=== PATIENT | female | born 1955 | race Caucasian/White ===

== ENCOUNTER → 2016-04-08 | Outpatient (CLI) | payer OTHER ==
[~2016-04-08] MED LIST: ADVIN25/60 INH; ATOR-54 PO; AZEL0.15 NAE; BISA-16 PO; BTP80 PO; BUPR-267 PO; CEFU1TAB36 PO; CLB100 PO; CMD5 PO; CYM/30 PO; GLIM4TAB2 PO; IMD/2 PO; L-ME1CAP3 PO; LEVA1.255 INH; LEVA45AE INH; LOSA1TAB PO; LPR100 PO; LPR25 PO; MAGNTAB4 PO; METF1000 PO; METO-217 PO; METO-551 PO; METO25TA3 PO; METO50TA16 PO; METO50TA7 PO; MONT1TAB3 PO; MULT-790 PO; ONDA4TAB46 PO; OXYC1TAB3 PO; POTA-335 PO; POTA-65 PO; POTA20TA16 PO; ROPI0.5T15 PO; SPRIN/30 INH; TIOTCAP INH; TRIA1SPR9 NAE; TYLER650 PO; VERA120T65 PO; WARF1TAB PO; XPNIN INH; ZNTT/150 PO; [UNRECOGNIZED DRUG - OTHER] PO
== END | disposition home or self-care (01) ==
LOC: C.LABSPEC 11:13
PROVIDERS: ATTEND Podiatrist Foot & Ankle Surgery
DX: L60.0 Ingrowing nail (principal)

== ENCOUNTER 2016-05-03 23:27 | Inpatient (IN) | payer OTHER ==
[~2016-05-03] VITALS: Ht 165.1 cm; Wt 133.6 kg
[~2016-05-03 23:27] MED LIST changes: -AZEL0.15 NAE; -BISA-16 PO; -BTP80 PO; -CEFU1TAB36 PO; -CLB100 PO; -CMD5 PO; -LEVA45AE INH; -LPR100 PO; -LPR25 PO; -METO-217 PO; -METO25TA3 PO; -METO50TA16 PO; -METO50TA7 PO; -POTA-65 PO; -POTA20TA16 PO; -SPRIN/30 INH; -TRIA1SPR9 NAE; -VERA120T65 PO; -[UNRECOGNIZED DRUG - OTHER] PO
[2016-05-03] MEDS ORDERED: KETOROLAC TROMETHAMINE 30 MG/ML VIAL IV STA (23:40)
[2016-05-03] MEDS ORDERED: SODIUM CHLORIDE 0.9% 500ML 500 ML IV STA (23:40)
[2016-05-03] MEDS ORDERED: HYDROmorphone INJ 2 MG/ML SYR/VIAL IV STA (23:40)
--- NOTE | 2016-05-03 23:41 | EMERGENCY ROOM VISIT NOTE ---
History Report prepared by Juan Antonio: Thaddeus Bender Under the Supervision of: Dr. Yumiko No D.O. First contact with patient: 23:32 Chief Complaint: FLANK PAIN Stated Complaint: FLANK PAIN/NAUSEA History of Present Illness The patient is a 60 year old female who presents to the Emergency Room with complaints of persistent severe right flank pain that started at approximately [id number] tonight. The patient notes that the pain started suddenly and radiates to the right lower quadrant of her abdomen. She denies hematuria. The patient was given 5 mg Morphine and 4 mg Zofran in the ambulance en route to the ED, which barely helped. The patient also had 5 mg Oxycodone tonight after dinner, which she is prescribed for neuropathy. The patient denies any history of kidney stones. She has never had pain like this before. She denies any recent strenuous activities. The patient notes that she has had protein in her urine for the past several days. She had a urine sample collected with [facility] earlier today with results pending. The patient denies any history of bowel obstruction. She does have a history of GERD and gastroparesis and is s/p cholecystectomy. Source of History: patient Onset: [id number] tonight Position: back (right flank) Symptom Intensity: severe Timing: other (persistent) Modifying Factors (Relieving): narcotics Associated Symptoms: + abdominal pain, No urinary symptoms Review of Systems See HPI for pertinent positives & negatives. A total of 10 systems reviewed and were otherwise negative. Past Medical & Surgical Medical Problems: (1) Asthma (2) Breast cancer (3) Degeneration of cervical intervertebral disc (4) Depressive disorder (5) Diabetes mellitus, type II (6) DVT (deep venous thrombosis) (7) Fibromyalgia (8) Gastroesophageal reflux disease (9) History of breast cancer (10) History of DVT (deep vein thrombosis) (11) Hypertension (12) Lymphedema (13) Migraine headache (14) Obstructive sleep apnea syndrome (15) Restless legs syndrome (16) Right ureteral calculus (17) Ureteral calculus of right kidney transplant Surgical Problems: (1) Status post cholecystectomy (2) Status post partial mastectomy Family History FHx: cancer FHx: diabetes FHx: heart disease FHx: hypertension Social History Smoking Status: Former Smoker Alcohol Use: none Marital Status: Housing Status: lives with significant other Occupation Status: retired Current/Historical Medications Scheduled Acetaminophen (Tylenol Arthitis Ext Rel), 1,300 MG PO QPM Atorvastatin (Lipitor), 20 MG PO HS Azelastine Hcl (Astepro), 2 SPRY MISHEL BID Celecoxib (Celebrex), 100 MG PO BID Duloxetine HCl (Cymbalta), 60 MG PO QAM Duloxetine Hcl (Cymbalta), 30 MG PO HS Fluticasone Prop/Salmeterol (Advair Diskus 250/50 60 Dose), 1 PUFF INH BID Glimepiride (Glimepiride), 4 MG PO DAILY L-Methylfolate W/ Algae-Vitami (Metanx), 1 CAP PO BID Loperamide Hcl (Imodium), 2 MG PO PRN Magnesium Chloride (Slow-Mag Tab), 3 TAB PO QAM Magnesium Chloride (Slow-Mag Tab), 2 TABS PO QPM Metformin Hcl (Glucophage), 1,000 MG PO BID Metoprolol Tartrate (Lopressor), 50 MG PO BID Montelukast Sodium (Singulair), 10 MG PO HS Multiple Vitamin (Multi-Vitamin Daily), 1 TAB PO DAILY Oxycodone Immediate Rel Tab (Roxicodone Ir), 5 MG PO BID Potassium Ext Rel (Klor-Con), 20 MEQ PO BID Ranitidine (Zantac), 1 TAB PO BID Tiotropium [place] (Spiriva Handihaler), 1 CAP INH DAILY Warfarin Sodium (Coumadin), 1 MG PO DAILY Scheduled PRN Levalbuterol Hcl (Levalbuterol), 1.25 MG INH Q4 PRN for Wheezing Levalbuterol Tartrate (Levalbuterol Tartrate Hfa), 2 PUFFS INH Q4 PRN for SOB/ Wheezing Ropinirole (Requip), 0.5 MG PO HS PRN for restless legs Allergies Coded Allergies: Codeine (Verified Allergy, Intermediate, ITCHY AND RASH, 05/04/16) Erythromycin (Verified Allergy, Intermediate, CONTINUOUS IMPROVEMENT ENGINEER STOMACH CRAMPS, ) Potassium Chloride (Verified Allergy, Intermediate, ITCHY AND RASH, ) Amitriptyline (Verified Allergy, Mild, SWELLING, 05/04/16) Sitagliptin (Verified Allergy, Mild, Swelling , 05/04/16) Doxepin (Verified Allergy, Unknown, ., 05/04/16) Gabapentin (Unverified Allergy, Unknown, swelling, 05/04/16) Hyoscyamine (Verified Allergy, Unknown, ., 05/04/16) Phenylephrine (Verified Allergy, Unknown, 05/04/16) RASH FROM HYCOMINE (CONTAINS BOTH) NOT ALLERGIC TO HYDROCODONE COMPONENT BECAUSE TAKES VICODIN AT HOME Uncoded Allergies: ADHESIVE TAPE (Allergy, Intermediate, RASH AND ITCHING, 02/03/12) TRICYCLICS (Allergy, Intermediate, SWELLING ARM AND LEGS, 02/03/12) vagisil (Allergy, Mild, reddness, 05/15/13) Physical Exam Vital Signs Date Time Temp Pulse Resp B/P Pulse Ox O2 Delivery O2 Flow Rate FiO2 05/04/16 01:51 100 20 145/82 94 Room Air 05/03/16 23:41 95 05/03/16 23:36 36.4 90 19 170/91 100 Room Air Physical Exam General: Obese female that appears extremely uncomfortable and diaphoretic. HEENT: Head - normocephalic and atraumatic Pupils are equal, round, and reactive to light. Extraocular eye muscles are intact, and sclera are anicteric. Nose - moist nasal mucosa without discharge. Mouth - moist buccal mucosa. Oropharynx is nonerythematous and there is no tonsillar exudate or edema noted. Neck: Supple; no JVD, nuchal rigidity, cervical lymphadenopathy. Heart: Tachycardic rate. Heart sounds distant secondary to body habitus. There is a normal S1 and S2 with no murmurs, clicks, or gallops appreciated. Lungs: Clear to auscultation bilaterally with no wheezes, rales, or rhonchi. Abdomen: Soft,nondistended, with good bowel sounds. There are no palpable pulsatile masses or hepatosplenomegaly. There is no guarding, rigidity, or rebound noted. Right CVA tenderness without skin lesions in that area. Extremities: No evidence of cyanosis, clubbing, or edema. There are easily palpable peripheral pulses. Skin: warm and dry with good turgor and no rashes. Medical Decision & Procedures ER Provider Diagnostic Interpretation: CT results as stated below per my review and radiologist interpretation: CT ABDOMEN & PELVIS: Comparison CT abdomen and pelvis 10/19/2011. 11 mm obstructing calculus in the proximal right ureter causing mild right hydronephrosis with perinephric edema. Few nonobstructing right renal calculi. Small nonobstructing bilateral renal cysts. Enlarged liver with hepatic steatosis. Stable borderline splenomegaly. Gallbladder is surgically absent. No free air. No free fluid. Bowel is normal caliber. Appendix is normal. Radiologist Pedro Albright MD Laboratory Results 05/03/16 23:57 Red Blood Count 4.05, Mean Corpuscular Volume 92.6, Mean Corpuscular Hemoglobin 30.1, Mean Corpuscular Hemoglobin Concent 32.5, Mean Platelet Volume 10.6, Neutrophils (%) (Auto) 79.1, Lymphocytes (%) (Auto) 13.6, Monocytes (%) (Auto) 4.8, Eosinophils (%) (Auto) 1.0, Basophils (%) (Auto) 0.4, Neutrophils # (Auto) 6.48, Lymphocytes # (Auto) 1.11, Monocytes # (Auto) 0.39, Eosinophils # (Auto) 0.08, Basophils # (Auto) 0.03 05/03/16 23:57 Test 05/03/16 23:57 05/04/16 02:05 White Blood Count 8.18 K/uL (4.8-10.8) Red Blood Count 4.05 M/uL (4.2-5.4) Hemoglobin 12.2 g/dL (12.0-16.0) Hematocrit 37.5 % (37-47) Mean Corpuscular Volume 92.6 fL (80-100) Mean Corpuscular Hemoglobin 30.1 pg (25-34) Mean Corpuscular Hemoglobin Concent 32.5 g/dl (32-36) Platelet Count 252 K/uL (130-400) Mean Platelet Volume 10.6 fL (7.4-10.4) Neutrophils (%) (Auto) 79.1 % Lymphocytes (%) (Auto) 13.6 % Monocytes (%) (Auto) 4.8 % Eosinophils (%) (Auto) 1.0 % Basophils (%) (Auto) 0.4 % Neutrophils # (Auto) 6.48 K/uL (1.4-6.5) Lymphocytes # (Auto) 1.11 K/uL (1.2-3.4) Monocytes # (Auto) 0.39 K/uL (0.11-0.59) Eosinophils # (Auto) 0.08 K/uL (0-0.5) Basophils # (Auto) 0.03 K/uL (0-0.2) RDW Standard Deviation 51.5 fL (36.4-46.3) RDW Coefficient of Variation 15.2 % (11.5-14.5) Immature Granulocyte % (Auto) 1.1 % Immature Granulocyte # (Auto) 0.09 K/uL (0.00-0.02) Prothrombin Time 10.3 SECONDS (9.0-12.0) Prothromb Time International Ratio 1.0 (0.9-1.1) Activated Partial Thromboplast Time 25.4 SECONDS (21.0-31.0) Partial Thromboplastin Ratio 1.0 Anion Gap 11.0 mmol/L (3-11) Est Creatinine Clear Calc Drug Dose 70.2 ml/min Estimated GFR () 57.3 Estimated GFR (Non- 49.4 BUN/Creatinine Ratio 14.1 (10-20) Calcium Level 9.6 mg/dl (8.5-10.1) Urine Color YELLOW Urine Appearance SL CLOUDY (CLEAR) Urine pH 5.5 (4.5-7.5) Urine Specific [place] >= 1.030 (1.000-1.030) Urine Protein TRACE (NEG) Urine Glucose (UA) NEG (NEG) Urine Ketones TRACE (NEG) Urine Occult Blood TRACE (NEG) Urine Nitrite NEG (NEG) Urine Bilirubin NEG (NEG) Urine Urobilinogen NEG (NEG) Urine Leukocyte Esterase SMALL (NEG) Urine RBC 0-4 /hpf (0-4) Urine WBC 10-30 /hpf (0-5) Urine Epithelial Cells 20-30 /lpf (0-5) Urine Bacteria NEG (NEG) Laboratory results per my review. Medications Administered Medications (Trade) Dose Ordered Sig/Tiburcio Route Start Time Stop Time Status Last Admin Dose Admin Hydromorphone HCl (Dilaudid Inj) 2 mg NOW STAT IV 05/03/16 23:40 05/03/16 23:41 DC 05/03/16 23:45 2 MG Ketorolac Tromethamine 30 mg 30 mg NOW STAT IV 05/03/16 23:40 05/03/16 23:41 DC 05/03/16 23:46 30 MG Sodium Chloride 500 ml @ 999 mls/hr Q31M STAT IV 05/03/16 23:40 05/04/16 00:10 DC 05/03/16 23:45 999 MLS/HR Sodium Chloride (Nss 1000ml) 1,000 ml @ 250 mls/hr Q4H STAT IV 05/04/16 02:20 05/04/16 06:13 DC 05/04/16 02:56 250 MLS/HR Hydromorphone HCl (Dilaudid Inj) 1 mg NOW STAT IV 05/04/16 03:01 05/04/16 03:02 DC 05/04/16 03:06 1 MG Acetaminophen (Tylenol Tab) 650 mg Q4H PRN PO 05/04/16 04:00 06/03/16 03:59 05/04/16 05:44 650 MG Procedure Medications administered include NSS IV, Toradol IV, Dilaudid IV. ED Course 2334: Past medical records reviewed. The patient was evaluated in room B5. A complete history and physical exam was performed. IV lock was established. Labs were drawn as above. 2340: NSS 500 ml @ 999 mls/hr, Toradol 30 mg IV, Dilaudid 2 mg IV. She will go for CT scan of the abdomen/pelvis. 0050: The patient is currently pain free. She just got back from CT scan. 0154: Checked on the patient. 0220: NSS 1000 ml @ 250 mls/hr. 0301: Dilaudid 1 mg IV. 0312: Spoke with the patient's . I reviewed the results of the labs and CT scan with the patient. 0315: Discussed the case with Dr. Leslie, [facility]. The patient will be evaluated. 0328: Updated the patient. She understands and agrees with the plan. Medical Decision The patient is a 60 year old female who presents to the ED with right flank pain. Differential diagnosis includes pyelonephritis, ureteral colic, infected kidney stone, colitis, obstructive uropathy. Laboratory interpretation: no leukocytosis, stable H&H, normal renal function with creatinine 1.2, glucose 216. Urine contained trace ketones and blood, small leukocyte esterase, 10-30 white blood cells, negative bacteria. This is a 60-year-old female patient presents to the emergency department with severe right flank pain. CT scan shows evidence of a 11 mm right-sided stone. The patient had been previously followed by nephrology for proteinuria. Catheterized urine specimen was not convincing for urinary tract infection. The patient required multiple doses of IV analgesia. I discussed the case with the [facility] Hospitalist and they will evaluate for further management. Consults Time Called: [phone] Consulting Physician[facility] Returned Call: [phone]: [facility] The patient will be evaluated. Impression Primary Impression: Calculus of proximal right ureter Scribe Attestation The scribe's documentation has been prepared under my direction and personally reviewed by me in its entirety. I confirm that the note above accurately reflects all work, treatment, procedures, and medical decision making performed by me. Departure Information Dispostion Being Evaluated By Hospitalist Referrals No Doctor, Assigned (PCP) Patient Instructions My [facility]
[2016-05-03] MEDS ORDERED: CLB100 PO (23:59)
[2016-05-04] VITALS (12 sets, daily range): BP systolic 110–168; BP diastolic 59–82; PULSE 92–137; TEMP 36.6–37.1; O2SAT 91–95; Ht 165.1 cm; Wt 133.6 kg
[2016-05-04] MEDS ORDERED: MAGNTAB4 PO (00:01)
[2016-05-04] MEDS ORDERED: LEVA45AE INH (00:03)
[2016-05-04] MEDS ORDERED: POTA20TA16 PO (00:04)
[2016-05-04] MEDS ORDERED: SPRIN/30 INH (00:06)
[2016-05-04] MEDS ORDERED: AZEL0.15 NAE (00:08)
[2016-05-04 00:16] LABS: BASO % 0.4 %; BASO ABS # 0.03 K/uL (0-0.2); COMPLETE YES; HEMATOCRIT 37.5 % (37-47); IG% 1.1 %; LYMPH % 13.6 %; LYMPH ABS # 1.11 K/uL (1.2-3.4); MEAN CELL VOLUME 92.6 fL (80-100); MEAN CORPUSCULAR HEMOGLOBIN 30.1 pg (25-34); MEAN CORPUSCULAR HGB CONC 32.5 g/dl (32-36); MEAN PLATELET VOLUME 10.6 fL (7.4-10.4); MONO % 4.8 %; NEUT % 79.1 %; PLATELET COUNT 252 K/uL (130-400); RED BLOOD COUNT 4.05 M/uL (4.2-5.4); WHITE BLOOD COUNT 8.18 K/uL (4.8-10.8)
[2016-05-04 00:29] LABS: BUN/CREATININE RATIO 14.1 (10-20); CALCIUM 9.6 mg/dl (8.5-10.1); CREATININE 1.2 mg/dl (0.60-1.20); POTASSIUM 4.3 mmol/L (3.5-5.1)
[2016-05-04 02:15] LABS: MANUAL MICROSCOPIC REQUIRED? YES; URINE APPEARANCE SL CLOUDY (CLEAR); URINE COLOR YELLOW; URINE NITRITE NEG (NEG); URINE PH 5.5 (4.5-7.5); URINE SPECIFIC GRAVITY >= 1.030 (1.000-1.030); UROBILINOGEN NEG (NEG)
[2016-05-04] MEDS ORDERED: SODIUM CHLORIDE 0.9% 1000ML 1,000 ML IV STA (02:20)
[2016-05-04 02:21] LABS: REVIEW REQ? NO
[2016-05-04 02:22] LABS: URINE BILIRUBIN NEG (NEG)
[2016-05-04 02:24] LABS: URINE BACTERIA NEG (NEG); URINE RBC 0-4 /hpf (0-4)
[2016-05-04] MEDS ORDERED: HYDROmorphone INJ 1 MG/ML SYR IV STA (03:01)
[2016-05-04 03:31] LABS: PROTHROMBIN TIME (PATIENT) 10.3 SECONDS (9.0-12.0)
[2016-05-04] MEDS ORDERED: DEXTROSE 50% 50 ML SYR IV PRN (04:00)
[2016-05-04] MEDS ORDERED: GLUCOSE 10 TABS/TUBE PO PRN (04:00)
[2016-05-04] MEDS ORDERED: GLUCOSE 40% GEL 15 GM TUBE PO PRN (04:00)
[2016-05-04] MEDS ORDERED: GLUCAGON FOR INJ 1 MG VIAL SQ PRN (04:00)
[2016-05-04] MEDS ORDERED: ROPINIROLE HCL 1 MG TAB PO PRN (04:15)
[2016-05-04] MEDS ORDERED: IV FLUIDS COMPLETED PRN ×2 (04:15→05:15)
--- NOTE | 2016-05-04 04:18 | History and Physical ---
History & Physical Date & Time of Service: May 04, 2016 at 04:05 Chief Complaint: Flank Pain/Nausea Primary Care Physician: Hortensia Crane M.D. History of Present Illness Source: patient 60 yoF with acute onset of nausea and R flank pain earlier this evening, found to have an 11mm obstructing calculus in R ureter. She describes nausea without vomiting and had severe R flank pain that wrapped around her side and down into her groin area. She denies any gross blood, and was recently being worked up by Dr. Joseph for proteinuria. She denies a history of nephrolithiasis in past. Past Medical/Surgical History Medical Problems: (1) Asthma Status: Chronic (2) Breast cancer Permanent Comment: Abnormal left breast mammogram 07/24/2010 Ultrasound-guided biopsy with finding of invasive adenocarcinoma Estrogen receptor negative, progesterone receptor negative, HER-2/mario negative Family history with genetic testing positive for BRCA1 mutation Status post bilateral mastectomies left breast stage pT3 pN2a M0 Immediate breast reconstruction with bilateral tissue expanders Removal of left tissue dental manager due to infection November 2010 Removal of right breast tissue dental manager due to infection December 2010 Status post chemotherapy with TAC Status post completion of radiation therapy 09/15/2011 received 6120 cGy Status: Resolved (3) Degeneration of cervical intervertebral disc Status: Chronic (4) Depressive disorder Status: Chronic (5) Diabetes mellitus, type II Status: Chronic (6) DVT (deep venous thrombosis) Status: Chronic (7) Fibromyalgia Status: Chronic (8) Gastroesophageal reflux disease Status: Chronic (9) History of breast cancer Status: Chronic (10) History of DVT (deep vein thrombosis) Status: Chronic (11) Hypertension Status: Chronic (12) Lymphedema Status: Chronic (13) Migraine headache Status: Chronic (14) Obstructive sleep apnea syndrome Status: Chronic (15) Restless legs syndrome Status: Chronic Surgical Problems: (1) Status post cholecystectomy Status: Chronic (2) Status post partial mastectomy Status: Chronic Family History FHx: cancer FHx: diabetes FHx: heart disease FHx: hypertension Social History Smoking Status: Former Smoker Smokeless Tobacco Use: No Alcohol Use: none Drug Use: none Marital Status: Housing status: lives with family Occupational Status: retired Immunizations History of Influenza Vaccine: Yes Influenza Vaccine Date: Nov 11, 2015 History of Tetanus Vaccine?: Yes Tetanus Immunization Date: Sep 12, 2007 History of Pneumococcal: Yes Pneumococcal Date: Nov 10, 2006 History of Hepatitis B Vaccine: Yes Hepatitis Immunization Date: Aug 24, 2013 Multi-Drug Resistant Organisms History of MDRO: No Allergies Coded Allergies: Codeine (Verified Allergy, Intermediate, ITCHY AND RASH, 05/04/16) Erythromycin (Verified Allergy, Intermediate, SERVICE CLERK STOMACH CRAMPS, ) Potassium Chloride (Verified Allergy, Intermediate, ITCHY AND RASH, ) Amitriptyline (Verified Allergy, Mild, SWELLING, 05/04/16) Sitagliptin (Verified Allergy, Mild, Swelling , 05/04/16) Doxepin (Verified Allergy, Unknown, ., 05/04/16) Gabapentin (Unverified Allergy, Unknown, swelling, 05/04/16) Hyoscyamine (Verified Allergy, Unknown, ., 05/04/16) Phenylephrine (Verified Allergy, Unknown, 05/04/16) RASH FROM HYCOMINE (CONTAINS BOTH) NOT ALLERGIC TO HYDROCODONE COMPONENT BECAUSE TAKES VICODIN AT HOME Uncoded Allergies: ADHESIVE TAPE (Allergy, Intermediate, RASH AND ITCHING, 02/03/12) TRICYCLICS (Allergy, Intermediate, SWELLING ARM AND LEGS, 02/03/12) vagisil (Allergy, Mild, reddness, 05/15/13) Home Medications Scheduled Acetaminophen (Tylenol Arthitis Ext Rel), 1,300 MG PO QPM Atorvastatin (Lipitor), 20 MG PO HS Azelastine Hcl (Astepro), 2 SPRY MISHEL BID Celecoxib (Celebrex), 100 MG PO BID Duloxetine HCl (Cymbalta), 60 MG PO QAM Duloxetine Hcl (Cymbalta), 30 MG PO HS Fluticasone Prop/Salmeterol (Advair Diskus 250/50 60 Dose), 1 PUFF INH BID Glimepiride (Glimepiride), 4 MG PO DAILY L-Methylfolate W/ Algae-Vitami (Metanx), 1 CAP PO BID Loperamide Hcl (Imodium), 2 MG PO PRN Magnesium Chloride (Slow-Mag Tab), 3 TAB PO QAM Magnesium Chloride (Slow-Mag Tab), 2 TABS PO QPM Metformin Hcl (Glucophage), 1,000 MG PO BID Metoprolol Tartrate (Lopressor), 50 MG PO BID Montelukast Sodium (Singulair), 10 MG PO HS Multiple Vitamin (Multi-Vitamin Daily), 1 TAB PO DAILY Oxycodone Immediate Rel Tab (Roxicodone Ir), 5 MG PO BID Potassium Ext Rel (Klor-Con), 20 MEQ PO BID Ranitidine (Zantac), 1 TAB PO BID Tiotropium [place] (Spiriva Handihaler), 1 CAP INH DAILY Warfarin Sodium (Coumadin), 1 MG PO DAILY Scheduled PRN Levalbuterol Hcl (Levalbuterol), 1.25 MG INH Q4 PRN for Wheezing Levalbuterol Tartrate (Levalbuterol Tartrate Hfa), 2 PUFFS INH Q4 PRN for SOB/ Wheezing Ropinirole (Requip), 0.5 MG PO HS PRN for restless legs Review of Systems All reviewed and negative except as indicated in HPI Physical Exam Vital Signs Date Time Temp Pulse Resp B/P Pulse Ox O2 Delivery O2 Flow Rate FiO2 05/04/16 01:51 100 20 145/82 94 Room Air 05/03/16 23:41 95 05/03/16 23:36 36.4 90 19 170/91 100 Room Air GEN: WNWD, in no acute distress, alert and appropriate HEENT: NC/AT, PERRL, normal sclerae, mucous membranes are dry CARDIO: tachy rate, S1/2 heard without m/g/r LUNGS: CTA bilaterally, no crackles, rales or wheezes, good diaphragmatic excursion ABD: soft, min tender on the R flank, non-distended, no rebound or guarding, min CVA tenderness on the right EXTREMITY: RP and DP palpable 2+ bilat, no LE swelling or edema, extremities are warm and well-perfused NEURO: CN 2-12 grossly intact, sensation intact throughout MUSC: moves all extremities equally, no gross focal deficits. SKIN: warm and dry Diagnostics Laboratory Results Results Past 24 Hours Test 05/03/16 23:57 05/04/16 02:05 Range/Units White Blood Count 8.18 4.8-10.8 K/uL Red Blood Count 4.05 4.2-5.4 M/uL Hemoglobin 12.2 12.0-16.0 g/dL Hematocrit 37.5 37-47 % Mean Corpuscular Volume 92.6 80-100 fL Mean Corpuscular Hemoglobin 30.1 25-34 pg Mean Corpuscular Hemoglobin Concent 32.5 32-36 g/dl Platelet Count 252 130-400 K/uL Mean Platelet Volume 10.6 7.4-10.4 fL Neutrophils (%) (Auto) 79.1 % Lymphocytes (%) (Auto) 13.6 % Monocytes (%) (Auto) 4.8 % Eosinophils (%) (Auto) 1.0 % Basophils (%) (Auto) 0.4 % Neutrophils # (Auto) 6.48 1.4-6.5 K/uL Lymphocytes # (Auto) 1.11 1.2-3.4 K/uL Monocytes # (Auto) 0.39 0.11-0.59 K/uL Eosinophils # (Auto) 0.08 0-0.5 K/uL Basophils # (Auto) 0.03 0-0.2 K/uL RDW Standard Deviation 51.5 36.4-46.3 fL RDW Coefficient of Variation 15.2 11.5-14.5 % Immature Granulocyte % (Auto) 1.1 % Immature Granulocyte # (Auto) 0.09 0.00-0.02 K/uL Prothrombin Time 10.3 9.0-12.0 SECONDS Prothromb Time International Ratio 1.0 0.9-1.1 Activated Partial Thromboplast Time 25.4 21.0-31.0 SECONDS Partial Thromboplastin Ratio 1.0 Sodium Level 137 136-145 mmol/L Potassium Level 4.3 3.5-5.1 mmol/L Chloride Level 104 98-107 mmol/L Carbon Dioxide Level 22 21-32 mmol/L Anion Gap 11.0 3-11 mmol/L Blood Urea Nitrogen 17 7-18 mg/dl Creatinine 1.20 0.60-1.20 mg/dl Est Creatinine Clear Calc Drug Dose 70.2 ml/min Estimated GFR () 57.3 Estimated GFR (Non- 49.4 BUN/Creatinine Ratio 14.1 10-20 Random Glucose 216 70-99 mg/dl Calcium Level 9.6 8.5-10.1 mg/dl Urine Color YELLOW Urine Appearance SL CLOUDY CLEAR Urine pH 5.5 4.5-7.5 Urine Specific [place] >= 1.030 1.000-1.030 Urine Protein TRACE NEG Urine Glucose (UA) NEG NEG Urine Ketones TRACE NEG Urine Occult Blood TRACE NEG Urine Nitrite NEG NEG Urine Bilirubin NEG NEG Urine Urobilinogen NEG NEG Urine Leukocyte Esterase SMALL NEG Urine RBC 0-4 0-4 /hpf Urine WBC 10-30 0-5 /hpf Urine Epithelial Cells 20-30 0-5 /lpf Urine Bacteria NEG NEG Microbiology Results 05/04/16 Urine Culture, Received Pending Diagnostic Radiology CT A/P: 11mm calculus in prox R ureter, mild R hydro with perinephric edema. EKG Admission EKG: ST 117 Impression Assessment and Plan 60 yo F with acute onset of R flank pain 2/2 obstructing R ureteral stone. 1. R ureteral stone-cont IVF and supportive care with pain control and antiemetics as needed. Flomax started. Because of the size of the stone, will keep NPO and ask Urology to see her. Strain all urine. Urine doesn't appear infected and patient is having no infectious symptoms at this point so will defer abx. 2. DMII-ISS/Lantus/inpatient glycemic pharmacist consult 3. PSVT in preparation for MAZE procedure as outpatient-sees Dr. Hogan. Takes BB 4. Obesity 5. LORE-CPAP ordered 6. Depression-cont home meds 7. h/o DVT with port -on coumadin 1mg daily with no goal INR 8. GERD 9. Fibromyalgia-cont home meds 10. chronic lyte abnormalities 11. HTN-controlled, cont home meds 12. Migraines 13. RLS DVT proph: coumadin Full Code Dispo to floor Minoo Leslie, DO Hospitalist Level of Care Med/Surg VTE Prophylaxis VTE Risk Assessment Done? Y/N: Yes Risk Level: Moderate Given or contraindicated: Warfarin (Coumadin)
[2016-05-04] MEDS ORDERED: PHARMACY GLYCEMIC MGMT CONSULT PRN (04:35)
[2016-05-04] MEDS: ACETAMINOPHEN 325 MG TAB PO PRN ×4 (05:44→23:24)
[2016-05-04] MEDS: SODIUM CHLORIDE 0.9% 1000ML 1,000 ML IV SCH ×3 (06:00→19:07)
[2016-05-04] MEDS ORDERED: INSULIN ASPART 100 UNITS/ML 3 ML PEN SC SCH (06:30)
[2016-05-04] MEDS ORDERED: NURSING VERBAL MED ORDER ONE ×2 (06:45→21:15)
--- NOTE | 2016-05-04 07:44 | DIAGNOSTIC IMAGING REPORT ---
CT SCAN OF THE ABDOMEN AND PELVIS WITHOUT IV CONTRAST CLINICAL HISTORY: Right flank pain. COMPARISON STUDY: Abdominal CT dated 10/19/2011. TECHNIQUE: CT scan of the abdomen and pelvis is performed from the lung bases to the proximal femora. Images are reviewed in the axial, sagittal, and coronal planes. IV contrast was not administered for this examination as per the referring clinician. The examination is degraded by large body habitus, and by streak artifact from the body wall abutting the CT gantry. Automated dose control exposure was utilized. CT DOSE: 1933.45 mGy.cm FINDINGS: Lung bases: The heart is top normal in size and without pericardial effusion. The lung bases are clear noting bibasilar atelectasis. There is a small hiatal hernia. Liver: The unenhanced liver is enlarged, measuring 23 cm in length. The liver demonstrates diffusely diminished attenuation consistent with severe hepatic steatosis. Foci of geographic sparing are observed. There is no intrahepatic biliary ductal dilatation. Gallbladder: Surgically absent noting clips in the gallbladder fossa. Spleen: The spleen is enlarged, measuring 14.4 cm in length. Pancreas: The unenhanced pancreas is mildly atrophic and grossly unremarkable. Adrenal glands: Unremarkable. Kidneys: The unenhanced kidneys demonstrate mild cortical atrophy. There is a 1.9 cm obstructing calculus in the right proximal ureter seen on axial image #244 at the level of L4-L5. This causes moderate right hydroureteronephrosis, and there is significant associated right-sided perinephric stranding as well as trace perinephric fluid. There are 2 additional nonobstructing right renal calculi which measure up to 11 mm. No left renal calculi are identified. There is no left-sided hydronephrosis. A 1.9 cm exophytic cyst arises from left upper pole. 3.3 cm and 2.0 cm cyst are noted in the right kidney. Additional cortical hypodensities also likely represent cysts but are too small for definitive characterization. A retroaortic left renal vein is incidentally noted. Abdominal vasculature: The abdominal aorta is normal in course and caliber noting mild atherosclerotic calcification. Bowel: The small bowel and colon are normal in course and caliber. There is mild colonic diverticulosis without CT evidence of acute diverticulitis. Pill fragments are noted throughout the small bowel. The appendix is well-visualized and normal. Peritoneum: There is no intraperitoneal free air or abdominal ascites. Lymphadenopathy: None. Pelvic viscera: The bladder is largely decompressed and grossly unremarkable. The uterus and adnexa are normal as imaged. Skeletal structures: The skeletal structures are osteopenic. No lytic or blastic lesions are seen. There is mild to moderate lumbosacral spondylosis. Degenerative change is also seen in the sacroiliac joints and hips. IMPRESSION: 1. There is a 1.9 cm obstructing calculus in the right proximal ureter. This causes moderate right-sided hydronephrosis. 2. There are at least 2 additional nonobstructing right renal calculi. 3. Hepatomegaly and severe hepatic steatosis. 4. Splenomegaly. 5. Mild colonic diverticulosis without CT evidence of acute diverticulitis. 6. Additional changes as detailed above. Electronically signed by: Rodolfo Lentz M.D. 05/04/2016 7:43 AM Dictated Date/Time: 05/04/2016 7:35 AM
[2016-05-04] MEDS: DULOXETINE (CYMBALTA) 30 MG CAP PO SCH ×2 (08:39→21:14)
[2016-05-04] MEDS: CeleBREX 100 MG CAP PO SCH ×2 (08:39→21:15)
[2016-05-04] MEDS: MULTIVITAMIN TAB PO SCH (08:40)
[2016-05-04] MEDS: METOPROLOL TARTRATE 50 MG TAB PO SCH ×2 (08:40→21:17)
[2016-05-04] MEDS: TAMSULOSIN HCL 0.4 MG CAP PO SCH (08:40)
[2016-05-04] MEDS: RANITIDINE HCL 150 MG TAB PO SCH ×2 (08:41→21:17)
[2016-05-04] MEDS: FLUTICASONE/SALMETEROL 250/50 (ADVAIR) 14 PUFF/1 INHALER INH SCH ×2 (08:41→21:13)
[2016-05-04] MEDS: MAGNESIUM CHLORIDE 64MG DELAYED REL TAB PO SCH ×2 (08:41→21:16)
[2016-05-04] MEDS: TIOTROPIUM BROMIDE 5 PUFF/90 MCG INH INH SCH (08:42)
--- NOTE | 2016-05-04 08:44 | Pharmacy Progress Note ---
Glycemic Control Intl Consult Date of Service May 04, 2016. Scope Glycemic Pharmacist consulted by Dr Leslie on 05/04/16 for glycemic control and to write orders per [facility] inpatient glycemic control protocol Objective Weight (Kilograms): 134.800 Accuchecks BSG (last 24hrs): Test 05/03/16 23:57 05/04/16 06:34 05/04/16 07:25 Random Glucose 216 mg/dl (70-99) Bedside Glucose 152 mg/dl (70-90) 149 mg/dl (70-90) Laboratory Data (last 24hrs) Test 05/03/16 23:57 Anion Gap 11.0 mmol/L BUN/Creatinine Ratio 14.1 Blood Urea Nitrogen 17 mg/dl Creatinine 1.20 mg/dl Potassium Level 4.3 mmol/L Sodium Level 137 mmol/L White Blood Count 8.18 K/uL Red Blood Count 4.05 M/uL Hemoglobin 12.2 g/dL Hematocrit 37.5 % Mean Corpuscular Volume 92.6 fL Mean Corpuscular Hemoglobin 30.1 pg Mean Corpuscular Hemoglobin Concent 32.5 g/dl Platelet Count 252 K/uL Mean Platelet Volume 10.6 fL Neutrophils (%) (Auto) 79.1 % Lymphocytes (%) (Auto) 13.6 % Monocytes (%) (Auto) 4.8 % Eosinophils (%) (Auto) 1.0 % Basophils (%) (Auto) 0.4 % Neutrophils # (Auto) 6.48 K/uL Lymphocytes # (Auto) 1.11 K/uL Monocytes # (Auto) 0.39 K/uL Eosinophils # (Auto) 0.08 K/uL Basophils # (Auto) 0.03 K/uL Recent Pertinent Medications Outpatient Anti-diabetic Regimen: * glimepiride 4mg PO daily * metformin 1000mg PO twice daily * A1c = unknown at time of initial consult The patient is currently receiving: * Basal insulin: Lantus 10 units every 12 hours * Correctional Insulin: Novolog Correction per scale ACHS Goal Range: Low 100 mg/dL - High 140 mg/dL Correction Factor: 30 mg/dL/unit * Prandial insulin: Per carb ratio of 1 unit per 10 grams CHO consumed * Oral Agents: hold while acutely ill Risk Factors for Insulin Resistance: * Steroids: none * Infection: none * Pressors: none * IVF: NSS * Recent Surgery: questionable, patient with right ureteral stone and Urology consulted * Diet: NPO Assessment & Plan ASSESSMENT: * ADA & AACE recommend a goal blood sugar range 140-180 mg/dl for the majority of critically ill & non-critically ill patients. However, more stringent targets may be selected in individual cases. 05/04/16 * 60 y/o type 2 diabetic who uses oral medications as an outpatient with an unknown degree of control as A1c is outdated. * A1c on order with AM labs 05/05 * holding oral medications while acutely ill * Initiating basal/bolus insulin regimen * weight based dosing implemented * Hold AM Lantus secondary to BSG near goal and NPO status * NovoLog parameters weight-based as mentioned * goal range slightly lower than ADA recommendations based on age and lack of basal insulin this AM PLAN FOR INPATIENT GLYCEMIC CONTROL: * Lantus 10 units SQ BID * hold AM dose per consult for NPO status * NovoLog SQ AC/HS or q6H when NPO * Correction factor: 30mg/dL/unit * Carb ratio: 1 unit per 10g of CHO consumed * Goal range: 100-140mg/dL * Hold oral diabetic medications at this time * A1c ordered with AM labs 05/05 * added to discharge instructions RECOMMENDATIONS FOR DISCHARGE: * Will depend on A1c but hopefully can continue home regimen at discharge. * Please note that the plan above was derived based on current level of insulin resistance and hospital stress. These recommendations are appropriate for inpatient admission only. Plan of care upon discharge will need to be reassessed to avoid potential outpatient hypo/hyperglycemia. Thank you.
[2016-05-04] MEDS: INSULIN ASPART 100 UNITS/ML 3 ML PEN SC SCH ×4 (08:46→21:30)
[2016-05-04] MEDS ORDERED: TIOTROPIUM BROMIDE 5 PUFF/90 MCG INH INH SCH (09:00)
[2016-05-04] MEDS ORDERED: INSULIN GLARGINE SOLOSTAR 100 UNITS/ML 3 ML PEN SC SCH (09:00)
[2016-05-04] MEDS: ONDANSETRON INJ 2 MG/ML 2 ML VIAL IV PRN ×2 (11:14→19:41)
[2016-05-04] MEDS: CEFTRIAXONE SOD INJ 1 GM in DEXTROSE 5% ADD-VANTAGE 50ML 50 ML IV SCH (12:27)
[2016-05-04] MEDS ORDERED: PROPOFOL IV EMULSION 10 MG/ML 20 ML VIAL IV ONE (15:01)
[2016-05-04] MEDS ORDERED: MIDAZOLAM HCL 1 MG/ML 2ML VIAL ONE (15:01)
[2016-05-04] MEDS ORDERED: ONDANSETRON INJ 2 MG/ML 2 ML VIAL ONE (15:01)
[2016-05-04] MEDS ORDERED: LIDOCAINE HCL 2% 2 ML VIAL (20MG/ML) ONE (15:01)
[2016-05-04] MEDS ORDERED: FENTANYL CITRATE INJ 50 MCG/1 ML 2 ML VIAL ONE (15:01)
--- NOTE | 2016-05-04 16:31 | Urology Consultation ---
History General Date of Service: May 04, 2016. Chief Complaint: right stone Primary Care Physician: Hortensia Crane M.D. Pt seen a urologist before?: No History of Present Illness I am asked by Dr Claudia Leslie to evaluate and treat patient for stone. She has right renal colic for one day. She had associated nausea no emesis. No fever. She has had stone before. Ct showed long thin large right upper ureteral stone with hydro and a medium right renal stone x 2. She has adequate pain control on parenteral narcotics. Imaging Imaging: CT Laboratory Results Past 24 Hours Test 05/03/16 23:57 05/04/16 02:05 05/04/16 06:34 05/04/16 07:25 Range/Units White Blood Count 8.18 4.8-10.8 K/uL Red Blood Count 4.05 4.2-5.4 M/uL Hemoglobin 12.2 12.0-16.0 g/dL Hematocrit 37.5 37-47 % Mean Corpuscular Volume 92.6 80-100 fL Mean Corpuscular Hemoglobin 30.1 25-34 pg Mean Corpuscular Hemoglobin Concent 32.5 32-36 g/dl Platelet Count 252 130-400 K/uL Mean Platelet Volume 10.6 7.4-10.4 fL Neutrophils (%) (Auto) 79.1 % Lymphocytes (%) (Auto) 13.6 % Monocytes (%) (Auto) 4.8 % Eosinophils (%) (Auto) 1.0 % Basophils (%) (Auto) 0.4 % Neutrophils # (Auto) 6.48 1.4-6.5 K/uL Lymphocytes # (Auto) 1.11 1.2-3.4 K/uL Monocytes # (Auto) 0.39 0.11-0.59 K/uL Eosinophils # (Auto) 0.08 0-0.5 K/uL Basophils # (Auto) 0.03 0-0.2 K/uL RDW Standard Deviation 51.5 36.4-46.3 fL RDW Coefficient of Variation 15.2 11.5-14.5 % Immature Granulocyte % (Auto) 1.1 % Immature Granulocyte # (Auto) 0.09 0.00-0.02 K/uL Prothrombin Time 10.3 9.0-12.0 SECONDS Prothromb Time International Ratio 1.0 0.9-1.1 Activated Partial Thromboplast Time 25.4 21.0-31.0 SECONDS Partial Thromboplastin Ratio 1.0 Sodium Level 137 136-145 mmol/L Potassium Level 4.3 3.5-5.1 mmol/L Chloride Level 104 98-107 mmol/L Carbon Dioxide Level 22 21-32 mmol/L Anion Gap 11.0 3-11 mmol/L Blood Urea Nitrogen 17 7-18 mg/dl Creatinine 1.20 0.60-1.20 mg/dl Est Creatinine Clear Calc Drug Dose 70.2 ml/min Estimated GFR () 57.3 Estimated GFR (Non- 49.4 BUN/Creatinine Ratio 14.1 10-20 Random Glucose 216 70-99 mg/dl Calcium Level 9.6 8.5-10.1 mg/dl Urine Color YELLOW Urine Appearance SL CLOUDY CLEAR Urine pH 5.5 4.5-7.5 Urine Specific [place] >= 1.030 1.000-1.030 Urine Protein TRACE NEG Urine Glucose (UA) NEG NEG Urine Ketones TRACE NEG Urine Occult Blood TRACE NEG Urine Nitrite NEG NEG Urine Bilirubin NEG NEG Urine Urobilinogen NEG NEG Urine Leukocyte Esterase SMALL NEG Urine RBC 0-4 0-4 /hpf Urine WBC 10-30 0-5 /hpf Urine Epithelial Cells 20-30 0-5 /lpf Urine Bacteria NEG NEG Bedside Glucose 152 149 70-90 mg/dl Test 05/04/16 09:32 05/04/16 11:21 Range/Units Bedside Glucose 155 70-90 mg/dl Microbiology Results 05/04/16 Urine Culture, Received Pending Labs were reviewed and are within normal limits unless listed below. Labs are available in the chart and at [facility] Problem List Medical Problems: (1) Calculus of proximal right ureter Status: Acute Past History cancer - breast, chronic back pain, deep vein thrombosis, depression, diabetes, fibromyalgia, GERD, kidney stones Past Surgical History: other (partial mastectomy, a port, lap cchole) Family History FHx: cancer FHx: diabetes FHx: heart disease FHx: hypertension Social History Hx Tobacco Use In Past Year?: No Smoking: quit greater than 1 year Alcohol: never Marital status: Housing status: lives with family Occupation status: retired Immunizations History of Influenza Vaccine: Yes Influenza Vaccine Date: Nov 11, 2015 History of Tetanus Vaccine?: Yes Tetanus Immunization Date: Sep 12, 2007 History of Pneumococcal: Yes Pneumococcal Date: Nov 10, 2006 History of Hepatitis B Vaccine: Yes Hepatitis Immunization Date: Aug 24, 2013 History of MDRO No Allergies Coded Allergies: Codeine (Verified Allergy, Intermediate, ITCHY AND RASH, 05/04/16) Erythromycin (Verified Allergy, Intermediate, [employer] STOMACH CRAMPS, ) Potassium Chloride (Verified Allergy, Intermediate, ITCHY AND RASH, ) Amitriptyline (Verified Allergy, Mild, SWELLING, 05/04/16) Sitagliptin (Verified Allergy, Mild, Swelling , 05/04/16) Doxepin (Verified Allergy, Unknown, ., 05/04/16) Gabapentin (Unverified Allergy, Unknown, swelling, 05/04/16) Hyoscyamine (Verified Allergy, Unknown, ., 05/04/16) Uncoded Allergies: ADHESIVE TAPE (Allergy, Intermediate, RASH AND ITCHING, 02/03/12) TRICYCLICS (Allergy, Intermediate, SWELLING ARM AND LEGS, 02/03/12) vagisil (Allergy, Mild, reddness, 05/15/13) Medications Home Medications: Home Meds and Scripts Medications Dose Route/Sig Max Daily Dose Days Date Category Astepro (Azelastine Hcl) 0.15 % Spr 2 [place] MISHEL BID 30 05/04/16 Reported Spiriva Handihaler (Tiotropium [place]) 30 Puff/540 Mcg Aerp 1 Cap INH DAILY 05/04/16 Reported Klor-Con (Potassium Chloride) 20 Meq Tabcr 20 Meq PO BID 05/04/16 Reported Levalbuterol Tartrate Hfa (Levalbuterol Tartrate) 45 Mcg/Act Aer 2 Puffs INH Q4 PRN 05/04/16 Reported Slow-Mag Tab (Magnesium Chloride) 64 Mg Tabcr 2 Tabs PO QPM 05/04/16 Reported Celebrex (Celecoxib) 100 Mg Cap 100 Mg PO BID 30 05/03/16 Reported Zantac (Ranitidine HCl) 150 Mg Tab 1 Tab PO BID 30 05/20/15 Reported Slow-Mag Tab (Magnesium Chloride) 64 Mg Tabcr 3 Tab PO QAM 05/20/15 Reported Metanx (L-Methylfolate W/ Algae-Vitami) 1 Cap Cap 1 Cap PO BID 05/20/15 Reported Requip (Ropinirole HCl) 0.5 Mg Tab 0.5 Mg PO HS PRN 05/20/15 Reported Cymbalta (Duloxetine HCl) 30 Mg Cap 60 Mg PO QAM 30 10/02/14 Reported Lopressor (Metoprolol Tartrate) 50 Mg Tab 50 Mg PO BID 10/02/14 Reported Glucophage (Metformin Hcl) 1,000 Mg Tab 1,000 Mg PO BID 10/02/14 Reported Multi-Vitamin Daily (Multiple Vitamin) 1 Tab Tab 1 Tab PO DAILY 05/15/14 Reported Levalbuterol (Levalbuterol Hcl) 1.25 Mg/0.5 Ml Neb 1.25 Mg INH Q4 PRN 05/15/14 Reported Cymbalta (Duloxetine Hcl) 30 Mg Cap 30 Mg PO HS 05/15/14 Reported Lipitor (Atorvastatin) 20 Mg Tab 20 Mg PO HS 05/15/14 Reported Roxicodone Ir (Oxycodone HCl) 5 Mg Tab 5 Mg PO BID 11/30/13 Reported Tylenol Arthitis Ext Rel (Acetaminophen) 650 Mg Ertab 1,300 Mg PO QPM 11/26/13 Reported Glimepiride 4 Mg Tab 4 Mg PO DAILY 11/26/13 Reported Imodium (Loperamide HCl) 2 Mg Cap 2 Mg PO PRN 03/15/12 Reported Advair Diskus 250/50 60 Dose (Fluticasone Prop/Salmeterol) 1 Ea Aerp 1 Puff INH BID 03/15/12 Reported Coumadin (Warfarin Sodium) 1 Mg Tab 1 Mg PO DAILY 03/15/12 Reported Singulair (Montelukast Sodium) 10 Mg Tab 10 Mg PO HS 03/15/12 Reported Inpatient Medications: Current Inpatient Medications Medications (Trade) Dose Ordered Sig/Tiburcio Route Start Time Stop Time Status Last Admin Dose Admin Acetaminophen (Tylenol Tab) 650 mg Q4H PRN PO 05/04/16 04:00 06/03/16 03:59 05/04/16 14:27 650 MG Polyethylene (Miralax Powder Packet) 17 gm DAILY PRN PO 05/04/16 04:00 06/03/16 03:59 Ondansetron HCl (Zofran Inj) 4 mg Q6H PRN IV 05/04/16 04:00 06/03/16 03:59 05/04/16 11:14 4 MG Glucose (Glucose 40% Gel) 15-30 GRAMS 15 GRAMS... UD PRN PO 05/04/16 04:00 06/03/16 03:59 Glucose (Glucose Chew Tab) 4-8 Tablets 4 Tabl... UD PRN PO 05/04/16 04:00 06/03/16 03:59 Dextrose (Dextrose 50% 50ML Syringe) 25-50ML OF 50% DW IV FOR... UD PRN IV 05/04/16 04:00 06/03/16 03:59 Glucagon (Glucagon Inj) 1 mg UD PRN SQ 05/04/16 04:00 06/03/16 03:59 Miscellaneous Information (Consult Glycemic Management Pharmacy) 1 ea UD PRN N/A 05/04/16 04:35 06/03/16 04:34 Tamsulosin HCl 0.4 mg 0.4 mg Q24H PO 05/04/16 09:00 06/03/16 08:59 05/04/16 08:40 0.4 MG Sodium Chloride (Nss 1000ml) 1,000 ml @ 150 mls/hr Q6H40M IV 05/04/16 06:00 06/03/16 05:59 05/04/16 12:27 150 MLS/HR Hydromorphone HCl (Dilaudid Inj) 0.5 mg Q4H PRN IV 05/04/16 04:00 05/18/16 03:59 Atorvastatin Calcium (Lipitor Tab) 20 mg HS PO 05/04/16 21:00 06/03/16 20:59 Celecoxib (CeleBREX CAP) 100 mg BID PO 05/04/16 09:00 06/03/16 08:59 05/04/16 08:39 100 MG Duloxetine HCl (Cymbalta Cap) 30 mg HS PO 05/04/16 21:00 06/03/16 20:59 Duloxetine HCl (Cymbalta Cap) 60 mg QAM PO 05/04/16 09:00 06/03/16 08:59 05/04/16 08:39 60 MG Salmeterol Xinafoate/ Fluticasone (Advair Diskus 250/50 Inh) 1 puff BID INH 05/04/16 09:00 06/03/16 08:59 05/04/16 08:41 1 PUFF Magnesium Chloride (Slow-Mag Tab) 128 mg QPM PO 05/04/16 21:00 06/03/16 20:59 Magnesium Chloride (Slow-Mag Tab) 192 mg QAM PO 05/04/16 09:00 06/03/16 08:59 05/04/16 08:41 192 MG Metoprolol Tartrate (Lopressor Tab) 50 mg BID PO 05/04/16 09:00 06/03/16 08:59 05/04/16 08:40 50 MG Montelukast Sodium (Singulair Tab) 10 mg HS PO 05/04/16 21:00 06/03/16 20:59 Multivitamins (Multivitamin Tab) 1 tab DAILY PO 05/04/16 09:00 06/03/16 08:59 05/04/16 08:40 1 TAB Oxycodone HCl (Roxicodone Immediate Rel Tab) 5 mg BID@1800,2100 PO 05/04/16 18:00 05/18/16 17:59 Ranitidine HCl (zANTac TAB) 150 mg BID PO 05/04/16 09:00 06/03/16 08:59 05/04/16 08:41 150 MG Ropinirole HCl (Requip Tab) 0.5 mg HS PRN PO 05/04/16 04:15 06/03/16 04:14 Warfarin Sodium (Coumadin Tab) 1 mg DAILY@1600 PO 05/04/16 16:00 06/03/16 15:59 Miscellaneous (Iv Fluids Completed) 1 ea PRN PRN N/A 05/04/16 04:15 05/04/17 04:14 Insulin Aspart (novoLOG ASPART) SLIDING SCALE If C... Q6H SC 05/04/16 07:00 06/03/16 06:29 05/04/16 12:29 1 UNITS Heparin Sodium (Porcine) (Heparin 100 Unit/ml 5ml Flush) 5 ml PRN PRN IV 05/04/16 07:00 06/03/16 06:59 Tiotropium [place] 2 puff 2 puff DAILY INH 05/04/16 09:00 06/03/16 08:59 05/04/16 08:42 2 PUFF Ceftriaxone Sodium/Dextrose (Rocephin Inj/ Dextrose Add-[place] 50ML) 50 ml @ 100 mls/hr DAILY@1000 IV 05/04/16 11:00 05/14/16 10:59 05/04/16 12:27 100 MLS/HR Insulin Glargine (Lantus Solostar Pen) SEE PROTOCOL BID SC 05/04/16 21:00 06/03/16 20:59 Review of Systems Review of Systems Constitutional: + chills, No fever, No weight loss Neurological: No dizzy, No seizures Endocrine: + tired/sluggish, + too cold, No excessive thirst, No too hot Gastrointestinal: + abdominal pain, + nausea, No vomiting Cardiovascular: + swelling ankles/feet, No chest pain, No irregular heartbeat, No palpitations Respiratory: No chronic cough, No shortness of breath Female : + frequent urination, + kidney stones, + weak stream Physical Exam Vital Signs: Vital Signs Past 12 Hours Date Time Temp Pulse Resp B/P Pulse Ox O2 Delivery O2 Flow Rate FiO2 05/04/16 15:05 36.6 93 18 128/72 93 Room Air 05/04/16 09:57 92 05/04/16 09:56 94 05/04/16 07:51 36.9 120 20 110/59 91 Room Air 05/04/16 07:45 Room Air 05/04/16 05:46 36.9 137 16 134/73 95 Room Air 05/04/16 05:35 36.9 122 16 134/73 95 Room Air 05/04/16 05:10 102 20 108/55 95 Physical Exam: General Appearance: WD/WN, no apparent distress, + obese Eyes: bilateral eyes normal inspection ENT: hearing grossly normal Neck: no adenopathy, no JVD, trachea midline Respiratory/Chest: no respiratory distress, no accessory muscle use Gastrointestinal: Abdomen: normal abdomen Extremities: non-tender, normal capillary refill, + pedal edema, + pertinent finding (has chronic painful neuropathy in both feet, ) Neurologic/Psychiatric: alert, normal mood/affect, oriented x 3 Skin: normal color, warm/dry, no rash Assessment & Plan Assessment & Plan long large right upper ureteral stone and renal stones plan right ureteroscopy laser lithotripsy basket stone extraction, stent I explained risk of failure and staged surgery and other complications I dont think I can clear all pieces so she may have some colic in future as fragments pass ceftriaxone given at noon. anticipate d/c tomorrow
[2016-05-04] MEDS: WARFARIN SOD 1 MG TAB PO SCH (16:51)
[2016-05-04] MEDS ORDERED: SUCCINYLCHOLINE CHLORIDE 20 MG/ML 10 ML VIAL IV ONE (16:57)
[2016-05-04] MEDS ORDERED: FENTANYL CITRATE INJ 50 MCG/1 ML 2 ML VIAL IV PRN (17:15)
[2016-05-04] MEDS ORDERED: PROMETHAZINE HCL INJ 12.5 MG in SODIUM CHLORIDE 0.9% 50ML 50 ML IV PRN (17:15)
[2016-05-04] MEDS ORDERED: ATROPINE SULFATE 0.1 MG/ML 5ML SYR IV PRN (17:15)
[2016-05-04] MEDS ORDERED: ONDANSETRON INJ 2 MG/ML 2 ML VIAL IV PRN (17:15)
--- NOTE | 2016-05-04 17:26 | [facility] Operative Report ---
Operative Report Operative Date May 04, 2016. Pre-Operative Diagnosis right obstructing ureteral stone, right renal stones Post-Operative Diagnosis same plus pyonephrosis Procedure(s) Performed cysto right stent placement Surgeon [facility] Support Consultant Surgeon(s) none Estimated Blood Loss 0mL Findings radio-opaque right UPJ stone, pyonephrosis drained once wires placed. Fluids 300mL Specimens urine for culture after stent placement Drains 6 fr 24 centimeter double J stent Anesthesia GET Complication(s) None Disposition Recovery Room / PACU Indications Large right UPJ stone and renal colic. Description of Procedure Patient was given general GET anesthesia and placed in lithotomy position. Her genitals were prepped and draped in sterile fashion. She has eda on right pannus and bilateral groin creases. Time out held with team. I placed a 21 fr rigid cystoscope to bladder. The urethra is very recessed and hard to visualize due to her obesity. The UOs are small slit shape close to bladder neck. I placed a road runner wire up right ureter and immediately got brisk return of thick cloudy white debris. I will not be able to proceed with ureteroscopy due to likely infection creating the pyuria. I switched to a stiff wire and placed a 24 centimeter 6 Fr double J stent easily. There is brisk efflux of thick pink cloudy urine after placement. I sent a specimen of urine for culture and left bladder empty and concluded case. I placed a 16 fr silicone landry as her anatomy is very difficult even in lithotomy position and if she gets sick overnight I think a bedside landry will be near impossible. . She transferred to recovery under my escort, in stable condition. Plan: Home tomorrow if no fever Pyridium for dysuria x 3 days flomax daily until stone removed oral pain meds as needed oral antibiotics for 7-14 days culture specific repeat stone surgery in 1-2 weeks ASA 3 dirty case 4 seconds fluoro ceftriaxone antibiotic at 12:30pm I attest to the content of the Intraoperative Record and any orders documented therein. Any exceptions are noted below.
[2016-05-04] MEDS ORDERED: PHENAZOPYRIDINE HCL 200 MG TAB PO PRN (17:30)
--- NOTE | 2016-05-04 17:33 | Anesthesiology Progress Note ---
Anesthesia Post Op Note Date & Time May 04, 2016 at 17:34 Vital Signs Pain Intensity: 4.0 Vital Signs Past 12 Hours Date Time Temp Pulse Resp B/P Pulse Ox O2 Delivery O2 Flow Rate FiO2 05/04/16 17:25 36.4 101 18 111/63 100 Mask 10 05/04/16 17:19 36.4 109 18 111/68 100 Mask 10 05/04/16 16:26 36.8 96 16 120/68 95 Room Air 05/04/16 15:05 36.6 93 18 128/72 93 Room Air 05/04/16 09:57 92 05/04/16 09:56 94 05/04/16 07:51 36.9 120 20 110/59 91 Room Air 05/04/16 07:45 Room Air 05/04/16 05:46 36.9 137 16 134/73 95 Room Air 05/04/16 05:35 36.9 122 16 134/73 95 Room Air Notes Mental Status: alert / awake / arousable, participated in evaluation Pt Amnestic to Procedure: Yes Nausea / Vomiting: adequately controlled Pain: adequately controlled Airway Patency, RR, SpO2: stable & adequate BP & HR: stable & adequate Hydration State: stable & adequate Anesthetic Complications: no major complications apparent
--- NOTE | 2016-05-04 17:50 | DIAGNOSTIC IMAGING REPORT ---
INTRAOPERATIVE SUPINE ABDOMEN CLINICAL HISTORY: Right stent placement. COMPARISON STUDY: CT scan dated 05/04/2016 FINDINGS: A single intraoperative fluoroscopic spot images provided for interpretation. This reveals the proximal aspect of a nephroureteral stent. The proximal pigtail is not fully formed. 4 seconds of fluoroscopic time was utilized. IMPRESSION: Intraoperative fluoroscopic spot image demonstrating the proximal portion of the patient's right nephroureteral stent Electronically signed by: Filippo Jaime M.D. 05/04/2016 5:49 PM Dictated Date/Time: 05/04/2016 5:48 PM
--- NOTE | 2016-05-04 18:03 | Progress Note ---
Internal Med Progress Note Date of Service: May 04, 2016. Provider Documentation: SUBJECTIVE: complains of headaches and sweating abdominal pain is better slightly nauseous no chest pain or sob afebrile OBJECTIVE: Vital Signs-as noted below Exam: General-alert and awake and oriented. Not in distress ENT-normal hearing Neck-no neck masses Lungs-cta b/l no wheezing or crackles Heart-s1 and s2 heard, regular rate and rhythm no murmurs Abdomen-soft bowel sounds present non tender no distension Extremities-no edema no erythema Neuro-alert and awake moves extremities Lab data as noted below. ASSESSMENT & PLAN: 60 yo F with acute onset of R flank pain 2/2 obstructing R ureteral stone. 1. R ureteral stone-c 1mm stone started on Flomax and fluids pain control s/p stent placement today and clody urine noticed at the of stent placement continue Rocephin await urine cultures if deteriorates will broaden the antibiotics. plan for stone extraction later as per urology 2. DMII-ISS/Lantus/inpatient glycemic pharmacist consult will monitor blood sugars. 3. PSVT in preparation for MAZE procedure as outpatient-sees Dr. Hogan. On Lopressor. will monitor. 4. Obesity and . LORE-CPAP ordered 5. Depression- home meds. 6. h/o DVT with port -on coumadin 1mg daily with no goal INR will f/u inr. 7. Fibromyalgia-cont home meds. 8. chronic lyte abnormalities 9. HTN-controlled, cont home meds. 10. Migraines. 11. RLS on requip DVT proph: coumadin DISPOSITION to be determined Vital Signs: Date Time Temp Pulse Resp B/P Pulse Ox O2 Delivery O2 Flow Rate FiO2 05/04/16 17:50 36.2 101 18 116/60 98 Nasal Cannula 2 05/04/16 17:45 36.4 101 18 103/69 98 Nasal Cannula 2 05/04/16 17:35 102 18 119/61 100 Mask 10 05/04/16 17:25 36.4 101 18 111/63 100 Mask 10 05/04/16 17:19 36.4 109 18 111/68 100 Mask 10 05/04/16 16:26 36.8 96 16 120/68 95 Room Air 05/04/16 15:05 36.6 93 18 128/72 93 Room Air 05/04/16 09:57 92 05/04/16 09:56 94 05/04/16 07:51 36.9 120 20 110/59 91 Room Air 05/04/16 07:45 Room Air 05/04/16 05:46 36.9 137 16 134/73 95 Room Air 05/04/16 05:35 36.9 122 16 134/73 95 Room Air 05/04/16 05:10 102 20 108/55 95 05/04/16 04:23 100 20 124/73 94 Room Air 05/04/16 01:51 100 20 145/82 94 Room Air 05/03/16 23:41 95 05/03/16 23:36 36.4 90 19 170/91 100 Room Air Lab Results: Results Past 24 Hours Test 05/03/16 23:57 05/04/16 02:05 05/04/16 06:34 05/04/16 07:25 Range/Units White Blood Count 8.18 4.8-10.8 K/uL Red Blood Count 4.05 4.2-5.4 M/uL Hemoglobin 12.2 12.0-16.0 g/dL Hematocrit 37.5 37-47 % Mean Corpuscular Volume 92.6 80-100 fL Mean Corpuscular Hemoglobin 30.1 25-34 pg Mean Corpuscular Hemoglobin Concent 32.5 32-36 g/dl Platelet Count 252 130-400 K/uL Mean Platelet Volume 10.6 7.4-10.4 fL Neutrophils (%) (Auto) 79.1 % Lymphocytes (%) (Auto) 13.6 % Monocytes (%) (Auto) 4.8 % Eosinophils (%) (Auto) 1.0 % Basophils (%) (Auto) 0.4 % Neutrophils # (Auto) 6.48 1.4-6.5 K/uL Lymphocytes # (Auto) 1.11 1.2-3.4 K/uL Monocytes # (Auto) 0.39 0.11-0.59 K/uL Eosinophils # (Auto) 0.08 0-0.5 K/uL Basophils # (Auto) 0.03 0-0.2 K/uL RDW Standard Deviation 51.5 36.4-46.3 fL RDW Coefficient of Variation 15.2 11.5-14.5 % Immature Granulocyte % (Auto) 1.1 % Immature Granulocyte # (Auto) 0.09 0.00-0.02 K/uL Prothrombin Time 10.3 9.0-12.0 SECONDS Prothromb Time International Ratio 1.0 0.9-1.1 Activated Partial Thromboplast Time 25.4 21.0-31.0 SECONDS Partial Thromboplastin Ratio 1.0 Sodium Level 137 136-145 mmol/L Potassium Level 4.3 3.5-5.1 mmol/L Chloride Level 104 98-107 mmol/L Carbon Dioxide Level 22 21-32 mmol/L Anion Gap 11.0 3-11 mmol/L Blood Urea Nitrogen 17 7-18 mg/dl Creatinine 1.20 0.60-1.20 mg/dl Est Creatinine Clear Calc Drug Dose 70.2 ml/min Estimated GFR () 57.3 Estimated GFR (Non- 49.4 BUN/Creatinine Ratio 14.1 10-20 Random Glucose 216 70-99 mg/dl Calcium Level 9.6 8.5-10.1 mg/dl Urine Color YELLOW Urine Appearance SL CLOUDY CLEAR Urine pH 5.5 4.5-7.5 Urine Specific [place] >= 1.030 1.000-1.030 Urine Protein TRACE NEG Urine Glucose (UA) NEG NEG Urine Ketones TRACE NEG Urine Occult Blood TRACE NEG Urine Nitrite NEG NEG Urine Bilirubin NEG NEG Urine Urobilinogen NEG NEG Urine Leukocyte Esterase SMALL NEG Urine RBC 0-4 0-4 /hpf Urine WBC 10-30 0-5 /hpf Urine Epithelial Cells 20-30 0-5 /lpf Urine Bacteria NEG NEG Bedside Glucose 152 149 70-90 mg/dl Test 05/04/16 11:21 05/04/16 17:19 Range/Units Bedside Glucose 155 151 70-90 mg/dl Microbiology Results 05/04/16 Urine Culture, Received Pending 05/04/16 Urine Culture, Received Pending
[2016-05-04] MEDS: OXYCODONE HCL IR 5 MG TAB (IMMEDIATE RELEASE) PO SCH ×2 (18:12→21:22)
[2016-05-04] MEDS: HYDROmorphone INJ 0.5 MG/0.5 ML SYR IV PRN (19:45)
[2016-05-04] MEDS: MONTELUKAST SOD 10 MG TAB PO SCH (21:17)
[2016-05-04] MEDS: ATORVASTATIN 20 MG TAB PO SCH (21:17)
[2016-05-04] MEDS: INSULIN GLARGINE SOLOSTAR 100 UNITS/ML 3 ML PEN SC SCH (21:31)
[2016-05-05] VITALS (13 sets, daily range): BP systolic 116–130; BP diastolic 64–80; PULSE 96–148; TEMP 36.7–37; O2SAT 93–96
[2016-05-05] MEDS: SODIUM CHLORIDE 0.9% 1000ML 1,000 ML IV SCH ×3 (02:04→23:38)
[2016-05-05] MEDS: FLUTICASONE/SALMETEROL 250/50 (ADVAIR) 14 PUFF/1 INHALER INH SCH ×2 (08:08→20:45)
[2016-05-05] MEDS: TIOTROPIUM BROMIDE 5 PUFF/90 MCG INH INH SCH (08:08)
[2016-05-05] MEDS: CeleBREX 100 MG CAP PO SCH ×2 (08:09→20:45)
[2016-05-05] MEDS: DULOXETINE (CYMBALTA) 30 MG CAP PO SCH ×2 (08:10→20:47)
[2016-05-05] MEDS: TAMSULOSIN HCL 0.4 MG CAP PO SCH (08:10)
[2016-05-05] MEDS: METOPROLOL TARTRATE 50 MG TAB PO SCH ×2 (08:11→20:48)
[2016-05-05] MEDS: MULTIVITAMIN TAB PO SCH (08:11)
[2016-05-05] MEDS: RANITIDINE HCL 150 MG TAB PO SCH ×2 (08:12→20:45)
[2016-05-05] MEDS: MAGNESIUM CHLORIDE 64MG DELAYED REL TAB PO SCH ×2 (08:12→20:48)
[2016-05-05] MEDS: HYDROmorphone INJ 0.5 MG/0.5 ML SYR IV PRN (08:25)
[2016-05-05 08:28] LABS: BASO % 0.3 %; BASO ABS # 0.02 K/uL (0-0.2); COMPLETE YES; EOS % 1.5 %; HEMATOCRIT 33.5 % (37-47); IG% 0.8 %; LYMPH % 10.5 %; LYMPH ABS # 0.78 K/uL (1.2-3.4); MEAN CELL VOLUME 93.3 fL (80-100); MEAN CORPUSCULAR HEMOGLOBIN 29.5 pg (25-34); MEAN CORPUSCULAR HGB CONC 31.6 g/dl (32-36); MEAN PLATELET VOLUME 10.1 fL (7.4-10.4); MONO % 11.4 %; NEUT % 75.5 %; PLATELET COUNT 193 K/uL (130-400); RED BLOOD COUNT 3.59 M/uL (4.2-5.4); WHITE BLOOD COUNT 7.44 K/uL (4.8-10.8)
[2016-05-05] MEDS: INSULIN ASPART 100 UNITS/ML 3 ML PEN SC SCH ×4 (08:38→21:15)
[2016-05-05] MEDS: INSULIN GLARGINE SOLOSTAR 100 UNITS/ML 3 ML PEN SC SCH ×2 (08:39→21:16)
[2016-05-05 08:57] LABS: ESTIMATED AVERAGE GLUCOSE 148 mg/dl; HA1C FLAG Normal (Normal)
[2016-05-05 09:03] LABS: BUN/CREATININE RATIO 14.7 (10-20); CALCIUM 8.4 mg/dl (8.5-10.1); CREATININE 0.88 mg/dl (0.60-1.20); MAGNESIUM 2.2 mg/dl (1.8-2.4); POTASSIUM 4.1 mmol/L (3.5-5.1)
[2016-05-05] MEDS ORDERED: NURSING VERBAL MED ORDER ONE ×2 (09:15→19:00)
[2016-05-05] MEDS ORDERED: LEValbuterol HFA 15GM INHALER INH PRN (09:15)
--- NOTE | 2016-05-05 09:24 | Progress Note ---
Subjective Date of Service: May 05, 2016. Subjective Pt evaluation today including: conversation w/ patient, physical exam, lab review Voiding: landry catheter in place Patient unsure if she fevered overnight. she feels hot. She ate breakfast uneventfully. Her pain is fair but she has fibromyalgia so hard to find a pain free day. No BM for 2 days. Problem List Medical Problems: (1) Calculus of proximal right ureter Status: Acute Review of Systems Constitutional: + fatigue, + weakness, No chills, No fever, No sweats Respiratory: + cough, No shortness of breath Female : + hematuria (resolved overnight ) Objective Vital Signs Date Time Temp Pulse Resp B/P Pulse Ox O2 Delivery O2 Flow Rate FiO2 05/05/16 08:57 93 Room Air 05/05/16 08:42 93 Room Air 05/05/16 07:48 37.0 105 20 130/64 93 Room Air 05/05/16 04:18 36.9 96 18 130/76 96 CPAP 05/05/16 00:00 95 Room Air 05/04/16 23:21 36.8 103 20 160/82 92 05/04/16 21:20 36.9 102 20 147/78 92 05/04/16 20:00 36.8 99 18 168/71 91 Room Air 05/04/16 19:00 36.6 98 18 153/82 95 Nasal Cannula 1.5 05/04/16 18:32 36.7 100 18 127/66 93 Nasal Cannula 1.5 05/04/16 18:01 37.1 104 18 135/78 93 05/04/16 17:50 36.2 101 18 116/60 98 Nasal Cannula 2 05/04/16 17:45 36.4 101 18 103/69 98 Nasal Cannula 2 05/04/16 17:35 102 18 119/61 100 Mask 10 05/04/16 17:25 36.4 101 18 111/63 100 Mask 10 05/04/16 17:19 36.4 109 18 111/68 100 Mask 10 05/04/16 16:30 Room Air 05/04/16 16:26 36.8 96 16 120/68 95 Room Air 05/04/16 15:05 36.6 93 18 128/72 93 Room Air 05/04/16 09:57 92 05/04/16 09:56 94 Physical Exam General Appearance: WD/WN, no apparent distress, + obese ENT: hearing grossly normal Neck: supple, trachea midline Respiratory/Chest: normal breath sounds, no respiratory distress, no accessory muscle use Neurologic/Psychiatric: alert, normal mood/affect, oriented x 3 Laboratory Results Last 24 Hours Test 05/04/16 11:21 05/04/16 17:19 05/04/16 20:24 05/05/16 07:25 Bedside Glucose 155 mg/dl 151 mg/dl 153 mg/dl 141 mg/dl Test 05/05/16 07:45 White Blood Count 7.44 K/uL Red Blood Count 3.59 M/uL Hemoglobin 10.6 g/dL Hematocrit 33.5 % Mean Corpuscular Volume 93.3 fL Mean Corpuscular Hemoglobin 29.5 pg Mean Corpuscular Hemoglobin Concent 31.6 g/dl Platelet Count 193 K/uL Mean Platelet Volume 10.1 fL Neutrophils (%) (Auto) 75.5 % Lymphocytes (%) (Auto) 10.5 % Monocytes (%) (Auto) 11.4 % Eosinophils (%) (Auto) 1.5 % Basophils (%) (Auto) 0.3 % Neutrophils # (Auto) 5.62 K/uL Lymphocytes # (Auto) 0.78 K/uL Monocytes # (Auto) 0.85 K/uL Eosinophils # (Auto) 0.11 K/uL Basophils # (Auto) 0.02 K/uL RDW Standard Deviation 53.7 fL RDW Coefficient of Variation 15.7 % Immature Granulocyte % (Auto) 0.8 % Immature Granulocyte # (Auto) 0.06 K/uL Prothrombin Time 11.0 SECONDS Prothromb Time International Ratio 1.0 Sodium Level 142 mmol/L Potassium Level 4.1 mmol/L Chloride Level 110 mmol/L Carbon Dioxide Level 23 mmol/L Anion Gap 9.0 mmol/L Blood Urea Nitrogen 13 mg/dl Creatinine 0.88 mg/dl Est Creatinine Clear Calc Drug Dose 95.8 ml/min Estimated GFR () 83.4 Estimated GFR (Non- 71.9 BUN/Creatinine Ratio 14.7 Random Glucose 143 mg/dl Estimated Average Glucose 148 mg/dl Hemoglobin A1c 6.8 % Calcium Level 8.4 mg/dl Magnesium Level 2.2 mg/dl Assessment and Plan large right ureteral and renal stones drained purulent material in OR yesterday so ureteroscopy was not done and just stent placed home today on oral abt change therapy as culture dictates landry removed by me now schedule stone surgery for next 1-2 weeks as an outpatient laxatives for constipation flomax daily
[2016-05-05] MEDS: CEFTRIAXONE SOD INJ 1 GM in DEXTROSE 5% ADD-VANTAGE 50ML 50 ML IV SCH (10:00)
--- NOTE | 2016-05-05 12:42 | Pharmacy Progress Note ---
Glycemic Control: Progress Nt Date of Service May 05, 2016. Scope Glycemic Pharmacist consulted by Dr Leslie on 05/04/16 for glycemic control and to write orders per [facility] inpatient glycemic control protocol. Objective Accuchecks BSG (last 24hrs): Test 05/04/16 17:19 05/04/16 20:24 05/05/16 07:25 05/05/16 07:45 Bedside Glucose 151 mg/dl (70-90) 153 mg/dl (70-90) 141 mg/dl (70-90) Random Glucose 143 mg/dl (70-99) Test 05/05/16 11:27 Bedside Glucose 193 mg/dl (70-90) Laboratory Data (last 24hrs) Test 05/05/16 07:45 Anion Gap 9.0 mmol/L BUN/Creatinine Ratio 14.7 Blood Urea Nitrogen 13 mg/dl Creatinine 0.88 mg/dl Hemoglobin A1c 6.8 % Potassium Level 4.1 mmol/L Sodium Level 142 mmol/L White Blood Count 7.44 K/uL Red Blood Count 3.59 M/uL Hemoglobin 10.6 g/dL Hematocrit 33.5 % Mean Corpuscular Volume 93.3 fL Mean Corpuscular Hemoglobin 29.5 pg Mean Corpuscular Hemoglobin Concent 31.6 g/dl Platelet Count 193 K/uL Mean Platelet Volume 10.1 fL Neutrophils (%) (Auto) 75.5 % Lymphocytes (%) (Auto) 10.5 % Monocytes (%) (Auto) 11.4 % Eosinophils (%) (Auto) 1.5 % Basophils (%) (Auto) 0.3 % Neutrophils # (Auto) 5.62 K/uL Lymphocytes # (Auto) 0.78 K/uL Monocytes # (Auto) 0.85 K/uL Eosinophils # (Auto) 0.11 K/uL Basophils # (Auto) 0.02 K/uL HbA1c: Test 05/05/16 07:45 Hemoglobin A1c 6.8 % (4.5-5.6) H Recent Pertinent Medications Outpatient Anti-diabetic Regimen: * glimepiride 4mg PO daily * metformin 1000mg PO twice daily * A1c = unknown at time of initial consult The patient is currently receiving: * Basal insulin: Lantus 10 units every 12 hours * Correctional Insulin: NovoLog Correction per scale ACHS Goal Range: Low 100 mg/dL - High 140 mg/dL Correction Factor: 30 mg/dL/unit * Prandial insulin: Per carb ratio of 1 unit per 10 grams CHO consumed * Oral Agents: holding currently Risk Factors for Insulin Resistance: * Infection: ceftriaxone IV * IVF: NSS * Recent Surgery: cystoscopy - POD#1 * Diet: NPO-->T1DM last evening Assessment & Plan ASSESSMENT: * ADA & AACE recommend a goal blood sugar range 140-180 mg/dl for the majority of critically ill & non-critically ill patients. However, more stringent targets may be selected in individual cases. 05/04/16 * 60 y/o type 2 diabetic who uses oral medications as an outpatient with an unknown degree of control as A1c is outdated. * A1c on order with AM labs 05/05 * holding oral medications while acutely ill * Initiating basal/bolus insulin regimen * weight based dosing implemented * Hold AM Lantus secondary to BSG near goal and NPO status * NovoLog parameters weight-based as mentioned * goal range slightly lower than ADA recommendations based on age and lack of basal insulin this AM 05/05/16 * BSGs well controlled over the past 24 hours with 15 units of insulin administered (149-155mg/dL) * continue same Lantus and NovoLog doses * eating well and anticipating discharge soon * resume metformin tonight with supper * continue to hold sulfonylureas while admitted, resume on discharge * A1c resulted and shows appropriate outpatient control PLAN FOR INPATIENT GLYCEMIC CONTROL: * Lantus 10 units SQ BID * hold if bsg is below 140mg/dL * NovoLog SQ AC/HS or q6H when NPO * Correction factor: 30mg/dL/unit * Carb ratio: 1 unit per 10g of CHO consumed * Goal range: 100-140mg/dL * metformin 1000mg PO BID with meals * A1c * added to discharge instructions RECOMMENDATIONS FOR DISCHARGE: * continue home regimen at discharge given appropriate A1c * Please note that the plan above was derived based on current level of insulin resistance and hospital stress. These recommendations are appropriate for inpatient admission only. Plan of care upon discharge will need to be reassessed to avoid potential outpatient hypo/hyperglycemia. Thank you.
[2016-05-05] MEDS: FLUTICASONE PROPIONATE NA SPR 16 GM BTL SCH (14:00)
[2016-05-05] MEDS ORDERED: METOPROLOL TARTRATE 25 MG TAB PO ONE ×2 (15:00→22:00)
[2016-05-05] MEDS: WARFARIN SOD 1 MG TAB PO SCH (15:19)
--- NOTE | 2016-05-05 15:26 | DIAGNOSTIC IMAGING REPORT ---
CHEST ONE VIEW PORTABLE CLINICAL HISTORY: congestion dyspnea COMPARISON STUDY: 03/08/2015 FINDINGS: Mild cardiomegaly. Fullness of the mid to superior mediastinum possibly projectional. Pulmonary vascular congestion. Diaphragms are smooth. IMPRESSION: Moderate cardiac enlargement. Pulmonary vascular congestion. Electronically signed by: Jeremie Izquierdo M.D. 05/05/2016 3:24 PM Dictated Date/Time: 05/05/2016 3:23 PM
--- NOTE | 2016-05-05 16:09 | Progress Note ---
Internal Med Progress Note Date of Service: May 05, 2016. Provider Documentation: SUBJECTIVE: still has headaches afebrile no flank or abdominal pain eating ok no hematuria no chest pain or sob OBJECTIVE: Vital Signs-as noted below Exam: General-alert and awake and oriented. Not in distress ENT-normal hearing Neck-no neck masses Lungs-cta b/l no wheezing or crackles Heart-s1 and s2 heard, regular rate and rhythm no murmurs Abdomen-soft bowel sounds present non tender no distension Extremities-no edema no erythema Neuro-alert and awake moves extremities Lab data as noted below. ASSESSMENT & PLAN: 60 yo F with acute onset of R flank pain 2/2 obstructing R ureteral stone. 1. R ureteral stone-c 1mm stone started on Flomax and fluids pain control s/p stent placement today and clody urine noticed at the of stent placement continue Rocephin await urine cultures if deteriorates will broaden the antibiotics. plan for stone extraction later as per urology urine growing gm negative bacilli plan to d/c on po abx f/u with urology 2. DMII-ISS/Lantus/inpatient glycemic pharmacist consult will monitor blood sugars. 3. PSVT in preparation for MAZE procedure as outpatient-sees Dr. Hogan. On Lopressor. will monitor.Heart rates elevated. Given a dose of po Lopressor. Will monitor 4. Obesity and . LORE-CPAP ordered 5. Depression- home meds. 6. h/o DVT with port -on coumadin 1mg daily with no goal INR will f/u inr. 7. Fibromyalgia-cont home meds. 8. chronic lyte abnormalities 9. HTN-controlled, cont home meds. 10. Migraines. 11. RLS on requip DVT proph: coumadin DISPOSITION possible d/c in am Vital Signs: Date Time Temp Pulse Resp B/P Pulse Ox O2 Delivery O2 Flow Rate FiO2 05/05/16 15:30 93 Room Air 05/05/16 15:02 36.7 139 22 128/72 93 Room Air 05/05/16 08:42 93 Room Air 05/05/16 08:15 37.0 105 20 130/64 93 Room Air 05/05/16 04:18 36.9 96 18 130/76 96 CPAP 05/05/16 00:00 95 Room Air 05/04/16 23:21 36.8 103 20 160/82 92 05/04/16 21:20 36.9 102 20 147/78 92 05/04/16 20:00 36.8 99 18 168/71 91 Room Air 05/04/16 19:00 36.6 98 18 153/82 95 Nasal Cannula 1.5 05/04/16 18:32 36.7 100 18 127/66 93 Nasal Cannula 1.5 05/04/16 18:01 37.1 104 18 135/78 93 05/04/16 17:50 36.2 101 18 116/60 98 Nasal Cannula 2 05/04/16 17:45 36.4 101 18 103/69 98 Nasal Cannula 2 05/04/16 17:35 102 18 119/61 100 Mask 10 05/04/16 17:25 36.4 101 18 111/63 100 Mask 10 05/04/16 17:19 36.4 109 18 111/68 100 Mask 10 05/04/16 16:30 Room Air 05/04/16 16:26 36.8 96 16 120/68 95 Room Air Lab Results: Results Past 24 Hours Test 05/04/16 17:19 05/04/16 20:24 05/05/16 07:25 05/05/16 07:45 Range/Units Bedside Glucose 151 153 141 70-90 mg/dl White Blood Count 7.44 4.8-10.8 K/uL Red Blood Count 3.59 4.2-5.4 M/uL Hemoglobin 10.6 12.0-16.0 g/dL Hematocrit 33.5 37-47 % Mean Corpuscular Volume 93.3 80-100 fL Mean Corpuscular Hemoglobin 29.5 25-34 pg Mean Corpuscular Hemoglobin Concent 31.6 32-36 g/dl Platelet Count 193 130-400 K/uL Mean Platelet Volume 10.1 7.4-10.4 fL Neutrophils (%) (Auto) 75.5 % Lymphocytes (%) (Auto) 10.5 % Monocytes (%) (Auto) 11.4 % Eosinophils (%) (Auto) 1.5 % Basophils (%) (Auto) 0.3 % Neutrophils # (Auto) 5.62 1.4-6.5 K/uL Lymphocytes # (Auto) 0.78 1.2-3.4 K/uL Monocytes # (Auto) 0.85 0.11-0.59 K/uL Eosinophils # (Auto) 0.11 0-0.5 K/uL Basophils # (Auto) 0.02 0-0.2 K/uL RDW Standard Deviation 53.7 36.4-46.3 fL RDW Coefficient of Variation 15.7 11.5-14.5 % Immature Granulocyte % (Auto) 0.8 % Immature Granulocyte # (Auto) 0.06 0.00-0.02 K/uL Prothrombin Time 11.0 9.0-12.0 SECONDS Prothromb Time International Ratio 1.0 0.9-1.1 Sodium Level 142 136-145 mmol/L Potassium Level 4.1 3.5-5.1 mmol/L Chloride Level 110 98-107 mmol/L Carbon Dioxide Level 23 21-32 mmol/L Anion Gap 9.0 3-11 mmol/L Blood Urea Nitrogen 13 7-18 mg/dl Creatinine 0.88 0.60-1.20 mg/dl Est Creatinine Clear Calc Drug Dose 95.8 ml/min Estimated GFR () 83.4 Estimated GFR (Non- 71.9 BUN/Creatinine Ratio 14.7 10-20 Random Glucose 143 70-99 mg/dl Estimated Average Glucose 148 mg/dl Hemoglobin A1c 6.8 4.5-5.6 % Calcium Level 8.4 8.5-10.1 mg/dl Magnesium Level 2.2 1.8-2.4 mg/dl Test 05/05/16 11:27 Range/Units Bedside Glucose 193 70-90 mg/dl Microbiology Results 05/04/16 Urine Culture - Preliminary, Resulted Gram Negative Bacilli
[2016-05-05] MEDS ORDERED: FUROSEMIDE INJ 20 MG in SYRINGE 0 ML IV ONE (16:15)
[2016-05-05] MEDS: METFORMIN HCL 500 MG TAB PO SCH (16:49)
[2016-05-05] MEDS: OXYCODONE HCL IR 5 MG TAB (IMMEDIATE RELEASE) PO SCH ×2 (17:45→22:32)
[2016-05-05] MEDS: METOPROLOL TARTRATE 1 MG/ML VIAL IV PRN (18:27)
[2016-05-05] MEDS ORDERED: METOPROLOL TARTRATE 1 MG/ML VIAL IV ONE (19:10)
[2016-05-05] MEDS: ACETAMINOPHEN 325 MG TAB PO PRN (20:44)
[2016-05-05] MEDS: ATORVASTATIN 20 MG TAB PO SCH (20:46)
[2016-05-05] MEDS: MONTELUKAST SOD 10 MG TAB PO SCH (20:46)
[2016-05-05] MEDS: HEPARIN SOD 5000 UNIT/0.5 ML CARP SQ SCH (21:17)
--- NOTE | 2016-05-05 22:20 | DIAGNOSTIC IMAGING REPORT ---
BILATERAL LOWER EXTREMITY VENOUS DOPPLER CLINICAL HISTORY: Right ureteral calculus. Evaluate for deep venous thrombus. COMPARISON STUDY: None. TECHNIQUE: Sonography of the deep venous system of the bilateral lower extremities was performed. Compression and augmentation were evaluated. FINDINGS: The bilateral common femoral, superficial femoral and popliteal veins were compressible. Augmentation was normal. Flow was shown within the deep calf vessels. This exam was compromised by suboptimal penetration. IMPRESSION: Technically difficult exam due to suboptimal penetration. No evidence of deep venous thrombus within the bilateral lower extremities. Electronically signed by: Warren Gomez M.D. 05/05/2016 10:18 PM Dictated Date/Time: 05/05/2016 10:17 PM
[2016-05-06 00:27] VITALS: BP 149/81; PULSE 97; TEMP 37.2; O2SAT 94
[2016-05-06 00:55] LABS: HEMATOCRIT 34.2 % (37-47)
[2016-05-06 00:57] LABS: PROTHROMBIN TIME (PATIENT) 10.6 SECONDS (9.0-12.0)
[2016-05-06 01:02] LABS: CALCIUM 8.7 mg/dl (8.5-10.1); CREATININE 0.94 mg/dl (0.60-1.20); MAGNESIUM 1.8 mg/dl (1.8-2.4); POTASSIUM 3.7 mmol/L (3.5-5.1)
[2016-05-06] MEDS ORDERED: MAGNESIUM SULFATE 1GM / D5W 1 GM in PREMIXED IN D5W 100 ML IV ONE (02:00)
[2016-05-06] MEDS: HEPARIN SOD 5000 UNIT/0.5 ML CARP SQ SCH ×3 (05:32→21:34)
[2016-05-06 05:36] VITALS: BP 129/78; PULSE 100; TEMP 36.7; O2SAT 95
[2016-05-06 07:35] VITALS: BP 117/75; PULSE 98; TEMP 36.6; O2SAT 95
[2016-05-06] MEDS: HYDROmorphone INJ 0.5 MG/0.5 ML SYR IV PRN ×2 (08:12→16:17)
[2016-05-06 08:14] LABS: PROTHROMBIN TIME (PATIENT) 10.5 SECONDS (9.0-12.0)
[2016-05-06] MEDS: TAMSULOSIN HCL 0.4 MG CAP PO SCH (08:16)
[2016-05-06] MEDS: METFORMIN HCL 500 MG TAB PO SCH ×2 (08:16→17:09)
[2016-05-06] MEDS: FLUTICASONE/SALMETEROL 250/50 (ADVAIR) 14 PUFF/1 INHALER INH SCH ×2 (08:17→21:20)
[2016-05-06] MEDS: MULTIVITAMIN TAB PO SCH (08:17)
[2016-05-06] MEDS: RANITIDINE HCL 150 MG TAB PO SCH ×2 (08:19→21:21)
[2016-05-06] MEDS: MAGNESIUM CHLORIDE 64MG DELAYED REL TAB PO SCH ×2 (08:20→21:22)
[2016-05-06] MEDS: CeleBREX 100 MG CAP PO SCH ×2 (08:21→21:25)
[2016-05-06] MEDS: DULOXETINE (CYMBALTA) 30 MG CAP PO SCH ×2 (08:21→21:24)
[2016-05-06] MEDS: METOPROLOL TARTRATE 25 MG TAB PO SCH ×2 (08:22→21:22)
[2016-05-06] MEDS: FLUTICASONE PROPIONATE NA SPR 16 GM BTL SCH (08:22)
[2016-05-06] MEDS: TIOTROPIUM BROMIDE 5 PUFF/90 MCG INH INH SCH (08:23)
[2016-05-06] MEDS: POLYETHYLENE (MIRALAX) 17 GM PACK PO PRN (08:29)
[2016-05-06] MEDS ORDERED: POTASSIUM CHLORIDE 20 MEQ TABCR PO ONE (09:13)
[2016-05-06] MEDS ORDERED: CONSULT PHARMACY STA (09:13)
[2016-05-06] MEDS: INSULIN ASPART 100 UNITS/ML 3 ML PEN SC SCH ×4 (09:35→21:33)
[2016-05-06] MEDS: INSULIN GLARGINE SOLOSTAR 100 UNITS/ML 3 ML PEN SC SCH ×2 (09:36→21:33)
[2016-05-06] MEDS: CEFTRIAXONE SOD INJ 1 GM in DEXTROSE 5% ADD-VANTAGE 50ML 50 ML IV SCH (09:38)
--- NOTE | 2016-05-06 09:52 | CARDIOLOGY CONSULTATION ---
DATE OF CONSULTATION: 05/06/2016 REFERRING PHYSICIAN: Dr. Branden Hedrick. REASON FOR CONSULTATION: Paroxysmal supraventricular tachycardia. HISTORY OF PRESENT ILLNESS: Ms. Davidson is a 60-year-old female who presented to the Emergency Department on 05/04/2016 with right flank pain. She was subsequently found to have an 11 mm obstructing calculus of her right ureter. She was admitted and treated with intravenous antibiotics. Her urine culture is positive for gram negative bacilli. The patient developed episode of tachycardia yesterday. Review of ECG demonstrates a long RP tachycardia, likely atrial tachycardia at a rate of 145 beats per minute. The patient had a right-sided stent placed on May 04. Currently, notes diffuse joint stiffness and mild discomfort. Denies chest pain or shortness of breath. During her episodes of PSVT she reports palpitations. No chest heaviness or discomfort. She has a mild troponin elevation. Denies orthopnea or PND. Chronic lymphedema has improved with bed rest. No ischemic ECG changes noted during episodes of PSVT. REVIEW OF SYSTEMS: The pertinent positives noted above, a comprehensive 10-system review is otherwise negative. PAST MEDICAL HISTORY: 1. Diabetes type 2. 2. Fibromyalgia. 3. Depression. 4. Paroxysmal supraventricular tachycardia, likely atrial tachycardia. 5. Anemia due to chemotherapy. 6. BRCA1 positive breast cancer, status post mastectomy. 7. Reactive airways disease. 8. Dyslipidemia. 9. Raynaud's. 10. DVT. 11. Lymphedema. 12. Migraine headache. 13. Restless leg syndrome. 14. Obstructive sleep apnea. PAST SURGICAL HISTORY: 1. Cholecystectomy. 2. Ureteral stent placements. 3. Mastectomy. FAMILY HISTORY: Negative for premature CAD or sudden cardiac . SOCIAL HISTORY: Former tobacco abuse. She is and lives with her family. ALLERGIES: CODEINE, ERYTHROMYCIN, POTASSIUM CHLORIDE, AMITRIPTYLINE, SITAGLIPTIN, DOXEPIN, GABAPENTIN, HYOSCYAMINE, PHENYLEPHRINE, ADHESIVE TAPE, TRICYCLIC ANTIDEPRESSANTS, VAGISIL. HOME MEDICATIONS: 1. Lipitor 20 mg daily. 2. Azelastine 2 sprays twice daily. 3. Celebrex 100 mg twice daily. 4. Cymbalta 60 mg in the morning, 30 mg at night. 5. Advair Diskus 250/50 one puff b.i.d. 6. Glimepiride 4 mg daily. 7. Imodium 2 mg as needed. 8. Slow-Mag 3 tabs in the morning, 2 tablets in the evening. 9. Metformin 1000 mg twice daily. 10. Lopressor 50 mg twice daily. 11. Singulair 10 mg daily. 12. Multivitamin daily. 13. Oxycodone immediate release 5 mg twice daily. 14. Klor-Con 20 mEq twice daily. 15. Zantac 1 tablet twice daily. 16. Warfarin 1 mg daily. 17. Xopenex inhaled every 4 hours as needed. 18. Requip as needed for restless leg. ECG on admission is sinus tachycardia with a left axis deviation. Resting 2D transthoracic echo is pending. Troponin 0.050 with a peak troponin this morning of 0.286. Sodium 140, potassium 3.7, chloride is 106, CO2 is 23, BUN is 11, creatinine is 0.94. White blood cell count 7.44, hemoglobin is 11.1, platelet count is 193. INR is 1.0. Telemetry demonstrates sinus rhythm, sinus tachycardia, as well as episodes of atrial tachycardia at a rate of 150 beats per minute with offset to sinus tachycardia. PHYSICAL EXAMINATION: VITAL SIGNS: Temperature is 36.6 degrees centigrade, her pulse is 98 beats per minute and regular, her respiratory rate is 20 breaths per minute, blood pressure is 117/75, her SaO2 is 95% on room air. GENERAL: NAD, awake, alert and oriented x3, obese. HEENT: Her mucous membranes are moist. No scleral icterus. The conjunctivae are pink. NECK: Supple. There is no JVD, no HJR, no carotid bruit. HEART: Regular, borderline tachycardic with a normal S1 and S2. There is no murmur, rub, or gallop. LUNGS: Clear without rales, rhonchi, or wheezing. ABDOMEN: Obese and nontender. No rebound or guarding. Normal bowel sounds. EXTREMITIES: Warm and dry. There is no clubbing, cyanosis. There is +1 bilateral nonpitting pretibial edema. NEUROLOGIC: Demonstrates no focal deficit. FINAL IMPRESSION: 1. Paroxysmal supraventricular tachycardia, long RP, likely atrial tachycardia at a rate of 145-150 beats per minute with offset to sinus tachycardia. The patient mildly symptomatic with reported palpitations during episodes of supraventricular tachycardia. Previously evaluated by electrophysiology with consideration for EP study in the near future. 2. Mildly elevated troponin I secondary to episode of sustained supraventricular tachycardia. Previous stress testing negative for inducible ischemia in 2015. 3. History of chronic hypokalemia and hypomagnesemia. The patient currently receiving a dose of intravenous magnesium sulfate. She is maintained on oral potassium and magnesium supplementation as an outpatient, although it appears she has not received her potassium supplement during hospitalization. 4. Diabetes type 2. 5. Right ureteral stone status post stent placement. 6. Gram negative bacilli per urine culture. 7. Hypertension, controlled. PLAN AND RECOMMENDATIONS: The patient's metoprolol will be increased to 75 mg twice daily. Magnesium replacement currently infusing. We will restart her outpatient oral potassium supplement at this time. Antibiotics will be continued per the direction of urology and internal medicine. Case will be discussed with electrophysiology with plans for outpatient evaluation, as well as possible repeat stress testing when she has recovered from her current urologic issues. Thank you for allowing me to take part in the care of your patient.
--- NOTE | 2016-05-06 11:12 | Pharmacy Progress Note ---
Glycemic Control: Progress Nt Date of Service May 06, 2016. Scope Glycemic Pharmacist consulted by Dr Leslie on 05/04/16 for glycemic control and to write orders per [facility] inpatient glycemic control protocol. Objective Accuchecks BSG (last 24hrs): Test 05/05/16 11:27 05/05/16 16:12 05/05/16 20:40 05/06/16 00:29 Bedside Glucose 193 mg/dl (70-90) 176 mg/dl (70-90) 163 mg/dl (70-90) Random Glucose 137 mg/dl (70-99) Test 05/06/16 07:24 Bedside Glucose 188 mg/dl (70-90) Laboratory Data (last 24hrs) Test 05/06/16 00:29 Anion Gap 11.0 mmol/L BUN/Creatinine Ratio 12.0 Blood Urea Nitrogen 11 mg/dl Creatinine 0.94 mg/dl Potassium Level 3.7 mmol/L Sodium Level 140 mmol/L HbA1c: Test 05/05/16 07:45 Hemoglobin A1c 6.8 % (4.5-5.6) H Recent Pertinent Medications Outpatient Anti-diabetic Regimen: * Glimepiride 4mg PO daily * Metformin 1gm PO BID * A1c = 6.8 % 05/05/16 The patient is currently receiving: * Basal insulin: Lantus 10 units every 12 hours - hold if BSG less than 140 * Correctional Insulin: Novolog Correction per scale ACHS Goal Range: Low 100 mg/dL - High 140 mg/dL Correction Factor: 30 mg/dL/unit * Prandial insulin: Per carb ratio of 1 unit per 10 grams CHO consumed * Oral Agents: Metformin 1gm PO BID w/ meals Risk Factors for Insulin Resistance: * Infection: receiving Ceftriaxone for complicated UTI * Recent Surgery: POD # 3 s/p cystoscopy w/ R ureteral stenting * Diet: ordered T2DM diet and tolerating well Assessment & Plan ASSESSMENT: 05/05/16 (from prior note) * BSGs well controlled over the past 24 hours with 15 units of insulin administered (149-155mg/dL) * continue same Lantus and NovoLog doses * eating well and anticipating discharge soon * resume metformin tonight with supper * continue to hold sulfonylureas while admitted, resume on discharge * A1c resulted and shows appropriate outpatient control 05/06/16 * Most BSGs at goal over the last 24 hrs * BSGs have ranged 137-188 over last 24 hrs * Fasting BSG elevated this AM with 20 units of Lantus on board, this was somewhat unexpected. Will not react to a single fasting BSG elevation, however if elevated again tomorrow will consider increasing basal dose. Metformin was restarted last evening and will likely help improve insulin sensitivity over the next several days. * 2 of 3 post-prandial BSGs were at goal yesterday using current CR - now that metformin on board we may see further improvement PLAN FOR INPATIENT GLYCEMIC CONTROL: * Continuing Lantus 10 units SQ BID; hold if BSG less than 120 * Continuing correction factor of 30 mg/dl/unit * Continuing carb ratio of 1 unit per 10 grams CHO consumed * Continuing goal range of Low 100 mg/dL - High 140 mg/dL * Continue Metformin 1gm PO BID w/ meals RECOMMENDATIONS FOR DISCHARGE: * Resume home regimen of glimepiride 4mg PO daily + metformin 1gm PO BID w/ meals * Please note that the plan above was derived based on current level of insulin resistance and hospital stress. These recommendations are appropriate for inpatient admission only. Plan of care upon discharge will need to be reassessed to avoid potential outpatient hypo/hyperglycemia. Thank you.
[2016-05-06] MEDS: POTASSIUM CHLR 10MEQ / WTR IV SCH ×2 (11:34→12:44)
[2016-05-06 11:43] VITALS: BP 150/85; PULSE 95; TEMP 36.7; O2SAT 95
[2016-05-06] MEDS ORDERED: PERFLUTREN LIPID MICROSPHERE (DEFINITY) IV ONE (14:38)
--- NOTE | 2016-05-06 15:16 | ECHOCARDIOGRAM REPORT ---
*NOTICE TO RECEIVING [employer] This information is strictly Confidential and protected under [place] law. [place] law prohibits you from making any further disclosure of this information unless further disclosure is expressly permitted by the written consent of the person to whom it pertains or is authorized by law. A general authorization for the release of medical or other information is not sufficient for this purpose. Hospital accepts no responsibility if the information is made available to any other person, INCLUDING THE PATIENT. Interpretation Summary * Name: CHANDNI CORDERO Study Date: 05/06/2016 02:38 PM BP: 129/78 mmHg * Patient Location: [facility]\S\N289\S\2 HR: 123 * : 1955 (M/d/yyyy) Gender: Female Height: 65 in * Age: 60 yrs Ethnicity: [place] Weight: 297 lb * Ordering Physician: Branden Hedrick * Referring Physician: Self, Referred * Performed By: Devi Quiles RCS * * Reason For Study: SVT * BSA: 2.3 m2 * The study was technically limited. * The study was technically difficult. * -- Conclusions -- * The rhythm is sinus tachycardia. * Left ventricular systolic function is normal. * Ejection Fraction = 60-65%. * No regional wall motion abnormalities noted. * There is mild mitral regurgitation. * Compared to prior study, mild mitral regurgitation is present. Procedure Details * A complete two-dimensional transthoracic echocardiogram was performed (2D, M-mode, Doppler and color flow Doppler). * A contrast injection of Definity was performed to improve assessment of LV function. * Contrast was injected into an intravenous site in the central line. * One vial of Definity ultrasound contrast was diluted in normal saline to a total volume of 10 ml. A total of '2' ml of solution was administered during imaging. * Lot # [id number] of Definity utilized for procedure. * Expiration date 1 APR 24. * The attending nurse who injected the contrast agent was CRIS RODRIGUEZ CPL, RN. Left Ventricle * The left ventricle is normal in size. * The rhythm is sinus tachycardia. * There is no thrombus. * There is normal left ventricular wall thickness. * Left ventricular systolic function is normal. * Ejection Fraction = 60-65%. * No regional wall motion abnormalities noted. Right Ventricle * The right ventricle is normal size. * The right ventricular systolic function is normal as assessed by tricuspid annular plane systolic excursion (TAPSE) (normal >1.5 cm). Atria * The left atrial size is normal. * Right atrial size is normal. * There is no evidence of atrial septal defect, but resolution does not allow assessment for a patent foramen ovale. Mitral Valve * The mitral valve is not well visualized. * There is no mitral valve stenosis. * There is mild mitral regurgitation. Tricuspid Valve * The tricuspid valve is not well visualized. * There is no tricuspid stenosis. * Significant tricuspid regurgitation is absent. Aortic Valve * The aortic valve is not well visualized. * Aortic stenosis is absent. * There is no significant aortic regurgitation. Pulmonic Valve * The pulmonary valve is not well seen, but the Doppler examination is normal without significant regurgitation or stenosis. Great Vessels * The aortic root is not well visualized. Pericardium/Pleural * There is no pericardial effusion. Great Vessels * Normal inferior vena cava diameter and respiratory variation suggests normal central venous pressure. Left Ventricular Diastolic Function * Unable to accurately assess diastolic function secondary to E/A fusion. MMode 2D Measurements and Calculations LVAd ap4 37.9 cm\S\2 LVLd ap4 8.6 cm EDV(MOD-sp4) 139.8 ml EDV(sp4-el) 141.7 ml LVAd ap2 39.1 cm\S\2 LVLd ap2 8.9 cm EDV(MOD-sp2) 141.0 ml EDV(sp2-el) 145.4 ml LVLd %diff 3.5 % EDV(MOD-bp) 143.7 ml Doppler Measurements and Calculations MV E max christina 143.4 cm/sec MV P1/2t max christina 155.4 cm/sec MV P1/2t 59.7 msec MVA(P1/2t) 3.7 cm\S\2 MV dec slope 762.7 cm/sec\S\2 MV dec time 0.16 sec Ao V2 max 134.5 cm/sec Ao max PG 7.2 mmHg Ao max PG (full) 2.8 mmHg LV V1 max PG 4.4 mmHg LV V1 max 105.4 cm/sec MR max christina 608.9 cm/sec MR max PG 148.4 mmHg PA V2 max 95.3 cm/sec PA max PG 3.6 mmHg
[2016-05-06] MEDS: WARFARIN SOD 1 MG TAB PO SCH (15:39)
--- NOTE | 2016-05-06 17:08 | Progress Note ---
Internal Med Progress Note Date of Service: May 06, 2016. Provider Documentation: SUBJECTIVE: headaches are better had some flank pain but improved now no hematuria afebrile ambulating ok' no sob or chest pain OBJECTIVE: Vital Signs-as noted below Exam: General-alert and awake and oriented. Not in distress ENT-normal hearing Neck-no neck masses Lungs-cta b/l no wheezing or crackles Heart-s1 and s2 heard, regular rate and rhythm no murmurs Abdomen-soft bowel sounds present non tender no distension Extremities-no edema no erythema Neuro-alert and awake moves extremities Lab data as noted below. ASSESSMENT & PLAN: 60 yo F with acute onset of R flank pain 2/2 obstructing R ureteral stone. 1. R ureteral stone-c 1mm stone started on Flomax and fluids pain control s/p stent placement today and cloudy urine noticed at the time of stent placement continue Rocephin plan for stone extraction later as per urology urine growing gm negative bacilli but counts few plan to d/c on po abx to complete 7 day course f/u with urology stable currently 2. DMII-ISS/Lantus/inpatient glycemic pharmacist consult will monitor blood sugars.168/188/200/132 3. PSVT in preparation for MAZE procedure as outpatient-sees Dr. Hogan. On Lopressor. will monitor.Heart rates elevated. required iv Lopressor last night seen by cardiology and Lopressor dose increased to 75mg bid PSVT mostly atrial tachycardia as per cardiology appreciate cardiology help will monitor 4.mild elevation of troponin mostly from PSVT No ischemic changes on ekg No Wall motion abnormalities on echo 5. Obesity and . LORE-CPAP ordered 6. Depression- home meds. 7. h/o DVT with port -on coumadin 1mg daily with no goal INR will f/u inr. 8. Fibromyalgia-cont home meds. 9. chronic lyte abnormalities on potassium and magnesium supplements will f/u labs 9. HTN-controlled, will monitor 10. Migraines. 11. RLS on requip DVT proph:hep sub q DISPOSITION possible d/c in am Vital Signs: Date Time Temp Pulse Resp B/P Pulse Ox O2 Delivery O2 Flow Rate FiO2 05/06/16 12:00 Room Air 05/06/16 11:43 36.7 95 20 150/85 95 05/06/16 08:00 Room Air 05/06/16 07:35 36.6 98 20 117/75 95 05/06/16 05:36 36.7 100 18 129/78 95 CPAP 05/06/16 04:00 Room Air CPAP 05/06/16 00:27 37.2 97 20 149/81 94 CPAP 05/06/16 00:00 Room Air CPAP 05/05/16 22:29 111 130/72 05/05/16 20:00 Room Air 05/05/16 19:03 148 137/73 05/05/16 18:49 148 05/05/16 18:27 145 125/81 05/05/16 18:15 36.7 145 22 93 Lab Results: Results Past 24 Hours Test 05/05/16 20:10 05/05/16 20:40 05/06/16 00:29 05/06/16 07:24 Range/Units Troponin I 0.050 0.272 0-0.045 ng/ml Bedside Glucose 163 188 70-90 mg/dl Hemoglobin 11.1 12.0-16.0 g/dL Hematocrit 34.2 37-47 % Prothrombin Time 10.6 9.0-12.0 SECONDS Prothromb Time International Ratio 1.0 0.9-1.1 Sodium Level 140 136-145 mmol/L Potassium Level 3.7 3.5-5.1 mmol/L Chloride Level 106 98-107 mmol/L Carbon Dioxide Level 23 21-32 mmol/L Anion Gap 11.0 3-11 mmol/L Blood Urea Nitrogen 11 7-18 mg/dl Creatinine 0.94 0.60-1.20 mg/dl Est Creatinine Clear Calc Drug Dose 89.6 ml/min Estimated GFR () 77.0 Estimated GFR (Non- 66.4 BUN/Creatinine Ratio 12.0 10-20 Random Glucose 137 70-99 mg/dl Calcium Level 8.7 8.5-10.1 mg/dl Magnesium Level 1.8 1.8-2.4 mg/dl Test 05/06/16 07:54 05/06/16 11:32 05/06/16 11:41 05/06/16 16:38 Range/Units Prothrombin Time 10.5 9.0-12.0 SECONDS Prothromb Time International Ratio 1.0 0.9-1.1 Troponin I 0.286 0.219 0-0.045 ng/ml Bedside Glucose 200 132 70-90 mg/dl
[2016-05-06] MEDS: OXYCODONE HCL IR 5 MG TAB (IMMEDIATE RELEASE) PO SCH ×2 (18:04→21:30)
[2016-05-06] MEDS ORDERED: LACTULOSE SYRUP 30 GM/45 ML UDP PO ONE (18:45)
[2016-05-06 20:11] VITALS: BP 140/75; PULSE 131; TEMP 36.5; O2SAT 95
[2016-05-06] MEDS: ONDANSETRON INJ 2 MG/ML 2 ML VIAL IV PRN (20:37)
[2016-05-06] MEDS: SODIUM CHLORIDE 0.9% 1000ML 1,000 ML IV SCH (20:37)
[2016-05-06] MEDS: METOPROLOL TARTRATE 1 MG/ML VIAL IV PRN (20:43)
[2016-05-06] MEDS: POTASSIUM CHLORIDE 10 MEQ PO SCH (21:23)
[2016-05-06] MEDS: ATORVASTATIN 20 MG TAB PO SCH (21:24)
[2016-05-06] MEDS: MONTELUKAST SOD 10 MG TAB PO SCH (21:24)
[2016-05-06 23:23] VITALS: BP 155/80; PULSE 102; TEMP 36.8; O2SAT 96
[2016-05-07] VITALS (8 sets, daily range): BP systolic 129–171; BP diastolic 70–95; PULSE 89–99; TEMP 36.4–36.8; O2SAT 94–99
[2016-05-07] MEDS: HEPARIN SOD 5000 UNIT/0.5 ML CARP SQ SCH ×3 (05:33→21:19)
[2016-05-07 07:59] LABS: BASO % 0.3 %; BASO ABS # 0.02 K/uL (0-0.2); COMPLETE YES; HEMATOCRIT 34.7 % (37-47); IG% 1.7 %; LYMPH % 14.8 %; LYMPH ABS # 1.14 K/uL (1.2-3.4); MEAN CELL VOLUME 91.6 fL (80-100); MEAN CORPUSCULAR HEMOGLOBIN 28.8 pg (25-34); MEAN CORPUSCULAR HGB CONC 31.4 g/dl (32-36); MEAN PLATELET VOLUME 9.7 fL (7.4-10.4); MONO % 9.9 %; NEUT % 71.3 %; PLATELET COUNT 249 K/uL (130-400); RED BLOOD COUNT 3.79 M/uL (4.2-5.4); WHITE BLOOD COUNT 7.68 K/uL (4.8-10.8)
[2016-05-07 08:05] LABS: INR 0.9 (0.9-1.1); PROTHROMBIN TIME (PATIENT) 10.1 SECONDS (9.0-12.0)
[2016-05-07] MEDS: ONDANSETRON INJ 2 MG/ML 2 ML VIAL IV PRN (08:22)
[2016-05-07] MEDS: METFORMIN HCL 500 MG TAB PO SCH ×2 (08:26→18:16)
[2016-05-07] MEDS: TIOTROPIUM BROMIDE 5 PUFF/90 MCG INH INH SCH (08:27)
[2016-05-07] MEDS: FLUTICASONE PROPIONATE NA SPR 16 GM BTL SCH (08:28)
[2016-05-07] MEDS: FLUTICASONE/SALMETEROL 250/50 (ADVAIR) 14 PUFF/1 INHALER INH SCH ×2 (08:28→21:10)
[2016-05-07] MEDS: CeleBREX 100 MG CAP PO SCH ×2 (08:28→21:11)
[2016-05-07] MEDS: METOPROLOL TARTRATE 25 MG TAB PO SCH (08:29)
[2016-05-07] MEDS: TAMSULOSIN HCL 0.4 MG CAP PO SCH (08:29)
[2016-05-07] MEDS: POTASSIUM CHLORIDE 10 MEQ PO SCH ×2 (08:30→21:12)
[2016-05-07] MEDS: DULOXETINE (CYMBALTA) 30 MG CAP PO SCH ×2 (08:30→21:11)
[2016-05-07] MEDS: MAGNESIUM CHLORIDE 64MG DELAYED REL TAB PO SCH ×2 (08:30→21:10)
[2016-05-07] MEDS: RANITIDINE HCL 150 MG TAB PO SCH ×2 (08:31→21:12)
[2016-05-07] MEDS: MULTIVITAMIN TAB PO SCH (08:31)
[2016-05-07 08:32] LABS: BUN/CREATININE RATIO 8.9 (10-20); CALCIUM 8.9 mg/dl (8.5-10.1); CREATININE 0.82 mg/dl (0.60-1.20); MAGNESIUM 2.1 mg/dl (1.8-2.4); POTASSIUM 4.1 mmol/L (3.5-5.1)
[2016-05-07] MEDS: INSULIN ASPART 100 UNITS/ML 3 ML PEN SC SCH ×4 (08:38→21:22)
[2016-05-07] MEDS: INSULIN GLARGINE SOLOSTAR 100 UNITS/ML 3 ML PEN SC SCH ×2 (08:39→21:17)
[2016-05-07] MEDS: CEFTRIAXONE SOD INJ 1 GM in DEXTROSE 5% ADD-VANTAGE 50ML 50 ML IV SCH (10:33)
[2016-05-07] MEDS ORDERED: METOPROLOL TARTRATE 25 MG TAB PO ONE (11:45)
[2016-05-07] MEDS: POLYETHYLENE (MIRALAX) 17 GM PACK PO PRN (12:01)
--- NOTE | 2016-05-07 12:17 | Pharmacy Progress Note ---
Glycemic Control: Progress Nt Date of Service May 07, 2016. Scope Glycemic Pharmacist consulted by Dr Leslie on 05/04/16 for glycemic control and to write orders per [facility] inpatient glycemic control protocol. Objective Accuchecks BSG (last 24hrs): Test 05/06/16 16:38 05/06/16 20:36 05/07/16 07:47 05/07/16 08:09 Bedside Glucose 132 mg/dl (70-90) 154 mg/dl (70-90) 166 mg/dl (70-90) Random Glucose 166 mg/dl (70-99) Test 05/07/16 11:56 Bedside Glucose 168 mg/dl (70-90) Laboratory Data (last 24hrs) Test 05/07/16 07:47 Anion Gap 11.0 mmol/L BUN/Creatinine Ratio 8.9 Blood Urea Nitrogen 7 mg/dl Creatinine 0.82 mg/dl Potassium Level 4.1 mmol/L Sodium Level 140 mmol/L White Blood Count 7.68 K/uL Red Blood Count 3.79 M/uL Hemoglobin 10.9 g/dL Hematocrit 34.7 % Mean Corpuscular Volume 91.6 fL Mean Corpuscular Hemoglobin 28.8 pg Mean Corpuscular Hemoglobin Concent 31.4 g/dl Platelet Count 249 K/uL Mean Platelet Volume 9.7 fL Neutrophils (%) (Auto) 71.3 % Lymphocytes (%) (Auto) 14.8 % Monocytes (%) (Auto) 9.9 % Eosinophils (%) (Auto) 2.0 % Basophils (%) (Auto) 0.3 % Neutrophils # (Auto) 5.48 K/uL Lymphocytes # (Auto) 1.14 K/uL Monocytes # (Auto) 0.76 K/uL Eosinophils # (Auto) 0.15 K/uL Basophils # (Auto) 0.02 K/uL HbA1c: Test 05/05/16 07:45 Hemoglobin A1c 6.8 % (4.5-5.6) H Recent Pertinent Medications Outpatient Anti-diabetic Regimen: * Glimepiride 4mg PO daily * Metformin 1gm PO BID * A1c = 6.8 % 05/05/16 The patient is currently receiving: * Basal insulin: Lantus 10 units every 12 hours - hold if BSG less than 120 * Correctional Insulin: Novolog Correction per scale ACHS Goal Range: Low 100 mg/dL - High 140 mg/dL Correction Factor: 30 mg/dL/unit * Prandial insulin: Per carb ratio of 1 unit per 10 grams CHO consumed * Oral Agents: Metformin 1gm PO BID w/ meals Risk Factors for Insulin Resistance: * Infection: receiving Ceftriaxone for complicated UTI * Recent Surgery: POD # 4 s/p cystoscopy w/ R ureteral stenting * Diet: ordered T2DM diet; diet appeared to be somewhat poor yesterday Assessment & Plan ASSESSMENT: 05/05/16 (from prior note) * BSGs well controlled over the past 24 hours with 15 units of insulin administered (149-155mg/dL) * continue same Lantus and NovoLog doses * eating well and anticipating discharge soon * resume metformin tonight with supper * continue to hold sulfonylureas while admitted, resume on discharge * A1c resulted and shows appropriate outpatient control 05/06/16 * Most BSGs at goal over the last 24 hrs * BSGs have ranged 137-188 over last 24 hrs * Fasting BSG elevated this AM with 20 units of Lantus on board, this was somewhat unexpected. Will not react to a single fasting BSG elevation, however if elevated again tomorrow will consider increasing basal dose. Metformin was restarted last evening and will likely help improve insulin sensitivity over the next several days. * 2 of 3 post-prandial BSGs were at goal yesterday using current CR - now that metformin on board we may see further improvement 05/07/16 * BSGs continue to improve; BSGs have ranged 132-200 over the last 24 hrs; only one BSG above 180 * Renal fxn unchanged, pt did tolerate breakfast this AM, will continue metformin * No changes required to insulin regimen at this time PLAN FOR INPATIENT GLYCEMIC CONTROL: * Continuing Lantus 10 units SQ BID; hold if BSG less than 120 * Continuing correction factor of 30 mg/dl/unit * Continuing carb ratio of 1 unit per 10 grams CHO consumed * Continuing goal range of Low 100 mg/dL - High 140 mg/dL * Continue Metformin 1gm PO BID w/ meals RECOMMENDATIONS FOR DISCHARGE: * Resume home regimen of glimepiride 4mg PO daily + metformin 1gm PO BID w/ meals * Please note that the plan above was derived based on current level of insulin resistance and hospital stress. These recommendations are appropriate for inpatient admission only. Plan of care upon discharge will need to be reassessed to avoid potential outpatient hypo/hyperglycemia. Thank you.
--- NOTE | 2016-05-07 13:58 | Cardiology Follow-Up ---
Subjective General Date of Service: May 07, 2016. Chief Complaint: right stone Pt evaluation today including: conversation w/ patient, physical exam, chart review, lab review, review of studies, conversation w/ application security consultant History of Present Illness The patient is a 60 year old female seen in follow up. Reports fatigue today. No recurrent fevers. Recurrent episode of PSVT last night. Denies CP or SOB. Offers no other complaints. Allergies Coded Allergies: Codeine (Verified Allergy, Intermediate, ITCHY AND RASH, 05/04/16) Erythromycin (Verified Allergy, Intermediate, LIQUEFACTION AND REGASIFICATION HELPER STOMACH CRAMPS, ) Gabapentin (Verified Allergy, Intermediate, swelling, 05/04/16) Potassium Chloride (Verified Allergy, Intermediate, ITCHY AND RASH, ) SPOKE W PATIENT - ALLERGIC TO *BRAND* [facility] ONLY. TAKES GENERIC OUTPATIENT. CALLED OUTPATIENT PHARMACY - CONFIRMED [facility] OF POTASSIUM CHLORIDE 10 [place] [address]-00 Amitriptyline (Verified Allergy, Mild, SWELLING, 05/04/16) Sitagliptin (Verified Allergy, Mild, Swelling , 05/04/16) Doxepin (Verified Allergy, Unknown, ., 05/04/16) Hyoscyamine (Verified Allergy, Unknown, ., 05/04/16) Adhesives (Verified Adverse Reaction, Intermediate, Tape - rash/itching, ) Uncoded Allergies: TRICYCLICS (Allergy, Intermediate, SWELLING ARM AND LEGS, 02/03/12) vagisil (Allergy, Mild, reddness, 05/15/13) Social History Smoking Status: Never Smoker Hx Tobacco Use In Past Year?: No Hx Alcohol Use - Type And Amou: No Hx Substance Use - Type And Am: No Problem List Medical Problems: (1) Calculus of proximal right ureter Status: Acute Review of Systems Respiratory: No cough, No shortness of breath, No sputum, No wheezing Cardiac: No chest pain, No claudication, No edema, No orthopnea, No palpitations Physical Exam Vital Signs Last Vital Signs Documentation Date Time Temp Pulse Resp B/P Pulse Ox O2 Delivery O2 Flow Rate FiO2 05/07/16 12:37 36.6 91 16 153/89 95 05/07/16 08:00 Room Air 05/04/16 19:00 1.5 Physical Exam Constitutional: General Apperance: well-nourished, obese Level of Distress: NAD Ambulation: ambulating normally Head: normocephalic, atraumatic ENMT: normal ENT inspection Neck: supple, trachea midline Lungs: Auscultation: breath sounds normal, no wheezing, no rales/crackles, no rhonchi Cardiovascular: Heart Auscultation: RRR, normal S1, normal S2, no murmurs Peripheral Pulses: Radial Pulse: normal on the right Abdomen: Bowel Sounds: normal Inspection & Palpation: soft, non-distended, no tenderness, guarding & rebound Extremities: no cyanosis, edema (mild non-pitting pedal edema) Neurologic: Gait & Station: pertinent finding Cranial Nerves: grossly intact Assessment and Plan Assessment and Plan FINAL IMPRESSION: 1. Paroxysmal supraventricular tachycardia, long RP, likely atrial tachycardia. -asymptomatic recurrent episode last evening 2. Mildly elevated troponin I secondary to episode of sustained supraventricular tachycardia. NBo associated chest discomfort or significant ST depressions. Previous stress testing negative for inducible ischemia in 2014. 3. History of chronic hypokalemia and hypomagnesemia. -outpatient potassium and magnesium supplement restarted. -WNL today 4. Diabetes type 2. 5. Right ureteral stone status post stent placement with proteus mirabilis UTI. 6. Hypertension, controlled. PLAN AND RECOMMENDATIONS: Increase metoprolol to 100mg BID. Blood cultures x 2. Follow electrolytes. Replace as needed. Patient ultimately will require EP follow up to consider ablation. Laboratory Results Last 24 Hours Test 05/06/16 16:38 05/06/16 20:36 05/07/16 07:47 05/07/16 08:09 Bedside Glucose 132 mg/dl 154 mg/dl 166 mg/dl White Blood Count 7.68 K/uL Red Blood Count 3.79 M/uL Hemoglobin 10.9 g/dL Hematocrit 34.7 % Mean Corpuscular Volume 91.6 fL Mean Corpuscular Hemoglobin 28.8 pg Mean Corpuscular Hemoglobin Concent 31.4 g/dl Platelet Count 249 K/uL Mean Platelet Volume 9.7 fL Neutrophils (%) (Auto) 71.3 % Lymphocytes (%) (Auto) 14.8 % Monocytes (%) (Auto) 9.9 % Eosinophils (%) (Auto) 2.0 % Basophils (%) (Auto) 0.3 % Neutrophils # (Auto) 5.48 K/uL Lymphocytes # (Auto) 1.14 K/uL Monocytes # (Auto) 0.76 K/uL Eosinophils # (Auto) 0.15 K/uL Basophils # (Auto) 0.02 K/uL RDW Standard Deviation 51.2 fL RDW Coefficient of Variation 15.2 % Immature Granulocyte % (Auto) 1.7 % Immature Granulocyte # (Auto) 0.13 K/uL Prothrombin Time 10.1 SECONDS Prothromb Time International Ratio 0.9 Sodium Level 140 mmol/L Potassium Level 4.1 mmol/L Chloride Level 106 mmol/L Carbon Dioxide Level 23 mmol/L Anion Gap 11.0 mmol/L Blood Urea Nitrogen 7 mg/dl Creatinine 0.82 mg/dl Est Creatinine Clear Calc Drug Dose 102.2 ml/min Estimated GFR () 90.8 Estimated GFR (Non- 78.3 BUN/Creatinine Ratio 8.9 Random Glucose 166 mg/dl Calcium Level 8.9 mg/dl Magnesium Level 2.1 mg/dl Test 05/07/16 11:56 Bedside Glucose 168 mg/dl
[2016-05-07] MEDS: SODIUM CHLORIDE 0.9% 1000ML 1,000 ML IV SCH (15:59)
[2016-05-07] MEDS: WARFARIN SOD 1 MG TAB PO SCH (16:01)
[2016-05-07] MEDS ORDERED: BISACODYL 10 MG SUPP PR ONE (16:45)
--- NOTE | 2016-05-07 18:14 | Progress Note ---
Internal Med Progress Note Date of Service: May 07, 2016. Provider Documentation: SUBJECTIVE: had an episode of tachycardia last night currently resting comfortably and feeling ok denies chest pain or sob afebrile eating ok feeling tired OBJECTIVE: Vital Signs-as noted below Exam: General-alert and awake and oriented. Not in distress ENT-normal hearing Neck-no neck masses Lungs-cta b/l no wheezing or crackles Heart-s1 and s2 heard, tachycardia no murmurs Abdomen-soft bowel sounds present non tender no distension Extremities-no edema no erythema Neuro-alert and awake moves extremities Lab data as noted below. ASSESSMENT & PLAN: 60 yo F with acute onset of R flank pain 2/2 obstructing R ureteral stone. 1. R ureteral stone-c 1mm stone started on Flomax and fluids pain control s/p stent placement today and cloudy urine noticed at the time of stent placement continue Rocephin plan for stone extraction later as per urology urine growing pansensitive proteus plan to d/c on po abx to complete 7 day course f/u with urology stable currently 2. DMII-ISS/Lantus/inpatient glycemic pharmacist consult will monitor blood sugars.166/166/168/129 3. PSVT in preparation for MAZE procedure as outpatient-sees Dr. Hogan. On Lopressor. will monitor.Heart rates elevated. required iv Lopressor last night seen by cardiology and Lopressor dose increased to 75mg bid PSVT mostly atrial tachycardia as per cardiology still having tachycardia Lopressor dose increased to 100mg bid will monitor 4.mild elevation of troponin mostly from PSVT No ischemic changes on ekg No Wall motion abnormalities on echo 5. Obesity and . LORE-CPAP ordered 6. Depression- home meds. 7. h/o DVT with port -on coumadin 1mg daily with no goal INR will f/u inr. 8. Fibromyalgia-cont home meds. 9. chronic lyte abnormalities on potassium and magnesium supplements will f/u labs 9. HTN-controlled, will monitor 10. Migraines. 11. RLS on requip DVT proph:hep sub q DISPOSITION possible d/c in am if stable ambulate in hallway Vital Signs: Date Time Temp Pulse Resp B/P Pulse Ox O2 Delivery O2 Flow Rate FiO2 05/07/16 16:00 95 Room Air 05/07/16 15:27 36.5 89 20 166/95 96 05/07/16 12:37 36.6 91 16 153/89 95 05/07/16 12:00 97 Room Air 05/07/16 08:00 99 Room Air 05/07/16 07:33 36.4 93 16 134/85 99 BiPAP 05/07/16 04:00 36.6 94 16 129/70 94 CPAP 05/07/16 04:00 Room Air CPAP 05/07/16 00:00 Room Air CPAP 05/06/16 23:23 36.8 102 18 155/80 96 CPAP 05/06/16 20:43 131 140/75 05/06/16 20:11 36.5 131 18 140/75 95 Room Air 05/06/16 20:00 Room Air CPAP Lab Results: Results Past 24 Hours Test 05/06/16 20:36 05/07/16 07:47 05/07/16 08:09 05/07/16 11:56 Range/Units Bedside Glucose 154 166 168 70-90 mg/dl White Blood Count 7.68 4.8-10.8 K/uL Red Blood Count 3.79 4.2-5.4 M/uL Hemoglobin 10.9 12.0-16.0 g/dL Hematocrit 34.7 37-47 % Mean Corpuscular Volume 91.6 80-100 fL Mean Corpuscular Hemoglobin 28.8 25-34 pg Mean Corpuscular Hemoglobin Concent 31.4 32-36 g/dl Platelet Count 249 130-400 K/uL Mean Platelet Volume 9.7 7.4-10.4 fL Neutrophils (%) (Auto) 71.3 % Lymphocytes (%) (Auto) 14.8 % Monocytes (%) (Auto) 9.9 % Eosinophils (%) (Auto) 2.0 % Basophils (%) (Auto) 0.3 % Neutrophils # (Auto) 5.48 1.4-6.5 K/uL Lymphocytes # (Auto) 1.14 1.2-3.4 K/uL Monocytes # (Auto) 0.76 0.11-0.59 K/uL Eosinophils # (Auto) 0.15 0-0.5 K/uL Basophils # (Auto) 0.02 0-0.2 K/uL RDW Standard Deviation 51.2 36.4-46.3 fL RDW Coefficient of Variation 15.2 11.5-14.5 % Immature Granulocyte % (Auto) 1.7 % Immature Granulocyte # (Auto) 0.13 0.00-0.02 K/uL Prothrombin Time 10.1 9.0-12.0 SECONDS Prothromb Time International Ratio 0.9 0.9-1.1 Sodium Level 140 136-145 mmol/L Potassium Level 4.1 3.5-5.1 mmol/L Chloride Level 106 98-107 mmol/L Carbon Dioxide Level 23 21-32 mmol/L Anion Gap 11.0 3-11 mmol/L Blood Urea Nitrogen 7 7-18 mg/dl Creatinine 0.82 0.60-1.20 mg/dl Est Creatinine Clear Calc Drug Dose 102.2 ml/min Estimated GFR () 90.8 Estimated GFR (Non- 78.3 BUN/Creatinine Ratio 8.9 10-20 Random Glucose 166 70-99 mg/dl Calcium Level 8.9 8.5-10.1 mg/dl Magnesium Level 2.1 1.8-2.4 mg/dl Test 05/07/16 16:26 Range/Units Bedside Glucose 129 70-90 mg/dl Microbiology Results 05/07/16 Blood Culture, Received Pending 05/07/16 Blood Culture, Received Pending
[2016-05-07] MEDS: OXYCODONE HCL IR 5 MG TAB (IMMEDIATE RELEASE) PO SCH ×2 (18:29→21:18)
[2016-05-07] MEDS: LACTULOSE SYRUP 30 GM/45 ML UDP PO ONE ×2 (18:29→23:10)
[2016-05-07] MEDS: ATORVASTATIN 20 MG TAB PO SCH (21:10)
[2016-05-07] MEDS: METOPROLOL TARTRATE 100 MG TAB PO SCH (21:11)
[2016-05-07] MEDS: MONTELUKAST SOD 10 MG TAB PO SCH (21:12)
[2016-05-07] MEDS: ACETAMINOPHEN 325 MG TAB PO PRN (21:18)
[2016-05-08] VITALS (7 sets, daily range): BP systolic 119–146; BP diastolic 56–81; PULSE 83–108; TEMP 36.6–37.1; O2SAT 91–97
[2016-05-08] MEDS: ACETAMINOPHEN 325 MG TAB PO PRN (01:17)
[2016-05-08] MEDS: HEPARIN SOD 5000 UNIT/0.5 ML CARP SQ SCH (05:51)
[2016-05-08 07:49] LABS: BASO ABS # 0.07 K/uL (0-0.2); COMPLETE YES; EOS % 2.3 %; HEMATOCRIT 32.1 % (37-47); LYMPH % 20.3 %; LYMPH ABS # 1.48 K/uL (1.2-3.4); MEAN CELL VOLUME 89.9 fL (80-100); MEAN CORPUSCULAR HEMOGLOBIN 29.4 pg (25-34); MEAN CORPUSCULAR HGB CONC 32.7 g/dl (32-36); MEAN PLATELET VOLUME 9.6 fL (7.4-10.4); MONO % 11.7 %; NEUT % 61.7 %; PLATELET COUNT 239 K/uL (130-400); RED BLOOD COUNT 3.57 M/uL (4.2-5.4); WHITE BLOOD COUNT 7.29 K/uL (4.8-10.8)
[2016-05-08 08:13] LABS: BUN/CREATININE RATIO 11.7 (10-20); CALCIUM 8.8 mg/dl (8.5-10.1); CREATININE 0.87 mg/dl (0.60-1.20); MAGNESIUM 1.9 mg/dl (1.8-2.4); POTASSIUM 4.6 mmol/L (3.5-5.1)
[2016-05-08] MEDS: METFORMIN HCL 500 MG TAB PO SCH (08:32)
[2016-05-08] MEDS: FLUTICASONE/SALMETEROL 250/50 (ADVAIR) 14 PUFF/1 INHALER INH SCH (08:33)
[2016-05-08] MEDS: METOPROLOL TARTRATE 100 MG TAB PO SCH (08:36)
[2016-05-08] MEDS: MULTIVITAMIN TAB PO SCH (08:36)
[2016-05-08] MEDS: MAGNESIUM CHLORIDE 64MG DELAYED REL TAB PO SCH (08:36)
[2016-05-08] MEDS: FLUTICASONE PROPIONATE NA SPR 16 GM BTL SCH (08:37)
[2016-05-08] MEDS: TAMSULOSIN HCL 0.4 MG CAP PO SCH (08:37)
[2016-05-08] MEDS: RANITIDINE HCL 150 MG TAB PO SCH (08:37)
[2016-05-08] MEDS: CeleBREX 100 MG CAP PO SCH (08:38)
[2016-05-08] MEDS: DULOXETINE (CYMBALTA) 30 MG CAP PO SCH (08:38)
[2016-05-08] MEDS: POTASSIUM CHLORIDE 10 MEQ PO SCH (08:39)
[2016-05-08] MEDS: TIOTROPIUM BROMIDE 5 PUFF/90 MCG INH INH SCH (08:40)
[2016-05-08] MEDS: INSULIN ASPART 100 UNITS/ML 3 ML PEN SC SCH ×2 (08:44→12:40)
[2016-05-08] MEDS: INSULIN GLARGINE SOLOSTAR 100 UNITS/ML 3 ML PEN SC SCH (08:45)
[2016-05-08] MEDS: HYDROmorphone INJ 0.5 MG/0.5 ML SYR IV PRN (08:47)
[2016-05-08] MEDS: CEFTRIAXONE SOD INJ 1 GM in DEXTROSE 5% ADD-VANTAGE 50ML 50 ML IV SCH (10:08)
[2016-05-08] MEDS: SODIUM CHLORIDE 0.9% 1000ML 1,000 ML IV SCH (12:41)
[2016-05-08] MEDS ORDERED: OXYC1TAB3 PO (13:29)
[2016-05-08] MEDS ORDERED: CEFU1TAB36 PO (13:29)
[2016-05-08] MEDS ORDERED: LPR100 PO (13:29)
--- NOTE | 2016-05-08 13:33 | Discharge Instructions ---
Discharge Instructions Admission Reason for Admission: Right Ureteral Calculus Discharge Discharge Diagnosis / Problem: Right ureteral calculus s/p stent placement, UTI , SVT Discharge Goals Goal(s): Decrease discomfort, Improve function Activity Recommendations Activity Limitations: resume your previous activity . Instructions / Follow-Up Instructions / Follow-Up FOLLOWUP WITH FAMILY DOCTOR ON May 12:50PM. FOLLOWUP WITH CARDIOLOGY IN 1-2 WEEKS FOLLOWUP WITH UROLOGY IN 1-2 WEEKS FOR KIDNEY STONE Current Hospital Diet Patient's current hospital diet: Diabetes Type 2 Diet Discharge Diet Recommended Diet: AHA Diet (Heart Healthy), Diabetes Type 2 Diet Procedures Procedures Performed: Cystoscopy; Stent Placement , right Pending Studies Studies pending at discharge: no Laboratory Results Hemoglobin A1c Test 05/05/16 07:45 Range/Units Estimated Average Glucose 148 mg/dl Hemoglobin A1c 6.8 H 4.5-5.6 % Medical Emergencies . Who to Call and When: Medical Emergencies: If at any time you feel your situation is an emergency, please call 911 immediately. . Non-Emergent Contact Non-Emergency issues call your: Primary Care Provider . . "Provider Documentation" section prepared by Branden Hedrick. VTE Core Measure Inpt VTE Proph given/why not?: Unfractionated heparin SQ, Warfarin (Coumadin)
--- NOTE | 2016-05-08 19:58 | Progress Note ---
Internal Med Progress Note Date of Service: May 08, 2016. Provider Documentation: SUBJECTIVE: resting comfortably denies chest pain or sob says had a brief episode of palpitations last night but doing ok now ok to go home OBJECTIVE: Vital Signs-as noted below Exam: General-alert and awake and oriented. Not in distress ENT-normal hearing Neck-no neck masses Lungs-cta b/l no wheezing or crackles Heart-s1 and s2 heard, regular no murmurs Abdomen-soft bowel sounds present non tender no distension Extremities-no edema no erythema Neuro-alert and awake moves extremities Lab data as noted below. ASSESSMENT & PLAN: 60 yo F with acute onset of R flank pain 2/2 obstructing R ureteral stone. 1. R ureteral stone-c 1mm stone started on Flomax and fluids pain control s/p stent placement today and cloudy urine noticed at the time of stent placement continue Rocephin plan for stone extraction later as per urology urine growing pansensitive proteus discharged on cefuroxime on po abx to complete 7-10 day course f/u with urology in 1-2 weeks stable currently 2. DMII-ISS/Lantus/inpatient glycemic pharmacist consult will monitor blood sugars. 3. PSVT in preparation for MAZE procedure as outpatient-sees Dr. Hogan. On Lopressor. will monitor.Heart rates elevated. required iv Lopressor last night seen by cardiology and Lopressor dose increased to 75mg bid PSVT mostly atrial tachycardia as per cardiology still having tachycardia Lopressor dose increased to 100mg bid will monitor f/u with cardiology 4.mild elevation of troponin mostly from PSVT No ischemic changes on ekg No Wall motion abnormalities on echo 5. Obesity and . LORE-CPAP ordered 6. Depression- home meds. 7. h/o DVT with port -on coumadin 1mg daily with no goal INR will f/u inr. 8. Fibromyalgia-cont home meds. 9. chronic lyte abnormalities on potassium and magnesium supplements will f/u labs 9. HTN-controlled, will monitor 10. Migraines. 11. RLS on requip discharged home Vital Signs: Date Time Temp Pulse Resp B/P Pulse Ox O2 Delivery O2 Flow Rate FiO2 05/08/16 13:42 36.8 83 20 97 Room Air 05/08/16 12:00 97 Room Air 05/08/16 11:21 36.8 83 20 121/78 95 05/08/16 08:00 95 Room Air 05/08/16 07:51 36.6 90 20 146/81 95 05/08/16 04:00 36.6 108 18 119/70 95 CPAP 05/08/16 00:00 37.1 98 20 141/56 91 Room Air 05/08/16 00:00 Room Air CPAP 05/07/16 20:00 Room Air Lab Results: Results Past 24 Hours Test 05/07/16 20:36 05/08/16 07:28 05/08/16 07:39 05/08/16 11:10 Range/Units Bedside Glucose 131 151 169 70-90 mg/dl White Blood Count 7.29 4.8-10.8 K/uL Red Blood Count 3.57 4.2-5.4 M/uL Hemoglobin 10.5 12.0-16.0 g/dL Hematocrit 32.1 37-47 % Mean Corpuscular Volume 89.9 80-100 fL Mean Corpuscular Hemoglobin 29.4 25-34 pg Mean Corpuscular Hemoglobin Concent 32.7 32-36 g/dl Platelet Count 239 130-400 K/uL Mean Platelet Volume 9.6 7.4-10.4 fL Neutrophils (%) (Auto) 61.7 % Lymphocytes (%) (Auto) 20.3 % Monocytes (%) (Auto) 11.7 % Eosinophils (%) (Auto) 2.3 % Basophils (%) (Auto) 1.0 % Neutrophils # (Auto) 4.50 1.4-6.5 K/uL Lymphocytes # (Auto) 1.48 1.2-3.4 K/uL Monocytes # (Auto) 0.85 0.11-0.59 K/uL Eosinophils # (Auto) 0.17 0-0.5 K/uL Basophils # (Auto) 0.07 0-0.2 K/uL RDW Standard Deviation 49.2 36.4-46.3 fL RDW Coefficient of Variation 15.0 11.5-14.5 % Immature Granulocyte % (Auto) 3.0 % Immature Granulocyte # (Auto) 0.22 0.00-0.02 K/uL Sodium Level 141 136-145 mmol/L Potassium Level 4.6 3.5-5.1 mmol/L Chloride Level 111 98-107 mmol/L Carbon Dioxide Level 19 21-32 mmol/L Anion Gap 11.0 3-11 mmol/L Blood Urea Nitrogen 10 7-18 mg/dl Creatinine 0.87 0.60-1.20 mg/dl Est Creatinine Clear Calc Drug Dose 96.3 ml/min Estimated GFR () 84.5 Estimated GFR (Non- 72.9 BUN/Creatinine Ratio 11.7 10-20 Random Glucose 154 70-99 mg/dl Calcium Level 8.8 8.5-10.1 mg/dl Magnesium Level 1.9 1.8-2.4 mg/dl Chemistry Specimen Hemolysis
--- NOTE | 2016-05-08 20:14 | Discharge Summary ---
Discharge Summary Date of Service May 08, 2016. Discharge Summary Admission Date: May 04, 2016 at 04:00 Discharge Date: May 08, 2016 Discharge Disposition: Home Principal Diagnosis: RENAL CALCULUS UTI PSVT Secondary Diagnoses/Problems: (1) Asthma Status: Chronic (2) Breast cancer (3) Degeneration of cervical intervertebral disc Status: Chronic (4) Depressive disorder Status: Chronic (5) Diabetes mellitus, type II Status: Chronic (6) DVT (deep venous thrombosis) Status: Chronic (7) Fibromyalgia Status: Chronic (8) Gastroesophageal reflux disease Status: Chronic (9) History of breast cancer Status: Chronic (10) History of DVT (deep vein thrombosis) Status: Chronic (11) Hypertension Status: Chronic (12) Lymphedema Status: Chronic (13) Migraine headache Status: Chronic (14) Obstructive sleep apnea syndrome Status: Chronic (15) Restless legs syndrome Status: Chronic Procedures: CT ABDOMEN/PELVIS: 1. There is a 1.9 cm obstructing calculus in the right proximal ureter. This causes moderate right-sided hydronephrosis. 2. There are at least 2 additional nonobstructing right renal calculi. 3. Hepatomegaly and severe hepatic steatosis. 4. Splenomegaly. 5. Mild colonic diverticulosis without CT evidence of acute diverticulitis. 6. Additional changes as detailed above. KUB: Intraoperative fluoroscopic spot image demonstrating the proximal portion of the patient's right nephroureteral stent VENOUS DOPPLER:Technically difficult exam due to suboptimal penetration. No evidence of deep venous thrombus within the bilateral lower extremities. ECHO: * The rhythm is sinus tachycardia. * Left ventricular systolic function is normal. * Ejection Fraction = 60-65%. * No regional wall motion abnormalities noted. * There is mild mitral regurgitation. Compared to prior study, mild mitral regurgitation is present Consultations: UROLOGY CARDIOLOGY Medication Reconciliation New Medications: Cefuroxime Axetil (Cefuroxime Axetil) 500 Mg Tab 1 TAB PO BID for 5 Days, #10 TAB Metoprolol Tartrate (Metoprolol Tartrate) 100 Mg Tab 100 MG PO BID, #60 TAB 2 Refills Changed Medications: Oxycodone Immediate Rel Tab (Roxicodone Ir) 5 Mg Tab 5 MG PO BID PRN for Pain, #16 TAB (Medication details modified) Continued Medications: Acetaminophen (Tylenol Arthitis Ext Rel) 650 Mg Ertab 1300 MG PO QPM, CAP Atorvastatin (Lipitor) 20 Mg Tab 20 MG PO HS, TAB Azelastine Hcl (Astepro) 0.15 % Spr 2 SPRY MISHEL BID for 30 Days, #30 ML 5 Refills Celecoxib (Celebrex) 100 Mg Cap 100 MG PO BID for 30 Days, #60 CAP Duloxetine Hcl (Cymbalta) 30 Mg Cap 30 MG PO HS, CAP Duloxetine HCl (Cymbalta) 30 Mg Cap 60 MG PO QAM for 30 Days, #30 CAP 2 Refills Fluticasone Prop/Salmeterol (Advair Diskus 250/50 60 Dose) 1 Ea Aerp 1 PUFF INH BID, INHALER Glimepiride (Glimepiride) 4 Mg Tab 4 MG PO DAILY L-Methylfolate W/ Algae-Vitami (Metanx) 1 Cap Cap 1 CAP PO BID Levalbuterol Hcl (Levalbuterol) 1.25 Mg/0.5 Ml Neb 1.25 MG INH Q4 PRN for Wheezing Levalbuterol Tartrate (Levalbuterol Tartrate Hfa) 45 Mcg/Act Aer 2 PUFFS INH Q4 PRN for SOB/Wheezing Loperamide Hcl (Imodium) 2 Mg Cap 2 MG PO PRN, CAP Magnesium Chloride (Slow-Mag Tab) 64 Mg Tabcr 3 TAB PO QAM, TAB Magnesium Chloride (Slow-Mag Tab) 64 Mg Tabcr 2 TABS PO QPM, TAB Metformin Hcl (Glucophage) 1,000 Mg Tab 1000 MG PO BID, TAB Montelukast Sodium (Singulair) 10 Mg Tab 10 MG PO HS, TAB Multiple Vitamin (Multi-Vitamin Daily) 1 Tab Tab 1 TAB PO DAILY Potassium Ext Rel (Klor-Con) 20 Meq Tabcr 20 MEQ PO BID, TAB Ranitidine (Zantac) 150 Mg Tab 1 TAB PO BID for 30 Days, #60 TAB 3 Refills Ropinirole (Requip) 0.5 Mg Tab 0.5 MG PO HS PRN for restless legs, TAB Tiotropium [place] (Spiriva Handihaler) 30 Puff/540 Mcg Aerp 1 CAP INH DAILY, INHALER Warfarin Sodium (Coumadin) 1 Mg Tab 1 MG PO DAILY, TAB Discontinued Medications: Metoprolol Tartrate (Lopressor) 50 Mg Tab 50 MG PO BID, TAB Admission Information HPI (per Admitting provider): 60 yoF with acute onset of nausea and R flank pain earlier this evening, found to have an 11mm obstructing calculus in R ureter. She describes nausea without vomiting and had severe R flank pain that wrapped around her side and down into her groin area. She denies any gross blood, and was recently being worked up by Dr. Joseph for proteinuria. She denies a history of nephrolithiasis in past. Physical Exam (per Admitting): GEN: WNWD, in no acute distress, alert and appropriate HEENT: NC/AT, PERRL, normal sclerae, mucous membranes are dry CARDIO: tachy rate, S1/2 heard without m/g/r LUNGS: CTA bilaterally, no crackles, rales or wheezes, good diaphragmatic excursion ABD: soft, min tender on the R flank, non-distended, no rebound or guarding, min CVA tenderness on the right EXTREMITY: RP and DP palpable 2+ bilat, no LE swelling or edema, extremities are warm and well-perfused NEURO: CN 2-12 grossly intact, sensation intact throughout MUSC: moves all extremities equally, no gross focal deficits. SKIN: warm and dry Hospital Course 60 yo F with acute onset of R flank pain 2/2 obstructing R ureteral stone. 1. R ureteral stone-c 1mm stone started on Flomax and fluids pain control s/p stent placement today and cloudy urine noticed at the time of stent placement continue Rocephin plan for stone extraction later as per urology urine growing pansensitive proteus discharged on cefuroxime on po abx to complete 7-10 day course f/u with urology in 1-2 weeks stable currently 2. DMII-ISS/Lantus/inpatient glycemic pharmacist consult will monitor blood sugars. 3. PSVT in preparation for MAZE procedure as outpatient-sees Dr. Hogan. On Lopressor. will monitor.Heart rates elevated. required iv Lopressor last night seen by cardiology and Lopressor dose increased to 75mg bid PSVT mostly atrial tachycardia as per cardiology still having tachycardia Lopressor dose increased to 100mg bid will monitor f/u with cardiology 4.mild elevation of troponin mostly from PSVT No ischemic changes on ekg No Wall motion abnormalities on echo 5. Obesity and . LORE-CPAP ordered 6. Depression- home meds. 7. h/o DVT with port -on coumadin 1mg daily with no goal INR will f/u inr. 8. Fibromyalgia-cont home meds. 9. chronic lyte abnormalities on potassium and magnesium supplements will f/u labs 9. HTN-controlled, will monitor 10. Migraines. 11. RLS on requip discharged home Total time spent on discharge = 40MINUTES This includes examination of the patient, discharge planning, medication reconciliation, and communication with other providers. Discharge Instructions Discharge Instructions Admission Reason for Admission: Right Ureteral Calculus Discharge Discharge Diagnosis / Problem: Right ureteral calculus s/p stent placement, UTI , SVT Discharge Goals Goal(s): Decrease discomfort, Improve function Activity Recommendations Activity Limitations: resume your previous activity . Instructions / Follow-Up Instructions / Follow-Up FOLLOWUP WITH FAMILY DOCTOR ON May 12:50PM. FOLLOWUP WITH CARDIOLOGY IN 1-2 WEEKS FOLLOWUP WITH UROLOGY IN 1-2 WEEKS FOR KIDNEY STONE Current Hospital Diet Patient's current hospital diet: Diabetes Type 2 Diet Discharge Diet Recommended Diet: AHA Diet (Heart Healthy), Diabetes Type 2 Diet Procedures Procedures Performed: Cystoscopy; Stent Placement , right Pending Studies Studies pending at discharge: no Laboratory Results Hemoglobin A1c Test 05/05/16 07:45 Range/Units Estimated Average Glucose 148 mg/dl Hemoglobin A1c 6.8 H 4.5-5.6 % Medical Emergencies . Who to Call and When: Medical Emergencies: If at any time you feel your situation is an emergency, please call 911 immediately. . Non-Emergent Contact Non-Emergency issues call your: Primary Care Provider . . "Provider Documentation" section prepared by Branden Hedrick. VTE Core Measure Inpt VTE Proph given/why not?: Unfractionated heparin SQ, Warfarin (Coumadin)
[2016-05-20] MEDS ORDERED: METO25TA3 PO (14:24)
[2016-05-20] MEDS ORDERED: METO50TA16 PO (14:24)
[2016-05-20] MEDS ORDERED: OXYC1TAB3 PO (14:24)
[2016-05-21] MEDS ORDERED: METO-217 PO (11:48)
[2016-05-21] MEDS ORDERED: METO50TA7 PO (11:48)
[2016-05-21] MEDS ORDERED: [UNRECOGNIZED DRUG - OTHER] PO (11:52)
[2016-05-21] MEDS ORDERED: BISA-16 PO (11:52)
[2016-05-21] MEDS ORDERED: TRIA1SPR9 NAE (11:52)
[2016-06-02] MEDS ORDERED: OXYC1TAB3 PO (11:18)
[2016-08-08] MEDS ORDERED: CYM/30 PO (10:55)
[2016-08-08] MEDS ORDERED: LPR25 PO (10:55)
[2016-08-08] MEDS ORDERED: BTP80 PO (10:55)
[2016-08-08] MEDS ORDERED: CMD5 PO (10:55)
== END 2016-05-08 15:15 | disposition home or self-care (01) | DRG 694 ==
LOC: ENRESERVDT → ENRESERVTM → EDBD 23:27 → C.EDB 23:28 → C.MS2W 05-04 04:00 → EDBEDREQSVC 05-04 04:42 → EDBEDREQ 05-04 05:06 → CANBEDREQ 05-05 17:36 → C.MED 05-05 18:23
PROVIDERS: ADMIT Hospitalist; ATTEND Internal Medicine
PROC: 0T768DZ Dilation of Right Ureter with Intraluminal Device, Via Natural or Artificial Opening Endoscopic (ICD-10-PCS; principal; 2016-05-04 07:30)
DX: N13.2 Hydronephrosis with renal and ureteral calculous obstruction (principal); I47.1 Supraventricular tachycardia; N39.0 Urinary tract infection, site not specified; E11.9 Type 2 diabetes mellitus without complications; K21.9 Gastro-esophageal reflux disease without esophagitis; M79.7 Fibromyalgia; F32.9 Major depressive disorder, single episode, unspecified; M50.30 Other cervical disc degeneration, unspecified cervical region; Z86.718 Personal history of other venous thrombosis and embolism; G47.33 Obstructive sleep apnea (adult) (pediatric); Z79.01 Long term (current) use of anticoagulants; E66.9 Obesity, unspecified; G43.909 Migraine, unspecified, not intractable, without status migrainosus; K76.0 Fatty (change of) liver, not elsewhere classified; Z87.891 Personal history of nicotine dependence; Z85.3 Personal history of malignant neoplasm of breast; I10 Essential (primary) hypertension; B96.4 Proteus (mirabilis) (morganii) as the cause of diseases classified elsewhere

== ENCOUNTER → 2016-05-20 | Outpatient (CLI) | payer OTHER ==
[~2016-05-20] MED LIST changes: +AZEL0.15 NAE; +BISA-16 PO; +BTP80 PO; -BUPR-267 PO; +CLB100 PO; +CMD5 PO; +LEVA45AE INH; -LOSA1TAB PO; +LPR100 PO; +LPR25 PO; +METO-217 PO; -METO-551 PO; +METO25TA3 PO; +METO50TA16 PO; +METO50TA7 PO; -ONDA4TAB46 PO; -POTA-335 PO; +POTA-65 PO; +POTA20TA16 PO; +SPRIN/30 INH; -TIOTCAP INH; +TRIA1SPR9 NAE; +VERA120T65 PO; -XPNIN INH; +[UNRECOGNIZED DRUG - OTHER] PO
[2016-05-20 13:58] VITALS: BP 115/73; PULSE 119; TEMP 36.9; O2SAT 96
--- NOTE | 2016-05-21 07:51 | Radiation Oncology Follow-Up ---
Radiation Oncology Follow-Up Date of Visit May 20, 2016. Reason For Visit Annual follow-up Radiation Completion Date finished 09-15-2011 Diagnosis (1) Breast cancer Status: Resolved Stage: lll Permanent Comment: Abnormal left breast mammogram 07/24/2010 Ultrasound-guided biopsy with finding of invasive adenocarcinoma Estrogen receptor negative, progesterone receptor negative, HER-2/mario negative Family history with genetic testing positive for BRCA1 mutation Status post bilateral mastectomies left breast stage pT3 pN2a M0 Immediate breast reconstruction with bilateral tissue expanders Removal of left tissue weld inspector due to infection November 2010 Removal of right breast tissue weld inspector due to infection December 2010 Status post chemotherapy with TAC Status post completion of radiation therapy 09/15/2011 received 6120 cGy Last Edited By: Barbara White on May 20, 2015 14:33 Interim History She denies any changes to the chest wall. She has mild discomfort which is unchanged from previous. She has lymphedema and is seen on a weekly basis at [facility]. Compression sleeves has been tried for her. Unfortunately she has reaction to many types of maternal and therefore cannot use a sleeves. She continues the weekly physical therapy which she feels helps the swelling of her arm. She also receives treatment to the fibrous tissue of the chest wall. She has had multiple health issues over the past year and has been hospitalized. Most recently she was hospitalized for ureterolithiasis. She is currently undergoing lithotripsy. She also has atrial fibrillation and that is planned in the future she will be having an ablation. Following her chemotherapy she had gastroparesis. She feels that this is steadily improving. She has now been able to steadily increased different types of food in her diet. Allergies Coded Allergies: Codeine (Verified Allergy, Intermediate, ITCHY AND RASH, 05/04/16) Erythromycin (Verified Allergy, Intermediate, GEOSPATIAL SCIENTIST STOMACH CRAMPS, ) Gabapentin (Verified Allergy, Intermediate, swelling, 05/04/16) Potassium Chloride (Verified Allergy, Intermediate, ITCHY AND RASH, ) SPOKE W PATIENT - ALLERGIC TO *BRAND* KL[facility]-CON ONLY. TAKES GENERIC OUTPATIENT. CALLED OUTPATIENT PHARMACY - CONFIRMED [facility]DC OF POTASSIUM CHLORIDE 10 [place] [address]74 Amitriptyline (Verified Allergy, Mild, SWELLING, 05/04/16) Sitagliptin (Verified Allergy, Mild, Swelling , 05/04/16) Doxepin (Verified Allergy, Unknown, ., 05/04/16) Hyoscyamine (Verified Allergy, Unknown, ., 05/04/16) Adhesives (Verified Adverse Reaction, Intermediate, Tape - rash/itching, ) Uncoded Allergies: TRICYCLICS (Allergy, Intermediate, SWELLING ARM AND LEGS, 02/03/12) vagisil (Allergy, Mild, reddness, 05/15/13) Home Medications Scheduled Atorvastatin (Lipitor), 20 MG PO HS Celecoxib (Celebrex), 100 MG PO BID Duloxetine HCl (Cymbalta), 60 MG PO QAM Duloxetine Hcl (Cymbalta), 30 MG PO HS Fluticasone Prop/Salmeterol (Advair Diskus 250/50 60 Dose), 1 PUFF INH BID Glimepiride (Glimepiride), 4 MG PO DAILY L-Methylfolate W/ Algae-Vitami (Metanx), 1 CAP PO BID Loperamide Hcl (Imodium), 2 MG PO PRN Magnesium Chloride (Slow-Mag Tab), 3 TAB PO QAM Magnesium Chloride (Slow-Mag Tab), 2 TABS PO QPM Metformin Hcl (Glucophage), 1,000 MG PO BID Metoprolol Succinate (Toprol Xl), 75 MG PO HS Metoprolol Tartrate (Lopressor) (Lopressor), 1 TAB PO DAILY Montelukast Sodium (Singulair), 10 MG PO HS Multiple Vitamin (Multi-Vitamin Daily), 1 TAB PO DAILY Potassium Ext Rel (Klor-Con), 20 MEQ PO BID Ranitidine (Zantac), 1 TAB PO BID Tiotropium [place] (Spiriva Handihaler), 1 CAP INH DAILY Warfarin Sodium (Coumadin), 1 MG PO DAILY Scheduled PRN Acetaminophen (Tylenol Arthitis Ext Rel), 1,300 MG PO QPM PRN for Headache or Pain Azelastine Hcl (Astepro), 2 SPRY MISHEL BID PRN for Nasal Congestion Levalbuterol Hcl (Levalbuterol), 1.25 MG INH Q4 PRN for Wheezing Levalbuterol Tartrate (Levalbuterol Tartrate Hfa), 2 PUFFS INH Q4 PRN for SOB/ Wheezing Oxycodone Ir (Roxicodone Ir), 5 MG PO BID PRN for Severe Pain Ropinirole (Requip), 0.5 MG PO HS PRN for restless legs Review of Systems Gastrointestinal: Symptoms: Nausea GI Comments: nausea comes and goes, has diarrhea all the francine IBS ? Oral: Symptoms: Scant Saliva/Dry Mouth Respiratory: Symptoms: Dry Cough, SOB With Exertion Respiratory Comments: Chronic Rhinitis & Nasal Drainage, dry an moist cough depends Other Respiratory: " has Asthma " Urinary: Symptoms: WNL Comments: bleeding in urine since stents were placed, burning, possible UTI Skin: Symptoms: No Problems Breast: Right Upper Arm Measurement: 47.0 Right Mid Arm Measurement: 32.5 Right Wrist Measurement: 18.0 Left Upper Arm Measurement: 47.5 Left Mid Arm Measurement: 37.0 Left Wrist Measurement: 19.0 Arm Dominence: Right Patient Cosmetic Evaluation: Good Staff Cosmetic Evalaluation: Good Cosmetic Comments: Patient finished with lymphedema clinic - but planning on going back Physical Exam Vital Signs Date Time Temp Pulse Resp B/P Pulse Ox O2 Delivery O2 Flow Rate FiO2 05/20/16 13:58 36.9 119 20 115/73 96 Pain: Pain Onset: several months Pain Duration: gets severe at times, but pain is decreased since the stent was placed Side: Right Pain Location: None Patient Pain Scale: 0 - 10 Initial Pain Intensity: 3.0 Pain Description: Aching Additional Comments: gets worse at times Fatigue: Mild General Appearance: + obese Eyes: normal inspection, EOMI ENT: normal ENT inspection, hearing grossly normal Neck: no adenopathy, thyroid normal Respiratory/Chest: lungs clear, no respiratory distress, no accessory muscle use Breast: Status post bilateral mastectomies. There are mild fibrous changes. She has mild telangiectasis along the incision line. There are no masses or tenderness and no axillary adenopathy bilaterally. Using the [place] score cosmesis she has a poor outcome. Cardiovascular: regular rate, rhythm, no gallop, no murmur Extremities: + pedal edema Neurologic/Psychiatric: no motor/sensory deficits, alert, + depressed affect Skin: warm/dry Lymphatic: no adenopathy Laboratory Studies Test 05/03/16 23:57 05/04/16 02:05 05/05/16 07:45 05/06/16 07:54 PTT 25.4 SECONDS (21.0-31.0) Partial Thromboplastin Ratio 1.0 Urine Color YELLOW Urine Appearance SL CLOUDY (CLEAR) Urine pH 5.5 (4.5-7.5) Urine Specific [place] >= 1.030 (1.000-1.030) Urine Protein TRACE (NEG) Urine Glucose (UA) NEG (NEG) Urine Ketones TRACE (NEG) Urine Occult Blood TRACE (NEG) Urine Nitrite NEG (NEG) Urine Bilirubin NEG (NEG) Urine Urobilinogen NEG (NEG) Urine Leukocyte Esterase SMALL (NEG) Urine RBC 0-4 /hpf (0-4) Urine WBC 10-30 /hpf (0-5) Urine Epithelial Cells 20-30 /lpf (0-5) Urine Bacteria NEG (NEG) Estimated Average Glucose 148 mg/dl Hemoglobin A1c 6.8 % (4.5-5.6) Prothrombin Time 10.5 SECONDS (9.0-12.0) Prothrombin Time INR 1.0 (0.9-1.1) Troponin I 0.286 ng/ml (0-0.045) Test 05/06/16 11:41 05/07/16 07:47 05/08/16 07:28 05/08/16 07:39 Troponin I 0.219 ng/ml (0-0.045) White Blood Count 7.68 K/uL (4.8-10.8) 7.29 K/uL (4.8-10.8) Red Blood Count 3.79 M/uL (4.2-5.4) 3.57 M/uL (4.2-5.4) Hemoglobin 10.9 g/dL (12.0-16.0) 10.5 g/dL (12.0-16.0) Hematocrit 34.7 % (37-47) 32.1 % (37-47) Mean Corpuscular Volume 91.6 fL (80-100) 89.9 fL (80-100) Mean Corpuscular Hemoglobin 28.8 pg (25-34) 29.4 pg (25-34) Mean Corpuscular Hemoglobin Concent 31.4 g/dl (32-36) 32.7 g/dl (32-36) Platelet Count 249 K/uL (130-400) 239 K/uL (130-400) Mean Platelet Volume 9.7 fL (7.4-10.4) 9.6 fL (7.4-10.4) Neutrophils (%) (Auto) 71.3 % 61.7 % Lymphocytes (%) (Auto) 14.8 % 20.3 % Monocytes (%) (Auto) 9.9 % 11.7 % Eosinophils (%) (Auto) 2.0 % 2.3 % Basophils (%) (Auto) 0.3 % 1.0 % Neutrophils # (Auto) 5.48 K/uL (1.4-6.5) 4.50 K/uL (1.4-6.5) Lymphocytes # (Auto) 1.14 K/uL (1.2-3.4) 1.48 K/uL (1.2-3.4) Monocytes # (Auto) 0.76 K/uL (0.11-0.59) 0.85 K/uL (0.11-0.59) Eosinophils # (Auto) 0.15 K/uL (0-0.5) 0.17 K/uL (0-0.5) Basophils # (Auto) 0.02 K/uL (0-0.2) 0.07 K/uL (0-0.2) RDW Standard Deviation 51.2 fL (36.4-46.3) 49.2 fL (36.4-46.3) RDW Coefficient of Variation 15.2 % (11.5-14.5) 15.0 % (11.5-14.5) Immature Granulocyte % (Auto) 1.7 % 3.0 % Immature Granulocyte # (Auto) 0.13 K/uL (0.00-0.02) 0.22 K/uL (0.00-0.02) Prothrombin Time 10.1 SECONDS (9.0-12.0) Prothrombin Time INR 0.9 (0.9-1.1) Sodium Level 140 mmol/L (136-145) 141 mmol/L (136-145) Potassium Level 4.1 mmol/L (3.5-5.1) 4.6 mmol/L (3.5-5.1) Chloride Level 106 mmol/L (98-107) 111 mmol/L (98-107) Carbon Dioxide Level 23 mmol/L (21-32) 19 mmol/L (21-32) Anion Gap 11.0 mmol/L (3-11) 11.0 mmol/L (3-11) Blood Urea Nitrogen 7 mg/dl (7-18) 10 mg/dl (7-18) Creatinine 0.82 mg/dl (0.60-1.20) 0.87 mg/dl (0.60-1.20) Est Creatinine Clear Calc Drug Dose 102.2 ml/min 96.3 ml/min Estimated GFR () 90.8 84.5 Estimated GFR (Non- 78.3 72.9 BUN/Creatinine Ratio 8.9 (10-20) 11.7 (10-20) Random Glucose 166 mg/dl (70-99) 154 mg/dl (70-99) Calcium Level 8.9 mg/dl (8.5-10.1) 8.8 mg/dl (8.5-10.1) Magnesium Level 2.1 mg/dl (1.8-2.4) 1.9 mg/dl (1.8-2.4) POC Glucose 151 mg/dl (70-90) Chemistry Specimen Hemolysis Test 05/08/16 11:10 POC Glucose 169 mg/dl (70-90) Assessment & Plan Plan: Continue regular follow-up with her primary care provider as well as Dr. Shoemaker. She is following with Dr. mSith in regards to the ureterolithiasis. A follow-up appointment with our office was not given she may call if she has any questions or concerns we be happy to see her. She'll continue treatment with [facility] for the lymphedema and fiber changes of the chest wall. Total Time In Follow-Up I spent 20 minutes speaking to the patient and performing examination. I sent 15 minutes reviewing information in completing this note. Copy To Hortensia Crane M.D.; Abdirizak Shoemaker M.D.
== END | disposition home or self-care (01) ==
LOC: C.ONC 13:27
PROVIDERS: ATTEND Physician Assistant Medical
DX: Z08 Encounter for follow-up examination after completed treatment for malignant neoplasm (principal); Z92.3 Personal history of irradiation; Z85.3 Personal history of malignant neoplasm of breast

== ENCOUNTER → 2016-06-02 | Day surgery (SDC) | payer OTHER ==
[2016-05-21 11:56] VITALS: BMI 48.0
--- NOTE | 2016-05-21 12:32 | PAT Medication Instructions ---
Service Date May 21, 2016. Current Home Medication List Acetaminophen (Tylenol Arthitis Ext Rel), 1,300 MG PO QPM PRN for Headache or Pain Atorvastatin (Lipitor), 20 MG PO HS Bisacodyl (Dulcolax), 1 TAB PO UD PRN for PRN Celecoxib (Celebrex), 100 MG PO BID Duloxetine HCl (Cymbalta), 60 MG PO QAM Duloxetine Hcl (Cymbalta), 30 MG PO HS Fluticasone Prop/Salmeterol (Advair Diskus 250/50 60 Dose), 1 PUFF INH BID Glimepiride (Glimepiride), 4 MG PO QAM L-Methylfolate W/ Vitamin B6-V (Foltanx), 1 TAB PO BID Levalbuterol Hcl (Levalbuterol), 1.25 MG INH Q4 PRN for Wheezing Levalbuterol Tartrate (Levalbuterol Tartrate Hfa), 2 PUFFS INH Q4 PRN for SOB/ Wheezing Loperamide Hcl (Imodium), 4 MG PO PRN Magnesium Chloride (Slow-Mag Tab), 3 TAB PO QAM Magnesium Chloride (Slow-Mag Tab), 2 TABS PO QPM Metformin Hcl (Glucophage), 1,000 MG PO BID Metoprolol Succ (Toprol Xl) (Toprol-Xl), 75 MG PO QPM Metoprolol Succinate (Toprol Xl), 50 MG PO QAM Montelukast Sodium (Singulair), 10 MG PO HS Multiple Vitamin (Multi-Vitamin Daily), 1 TAB PO QPM Oxycodone Ir (Roxicodone Ir), 5 MG PO PM/HS Potassium Ext Rel (Klor-Con), 20 MEQ PO BID Ranitidine (Zantac), 1 TAB PO BID Ropinirole (Requip), 0.5 MG PO HS PRN for restless legs Tiotropium Vivian (Spiriva Handihaler), 1 CAP INH QAM Triamcinolone Acetonide (Nasal (Nasacort Allergy 24Hr Chi), 1 SPRAY MISHEL HS Warfarin Sodium (Coumadin), 1 MG PO QAM Medication Instructions For Your Scheduled Surgery - Hold the following medications 48 hours prior to surgery: Metformin Hcl (Glucophage), 1,000 MG PO BID - Hold the following medications 24 hours prior to surgery: Ropinirole (Requip), 0.5 MG PO HS PRN for restless legs - Hold the following medications the morning of surgery: Bisacodyl (Dulcolax), 1 TAB PO UD PRN for PRN Celecoxib (Celebrex), 100 MG PO BID Glimepiride (Glimepiride), 4 MG PO QAM Duloxetine HCl (Cymbalta), 60 MG PO QAM L-Methylfolate W/ Vitamin B6-V (Foltanx), 1 TAB PO BID Loperamide Hcl (Imodium), 4 MG PO PRN Magnesium Chloride (Slow-Mag Tab), 3 TAB PO QAM Potassium Ext Rel (Klor-Con), 20 MEQ PO BID - Take the following medications the morning of surgery with a sip of water OTHERWISE NOTHING TO EAT OR DRINK AFTER MIDNIGHT: Warfarin Sodium (Coumadin), 1 MG PO QAM (okay to continue per surgeon) Fluticasone Prop/Salmeterol (Advair Diskus 250/50 60 Dose), 1 PUFF INH BID Levalbuterol Hcl (Levalbuterol), 1.25 MG INH Q4 PRN for Wheezing (use if needed ; BRING TO HOSPITAL) Levalbuterol Tartrate (Levalbuterol Tartrate Hfa), 2 PUFFS INH Q4 PRN for SOB/ Wheezing Ranitidine (Zantac), 1 TAB PO BID Tiotropium Viv[place] (Spiriva Handihaler), 1 CAP INH QAM Metoprolol Succinate (Toprol Xl), 50 MG PO QAM - Take the following medications as scheduled the night before surgery: Acetaminophen (Tylenol Arthitis Ext Rel), 1,300 MG PO QPM PRN for Headache or Pain Atorvastatin (Lipitor), 20 MG PO HS Bisacodyl (Dulcolax), 1 TAB PO UD PRN for PRN Celecoxib (Celebrex), 100 MG PO BID Duloxetine Hcl (Cymbalta), 30 MG PO HS Fluticasone Prop/Salmeterol (Advair Diskus 250/50 60 Dose), 1 PUFF INH BID Levalbuterol Hcl (Levalbuterol), 1.25 MG INH Q4 PRN for Wheezing L-Methylfolate W/ Vitamin B6-V (Foltanx), 1 TAB PO BID Loperamide Hcl (Imodium), 4 MG PO PRN Montelukast Sodium (Singulair), 10 MG PO HS Multiple Vitamin (Multi-Vitamin Daily), 1 TAB PO QPM Metoprolol Succ (Toprol Xl) (Toprol-Xl), 75 MG PO QPM Magnesium Chloride (Slow-Mag Tab), 2 TABS PO QPM Ranitidine (Zantac), 1 TAB PO BID Potassium Ext Rel (Klor-Con), 20 MEQ PO BID Oxycodone Ir (Roxicodone Ir), 5 MG PO PM/HS Triamcinolone Acetonide (Nasal (Nasacort Allergy 24Hr Chi), 1 SPRAY MISHEL HS Levalbuterol Tartrate (Levalbuterol Tartrate Hfa), 2 PUFFS INH Q4 PRN for SOB/ Wheezing If you have any questions please call us at [phone] or [phone] or [phone]
[~2016-06-02] VITALS: Ht 165.1 cm; Wt 130.8 kg
[~2016-06-02] MED LIST changes: +AMPICILLIN IV 2,000 MG in SODIUM CHLOR 0.9% AD-VAN 100ML 100 ML IV SCH; +ATROPINE SULFATE 0.1 MG/ML 5ML SYR IV PRN; -AZEL0.15 NAE; +BELLADONNA/OPIUM SUPP 60 MG SUPP PR ONE; +DEXAMETHASONE SOD INJ 4 MG/ML VIAL ONE; +DiphenhydrAMINE HCL 50 MG/ML VIAL ONE; +EpHEDrine SULFATE INJ 50 MG/ML AMP IV PRN; +FENTANYL CITRATE INJ 50 MCG/1 ML 2 ML VIAL IV PRN; +FENTANYL CITRATE INJ 50 MCG/1 ML 2 ML VIAL ONE; +GENTAMICIN INJ 240 MG in DEXTROSE 5% 100ML 100 ML IV SCH; +HYDROmorphone INJ 0.5 MG/0.5 ML SYR IV PRN; +KETAMINE HCL INJ 50 MG/ML 10 ML VIAL ONE; -L-ME1CAP3 PO; +LABETALOL HCL IV 5 MG/ML 20ML IV PRN; +LACTATED RINGER'S 1000ML 1,000 ML IV SCH; +LIDOCAINE HCL 2% 2 ML VIAL (20MG/ML) ONE; -LPR100 PO; +MEPERIDINE HCL 25 MG/ML CARP IV PRN; -METO25TA3 PO; -METO50TA16 PO; +METOCLOPRAMIDE HCL INJ 5 MG/ML 2 ML VIAL ONE; +MIDAZOLAM HCL 1 MG/ML 2ML VIAL ONE; +ONDANSETRON INJ 2 MG/ML 2 ML VIAL IV PRN; +ONDANSETRON INJ 2 MG/ML 2 ML VIAL ONE; +PROPOFOL IV EMULSION 10 MG/ML 20 ML VIAL IV ONE; +ROCURONIUM BROMIDE 10 MG/ML 5 ML VIAL ONE; +SCOPOLAMINE 1.5 MG TDSY TD SCH; +SODIUM CHLORIDE 0.9% INJ 10 ML VIAL ONE; +SUCCINYLCHOLINE 100MG/5ML SYR IV ONE; +[UNRECOGNIZED DRUG - REMARK] SCH
[2016-06-02 08:44] VITALS: BP 130/71; PULSE 86; TEMP 36.6; Ht 165.1 cm; Wt 130.8 kg
[2016-06-02 09:20] LABS: PROTHROMBIN TIME (PATIENT) 10.4 SECONDS (9.0-12.0)
--- NOTE | 2016-06-02 09:33 | History & Physical Bridge Note ---
H&P Re-Evaluation Bridge Note: I have examined the patient, reviewed the History & Physical and in the interval since the performance of the History & Physical I have noted the following changes of clinical significance: No changes noted
--- NOTE | 2016-06-02 11:15 | [facility] Operative Report ---
Operative Report Operative Date Jun 02, 2016. Pre-Operative Diagnosis Right ureteral and renal stones, UTI Post-Operative Diagnosis same Procedure(s) Performed cystoscopy, right ureteroscopy, laser lithotripsy, basket stone extraction, stent exchange Surgeon Dr. Smith Laundry Route Driver Surgeon(s) none Estimated Blood Loss 2 cc Findings radio-lucent stones, encrusted stent Fluids 1100mL Specimens A: Right ureteral and renal stones for analysis Drains 6 fr 24 centimeter double J stent Anesthesia GET glidescope Complication(s) None Disposition Recovery Room / PACU Indications uti and obstructing right UPJ stone and 2 renal stones. She was urgently stented and had her infection treated. We now plan to remove stones. Description of Procedure Patient was given general GET with glidescope anesthesia and placed in lithotomy position. Her genitals were prepped and draped in sterile fashion. Time out held with team. I placed a 22 fr rigid cystoscope to bladder. The urethra is unremarkable. The UOs are in normal location. There is no inflammation of bladder or debris in bladder. Right Stent looks dark and moderately encrusted consistent with chronic infection. I grasped the tip of her stent and withdrew it to the meatus. It is too encrusted in channel to allow wire passage. I removed the stent and found it to be complete. I replaced the scope and guided a stiff wire up right ureter to the right kidney. I then placed a flexible ureteroscope up the right ureter under vision along side the wire. I found her ureteral stone in the kidney and used a 200 micron holmium laser fiber to fragment it into many pieces. I used a 2.2 fr zero tip basket to retrieve pieces. Her UO is edematous and there are many pieces so at this time I placed a second wire and inserted a 20 centimeter / 14 ureteral access sheath. The stone was very soft. I also removed her 2 renal stones but there are many tiny pieces still remaining which are too small to garbage pick up worker with the basket. I placed a 6 fr 24 centimeter double J stent easily. I left bladder empty and concluded case. I placed a belladonna and opium suppository for post-op pain. She transferred to recovery under my escort, in stable condition. Plan: Home today Pyridium for dysuria x 3 days flomax daily until pain free oral pain meds as needed stent removal Brent. ASA 3 dirty case 15 seconds fluoro ampicillin and gentamycin antibiotic tile conduit layer I attest to the content of the Intraoperative Record and any orders documented therein. Any exceptions are noted below.
--- NOTE | 2016-06-02 11:22 | Discharge Instructions ---
Discharge Instructions Date of Service Jun 02, 2016. Admission Reason for Admission: Kidney Stone Discharge Discharge Diagnosis / Problem: kidney stone, uti Discharge Goals Goal(s): Decrease discomfort, Improve disease control Activity Recommendations Activity Limitations: resume your previous activity Lifting Limitations: none Exercise/Sports Limitations: none May Resume Sexual Activity: when tolerated Shower/Bathe: no limitations Driving or Machine Use: resume 1 day after discharge . Instructions / Follow-Up Instructions / Follow-Up expect blood in urine for several days office will call to arrange stent removal on Tuesday drink at least 1 liter of water each day with 2-3 tablespoons of lemon juice in it. lie on your left side to encourage the right tiny kidney stone fragments to rinse out of the right kidney. use over the counter azo if you are having burning. Discharge Diet Recommended Diet: Diabetes Type 2 Diet Fluid Restriction: None Procedures Procedures Performed: Cystoscopy, Right Ureteroscopy, Laset Lithotripsy, Basket Stone Extraction, Stent Exchange Pending Studies Studies pending at discharge: no Laboratory Results Hemoglobin A1c Test 05/05/16 07:45 Range/Units Estimated Average Glucose 148 mg/dl Hemoglobin A1c 6.8 H 4.5-5.6 % Medical Emergencies . Who to Call and When: Medical Emergencies: If at any time you feel your situation is an emergency, please call 911 immediately. . Non-Emergent Contact Non-Emergency issues call your: Urologist ([phone]) Call Non-Emergent contact if: temperature is above 100.5 . . "Provider Documentation" section prepared by Germania Smith. VTE Core Measure Inpt VTE Proph given/why not?: Warfarin (Coumadin), SCD's [place] Drug Monitoring Program Search Results: patient reviewed within database, no issues identified
--- NOTE | 2016-06-02 11:52 | DIAGNOSTIC IMAGING REPORT ---
INTRAOPERATIVE RADIOGRAPHS CLINICAL HISTORY: Right-sided lithotripsy and stent exchange. Fluoroscopy time: 15 seconds. FINDINGS: 5 spot fluoroscopic views of the right abdomen and pelvis are obtained. Correlation is made with abdominal CT dated 05/04/2016. Fluoroscopic images show a right ureteral stent in place, with subsequent stent exchange. A lithotripsy device is noted IMPRESSION: Intraoperative images from a right ureteral stent exchange as above. See operative report for detailed findings. Electronically signed by: Rodolfo Lentz M.D. 06/02/2016 11:51 AM Dictated Date/Time: 06/02/2016 11:49 AM
--- NOTE | 2016-06-02 11:59 | Anesthesiology Progress Note ---
Anesthesia Post Op Note Date & Time Jun 02, 2016 at 11:59 Vital Signs Pain Intensity: 0 Vital Signs Past 12 Hours Date Time Temp Pulse Resp B/P Pulse Ox O2 Delivery O2 Flow Rate FiO2 06/02/16 11:55 87 15 157/82 93 Room Air 06/02/16 11:45 91 13 167/88 93 Room Air 06/02/16 11:35 98 17 158/94 100 Mask 10 06/02/16 11:25 96 17 168/83 100 Mask 10 06/02/16 11:17 36.0 94 16 171/88 100 Mask 10 06/02/16 08:44 36.6 86 18 130/71 Room Air Notes Mental Status: alert / awake / arousable, participated in evaluation Pt Amnestic to Procedure: Yes Nausea / Vomiting: adequately controlled Pain: adequately controlled Airway Patency, RR, SpO2: stable & adequate BP & HR: stable & adequate Hydration State: stable & adequate Anesthetic Complications: no major complications apparent
[2016-06-02 12:05] VITALS: BP 119/68; PULSE 85; TEMP 36.9; O2SAT 92
[2016-06-02 12:21] VITALS: BP 119/68; PULSE 85; TEMP 36.9; O2SAT 92
[2016-06-02 12:35] VITALS: BP 96/54; PULSE 83; TEMP 36.9; O2SAT 94
[2016-06-02 13:05] VITALS: BP 103/68; PULSE 107; TEMP 36.4; O2SAT 93
== END | disposition home or self-care (01) ==
LOC: C.ACU 08:03
PROVIDERS: ATTEND Urology
DX: N13.2 Hydronephrosis with renal and ureteral calculous obstruction (principal); N39.0 Urinary tract infection, site not specified; B96.4 Proteus (mirabilis) (morganii) as the cause of diseases classified elsewhere; K21.9 Gastro-esophageal reflux disease without esophagitis; G47.30 Sleep apnea, unspecified; Z80.3 Family history of malignant neoplasm of breast; E11.9 Type 2 diabetes mellitus without complications; E66.01 Morbid (severe) obesity due to excess calories; Z85.3 Personal history of malignant neoplasm of breast; Z15.01 Genetic susceptibility to malignant neoplasm of breast; Z15.02 Genetic susceptibility to malignant neoplasm of ovary; E78.5 Hyperlipidemia, unspecified; Z51.11 Encounter for antineoplastic chemotherapy; G25.81 Restless legs syndrome; J45.40 Moderate persistent asthma, uncomplicated; I47.1 Supraventricular tachycardia; J45.909 Unspecified asthma, uncomplicated; I73.00 Raynaud's syndrome without gangrene; Z88.8 Allergy status to other drugs, medicaments and biological substances; Z88.5 Allergy status to narcotic agent; Z91.048 Other nonmedicinal substance allergy status; Z87.891 Personal history of nicotine dependence; R01.1 Cardiac murmur, unspecified; E78.00 Pure hypercholesterolemia, unspecified; R00.2 Palpitations; F41.9 Anxiety disorder, unspecified; F32.9 Major depressive disorder, single episode, unspecified; G57.93 Unspecified mononeuropathy of bilateral lower limbs; G56.93 Unspecified mononeuropathy of bilateral upper limbs; Z86.718 Personal history of other venous thrombosis and embolism; M06.9 Rheumatoid arthritis, unspecified; M19.90 Unspecified osteoarthritis, unspecified site; Z88.1 Allergy status to other antibiotic agents

== ENCOUNTER 2016-08-04 03:08 | Inpatient (IN) | payer OTHER ==
[~2016-08-04] VITALS: Ht 165.1 cm; Wt 130.2 kg
[~2016-08-04 03:08] MED LIST changes: -AMPICILLIN IV 2,000 MG in SODIUM CHLOR 0.9% AD-VAN 100ML 100 ML IV SCH; -ATROPINE SULFATE 0.1 MG/ML 5ML SYR IV PRN; -BELLADONNA/OPIUM SUPP 60 MG SUPP PR ONE; -BTP80 PO; -CLB100 PO; -CMD5 PO; -DEXAMETHASONE SOD INJ 4 MG/ML VIAL ONE; -DiphenhydrAMINE HCL 50 MG/ML VIAL ONE; -EpHEDrine SULFATE INJ 50 MG/ML AMP IV PRN; -FENTANYL CITRATE INJ 50 MCG/1 ML 2 ML VIAL IV PRN; -FENTANYL CITRATE INJ 50 MCG/1 ML 2 ML VIAL ONE; -GENTAMICIN INJ 240 MG in DEXTROSE 5% 100ML 100 ML IV SCH; -HYDROmorphone INJ 0.5 MG/0.5 ML SYR IV PRN; -KETAMINE HCL INJ 50 MG/ML 10 ML VIAL ONE; -LABETALOL HCL IV 5 MG/ML 20ML IV PRN; -LACTATED RINGER'S 1000ML 1,000 ML IV SCH; -LIDOCAINE HCL 2% 2 ML VIAL (20MG/ML) ONE; -LPR25 PO; -MEPERIDINE HCL 25 MG/ML CARP IV PRN; -METOCLOPRAMIDE HCL INJ 5 MG/ML 2 ML VIAL ONE; -MIDAZOLAM HCL 1 MG/ML 2ML VIAL ONE; -MONT1TAB3 PO; -ONDANSETRON INJ 2 MG/ML 2 ML VIAL IV PRN; -ONDANSETRON INJ 2 MG/ML 2 ML VIAL ONE; -POTA-65 PO; -PROPOFOL IV EMULSION 10 MG/ML 20 ML VIAL IV ONE; -ROCURONIUM BROMIDE 10 MG/ML 5 ML VIAL ONE; -SCOPOLAMINE 1.5 MG TDSY TD SCH; -SODIUM CHLORIDE 0.9% INJ 10 ML VIAL ONE; -SUCCINYLCHOLINE 100MG/5ML SYR IV ONE; -VERA120T65 PO; -[UNRECOGNIZED DRUG - REMARK] SCH
[2016-08-04] MEDS ORDERED: METOPROLOL TARTRATE 1 MG/ML VIAL IV STA ×2 (03:28→04:44)
[2016-08-04 03:35] LABS: BASO % 0.3 %; BASO ABS # 0.03 K/uL (0-0.2); COMPLETE YES; EOS % 1.6 %; HEMATOCRIT 38.7 % (37-47); IG% 1.5 %; LYMPH ABS # 2.61 K/uL (1.2-3.4); MEAN CELL VOLUME 92.4 fL (80-100); MEAN CORPUSCULAR HEMOGLOBIN 29.4 pg (25-34); MEAN CORPUSCULAR HGB CONC 31.8 g/dl (32-36); MEAN PLATELET VOLUME 9.6 fL (7.4-10.4); NEUT % 62.6 %; PLATELET COUNT 299 K/uL (130-400); RED BLOOD COUNT 4.19 M/uL (4.2-5.4); WHITE BLOOD COUNT 10.45 K/uL (4.8-10.8)
[2016-08-04 03:43] LABS: INR 0.9 (0.9-1.1); PROTHROMBIN TIME (PATIENT) 9.8 SECONDS (9.0-12.0)
[2016-08-04] MEDS ORDERED: MONT1TAB3 PO (03:51)
[2016-08-04 03:53] LABS: ALT/SGPT 30 U/L (12-78); AST/SGOT 19 U/L (15-37); BLOOD UREA NITROGEN 15 mg/dl (7-18); CARBON DIOXIDE 24 mmol/L (21-32); CHLORIDE 107 mmol/L (98-107); CREATININE 0.97 mg/dl (0.60-1.20); GLUCOSE 127 mg/dl (70-99); MAGNESIUM 1.8 mg/dl (1.8-2.4); POTASSIUM 4.3 mmol/L (3.5-5.1); SODIUM 140 mmol/L (136-145)
[2016-08-04] MEDS ORDERED: SODIUM CHLORIDE 0.9% 500ML 500 ML IV STA (03:54)
[2016-08-04 04:04] LABS: ALKALINE PHOSPHATASE 114 U/L (45-117)
[2016-08-04] MEDS ORDERED: OPTIRAY 320 IV PRN (04:15)
[2016-08-04] MEDS ORDERED: NITROGLYCERIN 0.4 MG SL PER TAB CHARGE SL STA (04:30)
[2016-08-04] MEDS ORDERED: NITROGLYCERIN 0.4 MG SL PER TAB CHARGE ONE (04:31)
[2016-08-04] MEDS ORDERED: ALUMINUM/MAGNESIUM SUSP 30 ML UDC ONE (04:44)
[2016-08-04] MEDS ORDERED: ALUMINUM/MAGNESIUM SUSP 30 ML UDC PO STA (04:44)
[2016-08-04] MEDS ORDERED: LIDOCAINE HCL 2% VISC SOLN 20 ML UDC PO STA (04:44)
[2016-08-04] MEDS ORDERED: LIDOCAINE HCL 2% VISC SOLN 20 ML UDC ONE (04:44)
--- NOTE | 2016-08-04 05:14 | EMERGENCY ROOM VISIT NOTE ---
History First contact with patient: 03:11 Chief Complaint: TACHYCARDIA Stated Complaint: TACHYCARDIA--PSVT Nursing Triage Summary: Patient has been having tachy episodes since earlier this morning, took extra dose of metoprolol at 0150. Notes SOB. History of Present Illness The patient is a 60 year old female who presents to the Emergency Room with complaints of chest pain, dyspnea and tachycardia for the past 2 hours. Patient has a history of tachycardia. She follows with Dr. Kaiser. She is due for an ablation. She has not had one in the past. She describes the pain as pressure, ranging in severity 3 out of 10 throughout the chest. Nothing makes it better or worse. She has a history of breast cancer in the past and is currently cancer free. No recent travel. She has had DVTs in the past. Patient denies fever, chills, cough, congestion, leg pain or swelling. She does not smoke. No history of PE. Patient called her family doctor and is advised take an extra metoprolol. She did this. No recent stress test. Echo a few months ago. Review of Systems See HPI for pertinent positives & negatives. A total of 10 systems reviewed and were otherwise negative. Past Medical/Surgical History Medical Problems: (1) Asthma (2) Breast cancer (3) Degeneration of cervical intervertebral disc (4) Depressive disorder (5) Diabetes mellitus, type II (6) DVT (deep venous thrombosis) (7) Fibromyalgia (8) Gastroesophageal reflux disease (9) History of breast cancer (10) History of DVT (deep vein thrombosis) (11) Hypertension (12) Lymphedema (13) Migraine headache (14) Obstructive sleep apnea syndrome (15) Restless legs syndrome (16) Right ureteral calculus (17) Ureteral calculus of right kidney transplant Surgical Problems: (1) Status post cholecystectomy (2) Status post partial mastectomy Family History FHx: cancer FHx: diabetes FHx: heart disease FHx: hypertension Social History Smoking Status: Former Smoker Alcohol Use: none Drug Use: none Marital Status: Housing Status: lives with significant other Occupation Status: retired Current/Historical Medications Scheduled Atorvastatin (Lipitor), 20 MG PO HS Duloxetine HCl (Cymbalta), 60 MG PO QAM Duloxetine Hcl (Cymbalta), 30 MG PO HS Fluticasone Prop/Salmeterol (Advair Diskus 250/50 60 Dose), 1 PUFF INH BID Glimepiride (Glimepiride), 4 MG PO QAM L-Methylfolate W/ Vitamin B6-V (Foltanx), 1 TAB PO BID Loperamide Hcl (Imodium), 4 MG PO PRN Magnesium Chloride (Slow-Mag Tab), 3 TAB PO QAM Magnesium Chloride (Slow-Mag Tab), 2 TABS PO QPM Metformin Hcl (Glucophage), 1,000 MG PO BID Metoprolol Succ (Toprol Xl) (Toprol-Xl), 75 MG PO QPM Metoprolol Succinate (Toprol Xl), 50 MG PO QAM Montelukast Sodium (Singulair), 10 MG PO DAILY Multiple Vitamin (Multi-Vitamin Daily), 1 TAB PO QPM Potassium Ext Rel (Klor-Con), 20 MEQ PO BID Ranitidine (Zantac), 1 TAB PO BID Tiotropium [place] (Spiriva [place]), 1 CAP INH QAM Triamcinolone Acetonide (Nasal (Nasacort Allergy 24Hr Chi), 1 SPRAY MISHEL HS Warfarin Sodium (Coumadin), 1 MG PO QAM Scheduled PRN Acetaminophen (Tylenol Arthitis Ext Rel), 1,300 MG PO QPM PRN for Headache or Pain Bisacodyl (Dulcolax), 1 TAB PO UD PRN for PRN Levalbuterol Hcl (Levalbuterol), 1.25 MG INH Q4 PRN for Wheezing Levalbuterol Tartrate (Levalbuterol Tartrate Hfa), 2 PUFFS INH Q4 PRN for SOB/ Wheezing Oxycodone Ir (Roxicodone Ir), 5 MG PO Q4H PRN for Pain Ropinirole (Requip), 0.5 MG PO HS PRN for restless legs Allergies Coded Allergies: Codeine (Verified Allergy, Intermediate, ITCHY AND RASH, 08/04/16) Erythromycin (Verified Allergy, Intermediate, [employer] STOMACH CRAMPS, ) Gabapentin (Verified Allergy, Intermediate, swelling, 08/04/16) Potassium Chloride (Verified Allergy, Intermediate, ITCHY AND RASH, ) SPOKE W PATIENT - ALLERGIC TO *BRAND* KL[facility]-CON ONLY. TAKES GENERIC OUTPATIENT. CALLED OUTPATIENT PHARMACY - CONFIRMED NDC OF POTASSIUM CHLORIDE 10 [place] [id number] Amitriptyline (Verified Allergy, Mild, SWELLING, 08/04/16) Sitagliptin (Verified Allergy, Mild, Swelling , 08/04/16) Doxepin (Verified Allergy, Unknown, SWELLING, 08/04/16) Hyoscyamine (Verified Allergy, Unknown, SWELLING, 08/04/16) Adhesives (Verified Adverse Reaction, Intermediate, Tape - rash/itching, ) Uncoded Allergies: TRICYCLICS (Allergy, Intermediate, SWELLING ARM AND LEGS, 02/03/12) vagisil (Allergy, Mild, reddness, 05/15/13) Physical Exam Vital Signs Date Time Temp Pulse Resp B/P Pulse Ox O2 Delivery O2 Flow Rate FiO2 08/04/16 04:54 123/91 08/04/16 04:37 119 18 94 08/04/16 04:32 179/88 08/04/16 04:29 171/99 08/04/16 04:08 116 16 94 08/04/16 04:01 146/103 08/04/16 03:51 117 08/04/16 03:47 150/81 08/04/16 03:43 126 131/72 08/04/16 03:37 97 Room Air 08/04/16 03:37 97 Room Air 08/04/16 03:13 36.7 126 20 131/72 99 Room Air Physical Exam VITALS: Vitals are noted on the nurse's note and reviewed by myself. Vital signs tachycardic GENERAL: Pleasant female, in no acute distress, nondiaphoretic, well-developed well-nourished. SKIN: The skin was without rashes, erythema, edema, or bruising. There is no tenting of the skin. Capillary reflex less than 2 seconds. HEAD: Normocephalic atraumatic. EARS: External auditory canals clear, tympanic membranes pearly holguin without erythema or effusion bilaterally. EYES: Pupils equal round and reactive to light and accommodation. Conjunctivae without injection, sclerae without icterus. Extraocular movements intact. NOSE: Patent, turbinates without inflammation or discharge. MOUTH: Mucous membranes moist. Pharynx without erythema or exudate. Uvula midline. Airway patent. Tongue does not deviate. NECK: Supple without nuchal rigidity. No lymphadenopathy. No thyromegaly. Cervical spine is nontender. No JVD. HEART: Regular rate and rhythm, tachycardic. LUNGS: Clear to auscultation bilaterally without wheezes, rales or rhonchi. No dullness to percussion. No retractions or accessory muscle use. ABDOMEN: Positive bowel sounds x 4. Normal tympanic percussion. Soft, nontender, without masses or organomegaly. Rubio sign negative. No guarding or rebound tenderness. MUSCULOSKELETAL: No muscle atrophy, erythema, noted. + 1 Pitting edema up to the mid tib-fib bilaterally NEURO: Patient was alert and oriented to person place and time. Normal sensation to light and sharp touch. No focal neurological deficits. Medical Decision & Procedures Laboratory Results 08/04/16 03:23 Red Blood Count 4.19, Mean Corpuscular Volume 92.4, Mean Corpuscular Hemoglobin 29.4, Mean Corpuscular Hemoglobin Concent 31.8, Mean Platelet Volume 9.6, Neutrophils (%) (Auto) 62.6, Lymphocytes (%) (Auto) 25.0, Monocytes (%) (Auto) 9.0, Eosinophils (%) (Auto) 1.6, Basophils (%) (Auto) 0.3, Neutrophils # (Auto) 6.54, Lymphocytes # (Auto) 2.61, Monocytes # (Auto) 0.94, Eosinophils # (Auto) 0.17, Basophils # (Auto) 0.03 08/04/16 03:23 Test 08/04/16 03:23 08/04/16 03:35 White Blood Count 10.45 K/uL (4.8-10.8) Red Blood Count 4.19 M/uL (4.2-5.4) Hemoglobin 12.3 g/dL (12.0-16.0) Hematocrit 38.7 % (37-47) Mean Corpuscular Volume 92.4 fL (80-100) Mean Corpuscular Hemoglobin 29.4 pg (25-34) Mean Corpuscular Hemoglobin Concent 31.8 g/dl (32-36) Platelet Count 299 K/uL (130-400) Mean Platelet Volume 9.6 fL (7.4-10.4) Neutrophils (%) (Auto) 62.6 % Lymphocytes (%) (Auto) 25.0 % Monocytes (%) (Auto) 9.0 % Eosinophils (%) (Auto) 1.6 % Basophils (%) (Auto) 0.3 % Neutrophils # (Auto) 6.54 K/uL (1.4-6.5) Lymphocytes # (Auto) 2.61 K/uL (1.2-3.4) Monocytes # (Auto) 0.94 K/uL (0.11-0.59) Eosinophils # (Auto) 0.17 K/uL (0-0.5) Basophils # (Auto) 0.03 K/uL (0-0.2) RDW Standard Deviation 52.4 fL (36.4-46.3) RDW Coefficient of Variation 15.6 % (11.5-14.5) Immature Granulocyte % (Auto) 1.5 % Immature Granulocyte # (Auto) 0.16 K/uL (0.00-0.02) Prothrombin Time 9.8 SECONDS (9.0-12.0) Prothromb Time International Ratio 0.9 (0.9-1.1) Activated Partial Thromboplast Time 25.0 SECONDS (21.0-31.0) Partial Thromboplastin Ratio 1.0 Anion Gap 9.0 mmol/L (3-11) Est Creatinine Clear Calc Drug Dose 84.2 ml/min Estimated GFR () 74.1 Estimated GFR (Non- 63.9 BUN/Creatinine Ratio 15.0 (10-20) Calcium Level 9.0 mg/dl (8.5-10.1) Magnesium Level 1.8 mg/dl (1.8-2.4) Total Bilirubin 0.4 mg/dl (0.2-1) Direct Bilirubin < 0.1 mg/dl (0-0.2) Aspartate Amino Transf (AST/SGOT) 19 U/L (15-37) Alanine Aminotransferase (ALT/SGPT) 30 U/L (12-78) Alkaline Phosphatase 114 U/L (45-117) Troponin I < 0.015 ng/ml (0-0.045) Total Protein 7.8 gm/dl (6.4-8.2) Albumin 3.8 gm/dl (3.4-5.0) Lipase 284 U/L (73-393) Thyroid Stimulating Hormone (TSH) 2.300 uIu/ml (0.300-4.500) Bedside D-Dimer > 450 ng/mlFEU (0-450) Bedside Troponin I 0.010 ng/ml (0-0.045) Medications Administered Medications (Trade) Dose Ordered Sig/Tiburcio Route Start Time Stop Time Status Last Admin Dose Admin Metoprolol Tartrate 5 mg 5 mg NOW STAT IV 08/04/16 03:28 08/04/16 03:29 DC 08/04/16 03:43 5 MG Sodium Chloride (Nss 500ml) 500 ml @ 999 mls/hr Q31M STAT IV 08/04/16 03:54 08/04/16 04:24 DC 08/04/16 03:54 999 MLS/HR Nitroglycerin (Nitrostat Tab) 0.4 mg NOW STAT SL 08/04/16 04:30 08/04/16 04:31 DC 08/04/16 04:30 0.4 MG Lidocaine HCl (Viscous Lidocaine 2% Soln) 10 ml NOW STAT PO 08/04/16 04:44 08/04/16 04:45 DC 08/04/16 04:56 10 ML Al Hydroxide/Mg Hydroxide (Maalox Susp) 30 ml NOW STAT PO 08/04/16 04:44 08/04/16 04:45 DC 08/04/16 04:56 30 ML ED Course Prior records/ancillary studies reviewed. Triage Nursing notes reviewed. Additional history obtained from family The patient's history was concerning for tachycardia, dyspnea chest pain. Differential diagnosis: Etiologies such as SVT, A. fib, cardiac ischemia, aortic dissection, pulmonary embolism, pneumonia, pneumothorax, musculoskeletal, infections, pericarditis, myocarditis, esophageal rupture, gastrointestinal, as well as others were entertained. Physical examination: As above. ER treatment provided: Metoprolol, IV fluids On reassessment the patient felt better. Diagnostic interpretation by me: The electrocardiogram was normal sinus, normal intervals, no acute ST-T wave changes, rate of 128. Impression sinus tachycardia interpreted by myself. The labs revealed d-dimer. Negative troponin Imaging studies: Chest x-ray with no acute consolidation, pneumothorax fear per my interpretation CTA CHEST: Calcified thrombus in the right middle lobe and lower lobe pulmonary arteries and linear filling defect in left lower lobe segmental and subsegmental pulmonary arteries (4/176). Findings likely represent chronic pulmonary embolus. No evidence of acute PE. No consolidation. No pleural effusion or pneumothorax. Heart size is normal. No pericardial effusion. Hepatic steatosis. Radiologist: Perdo Albright MD Consultation: A consultation was placed with the hospitalist Dr. Chao. The case was discussed and diagnostics were reviewed. The patient was evaluated in the ER for further treatment. Exam and history seem consistent with chest pain with dyspnea and tachycardia. Patient has a chronic PE. This is deferred to the hospitalist for treatment. Patient is unaware of Prior blood clots In the lung. No recent stress test. She will be evaluated by medicine for possible admission. First troponin is negative. Sinus tachycardia on EKG.By the evaluation outlined above emergent etiologies such as aortic dissection, pulmonary embolism, pneumonia, pneumothorax, infections, pericarditis, myocarditis, gastrointestinal, as well as others were deemed relatively unlikely. The pt informed about the findings as listed above. All questions were answered and pleased with the treatment. Case reviewed with my attending Medical Decision As above Impression Primary Impression: Tachycardia Additional Impressions: Precordial chest pain Chronic pulmonary embolism Departure Information Dispostion Being Evaluated By Hospitalist Condition FAIR Referrals Hortensia Crane M.D. (PCP) Patient Instructions My [facility] Problem Qualifiers
[2016-08-04] MEDS ORDERED: MAGNESIUM SULFATE 1GM / D5W 1 GM in PREMIXED IN D5W 100 ML IV STA (05:18)
[2016-08-04] MEDS ORDERED: MAGNESIUM SULFATE 1GM / D5W 1 GM BAG ONE (05:25)
[2016-08-04] MEDS ORDERED: IV FLUIDS COMPLETED PRN (06:45)
[2016-08-04] MEDS ORDERED: ASPIRIN 325 MG ECTAB PO STA (06:49)
[2016-08-04] MEDS ORDERED: METOPROLOL SUCC 50MG EXT REL TAB PO STA (06:49)
[2016-08-04] MEDS ORDERED: MoRPHine SULFATE 4 MG/ML 1 ML CARP\\VIAL IV PRN (07:00)
[2016-08-04] MEDS ORDERED: LORAZEPAM 2 MG/ML 1 ML VIAL IV PRN (07:00)
[2016-08-04] MEDS ORDERED: GLUCOSE 10 TABS/TUBE PO PRN (07:00)
[2016-08-04] MEDS ORDERED: NITROGLYCERIN 0.4 MG SL PER TAB CHARGE SL PRN (07:00)
[2016-08-04] MEDS ORDERED: DEXTROSE 50% 50 ML SYR IV PRN (07:00)
[2016-08-04] MEDS ORDERED: GLUCOSE 40% GEL 15 GM TUBE PO PRN (07:00)
[2016-08-04] MEDS: INSULIN ASPART 100 UNITS/ML 3 ML PEN SC SCH ×4 (07:00→20:18)
[2016-08-04] MEDS ORDERED: ROPINIROLE HCL 1 MG TAB PO PRN (07:00)
[2016-08-04] MEDS ORDERED: GLUCAGON FOR INJ 1 MG VIAL SQ PRN (07:00)
[2016-08-04] MEDS ORDERED: LEVALBUTEROL/IPRATROPIUM NEB INH PRN (07:15)
[2016-08-04] MEDS ORDERED: LEVALBUTEROL 1.25MG/0.5ML NEB INH PRN (07:30)
[2016-08-04] MEDS ORDERED: IPRATROPIUM BROMIDE NEB SOLN 0.02% 2.5 ML VIAL INH PRN (07:30)
[2016-08-04] MEDS ORDERED: SODIUM CHLORIDE 0.9% 1000ML 1,000 ML IV SCH (07:40)
--- NOTE | 2016-08-04 07:40 | DIAGNOSTIC IMAGING REPORT ---
CHEST CTA for PULMONARY ARTERIES CT DOSE: 692.40 mGy.cm HISTORY: Atypical chest pain. Short of breath. TECHNIQUE: Multiaxial CT images of the chest were performed following the intravenous administration of contrast to evaluate the pulmonary arteries. Maximal intensity projection images were also obtained. COMPARISON STUDY: Chest 08/04/2016. FINDINGS: No evidence for an aortic dissection. The heart is normal in size. No pleural effusions. A few subcentimeter thyroid nodules. The largest measures 5 mm. Calcified linear filling defects seen within the right middle and right lower lobar pulmonary arteries. A few additional small linear filling defects seen within the left lower lobe pulmonary arteries. These are consistent with chronic embolus. No evidence for acute pulmonary embolus. Hepatic steatosis. The spleen is unremarkable. No mediastinal or hilar lymphadenopathy. Postoperative changes seen within the chest. No pneumothorax. The central airways are patent. No focal lung consolidations to suggest pneumonia. Subpleural reticulation within the right middle lobe favors scarring. IMPRESSION: 1. Small bilateral chronic pulmonary emboli as described above. No acute pulmonary emboli identified. 2. No focal lung consolidations. 3. Hepatic steatosis. Electronically signed by: Yeison Aguiar M.D. 08/04/2016 7:39 AM Dictated Date/Time: 08/04/2016 7:34 AM
[2016-08-04 07:42] VITALS: BP 123/83; PULSE 116; TEMP 37; O2SAT 96; Ht 165.1 cm; Wt 130.2 kg
--- NOTE | 2016-08-04 08:10 | DIAGNOSTIC IMAGING REPORT ---
CHEST ONE VIEW PORTABLE HISTORY: Short of breath. Atypical CHEST PAIN COMPARISON: Chest 05/05/2016. FINDINGS: The lungs are clear. Cardiac silhouette is top normal in size. No pleural effusions. No pneumothorax. Right Port-A-Cath terminates in the SVC. IMPRESSION: No acute process. Electronically signed by: Yeison Aguiar M.D. 08/04/2016 8:09 AM Dictated Date/Time: 08/04/2016 8:08 AM
--- NOTE | 2016-08-04 08:24 | HISTORY & PHYSICAL EXAMINATION ---
DATE OF ADMISSION: 08/04/2016 PRIMARY CARE PHYSICIAN: Dr. Crane. CHIEF COMPLAINT: Chest pain. HISTORY OF PRESENT ILLNESS: History obtained from patient and records. Medical history significant for breast cancer L status post surgery/ chemoradiation, hx BRCA, history of DVT sp anticoag, hypertension, DM2 on oral meds, fibromyalgia as per records, PSVT as per records, mood dso, urolithiasis, asthma, past tobacco abuse Recent confinement last May 2016 for flank pain, nausea 2 to renal calculus. Ptient underwent an outpatient urologic procedure. Patient was also seen by cardiology for PSVT. Lopressor dose was increased. Patient discharged on 100 mg b.i.d. subsequently brought down because of fatigue. Px seen by PCP last month for grief, anxiety, and depression. px denies suicidality. Possible outpatient psych at [facility]. Patient admits to more stress the last week, overwhelmed at home, also recovering from viral bronchitis infection. A few hours ago the patient had band like chest discomfort with some palpitations, some relief with nitroglycerin, nonradiating. Patient does not check his blood pressure at home. Patient is compliant with home meds. Px denies inhaler/nebulizer overuse. MEDICAL HISTORY: As above. She has had 2D-echo from April 2016 showed EF 60-65%, sinus tachycardia, mild MR. Last seen by [facility] cardiology June 2016. Plan for ablation for PSVT in the near future as per records. OPERATIONS: hernia repair, gallbladder surgery, carpal tunnel, dental surgery, breast procedures, mastectomy, vascular procedures, oophorectomy, hysterectomy, breast reconstruction. HOME MEDICATIONS: Include bisacodyl, levalbuterol, loperamide, magnesium chloride, metformin, metoprolol, potassium, warfarin 1 mg daily for [place], acetaminophen, glimepiride, atorvastatin, duloxetine, montelukast, multivitamins, oxycodone, ranitidine, Spiriva. ALLERGIES: TO ADHESIVES, AMITRIPTYLINE, CODEINE, DOXEPIN, ERYTHROMYCIN, GABAPENTIN, TRICYCLIC. FAMILY HISTORY: Heart disease, breast cancer, ovarian cancer. PERSONAL AND SOCIAL HISTORY: Past tobacco abuse. No chronic intake of alcohol. work at [employer]. REVIEW OF SYSTEMS: As per HPI. All other ROS negative. PHYSICAL EXAMINATION: VITAL SIGNS: Blood pressure was noted to be 179/88 CT 115, RR 19, temperature 36.6, sats 99 on room air. GENERAL: Noted to be obese, anxious, no respiratory distress. SKIN: Normal color. HEENT: [place] palpebral conjunctivae. Dry mucosa. NECK: Short neck. LUNGS: Decreased breath sounds. HEART: Tachycardic. ABDOMEN: Soft. EXTREMITIES: Minimal LE edema. no tenderness NEUROLOGIC: No gross focality. LABS: Hemoglobin was noted to be 12, hematocrit 38, white cells 10.4, platelets 299. Sodium 140, potassium 4.3, chloride 107, CO2 24, BUN 50, creatinine 0.9, glucose of 127. Troponin was 0.01. IMAGING DATA: EKG as per my interpretation : sinus tachycardia. LAD, LAFB, PRWP, no ischemia Chest x-ray as per my interpretation : atelectasis. CT chest initial read : right middle lobe chronic pulmonary embolus, no consolidation. Heart size is normal. ASSESSMENT: 1. Chest pain possibly from HTN urgency, personal stress rule out acute coronary syndrome. 2. History of lower extremity deep venous thrombosis sp anticoag. History of chronic pulmonary emboli on initial CT read. 3. hx PSVT sinus tachycardia in the ER future ablation contemplated as per records 4. breast cancer status post surgery, radiation and chemotherapy, in remission 5. hx BRCA 6. DM2, on oral meds, well controlled as of recent HgA1C (6. 8 as of May 2016) 7. asthma, stable/recent viral bronchitis 8. past tobacco abuse PLAN: Observation PCU. analgesia, anxiolytic prn Increase Lopressor dose to 75 b.i.d. for now. (cautious increase given fatigue sx attributed to higher doses in the past) Follow troponin. Aspirin for CAD prevention until ACS ruled out. Cardio consult. RE cp (px known to Dr. Hogan) Psych consult RE anxiety and depression. ISS BG goal 140-180. DVT prophylaxis, Lovenox subQ. Full code. MTDD
[2016-08-04] MEDS: TIOTROPIUM BROMIDE 5 PUFF/90 MCG INH INH SCH (08:42)
[2016-08-04] MEDS: RANITIDINE HCL 150 MG TAB PO SCH ×2 (08:42→20:17)
[2016-08-04] MEDS: FLUTICASONE/SALMETEROL 250/50 (ADVAIR) 14 PUFF/1 INHALER INH SCH ×2 (08:43→20:16)
[2016-08-04 08:50] VITALS: PULSE 116
[2016-08-04] MEDS ORDERED: DULOXETINE HCL 60 MG CAP PO SCH (09:00)
[2016-08-04] MEDS ORDERED: MONTELUKAST SOD 10 MG TAB PO SCH (09:00)
[2016-08-04] MEDS ORDERED: NURSING VERBAL MED ORDER ONE ×2 (10:00→14:45)
[2016-08-04] MEDS ORDERED: SOTALOL HCL 80 MG TAB PO ONE (10:47)
--- NOTE | 2016-08-04 11:14 | Cardiology Consultation ---
Cardiology Consultation Date of Consultation: August 04, 2016 History of Present Illness Barbie Davidson is a 60-year-old female seen in cardiology consultation per the request of Dr. Martin for the evaluation of chest discomfort and tachycardia. The patient's primary preventive maintenance coordinator Dr. Hogan of our practice, and she also follows with Dr. Shaw from and electrophysiology perspective for her history of paroxysmal atrial tachycardia. The patient has a complex past history including breast carcinoma BRCA1 positive admitted and undergone previous bilateral mastectomy in 2010 and had chemotherapy including Adriamycin. She has a chronic a port. Takes Coumadin 1 mg by mouth daily for port prophylaxis and also has reported flushed on a routine basis. She recently been hospitalized in April-May 2016 having presented with right flank pain was found to have a renal calculus and required cystoscopy ureter stent placement. She had since had the stent exchanged she had been doing well from this perspective. During her flank pain admission she was noted to have a recurrence of her atrial tachycardia as Given EKG dated 05/05/16 at 1732 hrs. at which time a narrow complex tachycardia 145 bpm was noted. She had been followed by Dr. Denny during that admission and her Toprol succinate dose was increased from a baseline of 50 mg twice a day to 100 mg twice a day. Should subsequently been seen in outpatient follow-up due to complaints of fatigue her dose was reduced and most recently she has been taking metoprolol succinate 50 mg a.m. and 75 mg every afternoon. The plan had been for her to undergo future electrophysiology study and ablation (been on hold due to her recent urology issues. Last evening the patient was getting ready for bed 1 AM and noted a recurrence of her subjective palpitation episodes she felt that her heart was pounding. She took her heart rate with her home pulse oximeter and noted a heart rate at just around 130 bpm. She took an extra 25 mg of metoprolol and rested and this did not help. She subsequently rested and noted a bandlike chest discomfort that was worse when she took a deep breath it was associated with her symptoms sensation of a fast heart rate. EKG and telemetry thus far since her presentation early this morning reveals tachycardia at 110-115 bpm. The appearance looks more like her previous sinus tachycardia although looking at the EKG dated 05/05/16 she does have a history of the atrial tachycardia having been a long RP interval tachycardia , perhaps her current rhythm is recurrence of the atrial tachycardia, just slower due to her high dose maintenance metoprolol succinate that she has been on. History PAST MEDICAL HISTORY: 1. Type 2 diabetes mellitus 2. Fibromyalgia 3. Depression 4. Paroxysmal supraventricular tachycardia, likely atrial tachycardia 5. Breast carcinoma, BRCA positive 6. Reactive airway disease 7. Dyslipidemia 8. Raynaud's phenomenon 9. Lymphedema 10. Migraine headache syndrome 11. Obstructive sleep apnea PAST SURGICAL HISTORY: 1. Ureter stent placements 2. Cholecystectomy 3. Mastectomy 4. A-port placement FAMILY HISTORY: Negative for premature CAD or sudden cardiac SOCIAL HISTORY: Former tobacco use. She is and lives with her family Review Of Systems See above for pertinent positives & negatives. A total of 10 systems reviewed and were otherwise negative. Allergies Coded Allergies: Codeine (Verified Allergy, Intermediate, ITCHY AND RASH, 08/04/16) Erythromycin (Verified Allergy, Intermediate, SPEECH COACH STOMACH CRAMPS, ) Gabapentin (Verified Allergy, Intermediate, swelling, 08/04/16) Potassium Chloride (Verified Allergy, Intermediate, ITCHY AND RASH, ) SPOKE W PATIENT - ALLERGIC TO *BRAND* [facility] ONLY. TAKES GENERIC OUTPATIENT. CALLED OUTPATIENT PHARMACY - CONFIRMED [facility] OF POTASSIUM CHLORIDE 10 [place] [address]89 Amitriptyline (Verified Allergy, Mild, SWELLING, 08/04/16) Sitagliptin (Verified Allergy, Mild, Swelling , 08/04/16) Doxepin (Verified Allergy, Unknown, SWELLING, 08/04/16) Hyoscyamine (Verified Allergy, Unknown, SWELLING, 08/04/16) Adhesives (Verified Adverse Reaction, Intermediate, Tape - rash/itching, ) Medications Reported Home Medications Medications Dose Route/Sig Max Daily Dose Days Date Category Singulair (Montelukast Sodium) 10 Mg Tab 10 Mg PO DAILY 08/04/16 Reported Roxicodone Ir (Oxycodone HCl) 5 Mg Tab 5 Mg PO Q4H PRN 06/02/16 Rx Dulcolax (Bisacodyl) 5 Mg Tab 1 Tab PO UD PRN 1 05/21/16 Reported Nasacort Allergy 24Hr Chi (Triamcinolone Acetonide (Nasal) 55 Mcg/Act Spr 1 [place] MISHEL HS 05/21/16 Reported Foltanx (L-Methylfolate W/ Vitamin B6-V) 1 Tab Tab 1 Tab PO BID 05/21/16 Reported Toprol-Xl (Metoprolol Succinate) 50 Mg Tabcr 75 Mg PO QPM 05/21/16 Reported Toprol Xl (Metoprolol Succinate) 50 Mg Tabcr 50 Mg PO QAM 05/21/16 Reported Spiriva Handihaler (Tiotropium [place]) 30 Puff/540 Mcg Aerp 1 Cap INH QAM 05/04/16 Reported Klor-Con (Potassium Chloride) 20 Meq Tabcr 20 Meq PO BID 05/04/16 Reported Levalbuterol Tartrate Hfa (Levalbuterol Tartrate) 45 Mcg/Act Aer 2 Puffs INH Q4 PRN 05/04/16 Reported Slow-Mag Tab (Magnesium Chloride) 64 Mg Tabcr 2 Tabs PO QPM 05/04/16 Reported Zantac (Ranitidine HCl) 150 Mg Tab 1 Tab PO BID 30 05/20/15 Reported Slow-Mag Tab (Magnesium Chloride) 64 Mg Tabcr 3 Tab PO QAM 05/20/15 Reported Requip (Ropinirole HCl) 0.5 Mg Tab 0.5 Mg PO HS PRN 05/20/15 Reported Cymbalta (Duloxetine HCl) 30 Mg Cap 60 Mg PO QAM 30 10/02/14 Reported Glucophage (Metformin Hcl) 1,000 Mg Tab 1,000 Mg PO BID 10/02/14 Reported Multi-Vitamin Daily (Multiple Vitamin) 1 Tab Tab 1 Tab PO QPM 05/15/14 Reported Levalbuterol (Levalbuterol Hcl) 1.25 Mg/0.5 Ml Neb 1.25 Mg INH Q4 PRN 05/15/14 Reported Cymbalta (Duloxetine Hcl) 30 Mg Cap 30 Mg PO HS 05/15/14 Reported Lipitor (Atorvastatin) 20 Mg Tab 20 Mg PO HS 05/15/14 Reported Tylenol Arthitis Ext Rel (Acetaminophen) 650 Mg Ertab 1,300 Mg PO QPM PRN 11/26/13 Reported Glimepiride 4 Mg Tab 4 Mg PO QAM 11/26/13 Reported Imodium (Loperamide HCl) 2 Mg Cap 4 Mg PO PRN 03/15/12 Reported Advair Diskus 250/50 60 Dose (Fluticasone Prop/Salmeterol) 1 Ea Aerp 1 Puff INH BID 03/15/12 Reported Coumadin (Warfarin Sodium) 1 Mg Tab 1 Mg PO QAM 03/15/12 Reported Physical Exam Vital Signs (Last 8hrs): Last 8 Hrs Date Time Temp Pulse Resp B/P Pulse Ox O2 Delivery O2 Flow Rate FiO2 08/04/16 08:50 116 08/04/16 07:42 37.0 116 18 123/83 96 Room Air 08/04/16 06:46 116 08/04/16 06:39 113 19 159/91 97 Room Air 08/04/16 06:01 163/108 08/04/16 05:59 118 17 98 08/04/16 05:31 153/84 08/04/16 05:29 115 16 97 08/04/16 05:01 145/90 08/04/16 04:59 115 19 95 08/04/16 04:54 123/91 08/04/16 04:37 119 18 94 08/04/16 04:32 179/88 08/04/16 04:29 171/99 08/04/16 04:08 116 16 94 08/04/16 04:01 146/103 08/04/16 03:51 117 08/04/16 03:47 150/81 08/04/16 03:43 126 131/72 08/04/16 03:37 97 Room Air 08/04/16 03:37 97 Room Air 08/04/16 03:13 36.7 126 20 131/72 99 Room Air General Appearance: Alert and Oriented x3. NAD. Head: Normocephalic Atraumatic. Eyes: PERRLA, EOMI, conjunctiva and sclera clear Neck: Supple. No carotid bruits noted. No JVD. No HJD. Respiratory: Breath sounds clear to auscultation bilaterally. No w/r/r. Cardiovascular: Reg rate and rhythm. S1 and S2 noted. No murmurs, rubs, gallops. PMI non displace. Abdomen: Normal bowel sounds, soft nontender. no abdominal bruits. Extremities: No edema, no clubbing or cyanosis. distal pulses 2/4 bilaterally. Neuro: No focal deficits. Psychiatric: Normal affect. Data Last Resulted 08/04/16 03:23 Red Blood Count 4.19, Mean Corpuscular Volume 92.4, Mean Corpuscular Hemoglobin 29.4, Mean Corpuscular Hemoglobin Concent 31.8, Mean Platelet Volume 9.6, Neutrophils (%) (Auto) 62.6, Lymphocytes (%) (Auto) 25.0, Monocytes (%) (Auto) 9.0, Eosinophils (%) (Auto) 1.6, Basophils (%) (Auto) 0.3, Neutrophils # (Auto) 6.54, Lymphocytes # (Auto) 2.61, Monocytes # (Auto) 0.94, Eosinophils # (Auto) 0.17, Basophils # (Auto) 0.03 Last Resulted 08/04/16 03:23 Past 24 Hours Test 08/04/16 03:23 08/04/16 10:15 Range/Units Prothromb Time International Ratio 0.9 0.9-1.1 Prothrombin Time 9.8 9.0-12.0 SECONDS Troponin I < 0.015 0-0.045 ng/ml A CT of the chest performed this a.m. 08/04/16 revealed findings of small bilateral chronic pulmonary emboli the largest measuring 5 mm. Calcified near filling defects are seen within the right middle and right lower lobar pulmonary arteries. A few additional small linear filling defects are seen within the left lower lobe pulmonary arteries and are consistent with chronic poor embolism per the radiology report. The CT also revealed hepatic steatosis. No pericardial effusion was noted. Transthoracic echocardiogram performed 05/06/2016: Left ventricular wall motion was normal with LVEF of 60-65. Mild mitral regurgitation was noted. Assessment & Plan Impression: 60-year-old female 1. Recurrence of subjective palpitations, history suggestive of recurrence of her atrial tachycardia, perhaps the rate is much lower due to her high dose maintenance metoprolol succinate 2. Bandlike pleuritic chest discomfort 3. CT findings of chronic pulmonary embolism 4. History of breast carcinoma with previous cystectomy, chemotherapy including Adriamycin Plan: The case was discussed with Dr Shaw of EP. Based on findings we'll discontinue metoprolol succinate transition her over to sotalol 80 mg twice a day. Patient will need to remain on telemetry for the first 6 doses. Daily EKG has been ordered. Will plan to up titrate to a dose of 120 twice a day as tolerated if she does well with the 80 mg dose. Regarding the chest discomfort, I think we need to first addressed her tachycardia. Presentation is not suggestive of acute coronary syndrome at present therefore cardiac enzymes will be interpreted. She had an echocardiogram done in May 23 think a repeat study is necessary at the present time. Given her risk factors for venous thromboembolic disease with findings of chronic pulmonary emboli on CT, I would be inclined to start her on full dose anticoagulation. She typically takes Coumadin 1 mg by mouth daily for a port thrombosis prophylaxis. I plan to discuss this with the hospitalist on her case and we will determine next best course of treatment. This is a new diagnosis for the patient she had not previously been on full dose anticoagulation. She seems stable from a urology standpoint with no dysuria and no flank pain. Hui Sanchez, DO
[2016-08-04 11:43] VITALS: BP 138/80; PULSE 114; TEMP 36.5; O2SAT 97
--- NOTE | 2016-08-04 11:54 | Progress Note ---
Internal Med Progress Note Date of Service: August 04, 2016. Provider Documentation: SUBJECTIVE: Patient is doing better. On and off pleuritic band like chest pain, palpitations No SOB, cough, fever, chills, abdominal pain. OBJECTIVE: Vital Signs-as noted below Exam: General-AAOX3, no distress, morbidly obese + Neck-Supple, NO JVD Lungs-AEBE decreased, no wheezing, crackles Heart-S1, S2 normal, tachycardia + Abdomen-Soft, non tender, non distended, BS present Extremities-Right > left leg edema (chronic) Neuro-Grossly no focal deficits Lab data as noted below. ASSESSMENT & PLAN: ASSESSMENT AND PLAN : RECURRENT PALPITATIONS Has been following up with Dr Shaw outpatient for this- PSVT and plan was for ablation but because of recent urological procedures - it was post poned. This admission she is in sinus tachycardia with HR in 110s. -Per cardiology, plan is to transition from metoprolol succinate to Sotalol 80 mg PO BID and titrate it to 120 mg PO BID if tolerates -Will monitor her x 72 hours while starting her on sotalol -Echo ordered per cardiology -Discussed with Dr Sanchez. Appreciate inputs CHEST PAIN, PLEURITIC -Atypical for cardiac. Does have chronic small B/L PE on CT scan. -EKG- no sig changes, Trop x 1- neg, Echo ordered -Monitor on telemetry CHRONIC SMALL B/L PE Per CT scan and had similar results on prior CT scan as well -Prior hx of DVT (treated x 6 months some 10 years ago) , Hx of breast carcinoma , already on coumadin 1 mg for port prophylaxis, discussed with cardiology- finally decided to treat her given her risk of thromboembolic disease. -Will do venous duplex- RLL to rule out DVT as right > left edema -Start her on coumadin with goal INR 2-3 ANXIETY/DEPRESSION No suicidal ideations -Psych consulted per admitting team HX OF BREAST CARCINOMA S/P SURGERY/RADIATION/CHEMOTHERAPY -In remission DM-2 -On oral medications, well controlled as of recent HgA1C (6. 8 as of May 2016 ) DVT PROPHYLAXIS Coumadin FULL CODE DISPOSITION Continue with tele monitoring Vital Signs: Date Time Temp Pulse Resp B/P Pulse Ox O2 Delivery O2 Flow Rate FiO2 08/04/16 08:50 116 08/04/16 07:42 37.0 116 18 123/83 96 Room Air 08/04/16 06:46 116 08/04/16 06:39 113 19 159/91 97 Room Air 08/04/16 06:01 163/108 08/04/16 05:59 118 17 98 08/04/16 05:31 153/84 08/04/16 05:29 115 16 97 08/04/16 05:01 145/90 08/04/16 04:59 115 19 95 08/04/16 04:54 123/91 08/04/16 04:37 119 18 94 08/04/16 04:32 179/88 08/04/16 04:29 171/99 08/04/16 04:08 116 16 94 08/04/16 04:01 146/103 08/04/16 03:51 117 08/04/16 03:47 150/81 08/04/16 03:43 126 131/72 08/04/16 03:37 97 Room Air 08/04/16 03:37 97 Room Air 08/04/16 03:13 36.7 126 20 131/72 99 Room Air Lab Results: Results Past 24 Hours Test 08/04/16 03:23 08/04/16 03:35 08/04/16 10:15 Range/Units White Blood Count 10.45 4.8-10.8 K/uL Red Blood Count 4.19 4.2-5.4 M/uL Hemoglobin 12.3 12.0-16.0 g/dL Hematocrit 38.7 37-47 % Mean Corpuscular Volume 92.4 80-100 fL Mean Corpuscular Hemoglobin 29.4 25-34 pg Mean Corpuscular Hemoglobin Concent 31.8 32-36 g/dl Platelet Count 299 130-400 K/uL Mean Platelet Volume 9.6 7.4-10.4 fL Neutrophils (%) (Auto) 62.6 % Lymphocytes (%) (Auto) 25.0 % Monocytes (%) (Auto) 9.0 % Eosinophils (%) (Auto) 1.6 % Basophils (%) (Auto) 0.3 % Neutrophils # (Auto) 6.54 1.4-6.5 K/uL Lymphocytes # (Auto) 2.61 1.2-3.4 K/uL Monocytes # (Auto) 0.94 0.11-0.59 K/uL Eosinophils # (Auto) 0.17 0-0.5 K/uL Basophils # (Auto) 0.03 0-0.2 K/uL RDW Standard Deviation 52.4 36.4-46.3 fL RDW Coefficient of Variation 15.6 11.5-14.5 % Immature Granulocyte % (Auto) 1.5 % Immature Granulocyte # (Auto) 0.16 0.00-0.02 K/uL Prothrombin Time 9.8 9.0-12.0 SECONDS Prothromb Time International Ratio 0.9 0.9-1.1 Activated Partial Thromboplast Time 25.0 21.0-31.0 SECONDS Partial Thromboplastin Ratio 1.0 Sodium Level 140 136-145 mmol/L Potassium Level 4.3 3.5-5.1 mmol/L Chloride Level 107 98-107 mmol/L Carbon Dioxide Level 24 21-32 mmol/L Anion Gap 9.0 3-11 mmol/L Blood Urea Nitrogen 15 7-18 mg/dl Creatinine 0.97 0.60-1.20 mg/dl Est Creatinine Clear Calc Drug Dose 84.2 ml/min Estimated GFR () 74.1 Estimated GFR (Non- 63.9 BUN/Creatinine Ratio 15.0 10-20 Random Glucose 127 70-99 mg/dl Calcium Level 9.0 8.5-10.1 mg/dl Magnesium Level 1.8 1.8-2.4 mg/dl Total Bilirubin 0.4 0.2-1 mg/dl Direct Bilirubin < 0.1 0-0.2 mg/dl Aspartate Amino Transf (AST/SGOT) 19 15-37 U/L Alanine Aminotransferase (ALT/SGPT) 30 12-78 U/L Alkaline Phosphatase 114 45-117 U/L Troponin I < 0.015 < 0.015 0-0.045 ng/ml Total Protein 7.8 6.4-8.2 gm/dl Albumin 3.8 3.4-5.0 gm/dl Lipase 284 73-393 U/L Thyroid Stimulating Hormone (TSH) 2.300 0.300-4.500 uIu/ml Bedside D-Dimer > 450 0-450 ng/mlFEU Bedside Troponin I 0.010 0-0.045 ng/ml
[2016-08-04] MEDS: ENOXAPARIN 40 MG/0.4 ML SYR SC SCH (12:13)
--- NOTE | 2016-08-04 13:54 | DIAGNOSTIC IMAGING REPORT ---
RIGHT LOWER EXTREMITY VENOUS DOPPLER CLINICAL HISTORY: Rule out DVT Right COMPARISON STUDY: Bilateral lower extremity venous Doppler May 05, 2016. TECHNIQUE: Sonography of the deep venous system of the right lower extremity was performed. Compression and augmentation were evaluated. FINDINGS: The right common femoral, superficial femoral and popliteal veins were compressible. Augmentation was normal. Flow was shown within the deep calf vessels. IMPRESSION: No evidence of deep venous thrombus within the right lower extremity. Electronically signed by: Warren Gomez M.D. 08/04/2016 1:53 PM Dictated Date/Time: 08/04/2016 1:53 PM
[2016-08-04] MEDS: ACETAMINOPHEN 325 MG TAB PO PRN (14:15)
[2016-08-04 15:37] VITALS: BP 103/67; PULSE 87; TEMP 37; O2SAT 95
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
[2016-08-04] MEDS: WARFARIN SOD 5 MG TAB PO SCH (16:21)
[2016-08-04] MEDS: OXYCODONE HCL IR 5 MG TAB (IMMEDIATE RELEASE) PO PRN ×2 (16:36→23:02)
[2016-08-04 19:51] VITALS: BP 111/67; PULSE 85; TEMP 36.9; O2SAT 93
[2016-08-04] MEDS: DULOXETINE HCL 60 MG CAP PO SCH (20:16)
[2016-08-04] MEDS: SOTALOL HCL 80 MG TAB PO SCH (20:16)
[2016-08-04] MEDS: ATORVASTATIN 20 MG TAB PO SCH (20:16)
[2016-08-04] MEDS: MONTELUKAST SOD 10 MG TAB PO SCH (20:17)
[2016-08-04] MEDS: MULTIVITAMIN TAB PO SCH (20:17)
[2016-08-04] MEDS ORDERED: METOPROLOL SUCC 50MG EXT REL TAB PO SCH (21:00)
[2016-08-04] MEDS ORDERED: DULOXETINE (CYMBALTA) 30 MG CAP PO SCH (21:00)
[2016-08-04 23:52] VITALS: BP 109/71; PULSE 89; TEMP 37; O2SAT 95
[2016-08-05 04:00] VITALS: BP 113/72; PULSE 84; TEMP 36.7; O2SAT 95
[2016-08-05 06:03] LABS: BASO % 0.3 %; BASO ABS # 0.02 K/uL (0-0.2); COMPLETE YES; EOS % 1.7 %; IG% 1.6 %; LYMPH % 23.6 %; LYMPH ABS # 1.52 K/uL (1.2-3.4); MEAN CELL VOLUME 91.6 fL (80-100); MEAN CORPUSCULAR HEMOGLOBIN 29.6 pg (25-34); MEAN CORPUSCULAR HGB CONC 32.3 g/dl (32-36); MEAN PLATELET VOLUME 9.6 fL (7.4-10.4); MONO % 9.3 %; NEUT % 63.5 %; PLATELET COUNT 255 K/uL (130-400); RED BLOOD COUNT 3.82 M/uL (4.2-5.4); WHITE BLOOD COUNT 6.45 K/uL (4.8-10.8)
[2016-08-05 06:17] LABS: PROTHROMBIN TIME (PATIENT) 10.5 SECONDS (9.0-12.0)
[2016-08-05 06:43] LABS: BUN/CREATININE RATIO 16.3 (10-20); CALCIUM 8.8 mg/dl (8.5-10.1); CREATININE 0.91 mg/dl (0.60-1.20); POTASSIUM 4.2 mmol/L (3.5-5.1)
[2016-08-05] MEDS: INSULIN ASPART 100 UNITS/ML 3 ML PEN SC SCH ×4 (07:00→20:44)
[2016-08-05] MEDS: TIOTROPIUM BROMIDE 5 PUFF/90 MCG INH INH SCH (08:01)
[2016-08-05] MEDS: FLUTICASONE/SALMETEROL 250/50 (ADVAIR) 14 PUFF/1 INHALER INH SCH ×2 (08:01→20:44)
[2016-08-05] MEDS: DULOXETINE HCL 60 MG CAP PO SCH ×2 (08:02→20:45)
[2016-08-05] MEDS: SOTALOL HCL 80 MG TAB PO SCH ×2 (08:02→20:45)
[2016-08-05] MEDS: RANITIDINE HCL 150 MG TAB PO SCH ×2 (08:02→20:46)
[2016-08-05] MEDS: ENOXAPARIN 40 MG/0.4 ML SYR SC SCH (08:03)
[2016-08-05 08:04] VITALS: BP 113/73; PULSE 83; TEMP 37.2; O2SAT 94
[2016-08-05] MEDS ORDERED: ASPIRIN 325 MG ECTAB PO SCH (09:00)
[2016-08-05] MEDS ORDERED: ASPIRIN 81 MG ECTAB PO STA (10:30)
--- NOTE | 2016-08-05 10:48 | Cardiology Follow-Up ---
Subjective General Date of Service: Aug 05, 2016. Chief Complaint: follow up palpitations, chest pain Pt evaluation today including: conversation w/ patient, physical exam History of Present Illness The patient is a 60 year old female seen in follow up. Patient feeling better this am. CP and palpitations have both resolved. Review of telemetry reveals change in HR on 08/04/16 12:46-48 pm with change from 115-120 bpm to 86 bpm. She has remained in the 80 bpm since and perhaps this was a conversion from a slow atrial tachycardia (on high dose metoprolol) to SR. EKG this am 08/05/16 reveals SR at 81 bpm with new inferior Tw inversions, mildly prolonged QTc of 483 ms. Compared to prior tracing from 08/04 the rate had slowed by 42 bpm and the inferior T wave changes were new. Serial trop levels are negative. Allergies Coded Allergies: Codeine (Verified Allergy, Intermediate, ITCHY AND RASH, 08/04/16) Erythromycin (Verified Allergy, Intermediate, FWS FACULTY ASSISTANT STOMACH CRAMPS, ) Gabapentin (Verified Allergy, Intermediate, swelling, 08/04/16) Potassium Chloride (Verified Allergy, Intermediate, ITCHY AND RASH, ) SPOKE W PATIENT - ALLERGIC TO *BRAND* KLOR-CON ONLY. TAKES GENERIC OUTPATIENT. CALLED OUTPATIENT PHARMACY - CONFIRMED NDC OF POTASSIUM CHLORIDE 10 [place] [id number] Amitriptyline (Verified Allergy, Mild, SWELLING, 08/04/16) Sitagliptin (Verified Allergy, Mild, Swelling , 08/04/16) Doxepin (Verified Allergy, Unknown, SWELLING, 08/04/16) Hyoscyamine (Verified Allergy, Unknown, SWELLING, 08/04/16) Adhesives (Verified Adverse Reaction, Intermediate, Tape - rash/itching, ) Social History Smoking Status: Never Smoker Hx Tobacco Use In Past Year?: No Hx Alcohol Use - Type And Amou: No Hx Substance Use - Type And Am: No Problem List Medical Problems: (1) Calculus of proximal right ureter Status: Acute (2) Chronic pulmonary embolism Status: Acute (3) Precordial chest pain Status: Acute (4) Tachycardia Status: Acute Physical Exam Vital Signs Last Vital Signs Documentation Date Time Temp Pulse Resp B/P (MAP) Pulse Ox O2 Delivery O2 Flow Rate FiO2 08/05/16 08:04 37.2 83 18 113/73 (86) 94 Room Air Physical Exam Constitutional: Level of Distress: NAD Neck: supple Lungs: Auscultation: no wheezing, no rales/crackles Cardiovascular: Heart Auscultation: RRR, no murmurs, no rubs Extremities: no edema Neurologic: Gait & Station: pertinent finding (no focal deficits ) Assessment and Plan Assessment and Plan Impression: 1. Recurrent atrial tachycardia 2. CT findings of chronic PEs 3. LORE on CPAP. 4. New inferior T wave changes, negative cardiac enzymes. 5. Anxiety Plan: Continue sotalol initiation on telemetry. Increase activity as tolerated. Presentation not consistent with ACS , but will observe for additional angina as sotalol load performed. Agree with coumadin for PE findings. Reduce ASA to 81 mg daily. QTc is mildly prolonged. Will continue 80 mg dose of sotalol. There is no QTc interaction with Sotalol and Cymbalta and Requip. Psych input noted and appreciated. Laboratory Results Last 24 Hours Test 08/04/16 11:37 08/04/16 16:08 08/04/16 20:17 08/05/16 05:57 Bedside Glucose 124 mg/dl 126 mg/dl 144 mg/dl White Blood Count 6.45 K/uL Red Blood Count 3.82 M/uL Hemoglobin 11.3 g/dL Hematocrit 35.0 % Mean Corpuscular Volume 91.6 fL Mean Corpuscular Hemoglobin 29.6 pg Mean Corpuscular Hemoglobin Concent 32.3 g/dl Platelet Count 255 K/uL Mean Platelet Volume 9.6 fL Neutrophils (%) (Auto) 63.5 % Lymphocytes (%) (Auto) 23.6 % Monocytes (%) (Auto) 9.3 % Eosinophils (%) (Auto) 1.7 % Basophils (%) (Auto) 0.3 % Neutrophils # (Auto) 4.10 K/uL Lymphocytes # (Auto) 1.52 K/uL Monocytes # (Auto) 0.60 K/uL Eosinophils # (Auto) 0.11 K/uL Basophils # (Auto) 0.02 K/uL RDW Standard Deviation 52.4 fL RDW Coefficient of Variation 15.7 % Immature Granulocyte % (Auto) 1.6 % Immature Granulocyte # (Auto) 0.10 K/uL Prothrombin Time 10.5 SECONDS Prothromb Time International Ratio 1.0 Sodium Level 142 mmol/L Potassium Level 4.2 mmol/L Chloride Level 107 mmol/L Carbon Dioxide Level 26 mmol/L Anion Gap 9.0 mmol/L Blood Urea Nitrogen 15 mg/dl Creatinine 0.91 mg/dl Est Creatinine Clear Calc Drug Dose 89.7 ml/min Estimated GFR () 80.0 Estimated GFR (Non- 69.1 BUN/Creatinine Ratio 16.3 Random Glucose 143 mg/dl Calcium Level 8.8 mg/dl Test 08/05/16 06:36 Bedside Glucose 141 mg/dl
[2016-08-05 11:21] VITALS: BP 128/79; PULSE 105; TEMP 36.9; O2SAT 94
--- NOTE | 2016-08-05 12:14 | Progress Note ---
Internal Med Progress Note Date of Service: Aug 05, 2016. Provider Documentation: SUBJECTIVE: Patient is doing better. Chest pain, palpitations have resolved. No SOB, cough, fever, chills, abdominal pain. Tele- NSR with HR in 80s OBJECTIVE: Vital Signs-as noted below Exam: General-AAOX3, no distress, morbidly obese + Neck-Supple, NO JVD Lungs-AEBE decreased, no wheezing, crackles Heart-S1, S2 normal, tachycardia + Abdomen-Soft, non tender, non distended, BS present Extremities-Right > left leg edema (chronic) Neuro-Grossly no focal deficits Lab data as noted below. ASSESSMENT & PLAN: ASSESSMENT AND PLAN : RECURRENT ATRIAL TACHYCARDIA Has been following up with Dr Shaw outpatient for this- PSVT and plan was for ablation but because of recent urological procedures - it was post poned. This admission she has atrial tachycardia with HR in 110s, now NSR with HR in 80s -Per cardiology, plan transition from metoprolol succinate to Sotalol 80 mg PO BID and titrate it to 120 mg PO BID if tolerates -Will monitor her x 72 hours while starting her on sotalol (Day 2) -EKG today shows T wave inversions more prominent in inferior leads, but no cardiac symptoms -Echo ordered per cardiology -Discussed with Dr Sanchez. Appreciate inputs CHEST PAIN, PLEURITIC- Resolved -Atypical for cardiac. Does have chronic small B/L PE on CT scan. -EKG- no sig changes, EKG today- T wave changes more prominent in inferior leads ; Trop x 2- neg, Echo ordered -Monitor on telemetry CHRONIC SMALL B/L PE Per CT scan and had similar results on prior CT scan as well -Prior hx of DVT (treated x 6 months some 10 years ago) , Hx of breast carcinoma , already on coumadin 1 mg for port prophylaxis, discussed with cardiology- finally decided to treat her given her risk of thromboembolic disease. -Venous duplex ordered - RLL to rule out DVT as right > left edema- Negative -Started her on coumadin with goal INR 2-3 ANXIETY/DEPRESSION No suicidal ideations -Psych consulted per admitting team- Increased duloxetin to 60 mg PO BID -QTC stable - should be okay on these medications per cardiology HX OF BREAST CARCINOMA S/P SURGERY/RADIATION/CHEMOTHERAPY -In remission DM-2 -On oral medications, well controlled as of recent HgA1C (6. 8 as of May 2016 ) DVT PROPHYLAXIS Coumadin FULL CODE DISPOSITION Continue with tele monitoring Need to monitor on tele as newly started on sotalol per cardiology Vital Signs: Date Time Temp Pulse Resp B/P (MAP) Pulse Ox O2 Delivery O2 Flow Rate FiO2 08/05/16 11:21 36.9 105 18 128/79 (95) 94 Room Air 08/05/16 08:04 37.2 83 18 113/73 (86) 94 Room Air 08/05/16 08:00 Room Air 08/05/16 04:00 36.7 84 18 113/72 (86) 95 08/05/16 04:00 CPAP 08/04/16 23:59 Room Air 08/04/16 23:52 37.0 89 19 109/71 (84) 95 CPAP 08/04/16 20:00 Room Air 08/04/16 19:51 36.9 85 18 111/67 (82) 93 Room Air 08/04/16 16:00 Room Air 08/04/16 15:37 37.0 87 16 103/67 (79) 95 Room Air Lab Results: Results Past 24 Hours Test 08/04/16 16:08 08/04/16 20:17 08/05/16 05:57 08/05/16 06:36 Range/Units Bedside Glucose 126 144 141 70-90 mg/dl White Blood Count 6.45 4.8-10.8 K/uL Red Blood Count 3.82 4.2-5.4 M/uL Hemoglobin 11.3 12.0-16.0 g/dL Hematocrit 35.0 37-47 % Mean Corpuscular Volume 91.6 80-100 fL Mean Corpuscular Hemoglobin 29.6 25-34 pg Mean Corpuscular Hemoglobin Concent 32.3 32-36 g/dl Platelet Count 255 130-400 K/uL Mean Platelet Volume 9.6 7.4-10.4 fL Neutrophils (%) (Auto) 63.5 % Lymphocytes (%) (Auto) 23.6 % Monocytes (%) (Auto) 9.3 % Eosinophils (%) (Auto) 1.7 % Basophils (%) (Auto) 0.3 % Neutrophils # (Auto) 4.10 1.4-6.5 K/uL Lymphocytes # (Auto) 1.52 1.2-3.4 K/uL Monocytes # (Auto) 0.60 0.11-0.59 K/uL Eosinophils # (Auto) 0.11 0-0.5 K/uL Basophils # (Auto) 0.02 0-0.2 K/uL RDW Standard Deviation 52.4 36.4-46.3 fL RDW Coefficient of Variation 15.7 11.5-14.5 % Immature Granulocyte % (Auto) 1.6 % Immature Granulocyte # (Auto) 0.10 0.00-0.02 K/uL Prothrombin Time 10.5 9.0-12.0 SECONDS Prothromb Time International Ratio 1.0 0.9-1.1 Sodium Level 142 136-145 mmol/L Potassium Level 4.2 3.5-5.1 mmol/L Chloride Level 107 98-107 mmol/L Carbon Dioxide Level 26 21-32 mmol/L Anion Gap 9.0 3-11 mmol/L Blood Urea Nitrogen 15 7-18 mg/dl Creatinine 0.91 0.60-1.20 mg/dl Est Creatinine Clear Calc Drug Dose 89.7 ml/min Estimated GFR () 80.0 Estimated GFR (Non- 69.1 BUN/Creatinine Ratio 16.3 10-20 Random Glucose 143 70-99 mg/dl Calcium Level 8.8 8.5-10.1 mg/dl Test 08/05/16 11:09 Range/Units Bedside Glucose 165 70-90 mg/dl
[2016-08-05 15:31] VITALS: BP 102/63; PULSE 86; TEMP 36.7; O2SAT 93
[2016-08-05] MEDS: OXYCODONE HCL IR 5 MG TAB (IMMEDIATE RELEASE) PO PRN (17:05)
[2016-08-05] MEDS: WARFARIN SOD 5 MG TAB PO SCH (17:06)
[2016-08-05] MEDS: ACETAMINOPHEN 325 MG TAB PO PRN (18:55)
[2016-08-05 19:59] VITALS: BP 120/78; PULSE 91; TEMP 36.6; O2SAT 94
[2016-08-05] MEDS: MULTIVITAMIN TAB PO SCH (20:45)
[2016-08-05] MEDS: ATORVASTATIN 20 MG TAB PO SCH (20:46)
[2016-08-05] MEDS: MONTELUKAST SOD 10 MG TAB PO SCH (20:46)
[2016-08-05 23:28] VITALS: BP 138/85; PULSE 102; TEMP 37; O2SAT 95
[2016-08-06 03:55] VITALS: BP 108/73; PULSE 111; TEMP 36.8; O2SAT 94
[2016-08-06] MEDS: INSULIN ASPART 100 UNITS/ML 3 ML PEN SC SCH ×4 (07:00→21:00)
[2016-08-06 07:17] VITALS: BP 110/69; PULSE 106; TEMP 36.5; O2SAT 93
[2016-08-06] MEDS: ENOXAPARIN 40 MG/0.4 ML SYR SC SCH (07:44)
[2016-08-06] MEDS: SOTALOL HCL 80 MG TAB PO SCH ×2 (07:45→20:34)
[2016-08-06] MEDS: DULOXETINE HCL 60 MG CAP PO SCH ×2 (07:45→20:34)
[2016-08-06] MEDS: TIOTROPIUM BROMIDE 5 PUFF/90 MCG INH INH SCH (07:45)
[2016-08-06] MEDS: RANITIDINE HCL 150 MG TAB PO SCH ×2 (07:45→20:35)
[2016-08-06] MEDS: FLUTICASONE/SALMETEROL 250/50 (ADVAIR) 14 PUFF/1 INHALER INH SCH ×2 (07:46→20:33)
[2016-08-06] MEDS: ACETAMINOPHEN 325 MG TAB PO PRN (07:46)
[2016-08-06] MEDS ORDERED: METOPROLOL TARTRATE 25 MG TAB PO ONE (09:19)
--- NOTE | 2016-08-06 09:19 | Cardiology Follow-Up ---
Subjective General Date of Service: Aug 06, 2016. Chief Complaint: follow up palpitations, chest pain Pt evaluation today including: conversation w/ patient, physical exam History of Present Illness The patient is a 60 year old female seen in follow up. Patient slept well overnight, wore her CPAP. She notes a few "heavy heart beats overnight". She reverted to the tachycardia at about 22:00 last night at 115 bpm, captured on EKG 08/06 6:55 am with HR of 109 and longer MT interval than her prior EKG, then converted again to SR at 83 bpm this am after EKG. She denies any anginal discomfort. No ischemic changes on most recent EKG, T w changes noted in the inferior lead on 08/05 not present this am. Allergies Coded Allergies: Codeine (Verified Allergy, Intermediate, ITCHY AND RASH, 08/04/16) Erythromycin (Verified Allergy, Intermediate, HEALTH PROGRAM DIRECTOR STOMACH CRAMPS, ) Gabapentin (Verified Allergy, Intermediate, swelling, 08/04/16) Potassium Chloride (Verified Allergy, Intermediate, ITCHY AND RASH, ) SPOKE W PATIENT - ALLERGIC TO *BRAND* KLOR-CON ONLY. TAKES GENERIC OUTPATIENT. CALLED OUTPATIENT PHARMACY - CONFIRMED NDC OF POTASSIUM CHLORIDE 10 [place] [id number] Amitriptyline (Verified Allergy, Mild, SWELLING, 08/04/16) Sitagliptin (Verified Allergy, Mild, Swelling , 08/04/16) Doxepin (Verified Allergy, Unknown, SWELLING, 08/04/16) Hyoscyamine (Verified Allergy, Unknown, SWELLING, 08/04/16) Adhesives (Verified Adverse Reaction, Intermediate, Tape - rash/itching, ) Social History Smoking Status: Never Smoker Hx Tobacco Use In Past Year?: No Hx Alcohol Use - Type And Amou: No Hx Substance Use - Type And Am: No Problem List Medical Problems: (1) Calculus of proximal right ureter Status: Acute (2) Chronic pulmonary embolism Status: Acute (3) Precordial chest pain Status: Acute (4) Tachycardia Status: Acute Physical Exam Vital Signs Last Vital Signs Documentation Date Time Temp Pulse Resp B/P (MAP) Pulse Ox O2 Delivery O2 Flow Rate FiO2 08/06/16 08:00 Room Air 08/06/16 07:17 36.5 106 20 110/69 (83) 93 Physical Exam Constitutional: Level of Distress: NAD Neck: supple Lungs: Auscultation: no wheezing, no rales/crackles Cardiovascular: Heart Auscultation: RRR, no murmurs, no rubs Extremities: no edema Neurologic: Gait & Station: pertinent finding (no focal deficits ) Assessment and Plan Assessment and Plan Impression: 1. Recurrent atrial tachycardia 2. CT findings of chronic PEs 3. LORE on CPAP. 4. Transient ,inferior T wave changes, negative cardiac enzymes, no anginal symptoms at time of EKG 5. Anxiety Plan: Continue sotalol initiation on telemetry. Do of sotalol limited by mild QT prolongation of ~480 ms, will add back a little metoprolol for supplemental HR control without risk of potentiating QT prolongation. Increase activity as tolerated. Presentation not consistent with ACS , but will observe for additional angina as sotalol load performed. Agree with coumadin for PE findings. Reduce ASA to 81 mg daily. Lovenox for DVT prophylaxis until INR > 1.5-2. Added daily INR levels to start tomorrow. Laboratory Results Last 24 Hours Test 08/05/16 11:09 08/05/16 16:10 08/05/16 20:42 08/06/16 06:44 Bedside Glucose 165 mg/dl 121 mg/dl 111 mg/dl 164 mg/dl
--- NOTE | 2016-08-06 11:23 | Progress Note ---
Internal Med Progress Note Date of Service: Aug 06, 2016. Provider Documentation: SUBJECTIVE: Patient c/o feeling tired, but overall stable Chest pain, palpitations have resolved. No SOB, cough, fever, chills, abdominal pain. Tele- Atrial tachycardia with HR in 130s yesterday night OBJECTIVE: Vital Signs-as noted below Exam: General-AAOX3, no distress, morbidly obese + Neck-Supple, NO JVD Lungs-AEBE decreased, no wheezing, crackles Heart-S1, S2 normal, tachycardia + Abdomen-Soft, non tender, non distended, BS present Extremities-Right > left leg edema (chronic) Neuro-Grossly no focal deficits Lab data as noted below. ASSESSMENT & PLAN: ASSESSMENT AND PLAN : RECURRENT ATRIAL TACHYCARDIA : Has been following up with Dr Shaw outpatient for this- PSVT and plan was for ablation but because of recent urological procedures - it was post poned. This admission she has atrial tachycardia with HR in 110s, now NSR with HR in 80s Tele- Atrial tachy with HR in 130s yesterday -Per cardiology, transition from metoprolol succinate to Sotalol 80 mg PO BID. As QTC is 480, atrial tachy recurrent with HR 130s-- added back metoprolol today -Tele monitoring while newly started on sotalol -EKG today shows T wave inversions more prominent in inferior leads, but no cardiac symptoms -Discussed with Dr Sanchez. Appreciate inputs CHEST PAIN, PLEURITIC- Resolved -Atypical for cardiac. Does have chronic small B/L PE on CT scan. -EKG- no sig changes, EKG - T wave changes more prominent in inferior leads; Trop x 2- neg. Monitor per cardiology -Monitor on telemetry CHRONIC SMALL B/L PE Per CT scan and had similar results on prior CT scan as well -Prior hx of DVT (treated x 6 months some 10 years ago) , Hx of breast carcinoma , already on coumadin 1 mg for port prophylaxis, discussed with cardiology- finally decided to treat her given her risk of thromboembolic disease. -Venous duplex ordered - RLL to rule out DVT as right > left edema- Negative -Started her on coumadin with goal INR 2-3 ANXIETY/DEPRESSION No suicidal ideations -Psych consulted per admitting team- Increased duloxetin to 60 mg PO BID per psychiatry -QTC stable - should be okay on these medications per cardiology HX OF BREAST CARCINOMA S/P SURGERY/RADIATION/CHEMOTHERAPY -In remission DM-2 -On oral medications, well controlled as of recent HgA1C (6. 8 as of May 2016 ) DVT PROPHYLAXIS Coumadin FULL CODE DISPOSITION Continue with tele monitoring Continues to have atrial tachycardia, continue to monitor Discussed with cardiology today Vital Signs: Date Time Temp Pulse Resp B/P (MAP) Pulse Ox O2 Delivery O2 Flow Rate FiO2 08/06/16 08:00 Room Air 08/06/16 07:17 36.5 106 20 110/69 (83) 93 08/06/16 04:00 CPAP 08/06/16 03:55 36.8 111 20 108/73 (85) 94 CPAP 08/06/16 00:00 CPAP 08/05/16 23:28 37.0 102 20 138/85 (102) 95 Room Air 08/05/16 20:00 Room Air 08/05/16 19:59 36.6 91 18 120/78 (92) 94 Room Air 08/05/16 16:00 Room Air 08/05/16 15:31 36.7 86 16 102/63 (76) 93 Room Air 08/05/16 12:00 Room Air Lab Results: Results Past 24 Hours Test 08/05/16 16:10 08/05/16 20:42 08/06/16 06:44 08/06/16 10:55 Range/Units Bedside Glucose 121 111 164 143 70-90 mg/dl
[2016-08-06 11:36] VITALS: BP 117/74; PULSE 82; TEMP 37.2; O2SAT 95
[2016-08-06 12:35] LABS: PROTHROMBIN TIME (PATIENT) 10.7 SECONDS (9.0-12.0)
[2016-08-06 15:28] VITALS: BP 120/82; PULSE 111; TEMP 36.7; O2SAT 96
[2016-08-06] MEDS ORDERED: WARFARIN SOD 7.5 MG TAB PO SCH (16:00)
[2016-08-06] MEDS: OXYCODONE HCL IR 5 MG TAB (IMMEDIATE RELEASE) PO PRN ×2 (17:35→23:25)
[2016-08-06 19:51] VITALS: BP 128/75; PULSE 85; TEMP 37.2; O2SAT 94
[2016-08-06] MEDS: ATORVASTATIN 20 MG TAB PO SCH (20:34)
[2016-08-06] MEDS: METOPROLOL TARTRATE 25 MG TAB PO SCH (20:34)
[2016-08-06] MEDS: MULTIVITAMIN TAB PO SCH (20:35)
[2016-08-06] MEDS: MONTELUKAST SOD 10 MG TAB PO SCH (20:35)
[2016-08-06 23:23] VITALS: BP 136/84; PULSE 84; TEMP 36.7; O2SAT 96
[2016-08-07 03:05] VITALS: BP 112/72; PULSE 86; TEMP 36.7; O2SAT 95
[2016-08-07] MEDS: INSULIN ASPART 100 UNITS/ML 3 ML PEN SC SCH ×4 (07:00→20:57)
[2016-08-07 07:41] LABS: INR 1.1 (0.9-1.1); PROTHROMBIN TIME (PATIENT) 11.4 SECONDS (9.0-12.0)
[2016-08-07 07:59] VITALS: BP 118/76; PULSE 82; TEMP 36.5; O2SAT 94
[2016-08-07] MEDS: FLUTICASONE/SALMETEROL 250/50 (ADVAIR) 14 PUFF/1 INHALER INH SCH ×2 (08:02→21:06)
[2016-08-07] MEDS: ENOXAPARIN 40 MG/0.4 ML SYR SC SCH (08:04)
[2016-08-07] MEDS: RANITIDINE HCL 150 MG TAB PO SCH ×2 (08:04→21:06)
[2016-08-07] MEDS: TIOTROPIUM BROMIDE 5 PUFF/90 MCG INH INH SCH (08:05)
[2016-08-07] MEDS: SOTALOL HCL 80 MG TAB PO SCH ×2 (08:05→21:05)
[2016-08-07] MEDS: DULOXETINE HCL 60 MG CAP PO SCH ×2 (08:05→21:05)
[2016-08-07] MEDS: METOPROLOL TARTRATE 25 MG TAB PO SCH ×2 (08:06→21:04)
[2016-08-07 08:29] LABS: BUN/CREATININE RATIO 16.9 (10-20); CALCIUM 8.4 mg/dl (8.5-10.1); CREATININE 0.94 mg/dl (0.60-1.20); MAGNESIUM 2.1 mg/dl (1.8-2.4); POTASSIUM 3.8 mmol/L (3.5-5.1)
[2016-08-07 10:58] VITALS: BP 124/77; PULSE 96; TEMP 37.1; O2SAT 93
--- NOTE | 2016-08-07 11:51 | Progress Note ---
Internal Med Progress Note Date of Service: Aug 07, 2016. Provider Documentation: SUBJECTIVE: Patient c/o feeling tired, had some palpitations overnight, but overall stable No chest pain- resolved No SOB, cough, fever, chills, abdominal pain. Tele- Atrial tachycardia with HR in 130s yesterday night and rest of the times, NSR with HR in 80s OBJECTIVE: Vital Signs-as noted below Exam: General-AAOX3, no distress, morbidly obese + Neck-Supple, NO JVD Lungs-AEBE decreased, no wheezing, crackles Heart-S1, S2 normal, tachycardia + Abdomen-Soft, non tender, non distended, BS present Extremities-Right > left leg edema (chronic) Neuro-Grossly no focal deficits Lab data as noted below. ASSESSMENT & PLAN: ASSESSMENT AND PLAN : RECURRENT ATRIAL TACHYCARDIA : Has been following up with Dr Shaw outpatient for this- PSVT and plan was for ablation but because of recent urological procedures - it was post poned. This admission she has atrial tachycardia with HR up to 130s, and NSR with HR in 80s Tele- Atrial tachy with HR in 130s yesterday and NSR in 80s rest of the time -Per cardiology, transition from metoprolol succinate to Sotalol 80 mg PO BID. As QTC is 480, atrial tachy recurrent with HR 130s-- added back metoprolol on 08/06/16 -Tele monitoring while newly started on sotalol -EKG showed T wave inversions more prominent in inferior leads, but no cardiac symptoms -Discussed with Dr Sanchez. Appreciate inputs. Defer mx to Cardiology CHEST PAIN, PLEURITIC- Resolved -Atypical for cardiac. Does have chronic small B/L PE on CT scan. -EKG- no sig changes, EKG - T wave changes more prominent in inferior leads; Trop x 2- neg. Monitor per cardiology -Monitor on telemetry CHRONIC SMALL B/L PE Per CT scan and had similar results on prior CT scan as well -Prior hx of DVT (treated x 6 months some 10 years ago) , Hx of breast carcinoma , already on coumadin 1 mg for port prophylaxis, discussed with cardiology- finally decided to treat her given her risk of thromboembolic disease. -Venous duplex ordered - RLL to rule out DVT as right > left edema- Negative -Started her on coumadin with goal INR 2-3, Increase coumadin to 10 mg from 7.5 ANXIETY/DEPRESSION No suicidal ideations -Psych consulted per admitting team- Increased duloxetin to 60 mg PO BID per psychiatry -QTC stable - should be okay on these medications per cardiology HX OF BREAST CARCINOMA S/P SURGERY/RADIATION/CHEMOTHERAPY -In remission DM-2 -On oral medications, well controlled as of recent HgA1C (6. 8 as of May 2016 ) DVT PROPHYLAXIS Coumadin/Lovenox sq till INR therapeutic FULL CODE DISPOSITION Continue with tele monitoring Continues to have atrial tachycardia recurrent episodes Vital Signs: Date Time Temp Pulse Resp B/P (MAP) Pulse Ox O2 Delivery O2 Flow Rate FiO2 08/07/16 10:58 37.1 96 16 124/77 (93) 93 Room Air 08/07/16 08:00 Room Air 08/07/16 07:59 36.5 82 16 118/76 (90) 94 Room Air 08/07/16 04:00 Room Air 08/07/16 04:00 Room Air 08/07/16 03:05 36.7 86 19 112/72 (85) 95 CPAP 08/06/16 23:59 Room Air 08/06/16 23:23 36.7 84 20 136/84 (101) 96 Room Air 08/06/16 20:00 Room Air 08/06/16 19:51 37.2 85 20 128/75 (92) 94 Room Air 08/06/16 16:00 Room Air 08/06/16 15:28 36.7 111 20 120/82 (95) 96 Room Air 08/06/16 12:00 Room Air Lab Results: Results Past 24 Hours Test 08/06/16 12:05 08/06/16 16:22 08/06/16 21:01 08/07/16 06:33 Range/Units Prothrombin Time 10.7 9.0-12.0 SECONDS Prothromb Time International Ratio 1.0 0.9-1.1 Bedside Glucose 144 143 151 70-90 mg/dl Test 08/07/16 07:00 08/07/16 10:55 Range/Units Prothrombin Time 11.4 9.0-12.0 SECONDS Prothromb Time International Ratio 1.1 0.9-1.1 Sodium Level 141 136-145 mmol/L Potassium Level 3.8 3.5-5.1 mmol/L Chloride Level 105 98-107 mmol/L Carbon Dioxide Level 26 21-32 mmol/L Anion Gap 10.0 3-11 mmol/L Blood Urea Nitrogen 16 7-18 mg/dl Creatinine 0.94 0.60-1.20 mg/dl Est Creatinine Clear Calc Drug Dose 87.7 ml/min Estimated GFR () 77.0 Estimated GFR (Non- 66.4 BUN/Creatinine Ratio 16.9 10-20 Random Glucose 148 70-99 mg/dl Calcium Level 8.4 8.5-10.1 mg/dl Magnesium Level 2.1 1.8-2.4 mg/dl Bedside Glucose 138 70-90 mg/dl
--- NOTE | 2016-08-07 12:35 | Cardiology Follow-Up ---
Subjective General Date of Service: Aug 07, 2016. Chief Complaint: follow up palpitations, chest pain Pt evaluation today including: conversation w/ patient, physical exam History of Present Illness The patient is a 60 year old female seen in follow up. She is out of bed and sitting in chair. Telem reveals SR last night and today. EKG this am reveals SR with stable QTc. 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 TAKES GENERIC OUTPATIENT. CALLED OUTPATIENT PHARMACY - CONFIRMED [facility] OF POTASSIUM CHLORIDE 10 [place] [id number] Amitriptyline (Verified Allergy, Mild, SWELLING, 08/04/16) Sitagliptin (Verified Allergy, Mild, Swelling , 08/04/16) Doxepin (Verified Allergy, Unknown, SWELLING, 08/04/16) Hyoscyamine (Verified Allergy, Unknown, SWELLING, 08/04/16) Adhesives (Verified Adverse Reaction, Intermediate, Tape - rash/itching, ) Social History Smoking Status: Never Smoker Hx Tobacco Use In Past Year?: No Hx Alcohol Use - Type And Amou: No Hx Substance Use - Type And Am: No Problem List Medical Problems: (1) Calculus of proximal right ureter Status: Acute (2) Chronic pulmonary embolism Status: Acute (3) Precordial chest pain Status: Acute (4) Tachycardia Status: Acute Physical Exam Vital Signs Last Vital Signs Documentation Date Time Temp Pulse Resp B/P (MAP) Pulse Ox O2 Delivery O2 Flow Rate FiO2 08/07/16 10:58 37.1 96 16 124/77 (93) 93 Room Air Physical Exam Constitutional: Level of Distress: NAD Neck: supple Lungs: Auscultation: no wheezing, no rales/crackles Cardiovascular: Heart Auscultation: RRR, no murmurs, no rubs Extremities: no edema Neurologic: Gait & Station: pertinent finding (no focal deficits ) Assessment and Plan Assessment and Plan Impression: 1. Recurrent atrial tachycardia 2. CT findings of chronic PEs 3. LORE on CPAP. 4. Transient ,inferior T wave changes, negative cardiac enzymes, no anginal symptoms at time of EKG 5. Anxiety Plan: Has completed first 6 doses of sotalol on telemetry. Dose of sotalol limited by mild QT prolongation of ~480 ms, will add back a little metoprolol for supplemental HR control without risk of potentiating QT prolongation. Increase activity as tolerated. Presentation not consistent with ACS , but will observe for additional angina as sotalol load performed. Agree with coumadin for PE findings. Reduce ASA to 81 mg daily. If patient feels well walking anticipate DC within next 24 hours, with anticoagulation clinic follow up. Laboratory Results Last 24 Hours Test 08/06/16 16:22 08/06/16 21:01 08/07/16 06:33 08/07/16 07:00 Bedside Glucose 144 mg/dl 143 mg/dl 151 mg/dl Prothrombin Time 11.4 SECONDS Prothromb Time International Ratio 1.1 Sodium Level 141 mmol/L Potassium Level 3.8 mmol/L Chloride Level 105 mmol/L Carbon Dioxide Level 26 mmol/L Anion Gap 10.0 mmol/L Blood Urea Nitrogen 16 mg/dl Creatinine 0.94 mg/dl Est Creatinine Clear Calc Drug Dose 87.7 ml/min Estimated GFR () 77.0 Estimated GFR (Non- 66.4 BUN/Creatinine Ratio 16.9 Random Glucose 148 mg/dl Calcium Level 8.4 mg/dl Magnesium Level 2.1 mg/dl Test 08/07/16 10:55 Bedside Glucose 138 mg/dl
[2016-08-07] MEDS ORDERED: WARFARIN SOD 5 MG TAB PO SCH (16:00)
[2016-08-07 16:14] VITALS: BP 118/75; PULSE 101; TEMP 37; O2SAT 97
[2016-08-07] MEDS: OXYCODONE HCL IR 5 MG TAB (IMMEDIATE RELEASE) PO PRN (19:52)
[2016-08-07 19:55] VITALS: BP 128/80; PULSE 87; TEMP 36.6; O2SAT 95
[2016-08-07] MEDS: ATORVASTATIN 20 MG TAB PO SCH (21:05)
[2016-08-07] MEDS: MONTELUKAST SOD 10 MG TAB PO SCH (21:06)
[2016-08-07] MEDS: MULTIVITAMIN TAB PO SCH (21:06)
[2016-08-08] MEDS: OXYCODONE HCL IR 5 MG TAB (IMMEDIATE RELEASE) PO PRN (00:07)
[2016-08-08 00:12] VITALS: BP 104/68; PULSE 82; TEMP 37; O2SAT 95
[2016-08-08 03:45] VITALS: BP 105/66; PULSE 79; TEMP 36.8; O2SAT 96
[2016-08-08] MEDS: INSULIN ASPART 100 UNITS/ML 3 ML PEN SC SCH ×2 (07:00→11:00)
[2016-08-08 07:16] LABS: MEAN CELL VOLUME 92.8 fL (80-100); MEAN CORPUSCULAR HEMOGLOBIN 30.2 pg (25-34); MEAN CORPUSCULAR HGB CONC 32.5 g/dl (32-36); MEAN PLATELET VOLUME 10.1 fL (7.4-10.4); PLATELET COUNT 253 K/uL (130-400); RED BLOOD COUNT 3.88 M/uL (4.2-5.4); WHITE BLOOD COUNT 7.68 K/uL (4.8-10.8)
[2016-08-08 07:27] VITALS: BP 135/69; PULSE 79; TEMP 36.5; O2SAT 93
[2016-08-08 07:32] LABS: INR 1.2 (0.9-1.1); PROTHROMBIN TIME (PATIENT) 12.9 SECONDS (9.0-12.0)
[2016-08-08 07:45] LABS: BUN/CREATININE RATIO 17.2 (10-20); CALCIUM 8.6 mg/dl (8.5-10.1); CREATININE 0.93 mg/dl (0.60-1.20)
[2016-08-08] MEDS: FLUTICASONE/SALMETEROL 250/50 (ADVAIR) 14 PUFF/1 INHALER INH SCH (08:36)
[2016-08-08] MEDS: RANITIDINE HCL 150 MG TAB PO SCH (08:37)
[2016-08-08] MEDS: TIOTROPIUM BROMIDE 5 PUFF/90 MCG INH INH SCH (08:37)
[2016-08-08] MEDS: METOPROLOL TARTRATE 25 MG TAB PO SCH (08:38)
[2016-08-08] MEDS: SOTALOL HCL 80 MG TAB PO SCH (08:38)
[2016-08-08] MEDS: DULOXETINE HCL 60 MG CAP PO SCH (08:38)
[2016-08-08] MEDS: ENOXAPARIN 40 MG/0.4 ML SYR SC SCH (08:39)
--- NOTE | 2016-08-08 10:53 | Progress Note ---
Internal Med Progress Note Date of Service: Aug 08, 2016. Provider Documentation: SUBJECTIVE: Patient is feeling much better today. No chest pain- resolved No SOB, cough, fever, chills, abdominal pain. Tele- Fluctuates between atrial tachycardia with RVR and NSR OBJECTIVE: Vital Signs-as noted below Exam: General-AAOX3, no distress, morbidly obese + Neck-Supple, NO JVD Lungs-AEBE decreased, no wheezing, crackles Heart-S1, S2 normal, tachycardia + Abdomen-Soft, non tender, non distended, BS present Extremities-Right > left leg edema (chronic) Neuro-Grossly no focal deficits Lab data as noted below. ASSESSMENT & PLAN: ASSESSMENT AND PLAN : RECURRENT ATRIAL TACHYCARDIA : Has been following up with Dr Shaw outpatient for this- PSVT and plan was for ablation but because of recent urological procedures - it was post poned. Tele- Fluctuates between atrial tachycardia and NSR -Per cardiology, transitioned from metoprolol succinate to Sotalol 80 mg PO BID . Metoprolol 25 mg PO BID added back on 08/06/16 as HR was still up and QTC 480 , so couldnt go up on sotalol. Monitored on monitor > 72 hours while on sotalol. QTC today 498 -EKG showed T wave inversions more prominent in inferior leads, but no cardiac symptoms--> resolved. -Discussed with Dr Sanchez. Appreciate inputs. Cleared for discharge to home today CHEST PAIN, PLEURITIC- Resolved -Atypical for cardiac. Does have chronic small B/L PE on CT scan. -EKG- no sig changes, EKG later- T wave changes more prominent in inferior leads which resolved; Trop x 2- neg. -No further intervention per cardiology CHRONIC SMALL B/L PE Per CT scan and had similar results on prior CT scan as well -Prior hx of DVT (treated x 6 months some 10 years ago) , Hx of breast carcinoma , already on coumadin 1 mg for port prophylaxis, discussed with cardiology- finally decided to treat her given her risk of thromboembolic disease. -Venous duplex ordered - RLL to rule out DVT as right > left edema- Negative -Started her on coumadin with goal INR 2-3, Increased coumadin to 10 mg from 7.5. INR today 1.2 -Follow up with coumadin clinic ANXIETY/DEPRESSION No suicidal ideations -Psych consulted per admitting team- Increased duloxetin to 60 mg PO BID per psychiatry -QTC stable - should be okay on these medications per cardiology -Monitor outpatient HX OF BREAST CARCINOMA S/P SURGERY/RADIATION/CHEMOTHERAPY -In remission DM-2 -On oral medications, well controlled as of recent HgA1C (6. 8 as of May 2016 ) DVT PROPHYLAXIS Coumadin/Lovenox sq till INR therapeutic FULL CODE DISPOSITION Cleared for discharge to home. Okay to discharge per cardiology Vital Signs: Date Time Temp Pulse Resp B/P (MAP) Pulse Ox O2 Delivery O2 Flow Rate FiO2 08/08/16 07:27 36.5 79 19 135/69 (91) 93 Room Air 08/08/16 04:00 Room Air 08/08/16 03:45 36.8 79 18 105/66 (79) 96 Room Air 08/08/16 00:12 37.0 82 18 104/68 (80) 95 Room Air 08/08/16 00:00 Room Air 08/07/16 20:00 Room Air 08/07/16 19:55 36.6 87 18 128/80 (96) 95 Room Air 08/07/16 16:14 37.0 101 18 118/75 (89) 97 CPAP 08/07/16 16:00 Room Air 08/07/16 12:00 Room Air 08/07/16 10:58 37.1 96 16 124/77 (93) 93 Room Air Lab Results: Results Past 24 Hours Test 08/07/16 10:55 08/07/16 16:20 08/07/16 20:26 08/08/16 06:50 Range/Units Bedside Glucose 138 127 116 143 70-90 mg/dl White Blood Count 7.68 4.8-10.8 K/uL Red Blood Count 3.88 4.2-5.4 M/uL Hemoglobin 11.7 12.0-16.0 g/dL Hematocrit 36.0 37-47 % Mean Corpuscular Volume 92.8 80-100 fL Mean Corpuscular Hemoglobin 30.2 25-34 pg Mean Corpuscular Hemoglobin Concent 32.5 32-36 g/dl RDW Standard Deviation 53.3 36.4-46.3 fL RDW Coefficient of Variation 15.7 11.5-14.5 % Platelet Count 253 130-400 K/uL Mean Platelet Volume 10.1 7.4-10.4 fL Prothrombin Time 12.9 9.0-12.0 SECONDS Prothromb Time International Ratio 1.2 0.9-1.1 Sodium Level 140 136-145 mmol/L Potassium Level 4.0 3.5-5.1 mmol/L Chloride Level 105 98-107 mmol/L Carbon Dioxide Level 26 21-32 mmol/L Anion Gap 9.0 3-11 mmol/L Blood Urea Nitrogen 16 7-18 mg/dl Creatinine 0.93 0.60-1.20 mg/dl Est Creatinine Clear Calc Drug Dose 88.7 ml/min Estimated GFR () 78.0 Estimated GFR (Non- 67.3 BUN/Creatinine Ratio 17.2 10-20 Random Glucose 143 70-99 mg/dl Calcium Level 8.6 8.5-10.1 mg/dl
[2016-08-08] MEDS ORDERED: CMD5 PO (10:55)
[2016-08-08] MEDS ORDERED: BTP80 PO (10:55)
[2016-08-08] MEDS ORDERED: LPR25 PO (10:55)
[2016-08-08] MEDS ORDERED: CYM/30 PO (10:55)
--- NOTE | 2016-08-08 10:58 | Discharge Instructions ---
Discharge Instructions Date of Service Aug 08, 2016. Admission Reason for Admission: Chest Pain Discharge Discharge Diagnosis / Problem: 1. Atrial tachycardia Discharge Goals Goal(s): Diagnostic testing, Therapeutic intervention Activity Recommendations Activity Limitations: resume your previous activity . Instructions / Follow-Up Instructions / Follow-Up MEDICATION CHANGES: 1. New medication: Sotalol 80 mg PO BID 2. Increased Duloxetin to 60 mg PO BID from 60 mg daily 3. Decreased metoprolol to 25 mg PO BID as started on sotalol 4. Started on Coumadin 10 mg (take at 4 pm daily) instead of 1 mg to treat for chronic small bilateral Pulmonary embolism. Dose will need re adjustment according to INR by coumadin clinic. FOLLOW UP 1. Follow up with Dr Crnae on 08/12/16 at 1:00 PM 2. Follow up with Cardiology and EP as per schedule 3. Follow up with coumadin clinic . They will call you for appt date time Current Hospital Diet Patient's current hospital diet: Diabetes Type 2 Diet, AHA Diet (Heart Healthy) Discharge Diet Recommended Diet: AHA Diet (Heart Healthy), Low Sodium Diet (2gm Na), Diabetes Type 2 Diet, Low Fat Diet Pending Studies Studies pending at discharge: no Medical Emergencies . Who to Call and When: Medical Emergencies: If at any time you feel your situation is an emergency, please call 911 immediately. . Non-Emergent Contact Non-Emergency issues call your: Primary Care Provider, Supervisor Air Conditioning Installer . . "Provider Documentation" section prepared by Nedra Shoemaker. . VTE Core Measure Inpt VTE Proph given/why not?: Warfarin (Coumadin)
--- NOTE | 2016-08-08 11:01 | Discharge Summary ---
Discharge Summary Date of Service Aug 08, 2016. Discharge Summary Admission Date: Aug 05, 2016 at 13:07 Discharge Date: Aug 08, 2016 Discharge Disposition: Home Principal Diagnosis: 1. Recurrent atrial tachycardia, symptomatic 2. Chest pain, acute MO ruled out 3. Chronic small B/L Pulmonary embolism Secondary Diagnoses/Problems: 1. Hx of breast carcinoma 2. DM-2 3. Morbid obesity 4. Anxiety/Depression Procedures: Tele monitoring EKG-serial Troponin- serial CT scan chest US duplex CXR Consultations: Cardiology, Dr Sanchez Pending Studies/Follow-Up: Instructions / Follow-Up MEDICATION CHANGES: 1. New medication: Sotalol 80 mg PO BID 2. Increased Duloxetin to 60 mg PO BID from 60 mg daily 3. Decreased metoprolol to 25 mg PO BID as started on sotalol 4. Started on Coumadin 10 mg (take at 4 pm daily) instead of 1 mg to treat for chronic small bilateral Pulmonary embolism. Dose will need re adjustment according to INR by coumadin clinic. FOLLOW UP 1. Follow up with Dr Crane on 08/12/16 at 1:00 PM 2. Follow up with Cardiology and EP as per schedule 3. Follow up with coumadin clinic . They will call you for appt date time Medication Reconciliation New Medications: Metoprolol Tartrate (Lopressor) 25 Mg Tab 25 MG PO BID for 30 Days, #60 TAB Sotalol HCl (Sotalol HCl) 80 Mg Tab 80 MG PO BID for 30 Days, #60 TAB Warfarin Sod (Coumadin) 5 Mg Tab 10 MG PO DAILY@16 for 10 Days, #20 TAB Changed Medications: Duloxetine HCl (Cymbalta) 30 Mg Cap 60 MG PO BID for 30 Days, #60 CAP 2 Refills (Changed from: QAM; 30) Continued Medications: Acetaminophen (Tylenol Arthitis Ext Rel) 650 Mg Ertab 1300 MG PO QPM PRN for Headache or Pain, CAP Atorvastatin (Lipitor) 20 Mg Tab 20 MG PO HS, TAB Bisacodyl (Dulcolax) 5 Mg Tab 1 TAB PO UD PRN for PRN for 1 Day, #2 TAB Fluticasone Prop/Salmeterol (Advair Diskus 250/50 60 Dose) 1 Ea Aerp 1 PUFF INH BID, INHALER Glimepiride (Glimepiride) 4 Mg Tab 4 MG PO QAM L-Methylfolate W/ Vitamin B6-V (Foltanx) 1 Tab Tab 1 TAB PO BID Levalbuterol Hcl (Levalbuterol) 1.25 Mg/0.5 Ml Neb 1.25 MG INH Q4 PRN for Wheezing Loperamide Hcl (Imodium) 2 Mg Cap 4 MG PO PRN, CAP Magnesium Chloride (Slow-Mag Tab) 64 Mg Tabcr 3 TAB PO QAM, TAB Magnesium Chloride (Slow-Mag Tab) 64 Mg Tabcr 2 TABS PO QPM, TAB Metformin Hcl (Glucophage) 1,000 Mg Tab 1000 MG PO BID, TAB Montelukast Sodium (Singulair) 10 Mg Tab 10 MG PO DAILY, TAB Multiple Vitamin (Multi-Vitamin Daily) 1 Tab Tab 1 TAB PO QPM Oxycodone Ir (Roxicodone Ir) 5 Mg Tab 5 MG PO Q4H PRN for Pain, #20 TAB Potassium Ext Rel (Klor-Con) 20 Meq Tabcr 20 MEQ PO BID, TAB Ranitidine (Zantac) 150 Mg Tab 1 TAB PO BID for 30 Days, #60 TAB 3 Refills Ropinirole (Requip) 0.5 Mg Tab 0.5 MG PO HS PRN for restless legs, TAB Tiotropium [place] (Spiriva Handihaler) 30 Puff/540 Mcg Aerp 1 CAP INH QAM, INHALER Triamcinolone Acetonide (Nasal (Nasacort Allergy 24Hr Chi) 55 Mcg/Act Spr 1 SPRAY MISHEL HS Discontinued Medications: Duloxetine Hcl (Cymbalta) 30 Mg Cap 30 MG PO HS, CAP Levalbuterol Tartrate (Levalbuterol Tartrate Hfa) 45 Mcg/Act Aer 2 PUFFS INH Q4 PRN for SOB/Wheezing Metoprolol Succ (Toprol Xl) (Toprol-Xl) 50 Mg Tabcr 75 MG PO QPM, #30 TAB Metoprolol Succinate (Toprol Xl) 50 Mg Tabcr 50 MG PO QAM, #30 TAB Warfarin Sodium (Coumadin) 1 Mg Tab 1 MG PO QAM, TAB Admission Information HPI (per Admitting provider): HISTORY OF PRESENT ILLNESS: History obtained from patient and records. Medical history significant for breast cancer L status post surgery/ chemoradiation, hx BRCA, history of DVT sp anticoag, hypertension, DM2 on oral meds, fibromyalgia as per records, PSVT as per records, mood dso, urolithiasis, asthma, past tobacco abuse Recent confinement last May 2016 for flank pain, nausea 2 to renal calculus. Ptient underwent an outpatient urologic procedure. Patient was also seen by cardiology for PSVT. Lopressor dose was increased. Patient discharged on 100 mg b.i.d. subsequently brought down because of fatigue. Px seen by PCP last month for grief, anxiety, and depression. px denies suicidality. Possible outpatient psych at [facility]. Patient admits to more stress the last week, overwhelmed at home, also recovering from viral bronchitis infection. A few hours ago the patient had band like chest discomfort with some palpitations, some relief with nitroglycerin, nonradiating. Patient does not check his blood pressure at home. Patient is compliant with home meds. Px denies inhaler/nebulizer overuse. Hospital Course ASSESSMENT AND PLAN : RECURRENT ATRIAL TACHYCARDIA : Has been following up with Dr Shaw outpatient for this- PSVT and plan was for ablation but because of recent urological procedures - it was post poned. Tele- Fluctuates between atrial tachycardia and NSR -Per cardiology, transitioned from metoprolol succinate to Sotalol 80 mg PO BID . Metoprolol 25 mg PO BID added back on 08/06/16 as HR was still up and QTC 480 , so couldnt go up on sotalol. Monitored on monitor > 72 hours while on sotalol. QTC today 498 -EKG showed T wave inversions more prominent in inferior leads, but no cardiac symptoms--> resolved. -Discussed with Dr Sanchez. Appreciate inputs. Cleared for discharge to home today CHEST PAIN, PLEURITIC- Resolved -Atypical for cardiac. Does have chronic small B/L PE on CT scan. -EKG- no sig changes, EKG later- T wave changes more prominent in inferior leads which resolved; Trop x 2- neg. -No further intervention per cardiology CHRONIC SMALL B/L PE Per CT scan and had similar results on prior CT scan as well -Prior hx of DVT (treated x 6 months some 10 years ago) , Hx of breast carcinoma , already on coumadin 1 mg for port prophylaxis, discussed with cardiology- finally decided to treat her given her risk of thromboembolic disease. -Venous duplex ordered - RLL to rule out DVT as right > left edema- Negative -Started her on coumadin with goal INR 2-3, Increased coumadin to 10 mg from 7.5. INR today 1.2 -Follow up with coumadin clinic ANXIETY/DEPRESSION No suicidal ideations -Psych consulted per admitting team- Increased duloxetin to 60 mg PO BID per psychiatry -QTC stable - should be okay on these medications per cardiology -Monitor outpatient HX OF BREAST CARCINOMA S/P SURGERY/RADIATION/CHEMOTHERAPY -In remission DM-2 -On oral medications, well controlled as of recent HgA1C (6. 8 as of May 2016 ) DVT PROPHYLAXIS Coumadin/Lovenox sq prophylactic till INR therapeutic FULL CODE DISPOSITION Cleared for discharge to home. Okay to discharge per cardiology Total time spent on discharge = 35 minutes This includes examination of the patient, discharge planning, medication reconciliation, and communication with other providers. Discharge Instructions Discharge Goals Goal(s): Diagnostic testing, Therapeutic intervention Activity Recommendations Activity Limitations: resume your previous activity . Instructions / Follow-Up Instructions / Follow-Up MEDICATION CHANGES: 1. New medication: Sotalol 80 mg PO BID 2. Increased Duloxetin to 60 mg PO BID from 60 mg daily 3. Decreased metoprolol to 25 mg PO BID as started on sotalol 4. Started on Coumadin 10 mg (take at 4 pm daily) instead of 1 mg to treat for chronic small bilateral Pulmonary embolism. Dose will need re adjustment according to INR by coumadin clinic. FOLLOW UP 1. Follow up with Dr Crane on 08/12/16 at 1:00 PM 2. Follow up with Cardiology and EP as per schedule 3. Follow up with coumadin clinic . They will call you for appt date time Current Hospital Diet Patient's current hospital diet: Diabetes Type 2 Diet, AHA Diet (Heart Healthy) Discharge Diet Recommended Diet: AHA Diet (Heart Healthy), Low Sodium Diet (2gm Na), Diabetes Type 2 Diet, Low Fat Diet Pending Studies Studies pending at discharge: no Medical Emergencies . Who to Call and When: Medical Emergencies: If at any time you feel your situation is an emergency, please call 911 immediately. . Non-Emergent Contact Non-Emergency issues call your: Primary Care Provider, Developmental Psychologist . . "Provider Documentation" section prepared by Nedra Shoemaker. . VTE Core Measure Inpt VTE Proph given/why not?: Warfarin (Coumadin)
[2016-08-08 11:36] VITALS: BP 135/69; PULSE 79; TEMP 36.5; O2SAT 93
[2016-08-12] MEDS ORDERED: VERA120T65 PO (14:48)
== END 2016-08-08 13:28 | disposition home or self-care (01) | DRG 309 ==
LOC: ENRESERVTM → ENRESERVDT → C.EDB 03:09 → C.2T 06:22 → OBSVTOIN 08-05 13:07
PROVIDERS: ADMIT Internal Medicine; ATTEND Internal Medicine
DX: I47.1 Supraventricular tachycardia (principal); I27.82 Chronic pulmonary embolism; Z68.42 Body mass index [BMI] 45.0-49.9, adult; J45.909 Unspecified asthma, uncomplicated; Z85.3 Personal history of malignant neoplasm of breast; F32.9 Major depressive disorder, single episode, unspecified; E11.9 Type 2 diabetes mellitus without complications; Z86.718 Personal history of other venous thrombosis and embolism; M79.7 Fibromyalgia; I10 Essential (primary) hypertension; G47.33 Obstructive sleep apnea (adult) (pediatric); G25.81 Restless legs syndrome; Z82.49 Family history of ischemic heart disease and other diseases of the circulatory system; Z87.891 Personal history of nicotine dependence; Z15.01 Genetic susceptibility to malignant neoplasm of breast; Z92.3 Personal history of irradiation; E66.01 Morbid (severe) obesity due to excess calories; F41.9 Anxiety disorder, unspecified; E78.5 Hyperlipidemia, unspecified; I73.00 Raynaud's syndrome without gangrene; I89.0 Lymphedema, not elsewhere classified; G43.909 Migraine, unspecified, not intractable, without status migrainosus

== ENCOUNTER 2016-08-10 15:38 | Observation (INO) | payer OTHER ==
[~2016-08-10] VITALS: Ht 165.1 cm; Wt 130.2 kg
[~2016-08-10 15:38] MED LIST changes: +BTP80 PO; +CMD5 PO; -LEVA45AE INH; +LPR25 PO; -METO-217 PO; -METO50TA7 PO; +MONT1TAB3 PO; -WARF1TAB PO
[2016-08-10] MEDS ORDERED: SODIUM CHLORIDE 0.9% 1000ML 1,000 ML IV STA (15:59)
[2016-08-10] MEDS ORDERED: SODIUM CHLORIDE 0.9% 500ML 500 ML IV STA (15:59)
--- NOTE | 2016-08-10 16:34 | EMERGENCY ROOM VISIT NOTE ---
History Report prepared by Juan Antonio: Terrie Nava Under the Supervision of: Dr. Rodolfo Retana M.D. First contact with patient: 15:51 Chief Complaint: TACHYCARDIA Stated Complaint: CHEST TIGHTNES,DISCHARGE SUN WITH ATRIAL TACH, Nursing Triage Summary: Pt states she is here for tachycardia, Just d/c for Afib. Pt states she has "no pain, just tightness". Pt symptoms began around midnight last night while laying in bed. Lightheaded. History of Present Illness The patient is a 60 year old female who presents to the Emergency Room with complaints of constant tachycardia beginning at midnight last night. The patient states that she was laying in bed when she felt her heart rate increased. The patient has a history of tachycardia for the past 2 years and is followed by Dr. Hogan - Cardiology. The patient was hospitalized one week ago for similar symptoms. She was started on Sotalol at that time. The patient was then discharged home 2 days ago once her heart rate was in the 80s. She states yesterday she felt good but slightly fatigued. The patient was resting today and her heart rate did not lower below 100. The patient states that she feels this is a typical presentation of her tachycardia episodes. She denies shortness of breath at rest. She notes if her heart rate quickens she does experience shortness of breath. The patient states that she has been taking her medications correctly. The patient denies cough or cold like symptoms. She began Coumadin last week after a chronic bilateral PE was found. Her INR is scheduled to be checked tomorrow. Source of History: patient Onset: midnight Position: other (global) Quality: other (tachycardia) Timing: constant Associated Symptoms: No cough, No SOB Note: The patient denies cold like symptoms. Review of Systems See HPI for pertinent positives & negatives. A total of 10 systems reviewed and were otherwise negative. Past Medical & Surgical Medical Problems: (1) Asthma (2) Breast cancer (3) Chest pain (4) Degeneration of cervical intervertebral disc (5) Depressive disorder (6) Diabetes mellitus, type II (7) DVT (deep venous thrombosis) (8) Fibromyalgia (9) Gastroesophageal reflux disease (10) History of breast cancer (11) History of DVT (deep vein thrombosis) (12) Hypertension (13) Lymphedema (14) Migraine headache (15) Obstructive sleep apnea syndrome (16) Restless legs syndrome (17) Right ureteral calculus (18) Ureteral calculus of right kidney transplant Surgical Problems: (1) Status post cholecystectomy (2) Status post partial mastectomy Family History FHx: cancer FHx: diabetes FHx: heart disease FHx: hypertension Social History Smoking Status: Former Smoker Alcohol Use: none Drug Use: none Marital Status: Housing Status: lives with significant other Occupation Status: retired Current/Historical Medications Scheduled Atorvastatin (Lipitor), 20 MG PO HS Duloxetine HCl (Cymbalta), 60 MG PO BID Fluticasone Prop/Salmeterol (Advair Diskus 250/50 60 Dose), 1 PUFF INH BID Glimepiride (Glimepiride), 4 MG PO QAM L-Methylfolate W/ Vitamin B6-V (Foltanx), 1 TAB PO BID Loperamide Hcl (Imodium), 4 MG PO PRN Magnesium Chloride (Slow-Mag Tab), 3 TAB PO QAM Magnesium Chloride (Slow-Mag Tab), 2 TABS PO QPM Metformin Hcl (Glucophage), 1,000 MG PO BID Metoprolol Tartrate (Lopressor), 25 MG PO BID Montelukast Sodium (Singulair), 10 MG PO DAILY Multiple Vitamin (Multi-Vitamin Daily), 1 TAB PO QPM Potassium Chloride (Potassium Chloride ER), 20 MEQ PO BID Ranitidine (Zantac), 1 TAB PO BID Sotalol HCl (Sotalol HCl), 80 MG PO BID Tiotropium [place] (Spiriva Handihaler), 1 CAP INH QAM Triamcinolone Acetonide (Nasal (Nasacort Allergy 24Hr Chi), 1 SPRAY MISHEL HS Warfarin Sod (Coumadin), 10 MG PO DAILY@16 Scheduled PRN Acetaminophen (Tylenol Arthitis Ext Rel), 1,300 MG PO QPM PRN for Headache or Pain Bisacodyl (Dulcolax), 1 TAB PO UD PRN for PRN Levalbuterol Hcl (Levalbuterol), 1.25 MG INH Q4 PRN for Wheezing Oxycodone Ir (Roxicodone Ir), 5 MG PO Q4H PRN for Pain Ropinirole (Requip), 0.5 MG PO HS PRN for restless legs Allergies Coded Allergies: Codeine (Verified Allergy, Intermediate, ITCHY AND RASH, 08/10/16) Erythromycin (Verified Allergy, Intermediate, RN ACLS STOMACH CRAMPS, ) Gabapentin (Verified Allergy, Intermediate, swelling, 08/10/16) Potassium Chloride (Verified Allergy, Intermediate, ITCHY AND RASH, ) SPOKE W PATIENT - ALLERGIC TO *BRAND* KLOR-CON ONLY. TAKES GENERIC OUTPATIENT. CALLED OUTPATIENT PHARMACY - CONFIRMED NDC OF POTASSIUM CHLORIDE 10 [place] [id number] Amitriptyline (Verified Allergy, Mild, SWELLING, 08/10/16) Sitagliptin (Verified Allergy, Mild, Swelling , 08/10/16) Doxepin (Verified Allergy, Unknown, SWELLING, 08/10/16) Hyoscyamine (Verified Allergy, Unknown, SWELLING, 08/10/16) Tricyclic Antidepressants (Unverified Allergy, Unknown, SWELLING, 08/10/16) Adhesives (Verified Adverse Reaction, Intermediate, Tape - rash/itching, ) Physical Exam Vital Signs Date Time Temp Pulse Resp B/P (MAP) Pulse Ox O2 Delivery O2 Flow Rate FiO2 08/10/16 16:34 110 18 154/88 95 08/10/16 16:31 106 08/10/16 15:43 37.2 114 20 154/79 94 Room Air Physical Exam GENERAL: Patient is in no acute distress. HEENT: No acute trauma, normocephalic atraumatic, mucous membranes moist, no nasal congestion, no scleral icterus. NECK: No stridor, no adenopathy, no meningismus, trachea is midline. LUNGS: Clear to auscultation bilaterally, no wheeze, no rhonchi, breath sounds equal. HEART: Mildly tachycardic with regular rhythm, no murmurs. ABDOMEN: Soft, nontender, bowel sounds positive, no hernias, no peritonitis. EXTREMITIES: Mild bilateral pitting edema. No cyanosis, full range of motion of all the joints without pain or difficulty, no signs for acute trauma. NEUROLOGIC: Oriented x 3, no acute motor or sensory deficits, no focal weakness. SKIN: No rash, no jaundice, no diaphoresis. Medical Decision & Procedures Laboratory Results 08/10/16 16:36 08/10/16 16:36 Test 08/10/16 16:36 Red Blood Count 4.29 M/uL (4.2-5.4) Mean Corpuscular Volume 92.3 fL (80-100) Mean Corpuscular Hemoglobin 28.0 pg (25-34) Mean Corpuscular Hemoglobin Concent 30.3 g/dl (32-36) RDW Standard Deviation 53.0 fL (36.4-46.3) RDW Coefficient of Variation 15.7 % (11.5-14.5) Mean Platelet Volume 10.0 fL (7.4-10.4) Prothrombin Time 20.1 SECONDS (9.0-12.0) Prothromb Time International Ratio 1.8 (0.9-1.1) Activated Partial Thromboplast Time 33.6 SECONDS (21.0-31.0) Partial Thromboplastin Ratio 1.3 Anion Gap 9.0 mmol/L (3-11) Est Creatinine Clear Calc Drug Dose 88.0 ml/min Estimated GFR () 78.0 Estimated GFR (Non- 67.3 BUN/Creatinine Ratio 16.5 (10-20) Calcium Level 8.8 mg/dl (8.5-10.1) Magnesium Level 1.9 mg/dl (1.8-2.4) Total Bilirubin 0.3 mg/dl (0.2-1) Aspartate Amino Transf (AST/SGOT) 15 U/L (15-37) Alanine Aminotransferase (ALT/SGPT) 28 U/L (12-78) Alkaline Phosphatase 111 U/L (45-117) Troponin I < 0.015 ng/ml (0-0.045) Total Protein 7.3 gm/dl (6.4-8.2) Albumin 3.6 gm/dl (3.4-5.0) Globulin 3.7 gm/dl (2.5-4.0) Albumin/Globulin Ratio 1.0 (0.9-2) Laboratory results reviewed by me. Medications Administered Medications (Trade) Dose Ordered Sig/Tiburcio Route Start Time Stop Time Status Last Admin Dose Admin Sodium Chloride 500 ml @ 999 mls/hr Q31M STAT IV 08/10/16 15:59 08/10/16 16:29 DC 08/10/16 15:59 999 MLS/HR Sodium Chloride 1,000 ml @ 200 mls/hr Q5H STAT IV 08/10/16 15:59 08/10/16 20:58 08/10/16 16:31 200 MLS/HR ECG Indication: tachycardia Rate (beats per minute): 107 Rhythm: sinus tachycardia Findings: no acute ischemic change, no ectopy ED Course 1552: The patient was evaluated in room B10. A complete history and physical exam was performed. 1559: Sodium Chloride 1,000 ml @ 200 mls/hr IV, Sodium Chloride 1,000 ml @ 999 mls/hr IV. 1602: I spoke with Dr. Daniel Frederick about the patient. He would like the patient to be hospitalized for medication adjustment. 1725: Discussed the patient's case Dr. Navid Dominguez. The patient will be evaluated for further management. 1730: I discussed the plan with the patient. 1751: I discussed results and treatment plan with the patient. She verbalizes agreement and understanding. The patient will be evaluated for further management. Medical Decision The patient is a 60 year old female who presents to the ED with complaints of tachycardia. Differential diagnoses considered include dysrhythmia, atrial tachycardia, dehydration, electrolyte imbalance, anemia, PE. There is no leukocytosis or concerning anemia. No significant electrolyte abnormality, kidney failure or hepatitis. INR is 1.8, consistent with her Coumadin use. Chest film does not show pneumonia or CHF. EKG shows a sinus tachycardia, no acute ischemia. Cardiac enzyme testing 1 is not consistent with acute cardiac injury. The patient presents with tachycardia. She was just in the hospital for the same. I spoke with the tugboat operator communications representative, he recommended a repeat stay in the hospital for medication adjustments, possible ablation. She is already on 2 different rate controlling meds, she is having breakthrough tachycardia. I spoke to the on-call hospitalist, I did speak with case management. The patient is aware of her findings. Admission/observation is warranted. Medication Reconciliation: I attest that I have personally reviewed the patient' s current medication list. Blood Pressure Screening: Patient was found to have an elevated blood pressure and was referred to their primary doctor for recheck and further treatment. Consults Time Called: 1600 Consulting Physician: Dr. Daniel Frederick Returned Call: [address] Daniel Frederick about the patient. He would like the patient to be hospitalized for medication adjustment. Additional Consults: Time Called: 1723 Consulted Physician: Dr. Shoemaker - [facility] Returned Call: 1725 Additional Comments: Discussed the patient's case. The patient will be evaluated for further management. Impression Primary Impression: Tachycardia Scribe Attestation The scribe's documentation has been prepared under my direction and personally reviewed by me in its entirety. I confirm that the note above accurately reflects all work, treatment, procedures, and medical decision making performed by me. Departure Information Dispostion Being Evaluated By Hospitalist Referrals Hortensia Crane M.D. (PCP)
[2016-08-10 16:41] LABS: HEMATOCRIT 39.6 % (37-47); MEAN CELL VOLUME 92.3 fL (80-100); MEAN CORPUSCULAR HGB CONC 30.3 g/dl (32-36); PLATELET COUNT 294 K/uL (130-400); RED BLOOD COUNT 4.29 M/uL (4.2-5.4); WHITE BLOOD COUNT 7.74 K/uL (4.8-10.8)
[2016-08-10 16:58] LABS: ALT/SGPT 28 U/L (12-78); AST/SGOT 15 U/L (15-37); BLOOD UREA NITROGEN 15 mg/dl (7-18); BUN/CREATININE RATIO 16.5 (10-20); CALCIUM 8.8 mg/dl (8.5-10.1); CARBON DIOXIDE 26 mmol/L (21-32); CHLORIDE 106 mmol/L (98-107); CREATININE 0.93 mg/dl (0.60-1.20); GLUCOSE 185 mg/dl (70-99); MAGNESIUM 1.9 mg/dl (1.8-2.4); POTASSIUM 4.2 mmol/L (3.5-5.1); SODIUM 141 mmol/L (136-145)
[2016-08-10] MEDS ORDERED: POTA-65 PO (16:58)
[2016-08-10 17:02] LABS: INR 1.8 (0.9-1.1); PARTIAL THROMBOPLASTIN RATIO 1.3; PROTHROMBIN TIME (PATIENT) 20.1 SECONDS (9.0-12.0)
[2016-08-10 17:03] LABS: ALKALINE PHOSPHATASE 111 U/L (45-117)
[2016-08-10] MEDS ORDERED: ONDANSETRON INJ 2 MG/ML 2 ML VIAL IV PRN (17:45)
[2016-08-10] MEDS ORDERED: GLUCOSE 10 TABS/TUBE PO PRN (18:00)
[2016-08-10] MEDS ORDERED: DEXTROSE 50% 50 ML SYR IV PRN (18:00)
[2016-08-10] MEDS ORDERED: GLUCAGON FOR INJ 1 MG VIAL SQ PRN (18:00)
[2016-08-10] MEDS ORDERED: GLUCOSE 40% GEL 15 GM TUBE PO PRN (18:00)
[2016-08-10] MEDS ORDERED: OXYC1TAB3 PO (18:05)
[2016-08-10] MEDS ORDERED: WARFARIN SOD 5 MG TAB PO SCH (18:07)
[2016-08-10] MEDS ORDERED: LEVALBUTEROL 1.25MG/0.5ML NEB INH PRN (18:15)
[2016-08-10] MEDS ORDERED: ROPINIROLE HCL 0.25 MG TAB PO PRN (18:15)
[2016-08-10] MEDS ORDERED: BISACODYL 5 MG TABEC PO PRN (18:15)
[2016-08-10] MEDS ORDERED: TRIAMCINOLONE ACET NASAL SPRAY 10.8ML BTL NAE PRN (18:15)
--- NOTE | 2016-08-10 18:28 | History and Physical ---
History & Physical Date & Time of Service: Aug 10, 2016 at 18:10 Chief Complaint: Chest Tightnes,Discharge Sun With Atrial Tach Primary Care Physician: Hortensia Crane M.D. History of Present Illness Source: patient, hospital records This is a 60 y/o female with PMH of paroxysmal atrial tachycardia, chronic small bilateral PE, anxiety, depression, hx breast CA s/p surgery, radiation, chemo, DM type 2, and other problems listed below who presents to the ED for palpitations. Patient was recently admitted to [facility] from August 05-2016 for recurrent symptomatic atrial tachycardia, chest pain- acute KS ruled out, chronic small bilateral PE. On that admission she was evaluated by cardiology, started on sotalol 80 mg BID, and metoprolol was decreased to 25 mg BID. She was previously on Coumadin 1 mg daily for port prophylaxis but changed to therapeutic dosing (INR goal 2-3). Patient states she as feeling better after discharge, then around midnight last night while lying down developed palpitations with her HR measured at home up to 110s at rest. She states HR increased to 130s with ambulating a few steps. She reports associated fatigue and lightheadedness. This morning she had chest tightness in a band distribution while at rest. She states chest discomfort worked up on last admission was similar but today's discomfort was less severe. Pt reports chronic IBARRA unchanged from baseline. She was feeling sweaty/ flushed in the ER. Currently she feels better. Has chronic bilat LE pain attributed to neuropathy and chronic lymphedema- no change from basleine. She denies URI symptoms, cough , SOB at rest, orthopnea, syncope, abdominal pain, N/V/D, urinary change, abnormal bleeding. Pt has been seen by Dr. Shaw with plan for possible ablation. Past Medical/Surgical History Medical Problems: (1) Asthma Status: Chronic (2) Breast cancer Permanent Comment: Abnormal left breast mammogram 07/24/2010 Ultrasound-guided biopsy with finding of invasive adenocarcinoma Estrogen receptor negative, progesterone receptor negative, HER-2/mario negative Family history with genetic testing positive for BRCA1 mutation Status post bilateral mastectomies left breast stage pT3 pN2a M0 Immediate breast reconstruction with bilateral tissue expanders Removal of left tissue package designer due to infection November 2010 Removal of right breast tissue package designer due to infection December 2010 Status post chemotherapy with TAC Status post completion of radiation therapy 09/15/2011 received 6120 cGy Status: Resolved (3) Chronic bilateral pulmonary embolism Status: Chronic (4) Degeneration of cervical intervertebral disc Status: Chronic (5) Depressive disorder Status: Chronic (6) Diabetes mellitus, type II Status: Chronic (7) DVT (deep venous thrombosis) Status: Chronic (8) Dyslipidemia Status: Chronic (9) Fibromyalgia Status: Chronic (10) Gastroesophageal reflux disease Status: Chronic (11) History of breast cancer Status: Chronic (12) History of DVT (deep vein thrombosis) Status: Chronic (13) Hypertension Status: Chronic (14) Lymphedema Status: Chronic (15) Migraine headache Status: Chronic (16) Obstructive sleep apnea syndrome Status: Chronic (17) PSVT (paroxysmal supraventricular tachycardia) Status: Chronic (18) Restless legs syndrome Status: Chronic (19) Right ureteral calculus Status: Resolved (20) Sleep apnea Status: Chronic Surgical Problems: (1) H/O exploratory laparotomy Status: Chronic (2) H/O foot surgery Status: Chronic (3) H/O umbilical hernia repair Status: Chronic (4) History of carpal tunnel surgery Status: Chronic (5) History of hysterectomy Status: Chronic (6) S/P breast reconstruction Status: Chronic (7) Status post cholecystectomy Status: Chronic (8) Status post partial mastectomy Status: Chronic Family History FHx: cancer FHx: diabetes FHx: heart disease FHx: hypertension Social History Smoking Status: Former Smoker (quit 32 year ago) Alcohol Use: none Drug Use: none Marital Status: Housing status: lives with family Occupational Status: retired Immunizations History of Influenza Vaccine: Yes Influenza Vaccine Date: Nov 11, 2015 History of Tetanus Vaccine?: Yes Tetanus Immunization Date: Sep 12, 2007 History of Pneumococcal: Yes Pneumococcal Date: Nov 10, 2006 History of Hepatitis B Vaccine: Yes Hepatitis Immunization Date: Aug 24, 2013 Multi-Drug Resistant Organisms History of MDRO: No Allergies Coded Allergies: Codeine (Verified Allergy, Intermediate, ITCHY AND RASH, 08/10/16) Erythromycin (Verified Allergy, Intermediate, GRINDER GEAR STOMACH CRAMPS, ) Gabapentin (Verified Allergy, Intermediate, swelling, 08/10/16) Potassium Chloride (Verified Allergy, Intermediate, ITCHY AND RASH, ) SPOKE W PATIENT - ALLERGIC TO *BRAND* KLOR-CON ONLY. TAKES GENERIC OUTPATIENT. CALLED OUTPATIENT PHARMACY - CONFIRMED NDC OF POTASSIUM CHLORIDE 10 [place] [id number] Amitriptyline (Verified Allergy, Mild, SWELLING, 08/10/16) Sitagliptin (Verified Allergy, Mild, Swelling , 08/10/16) Doxepin (Verified Allergy, Unknown, SWELLING, 08/10/16) Hyoscyamine (Verified Allergy, Unknown, SWELLING, 08/10/16) Tricyclic Antidepressants (Unverified Allergy, Unknown, SWELLING, 08/10/16) Adhesives (Verified Adverse Reaction, Intermediate, Tape - rash/itching, ) Home Medications Scheduled Atorvastatin (Lipitor), 20 MG PO HS Duloxetine HCl (Cymbalta), 60 MG PO BID Fluticasone Prop/Salmeterol (Advair Diskus 250/50 60 Dose), 1 PUFF INH BID Glimepiride (Glimepiride), 4 MG PO QAM L-Methylfolate W/ Vitamin B6-V (Foltanx), 1 TAB PO BID Magnesium Chloride (Slow-Mag Tab), 3 TAB PO QAM Magnesium Chloride (Slow-Mag Tab), 2 TABS PO QPM Metformin Hcl (Glucophage), 1,000 MG PO BID Metoprolol Tartrate (Lopressor), 25 MG PO BID Montelukast Sodium (Singulair), 10 MG PO HS Multiple Vitamin (Multi-Vitamin Daily), 1 TAB PO QPM Oxycodone Ir (Roxicodone Ir), 5 MG PO UD Potassium Chloride (Potassium Chloride ER), 20 MEQ PO BID Ranitidine (Zantac), 1 TAB PO BID Sotalol HCl (Sotalol HCl), 80 MG PO BID Tiotropium [place] (Spiriva Handihaler), 1 CAP INH HS Warfarin Sod (Coumadin), 10 MG PO DAILY@16 Scheduled PRN Acetaminophen (Tylenol Arthitis Ext Rel), 1,300 MG PO QPM PRN for Headache or Pain Bisacodyl (Dulcolax), 1 TAB PO DAILY PRN for Constipation Levalbuterol Hcl (Levalbuterol), 1.25 MG INH Q4 PRN for Wheezing Loperamide Hcl (Imodium), 4 MG PO UD PRN for Diarrhea Ropinirole (Requip), 0.5 MG PO HS PRN for restless legs Triamcinolone Acetonide (Nasal (Nasacort Allergy 24Hr Chi), 1 SPRAY MISHEL HS PRN for Nasal Congestion Review of Systems Ten systems reviewed and negative except as noted in HPI. Physical Exam Vital Signs Date Time Temp Pulse Resp B/P (MAP) Pulse Ox O2 Delivery O2 Flow Rate FiO2 08/10/16 16:34 110 18 154/88 95 08/10/16 16:31 106 08/10/16 15:43 37.2 114 20 154/79 94 Room Air General Appearance: no apparent distress, + obese, + pertinent finding (alert 60 year old female, lying in bed, no distress) Head: normocephalic, atraumatic Eyes: normal inspection, PERRL, sclerae normal ENT: hearing grossly normal, pharynx normal Neck: supple, no JVD, trachea midline Respiratory/Chest: chest non-tender, lungs clear, normal breath sounds, no respiratory distress, no accessory muscle use Cardiovascular: no murmur, normal peripheral pulses, + tachycardia (regular rhythm, rate 110's) Abdomen/GI: normal bowel sounds, non tender, soft Extremities/Musculoskelatal: no pedal edema, + pertinent finding (mild calf tenderness bilat- chronic per patient) Neurologic/Psych: alert, normal mood/affect, oriented x 3, + pertinent finding (no focal deficit on gross examination) Skin: normal color, warm/dry Diagnostics Laboratory Results Results Past 24 Hours Test 08/10/16 16:36 Range/Units White Blood Count 7.74 4.8-10.8 K/uL Red Blood Count 4.29 4.2-5.4 M/uL Hemoglobin 12.0 12.0-16.0 g/dL Hematocrit 39.6 37-47 % Mean Corpuscular Volume 92.3 80-100 fL Mean Corpuscular Hemoglobin 28.0 25-34 pg Mean Corpuscular Hemoglobin Concent 30.3 32-36 g/dl RDW Standard Deviation 53.0 36.4-46.3 fL RDW Coefficient of Variation 15.7 11.5-14.5 % Platelet Count 294 130-400 K/uL Mean Platelet Volume 10.0 7.4-10.4 fL Prothrombin Time 20.1 9.0-12.0 SECONDS Prothromb Time International Ratio 1.8 0.9-1.1 Activated Partial Thromboplast Time 33.6 21.0-31.0 SECONDS Partial Thromboplastin Ratio 1.3 Sodium Level 141 136-145 mmol/L Potassium Level 4.2 3.5-5.1 mmol/L Chloride Level 106 98-107 mmol/L Carbon Dioxide Level 26 21-32 mmol/L Anion Gap 9.0 3-11 mmol/L Blood Urea Nitrogen 15 7-18 mg/dl Creatinine 0.93 0.60-1.20 mg/dl Est Creatinine Clear Calc Drug Dose 88.0 ml/min Estimated GFR () 78.0 Estimated GFR (Non- 67.3 BUN/Creatinine Ratio 16.5 10-20 Random Glucose 185 70-99 mg/dl Calcium Level 8.8 8.5-10.1 mg/dl Magnesium Level 1.9 1.8-2.4 mg/dl Total Bilirubin 0.3 0.2-1 mg/dl Aspartate Amino Transf (AST/SGOT) 15 15-37 U/L Alanine Aminotransferase (ALT/SGPT) 28 12-78 U/L Alkaline Phosphatase 111 45-117 U/L Troponin I < 0.015 0-0.045 ng/ml Total Protein 7.3 6.4-8.2 gm/dl Albumin 3.6 3.4-5.0 gm/dl Globulin 3.7 2.5-4.0 gm/dl Albumin/Globulin Ratio 1.0 0.9-2 EKG sinus tachycardia, rate 107, qtc 467, nonspecific T flattening in III, no ST abnormality Impression Assessment and Plan Patient seen in collaboration with Dr. Nedra Shoemaker. Please see her addendum for assessment and plan. VTE Prophylaxis VTE Risk Assessment Done? Y/N: Yes Risk Level: Moderate Given or contraindicated: Warfarin (Coumadin)
--- NOTE | 2016-08-10 18:30 | Progress Note ---
Progress Note Date of Service Aug 10, 2016. Progress Note Patient was seen and evaluated with PAGermania. Patient was discharged on 08/08/16 for recurrent atrial tachycardia, started on sotalol 80 mg PO BID, Metoprolol 25 mg PO BID and sent home per cardiology recommendations. Comes back with similar symptoms, feeling tired, palpitations, HR not going below 100. EXAM: Gen- AAOX3, Obese, not in distress Neck- Short neck Lungs- AEBE, no wheezing, crackles Heart- Tachycardia Ext- no edema ASSESSMENT AND PLAN : RECURRENT ATRIAL TACHYCARDIA : Has been following up with Dr Shaw outpatient for this- PSVT and plan was for ablation but because of recent urological procedures - it was post poned. Discharged on 08/08/16 for recurrent atrial tachycardia, kept on tele > 3 days for initiation of sotalol 80 mg PO BID, Metoprolol 25 mg PO BID and sent home per cardiology recommendations. -In ED, Tele shows Sinus tachycardia -Continue with Sotalol 80 mg bid (qtc borderline so not much room to go up on dose). Increase metoprolol to 50 mg PO BID per cardiology recommendations -Will add echocardiogram, EKG in AM CHRONIC SMALL B/L PE -Prior hx of DVT (treated x 6 months some 10 years ago) , Hx of breast carcinoma , already on coumadin 1 mg for port prophylaxis, discussed with cardiology- finally decided to treat her given her risk of thromboembolic disease. This was during her last admission -Venous duplex last admission - RLL to rule out DVT as right > left edema- Negative -Continue with coumadin 10 mg . INR 1.8 ANXIETY/DEPRESSION Last admission, duloxetin was increased to 60 mg PO BID per psychiatry. HX OF BREAST CARCINOMA S/P SURGERY/RADIATION/CHEMOTHERAPY -In remission DM-2 -On oral medications, well controlled as of recent HgA1C (6. 8 as of May 2016 ) DVT PROPHYLAXIS Coumadin/Lovenox sq prophylactic till INR therapeutic FULL CODE DISPOSITION Admit to telemetry
[2016-08-10 19:00] VITALS: BP_SYST 139; BP_SYST 163; BP_DIAS 80; BP_DIAS 82; PULSE 106; PULSE 116; TEMP 36.8; TEMP 36.9; O2SAT 97; Ht 165.1 cm; Wt 130.2 kg
[2016-08-10 20:00] VITALS: O2SAT 97
[2016-08-10] MEDS ORDERED: VITAMIN B6 V PO SCH (21:00)
[2016-08-10] MEDS ORDERED: METHYLFOLATE PO SCH (21:00)
[2016-08-10] MEDS: INSULIN ASPART 100 UNITS/ML 3 ML PEN SC SCH (21:00)
[2016-08-10] MEDS ORDERED: IV FLUIDS COMPLETED PRN (22:00)
[2016-08-10 23:22] VITALS: BP 163/82; PULSE 116; TEMP 36.8; O2SAT 95
[2016-08-10] MEDS: FLUTICASONE/SALMETEROL 250/50 (ADVAIR) 14 PUFF/1 INHALER INH SCH (23:37)
[2016-08-10] MEDS: TIOTROPIUM BROMIDE 5 PUFF/90 MCG INH INH SCH (23:38)
[2016-08-10] MEDS: DULOXETINE (CYMBALTA) 30 MG CAP PO SCH (23:39)
[2016-08-10] MEDS: SOTALOL HCL 80 MG TAB PO SCH (23:39)
[2016-08-10] MEDS: ATORVASTATIN 20 MG TAB PO SCH (23:40)
[2016-08-10] MEDS: MONTELUKAST SOD 10 MG TAB PO SCH (23:41)
[2016-08-10] MEDS: MULTIVITAMIN TAB PO SCH (23:41)
[2016-08-10] MEDS: METOPROLOL TARTRATE 25 MG TAB PO SCH (23:41)
[2016-08-10] MEDS: RANITIDINE HCL 150 MG TAB PO SCH (23:42)
[2016-08-10] MEDS: MAGNESIUM CHLORIDE 64MG DELAYED REL TAB PO SCH (23:42)
[2016-08-10] MEDS: OXYCODONE HCL IR 5 MG TAB (IMMEDIATE RELEASE) PO SCH (23:43)
[2016-08-11] VITALS (10 sets, daily range): BP systolic 102–152; BP diastolic 64–87; PULSE 78–105; TEMP 36.5–37; O2SAT 93–97
[2016-08-11] MEDS: ACETAMINOPHEN 325 MG TAB PO PRN (01:19)
[2016-08-11 08:27] LABS: INR 1.8 (0.9-1.1); PROTHROMBIN TIME (PATIENT) 19.8 SECONDS (9.0-12.0)
[2016-08-11] MEDS: MAGNESIUM CHLORIDE 64MG DELAYED REL TAB PO SCH ×2 (08:33→20:52)
[2016-08-11] MEDS: DULOXETINE (CYMBALTA) 30 MG CAP PO SCH ×2 (08:33→20:51)
[2016-08-11] MEDS: SOTALOL HCL 80 MG TAB PO SCH (08:34)
[2016-08-11] MEDS: METOPROLOL TARTRATE 25 MG TAB PO SCH (08:34)
[2016-08-11] MEDS: POTASSIUM CHLORIDE 20 MEQ TABCR PO SCH ×2 (08:34→17:08)
[2016-08-11] MEDS: FLUTICASONE/SALMETEROL 250/50 (ADVAIR) 14 PUFF/1 INHALER INH SCH ×2 (08:35→20:48)
[2016-08-11 08:58] LABS: BUN/CREATININE RATIO 16.5 (10-20); CREATININE 0.96 mg/dl (0.60-1.20); MAGNESIUM 2.1 mg/dl (1.8-2.4); POTASSIUM 4.1 mmol/L (3.5-5.1)
[2016-08-11] MEDS ORDERED: ENOXAPARIN 40 MG/0.4 ML SYR SQ SCH (09:00)
[2016-08-11 09:25] LABS: CALCIUM 9.1 mg/dl (8.5-10.1)
[2016-08-11] MEDS: RANITIDINE HCL 150 MG TAB PO SCH ×2 (09:35→20:53)
[2016-08-11] MEDS: INSULIN ASPART 100 UNITS/ML 3 ML PEN SC SCH ×4 (09:37→20:59)
[2016-08-11] MEDS ORDERED: PERFLUTREN LIPID MICROSPHERE (DEFINITY) IV ONE (10:09)
--- NOTE | 2016-08-11 11:07 | ECHOCARDIOGRAM REPORT ---
*NOTICE TO RECEIVING DEMOCRAT AGENCY This information is strictly Confidential and protected under [place] law. [place] law prohibits you from making any further disclosure of this information unless further disclosure is expressly permitted by the written consent of the person to whom it pertains or is authorized by law. A general authorization for the release of medical or other information is not sufficient for this purpose. Hospital accepts no responsibility if the information is made available to any other person, INCLUDING THE PATIENT. Interpretation Summary * Name: CHANDNI CORDERO Study Date: 08/11/2016 07:02 AM BP: 113/72 mmHg * Patient Location: [facility]\S\[id number]\S\1 HR: 80 * : 1955 (M/d/yyyy) Gender: Female Height: 65 in * Age: 60 yrs Ethnicity: CA Weight: 283 lb * Ordering Physician: Nedra Shoemaker. * Referring Physician: Chandrakant Hogan * Performed By: Melly Cárdenas * * Reason For Study: ATRIAL TACHYCARDIA * BSA: 2.3 m2 * The study was technically difficult. * The study was technically limited. * -- Conclusions -- * The left ventricular wall motion is normal. * Ejection Fraction = 60-65%. * There is mild mitral regurgitation. * Grade I diastolic dysfunction, (abnormal relaxation pattern). Procedure Details * A complete two-dimensional transthoracic echocardiogram was performed (2D, M-mode, Doppler and color flow Doppler). * The study was technically difficult. * There were technical limitations due to patient'sbody habitus * A contrast injection of Definity was performed to improve assessment of LV function. * Contrast was injected into an intravenous site in the right arm. * One vial of Definity ultrasound contrast was diluted in normal saline to a total volume of 10 ml. A total of '3' ml of solution was administered during imaging. * Lot # [id number] of Definity utilized for procedure. * Expiration date 08/22. * The attending nurse who injected the contrast agent was CRIS RODRIGUEZ RN. Left Ventricle * The left ventricle is normal in size. * There is normal left ventricular wall thickness. * Left ventricular systolic function is normal. * Ejection Fraction = 60-65%. * The left ventricular wall motion is normal. Right Ventricle * The right ventricle is normal size. * The right ventricular systolic function is normal as assessed by tricuspid annular plane systolic excursion (TAPSE) (normal >1.5 cm). Atria * The left atrial size is normal. * Right atrial size is normal. * There is no evidence of atrial septal defect, but resolution does not allow assessment for a patent foramen ovale. Mitral Valve * The mitral valve is normal. * There is no mitral valve stenosis. * There is mild mitral regurgitation. Tricuspid Valve * The tricuspid valve is normal. * There is no tricuspid stenosis. * Significant tricuspid regurgitation is absent. Aortic Valve * The aortic valve is trileaflet. * Aortic stenosis is absent. * There is no significant aortic regurgitation. Pulmonic Valve * The pulmonary valve is not well seen, but the Doppler examination is normal without significant regurgitation or stenosis. Great Vessels * The aortic root and proximal ascending aorta are normal sized. Pericardium/Pleural * There is no pericardial effusion. Great Vessels * Normal inferior vena cava diameter and respiratory variation suggests normal central venous pressure. Left Ventricular Diastolic Function * Grade I diastolic dysfunction, (abnormal relaxation pattern). MMode 2D Measurements and Calculations IVSd 1.5 cm IVSs 1.9 cm LVIDd 4.3 cm LVIDs 3.0 cm LVPWd 1.3 cm LVPWs 1.7 cm IVS/LVPW 1.1 FS 30.1 % EDV(Teich) 85.0 ml ESV(Teich) 36.0 ml EF(Teich) 57.6 % EDV(cubed) 81.9 ml ESV(cubed) 28.0 ml EF(cubed) 65.8 % % IVS thick 27.8 % % LVPW thick 25.3 % LV mass(C)d 233.8 grams LV mass(C)dI 102.0 grams/m\S\2 LV mass(C)s 212.6 grams LV mass(C)sI 92.7 grams/m\S\2 SV(Teich) 48.9 ml SI(Teich) 21.4 ml/m\S\2 SV(cubed) 53.9 ml SI(cubed) 23.5 ml/m\S\2 asc Aorta Diam 3.2 cm LVAd ap4 38.3 cm\S\2 LVLd ap4 9.3 cm EDV(MOD-sp4) 131.3 ml EDV(sp4-el) 133.7 ml LVAs ap4 23.5 cm\S\2 LVLs ap4 7.9 cm ESV(MOD-sp4) 58.4 ml ESV(sp4-el) 59.8 ml EF(MOD-sp4) 55.5 % EF(sp4-el) 55.3 % LVAd ap2 33.9 cm\S\2 LVLd ap2 9.3 cm EDV(MOD-sp2) 105.2 ml EDV(sp2-el) 105.3 ml LVAs ap2 19.9 cm\S\2 LVLs ap2 7.6 cm ESV(MOD-sp2) 43.1 ml ESV(sp2-el) 44.2 ml EF(MOD-sp2) 59.0 % EF(sp2-el) 58.0 % LVLd %diff -0.73 % EDV(MOD-bp) 117.6 ml LVLs %diff -3.46 % ESV(MOD-bp) 51.0 ml EF(MOD-bp) 56.7 % SV(MOD-sp4) 72.9 ml SI(MOD-sp4) 31.8 ml/m\S\2 SV(MOD-sp2) 62.1 ml SI(MOD-sp2) 27.1 ml/m\S\2 SV(MOD-bp) 66.7 ml SI(MOD-bp) 29.1 ml/m\S\2 SV(sp4-el) 74.0 ml SI(sp4-el) 32.3 ml/m\S\2 SV(sp2-el) 61.0 ml SI(sp2-el) 26.6 ml/m\S\2 Doppler Measurements and Calculations MV E max christina 81.6 cm/sec MV A max christina 64.4 cm/sec MV E/A 1.3 MV dec time 0.29 sec Ao V2 max 128.1 cm/sec Ao max PG 6.6 mmHg Ao max PG (full) 2.9 mmHg LV V1 max PG 3.7 mmHg LV V1 max 96.1 cm/sec MR max christina 546.6 cm/sec MR max PG 119.5 mmHg PA V2 max 94.4 cm/sec PA max PG 3.6 mmHg TR max christina 240.1 cm/sec
--- NOTE | 2016-08-11 12:13 | Progress Note ---
Progress Note Date of Service Aug 11, 2016. Progress Note Full EP consult dictated; pt known to me from the office. Recommend stopping sotalol and doing stronger AVN blockers. Add verapamil in addition to Toprol.
[2016-08-11] MEDS: WARFARIN SOD 5 MG TAB PO SCH (15:49)
--- NOTE | 2016-08-11 16:50 | Cardiology Consultation ---
Cardiology Consultation Date of Consultation: Aug 11, 2016 History of Present Illness Patient is a 60 year old female seen in cardiology consultation per the request of Dr. Shoemaker for the evaluation of palpitations. The patient is well-known to our cardiology service and had recently been discharged a few days ago on . I had seen her cardiology consultation on 08/04/16 for subjective palpitations. Telemetry findings were suggestive of atrial tachycardia as well as sinus tachycardia. She presented been placed on metoprolol and the dose had at one point been escalated to 100 mg twice a day in May 2016 but the patient did not tolerate this due to side effects of fatigue and therefore the dose was reduced. She had been transitioned to sotalol 80 mg twice a day. The dose is limited due to a mild QT interval prolongation of the 480 ms range and therefore low- dose metoprolol was added to supplement the sotalol. The patient states that on the day of discharge she felt well and she felt well the next day. The day after that she did some errands and afterward felt very fatigued. On the day prior to her repeat presentation to the hospital she had subjective recurrent palpitations while reading a book and going to sleep. On her home pulse oximetry monitor her heart rate was 150 beat per minute range and that was similar to what was noted on EKG on arrival yesterday with sinus tachycardia 115 beat per minute range. The patient rested well today. She was feeling subjectively improved. Currently heart rate is in the 90 be per minute range on telemetry and appears to be sinus rhythm. History PAST MEDICAL HISTORY: 1. Type 2 diabetes mellitus 2. Fibromyalgia 3. Depression 4. Paroxysmal supraventricular tachycardia, likely atrial tachycardia 5. Breast carcinoma, BRCA positive 6. Reactive airway disease 7. Dyslipidemia 8. Raynaud's phenomenon 9. Lymphedema 10. Migraine headache syndrome 11. Obstructive sleep apnea PAST SURGICAL HISTORY: 1. Ureter stent placements 2. Cholecystectomy 3. Mastectomy 4. A-port placement FAMILY HISTORY: Negative for premature CAD or sudden cardiac SOCIAL HISTORY: Former tobacco use. She is and lives with her family Review Of Systems See above for pertinent positives & negatives. A total of 10 systems reviewed and were otherwise negative. Allergies Coded Allergies: Codeine (Verified Allergy, Intermediate, ITCHY AND RASH, 08/10/16) Gabapentin (Verified Allergy, Intermediate, swelling, 08/10/16) Potassium Chloride (Verified Allergy, Intermediate, ITCHY AND RASH, ) SPOKE W PATIENT - ALLERGIC TO *BRAND* KLOR-CON ONLY. TAKES GENERIC OUTPATIENT. CALLED OUTPATIENT PHARMACY - CONFIRMED NDC OF POTASSIUM CHLORIDE 10 [place] [id number] Amitriptyline (Verified Allergy, Mild, SWELLING, 08/10/16) Sitagliptin (Verified Allergy, Mild, Swelling , 08/10/16) Doxepin (Verified Allergy, Unknown, SWELLING, 08/10/16) Hyoscyamine (Verified Allergy, Unknown, SWELLING, 08/10/16) Tricyclic Antidepressants (Verified Allergy, Unknown, SWELLING, 08/10/16) Adhesives (Verified Adverse Reaction, Intermediate, Tape - rash/itching, ) Erythromycin (Verified Adverse Reaction, Intermediate, REPAIR COIL WINDER STOMACH CRAMPS, 08/10/16) Medications Reported Home Medications Medications Dose Route/Sig Max Daily Dose Days Date Category Dose Instructions Roxicodone Ir (Oxycodone HCl) 5 Mg Tab 5 Mg PO UD 08/10/16 Rx Take 5 mg by mouth at 5 pm and 10 pm Potassium Chloride ER (Potassium Chloride) 20 Meq Tab 20 Meq PO BID 08/10/16 Reported Sotalol HCl 80 Mg Tab 80 Mg PO BID 30 08/08/16 Rx Lopressor (Metoprolol Tartrate) 25 Mg Tab 25 Mg PO BID 30 08/08/16 Rx Coumadin (Warfarin Sod) 5 Mg Tab 10 Mg PO DAILY@16 10 08/08/16 Rx Cymbalta (Duloxetine HCl) 30 Mg Cap 60 Mg PO BID 30 08/08/16 Rx Singulair (Montelukast Sodium) 10 Mg Tab 10 Mg PO HS 08/04/16 Reported Dulcolax (Bisacodyl) 5 Mg Tab 1 Tab PO DAILY PRN 1 05/21/16 Reported Nasacort Allergy 24Hr Chi (Triamcinolone Acetonide (Nasal) 55 Mcg/Act Spr 1 [place] MISHEL HS PRN 05/21/16 Reported Foltanx (L-Methylfolate W/ Vitamin B6-V) 1 Tab Tab 1 Tab PO BID 05/21/16 Reported Spiriva Handihaler (Tiotropium [place]) 30 Puff/540 Mcg Aerp 1 Cap INH HS 05/04/16 Reported Slow-Mag Tab (Magnesium Chloride) 64 Mg Tabcr 2 Tabs PO QPM 05/04/16 Reported Zantac (Ranitidine HCl) 150 Mg Tab 1 Tab PO BID 30 05/20/15 Reported Slow-Mag Tab (Magnesium Chloride) 64 Mg Tabcr 3 Tab PO QAM 05/20/15 Reported Requip (Ropinirole HCl) 0.5 Mg Tab 0.5 Mg PO HS PRN 05/20/15 Reported Glucophage (Metformin Hcl) 1,000 Mg Tab 1,000 Mg PO BID 10/02/14 Reported Multi-Vitamin Daily (Multiple Vitamin) 1 Tab Tab 1 Tab PO QPM 05/15/14 Reported Levalbuterol (Levalbuterol Hcl) 1.25 Mg/0.5 Ml Neb 1.25 Mg INH Q4 PRN 05/15/14 Reported Lipitor (Atorvastatin) 20 Mg Tab 20 Mg PO HS 05/15/14 Reported Tylenol Arthitis Ext Rel (Acetaminophen) 650 Mg Ertab 1,300 Mg PO QPM PRN 11/26/13 Reported Glimepiride 4 Mg Tab 4 Mg PO QAM 11/26/13 Reported Imodium (Loperamide HCl) 2 Mg Cap 4 Mg PO UD PRN 03/15/12 Reported Advair Diskus 250/50 60 Dose (Fluticasone Prop/Salmeterol) 1 Ea Aerp 1 Puff INH BID 03/15/12 Reported Physical Exam Vital Signs (Last 8hrs): Last 8 Hrs Date Time Temp Pulse Resp B/P (MAP) Pulse Ox O2 Delivery O2 Flow Rate FiO2 08/11/16 15:42 37.0 94 16 139/87 (104) 93 08/11/16 12:00 Room Air CPAP 08/11/16 11:30 36.5 78 16 145/76 (99) 97 BiPAP General Appearance: Alert and Oriented x3. NAD. Head: Normocephalic Atraumatic. Eyes: PERRLA, EOMI, conjunctiva and sclera clear Neck: Supple. No carotid bruits noted. No JVD. No HJD. Respiratory: Breath sounds clear to auscultation bilaterally. No w/r/r. Cardiovascular: Reg rate and rhythm. S1 and S2 noted. No murmurs, rubs, gallops. PMI non displace. Abdomen: Normal bowel sounds, soft nontender. no abdominal bruits. Extremities: No edema, no clubbing or cyanosis. distal pulses 2/4 bilaterally. Neuro: No focal deficits. Psychiatric: Normal affect. Data Last Resulted 08/10/16 16:36 Last Resulted 08/11/16 07:38 Past 24 Hours Test 08/11/16 07:38 Range/Units Prothromb Time International Ratio 1.8 H 0.9-1.1 Prothrombin Time 19.8 H 9.0-12.0 SECONDS EKG as outlined above. Echocardiogram performed today reviewed independently reveals normal left ventricle systolic function with an ejection fraction of 60-65%. Mild mitral regurgitation is present. Grade 1 diastolic dysfunction is present. Assessment & Plan Impression: 60-year-old female 1. palpitations with telemetry findings of sinus tachycardia, perhaps a component of increased cardiac awareness. I do not see any evidence of recurrent atrial tachycardia at present. 2. Recently noted CT findings of chronic pulmonary emboli Plan: Continue coumadin. DC sotalol as it has not been effective. Add Verapamil to metoprolol. [facility]
[2016-08-11] MEDS: OXYCODONE HCL IR 5 MG TAB (IMMEDIATE RELEASE) PO SCH ×2 (17:08→22:11)
--- NOTE | 2016-08-11 17:13 | Progress Note ---
Internal Med Progress Note Date of Service: Aug 11, 2016. Provider Documentation: SUBJECTIVE: resting comfortably no palpitations no chest pain or sob afebrile eating ok no complaints OBJECTIVE: Vital Signs-as noted below Exam: General-alert and awake. Not in distress ENT-Normal hearing Neck-no neck masses, supple Lungs-cta b/l no wheezing or crackles Heart-s1 and s2 heard regular , no murmurs Abdomen-soft bowel sounds present non tender no distension Extremities- no edema present no erythema Neuro-alert and awake moves extremities Lab data as noted below. ASSESSMENT & PLAN: RECURRENT ATRIAL TACHYCARDIA : seen by cardiology and sotalol was stopped as it was not effective verapamil added to toprol xl will monitor CHRONIC SMALL B/L PE As per H and P:Prior hx of DVT (treated x 6 months some 10 years ago) , Hx of breast carcinoma, already on coumadin 1 mg for port prophylaxis, discussed with cardiology- finally decided to treat her given her risk of thromboembolic disease. This was during her last admission on Coumadin 'inr 1.8 will monitor ANXIETY/DEPRESSION Last admission, duloxetin was increased to 60 mg PO BID per psychiatry. seems stable HX OF BREAST CARCINOMA S/P SURGERY/RADIATION/CHEMOTHERAPY In remission DM-2 oral medications on hold., well controlled as of recent HgA1C (6. 8 as of May 2016) on iss will monitor DVT PROPHYLAXIS Coumadin/Lovenox sq prophylactic till INR therapeutic Disposition Top be determined Vital Signs: Date Time Temp Pulse Resp B/P (MAP) Pulse Ox O2 Delivery O2 Flow Rate FiO2 08/11/16 15:42 37.0 94 16 139/87 (104) 93 08/11/16 12:00 Room Air CPAP 08/11/16 11:30 36.5 78 16 145/76 (99) 97 BiPAP 08/11/16 08:00 Room Air CPAP 08/11/16 04:05 Room Air 08/11/16 04:00 37.0 80 18 113/72 (86) 97 CPAP 08/11/16 00:05 97 Room Air 08/10/16 23:22 36.8 116 18 163/82 (109) 95 Room Air 08/10/16 20:00 97 Room Air CPAP 08/10/16 19:00 36.9 106 18 139/80 (99) 97 Room Air 08/10/16 19:00 36.8 116 18 163/82 97 Room Air 08/10/16 18:30 106 15 146/92 95 Room Air Lab Results: Results Past 24 Hours Test 08/10/16 19:53 08/11/16 06:59 08/11/16 07:38 08/11/16 11:25 Range/Units Bedside Glucose 91 134 145 70-90 mg/dl Prothrombin Time 19.8 9.0-12.0 SECONDS Prothromb Time International Ratio 1.8 0.9-1.1 Sodium Level 140 136-145 mmol/L Potassium Level 4.1 3.5-5.1 mmol/L Chloride Level 106 98-107 mmol/L Carbon Dioxide Level 27 21-32 mmol/L Anion Gap 7.0 3-11 mmol/L Blood Urea Nitrogen 16 7-18 mg/dl Creatinine 0.96 0.60-1.20 mg/dl Est Creatinine Clear Calc Drug Dose 86.6 ml/min Estimated GFR () 75.0 Estimated GFR (Non- 64.7 BUN/Creatinine Ratio 16.5 10-20 Random Glucose 121 70-99 mg/dl Calcium Level 9.1 8.5-10.1 mg/dl Magnesium Level 2.1 1.8-2.4 mg/dl Test 08/11/16 16:02 Range/Units Bedside Glucose 139 70-90 mg/dl
[2016-08-11] MEDS: TIOTROPIUM BROMIDE 5 PUFF/90 MCG INH INH SCH (20:49)
[2016-08-11] MEDS: ATORVASTATIN 20 MG TAB PO SCH (20:51)
[2016-08-11] MEDS: MULTIVITAMIN TAB PO SCH (20:52)
[2016-08-11] MEDS: MONTELUKAST SOD 10 MG TAB PO SCH (20:52)
[2016-08-11] MEDS: METOPROLOL SUCC 25MG EXT REL TAB PO SCH (20:53)
[2016-08-11] MEDS: VERAPAMIL HCL 120 MG TABCR PO SCH (22:11)
--- NOTE | 2016-08-11 22:56 | CARDIOLOGY CONSULTATION ---
DATE OF CONSULTATION: 08/11/2016 ELECTROPHYSIOLOGY CONSULT CONSULTING PHYSICIAN: Dr. Sanchez. REASON FOR CONSULT: PAT. HISTORY OF PRESENT ILLNESS: This is a 60-year-old female known to me from the office due to paroxysmal atrial tachycardia. We have been trying medicines. She has had some issues with metoprolol and it was lowered. She then recently was admitted to [facility] on 08/04/2016 secondary to some chest pain and found to be back in her atrial tachycardia. At that time, she had a PE CAT scan of the chest and was diagnosed with pulmonary emboli. During this admission last week, we actually started her on sotalol in hopes that this might help her atrial tachycardia and she was discharged home; however, she returned yesterday because of feeling palpitations again and she measured her heart rate to be 110, so she came to the Emergency Room. She denies any nausea, vomiting, chest pain, lightheadedness, dizziness, but does have generalized fatigue and some shortness of breath here and there in addition to the palpitations. PAST MEDICAL HISTORY: Diabetes, fibromyalgia, depression, paroxysmal atrial tachycardia, history of breast carcinoma BRCA positive, reactive airway disease, hyperlipidemia, Raynaud's phenomena, lymphedema, migraine headaches, obstructive sleep apnea. PAST SURGICAL HISTORY: Ureter stent placed, cholecystectomy, mastectomy, and A-port placed. FAMILY HISTORY: Negative for premature coronary artery disease or sudden cardiac . SOCIAL HISTORY: She is a former tobacco user. , lives with her family. REVIEW OF SYSTEMS: All other 10-point review of systems are essentially negative. See HPI for pertinent details. ALLERGIES: TO CODEINE, ERYTHROMYCIN, GABAPENTIN, POTASSIUM, ADHESIVE, HYOSCYAMINE, DOXEPIN, SITAGLIPTIN, AMITRIPTYLINE. HOME MEDICATIONS: Singulair, oxycodone, Dulcolax, Nasacort, vitamin B6, metoprolol, albuterol, magnesium, Zantac, Requip, Cymbalta, Glucophage, multivitamin, Lipitor, Imodium, Advair, Coumadin. PHYSICAL EXAMINATION: VITAL SIGNS: Temperature 36 degrees, heart rate 78, respirations 16, blood pressure 145/76, oxygen saturation is 97%. GENERAL: She is awake, alert and oriented x3, in no acute distress, sitting up in the chair. HEENT: Normocephalic, atraumatic. Extraocular motion intact. Sclerae nonicteric. Mucous membranes moist. NECK: Supple. No JVD. Carotid upstrokes normal. CARDIOVASCULAR: Normal S1, S2. Rate fairly normal, maybe mildly tachycardic. No murmur appreciated. PULMONARY: Clear to auscultation bilaterally. No wheezes, rales or rhonchi. ABDOMEN: Soft, obese. EXTREMITIES: No clubbing or cyanosis in bilateral fingers. No edema in bilateral lower extremities. NEUROLOGIC: Grossly intact. SKIN: Grossly intact. PERTINENT TESTING: Telemetry, currently she is sinus rhythm in the 70s and 80s. On admission, she was tachycardic in the one-teens, but it looked more sinus tach than her atrial tachycardia. EKG on admission looks to be sinus tachycardia, 107 beats per minute, QTc 467. This morning EKG was sinus rhythm at 73 beats per minute with QTc of 456. Echocardiogram done today, ejection fraction preserved at 60-65, mild mitral regurgitation, grade 1 diastolic dysfunction. LABORATORY STUDIES: Yesterday, hematology, WBC 7.74, hemoglobin 12, hematocrit 39, platelets 294. Chemistry: Sodium 140, potassium 4.1, chloride 106, carbon dioxide 27, BUN 16, creatinine 0.96, glucose 121, calcium 9.1, magnesium 2.1. INR today 1.8. IMPRESSION: 1. Paroxysmal atrial tachycardia. A trial of sotalol did not seem to do much, intolerant to very high doses of Toprol. 2. Diabetes. 3. History of breast cancer. 4. Recent evidence of multiple small pulmonary emboli, probably chronic, but started on Coumadin. 5. Hyperlipidemia. 6. Depression. 7. Fibromyalgia. 8. Lymphedema. 9. Migraines. 10. Obstructive sleep apnea. PLAN: At this point, I would recommend stopping the sotalol and trying in addition to her low-dose Toprol adding verapamil and maybe this will cause her less symptoms. It is difficult to say how symptomatic the medications and the atrial tachycardia really are as with her presenting symptoms of palpitations, she did not seem to be in her atrial tachycardia and the heart rate was significantly lower. I follow this patient in the office, I do not think that an ablation is going to be 100% successful in (1) getting rid of rhythm and definitely getting rid of all of her symptoms. I think her symptoms are more multifactorial. So in this case, less may be better and so avoiding any antiarrhythmic agents that could be more toxic is probably better. Monitor in the hospital for at least overnight. If she does okay, then hopefully we can discharge her home and I will see her in the office. SHAQUILLE
[2016-08-12 03:32] VITALS: BP 108/69; PULSE 85; TEMP 37; O2SAT 99
[2016-08-12 07:31] VITALS: BP 129/72; PULSE 80; TEMP 36.7; O2SAT 95
[2016-08-12 08:00] VITALS: O2SAT 95
[2016-08-12] MEDS: POTASSIUM CHLORIDE 20 MEQ TABCR PO SCH (08:13)
[2016-08-12] MEDS: RANITIDINE HCL 150 MG TAB PO SCH (08:13)
[2016-08-12] MEDS: MAGNESIUM CHLORIDE 64MG DELAYED REL TAB PO SCH (08:14)
[2016-08-12] MEDS: METOPROLOL SUCC 25MG EXT REL TAB PO SCH (08:14)
[2016-08-12] MEDS: FLUTICASONE/SALMETEROL 250/50 (ADVAIR) 14 PUFF/1 INHALER INH SCH (08:15)
[2016-08-12] MEDS: DULOXETINE (CYMBALTA) 30 MG CAP PO SCH (08:15)
[2016-08-12] MEDS: INSULIN ASPART 100 UNITS/ML 3 ML PEN SC SCH ×2 (08:28→13:00)
--- NOTE | 2016-08-12 08:43 | Progress Note ---
Progress Note Date of Service Aug 12, 2016. Progress Note pt tolerating metoprolol and verapamil telemetry heart rates look good. f/u with me as scheduled in 2 weeks
[2016-08-12] MEDS: VERAPAMIL HCL 120 MG TABCR PO SCH (08:52)
[2016-08-12 10:56] LABS: INR 2.6 (0.9-1.1)
[2016-08-12 11:08] VITALS: BP 140/78; PULSE 74; TEMP 36.5; O2SAT 95
--- NOTE | 2016-08-12 13:55 | Cardiology Follow-Up ---
Subjective General Date of Service: Aug 12, 2016. Chief Complaint: follow-up palpitations Pt evaluation today including: conversation w/ patient, physical exam History of Present Illness The patient is a 60 year old female seen in follow-up. She is feeling well. She is sitting up and reading in bed and feeling well. Telemetry reveals stable sinus rhythm in the 70-80 bpm range. EKG performed this morning 08/12/16 interviewed independently revealed sinus rhythm at 75 bpm with stable corrected QT interval 460 ms. Allergies Coded Allergies: Codeine (Verified Allergy, Intermediate, ITCHY AND RASH, 08/10/16) Gabapentin (Verified Allergy, Intermediate, swelling, 08/10/16) Potassium Chloride (Verified Allergy, Intermediate, ITCHY AND RASH, ) SPOKE W PATIENT - ALLERGIC TO *BRAND* [facility] ONLY. TAKES GENERIC OUTPATIENT. CALLED OUTPATIENT PHARMACY - CONFIRMED [facility] OF POTASSIUM CHLORIDE 10 [place] [id number] Amitriptyline (Verified Allergy, Mild, SWELLING, 08/10/16) Sitagliptin (Verified Allergy, Mild, Swelling , 08/10/16) Doxepin (Verified Allergy, Unknown, SWELLING, 08/10/16) Hyoscyamine (Verified Allergy, Unknown, SWELLING, 08/10/16) Tricyclic Antidepressants (Verified Allergy, Unknown, SWELLING, 08/10/16) Adhesives (Verified Adverse Reaction, Intermediate, Tape - rash/itching, ) Erythromycin (Verified Adverse Reaction, Intermediate, INFORMATION CODER STOMACH CRAMPS, 08/10/16) Social History Smoking Status: Never Smoker Hx Tobacco Use In Past Year?: No Hx Alcohol Use - Type And Amou: No Hx Substance Use - Type And Am: No Problem List Medical Problems: (1) Calculus of proximal right ureter Status: Acute (2) Chronic pulmonary embolism Status: Acute (3) Precordial chest pain Status: Acute (4) Tachycardia Status: Acute Physical Exam Vital Signs Last Vital Signs Documentation Date Time Temp Pulse Resp B/P (MAP) Pulse Ox O2 Delivery O2 Flow Rate FiO2 08/12/16 12:00 Room Air 08/12/16 11:08 36.5 74 20 140/78 (98) 95 Physical Exam Constitutional: Level of Distress: NAD Neck: supple Lungs: Auscultation: no wheezing, no rales/crackles, no rhonchi Cardiovascular: Heart Auscultation: RRR, no murmurs, no rubs, no gallops Extremities: no edema Assessment and Plan Assessment and Plan Impression: 60-year-old female 1. Palpitations, presentation of this hospital stay seemed to correlate with sinus tachycardia and increased cardiac awareness although she has had paroxysmal supraventricular tachycardia/atrial tachycardia in the past. 2. Recent CT evidence of chronic pulmonary embolism 3. Past history of breast carcinoma Plan: Sotalol has been discontinued. Patient stable for discharge from my standpoint on metoprolol succinate 25 mg twice a day and verapamil extended-release 120 mg twice a day. Keep outpatient follow-up appointment as planned with Dr. Shaw in 2 weeks. Laboratory Results Last 24 Hours Test 08/11/16 16:02 08/11/16 20:19 08/12/16 07:18 08/12/16 10:37 Bedside Glucose 139 mg/dl 109 mg/dl 138 mg/dl Prothrombin Time 29.0 SECONDS Prothromb Time International Ratio 2.6 Test 08/12/16 11:16 Bedside Glucose 148 mg/dl
[2016-08-12] MEDS ORDERED: VERA120T65 PO (14:48)
--- NOTE | 2016-08-12 14:50 | Discharge Instructions ---
Discharge Instructions Date of Service Aug 12, 2016. Admission Reason for Admission: Tachycardia Discharge Discharge Diagnosis / Problem: atrial tachycardia Discharge Goals Goal(s): Decrease discomfort, Improve function Activity Recommendations Activity Limitations: resume your previous activity . Instructions / Follow-Up Instructions / Follow-Up FOLLOWUP WITH FAMILY DOCTOR Hortensia Orozco ON August AT 11:05AM FOLLOWUP WITH CARDIOLOGY SCHEDULED. FOLLOWUP WITH COUMADIN CLINIC . Current Hospital Diet Patient's current hospital diet: Diabetes Type 2 Diet, AHA Diet (Heart Healthy) Discharge Diet Recommended Diet: AHA Diet (Heart Healthy), Diabetes Type 2 Diet Pending Studies Studies pending at discharge: no Medical Emergencies . Who to Call and When: Medical Emergencies: If at any time you feel your situation is an emergency, please call 911 immediately. . Non-Emergent Contact Non-Emergency issues call your: Primary Care Provider . . "Provider Documentation" section prepared by Branden Hedrick. . VTE Core Measure Inpt VTE Proph given/why not?: Warfarin (Coumadin)
[2016-08-12 14:57] VITALS: BP 137/71; PULSE 81; TEMP 37; O2SAT 95
[2016-08-12] MEDS: ACETAMINOPHEN 325 MG TAB PO PRN (15:23)
[2016-08-12] MEDS: WARFARIN SOD 5 MG TAB PO SCH (15:25)
[2016-08-12 15:31] VITALS: BP 137/71; PULSE 81; TEMP 37; O2SAT 95
--- NOTE | 2016-08-12 19:03 | Progress Note ---
Internal Med Progress Note Date of Service: Aug 12, 2016. Provider Documentation: SUBJECTIVE: resting comfortably no heart flutter no sob or chest pain ok to go home OBJECTIVE: Vital Signs-as noted below Exam: General-alert and awake. Not in distress ENT-Normal hearing Neck-no neck masses, supple Lungs-cta b/l no wheezing or crackles Heart-s1 and s2 heard regular , no murmurs Abdomen-soft bowel sounds present non tender no distension Extremities- no edema present no erythema Neuro-alert and awake moves extremities Lab data as noted below. ASSESSMENT & PLAN: RECURRENT ATRIAL TACHYCARDIA : seen by cardiology and sotalol was stopped as it was not effective verapamil added to toprol xl stable f/u with cardiology CHRONIC SMALL B/L PE As per H and P:Prior hx of DVT (treated x 6 months some 10 years ago) , Hx of breast carcinoma, already on coumadin 1 mg for port prophylaxis, discussed with cardiology- finally decided to treat her given her risk of thromboembolic disease. This was during her last admission on Coumadin 'inr 2.6 f.u with Coumadin clinic ANXIETY/DEPRESSION Last admission, duloxetin was increased to 60 mg PO BID per psychiatry. seems stable HX OF BREAST CARCINOMA S/P SURGERY/RADIATION/CHEMOTHERAPY In remission DM-2 oral medications on hold., well controlled as of recent HgA1C (6. 8 as of May 2016) on iss d/c on home meds discharged home Vital Signs: Date Time Temp Pulse Resp B/P (MAP) Pulse Ox O2 Delivery O2 Flow Rate FiO2 08/12/16 15:31 37.0 81 18 95 Room Air 08/12/16 14:57 37.0 81 18 137/71 (93) 95 Room Air 08/12/16 12:00 Room Air 08/12/16 11:08 36.5 74 20 140/78 (98) 95 Room Air 08/12/16 08:00 95 Room Air 08/12/16 07:31 36.7 80 20 129/72 (91) 95 Room Air 08/12/16 04:05 Room Air 08/12/16 03:32 37.0 85 18 108/69 (82) 99 Room Air 08/12/16 00:05 Room Air 08/11/16 23:03 37.0 85 18 102/64 (77) 97 Room Air 08/11/16 22:12 105 140/72 (94) 08/11/16 21:03 89 152/74 (100) 08/11/16 20:00 93 Room Air CPAP 08/11/16 19:20 36.9 81 18 149/70 (96) 94 Room Air Lab Results: Results Past 24 Hours Test 08/11/16 20:19 08/12/16 07:18 08/12/16 10:37 08/12/16 11:16 Range/Units Bedside Glucose 109 138 148 70-90 mg/dl Prothrombin Time 29.0 9.0-12.0 SECONDS Prothromb Time International Ratio 2.6 0.9-1.1
--- NOTE | 2016-08-12 19:12 | Discharge Summary ---
Discharge Summary Date of Service Aug 12, 2016. Discharge Summary Admission Date: Aug 10, 2016 at 17:40 Discharge Date: Aug 12, 2016 Discharge Disposition: Home Principal Diagnosis: ATRIAL TACHYCARDIA Secondary Diagnoses/Problems: (1) Asthma Status: Chronic (2) Breast cancer Permanent Comment: Abnormal left breast mammogram 07/24/2010 Ultrasound-guided biopsy with finding of invasive adenocarcinoma Estrogen receptor negative, progesterone receptor negative, HER-2/mario negative Family history with genetic testing positive for BRCA1 mutation Status post bilateral mastectomies left breast stage pT3 pN2a M0 Immediate breast reconstruction with bilateral tissue expanders Removal of left tissue manager fleet due to infection November 2010 Removal of right breast tissue manager fleet due to infection December 2010 Status post chemotherapy with TAC Status post completion of radiation therapy 09/15/2011 received 6120 cGy Status: Resolved (3) Chronic bilateral pulmonary embolism Status: Chronic (4) Degeneration of cervical intervertebral disc Status: Chronic (5) Depressive disorder Status: Chronic (6) Diabetes mellitus, type II Status: Chronic (7) DVT (deep venous thrombosis) Status: Chronic (8) Dyslipidemia Status: Chronic (9) Fibromyalgia Status: Chronic (10) Gastroesophageal reflux disease Status: Chronic (11) History of breast cancer Status: Chronic (12) History of DVT (deep vein thrombosis) Status: Chronic (13) Hypertension Status: Chronic (14) Lymphedema Status: Chronic (15) Migraine headache Status: Chronic (16) Obstructive sleep apnea syndrome Status: Chronic (17) PSVT (paroxysmal supraventricular tachycardia) Status: Chronic (18) Restless legs syndrome Status: Chronic (19) Right ureteral calculus Status: Resolved (20) Sleep apnea Status: Chronic Procedures: ECHO: The left ventricular wall motion is normal. * Ejection Fraction = 60-65%. * There is mild mitral regurgitation. * Grade I diastolic dysfunction, (abnormal relaxation pattern). Consultations: CARDIOLOGY Medication Reconciliation New Medications: Verapamil HCl (Verapamil HCl ER) 120 Mg Tabcr 120 MG PO BID, #60 2 Refills Continued Medications: Acetaminophen (Tylenol Arthitis Ext Rel) 650 Mg Ertab 1300 MG PO QPM PRN for Headache or Pain, CAP Atorvastatin (Lipitor) 20 Mg Tab 20 MG PO HS, TAB Bisacodyl (Dulcolax) 5 Mg Tab 1 TAB PO DAILY PRN for Constipation for 1 Day, #2 TAB Duloxetine HCl (Cymbalta) 30 Mg Cap 60 MG PO BID for 30 Days, #60 CAP 2 Refills Fluticasone Prop/Salmeterol (Advair Diskus 250/50 60 Dose) 1 Ea Aerp 1 PUFF INH BID, INHALER Glimepiride (Glimepiride) 4 Mg Tab 4 MG PO QAM L-Methylfolate W/ Vitamin B6-V (Foltanx) 1 Tab Tab 1 TAB PO BID Levalbuterol Hcl (Levalbuterol) 1.25 Mg/0.5 Ml Neb 1.25 MG INH Q4 PRN for Wheezing Loperamide Hcl (Imodium) 2 Mg Cap 4 MG PO UD PRN for Diarrhea, CAP Magnesium Chloride (Slow-Mag Tab) 64 Mg Tabcr 3 TAB PO QAM, TAB Magnesium Chloride (Slow-Mag Tab) 64 Mg Tabcr 2 TABS PO QPM, TAB Metformin Hcl (Glucophage) 1,000 Mg Tab 1000 MG PO BID, TAB Metoprolol Tartrate (Lopressor) 25 Mg Tab 25 MG PO BID for 30 Days, #60 TAB Montelukast Sodium (Singulair) 10 Mg Tab 10 MG PO HS, TAB Multiple Vitamin (Multi-Vitamin Daily) 1 Tab Tab 1 TAB PO QPM Oxycodone Ir (Roxicodone Ir) 5 Mg Tab 5 MG PO UD, #20 TAB Take 5 mg by mouth at 5 pm and 10 pm Potassium Chloride (Potassium Chloride ER) 20 Meq Tab 20 MEQ PO BID Ranitidine (Zantac) 150 Mg Tab 1 TAB PO BID for 30 Days, #60 TAB 3 Refills Ropinirole (Requip) 0.5 Mg Tab 0.5 MG PO HS PRN for restless legs, TAB Tiotropium [place] (Spiriva Handihaler) 30 Puff/540 Mcg Aerp 1 CAP INH HS, INHALER Triamcinolone Acetonide (Nasal (Nasacort Allergy 24Hr Chi) 55 Mcg/Act Spr 1 SPRAY MISHEL HS PRN for Nasal Congestion Warfarin Sod (Coumadin) 5 Mg Tab 10 MG PO DAILY@16 for 10 Days, #20 TAB Discontinued Medications: Sotalol HCl (Sotalol HCl) 80 Mg Tab 80 MG PO BID for 30 Days, #60 TAB Admission Information HPI (per Admitting provider): This is a 60 y/o female with PMH of paroxysmal atrial tachycardia, chronic small bilateral PE, anxiety, depression, hx breast CA s/p surgery, radiation, chemo, DM type 2, and other problems listed below who presents to the ED for palpitations. Patient was recently admitted to [facility] from August 05-2016 for recurrent symptomatic atrial tachycardia, chest pain- acute VT ruled out, chronic small bilateral PE. On that admission she was evaluated by cardiology, started on sotalol 80 mg BID, and metoprolol was decreased to 25 mg BID. She was previously on Coumadin 1 mg daily for port prophylaxis but changed to therapeutic dosing (INR goal 2-3). Patient states she as feeling better after discharge, then around midnight last night while lying down developed palpitations with her HR measured at home up to 110s at rest. She states HR increased to 130s with ambulating a few steps. She reports associated fatigue and lightheadedness. This morning she had chest tightness in a band distribution while at rest. She states chest discomfort worked up on last admission was similar but today's discomfort was less severe. Pt reports chronic IBARRA unchanged from baseline. She was feeling sweaty/ flushed in the ER. Currently she feels better. Has chronic bilat LE pain attributed to neuropathy and chronic lymphedema- no change from basleine. She denies URI symptoms, cough , SOB at rest, orthopnea, syncope, abdominal pain, N/V/D, urinary change, abnormal bleeding. Pt has been seen by Dr. Shaw with plan for possible ablation. Physical Exam (per Admitting): General Appearance: no apparent distress, + obese, + pertinent finding ( alert 60 year old female, lying in bed, no distress) Head: normocephalic, atraumatic Eyes: normal inspection, PERRL, sclerae normal ENT: hearing grossly normal, pharynx normal Neck: supple, no JVD, trachea midline Respiratory/Chest: chest non-tender, lungs clear, normal breath sounds, no respiratory distress, no accessory muscle use Cardiovascular: no murmur, normal peripheral pulses, + tachycardia (regular rhythm, rate 110's) Abdomen/GI: normal bowel sounds, non tender, soft Extremities/Musculoskelatal: no pedal edema, + pertinent finding (mild calf tenderness bilat- chronic per patient) Neurologic/Psych: alert, normal mood/affect, oriented x 3, + pertinent finding (no focal deficit on gross examination) Skin: normal color, warm/dry Hospital Course RECURRENT ATRIAL TACHYCARDIA : seen by cardiology and sotalol was stopped as it was not effective verapamil added to toprol xl stable f/u with cardiology CHRONIC SMALL B/L PE As per H and P:Prior hx of DVT (treated x 6 months some 10 years ago) , Hx of breast carcinoma, already on coumadin 1 mg for port prophylaxis, discussed with cardiology- finally decided to treat her given her risk of thromboembolic disease. This was during her last admission on Coumadin 'inr 2.6 f.u with Coumadin clinic ANXIETY/DEPRESSION Last admission, duloxetin was increased to 60 mg PO BID per psychiatry. seems stable HX OF BREAST CARCINOMA S/P SURGERY/RADIATION/CHEMOTHERAPY In remission DM-2 oral medications on hold., well controlled as of recent HgA1C (6. 8 as of May 2016) on iss d/c on home meds discharged home Total time spent on discharge = 35MINUTES This includes examination of the patient, discharge planning, medication reconciliation, and communication with other providers. Discharge Instructions Discharge Instructions Date of Service Aug 12, 2016. Admission Reason for Admission: Tachycardia Discharge Discharge Diagnosis / Problem: atrial tachycardia Discharge Goals Goal(s): Decrease discomfort, Improve function Activity Recommendations Activity Limitations: resume your previous activity . Instructions / Follow-Up Instructions / Follow-Up FOLLOWUP WITH FAMILY DOCTOR Hortensia Orozco ON August AT 11:05AM FOLLOWUP WITH CARDIOLOGY SCHEDULED. FOLLOWUP WITH COUMADIN CLINIC . Current Hospital Diet Patient's current hospital diet: Diabetes Type 2 Diet, AHA Diet (Heart Healthy) Discharge Diet Recommended Diet: AHA Diet (Heart Healthy), Diabetes Type 2 Diet Pending Studies Studies pending at discharge: no Medical Emergencies . Who to Call and When: Medical Emergencies: If at any time you feel your situation is an emergency, please call 911 immediately. . Non-Emergent Contact Non-Emergency issues call your: Primary Care Provider . . "Provider Documentation" section prepared by Branden Hedrick. . VTE Core Measure Inpt VTE Proph given/why not?: Warfarin (Coumadin)
== END 2016-08-12 16:08 | disposition home or self-care (01) ==
LOC: C.EDB 15:39 → C.MED 17:40 → ENRESERV 18:29
PROVIDERS: ADMIT Internal Medicine; ATTEND Internal Medicine
DX: I47.1 Supraventricular tachycardia (principal); I10 Essential (primary) hypertension; E11.9 Type 2 diabetes mellitus without complications; J45.909 Unspecified asthma, uncomplicated; G47.33 Obstructive sleep apnea (adult) (pediatric); I27.82 Chronic pulmonary embolism; E78.5 Hyperlipidemia, unspecified; F32.9 Major depressive disorder, single episode, unspecified; M50.30 Other cervical disc degeneration, unspecified cervical region; M79.7 Fibromyalgia; I82.509 Chronic embolism and thrombosis of unspecified deep veins of unspecified lower extremity; Z86.718 Personal history of other venous thrombosis and embolism; Z85.3 Personal history of malignant neoplasm of breast; I89.0 Lymphedema, not elsewhere classified; K21.9 Gastro-esophageal reflux disease without esophagitis; G25.81 Restless legs syndrome; Z79.4 Long term (current) use of insulin; Z79.01 Long term (current) use of anticoagulants; Z79.899 Other long term (current) drug therapy

== ENCOUNTER → 2017-05-05 | Outpatient (CLI) | payer OTHER ==
[~2017-05-05] MED LIST changes: -BTP80 PO; +POTA-65 PO; -POTA20TA16 PO; +RANI150T85 PO; +VERA120T65 PO; -ZNTT/150 PO
--- NOTE | 2017-05-05 13:13 | DIAGNOSTIC IMAGING REPORT ---
CT SCAN OF THE ABDOMEN AND PELVIS WITHOUT CONTRAST CLINICAL HISTORY: N20.0 Nephrolithiasisno latex [id number] COMPARISON STUDY: 05/04/2016 TECHNIQUE: CT scan of the abdomen and pelvis was performed from the lung bases to the proximal femurs. Images are reviewed in the axial, sagittal, and coronal planes. IV contrast was not administered for this examination. A dose lowering technique was utilized adhering to the principles of ALARA. CT DOSE: 1521.08 mGy.cm FINDINGS: Lower chest: Ill-defined pleural-based groundglass opacities within the right lower lobe, are likely atelectatic. Liver: There is hepatic steatosis. No focal masses are visualized. The liver is mildly enlarged. Gallbladder: Surgically absent Spleen: Normal in size and attenuation. Pancreas: Unremarkable. Adrenal glands: Unremarkable. Kidneys: There is a 16 mm left renal cyst. There is a 31 mm right renal cyst. There is a 2 mm nonobstructing right renal calculus. No ureteral or bladder calculi are visualized. Bowel: There are no transition zones indicate bowel obstruction. There is no evidence of acute diverticulitis. There is no evidence of acute appendicitis. Peritoneum: There is no intraperitoneal free air or abdominal ascites. Vasculature: The abdominal aorta is normal in course and caliber. Adenopathy: None. Pelvic viscera: The bladder, and pelvic viscera are unremarkable. Skeletal structures: No destructive osseous lesions are seen. IMPRESSION: 1. Hepatic steatosis 2. 2 mm nonobstructing right renal calculus. No ureteral or bladder calculi identified 3. No acute inflammatory changes identified Electronically signed by: Filippo Jaime M.D. 05/05/2017 1:12 PM Dictated Date/Time: 05/05/2017 1:04 PM
== END | disposition home or self-care (01) ==
LOC: C.CTS 12:44
PROVIDERS: ATTEND Urology
DX: N20.0 Calculus of kidney (principal); K76.0 Fatty (change of) liver, not elsewhere classified

== ENCOUNTER 2017-05-17 23:42 | Observation (INO) | payer OTHER ==
[~2017-05-17] VITALS: Ht 165.1 cm; Wt 130.0 kg
[2017-05-17] MEDS ORDERED: SODIUM CHLORIDE 0.9% 1000ML 1,000 ML IV STA (23:57)
[2017-05-17] MEDS ORDERED: ASPIRIN 81 MG CHEW PO STA (23:57)
[2017-05-18 00:11] LABS: BASO % 0.5 %; BASO ABS # 0.04 K/uL (0-0.2); EOS % 0.9 %; EOS ABS # 0.08 K/uL (0-0.5); HEMATOCRIT 36.8 % (37-47); HEMOGLOBIN 11.9 g/dL (12.0-16.0); IG# 0.08 K/uL (0.00-0.02); LYMPH % 21.6 %; LYMPH ABS # 1.87 K/uL (1.2-3.4); MEAN CORPUSCULAR HEMOGLOBIN 29.8 pg (25-34); MEAN CORPUSCULAR HGB CONC 32.3 g/dl (32-36); MEAN PLATELET VOLUME 10.2 fL (7.4-10.4); MONO % 7.7 %; MONO ABS # 0.67 K/uL (0.11-0.59); NEUT % 68.4 %; NEUT ABS # 5.91 K/uL (1.4-6.5); NUCLEATED RED BLOOD CELL ABS 0.02 K/uL (0-0); PLATELET COUNT 310 K/uL (130-400); RED CELL DISTRIBUTION WIDTH CV 17.3 % (11.5-14.5); RED CELL DISTRIBUTION WIDTH SD 56.8 fL (36.4-46.3); WHITE BLOOD COUNT 8.65 K/uL (4.8-10.8)
[2017-05-18 00:32] LABS: INR 2.3 (0.9-1.1)
[2017-05-18 00:35] LABS: ALBUMIN 3.4 gm/dl (3.4-5.0); ALT/SGPT 36 U/L (12-78); AST/SGOT 17 U/L (15-37); BLOOD UREA NITROGEN 19 mg/dl (7-18); CALCIUM 9.4 mg/dl (8.5-10.1); CARBON DIOXIDE 26 mmol/L (21-32); CREATININE 1.07 mg/dl (0.60-1.20); GLUCOSE 223 mg/dl (70-99); POTASSIUM 3.5 mmol/L (3.5-5.1); SODIUM 138 mmol/L (136-145)
--- NOTE | 2017-05-18 00:35 | EMERGENCY ROOM VISIT NOTE ---
History Report prepared by Juan Antonio: Stephania Harris Under the Supervision of: Dr. Nimisha Humphries M.D. First contact with patient: 23:56 Chief Complaint: CHEST PAIN Stated Complaint: HEART PALPITATIONS, CHEST PAIN, SOB, LIGHT HEADED History of Present Illness The patient is a 61 year old female who presents to the Emergency Room with complaints of persistent chest pain that has been worsening for a few weeks. She reports that she has been experiencing shortness of breath, heart palpitations, and light headedness. The patient states a history of severe neuropathy in her feet and hands, restricted lymphs, emphysema, pulmonary embolisms, deep vein thrombosis, some kidney failure, kidney stones, diverticulosis that causes nausea, vomiting, and diarrhea. She reports that she currently takes Coumadin and has an indwelling port in place. The patient notes that her slitter scorer is Alberto Morales. Source of History: patient Onset: few weeks Position: chest Quality: other Timing: other (persistent) Associated Symptoms: + SOB Note: Associated symptoms include: heart palpitations and light headedness. Review of Systems See HPI for pertinent positives & negatives. A total of 10 systems reviewed and were otherwise negative. Past Medical & Surgical Medical Problems: (1) Asthma (2) Breast cancer (3) Chest pain (4) Chronic bilateral pulmonary embolism (5) Degeneration of cervical intervertebral disc (6) Depressive disorder (7) Diabetes mellitus, type II (8) DVT (deep venous thrombosis) (9) Dyslipidemia (10) Fibromyalgia (11) Gastroesophageal reflux disease (12) History of breast cancer (13) History of DVT (deep vein thrombosis) (14) Hypertension (15) Lymphedema (16) Migraine headache (17) Obstructive sleep apnea syndrome (18) PSVT (paroxysmal supraventricular tachycardia) (19) Restless legs syndrome (20) Right ureteral calculus (21) Sleep apnea (22) Ureteral calculus of right kidney transplant Surgical Problems: (1) H/O exploratory laparotomy (2) H/O foot surgery (3) H/O umbilical hernia repair (4) History of carpal tunnel surgery (5) History of hysterectomy (6) S/P breast reconstruction (7) Status post cholecystectomy (8) Status post partial mastectomy Family History FHx: cancer FHx: diabetes FHx: heart disease FHx: hypertension Social History Smoking Status: Never Smoker Alcohol Use: none Drug Use: none Marital Status: Housing Status: lives with significant other Occupation Status: retired Current/Historical Medications Scheduled Aspirin (Aspirin Chewable), 81 MG PO DAILY Atorvastatin (Lipitor), 20 MG PO HS Chlorthalidone (Hygroton), 12.5 MG PO QAM Duloxetine Hcl (Cymbalta), 60 MG PO BID Fluticasone Prop/Salmeterol (Advair Diskus 250/50 60 Dose), 1 PUFF INH BID Glimepiride (Glimepiride), 4 MG PO QAM Magnesium Chloride (Slow-Mag Tab), 2 TABS PO QPM Magnesium Chloride (Slow-Mag Tab), 3 TABS PO QAM Metformin Hcl (Glucophage), 1,000 MG PO BID Metoprolol Tartrate (Lopressor), 25 MG PO BID Montelukast Sodium (Singulair), 10 MG PO HS Oxycodone Ir (Roxicodone Ir), 5 MG PO BID Potassium Chloride (Potassium Chloride ER), 20 MEQ PO BID Potassium Citrate (Alkalinizer (Urocit-K 15), 3 TABS PO BID Ranitidine (Zantac), 1 TAB PO BID Tiotropium Temple (Spiriva Handihaler), 1 CAP INH HS Verapamil (Calan), 120 MG PO TID Warfarin Sodium (Coumadin), 5 MG PO DAILY Scheduled PRN Albuterol Hfa (Ventolin Hfa), 4 PUFFS INH Q4 PRN for SOB/Wheezing Ropinirole (Requip), 0.5 MG PO HS PRN for restless legs Allergies Coded Allergies: Codeine (Verified Allergy, Intermediate, ITCHY AND RASH, 05/18/17) Gabapentin (Verified Allergy, Intermediate, swelling, 05/18/17) Potassium Chloride (Verified Allergy, Intermediate, ITCHY AND RASH, ) SPOKE W PATIENT - ALLERGIC TO *BRAND* [facility] ONLY. TAKES GENERIC OUTPATIENT. CALLED OUTPATIENT PHARMACY - CONFIRMED [facility] OF POTASSIUM CHLORIDE 10 [place] [address]-42 Amitriptyline (Verified Allergy, Mild, SWELLING, 05/18/17) Sitagliptin (Verified Allergy, Mild, Swelling , 05/18/17) Doxepin (Verified Allergy, Unknown, SWELLING, 05/18/17) Hyoscyamine (Verified Allergy, Unknown, SWELLING, 05/18/17) Tricyclic Antidepressants (Verified Allergy, Unknown, SWELLING, 05/18/17) Adhesives (Verified Adverse Reaction, Intermediate, Tape - rash/itching, ) Erythromycin (Verified Adverse Reaction, Intermediate, [employer] STOM[employer] CRAMPS, 05/18/17) Physical Exam Vital Signs Date Time Temp Pulse Resp B/P (MAP) Pulse Ox O2 Delivery O2 Flow Rate FiO2 05/18/17 03:26 37.0 95 23 124/67 96 Room Air 05/18/17 03:05 94 05/18/17 01:33 90 20 144/77 95 Room Air 05/18/17 00:14 96 Room Air 05/18/17 00:00 97 05/17/17 23:43 37.1 107 18 159/73 95 Room Air Physical Exam Vital signs reviewed. General: Chronically ill appearing, morbidly obese, in no significant distress. HEENT: Mediport in right subclavian region. No scleral icterus, PERRLA, neck supple. Atraumatic. Cardiovascular: Post surgical changes to both breasts. Tachycardic rate but regular rhythm, no extra sounds. Pulmonary: Crackles at the bases bilaterally. Clear to auscultation bilaterally , normal work of breathing. Abdomen: Soft, nontender, nondistended, positive bowel sounds. Musculoskeletal: Atraumatic, no peripheral edema. Neurologic: Patient awake alert and oriented x 3 Skin: Slightly diaphoretic. Minimal peripheral edema bilaterally. Warm, dry, no rash Medical Decision & Procedures ER Provider Diagnostic Interpretation: Chest x-ray results as stated below per interpretation by me and the radiologist : Mediport in place. Slight interstitial prominence to bases bilaterally. No focal lung consolidation, density projected over the right lower lung field that is likely artifact. Laboratory Results 05/18/17 00:02 Red Blood Count 4.00, Mean Corpuscular Volume 92.0, Mean Corpuscular Hemoglobin 29.8, Mean Corpuscular Hemoglobin Concent 32.3, Mean Platelet Volume 10.2, Neutrophils (%) (Auto) 68.4, Lymphocytes (%) (Auto) 21.6, Monocytes (%) (Auto) 7.7, Eosinophils (%) (Auto) 0.9, Basophils (%) (Auto) 0.5, Neutrophils # (Auto) 5.91, Lymphocytes # (Auto) 1.87, Monocytes # (Auto) 0.67, Eosinophils # (Auto) 0.08, Basophils # (Auto) 0.04 05/18/17 00:02 Test 05/18/17 00:02 05/18/17 00:11 05/18/17 03:15 White Blood Count 8.65 K/uL (4.8-10.8) Red Blood Count 4.00 M/uL (4.2-5.4) Hemoglobin 11.9 g/dL (12.0-16.0) Hematocrit 36.8 % (37-47) Mean Corpuscular Volume 92.0 fL (80-100) Mean Corpuscular Hemoglobin 29.8 pg (25-34) Mean Corpuscular Hemoglobin Concent 32.3 g/dl (32-36) Platelet Count 310 K/uL (130-400) Mean Platelet Volume 10.2 fL (7.4-10.4) Neutrophils (%) (Auto) 68.4 % Lymphocytes (%) (Auto) 21.6 % Monocytes (%) (Auto) 7.7 % Eosinophils (%) (Auto) 0.9 % Basophils (%) (Auto) 0.5 % Neutrophils # (Auto) 5.91 K/uL (1.4-6.5) Lymphocytes # (Auto) 1.87 K/uL (1.2-3.4) Monocytes # (Auto) 0.67 K/uL (0.11-0.59) Eosinophils # (Auto) 0.08 K/uL (0-0.5) Basophils # (Auto) 0.04 K/uL (0-0.2) RDW Standard Deviation 56.8 fL (36.4-46.3) RDW Coefficient of Variation 17.3 % (11.5-14.5) Immature Granulocyte % (Auto) 0.9 % Immature Granulocyte # (Auto) 0.08 K/uL (0.00-0.02) Nucleated RBC Absolute Count (auto) 0.02 K/uL (0-0) Nucleated Red Blood Cells % 0.2 % Prothrombin Time 23.4 SECONDS (9.0-12.0) Prothromb Time International Ratio 2.3 (0.9-1.1) Activated Partial Thromboplast Time 57.3 SECONDS (21.0-31.0) Partial Thromboplastin Ratio 2.2 Anion Gap 11.0 mmol/L (3-11) Est Creatinine Clear Calc Drug Dose 76.1 ml/min Estimated GFR () 65.3 Estimated GFR (Non- 56.4 BUN/Creatinine Ratio 17.6 (10-20) Calcium Level 9.4 mg/dl (8.5-10.1) Magnesium Level 1.8 mg/dl (1.8-2.4) Total Bilirubin 0.4 mg/dl (0.2-1) Direct Bilirubin < 0.1 mg/dl (0-0.2) Aspartate Amino Transf (AST/SGOT) 17 U/L (15-37) Alanine Aminotransferase (ALT/SGPT) 36 U/L (12-78) Alkaline Phosphatase 106 U/L (45-117) Total Creatine Kinase 95 U/L (26-192) Creatine Kinase MB 0.7 ng/ml (0.5-3.6) Creatine Kinase MB Ratio 0.7 (0-3.0) Troponin I < 0.015 ng/ml (0-0.045) Total Protein 7.6 gm/dl (6.4-8.2) Albumin 3.4 gm/dl (3.4-5.0) Lipase 239 U/L (73-393) Thyroid Stimulating Hormone (TSH) 1.500 uIu/ml (0.300-4.500) Bedside D-Dimer 76 ng/mlFEU (0-450) Influenza Type A (RT-PCR) Neg for Influ A (NEG) Influenza Type B (RT-PCR) Neg for Influ B (NEG) Laboratory results per my review. Medications Administered Medications (Trade) Dose Ordered Sig/Tiburcio Route Start Time Stop Time Status Last Admin Dose Admin Aspirin (Aspirin Chew) 324 mg NOW STAT PO 05/17/17 23:57 05/17/17 23:59 DC 05/18/17 00:10 324 MG Sodium Chloride 1,000 ml @ 125 mls/hr Q8H STAT IV 05/17/17 23:57 05/18/17 02:43 DC 05/17/17 23:57 125 MLS/HR Potassium Chloride (Klor-Con Pwd) 60 meq NOW STAT PO 05/18/17 03:15 05/18/17 03:16 DC 05/18/17 04:00 60 MEQ Sodium Chloride 1,000 ml @ 50 mls/hr Q20H IV 05/18/17 03:01 06/17/17 03:00 05/18/17 03:21 50 MLS/HR ECG Per My Interpretation Indication: chest pain Rate (beats per minute): 98 Rhythm: normal sinus Findings: left axis deviation, other (poor quality baseline) Comparison ECG Date: T-waves in inferior lead likely improved otherwise no other significant changes from 08/12/16 ED Course 2351: Past medical records reviewed. The patient was evaluated in room C7. A complete history and physical examination was performed. 235: Ordered Sodium Chloride 1000ml @ 125mls/hr IV and Aspirin 324mg PO. 0107: I reviewed the patient's case with Dr. Denis. He will evaluate the patient for further management. 0113: I reevaluated the patient, who was resting. I discussed the test findings with her. She verbalized complete understanding and agreement of the treatment plan. Medical Decision Differential diagnosis: Etiologies such as infections, reactive airway disease, pneumonia, pneumothorax , COPD, CHF, cardiac ischemia, pulmonary embolism, musculoskeletal, gastrointestinal, as well as others were entertained. This patient was evaluated and appeared to be in no significant distress. IV access was obtained and laboratory work was done. Patient was given aspirin 324 mg to chew. EKG was performed and reveals no evidence of acute ischemia. Patient is found to be in a sinus tachycardia. Patient was gently hydrated with normal saline solution. Laboratory work reveals an INR of 2.3. Cardiac enzymes are normal. D-dimer is normal. Chest x-ray reveals no evidence of focal lung consolidation to my interpretation. The patient was informed of the findings. Given the chest discomfort and palpitations along with her multiple comorbidities, the patient will be evaluated by the hospitalist service for further management. She and her are aware of the plan and agree. Medication Reconcilliation Current Medication List: was personally reviewed by me Blood Pressure Screening Patient's blood pressure: Normal blood pressure Blood pressure disposition: Did not require urgent referral Consults Time Called: 106 Consulting Physician: Alberto Martinez Returned Call: 106 I reviewed the patient's case with Alberto Martinez. He will evaluate the patient for further management. Impression Primary Impression: Shortness of breath Scribe Attestation The scribe's documentation has been prepared under my direction and personally reviewed by me in its entirety. I confirm that the note above accurately reflects all work, treatment, procedures, and medical decision making performed by me. Departure Information Dispostion Being Evaluated By Hospitalist Referrals Hortensia Crane M.D. (PCP) Forms Call Back Authorization, HOME CARE DOCUMENTATION FORM, IMPORTANT VISIT INFORMATION Patient Instructions My [facility]
[2017-05-18 00:40] LABS: ALKALINE PHOSPHATASE 106 U/L (45-117); CKMB 0.7 ng/ml (0.5-3.6); TOTAL PROTEIN 7.6 gm/dl (6.4-8.2)
[2017-05-18 00:42] LABS: PTT PATIENT 57.3 SECONDS (21.0-31.0)
[2017-05-18] MEDS ORDERED: SLWMEC PO ×2 (00:55)
[2017-05-18] MEDS ORDERED: DULO60CA44 PO (00:56)
[2017-05-18] MEDS ORDERED: ASPCH81X PO (00:57)
[2017-05-18] MEDS ORDERED: HYG/25 PO (00:57)
[2017-05-18] MEDS ORDERED: VNTHFA/IN INH (00:58)
[2017-05-18] MEDS ORDERED: POTATAB13 PO (00:59)
[2017-05-18] MEDS ORDERED: OXYC1TAB3 PO (01:00)
[2017-05-18] MEDS ORDERED: WARF5TAB90 PO (01:06)
[2017-05-18] MEDS ORDERED: VERA120T15 PO (01:06)
[2017-05-18 01:44] LABS: LIPASE 239 U/L (73-393)
[2017-05-18] MEDS ORDERED: POTASSIUM CHLORIDE 20 MEQ PO STA (02:04)
[2017-05-18] MEDS ORDERED: POTASSIUM CITRATE PO STA (02:04)
[2017-05-18] MEDS ORDERED: SODIUM CHLORIDE 0.9% 1000ML 1,000 ML IV SCH (03:01)
[2017-05-18] MEDS ORDERED: PROCHLORPERAZINE INJ 5 MG in SYRINGE 4 ML IV PRN (03:15)
[2017-05-18] MEDS ORDERED: NITROGLYCERIN 0.4 MG SL PER TAB CHARGE SL PRN (03:15)
[2017-05-18] MEDS ORDERED: ROPINIROLE HCL 5 MG TAB PO PRN (03:15)
[2017-05-18] MEDS ORDERED: GLUCOSE 40% GEL 15 GM TUBE PO PRN (03:15)
[2017-05-18] MEDS ORDERED: DEXTROSE 50% 50 ML SYR IV PRN (03:15)
[2017-05-18] MEDS ORDERED: GLUCOSE 10 TABS/TUBE PO PRN (03:15)
[2017-05-18] MEDS ORDERED: GLUCAGON FOR INJ 1 MG VIAL SQ PRN (03:15)
[2017-05-18] MEDS ORDERED: MoRPHine SULFATE 4 MG/ML 1 ML CARP\\VIAL IV PRN (03:15)
[2017-05-18] MEDS ORDERED: ACETAMINOPHEN 325 MG TAB PO PRN (03:15)
[2017-05-18] MEDS ORDERED: LORAZEPAM 2 MG/ML 1 ML VIAL IV PRN (03:15)
[2017-05-18] MEDS ORDERED: OXYCODONE/ACETAMINOPHEN 5-325 TAB PO PRN (03:15)
[2017-05-18] MEDS ORDERED: POTASSIUM CHLORIDE PWD 20 MEQ PACK PO STA (03:15)
[2017-05-18 04:08] LABS: INFLUENZA A PCR Neg for Influ A (NEG); INFLUENZA B PCR Neg for Influ B (NEG)
[2017-05-18] MEDS ORDERED: LORAZEPAM INJ 0.5 MG in SYRINGE 0.75 ML IV PRN (04:30)
[2017-05-18] MEDS ORDERED: ROPINIROLE HCL 0.25 MG TAB PO PRN (04:45)
--- NOTE | 2017-05-18 04:50 | HISTORY & PHYSICAL EXAMINATION ---
DATE OF ADMISSION: 05/18/2017 PRIMARY CARE DOCTOR: Dr. Crane. CHIEF COMPLAINT: Chest pain, palpitations. HISTORY OF PRESENT ILLNESS: History obtained from patient records. Medical history significant for PE on Coumadin, breast cancer status post surgery, left elbow surgery, chemoradiation, history of ____, history of hypertension, diabetes type 2 on oral meds, well managed as per records, PSVT as per records, mood disorder, asthma, past tobacco abuse, chronic anemia, baseline hemoglobin of 11. Recent confinement last August 2016 for atrial tachycardia, verapamil added to Topral XL. For the last 2 weeks, the patient ____ lower abdominal pain, loose stools nonbloody, flu-like symptoms, poor appetite. The last 2 days the patient had palpitations in the evening, some chest heaviness, shortness of breath which she gets when she gets palpitations, paroxysmal atrial tachycardia. Seen at PCP's office. Outpatient blood work showed a hemoglobin of 11. Outpatient echo, Holter requested. The patient came here because of worsening symptoms. MEDICAL HISTORY: As above. A 2D echo from August 2016 showed EF of 60-65%, mild mitral regurgitation, ____ expansion. No unusual stress at home. SURGERIES: She has had mastectomy, hernia repair, gallbladder surgery, carpal tunnel surgery, vascular procedures, oophorectomy, hysterectomy, breast reconstruction. HOME MEDICATIONS: Include Ventolin, aspirin, Lipitor, Hygroton, Cymbalta, Advair Diskus, glimepiride, Slow-Mag, Glucophage, Singulair, Roxicodone, ____, potassium chloride, Zantac, Requip, Spiriva, ____ and Coumadin. ALLERGIES: TO ADHESIVES, AMITRIPTYLINE, CODEINE, DOXEPIN, ERYTHROMYCIN, HYOSCYAMINE, POTASSIUM CHLORIDE, GABAPENTIN ____. FAMILY HISTORY: Breast cancer. PERSONAL AND SOCIAL HISTORY: Past tobacco, no chronic intake of alcoholic beverages. Retired from ____ work. REVIEW OF SYSTEMS: As per HPI, all 10 systems reviewed. All other ROS negative. PHYSICAL EXAMINATION: VITAL SIGNS: Blood pressure was noted to be 110/60, pulse rate 107, later 90, RR 18, temperature 36.7, sats 95 on room air. GENERAL: Noted to be slightly anxious, no respiratory distress. SKIN: Pallor, warm. HEENT: Pale palpebral conjunctivae. No ptosis. Dry mucosa. NECK: Short, supple. CHEST: Decreased effort. No tenderness. HEART: Regular rate and rhythm, no murmur. ABDOMEN: Some distention, nontender. EXTREMITIES: Minimal LE edema with chronic tenderness. No other gross deformity. NEUROLOGIC: Coherent. No gross focality. LABORATORY DATA: Hemoglobin was noted to be 11.8, hematocrit 36.9, white cells 8.6, platelets 210. Sodium 130, potassium 3.5, chloride 101, CO2 26, BUN 90, creatinine 1, glucose 223. Outpatient TSH from May 2017 was 1.7, hemoglobin A1c 6.8. INR was 2.3. Chest x-ray, pacemaker site, atelectasis. EKG as per my interpretation, rate 95, normal sinus rhythm, LAD, LAFB, T-wave flattening inversion in inferior leads. ASSESSMENT: 1. Atypical chest pain, shortness of breath, palpitations ? symptomatic PSVT/PAT. Recent flulike illness 2. History of pulmonary embolism/DVT on Coumadin INR therapeutic. 3. Breast cancer, L status post surgery chemotherapy. 4. Past tobacco abuse. 5. Fibromyalgia as per records 6. DM2 on oral meds, well controlled as of recent outpatient hemoglobin A1c. PLAN: Observation PCU maintain serum potassium of at least 4, serum magnesium of at least 2 Continue home BB, CCB meds Further eval/management of chest pain/palpitations as per Cardiology. Check flu swab ISS BG goal 140-180. DVT prophylaxis, Coumadin INR 2-3. Full code. MTDD
[2017-05-18] MEDS ORDERED: METOPROLOL TARTRATE 25 MG TAB PO ONE (05:00)
[2017-05-18] MEDS ORDERED: IV FLUIDS COMPLETED PRN (05:00)
[2017-05-18] MEDS ORDERED: INSULIN ASPART 100 UNITS/ML 3 ML PEN SC ONE (05:00)
[2017-05-18 05:04] VITALS: BP 124/67; PULSE 95; TEMP 37; O2SAT 96; Ht 165.1 cm; Wt 130.0 kg
--- NOTE | 2017-05-18 07:10 | DIAGNOSTIC IMAGING REPORT ---
CHEST ONE VIEW PORTABLE HISTORY: Chest pain. Palpitations. COMPARISON: Chest 08/04/2016. FINDINGS: The heart is mildly enlarged. The lungs are clear. No pleural effusions. No pneumothorax. Right Port-A-Cath terminates in the SVC. IMPRESSION: Mild cardiomegaly. Electronically signed by: Yeison Aguiar M.D. 05/18/2017 7:09 AM Dictated Date/Time: 05/18/2017 7:08 AM
[2017-05-18] MEDS: POTASSIUM CITRATE 10 MEQ TAB PO SCH ×2 (07:50→07:53)
[2017-05-18] MEDS: VERAPAMIL HCL 40 MG TAB PO SCH ×2 (07:51→14:22)
[2017-05-18 08:00] VITALS: BP 109/74; PULSE 78; TEMP 36.7; O2SAT 95
[2017-05-18] MEDS ORDERED: NSS + 20MEQ KCL 1000ML 1,000 ML IV SCH (08:00)
[2017-05-18] MEDS ORDERED: MAGNESIUM SULFATE 1GM / D5W 1 GM in PREMIXED IN D5W 100 ML IV ONE (08:00)
[2017-05-18] MEDS ORDERED: RANITIDINE HCL 150 MG TAB PO SCH (09:00)
[2017-05-18] MEDS ORDERED: POTASSIUM CITRATE 10 MEQ TAB PO SCH (09:00)
[2017-05-18] MEDS ORDERED: OXYCODONE HCL IR 5 MG TAB (IMMEDIATE RELEASE) PO SCH (09:00)
[2017-05-18] MEDS ORDERED: FLUTICASONE/SALMETEROL 250/50 (ADVAIR) 14 PUFF/1 INHALER INH SCH (09:00)
[2017-05-18] MEDS ORDERED: DULOXETINE HCL 60 MG CAP PO SCH (09:00)
[2017-05-18] MEDS ORDERED: ASPIRIN 81 MG ECTAB PO SCH (09:00)
[2017-05-18] MEDS ORDERED: MAGNESIUM CHLORIDE 64MG DELAYED REL TAB PO SCH ×2 (09:00→21:00)
[2017-05-18] MEDS ORDERED: INSULIN ASPART 100 UNITS/ML 3 ML PEN SC SCH (11:00)
[2017-05-18 11:06] VITALS: BP 112/83; PULSE 83; TEMP 36.6; O2SAT 94
[2017-05-18 12:45] LABS: CALCIUM 8.7 mg/dl (8.5-10.1); CREATININE 0.95 mg/dl (0.60-1.20); POTASSIUM 3.8 mmol/L (3.5-5.1)
--- NOTE | 2017-05-18 13:38 | Progress Note ---
Progress Note Date of Service May 18, 2017. Progress Note ATTENDING ADDENDUM patient seen and examined, records reviewed by myself as well on exam, patient seen resting in bed, comfortable using CPAP no active chest pain, dyspnea feels tired otherwise feels ok SR with PACs on tele no other symptoms VS noted and reviewed oriented x 2 , not in distress, speaks in sentences with no effort nor accessory muscle use normal rate, regular rhythm, 2/6 HS murmur clear breath sounds bilaterally non distended, soft, nontender no bipedal edema, erythema, warmth no neuro deficits K 3.8 Mg 2.3 ASSESSMENT/PLAN> CHEST PAIN, DYSPNEA ON EXERTION R/O UNSTABLE ANGINA VS. ACS - troponins x 2 negative - ekg: no acute ischemia - check echo - continue ASA, Lipitor, Metoprolol, Lisinopril Cardiology consulted other diagnoses and plan of care as per Dr. Denis's notes Raúl Burroughs MD
--- NOTE | 2017-05-18 14:33 | Cardiology Consultation ---
Cardiology Consultation Date of Service May 18, 2017. Cardiology Consultation full cardiology consult dictated; pt ECG stable and normal; telemetry unremarkable; ruled out for ACS with 2 troponins. No need for stress test. Continue metoprolol, verapamil and coumadin. Ok for discharge home today after she eats and ambulates. f/u in our office upon discharge.
[2017-05-18 15:08] VITALS: BP 133/73; PULSE 84; TEMP 36.7; O2SAT 94
--- NOTE | 2017-05-18 15:28 | CARDIOLOGY CONSULTATION ---
DATE OF CONSULTATION: 05/18/2017 REASON FOR CONSULTATION: Chest pain and palpitations. HISTORY OF PRESENT ILLNESS: This is a 61-year-old female who has a past medical history of paroxysmal atrial tachycardia on sotalol briefly, but now on only metoprolol and verapamil; nonsustained VT, diabetes, hyperlipidemia, PE, chronic started on Coumadin in July of 2016. She has noticed over the past week some increased generalized fatigue, lightheadedness, dizziness. Overnight, she had worsening palpitations and felt near syncope as well as some chest pressure that turned into more chest pain. She got nervous and so went to the hospital. Of note, she had recently saw her primary care physician and a Holter monitor was placed yesterday, so she came in with that on. Her EKG was unremarkable. She ruled out for acute coronary syndrome x2. She still has a little bit of lightheadedness and intermittent chest squeezing that she has always had. She does report a couple weeks ago having a possible flu-like symptoms with some fever and some diarrhea. She got some IV fluid and magnesium IV and is ultimately feeling a little bit better. PAST MEDICAL HISTORY: Lymphedema, GERD, fibromyalgia, obstructive sleep apnea on CPAP, diabetes, obesity, history of breast cancer status post chemotherapy and Adriamycin about 3 years ago and a left lymph node dissection. She has a right-sided port, diabetes, obesity, hypomagnesium, chronic PE is on Coumadin, nonsustained VT, and paroxysmal atrial tachycardia. PAST SURGICAL HISTORY: Breast mastectomy and then followed by reconstruction, carpal tunnel surgery, I&D of a skin abscess, a tunneled catheter in the right subclavian and there was a radical modified mastectomy with lymph node dissection on the left, oophorectomy, laparoscopic cholecystectomy, hysterectomy, and hernia repairs. ALLERGIES: GABAPENTIN, TRICYCLIC ANTIDEPRESSANTS, CODEINE, ERYTHROMYCIN, POTASSIUM, TAPE, VAGISIL AND JANUVIA. FAMILY HISTORY: Unremarkable. SOCIAL HISTORY: She is a former tobacco user, quit in 1984. No alcohol. REVIEW OF SYSTEMS: All other 10-point review of systems is reviewed and is essentially negative at this time. See HPI for pertinent positives. HOME MEDICATIONS: Include albuterol, chlorthalidone, metformin, Coumadin, glyburide, aspirin, Lipitor, Cymbalta, Advair, magnesium, metoprolol 25 twice a day, Singulair, oxycodone, potassium supplement, Zantac, Requip, Spiriva and verapamil 120 mg 3 times a day. PHYSICAL EXAMINATION: VITAL SIGNS: Temperature 36.6, heart rate 83, respirations 18, blood pressure 118/83, oxygen saturation 94% on room air. GENERAL: She is awake, alert and oriented x3, no acute distress, sitting up comfortably, kind in the bed. HEENT: Normocephalic, atraumatic. Extraocular movements intact. Sclerae is nonicteric. Mucous membranes moist. NECK: Supple, no carotid bruits appreciated. No JVD. Carotid upstrokes normal. CARDIOVASCULAR: Normal S1, S2, regular rate and rhythm, no murmur appreciated. No palpable heave or thrill. PULMONARY: Clear to auscultation bilaterally. No wheeze, rales or rhonchi. ABDOMEN: Positive bowel sounds, soft, obese. EXTREMITIES: No clubbing or cyanosis, bilateral fingers. No edema of bilateral lower extremities. Peripheral pulses intact. NEUROLOGIC: Grossly intact. SKIN: Grossly intact. PERTINENT TESTING: A 12-lead ECG on admission - sinus rhythm, 98 beats per minute, normal intervals. Repeat today - sinus rhythm, 83 beats per minute, normal intervals, no ST or T-wave abnormalities. LABORATORY WORK: Hematology - WBCs 8.65, hemoglobin 11.9, hematocrit 36.8, and platelets 310. Chemistry: Sodium 139, potassium 3.8, chloride 104, carbon dioxide 25, BUN 20, creatinine 0.95, glucose 183, calcium 8.7, magnesium 2.3. Troponins negative x2. TSH within normal limits at 1.5. AST 17, ALT 36, alkaline phosphatase 106, direct bilirubin less than 0.1, total bilirubin 0.4, magnesium 1.8, lipase 239, albumin 3.4, total protein 7.6. Coagulation - INR is 2.3. Negative for influenza A and B. IMAGING DATA: Chest x-ray, no acute pathology. Dobutamine stress echo in 2014 as an outpatient was negative for ischemia and echocardiogram on July 2016 - EF was 60-65%, grade 1 diastolic dysfunction, mild MR. IMPRESSION: 1. Palpitations associated with some lightheadedness and dizziness as well as some chest pain seen. 2. Paroxysmal atrial tachycardia, on beta tracie and verapamil. 3. History of PE is on Coumadin. 4. Hyperlipidemia and obesity 5. Diabetes. 6. History of breast cancer status post left mastectomy with lymph node dissection. 7. History of diverticulitis and diverticulosis. 8. Nonsustained ventricular tachycardia. 9. Chronic lymphedema. 10. Diabetes. 11. Obesity. 12. Hypomagnesium. PLAN: The patient ruled out for any acute coronary syndrome with negative troponins or EKG and telemetry have been unremarkable. Blood pressure and heart rates have been stable. Her electrolytes are stable. I do not have any cardiac etiology for her symptoms. It was recommended she can eat and she should ambulate the halls and if she feels fine, from a cardiac standpoint could go home. Would recommend continuing her metoprolol and verapamil as well as her Coumadin, and she should follow up in our [facility] office as scheduled with me in a few weeks. No need for any inpatient further cardiac workup.
[2017-05-18 15:49] VITALS: BP 133/73; PULSE 84; TEMP 36.7; O2SAT 94
--- NOTE | 2017-05-18 15:56 | Discharge Instructions ---
Discharge Instructions Date of Service May 18, 2017. Admission Reason for Admission: Chest Pain Discharge Discharge Diagnosis / Problem: CHEST PAIN Discharge Goals Goal(s): Diagnostic testing, Therapeutic intervention Activity Recommendations Activity Limitations: as noted below (NO HEAVY EXERTION UNTIL RE-EVALUATED BY PRIMARY CARE PHYSICIAN) Lifting Limitations: until after follow-up appointment Exercise/Sports Limitations: until after follow-up appointment Driving or Machine Use: NO DRIVING UNTIL RE-EVALUATED BY PRIMARY CARE PHYSICIAN . Instructions / Follow-Up Instructions / Follow-Up CALL PRIMARY CARE PHYSICIAN OR RETURN TO ER IMMEDIATELY IF WITH RECURRENCE OF SYMPTOMS. FOLLOW UP WITH DR. MAC ON Tuesday05/23/17 AT 10:05AM. Current Hospital Diet Patient's current hospital diet: Diabetes Type 2 Diet, AHA Diet (Heart Healthy) Discharge Diet Recommended Diet: AHA Diet (Heart Healthy), Diabetes Type 2 Diet Pending Studies Studies pending at discharge: no Medical Emergencies . Who to Call and When: Medical Emergencies: If at any time you feel your situation is an emergency, please call 911 immediately. . Non-Emergent Contact Non-Emergency issues call your: Primary Care Provider, Deskidding Machine Operator Call Non-Emergent contact if: you have a fever, your pain is not controlled, your pain is worsening, you have any medication questions . . "Provider Documentation" section prepared by Raúl Burroughs. .
--- NOTE | 2017-05-18 15:58 | Discharge Summary ---
Discharge Summary Date of Service May 18, 2017. Discharge Summary Admission Date: May 18, 2017 at 02:23 Discharge Date: May 18, 2017 Discharge Disposition: Home Principal Diagnosis: Atypical chest pain, shortness of breath, palpitations Secondary Diagnoses/Problems: Please refer to hospital course below. Procedures: CHEST ONE VIEW PORTABLE HISTORY: Chest pain. Palpitations. COMPARISON: Chest 08/04/2016. FINDINGS: The heart is mildly enlarged. The lungs are clear. No pleural effusions. No pneumothorax. Right Port-A-Cath terminates in the SVC. IMPRESSION: Mild cardiomegaly. Electronically signed by: Yeison Aguiar M.D. 05/18/2017 7:09 AM Consultations: HYDROLOGY TECHNICIAN DR. HOWELL Pending Studies/Follow-Up: PLEASE REFER TO HOSPITAL COURSE BELOW. Medication Reconciliation Continued Medications: Albuterol Hfa (Ventolin Hfa) 200 Puffs/77776 Mcg Aers 4 PUFFS INH Q4 PRN for SOB/Wheezing, #1 INHALER Aspirin (Aspirin Chewable) 81 Mg Chew 81 MG PO DAILY Atorvastatin (Lipitor) 20 Mg Tab 20 MG PO HS, TAB Chlorthalidone (Hygroton) 25 Mg Tab 12.5 MG PO QAM, TAB Duloxetine Hcl (Cymbalta) 60 Mg Cap 60 MG PO BID, CAP Fluticasone Prop/Salmeterol (Advair Diskus 250/50 60 Dose) 1 Ea Aerp 1 PUFF INH BID, INHALER Glimepiride (Glimepiride) 4 Mg Tab 4 MG PO QAM Magnesium Chloride (Slow-Mag Tab) 64 Mg Tabcr 2 TABS PO QPM Magnesium Chloride (Slow-Mag Tab) 64 Mg Tabcr 3 TABS PO QAM, TAB Metformin Hcl (Glucophage) 1,000 Mg Tab 1000 MG PO BID, TAB Metoprolol Tartrate (Lopressor) 25 Mg Tab 25 MG PO BID for 30 Days, #60 TAB Montelukast Sodium (Singulair) 10 Mg Tab 10 MG PO HS, TAB Oxycodone Ir (Roxicodone Ir) 5 Mg Tab 5 MG PO BID, TAB Potassium Chloride (Potassium Chloride ER) 20 Meq Tab 20 MEQ PO BID Potassium Citrate (Alkalinizer (Urocit-K 15) 15 Meq Tab 3 TABS PO BID, #30 TAB 6 Refills Ranitidine (Zantac) 150 Mg Tab 1 TAB PO BID for 30 Days, #60 TAB 3 Refills Ropinirole (Requip) 0.5 Mg Tab 0.5 MG PO HS PRN for restless legs, TAB Tiotropium [place] (Spiriva Handihaler) 30 Puff/540 Mcg Aerp 1 CAP INH HS, INHALER Verapamil (Calan) 120 Mg Tab 120 MG PO TID, TAB Warfarin Sodium (Coumadin) 5 Mg Tab 5 MG PO DAILY, TAB Admission Information HPI (per Admitting provider): DATE OF ADMISSION: 05/18/2017 PRIMARY CARE DOCTOR: Dr. Crane. CHIEF COMPLAINT: Chest pain, palpitations. HISTORY OF PRESENT ILLNESS: History obtained from patient records. Medical history significant for PE on Coumadin, breast cancer status post surgery, left elbow surgery, chemoradiation, history of hypertension, diabetes type 2 on oral meds, well managed as per records, PSVT as per records, mood disorder, asthma, past tobacco abuse, chronic anemia, baseline hemoglobin of 11. Recent confinement last August 2016 for atrial tachycardia, verapamil added to Topral XL. For the last 2 weeks, the patient has lower abdominal pain, loose stools nonbloody, flu-like symptoms, poor appetite. The last 2 days the patient had palpitations in the evening, some chest heaviness, shortness of breath which she gets when she gets palpitations, paroxysmal atrial tachycardia. Seen at PCP's office. Outpatient blood work showed a hemoglobin of 11. Outpatient echo, Holter requested. The patient came here because of worsening symptoms. Physical Exam (per Admitting): VITAL SIGNS: Blood pressure was noted to be 110/60, pulse rate 107, later 90, RR 18, temperature 36.7, sats 95 on room air. GENERAL: Noted to be slightly anxious, no respiratory distress. SKIN: Pallor, warm. HEENT: Pale palpebral conjunctivae. No ptosis. Dry mucosa. NECK: Short, supple. CHEST: Decreased effort. No tenderness. HEART: Regular rate and rhythm, no murmur. ABDOMEN: Some distention, nontender. EXTREMITIES: Minimal LE edema with chronic tenderness. No other gross deformity. NEUROLOGIC: Coherent. No gross focality. Hospital Course ASSESSMENT: 1. Atypical chest pain, shortness of breath, palpitations. Recent flulike illness - given IV fluids - serial Troponin negative EKG no signs of ischemia - evaluated by Education Faculty Member Dr. Howell no further testing recommended continue the same medications 2. History of pulmonary embolism/DVT on Coumadin INR therapeutic. - continue coumadin 3. Breast cancer, L status post surgery chemotherapy. 4. Past tobacco abuse. 5. Fibromyalgia as per records 6. DM2 on oral meds, well controlled as of recent outpatient hemoglobin A1c. - continue usual regimen d/c home ff up with Dr. Crane 05/23/17 Total time spent on discharge = 30 minutes This includes examination of the patient, discharge planning, medication reconciliation, and communication with other providers. Discharge Instructions Discharge Instructions Date of Service May 18, 2017. Admission Reason for Admission: Chest Pain Discharge Discharge Diagnosis / Problem: CHEST PAIN Discharge Goals Goal(s): Diagnostic testing, Therapeutic intervention Activity Recommendations Activity Limitations: as noted below (NO HEAVY EXERTION UNTIL RE-EVALUATED BY PRIMARY CARE PHYSICIAN) Lifting Limitations: until after follow-up appointment Exercise/Sports Limitations: until after follow-up appointment Driving or Machine Use: NO DRIVING UNTIL RE-EVALUATED BY PRIMARY CARE PHYSICIAN . Instructions / Follow-Up Instructions / Follow-Up CALL PRIMARY CARE PHYSICIAN OR RETURN TO ER IMMEDIATELY IF WITH RECURRENCE OF SYMPTOMS. FOLLOW UP WITH DR. CRANE ON Tuesday05/23/17 AT 10:05AM. Current Hospital Diet Patient's current hospital diet: Diabetes Type 2 Diet, AHA Diet (Heart Healthy) Discharge Diet Recommended Diet: AHA Diet (Heart Healthy), Diabetes Type 2 Diet Pending Studies Studies pending at discharge: no
[2017-05-18] MEDS ORDERED: TIOTROPIUM BROMIDE 5 PUFF/90 MCG INH INH SCH (21:00)
[2017-05-18] MEDS ORDERED: METOPROLOL TARTRATE 25 MG TAB PO SCH (21:00)
[2017-05-18] MEDS ORDERED: MONTELUKAST SOD 10 MG TAB PO SCH (21:00)
[2017-05-18] MEDS ORDERED: ATORVASTATIN 20 MG TAB PO SCH (21:00)
== END 2017-05-18 16:30 | disposition home or self-care (01) ==
LOC: C.EDB 23:43 → C.MS2W 05-18 02:23 → ENRESERV 05-18 07:04
PROVIDERS: ADMIT Internal Medicine; ATTEND Internal Medicine
DX: R07.89 Other chest pain (principal); R00.2 Palpitations; I27.82 Chronic pulmonary embolism; I89.0 Lymphedema, not elsewhere classified; M79.7 Fibromyalgia; E66.01 Morbid (severe) obesity due to excess calories; E11.40 Type 2 diabetes mellitus with diabetic neuropathy, unspecified; K21.9 Gastro-esophageal reflux disease without esophagitis; I10 Essential (primary) hypertension; G47.33 Obstructive sleep apnea (adult) (pediatric); G25.81 Restless legs syndrome; E78.5 Hyperlipidemia, unspecified; J45.909 Unspecified asthma, uncomplicated; F32.9 Major depressive disorder, single episode, unspecified; Z85.3 Personal history of malignant neoplasm of breast; Z86.718 Personal history of other venous thrombosis and embolism; Z79.82 Long term (current) use of aspirin; Z79.01 Long term (current) use of anticoagulants; Z79.899 Other long term (current) drug therapy; Z79.4 Long term (current) use of insulin; Z88.5 Allergy status to narcotic agent; Z88.8 Allergy status to other drugs, medicaments and biological substances; Z88.1 Allergy status to other antibiotic agents

== ENCOUNTER → 2017-10-25 | Day surgery (SDC) | payer OTHER ==
[2017-10-20 14:27] VITALS: Ht 165.1 cm; Wt 131.4 kg
[~2017-10-25] VITALS: Ht 165.1 cm; Wt 131.4 kg
[~2017-10-25] MED LIST changes: +ASPCH81X PO; -BISA-16 PO; -CMD5 PO; -CYM/30 PO; +DULO60CA44 PO; +HYG/25 PO; -IMD/2 PO; -LEVA1.255 INH; -MAGNTAB4 PO; -MULT-790 PO; +ONDANSETRON INJ 2 MG/ML 2 ML VIAL IV PRN; +OXYC-90 PO; -OXYC1TAB3 PO; +POTATAB13 PO; +PROPOFOL IV EMULSION 10 MG/ML 20 ML VIAL ONE; +SLWMEC PO; -TRIA1SPR9 NAE; -TYLER650 PO; +VERA120T15 PO; -VERA120T65 PO; +VNTHFA/IN INH; +WARF5TAB90 PO; -[UNRECOGNIZED DRUG - OTHER] PO
--- NOTE | 2017-10-25 11:21 | Endo History and Physical ---
History & Physical Date of Service: Oct 25, 2017. Chief Complaint: colorectal cancer screening Referring Physician: History of Present Illness Patient referred for a colonoscopy to evaluate for evidence of colon polyps given a history of recurrent diverticulitis over the last 9 months. She has had no recent hospital stays or antibiotic courses. Past Medical History Diabetes, Arthritis, Asthma, Gastrointestinal Disorder, Reflux, Cancer, Sleep Apnea, Hypertension, Depression Past Surgical History Hx Cardiac Surgery: No Hx Internal Defibrillator: No Hx Pacemaker: No Hx Abdominal Surgery: Yes (CARROL, UMBILICAL HERNIA) Hx of Implantable Prosthesis: No Hx Post-Op Nausea and Vomiting: Yes Hx Cancer Surgery: Yes (BILAT MASTECTOMY/RECONSTRUCTION/REMOVAL) Hx Thoracic Surgery: No Hx Orthopedic: Yes (LEFT FOOT TENDON REPAIR, RT/LEFT CTR) Hx Urinary Tract Surgery: No Family History Polyp, IBD Social History Smoking Status: Former Smoker Hx Substance Use: No Hx Alcohol Use: No Allergies Coded Allergies: Codeine (Verified Allergy, Intermediate, ITCHY AND RASH, 10/25/17) Gabapentin (Verified Allergy, Intermediate, swelling, 10/25/17) Potassium Chloride (Verified Allergy, Intermediate, ITCHY AND RASH, ) SPOKE W PATIENT - ALLERGIC TO *BRAND* [facility] ONLY. TAKES GENERIC OUTPATIENT. CALLED OUTPATIENT PHARMACY - CONFIRMED [facility]DC OF POTASSIUM CHLORIDE 10 [place] [address]-65 Amitriptyline (Verified Allergy, Mild, SWELLING, 10/25/17) Sitagliptin (Verified Allergy, Mild, Swelling , 10/25/17) Doxepin (Verified Allergy, Unknown, SWELLING, 10/25/17) Hyoscyamine (Verified Allergy, Unknown, SWELLING, 10/25/17) Nickel (Verified Allergy, Unknown, RASH, 10/25/17) Tricyclic Antidepressants (Verified Allergy, Unknown, SWELLING, 10/25/17) Adhesives (Verified Adverse Reaction, Intermediate, Tape - rash/itching, ) Erythromycin (Verified Adverse Reaction, Intermediate, CUT OFF TENDER GLASS STOMACH CRAMPS, 10/25/17) Current Medications Reported Home Medications Medications Dose Route/Sig Max Daily Dose Days Date Category Calan (Verapamil HCl) 120 Mg Tab 120 Mg PO TID 05/18/17 Reported Coumadin (Warfarin Sodium) 5 Mg Tab 5 Mg PO DAILY 05/18/17 Reported Roxicodone Ir (Oxycodone HCl) 5 Mg Tab 5 Mg PO BID 05/18/17 Reported Urocit-K 15 (Potassium Citrate (Alkalinizer) 15 Meq Tab 3 Tabs PO BID 05/18/17 Reported Ventolin Hfa (Albuterol) 200 Puffs/88262 Mcg Aers 4 Puffs INH Q4 PRN 05/18/17 Reported [place] (Chlorthalidone) 25 Mg Tab 12.5 Mg PO QAM 05/18/17 Reported Aspirin Chewable (Aspirin) 81 Mg Chew 81 Mg PO DAILY 05/18/17 Reported Cymbalta (Duloxetine Hcl) 60 Mg Cap 60 Mg PO BID 05/18/17 Reported Slow-Mag Tab (Magnesium Chloride) 64 Mg Tabcr 3 Tabs PO QAM 05/18/17 Reported Slow-Mag Tab (Magnesium Chloride) 64 Mg Tabcr 2 Tabs PO QPM 05/18/17 Reported Potassium Chloride ER (Potassium Chloride) 20 Meq Tab 20 Meq PO BID 08/10/16 Reported Lopressor (Metoprolol Tartrate) 25 Mg Tab 25 Mg PO BID 30 08/08/16 Rx Singulair (Montelukast Sodium) 10 Mg Tab 10 Mg PO HS 08/04/16 Reported Spiriva Handihaler (Tiotropium [place]) 30 Puff/540 Mcg Aerp 1 Cap INH HS 05/04/16 Reported Zantac (Ranitidine HCl) 150 Mg Tab 1 Tab PO BID 30 05/20/15 Reported Requip (Ropinirole HCl) 0.5 Mg Tab 0.5 Mg PO HS PRN 05/20/15 Reported Glucophage (Metformin Hcl) 1,000 Mg Tab 1,000 Mg PO BID 10/02/14 Reported Lipitor (Atorvastatin) 20 Mg Tab 20 Mg PO HS 05/15/14 Reported Glimepiride 4 Mg Tab 4 Mg PO QAM 11/26/13 Reported Advair Diskus 250/50 60 Dose (Fluticasone Prop/Salmeterol) 1 Ea Aerp 1 Puff INH BID 03/15/12 Reported Vital Signs Weight (Kilograms): 131.36 Height (Feet): 5 Height (Inches): 5 Physical Exam General Appearance: no apparent distress Respiratory/Chest: Auscultation: breath sounds normal Cardiovascular: Heart Auscultation: RRR Abdomen: Inspection & Palpation: soft Assessment and Plan Patient presenting for colorectal cancer screening given her recent history of recurrent diverticulitis. We have discussed the risks of colonoscopy to include bleeding, infection, perforation, pain and missed colonic polyps.
--- NOTE | 2017-10-25 12:33 | GI REPORT ---
Patient Name: Barbie Davidson Procedure Date: 10/25/2017 11:47 AM Date of : 1955 Admit Type: Outpatient Age: 61 Gender: Female Attending MD: King Taylor DO Procedure: Colonoscopy Providers: King Taylor DO Referring MD: Hortensia Crane Indications: Screening for colorectal malignant neoplasm Medicines: Monitored Anesthesia Care Complications: No immediate complications. Estimated blood loss: Minimal. Estimated Blood Loss: Estimated blood loss: none. Procedure: Pre-Anesthesia Assessment: - Prior to the procedure, a History and Physical was performed, and patient medications, allergies and sensitivities were reviewed. The patient's tolerance of previous anesthesia was reviewed. - Patient identification and proposed procedure were verified prior to the procedure by the physician, the nurse and the sound controller. The procedure was verified in the procedure room. - Pre-procedure physical examination revealed no contraindications to sedation. - ASA Grade Assessment: III - A patient with severe systemic disease. - After reviewing the risks and benefits, the patient was deemed in satisfactory condition to undergo the procedure. - The anesthesia plan was to use monitored anesthesia care (MAC). - Immediately prior to administration of medications, the patient was re-assessed for adequacy to receive sedatives. - The heart rate, respiratory rate, oxygen saturations, blood pressure, adequacy of pulmonary ventilation, and response to care were monitored throughout the procedure. - The physical status of the patient was re-assessed after the procedure. After I obtained informed consent, the scope was passed under direct vision. Throughout the procedure, the patient's blood pressure, pulse, and oxygen saturations were monitored continuously. The scope was introduced through the anus and advanced to the cecum, identified by appendiceal orifice and ileocecal valve. The colonoscopy was performed with moderate difficulty due to significant looping and the patient's body habitus. Successful completion of the procedure was aided by applying abdominal pressure. The quality of the bowel preparation was adequate to identify polyps 6 mm and larger in size. Findings: The digital rectal exam findings include non-thrombosed external hemorrhoids. Pertinent negatives include normal sphincter tone. Many medium-mouthed diverticula were found in the sigmoid colon and descending colon. Internal hemorrhoids were found during retroflexion. The hemorrhoids were moderate. The exam was otherwise without abnormality. Impression: - Non-thrombosed external hemorrhoids found on digital rectal exam. - Mild diverticulosis in the sigmoid colon and in the descending colon. - Internal hemorrhoids. - The examination was otherwise normal. - No specimens collected. Recommendation: - Discharge patient to home (ambulatory). - Advance diet as tolerated today. - Repeat colonoscopy in 5 years for screening purposes as small polyps could have been missed. - Return to GI office PRN. King Taylor D.O. King Taylor, 10/25/2017 12:32:40 PM This report has been signed electronically. Note Initiated On: 10/25/2017 11:47 AM Number of Addenda: 0 I attest to the content of the Intraoperative Record and orders documented therein, exceptions below {[id number]}
--- NOTE | 2017-10-25 12:38 | Discharge Instructions ---
Endoscopy Patient Instructions Date / Procedure(s) Performed Oct 25, 2017. Colonoscopy Allergy Information Coded Allergies: Codeine (Verified Allergy, Intermediate, ITCHY AND RASH, 10/25/17) Gabapentin (Verified Allergy, Intermediate, swelling, 10/25/17) Potassium Chloride (Verified Allergy, Intermediate, ITCHY AND RASH, ) SPOKE W PATIENT - ALLERGIC TO *BRAND* [facility] ONLY. TAKES GENERIC OUTPATIENT. CALLED OUTPATIENT PHARMACY - CONFIRMED [facility]DC OF POTASSIUM CHLORIDE 10 [place] [id number] Amitriptyline (Verified Allergy, Mild, SWELLING, 10/25/17) Sitagliptin (Verified Allergy, Mild, Swelling , 10/25/17) Doxepin (Verified Allergy, Unknown, SWELLING, 10/25/17) Hyoscyamine (Verified Allergy, Unknown, SWELLING, 10/25/17) Nickel (Verified Allergy, Unknown, RASH, 10/25/17) Tricyclic Antidepressants (Verified Allergy, Unknown, SWELLING, 10/25/17) Adhesives (Verified Adverse Reaction, Intermediate, Tape - rash/itching, ) Erythromycin (Verified Adverse Reaction, Intermediate, IMAGE ASSEMBLER STOMACH CRAMPS, 10/25/17) Discharge Date / Findings Oct 25, 2017. Left sided diverticulosis Hemorrhoids Medication Instructions Stopped Medication(s): OFF COUMADIN FOR 6 DAYS. Reported Home Medications Medications Dose Route/Sig Max Daily Dose Days Date Category Calan (Verapamil HCl) 120 Mg Tab 120 Mg PO TID 05/18/17 Reported Coumadin (Warfarin Sodium) 5 Mg Tab 5 Mg PO DAILY 05/18/17 Reported Roxicodone Ir (Oxycodone HCl) 5 Mg Tab 5 Mg PO BID 05/18/17 Reported Urocit-K 15 (Potassium Citrate (Alkalinizer) 15 Meq Tab 3 Tabs PO BID 05/18/17 Reported Ventolin Hfa (Albuterol) 200 Puffs/70729 Mcg Aers 4 Puffs INH Q4 PRN 05/18/17 Reported Hygroton (Chlorthalidone) 25 Mg Tab 12.5 Mg PO QAM 05/18/17 Reported Aspirin Chewable (Aspirin) 81 Mg Chew 81 Mg PO DAILY 05/18/17 Reported Cymbalta (Duloxetine Hcl) 60 Mg Cap 60 Mg PO BID 05/18/17 Reported Slow-Mag Tab (Magnesium Chloride) 64 Mg Tabcr 3 Tabs PO QAM 05/18/17 Reported Slow-Mag Tab (Magnesium Chloride) 64 Mg Tabcr 2 Tabs PO QPM 05/18/17 Reported Potassium Chloride ER (Potassium Chloride) 20 Meq Tab 20 Meq PO BID 08/10/16 Reported Lopressor (Metoprolol Tartrate) 25 Mg Tab 25 Mg PO BID 30 08/08/16 Rx Singulair (Montelukast Sodium) 10 Mg Tab 10 Mg PO HS 08/04/16 Reported Spiriva Handihaler (Tiotropium [place]) 30 Puff/540 Mcg Aerp 1 Cap INH HS 05/04/16 Reported Zantac (Ranitidine HCl) 150 Mg Tab 1 Tab PO BID 30 05/20/15 Reported Requip (Ropinirole HCl) 0.5 Mg Tab 0.5 Mg PO HS PRN 05/20/15 Reported Glucophage (Metformin Hcl) 1,000 Mg Tab 1,000 Mg PO BID 10/02/14 Reported Lipitor (Atorvastatin) 20 Mg Tab 20 Mg PO HS 05/15/14 Reported Glimepiride 4 Mg Tab 4 Mg PO QAM 11/26/13 Reported Advair Diskus 250/50 60 Dose (Fluticasone Prop/Salmeterol) 1 Ea Aerp 1 Puff INH BID 03/15/12 Reported Provider Instructions Activity Restrictions - No exercising or heavy lifting for 24 hours. - Do not drink alcohol the day of the procedure. - Do not drive a car or operate machinery until the day after the procedure. - Do not make any important decisions or sign important papers in 24 hours after the procedure. Following Day: - Return to full activity which may include returning to work/school. Diet Start your diet with liquids and light foods (jello, soup, juice, toast). Then eat your usual diet if not nauseated. Treatment For Common After Affects For mild abdominal pain, bloating, or excessive gas: - Rest - Eat lightly - Lie on right side Follow-Up Information Follow-up with DR. MAC as scheduled Repeat colonoscopy in 5 years (suboptimal bowel preparation) Anesthesia Information What You Should Know You have had a procedure that required some medicine to reduce anxiety and discomfort. This treatment is called moderate sedation. After receiving the treatment, you may be sleepy, but you will be able to breathe on your own. The effects of the treatment may last for several hours. Follow these instructions along with Activity/Diet recommendations noted above: * Do NOT do anything where dizziness or clumsiness would be dangerous. * Rest quietly at home today, then you can be up and about tomorrow. * Have a responsible person stay with you the rest of today. * You may have had an I.V. today. If so, you may take the dressing off later today. Recommendations Call your doctor if: * Trouble breathing * Continuous vomiting for more than 24 hours * Temperature above 101 degrees * Severe abdominal pain or bloating * Pain not relieved by pain medicine ordered * There is increased drainage or redness from any incision * A large amount of rectal bleeding greater than 2-3 tablespoons. (If you had a polyp/s removed or have hemorrhoids, a small amount of blood - from the rectum is to be expected.) * You have any unanswered questions or concerns. IN THE EVENT OF A SERIOUS EMERGENCY, GO TO THE NEAREST EMERGENCY ROOM Your discharge instructions were prepared by provider King Taylor. Patient Instructions Signature Page Barbie Davidson Patient (or Guardian) Signature/Date: I have read and understand the instructions given to me by my caregivers. Caregiver/RN/Doctor Signature/Date: The above-named patient and/or guardian has received patient instructions on this date. + Original Patient Signature Page (only) stays with chart. Please make copy for patient.
[2017-10-25 12:52] VITALS: BP 125/64; PULSE 75; O2SAT 97
--- NOTE | 2017-10-25 13:02 | Anesthesiology Progress Note ---
Anesthesia Post Op Note Date & Time Oct 25, 2017 at 13:02 Vital Signs Pain Intensity: 0 Vital Signs Past 12 Hours Date Time Temp Pulse Resp B/P (MAP) Pulse Ox O2 Delivery O2 Flow Rate FiO2 10/25/17 12:37 78 20 119/64 (82) 95 Room Air 10/25/17 12:22 36.9 82 20 130/63 (85) 95 Room Air 10/25/17 11:38 36.7 82 20 132/70 (90) 95 Room Air Notes Mental Status: alert / awake / arousable, participated in evaluation Pt Amnestic to Procedure: Yes Nausea / Vomiting: adequately controlled Pain: adequately controlled Airway Patency, RR, SpO2: stable & adequate BP & HR: stable & adequate Hydration State: stable & adequate Anesthetic Complications: no major complications apparent
== END | disposition home or self-care (01) ==
LOC: C.GI 10:47
PROVIDERS: ATTEND Internal Medicine Gastroenterology
DX: Z12.11 Encounter for screening for malignant neoplasm of colon (principal); K64.4 Residual hemorrhoidal skin tags; K57.30 Diverticulosis of large intestine without perforation or abscess without bleeding; K64.8 Other hemorrhoids; J45.909 Unspecified asthma, uncomplicated; G47.33 Obstructive sleep apnea (adult) (pediatric); K21.9 Gastro-esophageal reflux disease without esophagitis; N18.9 Chronic kidney disease, unspecified; I12.9 Hypertensive chronic kidney disease with stage 1 through stage 4 chronic kidney disease, or unspecified chronic kidney disease; E11.9 Type 2 diabetes mellitus without complications; I48.0 Paroxysmal atrial fibrillation; F32.9 Major depressive disorder, single episode, unspecified; E66.9 Obesity, unspecified; Z68.41 Body mass index [BMI] 40.0-44.9, adult; Z88.5 Allergy status to narcotic agent; Z88.1 Allergy status to other antibiotic agents; Z88.8 Allergy status to other drugs, medicaments and biological substances; Z87.891 Personal history of nicotine dependence; Z79.899 Other long term (current) drug therapy; Z79.01 Long term (current) use of anticoagulants; Z79.84 Long term (current) use of oral hypoglycemic drugs; Z86.711 Personal history of pulmonary embolism; Z85.3 Personal history of malignant neoplasm of breast

== ENCOUNTER 2020-08-27 11:12 | Observation (INO) ==
[2020-08-27 12:02] LABS: Appearance Urine Clear (Clear); Bilirubin Urine Negative (Negative); Blood Urine 2+ (Negative); Color Urine Yellow; Glucose Urine UA 2+ (Negative); Ketones Urine Negative (Negative); Leukocyte Esterase Urine Negative (Negative); Nitrite Urine Negative (Negative); Protein Urine Negative (Negative); Specific Gravity Urine 1.015 (1.000-1.030); Urobilinogen Urine Negative (Negative); pH Urine 5.5 (4.5-7.5)
[2020-08-27 12:02] LABS: Hematocrit (blood only) 38.2 % (37-47); Hemoglobin 12.2 g/dL (12.0-16.0); Mean Corpuscular Hemoglobin 31.8 pg (25-34); Mean Corpuscular Hgb Conc 31.9 g/dL (32-36); Mean Corpuscular Volume 99.5 fL (80-100); Mean Platelet Volume 10.5 fL (7.4-10.4); Platelet Count 327 K/uL (130-400); RDW Coefficient of Variation 15.8 % (11.5-14.5); RDW Standard Deviation 57.2 fL (36.4-46.3); Red Blood Count 3.84 M/uL (4.2-5.4); White Blood Count 8.21 K/uL (4.8-10.8)
[2020-08-27] MEDS ORDERED: ONDANSETRON INJ 2 MG/ML 2 ML VIAL IV STA (12:21)
[2020-08-27] MEDS ORDERED: MoRPHine SULFATE 4 MG/ML 1 ML CARP\\VIAL IV STA ×2 (12:21→14:40)
[2020-08-27] MEDS ORDERED: SODIUM CHLORIDE 0.9% 1000ML 1,000 ML IV ONE (12:21)
[2020-08-27] MEDS ORDERED: ACETAMINOPHEN 1,000 MG/100 ML VIAL IV STA (12:21)
[2020-08-27 12:22] LABS: BUN Creatinine Ratio 16.7 (10-20); Blood Urea Nitrogen 14 mg/dl (7-18); Carbon Dioxide 24 mmol/L (21-32); Chloride 110 mmol/L (98-107); Est GFR (African American) 83.3 ml/min; Est GFR (Non-African American) 71.9 ml/min; Glucose 162 mg/dl (70-99); Potassium 3.7 mmol/L (3.5-5.1); Sodium 141 mmol/L (136-145)
[2020-08-27 12:30] LABS: Bacteria Urine 1+ (Negative)
[2020-08-27 13:14] LABS: Alanine Aminotransferase 20 U/L (12-78); Albumin Level 3.3 gm/dl (3.4-5.0); Alkaline Phosphatase 93 U/L (45-117); Aspartate Aminotransferase 12 U/L (15-37); Bilirubin Direct < 0.1 mg/dl (0-0.2); Bilirubin,Total 0.4 mg/dl (0.2-1); Lipase 208 U/L (73-393); Magnesium 2.1 mg/dl (1.8-2.4); Phosphorus 2.7 mg/dl (2.5-4.9); Total Protein 7.1 gm/dl (6.4-8.2)
[2020-08-27 14:00] LABS: INR 2.6 (0.9-1.1); Prothrombin Time 24.7 Seconds (9.0-12.0)
[2020-08-27] MEDS ORDERED: cefTRIAXone SODIUM 2,000 MG/70 ML BAG IV STA (14:07)
--- NOTE | 2020-08-27 16:24 | Ultrasound Report ---
US renal/blad retro comp HISTORY: 64 years-old Female renal calculi follow-up study in a patient with history of renal calcul i COMPARISON: CT abdomen and pelvis 08/26/2020 TECHNIQUE: Multiple real-time sonographic images of the kidneys and urinary bladder were obtained ass essing grayscale appearance and color flow FINDINGS: The right kidney measures 10.7 cm in length. Cysts of the right kidney measure up to 4.4 x 5.0 x 4.7 cm within the interpolar distribution laterally. Right-sided renal calculi measure up to 8 mm within the interpolar distribution. No right-sided hydronephrosis. The left kidney measures 10.4 cm in length. Cyst of the superior pole left kidney measures 2.1 x 2.0 x 1.8 cm. No left-sided renal calculi or hydronephrosis. Unremarkable urinary bladder. Ureteral jets not identified. IMPRESSION: 1. Right nephrolithiasis without hydronephrosis. 2. Bilateral renal cysts. ACT 112: Negative or not required by law. The above report was generated using voice recognition software. It may contain grammatical, syntax o r spelling errors. Electronically signed by: Pavel Morrissey M.D. 08/27/2020 4:23 PM
--- NOTE | 2020-08-27 16:51 | History & Physical Report ---
Date of Service August 27, 2020 Assessment & Plan (1) Back pain: (2) Renal calculi: (3) Complicated UTI (urinary tract infection): -Admit to [facility] -Patient presenting by referral of PCPs office for evaluation of back pain and renal calculi -Had outpatient CT ABD/pelvis yesterday that showed Right renal pelvis 10 x 10 mm calculus. No associated inflammatory changes are appreciated. Nonobstructing right renal lower pole 4 mm calculus. Bilateral renal water density lesions, not fully characterized but most likely cysts. A right renal lower pole exophytic 31 mm mass is present, indeterminate density, with proteinaceous cyst not distinguished from solid neoplasm. MRI is recommended for characterization. -Even though patient has heavy stone burden on the right, her pain is located in the left flank and left thoracic back -UA suggest UTI however patient does not appear septic. Received IV ceftriaxone in the ED, continue with -Renal ultrasound -Urology consult, case discussed with Isabella MORALES -Thoracic spine x-ray -consider further imaging if unrevealing for source of pain -will need outpatient renal MRI to follow-up right renal lower pole mass noted on outpatient CT ABD/pelvis (4) Elevated lactic acid level: -Lactic acid 2.8 -Does not appear septic, likely due to mild dehydration -IVF, hold home furosemide, repeat lactic acid (5) Diarrhea: -Patient attributes this to underlying IBS -Check stool culture and C. difficile (6) PSVT (paroxysmal supraventricular tachycardia): -Continue verapamil (7) Asthma: -No signs of acute exacerbation, continue home inhalers (8) Diabetes mellitus, type 2: -Hgb A1c 6.7 04/2020 -Hold oral agents and utilize NovoLog per protocol while hospitalized (9) Pulmonary embolism: (10) Deep vein thrombosis: -History of, anticoagulated on Coumadin -INR 2.6 (11) Lymphedema: -Hold Lasix for today while receiving IVF for UTI and mild lactic acidosis (12) Sleep apnea: -CPAP as per home settings (13) DVT prophylaxis: -Anticoagulated on Coumadin with therapeutic INR History of Present Illness Chief Complaint: Back pain Primary Care Provider: Landon Quiles DO 64-year-old female PMH DM type II, LORE on CPAP, asthma, HTN, paroxysmal SVT, seronegative polyarthritis, fibromyalgia, history of breast cancer, history of DVT and pulmonary embolism anticoagulated on Coumadin, and other problems listed below who presents to the ED by referral of PCP for evaluation of back pain and renal calculi. Patient reports ongoing left-sided thoracic and flank pain for the past 6 to 8 weeks. Pain has acutely worsened in the past few days. Reports that she previously was having episodes of pain however pain is now constant. She had been seeing a chiropractor routinely without improvement in her pain. Patient had an outpatient CT ABD/pelvis yesterday that showed right renal pelvis 10 x 10 mm calculus and nonobstructing right renal pole 4 mm calculus. Patient reports having chills however no fever. She feels like her urine output has decreased and she has had some mild hematuria. Denies dysuria. Reports nausea however no vomiting. Has been having diarrhea that she attributes to her IBS. No bright red bleeding per rectum or dark tarry stools. Denies abdominal pain. No chest pain or shortness of breath. Reports intermittent episodes of lighthe adedness and dizziness however no syncopal event. Has chronic lower extremity edema from lymphedema which is unchanged from baseline. In the ED, patient is hemodynamically stable, afebrile, no leukocytosis. UA suggest possible UTI. Lactic acid 2.8. Patient received IV Tylenol, IV ceftriaxone, 2 doses of IV morphine, IV Zofran, IVF. Allergies Allergy/AdvReac Type Severity Reaction Status Date / Time codeine Allergy Intermediate PRURITUS, Verified 08/27/20 14:06 RASH gabapentin Allergy Intermediate ARMS, LEGS Verified 08/27/20 14:06 SWELLING aloe vera [From Vagisil] Allergy Mild Rash Verified 08/27/20 14:06 amitriptyline Allergy Mild ARMS, LEGS Verified 08/27/20 14:06 SWELLING benzocaine [From Vagisil] Allergy Mild Rash Verified 08/27/20 14:06 doxepin Allergy Mild ARMS, LEGS Verified 08/27/20 14:06 SWELLING hyoscyamine Allergy Mild ARMS, LEGS Verified 08/27/20 14:06 SWELLING mineral oil [From Vagisil] Allergy Mild Rash Verified 08/27/20 14:06 nickel Allergy Mild RASH Verified 08/27/20 14:06 potassium chloride Allergy Mild PRURITUS, Verified 08/27/20 14:06 [From Klor-Con] RASH resorcinol [From Vagisil] Allergy Mild Rash Verified 08/27/20 14:06 sitagliptin Allergy Mild ARMS, LEGS Verified 08/27/20 14:06 SWELLING starch [From Vagisil] Allergy Mild Rash Verified 08/27/20 14:06 vitamin E (d-alpha Allergy Mild Rash Verified 08/27/20 14:06 tocopherol) [From Vagisil] vitamins A and D Allergy Mild Rash Verified 08/27/20 14:06 [From Vagisil] adhesive AdvReac Intermediate Tape - Verified 08/27/20 14:06 rash/itching erythromycin base AdvReac Intermediate SHIRT CLOSER Verified 08/27/20 14:06 STOMACH CRAMPS Tricyclic Antidepressants Allergy Intermediate ARMS, LEGS Uncoded 08/27/20 14:06 SWELLING Home Medications Medication Instructions Recorded Confirmed Type Spiriva with HandiHaler 1 cap INHALATION HS 11/09/17 08/27/20 History aspirin 81 mg PO QAM 11/09/17 08/27/20 History atorvastatin 20 mg PO QDD 11/09/17 08/27/20 History fluticasone propion-salmeterol 1 inh INHALATION BID 11/09/17 08/27/20 History [Advair Diskus] levalbuterol HCl 1 dose INHALATION DAILY PRN 11/09/17 08/27/20 History metformin 1,000 mg PO BIDM 11/09/17 08/27/20 History metoprolol tartrate 12.5 mg PO BIDM 11/09/17 08/27/20 History montelukast [Singulair] 10 mg PO QDD 11/09/17 08/27/20 History oxycodone 5 mg PO BID 11/09/17 08/27/20 History potassium chloride 20 meq PO BID 11/09/17 08/27/20 History potassium citrate 10 meq PO BID 11/09/17 08/27/20 History warfarin 5 mg PO 4XWK 11/09/17 08/27/20 History Probiotic Digestive Care 2 tab PO QAM 06/29/18 08/27/20 History magnesium chloride 128 mg PO QDD 01/08/19 08/27/20 History magnesium chloride 192 mg PO AMHS 01/08/19 08/27/20 History Multivitamin Women 50 Plus 1 tab PO QAM 01/10/19 08/27/20 History acetaminophen [Tylenol] 650 mg PO HS 02/13/19 08/27/20 History biotin 30 mg PO QAM 02/13/19 08/27/20 History cyanocobalamin (vitamin B-12) 500 mcg PO BID 02/13/19 08/27/20 History [Vitamin B-12] lansoprazole 30 mg PO QAM 02/13/19 08/27/20 History medroxyprogesterone 10 mg PO QAM 02/13/19 08/27/20 History ropinirole 0.5 mg PO HS PRN 02/13/19 08/27/20 History empagliflozin [Jardiance] 10 mg PO DAILY 08/27/20 08/27/20 History escitalopram oxalate 20 mg PO QAM 08/27/20 08/27/20 History ferrous sulfate 325 mg PO BID 08/27/20 08/27/20 History furosemide 20 mg PO DAILY 08/27/20 08/27/20 History leucovorin calcium 5 mg PO WK 08/27/20 08/27/20 History methotrexate sodium 17.5 mg SUBCUT WK 08/27/20 08/27/20 History semaglutide [Ozempic] 1 mg SUBCUT WK 08/27/20 08/27/20 History verapamil 120 mg PO TID 08/27/20 08/27/20 History warfarin 7.5 mg PO 3XWK 08/27/20 08/27/20 History Past Med/Surg History Medical History Asthma stable Atrial fibrillation on warfarin Breast cancer "Abnormal left breast mammogram 07/24/2010 Ultrasound-guided biopsy with finding of invasive adenocarcinoma Estrogen receptor negative, progesterone receptor negative, HER-2/mario negative Family history with genetic testing positive for BRCA1 mutation Status post bilateral mastectomies left breast stage pT3 pN2a M0 Immediate breast reconstruction with bilateral tissue expanders Removal of left tissue erp business analyst due to infection November 2010 Removal of right breast tissue erp business analyst due to infection December 2010 Status post chemotherapy with TAC Status post completion of radiation therapy 09/15/2011 received 6120 cGy" Chronic kidney disease (CKD) Chronic obstructive pulmonary disease stable Deep vein thrombosis 20 years ago - RLE post injury Degenerative disc disease Depression Diabetes mellitus, type 2 NIDDM Diverticulitis Fibromyalgia Gastroparesis GERD (gastroesophageal reflux disease) controlled History of breast cancer s/p B/L mastectomy + chemo/radiation History of kidney stones Hyperlipidemia Hypertension Limb alert care status LUE restricted - NO BP/IV/Needle sticks Lymphedema B/L LE Migraine Morbid obesity with BMI of 40.0-44.9, adult Nausea and vomiting after administration of anesthetic agent Neuropathy feet--severe to both legs/feet--uses assistive devices including mobilized wheelchair Osteoarthritis PSVT (paroxysmal supraventricular tachycardia) Pulmonary embolism 05/2017 Raynauds phenomenon Restless leg syndrome Restless legs syndrome Sleep apnea CPAP Surgical History H/O bilateral salpingo-oophorectomy H/O breast reconstruction History of bilateral mastectomy LEFT ARM RESTRICTION History of breast biopsy History of carpal tunnel release History of cholecystectomy History of D&C History of difficult intubation Hx glidescope intubation: 11/25/17: Grade 1 view with glidescope#3, ETT 7.0 (small mouth opening) History of exploratory laparotomy History of gynecological procedure mirena placed with D&C 11/24/18 History of herniorrhaphy UMBILICAL WITH MESH History of vascular access device MEDIPORT (RIGHT CHEST) Hx of foot surgery LEFT Family History Brother Family history of diabetes mellitus Father Family history of diabetes mellitus Mother Family history of diabetes mellitus Social History Smoking Status: Former smoker Smoking End Date: 36 yrs ago; Second Hand Exposure: No; Hx Alcohol Use: No Hx Substance Use: No Preferred Language: Armenian Communication Ability: Effective Furniture Painter Required: No Beliefs That Will Affect Care: None Current Living Situation: Spouse Current Living Situation Comment: raised ranch home, stair lift , ramp in place Other Information That Helps Us Care for You: No Feels Safe at Home: Yes Safety Concerns: Feels Safe At This Time Assistive Devices: CPAP and Glasses Assistive Devices Comment: at bedside Review of Systems Review of Systems: ROS per HPI, all other systems reviewed and negative Physical Exam Physical Exam: Please refer to Dr. Shepard's addendum for physical exam. Results & Data Results & Data ([facility]) Vital Signs (Past 12 Hours) Vital Signs Temp Pulse Pulse Resp BP BP Pulse Ox 08/27/20 16:39 84 18 134/88 99 08/27/20 16:30 86 08/27/20 16:10 90 08/27/20 15:32 98 08/27/20 15:30 119/82 98 08/27/20 15:00 87 18 143/60 H 08/27/20 14:30 84 23 142/69 H 97 08/27/20 14:06 101 H 21 08/27/20 14:01 128/74 08/27/20 14:00 91 H 18 08/27/20 13:30 90 20 147/77 H 98 08/27/20 13:00 86 20 133/75 97 08/27/20 12:59 87 21 97 08/27/20 12:30 87 21 139/77 98 08/27/20 11:55 88 20 128/63 97 08/27/20 11:14 36.0 C L 92 H 20 140/70 99 Laboratory Results Short CBC 08/27/20 Range/Units 11:48 WBC 8.21 (4.8-10.8) K/uL Hgb 12.2 (12.0-16.0) g/dL Hct 38.2 (37-47) % Plt Count 327 (130-400) K/uL BMP 08/27/20 11:48 Sodium 141 Potassium 3.7 Chloride 110 H Carbon Dioxide 24 BUN 14 Creatinine 0.86 Glucose 162 H Calcium 9.0 Liver Function 08/27/20 Range/Units 11:48 Total Bilirubin 0.4 (0.2-1) mg/dl Direct Bilirubin < 0.1 (0-0.2) mg/dl AST 12 L (15-37) U/L ALT 20 (12-78) U/L Alkaline Phosphatase 93 (45-117) U/L Albumin 3.3 L (3.4-5.0) gm/dl Urine 08/27/20 Range/Units 11:30 Urine Color Yellow Urine Appearance Clear (Clear) Urine pH 5.5 (4.5-7.5) Ur Specific [place] 1.015 (1.000-1.030) Urine Protein Negative (Negative) Urine Glucose (UA) 2+ H (Negative) Diagnostic Findings Renal Ultrasound 08/27/20 15:18 US renal/blad retro comp HISTORY: 64 years-old Female renal calculi follow-up study in a patient with history of renal calculi COMPARISON: CT abdomen and pelvis 08/26/2020 TECHNIQUE: Multiple real-time sonographic images of the kidneys and urinary bladder were obtained assessing grayscale appearance and color flow FINDINGS: The right kidney measures 10.7 cm in length. Cysts of the right kidney measure up to 4.4 x 5.0 x 4.7 cm within the interpolar distribution laterally. Right- sided renal calculi measure up to 8 mm within the interpolar distribution. No right-sided hydronephrosis. The left kidney measures 10.4 cm in length. Cyst of the superior pole left kidney measures 2.1 x 2.0 x 1.8 cm. No left-sided renal calculi or hydronephrosis. Unremarkable urinary bladder. Ureteral jets not identified. IMPRESSION: 1. Right nephrolithiasis without hydronephrosis. 2. Bilateral renal cysts. ACT 112: Negative or not required by law. The above report was generated using voice recognition software. It may contain grammatical, syntax or spelling errors. Electronically signed by: Pavel Morrissey M.D. 08/27/2020 4:23 PM Code Status & VTE Plan VTE Prophylaxis Plan VTE Prophylaxis will be ordered: No Supervising Physician Co-Signing Physician Notes Patient is a 64-year-old female with history of diabetes mellitus, hypertension, fibromyalgia, history of breast cancer and other medical problems presents with history of midthoracic back pain, left flank pain which she attributes to nephrolithiasis. She denies any renu hematuria, fever. But she admits to having chills, dizziness, nausea. Symptoms have been going on for last several weeks. Outpatient CT suggestive of nonobstructive right renal calculus. She also states having ongoing diarrhea intermittently. Please review HPI for complete details of presentation. Renal ultrasound showed right nephrolithiasis without hydronephrosis, bilateral renal cysts. Thoracic x-ray is pending currently. Urine analysis suggestive of possible UTI. Physical Exam: Vitals signs as noted above General Appearance:Morbidly Obese, no apparent distress Head: normocephalic, Atraumatic Eyes: normal inspection, EOMI Neck: supple, Trachea midline Respiratory/Chest: Normal breath sounds, CTA, No accessory muscle use, +R chemo port Cardiovascular: S1, S2, No murmur Abdomen/GI:Soft, Non tender, Bowel sounds present, L flank tender Back: Left Thoracic paravertebral tender Extremities/Musculoskeletal:normal inspection, no edema Neurologic/Psych:AAOX3, grossly no focal neurological deficits Skin:normal color,warm Complicated UTI Nephrolithiasis Back pain likely musculoskeletal origin Lactic Acidosis: Likely secondary to Metformin use Diarrhea likely due to irritable bowel syndrome Renal ultrasound showed right nephrolithiasis without hydronephrosis, bilateral renal cyst--likely not the origin for left flank pain Blood, urine cultures obtained. Agree with starting Rocephin, IVF Will hold Metformin Check Stool studies Thoracic spine x ray pending Continue Coumadin for anticoagulation Monitor INR I personally reviewed the record. Patient is interviewed and examined at bedside. Patient's care is coordinated with Ashley Giron PHYSICAL CHEMISTRY PROFESSOR. Please refer to the documentation above for details of patient's presentation and for discussion of other issues.
[2020-08-27] MEDS ORDERED: ATORVASTATIN 20 MG TAB PO SCH (17:00)
[2020-08-27] MEDS ORDERED: MAGNESIUM CHLORIDE 64MG DELAYED REL TAB PO SCH (17:00)
[2020-08-27] MEDS ORDERED: MONTELUKAST SODIUM 10 MG TABLET PO SCH (17:00)
[2020-08-27] MEDS ORDERED: ONDANSETRON INJ 2 MG/ML 2 ML VIAL IV PRN (17:00)
[2020-08-27] MEDS ORDERED: MoRPHine SULFATE 4 MG/ML 1 ML CARP\\VIAL IV PRN (17:00)
[2020-08-27 17:02] VITALS: O2SAT 95
[2020-08-27] MEDS ORDERED: WARFARIN SOD 5 MG TAB PO SCH (17:30)
[2020-08-27] MEDS: SODIUM CHLORIDE 0.9% 1000ML 1,000 ML IV SCH (17:36)
[2020-08-27] MEDS ORDERED: FAMOTIDINE 10 MG TABLET PO PRN (17:38)
[2020-08-27] MEDS: METOPROLOL TARTRATE 25 MG TAB PO SCH (17:48)
[2020-08-27] MEDS ORDERED: GLUCOSE 10 TABS/TUBE PO PRN (18:00)
[2020-08-27] MEDS ORDERED: GLUCAGON FOR INJ 1 MG VIAL SQ PRN (18:00)
[2020-08-27] MEDS ORDERED: GLUCOSE 40% GEL 15 GM TUBE PO PRN (18:00)
[2020-08-27] MEDS ORDERED: DEXTROSE 50% 50 ML SYRINGE IV PRN (18:00)
[2020-08-27] MEDS ORDERED: CARBOHYDRATES FOR HYPOGLYCEMIA PO PRN (18:00)
[2020-08-27] MEDS ORDERED: WARFARIN SOD 7.5 MG TAB PO SCH (18:00)
[2020-08-27] MEDS ORDERED: MoRPHine SULFATE 2 MG/ML CARP IV PRN (18:03)
[2020-08-27] MEDS: CALCIUM CARBONATE 500 MG CHEWABLE TAB PO PRN (18:09)
--- NOTE | 2020-08-27 19:21 | Emergency Department Note ---
Impression & Plan Complicated UTI (urinary tract infection), Renal calculi, Left flank pain ED Provider Note NAME: CHANDNI CORDERO AGE: 64 SEX: F ARRIVES VIA: Walk-In INFORMANT: Patient, ED PROVIDER(S): Panchito Syed MD CHIEF COMPLAINT: Left flank pain, referred. PLAN: Disposition: Admit. MEDICAL DECISION MAKING: The patient is a pleasant 64-year-old woman with a past medical history of pulmonary embolism on Coumadin, type 2 diabetes, fibromyalgia who presents emergency department referred from her PCPs office for worsening low back pain which she reports has been ongoing for the past 7 weeks or more and her understanding is that she had an outpatient CT scan that demonstrated a kidney stone that was causing obstruction and "fluid around her kidney" however the formal report was pending. The patient reports her pain is on the left side/ flank and lower abdomen. She ports this has been worsening over the past several weeks and is felt nauseated secondary to the pain. She denies any fevers, cough congestion, diarrhea. She denies any burning with urination, blood in her urine. Review of the [facility] PCP note documents concern for history of "urosepsis". On arrival the patient is chronically ill-appearing uncomfortable but no acute distress, afebrile with stable vital signs. On exam patient has mild left flank/abdominal discomfort without discrete tenderness. She has no guarding or rebound. WBC, H/H and platelets within normal limits. Chemistry without metabolic acidosis. Electrolytes LFTs are unremarkable. Lipase is not elevated. UA is suspicious for infection with WBCs and 1+ bacteria albeit with epithelial cells present. We were able to obtain the CT report from the [facility] records which documents only right-sided findings with large right renal pelvis stone but without obstructive changes. There are no left-sided obstructive renal or ureteral stones. Thus, the patient's symptoms were not related to renal colic. However, given the patient's report of increasing pain in setting of UTI there may be a component of upper infection. Blood cultures were drawn and the patient was treated with initial dose of ceftriaxone. She is in agreement with plan for admission given her worsening symptoms. Case was discussed with Alberto Moss, with Dr. Drea Dominguez hospitalist who will evaluate the patient for admission. Triage Nursing notes reviewed and agree them. Additional history obtained from [facility] records. Prior medical records reviewed Vital Signs: reviewed and remarkable for no significant abnormalities Differential diagnosis: Renal colic, UTI, appendicitis, diverticulitis, mesenteric ischemia, aortic pathology, infections, inflammatory bowel disease, PUD, biliary pathology, as well as other pathologies. ER treatment provided: See below. Diagnostics interpreted by me: Cardiac Monitoring: An order for continuous cardiac monitoring was placed and demonstrated NSR, 87 bpm, no ectopy. Laboratory studies: See below Imaging studies: See below Consultation(s): Alberto Moss, with [facility] hospitalist who will evaluate the patient for admission. HPI: The patient is a pleasant 64-year-old woman with a past medical history of pulmonary embolism on Coumadin, type 2 diabetes, fibromyalgia who presents emergency department referred from her PCPs office for worsening low back pain which she reports has been ongoing for the past 7 weeks or more and her understanding is that she had an outpatient CT scan that demonstrated a kidney stone that was causing obstruction and "fluid around her kidney" however the formal report was pending. The patient reports her pain is on the left side/flank and lower abdomen. She ports this has been worsening over the past several weeks and is felt nauseated secondary to the pain. She denies any fevers, cough congestion, diarrhea. She denies any burning with urination, blood in her urine. Review of the [facility] PCP note documents concern for history of "urosepsis". ROS: See above HPI for pertinent positives & negatives. A total of 10 systems reviewed and were otherwise negative. PAST MEDICAL HISTORY:See Below PAST SURGICAL HISTORY:See Below FAMILY HISTORY:See Below SOCIAL HISTORY:See Below HOME MEDICATIONS:See Below ALLERGIES:See Below VITALS:See Below PHYSICAL EXAMINATION: GENERAL: Awake, alert, likely ill/fatigued-appearing, in no distress, BMI 42.2 HENT: Normocephalic, atraumatic. Oropharynx unremarkable. EYES: Normal conjunctiva. Sclera non-icteric. NECK: Supple. No nuchal rigidity. FROM. No JVD. RESPIRATORY: Clear to auscultation. CARDIAC: Regular rate, normal rhythm. Extremities warm and well perfused. Pulses equal. ABDOMEN: Soft, non-distended. Mild flank and left lower quadrant discomfort without discrete tenderness to palpation. No rebound or guarding. No masses. RECTAL: Deferred. MUSCULOSKELETAL: Chest examination reveals no tenderness. The back is symmetrical on inspection without obvious abnormality. There is no CVA tenderness to palpation. No joint edema. LOWER EXTREMITIES: Calves are equal size bilaterally and non-tender. No edema. No discoloration. NEURO: Normal sensorium. No sensory or motor deficits noted. SKIN: No rash or jaundice noted. Panchito Syed MD Past Med/Surg History Medical History Asthma stable Atrial fibrillation on warfarin Breast cancer "Abnormal left breast mammogram 07/24/2010 Ultrasound-guided biopsy with finding of invasive adenocarcinoma Estrogen receptor negative, progesterone receptor negative, HER-2/mraio negative Family history with genetic testing positive for BRCA1 mutation Status post bilateral mastectomies left breast stage pT3 pN2a M0 Immediate breast reconstruction with bilateral tissue expanders Removal of left tissue computer aided design operator due to infection November 2010 Removal of right breast tissue computer aided design operator due to infection December 2010 Status post chemotherapy with TAC Status post completion of radiation therapy 09/15/2011 received 6120 cGy" Chronic kidney disease (CKD) Chronic obstructive pulmonary disease stable Deep vein thrombosis 20 years ago - RLE post injury Degenerative disc disease Depression Diabetes mellitus, type 2 NIDDM Diverticulitis Fibromyalgia Gastroparesis GERD (gastroesophageal reflux disease) controlled History of breast cancer s/p B/L mastectomy + chemo/radiation History of kidney stones Hyperlipidemia Hypertension Limb alert care status LUE restricted - NO BP/IV/Needle sticks Lymphedema B/L LE Migraine Morbid obesity with BMI of 40.0-44.9, adult Nausea and vomiting after administration of anesthetic agent Neuropathy feet--severe to both legs/feet--uses assistive devices including mobilized wheelchair Osteoarthritis PSVT (paroxysmal supraventricular tachycardia) Pulmonary embolism 05/2017 Raynauds phenomenon Restless leg syndrome Restless legs syndrome Sleep apnea CPAP Surgical History H/O bilateral salpingo-oophorectomy H/O breast reconstruction History of bilateral mastectomy LEFT ARM RESTRICTION History of breast biopsy History of carpal tunnel release History of cholecystectomy History of D&C History of difficult intubation Hx glidescope intubation: 11/25/17: Grade 1 view with glidescope#3, ETT 7.0 (small mouth opening) History of exploratory laparotomy History of gynecological procedure mirena placed with D&C 11/24/18 History of herniorrhaphy UMBILICAL WITH MESH History of vascular access device MEDIPORT (RIGHT CHEST) Hx of foot surgery LEFT Family History Brother Family history of diabetes mellitus Father Family history of diabetes mellitus Mother Family history of diabetes mellitus Social History Smoking Status: Former smoker Smoking End Date: 36 yrs ago; Second Hand Exposure: No; Hx Alcohol Use: No Hx Substance Use: No Preferred Language: Cuban Communication Ability: Effective Waste Reduction Coordinator Required: No Beliefs That Will Affect Care: None Current Living Situation: Spouse Current Living Situation Comment: raised ranch home, stair lift , ramp in place Other Information That Helps Us Care for You: No Feels Safe at Home: Yes Safety Concerns: Feels Safe At This Time Assistive Devices: CPAP and Glasses Assistive Devices Comment: at bedside Allergies Allergies Allergy/AdvReac Type Severity Reaction Status Date / Time codeine Allergy Intermediate PRURITUS, Verified 08/27/20 14:06 RASH gabapentin Allergy Intermediate ARMS, LEGS Verified 08/27/20 14:06 SWELLING aloe vera [From Vagisil] Allergy Mild Rash Verified 08/27/20 14:06 amitriptyline Allergy Mild ARMS, LEGS Verified 08/27/20 14:06 SWELLING benzocaine [From Vagisil] Allergy Mild Rash Verified 08/27/20 14:06 doxepin Allergy Mild ARMS, LEGS Verified 08/27/20 14:06 SWELLING hyoscyamine Allergy Mild ARMS, LEGS Verified 08/27/20 14:06 SWELLING mineral oil [From Vagisil] Allergy Mild Rash Verified 08/27/20 14:06 nickel Allergy Mild RASH Verified 08/27/20 14:06 potassium chloride Allergy Mild PRURITUS, Verified 08/27/20 14:06 [From Klor-Con] RASH resorcinol [From Vagisil] Allergy Mild Rash Verified 08/27/20 14:06 sitagliptin Allergy Mild ARMS, LEGS Verified 08/27/20 14:06 SWELLING starch [From Vagisil] Allergy Mild Rash Verified 08/27/20 14:06 vitamin E (d-alpha Allergy Mild Rash Verified 08/27/20 14:06 tocopherol) [From Vagisil] vitamins A and D Allergy Mild Rash Verified 08/27/20 14:06 [From Vagisil] adhesive AdvReac Intermediate Tape - Verified 08/27/20 14:06 rash/itching erythromycin base AdvReac Intermediate WORKDAY CONSULTANT Verified 08/27/20 14:06 STOMACH CRAMPS Tricyclic Antidepressants Allergy Intermediate ARMS, LEGS Uncoded 08/27/20 14:06 SWELLING Home Meds Home Medications Medication Instructions Recorded Confirmed Spiriva with HandiHaler 1 cap INHALATION HS 11/09/17 08/27/20 aspirin 81 mg PO QAM 11/09/17 08/27/20 atorvastatin 20 mg PO QDD 11/09/17 08/27/20 fluticasone propion-salmeterol 1 inh INHALATION BID 11/09/17 08/27/20 [Advair Diskus] levalbuterol HCl 1 dose INHALATION DAILY PRN 11/09/17 08/27/20 metformin 1,000 mg PO BIDM 11/09/17 08/27/20 metoprolol tartrate 12.5 mg PO BIDM 11/09/17 08/27/20 montelukast [Singulair] 10 mg PO QDD 11/09/17 08/27/20 oxycodone 5 mg PO BID 11/09/17 08/27/20 potassium chloride 20 meq PO BID 11/09/17 08/27/20 potassium citrate 10 meq PO BID 11/09/17 08/27/20 warfarin 5 mg PO 4XWK 11/09/17 08/27/20 Probiotic Digestive Care 2 tab PO QAM 06/29/18 08/27/20 magnesium chloride 128 mg PO QDD 01/08/19 08/27/20 magnesium chloride 192 mg PO AMHS 01/08/19 08/27/20 Multivitamin Women 50 Plus 1 tab PO QAM 01/10/19 08/27/20 acetaminophen [Tylenol] 650 mg PO HS 02/13/19 08/27/20 biotin 30 mg PO QAM 02/13/19 08/27/20 cyanocobalamin (vitamin B-12) 500 mcg PO BID 02/13/19 08/27/20 [Vitamin B-12] lansoprazole 30 mg PO QAM 02/13/19 08/27/20 medroxyprogesterone 10 mg PO QAM 02/13/19 08/27/20 ropinirole 0.5 mg PO HS PRN 02/13/19 08/27/20 empagliflozin [Jardiance] 10 mg PO DAILY 08/27/20 08/27/20 escitalopram oxalate 20 mg PO QAM 08/27/20 08/27/20 ferrous sulfate 325 mg PO BID 08/27/20 08/27/20 furosemide 20 mg PO DAILY 08/27/20 08/27/20 leucovorin calcium 5 mg PO WK 08/27/20 08/27/20 methotrexate sodium 17.5 mg SUBCUT WK 08/27/20 08/27/20 semaglutide [Ozempic] 1 mg SUBCUT WK 08/27/20 08/27/20 verapamil 120 mg PO TID 08/27/20 08/27/20 warfarin 7.5 mg PO 3XWK 08/27/20 08/27/20 Results & Data (ED) Vital Signs Vital Signs - 24 hr 08/27/20 11:14 08/27/20 11:55 08/27/20 12:30 Temperature 36.0 C L Temperature Source Temporal Artery Scan Pulse Rate 92 H 87 Pulse Rate [Apical] 88 Pulse Rate from SpO2 Sensor 87 Respiratory Rate 20 20 21 Respiratory Effort / Characteristics Non-Labored Non-Labored Spontaneous Respiratory Depth Normal Normal Respiratory Pattern Regular Blood Pressure 140/70 139/77 Blood Pressure [Right Arm] 128/63 Blood Pressure Mean 93 97 Blood Pressure Mean [Right Arm] 84 Pulse Oximetry 99 97 98 Oxygen Delivery Method Room Air Room Air Sepsis Recent Fever Within 48 Hours No Sepsis New/Unexplained Change in Mental Status N/A Sepsis Action Taken by Nursing No Action Required 08/27/20 12:59 08/27/20 13:00 08/27/20 13:30 Temperature Temperature Source Pulse Rate 87 86 90 Pulse Rate [Apical] Pulse Rate from SpO2 Sensor 87 86 90 Respiratory Rate 21 20 20 Respiratory Effort / Characteristics Respiratory Depth Respiratory Pattern Blood Pressure 133/75 147/77 H Blood Pressure [Right Arm] Blood Pressure Mean 94 100 Blood Pressure Mean [Right Arm] Pulse Oximetry 97 97 98 Oxygen Delivery Method Sepsis Recent Fever Within 48 Hours Sepsis New/Unexplained Change in Mental Status Sepsis Action Taken by Nursing 08/27/20 14:00 08/27/20 14:01 08/27/20 14:06 Temperature Temperature Source Pulse Rate 91 H 101 H Pulse Rate [Apical] Pulse Rate from SpO2 Sensor Respiratory Rate 18 21 Respiratory Effort / Characteristics Respiratory Depth Respiratory Pattern Blood Pressure 128/74 Blood Pressure [Right Arm] Blood Pressure Mean 92 Blood Pressure Mean [Right Arm] Pulse Oximetry Oxygen Delivery Method Sepsis Recent Fever Within 48 Hours Sepsis New/Unexplained Change in Mental Status Sepsis Action Taken by Nursing 08/27/20 14:30 08/27/20 15:00 08/27/20 15:30 Temperature Temperature Source Pulse Rate 84 87 Pulse Rate [Apical] Pulse Rate from SpO2 Sensor 84 90 Respiratory Rate 23 18 Respiratory Effort / Characteristics Respiratory Depth Respiratory Pattern Blood Pressure 142/69 H 143/60 H 119/82 Blood Pressure [Right Arm] Blood Pressure Mean 93 87 94 Blood Pressure Mean [Right Arm] Pulse Oximetry 97 98 Oxygen Delivery Method Sepsis Recent Fever Within 48 Hours Sepsis New/Unexplained Change in Mental Status Sepsis Action Taken by Nursing 08/27/20 15:32 Temperature Temperature Source Pulse Rate Pulse Rate [Apical] Pulse Rate from SpO2 Sensor 91 H Respiratory Rate Respiratory Effort / Characteristics Respiratory Depth Respiratory Pattern Blood Pressure Blood Pressure [Right Arm] Blood Pressure Mean Blood Pressure Mean [Right Arm] Pulse Oximetry 98 Oxygen Delivery Method Sepsis Recent Fever Within 48 Hours Sepsis New/Unexplained Change in Mental Status Sepsis Action Taken by Nursing Laboratory Data Attestation: I reviewed the patient's lab results. Result diagrams: 08/27/20 11:48 08/27/20 11:48 Lab Results 08/27/20 08/27/20 08/27/20 Range/Units 11:30 11:48 11:48 WBC 8.21 (4.8-10.8) K/uL RBC 3.84 L (4.2-5.4) M/uL Hgb 12.2 (12.0-16.0) g/dL Hct 38.2 (37-47) % MCV 99.5 (80-100) fL MCH 31.8 (25-34) pg MCHC 31.9 L (32-36) g/dL RDW Std Deviation 57.2 H (36.4-46.3) fL RDW Coeff of Maris 15.8 H (11.5-14.5) % Plt Count 327 (130-400) K/uL MPV 10.5 H (7.4-10.4) fL PT (9.0-12.0) Seconds INR (0.9-1.1) Sodium 141 (136-145) mmol/L Potassium 3.7 (3.5-5.1) mmol/L Chloride 110 H (98-107) mmol/L Carbon Dioxide 24 (21-32) mmol/L Anion Gap 7.0 (3-11) BUN 14 (7-18) mg/dl Creatinine 0.86 (0.6-1.2) mg/dl Est Cr Clr Drug Dosing Not Reportable Est GFR ( Amer) 83.3 ml/min Est GFR (Non-Af Amer) 71.9 ml/min BUN/Creatinine Ratio 16.7 (10-20) Glucose 162 H (70-99) mg/dl Lactate (0.4-2.0) mmol/L Calcium 9.0 (8.5-10.1) mg/dl Phosphorus (2.5-4.9) mg/dl Magnesium (1.8-2.4) mg/dl Total Bilirubin (0.2-1) mg/dl Direct Bilirubin (0-0.2) mg/dl AST (15-37) U/L ALT (12-78) U/L Alkaline Phosphatase (45-117) U/L Total Protein (6.4-8.2) gm/dl Albumin (3.4-5.0) gm/dl Lipase (73-393) U/L Urine Color Yellow Urine Appearance Clear (Clear) Urine pH 5.5 (4.5-7.5) Ur Specific [place] 1.015 (1.000-1.030) Urine Protein Negative (Negative) Urine Glucose (UA) 2+ H (Negative) Urine Ketones Negative (Negative) Urine Blood 2+ H (Negative) Urine Nitrite Negative (Negative) Urine Bilirubin Negative (Negative) Urine Urobilinogen Negative (Negative) Ur Leukocyte Esterase Negative (Negative) Urine RBC 10-30 H (0-4) /hpf Urine WBC 10-30 H (0-5) /hpf Ur Epithelial Cells 10-20 H (0-5) /lpf Urine Bacteria 1+ H (Negative) COVID-19 Eval Order SARS-CoV-2 (PCR) (Negative) 08/27/20 08/27/20 08/27/20 Range/Units 11:48 13:19 13:19 WBC (4.8-10.8) K/uL RBC (4.2-5.4) M/uL Hgb (12.0-16.0) g/dL Hct (37-47) % MCV (80-100) fL MCH (25-34) pg MCHC (32-36) g/dL RDW Std Deviation (36.4-46.3) fL RDW Coeff of Maris (11.5-14.5) % Plt Count (130-400) K/uL MPV (7.4-10.4) fL PT (9.0-12.0) Seconds INR (0.9-1.1) Sodium (136-145) mmol/L Potassium (3.5-5.1) mmol/L Chloride (98-107) mmol/L Carbon Dioxide (21-32) mmol/L Anion Gap (3-11) BUN (7-18) mg/dl Creatinine (0.6-1.2) mg/dl Est Cr Clr Drug Dosing Est GFR ( Amer) ml/min Est GFR (Non-Af Amer) ml/min BUN/Creatinine Ratio (10-20) Glucose (70-99) mg/dl Lactate (0.4-2.0) mmol/L Calcium (8.5-10.1) mg/dl Phosphorus 2.7 (2.5-4.9) mg/dl Magnesium 2.1 (1.8-2.4) mg/dl Total Bilirubin 0.4 (0.2-1) mg/dl Direct Bilirubin < 0.1 (0-0.2) mg/dl AST 12 L (15-37) U/L ALT 20 (12-78) U/L Alkaline Phosphatase 93 (45-117) U/L Total Protein 7.1 (6.4-8.2) gm/dl Albumin 3.3 L (3.4-5.0) gm/dl Lipase 208 (73-393) U/L Urine Color Urine Appearance (Clear) Urine pH (4.5-7.5) Ur Specific [place] (1.000-1.030) Urine Protein (Negative) Urine Glucose (UA) (Negative) Urine Ketones (Negative) Urine Blood (Negative) Urine Nitrite (Negative) Urine Bilirubin (Negative) Urine Urobilinogen (Negative) Ur Leukocyte Esterase (Negative) Urine RBC (0-4) /hpf Urine WBC (0-5) /hpf Ur Epithelial Cells (0-5) /lpf Urine Bacteria (Negative) COVID-19 Eval Order Covid19 at [facility] SARS-CoV-2 (PCR) NEGATIVE (Negative) 08/27/20 08/27/20 Range/Units 13:36 14:58 WBC (4.8-10.8) K/uL RBC (4.2-5.4) M/uL Hgb (12.0-16.0) g/dL Hct (37-47) % MCV (80-100) fL MCH (25-34) pg MCHC (32-36) g/dL RDW Std Deviation (36.4-46.3) fL RDW Coeff of Maris (11.5-14.5) % Plt Count (130-400) K/uL MPV (7.4-10.4) fL PT 24.7 H (9.0-12.0) Seconds INR 2.6 H (0.9-1.1) Sodium (136-145) mmol/L Potassium (3.5-5.1) mmol/L Chloride (98-107) mmol/L Carbon Dioxide (21-32) mmol/L Anion Gap (3-11) BUN (7-18) mg/dl Creatinine (0.6-1.2) mg/dl Est Cr Clr Drug Dosing Est GFR ( Amer) ml/min Est GFR (Non-Af Amer) ml/min BUN/Creatinine Ratio (10-20) Glucose (70-99) mg/dl Lactate 2.8 H* (0.4-2.0) mmol/L Calcium (8.5-10.1) mg/dl Phosphorus (2.5-4.9) mg/dl Magnesium (1.8-2.4) mg/dl Total Bilirubin (0.2-1) mg/dl Direct Bilirubin (0-0.2) mg/dl AST (15-37) U/L ALT (12-78) U/L Alkaline Phosphatase (45-117) U/L Total Protein (6.4-8.2) gm/dl Albumin (3.4-5.0) gm/dl Lipase (73-393) U/L Urine Color Urine Appearance (Clear) Urine pH (4.5-7.5) Ur Specific [place] (1.000-1.030) Urine Protein (Negative) Urine Glucose (UA) (Negative) Urine Ketones (Negative) Urine Blood (Negative) Urine Nitrite (Negative) Urine Bilirubin (Negative) Urine Urobilinogen (Negative) Ur Leukocyte Esterase (Negative) Urine RBC (0-4) /hpf Urine WBC (0-5) /hpf Ur Epithelial Cells (0-5) /lpf Urine Bacteria (Negative) COVID-19 Eval Order SARS-CoV-2 (PCR) (Negative) Administered Medications Atorvastatin Calcium (Atorvastatin 20 Mg Tab) 20 mg PO QDD [facility] Stop: 09/26/20 16:59 Last Admin: 08/27/20 17:46 Dose: 20 mg Documented by: [id number] Calcium Carbonate (Calcium Carbonate 500 Mg Chewable Tab) 1,000 mg PO Q8H PRN PRN Reason: Indigestion Stop: 09/26/20 17:37 Last Admin: 08/27/20 18:09 Dose: 1,000 mg Documented by: [id number] Sodium Chloride (Nss 1000ml) 1,000 mls @ 80 mls/hr IV .[id number] [facility] Stop: 09/26/20 16:59 Last Admin: 08/27/20 17:36 Dose: 80 mls/hr Documented by: [id number] Magnesium Chloride (Magnesium Chloride 64mg Delayed Rel Tab) 128 mg PO QDD [facility] Stop: 09/26/20 16:59 Last Admin: 08/27/20 17:46 Dose: 128 mg Documented by: [id number] Metoprolol Tartrate (Metoprolol Tartrate 25 Mg Tab) 12.5 mg PO BIDM [facility] Stop: 09/26/20 16:59 Last Admin: 08/27/20 17:48 Dose: 12.5 mg Documented by: [id number] Montelukast Sodium (Montelukast Sodium 10 Mg Tablet) 10 mg PO QDD [facility] Stop: 09/26/20 16:59 Last Admin: 08/27/20 17:47 Dose: 10 mg Documented by: [id number] Discontinued Medications Sodium Chloride (Nss 1000ml) 1,000 mls @ 999 mls/hr IV .[id number] ONE Stop: 08/27/20 13:21 Last Infusion: 08/27/20 14:14 Dose: 0 mls/hr Documented by: [id number] Admin: 08/27/20 13:10 Dose: 999 mls/hr Documented by: [id number] Acetaminophen (Ofirmev) 1,000 mg in 100 mls @ 400 mls/hr IV NOW STA Stop: 08/27/20 12:35 Last Infusion: 08/27/20 13:27 Dose: 0 mls/hr Documented by: [id number] Admin: 08/27/20 13:11 Dose: 400 mls/hr Documented by: [id number] Ceftriaxone Sodium (Rocephin) 2,000 mg in 70 mls @ 140 mls/hr IV NOW STA Stop: 08/27/20 14:36 Last Infusion: 08/27/20 15:47 Dose: 140 mls/hr Documented by: [id number] Admin: 08/27/20 15:14 Dose: 140 mls/hr Documented by: [id number] Morphine Sulfate (Morphine Sulfate 4 Mg/Ml 1 Ml Carp\\Vial) 4 mg IV NOW STA Stop: 08/27/20 12:22 Last Admin: 08/27/20 13:10 Dose: 4 mg Documented by: [id number] Morphine Sulfate (Morphine Sulfate 4 Mg/Ml 1 Ml Carp\\Vial) 4 mg IV NOW STA Stop: 08/27/20 14:41 Last Admin: 08/27/20 15:13 Dose: 4 mg Documented by: [id number] Ondansetron HCl (Ondansetron Inj 2 Mg/Ml 2 Ml Vial) 4 mg IV NOW STA Stop: 08/27/20 12:22 Last Admin: 08/27/20 13:10 Dose: 4 mg Documented by: [id number] Warfarin Sodium (Warfarin Sod 5 Mg Tab) 5 mg PO [id number] JIM Stop: 09/26/20 15:59 Last Admin: 08/27/20 18:59 Dose: Not Given Documented by: [id number] Imaging Data Radiologist's Impression: Renal Ultrasound 08/27/20 15:18 US renal/blad retro comp HISTORY: 64 years-old Female renal calculi follow-up study in a patient with history of renal calculi COMPARISON: CT abdomen and pelvis 08/26/2020 TECHNIQUE: Multiple real-time sonographic images of the kidneys and urinary b ladder were obtained assessing grayscale appearance and color flow FINDINGS: The right kidney measures 10.7 cm in length. Cysts of the right kidney measure up to 4.4 x 5.0 x 4.7 cm within the interpolar distribution laterally. Right- sided renal calculi measure up to 8 mm within the interpolar distribution. No right-sided hydronephrosis. The left kidney measures 10.4 cm in length. Cyst of the superior pole left kidney measures 2.1 x 2.0 x 1.8 cm. No left-sided renal calculi or hydronephrosis. Unremarkable urinary bladder. Ureteral jets not identified. IMPRESSION: 1. Right nephrolithiasis without hydronephrosis. 2. Bilateral renal cysts. ACT 112: Negative or not required by law. The above report was generated using voice recognition software. It may contain grammatical, syntax or spelling errors. Electronically signed by: Pavel Morrissey M.D. 08/27/2020 4:23 PM Discharge Plan Visit Data Chief Complaint: Kidney Stone Stated Complaint: INFLAMMED KIDNEY, FLUID AROUND KIDNEY ED Provider: Panchito Syed Discharge Problem: Complicated UTI (urinary tract infection), Renal calculi, Left flank pain Patient Disposition: Admitted As Inpatient Discharge Instructions Interventions: ED Discharge Assessment Last Done: 08/27/20 16:36
[2020-08-27] MEDS: FERROUS SULFATE 325 MG TAB PO SCH (19:54)
[2020-08-27] MEDS: VERAPAMIL HCL 120 MG TABCR PO SCH (19:54)
[2020-08-27] MEDS: CYANOCOBALAMIN 500 MCG TABLET (VITAMIN B-12) PO SCH (19:54)
[2020-08-27] MEDS: oxyCODONE HCL IR 5 MG TAB (IMMEDIATE RELEASE) PO SCH ×2 (19:54→23:56)
[2020-08-27] MEDS: MAGNESIUM CHLORIDE 64MG DELAYED REL TAB PO SCH (19:55)
--- NOTE | 2020-08-27 20:08 | Urology Consultation ---
Date of Consultation August 27, 2020 Assessment & Plan (1) Renal calculi: Patient has been admitted to the hospital by the hospital service proceeding as follows: Provide analgesics Provide antiemetics Hydration with IV fluids As appears the patient does have a urinary tract infection she has been placed on antibiotics in form of Rocephin which should continue. Both blood and urine cultures have been obtained and will follow for results of these changing antibiotics as indicated by cultures At the present time the patient does not appear septic and he does not appear acutely or neurologic intervention is required at this time -We will check a KUB in the morning We will make the patient n.p.o. in the event that a cystoscopy is required tomorrow History of Present Illness Reason for Consultation: Nephrolithiasis Attending Physician: Miguel A Shepard MD History of Present Illness Is a 64-year-old female presented to [facility] emergency department secondary to back pain. Patient says that she has been having ongoing back pain mostly on the left flank region for approximately 6 to 8 w eeks. The patient says that she felt as though this was musculoskeletal and she has been seeing chiropractor with no avail to her symptoms. She notes that the pain has gotten worse over the past few days and for this reason she saw her primary care team had an outpatient CT scan of the abdomen pelvis yesterday at [facility] [address] that showed a right renal pelvis kidney stone measuring 10 x 10 mm. She was also noted to have a right renal pole full 4 mm calculus. Patient denies any fevers but does note occasional chills. She does not have any nausea or vomiting. She denies any abdominal pain. Interestingly she does not have pain on her right side. Patient notes that she does have kidney stones in the past requiring lithotripsy. She denies any cough. She denies any shortness of breath or chest pain. Because of her symptoms and CT scan findings she has been admitted by the hospitalist Since arrival to [facility] she had labs and imaging which I dependently reviewed. She did have a renal ultrasound that showed the right- sided nephrolithiasis without hydronephrosis noted on the previously noted CT scan. Patient did have a CBC where her white blood cell count, hemoglobin, hematocrit, and platelet count were all within normal range. Chemistry profile showed that her sodium, potassium, BUN, and creatinine were within normal range. Patient did have an elevated lactic acid level at 3.1. A urinalysis did show negative nitrites and negative leukocyte Estrace but she did have 10-30 white blood cells per high-power field and 1+ bacteria. A Covid test was performed and was negative At the time of my interview the patient was resting comfortably in bed. Her pain was well controlled and she was in no distress. Allergies Allergy/AdvReac Type Severity Reaction Status Date / Time codeine Allergy Intermediate PRURITUS, Verified 08/27/20 14:06 RASH gabapentin Allergy Intermediate ARMS, LEGS Verified 08/27/20 14:06 SWELLING aloe vera [From Vagisil] Allergy Mild Rash Verified 08/27/20 14:06 amitriptyline Allergy Mild ARMS, LEGS Verified 08/27/20 14:06 SWELLING benzocaine [From Vagisil] Allergy Mild Rash Verified 08/27/20 14:06 doxepin Allergy Mild ARMS, LEGS Verified 08/27/20 14:06 SWELLING hyoscyamine Allergy Mild ARMS, LEGS Verified 08/27/20 14:06 SWELLING mineral oil [From Vagisil] Allergy Mild Rash Verified 08/27/20 14:06 nickel Allergy Mild RASH Verified 08/27/20 14:06 potassium chloride Allergy Mild PRURITUS, Verified 08/27/20 14:06 [From Klor-Con] RASH resorcinol [From Vagisil] Allergy Mild Rash Verified 08/27/20 14:06 sitagliptin Allergy Mild ARMS, LEGS Verified 08/27/20 14:06 SWELLING starch [From Vagisil] Allergy Mild Rash Verified 08/27/20 14:06 vitamin E (d-alpha Allergy Mild Rash Verified 08/27/20 14:06 tocopherol) [From Vagisil] vitamins A and D Allergy Mild Rash Verified 08/27/20 14:06 [From Vagisil] adhesive AdvReac Intermediate Tape - Verified 08/27/20 14:06 rash/itching erythromycin base AdvReac Intermediate 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 Verified 08/27/20 14:06 STOMACH CRAMPS Tricyclic Antidepressants Allergy Intermediate ARMS, LEGS Uncoded 08/27/20 14:06 SWELLING Home Medications Medication Instructions Recorded Confirmed Type Spiriva with HandiHaler 1 cap INHALATION HS 11/09/17 08/27/20 History aspirin 81 mg PO QAM 11/09/17 08/27/20 History atorvastatin 20 mg PO QDD 11/09/17 08/27/20 History fluticasone propion-salmeterol 1 inh INHALATION BID 11/09/17 08/27/20 History [Advair Diskus] levalbuterol HCl 1 dose INHALATION DAILY PRN 11/09/17 08/27/20 History metformin 1,000 mg PO BIDM 11/09/17 08/27/20 History metoprolol tartrate 12.5 mg PO BIDM 11/09/17 08/27/20 History montelukast [Singulair] 10 mg PO QDD 11/09/17 08/27/20 History oxycodone 5 mg PO BID 11/09/17 08/27/20 History potassium chloride 20 meq PO BID 11/09/17 08/27/20 History potassium citrate 10 meq PO BID 11/09/17 08/27/20 History warfarin 5 mg PO 4XWK 11/09/17 08/27/20 History Probiotic Digestive Care 2 tab PO QAM 06/29/18 08/27/20 History magnesium chloride 128 mg PO QDD 01/08/19 08/27/20 History magnesium chloride 192 mg PO AMHS 01/08/19 08/27/20 History Multivitamin Women 50 Plus 1 tab PO QAM 01/10/19 08/27/20 History acetaminophen [Tylenol] 650 mg PO HS 02/13/19 08/27/20 History biotin 30 mg PO QAM 02/13/19 08/27/20 History cyanocobalamin (vitamin B-12) 500 mcg PO BID 02/13/19 08/27/20 History [Vitamin B-12] lansoprazole 30 mg PO QAM 02/13/19 08/27/20 History medroxyprogesterone 10 mg PO QAM 02/13/19 08/27/20 History ropinirole 0.5 mg PO HS PRN 02/13/19 08/27/20 History empagliflozin [Jardiance] 10 mg PO DAILY 08/27/20 08/27/20 History escitalopram oxalate 20 mg PO QAM 08/27/20 08/27/20 History ferrous sulfate 325 mg PO BID 08/27/20 08/27/20 History furosemide 20 mg PO DAILY 08/27/20 08/27/20 History leucovorin calcium 5 mg PO WK 08/27/20 08/27/20 History methotrexate sodium 17.5 mg SUBCUT WK 08/27/20 08/27/20 History semaglutide [Ozempic] 1 mg SUBCUT WK 08/27/20 08/27/20 History verapamil 120 mg PO TID 08/27/20 08/27/20 History warfarin 7.5 mg PO 3XWK 08/27/20 08/27/20 History Patient History Medical History Asthma stable Atrial fibrillation on warfarin Breast cancer "Abnormal left breast mammogram 07/24/2010 Ultrasound-guided biopsy with finding of invasive adenocarcinoma Estrogen receptor negative, progesterone receptor negative, HER-2/mario negative Family history with genetic testing positive for BRCA1 mutation Status post bilateral mastectomies left breast stage pT3 pN2a M0 Immediate breast reconstruction with bilateral tissue expanders Removal of left tissue bioinformatics analyst due to infection November 2010 Removal of right breast tissue bioinformatics analyst due to infection December 2010 Status post chemotherapy with TAC Status post completion of radiation therapy 09/15/2011 received 6120 cGy" Chronic kidney disease (CKD) Chronic obstructive pulmonary disease stable Deep vein thrombosis 20 years ago - RLE post injury Degenerative disc disease Depression Diabetes mellitus, type 2 NIDDM Diverticulitis Fibromyalgia Gastroparesis GERD (gastroesophageal reflux disease) controlled History of breast cancer s/p B/L mastectomy + chemo/radiation History of kidney stones Hyperlipidemia Hypertension Limb alert care status LUE restricted - NO BP/IV/Needle sticks Lymphedema B/L LE Migraine Morbid obesity with BMI of 40.0-44.9, adult Nausea and vomiting after administration of anesthetic agent Neuropathy feet--severe to both legs/feet--uses assistive devices including mobilized wheelchair Osteoarthritis PSVT (paroxysmal supraventricular tachycardia) Pulmonary embolism 05/2017 Raynauds phenomenon Restless leg syndrome Restless legs syndrome Sleep apnea CPAP Surgical History H/O bilateral salpingo-oophorectomy H/O breast reconstruction History of bilateral mastectomy LEFT ARM RESTRICTION History of breast biopsy History of carpal tunnel release History of cholecystectomy History of D&C History of difficult intubation Hx glidescope intubation: 11/25/17: Grade 1 view with glidescope#3, ETT 7.0 (small mouth opening) History of exploratory laparotomy History of gynecological procedure mirena placed with D&C 11/24/18 History of herniorrhaphy UMBILICAL WITH MESH History of vascular access device MEDIPORT (RIGHT CHEST) Hx of foot surgery LEFT Family History Brother Family history of diabetes mellitus Father Family history of diabetes mellitus Mother Family history of diabetes mellitus Social History Smoking Status: Former smoker Smoking End Date: 36 yrs ago; Second Hand Exposure: No; Hx Alcohol Use: No Hx Substance Use: No Preferred Language: Marshallese Communication Ability: Effective Hand Endband Cutter Required: No Beliefs That Will Affect Care: None Current Living Situation: Spouse Current Living Situation Comment: raised ranch home, stair lift , ramp in place Other Information That Helps Us Care for You: No Feels Safe at Home: Yes Safety Concerns: Feels Safe At This Time Assistive Devices: CPAP and Glasses Assistive Devices Comment: at bedside Review of Systems Constitutional: + chills; no fever Eyes: no diplopia Ear, Nose, Mouth, Throat: no ear pain Respiratory: no cough and no dyspnea Cardiovascular: no chest pain Gastrointestinal: no abdominal pain Genitourinary: + flank pain (Left-sided); no dysuria and no urinary frequency Musculoskeletal: + back pain Integumentary: no rash Neurologic: no localized weakness Physical Exam Constitutional: well developed and well nourished; no acute distress Eyes: no conjunctival abnormality ENMT: Ears: no hearing impairment Neck: trachea midline Respiratory: normal respiratory effort; no respiratory distress and no labored breathing Cardiovascular: Rate/Rhythm: regular rate and regular rhythm Gastrointestinal (Abdomen): Percussion/Palpation: abdomen soft; abdomen nontender Musculoskeletal: No calf tenderness Skin: no rashes, warm and dry Neurologic: moves all extremities Psychiatric: A+Ox3, euthymic affect Genitourinary: no CVA tenderness Results & Data ([facility]) Vital Signs (Past 12 Hours) Vital Signs Temp Pulse Pulse Resp BP BP Pulse Ox 08/27/20 17:03 36.7 C 85 18 153/80 H 95 08/27/20 17:01 36.7 C 85 18 153/80 H 95 08/27/20 16:39 84 18 134/88 99 08/27/20 16:30 86 08/27/20 16:10 90 08/27/20 15:32 98 08/27/20 15:30 119/82 98 08/27/20 15:00 87 18 143/60 H 08/27/20 14:30 84 23 142/69 H 97 08/27/20 14:06 101 H 21 08/27/20 14:01 128/74 08/27/20 14:00 91 H 18 08/27/20 13:30 90 20 147/77 H 98 08/27/20 13:00 86 20 133/75 97 08/27/20 12:59 87 21 97 08/27/20 12:30 87 21 139/77 98 08/27/20 11:55 88 20 128/63 97 08/27/20 11:14 36.0 C L 92 H 20 140/70 99 PG Care Time/CCT Total # of Minutes Spent Total Time Spent with Patient: Total time spent is greater than 50% in coordination of care (as documented) at patient's floor/unit and/or counseling patient: Coding Level of Care Code 73752 Inpt Consult Level 5 Diagnoses Renal calculi N20.0
[2020-08-27] MEDS: INSULIN ASPART 100 UNITS/ML 3 ML PEN SC SCH (20:59)
[2020-08-27] MEDS: INSULIN GLARGINE SOLOSTAR 100 UNITS/ML 3 ML PEN SC SCH (21:00)
[2020-08-27] MEDS ORDERED: UMECLIDINIUM BROMIDE 62.5MCG/BLISTER 7 PUFFS/INHALER INH SCH (21:00)
[2020-08-27] MEDS ORDERED: oxyCODONE HCL IR 5 MG TAB (IMMEDIATE RELEASE) PO SCH (21:00)
--- NOTE | 2020-08-27 21:10 | XRay Report ---
XR thoracic spine 3V routine HISTORY: 64 years-old Female back pain acute upper back pain without reported trauma COMPARISON: CTA chest 02/13/2019 TECHNIQUE: 3 views of the thoracic spine FINDINGS: Right subclavian Aeurtq-y-Lcdk catheter. Cardiomegaly. Spondylitic spurring of the thoracolumbar spin e. Multilevel mostly mild intervertebral disc space narrowing with mild to moderate and facet arthros is. No acute fracture, subluxation nor endplate erosion. No suspicious bone lesions. Degenerative carlos nges of the cervical spine. The imaged lung marshall appear clear. Surgical clips of the right upper qu adrant abdomen. Right nephrolithiasis. IMPRESSION: 1. Degenerative changes as above without acute fracture or subluxation. 2. Right nephrolithiasis. ACT 112: Negative or not required by law. The above report was generated using voice recognition software. It may contain grammatical, syntax o r spelling errors. Electronically signed by: Pavel Morrissey M.D. 08/27/2020 9:09 PM
[2020-08-27] MEDS ORDERED: ACETAMINOPHEN 325 MG TAB PO PRN (23:59)
[2020-08-28 00:16] VITALS: BP 123/76
--- NOTE | 2020-08-28 01:04 | Hospitalist Progress Note ---
Date of Service August 28, 2020 Assessment & Plan Admission and Anticipated Discharge Date Admission Date: August 27, 2020 Subjective Says had PE 2-3 yrs ago and DVT many years ago. Will hold Coumadin for any procedures. Restart as soon as possible. thanks Results & Data Results & Data ([facility]) Vital Signs (Past 12 Hours) Vital Signs Temp Pulse Pulse Resp BP BP Pulse Ox 08/28/20 00:16 37 C 97 H 18 123/76 95 08/27/20 17:03 36.7 C 85 18 153/80 H 95 08/27/20 17:01 36.7 C 85 18 153/80 H 95 08/27/20 16:39 84 18 134/88 99 08/27/20 16:30 86 08/27/20 16:10 90 08/27/20 15:32 98 08/27/20 15:30 119/82 98 08/27/20 15:00 87 18 143/60 H 08/27/20 14:30 84 23 142/69 H 97 08/27/20 14:06 101 H 21 08/27/20 14:01 128/74 08/27/20 14:00 91 H 18 08/27/20 13:30 90 20 147/77 H 98
[2020-08-28] MEDS: CALCIUM CARBONATE 500 MG CHEWABLE TAB PO PRN (04:39)
[2020-08-28] MEDS: SODIUM CHLORIDE 0.9% 1000ML 1,000 ML IV SCH (05:41)
[2020-08-28 05:51] LABS: Hematocrit (blood only) 34.8 % (37-47); Mean Corpuscular Hemoglobin 30.6 pg (25-34); Mean Corpuscular Hgb Conc 31.6 g/dL (32-36); Mean Corpuscular Volume 96.9 fL (80-100); Mean Platelet Volume 10.1 fL (7.4-10.4); Platelet Count 275 K/uL (130-400); RDW Coefficient of Variation 15.7 % (11.5-14.5); RDW Standard Deviation 55.2 fL (36.4-46.3); Red Blood Count 3.59 M/uL (4.2-5.4); White Blood Count 8.77 K/uL (4.8-10.8)
[2020-08-28 06:07] LABS: INR 2.7 (0.9-1.1); Prothrombin Time 25.5 Seconds (9.0-12.0)
[2020-08-28 06:26] LABS: BUN Creatinine Ratio 18.3 (10-20); Calcium 8.2 mg/dl (8.5-10.1); Creatinine Clr Calc Pharmacy 110.5 ml/min; Magnesium 2.2 mg/dl (1.8-2.4); Potassium 3.7 mmol/L (3.5-5.1)
[2020-08-28 06:32] LABS: Estimated Average Glucose 148 mg/dl; Hemoglobin A1C 6.8 % (4.5-5.6)
[2020-08-28 07:28] VITALS: TEMP 98.2
[2020-08-28] MEDS: VERAPAMIL HCL 120 MG TABCR PO SCH (08:22)
--- NOTE | 2020-08-28 08:22 | XRay Report ---
KUB HISTORY: Follow up study in a patient with renal calculi kidney stone COMPARISON: CT abdomen and pelvis 08/26/2020 FINDINGS: Nonobstructive bowel gas pattern. Cholecystectomy. The renal shadows are partially obscure d by bowel gas. Calculus of the right kidney redemonstrated measuring up to 9 mm. No left renal calcu li or ureteral calculi are identified. No pneumoperitoneum or pneumatosis. Degenerative changes of th e spine, pelvis and hips. No fracture. IMPRESSION: 1. Right renal calculi redemonstrated. 2. No ureteral calculi identified. ACT 112: Negative or not required by law. The above report was generated using voice recognition software. It may contain grammatical, syntax o r spelling errors. Electronically signed by: Pavel oMrrissey M.D. 08/28/2020 8:20 AM
[2020-08-28] MEDS: MAGNESIUM CHLORIDE 64MG DELAYED REL TAB PO SCH (08:23)
[2020-08-28] MEDS: FERROUS SULFATE 325 MG TAB PO SCH (08:24)
[2020-08-28] MEDS: METOPROLOL TARTRATE 25 MG TAB PO SCH (08:25)
[2020-08-28] MEDS: CYANOCOBALAMIN 500 MCG TABLET (VITAMIN B-12) PO SCH (08:25)
[2020-08-28] MEDS: INSULIN ASPART 100 UNITS/ML 3 ML PEN SC SCH (08:30)
[2020-08-28] MEDS ORDERED: medroxyPROGESTERone ACETATE 10 MG TAB PO SCH (09:00)
[2020-08-28] MEDS ORDERED: ADVANCED PROBIOTIC 1250 MG CAPSULE PO SCH (09:00)
[2020-08-28] MEDS ORDERED: PANTOprazole 40 MG TAB PO SCH (09:00)
[2020-08-28] MEDS ORDERED: ASPIRIN 81 MG ECTAB PO SCH (09:00)
[2020-08-28] MEDS ORDERED: FLUTICASONE/VILANTEROL 100/25MCG 14 PUFFS/INHALER INH SCH (09:00)
[2020-08-28] MEDS ORDERED: ESCITALOPRAM OXALATE 20 MG TAB PO SCH (09:00)
[2020-08-28] MEDS: INSULIN GLARGINE SOLOSTAR 100 UNITS/ML 3 ML PEN SC SCH (09:41)
--- NOTE | 2020-08-28 11:33 | Urology Progress Note ---
Date of Service August 28, 2020 Assessment & Plan (1) Renal calculi: 64 year old female admitted for back pain and suspected UTI. - Afebrile, nontoxic, lab work reviewed - creatinine and WBC within normal limits - UC&S and BCx pending - continue antibiotics per primary team, follow cultures - No right flank pain - No acute intervention indicated at this time for right renal stones - Okay to resume diet and anticoagulation per primary service - Continue supportive care and management per hospital medicine - Recommend outpatient follow-up with urology to discuss definitive stone treatment and follow renal cysts - She followed with [facility] urology most recently and wishes to follow with them due to insurance Thank you for allowing us to participate in the acute care of Ms. Davidson. Please reconsult us with additional questions, concerns or changes in patient status. Admission and Anticipated Discharge Date Admission Date: August 27, 2020 Subjective Patient seen and examined at bedside Sleeping with CPAP in place, arouses easily to name No right flank pain. Continues to have left flank discomfort, though notes it is improved. Voiding without difficulty. No dysuria or hematuria. No nausea or vomiting. Reports chills, no fever. She followed with [facility] urology most recently and wishes to follow with them due to insurance. No additional concerns today. Chart review: Afebrile. Creatinine 0.66, WBC 8.77, Hgb 11.0. UC&S and BCx pending. On IV Ceftriaxone. Review of Systems Constitutional: as per Subjective / HPI Gastrointestinal: as per Subjective / HPI Genitourinary: as per Subjective / HPI Physical Exam Constitutional: well developed, well nourished and + morbidly obese; no acute distress and not ill appearing Respiratory: normal respiratory effort and able to speak in complete sentences; no respiratory distress and no labored breathing Cardiovascular: Extremities: no pedal edema Gastrointestinal (Abdomen): Inspection/Auscultation: abdomen normal to inspection; abdomen not distended Percussion/Palpation: abdomen soft; abdomen nontender and no guarding Musculoskeletal: Head/Neck/Chest: normocephalic and head atraumatic Skin: no rashes, warm and dry Neurologic: moves all extremities and awake Psychiatric: Orientation: alert and oriented x 3 Genitourinary: no CVA tenderness Results & Data ([facility]) Vital Signs (Past 12 Hours) Vital Signs Temp Pulse Pulse Resp BP Pulse Ox 08/28/20 07:27 36.8 C 86 16 123/76 95 08/28/20 00:16 37 C 97 H 18 123/76 95
[2020-08-28] MEDS ORDERED: INSULIN ASPART 100 UNITS/ML 3 ML PEN SC SCH (12:00)
--- NOTE | 2020-08-28 13:30 | Hospitalist Progress Note ---
Date of Service August 28, 2020 Assessment & Plan (1) Back pain: (2) Renal calculi: (3) Complicated UTI (urinary tract infection): -Admit to [facility] -Patient presenting by referral of PCPs office for evaluation of back pain and renal calculi -Had outpatient CT ABD/pelvis yesterday that showed Right renal pelvis 10 x 10 mm calculus. No associated inflammatory changes are appreciated. Nonobstructing right renal lower pole 4 mm calculus. Bilateral renal water density lesions, not fully characterized but most likely cysts. A right renal lower pole exophytic 31 mm mass is present, indeterminate density, with proteinaceous cyst not distinguished from solid neoplasm. MRI is recommended for characterization. -Even though patient has heavy stone burden on the right, her pain is located in the left flank and left thoracic back -UA suggest UTI however patient does not appear septic. Received IV ceftriaxone in the ED, continue with -Renal ultrasound Showed a cyst of the superior pole of left kidney measuring 2.1 x 2.0 x 1.8 cm. No left-sided calculi or hydronephrosis::: Will need to follow-up scan in 1 year as per urologist -Urology consult-appreciate input and recommendation -Thoracic spine x-ray -consider further imaging if unrevealing for source of p ain -will need outpatient renal MRI to follow-up right renal lower pole mass noted on outpatient CT ABD/pelvis (4) Elevated lactic acid level: -Lactic acid 2.8 -Does not appear septic, likely due to mild dehydration -IVF, hold home furosemide, repeat lactic acid -Lactic acid is normalized and no signs and or symptoms of sepsis (5) Diarrhea: -Patient attributes this to underlying IBS -Check stool culture and C. difficile-not collected (6) PSVT (paroxysmal supraventricular tachycardia): -Continue verapamil (7) Asthma: -No signs of acute exacerbation, continue home inhalers (8) Diabetes mellitus, type 2: -Hgb A1c 6.7 04/2020 -Hold oral agents and utilize NovoLog per protocol while hospitalized (9) Pulmonary embolism: (10) Deep vein thrombosis: -History of, anticoagulated on Coumadin -INR 2.6 -Continue Coumadin (11) Lymphedema: -Hold Lasix for today while receiving IVF for UTI and mild lactic acidosis -We will restart outpatient medications (12) Sleep apnea: -CPAP as per home settings (13) DVT prophylaxis: -Anticoagulated on Coumadin with therapeutic INR Will be discharged home this afternoon Admission and Anticipated Discharge Date Admission Date: August 27, 2020 Subjective 08/28/2020 The patient was seen and examined in medical floor She has been complaining of pain in the left flank and left renal angle Pain seems to be little better since admission Denies any fever and/or chills, no nausea no vomiting Review of Systems Review of Systems: All systems reviewed and are unremarkable except as noted below Genitourinary: no dysuria Physical Exam Physical Exam: Lying in bed comfortably Constitutional: well developed, well nourished and + obese; not ill appearing Eyes: PERRL, conjunctivae normal, anicteric sclerae ENMT: external ear and nose normal, oropharynx normal Neck: trachea midline, no thyromegaly Respiratory: no respiratory distress Auscultation: lungs clear to auscultation bilaterally Cardiovascular: Rate/Rhythm: regular rate and regular rhythm Heart Sounds: no murmur Extremities: + edema (Trace edema bilaterally) Gastrointestinal (Abdomen): Inspection/Auscultation: normal bowel sounds; abdomen not distended Percussion/Palpation: + abdomen tender (Left renal angle) and abdomen soft Musculoskeletal: No acute arthritis in any joint Neurologic: Alert, awake and oriented x3. No focal sensory or motor deficit appreciated Lymphatic: no cervical or axillary lymphadenopathy Results & Data Results & Data ([facility]) Vital Signs (Past 12 Hours) Vital Signs Temp Pulse Resp BP Pulse Ox 08/28/20 07:27 36.8 C 86 16 123/76 95 Laboratory Results Short CBC 08/28/20 Range/Units 05:33 WBC 8.77 (4.8-10.8) K/uL Hgb 11.0 L (12.0-16.0) g/dL Hct 34.8 L (37-47) % Plt Count 275 (130-400) K/uL BMP 08/28/20 05:33 Sodium 141 Potassium 3.7 Chloride 110 H Carbon Dioxide 27 BUN 12 Creatinine 0.66 Glucose 108 H Calcium 8.2 L Medications Administered Current Inpatient Medications Acetaminophen (Acetaminophen 325 Mg Tab) 650 mg PO Q6H PRN PRN Reason: Pain or Fever Stop: 09/26/20 23:58 Last Admin: 08/28/20 00:17 Dose: 650 mg Documented by: Aspirin (Aspirin 81 Mg Ectab) 81 mg PO QAM [facility] Stop: 09/27/20 08:59 Last Admin: 08/28/20 08:21 Dose: 81 mg Documented by: Atorvastatin Calcium (Atorvastatin 20 Mg Tab) 20 mg PO QDD [facility] Stop: 09/26/20 16:59 Last Admin: 08/27/20 17:46 Dose: 20 mg Documented by: Calcium Carbonate (Calcium Carbonate 500 Mg Chewable Tab) 1,000 mg PO Q8H PRN PRN Reason: Indigestion Stop: 09/26/20 17:37 Last Admin: 08/28/20 04:39 Dose: 1,000 mg Documented by: Cyanocobalamin (Cyanocobalamin 500 Mcg Tablet (Vitamin B-12)) 500 mcg PO BID [facility] Stop: 09/26/20 20:59 Last Admin: 08/28/20 08:25 Dose: 500 mcg Documented by: Dextrose (Dextrose 50% 50 Ml Syringe) 25 - 50 ml IV UD PRN; Protocol PRN Reason: Hypoglycemia Protocol Stop: 09/26/20 17:59 Escitalopram Oxalate (Escitalopram Oxalate 20 Mg Tab) 20 mg PO QAM [facility] Stop: 09/27/20 08:59 Last Admin: 08/28/20 08:21 Dose: 20 mg Documented by: Famotidine (Famotidine 10 Mg Tablet) 10 mg PO BID PRN PRN Reason: Dyspepsia Stop: 09/26/20 20:59 Ferrous Sulfate (Ferrous Sulfate 325 Mg Tab) 325 mg PO BID [facility] Stop: 09/26/20 20:59 Last Admin: 08/28/20 08:24 Dose: 325 mg Documented by: Fluticasone/Vilanterol (Fluticasone/Vilanterol 100/25mcg 14 Puffs/Inhaler) 1 puffs INH DAILY [facility] Stop: 09/27/20 08:59 Last Admin: 08/28/20 08:25 Dose: 1 puffs Documented by: Glucagon (Glucagon For Inj 1 Mg Vial) 1 mg SQ UD PRN; Protocol PRN Reason: Hypoglycemia Protocol Stop: 09/26/20 17:59 Glucose (Glucose 10 Tabs/Tube) 4 - 8 tabs PO UD PRN; Protocol PRN Reason: Hypoglycemia Protocol Stop: 09/26/20 17:59 Glucose (Glucose 40% Gel 15 Gm Tube) 15 - 30 gm PO UD PRN; Protocol PRN Reason: Hypoglycemia Protocol Stop: 09/26/20 17:59 Ceftriaxone Sodium 2,000 mg/ (Dextrose) 70 mls @ 100 mls/hr IV Q24H [facility]; Protocol Stop: 09/06/20 13:59 Sodium Chloride (Nss 1000ml) 1,000 mls @ 80 mls/hr IV .[id number] [facility] Stop: 09/26/20 16:59 Last Admin: 08/28/20 05:41 Dose: 80 mls/hr Documented by: Insulin Aspart (Insulin Aspart 100 Units/Ml 3 Ml Pen) 0 units SC Q6 [facility] Stop: 09/27/20 11:59 Last Admin: 08/28/20 13:08 Dose: 3 units Documented by: Insulin Glargine (Insulin Glargine Solostar 100 Units/Ml 3 Ml Pen) 5 units SC BID [facility] Stop: 09/26/20 20:59 Last Admin: 08/28/20 09:41 Dose: Not Given Documented by: Lactobacillus Acidoph/Casei/Rhamnos (Advanced Probiotic 1250 Mg Capsule) 2 cap PO QAM [facility] Stop: 09/27/20 08:59 Last Admin: 08/28/20 08:24 Dose: 2 cap Documented by: Magnesium Chloride (Magnesium Chloride 64mg Delayed Rel Tab) 128 mg PO QDD [facility] Stop: 09/26/20 16:59 Last Admin: 08/27/20 17:46 Dose: 128 mg Documented by: Magnesium Chloride (Magnesium Chloride 64mg Delayed Rel Tab) 192 mg PO AMHS [facility] Stop: 09/26/20 20:59 Last Admin: 08/28/20 08:23 Dose: 192 mg Documented by: Medroxyprogesterone Acetate (Medroxyprogesterone Acetate 10 Mg Tab) 10 mg PO QAM [facility] Stop: 09/27/20 08:59 Last Admin: 08/28/20 08:22 Dose: 10 mg Documented by: Metoprolol Tartrate (Metoprolol Tartrate 25 Mg Tab) 12.5 mg PO BIDM [facility] Stop: 09/26/20 16:59 Last Admin: 08/28/20 08:25 Dose: 12.5 mg Documented by: Miscellaneous (Carbohydrates For Hypoglycemia ) 15 - 30 gm PO UD PRN PRN Reason: Hypoglycemia Protocol Stop: 09/26/20 17:59 Montelukast Sodium (Montelukast Sodium 10 Mg Tablet) 10 mg PO QDD [facility] Stop: 09/26/20 16:59 Last Admin: 08/27/20 17:47 Dose: 10 mg Documented by: Morphine Sulfate (Morphine Sulfate 2 Mg/Ml Carp) 2 mg IV Q4H PRN PRN Reason: Pain Stop: 09/10/20 16:59 Ondansetron HCl (Ondansetron Inj 2 Mg/Ml 2 Ml Vial) 4 mg IV Q6H PRN PRN Reason: nausea Stop: 09/26/20 16:59 Oxycodone HCl (Oxycodone Hcl Ir 5 Mg Tab (Immediate Release)) 5 mg PO BID@0000,1999 [facility] Stop: 09/10/20 19:59 Last Admin: 08/27/20 23:56 Dose: 5 mg Documented by: Pantoprazole Sodium (Pantoprazole 40 Mg Tab) 40 mg PO QAM [facility] Stop: 09/27/20 08:59 Last Admin: 08/28/20 08:21 Dose: 40 mg Documented by: Umeclidinium Pearl (Umeclidinium Pearl 62.5mcg/Blister 7 Puffs/Inhaler) 1 puffs INH HS [facility] Stop: 09/26/20 20:59 Last Admin: 08/27/20 19:54 Dose: 1 puffs Documented by: Verapamil HCl (Verapamil Hcl 120 Mg Tabcr) 120 mg PO TID [facility] Stop: 09/26/20 20:59 Last Admin: 08/28/20 08:22 Dose: 120 mg Documented by: Warfarin Sodium (Warfarin Sod 7.5 Mg Tab) 7.5 mg PO [email or web address] [facility] Stop: 09/26/20 17:59 Last Admin: 08/27/20 19:54 Dose: 7.5 mg Documented by: Warfarin Sodium (Warfarin Sod 5 Mg Tab) 5 mg PO [email or web address] [facility] Stop: 09/27/20 15:59
[2020-08-28] MEDS ORDERED: cefTRIAXone SODIUM 2,000 MG in DEXTROSE 5% 50 ML IV SCH (14:00)
[2020-08-28 14:33] VITALS: PULSE 97
[2020-08-28] MEDS ORDERED: WARFARIN SOD 5 MG TAB PO SCH (16:00)
--- NOTE | 2020-08-29 08:19 | Discharge Summary ---
Date of Service August 29, 2020 Admission HPI Per Admitting Provider 64-year-old female PMH DM type II, LORE on CPAP, asthma, HTN, paroxysmal SVT, seronegative polyarthritis, fibromyalgia, history of breast cancer, history of DVT and pulmonary embolism anticoagulated on Coumadin, and other problems listed below who presents to the ED by referral of PCP for evaluation of back pain and renal calculi. Patient reports ongoing left-sided thoracic and flank pain for the past 6 to 8 weeks. Pain has acutely worsened in the past few days. Reports that she previously was having episodes of pain however pain is now constant. She had been seeing a chiropractor routinely without improvement in her pain. Patient had an outpatient CT ABD/pelvis yesterday that showed right renal pelvis 10 x 10 mm calculus and nonobstructing right renal pole 4 mm calculus. Patient reports having chills however no fever. She feels like her urine output has decreased and she has had some mild hematuria. Denies dysuria. Reports nausea however no vomiting. Has been having diarrhea that she attributes to her IBS. No bright red bleeding per rectum or dark tarry stools. Denies abdominal pain. No chest pain or shortness of breath. Reports intermittent episodes of lightheadedness and dizziness however no syncopal event. Has chronic lower extremity edema from lymphedema which is unchanged from baseline. In the ED, patient is hemodynamically stable, afebrile, no leukocytosis. UA suggest possib le UTI. Lactic acid 2.8. Patient received IV Tylenol, IV ceftriaxone, 2 doses of IV morphine, IV Zofran, IVF. Admission Exam Per Admitting Provider Vitals signs as noted above General Appearance:Morbidly Obese, no apparent distress Head: normocephalic, Atraumatic Eyes: normal inspection, EOMI Neck: supple, Trachea midline Respiratory/Chest: Normal breath sounds, CTA, No accessory muscle use, +R chemo port Cardiovascular: S1, S2, No murmur Abdomen/GI:Soft, Non tender, Bowel sounds present, L flank tender Back: Left Thoracic paravertebral tender Extremities/Musculoskeletal:normal inspection, no edema Neurologic/Psych:AAOX3, grossly no focal neurological deficits Skin:normal color,warm Principal Diagnosis Right renal stone, left renal cyst, back pain, PSVT, type 2 diabetes, history of DVT and PE on Coumadin, sleep apnea on CPAP Discharge Exam Constitutional well developed, well nourished and + obese; not ill appearing Eyes PERRL, conjunctivae normal, anicteric sclerae ENMT external ear and nose normal, oropharynx normal Neck trachea midline, no thyromegaly Respiratory no respiratory distress Auscultation: lungs clear to auscultation bilaterally Cardiovascular Rate/Rhythm: regular rate and regular rhythm Heart Sounds: no murmur Extremities: + edema (Trace edema bilaterally) Gastrointestinal (Abdomen) Inspection/Auscultation: normal bowel sounds; abdomen not distended Percussion/Palpation: + abdomen tender (Left renal angle) and abdomen soft Lymphatic no cervical or axillary lymphadenopathy Discharge Data Allergies Allergy/AdvReac Type Severity Reaction Status Date / Time codeine Allergy Intermediate PRURITUS, Verified 08/27/20 14:06 RASH gabapentin Allergy Intermediate ARMS, LEGS Verified 08/27/20 14:06 SWELLING aloe vera [From Vagisil] Allergy Mild Rash Verified 08/27/20 14:06 amitriptyline Allergy Mild ARMS, LEGS Verified 08/27/20 14:06 SWELLING benzocaine [From Vagisil] Allergy Mild Rash Verified 08/27/20 14:06 doxepin Allergy Mild ARMS, LEGS Verified 08/27/20 14:06 SWELLING hyoscyamine Allergy Mild ARMS, LEGS Verified 08/27/20 14:06 SWELLING mineral oil [From Vagisil] Allergy Mild Rash Verified 08/27/20 14:06 nickel Allergy Mild RASH Verified 08/27/20 14:06 potassium chloride Allergy Mild PRURITUS, Verified 08/27/20 14:06 [From Klor-Con] RASH resorcinol [From Vagisil] Allergy Mild Rash Verified 08/27/20 14:06 sitagliptin Allergy Mild ARMS, LEGS Verified 08/27/20 14:06 SWELLING starch [From Vagisil] Allergy Mild Rash Verified 08/27/20 14:06 vitamin E (d-alpha Allergy Mild Rash Verified 08/27/20 14:06 tocopherol) [From Vagisil] vitamins A and D Allergy Mild Rash Verified 08/27/20 14:06 [From Vagisil] adhesive AdvReac Intermediate Tape - Verified 08/27/20 14:06 rash/itching erythromycin base AdvReac Intermediate [employer] Verified 08/27/20 14:06 STOMACH CRAMPS Tricyclic Antidepressants Allergy Intermediate ARMS, LEGS Uncoded 08/27/20 14:06 SWELLING Consultations 08/27/20 14:40 ED Decision to Admit Stat 08/27/20 17:00 Consult Urology Routine Ordered Studies 08/27/20 15:18 US renal/blad retro comp Routine Hospital Course (1) Back pain: (2) Renal calculi: (3) Complicated UTI (urinary tract infection): -Admit to [facility] -Patient presenting by referral of PCPs office for evaluation of back pain and renal calculi -Had outpatient CT ABD/pelvis yesterday that showed Right renal pelvis 10 x 10 mm calculus. No associated inflammatory changes are appreciated. Nonobstructing right renal lower pole 4 mm calculus. Bilateral renal water density lesions, not fully characterized but most likely cysts. A right renal lower pole exophytic 31 mm mass is present, indeterminate density, with proteinaceous cyst not distinguished from solid neoplasm. MRI is recommended for characterization. -Even though patient has heavy stone burden on the right, her pain is located in the left flank and left thoracic back -UA suggest UTI however patient does not appear septic. Received IV ceftriaxone in the ED, continue with -Renal ultrasound Showed a cyst of the superior pole of left kidney measuring 2.1 x 2.0 x 1.8 cm. No left-sided calculi or hydronephrosis::: Will need to follow-up scan in 1 year as per urologist -Urology consult-appreciate input and recommendation -Thoracic spine x-ray -consider further imaging if unrevealing for source of pain -will need outpatient renal MRI to follow-up right renal lower pole mass noted on outpatient CT ABD/pelvis (4) Elevated lactic acid level: -Lactic acid 2.8 -Does not appear septic, likely due to mild dehydration -IVF, hold home furosemide, repeat lactic acid -Lactic acid is normalized and no signs and or symptoms of sepsis (5) Diarrhea: -Patient attributes this to underlying IBS -Check stool culture and C. difficile-not collected (6) PSVT (paroxysmal supraventricular tachycardia): -Continue verapamil (7) Asthma: -No signs of acute exacerbation, continue home inhalers (8) Diabetes mellitus, type 2: -Hgb A1c 6.7 04/2020 -Hold oral agents and utilize NovoLog per protocol while hospitalized (9) Pulmonary embolism: (10) Deep vein thrombosis: -History of, anticoagulated on Coumadin -INR 2.6 -Continue Coumadin (11) Lymphedema: -Hold Lasix for today while receiving IVF for UTI and mild lactic acidosis -We will restart outpatient medications (12) Sleep apnea: -CPAP as per home settings (13) DVT prophylaxis: -Anticoagulated on Coumadin with therapeutic INR Will be discharged home this afternoon Total Time Total Time Spent Total Time Spent (In Minutes): 35 minutes Total Time Includes: Examination of the Patient, Discharge Planning, Medication Reconciliation and Communication With Other Providers Discharge Plan Discharge Items Patient Disposition: Home - Self-Care Reason For Visit: INFLAMMED KIDNEY, FLUID AROUND KIDNEY Discharge Diagnosis: Right renal stone, left renal cyst, back pain, PSVT, type 2 diabetes, history of DVT and PE on Coumadin, sleep apnea on CPAP Condition on Discharge: Good Activity: Resume your previous activity Non-emergency contact: Primary Care Provider Call non-emergency contact if: you have any medication questions Follow-up/Referrals: Syed Hodgson PA-C [Outside Practitioners] - (Date & Time 10/10/2020 8:30 AM Provider Syed Hodgson PA-C Department Urology, [facility] ) Landon Quiles DO [Primary Care Provider] - (Date & Time 09/04/2020 10:20 AM Provider Landon Quiles DO Department Family Practice [facility] ) Diet: Carb Consistent or DM2 and Heart Healthy Addtl Attending Provider Instructions: Please take precaution to avoid falls Try to drink more fluid/water Please keep follow-up appointments with your primary care doctor and urologist Have your regular follow-up with coagulation clinic Pending Studies at Discharge: Yes Studies:: Blood and urine culture Stand-Alone Forms: My [facility] [employer], Smoking Cessation Medications and DC Order Prescriptions: New cephalexin 750 mg capsule 750 mg PO BID 5 Days Qty: 10 RF: 0 Lactinex 1 million cell tablet,chewable 1 tab PO BID Qty: 20 RF: 0 Continued magnesium chloride 64 mg Tablet,Delayed Release (Dr/Ec) 128 mg PO QDD RF: 0 magnesium chloride 64 mg Tablet,Delayed Release (Dr/Ec) 192 mg PO AMHS RF: 0 Multivitamin Women 50 Plus 8 mg iron-400 mcg-300 mcg Tablet 1 tab PO QAM RF: 0 fluticasone propion-salmeterol [Advair Diskus] 250-50 mcg/dose Blister With Device 1 inh INHALATION BID RF: 0 atorvastatin 20 mg Tablet 20 mg PO QDD RF: 0 potassium chloride 10 mEq Tablet Extended Release 20 meq PO BID RF: 0 aspirin 81 mg Tablet,Delayed Release (Dr/Ec) 81 mg PO QAM RF: 0 potassium citrate 10 mEq (1,080 mg) Tablet Extended Release 10 meq PO BID RF: 0 metformin 1,000 mg Tablet 1,000 mg PO BIDM RF: 0 warfarin 5 mg Tablet 5 mg PO 4XWK RF: 0 montelukast [Singulair] 10 mg Tablet 10 mg PO QDD RF: 0 oxycodone 5 mg Tablet 5 mg PO BID RF: 0 levalbuterol HCl 0.31 mg/3 mL Solution For Nebulization 1 dose Inhalation DAILY PRN (Reason: Shortness Of Breath) RF: 0 metoprolol tartrate 25 mg Tablet 12.5 mg PO BIDM RF: 0 Spiriva with HandiHaler 18 mcg Capsule, W/Inhalation Device 1 cap INHALATION HS RF: 0 Probiotic Digestive Care 20 billion cell Capsule 2 tab PO QAM RF: 0 medroxyprogesterone 10 mg Tablet 10 mg PO QAM RF: 0 ropinirole 0.5 mg tablet 0.5 mg PO HS PRN (Reason: Restless Leg(S)) RF: 0 lansoprazole 30 mg capsule,delayed release(DR/EC) 30 mg PO QAM RF: 0 acetaminophen [Tylenol] 325 mg Tablet 650 mg PO HS RF: 0 cyanocobalamin (vitamin B-12) [Vitamin B-12] 500 mcg Tablet 500 mcg PO BID RF: 0 biotin 10 mg Tablet 30 mg PO QAM RF: 0 verapamil 120 mg tablet extended release 120 mg PO TID RF: 0 methotrexate sodium 25 mg/mL solution 17.5 mg subcut WK RF: 0 ferrous sulfate 325 mg (65 mg iron) Tablet 325 mg PO BID RF: 0 warfarin 5 mg tablet 7.5 mg PO 3XWK RF: 0 leucovorin calcium 5 mg tablet 5 mg PO WK RF: 0 furosemide 20 mg tablet 20 mg PO DAILY RF: 0 escitalopram oxalate 20 mg tablet 20 mg PO QAM RF: 0 Jardiance 10 mg tablet 10 mg PO DAILY RF: 0 Ozempic 1 mg/dose (2 mg/1.5 mL) pen injector 1 mg SUBCUT WK RF: 0 Discharge Orders: Discharge Order (Routine); Ordered 08/28/20 Ordered By: Willy Watts/Other Patient Handouts: Managing Type 2 Diabetes, A1C Admission Data Admit Date/Time: 08/27/20 15:54 Attending Provider: Willy Blandon Admit Provider: Miguel A Shepard Primary Care Provider: Landon Quiles Other Providers: Miguel A Shepard ; Cipriano Maguire Other Interventions: Discharge Summary Assessment (RN) Last Done: 08/28/20 14:32
[2020-08-29] MEDS ORDERED: WARFARIN SOD 7.5 MG TAB PO SCH (16:00)
== END 2020-08-28 16:15 | disposition home or self-care (01) ==
LOC: ED 11:12 → 3W 11:12 → SUATTDRO 15:54 → 3W 16:36
DX: G47.30 Sleep apnea, unspecified; I10 Essential (primary) hypertension; Z86.711 Personal history of pulmonary embolism; I47.1 Supraventricular tachycardia; N39.0 Urinary tract infection, site not specified; Z79.01 Long term (current) use of anticoagulants; Z85.3 Personal history of malignant neoplasm of breast; R19.7 Diarrhea, unspecified; E11.9 Type 2 diabetes mellitus without complications; N20.0 Calculus of kidney; J45.909 Unspecified asthma, uncomplicated; N28.1 Cyst of kidney, acquired; R74.02 Elevation of levels of lactic acid dehydrogenase [LDH]; Z86.718 Personal history of other venous thrombosis and embolism; R59.0 Localized enlarged lymph nodes

== ENCOUNTER 2021-01-23 19:44 | Inpatient (IN) ==
[2021-01-23 20:53] LABS: Hematocrit (blood only) 42.8 % (37-47); Hemoglobin 13.8 g/dL (12.0-16.0); Mean Corpuscular Hemoglobin 31.1 pg (25-34); Mean Corpuscular Hgb Conc 32.2 g/dL (32-36); Mean Corpuscular Volume 96.4 fL (80-100); Mean Platelet Volume 10.4 fL (7.4-10.4); Platelet Count 337 K/uL (130-400); RDW Coefficient of Variation 14.8 % (11.5-14.5); RDW Standard Deviation 52.4 fL (36.4-46.3); Red Blood Count 4.44 M/uL (4.2-5.4); White Blood Count 13.78 K/uL (4.8-10.8)
[2021-01-23 21:21] LABS: BUN Creatinine Ratio 13.3 (10-20); Blood Urea Nitrogen 16 mg/dl (7-18); Calcium 8.6 mg/dl (8.5-10.1); Carbon Dioxide 23 mmol/L (21-32); Chloride 107 mmol/L (98-107); Est GFR (African American) 55.3 ml/min; Est GFR (Non-African American) 47.7 ml/min; Glucose 155 mg/dl (70-99); Potassium 3.9 mmol/L (3.5-5.1); Sodium 140 mmol/L (136-145)
[2021-01-23] MEDS ORDERED: ONDANSETRON INJ 2 MG/ML 2 ML VIAL IV STA (23:43)
[2021-01-23] MEDS ORDERED: SODIUM CHLORIDE 0.9% 500 ML IV ONE (23:45)
[2021-01-23] MEDS ORDERED: MoRPHine SULFATE 4 MG/ML 1 ML CARP\\VIAL IV STA (23:51)
--- NOTE | 2021-01-23 23:51 | Emergency Department Note ---
Impression & Plan Hydronephrosis with renal and ureteral calculus obstruction Admit to the [facility] ED Provider Note NAME: CHANDNI CORDERO AGE: 65 SEX: F ARRIVES VIA: Walk-In INFORMANT: Patient ED PROVIDER(S): Yumiko No DO CHIEF COMPLAINT: Right lower quadrant abdominal pain PLAN: Disposition: Admit to the [facility] Condition: Fair MEDICAL DECISION MAKING: This is a 65-year-old female patient who presents to the emergency department with right lower quadrant abdominal pain for the past 3 days. The patient describes having a long history of kidney stones for which she is supposed to have a procedure performed in early 2021. Patient states that the pain she is experiencing today is too low for this to be a kidney stone. The pain is located in the right lower quadrant of the abdomen. I ordered a CT scan of the abdomen/pelvis to rule out acute appendicitis versus diverticulitis. She has no significant leukocytosis or fever. The initial CT scan read by stat rad was not completely conclusive. The patient's pain was treated with IV analgesia here in the emergency department. We awaited the radiology read by the [facility] radiologist which confirmed a ureteral stone causing hydronephrosis and was most likely the cause of the patient's intractable pain. I discussed the case with the [facility] and they will evaluate the patient for further management. Observation began at 2330 and was necessary in order for the patient to become more sober and to preclude an unnecessary admission. Upon reevaluation, observation revealed that the patient would be admitted. Patient discharged from observation at 0825. Triage Nursing notes reviewed and agree with them. Prior medical records reviewed Vital Signs: reviewed and remarkable for hypertension and tachycardia Differential diagnosis: Diverticulitis, colitis, appendicitis, ureteral colic ER treatment provided: IV normal saline IV Zofran x2 IV morphine x3 Diagnostics interpreted by me: Cardiac Monitoring: Normal sinus rhythm at 92 Laboratory studies: See below Imaging studies: As per stat read CT scan of the abdomen/pelvis: Moderate right hydronephrosis to level of 2 calculi at the right ureteropelvic junction/proximal ureter, largest 9.6 x 7 x 11 mm. No other renal urinary bladder is unremarkable. Or ureteral calculi. Bilateral renal cysts, largest in the upper pole right kidney 4.3 cm in diameter No bowel obstruction or ileus. Appendix not identified. No secondary evidence for appendicitis. No evidence for diverticulitis. No free fluid. Liver is unremarkable. Status post cholecystectomy. Slightly prominent intrahepatic bile ducts. Distal common bile duct normal in caliber. Pancreas is mildly atrophic. Spleen is unremarkable. No abdominal aortic aneurysm or dissection. Atherosclerotic vascular calcifications. Spine degenerative changes. The CT scan was also read this morning by radiology at [facility] who confi rmed an obstructing ureteral stone causing hydronephrosis. In comparison to previous renal ultrasound and KUB from 5 months ago, these were new findings. This read also confirms that they can visualize the appendix with no evidence of acute appendicitis and certainly no evidence of diverticulitis. HPI: 65/F arrives for evaluation of right lower quadrant abdominal pain. The patient states she has slowly developed some right lower quadrant abdominal pain over the past 3 days that she describes as achy in nature. Around 4 PM this afternoon, the patient took a nap but when she awoke from the nap the pain was intense and was associated with significant nausea and near vomiting. Since that time, the pain has been constant and she has developed chills with no fever. ROS: See above HPI for pertinent positives & negatives. A total of 10 systems reviewed and were otherwise negative. PAST MEDICAL HISTORY:See Below PAST SURGICAL HISTORY:See Below FAMILY HISTORY:See Below SOCIAL HISTORY:See Below HOME MEDICATIONS:See list ALLERGIES:See list VITALS:See Below PHYSICAL EXAMINATION: HEENT: Head - normocephalic and atraumatic Pupils are equal, round, and reactive to light. Extraocular eye muscles are intact, and sclera are anicteric. Nose - moist nasal mucosa without discharge. Mouth - moist buccal mucosa. Oropharynx is nonerythematous and there is no tonsillar exudate or edema noted. Neck: Supple; no cervical lymphadenopathy or nuchal rigidity Heart: Regular rate and rhythm. There is a normal S1 and S2 with no murmurs, clicks, or gallops appreciated. Lungs: Clear to auscultation bilaterally with no wheezes, rales, or rhonchi. Abdomen: Soft, exquisite tenderness to palpation over the entire right lower quadrant of the abdomen nondistended, with good bowel sounds. There are no palpable pulsatile masses or hepatosplenomegaly. There is no guarding, rigidity, or rebound noted. Extremities: No evidence of cyanosis, clubbing, or edema. There are easily palpable peripheral pulses. Skin: warm and dry with good turgor and no rashes. ED COURSE: Times/Reassessments: 2330: The patient was evaluated in room B 12. A complete history and physical was performed. An IV lock was initiated and labs were drawn as above. An order was placed for continuous cardiac monitoring. The patient was in a sinus tachycardia at 106. Number was placed for IV Zofran and IV morphine. The patient was bolused with IV normal saline solution. She will be kept n.p.o. She will go for a CT scan of the abdomen/pelvis a urine specimen will be collected. Patient was treated again with IV morphine for persistent pain and again with IV Zofran for persistent nausea. Patient was placed on a normal saline drip. I reviewed the results of the CT with the patient and her . The patient remained quite uncomfortable. I suggested that the patient remain here in the emergency department for observation and to have the CT scan reevaluated by the [facility] radiologist at 7 AM. Patient again had episodes of pain throughout the night and required 1 additional dose of IV morphine. CT scan was reevaluated by the [facility] radiologist this morning and I reviewed those results with the patient. Discussed the case with the [facility] hospitalist and they will evaluate for further management. Yumiko No DO Past Med/Surg History Medical History Asthma stable Atrial fibrillation on warfarin Breast cancer "Abnormal left breast mammogram 07/24/2010 Ultrasound-guided biopsy with finding of invasive adenocarcinoma Estrogen receptor negative, progesterone receptor negative, HER-2/mario negative Family history with genetic testing positive for BRCA1 mutation Status post bilateral mastectomies left breast stage pT3 pN2a M0 Immediate breast reconstruction with bilateral tissue expanders Removal of left tissue lead software test engineer due to infection November 2010 Removal of right breast tissue lead software test engineer due to infection December 2010 Status post chemotherapy with TAC Status post completion of radiation therapy 09/15/2011 received 6120 cGy" Chronic kidney disease (CKD) Chronic obstructive pulmonary disease stable Deep vein thrombosis 20 years ago - RLE post injury Degenerative disc disease Depression Diabetes mellitus, type 2 NIDDM Diverticulitis Fibromyalgia Gastroparesis GERD (gastroesophageal reflux disease) controlled History of breast cancer s/p B/L mastectomy + chemo/radiation History of kidney stones Hyperlipidemia Hypertension Limb alert care status LUE restricted - NO BP/IV/Needle sticks Lymphedema B/L LE Migraine Morbid obesity with BMI of 40.0-44.9, adult Nausea and vomiting after administration of anesthetic agent Neuropathy feet--severe to both legs/feet--uses assistive devices including mobilized wheelchair Osteoarthritis PSVT (paroxysmal supraventricular tachycardia) Pulmonary embolism 05/2017 Raynauds phenomenon Restless leg syndrome Restless legs syndrome Sleep apnea CPAP Surgical History H/O bilateral salpingo-oophorectomy H/O breast reconstruction History of bilateral mastectomy LEFT ARM RESTRICTION History of breast biopsy History of carpal tunnel release History of cholecystectomy History of D&C History of difficult intubation Hx glidescope intubation: 11/25/17: Grade 1 view with glidescope#3, ETT 7.0 (small mouth opening) History of exploratory laparotomy History of gynecological procedure mirena placed with D&C 11/24/18 History of herniorrhaphy UMBILICAL WITH MESH History of vascular access device MEDIPORT (RIGHT CHEST) Hx of foot surgery LEFT Family History Brother Family history of diabetes mellitus Father Family history of diabetes mellitus Mother Family history of diabetes mellitus Social History Smoking Status: Former smoker Tobacco Type: Cigarettes Second Hand Exposure: No; Hx Alcohol Use: No Hx Substance Use: No Preferred Language: Bahraini Communication Ability: Effective Cardiac Rehab Nurse Required: No Beliefs That Will Affect Care: None Current Living Situation: Spouse Current Living Situation Comment: raised ranch home, stair lift , ramp in place Feels Safe at Home: Yes Assistive Devices: Cane and Glasses Allergies Allergies Allergy/AdvReac Type Severity Reaction Status Date / Time codeine Allergy Intermediate PRURITUS, Verified 01/24/21 00:14 RASH gabapentin Allergy Intermediate ARMS, LEGS Verified 01/24/21 00:14 SWELLING aloe vera [From Vagisil] Allergy Mild Rash Verified 01/24/21 00:14 amitriptyline Allergy Mild ARMS, LEGS Verified 01/24/21 00:14 SWELLING benzocaine [From Vagisil] Allergy Mild Rash Verified 01/24/21 00:14 doxepin Allergy Mild ARMS, LEGS Verified 01/24/21 00:14 SWELLING hyoscyamine Allergy Mild ARMS, LEGS Verified 01/24/21 00:14 SWELLING mineral oil [From Vagisil] Allergy Mild Rash Verified 01/24/21 00:14 nickel Allergy Mild RASH Verified 01/24/21 00:14 potassium chloride Allergy Mild PRURITUS, Verified 01/24/21 00:14 [From Klor-Con] RASH resorcinol [From Vagisil] Allergy Mild Rash Verified 01/24/21 00:14 sitagliptin Allergy Mild ARMS, LEGS Verified 01/24/21 00:14 SWELLING starch [From Vagisil] Allergy Mild Rash Verified 01/24/21 00:14 vitamin E (d-alpha Allergy Mild Rash Verified 01/24/21 00:14 tocopherol) [From Vagisil] vitamins A and D Allergy Mild Rash Verified 01/24/21 00:14 [From Vagisil] adhesive AdvReac Intermediate Tape - Verified 01/24/21 00:14 rash/itching erythromycin base AdvReac Intermediate LAPPING MACHINE OPERATOR Verified 01/24/21 00:14 STOMACH CRAMPS Tricyclic Antidepressants Allergy Intermediate ARMS, LEGS Uncoded 01/24/21 00:14 SWELLING Home Meds Home Medications Medication Instructions Recorded Confirmed aspirin 81 mg tablet,delayed 81 mg PO QAM 11/09/17 01/24/21 release atorvastatin 20 mg tablet 20 mg PO QDD 11/09/17 01/24/21 levalbuterol HCl 0.31 mg/3 mL 1 dose INHALATION DAILY PRN 11/09/17 01/24/21 solution for nebulization metformin 1,000 mg tablet 1,000 mg PO BIDM 11/09/17 01/24/21 metoprolol tartrate 25 mg tablet 12.5 mg PO BIDM 11/09/17 01/24/21 oxycodone 5 mg tablet 5 mg PO BID 11/09/17 01/24/21 potassium citrate 10 mEq (1,080 See Rx Instructions .ROUTE .COMPLEX 11/09/17 01/24/21 mg) tablet,extended release warfarin 5 mg tablet 5 mg PO 4XWK 11/09/17 01/24/21 magnesium chloride 64 mg 128 mg PO HS 01/08/19 01/24/21 (magnesium chloride) tablet,delayed release magnesium chloride 64 mg 192 mg PO AMPM 01/08/19 01/24/21 (magnesium chloride) tablet,delayed release lansoprazole 30 mg capsule,delayed 30 mg PO QAM 02/13/19 01/24/21 release medroxyprogesterone 10 mg tablet 10 mg PO QAM 02/13/19 01/24/21 ropinirole 0.5 mg tablet 0.5 mg PO HS PRN 02/13/19 01/24/21 empagliflozin 10 mg tablet 10 mg PO DAILY 08/27/20 01/24/21 (Jardiance) escitalopram oxalate 20 mg tablet 20 mg PO QAM 08/27/20 01/24/21 ferrous sulfate 325 mg (65 mg 325 mg PO TID 08/27/20 01/24/21 iron) tablet furosemide 20 mg tablet 20 mg PO DAILY 08/27/20 01/24/21 leucovorin calcium 5 mg tablet 5 mg PO WK 08/27/20 01/24/21 methotrexate sodium 25 mg/mL 17.5 mg SUBCUT WK 08/27/20 01/24/21 injection solution semaglutide 1 mg/dose (2 mg/1.5 1 mg SUBCUT WK 08/27/20 01/24/21 mL) subcutaneous pen injector ([employer] verapamil 120 mg tablet,extended 120 mg PO TID 08/27/20 01/24/21 release warfarin 5 mg tablet 7.5 mg PO 3XWK 08/27/20 01/24/21 Results & Data (ED) Vital Signs Vital Signs - 24 hr 01/23/21 19:47 01/24/21 00:02 01/24/21 01:30 Temperature 36.7 C Temperature Source Temporal Artery Scan Pulse Rate 124 H 93 H 102 H Pulse Rate from SpO2 Sensor 102 H Respiratory Rate 16 22 17 Blood Pressure 160/85 H 166/89 H Blood Pressure Mean 110 114 Blood Pressure Position Sitting Pulse Oximetry 99 94 95 Oxygen Delivery Method Room Air Room Air Room Air Sepsis Recent Fever Within 48 Hours No Sepsis New/Unexplained Change in Mental Status No Sepsis Action Taken by Nursing No Action Required 01/24/21 02:00 01/24/21 02:30 01/24/21 03:30 Temperature Temperature Source Pulse Rate 99 H 97 H 96 H Pulse Rate from SpO2 Sensor 99 H 97 H Respiratory Rate 21 24 18 Blood Pressure 164/81 H Blood Pressure Mean 108 Blood Pressure Position Pulse Oximetry 93 93 96 Oxygen Delivery Method Room Air Room Air Sepsis Recent Fever Within 48 Hours Sepsis New/Unexplained Change in Mental Status Sepsis Action Taken by Nursing 01/24/21 04:00 01/24/21 05:00 01/24/21 06:00 Temperature Temperature Source Pulse Rate 99 H 113 H 114 H Pulse Rate from SpO2 Sensor 97 H 112 H 114 H Respiratory Rate 20 15 13 Blood Pressure 153/84 H 160/82 H 157/89 H Blood Pressure Mean 107 108 111 Blood Pressure Position Pulse Oximetry 97 94 96 Oxygen Delivery Method Room Air Room Air Room Air Sepsis Recent Fever Within 48 Hours Sepsis New/Unexplained Change in Mental Status Sepsis Action Taken by Nursing Laboratory Data Result diagrams: 01/23/21 20:40 01/23/21 20:40 Lab Results 01/23/21 01/23/21 01/23/21 Range/Units 20:40 20:40 23:57 WBC 13.78 H (4.8-10.8) K/uL RBC 4.44 (4.2-5.4) M/uL Hgb 13.8 (12.0-16.0) g/dL Hct 42.8 (37-47) % MCV 96.4 (80-100) fL MCH 31.1 (25-34) pg MCHC 32.2 (32-36) g/dL RDW Std Deviation 52.4 H (36.4-46.3) fL RDW Coeff of Maris 14.8 H (11.5-14.5) % Plt Count 337 (130-400) K/uL MPV 10.4 (7.4-10.4) fL Sodium 140 (136-145) mmol/L Potassium 3.9 (3.5-5.1) mmol/L Chloride 107 (98-107) mmol/L Carbon Dioxide 23 (21-32) mmol/L Anion Gap 10.0 (3-11) BUN 16 (7-18) mg/dl Creatinine 1.20 (0.6-1.2) mg/dl Est Cr Clr Drug Dosing Not Reportable Est GFR ( Amer) 55.3 ml/min Est GFR (Non-Af Amer) 47.7 ml/min BUN/Creatinine Ratio 13.3 (10-20) Glucose 155 H (70-99) mg/dl Calcium 8.6 (8.5-10.1) mg/dl Urine Color Yellow Urine Appearance Clear (Clear) Urine pH 5.0 (4.5-7.5) Ur Specific [place] 1.021 (1.000-1.030) Urine Protein Negative (Negative) Urine Glucose (UA) 3+ H (Negative) Urine Ketones Negative (Negative) Urine Blood 2+ H (Negative) Urine Nitrite Negative (Negative) Urine Bilirubin Negative (Negative) Urine Urobilinogen Negative (Negative) Ur Leukocyte Esterase 1+ H (Negative) Urine WBC (Auto) >30 H (0-5) /hpf Urine RBC (Auto) 5-10 H (0-4) /hpf U Hyaline Cast (Auto) 0 (0-5) /lpf U Epithel Cells (Auto) >30 H (0-5) /lpf Urine Bacteria (Auto) Negative (Negative) Urine Mucus Present A (None Prsent) Urine Yeast Budding A (None Prsent) Administered Medications Sodium Chloride (Nss) 500 mls @ 125 mls/hr IV .Q4H JIM Stop: 02/23/21 03:44 Last Admin: 01/24/21 07:57 Dose: 125 mls/hr Documented by: [id number] Infusion: 01/24/21 07:57 Dose: 125 mls/hr Documented by: [id number] Admin: 01/24/21 04:00 Dose: 125 mls/hr Documented by: [id number] Discontinued Medications Sodium Chloride (Nss) 500 mls @ 999 mls/hr IV .Q31M ONE Stop: 01/24/21 00:15 Last Infusion: 01/24/21 00:33 Dose: 0 mls/hr Documented by: [id number] Admin: 01/23/21 23:56 Dose: 999 mls/hr Documented by: [id number] Ioversol (Optiray 320 100ml) 92 ml IV ONCE ONE Stop: 01/24/21 01:45 Last Admin: 01/24/21 01:44 Dose: 92 ml Documented by: [id number] Morphine Sulfate (Morphine Sulfate 4 Mg/Ml 1 Ml Carp\\Vial) 4 mg IV NOW STA Stop: 01/23/21 23:52 Last Admin: 01/24/21 00:01 Dose: 4 mg Documented by: [id number] Morphine Sulfate (Morphine Sulfate 4 Mg/Ml 1 Ml Carp\\Vial) 4 mg IV NOW STA Stop: 01/24/21 00:40 Last Admin: 01/24/21 00:45 Dose: 4 mg Documented by: [id number] Morphine Sulfate (Morphine Sulfate 4 Mg/Ml 1 Ml Carp\\Vial) 4 mg IV NOW STA Stop: 01/24/21 03:34 Last Admin: 01/24/21 04:00 Dose: 4 mg Documented by: [id number] Ondansetron HCl (Ondansetron Inj 2 Mg/Ml 2 Ml Vial) 4 mg IV NOW STA Stop: 01/23/21 23:44 Last Admin: 01/23/21 23:57 Dose: 4 mg Documented by: [id number] Ondansetron HCl (Ondansetron Inj 2 Mg/Ml 2 Ml Vial) 4 mg IV NOW STA Stop: 01/24/21 00:40 Last Admin: 01/24/21 00:44 Dose: 4 mg Documented by: [id number] Imaging Data Radiologist's Impression: Abdomen/Pelvis CT 01/23/21 23:42 CT abd pelvis IV con only CLINICAL HISTORY: eval for appy vs divertic TECHNIQUE: Helical axial images of the abdomen and pelvis were obtained and displayed. Automated dose lowering techniques and/or adjustment according to patient size were utilized for this exam. This exam was performed with intravenous contrast. COMPARISON: Comparison is made to FINDINGS: Lower chest: No acute abnormality Liver: Unremarkable. No focal lesions are seen. Gallbladder and biliary tree: Patient is status post cholecystectomy. Physiologic prominence of the biliary ducts is noted. Pancreas: Unremarkable, no focal lesions. Spleen: Unremarkable. Adrenals: Unremarkable. Kidneys and ureters: Multiple bilateral renal cysts are seen. There is right hydronephrosis and hydroureter. In the proximal ureter, there are 2 obstructive stones measuring approximately 7 mm and 3 mm, respectively. Bladder: Unremarkable. Reproductive organs: Unremarkable. Bowel: Diverticulosis is seen without evidence of diverticulitis. Lymph nodes Retroperitoneal: Unremarkable. Mesenteric: Unremarkable. Pelvic: Unremarkable. Peritoneum: Normal Vessels: Atherosclerotic calcifications are seen. Abdominal wall: Unremarkable. Bones: Unremarkable. IMPRESSION: 1. Obstructive proximal right ureterolithiasis with resulting hydronephrosis and proximal hydroureter. Stones measure up to 7 mm in diameter. 2. The appendix is identified and is normal. Diverticulosis is seen without evidence of diverticulitis. 3. Additional findings as above. ACT 112: Negative or not required by law. Electronically signed by: Syed Cruz M.D. 01/24/2021 8:26 AM Discharge Plan Visit Data Chief Complaint: Flank Pain Stated Complaint: flank pain, nausea, diarrhea, chills ED Provider: Yumiko No Discharge Problem: Hydronephrosis with renal and ureteral calculus obstruction Forms Stand Alone Forms: My [facility] Prescriptions Prescriptions: No Action magnesium chloride 64 mg Tablet,Delayed Release (Dr/Ec) 128 mg PO HS RF: 0 magnesium chloride 64 mg Tablet,Delayed Release (Dr/Ec) 192 mg PO AMPM RF: 0 atorvastatin 20 mg Tablet 20 mg PO QDD RF: 0 aspirin 81 mg Tablet,Delayed Release (Dr/Ec) 81 mg PO QAM RF: 0 potassium citrate 10 mEq (1,080 mg) Tablet Extended Release See Rx Instructions .ROUTE .COMPLEX RF: 0 metformin 1,000 mg Tablet 1,000 mg PO BIDM RF: 0 warfarin 5 mg Tablet 5 mg PO 4XWK RF: 0 oxycodone 5 mg Tablet 5 mg PO BID RF: 0 levalbuterol HCl 0.31 mg/3 mL Solution For Nebulization 1 dose Inhalation DAILY PRN (Reason: Shortness Of Breath) RF: 0 metoprolol tartrate 25 mg Tablet 12.5 mg PO BIDM RF: 0 medroxyprogesterone 10 mg Tablet 10 mg PO QAM RF: 0 ropinirole 0.5 mg tablet 0.5 mg PO HS PRN (Reason: Restless Leg(S)) RF: 0 lansoprazole 30 mg capsule,delayed release(DR/EC) 30 mg PO QAM RF: 0 verapamil 120 mg tablet extended release 120 mg PO TID RF: 0 methotrexate sodium 25 mg/mL solution 17.5 mg subcut WK RF: 0 ferrous sulfate 325 mg (65 mg iron) Tablet 325 mg PO TID RF: 0 warfarin 5 mg tablet 7.5 mg PO 3XWK RF: 0 leucovorin calcium 5 mg tablet 5 mg PO WK RF: 0 furosemide 20 mg tablet 20 mg PO DAILY RF: 0 escitalopram oxalate 20 mg tablet 20 mg PO QAM RF: 0 Jardiance 10 mg tablet 10 mg PO DAILY RF: 0 Ozempic 1 mg/dose (2 mg/1.5 mL) pen injector 1 mg SUBCUT WK RF: 0 Referrals Referrals: Landon Quiles, [Primary Care Provider] -
[2021-01-24 00:05] LABS: Appearance Urine Clear (Clear); Bacteria Urine Automated Negative (Negative); Bilirubin Urine Negative (Negative); Blood Urine 2+ (Negative); Color Urine Yellow; Epithelial Cell Urine Auto >30 /lpf (0-5); Glucose Urine UA 3+ (Negative); Ketones Urine Negative (Negative); Leukocyte Esterase Urine 1+ (Negative); Nitrite Urine Negative (Negative); Protein Urine Negative (Negative); Specific Gravity Urine 1.021 (1.000-1.030); Urobilinogen Urine Negative (Negative); WBC Urine Automated >30 /hpf (0-5)
[2021-01-24] MEDS ORDERED: ONDANSETRON INJ 2 MG/ML 2 ML VIAL IV STA (00:39)
[2021-01-24] MEDS ORDERED: MoRPHine SULFATE 4 MG/ML 1 ML CARP\\VIAL IV STA ×2 (00:39→03:33)
[2021-01-24 01:24] LABS: Mucus Urine Present (None Prsent)
[2021-01-24 01:25] LABS: Cast Urine Automated 0 /lpf (0-5)
[2021-01-24] MEDS ORDERED: OPTIRAY 320 100ml IV ONE (01:44)
[2021-01-24] MEDS: SODIUM CHLORIDE 0.9% 500 ML IV SCH ×3 (04:00→11:29)
--- NOTE | 2021-01-24 08:27 | CT Scan Report ---
CT abd pelvis IV con only CLINICAL HISTORY: eval for appy vs divertic TECHNIQUE: Helical axial images of the abdomen and pelvis were obtained and displayed. Automated dose lowering techniques and/or adjustment according to patient size were utilized for this exam. This e xam was performed with intravenous contrast. COMPARISON: Comparison is made to FINDINGS: Lower chest: No acute abnormality Liver: Unremarkable. No focal lesions are seen. Gallbladder and biliary tree: Patient is status post cholecystectomy. Physiologic prominence of the b iliary ducts is noted. Pancreas: Unremarkable, no focal lesions. Spleen: Unremarkable. Adrenals: Unremarkable. Kidneys and ureters: Multiple bilateral renal cysts are seen. There is right hydronephrosis and hydro ureter. In the proximal ureter, there are 2 obstructive stones measuring approximately 7 mm and 3 mm, respectively. Bladder: Unremarkable. Reproductive organs: Unremarkable. Bowel: Diverticulosis is seen without evidence of diverticulitis. Lymph nodes Retroperitoneal: Unremarkable. Mesenteric: Unremarkable. Pelvic: Unremarkable. Peritoneum: Normal Vessels: Atherosclerotic calcifications are seen. Abdominal wall: Unremarkable. Bones: Unremarkable. IMPRESSION: 1. Obstructive proximal right ureterolithiasis with resulting hydronephrosis and proximal hydrourete r. Stones measure up to 7 mm in diameter. 2. The appendix is identified and is normal. Diverticulosis is seen without evidence of diverticulit is. 3. Additional findings as above. ACT 112: Negative or not required by law. Electronically signed by: Syed Cruz M.D. 01/24/2021 8:26 AM
--- NOTE | 2021-01-24 10:28 | History & Physical Report ---
Date of Service January 24, 2021 Assessment & Plan (1) Hydronephrosis with renal and ureteral calculus obstruction: Plan: Obstructing 7 mm stone - Consult urology - spoke with Dr. Law. Will plan for intervention tomorrow - NPO post-midnight - Starting IV Zosyn due to concern for associated complicated UTI. Hx of prior urine culture showing drug-resistant Enterococcus a few years ago. Admitted for complicated UTI earlier this year but culture grew multiple fouzia. - Pain management - Phergan for nausea - Continue IVF - Follow labs (2) Complicated UTI (urinary tract infection): Plan: See plan for #1 - Zosyn, await culture, fluids (3) Acute kidney injury superimposed on CKD: Plan: Creatinine today slightly worse than last night - Continue IVF - Plan is for urologic intervention tomorrow - Daily labs (4) Sleep apnea: Plan: CPAP will be ordered per protocol (5) Diabetes mellitus, type 2: Plan: - Holding outpatient diabetic meds - Baseline Lanuts 10 units BID - will titrate pending response - Sliding scale insulin - Accuchecks (6) PSVT (paroxysmal supraventricular tachycardia): Plan: Continue outpatient meds (7) GERD (gastroesophageal reflux disease): Plan: Continue PPI (8) Pulmonary embolism: Plan: History of chronic bilateral PE - on chronic anticoagulation. Will hold anticoagulation in anticipation of potential procedure. INR today is 2.0. - Daily INR ordered (9) Inflammatory polyarthropathy: Plan: Took her methotrexate as scheduled yesterday - Continue outpatient oxycodone Plan: Pt seen and reviewed with collaborating physician, Dr. Burroughs. Plan of care discussed and as outlined above. DVT prophylaxis: pt on chronic AC - may need heparin bridge pending clinical course Code Status: Full code Isela De La Cruz PA-C History of Present Illness Chief Complaint: right flank and groin pain Primary Care Provider: Landon Quiles DO This is a 65 y/o female with a PMH of DM2, seronegative inflammatory arthritis, CKD, LORE on CPAP, asthma, HTN, prior PE, hx breast CA s/p mastectomy/chemo/XRT, dyslipidemia, nephrolithiasis, RLS, and PAT who presented to the ED last night with severe right flank/RLQ/right groin pain. The patient reports a history of nephrolithiasis with stent placement in 2016 (Dr. Smith). In [place], she developed left flank pain, which she thought may be due to stones. However, imaging showed stones on the right, not left, so she saw PT for presumed muscular etiology. In Nov, she saw Pennie Hodgson PA-C due to the recurrent nephrolithiasis with a 5 mm stone in the right kidney. Based on the size, they decided to manage conservatively initially. However, over the past 2-3 weeks, pt has developed waxing and waning right flank pain. Over the past 4 days, she has developed associated RLQ and now right groin pain. Last evening, the pain suddenly became severe such that it woke her from a nap. It has continued since then with only mild relief from meds in the ED. She has associated nausea but no vomiting. She has also noted malaise, chills, and sweats over the past 4 days but no documented fevers. She denies dysuria, hematuria, urinary frequency or urgency. However, this AM, when she urinates, she reports only "dribbling urine." She also notes diarrhea for the past 4 days. Of note, she was recently treated with a Z-pack, followed by two courses of Augmentin, for a prolonged sinus infection. Finished antibiotics one week ago. Sinus symptoms have resolved. Allergies Allergy/AdvReac Type Severity Reaction Status Date / Time codeine Allergy Intermediate PRURITUS, Verified 01/24/21 00:14 RASH gabapentin Allergy Intermediate ARMS, LEGS Verified 01/24/21 00:14 SWELLING aloe vera [From Vagisil] Allergy Mild Rash Verified 01/24/21 00:14 amitriptyline Allergy Mild ARMS, LEGS Verified 01/24/21 00:14 SWELLING benzocaine [From Vagisil] Allergy Mild Rash Verified 01/24/21 00:14 doxepin Allergy Mild ARMS, LEGS Verified 01/24/21 00:14 SWELLING hyoscyamine Allergy Mild ARMS, LEGS Verified 01/24/21 00:14 SWELLING mineral oil [From Vagisil] Allergy Mild Rash Verified 01/24/21 00:14 nickel Allergy Mild RASH Verified 01/24/21 00:14 potassium chloride Allergy Mild PRURITUS, Verified 01/24/21 00:14 [From Klor-Con] RASH resorcinol [From Vagisil] Allergy Mild Rash Verified 01/24/21 00:14 sitagliptin Allergy Mild ARMS, LEGS Verified 01/24/21 00:14 SWELLING starch [From Vagisil] Allergy Mild Rash Verified 01/24/21 00:14 vitamin E (d-alpha Allergy Mild Rash Verified 01/24/21 00:14 tocopherol) [From Vagisil] vitamins A and D Allergy Mild Rash Verified 01/24/21 00:14 [From Vagisil] adhesive AdvReac Intermediate Tape - Verified 01/24/21 00:14 rash/itching erythromycin base AdvReac Intermediate PEDIATRICIAN Verified 01/24/21 00:14 STOMACH CRAMPS Tricyclic Antidepressants Allergy Intermediate ARMS, LEGS Uncoded 01/24/21 00:14 SWELLING Home Medications Medication Instructions Recorded Confirmed Type aspirin 81 mg tablet,delayed 81 mg PO QAM 11/09/17 01/24/21 History release atorvastatin 20 mg tablet 20 mg PO QDD 11/09/17 01/24/21 History levalbuterol HCl 0.31 mg/3 mL 1 dose INHALATION DAILY PRN 11/09/17 01/24/21 History solution for nebulization metoprolol tartrate 25 mg tablet 12.5 mg PO BIDM 11/09/17 01/24/21 History oxycodone 5 mg tablet 5 mg PO BID 11/09/17 01/24/21 History potassium citrate 10 mEq (1,080 See Rx Instructions .ROUTE .COMPLEX 11/09/17 01/24/21 History mg) tablet,extended release warfarin 5 mg tablet 5 mg PO 4XWK 11/09/17 01/24/21 History magnesium chloride 64 mg 128 mg PO HS 01/08/19 01/24/21 History (magnesium chloride) tablet,delayed release magnesium chloride 64 mg 192 mg PO AMPM 01/08/19 01/24/21 History (magnesium chloride) tablet,delayed release lansoprazole 30 mg capsule,delayed 30 mg PO QAM 02/13/19 01/24/21 History release medroxyprogesterone 10 mg tablet 10 mg PO QAM 02/13/19 01/24/21 History ropinirole 0.5 mg tablet 0.5 mg PO HS PRN 02/13/19 01/24/21 History empagliflozin 10 mg tablet 10 mg PO DAILY 08/27/20 01/24/21 History (Jardiance) escitalopram oxalate 20 mg tablet 20 mg PO QAM 08/27/20 01/24/21 History ferrous sulfate 325 mg (65 mg 325 mg PO TID 08/27/20 01/24/21 History iron) tablet furosemide 20 mg tablet 20 mg PO DAILY 08/27/20 01/24/21 History leucovorin calcium 5 mg tablet 5 mg PO WK 08/27/20 01/24/21 History methotrexate sodium 25 mg/mL 17.5 mg SUBCUT WK 08/27/20 01/24/21 History injection solution semaglutide 1 mg/dose (2 mg/1.5 1 mg SUBCUT WK 08/27/20 01/24/21 History mL) subcutaneous pen injector (Ozempic) verapamil 120 mg tablet,extended 120 mg PO TID 08/27/20 01/24/21 History release warfarin 5 mg tablet 7.5 mg PO 3XWK 08/27/20 01/24/21 History acetaminophen 650 mg 1,300 mg PO HS 01/24/21 01/24/21 History tablet,extended release metformin 500 mg tablet,extended 2,000 mg PO QDD 01/24/21 01/24/21 History release 24 hr montelukast 10 mg tablet 10 mg PO QDD 01/24/21 01/24/21 History gyndqpkjzpcn-vtahkasy-zuihom 1 tab PO DAILY 01/24/21 01/24/21 History tablet (Multivitamin 50 Plus) vitamin B complex 1 tab PO DAILY 01/24/21 01/24/21 History Past Med/Surg History Medical History (Updated 01/24/21 @ 11:20 by Ariadna De La Cruz PA-C) Asthma stable Atrial fibrillation on warfarin Breast cancer "Abnormal left breast mammogram 07/24/2010 Ultrasound-guided biopsy with finding of invasive adenocarcinoma Estrogen receptor negative, progesterone receptor negative, HER-2/mario negative Family history with genetic testing positive for BRCA1 mutation Status post bilateral mastectomies left breast stage pT3 pN2a M0 Immediate breast reconstruction with bilateral tissue expanders Removal of left tissue barley steeper due to infection November 2010 Removal of right breast tissue barley steeper due to infection December 2010 Status post chemotherapy with TAC Status post completion of radiation therapy 09/15/2011 received 6120 cGy" Chronic kidney disease (CKD) Chronic obstructive pulmonary disease stable Deep vein thrombosis 20 years ago - RLE post injury Degenerative disc disease Depression Diabetes mellitus, type 2 NIDDM Diverticulitis Fibromyalgia Gastroparesis GERD (gastroesophageal reflux disease) controlled History of breast cancer s/p B/L mastectomy + chemo/radiation History of kidney stones Hyperlipidemia Hypertension Inflammatory polyarthropathy Limb alert care status LUE restricted - NO BP/IV/Needle sticks Lymphedema B/L LE Migraine Morbid obesity with BMI of 40.0-44.9, adult Nausea and vomiting after administration of anesthetic agent Neuropathy feet--severe to both legs/feet--uses assistive devices including mobilized wheelchair Obstructive sleep apnea syndrome (05/03/11) Osteoarthritis PSVT (paroxysmal supraventricular tachycardia) Pulmonary embolism 05/2017 Raynauds phenomenon Restless leg syndrome Restless legs syndrome Sleep apnea CPAP Surgical History H/O bilateral salpingo-oophorectomy H/O breast reconstruction History of bilateral mastectomy LEFT ARM RESTRICTION History of breast biopsy History of carpal tunnel release History of cholecystectomy History of D&C History of difficult intubation Hx glidescope intubation: 11/25/17: Grade 1 view with glidescope#3, ETT 7.0 (small mouth opening) History of exploratory laparotomy History of gynecological procedure mirena placed with D&C 11/24/18 History of herniorrhaphy UMBILICAL WITH MESH History of vascular access device MEDIPORT (RIGHT CHEST) Hx of foot surgery LEFT Family History Brother Family history of diabetes mellitus Father Family history of diabetes mellitus Mother Family history of diabetes mellitus Social History Smoking Status: Former smoker Tobacco Type: Cigarettes Smoking End Date: 1984; Second Hand Exposure: No; Do You Dip or Chew Tobacco: No; Hx Alcohol Use: No Hx Substance Use: No Preferred Language: Lao Communication Ability: Effective Charge Entry Specialist Required: No Beliefs That Will Affect Care: None Current Living Situation: Spouse Current Living Situation Comment: raised ranch home, stair lift , ramp in place Feels Safe at Home: Yes Assistive Devices: Cane, CPAP, Hearing Aid - Bilateral and Walker Assistive Devices Comment: Reading glasses Review of Systems Review of Systems: All systems reviewed & are unremarkable except as noted in HPI & below Constitutional: + chills, + sweats, + fatigue and + malaise; no fever Eyes: no diplopia and no worsening vision Ear, Nose, Mouth, Throat: no nasal congestion, no nasal discharge, no sinus pain/pressure and no sore throat Respiratory: no cough, no dyspnea and no wheezing Cardiovascular: no chest pain, no dyspnea on exertion and no syncope Gastrointestinal: as per Subjective / HPI Genitourinary: as per Subjective / HPI Musculoskeletal: + back pain Integumentary: no rash and no yellowing of the skin Neurologic: no seizure-like activity and no headache(s) Psychiatric: no depression and no anxiety Physical Exam Constitutional: + not well developed, + not well nourished and no acute distress Eyes: + anicteric sclerae; no conjunctival abnormality Neck: trachea midline Respiratory: no respiratory distress and no labored breathing Auscultation: lungs clear to auscultation bilaterally; no rales, no rhonchi and no wheezes Cardiovascular: Rate/Rhythm: regular rhythm and + tachycardic Vessels: radial pulses present Extremities: normal capillary refill Gastrointestinal (Abdomen): Inspection/Auscultation: + abdomen distended (softly) and normal bowel sounds Percussion/Palpation: + abdomen tender (w orse in suprapubic, RLQ > LLQ) and abdomen soft; no guarding Musculoskeletal: Head/Neck/Chest: normocephalic, head atraumatic and neck supple Skin: normal turgor; no rashes and no jaundice Neurologic: moves all extremities; no focal motor deficits Psychiatric: A+Ox3, euthymic affect Results & Data Results & Data ([facility]) Vital Signs (Past 12 Hours) Vital Signs Temp Pulse Resp BP Pulse Ox 01/24/21 10:18 36.9 C 98 H 20 162/84 H 97 01/24/21 10:00 99 H 19 162/84 H 98 01/24/21 09:30 93 H 16 93 01/24/21 09:00 97 H 14 98 01/24/21 08:30 93 H 19 93 01/24/21 08:00 96 H 17 93 01/24/21 07:30 97 H 19 95 01/24/21 07:00 92 H 19 155/83 H 92 01/24/21 06:30 109 H 19 92 01/24/21 06:00 114 H 13 157/89 H 96 01/24/21 05:00 113 H 15 160/82 H 94 01/24/21 04:00 99 H 20 153/84 H 97 01/24/21 03:30 96 H 18 96 01/24/21 02:30 97 H 24 93 01/24/21 02:00 99 H 21 164/81 H 93 01/24/21 01:30 102 H 17 166/89 H 95 01/24/21 00:02 93 H 22 94 Laboratory Results Laboratory Results - last 24 hr 01/23/21 01/23/21 01/23/21 20:40 20:40 23:57 WBC 13.78 H RBC 4.44 Hgb 13.8 Hct 42.8 MCV 96.4 MCH 31.1 MCHC 32.2 RDW Std Deviation 52.4 H RDW Coeff of Maris 14.8 H Plt Count 337 MPV 10.4 Sodium 140 Potassium 3.9 Chloride 107 Carbon Dioxide 23 Anion Gap 10.0 BUN 16 Creatinine 1.20 Est Cr Clr Drug Dosing Not Reportable Est GFR ( Amer) 55.3 Est GFR (Non-Af Amer) 47.7 BUN/Creatinine Ratio 13.3 Glucose 155 H Calcium 8.6 Urine Color Yellow Urine Appearance Clear Urine pH 5.0 Ur Specific [place] 1.021 Urine Protein Negative Urine Glucose (UA) 3+ H Urine Ketones Negative Urine Blood 2+ H Urine Nitrite Negative Urine Bilirubin Negative Urine Urobilinogen Negative Ur Leukocyte Esterase 1+ H Urine WBC (Auto) >30 H Urine RBC (Auto) 5-10 H U Hyaline Cast (Auto) 0 U Epithel Cells (Auto) >30 H Urine Bacteria (Auto) Negative Urine Mucus Present A Urine Yeast Budding A SARS-CoV-2, RNA, NAAT 01/24/21 09:15 WBC RBC Hgb Hct MCV MCH MCHC RDW Std Deviation RDW Coeff of Maris Plt Count MPV Sodium Potassium Chloride Carbon Dioxide Anion Gap BUN Creatinine Est Cr Clr Drug Dosing Est GFR ( Amer) Est GFR (Non-Af Amer) BUN/Creatinine Ratio Glucose Calcium Urine Color Urine Appearance Urine pH Ur Specific [place] Urine Protein Urine Glucose (UA) Urine Ketones Urine Blood Urine Nitrite Urine Bilirubin Urine Urobilinogen Ur Leukocyte Esterase Urine WBC (Auto) Urine RBC (Auto) U Hyaline Cast (Auto) U Epithel Cells (Auto) Urine Bacteria (Auto) Urine Mucus Urine Yeast SARS-CoV-2, RNA, NAAT NEGATIVE Diagnostic Findings CT Abd/Pel 01/23/21 - 1. Obstructive proximal right ureterolithiasis with resulting hydronephrosis and proximal hydroureter. Stones measure up to 7 mm in diameter. 2. The appendix is identified and is normal. Diverticulosis is seen without evidence of diverticulitis. 3. Additional findings as above. Medications Administered Sodium Chloride (Nss) 500 mls @ 125 mls/hr IV .Q4H JIM Stop: 02/23/21 03:44 Last Admin: 01/24/21 07:57 Dose: 125 mls/hr Documented by: [id number] Infusion: 01/24/21 07:57 Dose: 125 mls/hr Documented by: [id number] Admin: 01/24/21 04:00 Dose: 125 mls/hr Documented by: [id number] Discontinued Medications Sodium Chloride (Nss) 500 mls @ 999 mls/hr IV .Q31M ONE Stop: 01/24/21 00:15 Last Infusion: 01/24/21 00:33 Dose: 0 mls/hr Documented by: [id number] Admin: 01/23/21 23:56 Dose: 999 mls/hr Documented by: [id number] Ioversol (Optiray 320 100ml) 92 ml IV ONCE ONE Stop: 01/24/21 01:45 Last Admin: 01/24/21 01:44 Dose: 92 ml Documented by: [id number] Morphine Sulfate (Morphine Sulfate 4 Mg/Ml 1 Ml Carp\\Vial) 4 mg IV NOW STA Stop: 01/23/21 23:52 Last Admin: 01/24/21 00:01 Dose: 4 mg Documented by: [id number] Morphine Sulfate (Morphine Sulfate 4 Mg/Ml 1 Ml Carp\\Vial) 4 mg IV NOW STA Stop: 01/24/21 00:40 Last Admin: 01/24/21 00:45 Dose: 4 mg Documented by: [id number] Morphine Sulfate (Morphine Sulfate 4 Mg/Ml 1 Ml Carp\\Vial) 4 mg IV NOW STA Stop: 01/24/21 03:34 Last Admin: 01/24/21 04:00 Dose: 4 mg Documented by: [id number] Ondansetron HCl (Ondansetron Inj 2 Mg/Ml 2 Ml Vial) 4 mg IV NOW STA Stop: 01/23/21 23:44 Last Admin: 01/23/21 23:57 Dose: 4 mg Documented by: [id number] Ondansetron HCl (Ondansetron Inj 2 Mg/Ml 2 Ml Vial) 4 mg IV NOW STA Stop: 01/24/21 00:40 Last Admin: 01/24/21 00:44 Dose: 4 mg Documented by: [id number] Code Status & VTE Plan VTE Prophylaxis Plan VTE Prophylaxis will be ordered: Yes Supervising Physician Co-Signing Physician Notes Attending Addendum: care coordinated with ASHLEY De La Cruz please refer to her notes for full details, I agree with her notes patient seen and examined, records reviewed by myself as well on exam, patient Seen resting in bed, appears tired, but not in distress States that she still has some right lower quadrant pain, no hematuria No fevers chills, nausea vomiting Had diarrhea at home No other symptoms VS noted and reviewed oriented x 3 , not in distress, speaks in sentences with no effort nor accessory muscle use normal rate, regular rhythm, no murmurs clear breath sounds bilaterally non distended, soft, Moderate tenderness right lower quadrant no bipedal edema, erythema, warmth no neuro deficits WBC 11.8 Hg 4.07 Crea 1[address] Abdomen pelvis: 7 mm proximal right UPJ stone, with hydronephrosis ASSESSMENT AND PLAN> Right UPJ stone, with obstructive uropathy Rule out UTI Chronic Coumadin use for history of PE Creatinine increased to 1.3 UA showing possible UTI IV fluids for now Tamsulosin daily As needed morphine in addition to usual oxycodone twice daily Zosyn IV day #1 (in light of methotrexate use) INR 2, Dr. Law not recommending reversal of anticoagulation at this time Hold Coumadin Clear liquids for now, n.p.o. after midnight for possible cystoscopy per Dr. Law other diagnoses and plan of care as per ASHLEY De La Cruz's notes Raúl Burroughs MD
[2021-01-24] MEDS ORDERED: ONDANSETRON INJ 2 MG/ML 2 ML VIAL IV PRN (10:30)
[2021-01-24] MEDS ORDERED: PIPERACILL/TAZOBAC CONSULT ACTIVE PRN (10:55)
[2021-01-24] MEDS ORDERED: PIPERACILLIN/TAZOBACTAM 4.5 GM in DEXTROSE 5% 100 ML IV ONE (10:55)
[2021-01-24] MEDS ORDERED: CARBOHYDRATES FOR HYPOGLYCEMIA PO PRN (10:56)
[2021-01-24] MEDS ORDERED: GLUCOSE 10 TABS/TUBE PO PRN (10:56)
[2021-01-24] MEDS ORDERED: GLUCOSE 40% GEL 15 GM TUBE PO PRN (10:56)
[2021-01-24] MEDS ORDERED: GLUCAGON FOR INJ 1 MG VIAL SQ PRN (10:56)
[2021-01-24] MEDS ORDERED: DEXTROSE 50% 50 ML SYRINGE IV PRN (10:56)
[2021-01-24] MEDS ORDERED: rOPINIRole HCL 0.25 MG TABLET PO PRN (11:04)
[2021-01-24] MEDS ORDERED: PROMETHAZINE HCL 12.5 MG in SODIUM CHLORIDE 0.9% 50 ML IV PRN (11:07)
[2021-01-24 11:25] LABS: Basophils # (auto) 0.01 K/uL (0-0.2); Basophils % (auto) 0.1 %; Eosinophils # (auto) 0.17 K/uL (0-0.5); Eosinophils % (auto) 1.4 %; Hematocrit (blood only) 38.7 % (37-47); Hemoglobin 12.3 g/dL (12.0-16.0); Immature Granulocytes # (auto) 0.09 K/uL (0.00-0.02); Immature Granulocytes % (auto) 0.8 %; Lymphocytes # (auto) 1.29 K/uL (1.2-3.4); Lymphocytes % (auto) 10.9 %; Mean Corpuscular Hemoglobin 30.2 pg (25-34); Mean Corpuscular Hgb Conc 31.8 g/dL (32-36); Mean Corpuscular Volume 95.1 fL (80-100); Mean Platelet Volume 10.4 fL (7.4-10.4); Monocytes # (auto) 1.12 K/uL (0.11-0.59); Monocytes % (auto) 9.4 %; Neutrophils % (auto) 77.4 %; Platelet Count 281 K/uL (130-400); RDW Coefficient of Variation 14.8 % (11.5-14.5); RDW Standard Deviation 51.3 fL (36.4-46.3); Red Blood Count 4.07 M/uL (4.2-5.4); White Blood Count 11.88 K/uL (4.8-10.8)
[2021-01-24] MEDS: MoRPHine SULFATE 4 MG/ML 1 ML CARP\\VIAL IV PRN ×2 (11:36→16:04)
[2021-01-24 11:39] LABS: Prothrombin Time 18.8 Seconds (9.0-12.0)
[2021-01-24 11:49] LABS: BUN Creatinine Ratio 11.4 (10-20); Calcium 8.8 mg/dl (8.5-10.1); Creatinine Clr Calc Pharmacy 53.9 ml/min; Est GFR (African American) 49.7 ml/min; Est GFR (Non-African American) 42.9 ml/min; Magnesium 2.4 mg/dl (1.8-2.4); Potassium 3.6 mmol/L (3.5-5.1)
[2021-01-24] MEDS ORDERED: LEUCOVORIN CALCIUM 5 MG TAB PO SCH (12:00)
[2021-01-24] MEDS: INSULIN ASPART 100 UNITS/ML 3 ML PEN SC SCH ×2 (13:41→18:15)
[2021-01-24] MEDS: VERAPAMIL HCL 120 MG TABCR PO SCH ×2 (14:18→19:37)
[2021-01-24] MEDS: MAGNESIUM CHLORIDE 64MG DELAYED REL TAB PO SCH ×3 (14:19→20:54)
[2021-01-24] MEDS: METOPROLOL TARTRATE 25 MG TAB PO SCH (16:07)
[2021-01-24] MEDS: MONTELUKAST SODIUM 10 MG TABLET PO SCH (16:07)
[2021-01-24] MEDS: ATORVASTATIN 20 MG TAB PO SCH (16:08)
[2021-01-24] MEDS: SODIUM CHLORIDE 0.9% 1000ML 1,000 ML IV SCH (16:18)
[2021-01-24] MEDS: PIPERACILLIN/TAZOBACTAM 4.5 GM in DEXTROSE 5% 100 ML IV SCH (16:19)
[2021-01-24] MEDS: oxyCODONE HCL IR 5 MG TAB (IMMEDIATE RELEASE) PO SCH (19:37)
[2021-01-24] MEDS: POTASSIUM CITRATE 10 MEQ TAB PO SCH (19:39)
--- NOTE | 2021-01-24 20:06 | Urology Consultation ---
Date of Consultation January 24, 2021 Assessment & Plan (1) Nephrolithiasis: Right proximal ureteral calculus Currently stable and comfortable Plan for intervention tomorrow morning via cystoscopy and stent placement on the right If febrile or otherwise decompensating overnight, we will plan to intervene sooner Risks, benefits, expectations discussed with the patient and the consent has been completed and has been placed on the chart History of Present Illness Attending Physician: Raúl Burroughs MD History of Present Illness 65y/o female with a long history of kidney stones and prior interventions Presented to the emergency room this morning with significant right flank pain and associated nausea Imaging shows an obstructing right ureteral calculus with hydronephrosis and perinephric and periureteral stranding She is afebrile and hemodynamically stable She is anticoagulated on warfarinhistory of PE and DVT She is mildly immunosuppressed with methotrexatesecondary to inflammatory polyarthropathy She has diabetic White blood cell count 11.88 Creatinine 1.3; BL 0.66 Allergies Allergy/AdvReac Type Severity Reaction Status Date / Time codeine Allergy Intermediate PRURITUS, Verified 01/24/21 00:14 RASH gabapentin Allergy Intermediate ARMS, LEGS Verified 01/24/21 00:14 SWELLING aloe vera [From Vagisil] Allergy Mild Rash Verified 01/24/21 00:14 amitriptyline Allergy Mild ARMS, LEGS Verified 01/24/21 00:14 SWELLING benzocaine [From Vagisil] Allergy Mild Rash Verified 01/24/21 00:14 doxepin Allergy Mild ARMS, LEGS Verified 01/24/21 00:14 SWELLING hyoscyamine Allergy Mild ARMS, LEGS Verified 01/24/21 00:14 SWELLING mineral oil [From Vagisil] Allergy Mild Rash Verified 01/24/21 00:14 nickel Allergy Mild RASH Verified 01/24/21 00:14 potassium chloride Allergy Mild PRURITUS, Verified 01/24/21 00:14 [From Klor-Con] RASH resorcinol [From Vagisil] Allergy Mild Rash Verified 01/24/21 00:14 sitagliptin Allergy Mild ARMS, LEGS Verified 01/24/21 00:14 SWELLING starch [From Vagisil] Allergy Mild Rash Verified 01/24/21 00:14 vitamin E (d-alpha Allergy Mild Rash Verified 01/24/21 00:14 tocopherol) [From Vagisil] vitamins A and D Allergy Mild Rash Verified 01/24/21 00:14 [From Vagisil] adhesive AdvReac Intermediate Tape - Verified 01/24/21 00:14 rash/itching erythromycin base AdvReac Intermediate HEATER MECHANIC Verified 01/24/21 00:14 STOMACH CRAMPS Tricyclic Antidepressants Allergy Intermediate ARMS, LEGS Uncoded 01/24/21 00:14 SWELLING Home Medications Medication Instructions Recorded Confirmed Type aspirin 81 mg tablet,delayed 81 mg PO QAM 11/09/17 01/24/21 History release atorvastatin 20 mg tablet 20 mg PO QDD 11/09/17 01/24/21 History levalbuterol HCl 0.31 mg/3 mL 1 dose INHALATION DAILY PRN 11/09/17 01/24/21 History solution for nebulization metoprolol tartrate 25 mg tablet 12.5 mg PO BIDM 11/09/17 01/24/21 History oxycodone 5 mg tablet 5 mg PO BID 11/09/17 01/24/21 History potassium citrate 10 mEq (1,080 See Rx Instructions .ROUTE .COMPLEX 11/09/17 01/24/21 History mg) tablet,extended release warfarin 5 mg tablet 5 mg PO 4XWK 11/09/17 01/24/21 History magnesium chloride 64 mg 128 mg PO HS 01/08/19 01/24/21 History (magnesium chloride) tablet,delayed release magnesium chloride 64 mg 192 mg PO AMPM 01/08/19 01/24/21 History (magnesium chloride) tablet,delayed release lansoprazole 30 mg capsule,delayed 30 mg PO QAM 02/13/19 01/24/21 History release medroxyprogesterone 10 mg tablet 10 mg PO QAM 02/13/19 01/24/21 History ropinirole 0.5 mg tablet 0.5 mg PO HS PRN 02/13/19 01/24/21 History empagliflozin 10 mg tablet 10 mg PO DAILY 08/27/20 01/24/21 History (Jardiance) escitalopram oxalate 20 mg tablet 20 mg PO QAM 08/27/20 01/24/21 History ferrous sulfate 325 mg (65 mg 325 mg PO TID 08/27/20 01/24/21 History iron) tablet furosemide 20 mg tablet 20 mg PO DAILY 08/27/20 01/24/21 History leucovorin calcium 5 mg tablet 5 mg PO WK 08/27/20 01/24/21 History methotrexate sodium 25 mg/mL 17.5 mg SUBCUT WK 08/27/20 01/24/21 History injection solution semaglutide 1 mg/dose (2 mg/1.5 1 mg SUBCUT WK 08/27/20 01/24/21 History mL) subcutaneous pen injector (Ozempic) verapamil 120 mg tablet,extended 120 mg PO TID 08/27/20 01/24/21 History release warfarin 5 mg tablet 7.5 mg PO 3XWK 08/27/20 01/24/21 History acetaminophen 650 mg 1,300 mg PO HS 01/24/21 01/24/21 History tablet,extended release metformin 500 mg tablet,extended 2,000 mg PO QDD 01/24/21 01/24/21 History release 24 hr montelukast 10 mg tablet 10 mg PO QDD 01/24/21 01/24/21 History atteywvheedt-reqovozs-sqmtqf 1 tab PO DAILY 01/24/21 01/24/21 History tablet (Multivitamin 50 Plus) vitamin B complex 1 tab PO DAILY 01/24/21 01/24/21 History Patient History Medical History Asthma stable Atrial fibrillation on warfarin Breast cancer "Abnormal left breast mammogram 07/24/2010 Ultrasound-guided biopsy with finding of invasive adenocarcinoma Estrogen receptor negative, progesterone receptor negative, HER-2/mario negative Family history with genetic testing positive for BRCA1 mutation Status post bilateral mastectomies left breast stage pT3 pN2a M0 Immediate breast reconstruction with bilateral tissue expanders Removal of left tissue procedure writer due to infection November 2010 Removal of right breast tissue procedure writer due to infection December 2010 Status post chemotherapy with TAC Status post completion of radiation therapy 09/15/2011 received 6120 cGy" Chronic kidney disease (CKD) Chronic obstructive pulmonary disease stable Deep vein thrombosis 20 years ago - RLE post injury Degenerative disc disease Depression Diabetes mellitus, type 2 NIDDM Diverticulitis Fibromyalgia Gastroparesis GERD (gastroesophageal reflux disease) controlled History of breast cancer s/p B/L mastectomy + chemo/radiation History of kidney stones Hyperlipidemia Hypertension Inflammatory polyarthropathy Limb alert care status LUE restricted - NO BP/IV/Needle sticks Lymphedema B/L LE Migraine Morbid obesity with BMI of 40.0-44.9, adult Nausea and vomiting after administration of anesthetic agent Neuropathy feet--severe to both legs/feet--uses assistive devices including mobilized wheelchair Obstructive sleep apnea syndrome (05/03/11) Osteoarthritis PSVT (paroxysmal supraventricular tachycardia) Pulmonary embolism 05/2017 Raynauds phenomenon Restless leg syndrome Restless legs syndrome Sleep apnea CPAP Surgical History H/O bilateral salpingo-oophorectomy H/O breast reconstruction History of bilateral mastectomy LEFT ARM RESTRICTION History of breast biopsy History of carpal tunnel release History of cholecystectomy History of D&C History of difficult intubation Hx glidescope intubation: 11/25/17: Grade 1 view with glidescope#3, ETT 7.0 (small mouth opening) History of exploratory laparotomy History of gynecological procedure mirena placed with D&C 11/24/18 History of herniorrhaphy UMBILICAL WITH MESH History of vascular access device MEDIPORT (RIGHT CHEST) Hx of foot surgery LEFT Family History Brother Family history of diabetes mellitus Father Family history of diabetes mellitus Mother Family history of diabetes mellitus Social History Smoking Status: Former smoker Tobacco Type: Cigarettes Smoking End Date: 1984; Second Hand Exposure: No; Do You Dip or Chew Tobacco: No; Hx Alcohol Use: No Hx Substance Use: No Preferred Language: Luxembourgish Communication Ability: Effective Main Entree Cook And Cashier Required: No Beliefs That Will Affect Care: None Current Living Situation: Spouse Current Living Situation Comment: raised ranch home, stair lift , ramp in place Feels Safe at Home: Yes Assistive Devices: Cane, CPAP, Hearing Aid - Bilateral and Walker Assistive Devices Comment: Reading glasses Physical Exam Physical Exam: relatively comfortable appearing Constitutional: well developed and well nourished Neck: neck nontender Respiratory: normal respiratory effort; no respiratory distress and does not use accessory muscles Cardiovascular: Rate/Rhythm: regular rate Vessels: radial pulses present Extremities: no edema Gastrointestinal (Abdomen): Inspection/Auscultation: abdomen normal to inspection Percussion/Palpation: abdomen soft; abdomen nontender and no guarding Musculoskeletal: Head/Neck/Chest: normocephalic and head atraumatic Extremities: extremities normal to inspection Skin: no rashes and no lesions Trauma: no evidence of skin trauma Neurologic: awake; not obtunded Speech / Cognition: normal speech Motor/Sensory: no tremor Psychiatric: Orientation: alert and oriented x 3 Genitourinary: mild right CVA tenderness Lymphatic: no lymphadenopathy Results & Data ([facility]) Vital Signs (Past 12 Hours) Vital Signs Temp Pulse Pulse Resp BP BP Pulse Ox 01/24/21 14:34 36.7 C 94 H 16 138/85 95 01/24/21 10:40 36.8 C 100 H 18 146/80 H 96 01/24/21 10:38 36.8 C 100 H 18 146/80 H 96 01/24/21 10:18 36.9 C 98 H 20 162/84 H 97 01/24/21 10:00 99 H 19 162/84 H 98 01/24/21 09:30 93 H 16 93 01/24/21 09:00 97 H 14 98 01/24/21 08:30 93 H 19 93 01/24/21 08:00 96 H 17 93 PG Care Time/CCT Total # of Minutes Spent Total Time Spent with Patient: Total time spent is greater than 50% in coordination of care (as documented) at patient's floor/unit and/or counseling patient: Coding Level of Care Code 69928 Inpt Consult Level 4 Diagnoses Nephrolithiasis N20.0
[2021-01-24] MEDS: INSULIN GLARGINE SOLOSTAR 100 UNITS/ML 3 ML PEN SC SCH (20:40)
[2021-01-25] MEDS: oxyCODONE HCL IR 5 MG TAB (IMMEDIATE RELEASE) PO SCH ×2 (00:25→20:17)
[2021-01-25] MEDS: PIPERACILLIN/TAZOBACTAM 4.5 GM in DEXTROSE 5% 100 ML IV SCH ×3 (00:25→17:41)
[2021-01-25] MEDS: INSULIN ASPART 100 UNITS/ML 3 ML PEN SC SCH ×5 (00:31→20:18)
[2021-01-25] MEDS: SODIUM CHLORIDE 0.9% 1000ML 1,000 ML IV SCH ×2 (01:45→13:11)
[2021-01-25 06:28] LABS: Basophils # (auto) 0.01 K/uL (0-0.2); Basophils % (auto) 0.1 %; Eosinophils # (auto) 0.23 K/uL (0-0.5); Eosinophils % (auto) 2.9 %; Hematocrit (blood only) 36.4 % (37-47); Hemoglobin 11.4 g/dL (12.0-16.0); Immature Granulocytes # (auto) 0.02 K/uL (0.00-0.02); Immature Granulocytes % (auto) 0.3 %; Lymphocytes # (auto) 1.26 K/uL (1.2-3.4); Lymphocytes % (auto) 15.8 %; Mean Corpuscular Hemoglobin 30.4 pg (25-34); Mean Corpuscular Hgb Conc 31.3 g/dL (32-36); Mean Corpuscular Volume 97.1 fL (80-100); Mean Platelet Volume 10.2 fL (7.4-10.4); Monocytes # (auto) 0.75 K/uL (0.11-0.59); Monocytes % (auto) 9.4 %; Neutrophils # (auto) 5.68 K/uL (1.4-6.5); Neutrophils % (auto) 71.5 %; Platelet Count 263 K/uL (130-400); RDW Standard Deviation 53.5 fL (36.4-46.3); Red Blood Count 3.75 M/uL (4.2-5.4); White Blood Count 7.95 K/uL (4.8-10.8)
[2021-01-25 06:38] LABS: INR 1.8 (0.9-1.1); Prothrombin Time 17.6 Seconds (9.0-12.0)
[2021-01-25 06:46] LABS: BUN Creatinine Ratio 9.9 (10-20); Calcium 8.4 mg/dl (8.5-10.1); Creatinine Clr Calc Pharmacy 56.9 ml/min; Est GFR (African American) 53.2 ml/min; Est GFR (Non-African American) 45.9 ml/min; Potassium 3.6 mmol/L (3.5-5.1)
--- NOTE | 2021-01-25 07:02 | Anesthesiology Consultation ---
Date of Service January 25, 2021 Assessment & Plan (1) Encounter for pre-operative examination: Chart Review Chart Review: Acceptable Risk for Surgery and Patient NOT seen in Pre Admission Testing Consults Requested none History Surgery Operation Date: 01/25/21 11:00 Proposed Procedures p Cystoscopy; Right Stent Insertion - Gopi Law MD Height/Weight Height: 5 ft 4 in Weight: 114.7 kg Allergies Allergy/AdvReac Type Severity Reaction Status Date / Time codeine Allergy Intermediate PRURITUS, Verified 01/24/21 00:14 RASH gabapentin Allergy Intermediate ARMS, LEGS Verified 01/24/21 00:14 SWELLING aloe vera [From Vagisil] Allergy Mild Rash Verified 01/24/21 00:14 amitriptyline Allergy Mild ARMS, LEGS Verified 01/24/21 00:14 SWELLING benzocaine [From Vagisil] Allergy Mild Rash Verified 01/24/21 00:14 doxepin Allergy Mild ARMS, LEGS Verified 01/24/21 00:14 SWELLING hyoscyamine Allergy Mild ARMS, LEGS Verified 01/24/21 00:14 SWELLING mineral oil [From Vagisil] Allergy Mild Rash Verified 01/24/21 00:14 nickel Allergy Mild RASH Verified 01/24/21 00:14 potassium chloride Allergy Mild PRURITUS, Verified 01/24/21 00:14 [From Klor-Con] RASH resorcinol [From Vagisil] Allergy Mild Rash Verified 01/24/21 00:14 sitagliptin Allergy Mild ARMS, LEGS Verified 01/24/21 00:14 SWELLING starch [From Vagisil] Allergy Mild Rash Verified 01/24/21 00:14 vitamin E (d-alpha Allergy Mild Rash Verified 01/24/21 00:14 tocopherol) [From Vagisil] vitamins A and D Allergy Mild Rash Verified 01/24/21 00:14 [From Vagisil] adhesive AdvReac Intermediate Tape - Verified 01/24/21 00:14 rash/itching erythromycin base AdvReac Intermediate BEHAVIOR THERAPIST Verified 01/24/21 00:14 STOMACH CRAMPS Tricyclic Antidepressants Allergy Intermediate ARMS, LEGS Uncoded 01/24/21 00:14 SWELLING Medications Home Medications Medication Instructions Recorded Confirmed Last Taken aspirin 81 mg tablet,delayed 81 mg PO QAM 11/09/17 01/24/21 01/23/21 release atorvastatin 20 mg tablet 20 mg PO QDD 11/09/17 01/24/21 01/22/21 levalbuterol HCl 0.31 mg/3 mL 1 dose INHALATION DAILY PRN 11/09/17 01/24/21 02/12/19 21:00 solution for nebulization metoprolol tartrate 25 mg tablet 12.5 mg PO BIDM 11/09/17 01/24/21 01/23/21 08:00 oxycodone 5 mg tablet 5 mg PO BID 11/09/17 01/24/21 01/22/21 potassium citrate 10 mEq (1,080 See Rx Instructions .ROUTE .COMPLEX 11/09/17 01/24/21 01/23/21 08:00 mg) tablet,extended release warfarin 5 mg tablet 5 mg PO 4XWK 11/09/17 01/24/21 01/22/21 magnesium chloride 64 mg 128 mg PO HS 01/08/19 01/24/21 01/22/21 (magnesium chloride) tablet,delayed release magnesium chloride 64 mg 192 mg PO AMPM 01/08/19 01/24/21 01/23/21 08:00 (magnesium chloride) tablet,delayed release lansoprazole 30 mg capsule,delayed 30 mg PO QAM 02/13/19 01/24/21 01/23/21 release medroxyprogesterone 10 mg tablet 10 mg PO QAM 02/13/19 01/24/21 01/23/21 ropinirole 0.5 mg tablet 0.5 mg PO HS PRN 02/13/19 01/24/21 02/11/19 empagliflozin 10 mg tablet 10 mg PO DAILY 08/27/20 01/24/21 01/23/21 (Jardiance) escitalopram oxalate 20 mg tablet 20 mg PO QAM 08/27/20 01/24/21 01/23/21 ferrous sulfate 325 mg (65 mg 325 mg PO TID 08/27/20 01/24/21 01/23/21 12:00 iron) tablet furosemide 20 mg tablet 20 mg PO DAILY 08/27/20 01/24/21 Unknown leucovorin calcium 5 mg tablet 5 mg PO WK 08/27/20 01/24/21 01/17/21 methotrexate sodium 25 mg/mL 17.5 mg SUBCUT WK 08/27/20 01/24/21 01/23/21 injection solution semaglutide 1 mg/dose (2 mg/1.5 1 mg SUBCUT WK 08/27/20 01/24/21 01/23/21 mL) subcutaneous pen injector (Ozempic) verapamil 120 mg tablet,extended 120 mg PO TID 08/27/20 01/24/21 01/23/21 08:00 release warfarin 5 mg tablet 7.5 mg PO 3XWK 08/27/20 01/24/21 01/21/21 acetaminophen 650 mg 1,300 mg PO HS 01/24/21 01/24/21 Unknown tablet,extended release metformin 500 mg tablet,extended 2,000 mg PO QDD 01/24/21 01/24/21 01/23/21 release 24 hr montelukast 10 mg tablet 10 mg PO QDD 01/24/21 01/24/21 01/23/21 prhtkcfsltwo-tmmdkcyh-sdqior 1 tab PO DAILY 01/24/21 01/24/21 Unknown tablet (Multivitamin 50 Plus) vitamin B complex 1 tab PO DAILY 01/24/21 01/24/21 01/23/21 Active Medications Generic Name Dose Route Start Last Admin Trade Name Freq PRN Reason Stop Dose Admin Atorvastatin Calcium 20 mg 01/24/21 16:30 01/24/21 16:08 Atorvastatin 20 Mg Tab PO 02/23/21 16:29 20 mg QDD JIM Administration Promethazine HCl 12.5 mg/ 50.5 mls @ 202 mls/hr 01/24/21 11:07 01/24/21 18:29 Sodium Chloride IV 02/23/21 11:06 Infused Q6H PRN Infusion Nausea And Vomiting Piperacillin Sod/Tazobactam 120 mls @ 30 mls/hr 01/24/21 17:00 01/25/21 04:25 Sod 4.5 gm/ Dextrose IV 02/03/21 16:59 Infused Q8H JIM Infusion Protocol Sodium Chloride 1,000 mls @ 100 mls/hr 01/24/21 16:00 01/25/21 01:45 Nss 1000ml IV 02/23/21 15:59 100 mls/hr .Q10H JIM Administration Insulin Aspart 0 units 01/24/21 12:00 01/25/21 05:37 Insulin Aspart 100 Units/Ml 3 Ml Pen SC 02/23/21 11:59 Not Given Q6 JIM Insulin Glargine 10 units 01/24/21 21:00 01/24/21 20:40 Insulin Glargine Solostar 100 Units/Ml 3 Ml Pen SC 02/23/21 20:59 10 units BID JIM Administration Leucovorin Calcium 5 mg 01/24/21 12:00 01/24/21 16:15 Leucovorin Calcium 5 Mg Tab PO 02/23/21 11:59 5 mg Sa@0900 JIM Administration Magnesium Chloride 128 mg 01/24/21 21:00 01/24/21 20:54 Magnesium Chloride 64mg Delayed Rel Tab PO 02/23/21 20:59 128 mg HS JIM Administration Magnesium Chloride 192 mg 01/24/21 12:00 01/24/21 18:22 Magnesium Chloride 64mg Delayed Rel Tab PO 02/23/21 11:59 192 mg BIDM JIM Administration Metoprolol Tartrate 12.5 mg 01/24/21 17:00 01/24/21 16:07 Metoprolol Tartrate 25 Mg Tab PO 02/23/21 16:59 12.5 mg BIDM JIM Administration Montelukast Sodium 10 mg 01/24/21 16:30 01/24/21 16:07 Montelukast Sodium 10 Mg Tablet PO 02/23/21 16:29 10 mg QDD JIM Administration Morphine Sulfate 4 mg 01/24/21 10:30 01/24/21 16:04 Morphine Sulfate 4 Mg/Ml 1 Ml Carp\\Vial IV 02/07/21 10:29 4 mg Q4H PRN Administration Pain Oxycodone HCl 5 mg 01/24/21 20:00 01/25/21 00:25 Oxycodone Hcl Ir 5 Mg Tab (Immediate Release) PO 02/07/21 19:59 5 mg BID@0000,2000 JIM Administration Potassium Citrate 20 meq 01/24/21 21:00 01/24/21 19:39 Potassium Citrate 10 Meq Tab PO 02/23/21 20:59 20 meq PM JIM Administration Verapamil HCl 120 mg 01/24/21 14:00 01/24/21 19:37 Verapamil Hcl 120 Mg Tabcr PO 02/23/21 13:59 120 mg TID JIM Administration Past Medical History Medical History Asthma stable Atrial fibrillation on warfarin Breast cancer "Abnormal left breast mammogram 07/24/2010 Ultrasound-guided biopsy with finding of invasive adenocarcinoma Estrogen receptor negative, progesterone receptor negative, HER-2/mario negative Family history with genetic testing positive for BRCA1 mutation Status post bilateral mastectomies left breast stage pT3 pN2a M0 Immediate breast reconstruction with bilateral tissue expanders Removal of left tissue social service agency director due to infection November 2010 Removal of right breast tissue social service agency director due to infection December 2010 Status post chemotherapy with TAC Status post completion of radiation therapy 09/15/2011 received 6120 cGy" Chronic kidney disease (CKD) Chronic obstructive pulmonary disease stable Deep vein thrombosis 20 years ago - RLE post injury Degenerative disc disease Depression Diabetes mellitus, type 2 NIDDM Diverticulitis Fibromyalgia Gastroparesis GERD (gastroesophageal reflux disease) controlled History of breast cancer s/p B/L mastectomy + chemo/radiation History of kidney stones Hyperlipidemia Hypertension Inflammatory polyarthropathy Limb alert care status LUE restricted - NO BP/IV/Needle sticks Lymphedema B/L LE Migraine Morbid obesity with BMI of 40.0-44.9, adult Nausea and vomiting after administration of anesthetic agent Neuropathy feet--severe to both legs/feet--uses assistive devices including mobilized wheelchair Obstructive sleep apnea syndrome (05/03/11) Osteoarthritis PSVT (paroxysmal supraventricular tachycardia) Pulmonary embolism 05/2017 Raynauds phenomenon Restless leg syndrome Restless legs syndrome Sleep apnea CPAP Past Family History Family History Brother Family history of diabetes mellitus Father Family history of diabetes mellitus Mother Family history of diabetes mellitus Past Surgical History Surgical History H/O bilateral salpingo-oophorectomy H/O breast reconstruction History of bilateral mastectomy LEFT ARM RESTRICTION History of breast biopsy History of carpal tunnel release History of cholecystectomy History of D&C History of difficult intubation Hx glidescope intubation: 11/25/17: Grade 1 view with glidescope#3, ETT 7.0 (small mouth opening) History of exploratory laparotomy History of gynecological procedure mirena placed with D&C 11/24/18 History of herniorrhaphy UMBILICAL WITH MESH History of vascular access device MEDIPORT (RIGHT CHEST) Hx of foot surgery LEFT Social History Smoking Status: Former smoker tobacco type: cigarettes Do You Dip or Chew Tobacco: No Smoking End Date: 1984 Hx Alcohol Use: No Hx Substance Use: No substance use type: does not use Physical Exam Vital Signs Last Vital Signs Temp 98.4 F 01/24/21 23:00 Pulse 114 H 01/24/21 23:00 Resp 20 01/24/21 23:00 BP 136/84 01/24/21 23:00 Pulse Ox 95 01/24/21 23:00 Testing Laboratory Results 01/25/21 06:09 01/25/21 06:09 PT 17.6 Seconds (9.0-12.0) H 01/25/21 06:09 INR 1.8 (0.9-1.1) H 01/25/21 06:09 Urine Color Yellow 01/23/21 23:57 Urine Appearance Clear (Clear) 01/23/21 23:57 Urine pH 5.0 (4.5-7.5) 01/23/21 23:57 Ur Specific [place] 1.021 (1.000-1.030) 01/23/21 23:57 Urine Protein Negative (Negative) 01/23/21 23:57 Urine Glucose (UA) 3+ (Negative) H 01/23/21 23:57 Urine Ketones Negative (Negative) 01/23/21 23:57 Urine Nitrite Negative (Negative) 01/23/21 23:57 Ur Leukocyte Esterase 1+ (Negative) H 01/23/21 23:57 Urine WBC (Auto) >30 /hpf (0-5) H 01/23/21 23:57 Urine RBC (Auto) 5-10 /hpf (0-4) H 01/23/21 23:57 U Hyaline Cast (Auto) 0 /lpf (0-5) 01/23/21 23:57 U Epithel Cells (Auto) >30 /lpf (0-5) H 01/23/21 23:57 Urine Bacteria (Auto) Negative (Negative) 01/23/21 23:57 01/25/21 01/25/21 01/24/21 05:36 00:30 20:34 POC Glucose 133 H 107 H 136 H Electrocardiogram Date: 02/13/19 Findings: + NSR @ (with PACs)
[2021-01-25] MEDS: INSULIN GLARGINE SOLOSTAR 100 UNITS/ML 3 ML PEN SC SCH ×2 (08:07→20:19)
[2021-01-25] MEDS: METOPROLOL TARTRATE 25 MG TAB PO SCH ×2 (08:09→17:36)
[2021-01-25] MEDS: MAGNESIUM CHLORIDE 64MG DELAYED REL TAB PO SCH ×3 (08:09→20:20)
[2021-01-25] MEDS: medroxyPROGESTERone ACETATE 10 MG TAB PO SCH (08:09)
[2021-01-25] MEDS: ESCITALOPRAM OXALATE 20 MG TAB PO SCH (08:09)
[2021-01-25] MEDS: PANTOprazole 40 MG TAB PO SCH (08:10)
[2021-01-25] MEDS: VERAPAMIL HCL 120 MG TABCR PO SCH ×3 (08:10→20:22)
[2021-01-25] MEDS: POTASSIUM CITRATE 10 MEQ TAB PO SCH ×2 (08:10→20:21)
--- NOTE | 2021-01-25 11:30 | Urology Progress Note ---
Date of Service January 25, 2021 Assessment & Plan (1) Nephrolithiasis: Plan: Obstructing right ureteral calculus Plan for cystoscopy right ureteral stent placement today Received Zosyn this morning which will cover her through the surgery Likely could be discharged home this afternoon after stent placement presuming she feels well Admission and Anticipated Discharge Date Admission Date: January 24, 2021 Subjective Slightly improved this morning Tolerated the kidney stone overnight without major issue Remained hemodynamically stable Ready for cystoscopy and stent placement today Physical Exam Constitutional: well developed and well nourished Respiratory: no respiratory distress Cardiovascular: Extremities: no pedal edema Gastrointestinal (Abdomen): Inspection/Auscultation: abdomen normal to inspection Results & Data ([facility]) Vital Signs (Past 12 Hours) Vital Signs Temp Pulse Resp BP Pulse Ox 01/25/21 07:14 36.7 C 98 H 20 137/82 95 PG Care Time/CCT Total # of Minutes Spent Total Time Spent with Patient: Total time spent is greater than 50% in coordination of care (as documented) at patient's floor/unit and/or counseling patient: Coding Level of Care Code 02355 Subseq Hosp Care Lvl 2 Diagnoses Nephrolithiasis N20.0
[2021-01-25] MEDS ORDERED: MIDAZOLAM HCL 1 MG/ML 2ML VIAL ONE (11:33)
[2021-01-25] MEDS ORDERED: fentaNYL citrate 100 MCG/2 ML VIAL ONE (11:33)
[2021-01-25] MEDS ORDERED: LIDOCAINE 2% 2 ML VIAL/AMP(20MG/ML) INFIL ONE (11:50)
[2021-01-25] MEDS ORDERED: ONDANSETRON INJ 2 MG/ML 2 ML VIAL ONE (11:50)
[2021-01-25] MEDS ORDERED: PROPOFOL IV EMULSION 10 MG/ML 20 ML VIAL IV ONE (11:50)
[2021-01-25] MEDS ORDERED: DIATRIZOATE MEGLUMINE 30% 100ML VIAL INSTIL ONE (12:10)
--- NOTE | 2021-01-25 12:18 | Operative Report ---
PG Post Operative Report Pre & Post Diagnosis Operation Date: 01/25/21 13:00 Pre-Op Diagnosis: Right Ureteral Stone Post-Op Diagnosis: Right Ureteral Stone I identified the patient and participated in the time-out.: Yes Procedure Operation Date: 01/25/21 13:00 Actual Procedures p Cystoscopy,Right Retrograde Pyelogram, Right Ureteral Stent Insertion(Right) - Gopi Law MD Surgeon Fabricio Law MD Bindery Manager none Estimated Blood Loss 0 Findings Consistent with Post-Op Diagnosis Specimens none Description of Procedure The patient was identified in the preoperative holding area, appropriate informed consents were reviewed and completed and the patient was transferred to the operative suite. Upon arrival, appropriate antibiotics and anesthesia were administered and the patient was placed in dorsal lithotomy position and prepped and draped in sterile fashion. To begin the case to pass a 22 [place] cystoscope per urethra. Inspection revealed a healthy-appearing urethra without any stones or mucosal abnormalities. Ureteral orifices were in orthotopic position. I cannulated the right UO and advanced a wire. Of note, the wire advanced to the proximal ureter without difficulty but then I could visualize an opacity consistent with a stone and this was quite impacted and difficult to bypass with the wire. I switched to a Glidewire but still could not bypass the stone. I performed retrograde pyelogram and minimal contrast initially went past the stone although ultimately I did have some filling of the renal pelvis. I then was able to manipulate a Glidewire into the kidney which I was able to successfully exchanged for a sensor wire. I placed a 6 [place] by 24 cm stent over the sensor wire. It was still quite challenging to get this past the stone but I did have a curl proximal to the stone presumably at the UPJ or just into the renal pelvis. There was a good curl in the bladder as well. The stent was draining urine without difficulty. I subsequently concluded the case and she was reversed of anesthesia and taken to the recovery room in stable condition. There were no complications. I attest to the content of the Intraoperative Record and any orders documented therein. Any exceptions are noted below.
--- NOTE | 2021-01-25 12:26 | Anesthesiology Progress Note ---
Date of Service January 25, 2021 Anesthesia Post Procedure Vital Signs Vital Signs: Temp Pulse Pulse Pulse Resp BP Pulse Ox 01/25/21 12:17 97.0 F L 96 H 13 145/81 H 96 01/25/21 07:14 98.1 F 98 H 20 137/82 95 01/24/21 23:00 98.4 F 114 H 20 136/84 95 01/24/21 14:34 98.1 F 94 H 16 138/85 95 Pain Intensity Right Lower Abdomen: Pain Intensity: 3 Transfer of Care Handoff Completed per policy Notes Mental Status: alert / awake / arousable and participated in evaluation Patient Amnestic to Procedure: Yes Nausea / Vomiting: adequately controlled Pain: adequately controlled Airway Patency, RR, SpO2: stable & adequate BP & HR: stable & adequate Hydration State: stable & adequate Anesthetic Complications: no major complications apparent and Pt Satisfied with anesthetic care
--- NOTE | 2021-01-25 13:01 | Fluoroscopy Report ---
FL retrograde includes kub HISTORY: 65 years-old Female RIGHT SIDED STENT right hydronephrosis with ureteral calculus COMPARISON: CT abdomen and pelvis 01/24/2021 TECHNIQUE: 2 spot fluoroscopic images of the abdomen were obtained utilizing 87.0 seconds fluoroscopy time FINDINGS: Limited exam secondary to patient body habitus and obscuring bowel gas. A right ureteral stent is pre sent with the proximal portion appearing in satisfactory positioning. The distal portion of the stent is not imaged. IMPRESSION: Fluoroscopic assistance as above. ACT 112: Negative or not required by law. The above report was generated using voice recognition software. It may contain grammatical, syntax o r spelling errors. Electronically signed by: Pavel Morrissey M.D. 01/25/2021 1:00 PM
[2021-01-25] MEDS ORDERED: Nursing to Pharmacy Communication SCH (16:45)
--- NOTE | 2021-01-25 17:04 | Hospitalist Progress Note ---
Date of Service January 25, 2021 Assessment & Plan (1) Hydronephrosis with renal and ureteral calculus obstruction: Plan: Obstructing stone in R ureter s/p stent placement, remains on Zosyn thomas- operatively. Defer antibiotics to Urology. No UTI present. Pyridium added for dysuria and also added scheduled flomax (2) Complicated UTI (urinary tract infection): Plan: ruled out, defer to Urology (3) Acute kidney injury superimposed on CKD: Plan: IVF stopped post-operatively. Patient is urinating well at this point. Trend BMp in am. (4) Sleep apnea: Plan: CPAP qHS (5) Diabetes mellitus, type 2: Plan: cont basal bolus insulin while hospitalized. (6) Pulmonary embolism: Plan: History of chronic bilateral PE - on chronic anticoagulation. Anticoagulation held for procedure. Restart warfarin now. INR 1.8. (7) Inflammatory polyarthropathy: Plan: Took her methotrexate as scheduled [facility] (injections on Fridays) - Continue outpatient oxycodone (8) DVT prophylaxis: Plan: warfarin Full Dispo-to home in am once she is feeling better. [facility] Admission and Anticipated Discharge Date Admission Date: January 24, 2021 Subjective 65 yo F with right proximal ureteral calculus s/p cystoscopy with right ureteral stent insertion by Dr. Law she is recovering in her room this afternoon, tolerating food without issue reports her right flank pain has resolved but she still feels a RLQ discomfort that is moderate intensity She describes burning with urination and states she has urinated "a lot" Stone was not removed today and she will require definitive stone management as outpatient, she is understanding this She prefers to stay overnight as she is not feeling 100% at bedside Review of Systems Review of Systems: All systems were reviewed and negative except as indicated above. Physical Exam Physical Exam: CONSTITUTIONAL: obese, vitals as above, generally well- appearing, NAD EYES: normal conjunctivae, no scleral icterus ENT: external ear and nose normal, MMM NECK: trachea midline RESPIRATORY: clear to auscultation bilaterally, no crackles, rales or wheezes, normal respiratory effort CARDIOVASCULAR: regular rate and rhythm, S1 and 2 heard without murmurs, gallops or rubs, no JVD, no peripheral edema GASTROINTESTINAL: soft, nontender, ND MUSCULOSKELETAL: strength 5/5 throughout, head is normocephalic and atraumatic SKIN: warm and dry NEUROLOGIC: CN 2-12 grossly intact, normal cognition, normal speech, no tremor PSYCHIATRIC: alert cooperative and oriented to person, place and time. Results & Data Results & Data ([facility]) Vital Signs (Past 12 Hours) Vital Signs Temp Pulse Pulse Pulse Resp BP Pulse Ox 01/25/21 16:08 37.1 C 88 16 133/63 94 01/25/21 14:42 37 C 86 14 120/76 91 01/25/21 13:53 37.1 C 101 H 16 125/76 91 01/25/21 13:16 37 C 87 14 102/57 L 94 01/25/21 12:55 36.9 C 94 H 14 132/80 94 01/25/21 12:45 89 16 156/72 H 94 01/25/21 12:35 36.6 C 91 H 18 135/71 95 01/25/21 12:25 89 16 151/81 H 95 01/25/21 12:17 36.1 C L 96 H 13 145/81 H 96 01/25/21 07:14 36.7 C 98 H 20 137/82 95 Laboratory Results Short CBC 01/25/21 Range/Units 06:09 WBC 7.95 (4.8-10.8) K/uL Hgb 11.4 L (12.0-16.0) g/dL Hct 36.4 L (37-47) % Plt Count 263 (130-400) K/uL BMP 01/25/21 06:09 Sodium 139 Potassium 3.6 Chloride 109 H Carbon Dioxide 24 BUN 12 Creatinine 1.24 H Glucose 133 H Calcium 8.4 L Diagnostic Findings Retrograde Pyelogram 01/25/21 00:00 FL retrograde includes kub HISTORY: 65 years-old Female RIGHT SIDED STENT right hydronephrosis with ureteral calculus COMPARISON: CT abdomen and pelvis 01/24/2021 TECHNIQUE: 2 spot fluoroscopic images of the abdomen were obtained utilizing 87.0 seconds fluoroscopy time FINDINGS: Limited exam secondary to patient body habitus and obscuring bowel gas. A right ureteral stent is present with the proximal portion appearing in satisfactory positioning. The distal portion of the stent is not imaged. IMPRESSION: Fluoroscopic assistance as above. ACT 112: Negative or not required by law. The above report was generated using voice recognition software. It may contain grammatical, syntax or spelling errors. Electronically signed by: Pavel Morrissey M.D. 01/25/2021 1:00 PM Medications Administered Current Inpatient Medications Atorvastatin Calcium (Atorvastatin 20 Mg Tab) 20 mg PO QDD JIM Stop: 02/23/21 16:29 Last Admin: 01/25/21 17:35 Dose: 20 mg Documented by: Dextrose (Dextrose 50% 50 Ml Syringe) 25 - 50 ml IV UD PRN; Protocol PRN Reason: Hypoglycemia Protocol Stop: 02/23/21 10:55 Escitalopram Oxalate (Escitalopram Oxalate 20 Mg Tab) 20 mg PO QAM JIM Stop: 02/24/21 08:59 Last Admin: 01/25/21 08:09 Dose: 20 mg Documented by: Glucagon (Glucagon For Inj 1 Mg Vial) 1 mg SQ UD PRN; Protocol PRN Reason: Hypoglycemia Protocol Stop: 02/23/21 10:55 Glucose (Glucose 10 Tabs/Tube) 4 - 8 tabs PO UD PRN; Protocol PRN Reason: Hypoglycemia Protocol Stop: 02/23/21 10:55 Glucose (Glucose 40% Gel 15 Gm Tube) 15 - 30 gm PO UD PRN; Protocol PRN Reason: Hypoglycemia Protocol Stop: 02/23/21 10:55 Heparin Sodium (Porcine) (Heparin 100 Unit/Ml 5ml Flush) 5 ml FLUSH PRN PRN PRN Reason: Flush Stop: 02/24/21 01:23 Promethazine HCl 12.5 mg/ (Sodium Chloride) 50.5 mls @ 202 mls/hr IV Q6H PRN PRN Reason: Nausea And Vomiting Stop: 02/23/21 11:06 Last Infusion: 01/24/21 18:29 Dose: Infused Documented by: Piperacillin Sod/Tazobactam (Sod 4.5 gm/ Dextrose) 120 mls @ 30 mls/hr IV Q8H JIM; Protocol Stop: 02/03/21 16:59 Last Admin: 01/25/21 17:41 Dose: 30 mls/hr Documented by: Sodium Chloride (Nss 1000ml) 1,000 mls @ 100 mls/hr IV .Q10H JIM Stop: 02/23/21 15:59 Last Admin: 01/25/21 13:11 Dose: 100 mls/hr Documented by: Insulin Aspart (Insulin Aspart 100 Units/Ml 3 Ml Pen) 0 units SC ACHS [facility] Stop: 02/24/21 16:29 Last Admin: 01/25/21 17:46 Dose: 11 units Documented by: Insulin Glargine (Insulin Glargine Solostar 100 Units/Ml 3 Ml Pen) 10 units SC BID [facility] Stop: 02/23/21 20:59 Last Admin: 01/25/21 08:07 Dose: 10 units Documented by: Leucovorin Calcium (Leucovorin Calcium 5 Mg Tab) 5 mg PO Sa@0900 [facility] Stop: 02/23/21 11:59 Last Admin: 01/24/21 16:15 Dose: 5 mg Documented by: Magnesium Chloride (Magnesium Chloride 64mg Delayed Rel Tab) 128 mg PO HS [facility] Stop: 02/23/21 20:59 Last Admin: 01/24/21 20:54 Dose: 128 mg Documented by: Magnesium Chloride (Magnesium Chloride 64mg Delayed Rel Tab) 192 mg PO BIDM [facility] Stop: 02/23/21 11:59 Last Admin: 01/25/21 17:35 Dose: 192 mg Documented by: Medroxyprogesterone Acetate (Medroxyprogesterone Acetate 10 Mg Tab) 10 mg PO QAM [facility] Stop: 02/24/21 08:59 Last Admin: 01/25/21 08:09 Dose: 10 mg Documented by: Metoprolol Tartrate (Metoprolol Tartrate 25 Mg Tab) 12.5 mg PO BIDM [facility] Stop: 02/23/21 16:59 Last Admin: 01/25/21 17:36 Dose: 12.5 mg Documented by: Miscellaneous (Carbohydrates For Hypoglycemia ) 15 - 30 gm PO UD PRN PRN Reason: Hypoglycemia Protocol Stop: 02/23/21 10:55 Miscellaneous Information (Piperacill/Tazobac Consult Active) 1 ea N/A UD PRN PRN Reason: Consult Stop: 02/23/21 10:54 Montelukast Sodium (Montelukast Sodium 10 Mg Tablet) 10 mg PO QDD [facility] Stop: 02/23/21 16:29 Last Admin: 01/25/21 17:35 Dose: 10 mg Documented by: Morphine Sulfate (Morphine Sulfate 4 Mg/Ml 1 Ml Carp\\Vial) 4 mg IV Q4H PRN PRN Reason: Pain Stop: 02/07/21 10:29 Last Admin: 01/24/21 16:04 Dose: 4 mg Documented by: Oxycodone HCl (Oxycodone Hcl Ir 5 Mg Tab (Immediate Release)) 5 mg PO BID@0000 [facility] Stop: 02/07/21 19:59 Last Admin: 01/25/21 00:25 Dose: 5 mg Documented by: Pantoprazole Sodium (Pantoprazole 40 Mg Tab) 40 mg PO QAM [facility] Stop: 01/28/21 09:01 Last Admin: 01/25/21 08:10 Dose: 40 mg Documented by: Phenazopyridine HCl (Phenazopyridine Hcl 200 Mg Tab) 200 mg PO TID [facility] Stop: 02/24/21 20:59 Potassium Citrate (Potassium Citrate 10 Meq Tab) 10 meq PO QAM [facility] Stop: 02/24/21 08:59 Last Admin: 01/25/21 08:10 Dose: 10 meq Documented by: Potassium Citrate (Potassium Citrate 10 Meq Tab) 20 meq PO PM [facility] Stop: 02/23/21 20:59 Last Admin: 01/24/21 19:39 Dose: 20 meq Documented by: Ropinirole HCl (Ropinirole Hcl 0.25 Mg Tablet) 0.5 mg PO HS PRN PRN Reason: Restless Leg(S) Stop: 02/23/21 11:03 Tamsulosin HCl (Tamsulosin Hcl 0.4 Mg Cap) 0.4 mg PO HS [facility] Stop: 02/24/21 20:59 Verapamil HCl (Verapamil Hcl 120 Mg Tabcr) 120 mg PO TID [facility] Stop: 02/23/21 13:59 Last Admin: 01/25/21 13:12 Dose: 120 mg Documented by:
[2021-01-25] MEDS: ATORVASTATIN 20 MG TAB PO SCH (17:35)
[2021-01-25] MEDS: MONTELUKAST SODIUM 10 MG TABLET PO SCH (17:35)
[2021-01-25] MEDS ORDERED: WARFARIN SOD 7.5 MG TAB PO ONE (19:15)
[2021-01-25] MEDS ORDERED: TAMSULOSIN HCL 0.4 MG CAP PO SCH (21:00)
[2021-01-25] MEDS: PHENAZOPYRIDINE HCL 200 MG TAB PO SCH (22:24)
[2021-01-25] MEDS: HEPARIN 100 UNIT/ML 5ML FLUSH FLUSH PRN (22:24)
[2021-01-26] MEDS: oxyCODONE HCL IR 5 MG TAB (IMMEDIATE RELEASE) PO SCH (00:44)
[2021-01-26] MEDS: PIPERACILLIN/TAZOBACTAM 4.5 GM in DEXTROSE 5% 100 ML IV SCH ×2 (00:44→09:08)
[2021-01-26] MEDS: HEPARIN 100 UNIT/ML 5ML FLUSH FLUSH PRN ×2 (05:53→13:07)
[2021-01-26 06:09] LABS: Basophils # (auto) 0.02 K/uL (0-0.2); Basophils % (auto) 0.3 %; Eosinophils # (auto) 0.22 K/uL (0-0.5); Eosinophils % (auto) 3.3 %; Hematocrit (blood only) 34.6 % (37-47); Hemoglobin 10.8 g/dL (12.0-16.0); Immature Granulocytes # (auto) 0.03 K/uL (0.00-0.02); Immature Granulocytes % (auto) 0.5 %; Lymphocytes # (auto) 1.71 K/uL (1.2-3.4); Mean Corpuscular Hemoglobin 30.5 pg (25-34); Mean Corpuscular Hgb Conc 31.2 g/dL (32-36); Mean Corpuscular Volume 97.7 fL (80-100); Mean Platelet Volume 9.9 fL (7.4-10.4); Neutrophils % (auto) 66.9 %; Platelet Count 259 K/uL (130-400); RDW Coefficient of Variation 14.7 % (11.5-14.5); RDW Standard Deviation 52.7 fL (36.4-46.3); Red Blood Count 3.54 M/uL (4.2-5.4); White Blood Count 6.58 K/uL (4.8-10.8)
[2021-01-26 06:12] LABS: INR 1.7 (0.9-1.1); Prothrombin Time 16.3 Seconds (9.0-12.0)
[2021-01-26 06:41] LABS: BUN Creatinine Ratio 11.4 (10-20); Calcium 8.7 mg/dl (8.5-10.1); Creatinine Clr Calc Pharmacy 68.6 ml/min; Est GFR (African American) 66.5 ml/min; Est GFR (Non-African American) 57.4 ml/min; Potassium 3.5 mmol/L (3.5-5.1)
--- NOTE | 2021-01-26 08:35 | Urology Progress Note ---
Date of Service January 26, 2021 Assessment & Plan (1) Hydronephrosis with renal and ureteral calculus obstruction: Plan: 65yo F admitted with intractable right flank pain secondary to obstructing right ureteral stones - POD #1 s/p Cystoscopy, Right Retrograde Pyelogram, Right Ureteral Stent Insertion with Dr. Law. - Patient feeling better today, tolerating the ureteral stent with minimal bother. - Afebrile, VSS. - Labs reviewed - White count stable, Hgb 10.8, Creatinine improved -1.03 today. - Urine culture preliminary no growth, continues on IV Zosyn. - Ok for discharge from perspective. - Recommend home with flomax, prn pain control, prn pyridium, and antibiotics if indicated per final culture. - Will ensure outpatient follow-up is arranged for definitive stone management with either our service or [facility] urology per patient preference. - Continue supportive care and antibiotic therapy, follow culture - Thank you for allowing us to participate in the acute care of Ms. Davidson. - Please reconsult us with additional questions, concerns or changes in patient status. Admission and Anticipated Discharge Date Admission Date: January 24, 2021 Subjective Pt examined at bedside this AM. Awake, resting in bed on arrival. No acute distress. Reports she is feeling much better today. Minimal pain. Tolerating the ureteral stent with minimal bother. Some hematuria and dysuria as expected. Feels she is emptying her bladder well. Tolerating PO diet Denies nausea or vomiting. No fevers or chills. Review of Systems Constitutional: as per Subjective / HPI Gastrointestinal: as per Subjective / HPI Genitourinary: as per Subjective / HPI Physical Exam Constitutional: well developed and well nourished; no acute distress and not ill appearing Respiratory: normal respiratory effort and able to speak in complete sentences; no labored breathing and no audible wheezes Gastrointestinal (Abdomen): Inspection/Auscultation: abdomen normal to inspection; abdomen not distended Musculoskeletal: Head/Neck/Chest: normocephalic Skin: No visible rashes or lesions to exposed skin areas Neurologic: moves all extremities and awake Psychiatric: Orientation: alert, oriented x 3 and cooperative Results & Data ([facility]) Vital Signs (Past 12 Hours) Vital Signs Temp Pulse Resp BP Pulse Ox 01/26/21 08:09 36.6 C 86 16 122/74 96 01/26/21 03:02 36.9 C 105 H 18 137/82 92 01/25/21 22:09 37.1 C 107 H 22 117/70 95 PG Care Time/CCT Total # of Minutes Spent Total Time Spent with Patient: Total time spent is greater than 50% in coordination of care (as documented) at patient's floor/unit and/or counseling patient: Coding Level of Care Code 05243 Subseq Hosp Care Lvl 2 Diagnoses Hydronephrosis with renal and ureteral calculus obstruction N13.2
[2021-01-26] MEDS: ESCITALOPRAM OXALATE 20 MG TAB PO SCH (09:07)
[2021-01-26] MEDS: medroxyPROGESTERone ACETATE 10 MG TAB PO SCH (09:07)
[2021-01-26] MEDS: PHENAZOPYRIDINE HCL 200 MG TAB PO SCH ×2 (09:07→13:29)
[2021-01-26] MEDS: METOPROLOL TARTRATE 25 MG TAB PO SCH (09:07)
[2021-01-26] MEDS: VERAPAMIL HCL 120 MG TABCR PO SCH ×2 (09:07→13:29)
[2021-01-26] MEDS: POTASSIUM CITRATE 10 MEQ TAB PO SCH (09:07)
[2021-01-26] MEDS: PANTOprazole 40 MG TAB PO SCH (09:07)
[2021-01-26] MEDS: MAGNESIUM CHLORIDE 64MG DELAYED REL TAB PO SCH (09:08)
[2021-01-26] MEDS: INSULIN ASPART 100 UNITS/ML 3 ML PEN SC SCH ×2 (09:14→12:51)
[2021-01-26] MEDS: INSULIN GLARGINE SOLOSTAR 100 UNITS/ML 3 ML PEN SC SCH (09:14)
--- NOTE | 2021-01-26 11:28 | Hospitalist Progress Note ---
Date of Service January 26, 2021 Assessment & Plan (1) Hydronephrosis with renal and ureteral calculus obstruction: Plan: Obstructing stone in R ureter s/p stent placement, remains on Zosyn thomas- operatively. Defer antibiotics to Urology. No UTI present. Pyridium added for dysuria and also added scheduled flomax She will not require any antibiotic on discharge She will have an appointment with urologist as an outpatient and will get appointment with the primary care physician and coagulation clinic (2) Complicated UTI (urinary tract infection): Plan: ruled out, defer to Urology Urine culture is negative (3) Acute kidney injury superimposed on CKD: Plan: IVF stopped post-operatively. Patient is urinating well at this point. Creatinine has been normalized (4) Sleep apnea: Plan: CPAP qHS (5) Diabetes mellitus, type 2: Plan: cont basal bolus insulin while hospitalized. (6) Pulmonary embolism: Plan: History of chronic bilateral PE - on chronic anticoagulation. Anticoagulation held for procedure. Restart warfarin now. INR 1.8. We will continue with warfarin (7) Inflammatory polyarthropathy: Plan: Took her methotrexate as scheduled [employer] (injections on Fridays) - Continue outpatient oxycodone (8) DVT prophylaxis: Plan: warfarin Full Dispo-to home in am once she is feeling better. Admission and Anticipated Discharge Date Admission Date: January 24, 2021 Subjective 01/26/2021 The patient was seen and examined in medical floor She has been feeling much better and denies any significant symptoms She does have some dysuria but no nausea and or vomiting Review of Systems Review of Systems: All systems reviewed and are unremarkable except as noted below Gastrointestinal: No abdominal pain and/or distention Genitourinary: Minimal dysuria Physical Exam Physical Exam: Lying in bed comfortably Constitutional: well developed, well nourished and + obese; not ill appearing Eyes: PERRL, conjunctivae normal, anicteric sclerae ENMT: external ear and nose normal, oropharynx normal Neck: trachea midline, no thyromegaly Respiratory: no respiratory distress Auscultation: lungs clear to auscultation bilaterally Cardiovascular: Rate/Rhythm: regular rate and regular rhythm; not tachycardic Heart Sounds: normal S1 and normal S2; no murmur Extremities: no edema Gastrointestinal (Abdomen): Inspection/Auscultation: normal bowel sounds; abdomen not distended Percussion/Palpation: abdomen soft; abdomen nontender Musculoskeletal: No acute arthritis in any joint Neurologic: Alert, awake and oriented x3. No focal sensory and motor deficit appreciated Psychiatric: A+Ox3, euthymic affect Lymphatic: no cervical or axillary lymphadenopathy Results & Data Results & Data ([facility]) Vital Signs (Past 12 Hours) Vital Signs Temp Pulse Resp BP Pulse Ox 01/26/21 08:09 36.6 C 86 16 122/74 96 01/26/21 03:02 36.9 C 105 H 18 137/82 92 Laboratory Results Short CBC 01/26/21 Range/Units 05:51 WBC 6.58 (4.8-10.8) K/uL Hgb 10.8 L (12.0-16.0) g/dL Hct 34.6 L (37-47) % Plt Count 259 (130-400) K/uL BMP 01/26/21 05:51 Sodium 139 Potassium 3.5 Chloride 108 H Carbon Dioxide 25 BUN 12 Creatinine 1.03 Glucose 136 H Calcium 8.7 Medications Administered Current Inpatient Medications Atorvastatin Calcium (Atorvastatin 20 Mg Tab) 20 mg PO QDD [facility]IM Stop: 02/23/21 16:29 Last Admin: 01/25/21 17:35 Dose: 20 mg Documented by: Dextrose (Dextrose 50% 50 Ml Syringe) 25 - 50 ml IV UD PRN; Protocol PRN Reason: Hypoglycemia Protocol Stop: 02/23/21 10:55 Escitalopram Oxalate (Escitalopram Oxalate 20 Mg Tab) 20 mg PO QAM [facility] Stop: 02/24/21 08:59 Last Admin: 01/26/21 09:07 Dose: 20 mg Documented by: Glucagon (Glucagon For Inj 1 Mg Vial) 1 mg SQ UD PRN; Protocol PRN Reason: Hypoglycemia Protocol Stop: 02/23/21 10:55 Glucose (Glucose 10 Tabs/Tube) 4 - 8 tabs PO UD PRN; Protocol PRN Reason: Hypoglycemia Protocol Stop: 02/23/21 10:55 Glucose (Glucose 40% Gel 15 Gm Tube) 15 - 30 gm PO UD PRN; Protocol PRN Reason: Hypoglycemia Protocol Stop: 02/23/21 10:55 Heparin Sodium (Porcine) (Heparin 100 Unit/Ml 5ml Flush) 5 ml FLUSH PRN PRN PRN Reason: Flush Stop: 02/24/21 01:23 Last Admin: 01/26/21 05:53 Dose: 5 ml Documented by: Promethazine HCl 12.5 mg/ (Sodium Chloride) 50.5 mls @ 202 mls/hr IV Q6H PRN PRN Reason: Nausea And Vomiting Stop: 02/23/21 11:06 Last Infusion: 01/24/21 18:29 Dose: Infused Documented by: Piperacillin Sod/Tazobactam (Sod 4.5 gm/ Dextrose) 120 mls @ 30 mls/hr IV Q8H [facility]; Protocol Stop: 02/03/21 16:59 Last Admin: 01/26/21 09:08 Dose: 30 mls/hr Documented by: Insulin Aspart (Insulin Aspart 100 Units/Ml 3 Ml Pen) 0 units SC ACHS [facility] Stop: 02/24/21 16:29 Last Admin: 01/26/21 09:14 Dose: 9 units Documented by: Insulin Glargine (Insulin Glargine Solostar 100 Units/Ml 3 Ml Pen) 10 units SC BID [facility] Stop: 02/23/21 20:59 Last Admin: 01/26/21 09:14 Dose: 10 units Documented by: Leucovorin Calcium (Leucovorin Calcium 5 Mg Tab) 5 mg PO Sa@0900 [facility] Stop: 02/23/21 11:59 Last Admin: 01/24/21 16:15 Dose: 5 mg Documented by: Magnesium Chloride (Magnesium Chloride 64mg Delayed Rel Tab) 128 mg PO HS [facility] Stop: 02/23/21 20:59 Last Admin: 01/25/21 20:20 Dose: 128 mg Documented by: Magnesium Chloride (Magnesium Chloride 64mg Delayed Rel Tab) 192 mg PO BIDM [facility] Stop: 02/23/21 11:59 Last Admin: 01/26/21 09:08 Dose: 192 mg Documented by: Medroxyprogesterone Acetate (Medroxyprogesterone Acetate 10 Mg Tab) 10 mg PO QAM [facility] Stop: 02/24/21 08:59 Last Admin: 01/26/21 09:07 Dose: 10 mg Documented by: Metoprolol Tartrate (Metoprolol Tartrate 25 Mg Tab) 12.5 mg PO BIDM [facility] Stop: 02/23/21 16:59 Last Admin: 01/26/21 09:07 Dose: 12.5 mg Documented by: Miscellaneous (Carbohydrates For Hypoglycemia ) 15 - 30 gm PO UD PRN PRN Reason: Hypoglycemia Protocol Stop: 02/23/21 10:55 Miscellaneous Information (Piperacill/Tazobac Consult Active) 1 ea N/A UD PRN PRN Reason: Consult Stop: 02/23/21 10:54 Montelukast Sodium (Montelukast Sodium 10 Mg Tablet) 10 mg PO QDD JIM Stop: 02/23/21 16:29 Last Admin: 01/25/21 17:35 Dose: 10 mg Documented by: Morphine Sulfate (Morphine Sulfate 4 Mg/Ml 1 Ml Carp\Vial) 4 mg IV Q4H PRN PRN Reason: Pain Stop: 02/07/21 10:29 Last Admin: 01/24/21 16:04 Dose: 4 mg Documented by: Oxycodone HCl (Oxycodone Hcl Ir 5 Mg Tab (Immediate Release)) 5 mg PO BID@0000,1999 [facility] Stop: 02/07/21 19:59 Last Admin: 01/26/21 00:44 Dose: 5 mg Documented by: Pantoprazole Sodium (Pantoprazole 40 Mg Tab) 40 mg PO QAM [facility] Stop: 01/28/21 09:01 Last Admin: 01/26/21 09:07 Dose: 40 mg Documented by: Phenazopyridine HCl (Phenazopyridine Hcl 200 Mg Tab) 200 mg PO TID [facility] Stop: 02/24/21 20:59 Last Admin: 01/26/21 09:07 Dose: 200 mg Documented by: Potassium Citrate (Potassium Citrate 10 Meq Tab) 10 meq PO QAM [facility] Stop: 02/24/21 08:59 Last Admin: 01/26/21 09:07 Dose: 10 meq Documented by: Potassium Citrate (Potassium Citrate 10 Meq Tab) 20 meq PO PM [facility] Stop: 02/23/21 20:59 Last Admin: 01/25/21 20:21 Dose: 20 meq Documented by: Ropinirole HCl (Ropinirole Hcl 0.25 Mg Tablet) 0.5 mg PO HS PRN PRN Reason: Restless Leg(S) Stop: 02/23/21 11:03 Last Admin: 01/25/21 22:24 Dose: 0.5 mg Documented by: Tamsulosin HCl (Tamsulosin Hcl 0.4 Mg Cap) 0.4 mg PO HS [facility] Stop: 02/24/21 20:59 Last Admin: 11/21/21 22:24 Dose: 0.4 mg Documented by: Verapamil HCl (Verapamil Hcl 120 Mg Tabcr) 120 mg PO TID [facility] Stop: 02/23/21 13:59 Last Admin: 01/26/21 09:07 Dose: 120 mg Documented by: Warfarin Sodium (Warfarin Sod 5 Mg Tab) 5 mg PO [email or web address] [facility] Stop: 02/26/21 15:59 Warfarin Sodium (Warfarin Sod 7.5 Mg Tab) 7.5 mg PO [email or web address] [facility] Stop: 02/25/21 15:59
[2021-01-26] MEDS ORDERED: WARFARIN SOD 7.5 MG TAB PO SCH (16:00)
--- NOTE | 2021-01-27 08:57 | Discharge Summary ---
Date of Service January 27, 2021 Admission HPI Per Admitting Provider This is a 65 y/o female with a PMH of DM2, seronegative inflammatory arthritis, CKD, LORE on CPAP, asthma, HTN, prior PE, hx breast CA s/p mastectomy/chemo/XRT, dyslipidemia, nephrolithiasis, RLS, and PAT who presented to the ED last night with severe right flank/RLQ/right groin pain. The patient reports a history of nephrolithiasis with stent placement in 2016 (Dr. Smith). In October, she developed left flank pain, which she thought may be due to stones. However, imaging showed stones on the right, not left, so she saw PT for presumed muscular etiology. In Nov, she saw Pennie Hodgson PA-C due to the recurrent nephrolithiasis with a 5 mm stone in the right kidney. Based on the size, they decided to manage conservatively initially. However, over the past 2-3 weeks, pt has developed waxing and waning right flank pain. Over the past 4 days, she has developed associated RLQ and now right groin pain. Last evening, the pain suddenly became severe such that it woke her from a nap. It has continued since then with only mild relief from meds in the ED. She has associated nausea but no vomiting. She has also noted malaise, chills, and sweats over the past 4 days but no documented fevers. She denies dysuria, hematuria, urinary frequency or urgency. However, this AM, when she urinates, she reports only "dribbling urine." She also notes diarrhea for the past 4 days. Of note, she was recently treated with a Z-pack, followed by two courses of Augmentin, for a prolonged sinus infection. Finished antibiotics one week ago. Sinus symptoms have resolved. Admission Exam Per Admitting Provider Constitutional: + not well developed, + not well nourish ed and no acute distress Eyes: + anicteric sclerae; no conjunctival abn ormality Neck: trachea midline Respiratory: no respiratory distress and no labored breathing Auscultation: lungs clear to auscultation bilaterally; no rales, no rhonchi and no wheezes Cardiovascular: Rate/Rhythm: regular rhythm and + tachycardic Vessels: radial pulses present Extremities: normal capillary refill Gastrointestinal (Abdomen): Inspection/Auscultation: + abdomen distended (softly) and normal bowel sounds Percussion/Palpation: + abdomen tender (worse in suprapubic, RLQ > LLQ) and abdomen soft; no guarding Musculoskeletal: Head/Neck/Chest: normocephalic, head atraumatic and neck supple Skin: normal turgor; no rashes and no jaundice Neurologic: moves all extremities; no focal motor deficits Psychiatric: A+Ox3, euthymic affect Principal Diagnosis Obstructed right ureteric calculus with hydronephrosis, status post stent placement Discharge Exam Lying in bed comfortably Constitutional well developed, well nourished and + obese; not ill appearing Eyes PERRL, conjunctivae normal, anicteric sclerae ENMT external ear and nose normal, oropharynx normal Neck trachea midline, no thyromegaly Respiratory no respiratory distress Auscultation: lungs clear to auscultation bilaterally Cardiovascular Rate/Rhythm: regular rate and regular rhythm; not tachycardic Heart Sounds: normal S1 and normal S2; no murmur Extremities: no edema Gastrointestinal (Abdomen) Inspection/Auscultation: normal bowel sounds; abdomen not distended Percussion/Palpation: abdomen soft; abdomen nontender Psychiatric A+Ox3, euthymic affect Lymphatic no cervical or axillary lymphadenopathy Discharge Data Allergies Allergy/AdvReac Type Severity Reaction Status Date / Time codeine Allergy Intermediate PRURITUS, Verified 01/24/21 00:14 RASH gabapentin Allergy Intermediate ARMS, LEGS Verified 01/24/21 00:14 SWELLING aloe vera [From Vagisil] Allergy Mild Rash Verified 01/24/21 00:14 amitriptyline Allergy Mild ARMS, LEGS Verified 01/24/21 00:14 SWELLING benzocaine [From Vagisil] Allergy Mild Rash Verified 01/24/21 00:14 doxepin Allergy Mild ARMS, LEGS Verified 01/24/21 00:14 SWELLING hyoscyamine Allergy Mild ARMS, LEGS Verified 01/24/21 00:14 SWELLING mineral oil [From Vagisil] Allergy Mild Rash Verified 01/24/21 00:14 nickel Allergy Mild RASH Verified 01/24/21 00:14 potassium chloride Allergy Mild PRURITUS, Verified 01/24/21 00:14 [From Klor-Con] RASH resorcinol [From Vagisil] Allergy Mild Rash Verified 01/24/21 00:14 sitagliptin Allergy Mild ARMS, LEGS Verified 01/24/21 00:14 SWELLING starch [From Vagisil] Allergy Mild Rash Verified 01/24/21 00:14 vitamin E (d-alpha Allergy Mild Rash Verified 01/24/21 00:14 tocopherol) [From Vagisil] vitamins A and D Allergy Mild Rash Verified 01/24/21 00:14 [From Vagisil] adhesive AdvReac Intermediate Tape - Verified 01/24/21 00:14 rash/itching erythromycin base AdvReac Intermediate [employer] Verified 01/24/21 00:14 STOMACH CRAMPS Tricyclic Antidepressants Allergy Intermediate ARMS, LEGS Uncoded 01/24/21 00:14 SWELLING Consultations 01/24/21 08:49 ED Decision to Admit Stat 01/24/21 10:30 Consult Urology Routine Procedures Performed Operation Date: 01/25/21 13:00 Actual Procedures p Cystoscopy,Right Retrograde Pyelogram, Right Ureteral Stent Insertion(Right) - Gopi Law MD Ordered Studies 01/23/21 23:42 CT abd pelvis IV con only Urgent 01/25/21 [place] retrograde includes kub Routine Hospital Course (1) Hydronephrosis with renal and ureteral calculus obstruction: Obstructing stone in R ureter s/p stent placement, remains on Zosyn thomas-operatively. Defer antibiotics to Urology. No UTI present. Pyridium added for dysuria and also added scheduled flomax She will not require any antibiotic on discharge She will have an appointment with urologist as an outpatient and will get appointment with the primary care physician and coagulation clinic (2) Complicated UTI (urinary tract infection): ruled out, defer to Urology Urine culture is negative (3) Acute kidney injury superimposed on CKD: IVF stopped post-operatively. Patient is urinating well at this point. Creatinine has been normalized (4) Sleep apnea: CPAP qHS (5) Diabetes mellitus, type 2: cont basal bolus insulin while hospitalized. (6) Pulmonary embolism: History of chronic bilateral PE - on chronic anticoagulation. Anticoagulation held for procedure. Restart warfarin now. INR 1.8. We will continue with warfarin (7) Inflammatory polyarthropathy: Took her methotrexate as scheduled CVIR TECH (injections on Fridays) - Continue outpatient oxycodone (8) DVT prophylaxis: warfarin Full Dispo-to home in am once she is feeling better. Total Time Total Time Spent Total Time Spent (In Minutes): 35 minutes Discharge Plan Discharge Items Patient Disposition: Home - Self-Care Reason For Visit: nephrolithiasis Discharge Diagnosis: Obstructed right ureteric calculus with hydronephrosis, status post stent placement Condition on Discharge: Good Activity: Resume your previous activity Non-emergency contact: Primary Care Provider Call non-emergency contact if: you have any medication questions and your symptoms worsen Follow-up/Referrals: Landon Quiles DO [Primary Care Provider] - (Date & Time 01/27/2021 2:00 PM Provider Landon Quiles DO Department [facility] ) Diet: Carb Consistent or DM2 Addtl Attending Provider Instructions: Please try to drink more fluid Take precautions to avoid fall Please keep appointments with your healthcare providers Pending Studies at Discharge: No Stand-Alone Forms: My [employer], Smoking Cessation Medications and DC Order Prescriptions: New phenazopyridine [Pyridium] 200 mg Tablet 200 mg PO TID 3 Days Qty: 9 RF: 0 tamsulosin 0.4 mg Capsule 0.4 mg PO HS 30 Days Qty: 30 RF: 0 Continued magnesium chloride 64 mg Tablet,Delayed Release (Dr/Ec) 128 mg PO HS RF: 0 magnesium chloride 64 mg Tablet,Delayed Release (Dr/Ec) 192 mg PO AMPM RF: 0 atorvastatin 20 mg Tablet 20 mg PO QDD RF: 0 aspirin 81 mg Tablet,Delayed Release (Dr/Ec) 81 mg PO QAM RF: 0 potassium citrate 10 mEq (1,080 mg) Tablet Extended Release See Rx Instructions .ROUTE .COMPLEX RF: 0 warfarin 5 mg Tablet 5 mg PO 4XWK RF: 0 oxycodone 5 mg Tablet 5 mg PO BID RF: 0 levalbuterol HCl 0.31 mg/3 mL Solution For Nebulization 1 dose Inhalation DAILY PRN (Reason: Shortness Of Breath) RF: 0 metoprolol tartrate 25 mg Tablet 12.5 mg PO BIDM RF: 0 medroxyprogesterone 10 mg Tablet 10 mg PO QAM RF: 0 ropinirole 0.5 mg tablet 0.5 mg PO HS PRN (Reason: Restless Leg(S)) RF: 0 lansoprazole 30 mg capsule,delayed release(DR/EC) 30 mg PO QAM RF: 0 acetaminophen 650 mg Tablet Extended Release 1,300 mg PO HS RF: 0 vitamin B complex Tablet 1 tab PO DAILY RF: 0 montelukast 10 mg tablet 10 mg PO QDD RF: 0 metformin 500 mg tablet extended release 24 hr 2,000 mg PO QDD RF: 0 Multivitamin 50 Plus Tablet 1 tab PO DAILY RF: 0 verapamil 120 mg tablet extended release 120 mg PO TID RF: 0 methotrexate sodium 25 mg/mL solution 17.5 mg subcut WK RF: 0 ferrous sulfate 325 mg (65 mg iron) Tablet 325 mg PO TID RF: 0 warfarin 5 mg tablet 7.5 mg PO 3XWK RF: 0 leucovorin calcium 5 mg tablet 5 mg PO WK RF: 0 furosemide 20 mg tablet 20 mg PO DAILY RF: 0 escitalopram oxalate 20 mg tablet 20 mg PO QAM RF: 0 Jardiance 10 mg tablet 10 mg PO DAILY RF: 0 Ozempic 1 mg/dose (2 mg/1.5 mL) pen injector 1 mg SUBCUT WK RF: 0 Discharge Orders: Discharge Order (Routine); Ordered 01/26/21 Ordered By: Willy Blandon Admission Data Admit Date/Time: 01/24/21 09:46 Attending Provider: Willy Blandon Admit Provider: Raúl Burroughs Primary Care Provider: Landon Quiles Other Providers: Rupesh Alva ; Gopi Law ; Minoo Leslie Other Interventions: Discharge Summary Assessment (RN) Last Done: 01/26/21 11:45
[2021-01-27] MEDS ORDERED: WARFARIN SOD 5 MG TAB PO SCH (16:00)
== END 2021-01-26 14:04 | disposition home or self-care (01) | DRG 660 ==
LOC: ED 19:44 → SUATTDRO 01-24 09:46 → 3W 01-24 09:46

== ENCOUNTER 2023-10-14 06:15 | Inpatient (IN) ==
--- NOTE | 2023-09-28 11:19 | PAT Medication Instructions ---
Medication Instructions Date of Service September 28, 2023 Home Medications Medication Instructions Recorded ondansetron 4 mg disintegrating 4 mg PO Q8H PRN nausea and 02/09/21 tablet vomiting #7 tabs Medication List: aspirin 81 mg tablet,delayed release 81 mg PO QAM atorvastatin 20 mg tablet 20 mg PO QAM metoprolol tartrate 25 mg tablet 12.5 mg PO BIDM potassium citrate 10 mEq (1,080 mg) tablet,extended release See Rx Instructions .Route .COMPLEX warfarin 5 mg tablet 5 mg PO 2XWK magnesium chloride 64 mg (magnesium chloride) tablet,delayed release 128 - 192 mg PO TID lansoprazole 30 mg capsule,delayed release 30 mg PO QAM medroxyprogesterone 10 mg tablet (Provera) 10 mg PO QAM ropinirole 0.5 mg tablet 0.5 mg PO HS PRN Restless Leg(S) empagliflozin 10 mg tablet (Jardiance) 10 mg PO QAM escitalopram oxalate 20 mg tablet 20 mg PO QAM ferrous sulfate 325 mg (65 mg iron) tablet 325 mg PO QPM furosemide 20 mg tablet 20 mg PO QAM PRN Edema leucovorin calcium 5 mg tablet 5 mg PO WK methotrexate sodium 25 mg/mL injection solution 25 mg subcut UD verapamil 120 mg tablet,extended release 120 mg PO TID warfarin 5 mg tablet 7.5 mg PO 5XWK acetaminophen 650 mg tablet,extended release 1,300 mg PO UD PRN Pain metformin 500 mg tablet,extended release 24 hr 2,000 mg PO HS montelukast 10 mg tablet 10 mg PO HS [id number] tablet (Multivitamin 50 Plus tablet) 1 tab PO QAM vitamin B complex 1 tab PO QAM ondansetron 4 mg disintegrating tablet 4 mg PO Q8H PRN nausea and vomiting albuterol sulfate 90 mcg/actuation aerosol inhaler (Ventolin HFA) 2 puff inhalation Q4H PRN Wheezing biotin 10 mg tablet 10 mg PO QAM cyclosporine 0.05 % eye drops in a dropperette (Restasis) 1 drp ophthalmic (eye) Q12H oxycodone 5 mg tablet 5 mg PO BID PRN Pain semaglutide 1 mg/dose (4 mg/3 mL) subcutaneous pen injector (Ozempic) 1 mg subcut WK vibegron 75 mg tablet (Gemtesa) 75 mg PO QAM bupropion HCl 150 mg 24 hr tablet, extended release 150 mg PO QPM insulin glargine 100 unit/mL (3 mL) subcutaneous pen (Basaglar KwikPen U-100 Insulin) 10 unit subcut HS MEDICATION INSTRUCTIONS: Continue as directed albuterol sulfate 90 mcg/actuation aerosol inhaler (Ventolin HFA) 2 puff inhalation Q4H PRN Wheezing (use if needed; BRING TO HOSPITAL) leucovorin calcium 5 mg tablet 5 mg PO WK ASK your surgeon for instructions medroxyprogesterone 10 mg tablet (Provera) 10 mg PO QAM ASK your prescriber and surgeon aspirin 81 mg tablet,delayed release 81 mg PO QAM warfarin 5 mg tablet 7.5 mg PO 5XWK warfarin 5 mg tablet 5 mg PO 2XWK STOP taking 2 weeks before surgery biotin 10 mg tablet 10 mg PO QAM DO NOT take the morning of surgery magnesium chloride 64 mg (magnesium chloride) tablet,delayed release 128 - 192 mg PO TID potassium citrate 10 mEq (1,080 mg) tablet,extended release See Rx Instructions .Route .COMPLEX vibegron 75 mg tablet (Gemtesa) 75 mg PO QAM cjhamnhiwlhl-npaofwhy-ygciyi tablet (Multivitamin 50 Plus tablet) 1 tab PO QAM vitamin B complex 1 tab PO QAM furosemide 20 mg tablet 20 mg PO QAM PRN Edema Take morning of surgery With a small sip of water, OTHERWISE NOTHING TO EAT OR DRINK AFTER MIDNIGHT: cyclosporine 0.05 % eye drops in a dropperette (Restasis) 1 drp ophthalmic (eye) Q12H oxycodone 5 mg tablet 5 mg PO BID PRN Pain acetaminophen 650 mg tablet,extended release 1,300 mg PO UD PRN Pain verapamil 120 mg tablet,extended release 120 mg PO TID metoprolol tartrate 25 mg tablet 12.5 mg PO BIDM escitalopram oxalate 20 mg tablet 20 mg PO QAM atorvastatin 20 mg tablet 20 mg PO QAM ondansetron 4 mg disintegrating tablet 4 mg PO Q8H PRN nausea and vomiting lansoprazole 30 mg capsule,delayed release 30 mg PO QAM Take evening before surgery cyclosporine 0.05 % eye drops in a dropperette (Restasis) 1 drp ophthalmic (eye) Q12H oxycodone 5 mg tablet 5 mg PO BID PRN Pain acetaminophen 650 mg tablet,extended release 1,300 mg PO UD PRN Pain verapamil 120 mg tablet,extended release 120 mg PO TID metoprolol tartrate 25 mg tablet 12.5 mg PO BIDM insulin glargine 100 unit/mL (3 mL) subcutaneous pen (Basaglar KwikPen U-100 Insulin) 10 unit subcut HS magnesium chloride 64 mg (magnesium chloride) tablet,delayed release 128 - 192 mg PO TID potassium citrate 10 mEq (1,080 mg) tablet,extended release See Rx Instructions .Route .COMPLEX metformin 500 mg tablet,extended release 24 hr 2,000 mg PO HS montelukast 10 mg tablet 10 mg PO HS bupropion HCl 150 mg 24 hr tablet, extended release 150 mg PO QPM ferrous sulfate 325 mg (65 mg iron) tablet 325 mg PO QPM ondansetron 4 mg disintegrating tablet 4 mg PO Q8H PRN nausea and vomiting ropinirole 0.5 mg tablet 0.5 mg PO HS PRN Restless Leg(S) Other Notes As discussed during RN phone call, last dose to be 10/07/23: semaglutide 1 mg/dose (4 mg/3 mL) subcutaneous pen injector (Ozempic) 1 mg subcut WK STOP TAKING 7 DAYS BEFORE SURGERY: methotrexate sodium 25 mg/mL injection solution 25 mg subcut UD STOP TAKING 3 DAYS BEFORE SURGERY: empagliflozin 10 mg tablet (Jardiance) 10 mg PO QAM If you have any questions please call us at [phone] or [phone] or [phone] or [phone]
--- NOTE | 2023-10-05 09:58 | Anesthesiology Consultation ---
Date of Service October 05, 2023 Assessment & Plan (1) Encounter for pre-operative examination: - Check BSG, coags DOS (warfarin instructions per surgeon/prescriber) - Infectious disease screening: Per assessment on 10/05/23: No known recent infectious disease contacts or current infectious disease symptoms. Previous cough, congestion, sore throat > 10 days ago s/p negative home Covid testing 09/24/23- now at baseline. - LUE limb restriction - Ozempic instructions: Patient informed at PAT visit to stop 7 days prior to surgery- voiced understanding. DOS 10/14/23. Advised last dose to be 10/07/23. - Previous anesthesia experience: * D&C, Mirena insertion (11/24/18): Grade 2 view, Glidescope#3, ETT 7.0, atraumatic elective glidescope intubation x2, 2nd attempt successful * Cysto, laser litho (02/19/2021): LMA#4 (iGel) at [facility] * Colonoscopy (05/20/23): MAC at [facility] - EP visit (05/03/23): "..Seen in annual EP f/u due to PAT.. Her echo just recently done shows preserved EF and no significant valvular pathology.. No change in cardiac medications.." - PCP note (10/03/23): "Low to moderate risk.. Patient is cleared for scheduled surgery" Chart Review Chart Review: Acceptable Risk for Surgery and Patient seen in Pre Admission Testing Teaching & Discussion Pre-Anesthesia Teaching/Discussion Notes: Instructed NPO after midnight before surgery,except medications with 15 cc of water. Medication instructions provided according to the PAT guidelines. History Surgery Operation Date: 10/14/23 10:05 Proposed Procedures p C5-C7 Anterior Cervical Discectomy and Fusion, Possible C4-C5 Corpectomy, Spinal Cord Monitoring - Tera Wilkinson, Height/Weight Height: 5 ft 4 in Weight: 124.8 kg Allergies Allergy/AdvReac Type Severity Reaction Status Date / Time amitriptyline Allergy Intermediate Arms, leg Verified 10/03/23 10:27 swelling codeine Allergy Intermediate Pruritus, Verified 10/03/23 10:27 rash doxepin Allergy Intermediate Arms, leg Verified 10/03/23 10:27 swelling gabapentin Allergy Intermediate Arms, leg Verified 10/03/23 10:27 swelling hyoscyamine Allergy Intermediate Arms, leg Verified 10/03/23 10:27 swelling sitagliptin Allergy Intermediate Arms, leg Verified 10/03/23 10:27 swelling mineral oil [From Vagisil] Allergy Mild Rash Verified 09/28/23 10:00 nickel Allergy Mild Rash Verified 10/03/23 10:27 potassium chloride Allergy Mild Pruritus, Verified 10/03/23 10:27 [From Klor-Con] rash resorcinol [From Vagisil] Allergy Mild Rash Verified 09/28/23 10:00 starch [From Vagisil] Allergy Mild Rash Verified 09/28/23 10:00 adhesive AdvReac Intermediate Rash, Verified 10/03/23 10:27 itching (tape) erythromycin base AdvReac Intermediate Severe Verified 10/03/23 10:27 stomach cramps Tricyclic Antidepressants Allergy Intermediate Arms, leg Uncoded 10/03/23 10:27 swelling Medications Home Medications Medication Instructions Recorded Confirmed Last Taken aspirin 81 mg tablet,delayed 81 mg PO QAM 11/09/17 09/28/23 05/19/23 release atorvastatin 20 mg tablet 20 mg PO QAM 11/09/17 09/28/23 05/20/23 07:15 metoprolol tartrate 25 mg tablet 12.5 mg PO BIDM 11/09/17 09/28/23 05/19/23 potassium citrate 10 mEq (1,080 See Rx Instructions .Route .COMPLEX 11/09/17 09/28/23 05/19/23 mg) tablet,extended release warfarin 5 mg tablet 5 mg PO 2XWK 11/09/17 09/28/23 05/14/23 magnesium chloride 64 mg 128 - 192 mg PO TID 01/08/19 09/28/23 05/19/23 (magnesium chloride) tablet,delayed release lansoprazole 30 mg capsule,delayed 30 mg PO QAM 02/13/19 09/28/23 05/20/23 07:15 release medroxyprogesterone 10 mg tablet 10 mg PO QAM 02/13/19 09/28/23 05/19/23 (Provera) ropinirole 0.5 mg tablet 0.5 mg PO HS PRN Restless Leg(S) 02/13/19 09/28/23 05/18/23 empagliflozin 10 mg tablet 10 mg PO QAM 08/27/20 09/28/23 05/19/23 (Jardiance) escitalopram oxalate 20 mg tablet 20 mg PO QAM 08/27/20 09/28/23 05/20/23 07:15 ferrous sulfate 325 mg (65 mg 325 mg PO QPM 08/27/20 09/28/23 05/13/23 iron) tablet furosemide 20 mg tablet 20 mg PO QAM PRN Edema 08/27/20 09/28/23 05/13/23 leucovorin calcium 5 mg tablet 5 mg PO WK 08/27/20 09/28/23 05/14/23 methotrexate sodium 25 mg/mL 25 mg subcut UD 08/27/20 09/28/23 05/20/23 07:15 injection solution verapamil 120 mg tablet,extended 120 mg PO TID 08/27/20 09/28/23 05/20/23 07:15 release warfarin 5 mg tablet 7.5 mg PO 5XWK 08/27/20 09/28/23 05/14/23 acetaminophen 650 mg 1,300 mg PO UD PRN Pain 01/24/21 09/28/23 05/19/23 tablet,extended release metformin 500 mg tablet,extended 2,000 mg PO HS 01/24/21 09/28/23 05/19/23 release 24 hr montelukast 10 mg tablet 10 mg PO HS 01/24/21 09/28/23 05/19/23 fpnjotrveohw-zadsmdmw-wypgad 1 tab PO QAM 01/24/21 09/28/23 05/13/23 tablet (Multivitamin 50 Plus tablet) vitamin B complex 1 tab PO QAM 01/24/21 09/28/23 05/19/23 ondansetron 4 mg disintegrating 4 mg PO Q8H PRN nausea and 02/09/21 09/28/23 02/18/21 tablet vomiting #7 tabs albuterol sulfate 90 mcg/actuation 2 puff inhalation Q4H PRN Wheezing 07/10/21 09/28/23 05/13/23 aerosol inhaler (Ventolin HFA) biotin 10 mg tablet 10 mg PO QAM 07/10/21 09/28/23 05/19/23 cyclosporine 0.05 % eye drops in a 1 drp ophthalmic (eye) Q12H 07/10/21 09/28/23 05/20/23 dropperette (Restasis) oxycodone 5 mg tablet 5 mg PO BID PRN Pain 07/10/21 09/28/23 05/19/23 semaglutide 1 mg/dose (4 mg/3 mL) 1 mg subcut WK 07/10/21 09/28/23 05/06/23 subcutaneous pen injector (Ozempic) vibegron 75 mg tablet (Gemtesa) 75 mg PO QAM 07/10/21 09/28/23 05/20/23 07:15 bupropion HCl 150 mg 24 hr tablet, 150 mg PO QPM 09/28/23 09/28/23 Unknown extended release insulin glargine 100 unit/mL (3 10 unit subcut HS 09/28/23 09/28/23 Unknown mL) subcutaneous pen (Basaglar KwikPen U-100 Insulin) Past Medical History Medical History Anemia Anxiety and depression Asthma Atrial tachycardia Follows with Dr. Shaw Breast cancer Invasive adenocarcinoma Dx 2010 - B/L mastectomy + chemo + radiation Chronic kidney disease (CKD) Stage 3 Follows with [facility] nephrology Degenerative disc disease Diabetes mellitus, type 2 Fibromyalgia Gastroparesis GERD (gastroesophageal reflux disease) History of kidney stones Hx of deep venous thrombosis Age mid-30s after fall/trauma Hyperlipidemia Hypertension Limb alert care status LUE restriction Morbid obesity with BMI of 40.0-44.9, adult Neuropathy Severe legs/feet Uses assistive devices including mobilized wheelchair Osteoarthritis Overactive bladder Peripheral neuropathy Post traumatic stress disorder Pulmonary embolism Several years ago Raynauds phenomenon Restless legs syndrome Rheumatoid arthritis with inflammatory polyarthropathy Sleep apnea CPAP (compliant) Uterine hyperplasia Currently on hormone therapy Exercise / Class Metabolic Activity III < 4 Walking/Shop/Light housework Past Family History Family History Brother Family history of diabetes mellitus Father Family history of diabetes mellitus Mother Family history of diabetes mellitus Other No family history of adverse response to anesthesia Past Surgical History Surgical History H/O bilateral salpingo-oophorectomy H/O breast reconstruction Implants failed due to infections > subsequent removal History of bilateral mastectomy LUE restriction History of breast biopsy History of carpal tunnel release R/L History of cataract surgery R/L History of cholecystectomy History of colonoscopy 05/20/23, MAC at [facility] History of cystoscopy Cysto, laser litho (02/19/2021): LMA#4 (iGel) at [facility] History of D&C History of esophagogastroduodenoscopy (EGD) History of exploratory laparotomy History of gynecological procedure D&C, Mirena insertion (11/24/18): Grade 2 view, Glidescope#3, ETT 7.0, atraumatic elective glidescope intubation x2, 2nd attempt successful History of herniorrhaphy Umbilical with mesh History of lithotripsy History of tooth extraction History of vascular access device Mediport power port (Right chest) Hx of foot surgery left Nausea and vomiting after administration of anesthetic agent Past Anesthesia History No Hx of Anesthesia Complications and No Family Hx of Anesthesia Complications History of PONV History of PONV and Hx of Motion Sickness Social History Smoking Status: Former smoker tobacco type: cigarettes Smoking cigarettes per day: Quit 1985 Do You Dip or Chew Tobacco: No Hx Alcohol Use: No Hx Substance Use: No substance use type: does not use Review of Systems Patient denies chest pain, shortness of breath, fever, chills, cough, wheezing, palpitations. Physical Exam Vital Signs BP 112/69 P 96 SP02 97%RA RESP 18 Physical Decreased cervical extension range of motion. Full TMJ range of motion. TMD 3 finger breaths (difficult to palpate) Mallampati Score I Dentition: implant posts (upper right side), + missing teeth Lungs: clear throughout to auscultation Cardiac: regular rate and rhythm, no murmurs noted Spine: normal Carotid arteries: negative bruit Extremities: no LE edema Thick neck Lab Results Anesthesia Preop Results Results Anesthesia Widget: WBC 9.02 K/ul (4.8-10.8) 10/05/23 Hgb 12.3 g/dl (12.0-16.0) 10/05/23 Hct 39.5 % (37.0-47.0) 10/05/23 Plt 285 K/uL (130-400) 10/05/23 Na 140 mmol/L (136-145) 10/05/23 K 4.1 mmol/L (3.5-5.1) 10/05/23 Cl 108 mmol/L (98-107) H 07/31/24 CO2 21 mmol/L (21-32) 10/05/23 BUN 14 mg/dl (6-23) 10/05/23 Creat 0.90 mg/dl (0.6-1.2) 10/05/23 Glucose Level 253 mg/dl (70-99(Fasting)) H 10/05/23 PT 19.8 Seconds (9.0-12.0) H 10/05/23 PTT 32 Seconds (21-31) H 10/05/23 INR 1.9 (0.9-1.1) H 10/05/23 HA1c 7.2 % (4.5-5.6) H 10/05/23 Urine Color Yellow 10/05/23 Urine Appearance Clear (Clear) 10/05/23 Urine pH 5.5 (4.5-7.5) 10/05/23 Urine Specific Brethren > 1.045 (1.000-1.030) H 10/05/23 Urine Protein Negative (Negative) 10/05/23 Urine Glucose (UA) 3+ (Negative) H 10/05/23 Urine Ketones Trace (Negative) H 10/05/23 Urine Blood Negative (Negative) 10/05/23 Urine Nitrite Negative (Negative) 10/05/23 Urine Bilirubin Negative (Negative) 10/05/23 Urine Urobilinogen Negative (Negative) 10/05/23 Urine Leukocyte Esterase Trace (Negative) H 10/05/23 Urine WBC (Auto) >50 /hpf (0-5) H 10/05/23 Urine RBC (Auto) 0-2 /hpf (0-2) 10/05/23 Urine Hyaline Casts (Auto) 0-2 /lpf (0-2) 10/05/23 Urine Epithelial Cells (Auto) 0-2 /hpf (0-2) 10/05/23 Urine Bacteria (Auto) None Seen (None Seen) 10/05/23 Urine Yeast Present (None Prsent) A 10/05/23 Blood Type A Positive 10/05/23 Antibody Screen NEGATIVE 10/05/23 Testing Laboratory Results Surgeon's office made aware of abnormal UA* Electrocardiogram Date: 01/21/23 NSR at 97bpm. RBBB. LAFB. Bifascicular block. Possible anterior infarct, age undetermined. Subsequent Echo 03/2023* Echocardiogram Date: 04/05/23 LVEF 55-59%. Septal motion consistent with intraventricular conduction delay. Regional LV wall motion is otherwise normal. Grade I DD. No significant valvular disease. Estimated PASP 35-40mmhg. Other Testing Chest CT Date: 07/04/23 No suspicious pulmonary nodule. Stable right IJ chest wall MediPort terminates in the SVC. No consolidation or pleural effusion. Chronic calcification in the right pulmonary arteries from a prior chronic pulmonary embolism. Partially imaged bilateral renal cysts. Head CT Date: 08/27/23 IMPRESSION: There is no hemorrhage, mass effect, or evidence of acute territorial ischemia by CT criteria. Cervical spine CT Date: 08/27/23 IMPRESSION: There is no evidence of acute fracture or subluxation involving the cervical spine. Osteopenia and spondylotic change as above.
--- OUTSIDE RECORDS SUMMARY | 2023-10-14 06:24 | External Medical Summary | Summary of Care ---
Author Name Unknown Organization [facility] Address [address] [place] [address] Phone [phone] Care Team Providers Care Flavor Extractor Name Role Phone Landon Quilesray Primary Care Provider Encounter Details Date Type Department Care Team (Late st Contact Info) Description 10/06/2023 Orders Only PATIENT PORTAL DO NOT DELETE THIS DEPT USED BY ALEXUS MCADAMS [id number] Allergies Active Allergy Reactions Criticality Noted Date Comments Allopurinol Edema Other,Fever,Hives 07/21/2021 Clindamycin High 03/22/2022 Esophageal swelling and a rash Codeine Itching 12/29/2010 rash Erythromycin 07/25/2000 stomach cramps Gabapentin Edema Other Medium 12/09/2011 Pt c/o edema in feet and hands Hyoscyamine Edema Other 06/29/2018 Sitagliptin Phosphate Edema Other Low 12/06/2013 Ankle and hand swelling Nickel Rash 06/29/2018 Potassium 10/28/2011 Rash with one formulation PO tabs Adhesive Tape 12/25/2010 Tricyclic Antidepressants Medium 04/19/2007 Swelling of hands and arms Vagisil 09/27/2012 documented as of this encounter (statuses as of 10/06/2023) Medications Medication Sig Dispensed Refills Start Date End Date Status TYLENOL ARTHRITIS PAIN 650 MG PO TBCR 2 at bedtime Active NEBULIZER COMPRESSOR MISCIndications:As thma, severity to be determined Use as directed 1 Each 1 3 Active aspirin 81 MG chewable tabletIndications: Morbid obesity due to excess calories (HCC) Take 1 Tab by mouth daily. with food. 100 Tab 5 7 Active Multiple Vitamins-Minerals (WOMENS 50+ ADVANCED) CAPS Take by mouth. Active Biotin 10 MG TABS Take by mouth. Act alden B Complex-Folic Acid (SUPER B COMPLEX MAXI) TABS Take by mouth. Ac tive CPAP every night at bedtime. Auto 10-20 cm Activ e Spacer/Aero-Holdin g Chambers Device Use with advair and albuterol 1 Each 2 Active Sodium Fluoride 1.1 % Dental Gel Apply a thin ribbon to toothbrush. Woodman twice daily in place of normal toothpaste 100 mL 4 3 Active buPROPion HCl ER (XL) 150 MG Oral Tablet Extended Release 24 Hour (Wellbutrin XL)Indications:Mod erate episode of recurrent major depressive disorder (HCC),PTSD (post-traumatic stress disorder) TAKE ONE TABLET BY MOUTH IN THE MORNING 90 Tablet 3 3 10/18/19 24 Active metFORMIN HCl ER 500 MG Oral Tablet Extended Release 24 Hour (Glucophage XR) TAKE 4 TABLETS BY MOUTH DAILY WITH DINNER. 360 Tablet 3 3 11/02/19 24 Active Furosemide 20 MG Oral Tablet (Lasix) TAKE ONE TABLET BY MOUTH DAILY NEEDED FOR LEG SWELLING, FLUID ACCUMULATION OR WEIGHT GAIN. 30 Tablet 11 3 11/24/19 24 Active rOPINIRole HCl 0.5 MG Oral Tablet (Requip)Indication s:Restless leg syndrome TAKE 1 TABLET BY MOUTH AT BEDTIME NEEDED RESTLESS LEGS 90 Tablet 3 3 Active Nystatin-Triamcino lone 752596-0.1 UNIT/GM-% External Cream (Mycolog)Indicatio ns:Tinea cruris APPLY TOPICALLY TO AFFECTED AREA TWO TIMES A DAY FOR 14 DAYS 120 g 1 3 Active Warfarin Sodium 5 MG Oral Tablet (Coumadin)Indicati ons:History of pulmonary embolism,PAT (paroxysmal atrial tachycardia) (HCC) Take by mouth 5 mg ( 1 tablet) every Sun, Shira; 7.5 mg (1 1/2 tablets) all other days or as directed 130 Tablet 3 3 Active cycloSPORINE 0.05 % Ophthalmic Emulsion (Restasis) Instill 1 drop into both eyes every 12 hours 60 Each 6 3 Active Atorvastatin Calcium 20 MG Oral Tablet (Lipitor)Indicatio ns:Dyslipidemia, goal LDL below 100 TAKE 1 TABLET BY MOUTH IN THE MORNING 90 Tablet 9 3 01/01/20 24 Active GNP UltiCare Pen [place] 32G X 4 MM (Insulin Pen Needle) use to inject basaglar once daily 100 Each 3 3 Active Ozempic (2 MG/DOSE) 8 MG/3ML Subcutaneous Solution Pen-injector (Semaglutide (2 MG/DOSE))Indicatio ns:Type 2 diabetes mellitus with hemoglobin A1c goal of less than 8.0% (HCC) Inject 2 mg under the skin once a week. 9 mL 3 3 Active Ondansetron HCl 4 MG Oral TabletIndications: Nausea Take 1 Tablet by mouth every 6 hours as needed for Nausea. 60 Tablet 3 3 Active Empagliflozin 25 MG Oral Tablet (Jardiance)Indicat ions:Type 2 diabetes mellitus with hemoglobin A1c goal of less than 7.0% (HCC) Take 1 Tablet by mouth in the morning. 90 Tablet 3 3 Active Insulin Glargine Solostar 100 UNIT/ML Subcutaneous Solution Pen-injector (Basaglar KwikPen)Indication s:Type 2 diabetes mellitus with hemoglobin A1c goal of less than 7.0% (HCC) Inject 15 Units under the skin every night at bedtime. Titrate up as direct by clinic. Max daily dose of 25 units. 30 mL 5 4 Active Additional Information Patient taking differently: 10 UnitsSubcutaneous QHS, Titrate up as direct by clinic. Max daily dose of 25 units., Reported on 06/28/2023 Potassium Citrate ER 10 MEQ (1080 MG) Oral Tablet Extended Release (Urocit-K) TAKE 3 TABLETS BY MOUTH IN THE MORNING THEN 2 TABLETS IN THE EVENING 150 Tablet 6 4 06/06/19 25 Active Additional Information Patient taking differently: 2 in the morning 3 in the evening, Reported on 06/13/2023 Methotrexate Sodium 50 MG/2ML Injection SolutionIndication s:Inflammatory polyarthritis (HCC) INJECT UNDER THE SKIN (0.8ML) 20MG ONCE A WEEK. 4 mL 5 4 06/08/19 25 Active Famotidine 40 MG Oral Tablet (Pepcid) Take 1 Tablet by mouth at bedtime. 90 Tablet 1 4 Active Levalbuterol Tartrate 45 MCG/ACT Inhalation Aerosol (Xopenex HFA)Indications:Mo derate persistent asthma without complication Inhale 1 Puff by mouth every 4 hours as needed for Wheezing. 15 g 3 4 Active Ferrous Sulfate 325 (65 Fe) MG Oral Tablet (FeroSul)Indicatio ns:Iron deficiency anemia due to chronic blood loss Take 1 Tablet by mouth daily. 90 Tablet 1 4 Active Metoprolol Tartrate 25 MG Oral Tablet (Lopressor)Indicat ions:HTN, goal below 130/80 TAKE 1/2 TABLET BY MOUTH IN THE MORNING AND TAKE 1/2 TABLET BEFORE BEDTIME 90 Tablet 1 4 Active Sodium Bicarbonate 650 MG Oral Tablet Take 1 Tablet by mouth in the morning and 1 Tablet before bedtime. 180 Tablet 3 4 Active medroxyPROGESTERon e Acetate 10 MG Oral Tablet (Provera)Indicatio ns:Endometrial hyperplasia without atypia, simple Take 1 Tablet by mouth in the morning. 30 Tablet 12 4 Active FreeStyle Dewey 3 SensorIndications: Type 2 diabetes mellitus with hemoglobin A1c goal of less than 8.0% ([facility]) Use as directed. 6 Each 3 4 Active Amoxicillin 500 MG Oral Capsule (Amoxil) take 1 capsule (500 mg) by oral route 2 times per day. Start this 2 days before tooth extraction. 14 Capsule 4 Active Additional Information Patient not taking.Reported on 08/22/2023 [employer] Strategist Tray 27G X 1/2" 1 ML Kit (Tuberculin-Allerg y Syringes)Indicatio ns:Inflammatory polyarthritis (HCC) USE DIRECTED TO INJECT METHOTREXATE 0.6 ML ONCE A WEEK 25 Kit 5 4 Active Leucovorin Calcium 5 MG Oral Tablet (Wellcovorin) Take 1 Tablet by mouth once a week. 12 Tablet 9 4 Active Gemtesa 75 MG Oral Tablet (Vibegron) Take 1 Tablet by mouth in the morning. 90 Tablet 3 4 Active Escitalopram Oxalate 20 MG Oral Tablet (Lexapro) TAKE ONE TABLET BY MOUTH DAILY 90 Tablet 3 4 08/16/19 25 Active Verapamil HCl ER 120 MG Oral Tablet Extended Release (Isoptin SR)Indications:PAT (paroxysmal atrial tachycardia) (HCC) TAKE 1 TABLET BY MOUTH 3 TIMES A DAY. 270 Tablet 3 4 08/31/19 25 Active Fluticasone-Salmet tayla 230-21 MCG/ACT Inhalation Aerosol (Advair HFA) Inhale 2 Puffs by mouth in the morning and 2 Puffs before bedtime. 12 g 1 4 Active Magnesium Chloride 64 MG Oral Tablet Delayed Release (Mag64) TAKE 3 TABLETS BY MOUTH IN THE MORNING, TAKE 3 TABLETS WITH DINNER AND TAKE 2 TABLETS AT BEDTIME 450 Tablet 3 4 09/19/19 25 Active oxyCODONE HCl 5 MG Oral Tablet (Oxy IR)Indications:Fib romyalgia Take 1 Tablet by mouth every 8 hours as needed for severe Pain 60 Tablet 4 Active Lansoprazole 15 MG Oral Capsule Delayed Release (Prevacid) Take 1 Capsule by mouth in the morning. 90 Capsule 3 4 Active Montelukast Sodium 10 MG Oral Tablet (Singulair)Indicat ions:Moderate persistent asthma without complication TAKE 1 TABLET BY MOUTH BEFORE BEDTIME 90 Tablet 2 4 09/25/19 25 Active Enoxaparin Sodium 120 MG/0.8ML Injection Solution Prefilled Syringe (Lovenox)Indicatio ns:History of pulmonary embolism Inject 120 mg under the skin in the morning and 120 mg before bedtime. Use as directed for bridge.. 8 mL 4 Active Doxycycline Hyclate 100 MG Oral CapsuleIndications :Bronchitis, complicated Take 1 Capsule by mouth in the morning and 1 Capsule before bedtime. Do all this for 10 days. Until gone.. 20 Capsule 4 10/13/19 24 Active documented as of this encounter (statuses as of 10/06/2023) Active Problems Problem Noted Date Diagnosed Date Hiatal hernia 09/19/2023 Pleural effusion 06/28/2023 Malignant neoplasm of overla pping sites of both breasts in female, estrogen receptor positive 06/28/2023 Encounter for long-term (current) use of medicat ions 01/20/2023 Body mass index (BMI) of 45.0 to 49.9 in adult 0 07/12/2022 Overview: Per Obesity protocol - Per Obesity Protocol, #19 ICD-10 update of inactive term H/O bilateral mastectomy 07/06/2022 Type 2 diabetes mellitus wit h hemoglobin A1c goal of less than 8.0% 06/08/2022 Chronic diastolic congestive heart failure 01/15 Uveitis of right eye 05/27/2021 Generalized osteoarthritis 05/27/2021 PTSD (post-traumatic stress disorder) 11/16/2019 Moderate persistent asthma without complication 04/26/2019 Gastroparesis 04/23/2019 Inflammatory polyarthritis 04/23/2019 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 03/29/2019 HTN, goal below 130/80 03/29/2019 History of breast cancer 03/02/2019 History of pulmonary embolism 08/10/2016 Dyslipidemia 02/22/2014 Raynaud disease 02/22/2014 RLS (restless legs syndrome) 11/10/2012 Overview: Has both aching and restlessness LORE on CPAP 05/23/2006 Gastroesophageal reflux disease with esophagitis 05/10/2003 Fibromyalgia 05/10/2003 BRCA1 positive PAT (paroxysmal atrial tachycardia) documented as of this encounter (statuses as of 10/06/2023) Resolved Problems Problem Noted Date Diagnosed Date Resolved Date Malignant neoplasm of overla pping sites of right female breast 06/08/2022 07/06/2022 Primary osteoarthritis of both knees 07/02/2021 07/06/2022 Chronic obstructive pulmonary disease 05/14/2021 07/16/2021 Overview: Per COPD GOLD Classification Dysplasia of cervix, low grade (JASWINDER 1) 05/05/2021 07/06/2022 Overview: repeat pap 1 yr Wheelchair dependence 04/23/20192020 Malignant neoplasm of overla pping sites of both breasts in female, estrogen receptor negative 03/29/2019 04/22/2019 Stage 3 chronic kidney disease 03/29/2019 06/13/2019 Overview: ICD-10 update of inactive term Chronic obstructive pulmonary disease 03/29/2019 04/26/2019 Type 2 diabetes mellitus wit h diabetic chronic kidney disease 03/29/2019 07/06/2022 Moderate episode of recurren t major depressive disorder 03/29/2019 07/06/2022 Type 2 diabetes mellitus wit h diabetic peripheral angiopathy without gangrene 03/29/2019 0 07/06/2022 ADVANCE DIRECTIVE INFORMATION 08/03/2018 04/22/2019 Overview: Information given to patient Pulmonary embolism and infarction 06/30/2018 04/22/2019 Family history of malignant neoplasm of breast 10/12/2017 04/22/2019 Overview: Mother, multiple aunties Nephrolithiasis 05/23/2017 04/22/2019 Overview: Left sided 5mm noted on CT done by Matthew 05/05/17 Left nephrolithiasis 01/23/2017 020 Moderate single current epis ode of major depressive disorder 08/16/2016 04/22/2019 Bilateral malignant neoplasm of overlapping sites of breast in female 08/16/2016 04/22/2019 Chronic UTI 07/07/2016 09/03/2016 Asthma, moderate persistent 12/06/2013 04/22/2019 MEDICATION USE AGREEMENT 08/11/2012 Hypomagnesemia 08/09/2012 04/22/2019 Dyslipidemia, goal LDL below 100 02/09/2012 09/25/2018 Umbilical hernia 01/03/2012 04/22/2019 Herpes zoster 06/28/2011 12/16/2016 Anemia due to antineoplastic chemotherapy 05/13/2011 09/03/2016 Encounter for therapeutic drug monitoring 01/26/2011 07/06/2022 Acute sinusitis 06/15/2010 05/12/2011 Morbid obesity 08/19/2009 07/14/2022 Overview: Per Obesity Protocol, #19 ICD-10 update of inactive term Type 2 diabetes mellitus wit h hemoglobin A1c goal of less than 7.0% 01/02/2009 07/06/2022 Overview: Per Diabetes Taxonomy. ICD-10 update of inactive term Type 2 diabetes mellitus wit h hemoglobin A1c goal of less than 7.0% 07/28/2006 01/02/2009 Overview: Per Diabetes Taxonomy. ICD-10 update of inactive term Deviated nasal septum 05/18/20042019 NONALLERGIC RHINITIS 05/10/2003 020 Other lymphedema 06/06/2001 04/22/2019 DEEP PHLEBITIS-LEG NEC 07/10 Body mass index (BMI) of 40.0-44.9 in adult 07/10/2013 Overview: ICD-10 update of inactive term Insomnia 04/22/2019 Overview: ICD-10 update of inactive term Degeneration of cervical intervertebral disc 07/06/2022 Asthma 05/12/2016 documented as of this encounter (statuses as of 10/06/2023) Immunizations Name Administration Dates Next Due COVID-19 mRNA, LNP-s, No Pre serve, 2-Dose Series ([employer]) 12/18/2020,06/20/2020,05/30/2020 COVID-19, LNP-s, No Preserve , Marshal-sucrose, Ages 12+ ([employer]) 06/25/2021 Covid-19, Mrna, Lnp-s, Pf, B ivalent, 30 Mcg, IM, 12 yrs and above ([employer]) 12/31/2021 H1N1 2009 Influenza, IM 02/24/2009 Hepatitis B, 20+ yrs 08/24/2013,04/10/2013,02/20 Pneumococcal Conjugate Vacc, 13 Valent (Prevnar) 11/16/2019 Pneumococcal Polysaccharide PPV23 (Pneumovax) 07/22/2020,11/10/2006 Seasonal Influenza, PF, 6 M & above, IM , (FluLaval or Fluzone) 11/21/2020,11/26/2019,11/14/2018,11/15,12/03/2016 Seasonal Influenza, Quadriva lent Hd (Fluzone Hd) 11/25/2022,12/03/2021 Seasonal Influenza, Quadriva lent, No Preserve, IM 11/11/2015,12/26/2014 Seasonal Influenza, Split, I IV3, With Preserve, Inj 11/19/2013,11/28/2012,11/25/2011,01/16,11/25/2008,12/27/2007,01/09/2007 ,03/11/2006 TD, Preservative Free 11/15/2017 TDAP, Age 7 and older, IM (Adacel) 09/12/2007 Zoster Vaccine Recombinant (Shingrix) 10/11/2019 ,03/10/2018 documented as of this encounter Social History Tobacco Use Types Packs/Day Years Used Date Smoking Tobacco: Former Cigarettes 2 14 0 03/07/1970 - 03/07/1984 Smokeless Tobacco: Never Alcohol Use Standard Drinks/Week Comments No 0 (1 standard drink = 0.6 oz pur e alcohol) PHQ-2 Answer Date Recorded PHQ Adult Total Score 0 06/08/2022 Hunger Vital Sign Answer Date Recorded Within the past 12 months, y ou worried that your food would run out before you got the money to buy more. Never true 12/29/19 23 Within the past 12 months, t he food you bought just didn't last and you didn't have money to get more. Never true 12/28/2022 Childcare Answer Date Recorded Do you feel overwhelmed with taking care of a child, family member or friend? No 12/28/2022 Does your family need help f inding childcare? (Household - for ages 0-17 years) Not on file 12/28/2022 Clothing Answer Date Recorded Have you been unable to get clothing when it was really needed? No 12/28/2022 Is your family able to get c lothes or diapers when needed? (Household - for ages 0-17 years) Not on file 12/28/2022 Personal Safety Answer Date Recorded Do you feel unsafe or have concerns for your saf ety? No 12/28/2022 Do you have concerns for you r family's safety? (Household - for ages 0-17 years) Not on file 12/28/2022 Utilities Answer Date Recorded Do you have trouble paying y our heating, water, or electric bill? No 12/28/2022 Is your family able to pay t he heat, water, or electric bill? (Household - for ages 0-17 years) Not on file 12/28/2022 Does your family have access to good internet? (Household - for ages 0-17 years) Not on file 12/28/2022 Employment Status Answer Date Recorded Are you unemployed or without regular income? No 12/28/2022 Does the household have a re gular source of income? (Household - for ages 0-17 years) Not on file 12/28/2022 Social Connections Answer Date Recorded How often do you feel lonely or isolated from those around you? Sometimes 12/28/2022 Financial Resource Strain Answer Date R ecorded Do you have any trouble payi ng for your medications, or do you think you might in the future? No 12/28/2022 Does your family have troubl e paying for medicine? (Household - for ages 0-17 years) Not on file 12/28/2022 Transportation Needs Answer Date Record ed READ ONLY Do you have troubl e getting a ride to medical visits or work? Never True 12/28/2022 Does your family have a hard time getting a ride to doctors visits? (Household - for ages 0-17 years) Not on file 12/28/2022 Has lack of transportation k ept you from medical appointments, meetings, work, or from getting things needed for daily living? Check all that apply. (Adult - for ages 18 years and over) Not on file 12/28/2022 Do you (or your family) have trouble finding or paying for a ride (transportation)? (Household - for ages 0-17 years) Not on file 12/28/2022 Housing Stability Answer Date Recorded Do you currently live in a s helter or have no steady place to sleep at night? No 12/28/2022 READ ONLY Do you think you a re at risk of becoming homeless? No 12/28/2022 Does your family worry about paying for your home or becoming homeless? (Household - for ages 0-17 years) Not on file 1 Are you homeless or worried that you might be in the future? (Adult - for ages 18 years and over) Not on file Are you (or your family) jersey eless or worried that you might be in the future? (Household - for ages 0-17 years) Not on file Food Insecurity Answer Date Recorded Do you need food for this week? No 12/28/2022 Are you able to get enough f ood for your family? (Household - for ages 0-17 years) Not on file 12/28/2022 Does your family need food t his week? (Household - for ages 0-17 years) Not on file 12/28/2022 Do you always have enough fo od for your family? (Household - for ages 0-17 years) Not on file 12/28/2022 Sex and Gender Information Value Date Recorded Sex Assigned at Female 03/29/2019 1:42 PM EST Gender Identity Female 03/29/2019 1:42 PM EST Sexual Orientation Straight 03/29/2019 1: 42 PM EST Job Start Date Occupation Industry Not on file Not on file Not on file documented as of this encounter Plan of Treatment Upcoming Encounters Date Type Department Care Team (Late st Contact Info) Description 10/25/2023 1:30 PM EDT Office Visit Orthopaedics [facility] [address] [address] Yonas Coy MD [address] [place] [address] 10/28/2023 1:00 PM EDT Anticoagulation Pharmacy, [facility] [address] [facility] [place] [address] Pharmacist2, [facility] [address] [place] [place] [address] 10/31/2023 11:00 AM EDT Imaging Radiology [facility] 1st [facility] [address] [address] 11/01/2023 1:20 PM EDT Office Visit Rheumatology [place] [id number] [facility] [place] [address] Dayday [place] MD [facility] [place] [address] 11/04/2023 1:30 PM EDT Office Visit Cardiology, [facility] [address] [address] [facility]fer [facility] [address] 11/04/2023 2:30 PM EDT Immunization/Injection Hematology/Oncology Treatment, [place] [address] [facility], [place] [phone] Park, Chair 9 Hem Onc [address] [place] [address] 11/16/2023 11:45 AM EDT Office Visit Urology, [facility] [address] [place] [address] Faustino Cárdenas MD [address] [place] [address] 11/16/2023 1:30 PM EDT Office Visit Otolaryngology [facility] [address] [place] [address] Meir Song, 132 [place] [address] 11/30/2023 1:00 PM EDT Office Visit Hematology/Oncology [address] [place] [phone] Daniella Mccord CRNP [address] [place] [address] 12/07/2023 1:00 PM EDT Office Visit Pharmacy, [facility] [address] [facility] [place] [address] Pharmacist2, [facility] Sp [address] [place] [address] 12/07/2023 1:40 PM EDT Anticoagulation Pharmacy, [facility] [address] [facility] [place] [address] Pharmacist2, [facility] [address] [facility] [place], [place] [address] 12/27/2023 3:30 PM EDT Office Visit Gastroenterology, [facility] [address] [place] [address] Franchesca Almaraz CRNP [address] [place] [address] 01/10/2024 1:00 PM EST Office Visit Family Practice [facility] [address] [address] Landon Quiles, DO [address] [address] 05/11/2024 1:40 PM EST Office Visit [facility] Practice [facility] [address] [address] [address] Jackeline Diaz CRNP [address] [place] [address] 09/17/2024 11:40 AM EDT Office Visit Sleep Disorders Ctr [facility] [address] [place] [phone] Bernadette Zuniga, DO [address] [place] [address] Health Maintenance Due Date Last Done Comments Cologuard 2001 Fecal Occult Blood Test 2001 Sigmoidoscopy 2001 Diabetic Eye Exam 02/16/2023 02/16/2022, , 04/25/2019, Additional history exists Depression Screening 06/09/2023 06/08/2022 Diabetic Foot Exam 06/09/2023 06/08/2022, 0 07/10/2021, 07/22/2020, Additional history exists COVID-19 Vaccine (7 - 2023- season) 2023 06/25/2023, 12/31/2021, 06/25/2021, Additional history exists Influenza Vaccine (FLU shot) (#1) 2023 11/25/2022, 12/03/2021, 11/21/2020, Additional history exists HbA1c 04/01/2024 09/30/2023, 04/07, 12/21/2022, Additional history exists B-12 05/31/2024 06/01/2023, 05/0 10/2022, 03/02/2021, Additional history exists Albumin/Creatinine Ratio 06/28/2024 024, 07/12/2022, 04/07/2021, Additional history exists GFR 06/30/2024 07/01/2023, 06/06, 06/13/2023, Additional history exists Pneumococcal Vaccine: 65+ Years (4 of 4 - PPSV23 or PCV20) 07/22/2025 07/22/2020, 11/16/2019, 11/10/2006 DTaP,Tdap,and Td Vaccines (3 - Td or Tdap) 11/16/2027 11/15/2017, 09/12/2007 Colonoscopy 05/19/2028 05/20/2023, 10/06, 08/11/2012, Additional history exists Colorectal Cancer Screening 05/19/2028 Lipid Panel 06/28/2028 06/29/2023, 05/0 10/2022, 03/02/2021, Additional history exists DXA Scan 02/22/2029 02/22/2022 Discuss Risk-Reducing Salpingo Oophorectomy (RRSO) Recommendation BRCA1/BRCA2,Ages 30 & Up 07/17/2029 Postponed from 1986 (Not Indicated) Hepatitis B Vaccine Completed 08/24/2013, 04/10/2013, 02/20/2013 Hepatitis C Screening Completed 04/03/2014 Zoster Vaccines Completed 10/11/2019, 03/10/2018 *BASELINE EKG FOR HTN Completed 01/21/2023 , 01/15/2022, 03/14/2020, Additional history exists RETIRED - COLONOSCOPY-EVERY 5 YRS AGES 18-100 Discontinued 05/20/2023, 10/25/2017, 08/11/2012, Additional history exists HPV (Gardasil) Vaccine Aged Out No lo nger eligible based on patient's age to complete this topic MENINGOCOCCAL (MENACTRA/MENVEO) Aged Out No longer eligible based on patient's age to complete this topic documented as of this encounter Medical Devices Implanted Type Area Insurance Risk Manager Device Identifier Shelf Expiration Date Model / Serial / Lot Graft Flex Hd 6 X 16cm [id number] - [id number] Implanted:Qty : 1 on 09/22/2010 at [place] [facility] [place] - Human Left: Breast [employer]OSKELETAL TRANSPLANT FND 04/28/2013 [id number] / [id number] / Graft Flex Hd 6 X 16cm [id number] - [id number] Implanted:Qty : 1 on 09/22/2010 at [place] [facility] [place] Tissue - Human Right: Chest [employer]KELET[employer] TRANSPLANT FND 04/28/2013 [id number] / [id number] / Mediport Pwr Isp 8fr [id number] - [id number] Implanted:Qty : 1 on 09/22/2010 at [place] [facility] [place] Right: Chest CR BARD : [employer]ESS [employer] 07/13/2012 [id number] / / [id number] Breast Implant 354-2515 Saline - [id number] Implanted:Qty : 1 on 09/22/2010 at [place] [facility] [place] Right: Breast MENTOR EVA 12/13/2013 [id number] / [id number] Breast Implant 354-2515 Saline - [id number] Implanted:Qty : 1 on 09/22/2010 at [place] [facility] [place] Left: Breast MENT[employer] EVA 07/13/2014 [id number] / [id number] Lens Intraoc 16.5 - [id number] - [id number] Implanted:Qty : 1 on 02/20/2016 by Lincoln Garces MD at OR [facility] Left: Eye BAUSCH [employer] LOMB 08/04/2020 [id number] / [id number] / [id number] Lens Intraoc 15.5 - [id number] - [id number] Implanted:Qty : 1 on 03/09/2016 by Lincoln Garces MD at OR [facility] Right: Eye BAUSCH & LOMB 12/04/2017 [id number] / [id number] / documented as of this encounter Advance Directives * Full Code (Latest Code Status on File) Date Activated Date Inactivated Comments 03/09/2016 7:05 AM 03/09/2016 2:19 PM This order ref lects the patients wishes and were consensually agreed upon. * Full Code Date Activated Date Inactivated Comments 02/20/2016 10:40 AM 02/20/2016 4:38 PM This orde r reflects the patients wishes and were consensually agreed upon. * Full Code Date Activated Date Inactivated Comments 12/29/2010 10:41 AM 12/29/2010 5:22 PM This orde r reflects the patients wishes and were consensually agreed upon. Question Answer Comments Discussion of Advance Directives occurred with: Not Discussed Does the patient have a Living Will? No Does the patient have Health Care Power of Attor leia? No * Full Code Date Activated Date Inactivated Comments 12/29/2010 8:14 AM 12/29/2010 10:41 AM This orde r reflects the patients wishes and were consensually agreed upon. Question Answer Comments Discussion of Advance Directives occurred with: Patient Does the patient have a Living Will? No Does the patient have Health Care Power of Attor leia? No * Full Code Date Activated Date Inactivated Comments 09/22/2010 2:22 PM 09/26/2010 6:01 PM This order r eflects the patients wishes and were consensually agreed upon. Care Teams Flavor Extractor Relationship Specialty Start Date End Date Landon Quiles DO [facility] [place] [address] PCP - General Family Medicine 03/19/19 documented as of this encounter
--- OUTSIDE RECORDS SUMMARY | 2023-10-14 06:24 | External Medical Summary | Summary of Care ---
Author Name Unknown Organization [facility] Address [address] [place] [address] Phone [phone] Care Team Providers Care Contact Lens Flashing Puncher Name Role Phone Sylvester Quiles DO Primary Care Provider Reason for Visit * Reason Comments Medication Refill Encounter Details Date Type Department Care Team (Late st Contact Info) Description 10/10/2023 Refill Family Practice [facility] [address] [place] [address] Sylvester Quiles DO [address] [place] [address] Moderate episode of recurrent major depressive disorder (HCC); PTSD (post-traumatic stress disorder) Allergies Active Allergy Reactions Criticality Noted Date [...] as of this encounter (statuses as of 10/11/2023) Medications Medication Sig Dispensed Refills Start Date End Date Status TYLENOL ARTHRITIS PAIN 650 MG PO TBCR 2 at bedtime Active NEBULIZER COMPRESSOR MISCIndications:A sthma, severity to be determined Use as directed 1 Each 1 3 Active aspirin 81 MG chewable tabletIndications :Morbid obesity due to excess calories (HCC) Take 1 Tab by mouth daily. with food. 100 Tab 5 7 Active Multiple Vitamins-Minerals (WOMENS 50+ ADVANCED) CAPS Take by mouth. Active Biotin 10 MG TABS Take by mouth. Act alden B Complex-Folic Acid (SUPER B COMPLEX MAXI) TABS Take by mouth. Active CPAP every night at bedtime. Auto 10-20 cm Active Spacer/Aero-Holdi ng Chambers Device Use with advair and albuterol 1 Each 2 Active Sodium Fluoride 1.1 % Dental Gel Apply a thin ribbon to toothbrush. [place] twice daily in place of normal toothpaste 100 mL 4 3 Active metFORMIN HCl ER 500 MG Oral Tablet Extended Release 24 Hour (Glucophage XR) TAKE 4 TABLETS BY MOUTH DAILY WITH DINNER. 360 Tablet 3 3 11/02/19 24 Active Furosemide 20 MG Oral Tablet (Lasix) TAKE ONE TABLET BY MOUTH DAILY NEEDED FOR LEG SWELLING, FLUID ACCUMULATION OR WEIGHT GAIN. 30 Tablet 11 3 11/24/19 24 Active rOPINIRole HCl 0.5 MG Oral Tablet (Requip)Indicatio ns:Restless leg syndrome TAKE 1 TABLET BY MOUTH AT BEDTIME NEEDED RESTLESS LEGS 90 Tablet 3 3 Active Nystatin-Triamcin olone 332365-8.1 UNIT/GM-% External Cream (Mycolog)Indicati ons:Tinea cruris APPLY TOPICALLY TO AFFECTED AREA TWO TIMES A DAY FOR 14 DAYS 120 g 1 3 Active Warfarin Sodium 5 MG Oral Tablet (Coumadin)Indicat ions:History of pulmonary embolism,PAT (paroxysmal atrial tachycardia) (HCC) Take by mouth 5 mg ( 1 tablet) every Sun, Shira; 7.5 mg (1 1/2 tablets) all other days or as directed 130 Tablet 3 3 Active cycloSPORINE 0.05 % Ophthalmic Emulsion (Restasis) Instill 1 drop into both eyes every 12 hours 60 Each 6 3 Active Atorvastatin Calcium 20 MG Oral Tablet (Lipitor)Indicati ons:Dyslipidemia, goal LDL below 100 TAKE 1 TABLET BY MOUTH IN THE MORNING 90 Tablet 9 3 01/01/20 24 Active GNP UltiCare Pen [place] 32G X 4 MM (Insulin Pen Needle) use to inject basaglar once daily 100 Each 3 3 Active Ozempic (2 MG/DOSE) 8 MG/3ML Subcutaneous Solution Pen-injector (Semaglutide (2 MG/DOSE))Indicati ons:Type 2 diabetes mellitus with hemoglobin A1c goal of less than 8.0% (HCC) Inject 2 mg under the skin once a week. 9 mL 3 3 Active Ondansetron HCl 4 MG Oral TabletIndications :Nausea Take 1 Tablet by mouth every 6 hours as needed for Nausea. 60 Tablet 3 3 Active Empagliflozin 25 MG Oral Tablet (Jardiance)Indica tions:Type 2 diabetes mellitus with hemoglobin A1c goal of less than 7.0% (HCC) Take 1 Tablet by mouth in the morning. 90 Tablet 3 3 Active Insulin Glargine Solostar 100 UNIT/ML Subcutaneous Solution Pen-injector (Basaglar KwikPen)Indicatio ns:Type 2 diabetes mellitus with hemoglobin A1c [...] on 06/13/2023 Methotrexate Sodium 50 MG/2ML Injection SolutionIndicatio ns:Inflammatory polyarthritis (HCC) INJECT UNDER THE SKIN (0.8ML) 20MG ONCE A WEEK. 4 mL 5 4 06/08/19 25 Active Famotidine 40 MG Oral Tablet (Pepcid) Take 1 Tablet by mouth at bedtime. 90 Tablet 1 4 Active Levalbuterol Tartrate 45 MCG/ACT Inhalation Aerosol (Xopenex HFA)Indications:M oderate persistent asthma without complication Inhale 1 Puff by mouth every 4 hours as needed for Wheezing. 15 g 3 4 Active Ferrous Sulfate 325 (65 Fe) MG Oral Tablet (FeroSul)Indicati ons:Iron deficiency anemia due to chronic blood loss Take 1 Tablet by mouth daily. 90 Tablet 1 4 Active Metoprolol Tartrate 25 MG Oral Tablet (Lopressor)Indica tions:HTN, goal below 130/80 TAKE 1/2 TABLET BY MOUTH IN THE MORNING AND TAKE 1/2 TABLET BEFORE BEDTIME 90 Tablet 1 4 Active Sodium Bicarbonate 650 MG Oral Tablet Take 1 Tablet by mouth in the morning and 1 Tablet before bedtime. 180 Tablet 3 4 Active medroxyPROGESTERo ne Acetate 10 MG Oral Tablet (Provera)Indicati ons:Endometrial hyperplasia without atypia, simple Take 1 Tablet by mouth in the morning. 30 Tablet 12 4 Active FreeStyle Dewey 3 SensorIndications :Type 2 diabetes mellitus with hemoglobin A1c goal of less than 8.0% ([facility]) Use as directed. 6 Each 3 4 Active Amoxicillin 500 MG Oral Capsule (Amoxil) take 1 capsule (500 mg) by oral route 2 times per day. Start this 2 days before tooth extraction. 14 Capsule 4 Active Additional Information Patient not taking.Reported on 08/22/2023 BD Packaging Sales Consultant Tray 27G X 1/2" 1 ML Kit (Tuberculin-Aller gy Syringes)Indicati ons:Inflammatory polyarthritis (HCC) USE DIRECTED TO INJECT METHOTREXATE [...] 120 MG Oral Tablet Extended Release (Isoptin SR)Indications:PA T (paroxysmal atrial tachycardia) ([facility]) TAKE 1 TABLET BY MOUTH 3 TIMES A DAY. 270 Tablet 3 4 08/31/19 25 Active Fluticasone-Salme terol 230-21 MCG/ACT Inhalation Aerosol (Advair HFA) Inhale [...] oxyCODONE HCl 5 MG Oral Tablet (Oxy IR)Indications:Fi bromyalgia Take 1 Tablet by mouth every 8 hours as needed for severe Pain 60 Tablet 4 Active Lansoprazole 15 MG Oral Capsule Delayed Release (Prevacid) Take 1 Capsule by mouth in the morning. 90 Capsule 3 4 Active Montelukast Sodium 10 MG Oral Tablet (Singulair)Indica tions:Moderate persistent asthma without complication TAKE 1 TABLET BY MOUTH BEFORE BEDTIME 90 Tablet 2 4 09/25/19 25 Active Enoxaparin Sodium 120 MG/0.8ML Injection Solution Prefilled Syringe (Lovenox)Indicati ons:History of pulmonary embolism Inject 120 mg under the skin in the morning and 120 mg before bedtime. Use as directed for bridge.. 8 mL 4 Active Doxycycline Hyclate 100 MG Oral CapsuleIndication s:Bronchitis, complicated Take 1 Capsule by mouth in the morning and 1 Capsule before bedtime. Do all this for 10 days. Until gone.. 20 Capsule 4 10/13/19 24 Active buPROPion HCl ER (XL) 150 MG Oral Tablet Extended Release 24 Hour (Wellbutrin XL)Indications:Mo derate episode of recurrent major depressive disorder (HCC),PTSD (post-traumatic stress disorder) TAKE ONE TABLET BY MOUTH IN THE MORNING 90 Tablet 3 4 10/11/19 25 Active buPROPion HCl ER (XL) 150 MG Oral Tablet Extended Release 24 Hour (Wellbutrin XL)Indications:Mo derate episode of recurrent major depressive disorder (HCC),PTSD (post-traumatic stress disorder) TAKE ONE TABLET BY MOUTH IN THE MORNING 90 Tablet 3 3 10/10/19 24 Discontin ued(Refil l) documented as of this encounter (statuses as of 10/11/2023) Active Problems Problem Noted Date Diagnosed Date [...] as of this encounter (statuses as of 10/11/2023) Resolved Problems Problem Noted Date Diagnosed Date [...] as of this encounter (statuses as of 10/11/2023) Immunizations Name Administration Dates Next Due COVID-19 mRNA, LNP-s, No Pre serve, 2-Dose Series (Archsy) 12/18/2020,06/20/2020,05/30/2020 COVID-19, LNP-s, No Preserve , Marshal-sucrose, Ages 12+ (Pfizer) 06/25/2021 Covid-19, Mrna, Lnp-s, Pf, B ivalent, 30 Mcg, IM, 12 yrs and above (Archsy) 12/31/2021 H1N1 2009 Influenza, IM 02/24/2009 Hepatitis B, 20+ yrs 08/24/2013,04/10/2013,12/17 /2013 Pneumococcal Conjugate Vacc, 13 Valent (Prevnar) 11/16/2019 [...] on file documented as of this encounter Miscellaneous Notes * Telephone Encounter - Gerson Hernandez RPh - 10/11/2023 3:16 PM EDT Signed Prescriptions: Disp Refills buPROPion HCl ER (XL) 150 MG Oral Tablet E*90 Tab*3 Sig: TAKE ONE TABLET BY MOUTH IN THE MORNINGAuthorizing Provider: SYLVESTER QUILES User: GERSON HERNANDEZ documented in this encounter Plan of Treatment Upcoming Encounters Date Type Department Care Team (Late st Contact Info) Description 10/25/2023 1:30 PM EDT Office Visit Orthopaedics [facility] [address] [facility] [place] [address] Yonas Coy MD [address] [facility] [place] [address] 10/28/2023 1:00 PM EDT Anticoagulation Pharmacy, [facility] [address] [facility] [place] [address] Pharmacist2, [facility] [address] [facility] [place] [address] 10/31/2023 11:00 AM EDT Imaging Radiology [facility] [address] [facility] [place] [address] 11/01/2023 1:20 PM EDT Office Visit Rheumatology [address] [place] [address] Dayday [place] MD [facility] [place] [address] 11/04/2023 1:30 PM EDT Office Visit Cardiology, [facility] [address] [facility] [place] [address] Catalina Schafer CRNP [address] [place], [place] [address] [address] 11/04/2023 2:30 PM EDT Immunization/Injection Hematology/Oncology Treatment, [place] [address] [facility] [place] [phone] Sarai, Chair 9 Hem Onc [facility] [address] [facility] [place] [address] 11/16/2023 11:45 AM EDT Office Visit Urology, [facility] [address] [facility] [place] [address] Faustino Cárdenas MD [address] [place] [address] 11/16/2023 1:30 PM EDT Office Visit Otolaryngology [facility] [address] [facility] [place] [address] Meir Song DO [address] [place] [address] 11/30/2023 1:00 PM EDT Office Visit Hematology/Oncology [facility] [address] [facility] [place] [address] Daniella Mccord CRNP [address] [facility] [place] [address] 12/07/2023 1:00 PM EDT Office Visit Pharmacy, [facility] [address] [facility] [place] [address] Pharmacist2, [facility] [address] [facility] [place], [place] [address] 12/07/2023 1:40 PM EDT Anticoagulation Pharmacy, [facility] [address] [facility] [place] [address] Pharmacist2, [facility] [address] [facility] [place] [address] 12/27/2023 3:30 PM EDT Office Visit Gastroenterology, [facility] [address] [facility] [place] [address] Franchesca Almaraz CRNP [address] [place] [address] 01/10/2024 1:00 PM EST Office Visit Family Practice [facility] [address] [facility] [place] [address] Sylvester Quiles, DO [address] [place] [address] 05/11/2024 1:40 PM EST Office Visit Family Practice [facility] [address] [place] [address] Jackeline Diaz CRNP [address] [place] [address] 09/17/2024 11:40 AM EDT Office Visit Sleep Disorders Ctr [facility] [address] [place] [phone] Bernadette Zuniga, DO [address] [place] [address] Health Maintenance Due Date Last Done Comments Cologuard 2001 Fecal Occult Blood Test 2001 Sigmoidoscopy 2001 Adult Wellness Visit 2022 Diabetic Eye Exam 02/16/2023 02/16/2022, , 04/25/2019, Additional history exists Depression Screening 06/09/2023 06/08/2022 Diabetic Foot Exam 06/09/2023 06/08/2022, 0 07/10/2021, 07/22/2020, Additional history exists COVID-19 Vaccine ( season) 2023 06/25/2023, 12/31/2021, 06/25/2021, Additional history [...] Hepatitis B Vaccine Completed 08/24/2013, 04/10/2013, 02/20/2013 Zoster Vaccines Completed 10/11/2019, 03/10/2018 RETIRED - COLONOSCOPY-EVERY 5 YRS AGES 18-100 Discontinued 05/20/2023, 10/25/2017, 08/11/2012, Additional history exists HPV (Gardasil) Vaccine Aged Out No lo nger eligible based on patient's age to complete this topic MENINGOCOCCAL (MENACTRA/MENVEO) Aged Out No longer eligible based on patient's age to complete this topic documented as of this encounter Medical Devices Implanted Type Area Dredge Master Device Identifier Shelf Expiration Date Model / Serial / Lot Graft Flex Hd 6 X 16cm [id number] - [id number] [place]planted:Qty : 1 on 09[place]22/[place] [facility] [place] - Human Left: Breast MUSCULOSKELETAL TRANSPLANT FND 04/28/2013 [id number] / [id number] / Graft Flex Hd 6 X 16cm [id number] - [id number] Implanted:Qty : 1 on 09/22/2010 [place] [facility] [place] - Human Right: Chest MUSCULOSKELETAL TRANSPLANT FND 04/28/2013 [id number] / [id number] / Mediport Pwr Isp 8fr [id number] - [id number] Implanted:Qty : 1 on 09/22/2010 [place] [facility] [place]: Chest CR BARD : ACCESS SYSTEMS 07/13/2012 [id number] / / [id number] Breast Implant 354-2515 Saline - [id number] Implanted:Qty : 1 on 09/22/2010 [place] [facility] [place]: Breast MENTOR EVA 12/13/2013 354-2515 / [id number] Breast Implant 354-2515 Saline - [id number] Implanted:Qty : 1 on 09/22/2010 [place] [facility] Left: Breast MENTOR EVA 07/13/2014 [id number] / [id number] Lens Intraoc 16.5 - [id number] - [id number] Implanted:Qty : 1 on 02/20/2016 by Lincoln Garces MD at OR [facility] Left: Eye BAUSCH & LOMB 08/04/2020 [id number] / [id number] Lens Intraoc 15.5 - [id number] - [id number] Implanted:Qty : 1 on 03/09/2016 by Lincoln Garces MD at OR [facility] Right: Eye BAUSCH & LOMB 12/04/2017 [id number] / [id number] / documented as of this encounter Visit Diagnoses Diagnosis Moderate episode of recurrent major depressive disorder (HCC) PTSD (post-traumatic stress disorder) Posttraumatic stress disorder documented in this encounter Advance Directives * Full Code [...] and were consensually agreed upon. Care Teams Contact Lens Flashing Puncher Relationship Specialty Start Date End Date Sylvester Quiles DO [address] [place] [address] PCP - General Family Medicine 03/19/19 documented as of this encounter
[2023-10-14] MEDS ORDERED: ATROPINE SULFATE 0.1 MG/ML 10ML SYR IV PRN (07:04)
[2023-10-14] MEDS ORDERED: PROMETHAZINE HCL 6.25 MG in SODIUM CHLORIDE 0.9% 50 ML IV PRN (07:04)
[2023-10-14] MEDS ORDERED: ePHEDrine sulfate 50 MG/ML AMP IV PRN (07:04)
[2023-10-14] MEDS ORDERED: DEXAMETHASONE SOD INJ 4 MG/ML VIAL ONE (07:10)
[2023-10-14] MEDS ORDERED: MIDAZOLAM HCL 1 MG/ML 2ML VIAL ONE (07:10)
[2023-10-14] MEDS ORDERED: LIDOCAINE 2% 2 ML VIAL/AMP(20MG/ML) INFIL ONE (07:10)
[2023-10-14] MEDS ORDERED: PROPOFOL IV EMULSION 10 MG/ML 20 ML VIAL IV ONE (07:10)
[2023-10-14] MEDS ORDERED: ONDANSETRON INJ 2 MG/ML 2 ML VIAL ONE (07:10)
[2023-10-14] MEDS ORDERED: fentaNYL citrate PF 100 MCG/2 ML VIAL ONE ×2 (07:11→10:04)
[2023-10-14] MEDS: LR 15ML/HR IV SCH (07:13)
[2023-10-14] MEDS: CeleBREX 200 MG CAP PO SCH (07:13)
[2023-10-14] MEDS: LR 60ML/HR IV SCH (07:13)
[2023-10-14 07:19] LABS: Partial Thromboplastin Time 26 Seconds (21-31); Prothrombin Time 11.2 Seconds (9.0-12.0)
[2023-10-14] MEDS: SCOPOLAMINE 1 MG/72 HR TDSY PATCH TD SCH (07:27)
[2023-10-14] MEDS: SCOPOLAMINE 1 MG/72 HR TDSY PATCH TD ONE (07:28)
--- NOTE | 2023-10-14 07:36 | History & Physical Bridge Note ---
Date of Service October 14, 2023 History & Physical Bridge Note I have examined the patient, reviewed the History & Physical and in the interval since the performance of the History & Physical I have noted the following changes of clinical significance: no changes noted
--- NOTE | 2023-10-14 07:37 | History & Physical Report ---
Date of Service October 14, 2023 Assessment & Plan (1) Myelopathy concurrent with and due to spinal stenosis of cervical region: Plan: C5-C7 anterior cervical discectomy and fusion possible C4-C5 with C6 corpectomy History of Present Illness Chief Complaint: Neck and arm pain Primary Care Provider: Landon Quiles DO This is a 67-year-old female who presents with worsening neck and arm symptoms after failing course of nonoperative care is here for surgical intervention. Allergies Allergy/AdvReac Type Severity Reaction Status Date / Time allopurinol Allergy Intermediate Unknown Verified 10/14/23 06:46 amitriptyline Allergy Intermediate Arms, leg Verified 10/14/23 06:46 swelling codeine Allergy Intermediate Pruritus, Verified 10/14/23 06:46 rash doxepin Allergy Intermediate Arms, leg Verified 10/14/23 06:46 swelling gabapentin Allergy Intermediate Arms, leg Verified 10/14/23 06:46 swelling sitagliptin Allergy Intermediate Arms, leg Verified 10/14/23 06:46 swelling mineral oil [From Vagisil] Allergy Mild Rash Verified 10/14/23 06:46 nickel Allergy Mild Rash Verified 10/14/23 06:46 potassium chloride Allergy Mild Pruritus, Verified 10/14/23 06:46 [From Klor-Con] rash resorcinol [From Vagisil] Allergy Mild Rash Verified 10/14/23 06:46 starch [From Vagisil] Allergy Mild Rash Verified 10/14/23 06:46 clindamycin Allergy Unknown Verified 10/14/23 07:14 fluticasone furoate Allergy Swelling Verified 10/14/23 06:46 [From Breo Ellipta] of Lip/Tongue/Throat vilanterol Allergy Swelling Verified 10/14/23 06:46 [From Breo Ellipta] of Lip/Tongue/Throat adhesive AdvReac Intermediate Rash, Verified 10/14/23 06:46 itching (tape) erythromycin base AdvReac Intermediate Severe Verified 10/14/23 06:46 stomach cramps Tricyclic Antidepressants Allergy Intermediate Arms, leg Uncoded 10/14/23 06:46 swelling Home Medications Medication Instructions Recorded Confirmed Type aspirin 81 mg tablet,delayed 81 mg PO QAM 11/09/17 10/14/23 History release atorvastatin 20 mg tablet 20 mg PO QAM 11/09/17 10/14/23 History metoprolol tartrate 25 mg tablet 12.5 mg PO BIDM 11/09/17 10/14/23 History potassium citrate 10 mEq (1,080 See Rx Instructions .Route .COMPLEX 11/09/17 10/14/23 History mg) tablet,extended release warfarin 5 mg tablet 5 mg PO 2XWK 11/09/17 10/14/23 History magnesium chloride 64 mg 128 - 192 mg PO TID 01/08/19 10/14/23 History (magnesium chloride) tablet,delayed release lansoprazole 30 mg capsule,delayed 30 mg PO QAM 02/13/19 10/14/23 History release medroxyprogesterone 10 mg tablet 10 mg PO QAM 02/13/19 10/14/23 History (Provera) ropinirole 0.5 mg tablet 0.5 mg PO HS PRN Restless Leg(S) 02/13/19 10/14/23 History empagliflozin 10 mg tablet 10 mg PO QAM 08/27/20 10/14/23 History (Jardiance) escitalopram oxalate 20 mg tablet 20 mg PO QAM 08/27/20 10/14/23 History ferrous sulfate 325 mg (65 mg 325 mg PO QPM 08/27/20 10/14/23 History iron) tablet furosemide 20 mg tablet 20 mg PO QAM PRN Edema 08/27/20 10/14/23 History leucovorin calcium 5 mg tablet 5 mg PO WK 08/27/20 10/14/23 History methotrexate sodium 25 mg/mL 25 mg subcut UD 08/27/20 10/14/23 History injection solution verapamil 120 mg tablet,extended 120 mg PO TID 08/27/20 10/14/23 History release warfarin 5 mg tablet 7.5 mg PO 5XWK 08/27/20 10/14/23 History acetaminophen 650 mg 1,300 mg PO UD PRN Pain 01/24/21 10/14/23 History tablet,extended release metformin 500 mg tablet,extended 2,000 mg PO HS 01/24/21 10/14/23 History release 24 hr montelukast 10 mg tablet 10 mg PO HS 01/24/21 10/14/23 History hesxjtxonwga-eeseerhs-wjdklm 1 tab PO QAM 01/24/21 10/14/23 History tablet (Multivitamin 50 Plus tablet) vitamin B complex 1 tab PO QAM 01/24/21 10/14/23 History ondansetron 4 mg disintegrating 4 mg PO Q8H PRN nausea and 02/09/21 10/14/23 Rx tablet vomiting #7 tabs albuterol sulfate 90 mcg/actuation 2 puff inhalation Q4H PRN Wheezing 07/10/21 10/14/23 History aerosol inhaler (Ventolin HFA) biotin 10 mg tablet 10 mg PO QAM 07/10/21 10/14/23 History cyclosporine 0.05 % eye drops in a 1 drp ophthalmic (eye) Q12H 07/10/21 10/14/23 History dropperette (Restasis) oxycodone 5 mg tablet 5 mg PO BID PRN Pain 07/10/21 10/14/23 History semaglutide 1 mg/dose (4 mg/3 mL) 1 mg subcut WK 07/10/21 10/14/23 History subcutaneous pen injector (Ozempic) vibegron 75 mg tablet (Gemtesa) 75 mg PO QAM 07/10/21 10/14/23 History bupropion HCl 150 mg 24 hr tablet, 150 mg PO QAM 09/28/23 10/14/23 History extended release insulin glargine 100 unit/mL (3 10 unit subcut HS 09/28/23 10/14/23 History mL) subcutaneous pen (Basaglar KwikPen U-100 Insulin) enoxaparin 120 mg/0.8 mL 120 mg subcut Q12H 10/14/23 10/14/23 History subcutaneous syringe (Lovenox) Past Med/Surg History Problem List (Updated 10/14/23 @ 07:37 by Tera Wilkinson DO) Myelopathy 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 follows with Dr. Shaw Medical History Anemia Anxiety and depression Asthma Atrial tachycardia Follows with Dr. Shaw Breast cancer Invasive adenocarcinoma Dx 2010 - B/L mastectomy + chemo + radiation Chronic kidney disease (CKD) Stage 3 Follows with [facility] nephrology Degenerative disc disease Diabetes mellitus, type 2 Fibromyalgia Gastroparesis GERD (gastroesophageal reflux disease) History of kidney stones Hx of deep venous thrombosis Age mid-30s after fall/trauma Hyperlipidemia Hypertension Limb alert care status LUE restriction Morbid obesity with BMI of 40.0-44.9, adult Neuropathy Severe legs/feet Uses assistive devices including mobilized wheelchair Osteoarthritis Overactive bladder Peripheral neuropathy Post traumatic stress disorder Pulmonary embolism Several years ago Raynauds phenomenon Restless legs syndrome Rheumatoid arthritis with inflammatory polyarthropathy Sleep apnea CPAP (compliant) Uterine hyperplasia Currently on hormone therapy Surgical History H/O bilateral salpingo-oophorectomy H/O breast reconstruction Implants failed due to infections > subsequent removal History of bilateral mastectomy LUE restriction History of breast biopsy History of carpal tunnel release R/L History of cataract surgery R/L History of cholecystectomy History of colonoscopy 05/20/23, MAC at [facility] History of cystoscopy Cysto, laser litho (02/19/2021): LMA#4 (iGel) at [facility] History of D&C History of esophagogastroduodenoscopy (EGD) History of exploratory laparotomy History of gynecological procedure D&C, Mirena insertion (11/24/18): Grade 2 view, Glidescope#3, ETT 7.0, atraumatic elective glidescope intubation x2, 2nd attempt successful History of herniorrhaphy Umbilical with mesh History of lithotripsy History of tooth extraction History of vascular access device Mediport power port (Right chest) Hx of foot surgery left Nausea and vomiting after administration of anesthetic agent Family History Brother Family history of diabetes mellitus Father Family history of diabetes mellitus Mother Family history of diabetes mellitus Other No family history of adverse response to anesthesia Social History Smoking Status: Former smoker Tobacco Type: Cigarettes Cigarettes Per Day: Quit 1984; Second Hand Exposure: Yes (hx); Do You Dip or Chew Tobacco: No; Hx Alcohol Use: No Hx Substance Use: No Preferred Language: Czech Communication Ability: Effective Pipe Setter Required: No Beliefs That Will Affect Care: None Current Living Situation: Spouse Current Living Situation Comment: raised ranch home, stair lift , ramp in place Feels Safe at Home: Yes Safety Concerns: Feels Safe At This Time Assistive Devices: Cane, CPAP, Hearing Aid - Bilateral, Scooter/Electric Scooter, Walker and Wheelchair Physical Exam Physical Exam: Patient is alert and oriented Heart regular in rhythm Lungs clear Results & Data Results & Data Vital Signs (Past 12 Hours) Vital Signs Temp Pulse Resp BP Pulse Ox O2 Del Method 10/14/23 07:00 Room Air 10/14/23 06:59 36.8 C 95 H 20 141/77 H 95 Room Air
[2023-10-14] MEDS: ceFAZolin 3000MG 3,000 MG/72.5 ML BAG IV SCH (07:49)
[2023-10-14] MEDS ORDERED: DROPERIDOL 5 MG/2 ML VIAL ONE (08:06)
[2023-10-14] MEDS: FLOSEAL HEMOSTATIC MATRIX 10ML TOP ONE ×2 (08:38→10:31)
[2023-10-14] MEDS: ceFAZolin 330 MG/ML 1 GM VIAL ONE (08:38)
[2023-10-14] MEDS ORDERED: LARYING-O-JET KIT (LTA) ONE (09:08)
[2023-10-14] MEDS ORDERED: SUCCINYLCHOLINE CHLORIDE 20 MG/ML 10 ML VIAL IV ONE (09:08)
[2023-10-14] MEDS ORDERED: PHENYLEPHRINE 100MCG/ML 10ML SYR IV ONE (09:08)
[2023-10-14] MEDS ORDERED: ROCURONIUM BROMIDE 10 MG/ML 5 ML VIAL IV ONE (09:08)
[2023-10-14] MEDS ORDERED: PHENYLEPHRINE HCL 10 MG/ML VIAL ONE (09:08)
[2023-10-14] MEDS ORDERED: SUGAMMADEX SODIUM 200 MG/2 ML VIAL IV ONE (09:17)
[2023-10-14] MEDS ORDERED: PROPOFOL IV EMULSION 10 MG/ML 100 ML VIAL IV ONE (09:28)
--- NOTE | 2023-10-14 10:34 | Operative Report ---
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 #2 anterior cervical corpectomy C6 with bilateral foraminotomies. #3 anterior cervical arthrodesis C4-C5 and C5-C7. #4 placement of Spira 8 mm cage at C for C5 and 26 mm cage at C5-C7. #5 placement of globus plate and screws from C4-C7. #6 placement locally harvested morselized autograft combined with os design bone graft in the interbody cages. Surgeon Tera Wilkinson, DO Hand Hose Cutter Chandrakant Guerrero Estimated Blood Loss 100 Findings See Below The patient is 5 foot 4 weighing over 124 kg with a BMI in excess of 47. Patient body habitus created significant technical difficulty with positioning exposure and the procedure itself. This at least 50% increased operative time. I am recommending a modifier 22 Specimens None Indications This is a 67-year-old female presents problems diagnosis of failed course of nonoperative care she is here for surgical invention. Description of Procedure Patient was met with identified informed consent obtained. Patient was then taken to the operative suite underwent ablation placed in a supine position on the Tone table with a head Barker baker head. All bony promises well- padded eyes inspected to ensure no external precipice spinal. This point the anterior cervical spine was prepped and draped no sterile fashion. The assistance of fluoroscopy identified the C6 vertebral body and a transverse incision was placed along the right anterior aspect of the cervical spine overlying this region. Blunt dissection with assistance of bipolar electrocautery was formed down to expose the anterior cervical spine from C4-C7. Self-retaining retractors placed. Informed complete discectomy of C5-C6 out to the uncovertebral notch bilaterally. This was followed by a discectomy at C6-C7 out to the uncovertebral joints bilaterally. Caputa distraction pins were utilized to assist in visualization. Then performed complete corpectomy of C6 including complete removal of all posterior annular fibers longitudinal ligament bilateral foraminotomies performed. Endplates burred to subcortical bleeding bone and a 26 mm Spira cage filled with locally harvested morselized autograft and os design bone graft tapped in position. Distracting pins were removed and I proceeded to C4-C5 again. Again complete discectomy C4-C5 was performed up to the uncovertebral was bilaterally. Caputa distracting pins utilized for visualization. Performed bilateral foraminotomies. Endplates burred to subcortical bleeding bone and an 8 mm spiral cage filled locally harvested morselized autograft and os design bone graft apposition. Distracting and pressors removed. All anterior osteophytes. To smooth cortical surface and a globus plate and screws applied with the assistance of fluoroscopy. Incision was then copiously irrigated explored to ensure no damage to surrounding structures remaining bleeding. 10 round YESI drain inserted. Incision was then closed with 2 Vicryl in the fascia and 4 Monocryl for final closure. Steri- Strips sterile dressing placed. Patient waken taken the PACU stable condition. Please note spinal cord monitoring was utilized at the procedure no changes noted. Lastly Chandrakant Geurrero was present out the entire surgery involved in patient positioning complex portions of the surgery and final skin closure. Im ordering 10 grams of Triple [place] Collagen Powder ([employer] [id number]) to treat an incision wound that was caused by a spine procedure. The incision is approximately 2 cm(W) x 4 cm(L) into the joint (D) in size and is a full thickness wound. Triple [place] collagen comes in 1 gram packets so 10 packets were ordered. Given the size of the wound, with light to moderate exudate I chose to order a 10 day supply. The patient will be provided instructions for proper application of the collagen wound kit. The patient will be asked to apply the collagen powder daily and then cover it with sterile dressings dispensed. Collagen was selected as I expect the collagen to attract monocytes and fibroblasts, act as a sacrificial substrate for MMPs, and ultimately proved a matrix for tissue and vessel growth. The collagen will act as a primary dressing in this scenario. It is medically necessary for proper healing of these wounds to improve bioavailability and contact with each wound surface, this is also to help prevent infection of wounds and promote healing ultimately leading to a better healing outcome and limit the risk of infection. I attest to the content of the Intraoperative Record and any orders documented therein. Any exceptions are noted below.
[2023-10-14] MEDS: INSULIN ASPART PER UNIT CHARGE SC STA (11:16)
[2023-10-14] MEDS: HYDROmorphone INJ 2 MG/ML SYR/VIAL IV PRN (11:22)
--- NOTE | 2023-10-14 11:51 | Fluoroscopy Report ---
FL cervical 2-3V CLINICAL HISTORY: C5-C7 ACDF C4-C5 WITH C6 CORPECTOMY COMPARISON STUDY: Cervical spine CT August 27, 2023. FLUOROSCOPY TIME: 20 seconds. EXPOSURE DOSE: 3.48 mGy FLUOROSCOPIC IMAGES: 2 FINDINGS: Fluoroscopy was provided during C6 corpectomy and C4-C7 anterior discectomy and fusion. Martin messi is intact. Linear radiodensity within the operative bed on the initial image is not present on the subsequent image. Endotracheal tube is partially imaged. Surgical drain is in place. IMPRESSION: Fluoroscopy provided during C6 corpectomy and anterior discectomy and fusion from C4 thr ough C7. ACT 112: Negative or not required by law. Electronically signed by: Warren Gomez M.D. 10/14/2023 11:50 AM
[2023-10-14] MEDS ORDERED: ALBUTEROL HFA 8 GM INHALER INH PRN (12:35)
[2023-10-14] MEDS ORDERED: FAMOTIDINE 20 MG TAB PO PRN (12:35)
[2023-10-14] MEDS ORDERED: METOCLOPRAMIDE HCL INJ 5 MG/ML 2 ML VIAL IV PRN (12:35)
[2023-10-14] MEDS ORDERED: bisacodyL 10 MG SUPP PR PRN (12:35)
[2023-10-14] MEDS ORDERED: HYDROmorphone INJ 0.5 MG/0.5 ML SYR IV PRN (12:35)
[2023-10-14] MEDS ORDERED: RACEPINEPHRINE 2.25% NEBU SOLN 0.5 ML VIAL INH PRN (12:35)
[2023-10-14] MEDS ORDERED: HYDROmorphone INJ 1 MG/ML SYRINGE IV PRN (12:35)
[2023-10-14] MEDS ORDERED: ONDANSETRON 4 MG OD TAB PO PRN ×2 (12:35)
[2023-10-14] MEDS ORDERED: FUROSEMIDE 20 MG TAB PO PRN (12:35)
[2023-10-14] MEDS ORDERED: LORazepam 0.5 MG TAB PO PRN (12:35)
[2023-10-14] MEDS ORDERED: ONDANSETRON INJ 2 MG/ML 2 ML VIAL IV PRN (12:35)
[2023-10-14] MEDS ORDERED: ACETAMINOPHEN 1,000 MG/100 ML VIAL IV PRN (12:35)
[2023-10-14] MEDS ORDERED: SOD PHOSPHATE/SOD BIPHOSPHATE ENEMA 132 ML BTL PR PRN (12:35)
[2023-10-14] MEDS ORDERED: LORazepam 0.5 MG in SYRINGE 0.25 ML IV PRN (12:35)
[2023-10-14] MEDS ORDERED: diphenhydrAMINE Capsule 25 MG CAP PO PRN (12:35)
[2023-10-14] MEDS ORDERED: PROMETHAZINE 12.5 MG/50.5 ML BAG IV PRN (12:35)
[2023-10-14] MEDS ORDERED: NALOXONE HCL 0.4 MG/1 ML VIAL/CARP IV PRN (12:35)
[2023-10-14] MEDS ORDERED: metHOTREXate sodium 50 MG/2 ML MDV VIAL SQ SCH (12:35)
[2023-10-14] MEDS ORDERED: dexAMETHasone 8 MG in SYRINGE 0 ML IV PRN (12:35)
[2023-10-14] MEDS ORDERED: DO NOT ADMINISTER FLU VACCINE PRN (12:35)
[2023-10-14] MEDS ORDERED: PHARMACY GLYCEMIC MGMT CONSULT PRN (12:35)
[2023-10-14] MEDS ORDERED: DO NOT ADMINISTER PNEUMOCOCCAL VACCINE PRN (12:35)
[2023-10-14] MEDS ORDERED: ALUMINUM/MAGNESIUM SUSP 30 ML UDC PO PRN (12:35)
[2023-10-14] MEDS ORDERED: hydrOXYzine HCl 25 MG TAB PO PRN (12:35)
[2023-10-14] MEDS: INSULIN ASPART PER UNIT CHARGE ONE (13:05)
[2023-10-14] MEDS: CHECK SCOPOLAMINE PATCH PLACEMENT SCH (13:05)
[2023-10-14] MEDS ORDERED: ARTIFICIAL TEARS OP PRN (13:31)
--- NOTE | 2023-10-14 13:51 | Hospitalist Consultation ---
Date of Consultation October 14, 2023 Assessment & Plan (1) Myelopathy concurrent with and due to spinal stenosis of cervical region: POD#0 C5-C7 A[address] Dr[address] Wilkinson Activity and wound care orders as per ortho Pain control with bowel regimen PT/OT Monitor H/H for acute blood loss anemia and transfuse blood products PRN EBL 100 Cc Mild left hand grasp weakness noted, Dr. Wilkinson notified (2) Deep vein thrombosis: (3) Pulmonary embolism: History of Resumption of anticoagulation discussed with Dr. Wilkinson, states he will reevaluate tomorrow Patient follows with [facility] anticoagulation clinic, bridging instructions: 10/13-Coumadin 10 mg 10/15-Lovenox 120 mg every 12 hours, Coumadin 10 mg 10/16-Lovenox 120 mg every 12 hours, restart regular dose of Coumadin: 5 mg every Tuesday, 7.5 mg all other days (4) Diabetes mellitus, type 2: Hold home metformin, Jardiance, Ozempic Glycemic pharmacy consulted by spine Ortho HgbA1c 6.5 09/2023 (5) PSVT (paroxysmal supraventricular tachycardia): Rate controlled on verapamil and metoprolol (6) Asthma: Appears stable, no signs of acute exacerbation Continue home inhaler (7) Seronegative polyarthritis: managed with weekly methotrexate (8) Sleep apnea: CPAP as per home settings (9) GERD (gastroesophageal reflux disease): Continue PPI and H2 tracie DVT PROPHYLAXIS TEDs/SCDs as per spine Ortho Patient seen in collaboration with Dr. Burroughs. Thank you for this consultation. We will follow the patient with you during their hospital stay. You can reach a member of the [facility] via the [facility] role in [employer]. Supervising Physician Co-Signing Physician Notes Attending Addendum: Case reviewed with the advanced practitioner. I have personally performed a history and physical examination on the patient. I have reviewed the advanced practitioner's documentation on the date of service referenced in note, and I agree with, and take responsibility for the plan of care. please refer to her notes for full details patient seen and examined, records reviewed by myself as well on exam, patient seen resting in bed, sitting up on 2 L o2, comfortable states she has some pain over the incision site, well controlled no chest pain, dyspnea, palpitations, dizziness no other symptoms VS noted and reviewed oriented x 3 , not in distress, speaks in sentences with no effort nor accessory muscle use neck: dressing and drain in place, no active bleeding normal rate, regular rhythm, no murmurs clear breath sounds bilaterally non distended, soft, nontender no bipedal edema, erythema, warmth no neuro deficits all labs, imaging noted and reviewed ASSESSMENT AND PLAN s/p Cervical Spine Surgery - stable overall monitor BP, BSGs, labs tomorrow History of DVT - [facility] Coumadin [facility] recommends Lovenox bridge start protocol prepared by [facility] Coumadin [facility] tomorrow if Dr. Wilkinson ok from hemostasis standpoint other diagnoses and plan of care as per advanced practitioner's notes Raúl Burroughs MD History of Present Illness Reason for Consultation: postop medical management Requesting Physician: Dr. Wilkinson Attending Physician: Tera Wilkinson, DO History of Present Illness 67-year-old female with PMH DM type II, dyslipidemia, LORE on CPAP, asthma, chronic HFpEF, paroxysmal atrial tachycardia, HTN, GERD, gastroparesis, fibrom yalgia, RLS, seronegative arthritis, history of breast cancer, history of pulmonary embolism and DVT anticoagulated on Coumadin, and other problems listed below who is s/p C5-C7 ACDF today by Dr. Wilkinson. Postoperative, the patient is doing well. She reports her pain is well-controlled. She reports some mild weakness in her left hand. Reports that she continues to have tingling in both hands that was present prior to surgery. No chest pain or shortness of breath. Denies abdominal pain and nausea. Patient states she has not voided since surgery. Allergies Allergy/AdvReac Type Severity Reaction Status Date / Time allopurinol Allergy Intermediate Unknown Verified 10/14/23 06:46 amitriptyline Allergy Intermediate Arms, leg Verified 10/14/23 06:46 swelling codeine Allergy Intermediate Pruritus, Verified 10/14/23 06:46 rash doxepin Allergy Intermediate Arms, leg Verified 10/14/23 06:46 swelling gabapentin Allergy Intermediate Arms, leg Verified 10/14/23 06:46 swelling sitagliptin Allergy Intermediate Arms, leg Verified 10/14/23 06:46 swelling mineral oil [From Vagisil] Allergy Mild Rash Verified 10/14/23 06:46 nickel Allergy Mild Rash Verified 10/14/23 06:46 potassium chloride Allergy Mild Pruritus, Verified 10/14/23 06:46 [From Klor-Con] rash resorcinol [From Vagisil] Allergy Mild Rash Verified 10/14/23 06:46 starch [From Vagisil] Allergy Mild Rash Verified 10/14/23 06:46 clindamycin Allergy Unknown Verified 10/14/23 07:14 fluticasone furoate Allergy Swelling Verified 10/14/23 06:46 [From Breo Ellipta] of Lip/Tongue/Throat vilanterol Allergy Swelling Verified 10/14/23 06:46 [From Breo Ellipta] of Lip/Tongue/Throat adhesive AdvReac Intermediate Rash, Verified 10/14/23 06:46 itching (tape) erythromycin base AdvReac Intermediate Severe Verified 10/14/23 06:46 stomach cramps Tricyclic Antidepressants Allergy Intermediate Arms, leg Uncoded 10/14/23 06:46 swelling Home Medications Medication Instructions Recorded Confirmed Type aspirin 81 mg tablet,delayed 81 mg PO QAM 11/09/17 10/14/23 History release atorvastatin 20 mg tablet 20 mg PO QAM 11/09/17 10/14/23 History metoprolol tartrate 25 mg tablet 12.5 mg PO BIDM 11/09/17 10/14/23 History potassium citrate 10 mEq (1,080 See Rx Instructions .Route .COMPLEX 11/09/17 10/14/23 History mg) tablet,extended release warfarin 5 mg tablet 5 mg PO 2XWK 11/09/17 10/14/23 History magnesium chloride 64 mg 128 - 192 mg PO TID 01/08/19 10/14/23 History (magnesium chloride) tablet,delayed release medroxyprogesterone 10 mg tablet 10 mg PO QAM 02/13/19 10/14/23 History (Provera) ropinirole 0.5 mg tablet 0.5 mg PO HS PRN Restless Leg(S) 02/13/19 10/14/23 History escitalopram oxalate 20 mg tablet 20 mg PO QAM 08/27/20 10/14/23 History ferrous sulfate 325 mg (65 mg 325 mg PO QPM 08/27/20 10/14/23 History iron) tablet furosemide 20 mg tablet 20 mg PO QAM PRN Edema 08/27/20 10/14/23 History leucovorin calcium 5 mg tablet 5 mg PO WK 08/27/20 10/14/23 History methotrexate sodium 25 mg/mL 25 mg subcut UD 08/27/20 10/14/23 History injection solution verapamil 120 mg tablet,extended 120 mg PO TID 08/27/20 10/14/23 History release warfarin 5 mg tablet 7.5 mg PO 5XWK 08/27/20 10/14/23 History acetaminophen 650 mg 1,300 mg PO UD PRN Pain 01/24/21 10/14/23 History tablet,extended release metformin 500 mg tablet,extended 2,000 mg PO HS 01/24/21 10/14/23 History release 24 hr montelukast 10 mg tablet 10 mg PO HS 01/24/21 10/14/23 History lktayjvyhwgf-mykiterw-awfzen 1 tab PO QAM 01/24/21 10/14/23 History tablet (Multivitamin 50 Plus tablet) vitamin B complex 1 tab PO QAM 01/24/21 10/14/23 History ondansetron 4 mg disintegrating 4 mg PO Q8H PRN nausea and 02/09/21 10/14/23 Rx tablet vomiting #7 tabs albuterol sulfate 90 mcg/actuation 2 puff inhalation Q4H PRN Wheezing 07/10/21 10/14/23 History aerosol inhaler (Ventolin HFA) biotin 10 mg tablet 10 mg PO QAM 07/10/21 10/14/23 History cyclosporine 0.05 % eye drops in a 1 drp ophthalmic (eye) Q12H 07/10/21 10/14/23 History dropperette (Restasis) oxycodone 5 mg tablet 5 mg PO BID PRN Pain 07/10/21 10/14/23 History semaglutide 1 mg/dose (4 mg/3 mL) 1 mg subcut WK 07/10/21 10/14/23 History subcutaneous pen injector (Ozempic) vibegron 75 mg tablet (Gemtesa) 75 mg PO QAM 07/10/21 10/14/23 History bupropion HCl 150 mg 24 hr tablet, 150 mg PO QAM 09/28/23 10/14/23 History extended release insulin glargine 100 unit/mL (3 10 unit subcut HS 09/28/23 10/14/23 History mL) subcutaneous pen (Basaglar SandyPen U-100 Insulin) empagliflozin 25 mg tablet 25 mg PO DAILY 10/14/23 10/14/23 History (Jardiance) enoxaparin 120 mg/0.8 mL 120 mg subcut Q12H 10/14/23 10/14/23 History subcutaneous syringe (Lovenox) famotidine 40 mg tablet 40 mg PO HS 10/14/23 10/14/23 History fluticasone propionate 230 2 inh inhalation BID 10/14/23 10/14/23 History mcg-salmeterol 21 mcg/actuation HFA inhaler (Advair HFA) lansoprazole 15 mg capsule,delayed 15 mg PO DAILY 10/14/23 10/14/23 History release oxycodone 5 mg tablet 5 mg PO Q6H PRN pain #30 tabs 10/14/23 Rx tramadol 50 mg tablet 50 mg PO Q6H PRN pain, moderate 10/14/23 Rx #30 tabs Patient History Medical History (Updated 10/14/23 @ 13:49 by ANDREW Moss) Seronegative polyarthritis Rheumatoid arthritis with inflammatory polyarthropathy Osteoarthritis Overactive bladder GERD (gastroesophageal reflux disease) Diabetes mellitus, type 2 Anemia Anxiety and depression Post traumatic stress disorder Peripheral neuropathy Pulmonary embolism Several years ago Hx of deep venous thrombosis Age mid-30s after fall/trauma Atrial tachycardia Follows with Dr. Shaw Sleep apnea CPAP (compliant) Asthma Uterine hyperplasia Currently on hormone therapy Morbid obesity with BMI of 40.0-44.9, adult Limb alert care status LUE restriction Gastroparesis Raynauds phenomenon History of kidney stones Degenerative disc disease Chronic kidney disease (CKD) Stage 3 Follows with [facility] nephrology Neuropathy Severe legs/feet Uses assistive devices including mobilized wheelchair Fibromyalgia Hyperlipidemia Hypertension Breast cancer Invasive adenocarcinoma Dx 2011 - B/L mastectomy + chemo + radiation Restless legs syndrome Surgical History History of tooth extraction History of cataract surgery R/L Nausea and vomiting after administration of anesthetic agent History of cystoscopy Cysto, laser litho (02/19/2021): LMA#4 (iGel) at [facility] History of lithotripsy History of colonoscopy 05/20/23, MAC at [facility] History of esophagogastroduodenoscopy (EGD) History of gynecological procedure D&C, Mirena insertion (11/24/18): Grade 2 view, Glidescope#3, ETT 7.0, atraumatic elective glidescope intubation x2, 2nd attempt successful History of breast biopsy History of D&C H/O bilateral salpingo-oophorectomy H/O breast reconstruction Implants failed due to infections > subsequent removal History of carpal tunnel release R/L History of exploratory laparotomy Hx of foot surgery left History of herniorrhaphy Umbilical with mesh History of cholecystectomy History of vascular access device Mediport power port (Right chest) History of bilateral mastectomy LUE restriction Family History Brother Family history of diabetes mellitus Father Family history of diabetes mellitus Mother Family history of diabetes mellitus Other No family history of adverse response to anesthesia Social History Smoking Status: Former smoker Tobacco Type: Cigarettes Cigarettes Per Day: Quit 1984; Second Hand Exposure: Yes (hx); Do You Dip or Chew Tobacco: No; Hx Alcohol Use: No Hx Substance Use: No Preferred Language: Andorran Communication Ability: Effective Cso Required: No Beliefs That Will Affect Care: None Current Living Situation: Spouse Current Living Situation Comment: raised ranch home, stair lift , ramp in place Feels Safe at Home: Yes Safety Concerns: Feels Safe At This Time Assistive Devices: Cane, CPAP, Hearing Aid - Bilateral, Scooter/Electric Scooter, Walker and Wheelchair Review of Systems Review of Systems: ROS per HPI, all other systems reviewed and negative Physical Exam Constitutional: WD/WN, vitals as above + obese; no acute distress Eyes: PERRL, conjunctivae normal, anicteric sclerae Neck: s/p neck surgery, anterior dressing CDI, drain in place draining bloody drainage Respiratory: normal respiratory effort, lungs clear to auscultation Cardiovascular: Rate/Rhythm: regular rate and regular rhythm Vessels: normal peripheral pulses Extremities: + edema (trace edema BLE) Gastrointestinal (Abdomen): normal bowel sounds, soft, nontender, no hepatosplenomegaly Musculoskeletal: s/p neck surgery, mild left hand grasp weakness noted Skin: no rashes, warm and dry Neurologic: PERRL, EOMI, accommodation nl, no face palsy, no dysarthria Psychiatric: A+Ox3, euthymic affect Results & Data Results & Data Vital Signs (Past 12 Hours) Vital Signs Temp Pulse Pulse Resp BP Pulse Ox Pulse Ox 10/14/23 13:27 100 H 16 127/75 96 10/14/23 13:02 95 10/14/23 12:51 100 H 16 148/81 H 95 10/14/23 12:35 18 98 10/14/23 12:20 10/14/23 12:20 36.9 C 98 H 18 148/81 H 94 10/14/23 12:00 37.2 C 93 H 15 139/82 94 10/14/23 11:50 92 H 16 140/83 94 10/14/23 11:40 90 18 150/78 H 96 10/14/23 11:30 88 16 147/83 H 95 10/14/23 11:20 91 H 14 151/90 H 99 10/14/23 11:10 94 H 17 137/90 98 10/14/23 11:00 90 15 140/84 97 10/14/23 10:50 36.1 C L 86 16 135/80 94 10/14/23 07:00 10/14/23 06:59 36.8 C 95 H 20 141/77 H 95 O2 Del Method O2 Del Method O2 Flow Rate O2 Flow Rate 10/14/23 13:27 Nasal Cannula 2 10/14/23 13:02 Nasal Cannula 2 10/14/23 12:51 Nasal Cannula 2 10/14/23 12:35 Nasal Cannula 2 10/14/23 12:20 Nasal Cannula 2 10/14/23 12:20 Nasal Cannula 2 10/14/23 12:00 Nasal Cannula 2 10/14/23 11:50 Nasal Cannula 2 10/14/23 11:40 Oxymask 7 10/14/23 11:30 Oxymask 7 10/14/23 11:20 Oxymask 7 10/14/23 11:10 Oxymask 7 10/14/23 11:00 Oxymask 10 10/14/23 10:50 Oxymask 10 10/14/23 07:00 Room Air 10/14/23 06:59 Room Air
[2023-10-14] MEDS: ACETAMINOPHEN 500 MG TAB PO PRN (14:18)
[2023-10-14] MEDS: VERAPAMIL HCL 120 MG TABCR PO SCH (14:18)
[2023-10-14] MEDS: LANTUS PER UNIT CHARGE SC ONE (14:19)
[2023-10-14] MEDS: SODIUM CHLORIDE 0.9% 1,000 ML IV SCH (14:19)
[2023-10-14] MEDS: dexAMETHasone 6 MG in SYRINGE 0 ML IV SCH (14:32)
--- NOTE | 2023-10-14 14:42 | Pharmacy Report ---
Pharmacy Glycemic Short Note 2 - Date of Service October 14, 2023 - Glycemic Short BSG Results (Last 24 hours): 10/14/23 10/14/23 10/14/23 06:49 11:01 11:57 POC Glucose 200 H 263 H 238 H 10/14/23 13:24 POC Glucose 232 H OUTPATIENT ANTIDIABETIC REGIMEN: * Basaglar 10 units SQ HS * Jardiance 10mg daily * metformin 2000mg QAM * Ozempic 1mg Qwk * HbA1c 7.2% (10/05/23) ASSESSMENT: * Barbie is a 67 YOF status post C5-C7 anterior cervical discectomy and fusion with a history of Type 2 diabetes mellitus. Pharmacy has been consulted to assist with glycemic management while inpatient. * Preoperative BSG above goal range, will give approximately 0.4 units/kg adjusted body weight now x1 to cover preoperative dexamethasone 8mg IV * Ongoing dexamethasone 6mg IV x3 ordered, will add basal insulin twice daily at a weight based stress of 2 or 3 based on BSG (hold if below goal range) * Novolog initiated at a weight based stress of 3, overnight checks added to prevent significant steroid induced hyperglycemia. PLAN FOR INPATIENT GLYCEMIC CONTROL: * Hold outpatient oral diabetes medications * Basal insulin * Lantus 30 units SQ x1 * Lantus 0-30 units SQ BID (see eMAR for additional details) * Bolus insulin * NovoLog per scale ACHS or Q6hrs while NPO * Goal Range: Low 110 mg/dL - High 140 mg/dL * Correction Factor: 15 mg/dL/unit * Nutritional / Prandial insulin per carb ratio of 1 unit per 5 grams CHO consumed
--- NOTE | 2023-10-14 14:54 | Anesthesiology Progress Note ---
Date of Service October 14, 2023 Anesthesia Post Procedure Vital Signs Vital Signs: Temp Pulse Pulse Resp BP Pulse Ox Pulse Ox 10/14/23 14:24 100 H 18 98/65 L 93 10/14/23 13:27 100 H 16 127/75 96 10/14/23 13:02 95 10/14/23 12:51 100 H 16 148/81 H 95 10/14/23 12:35 18 98 10/14/23 12:20 10/14/23 12:20 36.9 C 98 H 18 148/81 H 94 10/14/23 12:00 37.2 C 93 H 15 139/82 94 10/14/23 11:50 92 H 16 140/83 94 10/14/23 11:40 90 18 150/78 H 96 10/14/23 11:30 88 16 147/83 H 95 10/14/23 11:20 91 H 14 151/90 H 99 10/14/23 11:10 94 H 17 137/90 98 10/14/23 11:00 90 15 140/84 97 10/14/23 10:50 36.1 C L 86 16 135/80 94 10/14/23 07:00 10/14/23 06:59 36.8 C 95 H 20 141/77 H 95 O2 Del Method O2 Del Method O2 Flow Rate O2 Flow Rate 10/14/23 14:24 CPAP 10/14/23 13:27 Nasal Cannula 2 10/14/23 13:02 Nasal Cannula 2 10/14/23 12:51 Nasal Cannula 2 10/14/23 12:35 Nasal Cannula 2 10/14/23 12:20 Nasal Cannula 2 10/14/23 12:20 Nasal Cannula 2 10/14/23 12:00 Nasal Cannula 2 10/14/23 11:50 Nasal Cannula 2 10/14/23 11:40 Oxymask 7 10/14/23 11:30 Oxymask 7 10/14/23 11:20 Oxymask 7 10/14/23 11:10 Oxymask 7 10/14/23 11:00 Oxymask 10 10/14/23 10:50 Oxymask 10 10/14/23 07:00 Room Air 10/14/23 06:59 Room Air Pain Intensity Back: Pain Intensity: 6 Transfer of Care Handoff Completed per policy Notes Mental Status: alert / awake / arousable and participated in evaluation Nausea / Vomiting: adequately controlled Pain: adequately controlled Airway Patency, RR, SpO2: stable & adequate BP & HR: stable & adequate Hydration State: stable & adequate Anesthetic Complications: no major complications apparent and Pt Satisfied with anesthetic care
--- OUTSIDE RECORDS SUMMARY | 2023-10-14 15:21 | External Medical Summary | Summary of Care ---
Author Name Unknown Organization [facility] Address [address] [place] [address] Phone [phone] Care Team Providers Care Manager Housekeeping Name Role Phone Lalo Quileschristian Callejasray Primary Care Provider Reason for Visit * Reason Onset Date Comments Appointment 10/13/2023 Encounter Details Date Type Department Care Team (Late st Contact Info) Description 10/13/2023 Telephone Hematology/Oncology Treatment, [place] [address] [place] [address] Services, Scheduling [address] [place] [address] Appointment Allergies Active Allergy Reactions Criticality Noted Date [...] as of this encounter (statuses as of 10/14/2023) Medications Medication Sig Dispensed Refills Start Date [...] Gel Apply a thin ribbon to toothbrush. [place] twice daily in place of normal toothpaste [...] 90 Tablet 3 3 Active Nystatin-Triamcino lone 972319-4.1 UNIT/GM-% External Cream (Mycolog)Indicatio ns:Tinea cruris APPLY [...] 3 01/01/20 24 Active GNP UltiCare Pen [place] 32G X 4 MM (Insulin Pen Needle) [...] by mouth at bedtime. 90 Tablet 1 04/22/202 4 Active Levalbuterol Tartrate 45 MCG/ACT Inhalation [...] hemoglobin A1c goal of less than 8.0% ([facility]) Use as directed. 6 Each 3 4 Active Amoxicillin 500 MG Oral Capsule (Amoxil) take 1 capsule (500 mg) by oral route 2 times per day. Start this 2 days before tooth extraction. 14 Capsule 4 Active Additional Information Patient not taking.Reported on 08/22/2023 BD Clerk General Office Tray 27G X 1/2" 1 ML Kit [...] directed for bridge.. 8 mL 4 Active buPROPion HCl ER (XL) 150 MG Oral Tablet Extended Release 24 Hour (Wellbutrin XL)Indications:Mod erate episode of recurrent major depressive disorder (HCC),PTSD (post-traumatic stress disorder) TAKE ONE TABLET BY MOUTH IN THE MORNING 90 Tablet 3 4 10/11/19 25 Active documented as of this encounter (statuses as of 10/14/2023) Active Problems Problem Noted Date Diagnosed Date [...] as of this encounter (statuses as of 10/14/2023) Resolved Problems Problem Noted Date Diagnosed Date [...] as of this encounter (statuses as of 10/14/2023) Immunizations Name Administration Dates Next Due COVID-19 mRNA, LNP-s, No Pre serve, 2-Dose Series (ClearAccess) 12/18/2020,06/20/2020,05/30/2020 COVID-19, LNP-s, No Preserve , Marshal-sucrose, Ages 12+ (Pfizer) 06/25/2021 Covid-19, Mrna, Lnp-s, Pf, B ivalent, 30 Mcg, IM, 12 yrs and above (ClearAccess) 12/31/2021 H1N1 2009 Influenza, IM 02/24/2009 Hepatitis [...] encounter Miscellaneous Notes * Telephone Encounter - Catalina De La Cruz OSA - 10/14/2023 8:20 AM EDT Called pt and could not leave a VM do to mailbox being full Also sent a [employer] message Will call pt later today * Telephone Encounter - Yeison Fox RN - 10/13/2023 3:10 PM EDT Please assist with rescheduling port flush that was cancelled on 10/02. Patient is currently scheduled for port flush on 11/03, this can be cancelled when new appointment is made. * Telephone Encounter - Wesley Colbert OSA - 10/13/2023 2:59 PM EDT Patient would like to vijay appt for port flush from 10/03/23. Please call her back at [phone] Thanks documented in this encounter Plan of Treatment Upcoming Encounters Date Type Department Care Team (Late st Contact Info) Description 10/28/2023 1:00 PM EDT Anticoagulation Pharmacy, State Yessica Singh [address] [place] [address] Pharmacist2, [facility] [address] [facility] [place] [address] 10/31/2023 11:00 AM EDT Imaging Radiology [facility] [address] 11/01/2023 1:20 PM EDT Office Visit Rheumatology [address] [place] [address] Dayday Montana MD [address] [place] [address] [place] [address] 11/04/2023 1:30 PM EDT Office Visit Cardiology, [facility] [address] [facility] [place] [address] Catalina Schafer CRNP [address] [place] [id number] 11/16/2023 11:45 AM EDT Office Visit Urology, [facility] [address] [facility] [place] [address] Faustino Cárdenas MD [address] [place] [id number] 11/25/2023 1:00 PM EDT Immunization/Injection [facility]ematology[facility], [place] [facility] [address] Sarai, Chair [address] [place] [address] 11/30/2023 1:00 PM EDT Office Visit Hematology/Oncology [address] [place] [address] Daniella Mccord CRNP [address] [place] [id number] 12/07/2023 1:00 PM EDT Office Visit Pharmacy, [address] [place] [address] Pharmacist2, [facility] [address] [facility] [place] [address] 12/07/2023 1:40 PM EDT Anticoagulation Pharmacy, [facility] [address] [facility] [address] Pharmacist2, [facility] [address] [facility] [place] [address] 12/27/2023 3:30 PM EDT Office Visit Gastroenterology, [facility] [address] [place] [address] Franchesca Almaraz CRNP [address] [place] [address] 01/10/2024 1:00 PM EST Office Visit Family Practice [facility] [address] [place] [address] Landon Quiles, DO [address] [place] [address] 05/11/2024 1:40 PM EST Office Visit [facility] Practice [facility] [address] [place] [address] Jackeline Diaz CRNP [address] [place] [address] 09/17/2024 11:40 AM EDT Office Visit Sleep Disorders Ctr [facility] [address] [place] [id number] Bernadette Zuniga, DO [address] [place] [address] Health Maintenance Due Date Last Done Comments [...] this encounter Medical Devices Implanted Type Area Pharmacy Intern Device Identifier Shelf Expiration Date Model / Serial / Lot Graft Flex Hd 6 X 16cm [id number] - [id number] Implanted:Qty : 1 on 09/22/2010 at OR [facility] [place] Tissue - Human Left: Breast [employer] FND 04/28/2013 [id number] / [id number] / Graft Flex Hd 6 X 16cm [id number] - [id number] Implanted:Qty : 1 on 09/22/2010 at OR [facility] [place] Tissue - Human Right: Chest [employer]LET[employer] FND 04/28/2013 [id number] / [id number] / Mediport Pwr Isp 8fr [id number] - [id number] Implanted:Qty : 1 on 09/22/2010 at OR [facility] [place] Right: Chest CR BARD : [employer] 07/13/2012 [id number] / / [id number] Breast Implant 354-2515 Saline - [id number] Implanted:Qty : 1 on 09/22/2010 at OR [facility] [place] Right: Breast MENTOR EVA 12/13/2013 [id number] / [id number] Breast Implant 354-2515 Saline - [id number] Implanted:Qty : 1 on 09/22/2010 at OR [facility] [place] Left: Breast MENT[employer] EVA 07/13/2014 [id number] / [id number] Lens Intraoc 16.5 - [id number] - [id number] Implanted:Qty : 1 on 02/20/2016 by Lincoln Garces MD at OR [facility] Left: Eye [employer]B 08/04/2020 [id number] / [id number] / [id number] Lens Intraoc 15.5 - [id number] - [id number] Implanted:Qty : 1 on 03/09/2016 by Lincoln Garces MD at OR [facility] Right: Eye [employer]OMB 12/04/2017 [id number] / [id number] / documented as of this encounter Advance [...] and were consensually agreed upon. Care Teams Manager Housekeeping Relationship Specialty Start Date End Date Landon Quiles DO [address] [place] [id number] PCP - General Family Medicine 03/19/19 documented as of this encounter
[2023-10-14] MEDS: ceFAZolin 2000MG 2,000 MG/15 ML SYR IV SCH (17:17)
[2023-10-14] MEDS: METOPROLOL TARTRATE 25 MG TAB PO SCH (17:18)
[2023-10-14] MEDS: MAGNESIUM CHLORIDE W/CALCIUM 64MG DELAYED REL TAB PO SCH ×2 (17:18→21:25)
[2023-10-14] MEDS: INSULIN ASPART PER UNIT CHARGE SC SCH (17:25)
[2023-10-14] MEDS ORDERED: metFORMIN HCL ER 500 MG TABCR PO SCH (21:00)
[2023-10-14] MEDS: COUGH DROP (SUGAR FREE) LOZ 24 LOZ/1 BOX BUCCAL PRN (21:18)
[2023-10-14] MEDS: LANTUS PER UNIT CHARGE SC SCH (21:21)
[2023-10-14] MEDS: DOCUSATE SODIUM/SENNA 50/8.6MG TAB PO SCH (21:22)
[2023-10-14] MEDS: FAMOTIDINE 40 MG TABLET PO SCH (21:23)
[2023-10-14] MEDS: FERROUS SULFATE 325 MG TAB PO SCH (21:24)
[2023-10-14] MEDS: MONTELUKAST SODIUM 10 MG TABLET PO SCH (21:25)
[2023-10-14] MEDS: METOPROLOL TARTRATE 1 MG/ML VIAL IV ONE (21:54)
[2023-10-14] MEDS: oxyCODONE HCL IR 5 MG TAB (IMMEDIATE RELEASE) PO PRN (23:41)
[2023-10-15] MEDS: INSULIN ASPART PER UNIT CHARGE SC SCH (00:04)
[2023-10-15] MEDS: METOPROLOL TARTRATE 25 MG TAB PO STA (00:05)
[2023-10-15] MEDS: METOPROLOL TARTRATE 1 MG/ML VIAL IV STA ×3 (01:19→07:06)
[2023-10-15] MEDS: traMADol HCL 50 MG TABLET PO PRN (02:16)
[2023-10-15] MEDS: POLYETHYLENE (MIRALAX) 17 GM PACK PO SCH (05:41)
[2023-10-15 05:50] LABS: Hematocrit (blood only) 35.5 % (37.0-47.0); Hemoglobin 11.4 g/dl (12.0-16.0); Mean Corpuscular Hemoglobin 31.9 pg (25.0-34.0); Mean Corpuscular Hgb Conc 32.1 g/dL (32.0-36.0); Mean Corpuscular Volume 99.4 fL (80.0-100.0); Mean Platelet Volume 10.1 fL (9.4-12.4); Platelet Count 280 K/uL (130-400); RDW Standard Deviation 55.2 fL (36.4-46.3); Red Blood Count 3.57 M/uL (4.20-5.40)
[2023-10-15 06:02] LABS: Calcium 8.5 mg/dl (8.6-10.3)
[2023-10-15 06:08] LABS: Creatinine Clr Calc Pharmacy 96.2 ml/min; Est GFR (African American) 96.3 ml/min; Est GFR (Non-African American) 83.1 ml/min
[2023-10-15 06:25] LABS: Troponin I High Sensitivity 559.1 pg/ml (0-14)
--- NOTE | 2023-10-15 07:35 | Communication Note ---
Date of Service: October 14, 2023 Last Night around 2121 after iv Decadron given patient seemed to have trouble breathing, ringing in ears and shakiness and tingliness. Sandi monterroso was called. Saw the patient. Patient was shaky, Heart rates in 140's, Has some chest tightness but denies sob. In Few minutes shakiness improved. heart rates improved to 120's and patient was feeling better. Chest tightness was improving. Pounding in ears resolved. Patient was alert and oriented and talking fine. ekg was poor quality but showed wide complex rhythm. Patient has chronic RBBB And Left anterior fascicular block. SBP was in 100's. Gave a dose of iv Lopressor 2.5mg. ordered troponin came at 27. Checked on patient again and was feeling much better. Heart rates was still in 120's and sbp in 120's.Gave a dose of po Lopressor 25mg. repeated troponin in 2hrs and came 17. At this time transferred patient to tele floor, ordered echo, npo cardio consult placed. Got another dose of iv Lopressor 2.5mg as HR still around 110-120's. Morning troponin came at 559. Checked on patient denies any chest pain. complains of pain at surgery site. BP ok. Repeat ekg showed Sinus tachycardia at rate 108, RBBB and Left Anterior fascicular block.Qtc 517. Held her next dose of Decadron for now. Notified Am providers.
[2023-10-15] MEDS: MAGNESIUM SULFATE / D5W 1 GM/100 ML BAG IV SCH (08:13)
[2023-10-15] MEDS: PANTOprazole 40 MG TAB PO SCH (08:16)
[2023-10-15] MEDS: ASPIRIN 81 MG ECTAB PO SCH (08:16)
[2023-10-15] MEDS: VITAMIN B COMPLEX TAB PO SCH (08:17)
[2023-10-15] MEDS: ESCITALOPRAM OXALATE 20 MG TAB PO SCH (08:17)
[2023-10-15] MEDS: ATORVASTATIN 20 MG TAB PO SCH (08:17)
[2023-10-15] MEDS: MULTIVITAMIN TAB PO SCH (08:17)
[2023-10-15] MEDS: buPROPion XL 150 MG TABCR PO SCH (08:17)
[2023-10-15] MEDS ORDERED: NON-FORMULARY MEDICATION (Biotin 10 mg Tablet) PO SCH (09:00)
[2023-10-15] MEDS ORDERED: EMPAGLIFLOZIN 10 MG TAB PO SCH (09:00)
[2023-10-15] MEDS ORDERED: LEUCOVORIN CALCIUM 5 MG TAB PO SCH (09:00)
--- NOTE | 2023-10-15 09:02 | Electrocardiogram Report ---
Test Reason : Blood Pressure : */* mmHG Vent. Rate : 142 BPM Atrial Rate : 117 BPM P-R Int : * ms QRS Dur : 126 ms QT Int : 376 ms P-R-T Axes : * 103 -60 degrees QTcB Int : 578 ms Poor data quality, interpretation may be adversely affected Probable Sinus tachycardia with occasional Premature ventricular complexes Rightward axis Non-specific intra-ventricular conduction block Abnormal ECG When compared with ECG of 10-Jul-2021 14:28, HR has increased by 44 bpm Non-specific intra-ventricular conduction delay now present Premature ventricular complexes now present Confirmed by Roderick Silva ([id number]) on 10/15/2023 9:02:24 AM Referred By: Tera Wilkinson Confirmed By: Roderick Silva
--- NOTE | 2023-10-15 09:08 | Electrocardiogram Report ---
Test Reason : Blood Pressure : */* mmHG Vent. Rate : 108 BPM Atrial Rate : 108 BPM P-R Int : 176 ms QRS Dur : 128 ms QT Int : 386 ms P-R-T Axes : 46 -54 21 degrees QTcB Int : 517 ms Sinus tachycardia Right bundle branch block Left anterior fascicular block Abnormal ECG When compared with ECG of 14-Oct-2023 21:47, HR has decreased by 34 bpm Non-specific intra-ventricular conduction delay no longer present Premature ventricular complexes no longer present Confirmed by Roderick Silva ([id number]) on 10/15/2023 9:08:04 AM Referred By: Tera Wilkinson Confirmed By: Roderick Silva
--- NOTE | 2023-10-15 09:33 | Orthopedic Progress Note ---
Date of Service October 15, 2023 Assessment & Plan (1) Myelopathy concurrent with and due to spinal stenosis of cervical region: Plan: At this time we will maintain modest activity today. Pending her cardiac status would like to initiate a course of physical therapy occupational therapy once stable. We will maintain the drain. Admission and Anticipated Discharge Date Admission Date: October 14, 2023 Subjective Patient had not reaction last evening to her IV Decadron. She is now complaining of some pressure in her chest. She does have cervicalgia managed by oral medications. She feels her left arm and leg symptoms are improving. Physical Exam Physical Exam: On exam she is comfortable in bed. She is good strength testing of her lower extremities. Drain is functioning. Results & Data Vital Signs (Past 12 Hours) Vital Signs Temp Pulse Pulse Pulse Pulse Resp BP 10/15/23 07:59 109 H 131/75 10/15/23 07:44 37.2 C 109 H 17 10/15/23 07:16 109 H 20 10/15/23 07:06 112 H 137/87 10/15/23 02:45 116 H 148/88 H 10/15/23 02:41 119 H 16 10/15/23 02:39 122 H 10/15/23 02:33 10/15/23 02:30 120 H 10/15/23 02:13 36.8 C 128 H 23 10/14/23 23:22 119 H 127/77 10/14/23 23:00 110 H 16 10/14/23 22:41 37.1 C 130 H 20 10/14/23 21:54 128 H 105/69 BP Pulse Ox O2 Del Method 10/15/23 07:59 10/15/23 07:44 131/75 90 Room Air 10/15/23 07:16 93 Room Air 10/15/23 07:06 10/15/23 02:45 10/15/23 02:41 95 CPAP 10/15/23 02:39 10/15/23 02:33 Room Air 10/15/23 02:30 10/15/23 02:13 137/90 96 Room Air 10/14/23 23:22 10/14/23 23:00 93 CPAP 10/14/23 22:41 129/74 95 Room Air 10/14/23 21:54 Queries Orthopedic Spine Obesity: Yes
[2023-10-15] MEDS: medroxyPROGESTERone ACETATE 10 MG TAB PO SCH (09:40)
--- NOTE | 2023-10-15 13:45 | Pharmacy Report ---
Pharmacy Glycemic Short Note 2 - Date of Service October 15, 2023 - Glycemic Short BSG Results (Last 24 hours): 10/14/23 10/14/23 10/14/23 16:35 20:33 21:41 Glucose POC Glucose 243 H 192 H 179 H 10/14/23 10/15/23 10/15/23 23:28 03:58 05:34 Glucose 204 H POC Glucose 202 H 153 H 10/15/23 10/15/23 08:05 11:22 Glucose POC Glucose 178 H 164 H OUTPATIENT ANTIDIABETIC REGIMEN: * Basaglar 10 units SQ HS * Jardiance 10mg daily * metformin 2000mg QAM * Ozempic 1mg Qwk * HbA1c 7.2% (10/05/23) ASSESSMENT: 10/15/23: * Code purple last evening following administration of IV dexamethasone, ultimately transferred to [facility] * Patient is currently NPO and dexamethasone has been placed on hold * Blood sugars elevated, but trending down now that steroids are discontinued and NPO * Will utilize scaled basal dose this evening 10/14/23: * Barbie is a 67 YOF status post C5-C7 anterior cervical discectomy and fusion with a history of Type 2 diabetes mellitus. Pharmacy has been consulted to assist with glycemic management while inpatient. * Preoperative BSG above goal range, will give approximately 0.4 units/kg adjusted body weight now x1 to cover preoperative dexamethasone 8mg IV * Ongoing dexamethasone 6mg IV x3 ordered, will add basal insulin twice daily at a weight based stress of 2 or 3 based on BSG (hold if below goal range) * Novolog initiated at a weight based stress of 3, overnight checks added to prevent significant steroid induced hyperglycemia. PLAN FOR INPATIENT GLYCEMIC CONTROL: * Hold outpatient oral diabetes medications * Basal insulin * Lantus 0-5-10-15 units SC HS (see EHR for details) * Bolus insulin * NovoLog per scale ACHS or Q6hrs while NPO * Goal Range: Low 110 mg/dL - High 140 mg/dL * Correction Factor: 20 mg/dL/unit * Nutritional / Prandial insulin per carb ratio of 1 unit per 6 grams CHO consumed
--- NOTE | 2023-10-15 14:24 | Hospitalist Progress Note ---
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 Wilkinson Activity and wound care orders as per ortho Pain control with bowel regimen PT/OT Monitor H/H for acute blood loss anemia and transfuse blood products PRN LUE and BLE weakness on 10/13 per pt, improved by 8/10 am bedside exam per pt. Continue to monitor. Elevated troponin Reaction to decadron Pt had code purple on 10/13 evening after iv decadron, had trouble breathing/ringing in ears/shakiness/tingliness/Heart rate in 140s /chest tightness --> lopressor 2.5 mg iv was given w/ some improvement in HR. Pt reports symptoms getting better after about 20 minutes. Troponin was drawn, uptrended. Repeat EKG w/ Sinus tach and chronic RBBB and LAFB. ECHO w/ EF of 55-60%, mild concentric LVH. Non dilated cardiac chambers. Pt w/ significantly improving chest /breathing symptoms. Elevated trop likely 2/2 demand ischemia iso tachy due to reaction to Decadron. c/w telemetry, cardio evaled, appreciate recs. HO Deep vein thrombosis: HO Pulmonary embolism: Resumption of anticoagulation when bleeding risk deemed minimal per Sx. SCDs for now. Diabetes mellitus, type 2: Hold home metformin, Jardiance, Ozempic. Glycemic pharmacy consulted by spine Ortho. HgbA1c 6.5 09/2023 PSVT (paroxysmal supraventricular tachycardia): Rate controlled on verapamil and metoprolol Asthma: Appears stable, no signs of acute exacerbation. Continue home inhaler Seronegative polyarthritis: managed with weekly methotrexate, continue Sleep apnea: CPAP as per home settings GERD (gastroesophageal reflux disease): Continue PPI and H2 tracie DVT PROPHYLAXIS: TEDs/SCDs as per spine Ortho Admission and Anticipated Discharge Date Admission Date: October 14, 2023 Subjective Patient was seen and examined at bedside. Patient was lying in bed, on room air, NAD, resting comfortably. Last evening, she had reaction to IV Decadron which resulted in trouble breathing/ringing in the ears/achiness/tingliness. Patient states that it lasted for about 20 minutes, her heart rate was elevated/tachycardia was noted. She does have chronic RBBB and left anterior fascicular block. After about 20 minutes, patient started feeling better. She reports some mild chest pressure today morning, no chest pain or numbness or tingling. She reports improving left arm and bilateral leg symptoms. Physical Exam Physical Exam: oriented x 3 , not in distress, speaks in sentences with no effort nor accessory muscle use neck: dressing and drain in place, no active bleeding tachycardic in 110s, regular rhythm, no murmurs clear breath sounds bilaterally non distended, soft, nontender no bipedal edema, erythema, warmth no neuro deficits Results & Data Results & Data Vital Signs (Past 12 Hours) Vital Signs Temp Pulse Pulse Pulse Pulse Resp BP 10/15/23 11:18 37.0 C 101 H 18 10/15/23 10:26 100 H 18 10/15/23 07:59 109 H 131/75 10/15/23 07:44 37.2 C 109 H 17 10/15/23 07:16 109 H 20 10/15/23 07:06 112 H 137/87 10/15/23 02:45 116 H 148/88 H 10/15/23 02:41 119 H 16 10/15/23 02:39 122 H 10/15/23 02:33 10/15/23 02:30 120 H 10/15/23 02:13 36.8 C 128 H 23 BP Pulse Ox O2 Del Method 10/15/23 11:18 129/72 94 CPAP 10/15/23 10:26 96 Room Air 10/15/23 07:59 10/15/23 07:44 131/75 90 Room Air 10/15/23 07:16 93 Room Air 10/15/23 07:06 10/15/23 02:45 10/15/23 02:41 95 CPAP 10/15/23 02:39 10/15/23 02:33 Room Air 10/15/23 02:30 10/15/23 02:13 137/90 96 Room Air
--- NOTE | 2023-10-15 14:58 | Cardiology Consultation ---
Date of Consultation October 15, 2023 Assessment & Plan (1) Sinus tachycardia: her ECG looks to be ST at the time of the acute response to all the steroids plus the pain from recent surgery and lying in a C-collar this is all a normal response (2) PAT (paroxysmal atrial tachycardia): Pt has known PAT and is on metoprolol and verapamil for this (3) Myelopathy concurrent with and due to spinal stenosis of cervical region: recent surgery Plan 67y/o F PMH PAT, NSVT, PE, H/o Breast cancer, DM, PMR, LORE on CPAP, recent cervical spine surgery who post op had ST. Would continue her current home doses of metoprolol and verapamil. Continue other cardiac medications. No further in patient cardiac testing necessary. Please re-consult as necessary. keep f/u as scheduled on 11/04/2023 History of Present Illness Reason for Consultation: tachycardia Requesting Physician: Dr. Hedrick Attending Physician: Tera Wilkinson, History of Present Illness Pt known to me from the office; she is post op from cervical spine surgery; she got a lot of decadron and then went into tachycardia; she had lightheadedness, hypoxia and palpitations with the episode. this morning she is feeling better from a cardiac perspective she is still having some pain associated with surgery Allergies Allergy/AdvReac Type Severity Reaction Status Date / Time allopurinol Allergy Intermediate Unknown Verified 10/14/23 06:46 amitriptyline Allergy Intermediate Arms, leg Verified 10/14/23 06:46 swelling codeine Allergy Intermediate Pruritus, Verified 10/14/23 06:46 rash doxepin Allergy Intermediate Arms, leg Verified 10/14/23 06:46 swelling gabapentin Allergy Intermediate Arms, leg Verified 10/14/23 06:46 swelling sitagliptin Allergy Intermediate Arms, leg Verified 10/14/23 06:46 swelling mineral oil [From Vagisil] Allergy Mild Rash Verified 10/14/23 06:46 nickel Allergy Mild Rash Verified 10/14/23 06:46 potassium chloride Allergy Mild Pruritus, Verified 10/14/23 06:46 [From Klor-Con] rash resorcinol [From Vagisil] Allergy Mild Rash Verified 10/14/23 06:46 starch [From Vagisil] Allergy Mild Rash Verified 10/14/23 06:46 Tricyclic Antidepressants Allergy Unknown leg and Verified 10/14/23 14:20 and Tricy arm swelling clindamycin Allergy Unknown Verified 10/14/23 07:14 fluticasone furoate Allergy Swelling Verified 10/14/23 06:46 [From [facility] Ellipta] of Lip/Tongue/Throat vilanterol Allergy Swelling Verified 10/14/23 06:46 [From [facility] Ellipta] of Lip/Tongue/Throat adhesive AdvReac Intermediate Rash, Verified 10/14/23 06:46 itching (tape) erythromycin base AdvReac Intermediate Severe Verified 10/14/23 06:46 stomach cramps Home Medications Medication Instructions Recorded Confirmed Type aspirin 81 mg tablet,delayed 81 mg PO QAM 11/09/17 10/14/23 History release atorvastatin 20 mg tablet 20 mg PO QAM 11/09/17 10/14/23 History metoprolol tartrate 25 mg tablet 12.5 mg PO BIDM 11/09/17 10/14/23 History potassium citrate 10 mEq (1,080 See Rx Instructions .Route .COMPLEX 11/09/17 10/14/23 History mg) tablet,extended release warfarin 5 mg tablet 5 mg PO 2XWK 11/09/17 10/14/23 History magnesium chloride 64 mg 128 - 192 mg PO TID 01/08/19 10/14/23 History (magnesium chloride) tablet,delayed release medroxyprogesterone 10 mg tablet 10 mg PO QAM 02/13/19 10/14/23 History (Provera) ropinirole 0.5 mg tablet 0.5 mg PO HS PRN Restless Leg(S) 02/13/19 10/14/23 History escitalopram oxalate 20 mg tablet 20 mg PO QAM 08/27/20 10/14/23 History ferrous sulfate 325 mg (65 mg 325 mg PO QPM 08/27/20 10/14/23 History iron) tablet furosemide 20 mg tablet 20 mg PO QAM PRN Edema 08/27/20 10/14/23 History leucovorin calcium 5 mg tablet 5 mg PO WK 08/27/20 10/14/23 History methotrexate sodium 25 mg/mL 25 mg subcut UD 08/27/20 10/14/23 History injection solution verapamil 120 mg tablet,extended 120 mg PO TID 08/27/20 10/14/23 History release warfarin 5 mg tablet 7.5 mg PO 5XWK 08/27/20 10/14/23 History acetaminophen 650 mg 1,300 mg PO UD PRN Pain 01/24/21 10/14/23 History tablet,extended release metformin 500 mg tablet,extended 2,000 mg PO HS 01/24/21 10/14/23 History release 24 hr montelukast 10 mg tablet 10 mg PO HS 01/24/21 10/14/23 History wnahvjjhhlyh-gztyvrfg-yfghpp 1 tab PO QAM 01/24/21 10/14/23 History tablet (Multivitamin 50 Plus tablet) vitamin B complex 1 tab PO QAM 01/24/21 10/14/23 History ondansetron 4 mg disintegrating 4 mg PO Q8H PRN nausea and 02/09/21 10/14/23 Rx tablet vomiting #7 tabs albuterol sulfate 90 mcg/actuation 2 puff inhalation Q4H PRN Wheezing 07/10/21 10/14/23 History aerosol inhaler (Ventolin HFA) biotin 10 mg tablet 10 mg PO QAM 07/10/21 10/14/23 History cyclosporine 0.05 % eye drops in a 1 drp ophthalmic (eye) Q12H 07/10/21 10/14/23 History dropperette (Restasis) oxycodone 5 mg tablet 5 mg PO BID PRN Pain 07/10/21 10/14/23 History semaglutide 1 mg/dose (4 mg/3 mL) 1 mg subcut WK 07/10/21 10/14/23 History subcutaneous pen injector (Ozempic) vibegron 75 mg tablet (Gemtesa) 75 mg PO QAM 07/10/21 10/14/23 History bupropion HCl 150 mg 24 hr tablet, 150 mg PO QAM 09/28/23 10/14/23 History extended release insulin glargine 100 unit/mL (3 10 unit subcut HS 09/28/23 10/14/23 History mL) subcutaneous pen (Basaglar KwikPen U-100 Insulin) empagliflozin 25 mg tablet 25 mg PO DAILY 10/14/23 10/14/23 History (Jardiance) enoxaparin 120 mg/0.8 mL 120 mg subcut Q12H 10/14/23 10/14/23 History subcutaneous syringe (Lovenox) famotidine 40 mg tablet 40 mg PO HS 10/14/23 10/14/23 History fluticasone propionate 230 2 inh inhalation BID 10/14/23 10/14/23 History mcg-salmeterol 21 mcg/actuation HFA inhaler (Advair HFA) lansoprazole 15 mg capsule,delayed 15 mg PO DAILY 10/14/23 10/14/23 History release oxycodone 5 mg tablet 5 mg PO Q6H PRN pain #30 tabs 10/14/23 Rx tramadol 50 mg tablet 50 mg PO Q6H PRN pain, moderate 10/14/23 Rx #30 tabs Patient History Medical History Seronegative polyarthritis Rheumatoid arthritis with inflammatory polyarthropathy Osteoarthritis Overactive bladder GERD (gastroesophageal reflux disease) Diabetes mellitus, type 2 Anemia Anxiety and depression Post traumatic stress disorder Peripheral neuropathy Pulmonary embolism Several years ago Hx of deep venous thrombosis Age mid-30s after fall/trauma Atrial tachycardia Follows with Dr. Shaw Sleep apnea CPAP (compliant) Asthma Uterine hyperplasia Currently on hormone therapy Morbid obesity with BMI of 40.0-44.9, adult Limb alert care status LUE restriction Gastroparesis Raynauds phenomenon History of kidney stones Degenerative disc disease Chronic kidney disease (CKD) Stage 3 Follows with [facility] nephrology Neuropathy Severe legs/feet Uses assistive devices including mobilized wheelchair Fibromyalgia Hyperlipidemia Hypertension Breast cancer Invasive adenocarcinoma Dx 2010 - B/L mastectomy + chemo + radiation Restless legs syndrome Surgical History History of tooth extraction History of cataract surgery R/L Nausea and vomiting after administration of anesthetic agent History of cystoscopy Cysto, laser litho (02/19/2021): LMA#4 (iGel) at [facility] History of lithotripsy History of colonoscopy 05/20/23, MAC at [facility] History of esophagogastroduodenoscopy (EGD) History of gynecological procedure D&C, Mirena insertion (11/24/18): Grade 2 view, Glidescope#3, ETT 7.0, atraumatic elective glidescope intubation x2, 2nd attempt successful History of breast biopsy History of D&C H/O bilateral salpingo-oophorectomy H/O breast reconstruction Implants failed due to infections > subsequent removal History of carpal tunnel release R/L History of exploratory laparotomy Hx of foot surgery left History of herniorrhaphy Umbilical with mesh History of cholecystectomy History of vascular access device Mediport power port (Right chest) History of bilateral mastectomy LUE restriction Family History Brother Family history of diabetes mellitus Father Family history of diabetes mellitus Mother Family history of diabetes mellitus Other No family history of adverse response to anesthesia Social History Smoking Status: Former smoker Tobacco Type: Cigarettes Cigarettes Per Day: Quit 1984; Second Hand Exposure: Yes (hx); Do You Dip or Chew Tobacco: No; Hx Alcohol Use: No Hx Substance Use: No Preferred Language: Syriac Communication Ability: Effective Injection Molding Technician Required: No Beliefs That Will Affect Care: None Current Living Situation: Spouse Current Living Situation Comment: raised ranch home, stair lift , ramp in place Feels Safe at Home: Yes Safety Concerns: Feels Safe At This Time Assistive Devices: Cane, CPAP and Walker Review of Systems Review of Systems: All systems reviewed & are unremarkable except as noted in HPI & below Physical Exam Physical Exam: Gen: aaox3, NAD HEENT: NC/AT, EOMI neck: in a brace with J-Tube drain noted Cardiac: mildly tachycardic, Nrl S1/S2, No murmur pulm: CTA b/l no w/r/r abd: soft nt/nd LE: no LE edema b/l skin: intact neuro: no focal deficits Results & Data Vital Signs (Past 12 Hours) Vital Signs Temp Pulse Pulse Pulse Resp BP BP 10/15/23 14:28 95 H 16 10/15/23 11:18 37.0 C 101 H 18 129/72 10/15/23 10:26 100 H 18 10/15/23 07:59 109 H 131/75 10/15/23 07:44 37.2 C 109 H 17 131/75 10/15/23 07:16 109 H 20 10/15/23 07:06 112 H 137/87 Pulse Ox O2 Del Method 10/15/23 14:28 93 CPAP 10/15/23 11:18 94 CPAP 10/15/23 10:26 96 Room Air 10/15/23 07:59 10/15/23 07:44 90 Room Air 10/15/23 07:16 93 Room Air 10/15/23 07:06 Laboratory Results Laboratory Results - last 24 hr 10/14/23 10/14/23 10/14/23 16:35 20:33 21:41 WBC RBC Hgb Hct MCV MCH MCHC RDW Std Deviation RDW Coeff of Maris Plt Count MPV Sodium Potassium Chloride Carbon Dioxide Anion Gap BUN Creatinine Est Cr Clr Drug Dosing Est GFR ( Amer) Est GFR (Non-Af Amer) BUN/Creatinine Ratio Glucose POC Glucose 243 H 192 H 179 H Calcium Troponin I High Sens 10/14/23 10/14/23 10/15/23 22:12 23:28 00:39 WBC RBC Hgb Hct MCV MCH MCHC RDW Std Deviation RDW Coeff of Maris Plt Count MPV Sodium Potassium Chloride Carbon Dioxide Anion Gap BUN Creatinine Est Cr Clr Drug Dosing Est GFR ( Amer) Est GFR (Non-Af Amer) BUN/Creatinine Ratio Glucose POC Glucose 202 H Calcium Troponin I High Sens 27.0 H 217.7 H* D 10/15/23 10/15/23 10/15/23 03:58 05:34 08:05 WBC 14.10 H RBC 3.57 L Hgb 11.4 L Hct 35.5 L MCV 99.4 MCH 31.9 MCHC 32.1 RDW Std Deviation 55.2 H RDW Coeff of Maris 15.0 H Plt Count 280 MPV 10.1 Sodium 139 Potassium 4.0 Chloride 112 H Carbon Dioxide 19 L Anion Gap 8 BUN 12 Creatinine 0.75 Est Cr Clr Drug Dosing 96.2 Est GFR ( Amer) 96.3 Est GFR (Non-Af Amer) 83.1 BUN/Creatinine Ratio 16.0 Glucose 204 H POC Glucose 153 H 178 H Calcium 8.5 L Troponin I High Sens 559.1 H* D 10/15/23 11:22 WBC RBC Hgb Hct MCV MCH MCHC RDW Std Deviation RDW Coeff of Maris Plt Count MPV Sodium Potassium Chloride Carbon Dioxide Anion Gap BUN Creatinine Est Cr Clr Drug Dosing Est GFR ( Amer) Est GFR (Non-Af Amer) BUN/Creatinine Ratio Glucose POC Glucose 164 H Calcium Troponin I High Sens Diagnostic Findings EC/9: SR RBBB, LAFB 10/13: ST Echo: EF 55% Grade I diastolic LVH Non-dilated cardiacs chambers AV sclerosis Medications Administered Current Inpatient Medications Acetaminophen (Acetaminophen 500 Mg Tab) 1,000 mg PO Q8H PRN PRN Reason: MILD Pain Scale 1,2,3 & Pre PT Stop: 11/13/23 12:34 Last Admin: 10/15/23 03:59 Dose: 1,000 mg Al Hydrox/Mg Hydrox/Simethicone (Aluminum/Magnesium Susp 30 Ml Udc) 30 ml PO Q6H PRN PRN Reason: Dyspepsia Stop: 11/13/23 12:34 Albuterol (Albuterol Hfa 8 Gm Inhaler) 2 puffs INH Q4H PRN PRN Reason: Wheezing Stop: 11/13/23 12:34 Artificial Tears (Artificial Tears) 1 drops OP QID PRN PRN Reason: Dryness Stop: 11/13/23 13:30 Aspirin (Aspirin 81 Mg Ectab) 81 mg PO [facility] Stop: 11/14/23 08:59 Last Admin: 10/15/23 08:16 Dose: 81 mg Atorvastatin Calcium (Atorvastatin 20 Mg Tab) 20 mg PO [facility] Stop: 11/14/23 08:59 Last Admin: 10/15/23 08:17 Dose: 20 mg Bisacodyl (Bisacodyl 10 Mg Supp) 10 mg VT DAILY PRN PRN Reason: Constipation Stop: 11/13/23 12:34 Bupropion HCl (Bupropion Xl 150 Mg Tabcr) 150 mg PO [facility] Stop: 11/14/23 08:59 Last Admin: 10/15/23 08:17 Dose: 150 mg Diphenhydramine HCl (Diphenhydramine Capsule 25 Mg Cap) 25 mg PO Q6H PRN PRN Reason: Allergic Rhinitis/Insomnia Stop: 11/13/23 12:34 Epinephrine (Racepinephrine 2.25% Nebu Soln 0.5 Ml Vial) 0.5 ml INH NOW PRN PRN Reason: If stridor present Escitalopram Oxalate (Escitalopram Oxalate 20 Mg Tab) 20 mg PO [facility] Stop: 11/14/23 08:59 Last Admin: 10/15/23 08:17 Dose: 20 mg Famotidine (Famotidine 20 Mg Tab) 20 mg PO Q12H PRN PRN Reason: Dyspepsia Stop: 11/13/23 12:34 Famotidine (Famotidine 40 Mg Tablet) 40 mg PO HS JIM Stop: 11/13/23 20:59 Last Admin: 10/14/23 21:23 Dose: 40 mg Ferrous Sulfate (Ferrous Sulfate 325 Mg Tab) 325 mg PO QPM JIM Stop: 11/13/23 20:59 Last Admin: 10/14/23 21:24 Dose: 325 mg Furosemide (Furosemide 20 Mg Tab) 20 mg PO QAM PRN PRN Reason: Edema Stop: 11/13/23 12:34 Hydromorphone HCl (Hydromorphone Inj 0.5 Mg/0.5 Ml Syr) 0.5 mg IV Q3H PRN PRN Reason: MODERATE Pain (Scale 4,5,6) & Pre PT Stop: 10/28/23 12:34 Hydroxyzine HCl (Hydroxyzine Hcl 25 Mg Tab) 25 mg PO Q8H PRN PRN Reason: Anxiety Stop: 11/13/23 12:34 Dexamethasone 8 mg/ Syringe 2 mls @ 1 mls/min IV NOW PRN PRN Reason: If stridor present Sodium Chloride (Nss) 1,000 mls @ 150 mls/hr IV .Q6H40M JIM Stop: 11/13/23 12:34 Last Admin: 10/15/23 08:14 Dose: 150 mls/hr Lorazepam 0.5 mg/ Syringe 0.5 mls @ 2 mls/min IV Q8H PRN; Protocol PRN Reason: Sedation/Anxiety Stop: 11/13/23 12:34 Promethazine HCl (Phenergan) 12.5 mg in 50.5 mls @ 202 mls/hr IV Q6H PRN PRN Reason: Nausea And Vomiting Stop: 11/13/23 12:34 Dexamethasone 6 mg/ Syringe 1.5 mls @ 1 mls/min IV Q8H [facility] Last Admin: 10/14/23 21:22 Dose: 1 mls/min Influenza Virus Vaccine Quadrival (Do Not Administer Flu Vaccine) 1 each N/A PRN PRN PRN Reason: Notification Stop: 11/13/23 12:34 Insulin Aspart (Insulin Aspart Per Unit Charge) 0 units SC ACHS [facility] Stop: 11/13/23 16:29 Last Admin: 10/15/23 11:49 Dose: 2 units Insulin Glargine (Lantus Per Unit Charge) 0 units SC [facility]; Protocol Stop: 11/14/23 20:59 Leucovorin Calcium (Leucovorin Calcium 5 Mg Tab) 5 mg PO Sa@0900 [facility] Stop: 11/14/23 08:59 Lorazepam (Lorazepam 0.5 Mg Tab) 0.5 mg PO Q8H PRN PRN Reason: Sedation/Anxiety Stop: 11/13/23 12:34 Magnesium Chloride (Magnesium Chloride W/Calcium 64mg Delayed Rel Tab) 192 mg PO BID@0800,1700 [facility] Stop: 11/13/23 16:59 Last Admin: 10/15/23 08:15 Dose: 192 mg Magnesium Chloride (Magnesium Chloride W/Calcium 64mg Delayed Rel Tab) 128 mg PO [facility] Stop: 11/13/23 20:59 Last Admin: 10/14/23 21:25 Dose: 128 mg Magnesium Hydroxide (Magnesium Hydroxide Susp 30 Ml Udc) 30 ml PO Q24H PRN PRN Reason: Constipation Stop: 11/13/23 12:34 Medroxyprogesterone Acetate (Medroxyprogesterone Acetate 10 Mg Tab) 10 mg PO QAM [facility] Stop: 11/14/23 08:59 Last Admin: 10/15/23 09:40 Dose: 10 mg Menthol (Cough Drop (Sugar Free) Cristel 24 Cristel/1 Box) 1 cristel BUCCAL Q6H PRN PRN Reason: Sore Throat Stop: 11/13/23 20:44 Last Admin: 10/14/23 21:18 Dose: 1 cristel Metoprolol Tartrate (Metoprolol Tartrate 25 Mg Tab) 12.5 mg PO BIDM [facility] Stop: 11/13/23 16:59 Last Admin: 10/15/23 08:17 Dose: 12.5 mg Miscellaneous (Check Scopolamine Patch Placement) 1 each N/A QS [facility] Stop: 10/17/23 07:59 Last Admin: 10/15/23 08:14 Dose: 1 each Miscellaneous (Remove Transderm-Scop Patch) 1 each N/A Q72H [facility] Stop: 10/17/23 07:31 Miscellaneous (Advair Hfa] 230-21 Mcg/Actuation - Order Awaiting Action) 1 each N/A QS [facility] Stop: 11/13/23 15:59 Last Admin: 10/15/23 08:20 Dose: Not Given Miscellaneous Information (Pharmacy Glycemic Mgmt Consult) 1 each N/A UD PRN PRN Reason: Consult Stop: 11/13/23 12:34 Montelukast Sodium (Montelukast Sodium 10 Mg Tablet) 10 mg PO HS [facility] Stop: 11/13/23 20:59 Last Admin: 10/14/23 21:25 Dose: 10 mg Multivitamins (Multivitamin Tab) 1 tab PO QAM [facility] Stop: 11/14/23 08:59 Last Admin: 10/15/23 08:17 Dose: 1 tab Naloxone HCl (Naloxone Hcl 0.4 Mg/1 Ml Vial/Carp) 0.1 mg IV Q5M PRN PRN Reason: Oversedation/Resp depression Stop: 11/13/23 12:34 Ondansetron HCl (Ondansetron Inj 2 Mg/Ml 2 Ml Vial) 4 mg IV Q6H PRN PRN Reason: Nausea &/or Vomiting Stop: 11/13/23 12:34 Ondansetron HCl (Ondansetron 4 Mg Od Tab) 4 mg PO Q6H PRN PRN Reason: Nausea Stop: 11/13/23 12:34 Oxycodone HCl (Oxycodone Hcl Ir 5 Mg Tab (Immediate Release)) 5 - 10 mg PO Q4H PRN PRN Reason: Pain & Pre PT Stop: 10/28/23 12:34 Last Admin: 10/15/23 03:59 Dose: 5 mg Pantoprazole Sodium (Pantoprazole 40 Mg Tab) 40 mg PO QAM [facility] Stop: 11/14/23 08:59 Last Admin: 10/15/23 08:16 Dose: 40 mg Pneumococcal Polyvalent Vaccine (Do Not Administer Pneumococcal Vaccine) 1 each N/A PRN PRN PRN Reason: Notification Stop: 11/13/23 12:34 Polyethylene Glycol (Polyethylene (Miralax) 17 Gm Pack) 17 gm PO Q6 [facility] Stop: 11/14/23 05:59 Last Admin: 10/15/23 11:49 Dose: 17 gm Ropinirole HCl (Ropinirole Hcl 0.25 Mg Tablet) 0.5 mg PO HS PRN PRN Reason: Restless Leg(S) Stop: 11/13/23 12:34 Senna/Docusate Sodium (Docusate Sodium/Senna 50/8.6mg Tab) 2 tab PO HS [facility] Stop: 11/13/23 20:59 Last Admin: 10/14/23 21:22 Dose: 2 tab Sodium Biphosphate/Sodium Phosphate (Sod Phosphate/Sod Biphosphate Enema 132 Ml Btl) 132 ml VT ONE PRN PRN Reason: Constipation Stop: 11/13/23 12:34 Tramadol HCl (Tramadol Hcl 50 Mg Tablet) 50 - 100 mg PO Q4H PRN PRN Reason: Moderate-Severe pain & Pre PT Stop: 11/13/23 12:34 Last Admin: 10/15/23 11:48 Dose: 50 mg Verapamil HCl (Verapamil Hcl 120 Mg Tabcr) 120 mg PO TID [facility] Stop: 11/13/23 13:59 Last Admin: 10/15/23 13:00 Dose: 120 mg Vitamin B Complex (Vitamin B Complex Tab) 1 tab PO QAM [facility] Stop: 11/14/23 08:59 Last Admin: 10/15/23 08:17 Dose: 1 tab Warfarin Sodium (Warfarin Sod 5 Mg Tab) 5 mg PO SuTh@1600 [facility] Stop: 11/15/23 15:59
[2023-10-15] MEDS: LANTUS PER UNIT CHARGE SC SCH (20:12)
[2023-10-15] MEDS: FLUTICASONE PROPIONATE INH SCH (20:28)
[2023-10-15] MEDS: SALMETEROL INH SCH (20:28)
[2023-10-15] MEDS ORDERED: SALMETEROL INH SCH (21:00)
[2023-10-15] MEDS ORDERED: FLUTICASONE PROPIONATE INH SCH (21:00)
[2023-10-16 07:25] LABS: Hematocrit (blood only) 35.8 % (37.0-47.0); Hemoglobin 11.4 g/dl (12.0-16.0); Mean Corpuscular Hemoglobin 31.8 pg (25.0-34.0); Mean Corpuscular Hgb Conc 31.8 g/dL (32.0-36.0); Mean Corpuscular Volume 99.7 fL (80.0-100.0); Mean Platelet Volume 10.2 fL (9.4-12.4); Platelet Count 252 K/uL (130-400); RDW Coefficient of Variation 15.2 % (11.5-14.5); RDW Standard Deviation 55.6 fL (36.4-46.3); Red Blood Count 3.59 M/uL (4.20-5.40); White Blood Count 11.46 K/ul (4.8-10.8)
[2023-10-16 07:51] LABS: BUN Creatinine Ratio 14.1 (10-20); Calcium 8.2 mg/dl (8.6-10.3); Creatinine Clr Calc Pharmacy 101.6 ml/min; Est GFR (African American) 102.9 ml/min; Est GFR (Non-African American) 88.8 ml/min; Magnesium 2.1 mg/dl (1.7-2.4); Phosphorus 2.7 mg/dl (2.5-4.9); Potassium 3.8 mmol/L (3.5-5.1)
--- NOTE | 2023-10-16 10:39 | Hospitalist Progress Note ---
Date of Service October 16, 2023 Assessment & Plan (1) Myelopathy concurrent with and due to spinal stenosis of cervical region: Plan Myelopathy concurrent with and due to spinal stenosis of cervical region: POD#2 C5-C[address] Wilkinson Activity and wound care orders as per ortho Pain control with bowel regimen PT/OT Monitor H/H for acute blood loss anemia and transfuse blood products PRN LUE and BLE weakness on 10/13 per pt, improved by 8/10 am bedside exam per pt. Continue to monitor. Elevated troponin Reaction to decadron Pt had code purple on 10/13 evening after iv decadron, had trouble breathing/ringing in ears/shakiness/tingliness/Heart rate in 140s /chest tightness --> lopressor 2.5 mg iv was given w/ some improvement in HR. Pt reports symptoms getting better after about 20 minutes. Troponin was drawn, uptrended. Repeat EKG w/ Sinus tach and chronic RBBB and LAFB. ECHO w/ EF of 55-60%, mild concentric LVH. Non dilated cardiac chambers. Pt w/ significantly improving chest /breathing symptoms. Elevated trop likely 2/2 demand ischemia iso tachy due to reaction to Decadron. c/w telemetry, cardio evaled, appreciate recs. Patient with no chest pressure or pain. HO Deep vein thrombosis: HO Pulmonary embolism: Discussed with surgery, resuming anticoagulation today. Close monitoring of her symptoms and H&H. Daily PT/INR. Lovenox bridge Until PT/INR are therapeutic. Patient will need to follow-up with Coumadin clinic closely upon discharge. Diabetes mellitus, type 2: Hold home metformin, Jennadicaitlin Ozempic. Glycemic pharmacy consulted by spine Ortho. HgbA1c 6.5 09/2023 PSVT (paroxysmal supraventricular tachycardia): Rate controlled on verapamil and metoprolol Asthma: Appears stable, no signs of acute exacerbation. Continue home inhaler Seronegative polyarthritis: managed with weekly methotrexate, continue Sleep apnea: CPAP as per home settings GERD (gastroesophageal reflux disease): Continue PPI and H2 tracie DVT PROPHYLAXIS: TEDs/SCDs as per spine Ortho Dispo: DG to med/surg. Admission and Anticipated Discharge Date Admission Date: October 14, 2023 Subjective Patient was seen and examined at bedside. Patient was lying in bed, on room air, NAD, resting comfortably. Patient reports eating okay and moving bowels okay, denies weakness of left upper and lower extremity. Denies chest pressure. No new acute event overnight. Physical Exam Physical Exam: oriented x 3 , not in distress, speaks in sentences with no effort nor accessory muscle use neck: dressing and drain in place, no active bleeding tachycardic in 100s, regular rhythm, no murmurs clear breath sounds bilaterally non distended, soft, nontender no bipedal edema, erythema, warmth no neuro deficits Results & Data Results & Data Vital Signs (Past 12 Hours) Vital Signs Temp Pulse Pulse Pulse Resp BP Pulse Ox 10/16/23 08:13 10/16/23 07:24 102 H 16 98 10/16/23 06:51 36.9 C 92 H 19 128/72 96 10/16/23 05:42 92 H 10/16/23 03:28 36.6 C 76 18 130/85 96 10/16/23 03:10 96 H 16 97 10/15/23 22:42 91 H 19 95 O2 Del Method 10/16/23 08:13 Room Air, CPAP 10/16/23 07:24 Room Air 10/16/23 06:51 Room Air 10/16/23 05:42 10/16/23 03:28 CPAP 10/16/23 03:10 CPAP 10/15/23 22:42 CPAP
--- NOTE | 2023-10-16 11:34 | Orthopedic Progress Note ---
Date of Service October 16, 2023 Assessment & Plan (1) Myelopathy concurrent with and due to spinal stenosis of cervical region: Plan: At this point she is going to be transferred to orthopedic floor. I would initiate OT PT tomorrow. Maintain drain until tomorrow. Admission and Anticipated Discharge Date Admission Date: October 14, 2023 Subjective Neck pain controlled arm symptoms leg symptoms improving Physical Exam Physical Exam: Patient is currently in bed. She is neurologically intact. YESI drain is functioning. Results & Data Vital Signs (Past 12 Hours) Vital Signs Temp Pulse Pulse Pulse Resp BP Pulse Ox 10/16/23 10:43 36.7 C 94 H 19 132/72 97 10/16/23 08:13 10/16/23 07:24 102 H 16 98 10/16/23 06:51 36.9 C 92 H 19 128/72 96 10/16/23 05:42 92 H 10/16/23 03:28 36.6 C 76 18 130/85 96 10/16/23 03:10 96 H 16 97 O2 Del Method 10/16/23 10:43 CPAP 10/16/23 08:13 Room Air, CPAP 10/16/23 07:24 Room Air 10/16/23 06:51 Room Air 10/16/23 05:42 10/16/23 03:28 CPAP 10/16/23 03:10 CPAP Queries Orthopedic Spine Obesity: Yes
[2023-10-16] MEDS: ENOXAPARIN INJ 120 MG/0.8 ML SYR SQ SCH (11:39)
[2023-10-16] MEDS: WARFARIN SOD 5 MG TAB PO ONE (16:46)
[2023-10-16] MEDS: WARFARIN SOD 5 MG TAB PO SCH (16:47)
[2023-10-17 06:32] LABS: Hematocrit (blood only) 38.5 % (37.0-47.0); Hemoglobin 12.2 g/dl (12.0-16.0); Mean Corpuscular Hgb Conc 31.7 g/dL (32.0-36.0); Mean Platelet Volume 10.1 fL (9.4-12.4); Platelet Count 265 K/uL (130-400); RDW Coefficient of Variation 15.3 % (11.5-14.5); RDW Standard Deviation 57.1 fL (36.4-46.3); Red Blood Count 3.81 M/uL (4.20-5.40); White Blood Count 9.25 K/ul (4.8-10.8)
[2023-10-17 06:57] LABS: INR 1.1 (0.9-1.1); Prothrombin Time 11.6 Seconds (9.0-12.0)
[2023-10-17] MEDS: rOPINIRole HCL 0.25 MG TABLET PO PRN (07:45)
[2023-10-17] MEDS: MAGNESIUM HYDROXIDE SUSP 30 ML UDC PO PRN (08:33)
--- NOTE | 2023-10-17 10:26 | Orthopedic Progress Note ---
Date of Service October 17, 2023 Assessment & Plan (1) Myelopathy concurrent with and due to spinal stenosis of cervical region: Plan: At this time we will have her undergo PT OT. Will assess whether she is safe to return home versus rehab. Will determine this next day or so. Admission and Anticipated Discharge Date Admission Date: October 14, 2023 Subjective Patient's neck pain is tolerable. She still notes some numbness and tingling left arm. She tolerated physical therapy. Physical Exam Physical Exam: On exam she is sitting up at the bedside. The collar is in place. She has reasonable strength testing upper extremities somewhat weaker grasp on the left. Results & Data Vital Signs (Past 12 Hours) Vital Signs Temp Pulse Resp BP Pulse Ox O2 Del Method 10/17/23 08:51 Room Air, CPAP 10/17/23 07:14 36.7 C 102 H 16 125/76 96 Room Air Queries Orthopedic Spine Obesity: Yes
--- NOTE | 2023-10-17 11:10 | Pharmacy Report ---
Pharmacy Glycemic Short Note 2 - Date of Service October 17, 2023 - Glycemic Short BSG Results (Last 24 hours): 10/16/23 10/16/23 10/16/23 11:10 16:42 21:08 POC Glucose 181 H 158 H 158 H 10/17/23 07:31 POC Glucose 174 H OUTPATIENT ANTIDIABETIC REGIMEN: * Basaglar 10 units SQ HS * Jardiance 10mg daily * metformin 2000mg QAM * Ozempic 1mg Qwk * HbA1c 7.2% (10/05/23) ASSESSMENT: 10/17/23: * Barbie received 43 units of insulin yesterday (15 were basal) * Fasting BSG this AM acceptable, continue current basal regimen. * No changes to Novolog at this time, no glycemic stressors noted. 10/15/23: * Code purple last evening following administration of IV dexamethasone, ultimately transferred to [facility] * Patient is currently NPO and dexamethasone has been placed on hold * Blood sugars elevated, but trending down now that steroids are discontinued and NPO * Will utilize scaled basal dose this evening 10/14/23: * Barbie is a 67 YOF status post C5-C7 anterior cervical discectomy and fusion with a history of Type 2 diabetes mellitus. Pharmacy has been consulted to assist with glycemic management while inpatient. * Preoperative BSG above goal range, will give approximately 0.4 units/kg adjusted body weight now x1 to cover preoperative dexamethasone 8mg IV * Ongoing dexamethasone 6mg IV x3 ordered, will add basal insulin twice daily at a weight based stress of 2 or 3 based on BSG (hold if below goal range) * Novolog initiated at a weight based stress of 3, overnight checks added to prevent significant steroid induced hyperglycemia. PLAN FOR INPATIENT GLYCEMIC CONTROL: * Hold outpatient oral diabetes medications * Basal insulin * Lantus 10-15 units SC HS (see EHR for details) * Bolus insulin * NovoLog per scale ACHS or Q6hrs while NPO * Goal Range: Low 110 mg/dL - High 140 mg/dL * Correction Factor: 20 mg/dL/unit * Nutritional / Prandial insulin per carb ratio of 1 unit per 5 grams CHO consumed
[2023-10-17] MEDS: WARFARIN SOD 7.5 MG TAB PO SCH (15:17)
--- NOTE | 2023-10-17 16:02 | Hospitalist Progress Note ---
Date of Service October 17, 2023 Assessment & Plan (1) Myelopathy concurrent with and due to spinal stenosis of cervical region: Plan Myelopathy concurrent with and due to spinal stenosis of cervical region: POD#3 C5-C7 ACDF by Dr. Wilkinson Activity and wound care orders as per ortho Pain control with bowel regimen PT/OT Monitor H/H for acute blood loss anemia and transfuse blood products PRN LUE and BLE weakness on 10/13 per pt, improved by 8/10 am bedside exam per pt. Continue to monitor. Elevated troponin Reaction to decadron Pt had code purple on 10/13 evening after iv decadron, had trouble breathing/ringing in ears/shakiness/tingliness/Heart rate in 140s /chest tightness --> lopressor 2.5 mg iv was given w/ some improvement in HR. Pt reports symptoms getting better after about 20 minutes. Troponin was drawn, uptrended. Repeat EKG w/ Sinus tach and chronic RBBB and LAFB. ECHO w/ EF of 55-60%, mild concentric LVH. Non dilated cardiac chambers. Pt w/ no further chest /breathing symptoms. Elevated trop likely 2/2 demand ischemia iso tachy due to reaction to Decadron. Cardio evaled, appreciate recs. Patient with no chest pressure or pain. HO Deep vein thrombosis: HO Pulmonary embolism: Discussed with surgery 10/15, started anticoagulation 10/15. Close monitoring of her symptoms and H&H. Daily PT/INR. Lovenox bridge Until PT/INR are therapeutic. Patient will need to follow-up with Coumadin clinic closely upon discharge. Diabetes mellitus, type 2: Hold home metformin, Jardiance, Ozempic. Glycemic pharmacy consulted by spine Ortho. HgbA1c 6.5 09/2023 PSVT (paroxysmal supraventricular tachycardia): Rate controlled on verapamil and metoprolol Asthma: Appears stable, no signs of acute exacerbation. Continue home inhaler Seronegative polyarthritis: managed with weekly methotrexate, continue Sleep apnea: CPAP as per home settings GERD (gastroesophageal reflux disease): Continue PPI and H2 tracie DVT PROPHYLAXIS: TEDs/SCDs as per spine Ortho Dispo: Will need lovenox bridge at dc depending on pt/inr. Admission and Anticipated Discharge Date Admission Date: October 14, 2023 Subjective Patient was seen and examined at bedside. Patient was lying in bed, on room air, NAD, resting comfortably. Patient reports eating okay, denies weakness of left upper and lower extremity. Denies chest pressure. No new acute event overnight per pt. Physical Exam Physical Exam: oriented x 3 , not in distress, speaks in sentences with no effort nor accessory muscle use neck: dressing and drain in place, no active bleeding tachycardic in 90s, regular rhythm, no murmurs clear breath sounds bilaterally non distended, soft, nontender no bipedal edema, erythema, warmth no neuro deficits Results & Data Results & Data Vital Signs (Past 12 Hours) Vital Signs Temp Pulse Resp BP Pulse Ox O2 Del Method 10/17/23 15:37 36.9 C 93 H 16 119/75 92 Room Air 10/17/23 08:51 Room Air, CPAP 10/17/23 07:14 36.7 C 102 H 16 125/76 96 Room Air
--- NOTE | 2023-10-18 08:09 | Orthopedic Progress Note ---
Date of Service October 18, 2023 Assessment & Plan (1) Myelopathy concurrent with and due to spinal stenosis of cervical region: Plan: Today we will continue with OT PT. Plan for discharge home tomorrow with home health. Admission and Anticipated Discharge Date Admission Date: October 14, 2023 Subjective Patient's pain is controlled. She feels her strength is still limited but improving. She is tolerating physical therapy. Physical Exam Physical Exam: Patient is seen with bedside. 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 Results & Data Vital Signs (Past 12 Hours) Vital Signs Temp Pulse Resp BP Pulse Ox O2 Del Method 10/18/23 07:12 36.8 C 89 16 124/78 93 Room Air 10/17/23 21:45 Room Air, CPAP 10/17/23 20:28 36.4 C L 86 18 111/73 95 Room Air Queries Orthopedic Spine Obesity: Yes
[2023-10-18 08:14] LABS: Hemoglobin 12.1 g/dl (12.0-16.0); Mean Corpuscular Hgb Conc 31.8 g/dL (32.0-36.0); Mean Corpuscular Volume 100.5 fL (80.0-100.0); Mean Platelet Volume 10.4 fL (9.4-12.4); Platelet Count 292 K/uL (130-400); RDW Coefficient of Variation 15.4 % (11.5-14.5); RDW Standard Deviation 56.8 fL (36.4-46.3); Red Blood Count 3.78 M/uL (4.20-5.40); White Blood Count 7.95 K/ul (4.8-10.8)
[2023-10-18 08:36] LABS: INR 1.3 (0.9-1.1); Prothrombin Time 14.2 Seconds (9.0-12.0)
--- NOTE | 2023-10-18 16:31 | Hospitalist Progress Note ---
Date of Service October 18, 2023 Assessment & Plan (1) Myelopathy concurrent with and due to spinal stenosis of cervical region: Plan Myelopathy concurrent with and due to spinal stenosis of cervical region: POD#4 C5-C7 ACDF by Dr. Wilkinson Activity and wound care orders as per ortho Pain control with bowel regimen PT/OT Monitor H/H for acute blood loss anemia and transfuse blood products PRN LUE and BLE weakness on 10/13 per pt, improved by 8/10 am bedside exam per pt. Continue to monitor. Elevated troponin Reaction to decadron Pt had code purple on 10/13 evening after iv decadron, had trouble breathing/ringing in ears/shakiness/tingliness/Heart rate in 140s /chest tightness --> lopressor 2.5 mg iv was given w/ some improvement in HR. Pt reports symptoms getting better after about 20 minutes. Troponin was drawn, uptrended. Repeat EKG w/ Sinus tach and chronic RBBB and LAFB. ECHO w/ EF of 55-60%, mild concentric LVH. Non dilated cardiac chambers. Pt w/ no further chest /breathing symptoms. Elevated trop likely 2/2 demand ischemia iso tachy due to reaction to Decadron. Cardio evaled, appreciate recs. Patient with no chest pressure or pain. HO Deep vein thrombosis: HO Pulmonary embolism: Discussed with surgery 10/15, started anticoagulation 10/15. Close monitoring of her symptoms and H&H. Daily PT/INR. Lovenox bridge Until PT/INR are therapeutic. Patient will need to follow-up with Coumadin clinic closely upon discharge. Diabetes mellitus, type 2: Hold home metformin, Jardiance, Ozempic. Glycemic pharmacy consulted by spine Ortho. HgbA1c 6.5 09/2023 PSVT (paroxysmal supraventricular tachycardia): Rate controlled on verapamil and metoprolol Asthma: Appears stable, no signs of acute exacerbation. Continue home inhaler Seronegative polyarthritis: managed with weekly methotrexate, continue Sleep apnea: CPAP as per home settings GERD (gastroesophageal reflux disease): Continue PPI and H2 tracie DVT PROPHYLAXIS: see below Dispo: Will need lovenox bridge at dc depending on pt/inr. Admission and Anticipated Discharge Date Admission Date: October 14, 2023 Subjective Patient was seen and examined at bedside. Patient was lying in bed, on room air, NAD, resting comfortably. Patient reports eating okay, denies weakness of left upper and lower extremity. Denies chest pressure. No new acute event overnight per pt. Physical Exam Physical Exam: oriented x 3 , not in distress, speaks in sentences with no effort nor accessory muscle use neck: dressing and drain in place, no active bleeding tachycardic in 90s, regular rhythm, no murmurs clear breath sounds bilaterally non distended, soft, nontender no bipedal edema, erythema, warmth no neuro deficits Results & Data Results & Data Vital Signs (Past 12 Hours) Vital Signs Temp Pulse Pulse Resp BP Pulse Ox O2 Del Method 10/18/23 15:16 36.6 C 91 H 16 110/73 97 Room Air 10/18/23 07:12 36.8 C 89 16 124/78 93 Room Air
[2023-10-18] MEDS: LANTUS PER UNIT CHARGE SC SCH (20:31)
[2023-10-19 07:35] LABS: Hematocrit (blood only) 35.6 % (37.0-47.0); Hemoglobin 11.3 g/dl (12.0-16.0); Mean Corpuscular Hemoglobin 31.6 pg (25.0-34.0); Mean Corpuscular Hgb Conc 31.7 g/dL (32.0-36.0); Mean Corpuscular Volume 99.4 fL (80.0-100.0); Mean Platelet Volume 10.4 fL (9.4-12.4); Platelet Count 282 K/uL (130-400); RDW Coefficient of Variation 15.6 % (11.5-14.5); RDW Standard Deviation 56.8 fL (36.4-46.3); Red Blood Count 3.58 M/uL (4.20-5.40); White Blood Count 7.37 K/ul (4.8-10.8)
[2023-10-19 07:52] LABS: Creatinine Clr Calc Pharmacy 109.3 ml/min; Est GFR (African American) 106.7 ml/min; Est GFR (Non-African American) 92.1 ml/min
[2023-10-19 08:04] LABS: INR 1.4 (0.9-1.1); Prothrombin Time 15.1 Seconds (9.0-12.0)
--- NOTE | 2023-10-19 10:56 | Orthopedic Progress Note ---
Date of Service October 19, 2023 Assessment & Plan (1) Myelopathy concurrent with and due to spinal stenosis of cervical region: Plan: This point we will continue another day of physical therapy and plan for discharge home tomorrow with home health. Admission and Anticipated Discharge Date Admission Date: October 14, 2023 Subjective Patient is stable with modest improvement of her leg symptoms. Arm symptoms still present. She is tolerating therapy. Physical Exam Physical Exam: Patient is in the chair at the bedside. She is comfortable. She has reasonable strength testing upper extremities and lower extremities. She is tolerating therapy. Results & Data Vital Signs (Past 12 Hours) Vital Signs O2 Del Method 10/19/23 10:00 Room Air, CPAP Queries Orthopedic Spine Obesity: Yes
--- NOTE | 2023-10-19 13:06 | Pharmacy Report ---
Pharmacy Glycemic Short Note 2 - Date of Service October 19, 2023 - Glycemic Short BSG Results (Last 24 hours): 10/18/23 10/18/23 10/19/23 16:24 19:59 07:37 POC Glucose 196 H 188 H 136 H 10/19/23 11:33 POC Glucose 180 H OUTPATIENT ANTIDIABETIC REGIMEN: * Basaglar 10 units SQ HS * Jardiance 10mg daily * metformin 2000mg QAM * Ozempic 1mg Qwk * HbA1c 7.2% (10/05/23) ASSESSMENT: 10/19/23: * Patient received total of 52 units of insulin yesterday, of which 15 units were basal * Fasting BSG 136 mg/dL - will continue same basal * BSGs rising yesterday throughout the day as patient eats, will tighten CR 10/17/23: * Barbie received 43 units of insulin yesterday (15 were basal) * Fasting BSG this AM acceptable, continue current basal regimen. * No changes to Novolog at this time, no glycemic stressors noted. 10/15/23: * Code purple last evening following administration of IV dexamethasone, ultimately transferred to [facility] * Patient is currently NPO and dexamethasone has been placed on hold * Blood sugars elevated, but trending down now that steroids are discontinued and NPO * Will utilize scaled basal dose this evening 10/14/23: * Barbie is a 67 YOF status post C5-C7 anterior cervical discectomy and fusion with a history of Type 2 diabetes mellitus. Pharmacy has been consulted to assist with glycemic management while inpatient. * Preoperative BSG above goal range, will give approximately 0.4 units/kg adjusted body weight now x1 to cover preoperative dexamethasone 8mg IV * Ongoing dexamethasone 6mg IV x3 ordered, will add basal insulin twice daily at a weight based stress of 2 or 3 based on BSG (hold if below goal range) * Novolog initiated at a weight based stress of 3, overnight checks added to prevent significant steroid induced hyperglycemia. PLAN FOR INPATIENT GLYCEMIC CONTROL: * Hold outpatient oral diabetes medications * Basal insulin * Lantus 15 units HS * Bolus insulin * NovoLog per scale ACHS or Q6hrs while NPO * Goal Range: Low 110 mg/dL - High 140 mg/dL * Correction Factor: 20 mg/dL/unit * Nutritional / Prandial insulin per carb ratio of 1 unit per 4 grams CHO consumed
[2023-10-19 15:58] VITALS: RESP 18
--- NOTE | 2023-10-19 16:18 | Hospitalist Progress Note ---
Date of Service October 19, 2023 Assessment & Plan (1) Myelopathy concurrent with and due to spinal stenosis of cervical region: Plan Myelopathy concurrent with and due to spinal stenosis of cervical region: POD#4 C5-C7 ACDF [address] Dr. Wilkinson Activity and wound care orders as per ortho Pain control with bowel regimen PT/OT Monitor H/H for acute blood loss anemia and transfuse blood products PRN LUE and BLE weakness on 10/13 per pt, improved by 8/10 am bedside exam per pt. Continue to monitor. Remains medically stable with improvement of Neuropathic symptoms Elevated troponin Reaction to decadron Pt had code purple on 10/13 evening after iv decadron, had trouble breathing/ringing in ears/shakiness/tingliness/Heart rate in 140s /chest tightness --> lopressor 2.5 mg iv was given w/ some improvement in HR. Pt reports symptoms getting better after about 20 minutes. Troponin was drawn, uptrended. Repeat EKG w/ Sinus tach and chronic RBBB and LAFB. ECHO w/ EF of 55-60%, mild concentric LVH. Non dilated cardiac chambers. Pt w/ no further chest /breathing symptoms. Elevated trop likely 2/2 demand ischemia iso tachy due to reaction to Decadron. Cardio evaled, appreciate recs. Patient with no chest pressure or pain. HO Deep vein thrombosis: HO Pulmonary embolism: Discussed with surgery 10/15, started anticoagulation 10/15. Close monitoring of her symptoms and H&H. Daily PT/INR. Lovenox bridge Until PT/INR are therapeutic. Patient will need to follow-up with Coumadin clinic closely upon discharge. INR remains low at 1.4 and will continue current Coumadin doses Will monitor INR Diabetes mellitus, type 2: Hold home metformin, Jardiance, Ozempic. Glycemic pharmacy consulted by spine Ortho. HgbA1c 6.5 09/2023 PSVT (paroxysmal supraventricular tachycardia): Rate controlled on verapamil and metoprolol Asthma: Patient is appears stable, no signs of acute exacerbation. Continue home inhaler Seronegative polyarthritis: managed with weekly methotrexate, continue Sleep apnea: CPAP as per home settings GERD (gastroesophageal reflux disease): Continue PPI and H2 tracie DVT PROPHYLAXIS: see below Dispo: Will need lovenox bridge at al depending on pt/inr. Admission and Anticipated Discharge Date Admission Date: October 14, 2023 Subjective 10/19/2023 The patient was seen and examined in medical floor She has been feeling much better and getting physical therapy Complains to minimal numbness involving the left upper and lower extremities which has been improving Review of Systems Review of Systems: All systems reviewed and are unremarkable except as noted below Physical Exam Physical Exam: Sitting at the edge of the bed without any acute distress Constitutional: well developed, well nourished and + obese; not ill appearing Eyes: PERRL, conjunctivae normal, anicteric sclerae ENMT: external ear and nose normal, oropharynx normal Neck: trachea midline, no thyromegaly Respiratory: no respiratory distress Auscultation: lungs clear to auscultation bilaterally Cardiovascular: Rate/Rhythm: regular rate and regular rhythm; not tachycardic Heart Sounds: normal S1 and normal S2; no murmur Extremities: + edema (Trace edema bilaterally) Gastrointestinal (Abdomen): Inspection/Auscultation: normal bowel sounds; abdomen not distended Percussion/Palpation: abdomen soft; abdomen nontender Musculoskeletal: No acute arthritis involving any of the joints Neurologic: normal touch/pain/proprioception and moves all extremities; no focal motor deficits Psychiatric: A+Ox3, euthymic affect Lymphatic: no cervical or axillary lymphadenopathy Results & Data Results & Data Vital Signs (Past 12 Hours) Vital Signs Temp Pulse Pulse Resp BP Pulse Ox O2 Del Method 10/19/23 15:57 36.7 C 92 H 18 121/75 98 Room Air 10/19/23 12:35 37.5 C 98 H 17 123/73 96 Room Air 10/19/23 10:00 Room Air, CPAP 10/19/23 08:00 36.6 C 94 H 17 126/74 96 Room Air Laboratory Results Short CBC 10/19/23 Range/Units 07:02 WBC 7.37 (4.8-10.8) K/ul Hgb 11.3 L (12.0-16.0) g/dl Hct 35.6 L (37.0-47.0) % Plt Count 282 (130-400) K/uL BMP 10/19/23 07:02 Creatinine 0.66 Medications Administered Current Inpatient Medications Acetaminophen (Acetaminophen 500 Mg Tab) 1,000 mg PO Q8H PRN PRN Reason: MILD Pain Scale 1,2,3 & Pre PT Stop: 11/13/23 12:34 Last Admin: 10/19/23 01:33 Dose: 1,000 mg Al Hydrox/Mg Hydrox/Simethicone (Aluminum/Magnesium Susp 30 Ml Udc) 30 ml PO Q6H PRN PRN Reason: Dyspepsia Stop: 11/13/23 12:34 Albuterol (Albuterol Hfa 8 Gm Inhaler) 2 puffs INH Q4H PRN PRN Reason: Wheezing Stop: 11/13/23 12:34 Artificial Tears (Artificial Tears) 1 drops OP QID PRN PRN Reason: Dryness Stop: 11/13/23 13:30 Aspirin (Aspirin 81 Mg Ectab) 81 mg PO [facility] Stop: 11/14/23 08:59 Last Admin: 10/19/23 08:32 Dose: 81 mg Atorvastatin Calcium ([facility]atin 20 Mg Tab) [facility]: 11/14/23 08:59 Last Admin: 10/19/23 08:32 Dose: 20 mg Bisacodyl (Bisacodyl 10 Mg Supp) 10 mg SC DAILY PRN PRN Reason: Constipation Stop: 11/13/23 12:34 Bupropion HCl (Bupropion Xl 150 Mg Tabcr) 150 mg PO [facility] Stop: 11/14/23 08:59 Last Admin: 10/19/23 08:33 Dose: 150 mg Diphenhydramine HCl (Diphenhydramine Capsule 25 Mg Cap) 25 mg PO Q6H PRN PRN Reason: Allergic Rhinitis/Insomnia Stop: 11/13/23 12:34 Enoxaparin Sodium (Enoxaparin Inj 120 Mg/0.8 Ml Syr) 120 mg SQ Q12 [facility] Stop: 11/15/23 10:44 Last Admin: 10/19/23 08:34 Dose: 120 mg Epinephrine (Racepinephrine 2.25% Nebu Soln 0.5 Ml Vial) 0.5 ml INH NOW PRN PRN Reason: If stridor present Escitalopram Oxalate (Escitalopram Oxalate 20 Mg Tab) [facility] Stop: 11/14/23 08:59 Last Admin: 10/19/23 08:38 Dose: 20 mg Famotidine (Famotidine 20 Mg Tab) 20 mg PO Q12H PRN PRN Reason: Dyspepsia Stop: 11/13/23 12:34 Famotidine (Famotidine 40 Mg Tablet) 40 mg PO HS [facility] Stop: 11/13/23 20:59 Last Admin: 10/18/23 20:18 Dose: 40 mg Ferrous Sulfate (Ferrous Sulfate 325 Mg Tab) 325 mg PO QPM [facility] Stop: 11/13/23 20:59 Last Admin: 10/18/23 20:18 Dose: 325 mg Furosemide (Furosemide 20 Mg Tab) 20 mg PO QAM PRN PRN Reason: Edema Stop: 11/13/23 12:34 Hydromorphone HCl (Hydromorphone Inj 0.5 Mg/0.5 Ml Syr) 0.5 mg IV Q3H PRN PRN Reason: MODERATE Pain (Scale 4,5,6) & Pre PT Stop: 10/28/23 12:34 Hydroxyzine HCl (Hydroxyzine Hcl 25 Mg Tab) 25 mg PO Q8H PRN PRN Reason: Anxiety Stop: 11/13/23 12:34 Dexamethasone 8 mg/ Syringe 2 mls @ 1 mls/min IV NOW PRN PRN Reason: If stridor present Lorazepam 0.5 mg/ Syringe 0.5 mls @ 2 mls/min IV Q8H PRN; Protocol PRN Reason: Sedation/Anxiety Stop: 11/13/23 12:34 Promethazine HCl (Phenergan) 12.5 mg in 50.5 mls @ 202 mls/hr IV Q6H PRN PRN Reason: Nausea And Vomiting Stop: 11/13/23 12:34 Dexamethasone 6 mg/ Syringe 1.5 mls @ 1 mls/min IV Q8H [facility] Last Admin: 10/14/23 21:22 Dose: 1 mls/min Influenza Virus Vaccine Quadrival (Do Not Administer Flu Vaccine) 1 each N/A PRN PRN PRN Reason: Notification Stop: 11/13/23 12:34 Insulin Aspart (Insulin Aspart Per Unit Charge) 0 units SC [facility] Stop: 11/13/23 16:29 Last Admin: 10/19/23 12:47 Dose: 6 units Insulin Glargine (Lantus Per Unit Charge) 15 units SC HS [facility] Stop: 11/17/23 20:59 Last Admin: 10/18/23 20:31 Dose: 15 units Leucovorin Calcium (Leucovorin Calcium 5 Mg Tab) 5 mg PO Sa@0900 [facility] Stop: 11/14/23 08:59 Lorazepam (Lorazepam 0.5 Mg Tab) 0.5 mg PO Q8H PRN PRN Reason: Sedation/Anxiety Stop: 11/13/23 12:34 Magnesium Chloride (Magnesium Chloride W/Calcium 64mg Delayed Rel Tab) 192 mg PO BID@0800,1700 [facility] Stop: 11/13/23 16:59 Last Admin: 10/19/23 08:29 Dose: 192 mg Magnesium Chloride (Magnesium Chloride W/Calcium 64mg Delayed Rel Tab) 128 mg PO HS [facility] Stop: 11/13/23 20:59 Last Admin: 10/18/23 20:16 Dose: 128 mg Magnesium Hydroxide (Magnesium Hydroxide Susp 30 Ml Udc) 30 ml PO Q24H PRN PRN Reason: Constipation Stop: 11/13/23 12:34 Last Admin: 10/17/23 08:33 Dose: 30 ml Medroxyprogesterone Acetate (Medroxyprogesterone Acetate 10 Mg Tab) 10 mg PO QAM [facility] Stop: 11/14/23 08:59 Last Admin: 10/19/23 08:38 Dose: 10 mg Menthol (Cough Drop (Sugar Free) Nguyễn 24 Nguyễn/1 Box) 1 nguyễn BUCCAL Q6H PRN PRN Reason: Sore Throat Stop: 11/13/23 20:44 Last Admin: 10/14/23 21:18 Dose: 1 nguyễn Metoprolol Tartrate (Metoprolol Tartrate 25 Mg Tab) 12.5 mg PO BIDM [facility] Stop: 11/13/23 16:59 Last Admin: 10/19/23 08:29 Dose: 12.5 mg Miscellaneous Information (Pharmacy Glycemic Mgmt Consult) 1 each N/A UD PRN PRN Reason: Consult Stop: 11/13/23 12:34 Montelukast Sodium (Montelukast Sodium 10 Mg Tablet) 10 mg PO [facility] Stop: 11/13/23 20:59 Last Admin: 10/18/23 20:16 Dose: 10 mg Multivitamins (Multivitamin Tab) 1 tab PO QAM [facility] Stop: 11/14/23 08:59 Last Admin: 10/19/23 08:38 Dose: 1 tab Naloxone HCl (Naloxone Hcl 0.4 Mg/1 Ml Vial/Carp) 0.1 mg IV Q5M PRN PRN Reason: Oversedation/Resp depression Stop: 11/13/23 12:34 Advair Hfa 230-21 Mcg/Actuation - Non- Formulary Patient's Own Med 2 each INH BID [facility] Stop: 11/14/23 20:59 Last Admin: 10/19/23 08:38 Dose: 2 puffs Ondansetron HCl (Ondansetron Inj 2 Mg/Ml 2 Ml Vial) 4 mg IV Q6H PRN PRN Reason: Nausea &/or Vomiting Stop: 11/13/23 12:34 Ondansetron HCl (Ondansetron 4 Mg Od Tab) 4 mg PO Q6H PRN PRN Reason: Nausea Stop: 11/13/23 12:34 Oxycodone HCl (Oxycodone Hcl Ir 5 Mg Tab (Immediate Release)) 5 - 10 mg PO Q4H PRN PRN Reason: Pain & Pre PT Stop: 10/28/23 12:34 Last Admin: 10/19/23 09:28 Dose: 5 mg Pantoprazole Sodium (Pantoprazole 40 Mg Tab) 40 mg PO QAM [facility] Stop: 11/14/23 08:59 Last Admin: 10/19/23 08:39 Dose: 40 mg Pneumococcal Polyvalent Vaccine (Do Not Administer Pneumococcal Vaccine) 1 each N/A PRN PRN PRN Reason: Notification Stop: 11/13/23 12:34 Ropinirole HCl (Ropinirole Hcl 0.25 Mg Tablet) 0.5 mg PO HS PRN PRN Reason: Restless Leg(S) Stop: 11/13/23 12:34 Last Admin: 10/17/23 07:45 Dose: 0.5 mg Senna/Docusate Sodium (Docusate Sodium/Senna 50/8.6mg Tab) 2 tab PO HS [facility] Stop: 11/13/23 20:59 Last Admin: 10/18/23 20:15 Dose: 2 tab Sodium Biphosphate/Sodium Phosphate (Sod Phosphate/Sod Biphosphate Enema 132 Ml Btl) 132 ml SC ONE PRN PRN Reason: Constipation Stop: 11/13/23 12:34 Tramadol HCl (Tramadol Hcl 50 Mg Tablet) 50 - 100 mg PO Q4H PRN PRN Reason: Moderate-Severe pain & Pre PT Stop: 11/13/23 12:34 Last Admin: 10/17/23 04:40 Dose: 100 mg Verapamil HCl (Verapamil Hcl 120 Mg Tabcr) 120 mg PO TID [facility] Stop: 11/13/23 13:59 Last Admin: 10/19/23 13:50 Dose: 120 mg Vitamin B Complex (Vitamin B Complex Tab) 1 tab PO QAM [facility] Stop: 11/14/23 08:59 Last Admin: 10/19/23 08:40 Dose: 1 tab Warfarin Sodium (Warfarin Sod 5 Mg Tab) 5 mg PO [id number] [facility] Stop: 11/15/23 15:59 Last Admin: 10/16/23 16:47 Dose: 5 mg Warfarin Sodium (Warfarin Sod 7.5 Mg Tab) 7.5 mg PO [id number] [facility] Stop: 11/16/23 15:59 Last Admin: 10/18/23 15:15 Dose: 7.5 mg
[2023-10-20 06:01] LABS: Basophils # (auto) 0.07 K/uL (0.00-0.20); Basophils % (auto) 0.8 %; Eosinophils # (auto) 0.21 K/uL (0.00-0.50); Eosinophils % (auto) 2.5 %; Hematocrit (blood only) 36.6 % (37.0-47.0); Hemoglobin 11.3 g/dl (12.0-16.0); Immature Granulocytes # (auto) 0.32 K/uL (0.01-0.20); Immature Granulocytes % (auto) 3.8 %; Lymphocytes # (auto) 1.45 K/uL (1.20-3.40); Lymphocytes % (auto) 17.3 %; Mean Corpuscular Hemoglobin 31.5 pg (25.0-34.0); Mean Corpuscular Hgb Conc 30.9 g/dL (32.0-36.0); Mean Corpuscular Volume 101.9 fL (80.0-100.0); Mean Platelet Volume 10.1 fL (9.4-12.4); Monocytes # (auto) 1.08 K/uL (0.11-0.59); Monocytes % (auto) 12.9 %; Neutrophils # (auto) 5.26 K/uL (1.40-6.50); Neutrophils % (auto) 62.7 %; Platelet Count 304 K/uL (130-400); RDW Coefficient of Variation 15.3 % (11.5-14.5); RDW Standard Deviation 57.3 fL (36.4-46.3); Red Blood Count 3.59 M/uL (4.20-5.40); White Blood Count 8.39 K/ul (4.8-10.8)
[2023-10-20 06:17] LABS: BUN Creatinine Ratio 16.2 (10-20); Calcium 8.7 mg/dl (8.6-10.3); Creatinine Clr Calc Pharmacy 97.5 ml/min; Est GFR (African American) 97.8 ml/min; Est GFR (Non-African American) 84.4 ml/min; Potassium 3.8 mmol/L (3.5-5.1)
[2023-10-20 06:26] LABS: INR 1.4 (0.9-1.1); Prothrombin Time 14.3 Seconds (9.0-12.0)
[2023-10-20 07:22] VITALS: TEMP 98.1; O2SAT 97
--- NOTE | 2023-10-20 08:21 | Discharge Summary ---
Date of Service October 20, 2023 Admission HPI Per Admitting Provider This is a 67-year-old female who presents with worsening neck and arm symptoms after failing course of nonoperative care is here for surgical intervention. Principal Diagnosis Cervical spinal stenosis with myelopathy Discharge Data Allergies Allergy/AdvReac Type Severity Reaction Status Date / Time allopurinol Allergy Intermediate Unknown Verified 10/14/23 06:46 amitriptyline Allergy Intermediate Arms, leg Verified 10/14/23 06:46 swelling codeine Allergy Intermediate Pruritus, Verified 10/14/23 06:46 rash doxepin Allergy Intermediate Arms, leg Verified 10/14/23 06:46 swelling gabapentin Allergy Intermediate Arms, leg Verified 10/14/23 06:46 swelling sitagliptin Allergy Intermediate Arms, leg Verified 10/14/23 06:46 swelling mineral oil [From Vagisil] Allergy Mild Rash Verified 10/14/23 06:46 nickel Allergy Mild Rash Verified 10/14/23 06:46 potassium chloride Allergy Mild Pruritus, Verified 10/14/23 06:46 [From Klor-Con] rash resorcinol [From Vagisil] Allergy Mild Rash Verified 10/14/23 06:46 starch [From Vagisil] Allergy Mild Rash Verified 10/14/23 06:46 Tricyclic Antidepressants Allergy Unknown leg and Verified 10/14/23 14:20 and Tricy arm swelling clindamycin Allergy Unknown Verified 10/14/23 07:14 fluticasone furoate Allergy Swelling Verified 10/14/23 06:46 [From Breo Ellipta] of Lip/Tongue/Throat vilanterol Allergy Swelling Verified 10/14/23 06:46 [From Breo Ellipta] of Lip/Tongue/Throat adhesive AdvReac Intermediate Rash, Verified 10/14/23 06:46 itching (tape) dexamethasone [From Decadron] AdvReac Intermediate Tachycardia Verified 10/16/23 07:30 erythromycin base AdvReac Intermediate Severe Verified 10/14/23 06:46 stomach cramps Consultations 10/14/23 12:35 Consult Hospitalist Routine 10/15/23 08:00 Consult Cardiology Routine Procedures Performed Operation Date: 10/14/23 07:45 Actual Procedures p C5-C7 Anterior Cervical Discectomy and Fusion, C4-C5 with C6 Corpectomy, Spinal Cord Monitoring(Not Applicable) - Tera Wilkinson DO Ordered Studies 10/14/23 07:45 FL cervical 2-3V Routine Hospital Course (1) Myelopathy concurrent with and due to spinal stenosis of cervical region: Patient underwent cervical decompression fusion for myeloradiculopathy. Postoperatively she had a reaction to Decadron. She did improve. She is struggling with some weakness to the left arm and left leg. However responding to occupational physical therapy. Pain is controlled. She is subsequently discharged home with home health. Disorders instructions from chart for further view. Total Time Total Time Spent Total Time Spent (In Minutes): 20 minutes Discharge Plan Discharge Items Patient Disposition: Home - Home Health Services Reason For Visit: Cervical Disc Disease, Cervical Spondylosis, Cervi Discharge Diagnosis: Cervical spinal stenosis with myeloradiculopathy Activity: As commented below Non-emergency contact: Primary Care Provider Call non-emergency contact if: you have any medication questions Follow-up/Referrals: Landon Quiles DO [Primary Care Provider] - (Date & Time 10/24/2023 11:00 AM Provider Landon Quiles DO [facility] ) Diet: Regular Addtl Attending Provider Instructions: ACTIVITY RECOMMENDATIONS: SELF CARE INSTRUCTIONS AFTER CERVICAL FUSIONS 1. No smoking. Smoking drastically decreases the chance of a solid fusion. 2. No bending, lifting more than 5 pounds, or twisting (roll like a log when turning in bed). 3. You may shower 3 days after surgery. Thoroughly dry wound. Do not soak in the tub. 4. Cervical collar: Must be worn at all times including sleeping. You may remove the brace only to bath, eat and if you are sitting in a recliner. 5. Please walk as much as you can for exercise. Gradually increase the distance that you walk as your endurance increases. SPECIAL CARE INSTRUCTIONS: VERY IMPORTANT TO READ AND REVIEW A. Do not take any anti-inflammatory medications (i.e. Indocin, Advil, Aspirin, Naprosyn, Aleve, Motrin, etc.) as these may inhibit the chance of a solid fusion. Tylenol is okay to take. B. Your surgical incision has been closed with a cosmetic suture under the skin that will dissolve in about 6 weeks. In 14 days, you can use a pair of clean scissors and cut the suture that is left outside of the skin at the ends of your incision. C. Complications are uncommon, but please contact us if you have any signs or symptoms of: 1. wound infection (fever higher than 102.5 degrees F, redness, separation of wound, drainage, or increasing pain from the incision) 2. blood clots in legs (pain, swelling, redness and warmth in legs) 3. urinary tract infection (fever higher than 102.5 degrees, burning upon urination or increased frequency of urination) 4. nerve problems (inability to walk on your toes or heels, numbness, loss of bowel or bladder control) 5. any other symptoms that concern you. D. Please call the office at if you have any concerns or questions about your operation or recovery. MANAGING PAIN AFTER SPINAL SURGERY 1. Narcotic medication is intended for short-term use and will be provided for surgical pain. Surgical pain usually lasts for a period of 4-6 weeks. Narcotic medication includes Percocet, Vicodin, Darvocet, Tylenol #3 or Lortab. 2. Longer-term pain is more appropriately treated with non-narcotic medication such as Tylenol ES. 3. Muscle spasm is not appropriately treated with narcotics. Muscle relaxers such as Soma, Flexeril or Skelaxin can be used along with Tylenol ES. 4. Remember that we all live with some "aches and pains". This is not unusual or uncommon after an injury or as we get older. 5. We will provide appropriate medication within the normal guidelines of their prescribed use. We will also be very cautious and aware of potential abuse and extended duration of patients' medication needs. 6. Please allow 2-3 days to process refills. Prescriptions will not be mailed but must be picked up at the office. FOLLOW UP VISIT: Keep your scheduled follow-up appointment. Any questions, please call the office at . Pending Studies at Discharge: No Stand-Alone Forms: My [employer], Smoking Cessation Medications and DC Order Prescriptions: New tramadol 50 mg tablet 50 mg PO Q6H PRN (Reason: pain, moderate) Qty: 30 0RF oxycodone 5 mg tablet 5 mg PO Q6H PRN (Reason: pain) Qty: 30 0RF Continued ondansetron 4 mg tablet,disintegrating 4 mg PO Q8H PRN (Reason: nausea and vomiting) Qty: 7 0RF magnesium chloride 64 mg Tablet,Delayed Release (Dr/Ec) 128 - 192 mg PO TID Rx Instructions: TAKES 3 TABS-192 MG WITH BREAKFAST AND DINNER, THEN 2 TABS-128 MG AT HS. atorvastatin 20 mg Tablet 20 mg PO QAM aspirin 81 mg Tablet,Delayed Release (Dr/Ec) 81 mg PO QAM potassium citrate 10 mEq (1,080 mg) Tablet Extended Release See Rx Instructions .ROUTE .COMPLEX Rx Instructions: takes 2tablets qam/3tablets qpm warfarin 5 mg Tablet 5 mg PO 2XWK Rx Instructions: tuesday and metoprolol tartrate 25 mg Tablet 12.5 mg PO BIDM medroxyprogesterone [Provera] 10 mg Tablet 10 mg PO QAM ropinirole 0.5 mg tablet 0.5 mg PO HS PRN (Reason: Restless Leg(S)) acetaminophen 650 mg Tablet Extended Release 1,300 mg PO UD PRN (Reason: Pain) vitamin B complex Tablet 1 tab PO QAM montelukast 10 mg tablet 10 mg PO HS metformin 500 mg tablet extended release 24 hr 2,000 mg PO HS Multivitamin 50 Plus Tablet 1 tab PO QAM verapamil 120 mg tablet extended release 120 mg PO TID ferrous sulfate 325 mg (65 mg iron) Tablet 325 mg PO QPM warfarin 5 mg tablet 7.5 mg PO 5XWK Rx Instructions: tuesday, tuesday, tuesday, tuesday, tuesday leucovorin calcium 5 mg tablet 5 mg PO WK Rx Instructions: ON TUESDAY MORNINGS furosemide 20 mg tablet 20 mg PO QAM PRN (Reason: Edema) escitalopram oxalate 20 mg tablet 20 mg PO QAM biotin 10 mg Tablet 10 mg PO QAM albuterol sulfate [Ventolin HFA] 90 mcg/actuation Hfa Aerosol Inhaler 2 puff INHALATION Q4H PRN (Reason: Wheezing) oxycodone 5 mg tablet 5 mg PO BID PRN (Reason: Pain) cyclosporine [Restasis] 0.05 % Dropperette 1 drp OPHTHALMIC (EYE) Q12H Gemtesa 75 mg tablet 75 mg PO QAM Ozempic 1 mg/dose (4 mg/3 mL) pen injector 1 mg SUBCUT WK Rx Instructions: TAKES ON FRIDAYS bupropion HCl 150 mg Tablet Extended Release 24 Hr 150 mg PO QAM insulin glargine [Basaglar KwikPen U-100 Insulin] 100 unit/mL (3 mL) Insulin Pen 10 unit SUBCUT HS enoxaparin [Lovenox] 120 mg/0.8 mL Syringe 120 mg SUBCUT Q12H famotidine 40 mg tablet 40 mg PO HS lansoprazole 15 mg capsule,delayed release(DR/EC) 15 mg PO DAILY fluticasone propion-salmeterol [Advair HFA] 230-21 mcg/actuation HFA aerosol inhaler 2 inh INHALATION BID Jardiance 25 mg tablet 25 mg PO DAILY Discontinued methotrexate sodium 25 mg/mL solution 25 mg subcut UD Rx Instructions: PATIENT STATES SHE TAKES 8ML ONCE WEEKLY ON TUESDAY EVENINGS Discharge Orders: Discharge Order (Routine); Ordered 10/20/23 Ordered By: Tera Wilkinson Admission Data Admit Date/Time: 10/14/23 10:40 Attending Provider: Tera Wilkinson Admit Provider: Tera Wilkinson Primary Care Provider: Landon Quiles Other Providers: Minoo Leslie; [facility]
--- NOTE | 2023-10-20 12:58 | Hospitalist Progress Note ---
Date of Service October 20, 2023 Assessment & Plan (1) Myelopathy concurrent with and due to spinal stenosis of cervical region: Plan Myelopathy concurrent with and due to spinal stenosis of cervical region: POD#4 C5-C7 ACDF by Dr. Wilkinson Activity and wound care orders as per ortho Pain control with bowel regimen PT/OT Monitor H/H for acute blood loss anemia and transfuse blood products PRN LUE and BLE weakness on 10/13 per pt, improved by 8/10 am bedside exam per pt. Continue to monitor. Remains medically stable with improvement of Neuropathic symptoms Remains stable without any significant symptoms Will be discharged home this afternoon by the primary service Elevated troponin Reaction to decadron Pt had code purple on 10/13 evening after iv decadron, had trouble breathing/ringing in ears/shakiness/tingliness/Heart rate in 140s /chest tightness --> lopressor 2.5 mg iv was given w/ some improvement in HR. Pt reports symptoms getting better after about 20 minutes. Troponin was drawn, uptrended. Repeat EKG w/ Sinus tach and chronic RBBB and LAFB. ECHO w/ EF of 55-60%, mild concentric LVH. Non dilated cardiac chambers. Pt w/ no further chest /breathing symptoms. Elevated trop likely 2/2 demand ischemia iso tachy due to reaction to Decadron. Cardio evaled, appreciate recs. Patient with no chest pressure or pain. Remains hemodynamically stable HO Deep vein thrombosis: HO Pulmonary embolism: Discussed with surgery 10/15, started anticoagulation 10/15. Close monitoring of her symptoms and H&H. Daily PT/INR. Lovenox bridge Until PT/INR are therapeutic. Patient will need to follow-up with Coumadin clinic closely upon discharge. INR remains low at 1.4 and will continue current Coumadin doses Will monitor INR Coumadin will be restarted by the primary service on discharge Diabetes mellitus, type 2: Hold home metformin, Jardiance, Ozempic. Glycemic pharmacy consulted by spine Ortho. HgbA1c 6.5 09/2023 PSVT (paroxysmal supraventricular tachycardia): Rate controlled on verapamil and metoprolol Denies any cardiac symptoms and/or palpitation Asthma: Patient is appears stable, no signs of acute exacerbation. Continue home inhaler Seronegative polyarthritis: managed with weekly methotrexate, continue No acute arthritis involving any of the joint Sleep apnea: CPAP as per home settings GERD (gastroesophageal reflux disease): Continue PPI and H2 tracie DVT PROPHYLAXIS: see below Dispo: Have regular follow-up at the coagulation clinic to adjust your Coumadin dose Admission and Anticipated Discharge Date Admission Date: October 14, 2023 Subjective 10/19/2023 The patient was seen and examined in medical floor She has been feeling much better and getting physical therapy Complains to minimal numbness involving the left upper and lower extremities which has been improving 10/20/2023 The patient was seen and examined in medical floor She has been stable with improved numbness and tingling involving the left-sided extremities Denies any chest pain, palpitation or shortness of breath. No abdominal pain no nausea no vomiting She would like to be discharged this afternoon by the primary service Review of Systems Review of Systems: All systems reviewed and are unremarkable except as noted below Physical Exam Physical Exam: Sitting at the edge of the bed without any acute distress Constitutional: well developed, well nourished and + obese; not ill appearing Eyes: PERRL, conjunctivae normal, anicteric sclerae ENMT: external ear and nose normal, oropharynx normal Neck: trachea midline, no thyromegaly Respiratory: no respiratory distress Auscultation: lungs clear to auscultation bilaterally Cardiovascular: Rate/Rhythm: regular rate and regular rhythm; not tachycardic Heart Sounds: normal S1 and normal S2; no murmur Extremities: + edema (Trace edema bilaterally) Gastrointestinal (Abdomen): Inspection/Auscultation: normal bowel sounds; abdomen not distended Percussion/Palpation: abdomen soft; abdomen nontender Neurologic: normal touch/pain/proprioception and moves all extremities; no focal motor deficits Psychiatric: A+Ox3, euthymic affect Lymphatic: no cervical or axillary lymphadenopathy Results & Data Results & Data Vital Signs (Past 12 Hours) Vital Signs Temp Pulse Resp BP Pulse Ox O2 Del Method 10/20/23 07:19 36.7 C 91 H 18 131/77 97 Room Air, Nasal CPAP Laboratory Results Short CBC 10/20/23 Range/Units 05:21 WBC 8.39 (4.8-10.8) K/ul Hgb 11.3 L (12.0-16.0) g/dl Hct 36.6 L (37.0-47.0) % Plt Count 304 (130-400) K/uL BMP 10/20/23 05:21 Sodium 137 Potassium 3.8 Chloride 108 H Carbon Dioxide 22 BUN 12 Creatinine 0.74 Glucose 201 H Calcium 8.7 Medications Administered Current Inpatient Medications Acetaminophen (Acetaminophen 500 Mg Tab) 1,000 mg PO Q8H PRN PRN Reason: MILD Pain Scale 1,2,3 & Pre PT Stop: 11/13/23 12:34 Last Admin: 10/19/23 01:33 Dose: 1,000 mg Al Hydrox/Mg Hydrox/Simethicone (Aluminum/Magnesium Susp 30 Ml Udc) 30 ml PO Q6H PRN PRN Reason: Dyspepsia Stop: 11/13/23 12:34 Albuterol (Albuterol Hfa 8 Gm Inhaler) 2 puffs INH Q4H PRN PRN Reason: Wheezing Stop: 11/13/23 12:34 Artificial Tears (Artificial Tears) 1 drops OP QID PRN PRN Reason: Dryness Stop: 11/13/23 13:30 Aspirin (Aspirin 81 Mg Ectab) 81 mg PO QAM [facility] Stop: 11/14/23 08:59 Last Admin: 10/20/23 08:16 Dose: 81 mg Atorvastatin Calcium (Atorvastatin 20 Mg Tab) 20 mg PO QAM [facility] Stop: 11/14/23 08:59 Last Admin: 10/20/23 08:15 Dose: 20 mg Bisacodyl (Bisacodyl 10 Mg Supp) 10 mg WV DAILY PRN PRN Reason: Constipation Stop: 11/13/23 12:34 Bupropion HCl (Bupropion Xl 150 Mg Tabcr) 150 mg PO QAM [facility] Stop: 11/14/23 08:59 Last Admin: 10/20/23 08:16 Dose: 150 mg Diphenhydramine HCl (Diphenhydramine Capsule 25 Mg Cap) 25 mg PO Q6H PRN PRN Reason: Allergic Rhinitis/Insomnia Stop: 11/13/23 12:34 Enoxaparin Sodium (Enoxaparin Inj 120 Mg/0.8 Ml Syr) 120 mg SQ Q12 JIM Stop: 11/15/23 10:44 Last Admin: 10/20/23 08:17 Dose: 120 mg Epinephrine (Racepinephrine 2.25% Nebu Soln 0.5 Ml Vial) 0.5 ml INH NOW PRN PRN Reason: If stridor present Escitalopram Oxalate (Escitalopram Oxalate 20 Mg Tab) 20 mg PO QAM [facility] Stop: 11/14/23 08:59 Last Admin: 10/20/23 08:15 Dose: 20 mg Famotidine (Famotidine 20 Mg Tab) 20 mg PO Q12H PRN PRN Reason: Dyspepsia Stop: 11/13/23 12:34 Famotidine (Famotidine 40 Mg Tablet) 40 mg PO HS [facility] Stop: 11/13/23 20:59 Last Admin: 10/19/23 21:02 Dose: 40 mg Ferrous Sulfate (Ferrous Sulfate 325 Mg Tab) 325 mg PO QPM [facility] Stop: 11/13/23 20:59 Last Admin: 10/19/23 21:01 Dose: 325 mg Furosemide (Furosemide 20 Mg Tab) 20 mg PO QAM PRN PRN Reason: Edema Stop: 11/13/23 12:34 Hydromorphone HCl (Hydromorphone Inj 0.5 Mg/0.5 Ml Syr) 0.5 mg IV Q3H PRN PRN Reason: MODERATE Pain (Scale 4,5,6) & Pre PT Stop: 10/28/23 12:34 Hydroxyzine HCl (Hydroxyzine Hcl 25 Mg Tab) 25 mg PO Q8H PRN PRN Reason: Anxiety Stop: 11/13/23 12:34 Dexamethasone 8 mg/ Syringe 2 mls @ 1 mls/min IV NOW PRN PRN Reason: If stridor present Lorazepam 0.5 mg/ Syringe 0.5 mls @ 2 mls/min IV Q8H PRN; Protocol PRN Reason: Sedation/Anxiety Stop: 11/13/23 12:34 Promethazine HCl (Phenergan) 12.5 mg in 50.5 mls @ 202 mls/hr IV Q6H PRN PRN Reason: Nausea And Vomiting Stop: 11/13/23 12:34 Dexamethasone 6 mg/ Syringe 1.5 mls @ 1 mls/min IV Q8H [facility] Last Admin: 10/14/23 21:22 Dose: 1 mls/min Influenza Virus Vaccine Quadrival (Do Not Administer Flu Vaccine) 1 each N/A PRN PRN PRN Reason: Notification Stop: 11/13/23 12:34 Insulin Aspart (Insulin Aspart Per Unit Charge) 0 units SC [facility] Stop: 11/13/23 16:29 Last Admin: 10/20/23 12:15 Dose: 18 units Insulin Glargine (Lantus Per Unit Charge) 15 units SC [facility] Stop: 11/17/23 20:59 Last Admin: 10/19/23 20:59 Dose: 15 units Leucovorin Calcium (Leucovorin Calcium 5 Mg Tab) 5 mg PO Sa@0900 [facility] Stop: 11/14/23 08:59 Lorazepam (Lorazepam 0.5 Mg Tab) 0.5 mg PO Q8H PRN PRN Reason: Sedation/Anxiety Stop: 11/13/23 12:34 Magnesium Chloride (Magnesium Chloride W/Calcium 64mg Delayed Rel Tab) 192 mg PO BID@0800,1700 [facility] Stop: 11/13/23 16:59 Last Admin: 10/20/23 08:13 Dose: 192 mg Magnesium Chloride (Magnesium Chloride W/Calcium 64mg Delayed Rel Tab) 128 mg PO [facility] Stop: 11/13/23 20:59 Last Admin: 10/19/23 21:01 Dose: 128 mg Magnesium Hydroxide (Magnesium Hydroxide Susp 30 Ml Udc) 30 ml PO Q24H PRN PRN Reason: Constipation Stop: 11/13/23 12:34 Last Admin: 10/17/23 08:33 Dose: 30 ml Medroxyprogesterone Acetate (Medroxyprogesterone Acetate 10 Mg Tab) 10 mg PO QAM [facility] Stop: 11/14/23 08:59 Last Admin: 10/20/23 08:14 Dose: 10 mg Menthol (Cough Drop (Sugar Free) Nguyễn 24 Nguyễn/1 Box) 1 nguyễn BUCCAL Q6H PRN PRN Reason: Sore Throat Stop: 11/13/23 20:44 Last Admin: 10/14/23 21:18 Dose: 1 nguyễn Metoprolol Tartrate (Metoprolol Tartrate 25 Mg Tab) 12.5 mg PO BIDM [facility] Stop: 11/13/23 16:59 Last Admin: 10/20/23 08:13 Dose: 12.5 mg Miscellaneous Information (Pharmacy Glycemic Mgmt Consult) 1 each N/A UD PRN PRN Reason: Consult Stop: 11/13/23 12:34 Montelukast Sodium (Montelukast Sodium 10 Mg Tablet) 10 mg PO [facility] Stop: 11/13/23 20:59 Last Admin: 10/19/23 21:01 Dose: 10 mg Multivitamins (Multivitamin Tab) 1 tab PO QAM [facility] Stop: 11/14/23 08:59 Last Admin: 10/20/23 08:16 Dose: 1 tab Naloxone HCl (Naloxone Hcl 0.4 Mg/1 Ml Vial/Carp) 0.1 mg IV Q5M PRN PRN Reason: Oversedation/Resp depression Stop: 11/13/23 12:34 Advair Hfa 230-21 Mcg/Actuation - Non- Formulary Patient's Own Med 2 each INH BID [facility] Stop: 11/14/23 20:59 Last Admin: 10/20/23 11:16 Dose: 1 puffs Ondansetron HCl (Ondansetron Inj 2 Mg/Ml 2 Ml Vial) 4 mg IV Q6H PRN PRN Reason: Nausea &/or Vomiting Stop: 11/13/23 12:34 Ondansetron HCl (Ondansetron 4 Mg Od Tab) 4 mg PO Q6H PRN PRN Reason: Nausea Stop: 11/13/23 12:34 Oxycodone HCl (Oxycodone Hcl Ir 5 Mg Tab (Immediate Release)) 5 - 10 mg PO Q4H PRN PRN Reason: Pain & Pre PT Stop: 10/28/23 12:34 Last Admin: 10/20/23 08:12 Dose: 5 mg Pantoprazole Sodium (Pantoprazole 40 Mg Tab) 40 mg PO QAM [facility] Stop: 11/14/23 08:59 Last Admin: 10/20/23 08:14 Dose: 40 mg Pneumococcal Polyvalent Vaccine (Do Not Administer Pneumococcal Vaccine) 1 each N/A PRN PRN PRN Reason: Notification Stop: 11/13/23 12:34 Ropinirole HCl (Ropinirole Hcl 0.25 Mg Tablet) 0.5 mg PO HS PRN PRN Reason: Restless Leg(S) Stop: 11/13/23 12:34 Last Admin: 10/19/23 17:53 Dose: 0.5 mg Senna/Docusate Sodium (Docusate Sodium/Senna 50/8.6mg Tab) 2 tab PO HS [facility] Stop: 11/13/23 20:59 Last Admin: 10/19/23 21:06 Dose: 2 tab Sodium Biphosphate/Sodium Phosphate (Sod Phosphate/Sod Biphosphate Enema 132 Ml Btl) 132 ml WV ONE PRN PRN Reason: Constipation Stop: 11/13/23 12:34 Tramadol HCl (Tramadol Hcl 50 Mg Tablet) 50 - 100 mg PO Q4H PRN PRN Reason: Moderate-Severe pain & Pre PT Stop: 11/13/23 12:34 Last Admin: 10/17/23 04:40 Dose: 100 mg Verapamil HCl (Verapamil Hcl 120 Mg Tabcr) 120 mg PO TID [facility] Stop: 11/13/23 13:59 Last Admin: 10/20/23 08:15 Dose: 120 mg Vitamin B Complex (Vitamin B Complex Tab) 1 tab PO QAM [facility] Stop: 11/14/23 08:59 Last Admin: 10/20/23 08:16 Dose: 1 tab Warfarin Sodium (Warfarin Sod 5 Mg Tab) 5 mg PO [id number] [facility] Stop: 11/15/23 15:59 Last Admin: 10/16/23 16:47 Dose: 5 mg Warfarin Sodium (Warfarin Sod 7.5 Mg Tab) 7.5 mg PO [id number] [facility] Stop: 11/16/23 15:59 Last Admin: 10/19/23 17:31 Dose: 7.5 mg
[2023-10-20 14:04] VITALS: BP 137/83; PULSE 98
== END 2023-10-20 14:18 | disposition home health service (06) | DRG 454 ==
LOC: ASU 06:15 → 3E 10:40 → 2E 10-15 02:02 → 3E 10-16 16:05
DX: J45.909 Unspecified asthma, uncomplicated; R79.89 Other specified abnormal findings of blood chemistry; I50.32 Chronic diastolic (congestive) heart failure; K21.9 Gastro-esophageal reflux disease without esophagitis; Z86.711 Personal history of pulmonary embolism; E11.9 Type 2 diabetes mellitus without complications; M13.80 Other specified arthritis, unspecified site; R06.00 Dyspnea, unspecified; Z83.3 Family history of diabetes mellitus; Z88.8 Allergy status to other drugs, medicaments and biological substances; Z87.891 Personal history of nicotine dependence; M54.12 Radiculopathy, cervical region; I24.89 Other forms of acute ischemic heart disease; Z86.718 Personal history of other venous thrombosis and embolism; G99.2 Myelopathy in diseases classified elsewhere; T38.0X5A Adverse effect of glucocorticoids and synthetic analogues, initial encounter; Y92.230 Patient room in hospital as the place of occurrence of the external cause; G47.30 Sleep apnea, unspecified; Z88.2 Allergy status to sulfonamides; E66.01 Morbid (severe) obesity due to excess calories; M48.02 Spinal stenosis, cervical region; Z79.01 Long term (current) use of anticoagulants; I47.19 Other supraventricular tachycardia; Z68.42 Body mass index [BMI] 45.0-49.9, adult; Z79.82 Long term (current) use of aspirin

== ENCOUNTER 2023-12-25 19:55 | Inpatient (IN) ==
--- OUTSIDE RECORDS SUMMARY | 2023-12-25 20:04 | External Medical Summary | Summary of Care ---
Author Name Unknown Organization [facility] Address [address] [place] [address] Phone [phone] Care Team Providers Care Speech Pathology Assistant Name Role Phone Landon Quiles Primary Care Provider Reason for Visit * Reason Onset Date Comments Test Results 09/10/2023 Unexpected or In determinate Result Encounter Details Date Type Department Care Team (Late st Contact Info) Description 09/10/2023 Telephone Radiology [address] [place] [address] Sophia Martínez PA-C [address] [facility] [place] [id number] Test Results (Unexpected or Indeterminate ... Allergies Active Allergy Reactions Criticality Noted Date Comments Allopurinol Edema Other,Fever,Hives 07/21/2021 Benzocaine 09/23/2023 Clindamycin High 03/22/2022 Esophageal swelling and a rash Codeine Itching 12/29/2010 rash Dexamethasone Tachycardia 10/24/2023 Erythromycin 07/25/2000 stomach cramps Fluticasone 09/23/2023 Gabapentin Edema Other Medium 12/09/2011 Pt c/o edema in feet and hands Hyoscyamine Edema Other 06/29/2018 Sitagliptin Phosphate Edema Other Low 12/06/2013 Ankle and hand swelling Nickel Rash 06/29/2018 Potassium 10/28/2011 Rash with one formulation PO tabs Adhesive Tape 12/25/2010 Tricyclic Antidepressants Medium 04/19/2007 Swelling of hands and arms Vagisil 09/27/2012 documented as of this encounter (statuses as of 12/10/2023) Medications Medication Sig Dispensed Refills Start Date End Date Status TYLENOL ARTHRITIS PAIN 650 MG PO TBCR 2 at bedtime Active NEBULIZER COMPRESSOR MISCIndications: Asthma, severity to be determined Use as directed 1 Each 1 05/30/19 13 Active Additional Information Patient not taking.Informant: Patient, Reported on 11/16/2023 aspirin 81 MG chewable tabletIndication s:Morbid obesity due to excess calories (HCC) Take 1 Tab by mouth daily. with food. 100 Tab 5 12/04/19 17 Active Multiple Vitamins-Mineral s (WOMENS 50+ ADVANCED) CAPS Take by mouth. Active Biotin 10 MG TABS Take by mouth. Active B Complex-Folic Acid (SUPER B COMPLEX MAXI) TABS Take by mouth. Active CPAP every night at bedtime. Auto 10-20 cm Active Spacer/Aero-Hold ing Chambers Device Use with advair and albuterol 1 Each 12/29/19 22 Active Sodium Fluoride 1.1 % Dental Gel Apply a thin ribbon to toothbrush. [place] twice daily in place of normal toothpaste 100 mL 4 07/29/19 23 Active Furosemide 20 MG Oral Tablet (Lasix) TAKE ONE TABLET BY MOUTH DAILY NEEDED FOR LEG SWELLING, FLUID ACCUMULATION OR WEIGHT GAIN. 30 Tablet 11 11/25/19 23 024 Active rOPINIRole HCl 0.5 MG Oral Tablet (Requip)Indicati ons:Restless leg syndrome TAKE 1 TABLET BY MOUTH AT BEDTIME NEEDED RESTLESS LEGS 90 Tablet 3 12/07/19 23 Active Nystatin-Triamci nolone 068441-7.1 UNIT/GM-% External Cream (Mycolog)Indicat ions:Tinea cruris APPLY TOPICALLY TO AFFECTED AREA TWO TIMES A DAY FOR 14 DAYS 120 g 1 12/10/19 23 Active Warfarin Sodium 5 MG Oral Tablet (Coumadin)Indica tions:History of pulmonary embolism,PAT (paroxysmal atrial tachycardia) (HCC) Take by mouth 5 mg ( 1 tablet) every Sun, Shira; 7.5 mg (1 1/2 tablets) all other days or as directed 130 Tablet 3 12/14/19 Active cycloSPORINE 0.05 % Ophthalmic Emulsion (Restasis) Instill 1 drop into both eyes every 12 hours 60 Each 6 12/22/19 Active Additional Information Patient not taking.Reported on 11/16/2023 Atorvastatin Calcium 20 MG Oral Tablet (Lipitor)Indicat ions:Dyslipidemi a, goal LDL below 100 TAKE 1 TABLET BY MOUTH IN THE MORNING 90 Tablet 9 12/24/19 23 Active GNP UltiCare Pen [place] 32G X 4 MM (Insulin Pen Needle) use to inject basaglar once daily 100 Each 3 12/28/19 Active Ozempic (2 MG/DOSE) 8 MG/3ML Subcutaneous Solution Pen-injector (Semaglutide (2 MG/DOSE))Indicat ions:Type 2 diabetes mellitus with hemoglobin A1c goal of less than 8.0% (HCC) Inject 2 mg under the skin once a week. 9 mL 3 01/07/20 Active Ondansetron HCl 4 MG Oral TabletIndication s:Nausea Take 1 Tablet by mouth every 6 hours as needed for Nausea. 60 Tablet 3 02/03/20 Active Empagliflozin 25 MG Oral Tablet (Jardiance)Indic ations:Type 2 diabetes mellitus with hemoglobin A1c goal of less than 7.0% (HCC) Take 1 Tablet by mouth in the morning. 90 Tablet 3 02/15/20 Active Insulin Glargine Solostar 100 UNIT/ML Subcutaneous Solution Pen-injector (Basaglar KwikPen)Indicati ons:Type 2 diabetes mellitus with hemoglobin A1c goal of less than 7.0% (HCC) Inject 15 Units under the skin every night at bedtime. Titrate up as direct by clinic. Max daily dose of 25 units. 30 mL 5 03/30/19 24 Active Additional Information Patient taking differently: 10 UnitsSubcutaneous QHS, Titrate up as direct by clinic. Max daily dose of 25 units., Reported on 06/28/2023 Potassium Citrate ER 10 MEQ (1080 MG) Oral Tablet Extended Release (Urocit-K) TAKE 3 TABLETS BY MOUTH IN THE MORNING THEN 2 TABLETS IN THE EVENING 150 Tablet 6 06/06/19 24 025 Active Additional Information Patient taking differently: 2 in the morning 3 in the evening, Reported on 06/13/2023 Methotrexate Sodium 50 MG/2ML Injection SolutionIndicati ons:Inflammatory polyarthritis (HCC) INJECT UNDER THE SKIN (0.8ML) 20MG ONCE A WEEK. 4 mL 5 06/08/19 24 025 Active Famotidine 40 MG Oral Tablet (Pepcid) Take 1 Tablet by mouth at bedtime. 90 Tablet 1 06/27/19 24 Active Levalbuterol Tartrate 45 MCG/ACT Inhalation Aerosol (Xopenex HFA)Indications: Moderate persistent asthma without complication Inhale 1 Puff by mouth every 4 hours as needed for Wheezing. 15 g 3 06/28/19 24 Active Ferrous Sulfate 325 (65 Fe) MG Oral Tablet (FeroSul)Indicat ions:Iron deficiency anemia due to chronic blood loss Take 1 Tablet by mouth daily. 90 Tablet 1 07/18/19 24 Active Metoprolol Tartrate 25 MG Oral Tablet (Lopressor)Indic ations:HTN, goal below 130/80 TAKE 1/2 TABLET BY MOUTH IN THE MORNING AND TAKE 1/2 TABLET BEFORE BEDTIME 90 Tablet 07/18/19 24 Active Sodium Bicarbonate 650 MG Oral Tablet Take 1 Tablet by mouth in the morning and 1 Tablet before bedtime. 180 Tablet 07/18/19 24 Active medroxyPROGESTER one Acetate 10 MG Oral Tablet (Provera)Indicat ions:Endometrial hyperplasia without atypia, simple Take 1 Tablet by mouth in the morning. 30 Tablet 07/18/19 24 Active Amoxicillin 500 MG Oral Capsule (Amoxil) take 1 capsule (500 mg) by oral route 2 times per day. Start this 2 days before tooth extraction. 14 Capsule 08/03/19 24 Active Additional Information Patient not taking.Reported on 08/22/2023 BD Pump Oiler Tray 27G X 1/2" 1 ML Kit (Tuberculin-Patrice rgy Syringes)Indicat ions:Inflammator y polyarthritis (HCC) USE DIRECTED TO INJECT METHOTREXATE 0.6 ML ONCE A WEEK 25 Kit 5 08/08/19 24 Active Leucovorin Calcium 5 MG Oral Tablet (Wellcovorin) Take 1 Tablet by mouth once a week. 12 Tablet 9 08/09/19 24 Active Gemtesa 75 MG Oral Tablet (Vibegron) Take 1 Tablet by mouth in the morning. 90 Tablet 3 08/16/19 24 Active Escitalopram Oxalate 20 MG Oral Tablet (Lexapro) TAKE ONE TABLET BY MOUTH DAILY 90 Tablet 3 08/16/19 24 025 Active Verapamil HCl ER 120 MG Oral Tablet Extended Release (Isoptin SR)Indications:P AT (paroxysmal atrial tachycardia) ([facility]) TAKE 1 TABLET BY MOUTH 3 TIMES A DAY. 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 360 Tablet 3 10/29/19 23 024 Discontinued(R efill) Montelukast Sodium 10 MG Oral Tablet (Singulair)Indic ations:Moderate persistent asthma without complication TAKE 1 TABLET BY MOUTH BEFORE BEDTIME 90 Tablet 2 12/14/19 23 024 Discontinued(R efill) Magnesium Chloride 64 MG Oral Tablet Delayed Release (Mag64) TAKE 3 TABLETS BY MOUTH IN THE MORNING, TAKE 3 TABLETS WITH DINNER AND TAKE 2 TABLETS AT BEDTIME 450 Tablet 3 12/14/19 024 Discontinued(R efill) Lansoprazole 15 MG Oral Capsule Delayed Release (Prevacid) Take 1 Capsule by mouth in the morning. 90 Capsule 3 12/23/19 024 Discontinued(R efill) Enoxaparin Sodium 120 MG/0.8ML Injection Solution Prefilled Syringe (Lovenox)Indicat ions:History of pulmonary embolism Inject 120 mg under the skin in the morning and 120 mg before bedtime. Use as directed according to [facility] for bridging. #10 syringes ordered. 8 mL 04/21/19 24 024 Discontinued Fluticasone-Salm eterol 230-21 MCG/ACT Inhalation Aerosol (Advair) Inhale 2 Puffs by mouth in the morning and 2 Puffs before bedtime. 12 g 1 06/28/19 24 024 Discontinued(R efill) FreeStyle Dewey 3 SensorIndication s:Type 2 diabetes mellitus with hemoglobin A1c goal of less than 8.0% ([facility]) Use as directed. 6 Each 3 07/21/19 24 024 Discontinued(R efill) oxyCODONE HCl 5 MG Oral Tablet (Oxy IR)Indications:F ibromyalgia Take 1 Tablet by mouth every 8 hours as needed for severe Pain 60 Tablet 08/22/19 24 024 Discontinued(R efill) documented as of this encounter (statuses as of 12/10/2023) Active Problems Problem Noted Date Diagnosed Date [...] as of this encounter (statuses as of 12/10/2023) Resolved Problems Problem Noted Date Diagnosed Date [...] as of this encounter (statuses as of 12/10/2023) Immunizations Name Administration Dates Next Due COVID-19 mRNA, LNP-s, No Pre serve, 2-Dose Series ([employer]) 12/18/2020,06/20/2020,05/30/2020 COVID-19, LNP-s, No Preserve , Marshal-sucrose, Ages 12+ (Pfizer) 06/25/2021 Covid-19, Mrna, Lnp-s, Pf, B ivalent, 30 Mcg, IM, 12 yrs and above ([employer]) 12/31/2021 H1N1 2009 Influenza, IM 02/24/2009 Hepatitis B, 20+ yrs 08/24/2013,04/10/2013,02/20 Pneumococcal Conjugate Vacc, 13 Valent (Prevnar) 11/16/2019 Pneumococcal Polysaccharide PPV23 (Pneumovax) 07/22/2020,11/10/2006 Seasonal Influenza Vac., MDV , IM, 0.5 mL (Fluzone) 11/19/2013,11/28/2012,11/25/2011,01/16,11/25/2008,12/27/2007,01/09/2007 ,03/11/2006 Seasonal Influenza, PF, 6 M & above, IM , (FluLaval or Fluzone) 11/21/2020,11/26/2019,11/14/2018,11/15,12/03/2016 Seasonal Influenza, Quadriva lent Hd (Fluzone Hd) 11/25/2022,12/03/2021 Seasonal Influenza, Quadriva lent, No Preserve, IM 11/11/2015,12/26/2014 TD, Preservative Free 11/15/2017 TDAP, Age 7 [...] 12/28/2022 Does the household have a re lar source of income? (Household - for ages [...] encounter Miscellaneous Notes * Telephone Encounter - Sophia Martínez PA-C - 09/12/2023 1:43 PM EDT Noted. Staff message sent to scheduling, will try to move her follow up to sooner date. Surgical consultation needs to be discussed. Will also message Dr. Lowry, may need to cancel GAYE due to degree of spinal stenosis. * Telephone Encounter - Melly Mayorga OSA - 09/10/2023 4:34 PM EDT Hello- The radiologist discovered an unexpected or indeterminate finding on Barbie Davidson ([id number]) and asks that you review the following report. Study Type:MRI C SPINE WO CONTRAST Date of Study: 09/09/2023 IMPRESSION 1. Multilevel degenerative changes in the cervical spine as described above, more pronounced at C5-C6 level with resultant severe spinal canal stenosis and compression of the spinal cord at this level. Subtle T2 hyperintense signal involving the spinal cord at C5-C6 level, likely representing cord e fantasma/myelomalacia. 2. Moderate to severe spinal canal stenosis at C6-C7 level with compression of the spinal cord. Severe right and moderate to severe left neural foraminal stenosis at C4-C5 level. Severe left neural foraminal stenosis at C5-C6 and C6- C7 levels. Please respond to this encounter to acknowledge receipt of this message and take responsibility to ensure this report is reviewed. Thank you, LORE Workman Client Service Rep [facility] documented in this encounter Plan of Treatment Upcoming Encounters Date Type Department Care Team (Latest Contact Info) Description 12/27/2023 3:30 PM EDT Office Visit Gastroenterology, [facility] [address] [place] [address] Franchesca Almaraz CRNP [address] [place] [address] 01/04/2024 1:00 PM EDT Anticoagulation Pharmacy, [facility] [address] [facility] [place] [address] Pharmacist2, [facility] [address] [place] [address] 01/10/2024 1:00 PM EST Office Visit Family Practice [facility] [address] [place] [address] Landon Quiles DO [address] [place] [address] 01/11/2024 1:00 PM EST Immunization/Injection Hematology/Oncology Treatment, [place] [address] [place] [phone] Park, Chair 2 Hem Onc [facility] [address] [place], [place] [address] 02/22/2024 1:30 PM EST Office Visit Pharmacy, [facility] [address] [place] [address] Pharmacist2, [facility] [address] [place], [place] [address] 02/22/2024 2:00 PM EST Pharmacy Pharmacy, [facility] [address] [place] [address] Pharmacist2, [facility] [address] [place], [place] [address] 02/22/2024 2:30 PM EST Anticoagulation Pharmacy, [facility] [address] [place], [place] [address] Pharmacist2, [facility] [address] [place], [place] [address] 05/11/2024 1:40 PM EST Office Visit Family Practice [facility] [address] [facility] [place] [address] Jackeline Diaz CRNP [address] [facility] [address] 05/29/2024 11:15 AM EDT Office Visit Hematology/Oncology [facility] [address] [place], [place] [phone] Abdirizak Shoemaker MD [address] [place], [place] [address] 09/17/2024 11:40 AM EDT Office Visit Sleep Disorders Ctr [facility] [address] [facility] [place] [phone] Bernadette Zuniga [address] [place] [address] 11/20/2024 1:45 PM EDT Office Visit Urology, [facility] [address] [place] [address] Faustino Cárdenas MD [address] [place] [address] Scheduled Procedures Name Priority Associated Diagnoses Date/Ti me COLONOSCOPY FLEXIBLE PROXIMA L DIAGNOSTIC Recall History of colonic polyps Health Maintenance Due Date Last Done Comments Cologuard 2001 Fecal Occult Blood Test 2001 Sigmoidoscopy 2001 Adult Wellness Visit 2022 Diabetic Eye Exam 02/16/2023 02/16/2022, , 04/25/2019, Additional history exists Depression Screening 06/09/2023 06/08/2022 Diabetic Foot Exam 06/09/2023 06/08/2022, 0 07/10/2021, 07/22/2020, Additional history exists COVID-19 Vaccine ( season) 2023 06/25/2023, 12/31/2021, 06/25/2021, Additional history exists HbA1c 04/01/2024 09/30/2023, 04/07, 12/21/2022, Additional history exists B-12 05/31/2024 06/01/2023, 05/0 10/2022, 03/02/2021, Additional history exists Albumin/Creatinine Ratio 06/28/2024 024, 07/12/2022, 04/07/2021, Additional history exists GFR 10/27/2024 10/28/2023, 06/06, 06/29/2023, Additional history exists Pneumococcal Vaccine: 65+ Years (4 of 4 - PPSV23 or PCV20) 07/22/2025 07/22/2020, 11/16/2019, 11/10/2006 DTap/Tdap Vaccines (3 - Td or Tdap) 11/16/2027 [...] Discontinued 05/20/2023, 10/25/2017, 08/11/2012, Additional history exists Influenza Vaccine (FLU shot) Completed 11/30/2023, 11/25/2022, 12/03/2021, Additional history exists HPV (Gardasil) Vaccine Aged Out No lo nger eligible based on patient's age to complete this topic MENINGOCOCCAL (MENACTRA/MENVEO) Aged Out No longer eligible based on patient's age to complete this topic documented as of this encounter Medical Devices Implanted Type Area Heel Seat Pounder Device Identifier Shelf Expiration Date Model / Serial / Lot Graft Flex Hd 6 X 16cm [id number] - [id number] Implanted:Qty : 1 on 09/22/2010 [place] [facility] [place] - Human Left: Breast [employer]CULOSKELETAL TRANSPLANT FND 04/28/2013 [id number] / [id number] / Graft Flex Hd 6 X 16cm [id number] - [id number] Implanted:Qty : 1 on 09/22/2010 [place] [facility] [place] - Human Right: Chest MUSC[employer]OSKELETAL TRANSPLANT FND 04/28/2013 [id number] / [id number] / Mediport Pwr Isp 8fr [id number] - [id number] Implanted:Qty : 1 on 09/22/2010 [place] [facility] [place]: Chest CR BARD : [employer]ESS SYSTEM[employer] 07/13/2012 [id number] / / [id number] Breast Implant [id number] Saline - [id number] Implanted:Qty : 1 on 09/22/2010 [place] [facility] Right: Breast MENTOR EVA 12/13/2013 [id number] / [id number] Breast Implant 354-2515 Saline - [id number] Implanted:Qty : 1 on 09/22/2010 [place] [facility] Left: Breast MENT[employer] EVA 07/13/2014 [id number] / [id number] / [id number] Lens Intraoc 16.5 - [id number] - [id number] Implanted:Qty : 1 on 02/20/2016 by Lincoln Garces MD at OR [facility] Left: Eye BAUSCH [employer] LOMB 08/04/2020 [id number] / [id number] / [id number] Lens Intraoc 15.5 - [id number] - [id number] Implanted:Qty : 1 on 03/09/2016 by Lincoln Garces MD at OR [facility] Right: Eye BAUSCH [employer] LOMB 12/04/2017 [id number] / [id number] / documented as of this encounter Advance [...] and were consensually agreed upon. Care Teams Speech Pathology Assistant Relationship Specialty Start Date End Date Landon Quiles DO [address] [place] [address] PCP - General Family Medicine 03/19/19 documented as of this encounter
--- OUTSIDE RECORDS SUMMARY | 2023-12-25 20:04 | External Medical Summary ---
Author Name Unknown Address Unknown Organization K09:[facility] [place] [address] Laboratory Report Ordering Provider Test Date Status ARLENE BUTCHER 12/07/2023 13:05:11 Final Therapeutic ranges for non-o perative patients:
Prophylaxsis/treatment of DVT: (Range:2.0-3.0)
Treatment of pulmonary embolism:(Range:2.0-3.0)
Prevention of systemic embolism from:
-tissue heart valves
-acute myocardial infarction
-valvular heart disease
-atrial fibrillation
(Range: 2.0-3.0)
Mechanical prosthetic valves: (Range: 2.5-3.5) Observation Date Value Abnormality Reference (Units ) Status INR in Capillary blood by Coagulation assay 12/07/2023 13:05:11 3.1 (INR) Final Performing Location [facility] [place] [place] [address]
--- OUTSIDE RECORDS SUMMARY | 2023-12-25 20:04 | External Medical Summary | Summary of Care ---
Author Name Unknown Organization [facility] Address [address] [place] [address] Phone [phone] Care Team Providers Care Art History Professor Name Role Phone Landon Quiles DO Primary Care Provider Reason for Referral * Evaluate & Treat - Unlimited Visits (Within 24 hrs (call dept; emergent)) - Pending Review Specialty Diagnoses / Procedures Referred By Paul harrell Referred To Contact Orthopaedic Surgery / Orthopedics Diagnoses Right elbow pain Otis Hernández MD [address] [place] [address] Referral ID Status Reason Start Date Expiration Date Visits Requested Visits Authorized [id number] Pending Review Specialty Services Required 09/09/[phone] Question Answer Referral Priority Within 24 hrs (call dept; emergent) Where should this appointment be scheduled? [facility] What body part is the patient being seen for? Arm/Elbow What condition is the patient being seen for? Sprain/Strain/Tear/Other Reason for Visit * Reason Onset Date Comments Referral 09/09/2023 Encounter Details Date Type Department Care Team (Late st Contact Info) Description 09/09/2023 Telephone Family Practice [facility] [address] [address] Landon Quiles DO [address] [address] [address] Referral Allergies Active Allergy Reactions Criticality Noted Date [...] as of this encounter (statuses as of 12/09/2023) Medications Medication Sig Dispensed Refills Start Date End Date Status TYLENOL ARTHRITIS PAIN 650 MG PO TBCR 2 at bedtime Active NEBULIZER COMPRESSOR MISCIndications:As thma, severity to be determined Use as directed 1 Each 1 3 Active Additional Information Patient not taking.Informant: Patient, Reported on 11/16/2023 aspirin 81 MG chewable tabletIndications: Morbid obesity [...] Gel Apply a thin ribbon to toothbrush. [place] twice daily in place of normal toothpaste 100 mL 4 3 Active Furosemide 20 MG Oral Tablet (Lasix) TAKE ONE TABLET BY MOUTH DAILY NEEDED FOR LEG SWELLING, FLUID ACCUMULATION OR WEIGHT GAIN. 30 Tablet 11 3 12/21/19 24 Active rOPINIRole HCl 0.5 MG Oral Tablet (Requip)Indication s:Restless leg syndrome TAKE 1 TABLET BY MOUTH AT BEDTIME NEEDED RESTLESS LEGS 90 Tablet 3 3 Active Nystatin-Triamcino lone 376423-1.1 UNIT/GM-% External Cream (Mycolog)Indicatio ns:Tinea cruris APPLY TOPICALLY TO AFFECTED AREA TWO TIMES A DAY FOR 14 DAYS 120 g 1 3 Active Warfarin Sodium 5 MG Oral Tablet (Coumadin)Indicati ons:History of pulmonary embolism,PAT (paroxysmal atrial tachycardia) (HCC) Take by mouth 5 mg ( 1 tablet) every Tue, Shira; 7.5 mg (1 1/2 tablets) all other days or as directed 130 Tablet 3 3 Active cycloSPORINE 0.05 % Ophthalmic Emulsion (Restasis) Instill 1 drop into both eyes every 12 hours 60 Each 6 3 Active Additional Information Patient not taking.Reported on 11/16/2023 Atorvastatin Calcium 20 MG Oral Tablet (Lipitor)Indicatio ns:Dyslipidemia, goal LDL below 100 TAKE 1 TABLET BY MOUTH IN THE MORNING 90 Tablet 9 3 01/01/20 24 Active GNP UltiCare Pen [place] 32G X 4 MM (Insulin Pen Needle) [...] the morning. 30 Tablet 12 4 Active Amoxicillin 500 MG Oral Capsule (Amoxil) take 1 capsule (500 mg) by oral route 2 times per day. Start this 2 days before tooth extraction. 14 Capsule 4 Active Additional Information Patient not taking.Reported on 08/22/2023 BD Service Station Equipment Mechanic Tray 27G X 1/2" 1 ML Kit [...] 270 Tablet 3 4 08/31/19 25 Active documented as of this encounter (statuses as of 12/09/2023) Active Problems Problem Noted Date Diagnosed Date [...] as of this encounter (statuses as of 12/09/2023) Resolved Problems Problem Noted Date Diagnosed Date [...] as of this encounter (statuses as of 12/09/2023) Immunizations Name Administration Dates Next Due COVID-19 mRNA, LNP-s, No Pre serve, 2-Dose Series (Yeelion) 12/18/2020,06/20/2020,05/30/2020 COVID-19, LNP-s, No Preserve , Marshal-sucrose, Ages 12+ (Pfizer) 06/25/2021 Covid-19, Mrna, Lnp-s, Pf, B ivalent, 30 Mcg, IM, 12 yrs and above (Pfizer) 12/31/2021 H1N1 2009 Influenza, IM 02/24/2009 Hepatitis [...] encounter Miscellaneous Notes * Telephone Encounter - Otis Hernández MD - 09/09/2023 1:22 PM EDT signed * Telephone Encounter - Radha Vera OSA - 09/09/2023 12:11 PM EDT Patient injured her right elbow. Came into our Ortho urgent care walk in clinic with a right elbow injury. Can you please put in a referral for her. Thank you. documented in this encounter Plan of Treatment Upcoming Encounters Date Type Department Care Team (Latest Contact Info) Description 12/27/2023 3:30 PM EDT Office Visit Gastroenterology, [facility] [address] [address] Franchesca Almaraz CRNP [address] [place] [address] 01/04/2024 1:00 PM EDT Anticoagulation Pharmacy, [facility] [place] [address] [place] [address] Pharmacist2, [facility] [address] [place] [address] 01/10/2024 1:00 PM EST Office Visit Family Practice [facility] [address] [place] [address] Landon Quiles DO [address] [place] [address] 01/11/2024 1:00 PM EST Immunization/Injection Hematology/Oncology Treatment, [place] [address] [place] [phone] Sarai, Chair 2 Hem Onc [facility] [address] [place] [address] 02/22/2024 1:30 PM EST Office Visit Pharmacy, [facility] [address] [place], [place] [address] Pharmacist2, [facility] [address] [place], [place] [address] 02/22/2024 2:00 PM EST Pharmacy Pharmacy, [facility] [address] [place], [place] [address] Pharmacist2, [facility] [address] [place] [address] 02/22/2024 2:30 PM EST Anticoagulation Pharmacy, [facility] [address] [place], [place] [address] Pharmacist2, [facility] [address] [place] [address] 05/11/2024 1:40 PM EST Office Visit Family Practice [facility] [address] [place] [address] Jackeline Diaz CRNP [address] [place] [address] 05/29/2024 11:15 AM EDT Office Visit Hematology/Oncology [facility] [address] [place], [place] [phone] Abdirizak Shoemaker MD [address] [place] [address] 09/17/2024 11:40 AM EDT Office Visit Sleep Disorders Ctr [facility] [address] [place] [phone] Bernadette Zuniga DO [address] [place] [address] 11/20/2024 1:45 PM EDT Office Visit Urology, [facility] [address] [place] [address] Faustino Cárdenas MD [address] [address] [address] Scheduled Procedures Name Priority Associated Diagnoses Date/Ti me COLONOSCOPY FLEXIBLE PROXIMA L DIAGNOSTIC Recall History of colonic polyps Scheduled Referrals Name Type Priority Associated Diagnoses Order Schedule ORTHOPAEDICS REFERRAL OP Referral Within 24 hrs (call dept; emergent) Right elbow pain Ordered: 09/09/2023 Health Maintenance Due Date Last Done Comments [...] this encounter Medical Devices Implanted Type Area Geriatric Care Manager Device Identifier Shelf Expiration Date Model / Serial / Lot Graft Flex Hd 6 X 16cm [id number] - [id number] Implanted:Qty : 1 on 09/22/2010 [place] [facility] [place] - Human Left: Breast MUSCULOSKELETAL TRANSPLANT FND 04/28/2013 [id number] / [id number] / Graft Flex Hd 6 X 16cm [id number] - [id number] Implanted:Qty : 1 on 09/22/2010 at [place] [facility] [place] - Human Right: Chest MUSCULOSKELETAL TRANSPLANT FND 04/28/2013 [id number] / [id number] / Mediport Pwr Isp 8fr [id number] - [id number] Implanted:Qty : 1 on 09/22/2010 [place] [facility] [place] Right: Chest CR BARD : ACCESS SYSTEMS 07/13/2012 [id number] / / [id number] Breast Implant [id number] Saline - [id number] Implanted:Qty : 1 on 09/22/2010 at [place] [facility] [place] Right: Breast MENTOR EVA 12/13/2013 [id number] / [id number] Breast Implant 354-2515 Saline - [id number] Implanted:Qty : 1 on 09/22/2010 at [place] [facility] [place] Left: Breast MENTOR EVA 07/13/2014 [id number] / [id number] Lens Intraoc 16.5 - [id number] - [id number] Implanted:Qty : 1 on 02/20/2016 by Lincoln Garces MD at OR [facility] Left: Eye BAUSCH & LOMB 08/04/2020 [id number] / [id number] / [id number] Lens Intraoc 15.5 - [id number] - [id number] Implanted:Qty : 1 on 03/09/2016 by Lincoln Garces MD at OR [facility] Right: Eye BAUSCH & LOMB 12/04/2017 [id number] / [id number] / documented as of this encounter Visit Diagnoses Diagnosis Right elbow pain- Primary Pain in joint, upper arm documented in this encounter Advance Directives * [...] and were consensually agreed upon. Care Teams Art History Professor Relationship Specialty Start Date End Date Landon Quiles DO [address] [address] [address] PCP - General Family Medicine 03/19/19 documented as of this encounter
--- OUTSIDE RECORDS SUMMARY | 2023-12-25 20:04 | External Medical Summary | Summary of Care ---
Author Name Unknown Organization [facility] Address [address] [place] [address] Phone [phone] Care Team Providers Care Senior Client Advisor Name Role Phone Kb Landon Callejasray Primary Care Provider Reason for Visit * Reason Comments Dosage Adjustment In Person (Anticoag Cl inic) Diabetes Management Encounter Details Date Type Department Care Team (Late st Contact Info) Description 12/07/2023 1:00 PM EDT Office Visit Pharmacy, [facility] [address] [place] [address] Pharmacist2, [facility] [address] [place] [address] Type 2 diabetes mellitus with hemoglobin A1c goal of less than 8.0% (FORMERLY [facility])* Allergies Active Allergy Reactions Criticality Noted Date [...] as of this encounter (statuses as of 12/07/2023) Medications Medication Sig Dispensed Refills Start Date [...] Gel Apply a thin ribbon to toothbrush. [place] twice daily in place of normal toothpaste [...] 90 Tablet 3 3 Active Nystatin-Triamcino lone 802481-1.1 UNIT/GM-% External Cream (Mycolog)Indicatio ns:Tinea cruris APPLY [...] 3 01/01/20 24 Active GNP UltiCare Pen [place] 32G X 4 MM (Insulin Pen Needle) [...] Information Patient not taking.Reported on 08/22/2023 BD Central Lab Technician Tray 27G X 1/2" 1 ML Kit [...] 450 Tablet 3 4 09/19/19 25 Active Lansoprazole 15 MG Oral Capsule Delayed Release (Prevacid) Take 1 Capsule by mouth in the morning. 90 Capsule 3 4 Active Montelukast Sodium 10 MG Oral Tablet (Singulair)Indicat ions:Moderate persistent asthma without complication TAKE 1 TABLET BY MOUTH BEFORE BEDTIME 90 Tablet 2 4 09/25/19 25 Active buPROPion HCl ER (XL) 150 MG Oral Tablet Extended Release 24 Hour (Wellbutrin XL)Indications:Mod erate episode of recurrent major depressive disorder (HCC),PTSD (post-traumatic stress disorder) TAKE ONE TABLET BY MOUTH IN THE MORNING 90 Tablet 3 4 10/11/19 25 Active Mupirocin 2 % External Ointment (Bactroban) Apply topically to affected area as needed for Other. 4 Active metFORMIN HCl ER 500 MG Oral Tablet Extended Release 24 Hour (Glucophage XR) TAKE 4 TABLETS BY MOUTH DAILY WITH DINNER. 360 Tablet 3 4 10/29/19 25 Active oxyCODONE HCl 5 MG Oral Tablet (Oxy IR)Indications:Fib romyalgia Take 1 Tablet by mouth every 8 hours as needed for severe Pain 60 Tablet 4 Active documented as of this encounter (statuses as of 12/07/2023) Active Problems Problem Noted Date Diagnosed Date [...] as of this encounter (statuses as of 12/07/2023) Resolved Problems Problem Noted Date Diagnosed Date [...] as of this encounter (statuses as of 12/07/2023) Immunizations Name Administration Dates Next Due COVID-19 mRNA, LNP-s, No Pre serve, 2-Dose Series (Nitero) 12/18/2020,06/20/2020,05/30/2020 COVID-19, LNP-s, No Preserve , Marshal-sucrose, Ages 12+ (Pfizer) 06/25/2021 Covid-19, Mrna, Lnp-s, Pf, B ivalent, 30 Mcg, IM, 12 yrs and above (Nitero) 12/31/2021 H1N1 2009 Influenza, IM 02/24/2009 Hepatitis B, 20+ yrs 08/24/2013,04/10/2013,02/20 Pneumococcal Conjugate Vacc, 13 Valent (Prevnar) 11/16/2019 Pneumococcal Polysaccharide PPV23 (Pneumovax) 07/22/2020,11/10/2006 Seasonal Influenza Vac., MDV , IM, 0.5 mL (Fluzone) 11/19/2013,11/28/2012,11/25/2011,01/16,11/25/2008,12/27/2007,01/09/2007 ,03/11/2006 Seasonal Influenza, High Dos e, Trivalent, PF, IM (Fluzone HD) 11/30/2023 Seasonal Influenza, PF, 6 M & above, [...] on file documented as of this encounter Progress Notes * Fabricio Tovar, formerly [facility] - 12/07/2023 12:54 PM EDT Images from the original note were not included. Medication Therapy Disease Management [facility] - Diabetes Management Progress Note Barbie Davidson, identified by name and date of , is a 68 year old female being seen for diabetes management/education. Patient presents for return diabetic visit. DIABETES: Current diabetic medications: Metformin ER 500mg - 4 tabs daily Ozempic 2mg weekly on Fridays Jardiance 25 mg daily Basaglar 10 units QHS (GFR 73, 10/28/23) Medication Injection Site: Abdomen Lifestyle: Diet: unchanged Glucose Review/SMBG: Readings obtained from patient device Hypoglycemia: Does your blood sugar go below 70 mg/dL? No Hyperglycemia symptoms present: none Recent Labs Units 09/30/23 1215 04/25/23 1331 12/21/22 0849 HEMOGLOBIN A1C - [facility] % -- 7.5* 7.9* HEMOGLOBIN A1C POCT - [facility] % 6.5* -- -- Recent Labs Units 10/28/23 1316 07/01/23 1305 06/29/23 1243 ESTIMATED GLOMERULAR FILTRATION RATE - [facility] mL/min 73 63 63 CREATININE - [facility] mg/dL 0.9 1.0 1.0 HYPERTENSION: Patient on ACEi/ARB: no, BP controlled BP Readings from Last 3 Encounters: 11/30/23 140/63 11/04/23 126/62 10/24/23 120/64 Blood pressure at goal: yes HYPERLIPIDEMIA: Recent Labs Units 06/29/23 1243 07/12/22 1252 LDL CHOLESTEROL (DIRECT MEASURE) - [facility] mg/dL 82 70 Does patient have clinical ASCVD? Lipid panel ordered. HEALTH MAINTENANCE REVIEW: Health Maintenance Due Topic Date Due Adult Wellness Visit Never done Diabetic Eye Exam 02/16/2023 Diabetic Foot Exam 06/09/2023 Depression Screening 06/09/2023 COVID-19 Vaccine ( season) 2023 ASSESSMENT & PLAN: ICD-10-CM 1. Type 2 diabetes mellitus with hemoglobin A1c goal of less than 8.0% ([facility]) E11.9 BG Readings - Blood sugars controlled. BG averaging 176. Medications - Reviewed current regimen, patient is adherent to regimen. No changes at this time Diet, Exercise, Lifestyle - No significant lifestyle changes since last visit. Patient is agreeable to SMBG 4 time(s) daily. Patient aware to contact clinic if any hypoglycemia before next visit. MEDICATION CHANGES: no change Diabetic Medications: Metformin ER 500mg - 4 tabs daily Ozempic 2mg weekly on Fridays Jardiance 25 mg daily Basaglar 10 units QHS (GFR 73, 10/28/23) HEALTH MAINTENANCE INTERVENTIONS: Labs: Ordered & Scheduled: HgA1c, BMP/CMP, and Lipid Panel Immunizations: Up to Date Foot Exam: Due Eye Exam: Due Annual Wellness Visit: Visit Scheduled for next DM visit FOLLOW UP: Return to clinic in 4 weeks 01/04/2024 I spent a total of 30-39 minutes (exact time 30 mins) on the date of service in preparation, delivery, and documentation of the care provided to Barbie Davidson excluding any time spent in the performance of separately billed services. Fabricio Tovar formerly [facility] Clinical Pharmacist - Chef [facility] Medication Therapy Management [facility] 12/07/2023, 12:54 PM documented in this encounter Plan of Treatment Upcoming Encounters Date Type Department Care Team (Late st Contact Info) Description 12/27/2023 3:30 PM EDT Office Visit Gastroenterology, [facility] [place] [address] Franchesca Almaraz CRNP [facility] [place] [address] 01/04/2024 1:00 PM EDT Anticoagulation Pharmacy, [facility] [address] [place] [address] Pharmacist2, [facility] [address] [place] [address] 01/10/2024 1:00 PM EST Office Visit Family Practice [facility] [address] [facility] [place] [address] Landon Quiles DO [address] [facility] [place] [address] 01/11/2024 1:00 PM EST Immunization/Injection Hematology/Oncology Treatment, [place] [address] [facility] [place] [phone] Sarai, Chair 2 Hem Onc [facility] [address], [place] [address] 02/22/2024 1:30 PM EST Office Visit Pharmacy, [facility] [address] [address] Pharmacist2, [facility] [address] [place], [place] [address] 02/22/2024 2:00 PM EST Pharmacy Pharmacy, [facility] [address] [place], [place] [address] Pharmacist2, [facility] [address] [address] 02/22/2024 2:30 PM EST Anticoagulation Pharmacy, [facility] [address] [address] Pharmacist2, [facility] [address] [facility] [place] [address] 05/04/2024 2:30 PM EST Office Visit Cardiology, [facility] [address] [facility] [place] [address] Catalina Schafer CRNP [address] [facility] [place] [address] 05/11/2024 1:40 PM EST Office Visit Family Practice [facility] [address] [facility] [place] [address] Jackeline Diaz CRNP [address] [facility] [place] [address] 05/29/2024 11:15 AM EDT Office Visit Hematology/Oncology [facility] [address] [facility] [place] [phone] Abdirizak Shoemaker MD [address] [facility] [place] [address] 09/17/2024 11:40 AM EDT Office Visit Sleep Disorders Ctr [facility] [address] [facility] [place] [phone] Bernadette Zuniga, [address] [facility] [place] [address] 11/20/2024 1:45 PM EDT Office Visit Urology, [facility] [address] [facility] [place] [address] Faustino Cárdenas MD [address] [place] [address] Scheduled Orders Name Type Priority Associated Diagnoses Orde r Schedule LIPID PANEL WITH DIRECT LDL IF TG IS HIGH Lab Routine Type 2 diabetes mellitus with hemoglobin A1c goal of less than 8.0% (HCC) Expected: 12/07/2023, Expires: 12/06/2024 HEMOGLOBIN A1C Lab Routine Type 2 diabetes mellitus with hemoglobin A1c goal of less than 8.0% (HCC) Expected: 12/07/2023 (Approximate), Expires: 12/06/2024 BASIC METABOLIC PANEL Lab Routine Type 2 diabetes mellitus with hemoglobin A1c goal of less than 8.0% (HCC) Expected: 12/07/2023 (Approximate), Expires: 12/06/2024 Scheduled Procedures Name Priority Associated Diagnoses Date/Ti [...] Cancer Screening 05/19/2028 Lipid Panel 06/28/2028 06/29/2023, 0510/2022, 03/02/2021, Additional history exists DXA Scan 02/22/2029 [...] this encounter Medical Devices Implanted Type Area Label Stitcher Device Identifier Shelf Expiration Date Model / Serial / Lot Graft Flex Hd 6 X 16cm [id number] - [id number] [place] [facility] [place] Left: Breast MUSCULOSKELETAL TRANSPLANT FND 04/28/2013 [id number] / [id number] / Graft Flex Hd 6 X 16cm [id number] - [id number] Implanted:Qty : 1 [place] 09[place]22[place]2010 [place] [facility] [place] - Human Right: Chest MUSCULOSKELETAL TRANSPLANT FND 04/28/2013 [id number] / [id number] / Mediport Pwr Isp 8fr [id number] - [id number] Implanted:Qty : 1 [place] 09[place]22/2010 [place] [facility] [place]: Chest CR BARD : ACCESS SYSTEMS 07/13/2012 [id number] / / [id number] Breast Implant 354-4638 Saline - [id number] [place]ed:Q[place] : [place] [facility] [place]: Breast MENTOR EVA 12/13/2013 354-2515 / [id number] Breast Implant 354-2515 Saline - [id number] Implanted:Qty : 1 [place] 09[place]22[place] [facility] [place]: Breast MENTOR EVA 07/13/2014 354-2515 / [id number] Lens Intraoc 16.5 - [id number] - [id number] Implanted:Qty : 1 on 02/20/2016 by Lincoln Garces MD at OR [facility] Left: Eye BAUSCH & LOMB 08/04/2020 [id number] / [id number] Lens Intraoc 15.5 - [id number] - [id number] Implanted:Qty : 1 on 03/09/2016 by Lincoln Garces MD at OR [facility] Right: Eye BAUSCH & LOMB 12/04/2017 [id number] / [id number] / documented as of this encounter Visit Diagnoses Diagnosis Type 2 diabetes mellitus with hemoglobin A1c goal of less than 8.0% ([facility])- Primary documented in this encounter Advance Directives * [...] and were consensually agreed upon. Care Teams Senior Client Advisor Relationship Specialty Start Date End Date Landon Quiles DO [address] [place] [address] PCP - General Family Medicine 03/19/19 documented as of this encounter
--- OUTSIDE RECORDS SUMMARY | 2023-12-25 20:04 | External Medical Summary | Summary of Care ---
Author Name Unknown Organization [facility] Address [address] [place] [address] Phone [phone] Care Team Providers Care High Risk Ob Name Role Phone Lalo Quilesr Anayeli Primary Care Provider Reason for Visit * Reason Onset Date Comments Follow Up Return Medication Administration 11/30/2023 Flu an d/or Pneumo Inj Encounter Details Date Type Department Care Team (Late st Contact Info) Description 11/30/2023 1:00 PM EDT Office Visit Hematology/Oncology [facility] [address] [place] [address] Daniella Mccord CRNP [address] [place] [address] Malignant neoplasm of overlapping sites of both breasts in female, estrogen receptor positive (HCC)*; Need for prophylactic vaccination and inoculation against influenza Allergies Active Allergy Reactions Criticality Noted Date [...] as of this encounter (statuses as of 12/01/2023) Medications Medication Sig Dispensed Refills Start Date [...] Gel Apply a thin ribbon to toothbrush. Wagoner twice daily in place of normal toothpaste [...] 90 Tablet 3 3 Active Nystatin-Triamcino lone 339124-6.1 UNIT/GM-% External Cream (Mycolog)Indicatio ns:Tinea cruris APPLY [...] 3 01/01/20 24 Active GNP UltiCare Pen [place] 32G X 4 MM (Insulin Pen Needle) [...] hemoglobin A1c goal of less than 8.0% ([facility]) Use as directed. 6 Each 3 4 Active Amoxicillin 500 MG Oral Capsule (Amoxil) take 1 capsule (500 mg) by oral route 2 times per day. Start this 2 days before tooth extraction. 14 Capsule 4 Active Additional Information Patient not taking.Reported on 08/22/2023 BD Credit Administration Manager Tray 27G X 1/2" 1 ML Kit [...] as needed for severe Pain 60 Tablet Active documented as of this encounter (statuses as of 12/01/2023) Active Problems Problem Noted Date Diagnosed Date [...] as of this encounter (statuses as of 12/01/2023) Resolved Problems Problem Noted Date Diagnosed Date [...] as of this encounter (statuses as of 12/01/2023) Immunizations Name Administration Dates Next Due COVID-19 mRNA, LNP-s, No Pre serve, 2-Dose Series ([employer]) 12/18/2020,06/20/2020,05/30/2020 COVID-19, LNP-s, No Preserve , Marshal-sucrose, Ages 12+ (Pfizer) 06/25/2021 Covid-19, Mrna, Lnp-s, Pf, B ivalent, 30 Mcg, IM, 12 yrs and above (Pfizer) 12/31/2021 H1N1 2009 Influenza, IM 02/24/2009 Hepatitis B, 20+ yrs 08/24/2013,04/10/2013,02/20 Pneumococcal Conjugate Vacc, 13 Valent (Prevnar) 11/16/2019 Pneumococcal Polysaccharide PPV23 (Pneumovax) 07/22/2020,11/10/2006 Seasonal Influenza, High Dos e, Trivalent, PF, IM (Fluzone HD) 11/30/2023 Seasonal Influenza, PF, 6 M & above, IM , (FluLaval or Fluzone) 11/21/2020,11/26/2019,11/14/2018,11/15,12/03/2016 Seasonal Influenza, Quadriva lent Hd (Fluzone Hd) 11/25/2022,12/03/2021 Seasonal Influenza, Quadriva lent, No Preserve, IM 11/11/2015,12/26/2014 Seasonal Influenza, Trivalen t, (IIV3), with Preserv, (Fluzone) 11/19/2013,11/28/2012,11/25/2011,01/16,11/25/2008,12/27/2007,01/09/2007 ,03/11/2006 TD, Preservative Free 11/15/2017 TDAP, [...] on file documented as of this encounter Last Filed Vital Signs Vital Sign Reading Time Taken Comments Blood Pressure 140/63 11/30/2023 12:58 PM EDT Pulse 94 11/30/2023 12:58 PM EDT Temperature 36.4 C (97.6 F) 11/30/2023 12:58 PM E DT Respiratory Rate - - Oxygen Saturation 96% 11/30/2023 12:58 PM EDT Inhaled Oxygen Concentration - - Weight 124.5 kg (274 lb 8 oz) 11/30/2023 12:58 P M EDT Height - - Body Mass Index 47.12 09/15/2023 11:42 AM EDT documented in this encounter Patient Instructions * Patient Instructions* Kiesha Quiles LPN - 11/30/2023 1:35 PM EDT ~~PATIENT INSTRUCTIONS FOR FLU SHOT~~ Possible side effects of influenza vaccine, (flu shot), are usually mild and include: 1. Soreness or redness at injection site 2. Low grade fever 3. Body aches You may use Tylenol/Acetaminophen as needed for these symptoms. LET YOUR DOCTOR KNOW IMMEDIATELY IF YOU HAVE DIFFICULTY BREATHING OR SWALLOWING, EXPERIENCE ITCHINGOF FEET OR HANDS, HAVE SWELLING OF EYES, FACE OR INSIDE OF NOSE. documented in this encounter Progress Notes * Kiesha Quiles LPN - 11/30/2023 1:34 PM EDT PRE - ADMINISTRATION DOCUMENTATION Are you experiencing any cold symptoms or fever? No Have you had Guillain-[place] Syndrome (an illness that causes paralysis) within the last 6 weeks? No Have you had the flu shot in the past? YES Have you ever had a reaction to the flu shot? No Kiesha Quiles LPN, 11/30/2023 1:34 PM Immunization Administration Documentation Time Out Procedure Performed: Yes Patient Identified (Ask Name/Date of ): Yes Does the patient have a fever greater than 101 degrees today? No Patient allergic to latex? No VFC Stock: Yes, Does this patient qualify for immunization through the VFC program because he/she (check only one): Yes-is enrolled in Medicaid Immunization(s) verified: Yes, Immunization Name: Flu, VIS Sheet(s) given: Yes Verified Side and Site: Yes Verified Shot(s) with Parent(s)/Patient: Yes * Daniella Mccord CRNP - 11/30/2023 1:00 PM EDT Hematology/Oncology Outpatient Clinic [place] [address] Name: Barbie Davidson Date: 11/30/2023 CHIEF COMPLAINT: Barbie Davidson is a 68 year old female patient of Dr. Abdirizak Shoemaker here today for f/u visit. From Patient chart confirmed history with patient. From Dr. Abdirizak Shoemaker note 06/01/23 HEMATOLOGY/ONCOLOGY DIAGNOSIS: 65-year-old female, a case of left breast carcinoma, triple negative, BRCA1 positive, she opted forbilateral mastectomies, final pathology showed 10 cm left breast primary tumor, 4/5 lymph sushant positive for metastatic disease, also underwent prophylactic bilateral salpingo-oophorectomy, triple negative she completed 6 cycles of adjuvant chemotherapy with TAC, last cycle of chemotherapy receivedon 06/10/2011, also completed adjuvant radiation treatment, earlier she was seen and followed by Dr. Hsu, There was no evidence of recurrence of breast cancer noted in the follow-up PET-CT scan done in 12/2013 and 10/2014. Earlier in August, she was admitted at [facility], she had increasing shortness of breath and chest pain, found to have chronic bilateral pulmonary embolism, now she is on Coumadin with therapeutic INR. No new bleeding complications. Interval history: She has come the clinic for the follow-up unaccompanied. She has underlying gastroparesis, overall she has done well, no increasing nausea or vomiting. Had significant diarrhea last year Nov-Apr last year. All testing from GI negative. Diarrhea still there--"more controllable" Has 3 times a day for 3 days, then 3 days of nothing. No blood in stool. She also has seronegative inflammatory arthritis, she follows with law firm partner, she is on methotrexate every weekly ( injection). She has underlying neuropathy symptoms, ambulates with the help of the cane, chronic left upper extremity lymphedema noted, chronic bilateral leg edema, she is on diuretic treatment ( Lasix). She is on oral Coumadin for underlying thrombotic complications with pulmonary embolism and DVT No new bleeding from any sites. No new thrombotic complications. Had spinal surgery on neck 6 weeks ago. Surgery went well. She suffers from extreme fatigue. Has a few neurologic deficits from surgery. Weakness on left arm and left leg since surgery. She isdoing PT--she feels like it is getting better. Left hand is clumsy--numb hand. Wearing a neck braceduring the day. Pt states that the nerve pain is better. ONCOLOGY HISTORY Diagnostic workup: - She had an abnormal mammogram involving the left breast, 2 cm mass involving the left breast at 11 o'clock (07/10/2010), right breast showed benign findings. Ultrasound-guided biopsy of the left breast mass --> invasive adenocarcinoma with metaplastic changes, grade 3, 1.4 cm, no in-situ carcinoma noted, ER and WI receptor negative, Her2/Fly negative by IHC. Because of significant positive family history (breast cancer diagnosis in her mom, 3 of her mom your sister, daughters of her mom's brother, she was tested for BRCA mutation, positive for BRCA1 mutation. She underwent bilateral mastectomies, left axillary lymph sushant dissection, bilateral salping[facility]-ooph[facility]omy on 09/22/2010 at [facility]. Final pathology from left breast mastectomy showed 10 cm invasive ductal carcinoma, grade 3, extensive lymphovascular invasion noted, extensive dermal lymphatic invasion of the nipple noted, no involvement of the skin or muscle noted, 4/5 lymph sushant positive for metastatic disease, largest tumor deposit measuring 2.7 cm with extensive extranodal extension noted. -Right breast mastectomy showed atypical ductal and atypical lobular hyperplasia. No malignancy noted. - Bilateral ovaries showed negative for malignancy. TNM staging --> T3 N2 M0. She was seen by Dr. Hsu, she then completed 6 cycles of adjuvant chemotherapy with TAC (Taxotere Adriamycin, cyclophosphamide) between 02/11/2011- 06/10/2011. Her chemotherapy treatment was complicated by anemia which required a blood transfusion, as per the patient she received approximately 12 units of PRBC at that time. She completed adjuvant radiation treatment in September of 2012. - CA 27-29 level --> 44.4 (10/2011) --> 43.6 (02/14/2012) --> 32.7 (06/2013). Because of persistent elevated CA 27-29 in February of 2010, she had a PET-CT scan on 02/23/2012, it showed 7 mm aortocaval lymph node which is mild metabolically active, no other suspicious findingsnoted anywhere else, some heterogenous thyroid gland noted. She has remained under observation, has experienced left upper extremity lymphedema, she followed up with the [facility] physical therapy. She also has chronic bilateral lower extremity edema for the last several years. Noticed to have some lump in the left axilla, ultrasound of the left axilla done on 12/24/2013 showed no enlarged lymphadenopathy or other suspicious findings noted. 09/11/2020 MRI of L and T Spine IMPRESSION: Motion limited studies. 1. No evidence of an acute fracture of the thoracolumbar spine. 2. Multilevel degenerative changes most significant for a disc extrusion at L5- S1 compressing the descending right-sided S1 nerve root as well as contacting the left S1 nerve root. 3. Please see above for full description of multilevel degenerative findings throughout the thoracolumbar spine. US of Left Breast 10/17/2020 Findings: Please note patient has had mastectomy in 2010. Targeted ultrasound along the left lower chest roland the region of palpable lump as indicated by patient demonstrates no focal mass, cystic or solid. Impression No sonographic evidence of malignancy. BI-RADS Category: 2 - Benign. MRI of Brain 10/22/2020: IMPRESSION: No acute intracranial abnormality nor suspicious mass lesion. Incidental findings, as above. US of left breast 10/17/2021 Findings: Please note patient has had mastectomy in 2010. Targeted ultrasound along the left lower chest roland the region of palpable lump as indicated by patient demonstrates no focal mass, cystic or solid. Impression No sonographic evidence of malignancy. BI-RADS Category: 2 - Benign. Recommendation Clinical management and follow up of "palpable lump" is advised as deemed clinically necessary. Patient is advised to follow up with referring clinician. HISTORY OF PRESENT ILLNESS: Barbie Davidson is a 68 year old female with a history as outlined above. Currently here for f/u visit today. Had a bad fall at home in August 2023. Bone bruise on ulnar nerve. Has had bilateral knee pain. Did hit her head. Was evaluated in ER. No bleed noted. She continues to be on Warfarin. Since fall, the arthritis is 'much worse'. Currently 6 weeks out since neck surgery. Largest issue since surgery is fatigue. Is pleased with less nerve pain in the arms. Still have some weakness in left arm and leg. Lives with her at home. Denies headache, chest pain, palpitation, syncope, near syncope, shortness of breath, abdominal pain, cramping, constipation. Mild improved diarrhea continues. No urinary issues. Past Medical History: Diagnosis Date Abnormal mammogram Adult body mass index 40.0-44.9 Adult body mass index 40.0-44.9 ADVANCE DIRECTIVE INFORMATION Allergic rhinitis ASCUS with positive high risk HPV cervical 03/2021 Asthma Asthma, allergic Asthma, severity to be determined Bilateral malignant neoplasm of overlapping sites of breast in female (HCC) 08/16/2016 BRCA1 positive Chronic rhinitis Degeneration of cervical intervertebral disc Depressive disorder, not elsewhere classified Depressive disorder, not elsewhere classified Deviated nasal septum DM type 2, goal A1c below 7 Dyslipidemia 02/22/2014 Dysplasia of cervix, low grade (JASWINDER 1) 05/2021 repeat pap 1 yr Esophageal reflux FAMILY HX-BREAST MALIG 09/26/2008 BRCA 1 FIBROMYALGIA Fibromyalgia Gastroesophageal reflux disease with esophagitis 05/10/2003 Gastroparesis 04/23/2019 H/O bilateral mastectomy 07/06/2022 Headache(784.0) Herpes zoster 06/28/2011 Inflammatory polyarthritis (HCC) 04/23/2019 INFORMATION 11/29/2013 tachycardia- [facility] Insomnia, unspecified Insomnia, unspecified Malignant neoplasm of female breast (HCC) [id number] BRCA 1 pos Malignant neoplasm of overlapping sites of both breasts in female, estrogen receptor negative (HCC)03/29/2019 Nephrolithiasis 05/23/2017 Left sided 5mm noted on CT done by Matthew 05/05/17 LORE on CPAP 05/23/2006 Other chronic sinusitis Other lymphedema Paroxysmal SVT (supraventricular tachycardia) ([facility]) Phlebitis and thrombophlebitis of other deep vessels of lower extremities R leg post traumatic Pulmonary embolism ([facility]) RLS (restless legs syndrome) 11/10/2012 Has both aching and restlessness Sleep apnea Sleep apnea Wheelchair dependence 04/23/2019 Past Surgical History: Procedure Laterality Date BREAST RECONSTRUCTION W/JEWEL BEARING MAKER 09/22/2010 BREAST RECONSTRUCTION WITH TISSUE JEWEL BEARING MAKER performed by BRISA HALL at OR [facility] BX BREAST PERCUT W/IMAGE 12/10/2002 BCC CARPAL TUNNEL SURGERY 98/99 double median nerve on L COLONOSCOPY, DIAGNOSTIC (RECTUM) 10/25/2017 diverticulosis, fair prep, repeat 5 yrs/[facility] COLONOSCOPY, DIAGNOSTIC (RECTUM) N/A 05/20/2023 sigmoid diverticulosis/hemorrhoids/Colonoscopy/[place] COLORECTAL CANCER SCREEN; NOT AT RISK 03/28/2007 repeat in 5 years due to prep CYSTOSCOPY 09/12/2017 DENTAL SURGERY PROCEDURE NEC wisdom teeth extraction DRAIN SKIN ABSCESS, COMPLIC/MULT 12/29/2010 INCISION AND DRAINAGE SKIN ABSCESS MULTIPLE performed by BRISA HALL at OR [facility] EGD, FLEXIBLE, DIAGNOSTIC 01/16/2019 [facility] / [facility] EXPLORATION OF ABDOMEN 09/22/2010 EXPLORATORY LAPAROTOMY performed by JUAN CASTELLANOS at OR [facility] IDENTIFY SENTINEL NODE, RADIOACTIVE TRACER 09/22/2010 INJECTION PROCEDURE FOR IDENTIFICATION SENTINEL NODE performed by SHRAVAN JACINTO at OR [facility] INFORMATION 09/2008 left foot surgery INFORMATION 09/2008 Ruptured peroneus longus INSER TUNN ACC DEV;5 YRS/OLDER 09/22/2010 INSERT TUNNELED CENTRAL VENOUS ACCESS W* performed by SHRAVAN JACINTO at OR [facility] LAPAROSCOPY;RMV ADNEXAL STRUCT 09/22/2010 LAPAROSCOPIC OOPHORECTOMY AND OR SALPINGECTOMY performed by JUAN CASTELLANOS at OR [facility] MASTECTOMY, MODIFIED RADICAL 09/22/2010 MASTECTOMY MODIFIED RADICAL INCLUDING AXILLARY LYMPH NODES OR WTIHOUT PECTORALIS MINOR MUSCLE BUT EXCLUDING PECTORALIS MAJOR MUSCLE performed by SHRAVAN JACINTO at OR [facility] MISCELLANEOUS ORDER ([facility] ONLY) 09/22/2010 tubes and ovaries MUSCLE/FASCIA DEBRIDEMENT, FIRST 20 CM2 12/29/2010 DEBRIDEMENT SKIN SUBCUTANEOUS TISSUE AND MUSCLE performed by BRISA HALL at OR [facility] REMOVAL OF OVARY(S) 09/22/2010 OOPHORECTOMY performed by JUAN CASTELLANOS at OR [facility] REMOVE CATARACT, INSERT LENS PROSTH Left 02/20/2016 Left EXTRACAPSULAR CATARACT REMOVAL WITH INTRAOCULAR LENS performed by Lincoln Garces MD at OR [facility] REMOVE CATARACT, INSERT LENS PROSTH Right 03/09/2016 Right EXTRACAPSULAR CATARACT REMOVAL WITH INTRAOCULAR LENS performed by Lincoln Garces MD at OR [facility] REMOVE GALLBLADDER 03/14/1996 laparoscopic REMOVE TISSUE JEWEL BEARING MAKER(S) 12/29/2010 REMOVAL JEWEL BEARING MAKER WITHOUT INSERTION PROSTHESIS performed by BRISA HALL at OR [facility] SACROILIAC JOINT INJECT W/GUIDANCE 04/28/2020 INJECTION SACROILIAC JOINT performed by Pedro Kim DO at OR [facility] SACROILIAC JOINT INJECT W/GUIDANCE 10/20/2022 INJECTION SACROILIAC JOINT performed by Pedro Kim DO at OR [facility] TOTAL ABD HYSTERECTOMY W/WO REMOVAL OF TUBE(S) 09/22/2010 tubes and ovaries removed ONLY UMBIL HERNIA REPAIR (REDUCIBLE) AGE 5+YR 03/17/2012 03/17/2012 umbilical hernia repair - [facility] Dr. 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: [employer] Employer: [employer] Tobacco Use Smoking status: Former Current packs/day: 0.00 Average packs/day: 2.0 packs/day for 14.0 years (28.0 ttl pk-yrs) Types: Cigarettes Start date: 03/07/1970 Quit date: 03/07/1984 Years since quittin.7 Smokeless tobacco: Never Vaping Use Vaping status: Never Used Substance and Sexual Activity Alcohol use: No Drug use: No Sexual activity: Not Currently Partners: Male Other Topics Concern Service Not Asked Blood Transfusions Not Asked Caffeine Concern Not Asked Occupational Exposure Not Asked Hobby Hazards Not Asked Sleep Concern Not Asked Stress Concern Not Asked Weight Concern Not Asked Special Diet Yes Comment: increase fruits and veggies, calcium intake reviewed Back Care Not Asked Exercise No Comment: usually does walk Bike Helmet Not Asked Seat Belt Yes Self-Exams Yes Comment: breast Social History Narrative [facility] INFORMATION ENIVIRONMENTAL HISTORY: House: [place] Type of Heating System: Oil and Forced air Air Conditioning: Yes Room, LR, son's BR Basement: Finished, Carpeted rooms, Dampness and Dehumidifier Home have cockroaches: No Irritants in the home: Scented Candles Patient's bedroom: FLOOR: first TYPE OF CHOLO: Hardwood Beds: AMOUNT : 1 TYPE OF BEDS: Mattress and Box spring Pillows: AMOUNT: 4 TYPE OF PILLOWS: Synthetic (hypoallergenic, polyester) Bedroom contains: Stuffed animals and Bookshelves/Books Pets: 2 cat(s) [place]: No jockey agent; no occupation related worsening of symptoms. Entered By: Marquez Bush MD 05/10/2003 Social Determinants of Health Financial Resource Strain: Low Risk (12/28/2022) Financial Resource Strain Do you have any trouble paying for your medications, or do you think you might in the future? (Adult - for ages 18 years and over): No Does your family have trouble paying for medicine? (Household - for ages 0-17 years): Not on file Food Insecurity: No Food Insecurity (12/28/2022) Food Insecurity Do you need food for this week? (Adult - for ages 18 years and over): No Are you able to get enough food for your family? (Household - for ages 0-17 years): Not on file Does your family need food this week? (Household - for ages 0-17 years): Not on file Do you always have enough food for your family? (Household - for ages 0-17 years): Not on file Transportation Needs: No Transportation Needs (12/28/2022) Transportation Needs Do you have trouble getting a ride to medical visits or work? (Adult - for ages 18 years and over):Never True Does your family have a hard time getting a ride to doctors visits? (Household - for ages 0-17 years): Not on file Has lack of transportation kept you from medical appointments, meetings, work, or from getting things needed for daily living? Check all that apply. (Adult - for ages 18 years and over): Not on file Do you (or your family) have trouble finding or paying for a ride (transportation)? (Household - for ages 0-17 years): Not on file Social Connections: Socially Integrated (12/28/2022) Social Connections How often do you feel lonely or isolated from those around you? (Adult - for ages 18 years and over): Sometimes Housing Stability: Low Risk (12/28/2022) Housing Stability Do you currently live in a custodial or have no steady place to sleep at night? (Adult - for ages 18 years and over): No Do you think you are at risk of becoming homeless? (Adult - for ages 18 years and over): No Does your family worry about paying for your home or becoming homeless? (Household - for ages 0-17 years): Not on file Are you homeless or worried that you might be in the future? (Adult - for ages 18 years and over): Not on file Are you (or your family) homeless or worried that you might be in the future? (Household - for ages0-17 years): Not on file Review of patient's allergies indicates: Allergen Reactions Clindamycin Esophageal swelling and a rash Gabapentin Edema Other Pt c/o edema in feet and hands Tricyclic Antidepressants Swelling of hands and arms Allopurinol Edema Other, Fever and Hives Benzocaine Codeine Itching rash Decadron [Dexamethasone] Tachycardia Erythromycin stomach cramps Fluticasone Hyoscyamine Edema Other Nickel Rash Potassium Rash with one formulation PO tabs Tape [Adhesive Tape] Vagisil Januvia [Sitagliptin Phosphate] Edema Other Ankle and hand swelling Current Outpatient Medications Medication Sig Dispense Refill TYLENOL ARTHRITIS PAIN 650 MG PO TBCR 2 at bedtime NEBULIZER COMPRESSOR MISC Use as directed (Patient not taking: Reported on 11/16/2023) 1 Each 1 aspirin 81 MG chewable tablet Take 1 Tab by mouth daily. with food. 100 Tab 5 Multiple Vitamins-Minerals (WOMENS 50+ ADVANCED) CAPS Take by mouth. Biotin 10 MG TABS Take by mouth. B Complex-Folic Acid (SUPER B COMPLEX MAXI) TABS Take by mouth. CPAP every night at bedtime. Auto 10-20 cm Spacer/Aero-Holding Chambers Device Use with advair and albuterol 1 Each 0 Sodium Fluoride 1.1 % Dental Gel Apply a thin ribbon to toothbrush. Wagoner twice daily in place of normal toothpaste 100 mL 4 Furosemide 20 MG Oral Tablet (Lasix) TAKE ONE TABLET BY MOUTH DAILY NEEDED FOR LEG SWELLING, FLUID ACCUMULATION OR WEIGHT GAIN. 30 Tablet 11 rOPINIRole HCl 0.5 MG Oral Tablet (Requip) TAKE 1 TABLET BY MOUTH AT BEDTIME NEEDED RESTLESS LEGS 90 Tablet 3 Nystatin-Triamcinolone 242776-8.1 UNIT/GM-% External Cream (Mycolog) APPLY TOPICALLY TO AFFECTED AREA TWO TIMES A DAY FOR 14 DAYS 120 g 1 Warfarin Sodium 5 MG Oral Tablet (Coumadin) Take by mouth 5 mg ( 1 tablet) every Sun, Shira; 7.5 mg (1 1/2 tablets) all other days or as directed 130 Tablet 3 cycloSPORINE 0.05 % Ophthalmic Emulsion (Restasis) Instill 1 drop into both eyes every 12 hours (Patient not taking: Reported on 11/16/2023) 60 Each 6 Atorvastatin Calcium 20 MG Oral Tablet (Lipitor) TAKE 1 TABLET BY MOUTH IN THE MORNING 90 Tablet 9 GNP UltiCare Pen [place] 32G X 4 MM (Insulin Pen Needle) use to inject basaglar once daily 100 Each3 Ozempic (2 MG/DOSE) 8 MG/3ML Subcutaneous Solution Pen-injector (Semaglutide (2 MG/DOSE)) Inject 2 mg under the skin once a week. 9 mL 3 Ondansetron HCl 4 MG Oral Tablet Take 1 Tablet by mouth every 6 hours as needed for Nausea. 60 Tablet 3 Empagliflozin 25 MG Oral Tablet (Jardiance) Take 1 Tablet by mouth in the morning. 90 Tablet 3 Insulin Glargine Solostar 100 UNIT/ML Subcutaneous Solution Pen-injector (Basaglar KwikPen) Inject 15 Units under the skin every night at bedtime. Titrate up as direct by clinic. Max daily dose of 25units. (Patient taking differently: Inject 10 Units under the skin every night at bedtime. Titrate up as direct by clinic. Max daily dose of 25 units.) 30 mL 5 Potassium Citrate ER 10 MEQ (1080 MG) Oral Tablet Extended Release (Urocit-K) TAKE 3 TABLETS BY MOUTH IN THE MORNING THEN 2 TABLETS IN THE EVENING (Patient taking differently: 2 in the morning 3 in the evening) 150 Tablet 6 Methotrexate Sodium 50 MG/2ML Injection Solution INJECT UNDER THE SKIN (0.8ML) 20MG ONCE A WEEK. 4 mL 5 Famotidine 40 MG Oral Tablet (Pepcid) Take 1 Tablet by mouth at bedtime. 90 Tablet 1 Levalbuterol Tartrate 45 MCG/ACT Inhalation Aerosol (Xopenex HFA) Inhale 1 Puff by mouth every 4 hours as needed for Wheezing. 15 g 3 Ferrous Sulfate 325 (65 Fe) MG Oral Tablet (FeroSul) Take 1 Tablet by mouth daily. 90 Tablet 1 Metoprolol Tartrate 25 MG Oral Tablet (Lopressor) TAKE 1/2 TABLET BY MOUTH IN THE MORNING AND TAKE 1/2 TABLET BEFORE BEDTIME 90 Tablet 1 Sodium Bicarbonate 650 MG Oral Tablet Take 1 Tablet by mouth in the morning and 1 Tablet before bedtime. 180 Tablet 3 medroxyPROGESTERone Acetate 10 MG Oral Tablet (Provera) Take 1 Tablet by mouth in the morning. 30 Tablet 12 FreeStyle Dewey 3 Sensor Use as directed. 6 Each 3 Amoxicillin 500 MG Oral Capsule (Amoxil) take 1 capsule (500 mg) by oral route 2 times per day. Start this 2 days before tooth extraction. (Patient not taking: Reported on 08/22/2023) 14 Capsule 0 BD Credit Administration Manager Tray 27G X 1/2" 1 ML Kit (Tuberculin-Allergy Syringes) USE DIRECTED TO INJECT METHOTREXATE 0.6 ML ONCE A WEEK 25 Kit 5 Leucovorin Calcium 5 MG Oral Tablet (Wellcovorin) Take 1 Tablet by mouth once a week. 12 Tablet 9 Gemtesa 75 MG Oral Tablet (Vibegron) Take 1 Tablet by mouth in the morning. 90 Tablet 3 Escitalopram Oxalate 20 MG Oral Tablet (Lexapro) TAKE ONE TABLET BY MOUTH DAILY 90 Tablet 3 Verapamil HCl ER 120 MG Oral Tablet Extended Release (Isoptin SR) TAKE 1 TABLET BY MOUTH 3 TIMES A DAY. 270 Tablet 3 Fluticasone-Salmeterol 230-21 MCG/ACT Inhalation Aerosol (Advair HFA) Inhale 2 Puffs by mouth in the morning and 2 Puffs before bedtime. 12 g 1 Magnesium Chloride 64 MG Oral Tablet Delayed Release (Mag64) TAKE 3 TABLETS BY MOUTH IN THE MORNING, TAKE 3 TABLETS WITH DINNER AND TAKE 2 TABLETS AT BEDTIME 450 Tablet 3 Lansoprazole 15 MG Oral Capsule Delayed Release (Prevacid) Take 1 Capsule by mouth in the morning. 90 Capsule 3 Montelukast Sodium 10 MG Oral Tablet (Singulair) TAKE 1 TABLET BY MOUTH BEFORE BEDTIME 90 Tablet 2 buPROPion HCl ER (XL) 150 MG Oral Tablet Extended Release 24 Hour (Wellbutrin XL) TAKE ONE TABLET BY MOUTH IN THE MORNING 90 Tablet 3 Mupirocin 2 % External Ointment (Bactroban) Apply topically to affected area as needed for Other. metFORMIN HCl ER 500 MG Oral Tablet Extended Release 24 Hour (Glucophage XR) TAKE 4 TABLETS BY MOUTH DAILY WITH DINNER. 360 Tablet 3 oxyCODONE HCl 5 MG Oral Tablet (Oxy IR) Take 1 Tablet by mouth every 8 hours as needed for severe Pain 60 Tablet 0 No current facility-administered medications for this visit. REVIEW OF SYSTEMS: See HPI - otherwise negative OBJECTIVE: Filed Vitals: 11/30/23 1258 BP: 140/63 Pulse: 94 Temp: 36.4 C (97.6 F) TempSrc: Tympanic SpO2: 96% Weight: 124.5 kg (274 lb 8 oz) Wt Readings from Last 5 Encounters: 11/30/23 124.5 kg (274 lb 8 oz) 11/04/23 122.2 kg (269 lb 8 oz) 10/03/23 123.5 kg (272 lb 4 oz) 09/20/23 123.8 kg (273 lb) 09/15/23 123.8 kg (273 lb) PHYSICAL EXAM: ECOG: Performance Status 2 = 60-70% Bedtime, < 50% daytime General Appearance: Normal - appearing patient in no acute distress, in wheel chair with neck brace HEENT: Normal - No oral or pharyngeal masses, ulceration or thrush noted, no sinus tenderness Lymph Nodes: Normal - No palpable lymph nodes in the neck or supraclavicular areas Lungs/Thorax: Normal - Clear to auscultation Heart: Normal - Regular rate and rhythm, normal S1, S2, no appreciable murmurs, rubs, gallops Breast: no palpable breast mass in either breast. No skin lesions noted. No axilla LN noted bilaterally. Pulses/Extremities: Normal - 2+ throughout and symmetrical, no edema. Mild lymphedema in left arm. No swelling in left hand Abdomen: Normal - Soft, nontender, bowel sounds present, no appreciable hepatosplenomegaly, no palpable masses Musculoskeletal: Normal - No pain on palpation over bony prominence, no joint or bony deformity Neurologic: Alert and oriented LABS: Tumor markers pending Component Latest Ref Rng 10/28/2023 WBC 4.00 - 10.80 K/uL 11.34 (H) RBC 3.85 - 5.15 M/uL 3.75 HGB 12.0 - 15.3 g/dL 12.3 HCT 36.0 - 45.2 % 37.5 MCV 81.5 - 97.5 fL 100.0 MCH 27.0 - 34.0 pg 32.8 MCHC 32.0 - 36.0 g/dL 32.8 RDW 11.5 - 15.5 % 15.4 PLT 140 - 400 K/uL 342 MPV 6.6 - 11.1 fL 10.2 Component Latest Ref Rng 10/28/2023 BUN 6 - 20 mg/dL 18 CREATININE 0.5 - 1.0 mg/dL 0.9 EGFR >=60 mL/min 73 SODIUM 135 - 146 mmol/L 140 POTASSIUM 3.5 - 5.1 mmol/L 4.3 CHLORIDE 98 - 107 mmol/L 104 CO2 22 - 32 mmol/L 21 (L) ANION GAP 7 - 15 mmol/L 15 GLUCOSE 70 - 120 mg/dL 171 (H) Albumin 3.8 - 5.0 g/dL 3.9 AST 10 - 35 U/L 14 Alkaline Phosphatase 35 - 130 U/L 95 Bilirubin, Total <=1.2 mg/dL 0.3 CALCIUM 8.4 - 10.2 mg/dL 9.4 Protein 6.0 - 8.3 g/dL 6.8 ALT 10 - 35 U/L 15 -PET-CT scan (06/03/2021 --> no FDG avid disease noted anywhere else. IMPRESSION: History of triple negative breast cancer BRCA1 positive S/P bilateral mastectomies. S/P Laparoscopic BSO on 09/22/10 Reviewed her recent blood workup, overall unremarkable findings. Mild elevation in WBC-she reports that she recently had bronchitis Chronic left upper extremity lymphedema noted which is not a new finding. Overall her clinical condition has remained stable, no evidence of recurrent disease noted. PLAN: Lab pending Port flush every 6 weeks RTC 6 months ca 125, ca 19-9, ca 27-29 with Shoemaker Flu shot today Call as needed ANDREW Amador documented in this encounter Nursing Notes * Germania Loya CMA - 11/30/2023 12:59 PM EDT Patient identifed by name and birthdate Do you have any concerns about pain management for today's visit? Yes. Patient instructed to discuss pain concerns with provider during the visit today Living Will or Advance Directive for Health Care as noted on the problem list. [facility] is a way you can talk to your provider on line through e-mail. Would you like to sign up? I can activate it for you? ALREADY ACTIVE Filed Vitals: 11/30/23 1258 BP: 140/63 Pulse: 94 Temp: 36.4 C (97.6 F) TempSrc: Tympanic SpO2: 96% Weight: 124.5 kg (274 lb 8 oz) Patient was instructed to not get up on the exam table/exam chair until directed and assisted by their provider; patient is to remain seated in the chair/ wheelchair/ exam table/ exam chair for fall prevention and safety reasons. Patient is aware to have assistance to step down off exam table/exam chair with personnel. Patient voiced full comprehension of instructions. documented in this encounter Plan of Treatment Upcoming Encounters Date Type Department Care Team (Late st Contact Info) Description 12/07/2023 1:00 PM EDT Office Visit Pharmacy, [facility] [address] [facility] [place] [address] Pharmacist2, [facility] [address] [facility] [place] [address] 12/07/2023 1:40 PM EDT Anticoagulation Pharmacy, [facility] [address] [facility] [place] [address] Pharmacist2, [facility] [address] [facility] [place] [address] 12/27/2023 3:30 PM EDT Office Visit Gastroenterology, [facility] [address] [place] [address] Franchesca Almaraz CRNP [address] [place] [address] 01/10/2024 1:00 PM EST Office Visit Family Practice [facility] [address] [place] [address] Landon Quiles DO [address] [place] [address] 01/11/2024 1:00 PM EST Immunization/Injection Hematology/Oncology Treatment, [place] [address] [facility], [place] [phone] Park, Chair 2 Hem Onc [facility] [address] [facility] [place] [address] 05/04/2024 2:30 PM EST Office Visit Cardiology, [facility] [address] [facility] [place] [address] Catalina Schafer CRNP [address] [place] [address] 05/11/2024 1:40 PM EST Office Visit Family Practice [facility] [address] [facility] [place] [address] Jackeline Diaz CRNP [address] [facility] [place] [address] 05/29/2024 11:15 AM EDT Office Visit Hematology/Oncology [facility] [address] [facility] [place] [phone] Abdirizak Shoemaker MD [address] [facility] [place] [address] 09/17/2024 11:40 AM EDT Office Visit Sleep Disorders Ctr [facility] [address] [facility] [place] [phone] Bernadette Zuniga, [address] [facility] [place] [address] 11/20/2024 1:45 PM EDT Office Visit Urology, [facility] [address] [facility] [place] [address] Faustino Cárdenas MD [address] [place] [address] Pending Results Name Type Priority Associated Diagnoses Date /Time CA 27.29 Lab Routine Malignant neoplasm of overlapping sites of both breasts in female, estrogen receptor positive (HCC) 11/30/2023 1:26 PM EDT Scheduled Orders Name Type Priority Associated Diagnoses Orde r Schedule CA 27.29 Lab Routine Malignant neoplasm of overlapping sites of both breasts in female, estrogen receptor positive (HCC) Expected: 11/30/2023, Expires: 11/29/2024 Scheduled Procedures Name Priority Associated Diagnoses Date/Ti [...] this encounter Medical Devices Implanted Type Area Playground Attendant Device Identifier Shelf Expiration Date Model / Serial / Lot Graft Flex Hd 6 X 16cm [id number] - [id number] Implanted:Qty : 1 on 09/22/[address] [facility] [place] Tissue - Human Left: Breast MUSCULOSKELETAL TRANSPLANT FND 04/28/2013 [id number] / [id number] / Graft Flex Hd 6 X 16cm [id number] - [id number] Implanted:Qty : 1 on 09/22/[address] [facility] [place] Tissue - Human Right: Chest MUSCULOSKELETAL TRANSPLANT FND 04/28/2013 [id number] / [id number] / Mediport Pwr Isp 8fr [id number] - [id number] Implanted:Qty : 1 on 09/22/[address] [facility] [place] Right: Chest CR BARD : ACCESS SYSTEMS 07/13/2012 [id number] / / [id number] Breast Implant [id number] Saline - [id number] Implanted:Qty : 1 on 09/22/[address] [facility] [place] Right: Breast Personal MedicineOR EVA 12/13/2013 [id number] / [id number] Breast Implant [id number] Saline - [id number] Implanted:Qty : 1 on 09/22/[address] [facility] [place] Left: Breast MENTOR EVA 07/13/2014 [id number] / [id number] / [id number] Lens Intraoc 16.5 - [id number] - [id number] Implanted:Qty : 1 on 02/20/2016 by Lincoln Garces MD at OR [facility] Left: Eye BAUSCH & LOMB 08/04/2020 [id number] / [id number] / [id number] Lens Intraoc 15.5 - [id number] - [id number] Implanted:Qty : 1 on 03/09/2016 by Lincoln Garces MD at OR [facility] Right: Eye BAUSCH & LOMB 12/04/2017 [id number] / [id number] / documented as of this encounter Results * CA 19-9 (11/30/2023 1:26 PM EDT) CA 19-9 13.6 <35.0 U/mL 12/01/2023 1:[address] [facility] Blood Venous blood specimen / Unknown Venipuncture / Unknown 11/30/2023 1:26 PM EDT 11/30/2023 2:02 PM EDT Daniella MORALES LAB BLOOD ORDERAB LES LABORATORY [facility] [address] [place] [address] * CA 125 (11/30/2023 1:26 PM EDT) CA 125 10.4 <=38.1 U/mL 12/01/2023 1:[address] [facility] Blood Venous blood specimen / Unknown Venipuncture / Unknown 11/30/2023 1:26 PM EDT 11/30/2023 2:02 PM EDT Daniella MORALES LAB BLOOD ORDERAB LES [facility]ATORY [facility] [address] [facility] [place] [address] documented in this encounter Visit Diagnoses Diagnosis Malignant neoplasm of overlapping sites of both breasts in female, estrogen receptor positive (HCC)- Primary Need for prophylactic vaccination and inoculation against influenza documented in this encounter Advance Directives * [...] and were consensually agreed upon. Care Teams High Risk Ob Relationship Specialty Start Date End Date Landon Quiles DO [address] [place] [address] PCP - General Family Medicine 03/19/19 documented as of this encounter
--- OUTSIDE RECORDS SUMMARY | 2023-12-25 20:04 | External Medical Summary | Summary of Care ---
Author Name Unknown Organization [facility] Address [address] [place] [address] Phone [phone] Care Team Providers Care Packaging Line Operator Name Role Phone Landon Quilesray Primary Care Provider Reason for Visit * Reason Comments Procedure Port Flush/lab draw Encounter Details Date Type Department Care Team (Late st Contact Info) Description 11/30/2023 1:30 PM EDT Nurse Only Hematology/Oncology Treatment, [address] [phone] Park, Chair 3 Hem Onc [address] [address] Procedure (Port Flush/lab draw) Allergies Active Allergy Reactions Criticality Noted Date [...] as of this encounter (statuses as of 12/18/2023) Medications Medication Sig Dispensed Refills Start Date End Date Status TYLENOL ARTHRITIS PAIN 650 MG PO TBCR 2 at bedtime Active NEBULIZER COMPRESSOR MISCIndications:A sthma, severity to be determined Use as directed 1 Each 1 3 Active Additional Information Patient not taking.Informant: Patient, Reported on 11/16/2023 aspirin 81 MG chewable tabletIndications :Morbid obesity [...] Gel Apply a thin ribbon to toothbrush. [place] twice daily in place of normal toothpaste [...] 90 Tablet 3 3 Active Nystatin-Triamcin olone 002913-1.1 UNIT/GM-% External Cream (Mycolog)Indicati ons:Tinea cruris APPLY [...] 11/16/2023 Atorvastatin Calcium 20 MG Oral Tablet (Lipitor)Indicati ons:Dyslipidemia, goal LDL below 100 TAKE 1 TABLET BY MOUTH IN THE MORNING 90 Tablet 9 3 01/01/20 24 Active GNP UltiCare Pen [place] 32G X 4 MM (Insulin Pen Needle) [...] Information Patient not taking.Reported on 08/22/2023 BD Plant Equipment Engineer Tray 27G X 1/2" 1 ML Kit [...] Release (Isoptin SR)Indications:PA T (paroxysmal atrial tachycardia) ([facility]) TAKE 1 TABLET BY MOUTH 3 TIMES [...] derate episode of recurrent major depressive disorder ([facility]),PTSD (post-traumatic stress disorder) TAKE ONE TABLET BY [...] for severe Pain 60 Tablet 4 Active FreeStyle Dewey 3 SensorIndications :Type 2 diabetes mellitus with hemoglobin A1c goal of less than 8.0% ([facility]) Use as directed. 6 Each 3 4 12/07/19 24 Discontin ued(Refil l) documented as of this encounter (statuses as of 12/18/2023) Active Problems Problem Noted Date Diagnosed Date [...] as of this encounter (statuses as of 12/18/2023) Resolved Problems Problem Noted Date Diagnosed Date [...] as of this encounter (statuses as of 12/18/2023) Immunizations Name Administration Dates Next Due COVID-19 mRNA, LNP-s, No Pre serve, 2-Dose Series ([place]) 12/18/2020,06/20/2020,05/30/2020 COVID-19, LNP-s, No Preserve , Marshal-sucrose, Ages 12+ (Pfizer) 06/25/2021 Covid-19, Mrna, Lnp-s, Pf, B ivalent, 30 Mcg, IM, 12 yrs and above ([place]) 12/31/2021 H1N1 2009 Influenza, IM 02/24/2009 Hepatitis [...] 18 years and over) Not on file 3 Are you (or your family) [place] eless [...] on file documented as of this encounter Nursing Notes * Regine Gleason RN - 11/30/2023 1:51 PM EDT Patient to chair 3 via wheelchair Patient voices no complaints or concerns Safety and Risk for Injury Patient will remain free from injury. Ensure appropriate safety devices are available. Provide and maintain safe environment. Patient instructed on use of heat and massage functions where applicable. Patient shown how to operate the heat function of the chair and to alert nursing staff if the chair feels too warm. Patient instructed on the risk of potential stuart while using the heat function. Goals: patient will remain free of injury Possible barriers to meeting goals: Stability of the patient: Moderately stable - low risk of patient condition declining or worsening Summary regarding today's goals: Met: patient remained free of injury VAD (Venous Access Device) accessed with #19G 1" without difficulty. Flushed easy, positive blood return, lab obtained and sent to lab. VAD flushed with 10 ml NSS and Heparin 5 ml (100 units/ml). Ramos needle removed intact. Patient discharged in good condition, tolerated well documented in this encounter Plan of Treatment Upcoming Encounters Date Type Department Care Team (Latest Contact Info) Description 12/27/2023 3:30 PM EDT Office Visit Gastroenterology, [facility] [address] [place] [address] Franchesca Almaraz CRNP [address] [place] [address] 01/04/2024 1:00 PM EDT Anticoagulation Pharmacy, [facility] [address] [facility] [place], [place] [address] Pharmacist2, [facility] [address] [place] [address] 01/10/2024 1:00 PM EST Office Visit Family Practice [facility] [address] [place] [address] Landon Quiles DO [address] [place] [address] 01/11/2024 1:00 PM EST Immunization/Injection Hematology/Oncology Treatment, [place] [address] [facility] [place] [phone] Sarai, Chair 2 Hem Onc [facility] [address] [place], [place] [address] 02/22/2024 1:30 PM EST Office Visit Pharmacy, [facility] [address] [place], [place] [address] Pharmacist2, [facility] [address] [place] [address] 02/22/2024 2:00 PM EST Pharmacy Pharmacy, [facility] [address] [place] [address] Pharmacist2, [facility] [address] [place] [address] 02/22/2024 2:30 PM EST Anticoagulation Pharmacy, [facility] [address] [facility] [place] [address] Pharmacist2, [facility] [address] [facility] [place] [address] 05/11/2024 1:40 PM EST Office Visit Family Practice [facility] [address] [facility] [place] [address] Jackeline Diaz CRNP [address] [facility] [place] [address] 05/29/2024 11:15 AM EDT Office Visit Hematology/Oncology [facility] [address] [facility] [place] [phone] Abdirizak Shoemaker MD [address] [facility] [place] [address] 09/17/2024 11:40 AM EDT Office Visit Sleep Disorders Ctr [facility] [address] [facility] [place] [phone] Bernadette Zuniga DO [address] [facility] [place] [address] 11/20/2024 1:45 PM EDT Office Visit Urology, [facility] [address] [facility] [place] [address] Faustino Cárdenas MD [address] [place] [address] Scheduled Procedures Name Priority Associated Diagnoses Date/Ti [...] this encounter Medical Devices Implanted Type Area Scrap Preparation Supervisor Device Identifier Shelf Expiration Date Model / Serial / Lot Graft Flex Hd 6 X 16cm [id number] - [id number] Implanted:Qty : 1 on 09/22/2010 [place] [facility] - Human Left: Breast MUSCULOSKELETAL TRANSPLANT FND 04/28/2013 [id number] / [id number] / Graft Flex Hd 6 X 16cm [id number] - [id number] Implanted:Qty : 1 on 09/22/2010 [place] [facility] [place] - Human Right: Chest MUSCULOSKELETAL TRANSPLANT FND 04/28/2013 [id number] / [id number] / Mediport Pwr Isp 8fr [id number] - [id number] Implanted:Qty : 1 on 09/22/2010 at [place] [facility] Right: Chest CR BARD : ACCESS SYSTEMS 07/13/2012 [id number] / / [id number] Breast Implant [id number] Saline - [id number] Implanted:Qty : 1 on 09/22/2010 [place] [facility] Right: Breast MENTOR EVA 12/13/2013 [id number] / [id number] Breast Implant 354-2515 Saline - [id number] Implanted:Qty : 1 on 09/22/2010 at [place] [facility] Left: Breast MENTOR EVA 07/13/2014 354-2515 / [id number] Lens Intraoc 16.5 - [id number] - [id number] Implanted:Qty : 1 on 02/20/2016 by Lincoln Garces MD at OR [facility] Left: Eye BAUSCH & LOMB 08/04/2020 [id number] / [id number] / [id number] Lens Intraoc 15.5 - [id number] - [id number] Implanted:Qty : 1 on 03/09/2016 by Lincoln Garces MD at OR [facility] Right: Eye BAUSCH & LOMB 12/04/2017 [id number] / [id number] / documented as of this encounter Procedures Procedure Name Priority Date/Time Associated Diagnosis Comments CA 27.29 Routine 11/30/2023 1:26 PM EDT Malignant neoplasm of overlapping sites of both breasts in female, estrogen receptor positive (HCC) CA 125 Routine 11/30/2023 1:26 PM EDT Malignant neoplasm of overlapping sites of both breasts in female, estrogen receptor positive (HCC) CA 19-9 Routine 11/30/2023 1:26 PM EDT Malignant neoplasm of overlapping sites of both breasts in female, estrogen receptor positive (HCC) documented in this encounter Results * CA 19-9 (11/30/2023 1:26 PM EDT) CA 19-9 13.6 <35.0 U/mL 12/01/2023 1:30 AM EDT LABORATORY [facility] Blood Venous blood specimen / Unknown Venipuncture / Unknown 11/30/2023 1:26 PM EDT 11/30/2023 2:02 PM EDT Daniella MORALES LAB BLOOD ORDERAB LES LABORATORY [facility] [address] [place] [address] * CA 27.29 (11/30/2023 1:26 PM EDT) CA27.29 36 <38 U/mL 12/04/2023 3:16 PM EDT [facility] [place] Comment: This test was performed using the Siemens chemilumi- nescent method. Values obtained from different assay methods cannot be used interchangeably. CA27.29 levels, regardless of value, should not be interpreted as absolute evidence of the presence or absence of disease. Test Performed at: [facility] [address] [place] [address] Yeison Aggarwal M.D., Ph.D.,Director of Laboratories Blood Venous blood specimen / Unknown Venipuncture / Unknown 11/30/2023 1:26 PM EDT 11/30/2023 2:01 PM EDT Daniella Vilaherman MORALES LAB BLOOD ORDERAB LES [facility] [place] [address] [place] [address] * CA 125 (11/30/2023 1:26 PM EDT) CA 125 10.4 <=38.1 U/mL 12/01/2023 1:30 AM EDT LABORATORY [facility] Blood Venous blood specimen / Unknown Venipuncture / Unknown 11/30/2023 1:26 PM EDT 11/30/2023 2:02 PM EDT Daniella S Flex MORALES LAB BLOOD ORDERAB LES LABORATORY [facility] [address] [place] [address] documented in this encounter Visit Diagnoses Diagnosis History of breast cancer- Primary Personal history of malignant neoplasm of breast Malignant neoplasm of overlapping sites of both breasts in female, estrogen receptor positive (HCC) Encounter for central line care Fitting and adjustment of vascular catheter documented in this encounter Administered Medications Inactive Administered Medications - up to 3 most recent administrations Medication Order MAR Action Action Date Dose Rate Site hEParin 100 UNIT/ML Lock Flush inj 500 Units 500 Units (5 mL), IV Lock, PRN Other, IV Flush, Starting on Tue11/30/23 at 1354, Until Tue11/30/23 at 1808, For 24 hours, Do not flush if lock, PICC, or central line not in place; IV infusing or unable to flush. Given 11/30/2023 1:54 PM EDT 500 Units sodium chloride 0.9 % flush central line 10 mL 10 mL, IV Push, PRN Other, IV Flush, Starting on Tue11/30/23 at 1354, Until Tue11/30/23 at 1808, For 24 hours, Do not flush if lock, PICC, or central line not in place; IV infusing or unable to flush. Given 11/30/2023 1:54 PM EDT 10 mL documented in this encounter Advance Directives * [...] and were consensually agreed upon. Care Teams Packaging Line Operator Relationship Specialty Start Date End Date Landon Quiles DO [facility] [place] [address] PCP - General Family Medicine 03/19/19 documented as of this encounter
--- OUTSIDE RECORDS SUMMARY | 2023-12-25 20:04 | External Medical Summary | Summary of Care ---
Author Name Unknown Organization [facility] Address [address] [place] [address] Phone [phone] Care Team Providers Care Corporate Travel Agent Name Role Phone Lalo Quilesr Anayeli Primary Care Provider Reason for Visit * Reason Comments Dosage Adjustment In Person (Anticoag Cl inic) Encounter Details Date Type Department Care Team (Latest Contact Info) Description 12/07/2023 1:40 PM EDT Anticoagulation Pharmacy, [facility] [address] [place] [address] Pharmacist2, [facility] [address] [place] [address] Anticoagulation management encounter*; History of pulmonary embolism; Type 2 diabetes mellitus with hemoglobin A1c goal of less than 8.0% ([facility]) Allergies Active Allergy Reactions Criticality Noted Date [...] Gel Apply a thin ribbon to toothbrush. [place] twice daily in place of normal toothpaste [...] 90 Tablet 3 3 Active Nystatin-Triamcin olone 433118-9.1 UNIT/GM-% External Cream (Mycolog)Indicati ons:Tinea cruris APPLY [...] 3 01/01/20 24 Active GNP UltiCare Pen [place] 32G X 4 MM (Insulin Pen Needle) [...] Information Patient not taking.Reported on 08/22/2023 BD Database Administration Manager Tray 27G X 1/2" 1 [...] Release (Isoptin SR)Indications:PA T (paroxysmal atrial tachycardia) ([facility]) TAKE 1 TABLET BY MOUTH 3 TIMES [...] hemoglobin A1c goal of less than 8.0% ([facility]) Use as directed. 6 Each 3 4 Active FreeStyle [place] 3 SensorIndications :Type 2 diabetes mellitus with hemoglobin A1c goal of less than 8.0% ([facility]) Use as directed. 6 Each 3 4 [...] mRNA, LNP-s, No Pre serve, 2-Dose Series ([place] [employer] [facility]) 12/18/2020,06/20/2020,05/30/2020 COVID-19, LNP-s, No Preserve , Marshal-sucrose, Ages 12+ (Pfizer) 06/25/2021 Covid-19, Mrna, Lnp-s, Pf, B ivalent, 30 Mcg, IM, 12 yrs and above ([place] [facility]) 12/31/2021 H1N1 2009 Influenza, IM 02/24/2009 Hepatitis [...] this encounter Progress Notes * Fabricio Tovar, [facility] - 12/07/2023 1:01 PM EDT Images from the original note were not included. Medication Therapy Disease Management - Anticoagulation Patient: Barbie Davidson | : 1955 Subjective Contacts Contact Date/Time Type Contact Phone/Fax 11/30/2023 05:12 AM EDT Vendor (Outgoing) Barbie Davidson [phone] 12/04/2023 05:13 AM EDT Vendor (Outgoing) Barbie Davidson [phone] 12/06/2023 05:13 AM EDT Vendor (Outgoing) Barbie Davidson [phone] Patient-Reported Symptoms: Objective Current Warfarin Dose As of 12/07/2023 Warfarin maintenance plan: 5 mg (5 mg x 1) every Sun, Shira; 7.5 mg (5 mg x 1.5) all other days INR Result As of 12/07/2023 INR goal: 2.0-3.0 INR used for dosin.1 (12/07/2023) Assessment & Plan Warfarin Plan As of 12/07/2023 Full warfarin instructions: 12/06: Hold; Otherwise 5 mg every Sun, Tue, Shira; 7.5 mg all other days Next INR check: 01/04/2024 Repeat PT/INR in 6 week(s) Weekly dose: decreased Additional Dosing Information: Description Bactrim dose 2.5mg MWF, 5mg all other days I spent a total of 10-19 minutes (exact time 10 mins) on the date of service in preparation, delivery, and documentation of the care provided to Barbie Davidson excluding any time spent in the performance of separately billed services or time spent by another provider/QHP. Fabricio Tovar [facility] Clinical Pharmacist 12/07/2023, 1:01 PM documented in this encounter Plan of Treatment Upcoming Encounters Date Type Department Care Team (Late st Contact Info) Description 12/27/2023 3:30 PM EDT Office Visit Gastroenterology, [facility] [address] [place] [address] Franchesca Almaraz CRNP [address] [place] [address] 01/04/2024 1:00 PM EDT Anticoagulation Pharmacy, [facility] [address] [facility] [place] [address] Pharmacist2, [facility] [address] [place] [address] 01/10/2024 1:00 PM EST Office Visit Family Practice [facility] [address] [place] [address] Landon Quiles DO [address] [place] [address] 01/11/2024 1:00 PM EST Immunization/Injection Hematology/Oncology Treatment, [place] [address] [place] [phone] Park, Chair 2 Hem Onc [facility] [address] [facility] [place] [address] 02/22/2024 1:30 PM EST Office Visit Pharmacy, [facility] [address] [place] [address] Pharmacist2, [facility] [address] [facility] [place] [address] 02/22/2024 2:00 PM EST Pharmacy Pharmacy, [facility] [address] [place] [address] Pharmacist2, [facility] [address] [facility] [place], [place] [address] 02/22/2024 2:30 PM EST Anticoagulation Pharmacy, [facility] [address] [place], [place] [address] Pharmacist2, [facility] [address] [facility] [place] [address] 05/04/2024 2:30 PM EST Office Visit Cardiology, [facility] [address] [facility] [place] [address] Catalina Schafer CRNP [address] [facility] [place] [address] 05/11/2024 1:40 PM EST Office Visit Family Practice [facility] [address] [place] [address] Jackeline Diaz CRNP [address] [place] [address] 05/29/2024 11:15 AM EDT Office Visit Hematology/Oncology [facility] [address] [facility] [place] [phone] Abdirizak Shoemaker MD [address] [facility] [place] [address] 09/17/2024 11:40 AM EDT Office Visit Sleep Disorders Ctr [facility] [address] [place] [phone] Bernadette Zuniga DO [address] [place] [address] 11/20/2024 1:45 PM EDT Office Visit Urology, [facility] [address] [place] [address] Faustino Cárdenas MD [address] [place] [address] Scheduled Procedures Name Priority Associated Diagnoses Date/Ti [...] this encounter Medical Devices Implanted Type Area Gantry Crane Operator Device Identifier Shelf Expiration Date Model / Serial / Lot Graft Flex Hd 6 X 16cm [id number] - [id number] Implanted:Qty : 1 on 09/22/[place] [facility] [place] - Human Left: Breast MUSCULOSKELETAL TRANSPLANT FND 04/28/2013 [id number] / [id number] / Graft Flex Hd 6 X 16cm [id number] - [id number] Implanted:Qty : 1 on 09/22/2010 at [place] [facility] [place] Tissue - Human Right: Chest MUSCULOSKELETAL TRANSPLANT FND 04/28/2013 [id number] / [id number] / Mediport Pwr Isp 8fr [id number] - [id number] Implanted:Qty : 1 on 09/22/2010 [place] [facility] [place] Right: Chest CR BARD : ACCESS SYSTEMS 07/13/2012 [id number] / / [id number] Breast Implant 354-2515 Saline - [id number] Implanted:Qty : 1 on 09/22/2010 at [place] [facility] [place] Right: Breast MENTOR EVA 12/13/2013 354-2515 / [id number] Breast Implant 354-2515 Saline - [id number] Implanted:Qty : 1 on 09/22/2010 at [place] [facility] [place] Left: Breast MENTOR EVA 07/13/2014 354-2515 / [id number] Lens Intraoc 16.5 - [id number] - [id number] Implanted:Qty : 1 on 02/20/2016 by Lincoln Garces MD at OR [facility] Left: Eye BAUSCH & LOMB 08/04/2020 [id number] / [id number] / [id number] Lens Intraoc 15.5 - [id number] - [id number] Implanted:Qty : 1 on 03/09/2016 by Lincoln Garces MD at OR [facility] Right: Eye BAUSCH & LOMB 12/04/2017 [id number] / [id number] / documented as of this encounter Procedures Procedure Name Priority Date/Time Associated Diagnosis Comments INR FINGERSTICK, POINT OF CARE STAT 12/07/2023 1:05 PM EDT History of pulmonary embolism Anticoagulation management encounter documented in this encounter Results * INR FINGERSTICK, POINT OF CARE (12/07/2023 1:05 PM EDT) Fingerstick INR 3.1 INR 1:06 PM EDT [facility] 56-02 Blood 12/07/2023 1:05 PM EDT 12/07/2023 1:06 PM EDT Narrative [facility] [place] 56-02 - 12/07/2023 1:06 PM EDT Therapeutic ranges for non-operative patients: Prophylaxsis/treatment of DVT: (Range:2.0-3.0) Treatment of pulmonary embolism:(Range:2.0-3.0) Prevention of systemic embolism from: -tissue heart valves -acute myocardial infarction -valvular heart disease -atrial fibrillation (Range: 2.0-3.0) Mechanical prosthetic valves: (Range: 2.5-3.5) Fabricio Tovar [facility] LAB POINT O F CARE TEST DOCKED DEVICE UNSOLICITED RESULTS [facility] [place] [address]- [address] [place] [address] documented in this encounter Visit Diagnoses Diagnosis Anticoagulation management encounter- Primary Encounter for therapeutic drug monitoring History of pulmonary embolism Personal history of pulmonary embolism Type 2 diabetes mellitus with hemoglobin A1c goal of less than 8.0% ([facility]) documented in this encounter Advance Directives * [...] and were consensually agreed upon. Care Teams Corporate Travel Agent Relationship Specialty Start Date End Date Landon Quiles DO [address] [place] [address] PCP - General Family Medicine 03/19/19 documented as of this encounter
--- OUTSIDE RECORDS SUMMARY | 2023-12-25 20:04 | External Medical Summary | Summary of Care ---
Author Name Unknown Organization [facility] Address [address] [place] [address] Phone [phone] Care Team Providers Care Forest Fire Specialist Supervisor Name Role Phone Landon Quiles DO Primary Care Provider Encounter Details Date Type Department Care Team (Late st Contact Info) Description 12/12/2023 Orders Only PATIENT PORTAL DO NOT DELETE THIS DEPT USED BY [place] MCADAMS [id number] Allergies Active Allergy Reactions Criticality Noted Date [...] as of this encounter (statuses as of 12/12/2023) Medications Medication Sig Dispensed Refills Start Date [...] Gel Apply a thin ribbon to toothbrush. [place] twice daily in place of normal toothpaste [...] 90 Tablet 3 3 Active Nystatin-Triamcino lone 507337-1.1 UNIT/GM-% External Cream (Mycolog)Indicatio ns:Tinea cruris APPLY [...] 3 01/01/20 24 Active GNP UltiCare Pen [place] 32G X 4 MM (Insulin Pen Needle) [...] Information Patient not taking.Reported on 08/22/2023 BD Marketing Communications Associate Tray 27G X 1/2" 1 ML Kit [...] ONE TABLET BY MOUTH DAILY 90 Tablet 4 08/16/19 25 Active Verapamil HCl ER [...] 60 Tablet 4 Active FreeStyle [place] 3 SensorIndications: Type 2 diabetes mellitus with hemoglobin A1c goal of less than 8.0% ([facility]) Use as directed. 6 Each 3 4 Active documented as of this encounter (statuses as of 12/12/2023) Active Problems Problem Noted Date Diagnosed Date [...] as of this encounter (statuses as of 12/12/2023) Resolved Problems Problem Noted Date Diagnosed Date [...] as of this encounter (statuses as of 12/12/2023) Immunizations Name Administration Dates Next Due COVID-19 mRNA, LNP-s, No Pre serve, 2-Dose Series ([employer] [place]) 12/18/2020,06/20/2020,05/30/2020 COVID-19, LNP-s, No Preserve , Marshal-sucrose, Ages 12+ (Pfizer) 06/25/2021 Covid-19, Mrna, Lnp-s, Pf, B ivalent, 30 Mcg, IM, 12 yrs and above ([employer] [place]) 12/31/2021 H1N1 2009 Influenza, IM 02/24/2009 Hepatitis [...] 12/27/2023 3:30 PM EDT Office Visit Gastroenterology, [facility] [address] [place] [address] [address] Franchesca Almaraz CRNP [address] [place] [address] 01/04/2024 1:00 PM EDT Anticoagulation Pharmacy, [facility] [place] [address] [facility] [place] [address] Pharmacist2, [facility] [address] [place] [address] 01/10/2024 1:00 PM EST Office Visit Family Practice [facility] [address] [place] [address] [address] Landon Quiles, [address] [address] 01/11/2024 1:00 PM EST Immunization/Injection Hematology/Oncology Treatment, [place] [address] [place] [phone] Sarai, Chair 2 Hem Onc [facility] [address] [place] [address] 02/22/2024 1:30 PM EST Office Visit Pharmacy, [facility] [address] [place] [address] Pharmacist2, [facility] [address] [place], [place] [address] 02/22/2024 2:00 PM EST Pharmacy Pharmacy, [facility] [address] [place], [place] [address] Pharmacist2, [facility] [address] [place], [place] [address] 02/22/2024 2:30 PM EST Anticoagulation Pharmacy, [facility] [address] [place], [place] [address] Pharmacist2, [facility] [address] [place], [place] [address] 05/11/2024 1:40 PM EST Office Visit Family Practice [facility] [address] [place] [address] Jackeline Diaz CRNP [facility] [place] [address] 05/29/2024 11:15 AM EDT Office Visit Hematology/Oncology [facility] [address] [facility] [place], [place] [address] Abdirizak Shoemaker MD [address] [facility] [place], [place] [address] 09/17/2024 11:40 AM EDT Office Visit Sleep Disorders Ctr [facility] [address] [place] [address] Bernadette Zuniga DO [address] [place] [address] 11/20/2024 1:45 PM EDT Office Visit Urology, [facility] [address] [place] [address] Faustino Cárdenas MD [address] [place] [address] [...] this encounter Medical Devices Implanted Type Area Credit Checker Device Identifier Shelf Expiration Date Model / Serial / Lot Graft Flex Hd 6 X 16cm [id number] - [id number] [place] [facility] [place] - [place] Left: Breast MUSCULOSKELETAL TRANSPLANT FND 04/28/2013 [id number] / [id number] / Graft Flex Hd 6 X 16cm [id number] - [id number] Implanted:Qty : 1 on 09/22/2010 [place] [facility] [place] - Human Right: Chest MUSCULOSKELETAL TRANSPLANT FND 04/28/2013 [id number] / [id number] / Mediport Pwr Isp 8fr [id number] - [id number] Implanted:Qty : 1 [place]22[place] [facility] [place]: Chest CR BARD : ACCESS SYSTEMS 07/13/2012 [id number] / / [id number] Breast Implant 204-4534 Saline - [id number] Implanted:Qty : 1 [place]22[place] [facility] [place]: Breast MENTOR EVA 12/13/2013 354-2515 / [id number] Breast Implant 354-5621 Saline - [id number] Implanted:Qty : 1 [place] 09[place]22[place] [facility] [place]: Breast MENTOR EVA 07/13/2014 354-2515 / [id number] / [id number] Lens Intraoc 16.5 - [id number] - [id number] Implanted:Qty : 1 on 02/20/2016 by Lincoln Garces MD at OR [facility] Left: Eye BAUSCH & LOMB 08/04/2020 [id number] / [id number] / [id number] Lens Intraoc 15.5 - [id number] - [id number] Implanted:Qty : 1 on 03/09/2016 by Lincoln Garces MD at OR [facility] Right: Eye BAUSCH & LOMB 12/04/2017 [id number] / [id number] / documented as of this encounter Advance [...] and were consensually agreed upon. Care Teams Forest Fire Specialist Supervisor Relationship Specialty Start Date End Date Landon Quiles DO [address] [place] [address] [address] PCP - General Family Medicine 03/19/19 documented as of this encounter
--- OUTSIDE RECORDS SUMMARY | 2023-12-25 20:05 | External Medical Summary | Summary of Care ---
Author Name Unknown Organization [facility] Address [address] [place] [address] Phone [phone] Care Team Providers Care Instructional Technology Coordinator Name Role Phone Landon Quiles DO Primary Care Provider Reason for Visit * Reason Onset Date Comments Home Health 11/28/2023 Encounter Details Date Type Department Care Team (Late st Contact Info) Description 11/28/2023 Telephone Family Practice [facility] [address] [place] [address] Landon Quiles DO [address] [place] [address] Home Health Allergies Active Allergy Reactions Criticality Noted Date [...] as of this encounter (statuses as of 11/28/2023) Medications Medication Sig Dispensed Refills Start Date [...] Gel Apply a thin ribbon to toothbrush. [place] twice daily in place of normal toothpaste [...] 90 Tablet 3 3 Active Nystatin-Triamcino lone 370022-3.1 UNIT/GM-% External Cream (Mycolog)Indicatio ns:Tinea cruris APPLY [...] 3 01/01/20 24 Active GNP UltiCare Pen [place] 32G X 4 MM (Insulin Pen Needle) [...] than 8.0% ([facility]) Use as directed. 6 Each 3 4 Active Amoxicillin 500 MG Oral Capsule (Amoxil) take 1 capsule (500 mg) by oral route 2 times per day. Start this 2 days before tooth extraction. 14 Capsule 4 Active Additional Information Patient not taking.Reported on 08/22/2023 BD Morning News Producer Tray 27G X 1/2" 1 ML Kit (Tuberculin-Allerg y Syringes)Indicatio ns:Inflammatory polyarthritis ([facility]) USE DIRECTED TO INJECT METHOTREXATE 0.6 ML [...] as of this encounter (statuses as of 11/28/2023) Active Problems Problem Noted Date Diagnosed Date [...] as of this encounter (statuses as of 11/28/2023) Resolved Problems Problem Noted Date Diagnosed Date [...] as of this encounter (statuses as of 11/28/2023) Immunizations Name Administration Dates Next Due COVID-19 mRNA, LNP-s, No Pre serve, 2-Dose Series ([employer]) 12/18/2020,06/20/2020,05/30/2020 COVID-19, LNP-s, No Preserve , Marshal-sucrose, Ages 12+ (Pfizer) 06/25/2021 Covid-19, Mrna, Lnp-s, Pf, B ivalent, 30 Mcg, IM, 12 yrs and above (Healthy Humans) 12/31/2021 H1N1 2009 Influenza, IM 02/24/2009 Hepatitis [...] encounter Miscellaneous Notes * Telephone Encounter - Virginia Weathers LPN - 11/28/2023 3:34 PM EDT PT/OT/ST Eval Start of Care/Continuation DEN Burnett, Calling from: [facility] PT Plan of care: 1 times per week for 3 weeks Focusing on: strengthening, transfers and general endurance Concerns: no None Symptoms: none Vitals: T 97.8 P 90 RR 19 BP 124/68 SP O2 96% RA Blood sugar 146 fasting Narrative: Is calling to relay continued POC. Call back DEN Burnett with any advice or orders at [phone] Please fax new orders to [facility] Home Health [phone] Advised that additional visit orders will be signed by Landon Quiles DO and to fax to the office for signature documented in this encounter Plan of Treatment Upcoming Encounters Date Type Department Care Team (Late st Contact Info) Description 11/30/2023 1:00 PM EDT Office Visit Hematology/Oncology [place] [address] [facility] [place] [address] Daniella Mccord CRNP [address] [place] [address] [place] [address] 11/30/2023 1:30 PM EDT Nurse Only Hematology/Oncology Treatment, [place] [address] [facility] [place] [phone] Park, Chair 3 Hem Onc [address] [facility] [place] [address] 12/07/2023 1:00 PM EDT Office Visit Pharmacy, [facility] [address] [facility] [place], [place] [address] Pharmacist2, [facility] [address] [facility] [place], [place] [address] 12/07/2023 1:40 PM EDT Anticoagulation Pharmacy, [facility] [address] [facility] [place], [place] [address] Pharmacist2, [facility] [address] [facility] [place] [address] 12/27/2023 3:30 PM EDT Office Visit Gastroenterology, [facility] [address] [place] [address] Franchesca Almaraz CRNP [address] [place] [address] 01/10/2024 1:00 PM EST Office Visit Family Practice [facility] [address] [place] [address] Landon Quiles, [address] [place] [address] 05/04/2024 2:30 PM EST Office Visit Cardiology, [facility] [place] [address] Catalina Schafer CRNP [address] [place] [address] [place] [address] 05/11/2024 1:40 PM EST Office Visit Family Practice [facility] [address] [place] [address] Jackeline Diaz CRNP [address] [place] [address] 09/17/2024 11:40 AM EDT Office Visit Sleep Disorders Ctr [facility] [address] [place] [phone] Bernadette Zuniga DO [address] [place] [address] 11/20/2024 1:45 PM EDT Office Visit Urology, [facility] 132 [facility] [place] [address] Faustino Cárdenas MD [address] [place] [address] Scheduled Procedures Name Priority Associated Diagnoses Date/Ti [...] this encounter Medical Devices Implanted Type Area Lithograph Press Operator Tinware Device Identifier Shelf Expiration Date Model / Serial / Lot Graft Flex Hd 6 X 16cm [id number] - [id number] Implanted:Qty : 1 on 09/22/[place] [facility] [place] Tissue - Human Left: Breast MUSCULOSKELETAL TRANSPLANT FND 04/28/2013 [id number] / [id number] / Graft Flex Hd 6 X 16cm [id number] - [id number] Implanted:Qty : 1 on 09/22/2010 [place] [facility] [place] Tissue - Human Right: Chest MUSCULOSKELETAL TRANSPLANT FND 04/28/2013 [id number] / [id number] / Mediport Pwr Isp 8fr [id number] - [id number] Implanted:Qty : 1 on 09/22/2010 [place] [facility] [place] Right: Chest CR BARD : ACCESS SYSTEMS 07/13/2012 [id number] / / [id number] Breast Implant 354-2515 Saline - [id number] Implanted:Qty : 1 on 09/22/2010 [place] [facility] [place] Right: Breast MENTOR EVA 12/13/2013 354-2515 / [id number] Breast Implant 354-2515 Saline - [id number] Implanted:Qty : 1 on 09/22/2010 [place] [facility] [place] Left: Breast MENTOR EVA 07/13/2014 354-2515 / [id number] Lens Intraoc 16.5 - [id number] - [id number] Implanted:Qty : 1 on 02/20/2016 by Lincoln Garces MD at OR [facility] Left: Eye BAUSCH & LOMB 08/04/2020 [id number] / [id number] / [id number] Lens Intraoc 15.5 - [id number] - [id number] Implanted:Qty : 1 on 03/09/2016 by Lincoln Garces MD at OR [facility] Right: Eye BAUSCH & LOMB 12/04/2017 [id number] / [id number] / documented as of this encounter Advance [...] and were consensually agreed upon. Care Teams Instructional Technology Coordinator Relationship Specialty Start Date End Date Landon Quiles DO [address] [place] [address] PCP - General Family Medicine 03/19/19 documented as of this encounter
--- OUTSIDE RECORDS SUMMARY | 2023-12-25 20:05 | External Medical Summary | Summary of Care ---
Author Name Unknown Organization [facility] Address [address] [place] [address] Phone [phone] Care Team Providers Care Strategic Debriefing Specialist Name Role Phone Landon Quiles Primary Care Provider Encounter Details Date Type Department Care Team (Late st Contact Info) Description 08/10/2023 Orders Only Hematology/Oncology [facility] [address] [facility] [phone] Abdirizak Shoemaker MD [address] [facility] [address] Allergies Active Allergy Reactions Criticality Noted Date [...] Gel Apply a thin ribbon to toothbrush. [place] twice daily in place of normal toothpaste [...] 90 Tablet 3 3 Active Nystatin-Triamcino lone 687354-4.1 UNIT/GM-% External Cream (Mycolog)Indicatio ns:Tinea cruris APPLY [...] 3 01/01/20 24 Active GNP UltiCare Pen [place] 32G X 4 MM (Insulin Pen Needle) [...] A1c goal of less than 8.0% ([facility]) Use as directed. 6 Each 3 4 Active Amoxicillin 500 MG Oral Capsule (Amoxil) take 1 capsule (500 mg) by oral route 2 times per day. Start this 2 days before tooth extraction. 14 Capsule 4 Active Additional Information Patient not taking.Reported on 08/22/2023 BD Trackless Trolley Driver Tray 27G X 1/2" 1 ML Kit (Tuberculin-Allerg y Syringes)Indicatio ns:Inflammatory polyarthritis (HCC) USE DIRECTED TO INJECT METHOTREXATE 0.6 ML ONCE A WEEK 25 Kit 5 4 Active Leucovorin Calcium 5 MG Oral Tablet (Wellcovorin) Take 1 Tablet by mouth once a week. 12 Tablet 9 4 Active documented as of this encounter [...] mRNA, LNP-s, No Pre serve, 2-Dose Series ([employer]) 12/18/2020,06/20/2020,05/30/2020 COVID-19, LNP-s, No Preserve , Marshal-sucrose, Ages 12+ (Pfizer) 06/25/2021 Covid-19, Mrna, Lnp-s, Pf, B ivalent, 30 Mcg, IM, 12 yrs and above ([employer]) 12/31/2021 H1N1 2009 Influenza, IM 02/24/2009 Hepatitis [...] 11/30/2023 1:00 PM EDT Office Visit Hematology/Oncology [facility] [address] [place] [phone] Daniella Mccord, ANDREW [address] [place] [address] 11/30/2023 1:30 PM EDT Nurse Only Hematology/Oncology Treatment, [place] [address] [facility] [place] [phone] Sarai, Chair 3 Hem Onc [place] [address] [address] [place] [address] 12/07/2023 1:00 PM EDT Office Visit Pharmacy, [facility] [address] [place] [address] Pharmacist2, [facility] [address] [place] [address] 12/07/2023 1:40 PM EDT Anticoagulation Pharmacy, [facility] [address] [address] Pharmacist2, [facility] [address] [place], [place] [address] 12/27/2023 3:30 PM EDT Office Visit Gastroenterology, [facility] [address] [facility] [place] [address] Franchesca Almaraz CRNP [address] [facility] [place] [address] 01/10/2024 1:00 PM EST Office Visit [facility] [place] [address] [facility] [place] [address] Landon Quiels DO [address] [facility] [place] [address] 05/04/2024 2:30 PM EST Office Visit Cardiology, [facility] [address] [facility] [place] [address] Catalina Schafer CRNP [address] [place] [address] 05/11/2024 1:40 PM EST Office Visit [facility] [place] [address] [facility] [place] [address] Jackeline Diaz CRNP [address] [facility] [place] [address] 09/17/2024 11:40 AM EDT Office Visit [facility] [address] [facility] [place] [phone] Bernadette Zuniga, [address] [place] [address] 11/20/2024 1:45 PM EDT Office Visit Urology, [facility] [address] [address] Faustino Cárdenas MD [address] [place] [address] [...] this encounter Medical Devices Implanted Type Area Turning And Beading Machine Operator Device Identifier Shelf Expiration Date Model / Serial / Lot Graft Flex Hd 6 X 16cm [id number] - [id number] Implanted:Qty : 1 on 09/22/2010 at [place] [facility] [place] Tissue - Human Left: Breast [employer] FND 04/28/2013 [id number] / [id number] / Graft Flex Hd 6 X 16cm [id number] - [id number] Implanted:Qty : 1 on 09/22/2010 at OR [facility] [place] Tissue - Human Right: Chest [employer]LET[employer]ANSPL[employer] FND 04/28/2013 [id number] / [id number] / Mediport Pwr Isp 8fr [id number] - [id number] Implanted:Qty : 1 on 09/22/2010 at [place] [facility] [place] Right: Chest CR BARD : [employer] 07/13/2012 [id number] / / [id number] Breast Implant [id number] Saline - [id number] Implanted:Qty : 1 on 09/22/2010 at [place] [facility] [place] Right: Breast MENTOR EVA 12/13/2013 [id number] / [id number] Breast Implant [id number] Saline - [id number] Implanted:Qty : 1 on 09/22/2010 at [place] [facility] [place] Left: Breast MENT[employer] EVA 07/13/2014 [id number] / [id number] / [id number] Lens Intraoc 16.5 - [id number] - [id number] Implanted:Qty : 1 on 02/20/2016 by Lincoln Garces MD at OR [facility] Left: Eye [employer]OMB 08/04/2020 [id number] / [id number] / [id number] Lens Intraoc 15.5 - [id number] - [id number] Implanted:Qty : 1 on 03/09/2016 by Lincoln Garces MD at OR [facility] Right: Eye [employer]CH [employer] LOMB 12/04/2017 [id number] / [id number] / documented as of this encounter Advance [...] and were consensually agreed upon. Care Teams Strategic Debriefing Specialist Relationship Specialty Start Date End Date Landon Quiles DO [address] [place] [address] [address] PCP - General Family Medicine 03/19/19 documented as of this encounter
--- OUTSIDE RECORDS SUMMARY | 2023-12-25 20:05 | External Medical Summary ---
Author Name Unknown Address Unknown Organization K01:LABORATORY [facility] - [address] [facility] [place] [address] Laboratory Report Ordering Provider Test Date Status ESTHER DENIS 11/30/2023 13:26:14 Final Observation Date Value Abnormality Reference (Units ) Status Cancer Ag 125 11/30/2023 13:26:14 10.4 <=38.1 (U/mL) Final Performing Location [facility] - [address] [place] [address]
--- OUTSIDE RECORDS SUMMARY | 2023-12-25 20:05 | External Medical Summary | Summary of Care ---
Author Name Unknown Organization [facility] Address [address] [place] [address] Phone [phone] Care Team Providers Care Retail Marketing Specialist Name Role Phone Sylvester Quiles Primary Care Provider Reason for Visit * Reason Comments Follow Up Encounter Details Date Type Department Care Team (Late st Contact Info) Description 11/16/2023 11:45 AM EDT Office Visit Urology, [facility] [address] [facility] [place] [address] Faustino Cárdenas MD [address] [place] [address] Kidney stones*; OAB (overactive bladder); Renal cysts, acquired, bilateral; Uric acid kidney stone Allergies Active Allergy Reactions Criticality Noted Date [...] as of this encounter (statuses as of 11/16/2023) Medications Medication Sig Dispensed Refills Start Date [...] Gel Apply a thin ribbon to toothbrush. [place] twice daily in place of normal toothpaste [...] 90 Tablet 3 3 Active Nystatin-Triamcino lone 955662-0.1 UNIT/GM-% External Cream (Mycolog)Indicatio ns:Tinea cruris APPLY [...] 3 01/01/20 24 Active GNP UltiCare Pen Cartwright 32G X 4 MM (Insulin Pen Needle) [...] hemoglobin A1c goal of less than 8.0% ([facility]) Use as directed. 6 Each 3 4 Active Amoxicillin 500 MG Oral Capsule (Amoxil) take 1 capsule (500 mg) by oral route 2 times per day. Start this 2 days before tooth extraction. 14 Capsule 4 Active Additional Information Patient not taking.Reported on 08/22/2023 BD Dock Coordinator Tray 27G X 1/2" 1 ML Kit [...] Extended Release (Isoptin SR)Indications:PAT (paroxysmal atrial tachycardia) ([facility]) TAKE 1 TABLET BY MOUTH 3 TIMES [...] 360 Tablet 3 4 10/29/19 25 Active documented as of this encounter (statuses as of 11/16/2023) Active Problems Problem Noted Date Diagnosed Date [...] as of this encounter (statuses as of 11/16/2023) Resolved Problems Problem Noted Date Diagnosed Date Resolved Date Malignant neoplasm of overla pping sites of right female breast 06/08/2022 07/06/2022 Primary osteoarthritis of both knees 07/02/2021 07/06/2022 Chronic obstructive pulmonary disease 05/14/2021 07/16/2021 Overview: Per COPD GOLD Classification Dysplasia of cervix, low grade ([facility] 1) 05/05/2021 07/06/2022 Overview: repeat pap 1 yr Wheelchair dependence 04/23/2019 06/23/ 2021 Malignant neoplasm of overla pping sites of [...] as of this encounter (statuses as of 11/16/2023) Immunizations Name Administration Dates Next Due COVID-19 mRNA, LNP-s, No Pre serve, 2-Dose Series (e2e Materials) 12/18/2020,06/20/2020,05/30/2020 COVID-19, LNP-s, No Preserve , Marshal-sucrose, [...] 18 years and over) Not on file 10/24/202 3 Are you (or your family) [place] [...] as of this encounter Progress Notes * Faustino Cárdenas MD - 11/16/2023 11:45 AM EDT [id number] PCP: SYLVESTER QUILES [address] [facility] [place] [address] [phone] Barbie Davidson is a 67 year old female, who presents for 1 year follow-up of her history of overactive bladder and stone disease. CT images from June 2023 are reviewed personally with patient. This demonstrates renal cysts, no stones or obstruction. Patient's recent back surgery is appreciated.Patient feels her voiding remains stable on oral medication. Patient is here today with director zone. Urolithiasis: Patient is being seen for stone disease today. Problem has been present for years.. They have passed all their previous stones without the need for surgery. Severity is moderate Problem is about the same. Patient has had the following imaging done: CT scan and ultrasound. In the past they have had ureteral stent placement and ureteroscopy to manage their stones in Feb [address] [facility]. Stone composition is uric acid. Previous evaluation was done by urologist. OAB: Using Gemtesa with good effect. CT scan Jun 2023: IMPRESSION 1. No focal CT abnormality on the CT. CT colonography may be if clinically warranted. 2. Hepatosplenomegaly. 3. Additional findings described above. Creatinine Results: Lab Results Component Value Date/Time CREATININE (GRL) 1.0 06/06/1997 04:00 PM CREATININE - [facility] 0.9 10/28/2023 01:16 PM CREATININE - [facility] 1.0 07/01/2023 01:05 PM CREATININE - [facility] 1.0 06/29/2023 12:43 PM CREATININE - [facility] 0.9 02/19/2020 02:04 PM CREATININE - [facility] 0.8 01/07/2020 02:05 PM CREATININE - [facility] 0.9 11/06/2019 12:36 PM CREATININE NATALIE 132 12/09/2016 03:13 PM CREATININE, 24 HOUR URINE 910 11/23/2021 08:48 AM CREATININE, 24 HOUR URINE 1137 05/02/2021 10:44 AM CREATININE, 24 HOUR URINE 983 09/26/2020 11:06 AM CREATININE, RANDOM URINE - [facility] 108 06/29/2023 12:43 PM CREATININE, RANDOM URINE - [facility] 137 07/12/2022 12:52 PM CREATININE, RANDOM URINE - [facility] 36 06/04/2021 11:54 AM CREATININE, RANDOM URINE - [facility] 203 01/21/2017 04:42 PM CREATININE, RANDOM URINE - [facility] 208 01/21/2017 04:40 PM CREATININE, RANDOM URINE - [facility] 156 05/03/2016 04:17 PM CREATININE, RANDOM URINE - [facility] 158 05/03/2016 04:17 PM CREATININE-OUTSIDE LAB 1.03 02/13/2019 12:00 AM CREATININE-OUTSIDE LAB 0.99 06/29/2018 12:00 AM CREATININE-OUTSIDE LAB 1.07 08/20/2017 12:00 AM Current Outpatient Medications Medication Sig Dispense Refill TYLENOL ARTHRITIS PAIN 650 MG PO TBCR 2 at bedtime NEBULIZER COMPRESSOR MISC Use as directed 1 Each 1 aspirin 81 MG chewable [...] Gel Apply a thin ribbon to toothbrush. [place] twice daily in place of normal toothpaste 100 mL 4 Furosemide 20 MG Oral Tablet (Lasix) TAKE ONE TABLET BY MOUTH DAILY NEEDED FOR LEG SWELLING, FLUID ACCUMULATION OR WEIGHT GAIN. 30 Tablet 11 rOPINIRole HCl 0.5 MG Oral Tablet (Requip) TAKE 1 TABLET BY MOUTH AT BEDTIME NEEDED RESTLESS LEGS 90 Tablet 3 Nystatin-Triamcinolone 732172-9.1 UNIT/GM-% External Cream (Mycolog) APPLY TOPICALLY TO [...] eyes every 12 hours 60 Each 6 Atorvastatin Calcium 20 MG Oral Tablet (Lipitor) TAKE 1 TABLET BY MOUTH IN THE MORNING 90 Tablet 9 GNP UltiCare Pen Cartwright 32G X 4 MM (Insulin Pen Needle) [...] Reported on 08/22/2023) 14 Capsule 0 BD Dock Coordinator Tray 27G X 1/2" 1 ML Kit [...] 2 TABLETS AT BEDTIME 450 Tablet 3 oxyCODONE HCl 5 MG Oral Tablet (Oxy IR) Take 1 Tablet by mouth every 8 hours as needed for severe Pain 60 Tablet 0 Lansoprazole 15 MG Oral Capsule Delayed Release [...] MOUTH DAILY WITH DINNER. 360 Tablet 3 No current facility-administered medications for this visit. Review of patient's allergies indicates: Allergen Reactions Clindamycin Esophageal swelling and a rash Gabapentin Edema Other Pt c/o edema in feet and hands Tricyclic Antidepressants Swelling of hands and arms Allopurinol Edema Other, Fever and Hives Aloe Vera Benzocaine Codeine Itching rash Decadron [Dexamethasone] Tachycardia Erythromycin stomach cramps Fluticasone Hyoscyamine Edema Other Mineral Oil Nickel Rash Potassium Rash with one formulation PO tabs Tape [Adhesive Tape] Vagisil Januvia [Sitagliptin Phosphate] Edema Other Ankle and hand swelling Social History: Social History Tobacco Use Smoking status: Former Current packs/day: 0.00 Average packs/day: 2.0 packs/day for 14.0 years (28.0 ttl pk-yrs) Types: Cigarettes Start date: 03/07/1970 Quit date: 03/07/1984 Years since quittin.7 Smokeless tobacco: Never Substance Use Topics Alcohol use: No Vaping/E-Cigarette Use Vaping/E-Cigarette Use Never User Vaping/E-Cigarette Substances Vaping/E-Cigarette Devices Family History Problem Relation Name Age of Onset Cancer Mother skin- type unknown/breast Heart Disorder Father arrhythmia Diabetes Father type II Diabetes Brother type II No Known Problems Brother Allergies Son pollen allergies Asthma Son Cancer Aunt (Unspecified) maternal , premenopausal breast cancer Cancer Aunt (Unspecified) cervical Cancer Aunt (Unspecified) uterine or cervical Cancer Aunt (Unspecified) ovarian Cancer Aunt (Unspecified) ovarian Cancer Aunt (Unspecified) breast, postmenopausal Cancer Aunt (Unspecified) breast, postmenopausal Cancer Uncle (Unspecified) prostate Cancer Uncle (Unspecified) bone Cancer Grandmother (Maternal) breast CA, leukemia Gastro-intestinal disorder Grandfather (Maternal) PUD Cancer Grandfather (Maternal) testicular/skin - type unknown Heart Disorder Grandfather (Paternal) CAD No Past Hx None no colon cancer Past Surgical History: Procedure Laterality Date BREAST RECONSTRUCTION W/GENERAL CLAIMS AGENT 09/22/2010 BREAST RECONSTRUCTION WITH TISSUE GENERAL CLAIMS AGENT performed [place] BRISA HALL [place] [facility] BX BREAST PERCUT W/IMAGE 12/10/2002 BCC CARPAL TUNNEL SURGERY 98/ double median nerve on L COLONOSCOPY, DIAGNOSTIC (RECTUM) 10/25/2017 diverticulosis, fair prep, repeat 5 yrs/[facility] COLONOSCOPY, DIAGNOSTIC (RECTUM) N/A 05/20/2023 sigmoid diverticulosis/hemorrhoids/Colonoscopy/[place] COLORECTAL CANCER SCREEN; NOT AT RISK 03/28/2007 repeat in 5 years due to prep CYSTOSCOPY 09/12/2017 DENTAL SURGERY PROCEDURE NEC wisdom teeth extraction DRAIN SKIN ABSCESS, COMPLIC/MULT 12/29/2010 INCISION AND DRAINAGE SKIN ABSCESS MULTIPLE performed by BRISA HALL at [place] [facility] EGD, FLEXIBLE, DIAGNOSTIC 01/16/2019 gastritis / [facility] EXPLORATION OF ABDOMEN 09/22/2010 EXPLORATORY LAPAROTOMY performed by JUAN CASTELLANOS at [place] [facility] IDENTIFY SENTINEL NODE, RADIOACTIVE TRACER 09/22/2010 INJECTION PROCEDURE FOR IDENTIFICATION SENTINEL NODE performed by SHRAVAN JACINTO at [place] [facility] INFORMATION 09/2008 left foot surgery INFORMATION 09/2008 Ruptured peroneus longus INSER TUNN ACC DEV;5 YRS/OLDER 09/22/2010 INSERT TUNNELED CENTRAL VENOUS ACCESS W* performed by SHRAVAN JACINTO at [place] [facility] LAPAROSCOPY;RMV ADNEXAL STRUCT 09/22/2010 LAPAROSCOPIC OOPHORECTOMY AND OR SALPINGECTOMY performed by JUAN CASTELLANOS at [place] [facility] MASTECTOMY, MODIFIED RADICAL 09/22/2010 MASTECTOMY MODIFIED RADICAL INCLUDING AXILLARY LYMPH NODES OR WTIHOUT PECTORALIS MINOR MUSCLE BUT EXCLUDING PECTORALIS MAJOR MUSCLE performed by SHRAVAN JACINTO at [place] [facility] MISCELLANEOUS ORDER ([facility] ONLY) 09/22/2010 tubes and ovaries MUSCLE/FASCIA DEBRIDEMENT, FIRST 20 CM2 12/29/2010 DEBRIDEMENT SKIN SUBCUTANEOUS TISSUE AND MUSCLE performed by BRISA HALL at [facility] REMOVAL OF OVARY(S) 09/22/2010 OOPHORECTOMY performed by JUAN CASTELLANOS at [place] [facility] REMOVE CATARACT, INSERT LENS PROSTH Left 02/20/2016 Left EXTRACAPSULAR CATARACT REMOVAL WITH INTRAOCULAR LENS performed by Lincoln Garces MD at OR [facility] REMOVE CATARACT, INSERT LENS PROSTH Right 03/09/2016 Right EXTRACAPSULAR CATARACT REMOVAL WITH INTRAOCULAR LENS performed by Lincoln Garces MD at OR [facility] REMOVE GALLBLADDER 03/14/1996 laparoscopic REMOVE TISSUE GENERAL CLAIMS AGENT(S) 12/29/2010 REMOVAL GENERAL CLAIMS AGENT WITHOUT INSERTION PROSTHESIS performed by BRISA HALL at [facility] SACROILIAC JOINT INJECT W/GUIDANCE 04/28/2020 INJECTION SACROILIAC JOINT performed by Pedro Kim DO at OR [facility] SACROILIAC JOINT INJECT W/GUIDANCE 10/20/2022 INJECTION SACROILIAC JOINT performed by Pedro Kim DO at OR [facility] TOTAL ABD HYSTERECTOMY W/WO REMOVAL OF TUBE(S) 09/22/2010 tubes and ovaries removed ONLY UMBIL HERNIA REPAIR (REDUCIBLE) AGE 5+YR 03/17/2012 03/17/2012 umbilical hernia repair - [facility] Dr. Jeremie Washington Past Medical History: Diagnosis Date Abnormal mammogram [...] Inflammatory polyarthritis (HCC) 04/23/2019 INFORMATION 11/29/2013 tachycardia- [facility] Insomnia, unspecified Insomnia, unspecified Malignant neoplasm of female breast ([facility]) [id number] BRCA 1 pos Malignant neoplasm of overlapping sites of both breasts in female, estrogen receptor negative ([facility])03/29/2019 Nephrolithiasis 05/23/2017 Left sided 5mm noted on CT done by Matthew 05/05/17 LORE on CPAP 05/23/2006 Other chronic sinusitis Other lymphedema Paroxysmal SVT (supraventricular tachycardia) ([facility]) Phlebitis and thrombophlebitis of other deep vessels of lower extremities R leg post traumatic Pulmonary embolism ([facility]) RLS (restless legs syndrome) 11/10/2012 Has both aching and restlessness Sleep apnea Sleep apnea Wheelchair dependence 04/23/2019 Patient Active Problem List Diagnosis Gastroesophageal reflux disease with esophagitis Fibromyalgia LORE on CPAP BRCA1 positive RLS (restless legs syndrome) PAT (paroxysmal atrial tachycardia) (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) HTN, goal below 130/80 Gastroparesis Inflammatory polyarthritis ([facility]) Moderate persistent asthma without complication PTSD (post-traumatic stress disorder) Uveitis of right eye Generalized osteoarthritis Chronic diastolic congestive heart failure ([facility]) Type 2 diabetes mellitus with hemoglobin A1c goal of less than 8.0% ([facility]) H/O bilateral mastectomy Body mass index (BMI) of 45.0 to 49.9 in adult ([facility]) Encounter for long-term (current) use of medications Pleural effusion Malignant neoplasm of overlapping sites of both breasts in female, estrogen receptor positive ([facility]) Hiatal hernia Constitutional: (-) fever and (-) chills ENT: (-) stridor Pulmonary: (-) cough Female : (+) see HPI Musculoskeletal: (+) back pain/problems Neurology: (+) neuropathy Psychiatry: (+) anxiousness Physical Exam Nursing note reviewed. Constitutional: General: She is not in acute distress. Appearance: She is obese. She is not toxic-appearing. Comments: In wheelchair HENT: Head: Normocephalic. Right Ear: External ear normal. Left Ear: External ear normal. Nose: Nose normal. Mouth/Throat: Mouth: Mucous membranes are moist. Eyes: Extraocular Movements: Extraocular movements intact. Neck: Comments: Using neck brace Cardiovascular: Pulses: Normal pulses. Pulmonary: Effort: Pulmonary effort is normal. No respiratory distress. Abdominal: General: Abdomen is protuberant. Musculoskeletal: Cervical back: Rigidity present. Skin: Coloration: Skin is not pale. Neurological: Mental Status: She is oriented to person, place, and time. Motor: Weakness present. Gait: Gait abnormal. Psychiatric: Behavior: Behavior normal. Thought Content: Thought content normal. Impression/Plan: 67-year-old female with a history of overactive bladder and stone disease. We are pleased with the patient's stability. Will continue with yearly checks. KUB at that time. Has refills of her antispasmodics. Patient is healing well from her spinal surgery. Contact us sooner with any significant urinary deterioration. Above content is personally reviewed. Patient vocalizes good understanding of the treatment plan. Faustino Cárdenas MD 9:39 AM 11/16/2023 documented in this encounter Nursing Notes * Jackeline Carlson LPN - 11/16/2023 11:49 AM EDT 1 yr ret. Patient presents alone.Taking gemtesa, potassium citrate. No urinary complaints. documented in this encounter Plan of Treatment Upcoming Encounters Date Type Department Care Team (Late st Contact Info) Description 11/30/2023 1:00 PM EDT Office Visit Hematology/Oncology [address] [place] [phone] Daniella Mccord CRNP [address] [place], [place] [address] [id number] 11/30/2023 1:30 PM EDT Nurse Only Hematology/Oncology Treatment, [place] [address] [facility] [place] [phone] Sarai, Chair 3 Hem Onc [address] [place] [address] 12/07/2023 1:00 PM EDT Office Visit Pharmacy, [address] [place] [address] Pharmacist2, [facility] [address] [facility] [place] [address] 12/07/2023 1:40 PM EDT Anticoagulation Pharmacy, [facility] [address] [place] [address] Pharmacist2, [facility] [address] [facility] [place] [address] 12/27/2023 3:30 PM EDT Office Visit Gastroenterology, [facility] [address] [place] [address] Franchesca Almaraz CRNP [address] [facility] [place] [address] 01/10/2024 1:00 PM EST Office Visit Family Practice [facility] [address] [place] [address] Sylvester Quiles DO [address] [place] [address] 05/04/2024 2:30 PM EST Office Visit Cardiology, [facility] [address] [place] [address] Catalina Schafer CRNP [address] [place], [place] [address] [id number] 05/11/2024 1:40 PM EST Office Visit Family Practice [facility] [address] [place] [address] Jackeline Diaz CRNP [address] [place] [address] 09/17/2024 11:40 AM EDT Office Visit Sleep Disorders Ctr [facility] [address] [phone] Bernadette Zuniga, [address] [place] [address] 11/20/2024 1:45 PM EDT Office Visit Urology, [facility] [address] [place] [address] Faustino Cárdenas MD [address] [place] [address] Scheduled Orders Name Type Priority Associated Diagnoses Orde r Schedule XR ABDOMEN 1 VIEW Medical Imaging Routine Kidney stones Expected: 11/05/2024 (Approximate), Expires: 12/15/2024 Scheduled Procedures Name Priority Associated Diagnoses Date/Ti [...] 12/21/2022, Additional history exists B-12 05/31/2024 06/01/2023, 050 10/2022, 03/02/2021, Additional history exists Albumin/Creatinine Ratio 06/28/202406/28/2 024, 07/12/2022, 04/07/2021, Additional history exists GFR 10/27/2024 10/28/2023, 06/06, 06/29/2023, Additional history exists Pneumococcal Vaccine: 65+ Years (4 of 4 - PPSV23 or PCV20) 07/22/2025 07/22/2020, 11/16/2019, 11/10/2006 DTap/Tdap Vaccines (3 - Td or Tdap) 11/16/2027 11/15/2017, 09/12/2007 Colonoscopy 05/19/2028 05/20/2023, 10/06, 08/11/2012, Additional history exists Colorectal Cancer Screening 05/19/2028 Lipid Panel 06/28/2028 06/29/2023, 05/10/2022, 03/02/2021, Additional history exists DXA Scan 02/22/2029 [...] this encounter Medical Devices Implanted Type Area Resident Intern Device Identifier Shelf Expiration Date Model / Serial / Lot Graft Flex Hd 6 X 16cm [id number] - [id number] Implanted:Qty : 1 on 09/22/2010 [place] [facility] Tissue - Human Left: Breast MUSCULOSKELETAL TRANSPLANT FND 04/28/2013 [id number] / [id number] / Graft Flex Hd 6 X 16cm [id number] - [id number] Implanted:Qty : 1 on 09/22/2010 at [place] [facility] Tissue - Human Right: Chest MUSCULOSKELETAL TRANSPLANT FND 04/28/2013 [id number] / [id number] / Mediport Pwr Isp 8fr [id number] - [id number] Implanted:Qty : 1 on 09/22/2010 at [place] [facility] Right: Chest CR BARD : ACCESS SYSTEMS 07/13/2012 [id number] / / [id number] Breast Implant 354-2515 Saline - [id number] Implanted:Qty : 1 on 09/22/2010 at [place] [facility] Right: Breast MENTOR EVA 12/13/2013 [id number] / [id number] Breast Implant 354-2515 Saline - [id number] Implanted:Qty : 1 on 09/22/2010 at [place] [facility] Left: Breast MENTOR EVA 07/13/2014 [id number] / [id number] Lens Intraoc 16.5 - [id number] - [id number] Implanted:Qty : 1 on 02/20/2016 by Lincoln Garces MD at OR [facility] Left: Eye BAUSCH & LOMB 08/04/2020 [id number] / [id number] / [id number] Lens Intraoc 15.5 - [id number] - [id number] Implanted:Qty : 1 on 03/09/2016 by Lincoln Garces MD at OR [facility] Right: Eye BAUSCH & LOMB 12/04/2017 [id number] / [id number] / documented as of this encounter Visit Diagnoses Diagnosis Kidney stones- Primary Calculus of kidney OAB (overactive bladder) Hypertonicity of bladder Renal cysts, acquired, bilateral Acquired cyst of kidney Uric acid kidney stone Uric acid nephrolithiasis documented in this encounter Advance Directives * [...] and were consensually agreed upon. Care Teams Retail Marketing Specialist Relationship Specialty Start Date End Date Sylvester Quiles DO [address] [place] [address] PCP - General Family Medicine 03/19/19 documented as of this encounter
--- OUTSIDE RECORDS SUMMARY | 2023-12-25 20:05 | External Medical Summary ---
Author Name Unknown Address Unknown Organization : Laboratory Report Ordering Provider Test Date Status ESTHER DENIS 11/30/2023 13:26:14 Final Observation Date Value Abnormality Reference (Units ) Status Cancer Ag -11/30/2023 13:26:14 36 <38 (U/mL) Final This test was performed usin g the Siemens chemilumi-
nescent method. Values obtained from different assay
methods cannot be used interchangeably. CA27.29
levels, regardless of value, should not be interpreted
as absolute evidence of the presence or absence of
disease.

Test Performed at:
[facility]
[address] [facility]
[place] [address]
Yeison Aggarwal M.D., Ph.D.,Director of Laboratories Performing Location
--- OUTSIDE RECORDS SUMMARY | 2023-12-25 20:05 | External Medical Summary | Summary of Care ---
Author Name Unknown Organization [facility] Address [address] [place] [address] Phone [phone] Care Team Providers Care Manager Reading Name Role Phone Landon Quilesray Primary Care Provider Reason for Visit * Reason Comments Procedure Port Flush/lab draw Encounter Details Date Type Department Care Team (Late st Contact Info) Description 11/30/2023 1:30 PM EDT Nurse Only Hematology/Oncology Treatment, [address] [phone] [place], Chair 3 Hem Onc [address] [address] Procedure (Port Flush/lab draw) Allergies [...] as of this encounter (statuses as of 11/30/2023) Medications Medication Sig Dispensed Refills Start Date [...] Gel Apply a thin ribbon to toothbrush. [place] twice daily in place of normal toothpaste [...] 90 Tablet 3 3 Active Nystatin-Triamcino lone 049196-0.1 UNIT/GM-% External Cream (Mycolog)Indicatio ns:Tinea cruris APPLY [...] 3 01/01/20 24 Active GNP UltiCare Pen [place] 32G X 4 MM (Insulin Pen Needle) [...] A1c goal of less than 8.0% (HCC) Use as directed. 6 Each 3 4 Active Amoxicillin 500 MG Oral Capsule (Amoxil) take 1 capsule (500 mg) by oral route 2 times per day. Start this 2 days before tooth extraction. 14 Capsule 4 Active Additional Information Patient not taking.Reported on 08/22/2023 BD Moisture Machine Tender Tray 27G X 1/2" 1 ML Kit [...] as of this encounter (statuses as of 11/30/2023) Active Problems Problem Noted Date Diagnosed Date [...] as of this encounter (statuses as of 11/30/2023) Resolved Problems Problem Noted Date Diagnosed Date [...] as of this encounter (statuses as of 11/30/2023) Immunizations Name Administration Dates Next Due COVID-19 mRNA, LNP-s, No Pre serve, 2-Dose Series ([employer]) 12/18/2020,06/20/2020,05/30/2020 COVID-19, LNP-s, No Preserve , Marshal-sucrose, Ages 12+ (Pfizer) 06/25/2021 Covid-19, Mrna, Lnp-s, Pf, B ivalent, 30 Mcg, IM, 12 yrs and above ([employer]) 12/31/2021 H1N1 2009 Influenza, IM 02/24/2009 Hepatitis [...] Upcoming Encounters Date Type Department Care Team (Aileen brown Contact Info) Description 12/07/2023 1:00 PM EDT Office Visit Pharmacy, [facility] [address] [place] [address] Pharmacist2, [facility] [address] [facility] [place] [address] 12/07/2023 1:40 PM EDT Anticoagulation Pharmacy, [facility] [address] [place] [address] Pharmacist2, [facility] [address] [place] [address] 12/27/2023 3:30 PM EDT Office Visit Gastroenterology, [facility] [address] [facility] [place] [address] Fracnhesca Almaraz CR[facility] [address] 01/10/2024 1:00 PM EST Office Visit Family Practice [facility] [address] [facility] [place] [address] Landon Quiles DO 132 [facility] [place] [address] 01/11/2024 1:00 PM EST Immunization/Injection [facility]ematology[facility], [place] [facility] [phone] Sarai, Chair 2 Hem Onc [address] [place] [address] 05/04/2024 2:30 PM EST Office Visit Cardiology, [facility] [address] [facility] [place] [address] Catalina Schafer CRNP [address] [place] [address] 05/11/2024 1:40 PM EST Office Visit Family Practice [facility] [address] [facility] [place] [address] Jackeline Diaz CRNP 132 [facility] [place] [address] 05/29/2024 11:15 AM EDT Office Visit Hematology/Oncology [facility] [address] [facility] [place] [phone] Abdirizak Shoemaker MD [address] [place] [address] 09/17/2024 11:40 AM EDT Office Visit Sleep Disorders Ctr [facility] [address] [facility] [place] [phone] Bernadette Zuniga DO 132 [facility] [place] [address] 11/20/2024 1:45 PM EDT Office Visit Urology, [facility] [address] [facility] [place] [address] Faustino Cárdenas MD [address] [place] [address] Pending Results Name Type Priority Associated Diagnoses Date /Time CA 125 Lab Routine Malignant neoplasm of overlapping sites of both breasts in female, estrogen receptor positive (HCC) 11/30/2023 1:26 PM EDT CA 27.29 Lab Routine Malignant neoplasm of overlapping sites of both breasts in female, estrogen receptor positive (HCC) 11/30/2023 1:26 PM EDT CA 19-9 Lab Routine Malignant neoplasm of overlapping sites of both breasts in female, estrogen receptor positive (HCC) 11/30/2023 1:26 PM EDT Scheduled Procedures Name Priority Associated Diagnoses Date/Ti [...] Tdap) 11/16/2027 11/15/2017, 09/12/2007 Colonoscopy 05/19/2028 05/20/2023, 0803/2017, 08/11/2012, Additional history exists Colorectal Cancer Screening [...] this encounter Medical Devices Implanted Type Area Utility Tractor Operator Device Identifier Shelf Expiration Date Model / Serial / Lot Graft Flex Hd 6 X 16cm [id number] - [id number] [place]planted:Q[place] : 1 [place] [facility] [place] Human Left: Breast MUSCULOSKELETAL TRANSPLANT FND 04/28/2013 [id number] / [id number] / Graft Flex Hd 6 X 16cm [id number] - [id number] Implanted:Qty : 1 on 09/22/2010 [place] [facility] [place] - Human Right: Chest MUSCULOSKELETAL TRANSPLANT FND 04/28/2013 [id number] / [id number] / Mediport Pwr Isp 8fr [id number] - [id number] Implanted:Qty : 1 on 09/22/2010 [place] [facility] [place]: Chest CR BARD : ACCESS SYSTEMS 07/13/2012 [id number] / / [id number] Breast Implant [id number] Saline - [id number] Implanted:Qty : 1 on 09/22/2010 [place] [facility] [place]: Breast MENTOR EVA 12/13/2013 354-2515 / [id number] Breast Implant 354-2515 Saline - [id number] Implanted:Qty : 1 on 09/22/2010 at [facility] Left: Breast MENTOR EVA 07/13/2014 354-2515 / [id number] Lens Intraoc 16.5 - [id number] - [id number] Implanted:Qty : 1 on 02/20/2016 by Lincoln Garces MD at OR [facility] Left: Eye BAUSCH & LOMB 08/04/2020 [id number] / [id number] / [id number] Lens Intraoc 15.5 - [id number] - [id number] Implanted:Qty : 1 on 03/09/2016 by Lincoln Garces MD at OR [facility] Right: Eye BAUSCH & LOMB 12/04/2017 [id number] / [id number] / documented as of this encounter Visit Diagnoses Diagnosis History of breast cancer- Primary Personal history of malignant neoplasm of breast Malignant neoplasm of overlapping sites of both breasts in female, estrogen receptor positive (HCC) Encounter for central line care Fitting and adjustment of vascular catheter documented in this encounter Administered Medications Active Administered Medications - up to 3 most recent administrations Medication Order MAR Action Action Date Dose Rate Site hEParin 100 UNIT/ML Lock Flush inj 500 Units 500 Units (5 mL), IV Lock, PRN Other, IV Flush, Starting on Tue11/30/23 at 1354, Until Shira 12/01/23 at 1353, For 24 hours, Do not flush if lock, PICC, or central line not in place; IV infusing or unable to flush. Given 11/30/2023 1:54 PM EDT 500 Units sodium chloride 0.9 % flush central line 10 mL 10 mL, IV Push, PRN Other, IV Flush, Starting on Tue11/30/23 at 1354, Until Shira 12/01/23 at 1353, For 24 hours, Do not flush if [...] were consensually agreed upon. Care Teams Manager Reading Relationship Specialty Start Date End Date Landon Quiles DO [address] [place] [address] PCP - General Family Medicine 03/19/19 documented as of this encounter
--- OUTSIDE RECORDS SUMMARY | 2023-12-25 20:05 | External Medical Summary | Summary of Care ---
Author Name Unknown Organization [facility] Address [address] [place] [address] Phone [phone] Care Team Providers Care Editor Continuity And Script Name Role Phone Landon Quiles DO Primary Care Provider Reason for Referral * Medication Prior Authorization - Pending Review Specialty Diagnoses / Procedures Referred By Contac t Referred To Contact Diagnoses Fibromyalgia Ml Good MD [address] [place] [address] Referral ID Status Reason Start Date Expiration Date V isits Requested Visits Authorized [id number] Pending Review 999 999 Reason for Visit * Reason Comments Medication Refill Encounter Details Date Type Department Care Team (Late st Contact Info) Description 11/16/2023 Refill Family Practice [facility] [address] [place] [address] Landon Quiles DO [address] [place] [address] Fibromyalgia Allergies Active Allergy Reactions Criticality Noted Date [...] as of this encounter (statuses as of 11/18/2023) Medications Medication Sig Dispensed Refills Start Date [...] Gel Apply a thin ribbon to toothbrush. [place] twice daily in place of normal toothpaste 100 mL 4 3 Active Furosemide 20 MG Oral Tablet (Lasix) TAKE ONE TABLET BY MOUTH DAILY NEEDED FOR LEG SWELLING, FLUID ACCUMULATION OR WEIGHT GAIN. 30 Tablet 11 3 12/17/19 24 Active rOPINIRole HCl 0.5 MG Oral Tablet (Requip)Indicatio ns:Restless leg syndrome TAKE 1 TABLET BY MOUTH AT BEDTIME NEEDED RESTLESS LEGS 90 Tablet 3 3 Active Nystatin-Triamcin olone 556591-9.1 UNIT/GM-% External Cream (Mycolog)Indicati ons:Tinea cruris APPLY [...] 3 01/01/20 24 Active GNP UltiCare Pen [place] 32G X 4 MM (Insulin Pen Needle) [...] hemoglobin A1c goal of less than 8.0% ([facility]) Use as directed. 6 Each 3 4 Active Amoxicillin 500 MG Oral Capsule (Amoxil) take 1 capsule (500 mg) by oral route 2 times per day. Start this 2 days before tooth extraction. 14 Capsule 4 Active Additional Information Patient not taking.Reported on 08/22/2023 BD Analytics Developer Tray 27G X 1/2" 1 ML Kit [...] Release (Isoptin SR)Indications:PA T (paroxysmal atrial tachycardia) ([facility]) TAKE 1 TABLET BY MOUTH [...] for severe Pain 60 Tablet 4 Active oxyCODONE HCl 5 MG Oral Tablet (Oxy IR)Indications:Fi bromyalgia Take 1 Tablet by mouth every 8 hours as needed for severe Pain 60 Tablet 4 11/16/19 24 Discontin ued(Refil l) documented as of this encounter (statuses as of 11/18/2023) Active Problems Problem Noted Date Diagnosed Date [...] as of this encounter (statuses as of 11/18/2023) Resolved Problems Problem Noted Date Diagnosed Date [...] as of this encounter (statuses as of 11/18/2023) Immunizations Name Administration Dates Next Due COVID-19 mRNA, LNP-s, No Pre serve, 2-Dose Series ([employer]) 12/18/2020,06/20/2020,05/30/2020 COVID-19, LNP-s, No Preserve , Marshal-sucrose, Ages 12+ (AddSearch) 06/25/2021 Covid-19, Mrna, Lnp-s, Pf, B ivalent, 30 Mcg, IM, 12 yrs and above ([employer]) 12/31/2021 H1N1 2009 Influenza, IM 02/24/2009 Hepatitis [...] No 12/28/2022 Does the household have a [facility] [employer] [facility] source of income? (Household - for ages [...] encounter Miscellaneous Notes * Telephone Encounter - Ml Good MD - 11/18/2023 4:17 PM EDTSigned Prescriptions: Disp Refills oxyCODONE HCl 5 MG Oral Tablet (Oxy IR) 60 Tab*0 Sig: Take 1 Tablet by mouth every 8 hours as needed for severe Pain Authorizing Provider: ML GOOD * Telephone Encounter - Ayush Schaefer [facility] - 11/18/2023 10:21 AM EDT Pending Prescriptions: Disp Refills oxyCODONE HCl 5 MG Oral Tablet (Oxy IR) 60 Tab*0 Sig: Take 1 Tablet by mouth every 8 hours as needed for severe Pain * Telephone Encounter - Ayush Schaefer RP - 11/18/2023 10:18 AM EDT Images from the original note were not included. Please note - patient had Oxycodone and Tramadol filled by external provider 10/14/23 I have reviewed the patients controlled substance dispensing history in the Prescription Drug Monitoring Program in compliance with the [facility] regulations before prescribing a controlled substance. PDMP checked on 11/18/2023. Pending Prescriptions: Disp Refills oxyCODONE HCl 5 MG Oral Tablet (Oxy IR) 60 Tab*0 Sig: Take 1 Tablet by mouth every 8 hours as needed for severe Pain Last Visit: 10/24/2023 (in office), 03/02/2021 (telemedicine) Next Visit: 01/10/2024 Date medication was last filled: 10/14/23 Date medication is due for refill: 10/22/23 Pharmacy: [facility] Is this request for a controlled substance? Yes and Urine Drug Screen Not completed Toxicology results: No results found. However, due to the size of the patient record, not all encounters were searched.Please check Results Review for a complete set of results. Please approve if appropriate. Thanks, Ayush Schaefer, PharmD Clinical Pharmacist [facility] ([facility] [phone] 11/18/2023, 10:18 AM documented in this encounter Plan of Treatment Upcoming Encounters Date Type Department Care Team (Late st Contact Info) Description 11/30/2023 1:00 PM EDT Office Visit Hematology/Oncology [facility] [address] [place] [phone] Daniella Mccord CRNP [address] [place] [address] 11/30/2023 1:30 PM EDT Nurse Only Hematology/Oncology Treatment, [place] [address] [place] [phone] Sarai, Chair 3 Hem On[address] [place] [address] 12/07/2023 1:00 PM EDT Office Visit Pharmacy, [facility] [address] [facility] [place] [address] Pharmacist2, [facility] [address] [place] [address] 12/07/2023 1:40 PM EDT Anticoagulation Pharmacy, [facility] [address] [facility] [place] [address] Pharmacist2, [facility] [address] [place] [address] 12/27/2023 3:30 PM EDT Office Visit Gastroenterology, [facility] [address] [place] [address] Franchesca Almaraz CRNP [address] [place] [address] 01/10/2024 1:00 PM EST Office Visit Family Practice [facility] [address] [place] [address] Landon Quiles, [address] [place] [address] 05/04/2024 2:30 PM EST Office Visit Cardiology, [facility] 132 [facility] [place] [address] Catalina Schafer CRNP [address] [place] [address] 05/11/2024 1:40 PM EST Office Visit Family Practice [facility] [address] [facility] [place] [address] Jackeline Diaz CRNP 132 [facility] [place] [address] 09/17/2024 11:40 AM EDT Office Visit Sleep Disorders Ctr [facility] [address] [facility] [place] [phone] Bernadette Zuniga, [address] [facility] [place] [address] 11/20/2024 1:45 PM EDT Office Visit Urology, [facility] [address] [facility] [place] [address] Faustino Cárdenas MD [address] [place] [address] Scheduled Procedures Name Priority Associated Diagnoses Date/Ti [...] this encounter Medical Devices Implanted Type Area Consumer Loan Manager Device Identifier Shelf Expiration Date Model / Serial / Lot Graft Flex Hd 6 X 16cm [id number] - [id number] Implanted:Qty : 1 on 09/22/2010 [place] [facility] [place] - Human Left: Breast MUSCULOSKELETAL TRANSPLANT FND 04/28/2013 [id number] / [id number] / Graft Flex Hd 6 X 16cm [id number] - [id number] Implanted:Qty : 1 on 09/22/2010 at [place] [facility] [place] - Human Right: Chest MUSCULOSKELETAL TRANSPLANT FND 04/28/2013 [id number] / [id number] / Mediport Pwr Isp 8fr [id number] - [id number] Implanted:Qty : 1 on 09/22/2010 [place] [facility] [place]: Chest CR BARD : ACCESS SYSTEMS 07/13/2012 [id number] / / [id number] Breast Implant 354-2515 Saline - [id number] Implanted:Qty : 1 on 09/22/2010 [place] [facility] [place] Right: Breast MENTOR EVA 12/13/2013 354-2515 / [id number] Breast Implant 354-2515 Saline - [id number] Implanted:Qty : 1 on 09/22/2010 at [place] [facility] [place] Left: Breast MENTOR EVA 07/13/2014 354-2515 / [id number] Lens Intraoc 16.5 - [id number] - [id number] Implanted:Qty : 1 on 02/20/2016 by Lincoln Garces MD at OR [facility] Left: Eye BAUSCH & LOMB 08/04/2020 [id number] / [id number] / [id number] Lens Intraoc 15.5 - [id number] - [id number] Implanted:Qty : 1 on 03/09/2016 by Lincoln Garces MD at OR [facility] Right: Eye BAUSCH & LOMB 12/04/2017 [id number] / [id number] / documented as of this encounter Visit Diagnoses Diagnosis Fibromyalgia Mylagia and myositis, unspecified documented in this encounter Advance Directives * [...] and were consensually agreed upon. Care Teams Editor Continuity And Script Relationship Specialty Start Date End Date Landon Quiles DO [address] [place] [address] PCP - General Family Medicine 03/19/19 documented as of this encounter
--- OUTSIDE RECORDS SUMMARY | 2023-12-25 20:05 | External Medical Summary | Summary of Care ---
Author Name Unknown Organization [facility] Address [address] [place] [address] Phone [phone] Care Team Providers Care Hoop Riveting Machine Operator Name Role Phone Sylvester Quiles Primary Care Provider Reason for Visit * Reason Comments Follow Up Encounter Details Date Type Department Care Team (Late st Contact Info) Description 11/16/2023 11:45 AM EDT Office Visit Urology, [facility] [address] [facility] [place] [address] Faustino Cárdenas MD [address] [place] [...] Gel Apply a thin ribbon to toothbrush. Jayess twice daily in place of normal toothpaste [...] 90 Tablet 3 3 Active Nystatin-Triamcino lone 483523-3.1 UNIT/GM-% External Cream (Mycolog)Indicatio ns:Tinea cruris APPLY [...] 3 01/01/20 24 Active GNP UltiCare Pen [place] 32G X 4 MM (Insulin Pen Needle) [...] hemoglobin A1c goal of less than 8.0% ([facility]) Use as directed. 6 Each 3 4 Active Amoxicillin 500 MG Oral Capsule (Amoxil) take 1 capsule (500 mg) by oral route 2 times per day. Start this 2 days before tooth extraction. 14 Capsule 4 Active Additional Information Patient not taking.Reported on 08/22/2023 BD Software Integrator Tray 27G X 1/2" 1 ML Kit [...] Extended Release (Isoptin SR)Indications:PAT (paroxysmal atrial tachycardia) ([facility]) TAKE 1 TABLET BY MOUTH 3 [...] mRNA, LNP-s, No Pre serve, 2-Dose Series (M-KOPA) 12/18/2020,06/20/2020,05/30/2020 COVID-19, LNP-s, No Preserve , Marshal-sucrose, [...] Cárdenas MD - 11/16/2023 11:45 AM EDT [id number] PCP: SYLVESTER QUILES [address] [facility] [place] [address] [phone] Barbie Davidson is a 67 year old female, who presents for 1 year follow-up of her history of overactive bladder and stone disease. CT images from June 2023 are reviewed personally with patient. This demonstrates renal cysts, no stones or obstruction. Patient's recent back surgery is appreciated.Patient feels her voiding remains stable on oral medication. Patient is here today with linux administrator. Urolithiasis: Patient is being seen for stone [...] in Feb [address] Law at [facility]. Stone composition is uric acid. Previous evaluation [...] Gel Apply a thin ribbon to toothbrush. Jayess twice daily in place of normal toothpaste 100 mL 4 Furosemide 20 MG Oral Tablet (Lasix) TAKE ONE TABLET BY MOUTH DAILY NEEDED FOR LEG SWELLING, FLUID ACCUMULATION OR WEIGHT GAIN. 30 Tablet 11 rOPINIRole HCl 0.5 MG Oral Tablet (Requip) TAKE 1 TABLET BY MOUTH AT BEDTIME NEEDED RESTLESS LEGS 90 Tablet 3 Nystatin-Triamcinolone 007563-2.1 UNIT/GM-% External Cream (Mycolog) APPLY TOPICALLY TO [...] MORNING 90 Tablet 9 GNP UltiCare Pen [place] 32G X 4 MM (Insulin Pen Needle) [...] Reported on 08/22/2023) 14 Capsule 0 BD Software Integrator Tray 27G X 1/2" 1 ML Kit [...] Surgical History: Procedure Laterality Date BREAST RECONSTRUCTION W/CARE CONNECTOR 09/22/2010 BREAST RECONSTRUCTION WITH TISSUE CARE CONNECTOR performed by BRISA HALL [place] [facility] BX BREAST PERCUT W/IMAGE 12/10/2002 BCC CARPAL TUNNEL SURGERY 98/ double median nerve on L COLONOSCOPY, DIAGNOSTIC (RECTUM) 10/25/2017 diverticulosis, fair prep, repeat 5 yrs/[facility] COLONOSCOPY, DIAGNOSTIC (RECTUM) N/A 05/20/2023 sigmoid diverticulosis/hemorrhoids/Colonoscopy/[place] COLORECTAL CANCER SCREEN; NOT AT RISK 03/28/2007 repeat in 5 years due to prep CYSTOSCOPY 09/12/2017 DENTAL SURGERY PROCEDURE NEC wisdom teeth extraction DRAIN SKIN ABSCESS, COMPLIC/MULT 12/29/2010 INCISION AND DRAINAGE SKIN ABSCESS MULTIPLE performed by BRISA HALL at [place] [facility] EGD, FLEXIBLE, DIAGNOSTIC 01/16/2019 gastritis / [facility] EXPLORATION OF ABDOMEN 09/22/2010 EXPLORATORY LAPAROTOMY performed by JUAN CASTELLANOS at [place] [facility] IDENTIFY SENTINEL NODE, RADIOACTIVE TRACER 09/22/2010 INJECTION PROCEDURE FOR IDENTIFICATION SENTINEL NODE performed by SHRAVAN JACINTO at [place] [facility] INFORMATION 09/2008 left foot surgery INFORMATION 09/2008 Ruptured peroneus longus INSER TUNN ACC DEV;5 YRS/OLDER 09/22/2010 INSERT TUNNELED CENTRAL VENOUS ACCESS W* performed by SHRAVAN JACINTO at [place] [facility] LAPAROSCOPY;RMV ADNEXAL STRUCT 09/22/2010 LAPAROSCOPIC OOPHORECTOMY AND OR SALPINGECTOMY performed by JUAN CASTELLANOS at [place] [facility] MASTECTOMY, MODIFIED RADICAL 09/22/2010 MASTECTOMY MODIFIED RADICAL INCLUDING AXILLARY LYMPH NODES OR WTIHOUT PECTORALIS MINOR MUSCLE BUT EXCLUDING PECTORALIS MAJOR MUSCLE performed by SHRAVAN JACINTO at [place] [facility] MISCELLANEOUS ORDER ([facility] ONLY) 09/22/2010 tubes and ovaries MUSCLE/FASCIA DEBRIDEMENT, FIRST 20 CM2 12/29/2010 DEBRIDEMENT SKIN SUBCUTANEOUS TISSUE AND MUSCLE performed by BRISA HALL at [facility] REMOVAL OF OVARY(S) 09/22/2010 OOPHORECTOMY performed by JUAN CASTELLANOS at [place] [facility] REMOVE CATARACT, INSERT LENS PROSTH Left 02/20/2016 Left EXTRACAPSULAR CATARACT REMOVAL WITH INTRAOCULAR LENS performed by Lincoln Garces MD at OR [facility] REMOVE CATARACT, INSERT LENS PROSTH Right 03/09/2016 Right EXTRACAPSULAR CATARACT REMOVAL WITH INTRAOCULAR LENS performed by Lincoln Garces MD at OR [facility] REMOVE GALLBLADDER 03/14/1996 laparoscopic REMOVE TISSUE CARE CONNECTOR(S) 12/29/2010 REMOVAL CARE CONNECTOR WITHOUT INSERTION PROSTHESIS performed by BRISA HALL at [facility] SACROILIAC JOINT INJECT W/GUIDANCE 04/28/2020 INJECTION SACROILIAC JOINT performed by Pedro Kim DO at OR [facility] SACROILIAC JOINT INJECT W/GUIDANCE 10/20/2022 INJECTION SACROILIAC JOINT performed by Pedro Kim DO at OR [facility] TOTAL ABD HYSTERECTOMY W/WO REMOVAL OF TUBE(S) 09/22/2010 tubes and ovaries removed ONLY UMBIL HERNIA REPAIR (REDUCIBLE) AGE 5+YR 03/17/2012 03/17/2012 umbilical hernia repair - [facility] Dr. Jeremie Washington Past Medical History: Diagnosis [...] Inflammatory polyarthritis (HCC) 04/23/2019 INFORMATION 11/29/2013 tachycardia- [facility] Insomnia, unspecified Insomnia, unspecified Malignant neoplasm of female breast ([facility]) [id number] BRCA 1 pos Malignant neoplasm of overlapping sites of both breasts in female, estrogen receptor negative ([facility])03/29/2019 Nephrolithiasis 05/23/2017 Left sided 5mm noted on CT done by Matthew 05/05/17 LORE on CPAP 05/23/2006 Other chronic sinusitis Other lymphedema Paroxysmal SVT (supraventricular tachycardia) ([facility]) Phlebitis and thrombophlebitis of other deep vessels of lower extremities R leg post traumatic Pulmonary embolism ([facility]) RLS (restless legs syndrome) 11/10/2012 Has both aching and restlessness Sleep apnea Sleep apnea Wheelchair dependence 04/23/2019 Patient Active Problem List Diagnosis Gastroesophageal reflux disease with esophagitis Fibromyalgia LORE on CPAP BRCA1 positive RLS (restless legs syndrome) PAT (paroxysmal atrial tachycardia) ([facility]) Dyslipidemia Raynaud disease History of pulmonary embolism History of breast cancer 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 ([facility]) HTN, goal below 130/80 Gastroparesis Inflammatory polyarthritis ([facility]) Moderate persistent asthma without complication PTSD (post-traumatic stress disorder) Uveitis of right eye Generalized osteoarthritis Chronic diastolic congestive heart failure ([facility]) Type 2 diabetes mellitus with hemoglobin A1c goal of less than 8.0% ([facility]) H/O bilateral mastectomy Body mass index (BMI) of 45.0 to 49.9 in adult ([facility]) Encounter for long-term (current) use of medications Pleural effusion Malignant neoplasm of overlapping sites of both breasts in female, estrogen receptor positive ([facility]) Hiatal hernia Constitutional: (-) fever and (-) [...] 11/30/2023 1:00 PM EDT Office Visit Hematology/Oncology [address] [place] [phone] Daniella Mccord CRNP [address] [place], [place] [address] [address] 11/30/2023 1:30 PM EDT Nurse Only Hematology/Oncology Treatment, [place] [address] [facility] [place] [phone] Sarai, Chair 3 Hem Onc [address] [place] [address] 12/07/2023 1:00 PM EDT Office Visit Pharmacy, [address] [place] [address] Pharmacist2, [facility] [address] [facility] [place] [address] 12/07/2023 1:40 PM EDT Anticoagulation Pharmacy, [facility] [address] [place] [address] Pharmacist2, [facility] [address] [facility] [place] [address] 12/27/2023 3:30 PM EDT Office Visit Gastroenterology, [facility] [address] [place] [address] Franchesca Almaraz CRNP [address] [facility] [place] [address] 01/10/2024 1:00 PM EST Office Visit Family Practice [facility] [address] [place] [address] Sylvester Quiles DO [address] [place] [address] 05/04/2024 2:30 PM EST Office Visit Cardiology, [facility] [address] [place] [address] Catalina Schafer CRNP [address] [place], [place] [address] [address] 05/11/2024 1:40 PM EST Office Visit Family Practice [facility] [address] [place] [address] Jackeline Diaz CRNP [address] [place] [address] 09/17/2024 11:40 AM EDT Office Visit Sleep Disorders Ctr [facility] [address] [place] [phone] Bernadette Zuniga, DO [address] [place] [address] Scheduled Orders Name Type Priority Associated Diagnoses [...] 07/10/2021, 07/22/2020, Additional history exists COVID-19 Vaccine (2022- season) 2023 06/25/2023, 12/31/2021, 06/25/2021, Additional history exists Influenza Vaccine (FLU shot) (#1) 2023 11/25/2022, 12/03/2021, 11/21/2020, Additional history exists HbA1c 04/01/2024 09/30/2023, 04/07, 12/21/2022, Additional history exists B-12 05/31/2024 06/01/2023, 05/0 10/2022, 03/02/2021, Additional history exists Albumin/Creatinine Ratio 06/28/2024 024, 07/12/2022, 04/07/2021, Additional history exists GFR 10/27/2024 10/28/2023, 042 08/2023, 06/29/2023, Additional history exists Pneumococcal Vaccine: 65+ [...] this encounter Medical Devices Implanted Type Area Rail Express Clerk Device Identifier Shelf Expiration Date Model / Serial / Lot Graft Flex Hd 6 X 16cm [id number] - [id number] Implanted:Qty : 1 on 09/22/2010 at [place] [facility] Tissue - Human Left: Breast MUSCULOSKELETAL TRANSPLANT FND 04/28/2013 [id number] / [id number] / Graft Flex Hd 6 X 16cm [id number] - [id number] Implanted:Qty : 1 on 09/22/2010 at [place] [facility] Tissue - Human Right: Chest MUSCULOSKELETAL TRANSPLANT FND 04/28/2013 [id number] / [id number] / Mediport Pwr Isp 8fr [id number] - [id number] Implanted:Qty : 1 on 09/22/2010 at [place] [facility] Right: Chest CR BARD : ACCESS SYSTEMS 07/13/2012 [id number] / / [id number] Breast Implant [id number] Saline - [id number] Implanted:Qty : 1 on 09/22/2010 at [place] [facility] Right: Breast MENTOR EVA 12/13/2013 [id number] / [id number] Breast Implant 354-2515 Saline - [id number] Implanted:Qty : 1 on 09/22/2010 at [place] [facility] Left: Breast MENTOR EVA 07/13/2014 354-2515 / [id number] Lens Intraoc 16.5 - [id number] - [id number] Implanted:Qty : 1 on 02/20/2016 by Lincoln Garces MD at OR [facility] Left: Eye BAUSCH & LOMB 08/04/2020 [id number] / [id number] / [id number] Lens Intraoc 15.5 - [id number] - [id number] Implanted:Qty : 1 on 03/09/2016 by Lincoln Garces MD at OR [facility] Right: Eye BAUSCH & LOMB 12/04/2017 [id number] / [id number] / documented as of this encounter Visit [...] and were consensually agreed upon. Care Teams Hoop Riveting Machine Operator Relationship Specialty Start Date End Date Sylvester Quiles DO [address] [place] [address] PCP - General Family Medicine 03/19/19 documented as of this encounter
--- OUTSIDE RECORDS SUMMARY | 2023-12-25 20:05 | External Medical Summary ---
Author Name Unknown Address Unknown Organization K01:[facility] [place] [address] [place] [address] Laboratory Report Ordering Provider Test Date Status ESTHER DENIS 11/30/2023 13:26:14 Final Observation Date Value Abnormality Reference (Units ) Status Cancer Ag 19-9 11/30/2023 13:26:14 13.6 <35.0 (U/mL) Final Performing Location [facility] - [address] [place] [address]
--- OUTSIDE RECORDS SUMMARY | 2023-12-25 20:06 | External Medical Summary | Summary of Care ---
Author Name Unknown Organization [facility] Address [address] [place] [address] Phone [phone] Care Team Providers Care Wagon Driller Name Role Phone Landon Quiles DO Primary Care Provider Reason for Visit * Reason Onset Date Comments Home Health 10/31/2023 Encounter Details Date Type Department Care Team (Late st Contact Info) Description 10/31/2023 Telephone Family Practice [facility] [address] [place] [address] Landon Quiles DO [address] [place] [address] Home Health Allergies Active Allergy Reactions Criticality Noted Date Comments Allopurinol Edema Other,Fever,Hives 07/21/2021 Aloe Vera 09/23/2023 Benzocaine 09/23/2023 Clindamycin High 03/22/2022 Esophageal swelling and a rash Codeine Itching 12/29/2010 rash Dexamethasone Tachycardia 10/24/2023 Erythromycin 07/25/2000 stomach cramps Fluticasone 09/23/2023 Gabapentin Edema Other Medium 12/09/2011 Pt c/o edema in feet and hands Hyoscyamine Edema Other 06/29/2018 Sitagliptin Phosphate Edema Other Low 12/06/2013 Ankle and hand swelling Mineral Oil 09/23/2023 Nickel Rash 06/29/2018 Potassium 10/28/2011 Rash with one formulation PO tabs Adhesive Tape 12/25/2010 Tricyclic Antidepressants Medium 04/19/2007 Swelling of hands and arms Vagisil 09/27/2012 documented as of this encounter (statuses as of 11/01/2023) Medications Medication Sig Dispensed Refills Start Date [...] Gel Apply a thin ribbon to toothbrush. Colton twice daily in place of normal toothpaste [...] 90 Tablet 3 3 Active Nystatin-Triamcino lone 829575-0.1 UNIT/GM-% External Cream (Mycolog)Indicatio ns:Tinea cruris APPLY [...] 3 01/01/20 24 Active GNP UltiCare Pen [place] 32G X 4 MM (Insulin Pen Needle) [...] Information Patient not taking.Reported on 08/22/2023 BD Device Test Engineer Tray 27G X 1/2" 1 ML [...] Extended Release (Isoptin SR)Indications:PAT (paroxysmal atrial tachycardia) ([facility]) TAKE [...] 90 Tablet 3 4 10/11/19 25 Active traMADol HCl 50 MG Oral Tablet (Ultram) Take 1 Tablet by mouth every 6 hours as needed for Pain, Moderate. 4 Active Mupirocin 2 % External Ointment (Bactroban) Apply topically to affected area as needed for Other. 4 Active metFORMIN HCl ER 500 MG Oral Tablet Extended Release 24 Hour (Glucophage XR) TAKE 4 TABLETS BY MOUTH DAILY WITH DINNER. 360 Tablet 3 4 10/29/19 25 Active documented as of this encounter (statuses as of 11/01/2023) Active Problems Problem Noted Date Diagnosed Date [...] as of this encounter (statuses as of 11/01/2023) Resolved Problems Problem Noted Date Diagnosed Date [...] as of this encounter (statuses as of 11/01/2023) Immunizations Name Administration Dates Next Due COVID-19 mRNA, LNP-s, No Pre serve, 2-Dose Series ([employer]) 12/18/2020,06/20/2020,05/30/2020 COVID-19, LNP-s, No Preserve , Marshal-sucrose, [...] encounter Miscellaneous Notes * Telephone Encounter - Marilyn Bolanos LPN - 11/01/2023 9:41 AM EDT Called [facility] and spoke with Lia. Relayed information from Dr Quiles to her. She voiced understanding. * Telephone Encounter - Landon Quiles DO - 10/31/2023 2:29 PM EDT Ok to continue this as this has worked for her in past * Telephone Encounter - Candace Dugan LPN - 10/31/2023 12:09 PM EDT Concerns Amber SANTOS, Calling from: [facility] Report/Concerns of: chronic blisters that open up and dry out. Symptoms: none Vitals: T 97.3 P 84 RR 120/64 BP 18 SP O2 96 Lung sounds clear Weight n/a Blood sugar has a dewey. 199 non-fasting Narrative: Patient reports she has a chronic problem. Right buttock started as a cluster of tiny blisters 6 x 3 cm then they open. Applying bactroban and foam bandage. Needs clarification that this is what the doctor wants her to do. Patient reports she has had this problem and that it comes and goes. The bactroban and foam dressing is what she has used in the past. Please advise. Call back Amber with any advice or orders at [phone] Please fax new orders to [facility] Home Health documented in this encounter Plan of Treatment Upcoming Encounters Date Type Department Care Team (Late st Contact Info) Description 11/04/2023 1:30 PM EDT Office Visit Cardiology, [facility] [address] [facility] [place] [address] Catalina Schafer CRNP [address] [place] [address] 11/16/2023 11:45 AM EDT Office Visit Urology, [facility] 132 [facility] [place] [address] Faustino Cárdenas MD [address] [place] [address] 11/30/2023 1:00 PM EDT Office Visit Hematology/Oncology [address] [place] [address] Daniella Mccord CRNP [address] [place] [address] 11/30/2023 1:30 PM EDT Nurse Only Hematology/Oncology Treatment, [address] [place] [phone] Sarai, Chair 3 Hem Onc [address] [place] [address] 12/07/2023 1:00 PM EDT Office Visit Pharmacy, [facility] [address] [facility] [place] [address] Pharmacist2, [facility] [address] [facility] [place] [address] 12/07/2023 1:40 PM EDT Anticoagulation Pharmacy, [facility] [address] [facility] [place] [address] Pharmacist2, [facility] [address] [facility] [place] [address] 12/27/2023 3:30 PM EDT Office Visit Gastroenterology, [facility] [address] [place] [address] Franchesca Almaraz CRNP [address] [place] [address] 01/10/2024 1:00 PM EST Office Visit Family Practice [facility] [address] [place] [address] Landon Quiles, [address] [place] [address] 05/11/2024 1:40 PM EST Office Visit Family Practice [facility] [address] [place] [address] Jackeline Diaz CRNP [address] [place] [address] 09/17/2024 11:40 AM EDT Office Visit Sleep Disorders Ctr [facility] [address] [place] [phone] Bernadette Zuniga, DO [address] [place] [address] Health Maintenance Due Date Last Done Comments [...] this encounter Medical Devices Implanted Type Area Pharmaceutical Representative Device Identifier Shelf Expiration Date Model / Serial / Lot Graft Flex Hd 6 X 16cm [id number] - [id number] Implanted:Qty : 1 on 09/22/2010 at OR [facility] Tissue - Human Left: Breast MUSCULOSKELETAL TRANSPLANT FND 04/28/2013 [id number] / [id number] / Graft Flex Hd 6 X 16cm [id number] - [id number] Implanted:Qty : 1 on 09/22/2010 at OR [facility] Tissue - Human Right: Chest MUSCULOSKELETAL TRANSPLANT FND 04/28/2013 [id number] / [id number] / Mediport Pwr Isp 8fr [id number] - [id number] Implanted:Qty : 1 on 09/22/2010 at OR [facility] Right: Chest CR BARD : ACCESS SYSTEMS 07/13/2012 [id number] / / [id number] Breast Implant [id number] Saline - [id number] Implanted:Qty : 1 on 09/22/2010 at OR [facility] Right: Breast MENTOR EVA 12/13/2013 354-2515 / [id number] Breast Implant [id number] Saline - [id number] Implanted:Qty : 1 on 09/22/2010 at OR [facility] Left: Breast MENTOR EVA 07/13/2014 354-2515 / [id number] Lens Intraoc 16.5 - [id number] - [id number] Implanted:Qty : 1 on 02/20/2016 by Lincoln Garces MD at [place] [facility] Left: Eye BAUSCH & LOMB 08/04/2020 [id number] / [id number] / [id number] Lens Intraoc 15.5 - [id number] - [id number] Implanted:Qty : 1 on 03/09/2016 by Lincoln Garces MD at [place] [facility] Right: Eye BAUSCH & LOMB 12/04/2017 [id number] / [id number] / documented as of this encounter Advance [...] and were consensually agreed upon. Care Teams Wagon Driller Relationship Specialty Start Date End Date Landon Quilse DO [address] [place] [address] PCP - General Family Medicine 03/19/19 documented as of this encounter
--- OUTSIDE RECORDS SUMMARY | 2023-12-25 20:06 | External Medical Summary | Summary of Care ---
Author Name Unknown Organization [facility] Address [address] [place] [address] Phone [phone] Care Team Providers Care Pipe Fitter Supervisor Maintenance Name Role Phone Lalo Quilesr Anayeli Primary Care Provider Reason for Visit * Reason Comments Follow Up Encounter Details Date Type Department Care Team (Late st Contact Info) Description 11/04/2023 1:30 PM EDT Office Visit Cardiology, [facility] [address] [facility] [place] [address] Catalina Schafer CRNP [address] [place] [address] PAT (paroxysmal atrial tachycardia) (HCC)*; HTN, goal below 130/80; LORE on CPAP; SOB (shortness of breath); Dyslipidemia; History of pulmonary embolism Allergies Active Allergy Reactions Criticality Noted Date [...] Gel Apply a thin ribbon to toothbrush. [place] twice daily in place of normal toothpaste [...] 90 Tablet 3 3 Active Nystatin-Triamcin olone 065681-9.1 UNIT/GM-% External Cream (Mycolog)Indicati ons:Tinea cruris APPLY [...] 3 01/01/20 24 Active GNP UltiCare Pen [place] 32G X 4 MM (Insulin Pen Needle) [...] hemoglobin A1c goal of less than 8.0% ([facility]) Use as directed. 6 Each 3 4 Active Amoxicillin 500 MG Oral Capsule (Amoxil) take 1 capsule (500 mg) by oral route 2 times per day. Start this 2 days before tooth extraction. 14 Capsule 4 Active Additional Information Patient not taking.Reported on 08/22/2023 BD Retail Merchandising Manager Tray 27G X 1/2" 1 ML [...] Release (Isoptin SR)Indications:PA T (paroxysmal atrial tachycardia) ([facility]) TAKE 1 TABLET BY MOUTH 3 [...] 360 Tablet 3 4 10/29/19 25 Active traMADol HCl 50 MG Oral Tablet (Ultram) Take 1 Tablet by mouth every 6 hours as needed for Pain, Moderate. 4 11/04/19 24 Discontin ued(Patie nt preferenc e/discont inuation) documented as of this encounter (statuses as [...] mRNA, LNP-s, No Pre serve, 2-Dose Series (boo-box) 12/18/2020,06/20/2020,05/30/2020 COVID-19, LNP-s, No Preserve , Marshal-sucrose, Ages 12+ (Pfizer) 06/25/2021 Covid-19, Mrna, Lnp-s, Pf, B ivalent, 30 Mcg, IM, 12 yrs and above (boo-box) 12/31/2021 H1N1 2009 Influenza, IM 02/24/2009 Hepatitis [...] Sign Reading Time Taken Comments Blood Pressure 126/62 11/04/2023 1:50 PM EDT Pulse 80 11/04/2023 1:50 PM EDT Temperature - - Respiratory Rate 16 11/04/2023 1:50 PM EDT Oxygen Saturation - - Inhaled Oxygen Concentration - - Weight 122.2 kg (269 lb 8 oz) 11/04/2023 1:50 PM EDT Height - - Body Mass Index 46.26 09/15/2023 11:42 AM EDT documented in this encounter Progress Notes * Barbie Shaw, - 11/06/2023 3:43 PM EDT I have reviewed the advanced practitioner's documentation on the date of service referenced in note, and I agree with, and take responsibility for the plan of care. Pt seen in routine EP F/u due to PAT and NSVT Pt was last seen by me when in the hospital post op from cervical spine operation where she had a run of PAT that was not symptomatic Pt has been recovering ok SOB maybe slightly worse than normal HR are ok No change in cardiac medications EP f/u 6 months Barbie Shaw DO Department of Cardiology [facility] [place] [address] documented in this encounter Nursing Notes * Isabella Oneal CMA - 11/04/2023 1:48 PM EDT Examination Room: 11 Name: Barbie Davidson Date of : (1955). Reason for Visit: 7M f/u Interim Hospitalization(s): [facility] Problems/Concerns: Lightheadedness with positional changes, usually brief and no falls. Using furosemide about once every 2 weeks. Chest Pain/SOB: Denies CP. SOBOE, baseline [facility] Discussed: Not applicable [employer] is a way you can talk to your provider online through e-mail. Would you like to sign up? I can activate it for you? ALREADY ACTIVE Patient was instructed to not get up on the exam table until directed and assisted by their provider; patient is to remain seated in the chair/ wheelchair/ exam table for fall prevention and safety reasons. Patient is aware to have assistance to step down off exam table with personnel. Patient voiced full comprehension of instructions. documented in this encounter Plan of Treatment Upcoming Encounters Date Type Department Care Team (Late st Contact Info) Description 11/16/2023 11:45 AM EDT Office Visit Urology, [facility] [address] [place] [address] Faustino Cárdenas MD [address] [place] [address] 11/30/2023 1:00 PM EDT Office Visit Hematology/Oncology [facility] [address] [place] [address] Daniella Johansen CRNP [address] [facility] [place] [address] 11/30/2023 1:30 PM EDT Nurse Only Hematology/Oncology Treatment, [place] [address] [place] [phone] Park, Chair 3 Hem Onc Scene [address] [facility] [place] [address] 12/07/2023 1:00 PM EDT Office Visit Pharmacy, [facility] [address] [facility] [place] [address] Pharmacist2, [facility] [address] [facility] [place] [address] 12/07/2023 1:40 PM EDT Anticoagulation Pharmacy, [facility] [address] [place] [address] Pharmacist2, [facility] [address] [facility] [place] [address] 12/27/2023 3:30 PM EDT Office Visit Gastroenterology, [facility] [address] [place] [address] Franchesca Almaraz CRNP [address] [place] [address] 01/10/2024 1:00 PM EST Office Visit Family Practice [facility] [address] [place] [address] Landon Quiles, [address] [place] [address] 05/04/2024 2:30 PM EST Office Visit Cardiology, [facility] [address] [place] [address] Catalina Schafer CRNP [address] [place] [address] 05/11/2024 1:40 PM EST Office Visit Family Practice [facility] [address] [place] [address] Jackeline Diaz CRNP [address] [place] [address] 09/17/2024 11:40 AM EDT Office Visit Sleep Disorders Ctr [facility] [address] [place] [phone] Bernadette Zuniga DO [address] [place] [address] Scheduled Procedures Name Priority Associated Diagnoses Date/Ti [...] this encounter Medical Devices Implanted Type Area Associate Merchandise Planner Device Identifier Shelf Expiration Date Model / Serial / Lot Graft Flex Hd 6 X 16cm [id number] - [id number] Implanted:Qty : 1 on 09/22/2010 at OR [facility] Tissue - Human Left: Breast MUSCULOSKELETAL TRANSPLANT FND 04/28/2013 [id number] / [id number] / Graft Flex Hd 6 X 16cm [id number] - [id number] Implanted:Qty : 1 on 09/22/2010 at OR [facility] Tissue - Human Right: Chest MUSCULOSKELETAL TRANSPLANT FND 04/28/2013 [id number] / [id number] / Mediport Pwr Isp 8fr [id number] - [id number] Implanted:Qty : 1 on 09/22/2010 at OR [facility] Right: Chest CR BARD : ACCESS SYSTEMS 07/13/2012 [id number] / / [id number] Breast Implant 354-2515 Saline - [id number] Implanted:Qty : 1 on 09/22/2010 at OR [facility] Right: Breast MENTOR EVA 12/13/2013 354-2515 / [id number] Breast Implant 354-2515 Saline - [id number] Implanted:Qty : 1 on 09/22/2010 at OR [facility] Left: Breast MENTOR EVA 07/13/2014 354-2515 / [id number] Lens Intraoc 16.5 - [id number] - [id number] Implanted:Qty : 1 on 02/20/2016 by Lincoln Garces MD at OR [facility] Left: Eye BAUSCH & LOMB 08/04/2020 [id number] / [id number] / [id number] Lens Intraoc 15.5 - [id number] - [id number] Implanted:Qty : 1 on 03/09/2016 by Lincoln Garces MD at OR [facility] Right: Eye BAUSCH & LOMB 12/04/2017 [id number] / [id number] / documented as of this encounter Visit Diagnoses Diagnosis PAT (paroxysmal atrial tachycardia) (HCC)- Primary Paroxysmal supraventricular tachycardia HTN, goal below 130/80 Unspecified essential hypertension LORE on CPAP Obstructive sleep apnea (adult) (pediatric) SOB (shortness of breath) Shortness of breath Dyslipidemia Other and unspecified hyperlipidemia History of pulmonary embolism Personal history of pulmonary embolism documented in this encounter Advance Directives * [...] and were consensually agreed upon. Care Teams Pipe Fitter Supervisor Maintenance Relationship Specialty Start Date End Date Landon Quiles DO [facility] [place] [address] PCP - General Family Medicine 03/19/19 documented as of this encounter
--- OUTSIDE RECORDS SUMMARY | 2023-12-25 20:06 | External Medical Summary | Summary of Care ---
Author Name Unknown Organization [facility] Address [address] [place] [address] Phone [phone] Care Team Providers Care Camp Dishwasher Name Role Phone Landon Quiles Primary Care Provider Reason for Visit * Reason Onset Date Comments Endoscopy Recall 11/10/2023 Encounter Details Date Type Department Care Team (Late st Contact Info) Description 11/10/2023 Telephone Gastroenterology, [facility] [address] [facility] [place] [address] Laina Alaniz MD [address] [place] [address] [place] [address] Endoscopy Recall Allergies Active Allergy Reactions Criticality Noted Date [...] as of this encounter (statuses as of 11/11/2023) Medications Medication Sig Dispensed Refills Start Date [...] Gel Apply a thin ribbon to toothbrush. [place] twice daily in place of normal toothpaste [...] 90 Tablet 3 3 Active Nystatin-Triamcino lone 508125-7.1 UNIT/GM-% External Cream (Mycolog)Indicatio ns:Tinea cruris APPLY [...] 3 01/01/20 24 Active GNP UltiCare Pen [place] 32G X 4 MM (Insulin Pen Needle) [...] hemoglobin A1c goal of less than 8.0% ([facility]) Use as directed. 6 Each 3 4 Active Amoxicillin 500 MG Oral Capsule (Amoxil) take 1 capsule (500 mg) by oral route 2 times per day. Start this 2 days before tooth extraction. 14 Capsule 4 Active Additional Information Patient not taking.Reported on 08/22/2023 BD Urologic Nurse Tray 27G X 1/2" 1 ML Kit [...] as of this encounter (statuses as of 11/11/2023) Active Problems Problem Noted Date Diagnosed Date [...] as of this encounter (statuses as of 11/11/2023) Resolved Problems Problem Noted Date Diagnosed Date [...] as of this encounter (statuses as of 11/11/2023) Immunizations Name Administration Dates Next Due COVID-19 mRNA, LNP-s, No Pre serve, 2-Dose Series (Project WBS) 12/18/2020,06/20/2020,05/30/2020 COVID-19, LNP-s, No Preserve , Marshal-sucrose, Ages 12+ (Pfizer) 06/25/2021 Covid-19, Mrna, Lnp-s, Pf, B ivalent, 30 Mcg, IM, 12 yrs and above (Project WBS) 12/31/2021 H1N1 2009 Influenza, IM 02/24/2009 Hepatitis [...] encounter Miscellaneous Notes * Telephone Encounter - Itzel Cobos OSA - 11/11/2023 1:00 PM EDT Images from the original note were not included. Laina Alaniz MD You1 hour ago (11:15 AM) She was a difficult colonoscopy. Recall could be considered in 3-5 years but should be done with an advanced endoscopist. Thank you! * Telephone Encounter - Itzel Cobos OSA - 11/10/2023 4:33 PM EDT Pt had colonoscopy 05/20/23 and has hx colon polyps. Do you recommend pt be on recall? Thanks! documented in this encounter Plan of Treatment Upcoming Encounters Date Type Department Care Team (Late st Contact Info) Description 11/16/2023 11:45 AM EDT Office Visit Urology, [facility] 132 [facility] [place] [address] Faustino Cárdenas MD [address] [place] [address] 11/30/2023 1:00 PM EDT Office Visit Hematology/Oncology [facility] 200 [facility] [place] [phone] Daniella Mccord CRNP [address] [facility] [address] 11/30/2023 1:30 PM EDT Nurse Only Hematology/Oncology Treatment[facility] [place] [facility] [phone] Sarai, Chair 3 Hem Onc [address] [place] [address] 12/07/2023 1:00 PM EDT Office Visit Pharmacy, [facility] 200 [facility] [place] [address] Pharmacist2, [facility] [address] [facility] [place] [address] 12/07/2023 1:40 PM EDT Anticoagulation Pharmacy, [facility] [address] [facility] [place] [address] Pharmacist2, [facility] [address] [facility] [place] [address] 12/27/2023 3:30 PM EDT Office Visit Gastroenterology, [facility] [address] [place] [address] Franchesca Almaraz CRNP [address] [place] [address] 01/10/2024 1:00 PM EST Office Visit Family Practice [facility] [address] [place] [address] Landon Quiles DO [address] [place] [address] 05/04/2024 2:30 PM EST Office Visit Cardiology, [facility] [address] [facility] [place] [address] Catalina Schafer CRNP [address] [facility] [place] [address] 05/11/2024 1:40 PM EST Office Visit Family Practice [facility] [address] [place] [address] Jackeline Diaz CRNP [address] [place] [address] 09/17/2024 11:40 AM EDT Office Visit Sleep Disorders Ctr [facility] [address] [place] [phone] Bernadette Zuniga DO [address] [place] [address] Health Maintenance Due Date Last Done Comments [...] this encounter Medical Devices Implanted Type Area Profile Grinder Technician Device Identifier Shelf Expiration Date Model / Serial / Lot Graft Flex Hd 6 X 16cm [id number] - [id number] Implanted:Qty : 1 on 09/22/2010 at OR [facility] Tissue - Human Left: Breast MUSCULOSKELETAL TRANSPLANT FND 04/28/2013 [id number] / [id number] / Graft Flex Hd 6 X 16cm [id number] - [id number] Implanted:Qty : 1 on 09/22/2010 at OR [facility] [facility] Tissue - Human Right: Chest MUSCULOSKELETAL TRANSPLANT FND 04/28/2013 [id number] / [id number] / Mediport Pwr Isp 8fr [id number] - [id number] Implanted:Qty : 1 on 09/22/2010 at OR [facility] Right: Chest CR BARD : ACCESS SYSTEMS 07/13/2012 [id number] / / [id number] Breast Implant 354-2515 Saline - [id number] Implanted:Qty : 1 on 09/22/2010 at OR [facility] Right: Breast MENTOR EVA 12/13/2013 354-2515 / [id number] Breast Implant 354-2515 Saline - [id number] Implanted:Qty : 1 on 09/22/2010 at OR [facility] Left: Breast MENTOR EVA 07/13/2014 354-2515 / [id number] / [id number] Lens Intraoc 16.5 - [id number] - [id number] Implanted:Qty : 1 on 02/20/2016 by Lincoln Garces MD at OR [facility] Left: Eye BAUSCH & LOMB 08/04/2020 [id number] / [id number] / [id number] Lens Intraoc 15.5 - [id number] - [id number] Implanted:Qty : 1 on 03/09/2016 by Lincoln Garces MD at OR [facility] Right: Eye BAUSCH & LOMB 12/04/2017 [id number] / [id number] / documented as of this encounter Advance [...] and were consensually agreed upon. Care Teams Camp Dishwasher Relationship Specialty Start Date End Date Landon Quiles DO [address] [place] [address] PCP - General Family Medicine 03/19/19 documented as of this encounter
--- OUTSIDE RECORDS SUMMARY | 2023-12-25 20:06 | External Medical Summary | Summary of Care ---
Author Name Unknown Organization [facility] Address [address] [place] [address] Phone [phone] Care Team Providers Care Transportation Engineer Name Role Phone Landon Quilesray Primary Care Provider Reason for Visit * Reason Comments Procedure Port flush/labs from port Encounter Details Date Type Department Care Team (Late st Contact Info) Description 10/28/2023 12:45 PM EDT Nurse Only Hematology/Oncology Treatment, [address] [phone] Park, Chair 10 Hem Onc [address] [address] Procedure (Port flush/labs from port) Allergies Active Allergy Reactions Criticality Noted Date [...] Gel Apply a thin ribbon to toothbrush. [place] twice daily in place of normal toothpaste [...] 90 Tablet 3 3 Active Nystatin-Triamcin olone 206336-3.1 UNIT/GM-% External Cream (Mycolog)Indicati ons:Tinea cruris APPLY [...] 3 01/01/20 24 Active GNP UltiCare Pen [place] 32G X 4 MM (Insulin Pen Needle) [...] hemoglobin A1c goal of less than 8.0% ([facility]) Use as directed. 6 Each 3 4 Active Amoxicillin 500 MG Oral Capsule (Amoxil) take 1 capsule (500 mg) by oral route 2 times per day. Start this 2 days before tooth extraction. 14 Capsule 4 Active Additional Information Patient not taking.Reported on 08/22/2023 BD Recording Clerk Tray 27G X 1/2" 1 ML Kit [...] Release (Isoptin SR)Indications:PA T (paroxysmal atrial tachycardia) ([facility]) TAKE 1 TABLET BY MOUTH [...] DAILY WITH DINNER. 360 Tablet 3 3 10/27/19 24 Discontin ued(Refil l) traMADol HCl 50 MG Oral Tablet (Ultram) [...] mRNA, LNP-s, No Pre serve, 2-Dose Series (Askablogr) 12/18/2020,06/20/2020,05/30/2020 COVID-19, LNP-s, No Preserve , Marshal-sucrose, [...] as of this encounter Nursing Notes * Marietta Haley, RN - 10/28/2023 3:06 PM EDT VAD (Venous Access Device) accessed with #19G 3/4" without difficulty. Specimen collected for ordered labs. VAD flushed with 10 ml NSS and Heparin 5 ml (100 units/ml). Ramos needle removed intact. Ptdischarged in stable condition. documented in this encounter Plan of Treatment Upcoming Encounters Date Type Department Care Team (Late st Contact Info) Description 11/16/2023 11:45 AM EDT Office Visit Urology, [facility] 132 [facility] [place] [address] Faustino Cárdenas MD [address] [place] [address] 11/30/2023 1:00 PM EDT Office Visit Hematology/Oncology [facility] 200 [facility] [place] [phone] Daniella Mccord CRNP [address] [place] [address] 11/30/2023 1:30 PM EDT Nurse Only Hematology/Oncology Treatment, [place] [address] [place], [place] [phone] [place], Chair 3 Hem Onc [facility] [address] [facility] [place] [address] 12/07/2023 1:00 PM EDT Office Visit Pharmacy, [facility] [address] [facility] [place] [address] Pharmacist2, [facility] [address] [facility] [place] [address] 12/07/2023 1:40 PM EDT Anticoagulation Pharmacy, [facility] [address] [facility] [place] [address] Pharmacist2, [facility] [address] [facility] [place] [address] 12/27/2023 3:30 PM EDT Office Visit Gastroenterology, [facility] [address] [place] [address] Franchesca Almaraz CRNP [address] [place] [address] 01/10/2024 1:00 PM EST Office Visit Family Practice [facility] [address] [place] [address] Landon Quiles DO [address] [place] [address] 05/04/2024 2:30 PM EST Office Visit Cardiology, [facility] [address] [place] [address] Catalina Schafer CRNP [address] [place] [address] 05/11/2024 1:40 PM EST Office Visit Family Practice [facility] [address] [place] [address] Jackeline Diaz CRNP [address] [place] [address] 09/17/2024 11:40 AM EDT Office Visit Sleep Disorders Ctr [facility] [address] [place] [phone] Bernadette Zuniga DO [address] [place] [address] Health Maintenance Due Date Last Done Comments [...] this encounter Medical Devices Implanted Type Area Supervisor [place] Device Identifier Shelf Expiration Date Model / Serial / Lot Graft Flex Hd 6 X 16cm [id number] - [id number] Implanted:Qty : 1 on 09/22/2010 [place] [facility] [place] - Human Left: Breast MUSCULOSKELETAL TRANSPLANT FND 04/28/2013 [id number] / [id number] / Graft Flex Hd 6 X 16cm [id number] - [id number] Implanted:Qty : 1 on 09/22/2010 at [place] [facility] [place] Tissue - Human Right: Chest MUSCULOSKELETAL TRANSPLANT FND 04/28/2013 [id number] / [id number] / Mediport Pwr Isp 8fr [id number] - [id number] Implanted:Qty : 1 on 09/22/2010 at [place] [facility] [place] Right: Chest CR BARD : ACCESS SYSTEMS 07/13/2012 [id number] / / [id number] Breast Implant 354-2515 Saline - [id number] Implanted:Qty : 1 on 09/22/2010 at [place] [facility] [place] Right: Breast MENTOR EVA 12/13/2013 [id number] / [id number] Breast Implant 354-2515 Saline - [id number] Implanted:Qty : 1 on 09/22/2010 at [place] [facility] [place] Left: Breast MENTOR EVA 07/13/2014 [id number] / [id number] Lens Intraoc 16.5 - [id number] - [id number] Implanted:Qty : 1 on 02/20/2016 by Lincoln Garces MD at OR [facility] Left: Eye BAUSCH & LOMB 08/04/2020 [id number] / [id number] / [id number] Lens Intraoc 15.5 - [id number] - [id number] Implanted:Qty : 1 on 03/09/2016 by Lincoln Garces MD at OR [facility] Right: Eye BAUSCH & LOMB 12/04/2017 [id number] / [id number] / documented as of this encounter Procedures Procedure Name Priority Date/Time Associated Diagnosis Comments DIFFERENTIAL, AUTOMATED Routine 10/28/2023 1:16 PM EDT Encounter for long-term (current) use of medications COMPREHENSIVE METABOLIC PANEL Routine 10/28/2023 1:16 PM EDT Encounter for long-term (current) use of medications CBC Routine 10/28/2023 1:16 PM EDT Encounter for long-term (current) use of medications CBC Routine 10/28/2023 1:16 PM EDT Encounter for long-term (current) use of medications DIFFERENTIAL, TECHNOLOGIST REVIEW Routine 10/28/2023 1:16 PM EDT Encounter for long-term (current) use of medications documented in this encounter Results * (ABNORMAL) DIFFERENTIAL, TECHNOLOGIST REVIEW (10/28/2023 1:16 PM EDT) WBC 11.34(H) 4.00 - 10.80 K/uL 10/28/2023 3:55 PM EDT [facility] 56-02 Neutrophils % 77.0(H) 40.0 - 75.0 % 10/28/2023 3:55 PM EDT [facility] 56- Lymphocytes % 14.0(L) 18.0 - 42.0 % 10/28/2023 3:55 PM EDT [facility] 56- Monocytes % 6.0 1.0 - 11.0 % 10/28/2023 3:55 PM EDT [facility] 56- Eosinophils % 1.0 0.0 - 6.0 % 10/28/2023 3:55 PM EDT [facility] 56- Metamyelocytes % 2.0(H) <=0.0 % 10/28/19 3:55 PM EDT [facility] 56-02 Absolute Neutrophils 8.73(H) 1.80 - 7.70 K/uL 10/28/2023 3:55 PM EDT [facility] 56- Absolute Lymphocytes 1.59 1.00 - 4.80 K/uL 10/28/2023 3:55 PM EDT [facility] 56-02 Absolute Monocytes 0.68 0.00 - 1.10 K/uL 10/28/2023 3:55 PM EDT [facility] 56-02 Absolute Eosinophils 0.11 0.00 - 0.70 K/uL 10/28/2023 3:55 PM EDT [facility] 56-02 Absolute Metamyelocytes 0.23(H) <=0.00 K/uL 10/28/2023 3:55 PM EDT [facility] 56-02 nRBCs 10/28/2023 3:55 PM EDT [facility] 56 Blood Venous blood specimen / Unknown Central Line / Unknown 10/28/2023 1:16 PM EDT 10/28/2023 1:56 PM EDT [facility] 56 [address] [place] [address] * DIFFERENTIAL, AUTOMATED (10/28/2023 1:16 PM EDT) Blood Venous blood specimen / Unknown Central Line / Unknown 10/28/2023 1:16 PM EDT 10/28/2023 1:56 PM EDT Radha Louie [facility] LAB BLOOD ORDERAB LES [facility] [address] [place] [address] * (ABNORMAL) CBC (10/28/2023 1:16 PM EDT) WBC 11.34(H) 4.00 - 10.80 K/uL 10/28/2023 3:55 PM EDT [facility] 56 RBC 3.75 3.85 - 5.15 M/uL 10/28/2023 3:55 PM EDT [facility] 56 HGB 12.3 12.0 - 15.3 g/dL 10/28/2023 3:55 PM EDT [facility] 56 HCT 37.5 36.0 - 45.2 % 10/28/2023 3:55 PM EDT [facility] 56 MCV 100.0 81.5 - 97.5 fL 10/28/2023 3:55 PM EDT [facility] 56 MCH 32.8 27.0 - 34.0 pg 10/28/2023 3:55 PM EDT [facility] 56 MCHC 32.8 32.0 - 36.0 g/dL 10/28/2023 3:55 PM EDT [facility] 56 RDW 15.4 11.5 - 15.5 % 10/28/2023 3:55 PM EDT [facility] 56 PLT 342 140 - 400 K/uL 10/28/2023 3:55 PM EDT [facility] 56 MPV 10.2 6.6 - 11.1 fL 10/28/2023 3:55 PM EDT [facility] 56 Blood Venous blood specimen / Unknown Central Line / Unknown 10/28/2023 1:16 PM EDT 10/28/2023 1:56 PM EDT Radha Louie [facility] LAB BLOOD ORDERAB LES [address] [place], [place] [phone] * (ABNORMAL) COMPREHENSIVE METABOLIC PANEL (10/28/2023 1:16 PM EDT) BUN 18 6 - 20 mg/dL 10/28/2023 2:17 PM EDT [address] Creatinine 0.9 0.5 - 1.0 mg/dL 10/28/2023 2:17 PM EDT [address] Estimated Glomerular Filtration Rate 73 >=60 mL/min 10/28/2023 2:17 PM EDT [facility] 56 Comment:eGFR is calculated b ased on the CKD-EPI 2020 equation. Sodium 140 135 - 146 mmol/L 10/28/2023 2:17 PM EDT [facility] 56 Potassium 4.3 3.5 - 5.1 mmol/L 10/28/2023 2:17 PM EDT [facility] 56 Chloride 104 98 - 107 mmol/L 10/28/2023 2:17 PM EDT [facility] 56 CO2 21(L) 22 - 32 mmol/L 10/28/2023 2:17 PM EDT [facility] 56 Anion Gap 15 7 - 15 mmol/L 10/28/2023 2:17 PM EDT [facility] 56 Glucose 171(H) 70 - 120 mg/dL 10/28/2023 2:17 PM EDT [facility] 56 Albumin 3.9 3.8 - 5.0 g/dL 10/28/2023 2:17 PM EDT [facility] 56 AST 14 10 - 35 U/L 10/28/2023 2:17 PM EDT [facility] 56 Alkaline Phosphatase 95 35 - 130 U/L 10/28/2023 2:17 PM EDT [facility] 56 Bilirubin, Total 0.3 <=1.2 mg/dL 10/28/2023 2:17 PM EDT [facility] 56 Calcium 9.4 8.4 - 10.2 mg/dL 10/28/2023 2:17 PM EDT [address] Protein 6.8 6.0 - 8.3 g/dL 10/28/2023 2:17 PM EDT [address] ALT 15 10 - 35 U/L 10/28/2023 2:17 PM EDT [facility] 56 Blood Venous blood specimen / Unknown Central Line / Unknown 10/28/2023 1:16 PM EDT 10/28/2023 1:56 PM EDT Radha Blanca Jacy [facility] LAB BLOOD ORDERAB LES [place] [address] [place] [address] documented in this encounter Visit Diagnoses Diagnosis History of breast cancer- Primary Personal history of malignant neoplasm of breast Malignant neoplasm of overlapping sites of both breasts in female, estrogen receptor positive (HCC) Encounter for long-term (current) use of medications Encounter for long-term (current) use of other medications Encounter for adjustment and management of vascular access device documented in this encounter Administered Medications Inactive Administered Medications - up to 3 most recent administrations Medication Order MAR Action Action Date Dose Rate Site hEParin 100 UNIT/ML Lock Flush inj 500 Units 500 Units (5 mL), IV Lock, PRN Other, IV Flush, Starting on Tue10/28/23 at 1302, Until Tue10/28/23 at 1926, For 24 hours, Do not flush if lock, PICC, or central line not in place; IV infusing or unable to flush. Given 10/28/2023 1:25 PM EDT 500 Units sodium chloride 0.9 % flush central line 10 mL 10 mL, IV Push, PRN Other, IV Flush, Starting on Tue10/28/23 at 1302, Until Tue10/28/23 at 1926, For 24 hours, Do not flush if lock, PICC, or central line not in place; IV infusing or unable to flush. Given 10/28/2023 1:25 PM EDT 20 mL documented in this encounter Advance Directives [...] and were consensually agreed upon. Care Teams Transportation Engineer Relationship Specialty Start Date End Date Landon Quiles DO [address] [place] [address] PCP - General Family Medicine 03/19/19 documented as of this encounter
--- OUTSIDE RECORDS SUMMARY | 2023-12-25 20:06 | External Medical Summary | Summary of Care ---
Author Name Unknown Organization [facility] Address [address] [place] [address] Phone [phone] Care Team Providers Care Billing And Accounting Staff Assistant Name Role Phone Sylvester Quiles DO Primary Care Provider Reason for Visit * Reason Comments Medication Refill Encounter Details Date Type Department Care Team (Late st Contact Info) Description 10/27/2023 Refill Family Practice [facility] [address] [place] [address] Sylvester Quiles DO [address] [place] [address] Allergies Active Allergy Reactions Criticality Noted Date [...] as of this encounter (statuses as of 10/29/2023) Medications Medication Sig Dispensed Refills Start Date [...] Gel Apply a thin ribbon to toothbrush. [place] twice daily in place of normal toothpaste [...] 90 Tablet 3 3 Active Nystatin-Triamcin olone 522440-5.1 UNIT/GM-% External Cream (Mycolog)Indicati ons:Tinea cruris APPLY [...] 3 01/01/20 24 Active GNP UltiCare Pen [place] 32G X 4 MM (Insulin Pen Needle) [...] goal of less than 8.0% ([facility]) Use as directed. 6 Each 3 4 Active Amoxicillin 500 MG Oral Capsule (Amoxil) take 1 capsule (500 mg) by oral route 2 times per day. Start this 2 days before tooth extraction. 14 Capsule 4 Active Additional Information Patient not taking.Reported on 08/22/2023 BD Extractor Puller Tray 27G X 1/2" 1 ML Kit [...] Release (Isoptin SR)Indications:PA T (paroxysmal atrial tachycardia) ([facility]) TAKE 1 TABLET BY MOUTH [...] 360 Tablet 3 4 10/29/19 25 Active metFORMIN HCl ER 500 MG Oral Tablet Extended Release 24 Hour (Glucophage XR) TAKE 4 TABLETS BY MOUTH DAILY WITH DINNER. 360 Tablet 3 3 10/27/19 24 Discontin ued(Refil l) documented as of this encounter (statuses as of 10/29/2023) Active Problems Problem Noted Date Diagnosed Date [...] as of this encounter (statuses as of 10/29/2023) Resolved Problems Problem Noted Date Diagnosed Date [...] as of this encounter (statuses as of 10/29/2023) Immunizations Name Administration Dates Next Due COVID-19 mRNA, LNP-s, No Pre serve, 2-Dose Series (K[employer]) 12/18/2020,06/20/2020,05/30/2020 COVID-19, LNP-s, No Preserve , Marshal-sucrose, [...] encounter Miscellaneous Notes * Telephone Encounter - Robbie Bird [facility] - 10/29/2023 11:10 AM EDT Signed Prescriptions: Disp Refills metFORMIN HCl ER 500 MG Oral Tablet Extend*360 Ta*3 Sig: TAKE 4 TABLETS BY MOUTH DAILY WITH DINNER.Authorizing Provider: SYLVESTER QUILES User: ROBBIE BIRD documented in this encounter Plan of Treatment Upcoming Encounters Date Type Department Care Team (Late st Contact Info) Description 11/04/2023 1:30 PM EDT Office Visit Cardiology, [address] [place] [phone] Catalina Schafer CRNP [address] [place] [address], [place] [address] 11/16/2023 11:45 AM EDT Office Visit Urology, [facility] 132 [facility] [place] [address] Faustino Cárdenas MD [address] [place] [address] 11/30/2023 1:00 PM EDT Office Visit Hematology/Oncology [facility] 200 [facility] [place] [phone] Daniella Mccord CRNP [address] [facility] [address] 11/30/2023 1:30 PM EDT Nurse Only Hematology/Oncology Treatment, [place] 200 [facility], [place] [phone] Sarai, Chair 3 Hem Onc [address] [place] [address] 12/07/2023 1:00 PM EDT Office Visit Pharmacy, [facility] 200 [facility] [place] [address] Pharmacist2, [facility] [address] [facility] [place] [address] 12/07/2023 1:40 PM EDT Anticoagulation Pharmacy, [facility] [address] [facility] [place] [address] Pharmacist2, [facility] [address] [facility] [place] [address] 12/27/2023 3:30 PM EDT Office Visit Gastroenterology, [facility] 132 [facility] [place] [address] Franchesca Almaraz CRNP 132 [facility] [place] [address] 01/10/2024 1:00 PM EST Office Visit [facility] [address] [place] [address] Sylvester Quiles, DO [address] [place] [address] 05/11/2024 1:40 PM EST Office Visit [facility] [address] [place] [address] Jackeline Diaz CRNP [address] [place] [address] 09/17/2024 11:40 AM EDT Office Visit Sleep Disorders Ctr [facility] [address] [place] [phone] Bernadette Zuniga, DO [address] [place] [address] Health Maintenance Due Date Last Done Comments [...] this encounter Medical Devices Implanted Type Area Certified Income Tax Preparer Device Identifier Shelf Expiration Date Model / Serial / Lot Graft Flex Hd 6 X 16cm [id number] - [id number] Implanted:Qty : 1 on 09/22/2010 at [place] [facility] [place] Tissue - Human Left: Breast MUSCULOSKELETAL TRANSPLANT FND 04/28/2013 [id number] / [id number] / Graft Flex Hd 6 X 16cm [id number] - [id number] Implanted:Qty : 1 on 09/22/2010 at [place] [facility] [place] Tissue - Human Right: Chest MUSCULOSKELETAL TRANSPLANT FND 04/28/2013 [id number] / [id number] / Mediport Pwr Isp 8fr [id number] - [id number] Implanted:Qty : 1 on 09/22/2010 at [place] [facility] [place] Right: Chest CR BARD : ACCESS SYSTEMS 07/13/2012 [id number] / / [id number] Breast Implant 354-2515 Saline - [id number] Implanted:Qty : 1 on 09/22/2010 at [place] [facility] [place] Right: Breast MENTOR EVA 12/13/2013 [id number] / [id number] Breast Implant 354-2515 Saline - [id number] Implanted:Qty : 1 on 09/22/2010 at [place] [facility] [place] Left: Breast MENTOR EVA 07/13/2014 354-2515 / [id number] Lens Intraoc 16.5 - [id number] - [id number] Implanted:Qty : 1 on 02/20/2016 by Lincoln Garces MD at OR [facility] Left: Eye BAUSCH & LOMB 08/04/2020 [id number] / [id number] Lens Intraoc 15.5 - [id number] - [id number] Implanted:Qty : 1 on 03/09/2016 by Lincoln Garces MD at OR [facility] Right: Eye BAUSCH & LOMB 12/04/2017 [id number] / [id number] / documented as of this encounter Advance [...] and were consensually agreed upon. Care Teams Billing And Accounting Staff Assistant Relationship Specialty Start Date End Date Sylvester Quiles DO [address] [place] [address] PCP - General Family Medicine 03/19/19 documented as of this encounter
--- OUTSIDE RECORDS SUMMARY | 2023-12-25 20:06 | External Medical Summary | Summary of Care ---
Author Name Unknown Organization [facility] Address [address] [place] [address] Phone [phone] Care Team Providers Care Senior Administrative Services Officer Name Role Phone Landon Quiles Primary Care Provider Reason for Visit * Reason Onset Date Comments Endoscopy Recall 11/10/2023 Encounter Details Date Type Department Care Team (Late st Contact Info) Description 11/10/2023 Telephone Gastroenterology, [facility] [address] [facility] [place] [address] Laina Alaniz MD [address] [place] [address] [place] [address] Endoscopy Recall Allergies Active Allergy Reactions [...] as of this encounter (statuses as of 11/10/2023) Medications Medication Sig Dispensed Refills Start Date [...] Gel Apply a thin ribbon to toothbrush. [place] twice daily in place of normal toothpaste [...] 90 Tablet 3 3 Active Nystatin-Triamcino lone 364198-9.1 UNIT/GM-% External Cream (Mycolog)Indicatio ns:Tinea cruris APPLY [...] 3 01/01/20 24 Active GNP UltiCare Pen [place] 32G X 4 MM (Insulin Pen Needle) [...] hemoglobin A1c goal of less than 8.0% ([facility]) Use as directed. 6 Each 3 4 Active Amoxicillin 500 MG Oral Capsule (Amoxil) take 1 capsule (500 mg) by oral route 2 times per day. Start this 2 days before tooth extraction. 14 Capsule 4 Active Additional Information Patient not taking.Reported on 08/22/2023 BD Space Physicist Tray 27G X 1/2" 1 ML Kit [...] as of this encounter (statuses as of 11/10/2023) Active Problems Problem Noted Date Diagnosed Date [...] as of this encounter (statuses as of 11/10/2023) Resolved Problems Problem Noted Date Diagnosed Date [...] as of this encounter (statuses as of 11/10/2023) Immunizations Name Administration Dates Next Due COVID-19 mRNA, LNP-s, No Pre serve, 2-Dose Series (YEOXIN VMall) 12/18/2020,06/20/2020,05/30/2020 COVID-19, LNP-s, No Preserve , Marshal-sucrose, Ages 12+ (Pfizer) 06/25/2021 Covid-19, Mrna, Lnp-s, Pf, B ivalent, 30 Mcg, IM, 12 yrs and above (YEOXIN VMall) 12/31/2021 H1N1 2009 Influenza, IM 02/24/2009 Hepatitis [...] 11/16/2023 11:45 AM EDT Office Visit Urology, [facility] 132 [facility] [place] [address] Faustino Cárdenas MD [address] [place] [address] 11/30/2023 1:00 PM EDT Office Visit Hematology/Oncology [facility] [address] Daniella Mccord CRNP 400 [facility] [place] [address] 11/30/2023 1:30 PM EDT Nurse Only Hematology/Oncology Treatment, [place] [facility] [phone] Sarai, Chair 3 Hem Onc [facility] 200 [facility] [place], [place] [address] 12/07/2023 1:00 PM EDT Office Visit Pharmacy, [facility] [address] [place] [address] Pharmacist2, [facility] [address] [place] [address] 12/07/2023 1:40 PM EDT Anticoagulation Pharmacy, [facility] 200 [facility] [place] [address] Pharmacist2, [facility] 200 [facility] [place] [address] 12/27/2023 3:30 PM EDT Office Visit Gastroenterology, [facility] [address] [place] [address] Franchesca Almaraz CRNP [address] [place] [address] 01/10/2024 1:00 PM EST Office Visit Family Practice [facility] [address] [place] [address] Landon Quiles DO [address] [place] [address] 05/04/2024 2:30 PM EST Office Visit Cardiology, [facility] [place] [address] Catalina Schafer CRNP [address] [place] [address] 05/11/2024 1:40 PM EST Office Visit Family Practice [facility] [address] [place] [address] Jackeline Diaz CRNP [address] [place] [address] 09/17/2024 11:40 AM EDT Office Visit Sleep Disorders Ctr [facility] [address] [place] [address] Bernadette Zuniga, [address] [place] [address] Health Maintenance Due Date Last Done Comments [...] this encounter Medical Devices Implanted Type Area Key Worker Device Identifier Shelf Expiration Date Model / Serial / Lot Graft Flex Hd 6 X 16cm [id number] - [id number] Implanted:Q[place] : [place] [facility] [place] Left: Breast MUSCULOSKELETAL TRANSPLANT FND 04/28/2013 [id number] / [id number] / Graft Flex Hd 6 X 16cm [id number] - [id number] Implanted:Qty : 1 on 09/22/2010 [place] [facility] [place] - Human Right: Chest MUSCULOSKELETAL TRANSPLANT FND 04/28/2013 [id number] / [id number] / Mediport Pwr Isp 8fr [id number] - [id number] Implanted:Qty : 1 on 09/22/2010 [place] [facility] [place]: Chest CR BARD : ACCESS SYSTEMS 07/13/2012 [id number] / / [id number] Breast Implant 354-2065 Saline - [id number] Implanted:Qty : 1 on 09/22/2010 [place] [facility] [place]: Breast MENTOR EVA 12/13/2013 354-2515 / [id number] Breast Implant 354-2515 Saline - [id number] Implanted:Qty : 1 on 09/22/2010 [place] [facility] [place]: Breast MENTOR EVA 07/13/2014 354-2515 / [id number] / [id number] Lens Intraoc 16.5 - [id number] - [id number] Implanted:Qty : 1 on 02/20/2016 by Lincoln Garces MD at OR [facility] Left: Eye BAUSCH & LOMB 08/04/2020 [id number] / [id number] / [id number] Lens Intraoc 15.5 - [id number] - [id number] Implanted:Qty : 1 on 03/09/2016 by Lincoln Garces MD at OR [facility] Right: Eye BAUSCH & LOMB 12/04/2017 [id number] / [id number] / documented as of this encounter Advance [...] were consensually agreed upon. Care Teams Senior Administrative Services Officer Relationship Specialty Start Date End Date Landon Quiles DO [address] [place] [address] PCP - General Family Medicine 03/19/19 documented as of this encounter
--- OUTSIDE RECORDS SUMMARY | 2023-12-25 20:06 | External Medical Summary | Summary of Care ---
Author Name Unknown Organization [facility] Address [address] [place] [address] Phone [phone] Care Team Providers Care Supervisor Patching Name Role Phone Landon Quiles DO Primary Care Provider Reason for Visit * Reason Onset Date Comments Home Health 10/25/2023 Encounter Details Date Type Department Care Team (Late st Contact Info) Description 10/25/2023 Telephone Family Practice [facility] [address] [place] [address] Landon Quiles DO [address] [place] [...] as of this encounter (statuses as of 10/31/2023) Medications Medication Sig Dispensed Refills Start Date [...] Gel Apply a thin ribbon to toothbrush. [place] twice daily in place of normal toothpaste [...] 90 Tablet 3 3 Active Nystatin-Triamcin olone 302147-9.1 UNIT/GM-% External Cream (Mycolog)Indicati ons:Tinea cruris APPLY [...] 3 01/01/20 24 Active GNP UltiCare Pen [place] 32G X 4 MM (Insulin Pen Needle) [...] hemoglobin A1c goal of less than 8.0% ([facility]) Use as directed. 6 Each 3 4 Active Amoxicillin 500 MG Oral Capsule (Amoxil) take 1 capsule (500 mg) by oral route 2 times per day. Start this 2 days before tooth extraction. 14 Capsule 4 Active Additional Information Patient not taking.Reported on 08/22/2023 BD Pneumatic Tester Mechanic Tray 27G X 1/2" 1 ML [...] Release (Isoptin SR)Indications:PA T (paroxysmal atrial tachycardia) ([facility]) TAKE 1 TABLET BY MOUTH [...] as of this encounter (statuses as of 10/31/2023) Active Problems Problem Noted Date Diagnosed Date [...] as of this encounter (statuses as of 10/31/2023) Resolved Problems Problem Noted Date Diagnosed Date [...] as of this encounter (statuses as of 10/31/2023) Immunizations Name Administration Dates Next Due COVID-19 mRNA, LNP-s, No Pre serve, 2-Dose Series ([place]) 12/18/2020,06/20/2020,05/30/2020 COVID-19, LNP-s, No Preserve , Marshal-sucrose, [...] Telephone Encounter - Marilyn Bolanos LPN - 10/31/2023 8:33 AM EDT Called and spoke with Kylah. Relayed information from Kb. Kylah voiced understanding. * Telephone Encounter - Landon Quiles DO - 10/26/2023 12:38 PM EDT Ok to continue med * Telephone Encounter - Elizabeth Gant LPN - 10/25/2023 2:46 PM EDT Kylah from [facility] calling Medication Interactions Noted - Per Home Health policy PCP needs to be made aware of the following: There is an interaction between lexapro and fluticasone salmeterol The interaction is is anphlasi Please advise if patient should continue the current medications or would you like to make any changes. Call Kylah at [phone] she will relay any concerns to pt. documented in this encounter Plan of Treatment Upcoming Encounters Date Type Department Care Team (Late st Contact Info) Description 11/04/2023 1:30 PM EDT Office Visit Cardiology, [facility] 132 [facility] [place] [address] Catalina Schafer CRNP [address] [place] [address] 11/16/2023 11:45 AM EDT Office Visit Urology, [facility] 132 [facility] [place] [address] Faustino Cárdenas MD 27 [place] [address] 11/30/2023 1:00 PM EDT Office Visit Hematology/Oncology [facility] [address] [facility] [place] [phone] Daniella Mccord CRNP [address] [place] [address] 11/30/2023 1:30 PM EDT Nurse Only Hematology/Oncology Treatment, [place] [facility] [phone] Sarai, Chair 3 Hem Onc [address] [place] [address] 12/07/2023 1:00 PM EDT Office Visit Pharmacy, [facility] [place] [address] [facility] [place] [address] Pharmacist2, [facility] [address] [place] [address] 12/07/2023 1:40 PM EDT Anticoagulation Pharmacy, [facility] [address] [facility] [place] [address] Pharmacist2, [facility] [address] [facility] [place], [place] [address] 12/27/2023 3:30 PM EDT Office Visit Gastroenterology, [facility] [address] [place] [address] Franchesca Almaraz CRNP [address] [place] [address] 01/10/2024 1:00 PM EST Office Visit Family Practice [facility] 132 [place] [address] Landon Quiles, [address] [place] [address] 05/11/2024 1:40 PM EST Office Visit Family Practice [facility] 132 [place] [address] Jackeline Diaz CRNP [address] [place] [address] 09/17/2024 11:40 AM EDT Office Visit Sleep Disorders Ctr [facility] [address] [place] [phone] Bernadette Zuniga, DO [address] [place] [address] Health Maintenance Due Date Last Done Comments [...] this encounter Medical Devices Implanted Type Area Auto Glass Worker Device Identifier Shelf Expiration Date Model / Serial / Lot Graft Flex Hd 6 X 16cm [id number] - [id number] Implanted:Qty : 1 on 09/22/2010 at [place] [facility] [place] Tissue - Human Left: Breast MUSCULOSKELETAL TRANSPLANT FND 04/28/2013 [id number] / [id number] / Graft Flex Hd 6 X 16cm [id number] - [id number] Implanted:Qty : 1 on 09/22/2010 at OR [facility] [place] Tissue - Human Right: Chest MUSCULOSKELETAL TRANSPLANT FND 04/28/2013 [id number] / [id number] / Mediport Pwr Isp 8fr [id number] - [id number] Implanted:Qty : 1 on 09/22/2010 at OR [facility] [place] Right: Chest CR BARD : ACCESS SYSTEMS 07/13/2012 [id number] / / [id number] Breast Implant 354-2515 Saline - [id number] Implanted:Qty : 1 on 09/22/2010 at OR [facility] [place] Right: Breast MENTOR EVA 12/13/2013 354-2515 / [id number] Breast Implant 354-2515 Saline - [id number] Implanted:Qty : 1 on 09/22/2010 at [place] [facility] [place] Left: Breast MENTOR EVA 07/13/2014 354-2515 / [id number] / [id number] Lens Intraoc 16.5 - [id number] - [id number] Implanted:Qty : 1 on 02/20/2016 by Lincoln Garces MD at [place] [facility] Left: Eye BAUSCH & LOMB 08/04/2020 [id number] / [id number] / [id number] Lens Intraoc 15.5 - [id number] - [id number] Implanted:Qty : 1 on 03/09/2016 by Lincoln Garces MD at [place] [facility] Right: Eye BAUSCH & LOMB 12/04/2017 [id number] / [id number] / documented as of this encounter Advance [...] and were consensually agreed upon. Care Teams Supervisor Patching Relationship Specialty Start Date End Date Landon Quiles DO 132 [place] [address] PCP - General Family Medicine 03/19/19 documented as of this encounter
--- OUTSIDE RECORDS SUMMARY | 2023-12-25 20:07 | External Medical Summary | Summary of Care ---
Author Name Unknown Organization [facility] Address [address] [place] [address] Phone [phone] Care Team Providers Care Process Control Specialist Name Role Phone Landon Quiles DO Primary Care Provider Reason for Referral * Evaluate & Treat - Unlimited Visits (Within 10 days (routine)) - Pending Review Specialty Diagnoses / Procedures Referred By Paul harrell Referred To Contact HOME CARE / Home Care Diagnoses Cervical myelopathy (HCC) Landon Quiles DO [address] [place] [address] Referral ID Status Reason Start Date Expiration Date Visits Requested Visits Authorized [id number] Pending Review Specialty Services Required 10/27/2023 999 999 Question Answer Referral Priority Within 10 days (routine) Where should this appointment be scheduled? External Comments Documentation of Twcx-no-Gvcw Encounter Addendum Patient Name: Barbie Davidson I certify that this patient is under my care and that I, or a nurse practitioner or physician's certified teacher assistant working with me, had a swrr-rz-mndh encounter that meets the physician qvov-yz-cyum encounter requirements with this patient on: 10/24/23 The encounter with the patient was in whole, or in part, for the following medical condition, which is the primary reason for home health care (List medical condition): Gait dysfunction I certify that, based on my findings, the following services are medically necessary home health services: Physical Therapy To provide the following care/treatments: (All hospitalists not following the patient after discharge should complete this section): [facility] Home Health Primary Care Physician to follow home care plan of care after discharge: Landon Quiles My clinical findings support the need for the above services because: post op cervical spinal stenosis with mylopathy Further, I certify that my clinical findings support that this patient is homebound (i.e. Absences from home require considerable and taxing effort and are for medical reasons or jew services or infrequently or of short duration when for other reason) because: Pt is post op, obese, asthma Physician Signature: Date of Signature: Physician Printed Name: Amy Hwang RN Reason for Visit * Reason Onset Date Comments Home Health 10/24/2023 Encounter Details Date Type Department Care Team (Late st Contact Info) Description 10/24/2023 Telephone Family Practice [facility] [place] [address] Landon Quiles DO 132 [facility] [place] [address] Home Health Allergies Active Allergy Reactions Criticality [...] as of this encounter (statuses as of 10/27/2023) Medications Medication Sig Dispensed Refills Start Date [...] Gel Apply a thin ribbon to toothbrush. [place] twice daily in place of normal toothpaste [...] 90 Tablet 3 3 Active Nystatin-Triamcino lone 203501-7.1 UNIT/GM-% External Cream (Mycolog)Indicatio ns:Tinea cruris APPLY [...] 3 01/01/20 24 Active GNP UltiCare Pen [place] 32G X 4 MM (Insulin Pen Needle) [...] hemoglobin A1c goal of less than 8.0% ([facility]) Use as directed. 6 Each 3 4 Active Amoxicillin 500 MG Oral Capsule (Amoxil) take 1 capsule (500 mg) by oral route 2 times per day. Start this 2 days before tooth extraction. 14 Capsule 4 Active Additional Information Patient not taking.Reported on 08/22/2023 BD Telesales Agent Tray 27G X 1/2" 1 ML Kit [...] Extended Release (Isoptin SR)Indications:PAT (paroxysmal atrial tachycardia) ([facility]) TAKE 1 TABLET BY MOUTH 3 TIMES [...] area as needed for Other. 4 Active documented as of this encounter (statuses as of 10/27/2023) Active Problems Problem Noted Date Diagnosed Date [...] as of this encounter (statuses as of 10/27/2023) Resolved Problems Problem Noted Date Diagnosed Date [...] as of this encounter (statuses as of 10/27/2023) Immunizations Name Administration Dates Next Due COVID-19 mRNA, LNP-s, No Pre serve, 2-Dose Series ([employer]) 12/18/2020,06/20/2020,05/30/2020 COVID-19, LNP-s, No Preserve , Marshal-sucrose, [...] encounter Miscellaneous Notes * Telephone Encounter - Candace Dugan LPN - 10/24/2023 12:14 PM EDT PT/OT/ST Eval Start of Care/Continuation Giselle, Calling from: [facility] PT Plan of care: 2 times per week for 1 weeks: Then 1 times a week for 4 weeks Focusing on: endurance, strength, stairs, transfers Concerns: no None Symptoms: none Vitals: T 97.3 P 90 RR 18 BP 134/70 SP O2 97 room air Lung sounds n/a Weight n/a Blood sugar has not been able to check. Unable to hook phone up with [employer] Narrative: Lex calling from [facility]. Asking for orders after evaluation done today. FYI: Patient having problems with freestyle dewey. Unable to connect to phone. Was going to the pharmacyto get another sensor to try. Call back Lex with any advice or orders at [phone] Please fax new orders to [facility] Home Health Advised that additional visit orders will be signed by Dr. Quiles and to fax to the office for signature documented in this encounter Plan of Treatment Upcoming Encounters Date Type Department Care Team (Late st Contact Info) Description 10/27/2023 12:45 PM EDT Nurse Only Hematology/Oncology Treatment, [address] [place] [address] Sarai, Chair 10 Hem Onc [address] [place] [address] 10/28/2023 1:00 PM EDT Anticoagulation Pharmacy, [address] [place] [address] Pharmacist2, [facility] [address] [place] [address] 11/04/2023 1:30 PM EDT Office Visit Cardiology, [facility] [address] [place] [address] Catalina Schafer CRNP 400 [facility] [place] [address] 11/16/2023 11:45 AM EDT Office Visit Urology, [facility] 132 [place] [address] Faustino Cárdenas MD 27 [place] [address] 11/25/2023 1:00 PM EDT Immunization/Injection Hematology/[address]cology [address], [address] [phone] Sarai, Chair 10 Hem Onc [address] [place] [address] 11/30/2023 1:00 PM EDT Office Visit Hematology/Oncology [facility] 200 [facility] [place] [address] Daniella Mccord CRNP 400 [facility] [place] [address] 12/07/2023 1:00 PM EDT Office Visit Pharmacy, [facility] 200 [facility] [place] [address] Pharmacist2, [facility] 200 [facility] [place] [address] 12/07/2023 1:40 PM EDT Anticoagulation Pharmacy, [facility] 200 [facility] [place] [address] Pharmacist2, [facility] 200 [facility] [place] [address] 12/27/2023 3:30 PM EDT Office Visit Gastroenterology, [facility] [address] [place] [address] Franchesca Almaraz CRNP [address] [place] [address] 01/10/2024 1:00 PM EST Office Visit [facility] [address] [place] [address] Landon Quiles DO [address] [place] [address] 05/11/2024 1:40 PM EST Office Visit [facility] [address] [place] [address] Jackeline Diaz CRNP [address] [place] [address] 09/17/2024 11:40 AM EDT Office Visit Sleep Disorders Ctr [facility] [address] [place] [address] Bernadette Zuniga, [address] [place] [address] Scheduled Referrals Name Type Priority Associated Diagnoses Orde r Schedule HOME HEALTH REFERRAL OP Referral Within 10 days (routine) Cervical myelopathy (HCC) Ordered: 10/27/2023 Health Maintenance Due Date Last Done Comments [...] this encounter Medical Devices Implanted Type Area Billing Auditor Device Identifier Shelf Expiration Date Model / Serial / Lot Graft Flex Hd 6 X 16cm [id number] - [id number] [place]planted:Q[place] : 1 [place] [facility] [place] Left: Breast MUSCULOSKELETAL TRANSPLANT FND 04/28/2013 [id number] / [id number] / Graft Flex Hd 6 X 16cm [id number] - [id number] Implanted:Qty : 1 on 09/22/2010 [place] [facility] [place] - Human Right: Chest MUSCULOSKELETAL TRANSPLANT FND 04/28/2013 [id number] / [id number] / Mediport Pwr Isp 8fr [id number] - [id number] Implanted:Qty : 1 [place] 09/22/2010 [place] [facility] [place]: Chest CR BARD : ACCESS SYSTEMS 07/13/2012 [id number] / / [id number] Breast Implant 354-8335 Saline - [id number] Implanted:Qty : 1 on 09/22/2010 [place] [facility] [place] Right: Breast MENTOR EVA 12/13/2013 [id number] / [id number] Breast Implant 354-2515 Saline - [id number] Implanted:Qty : 1 on 09/22/2010 [place] [facility] [place] Left: Breast MENTOR EVA 07/13/2014 354-2515 / [id number] Lens Intraoc 16.5 - [id number] - [id number] Implanted:Qty : 1 on 02/20/2016 by Lincoln Garces MD at OR [facility] Left: Eye BAUSCH & LOMB 08/04/2020 [id number] / [id number] Lens Intraoc 15.5 - [id number] - [id number] Implanted:Qty : 1 on 03/09/2016 by Lincoln Garces MD at OR [facility] Right: Eye BAUSCH & LOMB 12/04/2017 [id number] / [id number] / documented as of this encounter Visit Diagnoses Diagnosis Cervical myelopathy (HCC)- Primary Cervical spondylosis with myelopathy documented in this encounter Advance Directives * [...] and were consensually agreed upon. Care Teams Process Control Specialist Relationship Specialty Start Date End Date Landon Quiles DO [address] [place] [address] PCP - General Family Medicine 03/19/19 documented as of this encounter
--- OUTSIDE RECORDS SUMMARY | 2023-12-25 20:07 | External Medical Summary | Summary of Care ---
Author Name Unknown Organization [facility] Address [address] [place] [address] Phone [phone] Care Team Providers Care Pest Control Worker Name Role Phone Landon Quilesray Primary Care Provider Reason for Visit * Reason Comments Procedure Port flush/labs from port Encounter Details Date Type Department Care Team (Late st Contact Info) Description 10/28/2023 12:45 PM EDT Nurse Only Hematology/Oncology Treatment, [address] [phone] Park, Chair 10 Hem On[address] [address] Procedure (Port flush/labs from port) [...] as of this encounter (statuses as of 10/28/2023) Medications Medication Sig Dispensed Refills Start Date [...] Gel Apply a thin ribbon to toothbrush. [place] twice daily in place of normal toothpaste [...] 90 Tablet 3 3 Active Nystatin-Triamcino lone 248805-9.1 UNIT/GM-% External Cream (Mycolog)Indicatio ns:Tinea cruris APPLY [...] 3 01/01/20 24 Active GNP UltiCare Pen [place] 32G X 4 MM (Insulin Pen Needle) [...] Information Patient not taking.Reported on 08/22/2023 BD Business Control Specialist Tray 27G X 1/2" 1 ML Kit [...] as of this encounter (statuses as of 10/28/2023) Active Problems Problem Noted Date Diagnosed Date [...] as of this encounter (statuses as of 10/28/2023) Resolved Problems Problem Noted Date Diagnosed Date [...] as of this encounter (statuses as of 10/28/2023) Immunizations Name Administration Dates Next Due COVID-19 mRNA, LNP-s, No Pre serve, 2-Dose Series (better.) 12/18/2020,06/20/2020,05/30/2020 COVID-19, LNP-s, No Preserve , Marshal-sucrose, [...] of this encounter Nursing Notes * Marietta Haley RN - 10/28/2023 3:06 PM EDT VAD [...] 11/04/2023 1:30 PM EDT Office Visit Cardiology, [facility] [address] [facility] [place] [address] Catalina Schafer CRNP 400 [facility] [place] [address] 11/16/2023 11:45 AM EDT Office Visit Urology, [facility] [place] [address] Faustino Cárdenas MD 27 [place] [address] 11/30/2023 1:00 PM EDT Office Visit Hematology/Oncology [facility] 200 [facility] [place] [phone] Daniella Mccord CRNP [facility] [place] [address] 11/30/2023 1:30 PM EDT Nurse Only Hematology/Oncology Treatment, [place] [address] [facility] [address] [place], [place] [phone] Sarai, Chair 3 Hem Onc [address] [place] [address] 12/07/2023 1:00 PM EDT Office Visit Pharmacy, [facility] [address] [facility] [place] [address] Pharmacist2, [facility] [address] [facility] [place] [address] 12/07/2023 1:40 PM EDT Anticoagulation Pharmacy, [facility] [address] [facility] [place] [address] Pharmacist2, [facility] [address] [facility] [place] [address] 12/27/2023 3:30 PM EDT Office Visit Gastroenterology, [facility] [address] [place] [address] Franchesca Almaraz CRNP [address] [place] [address] 01/10/2024 1:00 PM EST Office Visit Family Practice [facility] [address] [place] [address] Landon Quiles, [address] [place] [address] 05/11/2024 1:40 PM EST Office Visit Family Practice [facility] [address] [place] [address] Jackeline Diaz CRNP [address] [place] [address] 09/17/2024 11:40 AM EDT Office Visit Sleep Disorders Ctr [facility] [address] [place] [phone] Bernadette Zuniga DO [address] [place] [address] Pending Results Name Type Priority Associated Diagnoses Date /Time CBC WITH WBC DIFFERENTIAL Lab Routine Encounter for long-term (current) use of medications 10/28/2023 1:16 PM EDT CBC Lab Routine Encounter for long-term (current) use of medications 10/28/2023 1:16 PM EDT DIFFERENTIAL, AUTOMATED Lab Routine Encounter for long-term (current) use of medications 10/28/2023 1:16 PM EDT Health Maintenance Due Date Last Done Comments [...] this encounter Medical Devices Implanted Type Area Violin Maker Hand Device Identifier Shelf Expiration Date Model / Serial / Lot Graft Flex Hd 6 X 16cm [id number] - [id number] Implanted:Q[place] : 1 [place] 09[place]22[place] [facility] [place] Left: Breast MUSCULOSKELETAL TRANSPLANT FND 04/28/2013 [id number] / [id number] / Graft Flex Hd 6 X 16cm [id number] - [id number] Implanted:Qty : 1 on 09/22/2010 [place] [facility] [place] - Human Right: Chest MUSCULOSKELETAL TRANSPLANT FND 04/28/2013 [id number] / [id number] / Mediport Pwr Isp 8fr [id number] - [id number] Implanted:Qty : 1 on 09/22/2010 [place] [facility] [place]: Chest CR BARD : ACCESS SYSTEMS 07/13/2012 [id number] / / [id number] Breast Implant 354-2515 Saline - [id number] Implanted:Qty : 1 on 09/22/2010 [place] [facility] [place]: Breast MENTOR EVA 12/13/2013 [id number] / [id number] Breast Implant 354-2515 Saline - [id number] Implanted:Qty : 1 on 09/22/2010 [place] [facility] [place] Left: Breast MENTOR EVA 07/13/2014 354-2515 / [id number] Lens Intraoc 16.5 - [id number] - [id number] Implanted:Qty : 1 on 02/20/2016 by Lincoln Garces MD at OR [facility] Left: Eye BAUSCH & LOMB 08/04/2020 [id number] / [id number] / [id number] Lens Intraoc 15.5 - [id number] - [id number] Implanted:Qty : 1 on 03/09/2016 by Lincoln Garces MD at OR [facility] Right: Eye BAUSCH & LOMB 12/04/2017 [id number] / [id number] / documented as of this encounter Procedures Procedure Name Priority Date/Time Associated Diagnosis Comments COMPREHENSIVE METABOLIC PANEL Routine 10/28/2023 1:16 PM EDT Encounter for long-term (current) use of medications documented in this encounter Results * (ABNORMAL) COMPREHENSIVE METABOLIC PANEL (10/28/2023 1:16 PM EDT) BUN 18 6 - 20 mg/dL 10/28/2023 2:[address] Creatinine 0.9 0.5 - 1.0 mg/dL 10/28/2023 2:17 PM EDT [address] Estimated Glomerular Filtration Rate 73 >=60 mL/min 10/28/2023 2:17 PM [facility] 56 Comment:eGFR is calculated b ased on the CKD-EPI 2020 equation. Sodium 140 135 - 146 mmol/L 10/28/2023 2:17 [address] Potassium 4.3 3.5 - 5.1 mmol/L 10/28/2023 2:17 PM EDT [address] Chloride 104 98 - 107 mmol/L 10/28/2023 2:[address] CO2 21(L) 22 - 32 mmol/L 10/28/2023 2:17 PM T [address] Anion Gap 15 7 - 15 mmol/L 10/28/2023 2:[address] Glucose 171(H) 70 - 120 mg/dL 10/28/2023 2:[address] Albumin 3.9 3.8 - 5.0 g/dL 10/28/2023 2:[address] AST 14 10 - 35 U/L 10/28/2023 2:[address] Alkaline Phosphatase 95 35 - 130 U/L 10/28/2023 2:[address] Bilirubin, Total 0.3 <=1.2 mg/dL 10/28/2023 2:[address] Calcium 9.4 8.4 - 10.2 mg/dL 10/28/2023 2:[address] Protein 6.8 6.0 - 8.3 g/dL 10/28/2023 2:17 PM [facility] 56 ALT 15 10 - 35 U/L 10/28/2023 2:17 PM [facility] 56 Blood Venous blood specimen / Unknown Central Line / Unknown 10/28/2023 1:16 PM EDT 10/28/2023 1:56 PM EDT [facility] LAB BLOOD [facility]AB [facility] [address] [place] [address] documented in this encounter Visit Diagnoses Diagnosis History of breast cancer- Primary Personal history of malignant neoplasm of breast Malignant neoplasm of overlapping sites of both breasts in female, estrogen receptor positive (HCC) Encounter for long-term (current) use of medications Encounter for long-term (current) use of other medications Encounter for adjustment and management of vascular access device documented in this encounter Administered Medications Active Administered Medications - up to 3 most recent administrations Medication Order MAR Action Action Date Dose Rate Site hEParin 100 UNIT/ML Lock Flush inj 500 Units 500 Units (5 mL), IV Lock, PRN Other, IV Flush, Starting on Tue10/28/23 at 1302, Until 10/29/23 at 1301, For 24 hours, Do not flush if lock, PICC, or central line not in place; IV infusing or unable to flush. Given 10/28/2023 1:25 PM EDT 500 Units sodium chloride 0.9 % flush central line 10 mL 10 mL, IV Push, PRN Other, IV Flush, Starting on Tue10/28/23 at 1302, Until 10/29/23 at 1301, For 24 hours, Do not flush if [...] and were consensually agreed upon. Care Teams Pest Control Worker Relationship Specialty Start Date End Date Landon Quiles DO [address] [place] [address] PCP - General Family Medicine 03/19/19 documented as of this encounter
--- OUTSIDE RECORDS SUMMARY | 2023-12-25 20:07 | External Medical Summary | Summary of Care ---
Author Name Unknown Organization [facility] Address [address] [place] [address] Phone [phone] Care Team Providers Care Cnc Machine Programmer Name Role Phone Landon Quiles DO Primary Care Provider Reason for Visit * Reason Comments Hospital Follow-Up Pt here for Hosp F/U . Pt recently admitted and discharged on 10/20/2023 for Cervical Spinal Stenosis with Myelopathy. Pt here with her . Encounter Details Date Type Department Care Team (Late st Contact Info) Description 10/24/2023 11:00 AM EDT Office Visit Family [facility] [address] [place] [address] Landon Quiles, [address] [place] [address] Cervical myelopathy (HCC)*; Type 2 diabetes mellitus with hemoglobin A1c goal of less than 8.0% ([facility]); Dyslipidemia; LORE on CPAP; Moderate persistent asthma without complication; Chronic diastolic congestive heart failure (HCC); HTN, goal below 130/80; Body mass index (BMI) of 45.0 to 49.9 in adult ([facility]) Allergies Active Allergy Reactions Criticality Noted Date [...] as of this encounter (statuses as of 10/24/2023) Medications Medication Sig Dispensed Refills Start Date [...] Gel Apply a thin ribbon to toothbrush. [place] twice daily in place of normal toothpaste [...] 90 Tablet 3 3 Active Nystatin-Triamcin olone 170013-1.1 UNIT/GM-% External Cream (Mycolog)Indicati ons:Tinea cruris APPLY [...] 3 01/01/20 24 Active GNP UltiCare Pen [place] 32G X 4 MM (Insulin Pen Needle) [...] Information Patient not taking.Reported on 08/22/2023 BD Sequins Slinger Tray 27G X 1/2" 1 ML Kit [...] Release (Isoptin SR)Indications:PA T (paroxysmal atrial tachycardia) ([facility]) TAKE 1 TABLET BY MOUTH [...] area as needed for Other. 4 Active Enoxaparin Sodium 120 MG/0.8ML Injection Solution Prefilled Syringe (Lovenox)Indicati ons:History of pulmonary embolism Inject 120 mg under the skin in the morning and 120 mg before bedtime. Use as directed for bridge.. 8 mL 4 10/24/19 24 Discontin ued(Medic ation List Clean Up) documented as of this encounter (statuses as of 10/24/2023) Active Problems Problem Noted Date Diagnosed Date [...] as of this encounter (statuses as of 10/24/2023) Resolved Problems Problem Noted Date Diagnosed Date [...] as of this encounter (statuses as of 10/24/2023) Immunizations Name Administration Dates Next Due COVID-19 mRNA, LNP-s, No Pre serve, 2-Dose Series (ApplyKit) 12/18/2020,06/20/2020,05/30/2020 COVID-19, LNP-s, No Preserve , Marshal-sucrose, [...] 0 03/07/1970 - 03/07/1984 Smokeless Tobacco: Never Tobacco Cessation:Counseling Given: Not Answered Alcohol Use Standard Drinks/Week Comments No 0 [...] No 12/28/2022 Does the household have a [facility] hospitallar source of income? (Household - for ages [...] Sign Reading Time Taken Comments Blood Pressure 120/64 10/24/2023 11:02 AM EDT Pulse 91 10/24/2023 11:02 AM EDT Temperature 35.8 C (96.4 F) 10/24/2023 11:02 AM E DT Respiratory Rate 16 10/24/2023 11:02 AM EDT Oxygen Saturation 98% 10/24/2023 11:02 AM EDT Inhaled Oxygen Concentration - - Weight - - Height - - Body Mass Index - - documented in this encounter Progress Notes * Landon Quiles DO - 10/24/2023 11:10 AM EDT Images from the original note were not included. Assessment and Plan Cervical myelopathy (HCC) Post surgical now and doing well in recovery Type 2 diabetes mellitus with hemoglobin A1c goal of less than 8.0% (HCC) Stable currently Continue to monitor Labs prior to next visit Dyslipidemia LORE on CPAP stable Moderate persistent asthma without complication stable Chronic diastolic congestive heart failure (HCC) Stable currently HTN, goal below 130/80 BP stable Body mass index (BMI) of 45.0 to 49.9 in adult (HCC) stable History of Present Illness Barbie Davidson is a 67 year old female that presents for Hospital Follow-Up (Pt here for Hosp F/U. Pt recently admitted and discharged on 10/20/2023 for Cervical Spinal Stenosis with Myelopathy. Pthere with her .) Presents in f/u today from recent surgery On the neck, discharged from [facility] And has been doing very well in recovery Starting PT and OT now and will be f/u with Dr Wilkinson Physical Exam Vitals: 10/24/23 1102 Temp: 35.8 C (96.4 F) Pulse: 91 Resp: 16 SpO2: 98% BP: 120/64 Physical Exam Constitutional: Appearance: Normal appearance. HENT: Head: Normocephalic and atraumatic. Eyes: Extraocular Movements: Extraocular movements intact. Pupils: Pupils are equal, round, and reactive to light. Musculoskeletal: General: Tenderness present. No signs of injury. Neurological: General: No focal deficit present. Mental Status: She is alert and oriented to person, place, and time. Psychiatric: Mood and Affect: Mood normal. Behavior: Behavior normal. Wrap-Up Time: Total time today was 42 minutes excluding any time spent in the performance of separately billed services. documented in this encounter Nursing Notes * Manuela Reddy LPN - 10/24/2023 11:12 AM EDT The patient has been properly identified by confirmation of name and date of . Chief Complaint Patient presents with Hospital Follow-Up Pt here for Hosp F/U. Pt recently admitted and discharged on 10/20/2023 for Cervical Spinal Stenosiswith Myelopathy. Pt here with her . documented in this encounter Plan of Treatment Upcoming Encounters Date Type Department Care Team (Late st Contact Info) Description 10/24/2023 5:10 PM EDT Anticoagulation Pharmacy, [facility] 200 [facility] [place] [address] Pharmacist2, [facility] 200 [facility] [place] [address] 10/28/2023 1:00 PM EDT Anticoagulation Pharmacy, [facility] 200 [facility] [place] [address] Pharmacist2, [facility] 200 [facility] [place] [address] 10/31/2023 11:00 AM EDT Imaging Radiology [facility] 132 [facility] [place] [address] 11/01/2023 1:20 PM EDT Office Visit Rheumatology [address] [place] [address] Dayday Montana MD [address] [place] [address] [place] [address] 11/04/2023 1:30 PM EDT Office Visit Cardiology, [facility] 132 [facility] [place] [address] Catalina Schafer CRNP [address] [place] [address] [place] [address] 11/16/2023 11:45 AM EDT Office Visit Urology, [facility] 132 [facility] [place] [address] Faustino Cárdenas MD [address] [place] [address] 11/25/2023 1:00 PM EDT Immunization/Injection Hematology/Oncology Treatment, [place] [address] [facility] [address] [place], [place] [phone] [place], Chair 10 Hem Onc [facility] 200 [facility] [place] [address] 11/30/2023 1:00 PM EDT Office Visit Hematology/Oncology [facility] 200 [facility] [place] [phone] Daniella Mccord CRNP 400 [facility] [place] [address] 12/07/2023 1:00 PM EDT Office Visit Pharmacy, [facility] 200 [facility] [place] [address] Pharmacist2, [facility] 200 [facility] [place] [address] 12/07/2023 1:40 PM EDT Anticoagulation Pharmacy, [facility] [address] [facility] [place] [address] Pharmacist2, [facility] 200 [facility] [place] [address] 12/27/2023 3:30 PM EDT Office Visit Gastroenterology, [facility] [address] [place] [address] Franchesca Almaraz CRNP [address] [place] [address] 01/10/2024 1:00 PM EST Office Visit Family Practice [facility] [address] [place] [address] Landon Quiles, DO [address] [place] [address] 05/11/2024 1:40 PM EST Office Visit Family Practice [facility] [address] [place] [address] Jackeline Diaz CRNP [address] [place] [address] 09/17/2024 11:40 AM EDT Office Visit Sleep Disorders Ctr [facility] [address] [place] [phone] Bernadette Zuniga, DO [address] [place] [address] Health Maintenance Due Date Last Done Comments [...] this encounter Medical Devices Implanted Type Area Clinical Informatics Spec Device Identifier Shelf Expiration Date Model / Serial / Lot Graft Flex Hd 6 X 16cm [id number] - [id number] Implanted:Qty : 1 on 09/22/2010 at [place] [facility] [place] Tissue - Human Left: Breast MUSCULOSKELETAL TRANSPLANT FND 04/28/2013 [id number] / [id number] / Graft Flex Hd 6 X 16cm [id number] - [id number] Implanted:Qty : 1 on 09/22/2010 at [place] [facility] [place] Tissue - Human Right: Chest MUSCULOSKELETAL TRANSPLANT FND 04/28/2013 [id number] / [id number] / [facility] Pwr Isp 8fr [id number] - [id number] Implanted:Qty : 1 on 09/22/2010 at [place] [facility] [place] Right: Chest CR BARD : ACCESS SYSTEMS 07/13/2012 [id number] / / [id number] Breast Implant 354-2515 Saline - [id number] Implanted:Qty : 1 on 09/22/2010 at [place] [facility] [place] Right: Breast MENTOR EVA 12/13/2013 354-2515 / [id number] Breast Implant 354-2515 Saline - [id number] Implanted:Qty : 1 on 09/22/2010 at OR [facility] [place] Left: Breast MENTOR EVA 07/13/2014 354-2515 / [id number] Lens Intraoc 16.5 - [id number] - [id number] Implanted:Qty : 1 on 02/20/2016 by Lincoln Garces MD at OR [facility] [address] Left: Eye BAUSCH & LOMB 08/04/2020 [id number] / [id number] Lens Intraoc 15.5 - [id number] - [id number] Implanted:Qty : 1 on 03/09/2016 by Lincoln Garces MD at OR [facility] [address] Right: Eye BAUSCH & LOMB 12/04/2017 [id number] / [id number] / documented as of this encounter Visit Diagnoses Diagnosis Cervical myelopathy (HCC)- Primary Cervical spondylosis with myelopathy Type 2 diabetes mellitus with hemoglobin A1c goal of less than 8.0% (HCC) Dyslipidemia Other and unspecified hyperlipidemia LORE on CPAP Obstructive sleep apnea (adult) (pediatric) Moderate persistent asthma without complication Unspecified asthma Chronic diastolic congestive heart failure (HCC) Chronic diastolic heart failure HTN, goal below 130/80 Unspecified essential hypertension Body mass index (BMI) of 45.0 to 49.9 in adult ([facility]) documented in this encounter Advance Directives * [...] and were consensually agreed upon. Care Teams Cnc Machine Programmer Relationship Specialty Start Date End Date Landon Quiles DO 132 [place] [address] PCP - General Family Medicine 03/19/19 documented as of this encounter
--- OUTSIDE RECORDS SUMMARY | 2023-12-25 20:07 | External Medical Summary | Summary of Care ---
Author Name Unknown Organization [facility] Address [address] [place] [address] Phone [phone] Care Team Providers Care Spot Man Name Role Phone Landon Quiles DO Primary Care Provider Reason for Visit * Reason Onset Date Comments Dosage Adjustment Via Phone ([facility]) Encounter Details Date Type Department Care Team (Late st Contact Info) Description 10/21/2023 Telephone Pharmacy, [facility] [address] [place] [address] Pharmacist2, [facility] 200 [place] [place] [address] Dosage Adjustment Via Phone (anticoag Clinic) Allergies Active Allergy Reactions Criticality Noted Date [...] as of this encounter (statuses as of 10/21/2023) Medications Medication Sig Dispensed Refills Start Date [...] Gel Apply a thin ribbon to toothbrush. [place] twice daily in place of normal toothpaste [...] 90 Tablet 3 3 Active Nystatin-Triamcino lone 311341-6.1 UNIT/GM-% External Cream (Mycolog)Indicatio ns:Tinea cruris APPLY [...] 3 01/01/20 24 Active GNP UltiCare Pen [place] 32G X 4 MM (Insulin Pen Needle) [...] goal of less than 8.0% ([facility]) Use as directed. 6 Each 3 4 Active Amoxicillin 500 MG Oral Capsule (Amoxil) take 1 capsule (500 mg) by oral route 2 times per day. Start this 2 days before tooth extraction. 14 Capsule 4 Active Additional Information Patient not taking.Reported on 08/22/2023 BD Walking Dragline Operator Tray 27G X 1/2" 1 ML Kit [...] as needed for Pain, Moderate. 4 Active documented as of this encounter (statuses as of 10/21/2023) Active Problems Problem Noted Date Diagnosed Date [...] as of this encounter (statuses as of 10/21/2023) Resolved Problems Problem Noted Date Diagnosed Date [...] as of this encounter (statuses as of 10/21/2023) Immunizations Name Administration Dates Next Due COVID-19 mRNA, LNP-s, No Pre serve, 2-Dose Series (Appinions) 12/18/2020,06/20/2020,05/30/2020 COVID-19, LNP-s, No Preserve , Marshal-sucrose, Ages 12+ (Pfizer) 06/25/2021 Covid-19, Mrna, Lnp-s, Pf, B ivalent, 30 Mcg, IM, 12 yrs and above (Appinions) 12/31/2021 H1N1 2009 Influenza, IM 02/24/2009 Hepatitis [...] encounter Miscellaneous Notes * Telephone Encounter - Fabricio Tovar [facility] - 10/21/2023 12:40 PM EDT Medication Therapy Disease Management - Anticoagulation Patient: Barbie E Lety | : 1955 Subjective Contacts Type Contact Phone/Fax 10/21/2023 11:37 AM EDT Phone (Incoming) Barbie Davidson (Self) [phone] (M) 10/21/2023 12:40 PM EDT Phone (Outgoing) Barbie Davidson (Self) [phone] (M) Pt was hospitalized for over a week post op (was only planned for 1 day originally). Will check INRon tuesday with lab draw after PCP hospital f/u Patient-Reported Symptoms: Objective Current Warfarin Dose As of 10/21/2023 Warfarin maintenance plan: 5 mg (5 mg x 1) every Sun, Shira; 7.5 mg (5 mg x 1.5) all other days INR Result As of 10/21/2023 INR goal: 2.0-3.0 INR used for dosing: No new INR was available at the time of this encounter. Assessment & Plan Warfarin Plan As of 10/21/2023 Full warfarin instructions: 5 mg every Sun, Shira; 7.5 mg all other days No change documented: Fabricio Tovar [facility] Next INR check: 10/24/2023 Repeat PT/INR in 3 day(s) Weekly dose: not changed Additional Dosing Information: Description Bactrim dose 2.5mg MWF, 5mg all other days I spent a total of 10-19 minutes (exact time 12 mins) on the date of service in preparation, delivery, and documentation of the care provided to Barbie Davidson excluding any time spent in the performance of separately billed services or time spent by another provider/QHP. Fabricio Tovar [facility] Clinical Pharmacist 10/21/2023, 12:40 PM * Telephone Encounter - Ana Mendez CPhT - 10/21/2023 11:37 AM EDT Caller's name: Barbie Preferred call back number(OFFICE NUMBER FOR ): [phone] Reason for call: Questions about Coumadin/ Lovenox dosing: Pt just d/c'd from the hospital and has questions on her dosing and need for an INR in the next day or two. Pt is requesting a return call. Thank you, Ana Mendez CPhT [facility] [address] [place] [address] [address] [place] [address] [id number] 10/21/2023,11:37 AM documented in this encounter Plan of Treatment Upcoming Encounters Date Type Department Care Team (Late st Contact Info) Description 10/24/2023 11:00 AM EDT Office Visit [facility] [address] [place] [address] Landon Quiles DO [address] [address] 10/24/2023 5:10 PM EDT Anticoagulation Pharmacy, [facility] [address] Pharmacist2, [facility] 200 [facility] [place], [place] [address] 10/28/2023 1:00 PM EDT Anticoagulation Pharmacy, [facility] Sarai [place] [address] [place] [address] Pharmacist2, [facility] [address] [place] [address] 10/31/2023 11:00 AM EDT Imaging Radiology [facility] 1st Floor, [place] 132 [facility] [place] [address] 11/01/2023 1:20 PM EDT Office Visit Rheumatology [place] [address] [facility] [place] [address] Dayday [place] MD [address] [facility] [place] [address] 11/04/2023 1:30 PM EDT Office Visit Cardiology, [facility] 132 [facility] [place] [address] Catalina Schafer CRNP 400 [facility] [place] [address] 11/16/2023 11:45 AM EDT Office Visit Urology, [facility] 132 [facility] [place] [address] Faustino Cárdenas MD [address] [place] [address] 11/25/2023 1:00 PM EDT Immunization/Injection Hematology/Oncology Treatment, [place] [address] [place] [id number] Sarai, Chair 10 Hem On[address] [place] [address] 11/30/2023 1:00 PM EDT Office Visit Hematology/Oncology [facility] 200 [facility] [place], [place] [phone] Daniella [facility]ccord [facility]NP [address] [facility] [address] 12/07/2023 1:00 PM EDT Office Visit Pharmacy, [facility] 200 [facility] [place] [address] Pharmacist2, [facility] 200 [facility] [place] [address] 12/07/2023 1:40 PM EDT Anticoagulation Pharmacy, [facility] 200 [facility] [place] [address] Pharmacist2, [facility] 200 [place] [address] 12/27/2023 3:30 PM EDT Office Visit Gastroenterology, [facility] [address] [place] [address] Franchesca Almaraz CRNP [address] [place] [address] 01/10/2024 1:00 PM EST Office Visit [facility] [address] [place] [address] Landon Quiles DO [address] [place] [address] 05/11/2024 1:40 PM EST Office Visit [facility] [address] [place] [address] Jackeline Diaz CRNP [address] [place] [address] 09/17/2024 11:40 AM EDT Office Visit Sleep Disorders C[facility] [address] [place] [address] Bernadette Zuniga DO [address] [place] [address] Scheduled Orders Name Type Priority Associated Diagnoses Orde r Schedule PT INR Lab Routine History of pulmonary embolism Anticoagulation management encounter 26 Occurrences starting 10/21/2023 until 10/20/2024 INR FINGERSTICK, POINT OF CARE Point of Care Testing - Unsolicited Results STAT History of pulmonary embolism Anticoagulation management encounter Every 2 Weeks for 26 Occurrences starting 10/21/2023 until 10/20/2024 Health Maintenance Due Date Last Done Comments [...] this encounter Medical Devices Implanted Type Area Director Emergency Services Device Identifier Shelf Expiration Date Model / Serial / Lot Graft Flex Hd 6 X 16cm [id number] - [id number] Implanted:Qty : 1 on 09[place]22[place] [facility] [place] - Human Left: Breast MUSCULOSKELETAL TRANSPLANT FND 04/28/2013 [id number] / [id number] / Graft Flex Hd 6 X 16cm [id number] - [id number] Implanted:Qty : 1 on 09/22/2010 [place] [facility] [place] - Human Right: Chest MUSCULOSKELETAL TRANSPLANT FND 04/28/2013 [id number] / [id number] / Mediport Pwr Isp 8fr [id number] - [id number] Implanted:Qty : 1 on 09/22/2010 [place] [facility] [place] Right: Chest CR BARD : ACCESS SYSTEMS 07/13/2012 [id number] / / [id number] Breast Implant 354-2515 Saline - [id number] Implanted:Qty : 1 on 09/22/2010 [place] [facility] [place] Right: Breast MENTOR EVA 12/13/2013 354-2515 / [id number] Breast Implant 354-2515 Saline - [id number] Implanted:Qty : 1 on 09/22/2010 [place] [facility] [place] Left: Breast MENTOR EVA 07/13/2014 354-2515 / [id number] Lens Intraoc 16.5 - [id number] - [id number] Implanted:Qty : 1 on 02/20/2016 by Lincoln Garces MD at OR [facility] Left: Eye BAUSCH & LOMB 08/04/2020 [id number] / [id number] / [id number] Lens Intraoc 15.5 - [id number] - [id number] Implanted:Qty : 1 on 03/09/2016 by Lincoln Garces MD at OR [facility] Right: Eye BAUSCH & LOMB 12/04/2017 [id number] / [id number] / documented as of this encounter Visit Diagnoses Diagnosis Anticoagulation management [...] and were consensually agreed upon. Care Teams Spot Man Relationship Specialty Start Date End Date Landon Quiles DO [address] [place] [address] PCP - General Family Medicine 03/19/19 documented as of this encounter
--- OUTSIDE RECORDS SUMMARY | 2023-12-25 20:07 | External Medical Summary ---
Author Name Unknown Address Unknown Organization K09:[facility] [place] [address] Laboratory Report Ordering Provider Test Date Status TAZ QUIROGA 10/28/2023 13:16:16 Final Observation Date Value Abnormality Reference (Units ) Status BUN 10/28/2023 13:16:16 18 6-20 (mg/dL) Final Creatinine 10/28/2023 13:16:16 0.9 0.5-1.0 (mg/dL) Final Glomerular filtration rate/1.73 sq M.predicted [Volume Rate/Area] in Serum, Plasma or Blood by Creatinine-based formula (CKD-EPI) 10/28/2023 13:16:16 73 >=60 (mL/min) Final eGFR is calculated based on the CKD-EPI 2020 equation. Sodium 10/28/2023 13:16:16 140 135-146 (m mol/L) Final Potassium 10/28/2023 13:16:16 4.3 3.5-5.1 (m mol/L) Final Cl 10/28/2023 13:16:16 104 98-107 (mm ol/L) Final CO2 10/28/2023 13:16:16 21 Below low normal 22- 32 (mmol/L) Final Anion gap 10/28/2023 13:16:16 15 7-15 (mmol /L) Final Glucose 10/28/2023 13:16:16 171 Above high normal 70 -120 (mg/dL) Final Albumin 10/28/2023 13:16:16 3.9 3.8-5.0 (g /dL) Final AST (Aspartate aminotransferase) 10/28/2023 13:16:16 14 10-35 (U/L) Fin al Alk Phos 10/28/2023 13:16:16 95 35-130 (U/ L) Final Bilirubin, Total 10/28/2023 13:16:16 0.3 <=1 .2 (mg/dL) Final Calcium 10/28/2023 13:16:16 9.4 8.4-10.2 ( mg/dL) Final Protein 10/28/2023 13:16:16 6.8 6.0-8.3 (g /dL) Final ALT (Alanine aminotransferase) 10/28/2023 13:16:16 15 10-35 (U/L) Bernardo becker Performing Location [facility] [address] [place] [address]
--- OUTSIDE RECORDS SUMMARY | 2023-12-25 20:07 | External Medical Summary | Summary of Care ---
Author Name Unknown Organization [facility] Address [address] [place] [address] Phone [phone] Care Team Providers Care Lawn Sprinkler Servicer Name Role Phone QuilesLandonray Primary Care Provider Reason for Visit * Reason Comments Outpatient Testing Encounter Details Date Type Department Care Team (Late st Contact Info) Description 10/24/2023 11:40 AM EDT Laboratory Laboratory, [facility] [address] [place] [address] [facility] [address] [place] [address] Encounter for long-term (current) use of medications; History of pulmonary embolism; Anticoagulation management encounter Allergies Active Allergy Reactions Criticality Noted Date [...] Gel Apply a thin ribbon to toothbrush. [place] twice daily in place of normal toothpaste [...] 90 Tablet 3 3 Active Nystatin-Triamcino lone 258709-3.1 UNIT/GM-% External Cream (Mycolog)Indicatio ns:Tinea cruris APPLY [...] 3 01/01/20 24 Active GNP UltiCare Pen [place] 32G X 4 MM (Insulin Pen Needle) [...] Information Patient not taking.Reported on 08/22/2023 BD Car Pick Up Driver Tray 27G X 1/2" 1 ML [...] Extended Release (Isoptin SR)Indications:PAT (paroxysmal atrial tachycardia) ([facility]) TAKE 1 TABLET BY MOUTH [...] mRNA, LNP-s, No Pre serve, 2-Dose Series (Smart Sparrow) 12/18/2020,06/20/2020,05/30/2020 COVID-19, LNP-s, No Preserve , Marshal-sucrose, [...] Description 10/24/2023 5:10 PM EDT Anticoagulation Pharmacy, [facility] [address] [place] [address] Pharmacist2, [facility] [address] [place] [address] 10/28/2023 1:00 PM EDT Anticoagulation Pharmacy, [facility] [address] [place] [address] Pharmacist2, [facility] [address] [place] [address] 10/31/2023 11:00 AM EDT Imaging Radiology [facility] 132 [facility] [place] [address] 11/01/2023 1:20 PM EDT Office Visit Rheumatology [place] [address] [place] [address] Dayday [place] MD [address] [employer] [place] [address] 11/04/2023 1:30 PM EDT Office Visit Cardiology, [facility] 132 [place] [address] Catalina Schafer CRNP [address] [place] [address] 11/16/2023 11:45 AM EDT Office Visit Urology, [facility] 132 [facility] [place] [address] Faustino Cárdenas MD [address] [facility] [place] [address] 11/25/2023 1:00 PM EDT Immunization/Injection [facility]ematology/Oncology Treatment, [place] [facility] [address] Sarai, Chair [address] [place] [address] 11/30/2023 1:00 PM EDT Office Visit Hematology/Oncology [address] [place] [address] Daniella Mccord CRNP [address] [place] [address] 12/07/2023 1:00 PM EDT Office Visit Pharmacy, [facility] 200 [facility] [place] [address] Pharmacist2, [facility] [address] [place] [address] [address] 12/07/2023 1:40 PM EDT Anticoagulation Pharmacy, [facility] 200 [facility] [place] [address] Pharmacist2, [facility] [address] [place] [address] [address] 12/27/2023 3:30 PM EDT Office Visit Gastroenterology, [facility] [address] [place] [address] Franchesca Almaraz CRNP [address] [place] [address] 01/10/2024 1:00 PM EST Office Visit [facility] [address] [place] [address] Landon Quiles, DO [address] [place] [address] 05/11/2024 1:40 PM EST Office Visit [facility] [address] [place] [address] Jackeline Diaz CRNP [address] [place] [address] 09/17/2024 11:40 AM EDT Office Visit Sleep Disorders Ctr [facility] [address] [place] [phone] Bernadette Zuniga, DO [address] [place] [address] Scheduled Orders Name Type Priority Associated Diagnoses Orde r Schedule CBC Lab Routine Encounter for long-term (current) use of medications Ordered: 10/24/2023 DIFFERENTIAL, AUTOMATED Lab Routine Encounter for long-term (current) use of medications Ordered: 10/24/2023 Health Maintenance Due Date Last Done Comments [...] this encounter Medical Devices Implanted Type Area Senior Business Manager Device Identifier Shelf Expiration Date Model / Serial / Lot Graft Flex Hd 6 X 16cm [id number] - [id number] Implanted:Qty : 1 on 09/22/2010 [place] [facility] [place] - Human Left: Breast MUSCULOSKELETAL TRANSPLANT FND 04/28/2013 [id number] / [id number] / Graft Flex Hd 6 X 16cm [id number] - [id number] Implanted:Qty : 1 on 09/22/2010 [place] [facility] [place] - Human Right: Chest MUSCULOSKELETAL TRANSPLANT FND 04/28/2013 [id number] / [id number] / Mediport Pwr Isp 8fr [id number] - [id number] Implanted:Qty : 1 on 09/22/2010 [place] [facility] [place] Right: Chest CR BARD : ACCESS SYSTEMS 07/13/2012 [id number] / / [id number] Breast Implant 354-2515 Saline - [id number] Implanted:Qty : 1 on 09/22/2010 [place] [facility] [place] Right: Breast MENTOR EVA 12/13/2013 354-2515 / [id number] Breast Implant 354-2515 Saline - [id number] Implanted:Qty : 1 on 09/22/2010 [place] [facility] [place] Left: Breast MENTOR EVA 07/13/2014 354-2515 / [id number] Lens Intraoc 16.5 - [id number] - [id number] Implanted:Qty : 1 on 02/20/2016 by Lincoln Garces MD at OR [facility] Left: Eye BAUSCH & LOMB 08/04/2020 [id number] / [id number] / [id number] Lens Intraoc 15.5 - [id number] - [id number] Implanted:Qty : 1 on 03/09/2016 by Lincoln Garces MD at OR [facility] Right: Eye BAUSCH & LOMB 12/04/2017 [id number] / [id number] / documented as of this encounter Visit Diagnoses Diagnosis Encounter for long-term (current) use of medications Encounter for long-term (current) use of other medications History of pulmonary embolism Personal history of pulmonary embolism Anticoagulation management encounter Encounter for therapeutic drug monitoring documented in this encounter Advance Directives * [...] and were consensually agreed upon. Care Teams Lawn Sprinkler Servicer Relationship Specialty Start Date End Date Landon Quiles DO [address] [place] [address] PCP - General Family Medicine 03/19/19 documented as of this encounter
--- OUTSIDE RECORDS SUMMARY | 2023-12-25 20:07 | External Medical Summary | Summary of Care ---
Author Name Unknown Organization [facility] Address [address] [place] [address] Phone [phone] Care Team Providers Care Gas Dispatcher Name Role Phone Lalo Quileschristian Callejasray Primary Care Provider Reason for Visit * Reason Comments Dosage Adjustment Via Phone (anticoag Cl inic) Encounter Details Date Type Department Care Team (Latest Contact Info) Description 10/24/2023 5:10 PM EDT Anticoagulation Pharmacy, [facility] [address] [place] [address] Pharmacist2, [facility] [address] [place] [address] History of pulmonary embolism* Allergies Active Allergy Reactions Criticality Noted Date [...] Gel Apply a thin ribbon to toothbrush. [place] twice daily in place of normal toothpaste [...] 90 Tablet 3 3 Active Nystatin-Triamcino lone 569352-9.1 UNIT/GM-% External Cream (Mycolog)Indicatio ns:Tinea cruris APPLY [...] 3 01/01/20 24 Active GNP UltiCare Pen [place] 32G X 4 MM (Insulin Pen Needle) [...] hemoglobin A1c goal of less than 8.0% ([facility]) Use as directed. 6 Each 3 4 Active Amoxicillin 500 MG Oral Capsule (Amoxil) take 1 capsule (500 mg) by oral route 2 times per day. Start this 2 days before tooth extraction. 14 Capsule 4 Active Additional Information Patient not taking.Reported on 08/22/2023 BD English Composition Instructor Tray 27G X 1/2" 1 ML Kit [...] Extended Release (Isoptin SR)Indications:PAT (paroxysmal atrial tachycardia) ([facility]) TAKE 1 TABLET BY MOUTH 3 TIMES [...] mRNA, LNP-s, No Pre serve, 2-Dose Series ([employer]) 12/18/2020,06/20/2020,05/30/2020 COVID-19, LNP-s, No Preserve , [...] of this encounter Progress Notes * Fabricio Tovar RPh - 10/24/2023 1:28 PM EDT Patient Phone Numbers Pt unable to have blood draw this today due to poor vascular tone. Pt to have [facility] here for the next few weeks. Isn't sure when her first inperson visit will be scheduled but will follow up with the [facility] clinic in case. Pt will follow up with [facility] clinic and [facility] will fax orders to [facility] at that time. Call back Lex with any advice or orders at [phone] Please fax new orders to [facility] Home Health Fabricio Tovar, PharmD, BCACP, [facility] Clinical Pharmacist 10/24/2023, 1:36 PM documented in this encounter Plan of Treatment Upcoming Encounters Date Type Department Care Team (Late st Contact Info) Description 10/28/2023 1:00 PM EDT Anticoagulation Pharmacy, [facility] [address] [place] [address] Pharmacist2, [facility] [address] [place] [address] 11/04/2023 1:30 PM EDT Office Visit Cardiology, [facility] [address] [facility] [place] [address] Catalina Schafer CRNP [address] [place] [address] 11/16/2023 11:45 AM EDT Office Visit Urology, [facility] [address] [facility] [place] [address] Faustino Cárdenas MD [address] [facility] [place] [address] 11/25/2023 1:00 PM EDT Immunization/Injection Hematology/Oncology Treatment, [place] 200 [facility], [place] [id number] Sarai, Chair 10 Hem Onc [address] [place] [address] 11/30/2023 1:00 PM EDT Office Visit Hematology/Oncology [facility] [address] [facility] [place] [address] Daniella Mccord CRNP [address] [place] [address] 12/07/2023 1:00 PM EDT Office Visit Pharmacy, [facility] [address] [place] [address] Pharmacist2, [facility] [address] [place] [address] 12/07/2023 1:40 PM EDT Anticoagulation Pharmacy, [facility] [address] [facility] [place] [address] Pharmacist2, [facility] [address] [place] [address] 12/27/2023 3:30 PM EDT Office Visit Gastroenterology, [facility] [address] [place] [address] Franchesca Almaraz CRNP [address] [place] [address] 01/10/2024 1:00 PM EST Office Visit [facility] [address] [place] [address] Landon Quiles, DO [address] [place] [address] 05/11/2024 1:40 PM EST Office Visit [facility] [address] [place] [address] Jackeline Diaz CRNP [address] [place] [address] 09/17/2024 11:40 AM EDT Office Visit [facility] Disorders Ctr [facility] [address] [place] [phone] Bernadette Zuniga, DO [address] [place] [address] Health Maintenance Due Date Last Done Comments [...] this encounter Medical Devices Implanted Type Area Veneer Jointer Offbearer Device Identifier Shelf Expiration Date Model / Serial / Lot Graft Flex Hd 6 X 16cm [id number] - [id number] Implanted:Q[place] : 1 on [place] [facility] [place] Left: Breast MUSCULOSKELETAL TRANSPLANT FND 04/28/2013 [id number] / [id number] / Graft Flex Hd 6 X 16cm [id number] - [id number] Implanted:Qty : 1 on 09/22/2010 [place] [facility] [place] - Human Right: Chest MUSCULOSKELETAL TRANSPLANT FND 04/28/2013 [id number] / [id number] / Mediport Pwr Isp 8fr [id number] - [id number] Implanted:Qty : 1 on 09/22/2010 [place] [facility] [place]: Chest CR BARD : ACCESS SYSTEMS 07/13/2012 [id number] / / [id number] Breast Implant 354-2515 Saline - [id number] Implanted:Qty : 1 on 09/22/2010 [place] [facility] [place]: Breast MENTOR EVA 12/13/2013 [id number] / [id number] Breast Implant 354-2515 Saline - [id number] Implanted:Qty : 1 on 09/22/2010 [place] [facility] [place]: Breast MENTOR EVA 07/13/2014 [id number] / [id number] Lens Intraoc 16.5 - [id number] - [id number] Implanted:Qty : 1 on 02/20/2016 by Lincoln Garces MD at OR [facility] Left: Eye BAUSCH & LOMB 08/04/2020 [id number] / [id number] / [id number] Lens Intraoc 15.5 - [id number] - [id number] Implanted:Qty : 1 on 03/09/2016 by Lincoln Garces MD at OR [facility] Right: Eye BAUSCH & LOMB 12/04/2017 [id number] / [id number] / documented as of this encounter Visit Diagnoses Diagnosis History of pulmonary embolism- Primary Personal history of pulmonary embolism documented in [...] and were consensually agreed upon. Care Teams Gas Dispatcher Relationship Specialty Start Date End Date Landon Quiles DO [address] [place] [address] PCP - General Family Medicine 03/19/19 documented as of this encounter
--- OUTSIDE RECORDS SUMMARY | 2023-12-25 20:07 | External Medical Summary ---
Author Name Unknown Address Unknown Organization [id number] [address] [place] [address] Laboratory Report Ordering Provider Test Date Status TAZ QUIROGA 10/28/2023 13:16:16 Final Observation Date Value Abnormality Reference (Units ) Status SYNC LEUKOCYTES IN BLOOD BY AUTOMATED COUNT 10/28/2023 13:16:16 11.34 Above high normal 4.00-10.80 (K/uL) Final Neutrophils/100 leukocytes in Blood by Manual count 10/28/2023 13:16:16 77.0 Above high normal 40.0-75.0 (%) Final Lymphocytes/100 leukocytes in Blood by Manual count 10/28/2023 13:16:16 14.0 Below low normal 18.0-42.0 (%) Final Monocytes/100 leukocytes in Blood by Manual count 10/28/2023 13:16:16 6.0 1.0-11.0 (%) Final Eosinophils/100 leukocytes in Blood by Manual count 10/28/2023 13:16:16 1.0 0.0-6.0 (%) Final Metamyelocytes/100 leukocytes in Blood by Manual count 10/28/2023 13:16:16 2.0 Above high normal <=0.0 (%) Final Neutrophils [#/volume] in Blood by Manual count 10/28/2023 13:16:16 8.73 Above high normal 1.80-7.70 (K/uL) Final Lymphocytes [#/volume] in Blood by Manual count 10/28/2023 13:16:16 1.59 1.00-4.80 (K/uL) Final Monocytes [#/volume] in Blood by Manual count 10/28/2023 13:16:16 0.68 0.00-1.10 (K/uL) Final Eosinophils [#/volume] in Blood by Manual count 10/28/2023 13:16:16 0.11 0.00-0.70 (K/uL) Final Metamyelocytes [#/volume] in Blood by Manual count 10/28/2023 13:16:16 0.23 Above high normal <=0.00 (K/uL) Final Nucleated erythrocytes/100 leukocytes [Ratio] in Blood by Automated count 10/28/2023 13:16:16 Final Performing Location [facility] [address] [place] [address]
--- OUTSIDE RECORDS SUMMARY | 2023-12-25 20:07 | External Medical Summary | Summary of Care ---
Author Name Unknown Organization [facility] Address [address] [place] [address] Phone [phone] Care Team Providers Care Piano Bench Assembler Name Role Phone Lalo Quilesr Anayeli Primary Care Provider Reason for Visit * Reason Comments Dosage Adjustment In Person (Anticoag Cl inic) Encounter Details Date Type Department Care Team (Latest Contact Info) Description 10/28/2023 1:00 PM EDT Anticoagulation Pharmacy, [facility] [address] [place] [address] Pharmacist2, [facility] [address] [place] [address] History of pulmonary embolism*; Anticoagulation management encounter Allergies Active Allergy Reactions [...] Gel Apply a thin ribbon to toothbrush. [place] twice daily in place of normal [...] 90 Tablet 3 3 Active Nystatin-Triamcino lone 613792-3.1 UNIT/GM-% External Cream (Mycolog)Indicatio ns:Tinea cruris APPLY [...] 3 01/01/20 24 Active GNP UltiCare Pen [place] 32G X 4 MM (Insulin Pen Needle) [...] hemoglobin A1c goal of less than 8.0% ([facility]) Use as directed. 6 Each 3 4 Active Amoxicillin 500 MG Oral Capsule (Amoxil) take 1 capsule (500 mg) by oral route 2 times per day. Start this 2 days before tooth extraction. 14 Capsule 4 Active Additional Information Patient not taking.Reported on 08/22/2023 BD Electric Hoist Operator Tray 27G X 1/2" 1 ML [...] Extended Release (Isoptin SR)Indications:PAT (paroxysmal atrial tachycardia) ([facility]) TAKE 1 TABLET BY MOUTH 3 [...] mRNA, LNP-s, No Pre serve, 2-Dose Series ([employer]) 12/18/2020,06/20/2020,05/30/2020 COVID-19, LNP-s, No Preserve , Marshal-sucrose, [...] this encounter Progress Notes * Fabricio Tovar, [facility] - 10/28/2023 1:49 PM EDT Images from the original note were not included. Medication Therapy Disease Management - Anticoagulation Patient: Barbie Davidson | : 1955 Subjective Patient-Reported Symptoms: Patient Findings Negatives: Signs/symptoms of thrombosis, Signs/symptoms of bleeding, Change in health, Change in alcohol use, Change in activity, Upcoming invasive procedure, Missed doses, Extra doses, Change in medications, Change in diet/appetite, Bruising Objective Current Warfarin Dose As of 10/28/2023 Warfarin maintenance plan: 5 mg (5 mg x 1) every Sun, Shira; 7.5 mg (5 mg x 1.5) all other days INR Result As of 10/28/2023 INR goal: 2.0-3.0 INR used for dosin.8 (10/28/2023) Assessment & Plan Warfarin Plan As of 10/28/2023 Full warfarin instructions: 10/27: 10 mg; Otherwise 5 mg every Sun, Shira; 7.5 mg all other days Next INR check: 12/07/2023 Repeat PT/INR in 5 week(s) Weekly dose: not changed Additional Dosing Information: [...] by another provider/QHP. Fabricio Tovar [facility] Clinical Pharmacist 10/28/2023, 1:49 PM documented in this encounter Plan of Treatment Upcoming Encounters Date Type Department Care Team (Late st Contact Info) Description 11/04/2023 1:30 PM EDT Office Visit Cardiology, [facility] [address] [facility] [place] [address] Catalina Schafer CRNP [address] [place] [address] 11/16/2023 11:45 AM EDT Office Visit Urology, [facility] [address] [facility] [place] [address] Faustino Cárdenas MD [address] [place] [address] 11/25/2023 1:00 PM EDT Immunization/Injection Hematology/[facility]cology Treatment, [place] [facility] [address] Sarai, Chair 10 [address] [address] 11/30/2023 1:00 PM EDT Office Visit Hematology/Oncology [address] [place] [address] Daniella Mccord CRNP [address] [place] [address] 12/07/2023 1:00 PM EDT Office Visit Pharmacy, [address] [place] [address] Pharmacist2, [facility] [address] [facility] [place] [address] 12/07/2023 1:40 PM EDT Anticoagulation Pharmacy, [facility] [address] [place] [address] Pharmacist2, [facility] [address] [facility] [place] [address] 12/09/2023 1:30 PM EDT Nurse Only Hematology/Oncology Treatment, [place] [address] [place] [address] Sarai, Chair 2 Hem On[facility] [address] [facility] [place] [address] 12/27/2023 3:30 PM EDT Office Visit Gastroenterology, [facility] [address] [place] [address] Franchesca Almaraz CRNP [address] [place] [address] 01/10/2024 1:00 PM EST Office Visit Family Practice [facility] [address] [place] [address] Landon Quiles DO [address] [place] [address] 05/11/2024 1:40 PM EST Office Visit Family Practice [facility] [address] [place] [address] Jackeline Diaz CRNP [address] [place] [address] 09/17/2024 11:40 AM EDT Office Visit [facility] Disorders Ctr [facility] [address] [place] [phone] [place] Bernadette Roy, DO [address] [place] [address] Health Maintenance Due Date Last Done Comments [...] 07/12/2022, 04/07/2021, Additional history exists GFR 06/30/2024 10/28/2023, 06/06, 06/29/2023, Additional history exists Pneumococcal [...] this encounter Medical Devices Implanted Type Area Racking Technician Device Identifier Shelf Expiration Date Model / Serial / Lot Graft Flex Hd 6 X 16cm [id number] - [id number] Implanted:Qty : 1 on 09/22/2010 [place] [facility] [place] - Human Left: Breast MUSCULOSKELETAL TRANSPLANT FND 04/28/2013 [id number] / [id number] / Graft Flex Hd 6 X 16cm [id number] - [id number] Implanted:Qty : 1 on 09/22/2010 [place] [facility] [place] Tissue - Human Right: Chest MUSCULOSKELETAL TRANSPLANT FND 04/28/2013 [id number] / [id number] / Mediport Pwr Isp 8fr [id number] - [id number] Implanted:Qty : 1 on 09/22/2010 at [place] [facility] [place] Right: Chest CR BARD : [employer]ESS SYSTEMS 07/13/2012 [id number] / / [id number] Breast Implant 354-1085 Saline - [id number] Implanted:Qty : 1 on 09/22/2010 at [place] [facility] [place] Right: Breast MENTOR EVA 12/13/2013 354-2515 / [id number] Breast Implant 354-4155 Saline - [id number] Implanted:Qty : 1 on 09/22/2010 at [place] [facility] [place] Left: Breast MENTOR EVA 07/13/2014 [id number] / [id number] / [id number] Lens Intraoc 16.5 - [id number] - [id number] Implanted:Qty : 1 on 02/20/2016 by Lincoln Garces MD at OR [facility] Left: Eye BAUSCH & LOMB 08/04/2020 [id number] / [id number] / [id number] Lens Intraoc 15.5 - [id number] - [id number] Implanted:Qty : 1 on 03/09/2016 by Lincoln Garces MD at OR [facility] Right: Eye BAUSCH & LOMB 12/04/2017 [id number] / [id number] / documented as of this encounter Procedures Procedure Name Priority Date/Time Associated Diagnosis Comments INR FINGERSTICK, POINT OF CARE STAT 10/28/2023 1:53 PM EDT History of pulmonary embolism Anticoagulation management encounter documented in this encounter Results * INR FINGERSTICK, POINT OF CARE (10/28/2023 1:53 PM EDT) Fingerstick INR 1.8 INR 1:55 PM EDT [facility]-02 Blood 10/28/2023 1:53 PM EDT 10/28/2023 1:55 PM EDT Narrative [facility] 56-02 - 10/28/2023 1:55 PM EDT Therapeutic ranges for non-operative patients: Prophylaxsis/treatment of DVT: (Range:2.0-3.0) Treatment of pulmonary embolism:(Range:2.0-3.0) Prevention of systemic embolism from: -tissue heart valves -acute myocardial infarction -valvular heart disease -atrial fibrillation (Range: 2.0-3.0) Mechanical prosthetic valves: (Range: 2.5-3.5) Fabricio Tovar [facility] POINT O F CARE TEST DOCKED DEVICE UNSOLICITED RESULTS [facility] [address] [place] [address] documented in this encounter Visit Diagnoses Diagnosis History of pulmonary embolism- Primary Personal history of pulmonary embolism Anticoagulation management [...] and were consensually agreed upon. Care Teams Piano Bench Assembler Relationship Specialty Start Date End Date Landon Quiles DO [address] [place] [address] PCP - General Family Medicine 03/19/19 documented as of this encounter
--- OUTSIDE RECORDS SUMMARY | 2023-12-25 20:07 | External Medical Summary ---
Author Name Unknown Address Unknown Organization [facility] [place] [address] Laboratory Report Ordering Provider Test Date Status ARLENE BUTCHER 10/28/2023 13:53:10 Final Therapeutic ranges for non-o perative patients:
Prophylaxsis/treatment of DVT: (Range:2.0-3.0)
Treatment of pulmonary embolism:(Range:2.0-3.0)
Prevention of systemic embolism from:
-tissue heart valves
-acute myocardial infarction
-valvular heart disease
-atrial fibrillation
(Range: 2.0-3.0)
Mechanical prosthetic valves: (Range: 2.5-3.5) Observation Date Value Abnormality Reference (Units ) Status INR in Capillary blood by Coagulation assay 10/28/2023 13:53:10 1.8 (INR) Final Performing Location [facility] [place] [address]
--- OUTSIDE RECORDS SUMMARY | 2023-12-25 20:07 | External Medical Summary ---
Author Name Unknown Address Unknown Organization [facility] [place] [address] Laboratory Report Ordering Provider Test Date Status TAZ QUIROGA 10/28/2023 13:16:16 Final Observation Date Value Abnormality Reference (Units ) Status WBC, Total 10/28/2023 13:16:16 11.34 Above high normal 4 .00-10.80 (K/uL) Final RBC 10/28/2023 13:16:16 3.75 3.85-5.15 (M/uL) Final Hemoglobin 10/28/2023 13:16:16 12.3 12.0-15.3 (g/dL) Final HCT 10/28/2023 13:16:16 37.5 36.0-45.2 (%) Final MCV 10/28/2023 13:16:16 100.0 81.5-97.5 (fL) Final MCH 10/28/2023 13:16:16 32.8 27.0-34.0 (pg) Final MCHC 10/28/2023 13:16:16 32.8 32.0-36.0 (g/dL) Final RDW 10/28/2023 13:16:16 15.4 11.5-15.5 (%) Final Platelets 10/28/2023 13:16:16 342 140-400 (K /uL) Final MPV 10/28/2023 13:16:16 10.2 6.6-11.1 ( fL) Final Performing Location [facility] [place] [address]
--- OUTSIDE RECORDS SUMMARY | 2023-12-25 20:08 | External Medical Summary | Summary of Care ---
Author Name Unknown Organization [facility] Address [address] [place] [address] Phone [phone] Care Team Providers Care Cut Out Stitcher Name Role Phone Lalo Quileschristian Callejasray Primary Care Provider Reason for Visit * Reason Onset Date Comments Appointment 10/13/2023 Encounter Details Date Type Department Care Team (Late st Contact Info) Description 10/13/2023 Telephone Hematology/Oncology Treatment, [place] [address] [place] [address] Services, Scheduling [address] [place] [address] Appointment Allergies Active Allergy Reactions Criticality Noted [...] as of this encounter (statuses as of 10/18/2023) Medications Medication Sig Dispensed Refills Start Date [...] Gel Apply a thin ribbon to toothbrush. [place] twice daily in place of normal toothpaste [...] 90 Tablet 3 3 Active Nystatin-Triamcino lone 671986-9.1 UNIT/GM-% External Cream (Mycolog)Indicatio ns:Tinea cruris APPLY [...] 3 01/01/20 24 Active GNP UltiCare Pen [place] 32G X 4 MM (Insulin Pen Needle) [...] 8.0% (FORMERLY [facility]) Use as directed. 6 Each 3 4 Active Amoxicillin 500 MG Oral Capsule (Amoxil) take 1 capsule (500 mg) by oral route 2 times per day. Start this 2 days before tooth extraction. 14 Capsule 4 Active Additional Information Patient not taking.Reported on 08/22/2023 BD Beer Runner Tray 27G X 1/2" 1 ML Kit [...] as of this encounter (statuses as of 10/18/2023) Active Problems Problem Noted Date Diagnosed Date [...] as of this encounter (statuses as of 10/18/2023) Resolved Problems Problem Noted Date Diagnosed Date [...] as of this encounter (statuses as of 10/18/2023) Immunizations Name Administration Dates Next Due COVID-19 mRNA, LNP-s, No Pre serve, 2-Dose Series ([employer]) 12/18/2020,06/20/2020,05/30/2020 COVID-19, LNP-s, No Preserve , Marshal-sucrose, Ages 12+ ([employer]) 06/25/2021 Covid-19, Mrna, Lnp-s, Pf, B ivalent, 30 Mcg, IM, 12 yrs and above ([employer]) 12/31/2021 H1N1 2009 Influenza, IM 02/24/2009 Hepatitis [...] encounter Miscellaneous Notes * Telephone Encounter - Mateus Abrams OSA - 10/18/2023 9:42 AM EDT Spoke with pt. Currently admitted at [facility]. Will be there at least through 10/18. Informed pt we would give her a call on 10/19 and asked her to keep us updated. She is unsure if she will be in or inpatient rehab upon her discharge. * Telephone Encounter - Catalina De La Cruz OSA - 10/14/2023 8:20 AM EDT Called pt and could not leave a VM do to mailbox being full Also sent a weartolookg message Will call pt later today * [...] from 10/03/23. Please call her back at [phone] Thanks documented in this encounter Plan of Treatment Upcoming Encounters Date Type Department Care Team (Late st Contact Info) Description 10/24/2023 11:00 AM EDT Office Visit Family Practice [facility] 132 [facility] [place] [address] Landon Quiles, 132 [facility] [place] [address] 10/28/2023 1:00 PM EDT Anticoagulation Pharmacy, [facility] 200 [facility] [place] [address] Pharmacist2, [facility] [address] [facility] [place] [address] 10/31/2023 11:00 AM EDT Imaging Radiology [facility] 132 [facility] [place] [address] 11/01/2023 1:20 PM EDT Office Visit Rheumatology [address] [place] [address] [facility] [place] [address] 11/04/2023 1:30 PM EDT Office Visit Cardiology, [facility] 132 [facility] [place] [address] Catalina Schafer CRNP [address] [place] [address] 11/16/2023 11:45 AM EDT Office Visit Urology, [facility] 132 [facility] [place] [address] Faustino Cárdenas MD [address] [place] [address] 11/25/2023 1:00 PM EDT Immunization/Injection Hematology/Oncology Treatment, [place] 200 [facility] [place] [phone] Park, Chair [address] Hem On[address] [place] [address] 11/30/2023 1:00 PM EDT Office Visit Hematology/Oncology [facility] 200 [facility] [place] [phone] Daniella Mccord CRNP 400 [facility] [place] [address] 12/07/2023 1:00 PM EDT Office Visit Pharmacy, [facility] 200 [facility] [place] [address] Pharmacist2, [facility] [address] [facility] [place] [address] 12/07/2023 1:40 PM EDT Anticoagulation Pharmacy, [facility] [address] [facility] [place] [address] Pharmacist2, [facility] [address] [facility] [place] [address] 12/27/2023 3:30 PM EDT Office Visit Gastroenterology, [facility] [address] [place] [address] Franchesca Almaraz CRNP [address] [place] [address] 01/10/2024 1:00 PM EST Office Visit Family Practice [facility] [address] [place] [address] Landon Quiles, [address] [place] [address] 05/11/2024 1:40 PM EST Office Visit Family Practice [facility] [address] [place] [address] Jackeline Diaz CRNP [address] [place] [address] 09/17/2024 11:40 AM EDT Office Visit Sleep Disorders Ctr [facility] [address] [place] [address] Bernadette Zuniga DO [address] [place] [address] Health Maintenance Due Date Last Done Comments [...] this encounter Medical Devices Implanted Type Area Head Operator Device Identifier Shelf Expiration Date Model / Serial / Lot Graft Flex Hd 6 X 16cm [id number] - [id number] Implanted:Qty : 1 on 09/22/2010 [place] [facility] Tissue - Human Left: Breast MUSCULOSKELETAL TRANSPLANT FND 04/28/2013 [id number] / [id number] / Graft Flex Hd 6 X 16cm [id number] - [id number] Implanted:Qty : 1 on 09/22/2010 [place] [facility] [place] Tissue - Human Right: Chest MUSCULOSKELETAL TRANSPLANT FND 04/28/2013 [id number] / [id number] / Mediport Pwr Isp 8fr [id number] - [id number] Implanted:Qty : 1 on 09/22/2010 [place] [facility] Right: Chest CR BARD : ACCESS SYSTEMS 07/13/2012 [id number] / / [id number] Breast Implant [id number] Saline - [id number] Implanted:Qty : 1 on 09/22/2010 at [place] [facility] Right: Breast MENTOR EVA 12/13/2013 [id number] / [id number] Breast Implant 354-2515 Saline - [id number] Implanted:Qty : 1 on 09/22/2010 at [place] [facility] Left: Breast MENTOR EVA 07/13/2014 [id number] / [id number] Lens Intraoc 16.5 - [id number] - [id number] Implanted:Qty : 1 on 02/20/2016 by Lincoln Garces MD at [facility] Left: Eye BAUSCH & LOMB 08/04/2020 [id number] / [id number] Lens Intraoc 15.5 - [id number] - [id number] Implanted:Qty : 1 on 03/09/2016 by Lincoln Garces MD at OR [facility] Right: Eye BAUSCH & LOMB 12/04/2017 [id number] / [id number] / documented as of this encounter Advance [...] and were consensually agreed upon. Care Teams Cut Out Stitcher Relationship Specialty Start Date End Date Landon Quiles DO [address] [place] [address] PCP - General Family Medicine 03/19/19 documented as of this encounter
--- OUTSIDE RECORDS SUMMARY | 2023-12-25 20:08 | External Medical Summary | Summary of Care ---
Author Name Unknown Organization [facility] Address [address] [place] [address] Phone [phone] Care Team Providers Care Electronic Industrial Controls Mechanic Name Role Phone Landon Quiles Primary Care Provider Reason for Visit * Reason Onset Date Comments Hospital Follow-Up 10/21/2023 [facility]O Encounter Details Date Type Department Care Team (Late st Contact Info) Description 10/21/2023 Telephone Family Practice [facility] [address] [place] [address] Laisha Vaughan RN Hospital Follow-Up ([facility]O) Allergies Active Allergy Reactions Criticality Noted Date [...] Gel Apply a thin ribbon to toothbrush. [place] twice daily in place of normal toothpaste [...] 90 Tablet 3 3 Active Nystatin-Triamcino lone 395325-0.1 UNIT/GM-% External Cream (Mycolog)Indicatio ns:Tinea cruris APPLY [...] 3 01/01/20 24 Active GNP UltiCare Pen [place] 32G X 4 MM (Insulin Pen Needle) [...] A1c goal of less than 8.0% ([facility]LY [facility]) Use as directed. 6 Each 3 4 Active Amoxicillin 500 MG Oral Capsule (Amoxil) take 1 capsule (500 mg) by oral route 2 times per day. Start this 2 days before tooth extraction. 14 Capsule 4 Active Additional Information Patient not taking.Reported on 08/22/2023 BD Cobol Programmer Tray 27G X 1/2" 1 ML Kit [...] mRNA, LNP-s, No Pre serve, 2-Dose Series ([employer]) 12/18/2020,06/20/2020,05/30/2020 COVID-19, LNP-s, No Preserve , Marshal-sucrose, Ages 12+ ([employer]) 06/25/2021 Covid-19, Mrna, Lnp-s, Pf, B ivalent, 30 Mcg, IM, 12 yrs and above ([employer]) 12/31/2021 H1N1 2009 Influenza, IM 02/24/2009 [...] encounter Miscellaneous Notes * Telephone Encounter - Laisha Vaughan RN - 10/21/2023 9:24 AM EDT Transitions of Care Note Reason for Referral:Recent Admission Phone visit for follow up: [facility]O Admitted to: [facility], Date: 10/14/2023 Discharged to: Home, Date: 10/20/2023 Diagnosis driving hospitalization: Cervical spinal stenosis with myelopathy Source/Contact: Patient SUBJECTIVE Consent: Verbal consent for review of hospital discharge: Yes REVIEW OF SYSTEMS Patient/Other Reports: Current patient/caregiver problems or concerns: Patient states that she is doing pretty good. She reports that pain is 5/10. Patient also reports some weakness, numbness and tingling to left upper and lower extremities. Patient states that this has been present and has not gotten any better or worse. CV: Fatigue- with exertion Pulmonary: Denies problems CPAP- uses at bedtime Chills/Sweats/Fever:Denies chills/sweats Denies fever Appetite:Denies problems such as nausea, vomiting, burning, decreased appetite Current diet: regular Bowel: denies problems date of last BM: 10/19/2023 Bladder: denies problems Wound (If applicable): Site-anterior neck, Drainage-denies, Odor-denies, and Color-no redness noted, bandage present Pain:Location- neck Intensity- 5 (Scale 0-10) Tramadol and oxycodone-decreases pain Current pain management effective: Yes Sleep:Denies problems FUNCTIONAL STATUS: ADL'S: Needs Assistance With:Bathing and Dressing IADL'S: Needs Assistance With:Grocery Shopping, Cooking food, and Routine Housework Cognitive and Mental Health: denies problems, alert and oriented x 3, and able to communicate, understand instructions, process information. MEDICATION RECONCILIATION Medications: Discharge med list reviewed with patient or caregiver Reviewed and updated all prescription and OTC medications in Epic New medication(s) filled since hospitalization- Oxycodone, Tramadol Discontinued medication(s) since hospitalization- methotrexate Reports all medications taken as prescribed. Denies side effects ASSESSMENT Medication Risk Assessment: Taking sedatives/hypnotics/narcotic analgesics and increased fall risk Did patient fail outpatient treatment? No Discharge instructions available for review? Yes PLAN Symptom Monitoring Interventions:Member/caregiver education - signs and symptoms to contact PrimaryCare (DO NOT DELETE-Three murphy symptoms patient is to report to PCP) 1. Fever/chills 2. Pain that is not controlled by current medications 3. Increased redness/swelling/drainage from incision site Auto Air Conditioning InstallerPunch Press Operator Helper of Care interventions/Action Plan: Medication reconciliation and 5 - 7 day follow-up with PCP in place - Date: 10/24/2023 Educated on role of SOLO completed with patient/caregiver. Educated patient/caregiver on patient right to have input on SOLO plan of care. Verification of Home Health/DME if indicated: YES [facility], PT/OT to start 10/21/2023 Stairlift, electric scooter, cane, CPAP, rollator Identified Care Gaps: Yes Care Gaps closed this call: Appointment made or confirmed, Life planning discussed, Medication adherence, Medication optimization, Plan of care optimization, Post discharge appointment, Services in place, and Safety and self care issues addressed Re-evaluation of Plan of Care and progress towards goals achievement: Patient education this visit: Verbal, see above Plan to follow-up as previously scheduled, instructed to call Primary Care Provider with change in symptoms or as needed before next follow-up, discharge needs met, verbalizes understanding and agrees with plan. Laisha Vaughan RN documented in this encounter Plan of Treatment Upcoming Encounters Date Type Department Care Team (Late st Contact Info) Description 10/24/2023 11:00 AM EDT [address] [place] [address] Landon Quiles, DO 132 [facility] [place] [address] 10/28/2023 1:00 PM EDT Anticoagulation Pharmacy, [facility] [place] [facility] [place] [address] Pharmacist2, [facility] 200 [facility] [place] [address] 10/31/2023 11:00 AM EDT [facility] 132 [facility] [place] [address] 11/01/2023 1:20 PM EDT Office Visit Rheumatology [address] [place] [address] Dayday Montana MD [address] [place] [address] [place] [address] 11/04/2023 1:30 PM EDT Office Visit Cardiology, [facility] 132 [employer] [place] [address] Catalina Schafer CRNP 400 [facility] [place] [address] 11/16/2023 11:45 AM EDT Office Visit Urology, [facility] 132 [facility] [place] [address] Faustino Cárdenas MD [address] [place] [address] [place] [address] 11/25/2023 1:00 PM EDT Immunization/Injection Hematology/Oncology Treatment, [place] [address] [place] [phone] Sarai, Chair [address] [facility] 200 [facility] [place] [address] 11/30/2023 1:00 PM EDT Office Visit Hematology/Oncology [facility] 200 [facility] [place] [phone] Daniella [facility]ccord CRNP [facility] [place] [address] 12/07/2023 1:00 PM EDT Office Visit Pharmacy, [facility] 200 [facility] [place] [address] Pharmacist2, [facility] 200 [facility] [place] [address] 12/07/2023 1:40 PM EDT Anticoagulation Pharmacy, [facility] 200 [facility] [address] Pharmacist2, [facility] 200 [facility] [address] 12/27/2023 3:30 PM EDT Office Visit Gastroenterology, [facility] [address] [place] [address] Franchesca Almaraz CRNP [address] [place] [address] 01/10/2024 1:00 PM EST Office Visit [facility] [address] [place] [address] Landon Quiles DO [address] [place] [address] 05/11/2024 1:40 PM EST Office Visit [facility] [address] [place] [address] Jackeline Diaz CRNP [address] [place] [address] 09/17/2024 11:40 AM EDT [facility] [address] [place] [address] Bernadette Zuniga, [address] [place] [address] Health Maintenance Due Date Last Done Comments [...] this encounter Medical Devices Implanted Type Area Buyer Internship Device Identifier Shelf Expiration Date Model / Serial / Lot Graft Flex Hd 6 X 16cm [id number] - [id number] Implanted:Qty : 1 on 09/22/2010 at [place] [facility] Tissue - Human Left: Breast MUSCULOSKELETAL TRANSPLANT FND 04/28/2013 [id number] / [id number] / Graft Flex Hd 6 X 16cm [id number] - [id number] Implanted:Qty : 1 on 09/22/2010 at [place] [facility] Tissue - Human Right: Chest MUSCULOSKELETAL TRANSPLANT FND 04/28/2013 [id number] / [id number] / Mediport Pwr Isp 8fr [id number] - [id number] Implanted:Qty : 1 on 09/22/2010 at [place] [facility] Right: Chest CR BARD : ACCESS SYSTEMS 07/13/2012 [id number] / / [id number] Breast Implant [id number] Saline - [id number] Implanted:Qty : 1 on 09/22/2010 at [place] [facility] Right: Breast MENTOR EVA 12/13/2013 [id number] / [id number] Breast Implant 354-2515 Saline - [id number] Implanted:Qty : 1 on 09/22/2010 at [place] [facility] Left: Breast MENTOR EVA 07/13/2014 354-2515 / [id number] Lens Intraoc 16.5 - [id number] - [id number] Implanted:Qty : 1 on 02/20/2016 by Lincoln Garces MD at OR [facility] Left: Eye BAUSCH & LOMB 08/04/2020 [id number] / [id number] Lens Intraoc 15.5 - [id number] - [id number] Implanted:Qty : 1 on 03/09/2016 by Lincoln Garces MD at OR [facility] Right: Eye BAUSCH & LOMB 12/04/2017 [id number] / [id number] / documented as of this encounter Advance [...] and were consensually agreed upon. Care Teams Electronic Industrial Controls Mechanic Relationship Specialty Start Date End Date Landon Quiles DO [address] [place] [address] PCP - General Family Medicine 03/19/19 documented as of this encounter
--- OUTSIDE RECORDS SUMMARY | 2023-12-25 20:08 | External Medical Summary | Summary of Care ---
Author Name Unknown Organization [facility] Address [address] [place] [address] Phone [phone] Care Team Providers Care National Service Officer Name Role Phone Lalo Quileschristian Callejasray Primary Care Provider Reason for Visit * Reason Onset Date Comments Appointment 10/13/2023 Encounter Details Date Type Department Care Team (Late st Contact Info) Description 10/13/2023 Telephone Hematology/Oncology Treatment, [place] [address] [place] [address] Services, Scheduling [address] [place] [address] Appointment Allergies Active Allergy Reactions Criticality Noted [...] as of this encounter (statuses as of 10/19/2023) Medications Medication Sig Dispensed Refills Start Date [...] Gel Apply a thin ribbon to toothbrush. [place] twice daily in place of normal toothpaste [...] 90 Tablet 3 3 Active Nystatin-Triamcino lone 178638-5.1 UNIT/GM-% External Cream (Mycolog)Indicatio ns:Tinea cruris APPLY [...] 3 01/01/20 24 Active GNP UltiCare Pen [place] 32G X 4 MM (Insulin Pen Needle) [...] A1c goal of less than 8.0% ([facility]) Use as directed. 6 Each 3 4 Active Amoxicillin 500 MG Oral Capsule (Amoxil) take 1 capsule (500 mg) by oral route 2 times per day. Start this 2 days before tooth extraction. 14 Capsule 4 Active Additional Information Patient not taking.Reported on 08/22/2023 BD Leather Cutter Tray 27G X 1/2" 1 ML Kit [...] as of this encounter (statuses as of 10/19/2023) Active Problems Problem Noted Date Diagnosed Date [...] as of this encounter (statuses as of 10/19/2023) Resolved Problems Problem Noted Date Diagnosed Date [...] as of this encounter (statuses as of 10/19/2023) Immunizations Name Administration Dates Next Due COVID-19 mRNA, LNP-s, No Pre serve, 2-Dose Series (CLASEMOVIL) 12/18/2020,06/20/2020,05/30/2020 COVID-19, LNP-s, No Preserve , Marshal-sucrose, Ages 12+ (Pfizer) 06/25/2021 Covid-19, Mrna, Lnp-s, Pf, B ivalent, 30 Mcg, IM, 12 yrs and above (CLASEMOVIL) 12/31/2021 H1N1 2009 Influenza, IM 02/24/2009 Hepatitis [...] EDT Spoke with pt. Currently admitted at [facility]. Will be there at least through 10/18. [...] to mailbox being full Also sent a [employer] message Will call pt later today * [...] from 10/03/23. Please call her back at [phone] Thanks documented in this encounter Plan of Treatment Upcoming Encounters Date Type Department Care Team (Late st Contact Info) Description 10/24/2023 11:00 AM EDT Office Visit Family Practice [facility] [address] [facility] [place] [address] Landon Quiles, [address] [facility] [place] [address] 10/28/2023 1:00 PM EDT Anticoagulation Pharmacy, [facility] [address] [facility] [place] [address] Pharmacist2, [facility] [address] [facility] [place] [address] 10/31/2023 11:00 AM EDT Imaging Radiology [facility] [address] [facility] [place] [address] 11/01/2023 1:20 PM EDT Office Visit Rheumatology [address] [place] [address] Dayday [place] MD [facility] [address] 11/04/2023 1:30 PM EDT Office Visit Cardiology, [facility] [address] [facility] [place] [address] Catalina Schafer CRNP [address] [place] [address] 11/16/2023 11:45 AM EDT Office Visit Urology, [facility] [address] [facility] [place] [address] Faustino Cárdenas MD [address] [place] [address] 11/25/2023 1:00 PM EDT Immunization/Injection Hematology/Oncology Treatment, [place] [address] [facility] [place] [phone] Park, Chair [address] [place] [address] 11/30/2023 1:00 PM EDT Office Visit Hematology/Oncology [facility] [address] [facility] [place] [phone] Daniella Mccord CRNP [address] [facility] [place] [address] 12/07/2023 1:00 PM EDT Office Visit Pharmacy, [facility] [address] [facility] [place] [address] Pharmacist2, [facility] [address] [facility] [place] [address] 12/07/2023 1:40 PM EDT Anticoagulation Pharmacy, [facility] [address] [facility] [place] [address] Pharmacist2, [facility] [address] [facility] [place] [address] 12/27/2023 3:30 PM EDT Office Visit Gastroenterology, [facility] [address] [place] [address] Franchesca Almaraz CRNP [address] [place] [address] 01/10/2024 1:00 PM EST Office Visit Family Practice [facility] [address] [place] [address] Landon Quiles, [address] [place] [address] 05/11/2024 1:40 PM EST Office Visit Family Practice [facility] [address] [place] [address] Jackeline Diaz CRNP [address] [place] [address] 09/17/2024 11:40 AM EDT Office Visit Sleep Disorders Ctr [facility] [address] [place] [phone] Bernadette Zuniga DO [address] [place] [address] Health Maintenance Due Date Last Done Comments [...] encounter Medical Devices Implanted Type Area Director Experimental Medicine Device Identifier Shelf Expiration Date Model / Serial / Lot Graft Flex Hd 6 X 16cm [id number] - [id number] Implanted:Qty : 1 on 09/22/2010 at [place] [facility] Tissue - Human Left: Breast [employer] FND 04/28/2013 [id number] / [id number] / Graft Flex Hd 6 X 16cm [id number] - [id number] Implanted:Qty : 1 on 09/22/2010 at [place] [facility] [place] Tissue - Human Right: Chest [employer] FND 04/28/2013 [id number] / [id number] / Mediport Pwr Isp 8fr [id number] - [id number] Implanted:Qty : 1 on 09/22/2010 at [place] [facility] [place] Right: Chest CR BARD : [employer] 07/13/2012 [id number] / / [id number] Breast Implant 354-2515 Saline - [id number] Implanted:Qty : 1 on 09/22/2010 at [place] [facility] [place] Right: Breast MENTOR EVA 12/13/2013 [id number] / [id number] Breast Implant 354-2515 Saline - [id number] Implanted:Qty : 1 on 09/22/2010 at [place] [facility] [place] Left: Breast MENT[employer] EVA 07/13/2014 [id number] / [id number] Lens Intraoc 16.5 - [id number] - [id number] Implanted:Qty : 1 on 02/20/2016 by Lincoln Garces MD at OR [facility] Left: Eye BAUSCH [employer] LOMB 08/04/2020 [id number] / [id number] / [id number] Lens Intraoc 15.5 - [id number] - [id number] Implanted:Qty : 1 on 03/09/2016 by Lincoln Garces MD at OR [facility] Right: Eye BAUSCH & LOMB 12/04/2017 [id number] / [id number] / documented as of this encounter Advance [...] and were consensually agreed upon. Care Teams National Service Officer Relationship Specialty Start Date End Date Landon Quiles DO [address] [place] [address] PCP - General Family Medicine 03/19/19 documented as of this encounter
[2023-12-25 20:27] LABS: iSTAT Creatinine 0.8 mg/dl (0.6-1.3); iSTAT Hemoglobin 10.5 g/dl (12.0-16.0); iSTAT Ionized Calcium 1.19 mmol/l (1.12-1.32); iSTAT Potassium 4.1 mmol/L (3.3-5.0)
[2023-12-25 20:32] LABS: Basophils # (auto) 0.08 K/uL (0.00-0.20); Basophils % (auto) 0.6 %; Eosinophils % (auto) 0.7 %; Hematocrit (blood only) 33.9 % (37.0-47.0); Hemoglobin 10.4 g/dl (12.0-16.0); Immature Granulocytes # (auto) 0.16 K/uL (0.01-0.20); Immature Granulocytes % (auto) 1.2 %; Lymphocytes % (auto) 13.8 %; Mean Corpuscular Hemoglobin 29.6 pg (25.0-34.0); Mean Corpuscular Hgb Conc 30.7 g/dL (32.0-36.0); Mean Corpuscular Volume 96.6 fL (80.0-100.0); Mean Platelet Volume 10.5 fL (9.4-12.4); Monocytes % (auto) 5.8 %; Neutrophils # (auto) 10.71 K/uL (1.40-6.50); Neutrophils % (auto) 77.9 %; Platelet Count 335 K/uL (130-400); RDW Coefficient of Variation 15.5 % (11.5-14.5); RDW Standard Deviation 54.6 fL (36.4-46.3); Red Blood Count 3.51 M/uL (4.20-5.40); White Blood Count 13.75 K/ul (4.8-10.8)
[2023-12-25] MEDS ORDERED: SODIUM CHLORIDE 0.9% 100 ML IV PRN (20:37)
--- NOTE | 2023-12-25 20:45 | Emergency Department Note ---
Impression & Plan Acute upper gastrointestinal bleeding, Hematemesis, Leukocytosis, Anemia, Supratherapeutic INR ED Provider Note HISTORY OF PRESENT ILLNESS: Patient is a 68-year-old female presenting with hematemesis. Patient reports she has not felt well throughout the day today. Reports that this afternoon she started feeling significantly nauseous and took a Zofran. Reports that this evening she thought that she could tolerate eating some toast and was going to make some when she suddenly felt very nauseous again and went to the bathroom and started vomiting up blood. She denies any abdominal pain. Reports she got very clammy and diaphoretic, but took her temperature and she was not febrile. She denies any chest pain or shortness of breath. She is on Coumadin for history of DVT and PEs. Her last dose of Coumadin was yesterday. She has not taken her dose today. She denies any recent discoloration, but states she has had persistent diarrhea recently. Denies any fevers. Patient actively vomiting up bright red blood and clots on my assessment. Patient denies any recent vomiting in the last few days. Patient reports she has previously had endoscopies but has never been told she has esophageal varices. ROS: as above PHYSICAL EXAM: Constitutional: Patient appears in mild distress. Patient is diaphoretic and pale in appearance. Actively vomiting up blood and blood clots. HENT: Head: Normocephalic and atraumatic. Eyes: EOMI, PERRL Mouth/Throat: Mucous membranes moist. Neck: Trachea midline. Neck supple. Cardiovascular: Tachycardic with regular rhythm. No murmurs, rubs or gallops. Intact distal pulses. Pulmonary/Chest: No respiratory distress. Breath sounds clear and equal bilaterally. No wheezes or rales. Abdominal: Abdomen soft, no tenderness, rebound or guarding. Musculoskeletal: No edema, tenderness or deformity noted. Skin: Warm and dry. Psychiatric: Appropriate mood and affect for situation. Neurological: Alert and keenly responsive. CN II-XII grossly intact, moving all extremities equally and fully. MDM: - Vitals signs showed tachycardia. Given patient's active hematemesis and concern for upper GI bleed, ordered bolus of Protonix and Protonix drip. Also ordered a dose of 10 mg IV vitamin K for reversal of her Coumadin in the setting of active hemorrhage. Given 2 g IV Rocephin in setting of upper GI bleed. - History obtained via patient. History as above. - Chronic conditions affecting care: DVT/PE; atrial tachycardia; DM-2; GERD; anxiety/depression; breast cancer - Differential diagnoses include, but are not limited to: Erlinda-Underwood tear; bleeding peptic ulcer; bleeding esophageal varices; gastritis; esophagitis - Order placed for continuous cardiac monitoring. At this time, monitor showed rate of 111 bpm with normal sinus rhythm, per my interpretation. - External medical records reviewed. EGD note dated 01/16/2019 was reviewed. Patient was noted to have a normal esophagus. Noted to have some moderate inflammation and edema of the entire stomach. No varices were noted at that time. - EKG interpreted by myself showed normal sinus rhythm. Rate tachycardic at 111 bpm. QT 384. No acute ischemic changes. Noted to have a bifascicular block. - Laboratory workup interpreted by myself showed leukocytosis (WBC 13.75); anemia (Hgb 10.4); supratherapeutic INR (2.5); hyperglycemia (glucose 299); normal troponin; normal lipase - Type and screen performed - CTA chest/abdomen/pelvis showed mild hepatomegaly and a pericardial effusion measuring 5 mm. - Discussed case with GI general practitioner, Dr. Chand, at 21:47. Recommends continued resuscitation with fluids and blood. Will plan for EGD in the morning. - Patient given 5 mg IV compazine for nausea. - Patient consented for blood. 3 units PRBC ordered, with 2 units to transfuse now. - Patient remained stable after volume resuscitation and with antiemetic medications. - Discussion was had with shelter case manager about patient's case and need for admission - Hospitalist, Dr. Denis, consulted for admission - Patient admitted to [facility] service for further evaluation and management. I have personally spent 69 minutes of critical care time in the direct management of this patient. This includes bedside care, interpretation of diagnostic studies, and testing, discussion with consultants, patient, and family members, and other required patient management activities. This 69 minutes is in excess of all separately billable procedures. ASSESSMENT AND PLAN: Diagnosis: Upper GI bleed; hematemesis; leukocytosis; anemia; supratherapeutic INR Plan: Admit Past Med/Surg History Problem List (Updated 12/25/23 @ 22:36 by Joanne Schofield MD) Supratherapeutic INR (Acute) Anemia (Acute) Leukocytosis (Acute) Hematemesis (Acute) Acute upper gastrointestinal bleeding (Acute) Sinus tachycardia PAT (paroxysmal atrial tachycardia) Myelopathy 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 follows with Dr. Shaw Medical History Seronegative polyarthritis Rheumatoid arthritis with inflammatory polyarthropathy Osteoarthritis Overactive bladder GERD (gastroesophageal reflux disease) Diabetes mellitus, type 2 Anemia Anxiety and depression Post traumatic stress disorder Peripheral neuropathy Pulmonary embolism Several years ago Hx of deep venous thrombosis Age mid-30s after fall/trauma Atrial tachycardia Follows with Dr. Shaw Sleep apnea CPAP (compliant) Asthma Uterine hyperplasia Currently on hormone therapy Morbid obesity with BMI of 40.0-44.9, adult Limb alert care status LUE restriction Gastroparesis Raynauds phenomenon History of kidney stones Degenerative disc disease Chronic kidney disease (CKD) Stage 3 Follows with Claudia Moon nephrology Neuropathy Severe legs/feet Uses assistive devices including mobilized wheelchair Fibromyalgia Hyperlipidemia Hypertension Breast cancer Invasive adenocarcinoma Dx 2010 - B/L mastectomy + chemo + radiation Restless legs syndrome Surgical History History of tooth extraction History of cataract surgery R/L Nausea and vomiting after administration of anesthetic agent History of cystoscopy Cysto, laser litho (02/19/2021): LMA#4 (iGel) at [facility] History of lithotripsy History of colonoscopy 05/20/23, MAC at [facility] History of esophagogastroduodenoscopy (EGD) History of gynecological procedure D&C, Mirena insertion (11/24/18): Grade 2 view, Glidescope#3, ETT 7.0, atraumatic elective glidescope intubation x2, 2nd attempt successful History of breast biopsy History of D&C H/O bilateral salpingo-oophorectomy H/O breast reconstruction Implants failed due to infections > subsequent removal History of carpal tunnel release R/L History of exploratory laparotomy Hx of foot surgery left History of herniorrhaphy Umbilical with mesh History of cholecystectomy History of vascular access device Mediport power port (Right chest) History of bilateral mastectomy LUE restriction Family History Brother Family history of diabetes mellitus Father Family history of diabetes mellitus Mother Family history of diabetes mellitus Other No family history of adverse response to anesthesia Social History Smoking Status: Former smoker Tobacco Type: Cigarettes Cigarettes Per Day: Quit 1984; Second Hand Exposure: Yes (hx); Do You Dip or Chew Tobacco: No; Hx Alcohol Use: No Hx Substance Use: No Preferred Language: Swedish Communication Ability: Effective Cognos Developer Required: No Beliefs That Will Affect Care: None Current Living Situation: Spouse Current Living Situation Comment: raised ranch home, stair lift , ramp in place Feels Safe at Home: Yes Assistive Devices: Cane, CPAP and Walker Allergies Allergies Allergy/AdvReac Type Severity Reaction Status Date / Time allopurinol Allergy Intermediate Unknown Verified 10/14/23 06:46 amitriptyline Allergy Intermediate Arms, leg Verified 10/14/23 06:46 swelling codeine Allergy Intermediate Pruritus, Verified 10/14/23 06:46 rash doxepin Allergy Intermediate Arms, leg Verified 10/14/23 06:46 swelling gabapentin Allergy Intermediate Arms, leg Verified 10/14/23 06:46 swelling sitagliptin Allergy Intermediate Arms, leg Verified 10/14/23 06:46 swelling mineral oil [From Vagisil] Allergy Mild Rash Verified 10/14/23 06:46 nickel Allergy Mild Rash Verified 10/14/23 06:46 potassium chloride Allergy Mild Pruritus, Verified 10/14/23 06:46 [From Klor-Con] rash resorcinol [From Vagisil] Allergy Mild Rash Verified 10/14/23 06:46 starch [From Vagisil] Allergy Mild Rash Verified 10/14/23 06:46 Tricyclic Antidepressants Allergy Unknown leg and Verified 10/14/23 14:20 and Tricy arm swelling clindamycin Allergy Unknown Verified 10/14/23 07:14 fluticasone furoate Allergy Swelling Verified 10/14/23 06:46 [From Breo Ellipta] of Lip/Tongue/Throat vilanterol Allergy Swelling Verified 10/14/23 06:46 [From Breo Ellipta] of Lip/Tongue/Throat adhesive AdvReac Intermediate Rash, Verified 10/14/23 06:46 itching (tape) dexamethasone [From Decadron] AdvReac Intermediate Tachycardia Verified 10/16/23 07:30 erythromycin base AdvReac Intermediate Severe Verified 10/14/23 06:46 stomach cramps Home Meds Home Medications Medication Instructions Recorded Confirmed aspirin 81 mg tablet,delayed 81 mg PO QAM 11/09/17 12/25/23 release atorvastatin 20 mg tablet 20 mg PO QAM 11/09/17 12/25/23 metoprolol tartrate 25 mg tablet 12.5 mg PO BIDM 11/09/17 12/25/23 potassium citrate 10 mEq (1,080 See Rx Instructions .Route .COMPLEX 11/09/17 12/25/23 mg) tablet,extended release warfarin 5 mg tablet 5 mg PO 2XWK 11/09/17 12/25/23 magnesium chloride 64 mg 128 - 192 mg PO TID 01/08/19 12/25/23 (magnesium chloride) tablet,delayed release medroxyprogesterone 10 mg tablet 10 mg PO QAM 02/13/19 12/25/23 (Provera) ropinirole 0.5 mg tablet 0.5 mg PO HS PRN Restless Leg(S) 02/13/19 12/25/23 escitalopram oxalate 20 mg tablet 20 mg PO QAM 08/27/20 12/25/23 ferrous sulfate 325 mg (65 mg 325 mg PO DAILY 08/27/20 12/25/23 iron) tablet furosemide 20 mg tablet 20 mg PO QAM Edema 08/27/20 12/25/23 leucovorin calcium 5 mg tablet 5 mg PO WK 08/27/20 12/25/23 methotrexate sodium 25 mg/mL 20 mg subcut UD 08/27/20 12/25/23 injection solution verapamil 120 mg tablet,extended 120 mg PO TID 08/27/20 12/25/23 release warfarin 5 mg tablet 7.5 mg PO 5XWK 08/27/20 12/25/23 metformin 500 mg tablet,extended 2,000 mg PO HS 01/24/21 12/25/23 release 24 hr montelukast 10 mg tablet 10 mg PO HS 01/24/21 12/25/23 [id number]-[id number] 1 tab PO QAM 01/24/21 12/25/23 tablet (Multivitamin 50 Plus tablet) vitamin B complex 1 tab PO QAM 01/24/21 12/25/23 albuterol sulfate 90 mcg/actuation 2 puff inhalation Q4H PRN Wheezing 07/10/21 12/25/23 aerosol inhaler (Ventolin HFA) biotin 10 mg tablet 10 mg PO BID 07/10/21 12/25/23 cyclosporine 0.05 % eye drops in a 1 drp ophthalmic (eye) Q12H 07/10/21 12/25/23 dropperette (Restasis) vibegron 75 mg tablet (Gemtesa) 75 mg PO QAM 07/10/21 12/25/23 bupropion HCl 150 mg 24 hr tablet, 150 mg PO QAM 09/28/23 12/25/23 extended release insulin glargine 100 unit/mL (3 10 unit subcut HS 09/28/23 12/25/23 mL) subcutaneous pen (Basaglar KwikPen U-100 Insulin) empagliflozin 25 mg tablet 25 mg PO DAILY 10/14/23 12/25/23 (Jardiance) famotidine 40 mg tablet 40 mg PO HS 10/14/23 12/25/23 fluticasone propionate 230 2 inh inhalation BID 10/14/23 12/25/23 mcg-salmeterol 21 mcg/actuation HFA inhaler (Advair HFA) lansoprazole 15 mg capsule,delayed 15 mg PO DAILY 10/14/23 12/25/23 release levalbuterol tartrate 45 1 puff inhalation Q4 PRN Wheezing 12/25/23 12/25/23 mcg/actuation aerosol inhaler semaglutide 2 mg/dose (8 mg/3 mL) 2 mg subcut WK 12/25/23 12/25/23 subcutaneous pen injector (Ozempic) sodium bicarbonate 650 mg tablet 650 mg PO AMHS 12/25/23 12/25/23 Previous Rx's Medication Instructions Recorded ondansetron 4 mg disintegrating 4 mg PO Q8H PRN nausea and 02/09/21 tablet vomiting #7 tabs oxycodone 5 mg tablet 5 mg PO Q6H PRN pain #30 tabs 10/14/23 tramadol 50 mg tablet 50 mg PO Q6H PRN pain, moderate 10/14/23 #30 tabs Results & Data (ED) Vital Signs Vital Signs - 24 hr 12/25/23 20:04 12/25/23 20:06 12/25/23 20:08 Temperature 36.7 C Temperature Source Oral Pulse Rate 124 H 117 H Pulse Rate [Left Finger] Pulse Rate from SpO2 Sensor Pulse Rhythm Regular Pulse Rhythm [Left Finger] Pulse Strength Normal Pulse Strength [Left Finger] Respiratory Rate 23 20 Respiratory Effort / Characteristics Non-Labored Respiratory Depth Normal Respiratory Pattern Regular Blood Pressure 132/65 132/65 Blood Pressure [Left Arm] Blood Pressure Mean 87 91 Blood Pressure Mean [Left Arm] Blood Pressure Position Lying Blood Pressure Position [Left Arm] Pulse Oximetry 97 Oxygen Delivery Method Room Air Sepsis Recent Fever Within 48 Hours No Sepsis New/Unexplained Change in Mental Status No Sepsis Action Taken by Nursing Physician Notified 12/25/23 20:09 12/25/23 20:11 12/25/23 20:18 Temperature Temperature Source Pulse Rate 112 H 113 H Pulse Rate [Left Finger] 113 H Pulse Rate from SpO2 Sensor 113 H Pulse Rhythm Regular Pulse Rhythm [Left Finger] Regular Pulse Strength Pulse Strength [Left Finger] Normal Respiratory Rate 16 19 18 Respiratory Effort / Characteristics Non-Labored Respiratory Depth Normal Respiratory Pattern Regular Blood Pressure Blood Pressure [Left Arm] 132/65 Blood Pressure Mean Blood Pressure Mean [Left Arm] 87 Blood Pressure Position Blood Pressure Position [Left Arm] Lying Pulse Oximetry 97 97 96 Oxygen Delivery Method Room Air Room Air Sepsis Recent Fever Within 48 Hours Sepsis New/Unexplained Change in Mental Status Sepsis Action Taken by Nursing 12/25/23 20:24 12/25/23 20:31 12/25/23 20:39 Temperature Temperature Source Pulse Rate 115 H 109 H Pulse Rate [Left Finger] Pulse Rate from SpO2 Sensor 115 H 110 H Pulse Rhythm Pulse Rhythm [Left Finger] Pulse Strength Pulse Strength [Left Finger] Respiratory Rate 19 20 Respiratory Effort / Characteristics Respiratory Depth Respiratory Pattern Blood Pressure 131/93 Blood Pressure [Left Arm] Blood Pressure Mean 101 Blood Pressure Mean [Left Arm] Blood Pressure Position Blood Pressure Position [Left Arm] Pulse Oximetry 96 96 Oxygen Delivery Method Sepsis Recent Fever Within 48 Hours Sepsis New/Unexplained Change in Mental Status Sepsis Action Taken by Nursing 12/25/23 20:45 12/25/23 20:49 12/25/23 20:50 Temperature Temperature Source Pulse Rate 114 H Pulse Rate [Left Finger] Pulse Rate from SpO2 Sensor Pulse Rhythm Pulse Rhythm [Left Finger] Pulse Strength Pulse Strength [Left Finger] Respiratory Rate Respiratory Effort / Characteristics Respiratory Depth Respiratory Pattern Blood Pressure 111/79 Blood Pressure [Left Arm] Blood Pressure Mean 88 Blood Pressure Mean [Left Arm] Blood Pressure Position Blood Pressure Position [Left Arm] Pulse Oximetry 99 Oxygen Delivery Method Room Air Sepsis Recent Fever Within 48 Hours Sepsis New/Unexplained Change in Mental Status Sepsis Action Taken by Nursing 12/25/23 20:50 12/25/23 20:50 12/25/23 20:51 Temperature Temperature Source Pulse Rate 116 H Pulse Rate [Left Finger] Pulse Rate from SpO2 Sensor 116 H Pulse Rhythm Pulse Rhythm [Left Finger] Pulse Strength Pulse Strength [Left Finger] Respiratory Rate 28 H Respiratory Effort / Characteristics Respiratory Depth Respiratory Pattern Blood Pressure 120/72 120/72 Blood Pressure [Left Arm] Blood Pressure Mean 83 83 Blood Pressure Mean [Left Arm] Blood Pressure Position Blood Pressure Position [Left Arm] Pulse Oximetry 98 Oxygen Delivery Method Sepsis Recent Fever Within 48 Hours Sepsis New/Unexplained Change in Mental Status Sepsis Action Taken by Nursing 12/25/23 20:55 12/25/23 21:00 12/25/23 21:01 Temperature Temperature Source Pulse Rate 120 H Pulse Rate [Left Finger] Pulse Rate from SpO2 Sensor 119 H Pulse Rhythm Pulse Rhythm [Left Finger] Pulse Strength Pulse Strength [Left Finger] Respiratory Rate 20 Respiratory Effort / Characteristics Respiratory Depth Respiratory Pattern Blood Pressure 124/72 135/76 Blood Pressure [Left Arm] Blood Pressure Mean 101 96 Blood Pressure Mean [Left Arm] Blood Pressure Position Blood Pressure Position [Left Arm] Pulse Oximetry 100 Oxygen Delivery Method Sepsis Recent Fever Within 48 Hours Sepsis New/Unexplained Change in Mental Status Sepsis Action Taken by Nursing 12/25/23 21:11 12/25/23 21:15 12/25/23 21:30 Temperature Temperature Source Pulse Rate 118 H 118 H Pulse Rate [Left Finger] Pulse Rate from SpO2 Sensor 119 H 118 H Pulse Rhythm Pulse Rhythm [Left Finger] Pulse Strength Pulse Strength [Left Finger] Respiratory Rate 17 14 Respiratory Effort / Characteristics Respiratory Depth Respiratory Pattern Blood Pressure 128/65 Blood Pressure [Left Arm] Blood Pressure Mean 77 Blood Pressure Mean [Left Arm] Blood Pressure Position Blood Pressure Position [Left Arm] Pulse Oximetry 99 99 Oxygen Delivery Method Room Air Sepsis Recent Fever Within 48 Hours Sepsis New/Unexplained Change in Mental Status Sepsis Action Taken by Nursing 12/25/23 21:35 12/25/23 21:35 12/25/23 21:36 Temperature Temperature Source Pulse Rate 120 H Pulse Rate [Left Finger] Pulse Rate from SpO2 Sensor 120 H Pulse Rhythm Pulse Rhythm [Left Finger] Pulse Strength Pulse Strength [Left Finger] Respiratory Rate 21 Respiratory Effort / Characteristics Respiratory Depth Respiratory Pattern Blood Pressure 127/70 127/70 Blood Pressure [Left Arm] Blood Pressure Mean 82 82 Blood Pressure Mean [Left Arm] Blood Pressure Position Blood Pressure Position [Left Arm] Pulse Oximetry 99 Oxygen Delivery Method Sepsis Recent Fever Within 48 Hours Sepsis New/Unexplained Change in Mental Status Sepsis Action Taken by Nursing 12/25/23 21:40 12/25/23 22:00 12/25/23 22:06 Temperature 37.1 C Temperature Source Oral Pulse Rate 115 H Pulse Rate [Left Finger] Pulse Rate from SpO2 Sensor 115 H Pulse Rhythm Pulse Rhythm [Left Finger] Pulse Strength Pulse Strength [Left Finger] Respiratory Rate 22 Respiratory Effort / Characteristics Respiratory Depth Respiratory Pattern Blood Pressure 139/75 Blood Pressure [Left Arm] Blood Pressure Mean 118 Blood Pressure Mean [Left Arm] Blood Pressure Position Blood Pressure Position [Left Arm] Pulse Oximetry 98 Oxygen Delivery Method Room Air Sepsis Recent Fever Within 48 Hours Sepsis New/Unexplained Change in Mental Status Sepsis Action Taken by Nursing 12/25/23 22:09 12/25/23 22:16 12/25/23 22:18 Temperature Temperature Source Pulse Rate 114 H 119 H Pulse Rate [Left Finger] Pulse Rate from SpO2 Sensor 114 H 119 H Pulse Rhythm Pulse Rhythm [Left Finger] Pulse Strength Pulse Strength [Left Finger] Respiratory Rate 13 13 Respiratory Effort / Characteristics Respiratory Depth Respiratory Pattern Blood Pressure 93/55 L Blood Pressure [Left Arm] Blood Pressure Mean 77 Blood Pressure Mean [Left Arm] Blood Pressure Position Blood Pressure Position [Left Arm] Pulse Oximetry 97 99 Oxygen Delivery Method Room Air Sepsis Recent Fever Within 48 Hours Sepsis New/Unexplained Change in Mental Status Sepsis Action Taken by Nursing 12/25/23 22:20 12/25/23 22:20 12/25/23 22:25 Temperature 37.1 C Temperature Source Oral Pulse Rate 118 H Pulse Rate [Left Finger] Pulse Rate from SpO2 Sensor Pulse Rhythm Pulse Rhythm [Left Finger] Pulse Strength Pulse Strength [Left Finger] Respiratory Rate 20 Respiratory Effort / Characteristics Respiratory Depth Respiratory Pattern Blood Pressure 128/68 128/68 108/66 Blood Pressure [Left Arm] Blood Pressure Mean 88 91 73 Blood Pressure Mean [Left Arm] Blood Pressure Position Blood Pressure Position [Left Arm] Pulse Oximetry 98 Oxygen Delivery Method Sepsis Recent Fever Within 48 Hours Sepsis New/Unexplained Change in Mental Status Sepsis Action Taken by Nursing 12/25/23 22:30 12/25/23 22:35 12/25/23 22:50 Temperature 37.0 C 36.9 C Temperature Source Oral Oral Pulse Rate 116 H 116 H Pulse Rate [Left Finger] Pulse Rate from SpO2 Sensor Pulse Rhythm Pulse Rhythm [Left Finger] Pulse Strength Pulse Strength [Left Finger] Respiratory Rate 19 24 Respiratory Effort / Characteristics Respiratory Depth Respiratory Pattern Blood Pressure 128/101 H 108/68 97/63 L Blood Pressure [Left Arm] Blood Pressure Mean 115 81 74 Blood Pressure Mean [Left Arm] Blood Pressure Position Blood Pressure Position [Left Arm] Pulse Oximetry 97 97 Oxygen Delivery Method Sepsis Recent Fever Within 48 Hours Sepsis New/Unexplained Change in Mental Status Sepsis Action Taken by Nursing 12/25/23 23:20 Temperature 36.6 C Temperature Source Oral Pulse Rate 115 H Pulse Rate [Left Finger] Pulse Rate from SpO2 Sensor Pulse Rhythm Regular Pulse Rhythm [Left Finger] Pulse Strength Normal Pulse Strength [Left Finger] Respiratory Rate 23 Respiratory Effort / Characteristics Respiratory Depth Respiratory Pattern Blood Pressure 118/47 L Blood Pressure [Left Arm] Blood Pressure Mean 70 Blood Pressure Mean [Left Arm] Blood Pressure Position Lying Blood Pressure Position [Left Arm] Pulse Oximetry 96 Oxygen Delivery Method Sepsis Recent Fever Within 48 Hours Sepsis New/Unexplained Change in Mental Status Sepsis Action Taken by Nursing Laboratory Data 12/25/23 20:05 12/25/23 20:05 Lab Results 12/25/23 12/25/23 12/25/23 Range/Units 20:05 20:15 20:39 WBC 13.75 H (4.8-10.8) K/ul RBC 3.51 L (4.20-5.40) M/uL Hgb 10.4 L (12.0-16.0) g/dl POC Hgb 10.5 L (12.0-16.0) g/dl Hct 33.9 L (37.0-47.0) % POC Hct 31 L (37-47) % MCV 96.6 (80.0-100.0) fL MCH 29.6 (25.0-34.0) pg MCHC 30.7 L (32.0-36.0) g/dL RDW Std Deviation 54.6 H (36.4-46.3) fL RDW Coeff of Maris 15.5 H (11.5-14.5) % Plt Count 335 (130-400) K/uL MPV 10.5 (9.4-12.4) fL Immature Gran % (Auto) 1.2 % Neut % (Auto) 77.9 % Lymph % (Auto) 13.8 % Vernon % (Auto) 5.8 % Eos % (Auto) 0.7 % Baso % (Auto) 0.6 % Neut # (Auto) 10.71 H (1.40-6.50) K/uL Lymph # (Auto) 1.90 (1.20-3.40) K/uL Vernon # (Auto) 0.80 H (0.11-0.59) K/uL Eos # (Auto) 0.10 (0.00-0.50) K/uL Baso # (Auto) 0.08 (0.00-0.20) K/uL Immature Gran # (Auto) 0.16 (0.01-0.20) K/uL PT 25.4 H (9.0-12.0) Seconds INR 2.5 H (0.9-1.1) POC Sodium 140 (135-144) mmol/L Sodium 138 (136-145) mmol/L POC Potassium 4.1 (3.3-5.0) mmol/L Potassium 4.1 (3.5-5.1) mmol/L POC Chloride 109 (101-112) mmol/L Chloride 110 H (98-107) mmol/L Carbon Dioxide 18 L (21-32) mmol/L POC Total CO2 16 L (24-31) mmol/L Anion Gap 10 (3-11) POC Anion Gap 20.0 (16-25) mmol/L POC BUN 19 H (7-18) mg/dl BUN 22 (6-23) mg/dl Creatinine 0.85 (0.6-1.2) mg/dl POC Creatinine 0.8 (0.6-1.3) mg/dl Est Cr Clr Drug Dosing 84.0 ml/min eGFR 75.04 BUN/Creatinine Ratio 25.9 H (10-20) Glucose 299 H (70-99(Fasting)) mg/dl POC Glucose (other) 294 H (70-99) mg/dl Calcium 8.7 (8.6-10.3) mg/dl POC Ioniz Calcium Reina 1.19 (1.12-1.32) mmol/l Magnesium 1.9 (1.7-2.4) mg/dl Total Bilirubin 0.6 (0.2-1.0) mg/dl AST 19 (13-39) U/L ALT 18 (7-52) U/L Alkaline Phosphatase 70 (34-104) U/L Troponin I High Sens 9.8 (0-14) pg/ml Total Protein 5.9 L (6.0-8.3) gm/dl Albumin 3.6 (3.4-5.0) gm/dl Globulin 2.3 L (2.5-4.0) gm/dl Albumin/Globulin Ratio 1.6 (0.9-2) Lipase 41 (11-82) U/L Procalcitonin 0.10 (0-0.5) ng/ml Blood Type A Positive Antibody Screen NEGATIVE Crossmatch See Detail Administered Medications Pantoprazole Sodium 40 mg/ (Dextrose) 100 mls @ 20 mls/hr IV Q5H JIM Stop: 01/24/24 20:59 Last Admin: 12/25/23 21:32 Dose: 8 mg/hr, 20 mls/hr Documented By: ADAN Lactated Ringer's (Lr) 1,000 mls @ 100 mls/hr IV .Q10H STA Stop: 12/26/23 08:46 Last Admin: 12/25/23 22:57 Dose: 100 mls/hr Documented By: ADAN Discontinued Medications Phytonadione 10 mg/ Dextrose 51 mls @ 102 mls/hr IV ONE ONE Stop: 12/25/23 21:03 Last Infusion: 12/25/23 21:43 Dose: Infused Documented By: Admin: 12/25/23 21:06 Dose: 102 mls/hr Documented By: ADAN Pantoprazole Sodium 80 mg/ (Dextrose) 120 mls @ 480 mls/hr IV NOW ONE Stop: 12/25/23 20:51 Last Infusion: 12/25/23 21:33 Dose: Infused Documented By: Admin: 12/25/23 21:02 Dose: 480 mls/hr Documented By: ADAN Ceftriaxone Sodium (Rocephin) 2,000 mg in 50 mls @ 100 mls/hr IV NOW STA Stop: 12/25/23 21:08 Last Infusion: 12/25/23 21:19 Dose: Infused Documented By: Admin: 12/25/23 20:47 Dose: 100 mls/hr Documented By: ADAN Prochlorperazine (Compazine) 1 mls @ 1 mls/min IV ONE ONE Stop: 12/25/23 21:36 Last Admin: 12/25/23 21:37 Dose: 1 mls/min Documented By: ADAN Ioversol (Optiray 320 125ml) 119 ml IV ONCE ONE Stop: 12/25/23 21:51 Last Admin: 12/25/23 21:51 Dose: 119 ml Documented By: EDK Imaging Data Radiologist's Impression: Abdomen/Pelvis CTA 12/25/23 21:06 Exam(s): CTA ABDOMEN + PELVIS With Contrast IV Amt: 119ML OPTIRAY 320 EXAM: CT Angiography Abdomen and Pelvis With Intravenous Contrast CLINICAL HISTORY: Anthony hematemesis. TECHNIQUE: Axial computed tomographic angiography images of the abdomen and pelvis with intravenous contrast. CTDI is 28.14 mGy and DLP is 1795.33 mGy-cm. Automated exposure control was utilized for the study. A dose lowering technique was utilized adhering to the principles of ALARA. MIP reconstructed images were created and reviewed. CONTRAST: Patient received 119ML OPTIRAY 320 of IV contrast COMPARISON: No relevant prior studies available. FINDINGS: VASCULATURE: Aorta: Mild atherosclerosis of the aorta. No aortic aneurysm or dissection. Celiac trunk and mesenteric arteries: There is mild atherosclerosis of the origin of the celiac trunk, SMA and DARLIN without significant stenosis. Renal arteries: Minimal atherosclerosis of the origin of both renal arteries. No significant stenosis. Iliac arteries: There is atherosclerosis of the bilateral common, internal and external iliac arteries without significant stenosis. Lung bases: Unremarkable. No mass. No consolidation. ABDOMEN: Liver: Mild hepatomegaly. The liver measures 17.1 cm. No mass. Gallbladder and bile ducts: Unremarkable. No calcified stones. No ductal dilation. Pancreas: Unremarkable. No ductal dilation. No mass. Spleen: Unremarkable. No splenomegaly. Adrenals: Unremarkable. No mass. Kidneys and ureters: Simple appearing bilateral renal cysts are present, no follow up is needed. The kidneys are otherwise unremarkable. No hydronephrosis. Stomach and bowel: Unremarkable. No obstruction. No mucosal thickening. PELVIS: Appendix: Normal appendix. Bladder: Unremarkable. No mass. Reproductive: Unremarkable as visualized. ABDOMEN and PELVIS: Intraperitoneal space: Unremarkable. No significant fluid collection. No free air. Bones/joints: No acute fracture. No dislocation. Soft tissues: Unremarkable. Lymph nodes: Unremarkable. No enlarged lymph nodes. IMPRESSION: 1. No aortic aneurysm or dissection. 2. Mild hepatomegaly. Electronically signed by: Dayna Mosquera MD 12/25/23 22:46 PM Chest CTA 12/25/23 21:06 Exam(s): CTA CHEST W/WO Contrast IV Amt: 119ML OPTIRAY 320 EXAM: CT Angiography Chest Without and With Intravenous Contrast CLINICAL HISTORY: Anthony hematemesis. TECHNIQUE: Axial computed tomographic angiography images of the chest without and with intravenous contrast. MIPS images were created and reviewed. CTDI is 28.14 mGy and DLP is 951.03 mGy-cm. Automated exposure control was utilized for the study. A dose lowering technique was utilized adhering to the principles of ALARA. MIP reconstructed images were created and reviewed. CONTRAST: Patient received 119ML OPTIRAY 320 of IV contrast COMPARISON: CTA chest 07/10/2021. FINDINGS: Pulmonary arteries: Unremarkable. No pulmonary embolism. Aorta: Minimal atherosclerosis. No thoracic aortic aneurysm. Great vessels of aortic arch: There is mild atherosclerosis of the origin of the left subclavian artery. Lungs: Unremarkable. No mass. No consolidation. Pleural space: Unremarkable. No significant effusion. No pneumothorax. Heart: A pericardial effusion measures up to 5 mm. Coronary artery calcifications are present. No cardiomegaly. No evidence of RV dysfunction. Bones/joints: There are degenerative changes of the spine. No acute fracture. Soft tissues: Unremarkable. Lymph nodes: Unremarkable. No enlarged lymph nodes. Other findings: . IMPRESSION: 1. No pulmonary embolus. 2. A pericardial effusion measures up to 5 mm. Electronically signed by: Dayna Mosquera MD 12/25/23 22:44 PM Discharge Plan Visit Data Chief Complaint: GI Assessment Stated Complaint: gi assessment ED Provider: Joanne Schofield Discharge Problem: Acute upper gastrointestinal bleeding, Hematemesis, Leukocytosis, Anemia, Supratherapeutic INR Forms Stand Alone Forms: [facility] Prescriptions Prescriptions: No Action ondansetron 4 mg tablet,disintegrating 4 mg PO Q8H PRN (Reason: nausea and vomiting) Qty: 7 0RF magnesium chloride 64 mg Tablet,Delayed Release (Dr/Ec) 128 - 192 mg PO TID Rx Instructions: TAKES 3 TABS-192 MG WITH BREAKFAST AND DINNER, THEN 2 TABS-128 MG AT HS. atorvastatin 20 mg Tablet 20 mg PO QAM aspirin 81 mg Tablet,Delayed Release (Dr/Ec) 81 mg PO QAM potassium citrate 10 mEq (1,080 mg) Tablet Extended Release See Rx Instructions .ROUTE .COMPLEX Rx Instructions: takes 2tablets qam/3tablets qpm warfarin 5 mg Tablet 5 mg PO 2XWK Rx Instructions: tuesday and metoprolol tartrate 25 mg Tablet 12.5 mg PO BIDM medroxyprogesterone [Provera] 10 mg Tablet 10 mg PO QAM ropinirole 0.5 mg tablet 0.5 mg PO HS PRN (Reason: Restless Leg(S)) vitamin B complex Tablet 1 tab PO QAM montelukast 10 mg tablet 10 mg PO HS metformin 500 mg tablet extended release 24 hr 2,000 mg PO HS Multivitamin 50 Plus Tablet 1 tab PO QAM verapamil 120 mg tablet extended release 120 mg PO TID methotrexate sodium 25 mg/mL solution 20 mg subcut UD Rx Instructions: PATIENT STATES SHE TAKES 0.8ML ONCE WEEKLY ON TUESDAY EVENINGS ferrous sulfate 325 mg (65 mg iron) Tablet 325 mg PO DAILY warfarin 5 mg tablet 7.5 mg PO 5XWK Rx Instructions: tuesday, tuesday, tuesday, tuesday, tuesday leucovorin calcium 5 mg tablet 5 mg PO WK Rx Instructions: ON TUESDAY MORNINGS furosemide 20 mg tablet 20 mg PO QAM escitalopram oxalate 20 mg tablet 20 mg PO QAM biotin 10 mg Tablet 10 mg PO BID albuterol sulfate [Ventolin HFA] 90 mcg/actuation Hfa Aerosol Inhaler 2 puff INHALATION Q4H PRN (Reason: Wheezing) cyclosporine [Restasis] 0.05 % Dropperette 1 drp OPHTHALMIC (EYE) Q12H Gemtesa 75 mg tablet 75 mg PO QAM bupropion HCl 150 mg Tablet Extended Release 24 Hr 150 mg PO QAM insulin glargine [Basaglar KwikPen U-100 Insulin] 100 unit/mL (3 mL) Insulin Pen 10 unit SUBCUT HS famotidine 40 mg tablet 40 mg PO HS lansoprazole 15 mg capsule,delayed release(DR/EC) 15 mg PO DAILY fluticasone propion-salmeterol [Advair HFA] 230-21 mcg/actuation HFA aerosol inhaler 2 inh INHALATION BID Jardiance 25 mg tablet 25 mg PO DAILY tramadol 50 mg tablet 50 mg PO Q6H PRN (Reason: pain, moderate) Qty: 30 0RF oxycodone 5 mg tablet 5 mg PO Q6H PRN (Reason: pain) Qty: 30 0RF Ozempic 2 mg/dose (8 mg/3 mL) pen injector 2 mg SUBCUT WK Rx Instructions: FRIDAYS sodium bicarbonate 650 mg Tablet 650 mg PO AMHS levalbuterol tartrate 45 mcg/actuation HFA aerosol inhaler 1 puff INHALATION Q4 PRN (Reason: Wheezing) Referrals Referrals: Landon Quiles DO [Primary Care Provider] -
[2023-12-25] MEDS: cefTRIAXone SODIUM 2,000 MG/50 ML BAG IV STA (20:47)
[2023-12-25 20:53] LABS: Albumin Globulin Ratio 1.6 (0.9-2); Albumin Level 3.6 gm/dl (3.4-5.0); BUN Creatinine Ratio 25.9 (10-20); Bilirubin,Total 0.6 mg/dl (0.2-1.0); Calcium 8.7 mg/dl (8.6-10.3); Globulin 2.3 gm/dl (2.5-4.0); Potassium 4.1 mmol/L (3.5-5.1); Total Protein 5.9 gm/dl (6.0-8.3)
[2023-12-25 21:00] LABS: Troponin I High Sensitivity 9.8 pg/ml (0-14)
[2023-12-25] MEDS: PANTOprazole 80 MG in DEXTROSE 5% 100 ML IV ONE (21:02)
[2023-12-25] MEDS: PHYTONADIONE 10 MG in DEXTROSE 5% 50 ML IV ONE (21:06)
[2023-12-25 21:11] LABS: INR 2.5 (0.9-1.1); Prothrombin Time 25.4 Seconds (9.0-12.0)
[2023-12-25] MEDS: PANTOprazole 40 MG in DEXTROSE 5% MINI-B 100 ML IV SCH (21:32)
[2023-12-25] MEDS: PROCHLORPERAZINE 1 ML IV ONE (21:37)
[2023-12-25] MEDS: OPTIRAY 320 125ml IV ONE (21:51)
[2023-12-25] MEDS: PANTOPRAZOLE BOLUS/DRIP IV STA (22:30)
--- NOTE | 2023-12-25 22:45 | CT Scan Report ---
Exam(s): CTA CHEST W/WO Contrast IV Amt: 119ML OPTIRAY 320 EXAM: CT Angiography Chest Without and With Intravenous Contrast CLINICAL HISTORY: Anthony hematemesis. TECHNIQUE: Axial computed tomographic angiography images of the chest without and with intravenous contrast. MIPS images were created and reviewed. CTDI is 28.14 mGy and DLP is 951.03 mGy-cm. Automated exposure control was utilized for the study. A dose lowering technique was utilized adhering to the principles of ALARA. MIP reconstructed images were created and reviewed. CONTRAST: Patient received 119ML OPTIRAY 320 of IV contrast COMPARISON: CTA chest 07/10/2021. FINDINGS: Pulmonary arteries: Unremarkable. No pulmonary embolism. Aorta: Minimal atherosclerosis. No thoracic aortic aneurysm. Great vessels of aortic arch: There is mild atherosclerosis of the origin of the left subclavian artery. Lungs: Unremarkable. No mass. No consolidation. Pleural space: Unremarkable. No significant effusion. No pneumothorax. Heart: A pericardial effusion measures up to 5 mm. Coronary artery calcifications are present. No cardiomegaly. No evidence of RV dysfunction. Bones/joints: There are degenerative changes of the spine. No acute fracture. Soft tissues: Unremarkable. Lymph nodes: Unremarkable. No enlarged lymph nodes. Other findings: . IMPRESSION: 1. No pulmonary embolus. 2. A pericardial effusion measures up to 5 mm. Electronically signed by: Dayna Mosquera MD 12/25/23 22:44 PM
--- NOTE | 2023-12-25 22:47 | CT Scan Report ---
Exam(s): CTA ABDOMEN + PELVIS With Contrast IV Amt: 119ML OPTIRAY 320 EXAM: CT Angiography Abdomen and Pelvis With Intravenous Contrast CLINICAL HISTORY: Anthony hematemesis. TECHNIQUE: Axial computed tomographic angiography images of the abdomen and pelvis with intravenous contrast. CTDI is 28.14 mGy and DLP is 1795.33 mGy-cm. Automated exposure control was utilized for the study. A dose lowering technique was utilized adhering to the principles of ALARA. MIP reconstructed images were created and reviewed. CONTRAST: Patient received 119ML OPTIRAY 320 of IV contrast COMPARISON: No relevant prior studies available. FINDINGS: VASCULATURE: Aorta: Mild atherosclerosis of the aorta. No aortic aneurysm or dissection. Celiac trunk and mesenteric arteries: There is mild atherosclerosis of the origin of the celiac trunk, SMA and DARLIN without significant stenosis. Renal arteries: Minimal atherosclerosis of the origin of both renal arteries. No significant stenosis. Iliac arteries: There is atherosclerosis of the bilateral common, internal and external iliac arteries without significant stenosis. Lung bases: Unremarkable. No mass. No consolidation. ABDOMEN: Liver: Mild hepatomegaly. The liver measures 17.1 cm. No mass. Gallbladder and bile ducts: Unremarkable. No calcified stones. No ductal dilation. Pancreas: Unremarkable. No ductal dilation. No mass. Spleen: Unremarkable. No splenomegaly. Adrenals: Unremarkable. No mass. Kidneys and ureters: Simple appearing bilateral renal cysts are present, no follow up is needed. The kidneys are otherwise unremarkable. No hydronephrosis. Stomach and bowel: Unremarkable. No obstruction. No mucosal thickening. PELVIS: Appendix: Normal appendix. Bladder: Unremarkable. No mass. Reproductive: Unremarkable as visualized. ABDOMEN and PELVIS: Intraperitoneal space: Unremarkable. No significant fluid collection. No free air. Bones/joints: No acute fracture. No dislocation. Soft tissues: Unremarkable. Lymph nodes: Unremarkable. No enlarged lymph nodes. IMPRESSION: 1. No aortic aneurysm or dissection. 2. Mild hepatomegaly. Electronically signed by: Dayna Mosquera MD 12/25/23 22:46 PM
[2023-12-25 22:49] LABS: Magnesium 1.9 mg/dl (1.7-2.4)
--- NOTE | 2023-12-25 22:56 | History & Physical Report ---
Date of Service December 25, 2023 Assessment & Plan (1) Acute upper gastrointestinal bleeding: Plan: History of GERD in the setting of Coumadin coagulopathy, hx PE Acute on chronic anemia secondary to above Pericardial effusion on CT chronic diastolic heart failure (EF 55 to 60%, TTE 2023), patient on the dry side hx PSVT hypertension, BP on the lower side hyperlipidemia, on statin Rx bronchial asthma, not in acute exacerbation LORE on CPAP hx gastroparesis DM2 insulin requiring, reasonable control as of recent hemoglobin A1c of 7.2 last September 2023 left breast cancer status post surgery/BRCA1 positive mutation inflammatory polyarthritis on methotrexate fibromyalgia, RLS anxiety/mood disorder past tobacco abuse Admit to PCU given pericardial effusion and borderline BP Hold aspirin and Coumadin for now IV PPI Follow H&H, transfuse PRBC if hemoglobin less than 7 and or for symptomatic anemia GI consult re: UGIB (ED provider already in touch with Dr. Chand.) N.p.o. in anticipation of endoscopy IVF, continue low-dose metoprolol, hold verapamil for now given borderline BP TTE re: pericardial effusion on CT Cardiology consult contingent on TTE results Basal bolus insulin adjusted for n.p.o. status, ISS BG goal 1 10-1 40, update hemoglobin A1c DVT prophylaxis. SCDs re: GI bleed Full code Text document was generated using [employer] voice recognition software. It may contain grammatical or spelling errors. Kindly contact undersigned for clarification of any documentation item in question. History of Present Illness Chief Complaint: Hematemesis Primary Care Provider: Landon Quiles DO History obtained from patient, family, and records. Medical history significant for chronic diastolic heart failure (EF 55 to 60%, TTE 2023), PSVT, hypertension, hyperlipidemia, bronchial asthma, LORE on CPAP, PE on Coumadin, GERD, gastroparesis, chronic diarrhea, DM2 insulin requiring, left breast cancer status post surgery, BRCA1 positive mutation, chronic anemia (baseline hemoglobin of 11), inflammatory polyarthritis on methotrexate, fibromyalgia, RLS, anxiety/mood disorder, past tobacco abuse. Last confinement October 2023 under orthopedic spine service for cervical decompression for cervical myeloradiculopathy. Postop reaction to Decadron. Patient not feeling well today. Sinus congestion. Patient had nausea followed by hematemesis. No abdominal pain, chest pain. Denies black/bloody stools. Usual diarrhea symptoms. Exertional SOB as per patient. No cough symptoms. Denies headache symptoms. Denies OTC NSAID intake. Patient brought to ER for evaluation. IV Protonix, vitamin K, and 1 unit PRBC administered at the ER. Medical History as above 2019 EGD gastritis Surgical History : Breast reconstruction, carpal tunnel surgery, cystoscopy, dental surgery, skin abscess drainage, ex lap, left foot surgery, vascular proce dures, modified radical mastectomy, cataract surgery, MONTEZ/BSO, cholecystectomy, umbilical hernia repair Family History : Asthma, breast cancer, ovarian cancer, bone cancer, heart disease Personal/Social history : Past tobacco abuse, no EtOH intake, retired [employer] and [employer] employee Allergies Allergy/AdvReac Type Severity Reaction Status Date / Time allopurinol Allergy Intermediate Unknown Verified 10/14/23 06:46 amitriptyline Allergy Intermediate Arms, leg Verified 10/14/23 06:46 swelling codeine Allergy Intermediate Pruritus, Verified 10/14/23 06:46 rash doxepin Allergy Intermediate Arms, leg Verified 10/14/23 06:46 swelling gabapentin Allergy Intermediate Arms, leg Verified 10/14/23 06:46 swelling sitagliptin Allergy Intermediate Arms, leg Verified 10/14/23 06:46 swelling mineral oil [From Vagisil] Allergy Mild Rash Verified 10/14/23 06:46 nickel Allergy Mild Rash Verified 10/14/23 06:46 potassium chloride Allergy Mild Pruritus, Verified 10/14/23 06:46 [From Klor-Con] rash resorcinol [From Vagisil] Allergy Mild Rash Verified 10/14/23 06:46 starch [From Vagisil] Allergy Mild Rash Verified 10/14/23 06:46 Tricyclic Antidepressants Allergy Unknown leg and Verified 10/14/23 14:20 and Tricy arm swelling clindamycin Allergy Unknown Verified 10/14/23 07:14 fluticasone furoate Allergy Swelling Verified 10/14/23 06:46 [From Breo Ellipta] of Lip/Tongue/Throat vilanterol Allergy Swelling Verified 10/14/23 06:46 [From Breo Ellipta] of Lip/Tongue/Throat adhesive AdvReac Intermediate Rash, Verified 10/14/23 06:46 itching (tape) dexamethasone [From Decadron] AdvReac Intermediate Tachycardia Verified 10/16/23 07:30 erythromycin base AdvReac Intermediate Severe Verified 10/14/23 06:46 stomach cramps Home Medications Medication Instructions Recorded Confirmed Type aspirin 81 mg tablet,delayed 81 mg PO QAM 11/09/17 12/25/23 History release atorvastatin 20 mg tablet 20 mg PO QAM 11/09/17 12/25/23 History metoprolol tartrate 25 mg tablet 12.5 mg PO BIDM 11/09/17 12/25/23 History potassium citrate 10 mEq (1,080 See Rx Instructions .Route .COMPLEX 11/09/17 12/25/23 History mg) tablet,extended release warfarin 5 mg tablet 5 mg PO 2XWK 11/09/17 12/25/23 History magnesium chloride 64 mg 128 - 192 mg PO TID 01/08/19 12/25/23 History (magnesium chloride) tablet,delayed release medroxyprogesterone 10 mg tablet 10 mg PO QAM 02/13/19 12/25/23 History (Provera) ropinirole 0.5 mg tablet 0.5 mg PO HS PRN Restless Leg(S) 02/13/19 12/25/23 History escitalopram oxalate 20 mg tablet 20 mg PO QAM 08/27/20 12/25/23 History ferrous sulfate 325 mg (65 mg 325 mg PO DAILY 08/27/20 12/25/23 History iron) tablet furosemide 20 mg tablet 20 mg PO QAM Edema 08/27/20 12/25/23 History leucovorin calcium 5 mg tablet 5 mg PO WK 08/27/20 12/25/23 History methotrexate sodium 25 mg/mL 20 mg subcut UD 08/27/20 12/25/23 History injection solution verapamil 120 mg tablet,extended 120 mg PO TID 08/27/20 12/25/23 History release warfarin 5 mg tablet 7.5 mg PO 5XWK 08/27/20 12/25/23 History metformin 500 mg tablet,extended 2,000 mg PO HS 01/24/21 12/25/23 History release 24 hr montelukast 10 mg tablet 10 mg PO HS 01/24/21 12/25/23 History pszviizyjpyb-exfmxxwn-faopid 1 tab PO QAM 01/24/21 12/25/23 History tablet (Multivitamin 50 Plus tablet) vitamin B complex 1 tab PO QAM 01/24/21 12/25/23 History ondansetron 4 mg disintegrating 4 mg PO Q8H PRN nausea and 02/09/21 12/25/23 Rx tablet vomiting #7 tabs albuterol sulfate 90 mcg/actuation 2 puff inhalation Q4H PRN Wheezing 07/10/21 12/25/23 History aerosol inhaler (Ventolin HFA) biotin 10 mg tablet 10 mg PO BID 07/10/21 12/25/23 History cyclosporine 0.05 % eye drops in a 1 drp ophthalmic (eye) Q12H 07/10/21 12/25/23 History dropperette (Restasis) vibegron 75 mg tablet (Gemtesa) 75 mg PO QAM 07/10/21 12/25/23 History bupropion HCl 150 mg 24 hr tablet, 150 mg PO QAM 09/28/23 12/25/23 History extended release insulin glargine 100 unit/mL (3 10 unit subcut HS 09/28/23 12/25/23 History mL) subcutaneous pen (Basaglar KwikPen U-100 Insulin) empagliflozin 25 mg tablet 25 mg PO DAILY 10/14/23 12/25/23 History (Jardiance) famotidine 40 mg tablet 40 mg PO HS 10/14/23 12/25/23 History fluticasone propionate 230 2 inh inhalation BID 10/14/23 12/25/23 History mcg-salmeterol 21 mcg/actuation HFA inhaler (Advair HFA) lansoprazole 15 mg capsule,delayed 15 mg PO DAILY 10/14/23 12/25/23 History release oxycodone 5 mg tablet 5 mg PO Q6H PRN pain #30 tabs 10/14/23 12/25/23 Rx tramadol 50 mg tablet 50 mg PO Q6H PRN pain, moderate 10/14/23 12/25/23 Rx #30 tabs levalbuterol tartrate 45 1 puff inhalation Q4 PRN Wheezing 12/25/23 12/25/23 History mcg/actuation aerosol inhaler semaglutide 2 mg/dose (8 mg/3 mL) 2 mg subcut WK 12/25/23 12/25/23 History subcutaneous pen injector (Ozempic) sodium bicarbonate 650 mg tablet 650 mg PO AMHS 12/25/23 12/25/23 History Past Med/Surg History Problem List (Updated 12/25/23 @ 22:36 by Joanne Schofield MD) Supratherapeutic INR (Acute) Anemia (Acute) Leukocytosis (Acute) Hematemesis (Acute) Acute upper gastrointestinal bleeding (Acute) Sinus tachycardia PAT (paroxysmal atrial tachycardia) Myelopathy 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 follows with Dr. Shaw Medical History Seronegative polyarthritis Rheumatoid arthritis with inflammatory polyarthropathy Osteoarthritis Overactive bladder GERD (gastroesophageal reflux disease) Diabetes mellitus, type 2 Anemia Anxiety and depression Post traumatic stress disorder Peripheral neuropathy Pulmonary embolism Several years ago Hx of deep venous thrombosis Age mid-30s after fall/trauma Atrial tachycardia Follows with Dr. Shaw Sleep apnea CPAP (compliant) Asthma Uterine hyperplasia Currently on hormone therapy Morbid obesity with BMI of 40.0-44.9, adult Limb alert care status LUE restriction Gastroparesis Raynauds phenomenon History of kidney stones Degenerative disc disease Chronic kidney disease (CKD) Stage 3 Follows with [facility] nephrology Neuropathy Severe legs/feet Uses assistive devices including mobilized wheelchair Fibromyalgia Hyperlipidemia Hypertension Breast cancer Invasive adenocarcinoma Dx 2010 - B/L mastectomy + chemo + radiation Restless legs syndrome Surgical History History of tooth extraction History of cataract surgery R/L Nausea and vomiting after administration of anesthetic agent History of cystoscopy Cysto, laser litho (02/19/2021): LMA#4 (iGel) at [facility] History of lithotripsy History of colonoscopy 05/20/23, MAC at [facility] History of esophagogastroduodenoscopy (EGD) History of gynecological procedure D&C, Mirena insertion (11/24/18): Grade 2 view, Glidescope#3, ETT 7.0, atraumatic elective glidescope intubation x2, 2nd attempt successful History of breast biopsy History of D&C H/O bilateral salpingo-oophorectomy H/O breast reconstruction Implants failed due to infections > subsequent removal History of carpal tunnel release R/L History of exploratory laparotomy Hx of foot surgery left History of herniorrhaphy Umbilical with mesh History of cholecystectomy History of vascular access device Mediport power port (Right chest) History of bilateral mastectomy LUE restriction Family History Brother Family history of diabetes mellitus Father Family history of diabetes mellitus Mother Family history of diabetes mellitus Other No family history of adverse response to anesthesia Social History Smoking Status: Former smoker Tobacco Type: Cigarettes Cigarettes Per Day: Quit 1984; Smoking End Date: 1984; Second Hand Exposure: Yes (hx); Do You Dip or Chew Tobacco: No; Hx Alcohol Use: No Hx Substance Use: No Preferred Language: [place] Rican Communication Ability: Effective Practice Lead Required: No Beliefs That Will Affect Care: None Current Living Situation: Spouse Current Living Situation Comment: raised ranch home, stair lift , ramp in place Other Information That Helps Us Care for You: No Feels Safe at Home: Yes Safety Concerns: Feels Safe At This Time Assistive Devices: Cane, CPAP, Scooter/Electric Scooter and Walker Assistive Devices Comment: brought cane Review of Systems Review of Systems: As per HPI, all other systems reviewed and negative Physical Exam Physical Exam: GENERAL: uncomfortable, morbidly obese, no respiratory distress SKIN: Pallor, warm HEENT: Pale palpebral conjunctivae, no ptosis, dry buccal mucosa NECK : Supple, short neck, no tenderness CHEST : Decreased breath sounds, no tenderness HEART : Tachycardic, no obvious murmurs ABDOMEN: Some distention, nontender EXTREMITIES : Minimal LE swelling, no LE tenderness, no other conspicuous deformities noted NEUROLOGIC : Coherent, no facial asymmetry, no other gross focality Results & Data Results & Data Vital Signs (Past 12 Hours) Vital Signs Temp Pulse Pulse Resp BP BP Pulse Ox 12/25/23 22:50 36.9 C 116 H 24 97/63 L 97 12/25/23 22:35 37.0 C 116 H 19 108/68 97 12/25/23 22:30 128/101 H 12/25/23 22:25 108/66 12/25/23 22:20 128/68 12/25/23 22:20 37.1 C 118 H 20 128/68 98 12/25/23 22:18 119 H 13 99 12/25/23 22:16 93/55 L 12/25/23 22:09 114 H 13 97 12/25/23 22:06 115 H 22 98 12/25/23 22:00 37.1 C 12/25/23 21:40 139/75 12/25/23 21:36 120 H 21 99 12/25/23 21:35 127/70 12/25/23 21:35 127/70 12/25/23 21:30 118 H 14 99 12/25/23 21:15 118 H 17 99 12/25/23 21:11 128/65 12/25/23 21:01 135/76 12/25/23 21:00 120 H 20 100 12/25/23 20:55 124/72 12/25/23 20:51 116 H 28 H 98 12/25/23 20:50 120/72 12/25/23 20:50 120/72 12/25/23 20:50 99 12/25/23 20:49 114 H 12/25/23 20:45 111/79 12/25/23 20:39 109 H 20 96 12/25/23 20:31 131/93 12/25/23 20:24 115 H 19 96 12/25/23 20:18 113 H 18 96 12/25/23 20:11 112 H 19 97 12/25/23 20:09 113 H 16 132/65 97 12/25/23 20:08 132/65 12/25/23 20:06 117 H 20 12/25/23 20:04 36.7 C 124 H 23 132/65 97 O2 Del Method 12/25/23 22:50 12/25/23 22:35 12/25/23 22:30 12/25/23 22:25 12/25/23 22:20 12/25/23 22:20 12/25/23 22:18 Room Air 12/25/23 22:16 12/25/23 22:09 12/25/23 22:06 Room Air 12/25/23 22:00 12/25/23 21:40 12/25/23 21:36 12/25/23 21:35 12/25/23 21:35 12/25/23 21:30 12/25/23 21:15 Room Air 12/25/23 21:11 12/25/23 21:01 12/25/23 21:00 12/25/23 20:55 12/25/23 20:51 12/25/23 20:50 12/25/23 20:50 12/25/23 20:50 Room Air 12/25/23 20:49 12/25/23 20:45 12/25/23 20:39 12/25/23 20:31 12/25/23 20:24 12/25/23 20:18 12/25/23 20:11 Room Air 12/25/23 20:09 Room Air 12/25/23 20:08 12/25/23 20:06 12/25/23 20:04 Room Air Laboratory Results Laboratory Results WBC 13.75 K/ul (4.8-10.8) H 12/25/23 20:05 RBC 3.51 M/uL (4.20-5.40) L 12/25/23 20:05 Hgb 10.4 g/dl (12.0-16.0) L 12/25/23 20:05 POC Hgb 10.5 g/dl (12.0-16.0) L 12/25/23 20:15 Hct 33.9 % (37.0-47.0) L 12/25/23 20:05 POC Hct 31 % (37-47) L 12/25/23 20:15 MCV 96.6 fL (80.0-100.0) 12/25/23 20:05 MCH 29.6 pg (25.0-34.0) 12/25/23 20:05 MCHC 30.7 g/dL (32.0-36.0) L 12/25/23 20:05 RDW Std Deviation 54.6 fL (36.4-46.3) H 12/25/23 20:05 RDW Coeff of Maris 15.5 % (11.5-14.5) H 12/25/23 20:05 Plt Count 335 K/uL (130-400) 12/25/23 20:05 MPV 10.5 fL (9.4-12.4) 12/25/23 20:05 Immature Gran % (Auto) 1.2 % 12/25/23 20:05 Neut % (Auto) 77.9 % 12/25/23 20:05 Lymph % (Auto) 13.8 % 12/25/23 20:05 Gaston % (Auto) 5.8 % 12/25/23 20:05 Eos % (Auto) 0.7 % 12/25/23 20:05 Baso % (Auto) 0.6 % 12/25/23 20:05 Neut # (Auto) 10.71 K/uL (1.40-6.50) H 12/25/23 20:05 Lymph # (Auto) 1.90 K/uL (1.20-3.40) 12/25/23 20:05 Gaston # (Auto) 0.80 K/uL (0.11-0.59) H 12/25/23 20:05 Eos # (Auto) 0.10 K/uL (0.00-0.50) 12/25/23 20:05 Baso # (Auto) 0.08 K/uL (0.00-0.20) 12/25/23 20:05 Immature Gran # (Auto) 0.16 K/uL (0.01-0.20) 12/25/23 20:05 PT 25.4 Seconds (9.0-12.0) H 12/25/23 20:05 INR 2.5 (0.9-1.1) H 12/25/23 20:05 POC Sodium 140 mmol/L (135-144) 12/25/23 20:15 Sodium 138 mmol/L (136-145) 12/25/23 20:05 POC Potassium 4.1 mmol/L (3.3-5.0) 12/25/23 20:15 Potassium 4.1 mmol/L (3.5-5.1) 12/25/23 20:05 POC Chloride 109 mmol/L (101-112) 12/25/23 20:15 Chloride 110 mmol/L (98-107) H 12/25/23 20:05 Carbon Dioxide 18 mmol/L (21-32) L 12/25/23 20:05 POC Total CO2 16 mmol/L (24-31) L 12/25/23 20:15 Anion Gap 10 (3-11) 12/25/23 20:05 POC Anion Gap 20.0 mmol/L (16-25) 12/25/23 20:15 POC BUN 19 mg/dl (7-18) H 12/25/23 20:15 BUN 22 mg/dl (6-23) 12/25/23 20:05 Creatinine 0.85 mg/dl (0.6-1.2) 12/25/23 20:05 POC Creatinine 0.8 mg/dl (0.6-1.3) 12/25/23 20:15 Est Cr Clr Drug Dosing 84.0 ml/min 12/25/23 20:05 eGFR 75.04 12/25/23 20:05 BUN/Creatinine Ratio 25.9 (10-20) H 12/25/23 20:05 Glucose 299 mg/dl (70-99(Fasting)) H 12/25/23 20:05 POC Glucose (other) 294 mg/dl (70-99) H 12/25/23 20:15 Calcium 8.7 mg/dl (8.6-10.3) 12/25/23 20:05 POC Ioniz Calcium Reina 1.19 mmol/l (1.12-1.32) 12/25/23 20:15 Magnesium 1.9 mg/dl (1.7-2.4) 12/25/23 20:05 Total Bilirubin 0.6 mg/dl (0.2-1.0) 12/25/23 20:05 AST 19 U/L (13-39) 12/25/23 20:05 ALT 18 U/L (7-52) 12/25/23 20:05 Alkaline Phosphatase 70 U/L (34-104) 12/25/23 20:05 Troponin I High Sens 9.8 pg/ml (0-14) 12/25/23 20:05 Total Protein 5.9 gm/dl (6.0-8.3) L 12/25/23 20:05 Albumin 3.6 gm/dl (3.4-5.0) 12/25/23 20:05 Globulin 2.3 gm/dl (2.5-4.0) L 12/25/23 20:05 Albumin/Globulin Ratio 1.6 (0.9-2) 12/25/23 20:05 Lipase 41 U/L (11-82) 12/25/23 20:05 Blood Type A Positive 12/25/23 20:39 Antibody Screen NEGATIVE 12/25/23 20:39 Crossmatch See Detail 12/25/23 20:39 Impressions Abdomen/Pelvis CTA 12/25/23 21:06 Exam(s): CTA ABDOMEN + PELVIS With Contrast IV Amt: 119ML OPTIRAY 320 EXAM: CT Angiography Abdomen and Pelvis With Intravenous Contrast CLINICAL HISTORY: Anthony hematemesis. TECHNIQUE: Axial computed tomographic angiography images of the abdomen and pelvis with intravenous contrast. CTDI is 28.14 mGy and DLP is 1795.33 mGy-cm. Automated exposure control was utilized for the study. A dose lowering technique was utilized adhering to the principles of ALARA. MIP reconstructed images were created and reviewed. CONTRAST: Patient received 119ML OPTIRAY 320 of IV contrast COMPARISON: No relevant prior studies available. FINDINGS: VASCULATURE: Aorta: Mild atherosclerosis of the aorta. No aortic aneurysm or dissection. Celiac trunk and mesenteric arteries: There is mild atherosclerosis of the origin of the celiac trunk, SMA and DARLIN without significant stenosis. Renal arteries: Minimal atherosclerosis of the origin of both renal arteries. No significant stenosis. Iliac arteries: There is atherosclerosis of the bilateral common, internal and external iliac arteries without significant stenosis. Lung bases: Unremarkable. No mass. No consolidation. ABDOMEN: Liver: Mild hepatomegaly. The liver measures 17.1 cm. No mass. Gallbladder and bile ducts: Unremarkable. No calcified stones. No ductal dilation. Pancreas: Unremarkable. No ductal dilation. No mass. Spleen: Unremarkable. No splenomegaly. Adrenals: Unremarkable. No mass. Kidneys and ureters: Simple appearing bilateral renal cysts are present, no follow up is needed. The kidneys are otherwise unremarkable. No hydronephrosis. Stomach and bowel: Unremarkable. No obstruction. No mucosal thickening. PELVIS: Appendix: Normal appendix. Bladder: Unremarkable. No mass. Reproductive: Unremarkable as visualized. ABDOMEN and PELVIS: Intraperitoneal space: Unremarkable. No significant fluid collection. No free air. Bones/joints: No acute fracture. No dislocation. Soft tissues: Unremarkable. Lymph nodes: Unremarkable. No enlarged lymph nodes. IMPRESSION: 1. No aortic aneurysm or dissection. 2. Mild hepatomegaly. Electronically signed by: Dayna Mosquera MD 12/25/23 22:46 PM Chest CTA 12/25/23 21:06 Exam(s): CTA CHEST W/WO Contrast IV Amt: 119ML OPTIRAY 320 EXAM: CT Angiography Chest Without and With Intravenous Contrast CLINICAL HISTORY: Anthony hematemesis. TECHNIQUE: Axial computed tomographic angiography images of the chest without and with intravenous contrast. MIPS images were created and reviewed. CTDI is 28.14 mGy and DLP is 951.03 mGy-cm. Automated exposure control was utilized for the study. A dose lowering technique was utilized adhering to the principles of ALARA. MIP reconstructed images were created and reviewed. CONTRAST: Patient received 119ML OPTIRAY 320 of IV contrast COMPARISON: CTA chest 07/10/2021. FINDINGS: Pulmonary arteries: Unremarkable. No pulmonary embolism. Aorta: Minimal atherosclerosis. No thoracic aortic aneurysm. Great vessels of aortic arch: There is mild atherosclerosis of the origin of the left subclavian artery. Lungs: Unremarkable. No mass. No consolidation. Pleural space: Unremarkable. No significant effusion. No pneumothorax. Heart: A pericardial effusion measures up to 5 mm. Coronary artery calcifications are present. No cardiomegaly. No evidence of RV dysfunction. Bones/joints: There are degenerative changes of the spine. No acute fracture. Soft tissues: Unremarkable. Lymph nodes: Unremarkable. No enlarged lymph nodes. Other findings: . IMPRESSION: 1. No pulmonary embolus. 2. A pericardial effusion measures up to 5 mm. Electronically signed by: Dayna Mosquera MD 12/25/23 22:44 PM Diagnostic Findings EKG as per my interpretation : Rate 110, sinus tachycardia, LAD, LAFB, RBBB, no ischemia, PVCs
[2023-12-25] MEDS: LACTATED RINGER'S 1,000 ML IV STA (22:57)
[2023-12-25] MEDS ORDERED: ACETAMINOPHEN 500 MG TAB PO PRN (23:24)
[2023-12-25] MEDS: PROMETHAZINE 12.5 MG/50.5 ML BAG IV PRN (23:53)
[2023-12-26 00:01] LABS: Base Excess VBG -5.5 mEq/L; HCO3 VBG 18 mmol/L; Oxygen Saturation VBG 94.5 %; PCO2 VBG 29 mmHg (38-50); PO2 VBG 64 mmHg
[2023-12-26] MEDS: PROMETHAZINE 12.5 MG/50.5 ML BAG IV STA (00:15)
[2023-12-26] MEDS ORDERED: ARTIFICIAL TEARS OP PRN (00:20)
[2023-12-26 00:35] LABS: Adenovirus PCR Not Detected (NotDetected); Bordetella parapertussis PCR Not Detected (NotDetected); Bordetella pertussis PCR Not Detected (NotDetected); Chlamydia pneumoniae PCR Not Detected (NotDetected); Coronavirus 229E PCR Not Detected (NotDetected); Coronavirus CoV-2 (COVID19)PCR Not Detected (NotDetected); Coronavirus HKU1 PCR Not Detected (NotDetected); Coronavirus NL63 PCR Not Detected (NotDetected); Coronavirus OC43PCR Not Detected (NotDetected); Human Metapneumovirus PCR Not Detected (NotDetected); Influenza A PCR Not Detected (NotDetected); Influenza B PCR Not Detected (NotDetected); Mycoplasma pneumoniae PCR Not Detected (NotDetected); Parainfluenza Virus 1 PCR Not Detected (NotDetected); Parainfluenza Virus 2 PCR Not Detected (NotDetected); Parainfluenza Virus 3 PCR Not Detected (NotDetected); Parainfluenza Virus 4 PCR Not Detected (NotDetected); Respiratory Syncytial VirusPCR Not Detected (NotDetected); Rhinovirus/Enterovirus PCR Not Detected (NotDetected)
[2023-12-26] MEDS ORDERED: DEXTROSE 50% 50 ML SYRINGE IV PRN (00:41)
[2023-12-26] MEDS ORDERED: GLUCOSE 40% GEL 15 GM TUBE PO PRN (00:41)
[2023-12-26] MEDS ORDERED: CARBOHYDRATES FOR HYPOGLYCEMIA PO PRN (00:41)
[2023-12-26] MEDS ORDERED: GLUCOSE 10 TAB/TUBE PO PRN (00:41)
[2023-12-26] MEDS ORDERED: GLUCAGON FOR INJ 1 MG VIAL SQ PRN (00:41)
[2023-12-26] MEDS: LANTUS PER UNIT CHARGE SQ STA ×2 (01:34→04:22)
[2023-12-26] MEDS: INSULIN ASPART PER UNIT CHARGE SC SCH (01:35)
[2023-12-26] MEDS: MAGNESIUM SULFATE / D5W 1 GM/100 ML BAG IV STA (01:35)
[2023-12-26 01:48] LABS: Hematocrit (blood only) 30.2 % (37.0-47.0); Hemoglobin 9.7 g/dl (12.0-16.0)
[2023-12-26] MEDS: LACTATED RINGER'S 1,000 ML IV SCH ×2 (03:25→05:58)
[2023-12-26] MEDS ORDERED: LACTATED RINGER'S 1,000 ML IV SCH ×2 (03:30→06:30)
[2023-12-26 03:58] LABS: Appearance Urine Clear (Clear); Bacteria Urine Automated None Seen (None Seen); Bilirubin Urine Negative (Negative); Blood Urine Negative (Negative); Cast Urine Automated 0-2 /lpf (0-2); Color Urine Yellow; Glucose Urine UA 3+ (Negative); Ketones Urine 1+ (Negative); Leukocyte Esterase Urine Trace (Negative); Nitrite Urine Negative (Negative); Protein Urine Negative (Negative); Specific Gravity Urine > 1.045 (1.000-1.030); Urobilinogen Urine Negative (Negative); WBC Urine Automated 21-50 /hpf (0-5); pH Urine 5.5 (4.5-7.5)
[2023-12-26 04:36] LABS: Basophils # (auto) 0.06 K/uL (0.00-0.20); Basophils % (auto) 0.4 %; Hematocrit (blood only) 25.8 % (37.0-47.0); Hemoglobin 8.2 g/dl (12.0-16.0); Immature Granulocytes # (auto) 0.42 K/uL (0.01-0.20); Lymphocytes # (auto) 0.99 K/uL (1.20-3.40); Mean Corpuscular Hemoglobin 30.4 pg (25.0-34.0); Mean Corpuscular Hgb Conc 31.8 g/dL (32.0-36.0); Mean Corpuscular Volume 95.6 fL (80.0-100.0); Mean Platelet Volume 10.6 fL (9.4-12.4); Monocytes # (auto) 0.42 K/uL (0.11-0.59); Neutrophils # (auto) 12.26 K/uL (1.40-6.50); Neutrophils % (auto) 86.6 %; Nucleated RBC # (auto) 0.03 K/uL (0.00-0.12); Nucleated RBC % (auto) 0.2 %; Platelet Count 291 K/uL (130-400); RDW Coefficient of Variation 15.3 % (11.5-14.5); RDW Standard Deviation 53.3 fL (36.4-46.3); White Blood Count 14.15 K/ul (4.8-10.8)
[2023-12-26] MEDS ORDERED: SODIUM CHLORIDE 0.9% 100 ML IV PRN (04:47)
[2023-12-26 04:50] LABS: BUN Creatinine Ratio 38.8 (10-20); Calcium 8.3 mg/dl (8.6-10.3); Creatinine Clr Calc Pharmacy 71.8 ml/min; Potassium 4.4 mmol/L (3.5-5.1)
[2023-12-26] MEDS: LACTATED RINGER'S 1,000 ML IV ONE (05:04)
[2023-12-26 05:07] LABS: INR 1.6 (0.9-1.1); Prothrombin Time 16.7 Seconds (9.0-12.0)
[2023-12-26] MEDS: METOPROLOL TARTRATE 25 MG TAB PO SCH (07:53)
[2023-12-26 07:55] LABS: Estimated Average Glucose 146 mg/dl; Hemoglobin A1C 6.7 % (4.5-5.6)
--- NOTE | 2023-12-26 09:49 | Gastrointestinal Consultation ---
Date of Consultation December 26, 2023 Assessment & Plan (1) Hematemesis: Patient is a 68 year old female who is admitted for several episodes of hematemesis. Last episode at 3 am this morning. history of coumadin use for PE/DVTs - last dose 12/21. I had discussed case with Dr. Charlton. - set patient up for an EGD today to further evaluate. - continue to monitor hgb/hct and transfuse as needed. - continue with protonix drip. - further recommendations to follow. Supervising Physician Co-Signing Physician Notes I saw and examined this patient with our nurse practitioner and agree with her assessment and plan. Clinical picture consistent with an upper GI bleed. Differential includes peptic ulcer disease gastritis esophagitis less likely varices without a past history of liver disease. Hemodynamically stable. Will proceed with urgent endoscopy for further evaluation and possible treatment. History of Present Illness Reason for Consultation: UGIB Requesting Physician: Joanne Schofield MD Attending Physician: Jae Saunders DO History of Present Illness Patient is a 68 year old female who presented to the ED on 12/25 with complaints of two episodes of hematemesis. Patient reports she had not felt well throughout the day yesterday and had nausea. She tells me that when she went to go eat some toast, she suddenly felt very nauseous again and went to the bathroom and started vomiting up blood. she tells me she had passed large amounts of blood. She is on Coumadin for history of DVT and PEs and tells me her last dose of this was 12/21. she also has been having some epigastric discomfort. no heartburn. She admits to having had 3-4 episodes of further hematemesis since she has been admitted with the last episode being at 3 am this morning 12/25. 12/25 hgb 8.2, INR 1.6 12/24 hgb 10.4, INR 2.5 EGD 2019 Gastritis. Colonoscopy 05/20/23 diverticulosis and internal hemorrhoids. Allergies Allergy/AdvReac Type Severity Reaction Status Date / Time allopurinol Allergy Intermediate Unknown Verified 10/14/23 06:46 amitriptyline Allergy Intermediate Arms, leg Verified 10/14/23 06:46 swelling codeine Allergy Intermediate Pruritus, Verified 10/14/23 06:46 rash doxepin Allergy Intermediate Arms, leg Verified 10/14/23 06:46 swelling gabapentin Allergy Intermediate Arms, leg Verified 10/14/23 06:46 swelling sitagliptin Allergy Intermediate Arms, leg Verified 10/14/23 06:46 swelling mineral oil [From Vagisil] Allergy Mild Rash Verified 10/14/23 06:46 nickel Allergy Mild Rash Verified 10/14/23 06:46 potassium chloride Allergy Mild Pruritus, Verified 10/14/23 06:46 [From Klor-Con] rash resorcinol [From Vagisil] Allergy Mild Rash Verified 10/14/23 06:46 starch [From Vagisil] Allergy Mild Rash Verified 10/14/23 06:46 Tricyclic Antidepressants Allergy Unknown leg and Verified 10/14/23 14:20 and Tricy arm swelling clindamycin Allergy Unknown Verified 10/14/23 07:14 fluticasone furoate Allergy Swelling Verified 10/14/23 06:46 [From Breo Ellipta] of Lip/Tongue/Throat vilanterol Allergy Swelling Verified 10/14/23 06:46 [From Breo Ellipta] of Lip/Tongue/Throat adhesive AdvReac Intermediate Rash, Verified 10/14/23 06:46 itching (tape) dexamethasone [From Decadron] AdvReac Intermediate Tachycardia Verified 10/16/23 07:30 erythromycin base AdvReac Intermediate Severe Verified 10/14/23 06:46 stomach cramps Home Medications Medication Instructions Recorded Confirmed Type aspirin 81 mg tablet,delayed 81 mg PO QAM 11/09/17 12/25/23 History release atorvastatin 20 mg tablet 20 mg PO QAM 11/09/17 12/25/23 History metoprolol tartrate 25 mg tablet 12.5 mg PO BIDM 11/09/17 12/25/23 History potassium citrate 10 mEq (1,080 See Rx Instructions .Route .COMPLEX 11/09/17 12/25/23 History mg) tablet,extended release warfarin 5 mg tablet 5 mg PO 2XWK 11/09/17 12/25/23 History magnesium chloride 64 mg 128 - 192 mg PO TID 01/08/19 12/25/23 History (magnesium chloride) tablet,delayed release medroxyprogesterone 10 mg tablet 10 mg PO QAM 02/13/19 12/25/23 History (Provera) ropinirole 0.5 mg tablet 0.5 mg PO HS PRN Restless Leg(S) 02/13/19 12/25/23 History escitalopram oxalate 20 mg tablet 20 mg PO QAM 08/27/20 12/25/23 History ferrous sulfate 325 mg (65 mg 325 mg PO DAILY 08/27/20 12/25/23 History iron) tablet furosemide 20 mg tablet 20 mg PO QAM Edema 08/27/20 12/25/23 History leucovorin calcium 5 mg tablet 5 mg PO WK 08/27/20 12/25/23 History methotrexate sodium 25 mg/mL 20 mg subcut UD 08/27/20 12/25/23 History injection solution verapamil 120 mg tablet,extended 120 mg PO TID 08/27/20 12/25/23 History release warfarin 5 mg tablet 7.5 mg PO 5XWK 08/27/20 12/25/23 History metformin 500 mg tablet,extended 2,000 mg PO HS 01/24/21 12/25/23 History release 24 hr montelukast 10 mg tablet 10 mg PO HS 01/24/21 12/25/23 History tqepjyuvcgqw-qrhnayfz-visixk 1 tab PO QAM 01/24/21 12/25/23 History tablet (Multivitamin 50 Plus tablet) vitamin B complex 1 tab PO QAM 01/24/21 12/25/23 History ondansetron 4 mg disintegrating 4 mg PO Q8H PRN nausea and 02/09/21 12/25/23 Rx tablet vomiting #7 tabs albuterol sulfate 90 mcg/actuation 2 puff inhalation Q4H PRN Wheezing 07/10/21 12/25/23 History aerosol inhaler (Ventolin HFA) biotin 10 mg tablet 10 mg PO BID 07/10/21 12/25/23 History cyclosporine 0.05 % eye drops in a 1 drp ophthalmic (eye) Q12H 07/10/21 12/25/23 History dropperette (Restasis) vibegron 75 mg tablet (Gemtesa) 75 mg PO QAM 07/10/21 12/25/23 History bupropion HCl 150 mg 24 hr tablet, 150 mg PO QAM 09/28/23 12/25/23 History extended release insulin glargine 100 unit/mL (3 10 unit subcut HS 09/28/23 12/25/23 History mL) subcutaneous pen (Manpreet Huertas U-100 Insulin) empagliflozin 25 mg tablet 25 mg PO DAILY 10/14/23 12/25/23 History (Jardiance) famotidine 40 mg tablet 40 mg PO HS 10/14/23 12/25/23 History fluticasone propionate 230 2 inh inhalation BID 10/14/23 12/25/23 History mcg-salmeterol 21 mcg/actuation HFA inhaler (Advair HFA) lansoprazole 15 mg capsule,delayed 15 mg PO DAILY 10/14/23 12/25/23 History release oxycodone 5 mg tablet 5 mg PO Q6H PRN pain #30 tabs 10/14/23 12/25/23 Rx tramadol 50 mg tablet 50 mg PO Q6H PRN pain, moderate 10/14/23 12/25/23 Rx #30 tabs levalbuterol tartrate 45 1 puff inhalation Q4 PRN Wheezing 12/25/23 12/25/23 History mcg/actuation aerosol inhaler semaglutide 2 mg/dose (8 mg/3 mL) 2 mg subcut WK 12/25/23 12/25/23 History subcutaneous pen injector (Ozempic) sodium bicarbonate 650 mg tablet 650 mg PO AMHS 12/25/23 12/25/23 History Patient History Medical History Seronegative polyarthritis Rheumatoid arthritis with inflammatory polyarthropathy Osteoarthritis Overactive bladder GERD (gastroesophageal reflux disease) Diabetes mellitus, type 2 Anemia Anxiety and depression Post traumatic stress disorder Peripheral neuropathy Pulmonary embolism Several years ago Hx of deep venous thrombosis Age mid-30s after fall/trauma Atrial tachycardia Follows with Dr. Shaw Sleep apnea CPAP (compliant) Asthma Uterine hyperplasia Currently on hormone therapy Morbid obesity with BMI of 40.0-44.9, adult Limb alert care status LUE restriction Gastroparesis Raynauds phenomenon History of kidney stones Degenerative disc disease Chronic kidney disease (CKD) Stage 3 Follows with [facility] nephrology Neuropathy Severe legs/feet Uses assistive devices including mobilized wheelchair Fibromyalgia Hyperlipidemia Hypertension Breast cancer Invasive adenocarcinoma Dx 2011 - B/L mastectomy + chemo + radiation Restless legs syndrome Surgical History History of tooth extraction History of cataract surgery R/L Nausea and vomiting after administration of anesthetic agent History of cystoscopy Cysto, laser litho (02/19/2021): LMA#4 (iGel) at [facility] History of lithotripsy History of colonoscopy 05/20/23, MAC at [facility] History of esophagogastroduodenoscopy (EGD) History of gynecological procedure D&C, Mirena insertion (11/24/18): Grade 2 view, Glidescope#3, ETT 7.0, atraumatic elective glidescope intubation x2, 2nd attempt successful History of breast biopsy History of D&C H/O bilateral salpingo-oophorectomy H/O breast reconstruction Implants failed due to infections > subsequent removal History of carpal tunnel release R/L History of exploratory laparotomy Hx of foot surgery left History of herniorrhaphy Umbilical with mesh History of cholecystectomy History of vascular access device Mediport power port (Right chest) History of bilateral mastectomy LUE restriction Family History Brother Family history of diabetes mellitus Father Family history of diabetes mellitus Mother Family history of diabetes mellitus Other No family history of adverse response to anesthesia Social History Smoking Status: Former smoker Tobacco Type: Cigarettes Cigarettes Per Day: Quit 1984; Smoking End Date: 1984; Second Hand Exposure: Yes (hx); Do You Dip or Chew Tobacco: No; Hx Alcohol Use: No Hx Substance Use: No Preferred Language: Wolof Communication Ability: Effective Roof [employer] Required: No Beliefs That Will Affect Care: None Current Living Situation: Spouse Current Living Situation Comment: raised ranch home, stair lift , ramp in place Other Information That Helps Us Care for You: No Feels Safe at Home: Yes Safety Concerns: Feels Safe At This Time Assistive Devices: Cane, CPAP, Scooter/Electric Scooter and Walker Assistive Devices Comment: brought cane Review of Systems Review of Systems: All systems reviewed & are unremarkable except as noted in HPI & below Physical Exam Constitutional: WD/WN, vitals as above Respiratory: normal respiratory effort, lungs clear to auscultation Cardiovascular: Rate/Rhythm: regular rate and regular rhythm Gastrointestinal (Abdomen): mid epigastric tenderness to palpation, no guarding, soft, normal bowel sounds. Psychiatric: Orientation: alert and oriented x 3 Results & Data Vital Signs (Past 12 Hours) Vital Signs Temp Pulse Pulse Resp BP BP BP 12/26/23 07:29 99.3 F 132 H 16 134/83 12/26/23 06:29 98.8 F 126 H 16 110/71 12/26/23 05:59 97.9 F 129 H 18 108/70 12/26/23 05:44 97.9 F 123 H 16 111/71 12/26/23 05:28 99.0 F 121 H 16 114/73 12/26/23 03:47 98.6 F 129 H 18 97/66 L 12/26/23 01:05 98.8 F 120 H 16 106/61 12/26/23 00:41 98.8 F 121 H 16 85/58 L 12/26/23 00:41 12/26/23 00:30 131 H 12/26/23 00:30 12/26/23 00:30 98.8 F 120 H 16 85/58 L 12/25/23 23:55 129 H 12/25/23 23:51 119 H 28 H 125/78 12/25/23 23:20 97.9 F 115 H 23 118/47 L 12/25/23 22:50 98.4 F 116 H 24 97/63 L 12/25/23 22:35 98.6 F 116 H 19 108/68 12/25/23 22:30 128/101 H 12/25/23 22:25 108/66 12/25/23 22:20 128/68 12/25/23 22:20 98.8 F 118 H 20 128/68 12/25/23 22:18 119 H 13 12/25/23 22:16 93/55 L 12/25/23 22:09 114 H 13 12/25/23 22:06 115 H 22 12/25/23 22:00 98.8 F Pulse Ox Pulse Ox O2 Del Method O2 Del Method O2 Flow Rate O2 Flow Rate 12/26/23 07:29 98 12/26/23 06:29 100 3 12/26/23 05:59 100 12/26/23 05:44 100 3 12/26/23 05:28 97 3 12/26/23 03:47 99 Nasal Cannula 3 12/26/23 01:05 12/26/23 00:41 98 Room Air 12/26/23 00:41 97 Room Air, Nasal Cannula 3 12/26/23 00:30 12/26/23 00:30 Room Air 12/26/23 00:30 98 Room Air 12/25/23 23:55 12/25/23 23:51 96 Room Air 12/25/23 23:20 96 12/25/23 22:50 97 12/25/23 22:35 97 12/25/23 22:30 12/25/23 22:25 12/25/23 22:20 12/25/23 22:20 98 12/25/23 22:18 99 Room Air 12/25/23 22:16 12/25/23 22:09 97 12/25/23 22:06 98 Room Air 12/25/23 22:00 Coding Level of Care Code 27513 INT INP/OBS CARE MIN Diagnoses Hematemesis K92.0
[2023-12-26 09:59] LABS: Hematocrit (blood only) 25.8 % (37.0-47.0); Hemoglobin 8.4 g/dl (12.0-16.0)
[2023-12-26] MEDS: SODIUM BICARBONATE 650 MG TAB PO SCH (10:03)
[2023-12-26] MEDS: ATORVASTATIN 20 MG TAB PO SCH (10:03)
[2023-12-26] MEDS: ESCITALOPRAM OXALATE 20 MG TAB PO SCH (10:03)
[2023-12-26] MEDS: buPROPion XL 150 MG TABCR PO SCH (10:03)
[2023-12-26] MEDS: CEROVITE ADV FORMULA TAB PO SCH (10:03)
[2023-12-26] MEDS: VIBEGRON 75 MG TAB PO SCH (10:04)
[2023-12-26] MEDS ORDERED: SUCCINYLCHOLINE CHLORIDE 20 MG/ML 10 ML VIAL IV ONE (11:56)
[2023-12-26] MEDS ORDERED: MIDAZOLAM HCL 1 MG/ML 2ML VIAL ONE (11:56)
[2023-12-26] MEDS ORDERED: LIDOCAINE 2% 2 ML VIAL/AMP(20MG/ML) INFIL ONE (11:56)
[2023-12-26] MEDS ORDERED: fentaNYL citrate PF 100 MCG/2 ML VIAL ONE (11:56)
[2023-12-26] MEDS ORDERED: PROPOFOL IV EMULSION 10 MG/ML 20 ML VIAL IV ONE (11:56)
[2023-12-26] MEDS ORDERED: ROCURONIUM BROMIDE 10 MG/ML 5 ML VIAL IV ONE (11:56)
[2023-12-26] MEDS ORDERED: ONDANSETRON INJ 2 MG/ML 2 ML VIAL ONE (11:56)
[2023-12-26] MEDS ORDERED: ALBUMIN HUMAN 5% 12.5 GM/250 ML VIAL IV ONE (12:03)
[2023-12-26] MEDS ORDERED: ATROPINE SULFATE 0.1 MG/ML 10ML SYR IV PRN (12:23)
[2023-12-26] MEDS ORDERED: fentaNYL citrate PF 100 MCG/2 ML VIAL IV PRN (12:23)
[2023-12-26] MEDS ORDERED: ONDANSETRON INJ 2 MG/ML 2 ML VIAL IV PRN ×2 (12:23→16:15)
[2023-12-26] MEDS ORDERED: ePHEDrine sulfate 50 MG/ML AMP IV PRN (12:23)
--- NOTE | 2023-12-26 12:32 | Anesthesiology Consultation ---
Date of Service December 26, 2023 Assessment & Plan Chart Review Chart Review: Acceptable Risk for Surgery and Patient NOT seen in Pre Admission Testing Consults Requested none ASA [id number] Proposed Anesthesia Anesthesia Type: General Risk / Benefits Reviewed With: PT / POA / Parent / Guardian, Accepts Plan and Informed Consent Obtained Additional Comments: probable blood transfusion necessary in line of acute anemia with active bleeding. History Surgery Operation Date: 12/26/23 09:15 Proposed Procedures p Esophagogastroduodenoscopy - Jaswant Charlton MD Height/Weight Height: 5 ft 4 in Weight: 122.016 kg Allergies Allergy/AdvReac Type Severity Reaction Status Date / Time allopurinol Allergy Intermediate Unknown Verified 10/14/23 06:46 amitriptyline Allergy Intermediate Arms, leg Verified 10/14/23 06:46 swelling codeine Allergy Intermediate Pruritus, Verified 10/14/23 06:46 rash doxepin Allergy Intermediate Arms, leg Verified 10/14/23 06:46 swelling gabapentin Allergy Intermediate Arms, leg Verified 10/14/23 06:46 swelling sitagliptin Allergy Intermediate Arms, leg Verified 10/14/23 06:46 swelling mineral oil [From Vagisil] Allergy Mild Rash Verified 10/14/23 06:46 nickel Allergy Mild Rash Verified 10/14/23 06:46 potassium chloride Allergy Mild Pruritus, Verified 10/14/23 06:46 [From Klor-Con] rash resorcinol [From Vagisil] Allergy Mild Rash Verified 10/14/23 06:46 starch [From Vagisil] Allergy Mild Rash Verified 10/14/23 06:46 Tricyclic Antidepressants Allergy Unknown leg and Verified 10/14/23 14:20 and Tricy arm swelling clindamycin Allergy Unknown Verified 10/14/23 07:14 fluticasone furoate Allergy Swelling Verified 10/14/23 06:46 [From Breo Ellipta] of Lip/Tongue/Throat vilanterol Allergy Swelling Verified 10/14/23 06:46 [From Breo Ellipta] of Lip/Tongue/Throat adhesive AdvReac Intermediate Rash, Verified 10/14/23 06:46 itching (tape) dexamethasone [From Decadron] AdvReac Intermediate Tachycardia Verified 10/16/23 07:30 erythromycin base AdvReac Intermediate Severe Verified 10/14/23 06:46 stomach cramps Medications Home Medications Medication Instructions Recorded Confirmed Last Taken aspirin 81 mg tablet,delayed 81 mg PO QAM 11/09/17 12/25/23 10/13/23 09:00 release atorvastatin 20 mg tablet 20 mg PO QAM 11/09/17 12/25/23 10/14/23 06:00 metoprolol tartrate 25 mg tablet 12.5 mg PO BIDM 11/09/17 12/25/23 10/14/23 06:00 potassium citrate 10 mEq (1,080 See Rx Instructions .Route .COMPLEX 11/09/17 12/25/23 10/13/23 21:30 mg) tablet,extended release warfarin 5 mg tablet 5 mg PO 2XWK 11/09/17 12/25/23 10/06/23 magnesium chloride 64 mg 128 - 192 mg PO TID 01/08/19 12/25/23 10/13/23 21:30 (magnesium chloride) tablet,delayed release medroxyprogesterone 10 mg tablet 10 mg PO QAM 02/13/19 12/25/23 10/13/23 09:00 (Provera) ropinirole 0.5 mg tablet 0.5 mg PO HS PRN Restless Leg(S) 02/13/19 12/25/23 10/13/23 21:30 escitalopram oxalate 20 mg tablet 20 mg PO QAM 08/27/20 12/25/23 10/14/23 06:00 ferrous sulfate 325 mg (65 mg 325 mg PO DAILY 08/27/20 12/25/23 10/13/23 21:30 iron) tablet furosemide 20 mg tablet 20 mg PO QAM Edema 08/27/20 12/25/23 05/13/23 leucovorin calcium 5 mg tablet 5 mg PO WK 08/27/20 12/25/23 10/08/23 methotrexate sodium 25 mg/mL 20 mg subcut UD 08/27/20 12/25/23 09/30/23 injection solution verapamil 120 mg tablet,extended 120 mg PO TID 08/27/20 12/25/23 10/14/23 06:00 release warfarin 5 mg tablet 7.5 mg PO 5XWK 08/27/20 12/25/23 10/08/23 metformin 500 mg tablet,extended 2,000 mg PO HS 01/24/21 12/25/23 10/07/23 release 24 hr montelukast 10 mg tablet 10 mg PO HS 01/24/21 12/25/23 10/13/23 21:30 rcrbvempezwf-clecmwat-[id number] 1 tab PO QAM 01/24/21 12/25/23 10/07/23 tablet (Multivitamin 50 Plus tablet) vitamin B complex 1 tab PO QAM 01/24/21 12/25/23 10/14/23 06:00 ondansetron 4 mg disintegrating 4 mg PO Q8H PRN nausea and 02/09/21 12/25/23 10/13/23 21:30 tablet vomiting #7 tabs albuterol sulfate 90 mcg/actuation 2 puff inhalation Q4H PRN Wheezing 07/10/21 12/25/23 10/12/23 aerosol inhaler (Ventolin HFA) biotin 10 mg tablet 10 mg PO BID 07/10/21 12/25/23 09/30/23 cyclosporine 0.05 % eye drops in a 1 drp ophthalmic (eye) Q12H 07/10/21 12/25/23 10/14/23 06:00 dropperette (Restasis) vibegron 75 mg tablet (Gemtesa) 75 mg PO QAM 07/10/21 12/25/23 10/13/23 09:00 bupropion HCl 150 mg 24 hr tablet, 150 mg PO QAM 09/28/23 12/25/23 10/14/23 06:00 extended release insulin glargine 100 unit/mL (3 10 unit subcut HS 09/28/23 12/25/23 10/13/23 21:30 mL) subcutaneous pen (Basagljewel Huertas U-100 Insulin) empagliflozin 25 mg tablet 25 mg PO DAILY 10/14/23 12/25/23 Unknown (Jardiance) famotidine 40 mg tablet 40 mg PO HS 10/14/23 12/25/23 Unknown fluticasone propionate 230 2 inh inhalation BID 10/14/23 12/25/23 Unknown mcg-salmeterol 21 mcg/actuation HFA inhaler (Advair HFA) lansoprazole 15 mg capsule,delayed 15 mg PO DAILY 10/14/23 12/25/23 Unknown release oxycodone 5 mg tablet 5 mg PO Q6H PRN pain #30 tabs 10/14/23 12/25/23 Unknown tramadol 50 mg tablet 50 mg PO Q6H PRN pain, moderate 10/14/23 12/25/23 Unknown #30 tabs levalbuterol tartrate 45 1 puff inhalation Q4 PRN Wheezing 12/25/23 12/25/23 Unknown mcg/actuation aerosol inhaler semaglutide 2 mg/dose (8 mg/3 mL) 2 mg subcut WK 12/25/23 12/25/23 Unknown subcutaneous pen injector (Ozempic) sodium bicarbonate 650 mg tablet 650 mg PO AMHS 12/25/23 12/25/23 Unknown Active Medications Generic Name Dose Route Start Last Admin Trade Name Freq PRN Reason Stop Dose Admin Atorvastatin Calcium 20 mg 12/26/23 09:00 12/26/23 10:03 Atorvastatin 20 Mg Tab PO 01/25/24 08:59 Not Given QAM JIM Bupropion HCl 150 mg 12/26/23 09:00 12/26/23 10:03 Bupropion Xl 150 Mg Tabcr PO 01/25/24 08:59 Not Given QAM JIM Escitalopram Oxalate 20 mg 12/26/23 09:00 12/26/23 10:03 Escitalopram Oxalate 20 Mg Tab PO 01/25/24 08:59 Not Given QAM JIM Pantoprazole Sodium 40 mg/ 100 mls @ 20 mls/hr 12/25/23 21:00 12/26/23 07:49 Dextrose IV 01/24/24 20:59 8 mg/hr Q5H JIM 20 mls/hr Administration 8 MG/HR Promethazine HCl 12.5 mg in 50.5 mls @ 202 mls/hr 12/25/23 23:24 12/26/23 00:30 Phenergan IV 01/24/24 23:23 Infused Q6H PRN Infusion Nausea And Vomiting Lactated Ringer's 1,000 mls @ 200 mls/hr 12/26/23 05:00 12/26/23 10:58 Lr IV 12/26/23 14:59 200 mls/hr .Q5H JIM Administration Insulin Aspart 0 units 12/26/23 00:41 12/26/23 06:25 Insulin Aspart Per Unit Charge SC 01/25/24 00:40 4 units Q6 JIM Administration Metoprolol Tartrate 12.5 mg 12/26/23 08:00 12/26/23 07:53 Metoprolol Tartrate 25 Mg Tab PO 01/25/24 07:59 12.5 mg BIDM JIM Administration Miscellaneous 1 each 12/26/23 08:00 12/26/23 10:03 Advair~Order Awaiting Action N/A 01/25/24 07:59 Not Given QS JIM Multivitamins/Minerals 1 tab 12/26/23 09:00 12/26/23 10:03 Cerovite Adv Formula Tab PO 01/25/24 08:59 Not Given QAM JIM Sodium Bicarbonate 650 mg 12/26/23 09:00 12/26/23 10:03 Sodium Bicarbonate 650 Mg Tab PO 01/25/24 08:59 Not Given AMHS JIM Vibegron 75 mg 12/26/23 09:00 12/26/23 10:04 Vibegron 75 Mg Tab PO 01/25/24 08:59 Not Given QAM JIM NPO Date Last Intake of Fluids: 12/23/23 Time Last Intake of Fluids: 08:00 Date Last Intake of Solids: 12/23/23 Time Last Intake of Solids: 08:00 Past Medical History Medical History Seronegative polyarthritis Rheumatoid arthritis with inflammatory polyarthropathy Osteoarthritis Overactive bladder GERD (gastroesophageal reflux disease) Diabetes mellitus, type 2 Anemia Anxiety and depression Post traumatic stress disorder Peripheral neuropathy Pulmonary embolism Several years ago Hx of deep venous thrombosis Age mid-30s after fall/trauma Atrial tachycardia Follows with Dr. Shaw Sleep apnea CPAP (compliant) Asthma Uterine hyperplasia Currently on hormone therapy Morbid obesity with BMI of 40.0-44.9, adult Limb alert care status LUE restriction Gastroparesis Raynauds phenomenon History of kidney stones Degenerative disc disease Chronic kidney disease (CKD) Stage 3 Follows with [facility] nephrology Neuropathy Severe legs/feet Uses assistive devices including mobilized wheelchair Fibromyalgia Hyperlipidemia Hypertension Breast cancer Invasive adenocarcinoma Dx 2010 - B/L mastectomy + chemo + radiation Restless legs syndrome Exercise / Class Metabolic Activity II 4-5 Yardwork/Stairs/Walk up hill Past Family History Family History Brother Family history of diabetes mellitus Father Family history of diabetes mellitus Mother Family history of diabetes mellitus Other No family history of adverse response to anesthesia Past Surgical History Surgical History History of tooth extraction History of cataract surgery R/L Nausea and vomiting after administration of anesthetic agent History of cystoscopy Cysto, laser litho (02/19/2021): LMA#4 (iGel) at [facility] History of lithotripsy History of colonoscopy 05/20/23, MAC at [facility] History of esophagogastroduodenoscopy (EGD) History of gynecological procedure D&C, Mirena insertion (11/24/18): Grade 2 view, Glidescope#3, ETT 7.0, atraumatic elective glidescope intubation x2, 2nd attempt successful History of breast biopsy History of D&C H/O bilateral salpingo-oophorectomy H/O breast reconstruction Implants failed due to infections > subsequent removal History of carpal tunnel release R/L History of exploratory laparotomy Hx of foot surgery left History of herniorrhaphy Umbilical with mesh History of cholecystectomy History of vascular access device Mediport power port (Right chest) History of bilateral mastectomy LUE restriction Past Anesthesia History No Hx of Anesthesia Complications and No Family Hx of Anesthesia Complications History of PONV No Hx of PONV and No Hx of Motion Sickness Social History Smoking Status: Former smoker tobacco type: cigarettes Smoking cigarettes per day: Quit 1984 Do You Dip or Chew Tobacco: No Smoking End Date: 1984 Hx Alcohol Use: No Hx Substance Use: No substance use type: does not use Physical Exam Vital Signs Last Vital Signs Temp 37.7 C H 12/26/23 12:20 Pulse 118 H 12/26/23 12:20 Resp 22 12/26/23 12:20 BP 138/69 12/26/23 12:20 Pulse Ox 98 12/26/23 12:20 O2 Del Method Nasal Cannula 12/26/23 12:20 O2 Flow Rate 2 12/26/23 12:20 ENMT Mouth: no dentition abnormality Thyromental Distance: > or= 3.5 Finger Breadths Mallampati Class: II Neck normal visual inspection and + limited neck extension Respiratory normal respiratory effort Auscultation: lungs clear to auscultation bilaterally Cardiovascular Rate/Rhythm: regular rate and regular rhythm Psychiatric Orientation: alert Testing Laboratory Results 12/26/23 09:12 12/26/23 04:21 PT 16.7 Seconds (9.0-12.0) H 12/26/23 04:21 INR 1.6 (0.9-1.1) H 12/26/23 04:21 Hemoglobin A1c 6.7 % (4.5-5.6) H 12/26/23 04:21 Urine Color Yellow 12/26/23 03:08 Urine Appearance Clear (Clear) 12/26/23 03:08 Urine pH 5.5 (4.5-7.5) 12/26/23 03:08 Ur Specific [place] > 1.045 (1.000-1.030) H 12/26/23 03:08 Urine Protein Negative (Negative) 12/26/23 03:08 Urine Glucose (UA) 3+ (Negative) H 12/26/23 03:08 Urine Ketones 1+ (Negative) H 12/26/23 03:08 Urine Nitrite Negative (Negative) 12/26/23 03:08 Ur Leukocyte Esterase Trace (Negative) H 12/26/23 03:08 Urine WBC (Auto) 21-50 /hpf (0-5) H 12/26/23 03:08 Urine RBC (Auto) 3-5 /hpf (0-2) H 12/26/23 03:08 U Hyaline Cast (Auto) 0-2 /lpf (0-2) 12/26/23 03:08 U Epithel Cells (Auto) 3-5 /hpf (0-2) H 12/26/23 03:08 Urine Bacteria (Auto) None Seen (None Seen) 12/26/23 03:08 Blood Type A Positive 12/25/23 20:39 Antibody Screen NEGATIVE 12/25/23 20:39 12/26/23 12/26/23 06:10 00:50 POC Glucose 232 H 351 H*
[2023-12-26] MEDS ORDERED: SUGAMMADEX SODIUM 200 MG/2 ML VIAL IV ONE (13:18)
[2023-12-26] MEDS: rOPINIRole HCL 0.25 MG TABLET PO PRN (15:41)
--- NOTE | 2023-12-26 15:50 | GI REPORT ---
[facility] Patient: CHANDNI CORDERO : 1955 Sex at : Female Age: 68 Years Procedure: Upper GI endoscopy Date: 12/26/2023 Attending Physician: Jaswant Charlton MD Referring MD: Referred Self Indications: - Active gastrointestinal bleeding Medications: - Monitored Anesthesia Care Complications: - No immediate complications. Procedure: - Prior to the procedure, a History and Physical was performed, and patient medications and allergies were reviewed. The patient's tolerance of previous anesthesia was also reviewed. The risks and benefits of the procedure and the sedation options and risks were discussed with the patient. All questions were answered, and informed consent was obtained. [Anticoagulant Agents] [Days Prior to Procedure]. [ASA Grade]. After reviewing the risks and benefits, the patient was deemed in satisfactory condition to undergo the procedure. - The egd scope was introduced through the mouth and advanced to the second part of the duodenum. - The upper GI endoscopy was accomplished without difficulty. - The patient tolerated the procedure well. Findings: - The examined esophagus was normal. - Hematin (altered blood/iheopy-szvdlg-jder material) was found in the gastric fundus and in the gastric body. Fluid aspiration was performed. - A single greater than 50 mm pedunculated polyp with [bleeding] and stigmata of recent bleeding was found in the gastric body. Area was successfully injected with 2 mL of a solution of 1:49090 epinephrine for hemostasis. To prevent bleeding after the polypectomy, three hemostatic clips were successfully placed. [Bleeding present]. The polyp was removed with a hot snare. Resection was complete, and retrieval was complete. - The examined duodenum was normal. Impression: - Normal esophagus. - Hematin (altered blood/cizpfz-rhwcob-giij material) in the gastric fundus and in the gastric body. Fluid aspiration performed. - A single gastric polyp. Resected and retrieved. Injected. Clips were placed. - Normal examined duodenum. Recommendation: - Resume previous diet. - Patient has a contact number available for emergencies. The signs and symptoms of potential delayed complications were discussed with the patient. Return to normal activities tomorrow. Written discharge instructions were provided to the patient. Procedure Code(s): - 83266-05, Esophagogastroduodenoscopy, flexible, transoral; with control of bleeding, any method - 94032, Esophagogastroduodenoscopy, flexible, transoral; with removal of tumor(s), polyp(s), or other lesion(s) by snare technique Diagnosis Code(s): - K92.2, Gastrointestinal hemorrhage, unspecified - K31.7, Polyp of stomach and duodenum CPT(R) - 2022 copyright [employer]. All Rights Reserved. The CPT codes, CCI edits and ICD codes generated are intended as suggestions and were generated based on input data. These codes are preliminary and upon compact assembler review may be revised to meet current compliance and payer requirements. The provider is responsible for the final determination of appropriate codes, and modifiers. Jaswant Charlton MD This document has been electronically signed. Note Initiated:12/26/2023 Note Completed:12/26/2023 3:49 PM \\[id number]
--- NOTE | 2023-12-26 16:04 | Anesthesiology Progress Note ---
Date of Service December 26, 2023 Anesthesia Post Procedure Vital Signs Vital Signs: Temp Pulse Pulse Pulse Resp BP BP 12/26/23 15:00 98.4 F 126 H 18 12/26/23 14:45 98.4 F 128 H 18 12/26/23 14:20 115 H 22 12/26/23 14:10 100.2 F H 117 H 22 12/26/23 14:00 115 H 22 12/26/23 13:50 115 H 20 12/26/23 13:40 99.5 F 115 H 18 12/26/23 12:20 99.9 F H 118 H 22 12/26/23 11:30 98.4 F 108 H 20 12/26/23 09:41 122 H 12/26/23 09:41 12/26/23 07:29 99.3 F 132 H 16 134/83 12/26/23 06:29 98.8 F 126 H 16 110/71 12/26/23 05:59 97.9 F 129 H 18 108/70 12/26/23 05:44 97.9 F 123 H 16 111/71 12/26/23 05:28 99.0 F 121 H 16 114/73 12/26/23 03:47 98.6 F 129 H 18 12/26/23 01:05 98.8 F 120 H 16 106/61 12/26/23 00:41 98.8 F 121 H 16 85/58 L 12/26/23 00:41 12/26/23 00:30 131 H 12/26/23 00:30 12/26/23 00:30 98.8 F 120 H 16 85/58 L 12/25/23 23:55 129 H 12/25/23 23:51 119 H 28 H 125/78 12/25/23 23:20 97.9 F 115 H 23 118/47 L 12/25/23 22:50 98.4 F 116 H 24 97/63 L 12/25/23 22:35 98.6 F 116 H 19 108/68 12/25/23 22:30 128/101 H 12/25/23 22:25 108/66 12/25/23 22:20 128/68 12/25/23 22:20 98.8 F 118 H 20 128/68 12/25/23 22:18 119 H 13 12/25/23 22:16 93/55 L 12/25/23 22:09 114 H 13 12/25/23 22:06 115 H 22 12/25/23 22:00 98.8 F 12/25/23 21:40 139/75 12/25/23 21:36 120 H 21 12/25/23 21:35 127/70 12/25/23 21:35 127/70 12/25/23 21:30 118 H 14 12/25/23 21:15 118 H 17 12/25/23 21:11 128/65 12/25/23 21:01 135/76 12/25/23 21:00 120 H 20 12/25/23 20:55 124/72 12/25/23 20:51 116 H 28 H 12/25/23 20:50 120/72 12/25/23 20:50 120/72 12/25/23 20:50 12/25/23 20:49 114 H 12/25/23 20:45 111/79 12/25/23 20:39 109 H 20 12/25/23 20:31 131/93 12/25/23 20:24 115 H 19 12/25/23 20:18 113 H 18 12/25/23 20:11 112 H 19 12/25/23 20:09 113 H 16 132/65 12/25/23 20:08 132/65 12/25/23 20:06 117 H 20 12/25/23 20:04 98.1 F 124 H 23 132/65 BP Pulse Ox Pulse Ox O2 Del Method O2 Del Method O2 Flow Rate O2 Flow Rate 12/26/23 15:00 129/67 97 Room Air 12/26/23 14:45 120/67 97 Room Air 12/26/23 14:20 142/74 H 95 Room Air 12/26/23 14:10 156/74 H 96 Room Air 12/26/23 14:00 162/75 H 98 Room Air 12/26/23 13:50 158/85 H 98 Oxymask 3 12/26/23 13:40 172/75 H 100 Oxymask 6 12/26/23 12:20 138/69 98 Nasal Cannula 2 12/26/23 11:30 125/71 96 Nasal Cannula 3 12/26/23 09:41 12/26/23 09:41 Nasal Cannula 3 12/26/23 07:29 98 10/21/24 06:29 100 3 12/26/23 05:59 100 12/26/23 05:44 100 3 12/26/23 05:28 97 3 12/26/23 03:47 97/66 L 99 Nasal Cannula 3 12/26/23 01:05 12/26/23 00:41 98 Room Air 12/26/23 00:41 97 Room Air, Nasal Cannula 3 12/26/23 00:30 12/26/23 00:30 Room Air 12/26/23 00:30 98 Room Air 12/25/23 23:55 12/25/23 23:51 96 Room Air 12/25/23 23:20 96 12/25/23 22:50 97 12/25/23 22:35 97 12/25/23 22:30 12/25/23 22:25 12/25/23 22:20 12/25/23 22:20 98 12/25/23 22:18 99 Room Air 12/25/23 22:16 12/25/23 22:09 97 12/25/23 22:06 98 Room Air 12/25/23 22:00 12/25/23 21:40 12/25/23 21:36 99 12/25/23 21:35 12/25/23 21:35 12/25/23 21:30 99 12/25/23 21:15 99 Room Air 12/25/23 21:11 12/25/23 21:01 12/25/23 21:00 100 12/25/23 20:55 12/25/23 20:51 98 12/25/23 20:50 12/25/23 20:50 12/25/23 20:50 99 Room Air 12/25/23 20:49 12/25/23 20:45 12/25/23 20:39 96 12/25/23 20:31 12/25/23 20:24 96 12/25/23 20:18 96 12/25/23 20:11 97 Room Air 12/25/23 20:09 97 Room Air 12/25/23 20:08 12/25/23 20:06 12/25/23 20:04 97 Room Air Pain Intensity Abdomen: Pain Intensity: 8 Transfer of Care Handoff Completed per policy Notes Mental Status: alert / awake / arousable and participated in evaluation Patient Amnestic to Procedure: Yes Nausea / Vomiting: adequately controlled Pain: adequately controlled Airway Patency, RR, SpO2: stable & adequate BP & HR: stable & adequate Hydration State: stable & adequate Anesthetic Complications: no major complications apparent and Pt Satisfied with anesthetic care
--- NOTE | 2023-12-26 16:04 | Hospitalist Progress Note ---
Date of Service December 26, 2023 Assessment & Plan (1) Acute upper gastrointestinal bleeding: (2) Gastric polyp: (3) Acute blood loss anemia: (4) Sinus tachycardia: (5) Diabetes mellitus, type 2: (6) Chronic kidney disease (CKD): (7) Gastrointestinal hemorrhage on warfarin therapy: (8) Ileus: Plan Patient with acute blood loss anemia due to bleeding gastric polyp that was cauterized and removed in EGD today. Monitor hemoglobin, transfuse as needed Patient also seem to have a bit of an ileus on exam, we will slowly restart her diet over the next 24 hours. Reviewed GIs recommendations that she could resume her usual diet. Anticipate ileus and improving as bleeding source has been removed and her activity increases. Communication out to GI to ask their recommendations on when she can restart her warfarin, will continue to hold tonight Increase activity as tolerated Patient did have some issues with urinary retention, straight cath per orders, anticipate as her activity increases the urine retention issue will resolve on its own. Glucoses reviewed, continue treatment with insulin Follow-up pathology of gastric polyp outpatient Admission and Anticipated Discharge Date Admission Date: December 25, 2023 Subjective Patient reports still feeling nauseated. Issue with urine retention earlier today as well. Has not been able to get out of bed due to her nausea to sit on the commode. Physical Exam Physical Exam: Constitutional: Alert, nontoxic HEENT: Mucous membranes moist. Lungs: Clear to auscultation, decreased, no wheezes rales or rhonchi CV: S1-S2, regular Abdomen: Mildly distended, decreased bowel sounds, mild generalized tenderness Extremities: No significant edema Neuro: No focal deficits Psych: Cooperative, normal mood Results & Data Results & Data Vital Signs (Past 12 Hours) Vital Signs Temp Pulse Pulse Pulse Resp BP BP 12/26/23 15:00 36.9 C 126 H 18 129/67 12/26/23 14:45 36.9 C 128 H 18 120/67 12/26/23 14:20 115 H 22 142/74 H 12/26/23 14:10 37.9 C H 117 H 22 156/74 H 12/26/23 14:00 115 H 22 162/75 H 12/26/23 13:50 115 H 20 158/85 H 12/26/23 13:40 37.5 C 115 H 18 172/75 H 12/26/23 12:20 37.7 C H 118 H 22 138/69 12/26/23 11:30 36.9 C 108 H 20 125/71 12/26/23 09:41 122 H 12/26/23 09:41 12/26/23 07:29 37.4 C 132 H 16 134/83 12/26/23 06:29 37.1 C 126 H 16 110/71 12/26/23 05:59 36.6 C 129 H 18 108/70 12/26/23 05:44 36.6 C 123 H 16 111/71 12/26/23 05:28 37.2 C 121 H 16 114/73 Pulse Ox O2 Del Method O2 Flow Rate 12/26/23 15:00 97 Room Air 12/26/23 14:45 97 Room Air 12/26/23 14:20 95 Room Air 12/26/23 14:10 96 Room Air 12/26/23 14:00 98 Room Air 12/26/23 13:50 98 Oxymask 3 12/26/23 13:40 100 Oxymask 6 12/26/23 12:20 98 Nasal Cannula 2 12/26/23 11:30 96 Nasal Cannula 3 12/26/23 09:41 12/26/23 09:41 Nasal Cannula 3 12/26/23 07:29 98 12/26/23 06:29 100 3 12/26/23 05:59 100 12/26/23 05:44 100 3 12/26/23 05:28 97 3 Diagnostic Findings Reviewed imaging, laboratory and diagnostic studies. Pertinent findings as below. WBCs 14.1 Hemoglobin 8.4 Platelets 281 INR 1.6 Glucoses reviewed Hemoglobin A1c 6.7% Reviewed EGD report gastric polyp that was bleeding,
[2023-12-26 16:21] LABS: Hematocrit (blood only) 24.1 % (37.0-47.0); Hemoglobin 7.9 g/dl (12.0-16.0)
[2023-12-26] MEDS: MONTELUKAST SODIUM 10 MG TABLET PO SCH (20:21)
[2023-12-26] MEDS: FAMOTIDINE 40 MG TABLET PO SCH (20:21)
[2023-12-26] MEDS: LANTUS PER UNIT CHARGE SQ SCH (20:29)
[2023-12-26] MEDS ORDERED: LANTUS PER UNIT CHARGE SQ SCH (21:00)
[2023-12-27] MEDS: HEPARIN 100 UNIT/ML 5ML FLUSH FLUSH PRN (05:30)
[2023-12-27 06:35] LABS: Hematocrit (blood only) 18.9 % (37.0-47.0); Hemoglobin 5.9 g/dl (12.0-16.0); Mean Corpuscular Hemoglobin 27.2 pg (25.0-34.0); Mean Corpuscular Hgb Conc 31.2 g/dL (32.0-36.0); Mean Corpuscular Volume 87.1 fL (80.0-100.0); Mean Platelet Volume 10.7 fL (9.4-12.4); Nucleated RBC # (auto) 0.08 K/uL (0.00-0.12); Nucleated RBC % (auto) 0.5 %; Platelet Count 224 K/uL (130-400); RDW Coefficient of Variation 23.7 % (11.5-14.5); RDW Standard Deviation 72.4 fL (36.4-46.3); Red Blood Count 2.17 M/uL (4.20-5.40); White Blood Count 17.59 K/ul (4.8-10.8)
[2023-12-27] MEDS ORDERED: SODIUM CHLORIDE 0.9% 100 ML IV PRN ×2 (06:37→06:39)
[2023-12-27 06:49] LABS: BUN Creatinine Ratio 46.2 (10-20); Calcium 8.1 mg/dl (8.6-10.3); Creatinine Clr Calc Pharmacy 67.8 ml/min; Potassium 3.6 mmol/L (3.5-5.1)
[2023-12-27 06:51] LABS: Prothrombin Time 11.2 Seconds (9.0-12.0)
[2023-12-27] MEDS: PANTOprazole 40 MG TAB PO SCH (08:59)
[2023-12-27] MEDS ORDERED: Nursing to Pharmacy Communication SCH (09:15)
--- NOTE | 2023-12-27 10:18 | Gastroenterology Progress Note ---
Date of Service December 27, 2023 Assessment & Plan (1) Acute blood loss anemia: (2) Gastric polyp: Plan Patient tells me she is feeling better other than being tired. this may stem from her hgb drop to 5.9. she is being transfused. drop in hgb may be residual. hopefully this will start to trend upwards. Case was discussed with Dr. Charlton who also saw patient today. - continue to monitor hgb/hct. tranfuse as needed. - continue with protonix 40mg once daily. Admission and Anticipated Discharge Date Admission Date: December 25, 2023 Supervising Physician Co-Signing Physician Notes I saw and examined this patient with our nurse practitioner and agree with her assessment and plan. Despite hemoglobin dropped to 5.9 no evidence of overt bleeding. Patient denies hematemesis, melena or hematochezia. Suspect this hemoglobin level reflects her state prior to our endoscopic intervention. Continue to monitor hemoglobin hematocrit. Agree with blood transfusions. Await pathology of polyp that we removed. Will continue her on a proton pump inhibitor. Continue to hold anticoagulation if possible. Subjective Patient has not had any further nausea or vomiting. no abdominal pain. she tells me that overall she is feeling better other than being tired. s/p EGD 12/25 showing Normal esophagus. Hematin (altered blood/frfsqd-xmaacz-hipn material) in the gastric fundus and in the gastric body. Fluid aspiration performed. A single gastric polyp. Resected and retrieved. Injected. Clips were placed. Normal examined duodenum. she has not moved her bowels since procedure. hgb did drop from 7.9 to 5.9. she is currently being transfused. Review of Systems Review of Systems: All systems reviewed & are unremarkable except as noted in HPI & below Physical Exam Constitutional: WD/WN, vitals as above Respiratory: normal respiratory effort, lungs clear to auscultation Cardiovascular: Rate/Rhythm: regular rate and regular rhythm Gastrointestinal (Abdomen): normal bowel sounds, soft, nontender, no hepa tosplenomegaly Psychiatric: Orientation: alert and oriented x 3 Affect: euthymic affect Results & Data Results & Data Vital Signs (Past 12 Hours) Vital Signs Temp Pulse Pulse Resp BP BP Pulse Ox 12/27/23 09:30 98.2 F 109 H 19 101/64 96 12/27/23 09:00 98.4 F 111 H 18 114/68 93 12/27/23 08:45 98.4 F 117 H 19 103/65 93 12/27/23 08:30 98.4 F 112 H 19 98/48 L 94 12/27/23 07:00 113 H 12/27/23 06:59 98.1 F 112 H 17 100/63 99 12/27/23 03:00 98.2 F 112 H 20 113/72 99 12/27/23 02:31 117 H 12/27/23 00:41 12/26/23 23:40 98.2 F 108 H 22 105/73 95 Pulse Ox O2 Del Method O2 Del Method O2 Flow Rate 12/27/23 09:30 12/27/23 09:00 12/27/23 08:45 12/27/23 08:30 12/27/23 07:00 12/27/23 06:59 Nasal Cannula 2 12/27/23 03:00 Nasal Cannula 2 12/27/23 02:31 12/27/23 00:41 96 Room Air 12/26/23 23:40 Room Air Coding Level of Care Code 32925 SUB INP/OBS CARE 03/31MIN Diagnoses Acute blood loss anemia D62 Gastric polyp K31.7
[2023-12-27] MEDS ORDERED: COUGH DROP (SUGAR FREE) LOZ 24 LOZ/1 BOX BUCCAL PRN (12:15)
[2023-12-27] MEDS: INSULIN ASPART PER UNIT CHARGE SC SCH (12:17)
--- NOTE | 2023-12-27 13:01 | Hospitalist Progress Note ---
Date of Service December 27, 2023 Assessment & Plan (1) Acute upper gastrointestinal bleeding: (2) Gastric polyp: (3) Acute blood loss anemia: (4) Sinus tachycardia: (5) Diabetes mellitus, type 2: (6) Chronic kidney disease (CKD): (7) Gastrointestinal hemorrhage on warfarin therapy: (8) Ileus: Plan Patient status post gastric polypectomy now this morning with acute anemia. Suspect blood loss from base of polypectomy. No hematemesis at this point. Patient requires hospital level care for blood transfusion. Blood pressure was low with the blood loss. Communication with GI team, agreeable with blood transfusion and continued monitoring Maintain clear liquid diet at this time Continue insulin management of diabetes Urine retention is somewhat improved. Much better when she can sit on commode. Continue straight cath as needed Attempted to update , no answer Admission and Anticipated Discharge Date Admission Date: December 25, 2023 Subjective Patient reports feeling better, however significant drop in hemoglobin this morning. Receiving PRBCs Physical Exam Physical Exam: Constitutional: Alert, nontoxic in appearance HEENT: Mucous membranes moist. Lungs: Clear to auscultation, decreased, no wheezes rales or rhonchi CV: S1-S2, regular, slightly tachycardic Abdomen: Soft, nontender, nondistended, no tympany, improved Extremities: No significant edema Neuro: No focal deficits Psych: Cooperative, normal mood Results & Data Results & Data Vital Signs (Past 12 Hours) Vital Signs Temp Pulse Pulse Resp BP BP Pulse Ox 12/27/23 12:52 36.9 C 116 H 18 133/77 97 12/27/23 11:52 37.1 C 121 H 18 114/67 94 12/27/23 11:22 37.1 C 120 H 18 97/58 L 95 12/27/23 11:07 37.0 C 115 H 18 106/67 94 12/27/23 10:48 36.7 C 114 H 19 99/42 L 97 12/27/23 10:45 36.7 C 116 H 18 99/42 L 97 12/27/23 10:30 37.0 C 118 H 19 111/63 97 12/27/23 09:30 36.8 C 109 H 19 101/64 96 12/27/23 09:00 36.9 C 111 H 18 114/68 93 12/27/23 08:45 36.9 C 117 H 19 103/65 93 12/27/23 08:30 36.9 C 112 H 19 98/48 L 94 12/27/23 07:00 113 H 12/27/23 06:59 36.7 C 112 H 17 100/63 99 12/27/23 03:00 36.8 C 112 H 20 113/72 99 12/27/23 02:31 117 H O2 Del Method O2 Flow Rate 12/27/23 12:52 12/27/23 11:52 12/27/23 11:22 12/27/23 11:07 12/27/23 10:48 12/27/23 10:45 12/27/23 10:30 12/27/23 09:30 12/27/23 09:00 12/27/23 08:45 12/27/23 08:30 12/27/23 07:00 12/27/23 06:59 Nasal Cannula 2 12/27/23 03:00 Nasal Cannula 2 12/27/23 02:31 Diagnostic Findings Hemoglobin 5.9 WBC 17.5 Electrolytes stable Glucose 253
[2023-12-27 15:37] LABS: Hematocrit (blood only) 23.5 % (37.0-47.0); Hemoglobin 7.5 g/dl (12.0-16.0)
[2023-12-27] MEDS: ACETAMINOPHEN 325 MG TAB PO PRN (18:06)
[2023-12-28 06:41] LABS: Hemoglobin 7.1 g/dl (12.0-16.0); Mean Corpuscular Hemoglobin 28.5 pg (25.0-34.0); Mean Corpuscular Hgb Conc 32.3 g/dL (32.0-36.0); Mean Corpuscular Volume 88.4 fL (80.0-100.0); Mean Platelet Volume 10.2 fL (9.4-12.4); Nucleated RBC # (auto) 0.18 K/uL (0.00-0.12); Nucleated RBC % (auto) 1.7 %; Platelet Count 189 K/uL (130-400); RDW Coefficient of Variation 19.9 % (11.5-14.5); RDW Standard Deviation 62.4 fL (36.4-46.3); Red Blood Count 2.49 M/uL (4.20-5.40); White Blood Count 10.71 K/ul (4.8-10.8)
[2023-12-28 07:29] LABS: BUN Creatinine Ratio 29.9 (10-20); Calcium 7.5 mg/dl (8.6-10.3); Creatinine Clr Calc Pharmacy 90.3 ml/min; Potassium 3.3 mmol/L (3.5-5.1)
[2023-12-28] MEDS: POTASSIUM CHLORIDE CRTAB 20 MEQ TABCR PO STA (08:34)
--- NOTE | 2023-12-28 10:50 | Gastroenterology Progress Note ---
Date of Service December 28, 2023 Assessment & Plan (1) Hematemesis: Plan: Resolved. -Continue to monitor H/H -Continue to monitor for further GI bleeding -Continue Protonix 40 mg daily Admission and Anticipated Discharge Date Admission Date: December 25, 2023 Supervising Physician Co-Signing Physician Notes I saw and examined this patient with our nurse practitioner and agree with her assessment and plan. Continues to feel better no overt bleeding since endoscopy. Pathology positive for benign inflammatory polyp. Would continue her on a PPI daily. Can advance diet as tolerated. Subjective Patient is a 68 yo female with previous episode of hematemesis. She had an EGD on 12/26/23 that indicated old blood in the stomach along with a hyperplastic polyp. Her H/H has rise to 7.1/22 overall. She denies melena, hematemesis, BRBPR. She denies abdominal pain, nausea, or other symptoms. No other concerns at present. She continues on Protonix 40 mg daily. Review of Systems Gastrointestinal: no abdominal pain, no coffee ground emesis, no hematemesis, no blood in stools and no melena Physical Exam Gastrointestinal (Abdomen): normal bowel sounds, soft, nontender, no hepatosplenomegaly Results & Data Results & Data Vital Signs (Past 12 Hours) Vital Signs Temp Pulse Pulse Resp BP Pulse Ox O2 Del Method 12/28/23 10:25 36.6 C 76 18 112/69 94 Room Air 12/28/23 06:57 37.2 C 105 H 17 110/67 92 Room Air 12/28/23 06:50 110 H 12/28/23 03:29 37.2 C 170 H 18 110/67 92 Room Air 12/27/23 23:33 37.2 C 111 H 18 112/67 97 Room Air PG Care Time/CCT Total # of Minutes Spent Total Time Spent with Patient: Total time spent is greater than 50% in coordination of care (as documented) at patient's floor/unit and/or counseling patient: Coding Level of Care Code 99221 SUB INP/OBS CARE 3/50MIN Diagnoses Hematemesis K92.0
--- NOTE | 2023-12-28 12:19 | Hospitalist Progress Note ---
Date of Service December 28, 2023 Assessment & Plan (1) Acute upper gastrointestinal bleeding: (2) Gastric polyp: (3) Acute blood loss anemia: (4) Sinus tachycardia: (5) Diabetes mellitus, type 2: (6) Chronic kidney disease (CKD): (7) Gastrointestinal hemorrhage on warfarin therapy: (8) Ileus: Plan Patient with acute blood loss anemia due to gastric polyp and subsequent removal of polyp, appears to be stabilized after transfusion 1 unit of packed red blood cells yesterday. Patient's ileus and nausea has significantly improved as well, advance diet Encourage activity Okay to MedSur Monitor hemoglobin 24 hours, if remains stable with the advancing diet, anticipate discharge home tomorrow Replace potassium Continue to hold warfarin at this time allowing the polyp base to heal Continue to monitor glucose and managed with insulin Updated patient's via phone at the bedside with patient Admission and Anticipated Discharge Date Admission Date: December 25, 2023 Subjective Patient sitting in chair, feels improved today. No lightheadedness or dizziness. No chest pain or shortness of breath. No bloody stools that she is noted Physical Exam Physical Exam: Constitutional: Alert, up in chair HEENT: Mucous membranes moist. Lungs: Clear to auscultation, decreased, no wheezes rales or rhonchi CV: S1-S2, regular, borderline tachycardic Abdomen: Soft, nontender, nondistended, no tympany Extremities: No significant edema Neuro: No focal deficits Psych: Cooperative, normal mood Results & Data Results & Data Vital Signs (Past 12 Hours) Vital Signs Temp Pulse Pulse Resp BP Pulse Ox O2 Del Method 12/28/23 10:25 36.6 C 76 18 112/69 94 Room Air 12/28/23 06:57 37.2 C 105 H 17 110/67 92 Room Air 12/28/23 06:50 110 H 12/28/23 03:29 37.2 C 170 H 18 110/67 92 Room Air Diagnostic Findings Reviewed imaging, laboratory and diagnostic studies. Pertinent findings as below. Hemoglobin 7.1 Potassium 3.3 Glucose 183
[2023-12-28 15:22] LABS: Hematocrit (blood only) 21.4 % (37.0-47.0)
--- NOTE | 2023-12-29 05:12 | Electrocardiogram Report ---
Test Reason : Blood Pressure : */* mmHG Vent. Rate : 111 BPM Atrial Rate : 111 BPM P-R Int : 138 ms QRS Dur : 120 ms QT Int : 360 ms P-R-T Axes : 46 -76 41 degrees QTcB Int : 490 ms Sinus tachycardia Right bundle branch block Left anterior fascicular block Bifascicular block Abnormal ECG When compared with ECG of 15-Oct-2023 05:45, Nonspecific T wave abnormality no longer evident in Inferior leads T wave amplitude has increased in Lateral leads Confirmed by Jason Vaughn ([id number]) on 12/29/2023 5:12:01 AM Referred By: Confirmed By: Jason Vaughn
[2023-12-29] MEDS ORDERED: SODIUM CHLORIDE 0.9% 100 ML IV PRN (08:00)
[2023-12-29 08:52] LABS: Hematocrit (blood only) 25.3 % (37.0-47.0); Hemoglobin 8.2 g/dl (12.0-16.0); Mean Corpuscular Hemoglobin 29.3 pg (25.0-34.0); Mean Corpuscular Hgb Conc 32.4 g/dL (32.0-36.0); Mean Corpuscular Volume 90.4 fL (80.0-100.0); Mean Platelet Volume 10.3 fL (9.4-12.4); Nucleated RBC # (auto) 0.11 K/uL (0.00-0.12); Nucleated RBC % (auto) 1.4 %; Platelet Count 235 K/uL (130-400); RDW Coefficient of Variation 20.9 % (11.5-14.5); RDW Standard Deviation 64.6 fL (36.4-46.3); White Blood Count 8.13 K/ul (4.8-10.8)
[2023-12-29 09:18] LABS: Calcium 8.3 mg/dl (8.6-10.3); Potassium 3.6 mmol/L (3.5-5.1)
[2023-12-29 09:23] LABS: BUN Creatinine Ratio 14.9 (10-20)
[2023-12-29] MEDS ORDERED: LORazepam 0.5 MG TAB PO PRN (14:50)
--- NOTE | 2023-12-29 14:57 | Hospitalist Progress Note ---
Date of Service December 29, 2023 Assessment & Plan (1) Acute upper gastrointestinal bleeding: (2) Hyperplastic polyp of stomach: (3) Acute blood loss anemia: (4) Sinus tachycardia: (5) Diabetes mellitus, type 2: (6) Chronic kidney disease (CKD): (7) Gastrointestinal hemorrhage on warfarin therapy: (8) Ileus: Plan Patient with ongoing weakness and shortness of breath in the setting of recent acute blood loss anemia from bleeding gastric polyp. Patient still slow to recover, suspect some anxiety about going home Give 1 dose of Lasix after blood transfusion today Ativan as needed for anxiety Encouraged oral intake and activity Instructed patient to expect black stools for at least a few days as blood from her upper GI bleed continues to pass through the GI tract. If hemoglobin stable tomorrow discharge home Admission and Anticipated Discharge Date Admission Date: December 25, 2023 Subjective Patient seen this morning not feeling all that well. Plan was to consider discharge this afternoon if was doing well after blood transfusion. Seen again later this afternoon after blood transfusions states she feels weak and short of breath. Feels that she may be worsened this morning. Vital signs stable. Nursing suspects there is a component of anxiety and worry about going home. Patient did report black stool Physical Exam Physical Exam: Constitutional: Alert, obese HEENT: Mucous membranes moist. Lungs: Clear to auscultation, decreased, no wheezes rales or rhonchi CV: S1-S2, regular Abdomen: Soft, nontender, nondistended Extremities: No significant edema Neuro: No focal deficits Psych: Cooperative, normal mood Results & Data Results & Data Vital Signs (Past 12 Hours) Vital Signs Temp Pulse Pulse Pulse Resp BP BP 12/29/23 14:50 36.9 C 96 H 20 149/73 H 12/29/23 14:06 36.8 C 97 H 18 132/74 12/29/23 12:26 37.3 C 98 H 18 135/77 12/29/23 11:26 37.3 C 109 H 18 138/77 12/29/23 10:56 37.1 C 104 H 18 121/70 12/29/23 10:52 12/29/23 10:41 36.8 C 119 H 18 113/60 12/29/23 10:40 36.8 C 18 112/60 12/29/23 10:39 36.8 C 119 H 18 113/60 12/29/23 10:37 36.8 C 119 H 18 113/60 12/29/23 10:22 37.0 C 119 H 18 140/70 12/29/23 07:21 37.1 C 108 H 20 113/70 Pulse Ox O2 Del Method 12/29/23 14:50 99 Room Air 12/29/23 14:06 98 Room Air 12/29/23 12:26 97 12/29/23 11:26 97 12/29/23 10:56 93 12/29/23 10:52 Room Air 12/29/23 10:41 97 12/29/23 10:40 97 12/29/23 10:39 97 12/29/23 10:37 12/29/23 10:22 12/29/23 07:21 96 Room Air Diagnostic Findings Reviewed imaging, laboratory and diagnostic studies. Pertinent findings as below. Hemoglobin 8.2 Pathology gastric polypReviewed, hyperplastic polyp
[2023-12-29] MEDS: LORazepam 0.5 MG TAB PO PRN (15:00)
[2023-12-29] MEDS: FUROSEMIDE INJ 20 MG/2 ML VIAL IV ONE (15:01)
[2023-12-29 15:08] LABS: Hematocrit (blood only) 23.8 % (37.0-47.0); Hemoglobin 7.7 g/dl (12.0-16.0)
[2023-12-29] MEDS: oxyCODONE HCL IR 5 MG TAB (IMMEDIATE RELEASE) PO PRN (22:42)
[2023-12-30 08:31] LABS: Hematocrit (blood only) 26.9 % (37.0-47.0); Hemoglobin 8.7 g/dl (12.0-16.0); Mean Corpuscular Hemoglobin 28.7 pg (25.0-34.0); Mean Corpuscular Hgb Conc 32.3 g/dL (32.0-36.0); Mean Corpuscular Volume 88.8 fL (80.0-100.0); Mean Platelet Volume 10.1 fL (9.4-12.4); Nucleated RBC # (auto) 0.14 K/uL (0.00-0.12); Nucleated RBC % (auto) 1.5 %; Platelet Count 255 K/uL (130-400); RDW Coefficient of Variation 21.9 % (11.5-14.5); RDW Standard Deviation 62.9 fL (36.4-46.3); Red Blood Count 3.03 M/uL (4.20-5.40)
--- NOTE | 2023-12-30 18:11 | Hospitalist Progress Note ---
Date of Service December 30, 2023 Assessment & Plan (1) Acute upper gastrointestinal bleeding: (2) Hyperplastic polyp of stomach: (3) Acute blood loss anemia: (4) Sinus tachycardia: (5) Diabetes mellitus, type 2: (6) Chronic kidney disease (CKD): (7) Gastrointestinal hemorrhage on warfarin therapy: (8) Ileus: Plan Acute GI bleed/Melena Symptomatic anemia Acute blood loss anemia --S/P EGD:Normal esophagus. Hematin (altered blood/ubbfif-ytskki-wqvz material) in the gastric fundus and in the gastric body. Fluid aspiration performed. A single gastric polyp. Resected and retrieved. Injected. Clips were placed.Normal examined duodenum. -- Pathology consistent with inflamed hyperplastic polyp --Aspirin, Coumadin on hold --S/P 5 units PRBC --Appreciate GI input: Okay to resume Coumadin if no recurrence of bleeding --Will hold aspirin for now -- Continue Protonix -- Monitor H&H and transfuse as needed H/O PE/DVT Resume Coumadin as able Pericardial effusion on CT CT showed pericardial effusion measures up to 5 mm ECHO showed trivial pericardial effusion Monitor volume status IV Lasix as needed Follow-up as outpatient DM II HbA1c 6.7 Continue insulin while hospitalized Monitor BGs Other chronic conditions Chronic diastolic heart failure Paroxysmal SVT Hypertension Hyperlipidemia Bronchial asthma LORE on CPAP Gastroparesis Left breast cancer s/p surgery/BRCA1 positive mutation Inflammatory polyarthritis on methotrexate Fibromyalgia, RLS Anxiety/mood disorder Continue home medications as able DVT Px: SCDs for now CODE STATUS Full code Admission and Anticipated Discharge Date Admission Date: December 25, 2023 Subjective Patient is seen and examined at bedside States having minimal melena today Denies any chest pain, dyspnea, nausea, vomiting, abdominal pain Discussed with GI today No other complaints today Review of Systems Review of Systems: All systems reviewed & are unremarkable except as noted in Subjective Physical Exam Physical Exam: Physical Exam: Vitals signs as noted above General Appearance:Obese, no apparent distress Head: normocephalic, Atraumatic Eyes: normal inspection, EOMI Neck: supple, Trachea midline Respiratory/Chest: Normal breath sounds, CTA, No accessory muscle use Cardiovascular: S1, S2, No murmur Abdomen/GI:Soft, Non tender, protuberant, bowel sounds present Extremities/Musculoskeletal:normal inspection, no edema Neurologic/Psych:AAOX3, grossly no focal neurological deficits Skin: normal color, warm Results & Data Results & Data Vital Signs (Past 12 Hours) Vital Signs Temp Pulse Resp BP Pulse Ox O2 Del Method 12/30/23 17:24 97 H 136/76 12/30/23 15:43 36.9 C 97 H 16 141/78 H 96 Room Air, CPAP 12/30/23 08:27 97 H 117/66 12/30/23 07:16 36.9 C 89 16 142/75 H 96 Room Air, CPAP Laboratory Results Short CBC 12/30/23 Range/Units 08:17 WBC 9.10 (4.8-10.8) K/ul Hgb 8.7 L (12.0-16.0) g/dl Hct 26.9 L (37.0-47.0) % Plt Count 255 (130-400) K/uL
[2023-12-30 19:50] VITALS: TEMP 98.1
[2023-12-31 06:56] VITALS: BP 148/70; PULSE 93; RESP 17; O2SAT 94
[2023-12-31 07:43] LABS: Hematocrit (blood only) 25.6 % (37.0-47.0); Hemoglobin 8.1 g/dl (12.0-16.0)
--- NOTE | 2023-12-31 11:50 | Hospitalist Progress Note ---
Date of Service December 31, 2023 Assessment & Plan (1) Acute upper gastrointestinal bleeding: (2) Hyperplastic polyp of stomach: (3) Acute blood loss anemia: (4) Sinus tachycardia: (5) Diabetes mellitus, type 2: (6) Chronic kidney disease (CKD): (7) Gastrointestinal hemorrhage on warfarin therapy: (8) Ileus: Plan Acute GI bleed/Melena Symptomatic anemia Acute blood loss anemia --S/P EGD:Normal esophagus. Hematin (altered blood/dkqnkw-dggkod-gcca material) in the gastric fundus and in the gastric body. Fluid aspiration performed. A single gastric polyp. Resected and retrieved. Injected. Clips were placed.Normal examined duodenum. -- Pathology consistent with inflamed hyperplastic polyp --Aspirin, Coumadin on hold --S/P 5 units PRBC --Appreciate GI input: Okay to resume Coumadin if no recurrence of bleeding --Will hold aspirin for now -- Continue Protonix -- Monitor H&H and transfuse as needed Hemoglobin 8.1 today No recurrence of bleeding issues today Plan to be discharged home today Advised to follow-up with gastroenterology on discharge H/O PE/DVT Resume Coumadin on discharge Pericardial effusion on CT CT showed pericardial effusion measures up to 5 mm ECHO showed trivial pericardial effusion Monitor volume status IV Lasix as needed Follow-up as outpatient DM II HbA1c 6.7 Continue insulin while hospitalized Monitor BGs Other chronic conditions Chronic diastolic heart failure Paroxysmal SVT Hypertension Hyperlipidemia Bronchial asthma LORE on CPAP Gastroparesis Left breast cancer s/p surgery/BRCA1 positive mutation Inflammatory polyarthritis on methotrexate Fibromyalgia, RLS Anxiety/mood disorder Continue home medications as able DVT Px: SCDs for now CODE STATUS Full code Disposition Home Admission and Anticipated Discharge Date Admission Date: December 25, 2023 Subjective Patient is seen and examined at bedside States feeling tired today but otherwise no complaints No recurrence of bleeding today Denies any chest pain, dyspnea, nausea, vomiting, abdominal pain Prefers to be discharged home today Review of Systems Review of Systems: All systems reviewed & are unremarkable except as noted in Subjective Physical Exam Physical Exam: Physical Exam: Vitals signs as noted above General Appearance:Obese, no apparent distress Head: normocephalic, Atraumatic Eyes: normal inspection, EOMI Neck: supple, Trachea midline Respiratory/Chest: Normal breath sounds, CTA, No accessory muscle use Cardiovascular: S1, S2, No murmur Abdomen/GI:Soft, Non tender, protuberant, bowel sounds present Extremities/Musculoskeletal:normal inspection, no edema Neurologic/Psych:AAOX3, grossly no focal neurological deficits Skin: normal color, warm Results & Data Results & Data Vital Signs (Past 12 Hours) Vital Signs Pulse Resp BP Pulse Ox O2 Del Method 12/31/23 07:47 Room Air, CPAP 12/31/23 06:55 93 H 17 148/70 H 94 Nasal CPAP Laboratory Results Short CBC 12/31/23 Range/Units 06:29 Hgb 8.1 L (12.0-16.0) g/dl Hct 25.6 L (37.0-47.0) %
--- NOTE | 2023-12-31 11:58 | Discharge Summary ---
Date of Service December 31, 2023 Admission HPI Per Admitting Provider History obtained from patient, family, and records. Medical history significant for chronic diastolic heart failure (EF 55 to 60%, TTE 2023), PSVT, hypertension, hyperlipidemia, bronchial asthma, LORE on CPAP, PE on Coumadin, GERD, gastroparesis, chronic diarrhea, DM2 insulin requiring, left breast cancer status post surgery, BRCA1 positive mutation, chronic anemia (baseline hemoglobin of 11), inflammatory polyarthritis on methotrexate, fibromyalgia, RLS, anxiety/mood disorder, past tobacco abuse. Last confinement October 2023 under orthopedic spine service for cervical decompression for cervical myeloradiculopathy. Postop reaction to Decadron. Patient not feeling well today. Sinus congestion. Patient had nausea followed by hematemesis. No abdominal pain, chest pain. Denies black/bloody stools. Usual diarrhea symptoms. Exertional SOB as per patient. No cough symptoms. Denies headache symptoms. Denies OTC NSAID intake. Patient brought to ER for evaluation. IV Protonix, vitamin K, and 1 unit PRBC administered at the ER. Medical History as above 2019 EGD gastritis Surgical History : Breast reconstruction, carpal tunnel surgery, cystoscopy, dental surgery, skin abscess drainage, ex lap, left foot surgery, vascular procedures, modified radical mastectomy, cataract surgery, MONTEZ/BSO, cholecystectomy, umbilical hernia repair Family History : Asthma, breast cancer, ovarian cancer, bone cancer, heart disease Personal/Social history : Past tobacco abuse, no EtOH intake, retired [employer] employee Admission Exam Per Admitting Provider GENERAL: uncomfortable, morbidly obese, no respiratory distress SKIN: Pallor, warm HEENT: Pale palpebral conjunctivae, no ptosis, dry buccal mucosa NECK : Supple, short neck, no tenderness CHEST : Decreased breath sounds, no tenderness HEART : Tachycardic, no obvious murmurs ABDOMEN: Some distention, nontender EXTREMITIES : Minimal LE swelling, no LE tenderness, no other conspicuous deformities noted NEUROLOGIC : Coherent, no facial asymmetry, no other gross focality Principal Diagnosis Upper GI bleed due to gastric polyp Trivial pericardial effusion Discharge Data Allergies Allergy/AdvReac Type Severity Reaction Status Date / Time allopurinol Allergy Intermediate Unknown Verified 10/14/23 06:46 amitriptyline Allergy Intermediate Arms, leg Verified 10/14/23 06:46 swelling codeine Allergy Intermediate Pruritus, Verified 10/14/23 06:46 rash doxepin Allergy Intermediate Arms, leg Verified 10/14/23 06:46 swelling gabapentin Allergy Intermediate Arms, leg Verified 10/14/23 06:46 swelling sitagliptin Allergy Intermediate Arms, leg Verified 10/14/23 06:46 swelling mineral oil [From Vagisil] Allergy Mild Rash Verified 10/14/23 06:46 nickel Allergy Mild Rash Verified 10/14/23 06:46 potassium chloride Allergy Mild Pruritus, Verified 10/14/23 06:46 [From Klor-Con] rash resorcinol [From Vagisil] Allergy Mild Rash Verified 10/14/23 06:46 starch [From Vagisil] Allergy Mild Rash Verified 10/14/23 06:46 Tricyclic Antidepressants Allergy Unknown leg and Verified 10/14/23 14:20 and Tricy arm swelling clindamycin Allergy Unknown Verified 10/14/23 07:14 fluticasone furoate Allergy Swelling Verified 10/14/23 06:46 [From Breo Ellipta] of Lip/Tongue/Throat vilanterol Allergy Swelling Verified 10/14/23 06:46 [From Breo Ellipta] of Lip/Tongue/Throat adhesive AdvReac Intermediate Rash, Verified 10/14/23 06:46 itching (tape) dexamethasone [From Decadron] AdvReac Intermediate Tachycardia Verified 10/16/23 07:30 erythromycin base AdvReac Intermediate Severe Verified 10/14/23 06:46 stomach cramps Consultations Laboratory Results WBC 9.10 K/ul (4.8-10.8) 12/30/23 08:17 RBC 3.03 M/uL (4.20-5.40) L 12/30/23 08:17 Hgb 8.1 g/dl (12.0-16.0) L 12/31/23 06:29 POC Hgb 10.5 g/dl (12.0-16.0) L 12/25/23 20:15 Hct 25.6 % (37.0-47.0) L 12/31/23 06:29 POC Hct 31 % (37-47) L 12/25/23 20:15 MCV 88.8 fL (80.0-100.0) 12/30/23 08:17 MCH 28.7 pg (25.0-34.0) 12/30/23 08:17 MCHC 32.3 g/dL (32.0-36.0) 12/30/23 08:17 RDW Std Deviation 62.9 fL (36.4-46.3) H 12/30/23 08:17 RDW Coeff of Maris 21.9 % (11.5-14.5) H 12/30/23 08:17 Plt Count 255 K/uL (130-400) 12/30/23 08:17 MPV 10.1 fL (9.4-12.4) 12/30/23 08:17 Immature Gran % (Auto) 3.0 % 12/26/23 04:21 Neut % (Auto) 86.6 % 12/26/23 04:21 Lymph % (Auto) 7.0 % 12/26/23 04:21 [place] % (Auto) 3.0 % 12/26/23 04:21 Eos % (Auto) 0.0 % 12/26/23 04:21 Baso % (Auto) 0.4 % 12/26/23 04:21 Neut # (Auto) 12.26 K/uL (1.40-6.50) H 12/26/23 04:21 Lymph # (Auto) 0.99 K/uL (1.20-3.40) L 12/26/23 04:21 [place] # (Auto) 0.42 K/uL (0.11-0.59) 12/26/23 04:21 Eos # (Auto) 0.00 K/uL (0.00-0.50) 12/26/23 04:21 Baso # (Auto) 0.06 K/uL (0.00-0.20) 12/26/23 04:21 Immature Gran # (Auto) 0.42 K/uL (0.01-0.20) H 12/26/23 04:21 Absolute Nucleated RBC 0.14 K/uL (0.00-0.12) H 12/30/23 08:17 Nucleated RBC % (auto) 1.5 % 12/30/23 08:17 PT 11.2 Seconds (9.0-12.0) 12/27/23 05:23 INR 1.0 (0.9-1.1) 12/27/23 05:23 VBG pH 7.40 (7.36-7.41) 12/25/23 23:53 VBG pCO2 29 mmHg (38-50) L 12/25/23 23:53 VBG pO2 64 mmHg 12/25/23 23:53 VBG HCO3 18 mmol/L 12/25/23 23:53 VBG O2 Saturation 94.5 % 12/25/23 23:53 VBG Base Excess -5.5 mEq/L 12/25/23 23:53 POC Sodium 140 mmol/L (135-144) 12/25/23 20:15 Sodium 140 mmol/L (136-145) 12/29/23 08:26 POC Potassium 4.1 mmol/L (3.3-5.0) 12/25/23 20:15 Potassium 3.6 mmol/L (3.5-5.1) 12/29/23 08:26 POC Chloride 109 mmol/L (101-112) 12/25/23 20:15 Chloride 109 mmol/L (98-107) H 12/29/23 08:26 Carbon Dioxide 23 mmol/L (21-32) 12/29/23 08:26 POC Total CO2 16 mmol/L (24-31) L 12/25/23 20:15 Anion Gap 8 (3-11) 12/29/23 08:26 POC Anion Gap 20.0 mmol/L (16-25) 12/25/23 20:15 POC BUN 19 mg/dl (7-18) H 12/25/23 20:15 BUN 11 mg/dl (6-23) 12/29/23 08:26 Creatinine 0.74 mg/dl (0.6-1.2) 12/29/23 08:26 POC Creatinine 0.8 mg/dl (0.6-1.3) 12/25/23 20:15 Est Cr Clr Drug Dosing 94.0 ml/min 12/29/23 08:26 eGFR 88.62 12/29/23 08:26 BUN/Creatinine Ratio 14.9 (10-20) 12/29/23 08:26 Glucose 164 mg/dl (70-99(Fasting)) H 12/29/23 08:26 POC Glucose 200 mg/dl (70-99) H 12/31/23 11:19 POC Glucose (other) 294 mg/dl (70-99) H 12/25/23 20:15 Estimat Average Glucose 146 mg/dl 12/26/23 04:21 Hemoglobin A1c 6.7 % (4.5-5.6) H 12/26/23 04:21 Lactate 1.9 mmol/L (0.4-2.0) 12/26/23 09:12 Calcium 8.3 mg/dl (8.6-10.3) L 12/29/23 08:26 POC Ioniz Calcium Reina 1.19 mmol/l (1.12-1.32) 12/25/23 20:15 Magnesium 1.9 mg/dl (1.7-2.4) 12/25/23 20:05 Total Bilirubin 0.6 mg/dl (0.2-1.0) 12/25/23 20:05 AST 19 U/L (13-39) 12/25/23 20:05 ALT 18 U/L (7-52) 12/25/23 20:05 Alkaline Phosphatase 70 U/L (34-104) 12/25/23 20:05 Troponin I High Sens 9.8 pg/ml (0-14) 12/25/23 20:05 Total Protein 5.9 gm/dl (6.0-8.3) L 12/25/23 20:05 Albumin 3.6 gm/dl (3.4-5.0) 12/25/23 20:05 Globulin 2.3 gm/dl (2.5-4.0) L 12/25/23 20:05 Albumin/Globulin Ratio 1.6 (0.9-2) 12/25/23 20:05 Lipase 41 U/L (11-82) 12/25/23 20:05 Procalcitonin 0.10 ng/ml (0-0.5) 12/25/23 20:05 Urine Color Yellow 12/26/23 03:08 Urine Appearance Clear (Clear) 12/26/23 03:08 Urine pH 5.5 (4.5-7.5) 12/26/23 03:08 Ur Specific [place] > 1.045 (1.000-1.030) H 12/26/23 03:08 Urine Protein Negative (Negative) 12/26/23 03:08 Urine Glucose (UA) 3+ (Negative) H 12/26/23 03:08 Urine Ketones 1+ (Negative) H 12/26/23 03:08 Urine Blood Negative (Negative) 12/26/23 03:08 Urine Nitrite Negative (Negative) 12/26/23 03:08 Urine Bilirubin Negative (Negative) 12/26/23 03:08 Urine Urobilinogen Negative (Negative) 12/26/23 03:08 Ur Leukocyte Esterase Trace (Negative) H 12/26/23 03:08 Urine WBC (Auto) 21-50 /hpf (0-5) H 12/26/23 03:08 Urine RBC (Auto) 3-5 /hpf (0-2) H 12/26/23 03:08 U Hyaline Cast (Auto) 0-2 /lpf (0-2) 12/26/23 03:08 U Epithel Cells (Auto) 3-5 /hpf (0-2) H 12/26/23 03:08 Urine Bacteria (Auto) None Seen (None Seen) 12/26/23 03:08 Adenovirus (PCR) Not Detected (NotDetected) 12/25/23 23:32 B. pertussis DNA (PCR) Not Detected (NotDetected) 12/25/23 23:32 B.parapertussis DNA PCR Not Detected (NotDetected) 12/25/23 23:32 C. pneumoniae DNA (PCR) Not Detected (NotDetected) 12/25/23 23:32 Coronavirus OC43 (PCR) Not Detected (NotDetected) 12/25/23 23:32 Coronavirus HKU1 (PCR) Not Detected (NotDetected) 12/25/23 23:32 Coronavirus 229E (PCR) Not Detected (NotDetected) 12/25/23 23:32 SARS-CoV-2 (PCR) Not Detected (NotDetected) 12/25/23 23:32 Coronavirus NL63 (PCR) Not Detected (NotDetected) 12/25/23 23:32 Human Metapneumovir PCR Not Detected (NotDetected) 12/25/23 23:32 Influenza Type A (PCR) Not Detected (NotDetected) 12/25/23 23:32 Influenza Type B (PCR) Not Detected (NotDetected) 12/25/23 23:32 M. pneumoniae (PCR) Not Detected (NotDetected) 12/25/23 23:32 Parainfluenza 1 (PCR) Not Detected (NotDetected) 12/25/23 23:32 Parainfluenza 2 (PCR) Not Detected (NotDetected) 12/25/23 23:32 Parainfluenza 3 (PCR) Not Detected (NotDetected) 12/25/23 23:32 Parainfluenza 4 (PCR) Not Detected (NotDetected) 12/25/23 23:32 RSV (PCR) Not Detected (NotDetected) 12/25/23 23:32 Entero/Rhino (PCR) Not Detected (NotDetected) 12/25/23 23:32 Blood Type A Positive 12/29/23 08:26 Antibody Screen NEGATIVE 12/29/23 08:26 Crossmatch See Detail 12/29/23 08: Impressions Abdomen/Pelvis CTA 12/25/23 21:06 Exam(s): CTA ABDOMEN + PELVIS With Contrast IV Amt: 119ML OPTIRAY 320 EXAM: CT Angiography Abdomen and Pelvis With Intravenous Contrast CLINICAL HISTORY: Anthony hematemesis. TECHNIQUE: Axial computed tomographic angiography images of the abdomen and pelvis with intravenous contrast. CTDI is 28.14 mGy and DLP is 1795.33 mGy-cm. Automated exposure control was utilized for the study. A dose lowering technique was utilized adhering to the principles of ALARA. MIP reconstructed images were created and reviewed. CONTRAST: Patient received 119ML OPTIRAY 320 of IV contrast COMPARISON: No relevant prior studies available. FINDINGS: VASCULATURE: Aorta: Mild atherosclerosis of the aorta. No aortic aneurysm or dissection. Celiac trunk and mesenteric arteries: There is mild atherosclerosis of the origin of the celiac trunk, SMA and DARLIN without significant stenosis. Renal arteries: Minimal atherosclerosis of the origin of both renal arteries. No significant stenosis. Iliac arteries: There is atherosclerosis of the bilateral common, internal and external iliac arteries without significant stenosis. Lung bases: Unremarkable. No mass. No consolidation. ABDOMEN: Liver: Mild hepatomegaly. The liver measures 17.1 cm. No mass. Gallbladder and bile ducts: Unremarkable. No calcified stones. No ductal dilation. Pancreas: Unremarkable. No ductal dilation. No mass. Spleen: Unremarkable. No splenomegaly. Adrenals: Unremarkable. No mass. Kidneys and ureters: Simple appearing bilateral renal cysts are present, no follow up is needed. The kidneys are otherwise unremarkable. No hydronephrosis. Stomach and bowel: Unremarkable. No obstruction. No mucosal thickening. PELVIS: Appendix: Normal appendix. Bladder: Unremarkable. No mass. Reproductive: Unremarkable as visualized. ABDOMEN and PELVIS: Intraperitoneal space: Unremarkable. No significant fluid collection. No free air. Bones/joints: No acute fracture. No dislocation. Soft tissues: Unremarkable. Lymph nodes: Unremarkable. No enlarged lymph nodes. IMPRESSION: 1. No aortic aneurysm or dissection. 2. Mild hepatomegaly. Electronically signed by: Dayna Mosquera MD 12/25/23 22:46 PM Chest CTA 12/25/23 21:06 Exam(s): CTA CHEST W/WO Contrast IV Amt: 119ML OPTIRAY 320 EXAM: CT Angiography Chest Without and With Intravenous Contrast CLINICAL HISTORY: Anthony hematemesis. TECHNIQUE: Axial computed tomographic angiography images of the chest without and with intravenous contrast. MIPS images were created and reviewed. CTDI is 28.14 mGy and DLP is 951.03 mGy-cm. Automated exposure control was utilized for the study. A dose lowering technique was utilized adhering to the principles of ALARA. MIP reconstructed images were created and reviewed. CONTRAST: Patient received 119ML OPTIRAY 320 of IV contrast COMPARISON: CTA chest 07/10/2021. FINDINGS: Pulmonary arteries: Unremarkable. No pulmonary embolism. Aorta: Minimal atherosclerosis. No thoracic aortic aneurysm. Great vessels of aortic arch: There is mild atherosclerosis of the origin of the left subclavian artery. Lungs: Unremarkable. No mass. No consolidation. Pleural space: Unremarkable. No significant effusion. No pneumothorax. Heart: A pericardial effusion measures up to 5 mm. Coronary artery calcifications are present. No cardiomegaly. No evidence of RV dysfunction. Bones/joints: There are degenerative changes of the spine. No acute fracture. Soft tissues: Unremarkable. Lymph nodes: Unremarkable. No enlarged lymph nodes. Other findings: . IMPRESSION: 1. No pulmonary embolus. 2. A pericardial effusion measures up to 5 mm. Electronically signed by: Dayna Mosquera MD 12/25/23 22:44 PM Procedures Performed Operation Date: 12/26/23 09:15 Actual Procedures p EGD Polypectomy - Jaswant Charlton MD Ordered Studies 12/25/23 21:06 CTA abdomen pelvis w con [CT angio abdomen pelvis w con] Stat CTA chest dissec wo/w con [CT angio chest dissec wo/w con] Stat Hospital Course (1) Acute upper gastrointestinal bleeding: (2) Hyperplastic polyp of stomach: (3) Acute blood loss anemia: (4) Sinus tachycardia: (5) Diabetes mellitus, type 2: (6) Chronic kidney disease (CKD): (7) Gastrointestinal hemorrhage on warfarin therapy: (8) Ileus: Plan Acute GI bleed/Melena Symptomatic anemia Acute blood loss anemia --S/P EGD:Normal esophagus. Hematin (altered blood/eokcsq-oapzcg-miam material) in the gastric fundus and in the gastric body. Fluid aspiration performed. A single gastric polyp. Resected and retrieved. Injected. Clips were placed.Normal examined duodenum. -- Pathology consistent with inflamed hyperplastic polyp --Aspirin, Coumadin on hold --S/P 5 units PRBC --Appreciate GI input: Okay to resume Coumadin if no recurrence of bleeding --Will hold aspirin for now -- Continue Protonix -- Monitor H&H and transfuse as needed Hemoglobin 8.1 today No recurrence of bleeding issues today Plan to be discharged home today Advised to follow-up with gastroenterology on discharge H/O PE/DVT Resume Coumadin on discharge Pericardial effusion on CT CT showed pericardial effusion measures up to 5 mm ECHO showed trivial pericardial effusion Monitor volume status IV Lasix as needed Follow-up as outpatient DM II HbA1c 6.7 Continue insulin while hospitalized Monitor BGs Other chronic conditions Chronic diastolic heart failure Paroxysmal SVT Hypertension Hyperlipidemia Bronchial asthma LORE on CPAP Gastroparesis Left breast cancer s/p surgery/BRCA1 positive mutation Inflammatory polyarthritis on methotrexate Fibromyalgia, RLS Anxiety/mood disorder Continue home medications as able DVT Px: SCDs for now CODE STATUS Full code Disposition Home Total Time Total Time Spent Total Time Spent (In Minutes): 55 minutes Discharge Plan Discharge Items Patient Disposition: Home - Self-Care Reason For Visit: UGI BLEED, PERICARDIAL EFFUSION Discharge Diagnosis: Upper GI bleed due to gastric polyp Trivial pericardial effusion Activity: As commented below Activity Comment: Increase activity as tolerated Exercise/Sports: Gradually increase as tolerated Non-emergency contact: Primary Care Provider, Transfer And [employer] Operator and Oncologist Call non-emergency contact if: you have any medication questions, your symptoms worsen and your temperature is above 101.5 Follow-up/Referrals: Landon Quiles DO [Primary Care Provider] - (Date & Time 01/04/2024 9:00 AM Provider Quiles, Landon Sherrick, DO [facility] [place] ) Dahlia Chand Jr, MD [Physician] - Diet: Carb Consistent or DM2 Diet Texture: Dental soft (bite-sized) Addtl Attending Provider Instructions: Anticipate you may have some black stools over the next couple days. Should get less with time. Follow-up with your primary care physician Dr. Landon Quiles on 01/04/2024 9:00 AM Follow-up with your [facility] internal audit consultant as recommended -- Hold to take your aspirin as recommended until further recommendations from your primary care physician/internal audit consultant --You can resume your Coumadin on 01/02/2024 if no recurrence of bleeding. Seek immediate medical attention if your symptoms reoccur or worsen Please take all medications as instructed on discharge list below. Please call if you have any questions or problems. You can reach a [facility] hospitalist on duty at [facility] 24 hours a day by calling [phone] Pending Studies at Discharge: No Stand-Alone Forms: My [facility], Smoking Cessation Medications and DC Order Prescriptions: New pantoprazole 40 mg Tablet,Delayed Release (Dr/Ec) 40 mg PO QAM Qty: 30 1RF Continued ondansetron 4 mg tablet,disintegrating 4 mg PO Q8H PRN (Reason: nausea and vomiting) Qty: 7 0RF magnesium chloride 64 mg Tablet,Delayed Release (Dr/Ec) 128 - 192 mg PO TID Rx Instructions: TAKES 3 TABS-192 MG WITH BREAKFAST AND DINNER, THEN 2 TABS-128 MG AT HS. atorvastatin 20 mg Tablet 20 mg PO QAM potassium citrate 10 mEq (1,080 mg) Tablet Extended Release See Rx Instructions .ROUTE .COMPLEX Rx Instructions: takes 2tablets qam/3tablets qpm metoprolol tartrate 25 mg Tablet 12.5 mg PO BIDM medroxyprogesterone [Provera] 10 mg Tablet 10 mg PO QAM ropinirole 0.5 mg tablet 0.5 mg PO HS PRN (Reason: Restless Leg(S)) vitamin B complex Tablet 1 tab PO QAM montelukast 10 mg tablet 10 mg PO HS metformin 500 mg tablet extended release 24 hr 2,000 mg PO HS Multivitamin 50 Plus Tablet 1 tab PO QAM verapamil 120 mg tablet extended release 120 mg PO TID methotrexate sodium 25 mg/mL solution 20 mg subcut UD Rx Instructions: PATIENT STATES SHE TAKES 0.8ML ONCE WEEKLY ON TUESDAY EVENINGS ferrous sulfate 325 mg (65 mg iron) Tablet 325 mg PO DAILY leucovorin calcium 5 mg tablet 5 mg PO WK Rx Instructions: ON TUESDAY MORNINGS furosemide 20 mg tablet 20 mg PO QAM escitalopram oxalate 20 mg tablet 20 mg PO QAM biotin 10 mg Tablet 10 mg PO BID albuterol sulfate [Ventolin HFA] 90 mcg/actuation Hfa Aerosol Inhaler 2 puff INHALATION Q4H PRN (Reason: Wheezing) cyclosporine [Restasis] 0.05 % Dropperette 1 drp OPHTHALMIC (EYE) Q12H Gemtesa 75 mg tablet 75 mg PO QAM bupropion HCl 150 mg Tablet Extended Release 24 Hr 150 mg PO QAM insulin glargine [Basaglar KwikPen U-100 Insulin] 100 unit/mL (3 mL) Insulin Pen 10 unit SUBCUT HS famotidine 40 mg tablet 40 mg PO HS fluticasone propion-salmeterol [Advair HFA] 230-21 mcg/actuation HFA aerosol inhaler 2 inh INHALATION BID Jardiance 25 mg tablet 25 mg PO DAILY tramadol 50 mg tablet 50 mg PO Q6H PRN (Reason: pain, moderate) Qty: 30 0RF oxycodone 5 mg tablet 5 mg PO Q6H PRN (Reason: pain) Qty: 30 0RF Ozempic 2 mg/dose (8 mg/3 mL) pen injector 2 mg SUBCUT WK Rx Instructions: FRIDAYS sodium bicarbonate 650 mg Tablet 650 mg PO AMHS levalbuterol tartrate 45 mcg/actuation HFA aerosol inhaler 1 puff INHALATION Q4 PRN (Reason: Wheezing) Held aspirin 81 mg Tablet,Delayed Release (Dr/Ec) 81 mg PO QAM Hold Instructions: Until further recommendations from a primary care physician warfarin 5 mg Tablet 5 mg PO 2XWK Hold Instructions: Resume on 01/02/24. Rx Instructions: tuesday and warfarin 5 mg tablet 7.5 mg PO 5XWK Hold Instructions: Resume on 01/02/24. Rx Instructions: tuesday, tuesday, tuesday, tuesday, tuesday Discontinued lansoprazole 15 mg capsule,delayed release(DR/EC) 15 mg PO DAILY Discharge Orders: Discharge Order (Routine); Ordered 12/31/23 Ordered By: Miguel A Watts/Other Patient Handouts: Managing Type 2 Diabetes Admission Data Admit Date/Time: 12/25/23 23:22 Attending Provider: Miguel A Shepard Admit Provider: Que Denis Primary Care Provider: Landon Quiles Other Providers: Dahlia Chand Jr; Que Denis
== END 2023-12-31 13:54 | disposition home or self-care (01) | DRG 394 ==
LOC: ED 19:55 → 2S 23:22 → SUATTDRO 23:22 → 2S 23:59 → 3N 12-28 14:01

== ENCOUNTER 2024-01-07 10:03 | Inpatient (IN) ==
--- OUTSIDE RECORDS SUMMARY | 2024-01-07 10:10 | External Medical Summary | Summary of Care ---
Author Name Unknown Organization [facility] Address [address] [place] [address] Phone [phone] Care Team Providers Care Pipeline Operator Name Role Phone Landon Quiles DO Primary Care Provider Reason for Visit * Reason Onset Date Comments Nurse Documentation 01/06/2024 Encounter Details Date Type Department Care Team (Late st Contact Info) Description 01/06/2024 10:00 AM EDT Scheduled Telephone Ancillary [facility] [address] [facility] [place] [address] Prac, Nurse Follow Up Phone Call Schedule [facility] [address] [facility] [place] [address] Arrived Allergies Active Allergy Reactions Criticality Noted Date [...] as of this encounter (statuses as of 01/06/2024) Medications Medication Sig Dispensed Refills Start Date End Date Status TYLENOL ARTHRITIS PAIN 650 MG PO TBCR 2 at bedtime Act alden NEBULIZER COMPRESSOR MISCIndications:Ast hma, severity to be determined Use as directed 1 Each 1 05/29/2012 Active Additional Information Patient not taking.Informant: Patient, Reported on 11/16/2023 Multiple Vitamins-Minerals (WOMENS 50+ ADVANCED) CAPS Take by mouth. Active Biotin 10 MG TABS Take by mouth. Act alden B Complex-Folic Acid (SUPER B COMPLEX MAXI) TABS Take by mouth. Ac tive CPAP every night at bedtime. Auto 10-20 cm Active Spacer/Aero-Holding Chambers Device Use with advair and albuterol 1 Each 12/28/2021 Active Sodium Fluoride 1.1 % Dental Gel Apply a thin ribbon to toothbrush. [place] twice daily in place of normal toothpaste 100 mL 4 07/28/2022 Active rOPINIRole HCl 0.5 MG Oral Tablet (Requip)Indications :Restless leg syndrome TAKE 1 TABLET BY MOUTH AT BEDTIME NEEDED RESTLESS LEGS 90 Tablet 3 12/06/2022 Active Nystatin-Triamcinol one 900297-8.1 UNIT/GM-% External Cream (Mycolog)Indication s:Tinea cruris APPLY TOPICALLY TO AFFECTED AREA TWO TIMES A DAY FOR 14 DAYS 120 g 1 12/09/2022 Active Warfarin Sodium 5 MG Oral Tablet (Coumadin)Indicatio ns:History of pulmonary embolism,PAT (paroxysmal atrial tachycardia) (HCC) Take by mouth 5 mg ( 1 tablet) every Sun, Shira; 7.5 mg (1 1/2 tablets) all other days or as directed 130 Tablet 3 12/13/2022 Active cycloSPORINE 0.05 % Ophthalmic Emulsion (Restasis) Instill 1 drop into both eyes every 12 hours 60 Each 6 12/21/2022 Active Additional Information Patient not taking.Reported on 11/16/2023 GNP UltiCare Pen Filer 32G X 4 MM (Insulin Pen Needle) use to inject basaglar once daily 100 Each 3 12/27/2022 Active Ondansetron HCl 4 MG Oral TabletIndications:N ausea Take 1 Tablet by mouth every 6 hours as needed for Nausea. 60 Tablet 3 02/02/2023 Active Empagliflozin 25 MG Oral Tablet (Jardiance)Indicati ons:Type 2 diabetes mellitus with hemoglobin A1c goal of less than 7.0% (HCC) Take 1 Tablet by mouth in the morning. 90 Tablet 3 02/14/2023 Active Potassium Citrate ER 10 MEQ (1080 MG) Oral Tablet Extended Release (Urocit-K) TAKE 3 TABLETS BY MOUTH IN THE MORNING THEN 2 TABLETS IN THE EVENING 150 Tablet 6 06/06/2023 5 Active Additional Information Patient taking differently: 2 in the morning 3 in the evening, Reported on 06/13/2023 Methotrexate Sodium 50 MG/2ML Injection SolutionIndications :Inflammatory polyarthritis (HCC) INJECT UNDER THE SKIN (0.8ML) 20MG ONCE A WEEK. 4 mL 5 06/08/2023 Active Levalbuterol Tartrate 45 MCG/ACT Inhalation Aerosol (Xopenex HFA)Indications:Mod erate persistent asthma without complication Inhale 1 Puff by mouth every 4 hours as needed for Wheezing. 15 g 3 06/28/2023 Active Ferrous Sulfate 325 (65 Fe) MG Oral Tablet (FeroSul)Indication s:Iron deficiency anemia due to chronic blood loss Take 1 Tablet by mouth daily. 90 Tablet 1 07/18/2023 Active Sodium Bicarbonate 650 MG Oral Tablet Take 1 Tablet by mouth in the morning and 1 Tablet before bedtime. 180 Tablet 3 07/18/2023 Active medroxyPROGESTERone Acetate 10 MG Oral Tablet (Provera)Indication s:Endometrial hyperplasia without atypia, simple Take 1 Tablet by mouth in the morning. 30 Tablet 12 07/18/2023 Active Amoxicillin 500 MG Oral Capsule (Amoxil) take 1 capsule (500 mg) by oral route 2 times per day. Start this 2 days before tooth extraction. 14 Capsule 08/03/2023 Active Additional Information Patient not taking.Reported on 08/22/2023 BD General Administrator Tray 27G X 1/2" 1 ML Kit (Tuberculin-Allergy Syringes)Indication s:Inflammatory polyarthritis (HCC) USE DIRECTED TO INJECT METHOTREXATE 0.6 ML ONCE A WEEK 25 Kit 5 08/08/2023 Active Leucovorin Calcium 5 MG Oral Tablet (Wellcovorin) Take 1 Tablet by mouth once a week. 12 Tablet 9 08/09/2023 Active Gemtesa 75 MG Oral Tablet (Vibegron) Take 1 Tablet by mouth in the morning. 90 Tablet 3 08/16/2023 Active Escitalopram Oxalate 20 MG Oral Tablet (Lexapro) TAKE ONE TABLET BY MOUTH DAILY 90 Tablet 3 08/16/2023 5 Active Verapamil HCl ER 120 MG Oral Tablet Extended Release (Isoptin SR)Indications:PAT (paroxysmal atrial tachycardia) ([facility]) TAKE 1 TABLET BY MOUTH 3 TIMES A DAY. 270 Tablet 3 08/31/2023 5 Active Fluticasone-Salmete rol 230-21 MCG/ACT Inhalation Aerosol (Advair HFA) Inhale 2 Puffs by mouth in the morning and 2 Puffs before bedtime. 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 05/12/2023 Active metFORMIN HCl ER 500 MG Oral Tablet Extended Release 24 Hour (Glucophage XR) TAKE 4 TABLETS BY MOUTH DAILY WITH DINNER. 360 Tablet 3 10/29/2023 5 Active FreeStyle Dewey 3 SensorIndications:T ype 2 diabetes mellitus with hemoglobin A1c goal of less than 8.0% ([facility]) Use as directed. 6 Each 3 12/07/2023 Active Insulin Glargine Solostar 100 UNIT/ML Subcutaneous Solution Pen-injector (Basagljewel Huertas)Indications :Type 2 diabetes mellitus with hemoglobin A1c goal of less than 7.0% (HCC) Inject 10 Units under the skin every night at bedtime. Titrate up as direct by clinic. Max daily dose of 25 units. 30 mL 01/04/2024 Active Pantoprazole Sodium 40 MG Oral Tablet Delayed Release (Protonix) Take 1 Tablet by mouth in the morning. 90 Tablet 3 01/04/2024 Active Saccharomyces boulardii 250 MG Oral Capsule (Florastor)Indicati ons:Acute recurrent maxillary sinusitis Take 1 Capsule by mouth in the morning and 1 Capsule before bedtime. 30 Capsule 01/04/2024 Active Cephalexin 500 MG Oral CapsuleIndications: Acute recurrent maxillary sinusitis Take 1 Capsule by mouth in the morning and 1 Capsule before bedtime. Do all this for 10 days. 20 Capsule 01/04/2024 Active oxyCODONE HCl 5 MG Oral Tablet (Oxy IR)Indications:Infl ammatory polyarthritis (HCC) Take 1 Tablet by mouth every 4 hours as needed for Pain, Moderate. 60 Tablet 01/04/2024 Active Famotidine 40 MG Oral Tablet (Pepcid) Take 1 Tablet by mouth at bedtime. 90 Tablet 01/05/2024 Active Atorvastatin Calcium 20 MG Oral Tablet (Lipitor)Indication s:Dyslipidemia, goal LDL below 100 TAKE 1 TABLET BY MOUTH IN THE MORNING 90 Tablet 3 01/05/2024 Active Ozempic (2 MG/DOSE) 8 MG/3ML Subcutaneous Solution Pen-injector (Semaglutide (2 MG/DOSE))Indication s:Type 2 diabetes mellitus with hemoglobin A1c goal of less than 8.0% (HCC) Inject 2 mg under the skin once a week. 9 mL 3 01/05/2024 Active Metoprolol Tartrate 25 MG Oral Tablet (Lopressor)Indicati ons:HTN, goal below 130/80 TAKE 1/2 TABLET BY MOUTH IN THE MORNING AND TAKE 1/2 TABLET BEFORE BEDTIME 90 Tablet 3 01/05/2024 Active documented as of this encounter (statuses as of 01/06/2024) Active Problems Problem Noted Date Diagnosed Date Hematemesis without nausea 01/04/2024 Hiatal hernia 09/19/2023 Pleural effusion 06/28/2023 Malignant [...] as of this encounter (statuses as of 01/06/2024) Resolved Problems Problem Noted Date Diagnosed Date [...] as of this encounter (statuses as of 01/06/2024) Immunizations Name Administration Dates Next Due COVID-19 mRNA, LNP-s, No Pre serve, 2-Dose Series ([place]) 12/18/2020,06/20/2020,05/30/2020 COVID-19, LNP-s, No Preserve , Marshal-sucrose, Ages 12+ (Pfizer) 06/25/2021 Covid-19, Mrna, Lnp-s, Pf, B ivalent, 30 Mcg, IM, 12 yrs and above ([place]) 12/31/2021 H1N1 2009 Influenza, IM 02/24/2009 Hepatitis [...] y our heating, water, or electric bill? (Adult - for ages 18 years and over) Not on file 12/29/2023 Is your family able to pay t he heat, water, or electric bill? (Household - for ages 0-17 years) Not on file 12/29/2023 Does your family have access to good internet? (Household - for ages 0-17 years) Not on file 12/29/2023 Employment Status Answer Date Recorded Are you unemployed or without regular income? No 12/28/2022 Does the household have a re gular source of income? (Household - for ages 0-17 years) Not on file 12/28/2022 Social Connections Answer Date Recorded How often do you feel lonely or isolated from those around you? (Adult - for ages 18 years and over) Not on file 12/29/2023 Financial Resource Strain Answer Date R ecorded [...] encounter Miscellaneous Notes * Telephone Encounter - Roderick Good MD - 01/06/2024 11:31 AM EDT Doesn't sound like there is anything unexpected going on given what she was in the hospital for. Continue current plan of care. ER for emergencies. * Telephone Encounter - Germania Freeman LPN - 01/06/2024 11:20 AM EDT Called pt, "feeling pretty crappy". A lot of gas and pressure in stomach and lower abdomen, up every 2 hours, and under to get gas to move. No BM, taking gasx and stool softener. Has not tried Miralax, but she says that does not seem to work for her. Not moving well, because she gets wobbly and weak. Not eating very much. Small portions only. See message, sent to covering provider for Quiles. Dr. Good documented in this encounter Plan of Treatment Upcoming Encounters Date Type Department Care Team (Latest Contact Info) Description 01/10/2024 1:00 PM EST Office Visit Family Practice [facility] [address] [place] [address] Landon Quiles DO [address] [place] [address] 01/11/2024 1:00 PM EST Immunization/Injection Hematology/Oncology Treatment, [place] [address] [facility] [place] [phone] Sarai, Chair 2 Hem Onc [place] [address] [place] [address] 01/16/2024 1:30 PM EST Anticoagulation Pharmacy, [facility] [address] [facility] [place] [address] Pharmacist2, [facility] [address] [place] [address] [address] 01/19/2024 7:00 AM EST Office Visit [facility] [address] [place] [address] Hakeem Samson CRNP [address] [place] [address] 02/22/2024 1:30 PM EST Office Visit Pharmacy, [facility] [address] [place] [address] [address] Pharmacist2, [facility] [address] [place] [address] 02/22/2024 2:00 PM EST Pharmacy Pharmacy, [facility] [address] [place] [address] Pharmacist2, [facility] [address] [place] [address] 02/22/2024 2:30 PM EST Anticoagulation Pharmacy, [facility] [address] [facility] [place] [address] Pharmacist2, [facility] [address] [facility] [place] [address] 05/11/2024 1:40 PM EST Office Visit Family Practice [facility] [address] [facility] [place] [address] Jackeline Diaz CRNP [address] [facility] [place] [address] 05/29/2024 11:30 AM EDT Office Visit Hematology/Oncology [facility] [address] [facility] [place] [phone] Abdirizak Shoemaker MD [address] [facility] [place] [address] 09/17/2024 11:40 AM EDT Office Visit Sleep Disorders Ctr [facility] [address] [facility] [place] [phone] Bernadette Zuniga DO [address] [facility] [place] [address] 11/20/2024 1:45 PM EDT Office Visit Urology, [facility] [address] [facility] [place] [address] Faustino Cárdenas MD [address] [place] [address] Scheduled Procedures Name Priority Associated Diagnoses Date/Ti [...] history exists COVID-19 Vaccine ( season) 2023 12/31/2021, 06/25/2021, 12/18/2020, Additional history exists HbA1c 04/01/2024 09/30/2023, 04/07, 12/21/2022, Additional history exists Albumin/Creatinine Ratio 06/28/2024 024, 07/12/2022, 04/07/2021, Additional history exists B-12 01/03/2025 01/04/2024, 05/06, 07/12/2022, Additional history exists GFR 01/03/2025 01/04/2024, 10/06, 07/01/2023, Additional history exists Pneumococcal Vaccine: 65+ Years [...] this encounter Medical Devices Implanted Type Area [employer] Senior Officer Device Identifier Shelf Expiration Date Model / Serial / Lot Graft Flex Hd 6 X 16cm [id number] - [id number] Implanted:Qty : 1 on 09/22/2010 [place] [facility] [place] Left: Breast MUSCULOSKELETAL TRANSPLANT FND 04/28/2013 [id number] / [id number] / Graft Flex Hd 6 X 16cm [id number] - [id number] Implanted:Qty : 1 on 09/22/2010 [place] [facility] [place] - Human Right: Chest MUSCULOSKELETAL TRANSPLANT FND 04/28/2013 [id number] / [id number] / Mediport Pwr Isp 8fr [id number] - [id number] Implanted:Qty : 1 on 09/22/2010 [place] [facility] [place]: Chest CR BARD : ACCESS SYSTEMS 07/13/2012 [id number] / / [id number] Breast Implant 354-2515 Saline - [id number] Implanted:Qty : 1 on 09/22/2010 at [place] [facility] [place]: Breast MENTOR EVA 12/13/2013 354-2515 / [id number] Breast Implant 354-2515 Saline - [id number] Implanted:Qty : 1 on 09/22/2010 at [place] [facility] [place]: Breast MENTOR EVA 07/13/2014 354-2515 / [id number] Lens Intraoc 16.5 - [id number] - [id number] Implanted:Qty : 1 on 02/20/2016 by Lincoln Garces MD at OR [facility] Left: Eye BAUSCH & LOMB 08/04/2020 [id number] / [id number] Lens Intraoc 15.5 - [id number] - [id number] Implanted:Qty : 1 on 03/09/2016 by Lincoln Garces MD at OR [facility] Right: Eye BAUSCH & LOMB 12/04/2017 [id number] / [id number] / documented as of this encounter Advance [...] and were consensually agreed upon. Care Teams Pipeline Operator Relationship Specialty Start Date End Date Landon Quiles DO [address] [place] [address] PCP - General Family Medicine 03/19/19 documented as of this encounter
--- OUTSIDE RECORDS SUMMARY | 2024-01-07 10:10 | External Medical Summary | Summary of Care ---
Author Name Unknown Organization [facility] Address [address] [place] [address] Phone [phone] Care Team Providers Care Telecom Sales Consultant Name Role Phone Landon Quiles DO Primary Care Provider Reason for Visit * Reason Onset Date Comments Nurse Documentation 01/06/2024 Encounter Details Date Type Department Care Team (Late st Contact Info) Description 01/06/2024 10:00 AM EDT Scheduled Telephone Ancillary [facility] [address] [facility] [place] [address] Prac, Nurse Follow Up Phone Call Schedule [facility] [address] [facility] [place] [address] Arrived Allergies Active Allergy Reactions Criticality Noted [...] Gel Apply a thin ribbon to toothbrush. [place] twice daily in place of normal toothpaste 100 mL 4 07/28/2022 Active rOPINIRole HCl 0.5 MG Oral Tablet (Requip)Indications :Restless leg syndrome TAKE 1 TABLET BY MOUTH AT BEDTIME NEEDED RESTLESS LEGS 90 Tablet 3 12/06/2022 Active Nystatin-Triamcinol one 209986-2.1 UNIT/GM-% External Cream (Mycolog)Indication s:Tinea cruris APPLY [...] not taking.Reported on 11/16/2023 GNP UltiCare Pen [place] 32G X 4 MM (Insulin Pen Needle) [...] Information Patient not taking.Reported on 08/22/2023 BD Gelatin Plant Supervisor Tray 27G X 1/2" 1 ML Kit [...] Release (Isoptin SR)Indications:PAT (paroxysmal atrial tachycardia) ([facility]) TAKE 1 TABLET BY MOUTH [...] A1c goal of less than 8.0% ([facility]) Use as directed. 6 Each [...] mRNA, LNP-s, No Pre serve, 2-Dose Series (Shop pirate) 12/18/2020,06/20/2020,05/30/2020 COVID-19, LNP-s, No Preserve , Marshal-sucrose, Ages 12+ (Pfizer) 06/25/2021 Covid-19, Mrna, Lnp-s, Pf, B ivalent, 30 Mcg, IM, 12 yrs and above (Shop pirate) 12/31/2021 H1N1 2009 Influenza, IM 02/24/2009 Hepatitis [...] encounter Miscellaneous Notes * Telephone Encounter - Germania Freeman LPN - 01/06/2024 11:48 AM EDT Pt aware. * Telephone Encounter - Roderick Good MD [...] See message, sent to covering provider for Kb. Dr. Good documented in this encounter Plan of Treatment Upcoming Encounters Date Type Department Care Team (Latest Contact Info) Description 01/10/2024 1:00 PM EST Office Visit [facility] Practice [facility] [address] [place] [address] Landon Quiles, [address] [place] [address] 01/11/2024 1:00 PM EST Immunization/Injection Hematology/Oncology Treatment, [place] [address] [facility] [address] [place] [phone] Sarai, Chair 2 Hem Onc [address] [place] [address] 01/16/2024 1:30 PM EST Anticoagulation Pharmacy, [facility] [address] [facility] [place] [address] Pharmacist2, [facility] [address] [place] [address] 01/19/2024 7:00 AM EST Office Visit [facility] [address] [place] [address] [address] Hakeem Samson CRNP [address] [place] [address] 02/22/2024 1:30 PM EST Office Visit Pharmacy, [facility] [address] [place] [address] Pharmacist2, [facility] [address] [place] [address] 02/22/2024 2:00 PM EST Pharmacy Pharmacy, [facility] [address] [facility] [place] [address] Pharmacist2, [facility] [address] [facility] [place] [address] 02/22/2024 2:30 PM EST Anticoagulation Pharmacy, [facility] [address] [place] [place] [address] Pharmacist2, [facility] [address] [facility] [place] [address] 05/11/2024 1:40 PM EST Office Visit Family Practice [facility] [address] [facility] [place] [address] Jackeline Diaz CRNP [address] [facility] [place] [address] 05/29/2024 11:30 AM EDT Office Visit Hematology/Oncology [facility] [address] [facility] [place] [phone] Abdirizak Shoemaker MD [address] [facility] [place] [address] 09/17/2024 11:40 AM EDT Office Visit Sleep Disorders Ctr [facility] [address] [facility] [place] [phone] Bernadette Zuniga DO 132 [facility] [place] [address] 11/20/2024 1:45 PM EDT Office Visit Urology, [facility] [address] [facility] [place] [address] Faustino Cárdenas MD [address] [place] [address] Scheduled Procedures Name Priority Associated Diagnoses Date/Ti [...] this encounter Medical Devices Implanted Type Area Employment Training Specialist Device Identifier Shelf Expiration Date Model / Serial / Lot Graft Flex Hd 6 X 16cm [id number] - [id number] Implanted:Qty : 1 on 09/22/2010 [place] [facility] [place] - Human Left: Breast MUSCULOSKELETAL TRANSPLANT FND 04/28/2013 [id number] / [id number] / Graft Flex Hd 6 X 16cm [id number] - [id number] Implanted:Qty : 1 on 09/22/2010 [place] [facility] [place] - Human Right: Chest MUSCULOSKELETAL TRANSPLANT FND 04/28/2013 [id number] / [id number] / Mediport Pwr Isp 8fr [id number] - [id number] Implanted:Qty : 1 on 09/22/2010 [place] [facility] [place]: Chest CR BARD : ACCESS SYSTEMS 07/13/2012 [id number] / / [id number] Breast Implant 354-6255 Saline - [id number] Implanted:Qty : 1 on 09/22/2010 [place] [facility] [place] Right: Breast MENTOR EVA 12/13/2013 354-2515 / [id number] Breast Implant 354-2515 Saline - [id number] Implanted:Qty : 1 on 09/22/2010 at [facility] Left: Breast MENTOR EVA 07/13/2014 354-2515 / [id number] Lens Intraoc 16.5 - [id number] - [id number] Implanted:Qty : 1 on 02/20/2016 by Lincoln Garces MD at OR [facility] Left: Eye BAUSCH & LOMB 08/04/2020 [id number] / [id number] Lens Intraoc 15.5 - [id number] - [id number] Implanted:Qty : 1 on 03/09/2016 by Lincoln Garces MD at OR [facility] Right: Eye BAUSCH & LOMB 12/04/2017 [id number] / [id number] / documented as of this encounter Advance [...] and were consensually agreed upon. Care Teams Telecom Sales Consultant Relationship Specialty Start Date End Date Landon Quiles DO [address] [place] [address] PCP - General Family Medicine 03/19/19 documented as of this encounter
--- OUTSIDE RECORDS SUMMARY | 2024-01-07 10:11 | External Medical Summary | Summary of Care ---
Author Name Unknown Organization [facility] Address [address] [place] [address] Phone [phone] Care Team Providers Care Society Editor Name Role Phone Lalo Quilesr Anayeli Primary Care Provider Reason for Visit * Reason Comments Medication Refill Encounter Details Date Type Department Care Team (Late st Contact Info) Description 01/04/2024 Refill Family Practice [facility] [address] [place] [address] Roderick Good MD [address] [place] [address] Dyslipidemia, goal LDL below 100 Allergies Active Allergy Reactions Criticality Noted Date [...] as of this encounter (statuses as of 01/05/2024) Medications Medication Sig Dispensed Refills Start Date [...] night at bedtime. Auto 10-20 cm Active Spacer/Aero-Holdin g Chambers Device Use with advair and albuterol 1 Each 12/28/2021 Active Sodium Fluoride 1.1 % Dental Gel Apply a thin ribbon to toothbrush. Hext twice daily in place of normal toothpaste 100 mL 4 07/28/2022 Active rOPINIRole HCl 0.5 MG Oral Tablet (Requip)Indication s:Restless leg syndrome TAKE 1 TABLET BY MOUTH AT BEDTIME NEEDED RESTLESS LEGS 90 Tablet 3 12/06/2022 Active Nystatin-Triamcino lone 960110-7.1 UNIT/GM-% External Cream (Mycolog)Indicatio ns:Tinea cruris APPLY [...] not taking.Reported on 11/16/2023 GNP UltiCare Pen [place] 32G X 4 MM (Insulin Pen Needle) use to inject basaglar once daily 100 Each 3 12/27/2022 Active Ondansetron HCl 4 MG Oral TabletIndications: Nausea Take 1 Tablet by mouth every 6 hours as needed for Nausea. 60 Tablet 3 02/02/2023 Active Empagliflozin 25 MG Oral Tablet (Jardiance)Indicat [...] A WEEK. 4 mL 5 06/08/2023 Active Famotidine 40 MG Oral Tablet (Pepcid) Take 1 Tablet by mouth at bedtime. 90 Tablet 1 06/27/2023 Active Levalbuterol Tartrate 45 MCG/ACT Inhalation Aerosol [...] before bedtime. 180 Tablet 3 07/18/2023 Active medroxyPROGESTERon e Acetate 10 MG Oral [...] Information Patient not taking.Reported on 08/22/2023 BD Hand Hose Cutter Tray 27G X 1/2" 1 ML [...] Extended Release (Isoptin SR)Indications:PAT (paroxysmal atrial tachycardia) ([facility]) TAKE 1 TABLET BY MOUTH 3 TIMES A DAY. 270 Tablet 3 08/31/2023 5 Active Fluticasone-Salmet tayla 230-21 MCG/ACT Inhalation Aerosol [...] 3 10/29/2023 5 Active FreeStyle Dewey 3 SensorIndications: Type 2 diabetes mellitus with hemoglobin A1c goal of less than 8.0% ([facility]) Use as directed. 6 [...] Active Saccharomyces boulardii 250 MG Oral Capsule (Florastor)Indicat ions:Acute recurrent maxillary sinusitis Take 1 Capsule by mouth in the morning and 1 Capsule before bedtime. 30 Capsule 01/04/2024 Active Cephalexin 500 MG Oral CapsuleIndications :Acute recurrent maxillary sinusitis Take 1 Capsule by mouth in the morning and 1 Capsule before bedtime. Do all this for 10 days. 20 Capsule 01/04/2024 4 Active oxyCODONE HCl 5 MG Oral Tablet (Oxy IR)Indications:Inf lammatory polyarthritis (HCC) Take 1 Tablet by mouth every 4 hours as needed for Pain, Moderate. 60 Tablet 01/04/2024 Active Atorvastatin Calcium 20 MG Oral Tablet (Lipitor)Indicatio ns:Dyslipidemia, goal LDL below 100 TAKE 1 TABLET BY MOUTH IN THE MORNING 90 Tablet 3 01/05/2024 Active Atorvastatin Calcium 20 MG Oral Tablet (Lipitor)Indicatio ns:Dyslipidemia, goal LDL below 100 TAKE 1 TABLET BY MOUTH IN THE MORNING 90 Tablet 9 12/23/2022 4 Discontinu ed(Refill) Ozempic (2 MG/DOSE) 8 MG/3ML Subcutaneous Solution Pen-injector (Semaglutide (2 MG/DOSE))Indicatio ns:Type 2 diabetes mellitus with hemoglobin A1c goal of less than 8.0% (HCC) Inject 2 mg under the skin once a week. 9 mL 3 01/06/2023 4 Discontinu ed(Refill) Metoprolol Tartrate 25 MG Oral Tablet (Lopressor)Indicat ions:HTN, goal below 130/80 TAKE 1/2 TABLET BY MOUTH IN THE MORNING AND TAKE 1/2 TABLET BEFORE BEDTIME 90 Tablet 1 07/18/2023 4 Discontinu ed(Refill) documented as of this encounter (statuses as of 01/05/2024) Active Problems Problem Noted Date Diagnosed Date [...] as of this encounter (statuses as of 01/05/2024) Resolved Problems Problem Noted Date Diagnosed Date [...] as of this encounter (statuses as of 01/05/2024) Immunizations Name Administration Dates Next Due COVID-19 mRNA, LNP-s, No Pre serve, 2-Dose Series (Apsalar) 12/18/2020,06/20/2020,05/30/2020 COVID-19, LNP-s, No Preserve , Marshal-sucrose, Ages 12+ (Pfizer) 06/25/2021 Covid-19, Mrna, Lnp-s, Pf, B ivalent, 30 Mcg, IM, 12 yrs and above (Apsalar) 12/31/2021 H1N1 2009 Influenza, IM 02/24/2009 Hepatitis [...] encounter Miscellaneous Notes * Telephone Encounter - Uma Lanza [facility] - 01/05/2024 12:09 PM EDTSigned Prescriptions: Disp Refills Atorvastatin Calcium 20 MG Oral Tablet (Li*90 Tab*3 Sig: TAKE 1 TABLET BY MOUTH IN THE MORNINGAuthorizing Provider: SYLVESTER QUILES User: UMA LANZA documented in this encounter Plan of Treatment Upcoming Encounters Date Type Department Care Team (Aileen brown Contact Info) Description 01/06/2024 10:00 AM EDT Scheduled Telephone Ancillary [facility] [address] [place] [address] Prac, Nurse Follow Up Phone Call Schedule Gw [facility] [address] [place] [address] 01/10/2024 1:00 PM EST Office Visit [facility] [address] [place] [address] Sylvester Quiles, [address] [place] [address] 01/11/2024 1:00 PM EST Immunization/Injection Hematology/Oncology Treatment, [place] [address] [facility] [address] [facility] [address] [place] [phone] Sarai, Chair 2 Hem Onc [address] [place] [address] 01/16/2024 1:30 PM EST Anticoagulation Pharmacy, [facility] [address] [facility] [place] [address] Pharmacist2, [facility] [address] [facility] [place] [address] 01/19/2024 7:00 AM EST Office Visit [facility] [address] [address] Hakeem Samson CRNP [address] [place] [address] 02/22/2024 1:30 PM EST Office Visit Pharmacy, [facility] [address] [facility] [place] [address] Pharmacist2, [facility] [address] [place] [address] [address] 02/22/2024 2:00 PM EST Pharmacy Pharmacy, [facility] [address] [place] [address] Pharmacist2, [facility] [address] [place] [place] [address] 02/22/2024 2:30 PM EST Anticoagulation Pharmacy, [facility] [address] [place] [address] Pharmacist2, [facility] [address] [place] [address] 05/11/2024 1:40 PM EST Office Visit Family Practice [facility] [address] [facility] [place] [address] Jackeline Diaz CRNP [address] [facility] [address] [place] [address] 05/29/2024 11:15 AM EDT Office Visit Hematology/Oncology [facility] [address] [place] [address] Abdirizak Shoemaker MD [address] [facility] [place] [address] 09/17/2024 11:40 AM EDT Office Visit Sleep Disorders Ctr [facility] [address] [facility] [place] [phone] Bernadette Zuniga, [address] [facility] [place] [address] 11/20/2024 1:45 PM EDT Office Visit Urology, [facility] [address] [facility] [place] [address] Faustino Cárdenas MD [address] [place] [address] Scheduled Procedures Name Priority Associated Diagnoses Date/Ti [...] this encounter Medical Devices Implanted Type Area Telecommunication Operator Device Identifier Shelf Expiration Date Model / Serial / Lot Graft Flex Hd 6 X 16cm [id number] - [id number] Implanted:Qty : 1 on 09/22/2010 at OR [facility] [place] Tissue - Human Left: Breast MUSCULOSKELETAL TRANSPLANT FND 04/28/2013 [id number] / [id number] / Graft Flex Hd 6 X 16cm [id number] - [id number] Implanted:Qty : 1 on 09/22/2010 at OR [facility] [place] Tissue - Human Right: Chest MUSCULOSKELETAL TRANSPLANT FND 04/28/2013 [id number] / [id number] / Mediport Pwr Isp 8fr [id number] - [id number] Implanted:Qty : 1 on 09/22/2010 at OR [facility] [place] Right: Chest CR BARD : ACCESS SYSTEMS 07/13/2012 [id number] / / [id number] Breast Implant 354-1465 Saline - [id number] Implanted:Qty : 1 on 09/22/2010 at OR [facility] [place] Right: Breast MENTOR EVA 12/13/2013 [id number] / [id number] Breast Implant 354-2515 Saline - [id number] Implanted:Qty : 1 on 09/22/2010 at [facility] Left: Breast MENTOR EVA 07/13/2014 [id number] / [id number] Lens Intraoc 16.5 - [id number] - [id number] Implanted:Qty : 1 on 02/20/2016 by Lincoln Garces MD at OR [facility] Left: Eye BAUSCH & LOMB 08/04/2020 [id number] / [id number] / [id number] Lens Intraoc 15.5 - [id number] - [id number] Implanted:Qty : 1 on 03/09/2016 by Lincoln Garces MD at [facility] Right: Eye BAUSCH & LOMB 12/04/2017 [id number] / [id number] / documented as of this encounter Visit Diagnoses Diagnosis Dyslipidemia, goal LDL below 100 Other and unspecified hyperlipidemia documented in this encounter Advance Directives * [...] and were consensually agreed upon. Care Teams Society Editor Relationship Specialty Start Date End Date Sylvester Quiles DO [address] [place] [address] PCP - General Family Medicine 03/19/19 documented as of this encounter
--- OUTSIDE RECORDS SUMMARY | 2024-01-07 10:11 | External Medical Summary ---
Author Name Unknown Address Unknown Organization [id number]:[facility] - [address] [place] [id number] Laboratory Report Ordering Provider Test Date Status ERIK PHAN 01/04/2024 10:27:08 Final Observation Date Value Abnormality Reference (Units) Status Bacteria identified in Specimen by Culture 01/04/2024 10:27:08 No significant growth Final Test: Culture, Urine, Quanti tative
Specimen Source: Urine, Clean Catch
Specimen Type: Urine
Specimen Date: 01/04/2024 1027
Result Date: 01/06/2024 0727
Result Status: Final result
Resulting Lab: [facility]
[address]
[place] [address]

CULTURE

No significant growth

null Performing Location [facility] - [address] [facility] [address]
--- OUTSIDE RECORDS SUMMARY | 2024-01-07 10:11 | External Medical Summary ---
Author Name Unknown Address Unknown Organization [id number]:[facility] [address] - [address] [place] [address] Laboratory Report Ordering Provider Test Date Status ERIK PHAN 01/04/2024 10:27:08 Final Observation Date Value Abnormality Reference (Units ) Status Color of Urine by Auto 01/04/2024 10:27:08 Radha Abnormal Light Yellow, Yellow, Dark Yellow Final Clarity, Urine 01/04/2024 10:27:08 Slightly Cloudy Abnormal Clear Final Glucose [Mass/volume] in Urine by Automated test strip 01/04/2024 10:27:08 Negative Negative (mg/dL) Final Bilirubin.total [Presence] in Urine by Automated test strip 01/04/2024 10:27:08 Small Abnormal Negative Final Ketones [Mass/volume] in Urine by Automated test strip 01/04/2024 10:27:08 Trace Abnormal Negative (mg/dL) Final Specific gravity, Urine 01/04/2024 10:27:08 >=1.030 1.003-1.030 Final Hemoglobin [Presence] in Urine by Automated test strip 01/04/2024 10:27:08 Trace Abnormal Negative Final pH, Urine 01/04/2024 10:27:08 6.0 5.0-7.5 (Units) Final Protein [Mass/volume] in Urine by Automated test strip 01/04/2024 10:27:08 100 Abnormal Negative (mg/dL) Final Urobilinogen [Mass/volume] in Urine by Automated test strip 01/04/2024 10:27:08 0.2 0.2, 1.0 (mg/dL) Final Nitrite [Presence] in Urine by Automated test strip 01/04/2024 10:27:08 Positive Abnormal Negative Final Leukocyte esterase [Presence] in Urine by Automated test strip 01/04/2024 10:27:08 Negative Negative Final RBC, Urine 01/04/2024 10:27:08 3-5 Abnormal 0-2 (/HPF) Final WBC, Urine 01/04/2024 10:27:08 10-19 Abnormal 0-2 (/HPF) Final Bacteria [#/area] in Urine sediment by Microscopy high power field 01/04/2024 10:27:08 51-100 Abnormal 0-25 (/HPF) Final Epithelial cells.squamous [#/area] in Urine sediment by Microscopy high power field 01/04/2024 10:27:08 Many Abnormal None (/HPF) Final Hyaline casts, Urine 01/04/2024 10:27:08 1-4 Abnormal None (/LPF) Final Transitional cells [#/area] in Urine sediment by Microscopy high power field 01/04/2024 10:27:08 1-4 Abnormal None (/HPF) Final Performing Location LABORATORY [place] [address] - [address] [facility] [address]
--- OUTSIDE RECORDS SUMMARY | 2024-01-07 10:11 | External Medical Summary | Summary of Care ---
Author Name Unknown Organization [facility] Address [address] [place] [address] Phone [phone] Care Team Providers Care Tune Up Mechanic Name Role Phone Sylvester Quiles DO Primary Care Provider Reason for Referral * Medication Prior Authorization - Pending Review Specialty Diagnoses / Procedures Referred By Contcapri harrell Referred To Contact Diagnoses Type 2 diabetes mellitus with hemoglobin A1c goal of less than 8.0% ([facility]) Uma Lanza, [facility] [address] [facility] [place] [address] Referral ID Status Reason Start Date Expiration Date V isits Requested Visits Authorized [id number] Pending Review 999 999 Reason for Visit * Reason Comments Medication Refill Encounter Details Date Type Department Care Team (Late st Contact Info) Description 01/04/2024 Refill Family Practice [facility] [address] [place] [address] Sylvester Quiles DO [address] [place] [address] Type 2 diabetes mellitus with hemoglobin A1c goal of less than 8.0% ([facility]); HTN, goal below 130/80 Allergies Active Allergy Reactions Criticality Noted Date [...] Gel Apply a thin ribbon to toothbrush. [place] twice daily in place of normal toothpaste 100 mL 4 07/28/2022 Active rOPINIRole HCl 0.5 MG Oral Tablet (Requip)Indication s:Restless leg syndrome TAKE 1 TABLET BY MOUTH AT BEDTIME NEEDED RESTLESS LEGS 90 Tablet 3 12/06/2022 Active Nystatin-Triamcino lone 531156-9.1 UNIT/GM-% External Cream (Mycolog)Indicatio ns:Tinea cruris APPLY [...] not taking.Reported on 11/16/2023 GNP UltiCare Pen [place] 32G X 4 MM (Insulin Pen Needle) use to inject basaglar once daily 100 Each 3 12/27/2022 Active Ondansetron HCl 4 MG Oral TabletIndications: Nausea Take 1 Tablet by mouth every 6 hours as needed for Nausea. 60 Tablet 3 02/02/2023 Active Empagliflozin 25 MG Oral Tablet (Jardiance)Indicat ions:Type 2 diabetes mellitus with hemoglobin A1c goal of less than 7.0% ([facility]) Take 1 Tablet by mouth in the [...] ONCE A WEEK. 4 mL 5 06/08/2023 5 Active Famotidine 40 MG Oral Tablet (Pepcid) [...] Information Patient not taking.Reported on 08/22/2023 BD Licensed Journeyman Electrician Tray 27G X 1/2" 1 ML Kit [...] Extended Release (Isoptin SR)Indications:PAT (paroxysmal atrial tachycardia) ([facility]) TAKE 1 TABLET BY [...] hemoglobin A1c goal of less than 8.0% ([facility]) Use as directed. 6 Each 3 12/07/2023 Active Insulin Glargine Solostar 100 UNIT/ML Subcutaneous Solution Pen-injector (Basaglar KwikPen)Indication s:Type 2 diabetes mellitus with hemoglobin A1c goal of less than 7.0% ([facility]) Inject 10 Units under the skin every [...] for Pain, Moderate. 60 Tablet 01/04/2024 Active Ozempic (2 MG/DOSE) 8 MG/3ML Subcutaneous Solution Pen-injector (Semaglutide (2 MG/DOSE))Indicatio ns:Type 2 diabetes mellitus with hemoglobin A1c goal of less than 8.0% ([facility]) Inject 2 mg under the skin once a week. 9 mL 3 01/05/2024 Active Metoprolol Tartrate 25 MG Oral Tablet (Lopressor)Indicat ions:HTN, goal below 130/80 TAKE 1/2 TABLET BY MOUTH IN THE MORNING AND TAKE 1/2 TABLET BEFORE BEDTIME 90 Tablet 3 01/05/2024 Active Ozempic (2 [...] mRNA, LNP-s, No Pre serve, 2-Dose Series (Sevenpop) 12/18/2020,06/20/2020,05/30/2020 COVID-19, LNP-s, No Preserve , Marshal-sucrose, Ages 12+ (Pfizer) 06/25/2021 Covid-19, Mrna, Lnp-s, Pf, B ivalent, 30 Mcg, IM, 12 yrs and above (Sevenpop) 12/31/2021 H1N1 2009 Influenza, IM 02/24/2009 Hepatitis [...] Notes * Telephone Encounter - Uma Lanza [facility] - 01/05/2024 12:15 PM EDTSigned Prescriptions: Disp Refills Ozempic (2 MG/DOSE) 8 MG/3ML Subcutaneous *9 mL 3 Sig: Inject 2 mg under the skin once a week.Authorizing Provider: SYLVESTER QUILES User: UMA LANZA Metoprolol Tartrate 25 MG Oral Tablet (Lop*90 Tab*3 Sig: TAKE 1/2 TABLET BY MOUTH IN THE MORNING AND TAKE 1/2 TABLET BEFORE BEDTIMEAuthorizing Provider: SYLVESTER QUILES User: UMA LANZA documented in this encounter Plan of Treatment Upcoming Encounters Date Type Department Care Team (Late st Contact Info) Description 01/06/2024 10:00 AM EDT Scheduled Telephone Ancillary [facility] [address] [address] [address] Prac, Nurse Follow Up Phone Call Schedule [facility] [address] [address] [address] 01/10/2024 1:00 PM EST Office Visit Family Practice [facility] [address] [place] [address] [address] Sylvester Quiles, [address] [place] [address] [address] 01/11/2024 1:00 PM EST Immunization/Injection Hematology/Oncology Treatment, [place] [address] [place] [phone] Sarai, Chair 2 Hem Onc [address] [place] [address] 01/16/2024 1:30 PM EST Anticoagulation Pharmacy, [facility] [address] [place], [place] [address] Pharmacist2, [facility] [address] [facility] [place], [place] [address] 01/19/2024 7:00 AM EST [facility] [place] [address] H[facility]em [facility] [address] 02/22/2024 1:30 PM EST Office Visit Pharmacy, [facility] [address] [place], [place] [address] Pharmacist2, [facility] [address] [facility] [place], [place] [address] 02/22/2024 2:00 PM EST Pharmacy Pharmacy, [facility] [address] [facility] [place], [place] [address] Pharmacist2, [facility] [address] [place], [place] [address] 02/22/2024 2:30 PM EST Anticoagulation Pharmacy, [facility] [address] [facility] [place] [address] Pharmacist2, [facility] [address] [facility] [place] [address] 05/11/2024 1:40 PM EST [facility] [place] [address] Jackeline Diaz CRNP [facility] [address] 05/29/2024 11:15 AM EDT Office Visit Hematology/Oncology [facility] [address] [facility] [place] [address] Abdirizak Shoemaker MD [address] [facility] [place] [address] 09/17/2024 11:40 AM EDT Office Visit Sleep Disorders Ctr [facility] [address] [place] [phone] Bernadette Zuniga DO [address] [place] [address] 11/20/2024 1:45 PM EDT Office Visit Urology, [facility] [address] [place] [address] Faustino Cárdenas MD [address] [facility] [place] [address] Scheduled Procedures Name Priority Associated Diagnoses Date/Ti [...] 04/07, 12/21/2022, Additional history exists Albumin/Creatinine Ratio 06/28/202406/28/2 024, 07/12/2022, 04/07/2021, Additional history exists B-12 [...] this encounter Medical Devices Implanted Type Area Coat Fitter Device Identifier Shelf Expiration Date Model / Serial / Lot Graft Flex Hd 6 X 16cm [id number] - [id number] Implanted:Qty : 1 on 09/22/2010 at OR [facility] [place] Tissue - Human Left: Breast MUSCULOSKELETAL TRANSPLANT FND 04/28/2013 [id number] / [id number] / Graft Flex Hd 6 X 16cm [id number] - [id number] Implanted:Qty : 1 on 09/22/2010 at OR [facility] Tissue - Human Right: Chest MUSCULOSKELETAL TRANSPLANT FND 04/28/2013 [id number] / [id number] / Mediport Pwr Isp 8fr [id number] - [id number] Implanted:Qty : 1 on 09/22/2010 at OR [facility] Right: Chest CR BARD : ACCESS SYSTEMS 07/13/2012 [id number] / / [id number] Breast Implant 354-2515 Saline - [id number] Implanted:Qty : 1 on 09/22/2010 at OR [facility] Right: Breast MENTOR EVA 12/13/2013 [id number] / [id number] / [id number] Breast Implant 354-2515 Saline - [id number] Implanted:Qty : 1 on 09/22/2010 at OR [facility] Left: Breast MENTOR EVA 07/13/2014 [id number] / [id number] / [id number] Lens Intraoc 16.5 - [id number] - [id number] Implanted:Qty : 1 on 02/20/2016 by Lincoln Garces MD at OR [facility] Left: Eye BAUSCH & LOMB 08/04/2020 [id number] / [id number] / [id number] Lens Intraoc 15.5 - [id number] - [id number] Implanted:Qty : 1 on 03/09/2016 by Lincoln Garces MD at OR [facility] Right: Eye BAUSCH & LOMB 12/04/2017 [id number] / [id number] / documented as of this encounter Visit Diagnoses Diagnosis Type 2 diabetes mellitus with hemoglobin A1c goal of less than 8.0% ([facility]) HTN, goal below 130/80 Unspecified essential hypertension documented in this encounter Advance Directives * [...] and were consensually agreed upon. Care Teams Tune Up Mechanic Relationship Specialty Start Date End Date Sylvester Quiles DO [address] [place] [address] PCP - General Family Medicine 03/19/19 documented as of this encounter
--- OUTSIDE RECORDS SUMMARY | 2024-01-07 10:11 | External Medical Summary | Summary of Care ---
Author Name Unknown Organization [facility] Address [address] [place] [address] Phone [phone] Care Team Providers Care Spear Fisher Name Role Phone Lalo Quilesr Anayeli Primary Care Provider Encounter Details Date Type Department Care Team (Late st Contact Info) Description 01/04/2024 Telephone Pharmacy, [facility] [address] [place] [address] [facility] [address] [place], [place] [id number] Allergies Active Allergy Reactions Criticality Noted Date [...] as of this encounter (statuses as of 01/04/2024) Medications Medication Sig Dispensed Refills Start Date [...] Gel Apply a thin ribbon to toothbrush. [place] twice daily in place of normal toothpaste 100 mL 4 07/28/2022 Active rOPINIRole HCl 0.5 MG Oral Tablet (Requip)Indications :Restless leg syndrome TAKE 1 TABLET BY MOUTH AT BEDTIME NEEDED RESTLESS LEGS 90 Tablet 3 12/06/2022 Active Nystatin-Triamcinol one 755745-3.1 UNIT/GM-% External Cream (Mycolog)Indication s:Tinea cruris APPLY TOPICALLY TO AFFECTED AREA TWO TIMES A DAY FOR 14 DAYS 120 g 1 12/09/2022 Active Warfarin Sodium 5 MG Oral Tablet (Coumadin)Indicatio ns:History of pulmonary embolism,PAT (paroxysmal atrial tachycardia) ([facility]) Take by mouth 5 mg ( 1 tablet) every Tue, Shira; 7.5 mg (1 1/2 tablets) all other days or as directed 130 Tablet 3 12/13/2022 Active cycloSPORINE 0.05 % Ophthalmic Emulsion (Restasis) Instill 1 drop into both eyes every 12 hours 60 Each 6 12/21/2022 Active Additional Information Patient not taking.Reported on 11/16/2023 GNP UltiCare Pen [place] 32G X 4 MM (Insulin Pen Needle) use to inject basaglar once daily 100 Each 3 12/27/2022 Active Ozempic (2 MG/DOSE) 8 MG/3ML Subcutaneous Solution Pen-injector (Semaglutide (2 MG/DOSE))Indication s:Type 2 diabetes mellitus with hemoglobin A1c goal of less than 8.0% (HCC) Inject 2 mg under the skin once a week. 9 mL 3 01/06/2023 Active Ondansetron HCl 4 MG Oral TabletIndications:N [...] mouth daily. 90 Tablet 1 07/18/2023 Active Metoprolol Tartrate 25 MG Oral Tablet (Lopressor)Indicati ons:HTN, goal below 130/80 TAKE 1/2 TABLET BY MOUTH IN THE MORNING AND TAKE 1/2 TABLET BEFORE BEDTIME 90 Tablet 1 07/18/2023 Active Sodium Bicarbonate [...] Information Patient not taking.Reported on 08/22/2023 BD Leaded Glass Installer Tray 27G X 1/2" 1 ML Kit (Tuberculin-Allergy Syringes)Indication s:Inflammatory polyarthritis ([facility]) USE DIRECTED TO INJECT METHOTREXATE 0.6 ML [...] (Isoptin SR)Indications:PAT (paroxysmal atrial tachycardia) ([facility]) TAKE 1 TABLET BY MOUTH 3 [...] goal of less than 8.0% ([facility]) Use as directed. 6 Each 3 12/07/2023 Active Insulin Glargine Solostar 100 UNIT/ML Subcutaneous Solution Pen-injector (Basaglar KwikPen)Indications :Type 2 diabetes mellitus with hemoglobin A1c goal of less than 7.0% ([facility]) Inject 10 Units under the skin every [...] for Pain, Moderate. 60 Tablet 01/04/2024 Active documented as of this encounter (statuses as of 01/04/2024) Active Problems Problem Noted Date Diagnosed Date [...] as of this encounter (statuses as of 01/04/2024) Resolved Problems Problem Noted Date Diagnosed Date [...] as of this encounter (statuses as of 01/04/2024) Immunizations Name Administration Dates Next Due COVID-19 mRNA, LNP-s, No Pre serve, 2-Dose Series ([employer]) 12/18/2020,06/20/2020,05/30/2020 COVID-19, LNP-s, No Preserve , Marshal-sucrose, [...] Notes * Telephone Encounter - Fabricio Tovar RPh - 01/04/2024 10:56 AM EDT Patient Phone Numbers OFS rescheduled for 01/16/24. Fabricio Tovar, PharmD, BCACP, [facility] Clinical Pharmacist 01/04/2024, 10:57 AM * Telephone Encounter - Fabricio Tovar [facility] - 01/04/2024 10:56 AM EDT ----- Message from Landon Quiles DO sent at 01/04/2024 9:27 AM EDT ----- Regarding: holding coumadin Hi Fabricio, I wanted to let you know that we are holding coumadin for Isela until we Are certain that gastric/urinary bleeding have stopped If CBCs remain stable, we will likely start the coumadin up again This weekend or early next week Thank you! Landon Quiles documented in this encounter Plan of Treatment Upcoming Encounters Date Type Department Care Team (Late st Contact Info) Description 01/06/2024 10:00 AM EDT Scheduled Telephone Ancillary [address] [place] [address] Prac, Nurse Follow Up Phone Call Schedule [facility] [address] [place] [address] 01/10/2024 1:00 PM EST Office Visit [facility] [address] [place] [address] Landon Quiles, DO [address] [place] [address] 01/11/2024 1:00 PM EST Immunization/Injection Hematology/Oncology Treatment, [place] [address] [facility] [place] [phone] Sarai, Chair 2 Hem Onc [address] [place] [address] 01/16/2024 1:30 PM EST Anticoagulation Pharmacy, [facility] [address] [place] [address] Pharmacist2, [facility] [address] [place] [address] 01/19/2024 7:00 AM EST Office Visit [facility] [address] [place] [address] Hakeem Samson CRNP [address] [place] [address] 02/22/2024 1:30 PM EST Office Visit Pharmacy, [facility] [address] [place] [address] Pharmacist2, [facility] [address] [place] [address] 02/22/2024 2:00 PM EST Pharmacy Pharmacy, [facility] [address] [place] [address] Pharmacist2, [facility] [address] [place] [address] 02/22/2024 2:30 PM EST Anticoagulation Pharmacy, [facility] [address] [facility] [place] [address] Pharmacist2, [facility] [address] [facility] [place] [address] 05/11/2024 1:40 PM EST Office Visit Family Practice [facility] [address] [facility] [place] [address] Jackeline Diaz CRNP 132 [facility] [place] [address] 05/29/2024 11:15 AM EDT Office Visit Hematology/Oncology [facility] [address] [facility] [place] [phone] Abdirizak Shoemaker MD [address] [facility] [place] [address] 09/17/2024 11:40 AM EDT Office Visit [facility] Disorders Ctr [facility] [address] [facility] [place] [phone] Bernadette Zuniga DO [address] [place] [address] 11/20/2024 1:45 PM EDT Office Visit Urology, [facility] [address] [facility] [place] [address] Faustino Cárdenas MD [address] [place] [address] Scheduled Procedures Name Priority Associated Diagnoses Date/Ti [...] 04/07/2021, Additional history exists GFR 10/27/2024 10/28/2023, 0408/2023, 06/29/2023, Additional history exists Pneumococcal Vaccine: 65+ [...] this encounter Medical Devices Implanted Type Area Automation Tester Device Identifier Shelf Expiration Date Model / Serial / Lot Graft Flex Hd 6 X 16cm [id number] - [id number] [place]planted:Q[place] : 1 [place] [facility] [place] - Human Left: Breast MUSCULOSKELETAL TRANSPLANT FND 04/28/2013 [id number] / [id number] / Graft Flex Hd 6 X 16cm [id number] - [id number] Implanted:Qty : 1 on 09/22/2010 [place] [facility] [place] - Human Right: Chest MUSCULOSKELETAL TRANSPLANT FND 04/28/2013 [id number] / [id number] / Mediport Pwr Isp 8fr [id number] - [id number] Implanted:Qty : 1 on 09/22/2010 [place] [facility] [place] Right: Chest CR BARD : ACCESS SYSTEMS 07/13/2012 [id number] / / [id number] Breast Implant 354-9905 Saline - [id number] Implanted:Qty : 1 on 09/22/2010 [place] [facility] [place] Right: Breast MENTOR EVA 12/13/2013 354-2515 / [id number] Breast Implant 354-0955 Saline - [id number] Implanted:Qty : 1 on 09/22/2010 [place] [facility] [place] Left: Breast MENTOR EVA 07/13/2014 354-2515 / [id number] Lens Intraoc 16.5 - [id number] - [id number] Implanted:Qty : 1 on 02/20/2016 by Lincoln Garces MD at OR [facility] Left: Eye BAUSCH & LOMB 08/04/2020 [id number] / [id number] / [id number] Lens Intraoc 15.5 - [id number] - [id number] Implanted:Qty : 1 on 03/09/2016 by Lincoln Garces MD at [facility] Right: Eye BAUSCH & LOMB 12/04/2017 [id number] / [id number] / documented as of this encounter Visit [...] and were consensually agreed upon. Care Teams Spear Fisher Relationship Specialty Start Date End Date Landon Quiles DO [address] [place] [address] PCP - General Family Medicine 03/19/19 documented as of this encounter
--- OUTSIDE RECORDS SUMMARY | 2024-01-07 10:11 | External Medical Summary | Summary of Care ---
Author Name Unknown Organization [facility] Address [address] [place] [address] Phone [phone] Care Team Providers Care Lead Manufacturing Engineering Tech Name Role Phone Landon Quiles DO Primary Care Provider Reason for Visit * Reason Onset Date Comments Nurse Documentation 01/06/2024 Encounter Details Date Type Department Care Team (Late st Contact Info) Description 01/06/2024 10:00 AM EDT Scheduled Telephone Ancillary [facility] [address] [facility] [place] [address] Prac, Nurse Follow Up Phone Call Schedule [facility] [address] [facility] [place] [address] Arrived Allergies Active Allergy Reactions Criticality Noted [...] Gel Apply a thin ribbon to toothbrush. [place] twice daily in place of normal toothpaste 100 mL 4 07/28/2022 Active rOPINIRole HCl 0.5 MG Oral Tablet (Requip)Indications :Restless leg syndrome TAKE 1 TABLET BY MOUTH AT BEDTIME NEEDED RESTLESS LEGS 90 Tablet 3 12/06/2022 Active Nystatin-Triamcinol one 098541-7.1 UNIT/GM-% External Cream (Mycolog)Indication s:Tinea cruris APPLY [...] not taking.Reported on 11/16/2023 GNP UltiCare Pen [place] 32G X 4 MM (Insulin Pen Needle) [...] Information Patient not taking.Reported on 08/22/2023 BD Proof Coin Collector Tray 27G X 1/2" 1 ML Kit [...] Extended Release (Isoptin SR)Indications:PAT (paroxysmal atrial tachycardia) ([facility]) TAKE 1 TABLET BY MOUTH 3 TIMES [...] goal of less than 8.0% ([facility]) Use as directed. 6 Each 3 12/07/2023 [...] mRNA, LNP-s, No Pre serve, 2-Dose Series (Flypaper) 12/18/2020,06/20/2020,05/30/2020 COVID-19, LNP-s, No Preserve , Marshal-sucrose, Ages 12+ (Pfizer) 06/25/2021 Covid-19, Mrna, Lnp-s, Pf, B ivalent, 30 Mcg, IM, 12 yrs and above (Flypaper) 12/31/2021 H1N1 2009 Influenza, IM 02/24/2009 Hepatitis [...] 1:00 PM EST Office Visit Family Practice [facility] [address] [place] [address] Landon Quiles DO [address] [place] [address] 01/11/2024 1:00 PM EST Immunization/Injection Hematology/Oncology Treatment, [place] 200 [facility] [place] [phone] Sarai, Chair 2 Hem Onc [place] [address] [place] [address] 01/16/2024 1:30 PM EST Anticoagulation Pharmacy, [facility] 200 [facility] [place] [address] Pharmacist2, [facility] [address] [place] [address] [address] 01/19/2024 7:00 AM EST Office Visit [facility] [address] [place] [address] Hakeem Samson CRNP [address] [place] [address] 02/22/2024 1:30 PM EST Office Visit Pharmacy, [facility] [address] [place] [address] [address] Pharmacist2, [facility] [address] [place] [address] 02/22/2024 2:00 PM EST Pharmacy Pharmacy, [facility] [address] [place] [address] Pharmacist2, [facility] [address] [place] [address] [address] 02/22/2024 2:30 PM EST Anticoagulation Pharmacy, [facility] [address] [facility] [place] [address] Pharmacist2, [facility] [address] [facility] [place] [address] 05/11/2024 1:40 PM EST Office Visit Family Practice [facility] [address] [facility] [place] [address] Jackeline Diaz CRNP 132 [facility] [place] [address] 05/29/2024 11:30 AM EDT Office Visit Hematology/Oncology [facility] [address] [facility] [place] [phone] Abdirizak Shoemaker MD [address] [facility] [place] [address] 09/17/2024 11:40 AM EDT Office Visit Sleep Disorders Ctr [facility] [address] [facility] [place] [phone] Bernadette Zuniga DO 132 [facility] [place] [address] 11/20/2024 1:45 PM EDT Office Visit Urology, [facility] [address] [facility] [place] [address] Faustino Cárdenas MD [address] [place] [address] Scheduled Procedures Name Priority Associated Diagnoses Date/Ti [...] this encounter Medical Devices Implanted Type Area Individual Pension Consultant Device Identifier Shelf Expiration Date Model / Serial / Lot Graft Flex Hd 6 X 16cm [id number] - [id number] Implanted:Qty : 1 on 09/22/2010 at [place] [facility] [place] Tissue - Human Left: Breast MUSCULOSKELETAL TRANSPLANT FND 04/28/2013 [id number] / [id number] / Graft Flex Hd 6 X 16cm [id number] - [id number] Implanted:Qty : 1 on 09/22/2010 at [place] [facility] [place] Tissue - Human Right: Chest MUSCULOSKELETAL TRANSPLANT FND 04/28/2013 [id number] / [id number] / Mediport Pwr Isp 8fr [id number] - [id number] Implanted:Qty : 1 on 09/22/2010 at [place] [facility] [place] Right: Chest CR BARD : ACCESS SYSTEMS 07/13/2012 [id number] / / [id number] Breast Implant 354-2515 Saline - [id number] Implanted:Qty : 1 on 09/22/2010 at [place] [facility] [place] Right: Breast MENTOR EVA 12/13/2013 354-2515 / [id number] Breast Implant 354-2515 Saline - [id number] Implanted:Qty : 1 on 09/22/2010 at [place] [facility] [place] Left: Breast MENTOR EVA 07/13/2014 354-2515 / [id number] Lens Intraoc 16.5 - [id number] - [id number] Implanted:Qty : 1 on 02/20/2016 by Lincoln Garces MD at OR [facility] Left: Eye BAUSCH & LOMB 08/04/2020 [id number] / [id number] Lens Intraoc 15.5 - [id number] - [id number] Implanted:Qty : 1 on 03/09/2016 by Lincoln Garces MD at OR [facility] Right: Eye BAUSCH & LOMB 12/04/2017 [id number] / [id number] / documented as of this encounter Advance [...] and were consensually agreed upon. Care Teams Lead Manufacturing Engineering Tech Relationship Specialty Start Date End Date Landon Quiles DO [address] [place] [address] PCP - General Family Medicine 03/19/19 documented as of this encounter
--- OUTSIDE RECORDS SUMMARY | 2024-01-07 10:11 | External Medical Summary | Summary of Care ---
Author Name Unknown Organization [facility] Address [address] [place] [address] Phone [phone] Care Team Providers Care Chip Mixing Machine Operator Name Role Phone Landon Quiles DO Primary Care Provider Reason for Visit * Reason Comments Hospital Follow-Up [facility] d/c 12/30-- GI bleed, polyp (benign) removed it. Notice hematuria last night, no pain. Encounter Details Date Type Department Care Team (Latest Contact Info) Description 01/04/2024 9:00 AM EDT Office Visit Family Practice [facility] [address] [place] [address] Landon Quiles DO [address] [address] Hospital discharge follow-up*; Type 2 diabetes mellitus with hemoglobin A1c goal of less than 8.0% ([facility]); Body mass index (BMI) of 45.0 to 49.9 in adult (HCC); Inflammatory polyarthritis (HCC); Malignant neoplasm of overlapping sites of both breasts in female, estrogen receptor positive (HCC); Gross hematuria; Hematemesis without nausea; Type 2 diabetes mellitus with hemoglobin A1c goal of less than 7.0% ([facility]); Acute recurrent maxillary sinusitis; Fibromyalgia Allergies Active Allergy Reactions Criticality Noted [...] Gel Apply a thin ribbon to toothbrush. [place] twice daily in place of normal toothpaste 100 mL 4 07/28/2022 Active rOPINIRole HCl 0.5 MG Oral Tablet (Requip)Indication s:Restless leg syndrome TAKE 1 TABLET BY MOUTH AT BEDTIME NEEDED RESTLESS LEGS 90 Tablet 3 12/06/2022 Active Nystatin-Triamcino lone 903665-8.1 UNIT/GM-% External Cream (Mycolog)Indicatio ns:Tinea cruris APPLY [...] not taking.Reported on 11/16/2023 GNP UltiCare Pen [place] 32G X 4 MM (Insulin Pen Needle) use to inject basaglar once daily 100 Each 3 12/27/2022 Active Ozempic (2 MG/DOSE) 8 MG/3ML Subcutaneous Solution Pen-injector (Semaglutide (2 MG/DOSE))Indicatio ns:Type 2 diabetes mellitus with hemoglobin A1c goal of less than 8.0% (HCC) Inject 2 mg under the skin once a week. 9 mL 3 01/06/2023 Active Ondansetron HCl 4 MG Oral TabletIndications: [...] Information Patient not taking.Reported on 08/22/2023 BD Warehouse Material Handler Tray 27G X 1/2" 1 ML Kit [...] goal of less than 8.0% ([facility]) Use as directed. 6 Each 3 12/07/2023 Active Insulin Glargine Solostar 100 UNIT/ML Subcutaneous Solution Pen-injector (Basaglar KwikPen)Indication s:Type 2 diabetes mellitus with hemoglobin A1c goal of less than 7.0% ([facility]) Inject 10 Units under the skin [...] for Pain, Moderate. 60 Tablet 01/04/2024 Active Insulin Glargine Solostar 100 UNIT/ML Subcutaneous Solution Pen-injector (Basaglar Kiya)Indication s:Type 2 diabetes mellitus with hemoglobin A1c goal of less than 7.0% (HCC) Inject 15 Units under the skin every night at bedtime. Titrate up as direct by clinic. Max daily dose of 25 units. 30 mL 5 03/30/2023 Discontinu ed(Refill) oxyCODONE HCl 5 MG Oral Tablet (Oxy IR)Indications:Fib romyalgia Take 1 Tablet by mouth every 8 hours as needed for severe Pain 60 Tablet 11/18/2023 Discontinu ed(Refill) Pantoprazole Sodium 40 MG Oral Tablet Delayed Release (Protonix) Take 1 Tablet by mouth in the morning. 12/31/2023 Discontinu ed(Refill) documented as of this encounter [...] mRNA, LNP-s, No Pre serve, 2-Dose Series (Modti) 12/18/2020,06/20/2020,05/30/2020 COVID-19, LNP-s, No Preserve , Marshal-sucrose, [...] Sign Reading Time Taken Comments Blood Pressure 146/78 01/04/2024 9:14 AM EDT Pulse 86 01/04/2024 9:14 AM EDT Temperature 36 C (96.8 F) 01/04/2024 9:14 AM EDT Respiratory Rate - - Oxygen Saturation 97% 01/04/2024 9:14 AM EDT Inhaled Oxygen Concentration - - Weight - - Height - - Body Mass Index - - documented in this encounter Progress Notes * Kb Landon Sherray, DO - 01/04/2024 9:27 AM EDT Images from the original note were not included. Assessment and Plan Assessment & Plan Gastrointestinal Bleed/Hospital Discharge Recent hospitalization for a significant GI bleed with a drop in hemoglobin requiring 8 units of blood transfusion. Currently experiencing fatigue, lightheadedness, and shortness of breath. No current signs of ongoing bleeding from esophagus or stomach and no change in stool color or emesis. -Order CBC, INR, and urine analysis and culture today. -Continue high dose Protonix and famotidine. -Check hemoglobin levels in 1-2 weeks. Anticoagulation History of atrial fibrillation, currently off Coumadin due to recent GI bleed. -Hold Coumadin until certain that GI bleeding has stopped. -Communicate with [facility] clinic regarding current status. Diabetes Blood sugars consistently in the 200s, possibly due to recent stress and illness. -Increase Lantus to 15 units for today and tomorrow. -Resume Ozempic on January 05. -Check blood sugars regularly and adjust insulin as needed. Possible Sinus Infection Reports of ear pain and coughing up yellow drainage. -Start Keflex and Florastor (if available at pharmacy). -Advise patient to report if fever develops. Pain Management Request for refill of Oxycodone. -Refill Oxycodone prescription. Follow-up Recent significant health events and ongoing issues. -Schedule nurse check by Tuesday. -Attempt to schedule appointment with Jackeline in the next 1-2 weeks. -Advise patient to report any worsening symptoms or new concerns. History of Present Illness Barbie Davidson is a 68 year old female that presents for Hospital Follow-Up ([facility] d/c 12/30-- GIbleed, polyp (benign) removed it. /Notice hematuria last night, no pain. ) History of Present Illness She reports feeling lightheaded and extremely fatigued, with shortness of breath even with minimal exertion. She also notes a recent episode of nausea, similar to what she experienced prior to her hospital admission. In addition to these symptoms, Joanie reports seeing blood in her urine starting the previous night.She denies any burning sensation or frequency of urination, but notes a feeling of fullness in the bladder area. She also mentions that she has been having normal bowel movements. Joanie also reports pain in her right ear, suspecting a possible sinus infection. She describes a feeling of pressure on the right side of her face and has been coughing up yellow drainage. She deniesany fever but notes that her blood sugars have been consistently high, in the 200s, since her hospitalization. Joanie also mentions that she has not been taking her usual medications, including her blood thinners and Ozempic, since her hospital stay. She has been taking Ferasol for iron supplementation and hasbeen prescribed Protonix for acid suppression following her gastric bleed. Physical Exam Vitals: 01/04/24 0914 Temp: 36 C (96.8 F) Pulse: 86 SpO2: 97% BP: 146/78 Physical Exam Constitutional: General: She is not in acute distress. Appearance: She is ill-appearing. She is not toxic-appearing. HENT: Nose: Congestion present. Mouth/Throat: Mouth: Mucous membranes are moist. Cardiovascular: Pulses: Normal pulses. Pulmonary: Effort: Pulmonary effort is normal. Skin: General: Skin is warm. Neurological: General: No focal deficit present. Mental Status: She is alert. Mental status is at baseline. Wrap-Up Time: Total time today was 44 minutes excluding any time spent in the performance of separately billed services. Text in this note was generated using an ambient documentation service. I discussed the use of a device to record and summarize our discussion today. All persons present during the encounter consented to its use. documented in this encounter Nursing Notes * Tomeka Zhang LPN - 01/04/2024 9:11 AM EDT The patient has been properly identified by confirmation of name and date of . Chief Complaint Patient presents with Hospital Follow-Up [facility] d/c 12/30-- GI bleed, polyp (benign) removed it. Notice hematuria last night, no pain. Nausea this morning, decreased appetite. Trying to hydrate, not easy. Started Protonix. Tolerating well. No blood in stool currently. Last dose of warfarin 12/23 pre hospital. documented in this encounter Plan of Treatment Upcoming Encounters Date Type Department Care Team (Late st Contact Info) Description 01/06/2024 10:00 AM EDT Scheduled Telephone Ancillary [facility] [address] [address] Prac, Nurse Follow Up Phone Call Schedule [facility] [address] [address] 01/10/2024 1:00 PM EST Office Visit [facility] [address] [address] Landon Quiles DO [address] [place] [address] 01/11/2024 1:00 PM EST Immunization/Injection [facility] [place] [facility] [phone] Sarai, Chair 2 Hem Onc [address] [address] 01/19/2024 7:00 AM EST Office Visit [facility] [address] [address] Hakeem Samson CRNP [address] [place] [address] 02/22/2024 1:30 PM EST Office Visit Pharmacy, [address] [place] [address] Pharmacist2, [facility] [address] [place], [place] [address] 02/22/2024 2:00 PM EST Pharmacy Pharmacy, [facility] [address] [place] [address] Pharmacist2, [facility] [address] [place] [address] 02/22/2024 2:30 PM EST Anticoagulation Pharmacy, [facility] [address] [place], [place] [address] Pharmacist2, [facility] [address] [place] [address] 05/11/2024 1:40 PM EST Office Visit Family Practice [facility] [address] [place] [address] Jackeline Diaz CRNP [address] [place] [address] 05/29/2024 11:15 AM EDT Office Visit Hematology/Oncology [facility] [address] [place], [place] [phone] Abdirizak Shoemaker MD [address] [facility] [place], [place] [address] 09/17/2024 11:40 AM EDT Office Visit Sleep Disorders Ctr [facility] [address] [place] [phone] Bernadette Zuniga DO [address] [place] [address] 11/20/2024 1:45 PM EDT Office Visit Urology, [facility] [address] [place] [address] Faustino Cárdenas MD [address] [place] [address] Pending Results Name Type Priority Associated Diagnoses Date /Time CBC WITH WBC DIFFERENTIAL AND ANEMIA REFLEX WORKUP Lab Routine Hematemesis without nausea 01/04/2024 9:59 AM EDT CULTURE, URINE, QUANTITATIVE Lab Routine Gross hematuria 01/04/2024 10:27 AM EDT Scheduled Orders Name Type Priority Associated Diagnoses Orde r Schedule CBC WITH WBC DIFFERENTIAL AND ANEMIA REFLEX WORKUP Lab Routine Hematemesis without nausea Expected: 01/04/2024 (Approximate), Expires: 01/03/2025 Scheduled Procedures Name Priority Associated Diagnoses Date/Ti [...] this encounter Medical Devices Implanted Type Area Liability Claims Manager Device Identifier Shelf Expiration Date Model / Serial / Lot Graft Flex Hd 6 X 16cm [id number] - [id number] Implanted:Qty : 1 on 09/22/2010 at OR [facility] Tissue - Human Left: Breast MUSCULOSKELETAL TRANSPLANT FND 04/28/2013 [id number] / [id number] / Graft Flex Hd 6 X 16cm [id number] - [id number] Implanted:Qty : 1 on 09/22/2010 at OR [facility] Tissue - Human Right: Chest MUSCULOSKELETAL TRANSPLANT FND 04/28/2013 [id number] / [id number] / Mediport Pwr Isp 8fr [id number] - [id number] Implanted:Qty : 1 on 09/22/2010 at OR [facility] Right: Chest CR BARD : ACCESS SYSTEMS 07/13/2012 [id number] / / [id number] Breast Implant 354-2515 Saline - [id number] Implanted:Qty : 1 on 09/22/2010 at OR [facility] Right: Breast MENTOR EVA 12/13/2013 [id number] / [id number] Breast Implant 354-2515 Saline - [id number] Implanted:Qty : 1 on 09/22/2010 at OR [facility] Left: Breast MENTOR EVA 07/13/2014 [id number] / [id number] Lens Intraoc 16.5 - [id number] - [id number] Implanted:Qty : 1 on 02/20/2016 by Lincoln Garces MD at OR [facility] Left: Eye BAUSCH & LOMB 08/04/2020 [id number] / [id number] / [id number] Lens Intraoc 15.5 - [id number] - [id number] Implanted:Qty : 1 on 03/09/2016 by Lincoln Garces MD at OR [facility] Right: Eye BAUSCH & LOMB 12/04/2017 [id number] / [id number] / documented as of this encounter Results * (ABNORMAL) URINALYSIS WITH MICROSCOPIC EXAM (01/04/2024 10:27 AM EDT) Color, Urine Radha(A) Light Yellow, Yellow, Dark Yellow 01/04/2024 10:46 AM EDT [facility]10 Clarity, Urine Slightly Cloudy(A) Clear 01/04/2024 10:46 AM EDT [facility] Glucose, Urine Negative Negative mg/dL 01/04/2024 10:46 AM EDT [facility]10 Bilirubin, Urine Small(A) Negative 01/04/20 10:46 AM EDT [facility]10 Ketone, Urine Trace(A) Negative mg/dL 01/04/2024 10:46 AM EDT [facility]10 Specific [place], Urine >=1.030 1.003 - 1.030 01/04/2024 10:46 AM EDT [facility]10 Blood, Urine Trace(A) Negative 01/04/2024 10:46 AM EDT [facility] pH, Urine 6.0 5.0 - 7.5 Units 01/04/2024 10:46 AM EDT [facility] 57[facility]10 Protein, Urine 100(A) Negative mg/dL 01/04/2024 10:46 AM EDT [facility]10 Urobilinogen, Urine 0.2 0.2, 1.0 mg/dL 01/04/2024 10:46 AM EDT [facility] 57[facility]10 Nitrite, Urine Positive(A) Negative 10:46 AM EDT [facility] 57[facility]10 Esterase, Urine Negative Negative 10:46 AM EDT [facility] 57[facility]10 RBC, Urine 3-5(A) 0 - 2 /HPF 01/04/2024 10:46 AM EDT [facility] [place]10 WBC, Urine 10-19(A) 0 - 2 /HPF 01/04/2024 10:46 AM EDT [facility] 57[facility]10 Bacteria, Urine 51-100(A) 0 - 25 /HPF 01/04/20 24 10:46 AM EDT [facility] 57[facility]10 Squamous Epithelial Cells, Urine Many(A) None /HPF 01/04/2024 10:46 AM EDT [facility] 57[facility]10 Hyaline, Cast, Urine 1-4(A) None /LPF 01/04/2024 10:46 AM EDT [facility] 57[facility]10 Transitional Epithelial Cells, Urine 1-4(A) None /HPF 01/04/2024 10:46 AM EDT [facility] 57[facility]10 Urine Urine specimen obtained by clean catch procedure / Unknown Non-blood Collection / Unknown 01/04/2024 10:27 AM EDT 01/04/2024 10:27 AM EDT Landon Quiles DO LAB URINE ORDER [facility] [place] 57[facility]10 [address] [place] [address] * PT INR (01/04/2024 9:59 AM EDT) Prothrombin Time 13.7 11.6 - 15.2 seconds 01/04/2024 10:33 AM EDT [facility] INR 1.1 0.8 - 1.2 01/04/2024 10:33 AM EDT [facility] [place] 57[facility]10 Blood Venous blood specimen / Unknown Venipuncture / Unknown 01/04/2024 9:59 AM EDT 01/04/2024 9:59 AM EDT Narrative [facility]10 - 01/04/2024 10:33 AM EDT Warfarin Therapy INR: 2.0-3.0 conventional anticoagulation INR: 2.5-3.5 high intensity anticoagulation Landon Quiles DO LAB BLOOD ORDER [facility] [id number] [place] [address] documented in this encounter Visit Diagnoses Diagnosis Hospital discharge follow-up- Primary Other follow-up examination Type 2 diabetes mellitus with hemoglobin A1c goal of less than 8.0% (HCC) Body mass index (BMI) of 45.0 to 49.9 in adult (HCC) Inflammatory polyarthritis (HCC) Unspecified inflammatory polyarthropathy Malignant neoplasm of overlapping sites of both breasts in female, estrogen receptor positive (HCC) Gross hematuria Hematemesis without nausea Type 2 diabetes mellitus with hemoglobin A1c goal of less than 7.0% (HCC) Acute recurrent maxillary sinusitis Acute maxillary sinusitis Fibromyalgia Mylagia and myositis, unspecified documented in [...] and were consensually agreed upon. Care Teams Chip Mixing Machine Operator Relationship Specialty Start Date End Date Landon Quiles DO [address] [place] [address] PCP - General Family Medicine 03/19/19 documented as of this encounter
--- OUTSIDE RECORDS SUMMARY | 2024-01-07 10:11 | External Medical Summary | Summary of Care ---
Author Name Unknown Organization [facility] Address [address] [place] [address] Phone [phone] Care Team Providers Care Epic Kaleidoscope Analyst Name Role Phone Sylvester Quiles DO Primary Care Provider Reason for Referral * Medication Prior Authorization - Pending Review Specialty Diagnoses / Procedures Referred By Contcapri harrell Referred To Contact Diagnoses Type 2 diabetes mellitus with hemoglobin A1c goal of less than 8.0% ([facility]) Uma Lanza, [facility] [address] [place] [address] Referral ID Status Reason Start Date Expiration Date V isits Requested Visits Authorized [id number] Pending Review 999 999 Reason for Visit * Reason Comments Medication Refill Encounter Details Date Type Department Care Team (Late st Contact Info) Description 01/04/2024 Refill Family Practice [facility] [address] [place] [address] Sylvester Quiles DO [address] [place] [address] Type 2 diabetes mellitus with hemoglobin A1c goal of less than 8.0% ([facility]); HTN, goal below 130/80 Allergies Active Allergy [...] Gel Apply a thin ribbon to toothbrush. [place] twice daily in place of normal toothpaste 100 mL 4 07/28/2022 Active rOPINIRole HCl 0.5 MG Oral Tablet (Requip)Indication s:Restless leg syndrome TAKE 1 TABLET BY MOUTH AT BEDTIME NEEDED RESTLESS LEGS 90 Tablet 3 12/06/2022 Active Nystatin-Triamcino lone 717627-5.1 UNIT/GM-% External Cream (Mycolog)Indicatio ns:Tinea cruris APPLY [...] not taking.Reported on 11/16/2023 GNP UltiCare Pen [place] 32G X 4 MM (Insulin Pen Needle) use to inject basaglar once daily 100 Each 3 12/27/2022 Active Ondansetron HCl 4 MG Oral TabletIndications: Nausea Take 1 Tablet by mouth every 6 hours as needed for Nausea. 60 Tablet 3 02/02/2023 Active Empagliflozin 25 MG Oral Tablet (Jardiance)Indicat ions:Type 2 diabetes mellitus with hemoglobin A1c goal of less than 7.0% ([facility]) Take 1 Tablet by mouth in the [...] Information Patient not taking.Reported on 08/22/2023 BD [employer] Skills Tray 27G X 1/2" 1 ML Kit [...] (Isoptin SR)Indications:PAT (paroxysmal atrial tachycardia) ([facility]) TAKE 1 TABLET BY MOUTH 3 [...] goal of less than 8.0% ([facility]) Use as directed. 6 Each 3 12/07/2023 Active Insulin Glargine Solostar 100 UNIT/ML Subcutaneous Solution Pen-injector (Basaglar KwikPen)Indication s:Type 2 diabetes mellitus with hemoglobin A1c goal of less than 7.0% ([facility]) Inject 10 Units under the skin [...] goal of less than 8.0% ([facility]) Inject 2 mg under the skin once [...] mRNA, LNP-s, No Pre serve, 2-Dose Series (24PageBooks) 12/18/2020,06/20/2020,05/30/2020 COVID-19, LNP-s, No Preserve , Marshal-sucrose, Ages 12+ (Pfizer) 06/25/2021 Covid-19, Mrna, Lnp-s, Pf, B ivalent, 30 Mcg, IM, 12 yrs and above (24PageBooks) 12/31/2021 H1N1 2009 Influenza, IM 02/24/2009 Hepatitis [...] Notes * Telephone Encounter - Uma Lanza [facility] - 01/05/2024 12:15 PM EDTSigned Prescriptions: Disp [...] 01/06/2024 10:00 AM EDT Scheduled Telephone Ancillary [facility] [address] [address] Prac, Nurse Follow Up Phone Call Schedule [facility] [address] [address] 01/10/2024 1:00 PM EST Office Visit Family Practice [facility] [address] [address] Sylvester Quiles, [address] [address] 01/11/2024 1:00 PM EST Immunization/Injection Hematology/Oncology Treatment, [place] [address] [place] [phone] Sarai, Chair 2 Hem Onc [address] [place] [address] 01/16/2024 1:30 PM EST Anticoagulation Pharmacy, [facility] [address] [place], [place] [address] Pharmacist2, [facility] [address] [facility] [place], [place] [address] 01/19/2024 7:00 AM EST Office Visit [facility] [place] [address] [facility]em [facility] [address] 02/22/2024 1:30 PM EST Office Visit Pharmacy, [facility] [address] [place], [place] [address] Pharmacist2, [facility] [address] [facility] [place], [place] [address] 02/22/2024 2:00 PM EST Pharmacy Pharmacy, [facility] [address] [facility] [place], [place] [address] Pharmacist2, [facility] [address] [place], [place] [address] 02/22/2024 2:30 PM EST Anticoagulation Pharmacy, [facility] [address] [place] [address] Pharmacist2, [facility] [address] [place] [address] 05/11/2024 1:40 PM EST Office Visit [facility] [place] [address] Jakceline Diaz CRNP [address] [facility] [place] [address] 05/29/2024 11:15 AM EDT Office Visit Hematology/Oncology [facility] [address] [place] [phone] Abdirizak Shoemaker MD [address] [facility] [place] [address] 09/17/2024 11:40 AM EDT Office Visit Sleep Disorders Ctr [facility] [address] [place] [phone] Bernadette Zuniga DO [address] [place] [address] 11/20/2024 1:45 PM EDT Office Visit Urology, [facility] [address] [place] [address] Faustino Cárdenas MD [address] [facility] [place] [address] Scheduled Procedures Name Priority Associated Diagnoses Date/Ti [...] this encounter Medical Devices Implanted Type Area Tool Dispatcher Device Identifier Shelf Expiration Date Model / Serial / Lot Graft Flex Hd 6 X 16cm [id number] - [id number] Implanted:Qty : 1 [place] 09/22/2010 [place] [facility] [place] - Human Left: Breast MUSCULOSKELETAL TRANSPLANT FND 04/28/2013 [id number] / [id number] / Graft Flex Hd 6 X 16cm [id number] - [id number] Implanted:Qty : 1 on 09/22/2010 [place] [facility] [place] - Human Right: Chest MUSCULOSKELETAL TRANSPLANT FND 04/28/2013 [id number] / [id number] / Mediport Pwr Isp 8fr [id number] - [id number] Implanted:Qty : 1 on 09/22/2010 [place] [facility] [place]: Chest CR BARD : ACCESS SYSTEMS 07/13/2012 [id number] / / [id number] Breast Implant 354-2515 Saline - [id number] Implanted:Qty : 1 on 09/22/2010 [place] [facility] [place]: Breast MENTOR EVA 12/13/2013 354-2515 / [id number] / [id number] Breast Implant 354-2515 Saline - [id number] Implanted:Qty : 1 on 09/22/2010 [place] [facility] [place]: Breast MENTOR EVA 07/13/2014 354-2515 / [id number] / [id number] Lens Intraoc 16.5 - [id number] - [id number] Implanted:Qty : 1 on 02/20/2016 by Lincoln Garces MD at OR [facility] Left: Eye BAUSCH & LOMB 08/04/2020 [id number] / [id number] / [id number] Lens Intraoc 15.5 - [id number] - [id number] Implanted:Qty : 1 on 03/09/2016 by Lincoln Garces MD at OR [facility] Right: Eye BAUSCH & LOMB 12/04/2017 [id number] / [id number] / documented as of this encounter Visit Diagnoses Diagnosis Type 2 diabetes mellitus with hemoglobin A1c goal of less than 8.0% ([facility]) HTN, goal below 130/80 Unspecified essential hypertension [...] and were consensually agreed upon. Care Teams Epic Kaleidoscope Analyst Relationship Specialty Start Date End Date Sylvester Quiles DO [address] [place] [address] PCP - General Family Medicine 03/19/19 documented as of this encounter
--- OUTSIDE RECORDS SUMMARY | 2024-01-07 10:11 | External Medical Summary | Summary of Care ---
Author Name Unknown Organization [facility] Address [address] [place] [address] Phone [phone] Care Team Providers Care Weaver Hand Name Role Phone Kb Landon Callejasray Primary Care Provider Reason for Visit * Reason Comments Outpatient Testing Encounter Details Date Type Department Care Team (Late st Contact Info) Description 01/04/2024 9:50 AM EDT Laboratory Laboratory, [facility] [address] [place] [address] [facility] [address] [place] [address] Hematemesis without nausea; Gross hematuria Allergies Active Allergy Reactions Criticality Noted Date [...] Gel Apply a thin ribbon to toothbrush. [place] twice daily in place of normal toothpaste 100 mL 4 07/28/2022 Active rOPINIRole HCl 0.5 MG Oral Tablet (Requip)Indications :Restless leg syndrome TAKE 1 TABLET BY MOUTH AT BEDTIME NEEDED RESTLESS LEGS 90 Tablet 3 12/06/2022 Active Nystatin-Triamcinol one 424807-7.1 UNIT/GM-% External Cream (Mycolog)Indication s:Tinea cruris APPLY [...] not taking.Reported on 11/16/2023 GNP UltiCare Pen Falconer 32G X 4 MM (Insulin Pen Needle) [...] Information Patient not taking.Reported on 08/22/2023 BD Industrial Renderer Tray 27G X 1/2" 1 ML Kit [...] Extended Release (Isoptin SR)Indications:PAT (paroxysmal atrial tachycardia) ([facility]) TAKE 1 TABLET BY MOUTH [...] hemoglobin A1c goal of less than 8.0% ([facility]) Use as directed. 6 Each 3 12/07/2023 Active Insulin Glargine Solostar 100 UNIT/ML Subcutaneous Solution Pen-injector (Basaglar KwikPen)Indications :Type 2 diabetes mellitus with hemoglobin A1c goal of less than 7.0% ([facility]) Inject 10 Units under the [...] for 10 days. 20 Capsule 01/04/2024 Active documented as of this encounter [...] sided 5mm noted on CT done by Matthwe 05/05/17 Left nephrolithiasis 01/23/2017 020 Moderate single [...] mRNA, LNP-s, No Pre serve, 2-Dose Series (STAR FESTIVAL) 12/18/2020,06/20/2020,05/30/2020 COVID-19, LNP-s, No Preserve , Marshal-sucrose, [...] 1:42 PM EST Sexual Orientation Straight 03/29/2019 1 :42 PM EST Job Start Date Occupation Industry Not on file Not on file Not on file documented as of this encounter Plan of Treatment Upcoming Encounters Date Type Department Care Team (Late st Contact Info) Description 01/06/2024 10:00 AM EDT Scheduled Telephone Ancillary [facility] [address] [place] [address] Prac, Nurse Follow Up Phone Call Schedule [facility] [address] [place] [address] 01/10/2024 1:00 PM EST Office Visit [facility] [address] [place] [address] Landon Quiles DO [address] [place] [address] 01/11/2024 1:00 PM EST Immunization/Injection Hematology/[address], [address] [phone] Sarai, Chair 2 Hem Onc [address] [address] 01/19/2024 7:00 AM EST Office Visit [facility] [address] [place] [address] Hakeem Samson CRNP [address] [address] [address] 02/22/2024 1:30 PM EST Office Visit Pharmacy, [facility] [address] [place], [place] [address] Pharmacist2, [facility] [address] [place] [address] 02/22/2024 2:00 PM EST Pharmacy Pharmacy, [facility] [address] [place] [address] Pharmacist2, [facility] [address] [place] [address] 02/22/2024 2:30 PM EST Anticoagulation Pharmacy, [facility] [address] [place] [address] Pharmacist2, [facility] [address] [place] [address] 05/11/2024 1:40 PM EST Office Visit Family Practice [facility] [address] [place] [address] Jackeline Diaz CRNP [address] [place] [address] 05/29/2024 11:15 AM EDT Office Visit Hematology/Oncology [facility] [address] [place] [address] Abdirizak Shoemaker MD 200 [facility] [place], [place] [address] 09/17/2024 11:40 AM EDT Office Visit Sleep Disorders Ctr [facility] [address] [place] [phone] Bernadette Zuniga DO [address] [place] [address] 11/20/2024 1:45 PM EDT Office Visit Urology, [facility] [address] [place] [address] Faustino Cárdenas MD [address] [place] [address] Pending Results Name Type Priority Associated Diagnoses Date /Time CBC WITH WBC DIFFERENTIAL AND ANEMIA REFLEX WORKUP Lab Routine Hematemesis without nausea 01/04/2024 9:59 AM EDT ANEMIA CBC Lab Routine Hematemesis without nausea 01/04/2024 9:59 AM EDT DIFFERENTIAL, AUTOMATED Lab Routine Hematemesis without nausea 01/04/2024 9:59 AM EDT ANEMIA REFLEX CHEMISTRY HOLD Lab Routine Hematemesis without nausea 01/04/2024 9:59 AM EDT URINALYSIS WITH MICROSCOPIC EXAM Lab Routine Gross hematuria 01/04/2024 10:27 AM EDT Scheduled Procedures Name Priority Associated Diagnoses [...] this encounter Medical Devices Implanted Type Area Manager Practice Device Identifier Shelf Expiration Date Model / Serial / Lot Graft Flex Hd 6 X 16cm [id number] - [id number] Implanted:Qty : 1 on 09/22/2010 at OR [facility] [place] Tissue - Human Left: Breast MUSCULOSKELETAL TRANSPLANT FND 04/28/2013 [id number] / [id number] / Graft Flex Hd 6 X 16cm [id number] - [id number] Implanted:Qty : 1 on 09/22/2010 at OR [facility] [place] Tissue - Human Right: Chest MUSCULOSKELETAL TRANSPLANT FND 04/28/2013 [id number] / [id number] / Mediport Pwr Isp 8fr [id number] - [id number] Implanted:Qty : 1 on 09/22/2010 at OR [facility] Right: Chest CR BARD : ACCESS SYSTEMS 07/13/2012 [id number] / / [id number] Breast Implant 354-2515 Saline - [id number] Implanted:Qty : 1 on 09/22/2010 at OR [facility] [place] Right: Breast MENTOR EVA 12/13/2013 [id number] / [id number] / [id number] Breast Implant 354-2515 Saline - [id number] Implanted:Qty : 1 on 09/22/2010 at OR [facility] [place] Left: Breast MENTOR EVA 07/13/2014 354-2515 / [id number] / [id number] Lens Intraoc 16.5 - [id number] - [id number] Implanted:Qty : 1 on 02/20/2016 by Lincoln Garces MD at OR [facility] Left: Eye BAUSCH & LOMB 08/04/2020 [id number] / [id number] / [id number] Lens Intraoc 15.5 - [id number] - [id number] Implanted:Qty : 1 on 03/09/2016 by Lincoln Garces MD at OR [facility] Right: Eye BAUSCH & LOMB 12/04/2017 [id number] / [id number] / documented as of this encounter Procedures Procedure Name Priority Date/Time Associated Diagnosis Comments PT INR Routine 01/04/2024 9:59 AM EDT Hematemesis without nausea documented in this encounter Results * PT INR (01/04/2024 9:59 AM EDT) Prothrombin Time 13.7 11.6 - 15.2 seconds 01/04/2024 10:33 AM EDT [facility]10 INR 1.1 0.8 - 1.2 01/04/2024 10:33 AM EDT [facility] [place] [facility]-10 Blood Venous blood specimen / Unknown Venipuncture / Unknown 01/04/2024 9:59 AM EDT 01/04/2024 9:59 AM EDT Narrative [facility] 57-10 - 01/04/2024 10:33 AM EDT Warfarin Therapy INR: 2.0-3.0 conventional anticoagulation INR: 2.5-3.5 high intensity anticoagulation Landon Quiles DO LAB BLOOD ORDER JOSÉ NAKUL [facility] 57-10 [address] [place] [address] documented in this encounter Visit Diagnoses Diagnosis Hematemesis without nausea Gross hematuria documented in this encounter Advance Directives * [...] and were consensually agreed upon. Care Teams Weaver Hand Relationship Specialty Start Date End Date Landon Quiles DO [address] [place] [address] PCP - General Family Medicine 03/19/19 documented as of this encounter
--- OUTSIDE RECORDS SUMMARY | 2024-01-07 10:12 | External Medical Summary | Summary of Care ---
Author Name Unknown Organization [facility] Address [address] [place] [address] Phone [phone] Care Team Providers Care Poising Inspector Name Role Phone Landon Quiles DO Primary Care Provider Encounter Details Date Type Department Care Team (Late st Contact Info) Description 12/28/2023 Orders Only Family Practice [facility] [address] [place] [address] Landon Quiles DO [address] [place] [address] Allergies Active Allergy Reactions Criticality Noted Date [...] as of this encounter (statuses as of 12/28/2023) Medications Medication Sig Dispensed Refills Start Date [...] Gel Apply a thin ribbon to toothbrush. [place] twice daily in place of normal toothpaste 100 mL 4 3 Active rOPINIRole HCl 0.5 MG Oral Tablet (Requip)Indication s:Restless leg syndrome TAKE 1 TABLET BY MOUTH AT BEDTIME NEEDED RESTLESS LEGS 90 Tablet 3 3 Active Nystatin-Triamcino lone 953390-1.1 UNIT/GM-% External Cream (Mycolog)Indicatio ns:Tinea cruris APPLY [...] 3 01/01/20 24 Active GNP UltiCare Pen [place] 32G X 4 MM (Insulin Pen Needle) [...] Information Patient not taking.Reported on 08/22/2023 BD Track Laying Machine Operator Tray 27G X 1/2" 1 ML [...] as of this encounter (statuses as of 12/28/2023) Active Problems Problem Noted Date Diagnosed Date [...] as of this encounter (statuses as of 12/28/2023) Resolved Problems Problem Noted Date Diagnosed Date [...] as of this encounter (statuses as of 12/28/2023) Immunizations Name Administration Dates Next Due COVID-19 mRNA, LNP-s, No Pre serve, 2-Dose Series (Patientco) 12/18/2020,06/20/2020,05/30/2020 COVID-19, LNP-s, No Preserve , Marshal-sucrose, Ages 12+ (Pfizer) 06/25/2021 Covid-19, Mrna, Lnp-s, Pf, B ivalent, 30 Mcg, IM, 12 yrs and above (Patientco) 12/31/2021 H1N1 2009 Influenza, IM 02/24/2009 Hepatitis [...] Care Team (Latest Contact Info) Description 01/04/2024 1:00 PM EDT Anticoagulation Pharmacy, [facility] [address] [place] [address] Pharmacist2, [facility] [address] [place] [address] 01/10/2024 1:00 PM EST Office Visit Family Practice [facility] [address] [place] [address] Landon Quiles, [address] [facility] [place] [address] 01/11/2024 1:00 PM EST Immunization/Injection [facility]ematology[facility] Treatment, [place] [facility] [phone] Sarai, Chair 2 Hem Onc [place] [address] [place] [address] 02/22/2024 1:30 PM EST Office Visit Pharmacy, [facility] [address] [place] [address] Pharmacist2, [facility] [address] [place] [address] 02/22/2024 2:00 PM EST Pharmacy Pharmacy, [facility] [address] [place] [address] Pharmacist2, [facility] [address] [place] [address] 02/22/2024 2:30 PM EST Anticoagulation Pharmacy, [facility] [address] [place] [address] Pharmacist2, [facility] [address] [place] [address] 05/11/2024 1:40 PM EST Office Visit Family Practice [facility] [address] [facility] [place] [address] Jackeline Diaz CRNP 132 [facility] [place] [address] 05/29/2024 11:15 AM EDT Office Visit Hematology/Oncology [facility] [address] [place] [address] Abdirizak Shoemaker MD [address] [place] [address] 09/17/2024 11:40 AM EDT Office Visit [facility] Disorders Ctr [facility] [address] [facility] [place] [phone] Bernadette Zuniga, 132 [facility] [place] [address] 11/20/2024 1:45 PM EDT Office Visit Urology, [facility] [address] [facility] [place] [address] Faustino Cárdenas MD [address] [place] [address] Scheduled Procedures Name Priority Associated Diagnoses Date/Ti [...] this encounter Medical Devices Implanted Type Area Engraving Plate Maker Device Identifier Shelf Expiration Date Model / Serial / Lot Graft Flex Hd 6 X 16cm [id number] - [id number] Implanted:Qty : 1 on 09/22/2010 at [place] [facility] Tissue - Human Left: Breast MUSCULOSKELETAL TRANSPLANT FND 04/28/2013 [id number] / [id number] / Graft Flex Hd 6 X 16cm [id number] - [id number] Implanted:Qty : 1 on 09/22/2010 at [place] [facility] Tissue - Human Right: Chest MUSCULOSKELETAL TRANSPLANT FND 04/28/2013 [id number] / [id number] / Mediport Pwr Isp 8fr [id number] - [id number] Implanted:Qty : 1 on 09/22/2010 at [place] [facility] Right: Chest CR BARD : ACCESS SYSTEMS 07/13/2012 [id number] / / [id number] Breast Implant 354-8645 Saline - [id number] Implanted:Qty : 1 on 09/22/2010 at [place] [facility] Right: Breast MENTOR EVA 12/13/2013 354-2515 / [id number] Breast Implant 354-2515 Saline - [id number] Implanted:Qty : 1 on 09/22/2010 at [facility] Left: Breast MENTOR EVA 07/13/2014 354-2515 / [id number] Lens Intraoc 16.5 - [id number] - [id number] Implanted:Qty : 1 on 02/20/2016 by Lincoln Garces MD at OR [facility] Left: Eye BAUSCH & LOMB 08/04/2020 [id number] / [id number] / [id number] Lens Intraoc 15.5 - [id number] - [id number] Implanted:Qty : 1 on 03/09/2016 by Lincoln Garces MD at [facility] Right: Eye BAUSCH & LOMB 12/04/2017 [id number] / [id number] / documented as of this encounter Procedures Procedure Name Priority Date/Time Associated Diagnosis Comments UPPER ENDOSCOPY, OUTSIDE PROCEDURE Routine 12/26/2023 documented in this encounter Results * UPPER ENDOSCOPY, OUTSIDE PROCEDURE (12/26/2023) 12/26/2023 History Per Patient GASTRO UPPER OUTSIDE LAB (SEE SCANNED REPORT) documented in this encounter Advance Directives * [...] and were consensually agreed upon. Care Teams Poising Inspector Relationship Specialty Start Date End Date Landon Quiles DO [address] [place] [address] PCP - General Family Medicine 03/19/19 documented as of this encounter
--- OUTSIDE RECORDS SUMMARY | 2024-01-07 10:12 | External Medical Summary ---
Author Name Unknown Address Unknown Organization [id number]:LABORATORY [facility] [place] - [address] [facility] [address] Laboratory Report Ordering Provider Test Date Status ERIK PHAN 01/04/2024 09:59:34 Final Observation Date Value Abnormality Reference (Units ) Status WBC, Total 01/04/2024 09:59:34 6.65 4.00-10.8 0 (K/uL) Final RBC 01/04/2024 09:59:34 2.50 3.85-5.15 (M/uL) Final Hemoglobin 01/04/2024 09:59:34 7.7 Below low normal 12 .0-15.3 (g/dL) Final Anemia reflex testing trigge rs on a HGB < 12.0 for Females and HGB < 13.0 for Males in accordance with the WHO Anemia Guidelines
Anemia reflex testing triggers on a HGB < 12.0 for Females and HGB < 13.0 for Males in accordance with the WHO Anemia Guidelines HCT 01/04/2024 09:59:34 25.9 Below low normal 36. 0-45.2 (%) Final MCV 01/04/2024 09:59:34 103.6 81.5-97.5 (fL) Final MCH 01/04/2024 09:59:34 30.8 27.0-34.0 (pg) Final MCHC 01/04/2024 09:59:34 29.7 32.0-36.0 (g/dL) Final RDW 01/04/2024 09:59:34 19.8 11.5-15.5 (%) Final Platelets 01/04/2024 09:59:34 160 140-400 (K /uL) Final MPV 01/04/2024 09:59:34 11.7 6.6-11.1 ( fL) Final Nucleated erythrocytes/100 leukocytes [Ratio] in Blood by Automated count 01/04/2024 09:59:34 0 <=0 (/100 WBCs) Fi nal Performing Location LABORATORY [facility] [place] - [address] [place] [facility] [address]
--- OUTSIDE RECORDS SUMMARY | 2024-01-07 10:12 | External Medical Summary ---
Author Name Unknown Address Unknown Organization [id number]:LABORATORY [facility] [place] - [address] [facility] [address] Laboratory Report Ordering Provider Test Date Status ERIK PHAN 01/04/2024 09:59:34 Final Observation Date Value Abnormality Reference (Units ) Status Folic Acid 01/04/2024 09:59:34 15.2 >4.5 (ng/ mL) Final Performing Location LABORATORY [facility] - [address] [facility] [address]
--- OUTSIDE RECORDS SUMMARY | 2024-01-07 10:12 | External Medical Summary ---
Author Name Unknown Address Unknown Organization [id number][place] [place] [address] [facility] [place] [address] Laboratory Report Ordering Provider Test Date Status ERIK PHAN 01/04/2024 09:59:34 Final Observation Date Value Abnormality Reference (Units ) Status Creatinine 01/04/2024 09:59:34 0.8 0.5-1.0 (mg/dL) Final Glomerular filtration rate/1.73 sq M.predicted [Volume Rate/Area] in Serum, Plasma or Blood by Creatinine-based formula (CKD-EPI) 01/04/2024 09:59:34 80 >=60 (mL/min) Final eGFR is calculated based on the CKD-EPI 2020 equation. Performing Location [facility] [place] [address] [place] [address]
--- OUTSIDE RECORDS SUMMARY | 2024-01-07 10:12 | External Medical Summary ---
Author Name Unknown Address Unknown Organization [id number][place] [place] [address] [facility] [address] Laboratory Report Ordering Provider Test Date Status ERIK PHAN 01/04/2024 09:59:34 Final Observation Date Value Abnormality Reference (Units ) Status TSH 01/04/2024 09:59:34 2.33 0.27-4.20 (uIU/mL) Final Performing Location LABORATORY [facility] - [address] [facility] [address]
--- OUTSIDE RECORDS SUMMARY | 2024-01-07 10:12 | External Medical Summary | Summary of Care ---
Author Name Unknown Organization [facility] Address [address] [place] [address] Phone [phone] Care Team Providers Care Cigarette Paper Tester Name Role Phone Landon Quiles Primary Care Provider Reason for Visit * Reason Onset Date Comments Hospital Follow-Up 01/02/2024 [facility] 12/30 TO C call Encounter Details Date Type Department Care Team (Late st Contact Info) Description 01/02/2024 Telephone Family Practice [facility] [address] [place] [address] Kimmy Abobtt, RN Hospital Follow-Up ([facility] 12/30 SOLO call) Allergies Active Allergy Reactions Criticality Noted Date [...] as of this encounter (statuses as of 01/02/2024) Medications Medication Sig Dispensed Refills Start Date End Date Status TYLENOL ARTHRITIS PAIN 650 MG PO TBCR 2 at bedtime Active NEBULIZER COMPRESSOR MISCIndications: Asthma, severity to be determined Use as directed 1 Each 1 05/30/19 13 Active Additional Information Patient not taking.Informant: Patient, Reported on 11/16/2023 Multiple Vitamins-Mineral s (WOMENS 50+ ADVANCED) CAPS [...] Gel Apply a thin ribbon to toothbrush. Sheridan twice daily in place of normal toothpaste 100 mL 4 07/29/19 23 Active rOPINIRole HCl 0.5 MG Oral Tablet (Requip)Indicati ons:Restless leg syndrome TAKE 1 TABLET BY MOUTH AT BEDTIME NEEDED RESTLESS LEGS 90 Tablet 3 12/07/19 23 Active Nystatin-Triamci nolone 095960-2.1 UNIT/GM-% External Cream (Mycolog)Indicat ions:Tinea cruris APPLY TOPICALLY TO AFFECTED AREA TWO TIMES A DAY FOR 14 DAYS 120 g 1 12/10/19 23 Active Warfarin Sodium 5 MG Oral Tablet (Coumadin)Indica tions:History of pulmonary embolism,PAT (paroxysmal atrial tachycardia) ([facility]) Take by mouth 5 mg ( 1 tablet) every Tue, Shira; 7.5 mg (1 1/2 tablets) all other days or as directed 130 Tablet 3 12/14/19 23 Active cycloSPORINE 0.05 % Ophthalmic Emulsion (Restasis) Instill 1 drop into both eyes every 12 hours 60 Each 6 12/22/19 23 Active Additional Information Patient not taking.Reported on 11/16/2023 GNP UltiCare Pen [place] 32G X 4 MM (Insulin Pen Needle) use to inject basaglar once daily 100 Each 3 12/28/19 23 Active Ozempic (2 MG/DOSE) 8 MG/3ML Subcutaneous Solution Pen-injector (Semaglutide (2 MG/DOSE))Indicat ions:Type 2 diabetes mellitus with hemoglobin A1c goal of less than 8.0% (HCC) Inject 2 mg under the skin once a week. 9 mL 3 01/07/20 23 Active Ondansetron HCl 4 MG Oral TabletIndication s:Nausea Take 1 Tablet by mouth every 6 hours as needed for Nausea. 60 Tablet 3 02/03/20 23 Active Empagliflozin 25 MG Oral Tablet (Jardiance)Indic ations:Type 2 diabetes mellitus with hemoglobin A1c goal of less than 7.0% (HCC) Take 1 Tablet by mouth in the morning. 90 Tablet 3 02/15/20 23 Active Insulin Glargine Solostar 100 UNIT/ML Subcutaneous Solution Pen-injector (Basaglar KwshanPen)Indicati ons:Type 2 diabetes mellitus with hemoglobin A1c [...] 1/2 TABLET BEFORE BEDTIME 90 Tablet 1 07/18/19 24 Active Sodium Bicarbonate 650 MG Oral Tablet Take 1 Tablet by mouth in the morning and 1 Tablet before bedtime. 180 Tablet 3 07/18/19 24 Active medroxyPROGESTER one Acetate 10 MG Oral Tablet (Provera)Indicat ions:Endometrial hyperplasia without atypia, simple Take 1 Tablet by mouth in the morning. 30 Tablet 12 07/18/19 24 Active Amoxicillin 500 MG Oral Capsule (Amoxil) take 1 capsule (500 mg) by oral route 2 times per day. Start this 2 days before tooth extraction. 14 Capsule 08/03/19 24 Active Additional Information Patient not taking.Reported on 08/22/2023 [employer] Intelligence Superintendent Tray 27G X 1/2" 1 ML Kit [...] Release (Isoptin SR)Indications:P AT (paroxysmal atrial tachycardia) ([facility]) TAKE 1 TABLET BY MOUTH 3 TIMES A DAY. 270 Tablet 3 08/31/19 24 025 Active Fluticasone-Salm eterol 230-21 MCG/ACT Inhalation Aerosol (Advair HFA) Inhale 2 Puffs by mouth in the morning and 2 Puffs before bedtime. 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 05/12/19 24 Active metFORMIN HCl ER 500 MG Oral Tablet Extended Release 24 Hour (Glucophage XR) TAKE 4 TABLETS BY MOUTH DAILY WITH DINNER. 360 Tablet 3 10/29/19 24 025 Active oxyCODONE HCl 5 MG Oral Tablet (Oxy IR)Indications:F ibromyalgia Take 1 Tablet by mouth every 8 hours as needed for severe Pain 60 Tablet 11/18/19 24 Active FreeStyle Dewey 3 SensorIndication s:Type 2 diabetes mellitus with hemoglobin A1c goal of less than 8.0% ([facility]) Use as directed. 6 Each 3 12/07/19 24 Active Pantoprazole Sodium 40 MG Oral Tablet Delayed Release (Protonix) Take 1 Tablet by mouth in the morning. 12/31/19 24 Active aspirin 81 MG chewable tabletIndication s:Morbid obesity due to excess calories ([facility]) Take 1 Tab by mouth daily. with food. 100 Tab 5 12/04/19 17 024 Discontinued Lansoprazole 15 MG Oral Capsule Delayed Release (Prevacid) Take 1 Capsule by mouth in the morning. 90 Capsule 3 09/21/19 24 024 Discontinued(M edication/Dose Changed) documented as of this encounter (statuses as of 01/02/2024) Active Problems Problem Noted Date Diagnosed Date [...] as of this encounter (statuses as of 01/02/2024) Resolved Problems Problem Noted Date Diagnosed Date [...] as of this encounter (statuses as of 01/02/2024) Immunizations Name Administration Dates Next Due COVID-19 mRNA, LNP-s, No Pre serve, 2-Dose Series ([employer]) 12/18/2020,06/20/2020,05/30/2020 COVID-19, LNP-s, No Preserve , Marshal-sucrose, Ages 12+ ([employer]) 06/25/2021 Covid-19, Mrna, Lnp-s, Pf, B ivalent, 30 Mcg, IM, 12 yrs and above ([employer]) 12/31/2021 H1N1 2009 Influenza, IM 02/24/2009 Hepatitis [...] encounter Miscellaneous Notes * Telephone Encounter - Kimmy Abbott RN - 01/02/2024 12:56 PM EDT Transitions of Care Note Reason for Referral:Recent Admission Phone visit for follow up: SOLO Admitted to: [facility], Date: 12/24 Discharged to: home, Date: 12/30 Diagnosis driving hospitalization: Upper GI bleed due to gastric polyp Source/Contact: Patient SUBJECTIVE Consent: Verbal consent for review of hospital discharge: Yes REVIEW OF SYSTEMS Patient/Other Reports: Current patient/caregiver problems or concerns: none at this time CV: Denies problems Pulmonary: Denies problems Chills/Sweats/Fever:Denies chills/sweats Denies fever Appetite:Denies problems such as nausea, vomiting, burning, decreased appetite Current diet: as tolerated Bowel: denies problems Bladder: denies problems Wound (If applicable): N/A Pain:Denies Sleep:Denies problems FUNCTIONAL STATUS: ADL'S: Needs Assistance With:N/A as pt is independent IADL'S: Needs Assistance With:N/A as pt is independent Cognitive and Mental Health: denies problems, alert and oriented x 3, and able to communicate, understand instructions, process information. MEDICATION RECONCILIATION Medications: Discharge med list reviewed with patient or caregiver New medication(s) filled since hospitalization- Protonix Discontinued medication(s) since hospitalization- ASA, prevacid Reports all medications taken as prescribed. Denies side effects OBJECTIVE ASSESSMENT Medication Risk Assessment: No risks identified Did patient fail outpatient treatment? Yes Discharge instructions available for review? Yes PLAN Symptom Monitoring Interventions:Member/caregiver education - signs and symptoms to contact PrimaryCare (DO NOT DELETE-Three murphy symptoms patient is to report to PCP) 1. Hematemesis 2. BRBPR 3. Nausea [employer] Ambassador of Care interventions/Action Plan: Medication reconciliation and 5 - 7 day follow-up with PCP in place - Date: 01/03 Educated on role of SOLO completed with patient/caregiver. Educated patient/caregiver on patient right to have input on SOLO plan of care. Verification of Home Health/DME if indicated: NO Identified Care Gaps: Yes Care Gaps closed this call: Appointment made or confirmed, Medication adherence, and Transition of Care follow-up communication Re-evaluation of Plan of Care and progress towards goals achievement: Patient education this visit: Verbal, as tolerated Plan to follow-up as previously scheduled, instructed to call Primary Care Provider with change in symptoms or as needed before next follow-up, discharge needs met, verbalizes understanding and agrees with plan. Kimmy Abbott RN documented in this encounter Plan of Treatment Upcoming Encounters Date Type Department Care Team (Latest Contact Info) Description 01/04/2024 9:00 AM EDT Office Visit [facility] [address] [address] Landon Quiles DO [address] [place] [address] 01/04/2024 1:00 PM EDT Anticoagulation Pharmacy, [facility] [address] [facility] [place] [address] Pharmacist2, [facility] [address] [facility] [place] [address] 01/10/2024 1:00 PM EST Office Visit [facility] [address] [place] [address] Landon Quiles, [address] [place] [address] 01/11/2024 1:00 PM EST Immunization/Injection Hematology/Oncology Treatment, [place] [address] [place] [phone] Sarai, Chair 2 Hem Onc [facility] [address] [place], [place] [address] 02/22/2024 1:30 PM EST Office Visit Pharmacy, [facility] [address] [place], [place] [address] Pharmacist2, [facility] [address] [place] [address] 02/22/2024 2:00 PM EST Pharmacy Pharmacy, [facility] [address] [place] [address] Pharmacist2, [facility] [address] [place] [address] 02/22/2024 2:30 PM EST Anticoagulation Pharmacy, [facility] [address] [place], [place] [address] Pharmacist2, [facility] [address] [place] [address] 05/11/2024 1:40 PM EST Office Visit Family Practice [facility] [address] [place] [address] Jackeline Diaz CRNP [address] [place] [address] 05/29/2024 11:15 AM EDT Office Visit Hematology/Oncology [facility] [address] [place] [phone] Abdirizak Shoemaker MD [address] [place] [address] 09/17/2024 11:40 AM EDT Office Visit Sleep Disorders Ctr [facility] [address] [place] [phone] Bernadette Zuniga DO [address] [place] [address] 11/20/2024 1:45 PM EDT Office Visit Urology, [facility] [address] [place] [address] Faustino Cárdenas MD [address] [place] [address] Scheduled Procedures Name Priority Associated Diagnoses [...] this encounter Medical Devices Implanted Type Area [employer] Law Clerk Device Identifier Shelf Expiration Date Model / Serial / Lot Graft Flex Hd 6 X 16cm [id number] - [id number] Implanted:Qty : 1 on 09/22/2010 at [facility] Tissue - Human Left: Breast [employer] FND 04/28/2013 [id number] / [id number] / Graft Flex Hd 6 X 16cm [id number] - [id number] Implanted:Qty : 1 on 09/22/2010 at OR [facility] Tissue - Human Right: Chest [employer]LET[employer]ANS[employer] FND 04/28/2013 [id number] / [id number] / Mediport Pwr Isp 8fr [id number] - [id number] Implanted:Qty : 1 on 09/22/2010 at OR [facility] Right: Chest CR BARD : ACCESS SYSTEMS 07/13/2012 [id number] / / [id number] Breast Implant 354-2515 Saline - [id number] Implanted:Qty : 1 on 09/22/2010 at OR [facility] Right: Breast MENT[employer]A 12/13/2013 [id number] / [id number] Breast Implant 354-2515 Saline - [id number] Implanted:Qty : 1 on 09/22/2010 at OR [facility] Left: Breast [employer] 07/13/2014 354-2515 / [id number] / [id number] Lens Intraoc 16.5 - [id number] - [id number] Implanted:Qty : 1 on 02/20/2016 by Lincoln Garces MD at OR [facility] Left: Eye [employer]OMB 08/04/2020 [id number] / [id number] / [id number] Lens Intraoc 15.5 - [id number] - [id number] Implanted:Qty : 1 on 03/09/2016 by Lincoln Garces MD at OR [facility] Right: Eye [employer]OMB 12/04/2017 [id number] / [id number] / documented as of this encounter Advance [...] and were consensually agreed upon. Care Teams Cigarette Paper Tester Relationship Specialty Start Date End Date Landon Quiles DO [address] [place] [address] PCP - General Family Medicine 03/19/19 documented as of this encounter
--- OUTSIDE RECORDS SUMMARY | 2024-01-07 10:12 | External Medical Summary ---
Author Name Unknown Address Unknown Organization [id number]:LABORATORY [facility] - [facility] [address] [facility] [address] [facility] [address] Laboratory Report Ordering Provider Test Date Status ERIK PHAN 01/04/2024 09:59:34 Final Observation Date Value Abnormality Reference (Units ) Status Retic, % (auto) 01/04/2024 09:59:34 7.74 Above high normal 0.80-1.90 (%) Final Reticulocytes, Absolute 01/04/2024 09:59:34 195.0 Above high normal 31.3-100.1 (K/uL) Final Reticulocyte fraction, immature 01/04/2024 09:59:34 34.8 Above high normal 2.5-20.6 (%) Final Reticulocyte HGB 01/04/2024 09:59:34 23.5 Below low normal 29.7-37.4 (pg) Final Performing Location LABORATORY [facility] - [address] [facility] [address]
--- OUTSIDE RECORDS SUMMARY | 2024-01-07 10:12 | External Medical Summary ---
Author Name Unknown Address Unknown Organization [id number]:LABORATORY [facility] - [address] [facility] [place] [address] Laboratory Report Ordering Provider Test Date Status ERIK PHAN 01/04/2024 09:59:34 Final Observation Date Value Abnormality Reference (Units ) Status Vitamin B12 01/04/2024 09:59:34 470 710-9698 (pg/mL) Final Performing Location LABORATORY [facility] - [address] [place] [address]
--- OUTSIDE RECORDS SUMMARY | 2024-01-07 10:12 | External Medical Summary ---
Author Name Unknown Address Unknown Organization K01:[facility] [place] [address] [facility] [address] [facility] [address] Laboratory Report Ordering Provider Test Date Status ERIK PHAN 01/04/2024 09:59:34 Final Observation Date Value Abnormality Reference (Units ) Status Ferritin 01/04/2024 09:59:34 216 Above high normal 13 -150 (ng/mL) Final Postmenopausal women have hi gher ferritin levels than pre-menopausal women. The above reference interval is based on pre-menopausal women. Performing Location LABORATORY C - [address] [facility] [address]
--- NOTE | 2024-01-07 10:22 | Emergency Department Note ---
Impression & Plan Hypotension, Anemia, Lactic acidosis, Acute hyperkalemia, Acute hyperglycemia, Diffuse abdominal pain, Diaphoresis ED Provider Note NAME: CHANDNI CORDERO AGE: 68 SEX: F : 1955 ARRIVES VIA: Ambulance INFORMANT: [Patient][ems, nursing] ED PROVIDER(S): [Rodolfo Retana MD] CHIEF COMPLAINT: Weakness HISTORY OF PRESENT ILLNESS: The patient is a 68-year-old female who presents to the ED with increasing weakness, some abdominal pain and vomiting. The patient states that she was discharged from our hospital on the , about a week ago. She was in for GI bleeding and received multiple packed red blood cell transfusions. Since being discharged from the hospital, she has noticed increasing weakness. The patient was seen by her doctors office in follow-up from her hospital discharge 3 days ago and diagnosed with a UTI. She is currently on Keflex. She states that 2 days ago, she began having abdominal pain, this has escalated. The pain is diffuse. She has noticed some nausea and then this morning, vomited. There has been no fever, no diarrhea or black or bloody stool. She does not really have any respiratory complaints. Of note, her weakness is generalized. Of note, she has not restarted her warfarin since hospital discharge. PMHx/PSHx/Social Hx: See Below PHYSICAL EXAM: GENERAL: Patient is in moderate distress, pale, sweaty. HEENT: No acute trauma, normocephalic atraumatic, mucous membranes quite dry, no nasal congestion. NECK: No stridor, no adenopathy, no meningismus, trachea is midline. LUNGS: Clear to auscultation bilaterally, no wheeze, no rhonchi, breath sounds equal. Increased respiratory rate noted. HEART: Heart tones are quite distant and cannot truly be assessed at this point. ABDOMEN: Soft, obese, diffusely moderately tender. EXTREMITIES: No cyanosis, full range of motion of all the joints without pain or difficulty. Moderate bilateral pedal edema. NEUROLOGIC: Oriented x 3, no acute motor or sensory deficits, no focal weakness. SKIN: No jaundice, mild diaphoresis. Pale. Rectal: Brown stool, no renu blood. DIFFERENTIAL DIAGNOSIS: Ongoing GI bleeding, anemia, sepsis, dehydration, electrolyte imbalance, diverticulitis, bowel perforation, viral illness, UTI, among others. EMERGENCY DEPARTMENT PROCEDURES: MEDICAL DECISION MAKING: There is a mild leukocytosis, this could be consistent with infection or the stress of her presentation. Hemoglobin was quite low at 5.9. This is a drop from her recent hospital discharge. Platelet count was normal at 194. No coagulopathy. VBG did show a metabolic acidosis. No CO2 retention. Renal panel testing showed a potassium of 6. CO2 was low at 13. Anion gap was elevated at 17. Creatinine slightly high at 1.33. Lactic acid level was quite high at over 10. This lactic acid elevation could be consistent with sepsis. Bilirubin and AST were elevated. The patient appeared to be in a euthyroid state. Chest x-ray did not show pneumonia or CHF. ECG showed what appears to be a normal sinus rhythm without ischemia. Cardiac enzyme testing x 1 was slightly elevated, this troponin elevation could be secondary to cardiac injury or just mismatch secondary to her hypotension. Urinalysis showed glucose, there was some contamination, no obvious infection. Respiratory bio fire was negative. Abdominal and pelvis CT did not show any bowel obstruction or acute surgical process. No area of bleeding identified by CT imaging. Atelectasis versus lower lung pneumonia was noted incidentally. I did perform a rectal exam, the stool was brown in color, no renu blood seen. On exam, the patient looked quite unwell. She was pale and diaphoretic. She was complaining of diffuse abdominal pain. She was somewhat hypotensive. The patient was aggressively managed. A longer ultrasound-guided IV was initiated in her right arm. She had her central port accessed. The patient was given a total of 2 L of IV saline for hydration purposes and to meet criteria for the ideal body weight sepsis protocol. She received 2 g of IV cefepime as antibiotic coverage. With the high potassium, she was given IV bicarb, IV calcium, IV insulin (16 units in total) and IV glucose. She received IV Zofran for nausea, IV Phenergan for nausea. She was given IV morphine and IV fentanyl for pain control. With the above measures, the patient's blood pressure improved, she felt better and seemed in less distress. The patient appears to be suffering again from GI bleeding. Sepsis is a consideration but I think less likely given no fever or really infectious symptomatology. The diffuse abdominal pain may be secondary to a low flow state given her hypotension and severe anemia. I did speak with the ICU shortly after the patient arrived, they were unable to provide any assistance in the ED. The patient has made improvement as mentioned above, I have spoken with her at length as well as with her . Blood for transfusion has been ordered but is still not quite ready as she does have an antibody on her type and cross. I did order for 1 unit to be transfused as soon as available. The consent for transfusion was completed and signed. In short, the patient is quite ill, further workup and resuscitation is warranted. She is being transferred to the ICU. I did speak with case management, the on-call hospitalist was consulted. Prior/Outside records/notes reviewed: Discharge summary note from 12/31/2023 describing her presentation, hospital care and discharge. ECG per my interpretation: Indication was weakness. The ECG shows what is likely a normal sinus rhythm with poor P wave amplitude. Junctional rhythm was also considered. The rate was 79. There was no acute ST elevation. There was an incomplete right bundle branch block. No PVCs. The QTc was 463. Continuous Cardiac Monitoring per my interpretation: An order was placed for continuous cardiac monitoring. The monitor shows a rate of 81 with normal sinus rhythm. Imaging/x-ray results per my interpretation: Chest x-ray does not show pneumonia or CHF. Chronic Medical/Social conditions affecting care: Obesity, recent hospital stay for GI bleeding. Care/Management discussed with: Case management, the on-call hospitalist. ICU attending-Dr. Lim Level of care consideration(s): After review of the information above and other included data: --I believe the patient requires escalation of care to admission Critical Care Note: I have personally spent 63 minutes of critical care time in the direct management of this patient. This includes bedside care, interpretation of diagnostic studies, and testing, discussion with consultants, patient, and family members, and other required patient management activities. This 63 minutes is in excess of all separately billable procedures. DISPOSITION: Admission Past Med/Surg History Problem List GI bleed Diaphoresis (Acute) Diffuse abdominal pain (Acute) Acute hyperglycemia (Acute) Acute hyperkalemia (Acute) Lactic acidosis (Acute) Anemia (Acute) Hypotension (Acute) Elevated troponin I level Hyperglycemia Lactic acidosis Hypotension Hyperplastic polyp of stomach Ileus Gastrointestinal hemorrhage on warfarin therapy Acute blood loss anemia Gastric polyp Supratherapeutic INR (Acute) Anemia (Acute) Leukocytosis (Acute) Hematemesis (Acute) Acute upper gastrointestinal bleeding (Acute) Sinus tachycardia PAT (paroxysmal atrial tachycardia) Myelopathy 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 follows with Dr. Shaw Medical History Seronegative polyarthritis Rheumatoid arthritis with inflammatory polyarthropathy Osteoarthritis Overactive bladder GERD (gastroesophageal reflux disease) Diabetes mellitus, type 2 Anemia Anxiety and depression Post traumatic stress disorder Peripheral neuropathy Pulmonary embolism Several years ago Hx of deep venous thrombosis Age mid-30s after fall/trauma Atrial tachycardia Follows with Dr. Shaw Sleep apnea CPAP (compliant) Asthma Uterine hyperplasia Currently on hormone therapy Morbid obesity with BMI of 40.0-44.9, adult Limb alert care status LUE restriction Gastroparesis Raynauds phenomenon History of kidney stones Degenerative disc disease Chronic kidney disease (CKD) Stage 3 Follows with [facility]AN[facility] nephrology Neuropathy Severe legs/feet Uses assistive devices including mobilized wheelchair Fibromyalgia Hyperlipidemia Hypertension Breast cancer Invasive adenocarcinoma Dx 2010 - B/L mastectomy + chemo + radiation Restless legs syndrome Surgical History History of tooth extraction History of cataract surgery R/L Nausea and vomiting after administration of anesthetic agent History of cystoscopy Cysto, laser litho (02/19/2021): LMA#4 (iGel) at [facility] History of lithotripsy History of colonoscopy 05/20/23, MAC at [facility] History of esophagogastroduodenoscopy (EGD) History of gynecological procedure D&C, Mirena insertion (11/24/18): Grade 2 view, Glidescope#3, ETT 7.0, atraumatic elective glidescope intubation x2, 2nd attempt successful History of breast biopsy History of D&C H/O bilateral salpingo-oophorectomy H/O breast reconstruction Implants failed due to infections > subsequent removal History of carpal tunnel release R/L History of exploratory laparotomy Hx of foot surgery left History of herniorrhaphy Umbilical with mesh History of cholecystectomy History of vascular access device Mediport power port (Right chest) History of bilateral mastectomy LUE restriction Family History Brother Family history of diabetes mellitus Father Family history of diabetes mellitus Mother Family history of diabetes mellitus Other No family history of adverse response to anesthesia Social History Smoking Status: Never smoker Tobacco Type: Cigarettes Cigarettes Per Day: Quit 1984; Second Hand Exposure: No; Do You Dip or Chew Tobacco: No; Hx Alcohol Use: No Hx Substance Use: No Communication Ability: Effective Automobile Brakes Bonder Required: No Beliefs That Will Affect Care: None Current Living Situation: Spouse Current Living Situation Comment: raised ranch home, stair lift , ramp in place Feels Safe at Home: Yes Assistive Devices: Cane, CPAP, Scooter/Electric Scooter and Walker Allergies Allergies Allergy/AdvReac Type Severity Reaction Status Date / Time allopurinol Allergy Intermediate Unknown Verified 10/14/23 06:46 amitriptyline Allergy Intermediate Arms, leg Verified 10/14/23 06:46 swelling codeine Allergy Intermediate Pruritus, Verified 10/14/23 06:46 rash doxepin Allergy Intermediate Arms, leg Verified 10/14/23 06:46 swelling gabapentin Allergy Intermediate Arms, leg Verified 10/14/23 06:46 swelling sitagliptin Allergy Intermediate Arms, leg Verified 10/14/23 06:46 swelling mineral oil [From Vagisil] Allergy Mild Rash Verified 10/14/23 06:46 nickel Allergy Mild Rash Verified 10/14/23 06:46 potassium chloride Allergy Mild Pruritus, Verified 10/14/23 06:46 [From Klor-Con] rash resorcinol [From Vagisil] Allergy Mild Rash Verified 10/14/23 06:46 starch [From Vagisil] Allergy Mild Rash Verified 10/14/23 06:46 Tricyclic Antidepressants Allergy Unknown leg and Verified 10/14/23 14:20 and Tricy arm swelling clindamycin Allergy Unknown Verified 10/14/23 07:14 fluticasone furoate Allergy Swelling Verified 10/14/23 06:46 [From Breo Ellipta] of Lip/Tongue/Throat vilanterol Allergy Swelling Verified 10/14/23 06:46 [From Omari Soler] of Lip/Tongue/Throat adhesive AdvReac Intermediate Rash, Verified 10/14/23 06:46 itching (tape) dexamethasone [From Decadron] AdvReac Intermediate Tachycardia Verified 10/16/23 07:30 erythromycin base AdvReac Intermediate Severe Verified 10/14/23 06:46 stomach cramps Home Meds Home Medications Medication Instructions Recorded Confirmed aspirin 81 mg tablet,delayed 81 mg PO QAM 11/09/17 12/25/23 release atorvastatin 20 mg tablet 20 mg PO QAM 11/09/17 12/25/23 metoprolol tartrate 25 mg tablet 12.5 mg PO BIDM 11/09/17 12/25/23 potassium citrate 10 mEq (1,080 See Rx Instructions .Route .COMPLEX 11/09/17 12/25/23 mg) tablet,extended release warfarin 5 mg tablet 5 mg PO 2XWK 11/09/17 12/25/23 magnesium chloride 64 mg 128 - 192 mg PO TID 01/08/19 12/25/23 (magnesium chloride) tablet,delayed release medroxyprogesterone 10 mg tablet 10 mg PO QAM 02/13/19 12/25/23 (Provera) ropinirole 0.5 mg tablet 0.5 mg PO HS PRN Restless Leg(S) 02/13/19 12/25/23 escitalopram oxalate 20 mg tablet 20 mg PO QAM 08/27/20 12/25/23 ferrous sulfate 325 mg (65 mg 325 mg PO DAILY 08/27/20 12/25/23 iron) tablet furosemide 20 mg tablet 20 mg PO QAM Edema 08/27/20 12/25/23 leucovorin calcium 5 mg tablet 5 mg PO WK 08/27/20 12/25/23 methotrexate sodium 25 mg/mL 20 mg subcut UD 08/27/20 12/25/23 injection solution verapamil 120 mg tablet,extended 120 mg PO TID 08/27/20 12/25/23 release warfarin 5 mg tablet 7.5 mg PO 5XWK 08/27/20 12/25/23 metformin 500 mg tablet,extended 2,000 mg PO HS 01/24/21 12/25/23 release 24 hr montelukast 10 mg tablet 10 mg PO HS 01/24/21 12/25/23 bucwbjhccuxa-ndrrzbvg-fsocsj 1 tab PO QAM 01/24/21 12/25/23 tablet (Multivitamin 50 Plus tablet) vitamin B complex 1 tab PO QAM 01/24/21 12/25/23 albuterol sulfate 90 mcg/actuation 2 puff inhalation Q4H PRN Wheezing 07/10/21 12/25/23 aerosol inhaler (Ventolin HFA) biotin 10 mg tablet 10 mg PO BID 07/10/21 12/25/23 cyclosporine 0.05 % eye drops in a 1 drp ophthalmic (eye) Q12H 07/10/21 12/25/23 dropperette (Restasis) vibegron 75 mg tablet (Gemtesa) 75 mg PO QAM 07/10/21 12/25/23 bupropion HCl 150 mg 24 hr tablet, 150 mg PO QAM 09/28/23 12/25/23 extended release insulin glargine 100 unit/mL (3 10 unit subcut HS 09/28/23 12/25/23 mL) subcutaneous pen (Basaglar SandyPen U-100 Insulin) empagliflozin 25 mg tablet 25 mg PO DAILY 10/14/23 12/25/23 (Jardiance) famotidine 40 mg tablet 40 mg PO HS 10/14/23 12/25/23 fluticasone propionate 230 2 inh inhalation BID 10/14/23 12/25/23 mcg-salmeterol 21 mcg/actuation HFA inhaler (Advair HFA) levalbuterol tartrate 45 1 puff inhalation Q4 PRN Wheezing 12/25/23 12/25/23 mcg/actuation aerosol inhaler semaglutide 2 mg/dose (8 mg/3 mL) 2 mg subcut WK 12/25/23 12/25/23 subcutaneous pen injector (Ozempic) sodium bicarbonate 650 mg tablet 650 mg PO AMHS 12/25/23 12/25/23 Previous Rx's Medication Instructions Recorded ondansetron 4 mg disintegrating 4 mg PO Q8H PRN nausea and 02/09/21 tablet vomiting #7 tabs oxycodone 5 mg tablet 5 mg PO Q6H PRN pain #30 tabs 10/14/23 tramadol 50 mg tablet 50 mg PO Q6H PRN pain, moderate 10/14/23 #30 tabs pantoprazole 40 mg tablet,delayed 40 mg PO QAM #30 tabs 12/31/23 release Results & Data (ED) Vital Signs Vital Signs - 24 hr 01/07/24 10:10 01/07/24 10:15 01/07/24 10:18 Temperature Temperature Source Pulse Rate 81 78 Pulse Rate [Apical] Pulse Rate from SpO2 Sensor 78 Pulse Rhythm Pulse Rhythm [Apical] Pulse Strength Pulse Strength [Apical] Respiratory Rate 28 H Respiratory Effort / Characteristics Respiratory Depth Respiratory Pattern Blood Pressure 117/69 114/65 Blood Pressure [Right Arm] Blood Pressure Mean 86 81 Blood Pressure Mean [Right Arm] Blood Pressure Position Blood Pressure Position [Right Arm] Pulse Oximetry 98 Oxygen Delivery Method Room Air Sepsis Recent Fever Within 48 Hours Sepsis New/Unexplained Change in Mental Status Sepsis Action Taken by Nursing Oxygen Flow Rate - Titration Pulse Oximetry Post Tiitration 01/07/24 10:21 01/07/24 10:30 01/07/24 10:38 Temperature 36.9 C Temperature Source Oral Pulse Rate 79 77 77 Pulse Rate [Apical] Pulse Rate from SpO2 Sensor 78 Pulse Rhythm Regular Pulse Rhythm [Apical] Pulse Strength Normal Pulse Strength [Apical] Respiratory Rate 28 H 28 H 26 H Respiratory Effort / Characteristics Spontaneous Labored Respiratory Depth Normal Respiratory Pattern Regular Blood Pressure 114/65 119/63 117/69 Blood Pressure [Right Arm] Blood Pressure Mean 81 81 85 Blood Pressure Mean [Right Arm] Blood Pressure Position Lying Blood Pressure Position [Right Arm] Pulse Oximetry 100 99 Oxygen Delivery Method Room Air Room Air Sepsis Recent Fever Within 48 Hours No Sepsis New/Unexplained Change in Mental Status N/A Sepsis Action Taken by Nursing No Action Required Oxygen Flow Rate - Titration Pulse Oximetry Post Tiitration 01/07/24 10:38 01/07/24 10:39 01/07/24 10:50 Temperature 36.9 C Temperature Source Oral Pulse Rate 77 Pulse Rate [Apical] 80 Pulse Rate from SpO2 Sensor Pulse Rhythm Pulse Rhythm [Apical] Regular Pulse Strength Pulse Strength [Apical] Normal Respiratory Rate 24 26 H Respiratory Effort / Characteristics Spontaneous Labored Respiratory Depth Normal Respiratory Pattern Regular Blood Pressure 108/63 96/68 L Blood Pressure [Right Arm] 117/69 Blood Pressure Mean 78 75 Blood Pressure Mean [Right Arm] 85 Blood Pressure Position Blood Pressure Position [Right Arm] Lying Pulse Oximetry 99 99 Oxygen Delivery Method Room Air Sepsis Recent Fever Within 48 Hours Sepsis New/Unexplained Change in Mental Status Sepsis Action Taken by Nursing Oxygen Flow Rate - Titration Pulse Oximetry Post Tiitration 01/07/24 10:54 01/07/24 11:00 01/07/24 11:06 Temperature Temperature Source Pulse Rate 77 76 Pulse Rate [Apical] Pulse Rate from SpO2 Sensor 77 76 Pulse Rhythm Pulse Rhythm [Apical] Pulse Strength Pulse Strength [Apical] Respiratory Rate 26 H Respiratory Effort / Characteristics Respiratory Depth Respiratory Pattern Blood Pressure 100/64 Blood Pressure [Right Arm] Blood Pressure Mean 78 Blood Pressure Mean [Right Arm] Blood Pressure Position Blood Pressure Position [Right Arm] Pulse Oximetry 99 99 Oxygen Delivery Method Room Air Room Air Sepsis Recent Fever Within 48 Hours Sepsis New/Unexplained Change in Mental Status Sepsis Action Taken by Nursing Oxygen Flow Rate - Titration Pulse Oximetry Post Tiitration 01/07/24 11:13 01/07/24 11:13 01/07/24 11:30 Temperature Temperature Source Pulse Rate 74 72 Pulse Rate [Apical] Pulse Rate from SpO2 Sensor 72 Pulse Rhythm Regular Pulse Rhythm [Apical] Pulse Strength Pulse Strength [Apical] Respiratory Rate 26 H 40 H Respiratory Effort / Characteristics Respiratory Depth Respiratory Pattern Blood Pressure 94/54 L Blood Pressure [Right Arm] Blood Pressure Mean 67 Blood Pressure Mean [Right Arm] Blood Pressure Position Blood Pressure Position [Right Arm] Pulse Oximetry 99 99 98 Oxygen Delivery Method Room Air Room Air Sepsis Recent Fever Within 48 Hours Sepsis New/Unexplained Change in Mental Status Sepsis Action Taken by Nursing Oxygen Flow Rate - Titration Pulse Oximetry Post Tiitration 01/07/24 11:57 Temperature Temperature Source Pulse Rate Pulse Rate [Apical] Pulse Rate from SpO2 Sensor Pulse Rhythm Pulse Rhythm [Apical] Pulse Strength Pulse Strength [Apical] Respiratory Rate Respiratory Effort / Characteristics Respiratory Depth Respiratory Pattern Blood Pressure Blood Pressure [Right Arm] Blood Pressure Mean Blood Pressure Mean [Right Arm] Blood Pressure Position Blood Pressure Position [Right Arm] Pulse Oximetry 98 Oxygen Delivery Method Room Air Sepsis Recent Fever Within 48 Hours Sepsis New/Unexplained Change in Mental Status Sepsis Action Taken by Nursing Oxygen Flow Rate - Titration 2 Pulse Oximetry Post Tiitration 99 Home Medications Current Medication List: was personally reviewed by me Laboratory Data Attestation: I reviewed the patient's lab results. 01/07/24 14:42 01/07/24 14:42 Lab Results 01/07/24 01/07/24 01/07/24 Range/Units 10:30 10:40 10:46 WBC 12.37 H (4.8-10.8) K/ul RBC 1.92 L (4.20-5.40) M/uL Hgb 5.9 L* (12.0-16.0) g/dl POC Hgb 6.5 L* (12.0-16.0) g/dl Hct 20.0 L* (37.0-47.0) % POC Hct 19 L* (37-47) % MCV 104.2 H (80.0-100.0) fL MCH 30.7 (25.0-34.0) pg MCHC 29.5 L (32.0-36.0) g/dL RDW Std Deviation 72.4 H (36.4-46.3) fL RDW Coeff of Maris 21.3 H (11.5-14.5) % Plt Count 194 (130-400) K/uL MPV 11.5 (9.4-12.4) fL Immature Gran % (Auto) 10.0 % Neut % (Auto) 68.1 % Lymph % (Auto) 10.3 % [place] % (Auto) 11.3 % Eos % (Auto) 0.1 % Baso % (Auto) 0.2 % Neut # (Auto) 8.41 H (1.40-6.50) K/uL Lymph # (Auto) 1.28 (1.20-3.40) K/uL [place] # (Auto) 1.40 H (0.11-0.59) K/uL Eos # (Auto) 0.01 (0.00-0.50) K/uL Baso # (Auto) 0.03 (0.00-0.20) K/uL Immature Gran # (Auto) 1.24 H (0.01-0.20) K/uL Absolute Nucleated RBC 0.33 H (0.00-0.12) K/uL Nucleated RBC % (auto) 2.7 % Polychromasia 2+ Anisocytosis Present Macrocytosis Present PT Cancelled INR Cancelled APTT Cancelled PTT Ratio Cancelled POC Sodium 133 L (135-144) mmol/L Sodium 134 L (136-145) mmol/L POC Potassium 5.9 H (3.3-5.0) mmol/L Potassium 6.0 H (3.5-5.1) mmol/L POC Chloride 106 (101-112) mmol/L Chloride 104 (98-107) mmol/L Carbon Dioxide 13 L (21-32) mmol/L POC Total CO2 12 L (24-31) mmol/L Anion Gap 17 H (3-11) POC Anion Gap 22.0 (16-25) mmol/L POC BUN 16 (7-18) mg/dl BUN 19 (6-23) mg/dl Creatinine 1.33 H (0.6-1.2) mg/dl POC Creatinine 1.3 (0.6-1.3) mg/dl Est Cr Clr Drug Dosing 54.4 ml/min eGFR 43.85 BUN/Creatinine Ratio 14.3 (10-20) Glucose 309 H* (70-99(Fasting)) mg/dl POC Glucose (70-99) mg/dl POC Glucose (other) 312 H (70-99) mg/dl Lactate 10.3 H* (0.4-2.0) mmol/L Calcium 8.7 (8.6-10.3) mg/dl POC Ioniz Calcium Reina 1.10 L (1.12-1.32) mmol/l Magnesium 2.2 (1.7-2.4) mg/dl Total Bilirubin 3.1 H (0.2-1.0) mg/dl AST 103 H (13-39) U/L ALT 40 (7-52) U/L Alkaline Phosphatase 88 (34-104) U/L Troponin I High Sens 27.0 H (0-14) pg/ml Total Protein 6.0 (6.0-8.3) gm/dl Albumin 3.2 L (3.4-5.0) gm/dl Globulin 2.8 (2.5-4.0) gm/dl Albumin/Globulin Ratio 1.1 (0.9-2) TSH 2.257 (0.300-4.500) uIu/ml Adenovirus (PCR) Not Detected (NotDetected) B. pertussis DNA (PCR) Not Detected (NotDetected) B.parapertussis DNA PCR Not Detected (NotDetected) C. pneumoniae DNA (PCR) Not Detected (NotDetected) Coronavirus OC43 (PCR) Not Detected (NotDetected) Coronavirus HKU1 (PCR) Not Detected (NotDetected) Coronavirus 229E (PCR) Not Detected (NotDetected) SARS-CoV-2 (PCR) Not Detected (NotDetected) Coronavirus NL63 (PCR) Not Detected (NotDetected) Human Metapneumovir PCR Not Detected (NotDetected) Influenza Type A (PCR) Not Detected (NotDetected) Influenza Type B (PCR) Not Detected (NotDetected) M. pneumoniae (PCR) Not Detected (NotDetected) Parainfluenza 1 (PCR) Not Detected (NotDetected) Parainfluenza 2 (PCR) Not Detected (NotDetected) Parainfluenza 3 (PCR) Not Detected (NotDetected) Parainfluenza 4 (PCR) Not Detected (NotDetected) RSV (PCR) Not Detected (NotDetected) Entero/Rhino (PCR) Not Detected (NotDetected) Blood Type Antibody Screen Crossmatch 01/07/24 01/07/24 01/07/24 Range/Units 11:02 12:11 12:24 WBC (4.8-10.8) K/ul RBC (4.20-5.40) M/uL Hgb (12.0-16.0) g/dl POC Hgb (12.0-16.0) g/dl Hct (37.0-47.0) % POC Hct (37-47) % MCV (80.0-100.0) fL MCH (25.0-34.0) pg MCHC (32.0-36.0) g/dL RDW Std Deviation (36.4-46.3) fL RDW Coeff of Maris (11.5-14.5) % Plt Count (130-400) K/uL MPV (9.4-12.4) fL Immature Gran % (Auto) % Neut % (Auto) % Lymph % (Auto) % [place] % (Auto) % Eos % (Auto) % Baso % (Auto) % Neut # (Auto) (1.40-6.50) K/uL Lymph # (Auto) (1.20-3.40) K/uL [place] # (Auto) (0.11-0.59) K/uL Eos # (Auto) (0.00-0.50) K/uL Baso # (Auto) (0.00-0.20) K/uL Immature Gran # (Auto) (0.01-0.20) K/uL Absolute Nucleated RBC (0.00-0.12) K/uL Nucleated RBC % (auto) % Polychromasia Anisocytosis Macrocytosis PT 12.3 H INR 1.1 APTT 24 PTT Ratio 0.9 POC Sodium (135-144) mmol/L Sodium (136-145) mmol/L POC Potassium (3.3-5.0) mmol/L Potassium (3.5-5.1) mmol/L POC Chloride (101-112) mmol/L Chloride (98-107) mmol/L Carbon Dioxide (21-32) mmol/L POC Total CO2 (24-31) mmol/L Anion Gap (3-11) POC Anion Gap (16-25) mmol/L POC BUN (7-18) mg/dl BUN (6-23) mg/dl Creatinine (0.6-1.2) mg/dl POC Creatinine (0.6-1.3) mg/dl Est Cr Clr Drug Dosing ml/min eGFR BUN/Creatinine Ratio (10-20) Glucose (70-99(Fasting)) mg/dl POC Glucose 350 H* (70-99) mg/dl POC Glucose (other) (70-99) mg/dl Lactate 13.5 H* (0.4-2.0) mmol/L Calcium (8.6-10.3) mg/dl POC Ioniz Calcium Reina (1.12-1.32) mmol/l Magnesium (1.7-2.4) mg/dl Total Bilirubin (0.2-1.0) mg/dl AST (13-39) U/L ALT (7-52) U/L Alkaline Phosphatase (34-104) U/L Troponin I High Sens 38.8 H D (0-14) pg/ml Total Protein (6.0-8.3) gm/dl Albumin (3.4-5.0) gm/dl Globulin (2.5-4.0) gm/dl Albumin/Globulin Ratio (0.9-2) TSH (0.300-4.500) uIu/ml Adenovirus (PCR) (NotDetected) B. pertussis DNA (PCR) (NotDetected) B.parapertussis DNA PCR (NotDetected) C. pneumoniae DNA (PCR) (NotDetected) Coronavirus OC43 (PCR) (NotDetected) Coronavirus HKU1 (PCR) (NotDetected) Coronavirus 229E (PCR) (NotDetected) SARS-CoV-2 (PCR) (NotDetected) Coronavirus NL63 (PCR) (NotDetected) Human Metapneumovir PCR (NotDetected) Influenza Type A (PCR) (NotDetected) Influenza Type B (PCR) (NotDetected) M. pneumoniae (PCR) (NotDetected) Parainfluenza 1 (PCR) (NotDetected) Parainfluenza 2 (PCR) (NotDetected) Parainfluenza 3 (PCR) (NotDetected) Parainfluenza 4 (PCR) (NotDetected) RSV (PCR) (NotDetected) Entero/Rhino (PCR) (NotDetected) Blood Type A Positive Antibody Screen POSITIVE A Crossmatch See Detail Administered Medications Discontinued Medications Dextrose (Dextrose 50% 50 Ml Syringe) 50 ml IV NOW ONE Stop: 01/07/24 11:24 Last Admin: 01/07/24 11:30 Dose: 50 ml Documented By: Fentanyl Citrate (Fentanyl Citrate Pf 100 Mcg/2 Ml Vial) 50 mcg IV Q15M PRN PRN Reason: Pain Stop: 01/21/24 12:20 Last Admin: 01/07/24 12:31 Dose: 50 mcg Documented By: Sodium Chloride (Nss) 1,000 mls @ 999 mls/hr IV .Q1H1M ONE Stop: 01/07/24 11:13 Last Infusion: 01/07/24 12:54 Dose: Infused Documented By: Admin: 01/07/24 10:54 Dose: 999 mls/hr Documented By: Cefepime HCl (Maxipime 2000mg) 2,000 mg in 20 mls @ 5 mls/min IV NOW STA Stop: 01/07/24 10:30 Last Admin: 01/07/24 10:53 Dose: 5 mls/min Documented By: Calcium Gluconate () 1,000 mg in 60 mls @ 240 mls/hr IV NOW STA Stop: 01/07/24 11:37 Last Infusion: 01/07/24 12:54 Dose: Infused Documented By: Admin: 01/07/24 11:30 Dose: 240 mls/hr Documented By: MSG Sodium Chloride (Nss) 500 mls @ 999 mls/hr IV .Q31M ONE Stop: 01/07/24 12:38 Last Infusion: 01/07/24 12:54 Dose: Infused Documented By: Admin: 01/07/24 12:13 Dose: 999 mls/hr Documented By: NICHELLE Promethazine HCl (Phenergan) 6.25 mg in 50.25 mls @ 201 mls/hr IV NOW STA Stop: 01/07/24 12:48 Last Infusion: 01/07/24 13:41 Dose: Infused Documented By: Admin: 01/07/24 12:40 Dose: 201 mls/hr Documented By: MSViri Sodium Chloride (Nss) 500 mls @ 999 mls/hr IV .Q31M ONE Stop: 01/07/24 13:22 Last Infusion: 01/07/24 13:45 Dose: Infused Documented By: Infusion: 01/07/24 13:42 Dose: 0 mls/hr Documented By: Admin: 01/07/24 13:12 Dose: 999 mls/hr Documented By: NICHELLE Sodium Bicarbonate 150 meq/ (Dextrose) 1,150 mls @ 100 mls/hr IV .Q34H91V JIM Stop: 02/06/24 13:14 Last Infusion: 01/07/24 15:06 Dose: 100 mls/hr Documented By: Infusion: 01/07/24 14:14 Dose: 0 mls/hr Documented By: Admin: 01/07/24 13:57 Dose: 100 mls/hr Documented By: THA Pantoprazole Sodium 80 mg/ (Dextrose) 120 mls @ 480 mls/hr IV NOW ONE Stop: 01/07/24 13:44 Last Infusion: 01/07/24 15:31 Dose: Infused Documented By: Infusion: 01/07/24 15:12 Dose: 480 mls/hr Documented By: Infusion: 01/07/24 13:59 Dose: 0 mls/hr Documented By: Admin: 01/07/24 13:58 Dose: 480 mls/hr Documented By: THA Pantoprazole Sodium 40 mg/ (Dextrose) 100 mls @ 20 mls/hr IV Q5H JIM Stop: 02/06/24 13:29 Last Admin: 01/07/24 15:15 Dose: 8 mg/hr, 20 mls/hr Documented By: THA Norepinephrine Bitartrate (Levophed/D5w) 4 mg in 250 mls @ 143.888 mls/hr IV .Q1H45M JIM; Protocol Stop: 02/06/24 14:44 Last Titration: 01/07/24 15:14 Dose: 0.3 mcg/kg/min, 143.9 mls/hr Documented By: Admin: 01/07/24 15:02 Dose: 0.2 mcg/kg/min, 95.9 mls/hr Documented By: THA Co-signed By: ELI Propofol (Diprivan) 1,000 mg in 100 mls @ 15.348 mls/hr IV .Q6H31M JIM; Protocol Stop: 01/10/24 14:44 Last Admin: 01/07/24 15:04 Dose: 40 mcg/kg/min, 30.7 mls/hr Documented By: THA Co-signed By: ELI Sodium Chloride (Nss) 1,000 mls @ 999 mls/hr IV .Q1H1M ONE Stop: 01/07/24 16:01 Last Admin: 01/07/24 15:09 Dose: 999 mls/hr Documented By: THA Albumin Human (Albumin 25%) 25 gm in 100 mls @ 50 mls/hr IV ONE ONE Stop: 01/07/24 17:07 Last Admin: 01/07/24 15:25 Dose: 50 mls/hr Documented By: THA Vasopressin 20 units/ Sodium (Chloride) 101 mls @ 12.12 mls/hr IV .Q8H20M JIM Stop: 02/06/24 15:29 Last Admin: 01/07/24 15:25 Dose: 0.04 unit/min, 12.1 mls/hr Documented By: THA Co-signed By: ELI Fentanyl Citrate (Fentanyl Citrate) 2,500 mcg in 250 mls @ 2.5 mls/hr IV .Q96H JIM; Protocol Stop: 01/21/24 15:29 Last Titration: 01/07/24 16:50 Dose: Infused Documented By: THA Co-signed By: ELI Admin: 01/07/24 15:33 Dose: 25 mcg/hr, 2.5 mls/hr Documented By: THA Co-signed By: ELI Calcium Chloride 1,000 mg/ (Dextrose) 60 mls @ 240 mls/hr IV NOW STA Stop: 01/07/24 15:50 Last Admin: 01/07/24 16:07 Dose: 240 mls/hr Documented By: THA Insulin Aspart (Insulin Aspart Per Unit Charge) 0 units SC Q6 JIM; Protocol Stop: 02/06/24 13:59 Last Admin: 01/07/24 15:27 Dose: 5 units Documented By: THA Co-signed By: GEOFFERY Insulin Glargine (Lantus Per Unit Charge) 15 units SC HS JIM; Protocol Stop: 02/06/24 14:14 Last Admin: 01/07/24 15:28 Dose: 15 units Documented By: THA Co-signed By: GEOFFREY Insulin Human Regular (Novolin-R Insulin Per Unit Charge) 10 units IV NOW STA Stop: 01/07/24 11:24 Last Admin: 01/07/24 11:29 Dose: 10 units Documented By: Co-signed By: NICHELLE Insulin Human Regular (Novolin-R Insulin Per Unit Charge) 6 units IV NOW STA Stop: 01/07/24 12:22 Last Admin: 01/07/24 12:32 Dose: 6 units Documented By: Co-signed By: NICHELLE Ioversol (Optiray 320 100ml) 94 ml IV ONCE ONE Stop: 01/07/24 11:19 Last Admin: 01/07/24 11:18 Dose: 94 ml Documented By: DAVE Miscellaneous (Rapid Sequence Induction Bag) Confirm Administered Dose 1 each N/A .STK-MED ONE Stop: 01/07/24 14:05 Last Admin: 01/07/24 15:04 Dose: Not Given Documented By: THA Morphine Sulfate (Morphine Sulfate 2 Mg/Ml Carp) 2 mg IV NOW STA Stop: 01/07/24 10:14 Last Admin: 01/07/24 10:53 Dose: 2 mg Documented By: Morphine Sulfate (Morphine Sulfate 2 Mg/Ml Carp) 2 mg IV Q30M PRN PRN Reason: Pain Stop: 01/21/24 10:12 Last Admin: 01/07/24 12:01 Dose: 2 mg Documented By: Norepinephrine Bitartrate (Norepinephrine/D5w 4 Mg/250 Ml) Confirm Administered Dose 4 mg IV .STK-MED ONE Stop: 01/07/24 14:05 Last Admin: 01/07/24 15:04 Dose: Not Given Documented By: THA Ondansetron HCl (Ondansetron Inj 2 Mg/Ml 2 Ml Vial) 4 mg IV NOW STA Stop: 01/07/24 10:14 Last Admin: 01/07/24 10:53 Dose: 4 mg Documented By: Propofol (Propofol Iv Emulsion 10 Mg/Ml 100 Ml Vial) Confirm Administered Dose 1,000 mg IV .STK-MED ONE Stop: 01/07/24 14:05 Last Admin: 01/07/24 15:04 Dose: Not Given Documented By: THA Propofol (Propofol Bolus From Bag) 20 mg IV Q5M PRN PRN Reason: Sedation Stop: 01/10/24 14:38 Last Admin: 01/07/24 15:12 Dose: 20 mg Documented By: THA Co-signed By: GEOFFREY Sodium Bicarbonate (Sodium Bicarb 8.4% Inj 50 Meq/50 Ml Syr) 50 meq IV NOW STA Stop: 01/07/24 11:25 Last Admin: 01/07/24 11:30 Dose: 50 meq Documented By: Sodium Bicarbonate (Sodium Bicarb 8.4% Inj 50 Meq/50 Ml Syr) Confirm Administered Dose 100 meq IV .STK-MED ONE Stop: 01/07/24 14:01 Last Admin: 01/07/24 15:02 Dose: Not Given Documented By: THA Sodium Bicarbonate (Sodium Bicarb 8.4% Inj 50 Meq/50 Ml Syr) 50 meq IV NOW STA Stop: 01/07/24 14:48 Last Admin: 01/07/24 14:15 Dose: 50 meq Documented By: THA Sodium Bicarbonate (Sodium Bicarb 8.4% Inj 50 Meq/50 Ml Syr) 50 meq IV NOW STA Stop: 01/07/24 14:52 Last Admin: 01/07/24 14:51 Dose: 50 meq Documented By: THA Sodium Bicarbonate (Sodium Bicarb 8.4% Inj 50 Meq/50 Ml Syr) 50 meq IV NOW STA Stop: 01/07/24 15:35 Last Admin: 01/07/24 16:07 Dose: 50 meq Documented By: CB Imaging Data Radiologist's Impression: Chest X-Ray 01/07/24 10:05 XR chest 1V portable HISTORY: 68 years-old Female weakness acute weakness COMPARISON: CTA chest 12/25/2023 TECHNIQUE: AP view the chest FINDINGS: Cardiac silhouette is enlarged. Unchanged right subclavian Siayks-z-Qana catheter. No pneumothorax, pleural effusion or overt pulmonary edema. Mild chronic interstitial coarsening. Bones appear grossly intact. Cervical spinal fusion hardware. Left upper quadrant endoscopy clips. IMPRESSION: Cardiomegaly with chronic interstitial coarsening. ACT 112: Negative or not required by law. The above report was generated using voice recognition software. It may contain grammatical, syntax or spelling errors. Electronically signed by: Pavel Morrissey M.D. 01/07/2024 11:58 AM Abdomen/Pelvis CT 01/07/24 10:[address] WITH IV CONTRAST CT DOSE: 1455.7 mGy.cm HISTORY: Acute generalized abdominal pain diffuse pain, vomit TECHNIQUE: Multiaxial CT images of the abdomen and pelvis were performed following the IV administration of 94 cc of Optiray, A dose lowering technique was utilized adhering to the principles of ALARA. COMPARISON STUDY: 12/25/2023 FINDINGS: Mild cardiomegaly. Trace pericardial effusion. Small pleural effusions with mild patchy round glass/consolidative opacities of the basal right lower lobe. No pneumoperitoneum. Spleen is enlarged, 15.6 cm. Hepatomegaly with hepatic steatosis. Cholecystectomy. Unremarkable pancreas and adrenal glands. Cysts of the right kidney measure up to approximately 5 cm. Possible 1.3 cm mural nodule involves a 4.8 cm cyst of the inferior pole right kidney. Small left renal cysts. 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 No hydronephrosis. Decompressed urinary bladder with Cueto catheter. Unchanged appearance of the uterus. Trace pelvic ascites. Atherosclerosis of the aorta. Retroaortic left renal vein. No pathologically enlarged lymph nodes. No bowel obstruction or bowel wall thickening. Colonic diverticulosis. Normal appendix. No acute fracture identified. IMPRESSION: 1. Small pleural effusions with mild right basilar opacities suggestive of pneumonia versus aspiration pneumonitis. 2. No bowel obstruction or bowel wall thickening. 3. Hepatosplenomegaly with hepatic steatosis. 4. Bilateral renal cysts with possible mural nodule involving a cyst of the inferior pole right kidney. Correlation with nonemergent follow-up renal ultrasound recommended. 5. Additional findings as above. ACT 112: Negative or not required by law. The above report was generated using voice recognition software. It may contain grammatical, syntax or spelling errors. Electronically signed by: Pavel Morrissey M.D. 01/07/2024 11:55 AM Discharge Plan Visit Data Chief Complaint: Weakness Stated Complaint: Weakness ED Provider: Rodolfo Retana Discharge Problem: Hypotension, Anemia, Lactic acidosis, Acute hyperkalemia, Acute hyperglycemia, Diffuse abdominal pain, Diaphoresis Patient Disposition: Admitted As Inpatient Condition: Serious Discharge Instructions Interventions: ED Discharge Assessment Last Done: 01/07/24 13:27 Discharge Problem: Hypotension Qualifiers: Hypotension type: unspecified hypotension type Qualified Code(s): I95.9 - Hypotension, unspecified Anemia Qualifiers: Anemia type: unspecified type Qualified Code(s): D64.9 - Anemia, unspecified
[2024-01-07] MEDS ORDERED: CEFEPIME 2,000 MG in SYRINGE 7.5 ML IV STA (10:23)
[2024-01-07 10:47] VITALS: TEMP 98.4
[2024-01-07] MEDS ORDERED: SODIUM CHLORIDE 0.9% 100 ML IV PRN (10:50)
[2024-01-07] MEDS ORDERED: SODIUM CHLORIDE 0.9% 50 ML IV PRN (10:50)
[2024-01-07] MEDS: ONDANSETRON INJ 2 MG/ML 2 ML VIAL IV STA (10:53)
[2024-01-07] MEDS: MoRPHine SULFATE 2 MG/ML CARP IV STA (10:53)
[2024-01-07] MEDS: CEFEPIME 2000MG 2,000 MG/20 ML SYR IV STA (10:53)
[2024-01-07] MEDS: SODIUM CHLORIDE 0.9% 1,000 ML IV ONE ×2 (10:54→15:09)
[2024-01-07 11:00] LABS: iSTAT Creatinine 1.3 mg/dl (0.6-1.3); iSTAT Hemoglobin 6.5 g/dl (12.0-16.0); iSTAT Ionized Calcium 1.1 mmol/l (1.12-1.32); iSTAT Potassium 5.9 mmol/L (3.3-5.0)
[2024-01-07] MEDS: OPTIRAY 320 100ml IV ONE (11:18)
[2024-01-07 11:19] LABS: Albumin Level 3.2 gm/dl (3.4-5.0); Bilirubin,Total 3.1 mg/dl (0.2-1.0); Calcium 8.7 mg/dl (8.6-10.3); Magnesium 2.2 mg/dl (1.7-2.4)
[2024-01-07] MEDS: NovoLIN-R INSULIN PER UNIT CHARGE IV STA ×2 (11:29→12:32)
[2024-01-07] MEDS: SODIUM BICARB 8.4% INJ 50 MEQ/50 ML SYR IV STA ×4 (11:30→16:07)
[2024-01-07] MEDS: DEXTROSE 50% 50 ML SYRINGE IV ONE (11:30)
[2024-01-07] MEDS: CALCIUM GLUCONATE 1,000 MG/60 ML BAG IV STA (11:30)
[2024-01-07 11:32] LABS: Hemoglobin 5.9 g/dl (12.0-16.0); Mean Corpuscular Hemoglobin 30.7 pg (25.0-34.0); Mean Corpuscular Hgb Conc 29.5 g/dL (32.0-36.0); Mean Corpuscular Volume 104.2 fL (80.0-100.0); Mean Platelet Volume 11.5 fL (9.4-12.4); Nucleated RBC # (auto) 0.33 K/uL (0.00-0.12); Nucleated RBC % (auto) 2.7 %; Platelet Count 194 K/uL (130-400); RDW Coefficient of Variation 21.3 % (11.5-14.5); RDW Standard Deviation 72.4 fL (36.4-46.3); Red Blood Count 1.92 M/uL (4.20-5.40); White Blood Count 12.37 K/ul (4.8-10.8)
[2024-01-07 11:34] LABS: Anisocytosis Present; Basophils # (auto) 0.03 K/uL (0.00-0.20); Basophils % (auto) 0.2 %; Eosinophils # (auto) 0.01 K/uL (0.00-0.50); Eosinophils % (auto) 0.1 %; Immature Granulocytes # (auto) 1.24 K/uL (0.01-0.20); Lymphocytes # (auto) 1.28 K/uL (1.20-3.40); Lymphocytes % (auto) 10.3 %; Macrocytosis Present; Monocytes % (auto) 11.3 %; Neutrophils # (auto) 8.41 K/uL (1.40-6.50); Neutrophils % (auto) 68.1 %; Polychromasia 2+
[2024-01-07 11:35] LABS: Albumin Globulin Ratio 1.1 (0.9-2); BUN Creatinine Ratio 14.3 (10-20); Creatinine Clr Calc Pharmacy 54.4 ml/min; Globulin 2.8 gm/dl (2.5-4.0); Thyroid Stimulating Hormone 2.257 uIu/ml (0.300-4.500)
[2024-01-07 11:45] LABS: Adenovirus PCR Not Detected (NotDetected); Bordetella parapertussis PCR Not Detected (NotDetected); Bordetella pertussis PCR Not Detected (NotDetected); Chlamydia pneumoniae PCR Not Detected (NotDetected); Coronavirus 229E PCR Not Detected (NotDetected); Coronavirus CoV-2 (COVID19)PCR Not Detected (NotDetected); Coronavirus HKU1 PCR Not Detected (NotDetected); Coronavirus NL63 PCR Not Detected (NotDetected); Coronavirus OC43PCR Not Detected (NotDetected); Human Metapneumovirus PCR Not Detected (NotDetected); Influenza A PCR Not Detected (NotDetected); Influenza B PCR Not Detected (NotDetected); Mycoplasma pneumoniae PCR Not Detected (NotDetected); Parainfluenza Virus 1 PCR Not Detected (NotDetected); Parainfluenza Virus 2 PCR Not Detected (NotDetected); Parainfluenza Virus 3 PCR Not Detected (NotDetected); Parainfluenza Virus 4 PCR Not Detected (NotDetected); Respiratory Syncytial VirusPCR Not Detected (NotDetected); Rhinovirus/Enterovirus PCR Not Detected (NotDetected)
[2024-01-07 11:45] LABS: INR 1.1 (0.9-1.1); Partial Thromboplastin Ratio 0.9; Partial Thromboplastin Time 24 Seconds (21-31); Prothrombin Time 12.3 Seconds (9.0-12.0)
--- NOTE | 2024-01-07 11:57 | CT Scan Report ---
ABDOMEN AND PELVIS CT WITH IV CONTRAST CT DOSE: 1455.7 mGy.cm HISTORY: Acute generalized abdominal pain diffuse pain, vomit TECHNIQUE: Multiaxial CT images of the abdomen and pelvis were performed following the IV administrat ion of 94 cc of Optiray, A dose lowering technique was utilized adhering to the principles of ALARA. COMPARISON STUDY: 12/25/2023 FINDINGS: Mild cardiomegaly. Trace pericardial effusion. Small pleural effusions with mild patchy rou nd glass/consolidative opacities of the basal right lower lobe. No pneumoperitoneum. Spleen is enlarg ed, 15.6 cm. Hepatomegaly with hepatic steatosis. Cholecystectomy. Unremarkable pancreas and adrenal glands. Cysts of the right kidney measure up to approximately 5 cm. Possible 1.3 cm mural nodule involves a 4 .8 cm cyst of the inferior pole right kidney. Small left renal cysts. 7 mm angiomyolipoma of the supe rior pole left kidney. No hydronephrosis. Decompressed urinary bladder with Cueto catheter. Unchanged appearance of the uterus. Trace pelvic ascites. Atherosclerosis of the aorta. Retroaortic left renal vein. No pathologically enlarged lymph nodes. No bowel obstruction or bowel wall thickening. Colonic diverticulosis. Normal appendix. No acute fracture identified. IMPRESSION: 1. Small pleural effusions with mild right basilar opacities suggestive of pneumonia versus aspiratio n pneumonitis. 2. No bowel obstruction or bowel wall thickening. 3. Hepatosplenomegaly with hepatic steatosis. 4. Bilateral renal cysts with possible mural nodule involving a cyst of the inferior pole right kidne y. Correlation with nonemergent follow-up renal ultrasound recommended. 5. Additional findings as above. ACT 112: Negative or not required by law. The above report was generated using voice recognition software. It may contain grammatical, syntax o r spelling errors. Electronically signed by: Pavel Morrissey M.D. 01/07/2024 11:55 AM
[2024-01-07] MEDS: MoRPHine SULFATE 2 MG/ML CARP IV PRN (12:01)
--- NOTE | 2024-01-07 12:01 | XRay Report ---
XR chest 1V portable HISTORY: 68 years-old Female weakness acute weakness COMPARISON: CTA chest 12/25/2023 TECHNIQUE: AP view the chest FINDINGS: Cardiac silhouette is enlarged. Unchanged right subclavian Wtehgm-t-Jwib catheter. No pneumothorax, p leural effusion or overt pulmonary edema. Mild chronic interstitial coarsening. Bones appear grossly intact. Cervical spinal fusion hardware. Left upper quadrant endoscopy clips. IMPRESSION: Cardiomegaly with chronic interstitial coarsening. ACT 112: Negative or not required by law. The above report was generated using voice recognition software. It may contain grammatical, syntax o r spelling errors. Electronically signed by: Pavel Morrissey M.D. 01/07/2024 11:58 AM
[2024-01-07] MEDS: SODIUM CHLORIDE 0.9% 500 ML IV ONE ×2 (12:13→13:12)
[2024-01-07] MEDS: fentaNYL citrate PF 100 MCG/2 ML VIAL IV PRN (12:31)
[2024-01-07] MEDS: PROMETHAZINE 6.25 MG/50.25 ML BAG IV STA (12:40)
[2024-01-07 12:52] LABS: Base Excess VBG -19.1 mEq/L; HCO3 VBG 9 mmol/L; Oxygen Saturation VBG < 60.0 %; PCO2 VBG 26 mmHg (38-50); PO2 VBG 29 mmHg; pH VBG 7.12 (7.36-7.41)
[2024-01-07] MEDS ORDERED: STAT IV/IM STA (12:58)
[2024-01-07 12:59] LABS: Appearance Urine Turbid (Clear); Bacteria Urine Automated None Seen (None Seen); Bilirubin Urine 1+ (Negative); Blood Urine 3+ (Negative); Cast Urine Automated >20 /lpf (0-2); Color Urine Dark Yellow; Epithelial Cell Urine Auto >20 /hpf (0-2); Glucose Urine UA 3+ (Negative); Granular Casts Urine Present /lpf (None Prsent); Hyaline Casts Urine Present /lpf (None Presnt); Ketones Urine Negative (Negative); Leukocyte Esterase Urine Trace (Negative); Nitrite Urine Negative (Negative); Protein Urine 2+ (Negative); Specific Gravity Urine 1.026 (1.000-1.030); Urobilinogen Urine Negative (Negative)
[2024-01-07] MEDS ORDERED: PANTOPRAZOLE BOLUS/DRIP IV STA (13:07)
--- OUTSIDE RECORDS SUMMARY | 2024-01-07 13:33 | External Medical Summary | Summary of Care ---
Author Name Unknown Organization [facility] Address [address] [place] [address] Phone [phone] Care Team Providers Care Skin Care Instructor Name Role Phone Lalo Quilesr Anayeli Primary Care Provider Reason for Visit * Reason Comments Medication Refill Encounter Details Date Type Department Care Team (Late st Contact Info) Description 01/04/2024 Refill Gastroenterology, [facility] [address] [place] [address] Franchesca Toussaint CRNP [address] [place] [address] Allergies Active Allergy Reactions Criticality Noted Date [...] as of this encounter (statuses as of 01/07/2024) Medications Medication Sig Dispensed Refills Start Date [...] Gel Apply a thin ribbon to toothbrush. [place] twice daily in place of normal toothpaste 100 mL 4 07/28/2022 Active rOPINIRole HCl 0.5 MG Oral Tablet (Requip)Indication s:Restless leg syndrome TAKE 1 TABLET BY MOUTH AT BEDTIME NEEDED RESTLESS LEGS 90 Tablet 3 12/06/2022 Active Nystatin-Triamcino lone 617821-6.1 UNIT/GM-% External Cream (Mycolog)Indicatio ns:Tinea cruris APPLY [...] not taking.Reported on 11/16/2023 GNP UltiCare Pen [place] 32G X 4 MM (Insulin Pen Needle) [...] Information Patient not taking.Reported on 08/22/2023 BD Haulpak Driver Tray 27G X 1/2" 1 ML [...] Release (Isoptin SR)Indications:PAT (paroxysmal atrial tachycardia) (FORMERLY [facility]) TAKE 1 TABLET BY MOUTH 3 TIMES [...] A1c goal of less than 8.0% (FORMERLY [facility]) Use as directed. 6 Each 3 12/07/2023 Active Insulin Glargine Solostar 100 UNIT/ML Subcutaneous Solution Pen-injector (Basagljewel Huertas)Indication s:Type 2 diabetes mellitus with hemoglobin A1c [...] 9 mL 3 01/06/2023 4 Discontinu ed(Refill) Famotidine 40 MG Oral Tablet (Pepcid) Take 1 Tablet by mouth at bedtime. 90 Tablet 1 06/27/2023 4 Discontinu ed(Refill) Metoprolol Tartrate 25 MG Oral Tablet (Lopressor)Indicat ions:HTN, goal below 130/80 TAKE 1/2 TABLET BY MOUTH IN THE MORNING AND TAKE 1/2 TABLET BEFORE BEDTIME 90 Tablet 1 07/18/2023 Discontinu ed(Refill) documented as of this encounter (statuses as of 01/07/2024) Active Problems Problem Noted Date Diagnosed Date [...] as of this encounter (statuses as of 01/07/2024) Resolved Problems Problem Noted Date Diagnosed Date [...] as of this encounter (statuses as of 01/07/2024) Immunizations Name Administration Dates Next Due COVID-19 mRNA, LNP-s, No Pre serve, 2-Dose Series ([employer]) 12/18/2020,06/20/2020,05/30/2020 COVID-19, LNP-s, No Preserve , Marshal-sucrose, Ages 12+ (Pfizer) 06/25/2021 Covid-19, Mrna, Lnp-s, Pf, B ivalent, 30 Mcg, IM, 12 yrs and above ([employer]) 12/31/2021 H1N1 2009 Influenza, IM 02/24/2009 Hepatitis [...] encounter Miscellaneous Notes * Telephone Encounter - Leah Henley - 01/07/2024 10:26 AM EDT Received message from [facility] regarding patient needing an appointment. Patient was notified. Successfully contacted patient and provided [facility] message. * Telephone Encounter - Junaid Louie [facility] - 01/05/2024 4:29 PM EDTSigned Prescriptions: Disp Refills Famotidine 40 MG Oral Tablet (Pepcid) 90 Tab*0 Sig: Take 1 Tablet by mouth at bedtime. Authorizing Provider: FRANCHESCA TOUSSAINT Ordering User: JUNAID LOUIE * Telephone Encounter - Junaid Louie [facility] - 01/05/2024 4:25 PM EDT Please contact patient so that an appointment can be scheduled with her GASTROENTEROLOGY provider. Refill authorized to hold patient over in the mean time. Patient was to RTC in 3 months (around 12/21/23). Last Visit: 09/20/2023 (in office), Visit date not found (telemedicine) Next Visit: Visit date not found Thank you, Junaid Louie, PharmD Clinical Pharmacist [facility] [phone] 01/05/2024, 4:27 PM documented in this encounter Plan of Treatment Upcoming Encounters Date Type Department Care Team (Latest Contact Info) Description 01/10/2024 1:00 PM EST Office Visit [facility] [address] [facility] [place] [address] Landon Quiles DO [address] [place] [address] 01/11/2024 1:00 PM EST Immunization/Injection Hematology/Oncology Treatment, [place] [address] [place] [phone] Sarai, Chair 2 Hem Onc [place] [address] [place] [address] 01/16/2024 1:30 PM EST Anticoagulation Pharmacy, [facility] [place] [address] [place] [address] Pharmacist2, [facility] [address] [place] [address] 01/19/2024 7:00 AM EST Office Visit [facility] [address] [facility] [place] [address] Hakeem Samson CRNP [address] [facility] [address] 02/22/2024 1:30 PM EST Office Visit Pharmacy, [facility] [address] [place] [address] Pharmacist2, [facility] [address] [place] [address] 02/22/2024 2:00 PM EST Pharmacy Pharmacy, [facility] [address] [place] [address] Pharmacist2, [facility] [address] [place] [place] [address] 02/22/2024 2:30 PM EST Anticoagulation Pharmacy, [facility] [address] [place], [place] [address] Pharmacist2, [facility] [address] [place] [address] 05/11/2024 1:40 PM EST Office Visit [facility] [address] [facility] [place] [address] Jackeline Diaz CRNP [address] [facility] [address] 05/29/2024 11:30 AM EDT Office Visit Hematology/Oncology [facility] [address] [place] [phone] Abdirizak Shoemaker MD [address] [place] [address] 09/17/2024 11:40 AM EDT Office Visit [facility] [address] [place] [phone] Bernadette Zuniga DO [address] [place] [address] 11/20/2024 1:45 PM EDT Office Visit Urology, [facility] [address] [place] [address] Faustino Cárdenas MD [address] [place] [address] Scheduled Procedures Name Priority Associated Diagnoses Date/Ti [...] this encounter Medical Devices Implanted Type Area Mattress Packer Device Identifier Shelf Expiration Date Model / Serial / Lot Graft Flex Hd 6 X 16cm [id number] - [id number] Implanted:Qty : 1 on 09/22/2010 [place] [facility] [place] - Human Left: Breast [employer] FND 04/28/2013 [id number] / [id number] / Graft Flex Hd 6 X 16cm [id number] - [id number] Implanted:Qty : 1 on 09/22/2010 at [place] [facility] [place] Tissue - Human Right: Chest [employer] FND 04/28/2013 [id number] / [id number] / Mediport Pwr Isp 8fr [id number] - [id number] Implanted:Qty : 1 on 09/22/2010 [place] [facility] [place] Right: Chest CR BARD : [employer] 07/13/2012 [id number] / / [id number] Breast Implant 354-2515 Saline - [id number] Implanted:Qty : 1 on 09/22/2010 at [place] [facility] [place] Right: Breast [employer]ENT[employer] EVA 12/13/2013 [id number] / [id number] Breast Implant 354-2515 Saline - [id number] Implanted:Qty : 1 on 09/22/2010 at [place] [facility] [place] Left: Breast [employer] EVA 07/13/2014 [id number] / [id number] Lens Intraoc 16.5 - [id number] - [id number] Implanted:Qty : 1 on 02/20/2016 by Lincoln Garces MD at OR [facility] Left: Eye [employer]OMB 08/04/2020 [id number] / [id number] Lens Intraoc 15.5 - [id number] - [id number] Implanted:Qty : 1 on 03/09/2016 by Lincoln Garces MD at OR [facility] Right: Eye [employer] LOMB 12/04/2017 [id number] / [id number] / documented as of this encounter Advance [...] and were consensually agreed upon. Care Teams Skin Care Instructor Relationship Specialty Start Date End Date Landon Quiles DO [address] [place] [address] PCP - General Family Medicine 03/19/19 documented as of this encounter
--- NOTE | 2024-01-07 13:49 | History & Physical Report ---
Date of Service January 07, 2024 Assessment & Plan (1) Hypotension: (2) Acute blood loss anemia: (3) Lactic acidosis: (4) Hyperglycemia: (5) Elevated troponin I level: Plan: 68-year-old female with history of CHF diastolic type, diabetes type 2, hypertension, asthma, obstructive sleep apnea on CPAP, PE on Coumadin, GERD, gastroparesis, left breast cancer status postsurgery, inflammatory polyarthritis on methotrexate, fibromyalgia, presenting with abdominal pain and weakness x 2 days. Hypotension, likely secondary to hypovolemia Acute blood loss anemia, possible recurrence of upper GI bleed Poor oral intake Admitted last week for upper GI bleed Status post EGD December 26, 2023 showing gastric polyp, status post cauterization and clipping Patient has not restarted aspirin or Coumadin at home Hemoglobin last week 8.1, currently 6.5 CT abd/pelvis: 1. Small pleural effusions with mild right basilar opacities suggestive of pneumonia versus aspiration pneumonitis. 2. No bowel obstruction or bowel wall thickening. 3. Hepatosplenomegaly with hepatic steatosis. 4. Bilateral renal cysts with possible mural nodule involving a cyst of the inferior pole right kidney. Correlation with nonemergent follow-up renal ul trasound recommended. 5. Additional findings as above. Received total of 2 L of IV NSS at the ER, subsequent Blood pressure systolic 100s 2 units packed RBCs ordered stat Protonix drip N.p.o. GI consult Lactic acidosis Likely secondary to hypotension Initial lactic acid 10.3, after 2 hours 13.5 Total of 2 L IV fluid bolus already given Repeat lactic acid at 4 PM Possible underlying infection? Chest x-ray no pneumonia UA does not indicate UTI, urine culture pending Blood cultures pending IV cefepime every 8 hours ordered Hyperglycemia Diabetes type 2 Hold usual metformin, glargine, Jardiance, Ozempic Will order insulin sliding scale and pharmacy glycemic consult Mild troponin elevation Likely demand ischemia from hypotension, severe anemia Denies chest pain, cardiac symptoms Troponin 27, 38 Repeat troponin at 4 PM EKG pending Other chronic medical conditions: Congestive heart failure diastolic type-currently on the dry side Monitor volume status Hypertension-currently hypotensive, hold metoprolol, verapamil Asthma, obstructive sleep apnea on CPAP-not in exacerbation PE on Coumadin-INR 1.2, has not resume Coumadin at home, hold Coumadin History of GERD, gastroparesis-currently on Protonix drip Inflammatory polyarthritis, fibromyalgia-on weekly methotrexate History of left breast cancer status post surgery DVT prophylaxis SCDs for now CODE STATUS Full code, confirmed with patient Disposition Will need PT and OT evaluation when hemodynamically stable History of Present Illness Chief Complaint: Abdominal pain, weakness x 2 days Primary Care Provider: Landon Quiles DO 68-year-old female with history of CHF diastolic type, diabetes type 2, hypertension, asthma, obstructive sleep apnea on CPAP, PE on Coumadin, GERD, gastroparesis, left breast cancer status postsurgery, inflammatory polyarthritis on methotrexate, fibromyalgia, presenting with abdominal pain and weakness x 2 days. Patient was recently admitted and discharged to [facility] a week ago for GI bleed requiring multiple units of packed red blood cells transfusion. She underwent an EGD which showed gastric polyp, status post cauterization and clipping. She was discharged to home and was advised to hold her aspirin and Coumadin until follow-up. At home, patient was doing well, denies hematochezia or melena. However 2 days ago, patient started to have diffuse abdominal pain, sharp, pressure, associated with nausea, and progressive weakness. No fever or chills, has mild coughBut no shortness of breath. Today, patient was found to be hypotensive on the field, systolic 80s. At the ER, patient received with a blood pressure of 117/69 heart rate 81, respiratory rate 28, satting 90% on room air, temperature 36.9. Hemoglobin 6.5, bicarb 12, potassium 5.9, blood glucose 350, troponin 27. EKG: Pending CT abdomen pelvis: 1. Small pleural effusions with mild right basilar opacities suggestive of pneumonia versus aspiration pneumonitis. 2. No bowel obstruction or bowel wall thickening. 3. Hepatosplenomegaly with hepatic steatosis. 4. Bilateral renal cysts with possible mural nodule involving a cyst of the inferior pole right kidney. Correlation with nonemergent follow-up renal ultrasound recommended. 5. Additional findings as above. Urinalysis: No bacteria seen, trace leukocyte Estrace, negative for nitrite Patient was given 2 L of IV NSS bolus. 2 units of packed RBCs ordered for transfusion. Sodium bicarb 50 mEq IV push given. 6 units of insulin NovoLog given. IV cefepime ordered as well On my exam, patient seen resting in bed, awake and alert but very weak, somewhat drowsy. She is answering questions appropriately. Reports persistent generalized abdominal pain, described as sharp, and pressure- like associate with nausea. Positive flatus No active shortness of breath, chest pain, palpitations. Allergies Allergy/AdvReac Type Severity Reaction Status Date / Time allopurinol Allergy Intermediate Unknown Verified 10/14/23 06:46 amitriptyline Allergy Intermediate Arms, leg Verified 10/14/23 06:46 swelling codeine Allergy Intermediate Pruritus, Verified 10/14/23 06:46 rash doxepin Allergy Intermediate Arms, leg Verified 10/14/23 06:46 swelling gabapentin Allergy Intermediate Arms, leg Verified 10/14/23 06:46 swelling sitagliptin Allergy Intermediate Arms, leg Verified 10/14/23 06:46 swelling mineral oil [From Vagisil] Allergy Mild Rash Verified 10/14/23 06:46 nickel Allergy Mild Rash Verified 10/14/23 06:46 potassium chloride Allergy Mild Pruritus, Verified 10/14/23 06:46 [From Klor-Con] rash resorcinol [From Vagisil] Allergy Mild Rash Verified 10/14/23 06:46 starch [From Vagisil] Allergy Mild Rash Verified 10/14/23 06:46 Tricyclic Antidepressants Allergy Unknown leg and Verified 10/14/23 14:20 and Tricy arm swelling clindamycin Allergy Unknown Verified 10/14/23 07:14 fluticasone furoate Allergy Swelling Verified 10/14/23 06:46 [From Breo Ellipta] of Lip/Tongue/Throat vilanterol Allergy Swelling Verified 10/14/23 06:46 [From Breo Ellipta] of Lip/Tongue/Throat adhesive AdvReac Intermediate Rash, Verified 10/14/23 06:46 itching (tape) dexamethasone [From Decadron] AdvReac Intermediate Tachycardia Verified 10/16/23 07:30 erythromycin base AdvReac Intermediate Severe Verified 10/14/23 06:46 stomach cramps Home Medications Medication Instructions Recorded Confirmed Type aspirin 81 mg tablet,delayed 81 mg PO QAM 11/09/17 12/25/23 History release atorvastatin 20 mg tablet 20 mg PO QAM 11/09/17 12/25/23 History metoprolol tartrate 25 mg tablet 12.5 mg PO BIDM 11/09/17 12/25/23 History potassium citrate 10 mEq (1,080 See Rx Instructions .Route .COMPLEX 11/09/17 12/25/23 History mg) tablet,extended release warfarin 5 mg tablet 5 mg PO 2XWK 11/09/17 12/25/23 History magnesium chloride 64 mg 128 - 192 mg PO TID 01/08/19 12/25/23 History (magnesium chloride) tablet,delayed release medroxyprogesterone 10 mg tablet 10 mg PO QAM 02/13/19 12/25/23 History (Provera) ropinirole 0.5 mg tablet 0.5 mg PO HS PRN Restless Leg(S) 02/13/19 12/25/23 History escitalopram oxalate 20 mg tablet 20 mg PO QAM 08/27/20 12/25/23 History ferrous sulfate 325 mg (65 mg 325 mg PO DAILY 08/27/20 12/25/23 History iron) tablet furosemide 20 mg tablet 20 mg PO QAM Edema 08/27/20 12/25/23 History leucovorin calcium 5 mg tablet 5 mg PO WK 08/27/20 12/25/23 History methotrexate sodium 25 mg/mL 20 mg subcut UD 08/27/20 12/25/23 History injection solution verapamil 120 mg tablet,extended 120 mg PO TID 08/27/20 12/25/23 History release warfarin 5 mg tablet 7.5 mg PO 5XWK 08/27/20 12/25/23 History metformin 500 mg tablet,extended 2,000 mg PO HS 01/24/21 12/25/23 History release 24 hr montelukast 10 mg tablet 10 mg PO HS 01/24/21 12/25/23 History otwrookvadxz-qkxwoufj-zkcbxb 1 tab PO QAM 01/24/21 12/25/23 History tablet (Multivitamin 50 Plus tablet) vitamin B complex 1 tab PO QAM 01/24/21 12/25/23 History ondansetron 4 mg disintegrating 4 mg PO Q8H PRN nausea and 02/09/21 12/25/23 Rx tablet vomiting #7 tabs albuterol sulfate 90 mcg/actuation 2 puff inhalation Q4H PRN Wheezing 07/10/21 12/25/23 History aerosol inhaler (Ventolin HFA) biotin 10 mg tablet 10 mg PO BID 07/10/21 12/25/23 History cyclosporine 0.05 % eye drops in a 1 drp ophthalmic (eye) Q12H 07/10/21 12/25/23 History dropperette (Restasis) vibegron 75 mg tablet (Gemtesa) 75 mg PO QAM 07/10/21 12/25/23 History bupropion HCl 150 mg 24 hr tablet, 150 mg PO QAM 09/28/23 12/25/23 History extended release insulin glargine 100 unit/mL (3 10 unit subcut HS 09/28/23 12/25/23 History mL) subcutaneous pen (Basaglar KwikPen U-100 Insulin) empagliflozin 25 mg tablet 25 mg PO DAILY 10/14/23 12/25/23 History (Jardiance) famotidine 40 mg tablet 40 mg PO HS 10/14/23 12/25/23 History fluticasone propionate 230 2 inh inhalation BID 10/14/23 12/25/23 History mcg-salmeterol 21 mcg/actuation HFA inhaler (Advair HFA) oxycodone 5 mg tablet 5 mg PO Q6H PRN pain #30 tabs 10/14/23 12/25/23 Rx tramadol 50 mg tablet 50 mg PO Q6H PRN pain, moderate 10/14/23 12/25/23 Rx #30 tabs levalbuterol tartrate 45 1 puff inhalation Q4 PRN Wheezing 12/25/23 12/25/23 History mcg/actuation aerosol inhaler semaglutide 2 mg/dose (8 mg/3 mL) 2 mg subcut WK 12/25/23 12/25/23 History subcutaneous pen injector (Ozempic) sodium bicarbonate 650 mg tablet 650 mg PO AMHS 12/25/23 12/25/23 History pantoprazole 40 mg tablet,delayed 40 mg PO QAM #30 tabs 12/31/23 Rx release Past Med/Surg History Problem List (Updated 01/07/24 @ 13:39 by Raúl Burroughs MD) Elevated troponin I level Hyperglycemia Lactic acidosis Hypotension Hyperplastic polyp of stomach Ileus Gastrointestinal hemorrhage on warfarin therapy Acute blood loss anemia Gastric polyp Supratherapeutic INR (Acute) Anemia (Acute) Leukocytosis (Acute) Hematemesis (Acute) Acute upper gastrointestinal bleeding (Acute) Sinus tachycardia PAT (paroxysmal atrial tachycardia) Myelopathy 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 follows with Dr. Shaw Medical History Seronegative polyarthritis Rheumatoid arthritis with inflammatory polyarthropathy Osteoarthritis Overactive bladder GERD (gastroesophageal reflux disease) Diabetes mellitus, type 2 Anemia Anxiety and depression Post traumatic stress disorder Peripheral neuropathy Pulmonary embolism Several years ago Hx of deep venous thrombosis Age mid-30s after fall/trauma Atrial tachycardia Follows with Dr. Shaw Sleep apnea CPAP (compliant) Asthma Uterine hyperplasia Currently on hormone therapy Morbid obesity with BMI of 40.0-44.9, adult Limb alert care status LUE restriction Gastroparesis Raynauds phenomenon History of kidney stones Degenerative disc disease Chronic kidney disease (CKD) Stage 3 Follows with Claudia Moon nephrology Neuropathy Severe legs/feet Uses assistive devices including mobilized wheelchair Fibromyalgia Hyperlipidemia Hypertension Breast cancer Invasive adenocarcinoma Dx 2010 - B/L mastectomy + chemo + radiation Restless legs syndrome Surgical History History of tooth extraction History of cataract surgery R/L Nausea and vomiting after administration of anesthetic agent History of cystoscopy Cysto, laser litho (02/19/2021): LMA#4 (iGel) at [facility] History of lithotripsy History of colonoscopy 05/20/23, MAC at [facility] History of esophagogastroduodenoscopy (EGD) History of gynecological procedure D&C, Mirena insertion (11/24/18): Grade 2 view, Glidescope#3, ETT 7.0, atra umatic elective glidescope intubation x2, 2nd attempt successful History of breast biopsy History of D&C H/O bilateral salpingo-oophorectomy H/O breast reconstruction Implants failed due to infections > subsequent removal History of carpal tunnel release R/L History of exploratory laparotomy Hx of foot surgery left History of herniorrhaphy Umbilical with mesh History of cholecystectomy History of vascular access device Mediport power port (Right chest) History of bilateral mastectomy LUE restriction Family History Brother Family history of diabetes mellitus Father Family history of diabetes mellitus Mother Family history of diabetes mellitus Other No family history of adverse response to anesthesia Social History Smoking Status: Former smoker Tobacco Type: Cigarettes Cigarettes Per Day: Quit 1984; Second Hand Exposure: Yes (hx); Do You Dip or Chew Tobacco: No; Hx Alcohol Use: No Hx Substance Use: No Preferred Language: Swedish Communication Ability: Effective Nurse Specialist Required: No Beliefs That Will Affect Care: None Current Living Situation: Spouse Current Living Situation Comment: raised ranch home, stair lift , ramp in place Feels Safe at Home: Yes Assistive Devices: Cane, CPAP, Scooter/Electric Scooter and Walker Review of Systems Review of Systems: all noted and negative except for above Physical Exam Physical Exam: General- oriented x 3, not in distress, speaks in sentences with no effort or accessory muscle use Very weak, somewhat drowsy Head- atraumatic Eyes- Pale conjunctivae,PERRL, EOMI, anicteric ENT- oropharynx clear Neck- supple, no JVD, no adenopathy, no thyromegaly; carotids +2/2, no bruits appreciated Lungs- clear to auscultation bilaterally, no rales/wheezes Heart- normal rate, regular rhythm; no murmur, no gallop, no rub appreciated Abdomen- Hypoactive bowel sounds, nondistended, soft, Mild tenderness on all quadrants Extremities- no pretibial edema, no calf tenderness; peripheral pulses intact Neuro- alert, oriented x 3; CN 2-12 grossly intact; motor 5/5 bilaterally;sensation 100% on all extremities; no other gross focal neurologic deficits Skin- Positive pallor,warm & dry Results & Data Results & Data Vital Signs (Past 12 Hours) Vital Signs Temp Pulse Pulse Resp BP BP Pulse Ox 01/07/24 11:57 98 01/07/24 11:30 72 40 H 94/54 L 98 01/07/24 11:13 74 26 H 99 01/07/24 11:13 99 01/07/24 11:06 76 99 01/07/24 11:00 100/64 01/07/24 10:54 77 26 H 99 01/07/24 10:50 96/68 L 01/07/24 10:39 77 26 H 108/63 99 01/07/24 10:38 36.9 C 80 24 117/69 99 01/07/24 10:38 36.9 C 77 26 H 117/69 99 01/07/24 10:30 77 28 H 119/63 01/07/24 10:21 79 28 H 114/65 100 01/07/24 10:18 78 28 H 114/65 98 01/07/24 10:15 81 01/07/24 10:10 117/69 O2 Del Method 01/07/24 11:57 Room Air 01/07/24 11:30 01/07/24 11:13 Room Air 01/07/24 11:13 Room Air 01/07/24 11:06 Room Air 01/07/24 11:00 01/07/24 10:54 Room Air 01/07/24 10:50 01/07/24 10:39 01/07/24 10:38 Room Air 01/07/24 10:38 Room Air 01/07/24 10:30 01/07/24 10:21 Room Air 01/07/24 10:18 Room Air 01/07/24 10:15 01/07/24 10:10 Code Status & VTE Plan VTE Prophylaxis Plan VTE Prophylaxis will be ordered: Yes
[2024-01-07] MEDS: SODIUM BICARBONATE 8.4% 150 MEQ in DEXTROSE 5% 1,000 ML IV SCH (13:57)
[2024-01-07] MEDS: PANTOprazole 80 MG in DEXTROSE 5% 100 ML IV ONE (13:58)
[2024-01-07] MEDS ORDERED: INSULIN ASPART PER UNIT CHARGE SC SCH (14:00)
[2024-01-07] MEDS ORDERED: PHARMACY GLYCEMIC MGMT CONSULT PRN (14:02)
[2024-01-07] MEDS ORDERED: CARBOHYDRATES FOR HYPOGLYCEMIA PO PRN (14:15)
[2024-01-07] MEDS ORDERED: GLUCAGON FOR INJ 1 MG VIAL SQ PRN (14:15)
[2024-01-07] MEDS ORDERED: GLUCOSE 10 TAB/TUBE PO PRN (14:15)
[2024-01-07] MEDS ORDERED: DEXTROSE 50% 50 ML SYRINGE IV PRN (14:15)
[2024-01-07] MEDS ORDERED: GLUCOSE 40% GEL 15 GM TUBE PO PRN (14:15)
--- NOTE | 2024-01-07 14:19 | Pharmacy Report ---
Pharmacy Glycemic Short Note 2 - Date of Service January 07, 2024 - Glycemic Short BSG Results (Last 24 hours): 01/07/24 01/07/24 01/07/24 10:40 10:46 12:11 Glucose 309 H* POC Glucose 350 H* POC Glucose (other) 312 H 01/07/24 13:49 Glucose POC Glucose 261 H POC Glucose (other) OUTPATIENT ANTIDIABETIC REGIMEN: * Basaglar 10 units SQ HS * Jardiance 10mg daily * metformin 2000mg QAM * Ozempic 1mg Qwk * HbA1c 6.7% (12/26/23) ASSESSMENT: * 68 yo F PMH CHF, diabetes type 2, HTN, asthma, LORE on CPAP, PE on Coumadin, GERD, gastroparesis, left breast cancer status postsurgery, inflammatory polyarthritis on methotrexate, fibromyalgia, presenting with abdominal pain and weakness x 2 days. Hypotension, likely secondary to hypovolemia, acute blood loss anemia, possible recurrence of upper GI bleed, poor oral intake, NPO in ICU. * Patient hyperglycemic on arrival, given total of 16 units IV insulin, BSG 350 --> 261mg/dl. * Recent admission in October, will begin with similar basal bolus insulin dosing and titrate to goal blood sugar. PLAN FOR INPATIENT GLYCEMIC CONTROL: * Hold outpatient diabetes medications * Basal insulin * Lantus 15 units SC x 1 dose now, then start HS tomorrow evening * Bolus insulin * NovoLog per scale ACHS or Q6hrs while NPO * Goal Range: Low 110 mg/dL - High 140 mg/dL * Correction Factor: 20 mg/dL/unit * Nutritional / Prandial insulin per carb ratio of 1 unit per 4 grams CHO consumed
[2024-01-07] MEDS ORDERED: STAT IV Infusion **Titration per Protocol STA ×4 (14:38→15:21)
--- NOTE | 2024-01-07 14:43 | Gastrointestinal Consultation ---
Date of Consultation January 07, 2024 Assessment & Plan (1) Acute blood loss anemia: Patient was found on 12/25 to have a bleeding (what turned out to be hyperplastic) polyp of the gastric body. Although the report says the polyp was completely removed - looking at the pictures with the clips there may still be some polyp material present. This is a benign polyp but if located over a vessel is still a likely source of bleeding. With 3 hemostatic clips placed across the polyp base - endoscopic therapeutics would likely be more limited at this point. She needs transfusion and supportive resuscitation and agree with transfer especially if there is a delay in getting the blood here. Surgical consult. IR consult. EGD can be entertained but she has had recent endoscopic therapeutics applied and unfortunately it seems these only worked temporarily. Therefore, would prefer resuscitation and if it would be helpful to surgery to have EGD in OR or just before possible surgery - would be happy to assist. Still the overwhelming priority would be her transfusion and resuscitation. History of Present Illness Reason for Consultation: Acute anemia - hypotensive. Requesting Physician: Dr. Burroughs Attending Physician: Raúl Burroughs MD History of Present Illness 68 yo WF who I saw in the ICU and she was intubated so history taken from staff and medical records. She had a recent admission for symptomatic anemia and hematemesis and had an EGD on 12/26/2023. That report indicated a large, bleeding, gastric polyp of the gastric body was found. The polyp was injected with epinephrine, a hot snare was used and 3 hemostatic clips were applied to prevent future bleeding. She apparently did well and was discharged on 12/31/2023. She returned to the hospital today apparently with a 2 day history of abdominal pain and weakness. She was found to be severely anemic (discharge Hgb 8.1 on 12/30 and today Hgb 5.9) and hypotensive. She was given IV fluids and pressor support and was intubated. Although transfusion of PRBCs was ordered she apparently has antibodies and there is a delay in getting the blood so the medicine/ICU team is working on transferring her to a facility where she can more easily have access to blood. Allergies Allergy/AdvReac Type Severity Reaction Status Date / Time allopurinol Allergy Intermediate Unknown Verified 10/14/23 06:46 amitriptyline Allergy Intermediate Arms, leg Verified 10/14/23 06:46 swelling codeine Allergy Intermediate Pruritus, Verified 10/14/23 06:46 rash doxepin Allergy Intermediate Arms, leg Verified 10/14/23 06:46 swelling gabapentin Allergy Intermediate Arms, leg Verified 10/14/23 06:46 swelling sitagliptin Allergy Intermediate Arms, leg Verified 10/14/23 06:46 swelling mineral oil [From Vagisil] Allergy Mild Rash Verified 10/14/23 06:46 nickel Allergy Mild Rash Verified 10/14/23 06:46 potassium chloride Allergy Mild Pruritus, Verified 10/14/23 06:46 [From Klor-Con] rash resorcinol [From Vagisil] Allergy Mild Rash Verified 10/14/23 06:46 starch [From Vagisil] Allergy Mild Rash Verified 10/14/23 06:46 Tricyclic Antidepressants Allergy Unknown leg and Verified 10/14/23 14:20 and Tricy arm swelling clindamycin Allergy Unknown Verified 10/14/23 07:14 fluticasone furoate Allergy Swelling Verified 10/14/23 06:46 [From Breo Ellipta] of Lip/Tongue/Throat vilanterol Allergy Swelling Verified 10/14/23 06:46 [From Breo Ellipta] of Lip/Tongue/Throat adhesive AdvReac Intermediate Rash, Verified 10/14/23 06:46 itching (tape) dexamethasone [From Decadron] AdvReac Intermediate Tachycardia Verified 10/16/23 07:30 erythromycin base AdvReac Intermediate Severe Verified 10/14/23 06:46 stomach cramps Home Medications Medication Instructions Recorded Confirmed Type aspirin 81 mg tablet,delayed 81 mg PO QAM 11/09/17 12/25/23 History release atorvastatin 20 mg tablet 20 mg PO QAM 11/09/17 12/25/23 History metoprolol tartrate 25 mg tablet 12.5 mg PO BIDM 11/09/17 12/25/23 History potassium citrate 10 mEq (1,080 See Rx Instructions .Route .COMPLEX 11/09/17 12/25/23 History mg) tablet,extended release warfarin 5 mg tablet 5 mg PO 2XWK 11/09/17 12/25/23 History magnesium chloride 64 mg 128 - 192 mg PO TID 01/08/19 12/25/23 History (magnesium chloride) tablet,delayed release medroxyprogesterone 10 mg tablet 10 mg PO QAM 02/13/19 12/25/23 History (Provera) ropinirole 0.5 mg tablet 0.5 mg PO HS PRN Restless Leg(S) 02/13/19 12/25/23 History escitalopram oxalate 20 mg tablet 20 mg PO QAM 08/27/20 12/25/23 History ferrous sulfate 325 mg (65 mg 325 mg PO DAILY 08/27/20 12/25/23 History iron) tablet furosemide 20 mg tablet 20 mg PO QAM Edema 08/27/20 12/25/23 History leucovorin calcium 5 mg tablet 5 mg PO WK 08/27/20 12/25/23 History methotrexate sodium 25 mg/mL 20 mg subcut UD 08/27/20 12/25/23 History injection solution verapamil 120 mg tablet,extended 120 mg PO TID 08/27/20 12/25/23 History release warfarin 5 mg tablet 7.5 mg PO 5XWK 08/27/20 12/25/23 History metformin 500 mg tablet,extended 2,000 mg PO HS 01/24/21 12/25/23 History release 24 hr montelukast 10 mg tablet 10 mg PO HS 01/24/21 12/25/23 History dyovztlyrbjc-jddesxll-dbjmbo 1 tab PO QAM 01/24/21 12/25/23 History tablet (Multivitamin 50 Plus tablet) vitamin B complex 1 tab PO QAM 01/24/21 12/25/23 History ondansetron 4 mg disintegrating 4 mg PO Q8H PRN nausea and 02/09/21 12/25/23 Rx tablet vomiting #7 tabs albuterol sulfate 90 mcg/actuation 2 puff inhalation Q4H PRN Wheezing 07/10/21 12/25/23 History aerosol inhaler (Ventolin HFA) biotin 10 mg tablet 10 mg PO BID 07/10/21 12/25/23 History cyclosporine 0.05 % eye drops in a 1 drp ophthalmic (eye) Q12H 07/10/21 12/25/23 History dropperette (Restasis) vibegron 75 mg tablet (Gemtesa) 75 mg PO QAM 07/10/21 12/25/23 History bupropion HCl 150 mg 24 hr tablet, 150 mg PO QAM 09/28/23 12/25/23 History extended release insulin glargine 100 unit/mL (3 10 unit subcut HS 09/28/23 12/25/23 History mL) subcutaneous pen (Basaglar KwikPen U-100 Insulin) empagliflozin 25 mg tablet 25 mg PO DAILY 10/14/23 12/25/23 History (Jardiance) famotidine 40 mg tablet 40 mg PO HS 10/14/23 12/25/23 History fluticasone propionate 230 2 inh inhalation BID 10/14/23 12/25/23 History mcg-salmeterol 21 mcg/actuation HFA inhaler (Advair HFA) oxycodone 5 mg tablet 5 mg PO Q6H PRN pain #30 tabs 10/14/23 12/25/23 Rx tramadol 50 mg tablet 50 mg PO Q6H PRN pain, moderate 10/14/23 12/25/23 Rx #30 tabs levalbuterol tartrate 45 1 puff inhalation Q4 PRN Wheezing 12/25/23 12/25/23 History mcg/actuation aerosol inhaler semaglutide 2 mg/dose (8 mg/3 mL) 2 mg subcut WK 12/25/23 12/25/23 History subcutaneous pen injector (Ozempic) sodium bicarbonate 650 mg tablet 650 mg PO AMHS 12/25/23 12/25/23 History pantoprazole 40 mg tablet,delayed 40 mg PO QAM #30 tabs 12/31/23 Rx release Patient History Medical History Seronegative polyarthritis Rheumatoid arthritis with inflammatory polyarthropathy Osteoarthritis Overactive bladder GERD (gastroesophageal reflux disease) Diabetes mellitus, type 2 Anemia Anxiety and depression Post traumatic stress disorder Peripheral neuropathy Pulmonary embolism Several years ago Hx of deep venous thrombosis Age mid-30s after fall/trauma Atrial tachycardia Follows with Dr. Shaw Sleep apnea CPAP (compliant) Asthma Uterine hyperplasia Currently on hormone therapy Morbid obesity with BMI of 40.0-44.9, adult Limb alert care status LUE restriction Gastroparesis Raynauds phenomenon History of kidney stones Degenerative disc disease Chronic kidney disease (CKD) Stage 3 Follows with [facility] Moon nephrology Neuropathy Severe legs/feet Uses assistive devices including mobilized wheelchair Fibromyalgia Hyperlipidemia Hypertension Breast cancer Invasive adenocarcinoma Dx 2010 - B/L mastectomy + chemo + radiation Restless legs syndrome Surgical History History of tooth extraction History of cataract surgery R/L Nausea and vomiting after administration of anesthetic agent History of cystoscopy Cysto, laser litho (02/19/2021): LMA#4 (iGel) at [facility] History of lithotripsy History of colonoscopy 05/20/23, MAC at [facility] History of esophagogastroduodenoscopy (EGD) History of gynecological procedure D&C, Mirena insertion (11/24/18): Grade 2 view, Glidescope#3, ETT 7.0, atraumatic elective glidescope intubation x2, 2nd attempt successful History of breast biopsy History of D&C H/O bilateral salpingo-oophorectomy H/O breast reconstruction Implants failed due to infections > subsequent removal History of carpal tunnel release R/L History of exploratory laparotomy Hx of foot surgery left History of herniorrhaphy Umbilical with mesh History of cholecystectomy History of vascular access device Mediport power port (Right chest) History of bilateral mastectomy LUE restriction Family History Brother Family history of diabetes mellitus Father Family history of diabetes mellitus Mother Family history of diabetes mellitus Other No family history of adverse response to anesthesia Social History Smoking Status: Former smoker Tobacco Type: Cigarettes Cigarettes Per Day: Quit 1984; Second Hand Exposure: Yes (hx); Do You Dip or Chew Tobacco: No; Hx Alcohol Use: No Hx Substance Use: No Preferred Language: German Communication Ability: Effective Precision Dancer Required: No Beliefs That Will Affect Care: None Current Living Situation: Spouse Current Living Situation Comment: raised ranch home, stair lift , ramp in place Feels Safe at Home: Yes Assistive Devices: Cane, CPAP, Scooter/Electric Scooter and Walker Review of Systems Review of Systems: Currently unabtainable as patient is intubated and not responsive to verbal stimuli. Ear, Nose, Mouth, Throat: OG in place draining bile although nurse said there was slight blood tinge on first aspiration of tube. Physical Exam Physical Exam: Intubated WF Tachypneic Respiratory: Ventilator sounds Cardiovascular: Distant but seems regular Gastrointestinal (Abdomen): Faint BS and difficult to exam with rapid respirations but seems soft Musculoskeletal: Negative LE edema Neurologic: Intubated and nonresponsive to verbal stimuli or physical stimuli during exam. Results & Data Vital Signs (Past 12 Hours) Vital Signs Temp Pulse Pulse Resp BP BP Pulse Ox 01/07/24 11:57 98 01/07/24 11:30 72 40 H 94/54 L 98 01/07/24 11:13 74 26 H 99 01/07/24 11:13 99 01/07/24 11:06 76 99 01/07/24 11:00 100/64 01/07/24 10:54 77 26 H 99 01/07/24 10:50 96/68 L 01/07/24 10:39 77 26 H 108/63 99 01/07/24 10:38 36.9 C 80 24 117/69 99 01/07/24 10:38 36.9 C 77 26 H 117/69 99 01/07/24 10:30 77 28 H 119/63 01/07/24 10:21 79 28 H 114/65 100 01/07/24 10:18 78 28 H 114/65 98 01/07/24 10:15 81 01/07/24 10:10 117/69 O2 Del Method 01/07/24 11:57 Room Air 01/07/24 11:30 01/07/24 11:13 Room Air 01/07/24 11:13 Room Air 01/07/24 11:06 Room Air 01/07/24 11:00 01/07/24 10:54 Room Air 01/07/24 10:50 01/07/24 10:39 01/07/24 10:38 Room Air 01/07/24 10:38 Room Air 01/07/24 10:30 01/07/24 10:21 Room Air 01/07/24 10:18 Room Air 01/07/24 10:15 01/07/24 10:10 PG Care Time/CCT Total # of Minutes Spent Total Time Spent with Patient: Total time spent is greater than 50% in coordination of care (as documented) at patient's floor/unit and/or counseling patient: Coding Level of Care Code 88077 IN/OBS CONSULT LVL 4,60M Diagnoses Acute blood loss anemia D62
[2024-01-07] MEDS: NOREPINEPHRINE/D5W 4 MG/250 ML PLCT IV SCH (15:02)
[2024-01-07] MEDS: SODIUM BICARB 8.4% INJ 50 MEQ/50 ML SYR IV ONE (15:02)
[2024-01-07 15:04] LABS: iSTAT Art Bld Gas pCO2 Correct 23 mmHg (35-46); iSTAT Art Bld Gas pH Corrected 7.164 (7.35-7.45); iSTAT Arterial Blood Gas HCO3 8 meg/L (19-24); iSTAT Arterial Blood Gas pCO2 23 mmHg (35-46); iSTAT Arterial Blood Gas pH 7.16 (7.35-7.45); iSTAT Arterial Blood Gas pO2 258 mmHg (80-95); iSTAT Arterial Blood Gas pO2 C 258; iSTAT Carbon Dioxide 9 mmol/L (24-31); iSTAT FiO2 100 %; iSTAT Hematocrit 17 % (37-47); iSTAT Hemoglobin 5.8 g/dl (12.0-16.0); iSTAT Potassium 6.3 mmol/L (3.3-5.0); iSTAT Sample Type Arterial; iSTAT Site Art Line; iSTAT Sodium 136 mmol/L (135-144); iSTAT SpO2 92
[2024-01-07] MEDS: PROPOFOL IV EMULSION 10 MG/ML 100 ML VIAL IV ONE (15:04)
[2024-01-07] MEDS: propofoL 1,000 MG/100 ML VIAL IV SCH (15:04)
[2024-01-07] MEDS: RAPID SEQUENCE INDUCTION BAG ONE (15:04)
[2024-01-07] MEDS: NOREPINEPHRINE/D5W 4 MG/250 ML IV ONE (15:04)
--- NOTE | 2024-01-07 15:06 | Procedure Note ---
Procedure Note Date of Service January 07, 2024 INTUBATION PROCEDURE NOTE: Provider: Tera Lim MD A time-out was completed verifying correct patient, procedure, site, positioning. Patient was evaluated and required intubation for septic shock and respiratory failure. Sedative agent used: Etomidate, Versed Paralysis agent used: None Emergent consent was implied given patients rapidly declining clinical status and need for airway protection. [] The patient was prepared in the appropriate fashion. Sedation was achieved utilizing etomidate and Versed. Video laryngoscopy was performed yielding a grade 1 view. A 7.5 endotracheal tube was passed through the cords. Stylette was removed. Balloon was inflated.Appropriate Colorimetric change was appreciated. Bilateral breath sounds were heard without air sounds in the abdomen. Chest x-ray pending. The patient tolerated the procedure well [facility] [place] Procedure Codes (Charges) Resuscitation Resuscitation: 92645 Endotracheal Intubation, emergency Coding CPT Codes Resuscitation - Resuscitation: 67831 Endotracheal Intubation, emergency ([id number]) Additional Codes Date of Service (PG.SURGERY)
--- NOTE | 2024-01-07 15:08 | Procedure Note ---
Procedure Note Date of Service January 07, 2024 ARTERIAL LINE PROCEDURE NOTE: Procedure: Arterial Line Placement Provider: Tera Lim MD Indication: Monitoring on Pressors Procedure was emergent. Discussed verbally with the patient and prior to intubation and they agreed A time-out was completed verifying correct patient, procedure, site, positioning, and implant(s) or special equipment if applicable. Patient has a restricted left upper extremity and pulses weakly palpable on the right upper extremity so therefore elected to proceed with a femoral approach. The groin was extensively scrubbed using chlorhexidine. The artery and vein were visualized. Using direct ultrasound visualization the right femoral artery was accessed using an 18-gauge needle. Pulsatile blood flow was obtained. The syringe was detached leaving the needle in place and a wire was passed through the needle into the artery. The needle was then removed leaving the wire in place. A 12 cm 20-gauge catheter was then threaded over the wire into the artery. Wire was removed. Pulsatile blood flow was again maintained and an arterial waveform was transduced. The catheter was sutured in place and a sterile dressing was applied Blood Loss: 5 mL Complications: None [facility] [place] Procedure Codes (Charges) Tubes, Drains, and Vasc Access Procedure 1: Tubes, Drains, and Vasc Access: [id number] Arterial Cath/Cannulation Sampling/Monitoring/Transfusion Coding CPT Codes Tubes, Drains, and Vasc Access - Tubes, Drains, and Vasc Access: [id number] Arterial Cath/Cannulation Sampling/Monitoring/Transfusion ([id number]) Additional Codes Date of Service (PG.SURGERY)
--- NOTE | 2024-01-07 15:09 | Procedure Note ---
Procedure Note Date of Service January 07, 2024 CENTRAL LINE PROCEDURE NOTE: Procedure: Central Line Placement Provider: Tera Lim MD Indication: Central Drug Administration, Poor Venous Access, Multiple Lab Draws Necessary, etc. Site: Left IJ Procedure was emergent. Patient been intubated and was unable to provide verbal or written consent but agreed to proceed A time-out was completed verifying correct patient, procedure, site, positioning, and implants(s) or special equipment if applicable. Patients left neck was cleansed and draped in the typical sterile fashion using Chloraprep. The Internal Jugular Vein and Carotid Artery were identified using ultrasound. The superficial tissue was anesthetized using 5 mL of 1% lidocaine without epinephrine under direct visualization with the ultrasound. After adequate anesthetization was achieved, the Internal Jugular vein was cannulated under direct ultrasound guidance using an introducer needle on a syringe. Good venous blood return was maintained prior to removal of syringe from introducer needle. Using Seldinger Technique, a guide wire was advanced through the introducer needle without resistance. The introducer needle was removed and ultrasound images were obtained of the guide wire within the Internal Jugular Vein and saved to the patients medical record. A small incision was made in penetrating fashion at the guide wire insertion site utilizing an 11 blade scalpel. The dilator was advanced to the vessel without resistance. The dilator was exchanged for the triple lumen catheter which was advanced into the vessel without resistance. The guide wire was removed intact from the catheter without issue. Claves were placed on each catheter tip with confirmation of good blood flow from each lumen. Each port was easily flushed with sterile saline. The catheter was placed at the hub and sutured in place. BioPatch was applied to the catheter and a sterile Tegaderm dressing was applied over the catheter with careful attention to sterility. Patient tolerated procedure well. No immediate complications were met. Post procedure x-ray was pending [facility] [place] Procedure Codes (Charges) Tubes, Drains, and Vasc Access Procedure 1: Tubes, Drains, and Vasc Access: [id number] Place catheter in vein superior or inferior vena cava Procedure 2: Tubes, Drains, and Vasc Access: [id number] Ultrasound Guidance For Vascular Coding CPT Codes Tubes, Drains, and Vasc Access - Tubes, Drains, and Vasc Access: [id number] Place catheter in vein superior or inferior vena cava ([id number]) Tubes, Drains, and Vasc Access - Tubes, Drains, and Vasc Access: [id number] Ultrasound Guidance For Vascular ([id number]) Additional Codes Date of Service (PG.SURGERY)
[2024-01-07] MEDS: PROPOFOL BOLUS FROM BAG IV PRN (15:12)
[2024-01-07] MEDS ORDERED: SODIUM BICARB 8.4% INJ 50 MEQ/50 ML SYR IV STA (15:12)
[2024-01-07] MEDS: PANTOprazole 40 MG in DEXTROSE 5% MINI-B 100 ML IV SCH (15:15)
[2024-01-07] MEDS ORDERED: fentaNYL BOLUS from BAG IV PRN (15:21)
[2024-01-07] MEDS ORDERED: MIDAZOLAM HCL 1 MG/ML 2ML VIAL IV PRN (15:21)
[2024-01-07] MEDS: VASOPRESSIN 20 UNITS in SODIUM CHLORIDE 0.9% 100 ML IV SCH (15:25)
[2024-01-07] MEDS: ALBUMIN 25% 25 GM/100 ML VIAL IV ONE (15:25)
[2024-01-07] MEDS: INSULIN ASPART PER UNIT CHARGE SC SCH (15:27)
[2024-01-07] MEDS: LANTUS PER UNIT CHARGE SC SCH (15:28)
[2024-01-07] MEDS: fentaNYL citrate 2,500 MCG/250 ML BAG IV SCH (15:33)
--- NOTE | 2024-01-07 15:34 | Critical Care Consultation ---
Date of Consultation January 07, 2024 Assessment & Plan (1) Lactic acidosis: (2) Acute blood loss anemia: (3) GI bleed: Plan Impression: 68-year-old female with multiple medical comorbidities noted above admitted with symptomatic anemia, severe acidosis, hypotension septic shock and peritonitis. She required active resuscitation on arrival to the intensive care unit. Recommendations: 1. Neurologic: Patient had encephalopathy likely metabolic in etiology. She is now sedated on propofol. Will continue fentanyl and Versed as needed depending on her hemodynamics. 2. Cardiovascular: Multifactorial shock including septic and potential hypovolemia although her superior vena cava on placement of a central line was significantly distended with significant backbleeding suggesting increased intracardiac pressures. She is currently were requiring norepinephrine as well as vasopressin. She has known diastolic dysfunction. Will continue pressors at this point in time. Wean as tolerated. Would recommend repeating echocardiogram at this point in time. 3. Pulmonary: Intubated due to hemodynamic instability and severe acidosis. Follow-up blood gas pending. Continue mechanical ventilation at this point in time. 4. GI: Discussed with GI. Given the delay in blood arrival and GI recommendations would recommend the patient be transferred to a higher level of care where advanced endoscopy is available as well as interventional radiology. The patient should have surgical evaluation as well. Continue PPI. Continue resuscitation. 5. Heme-onc: Severe anemia due to likely acute blood loss. Reading difficulty getting blood products here. Will be easier to get the patient closer to a larger blood bank. Check fibrinogen and ionized calcium. 6. Acute renal failure with hyperkalemia: Potassium was stabilized using bicarb insulin calcium and dextrose. Repeat labs pending. May need nephrology for CVVH. 7. ID: No current issues. 8. Endocrine: Glycemic control per ICU protocol. Will likely require insulin infusion. The patient is critically ill at this point in time with significant possibility of clinical deterioration and/or . Agree with transfer to a higher level of care. A total of 90 minutes in critical care time was spent evaluation management stabilization of this patient exclusive of procedures. History of Present Illness Attending Physician: Raúl Burroughs MD History of Present Illness Asked by hospitalist to assist in evaluation management this patient with severe septic shock, peritonitis, severe acidosis, and GI bleeding with profound anemia. Limited history is obtained from the patient and her and the remaining history is obtained from discussion with the GI consultants as well as review the electronic medical record. The patient is a 68-year-old morbidly obese female with diabetes hypertension and asthma as well as breast cancer status post mastectomy with polyarthritis immunosuppressed on methotrexate who was admitted 1 week ago with upper GI bleed. Endoscopy at that point in time demonstrated a hyperplastic polyp which was resected but showed stigmata of bleeding. She was treated with additional injection of epinephrine as well as placement of hemostatic clips x 3. She did not take aspirin or Coumadin. Over the last 48 hours the patient has had increa sing abdominal pain associated with nausea and progressive weakness. She is brought to the emergency room where she was found to be significantly hypotensive acidotic and anemic. She had a CT of the abdomen performed in the emergency room and was admitted to the intensive care unit. I assessed the patient immediately on arrival to the ICU. The patient was pale and appeared ill. She is having difficulty breathing. She was hemodynamically unstable with a low blood pressure. She had received some bicarb and a bicarb infusion had been ordered but was not yet started. This was initiated when she arrived to the ICU. She had poor peripheral access with only a port and a small ultrasound-guided IV infusing. I immediately met with the patient and her . I advised him that she was critically ill at this point time and required aggressive resuscitation including central line placement, arterial line placement, and possible intubation. During the course of setting up the patient complained of increasing shortness of breath and decision was made to proceed with intubation. Please see separate procedure note. A femoral arterial line was then placed as we were unable to obtain a cuff pressure. She was initiated on norepinephrine. A central line was also placed. During the course of this resuscitation I discussed with the hospitalist who admitted her. I recommended a stat GI consultation as well as a surgery consultation. We were then notified that the blood bank is unable to provide any blood products for her at this point in time and will be several hours before we can get blood products. Based on the severity of illness as well as conversations had with the bedside with GI who recommended surgical evaluation it was recommended that the patient be transferred to a higher level of care. The hospitalists has arranged for the patient to be excepted at [facility] and is pending transport. Allergies Allergy/AdvReac Type Severity Reaction Status Date / Time allopurinol Allergy Intermediate Unknown Verified 10/14/23 06:46 amitriptyline Allergy Intermediate Arms, leg Verified 10/14/23 06:46 swelling codeine Allergy Intermediate Pruritus, Verified 10/14/23 06:46 rash doxepin Allergy Intermediate Arms, leg Verified 10/14/23 06:46 swelling gabapentin Allergy Intermediate Arms, leg Verified 10/14/23 06:46 swelling sitagliptin Allergy Intermediate Arms, leg Verified 10/14/23 06:46 swelling mineral oil [From Vagisil] Allergy Mild Rash Verified 10/14/23 06:46 nickel Allergy Mild Rash Verified 10/14/23 06:46 potassium chloride Allergy Mild Pruritus, Verified 10/14/23 06:46 [From Klor-Con] rash resorcinol [From Vagisil] Allergy Mild Rash Verified 10/14/23 06:46 starch [From Vagisil] Allergy Mild Rash Verified 10/14/23 06:46 Tricyclic Antidepressants Allergy Unknown leg and Verified 10/14/23 14:20 and Tricy arm swelling clindamycin Allergy Unknown Verified 10/14/23 07:14 fluticasone furoate Allergy Swelling Verified 10/14/23 06:46 [From Breo Ellipta] of Lip/Tongue/Throat vilanterol Allergy Swelling Verified 10/14/23 06:46 [From Breo Ellipta] of Lip/Tongue/Throat adhesive AdvReac Intermediate Rash, Verified 10/14/23 06:46 itching (tape) dexamethasone [From Decadron] AdvReac Intermediate Tachycardia Verified 10/16/23 07:30 erythromycin base AdvReac Intermediate Severe Verified 10/14/23 06:46 stomach cramps Home Medications Medication Instructions Recorded Confirmed Type aspirin 81 mg tablet,delayed 81 mg PO QAM 11/09/17 12/25/23 History release atorvastatin 20 mg tablet 20 mg PO QAM 11/09/17 12/25/23 History metoprolol tartrate 25 mg tablet 12.5 mg PO BIDM 11/09/17 12/25/23 History potassium citrate 10 mEq (1,080 See Rx Instructions .Route .COMPLEX 11/09/17 12/25/23 History mg) tablet,extended release warfarin 5 mg tablet 5 mg PO 2XWK 11/09/17 12/25/23 History magnesium chloride 64 mg 128 - 192 mg PO TID 01/08/19 12/25/23 History (magnesium chloride) tablet,delayed release medroxyprogesterone 10 mg tablet 10 mg PO QAM 02/13/19 12/25/23 History (Provera) ropinirole 0.5 mg tablet 0.5 mg PO HS PRN Restless Leg(S) 02/13/19 12/25/23 His tory escitalopram oxalate 20 mg tablet 20 mg PO QAM 08/27/20 12/25/23 History ferrous sulfate 325 mg (65 mg 325 mg PO DAILY 08/27/20 12/25/23 History iron) tablet furosemide 20 mg tablet 20 mg PO QAM Edema 08/27/20 12/25/23 History leucovorin calcium 5 mg tablet 5 mg PO WK 08/27/20 12/25/23 History methotrexate sodium 25 mg/mL 20 mg subcut UD 08/27/20 12/25/23 History injection solution verapamil 120 mg tablet,extended 120 mg PO TID 08/27/20 12/25/23 History release warfarin 5 mg tablet 7.5 mg PO 5XWK 08/27/20 12/25/23 History metformin 500 mg tablet,extended 2,000 mg PO HS 01/24/21 12/25/23 History release 24 hr montelukast 10 mg tablet 10 mg PO HS 01/24/21 12/25/23 History nawhcxxagstm-qprcomer-xstvag 1 tab PO QAM 01/24/21 12/25/23 History tablet (Multivitamin 50 Plus tablet) vitamin B complex 1 tab PO QAM 01/24/21 12/25/23 History ondansetron 4 mg disintegrating 4 mg PO Q8H PRN nausea and 02/09/21 12/25/23 Rx tablet vomiting #7 tabs albuterol sulfate 90 mcg/actuation 2 puff inhalation Q4H PRN Wheezing 07/10/21 12/25/23 History aerosol inhaler (Ventolin HFA) biotin 10 mg tablet 10 mg PO BID 07/10/21 12/25/23 History cyclosporine 0.05 % eye drops in a 1 drp ophthalmic (eye) Q12H 07/10/21 12/25/23 History dropperette (Restasis) vibegron 75 mg tablet (Gemtesa) 75 mg PO QAM 07/10/21 12/25/23 History bupropion HCl 150 mg 24 hr tablet, 150 mg PO QAM 09/28/23 12/25/23 History extended release insulin glargine 100 unit/mL (3 10 unit subcut HS 09/28/23 12/25/23 History mL) subcutaneous pen (Basaglar KwikPen U-100 Insulin) empagliflozin 25 mg tablet 25 mg PO DAILY 10/14/23 12/25/23 History (Jardiance) famotidine 40 mg tablet 40 mg PO HS 10/14/23 12/25/23 History fluticasone propionate 230 2 inh inhalation BID 10/14/23 12/25/23 History mcg-salmeterol 21 mcg/actuation HFA inhaler (Advair HFA) oxycodone 5 mg tablet 5 mg PO Q6H PRN pain #30 tabs 10/14/23 12/25/23 Rx tramadol 50 mg tablet 50 mg PO Q6H PRN pain, moderate 10/14/23 12/25/23 Rx #30 tabs levalbuterol tartrate 45 1 puff inhalation Q4 PRN Wheezing 12/25/23 12/25/23 History mcg/actuation aerosol inhaler semaglutide 2 mg/dose (8 mg/3 mL) 2 mg subcut WK 12/25/23 12/25/23 History subcutaneous pen injector (Ozempic) sodium bicarbonate 650 mg tablet 650 mg PO AMHS 12/25/23 12/25/23 History pantoprazole 40 mg tablet,delayed 40 mg PO QAM #30 tabs 12/31/23 Rx release Patient History Medical History Seronegative polyarthritis Rheumatoid arthritis with inflammatory polyarthropathy Osteoarthritis Overactive bladder GERD (gastroesophageal reflux disease) Diabetes mellitus, type 2 Anemia Anxiety and depression Post traumatic stress disorder Peripheral neuropathy Pulmonary embolism Several years ago Hx of deep venous thrombosis Age mid-30s after fall/trauma Atrial tachycardia Follows with Dr. Shaw Sleep apnea CPAP (compliant) Asthma Uterine hyperplasia Currently on hormone therapy Morbid obesity with BMI of 40.0-44.9, adult Limb alert care status LUE restriction Gastroparesis Raynauds phenomenon History of kidney stones Degenerative disc disease Chronic kidney disease (CKD) Stage 3 Follows with [facility] Rosa Moon nephrology Neuropathy Severe legs/feet Uses assistive devices including mobilized wheelchair Fibromyalgia Hyperlipidemia Hypertension Breast cancer Invasive adenocarcinoma Dx 2010 - B/L mastectomy + chemo + radiation Restless legs syndrome Surgical History History of tooth extraction History of cataract surgery R/L Nausea and vomiting after administration of anesthetic agent History of cystoscopy Cysto, laser litho (02/19/2021): LMA#4 (iGel) at [facility] History of lithotripsy History of colonoscopy 05/20/23, MAC at [facility] History of esophagogastroduodenoscopy (EGD) History of gynecological procedure D&C, Mirena insertion (11/24/18): Grade 2 view, Glidescope#3, ETT 7.0, atraumatic elective glidescope intubation x2, 2nd attempt successful History of breast biopsy History of D&C H/O bilateral salpingo-oophorectomy H/O breast reconstruction Implants failed due to infections > subsequent removal History of carpal tunnel release R/L History of exploratory laparotomy Hx of foot surgery left History of herniorrhaphy Umbilical with mesh History of cholecystectomy History of vascular access device Mediport power port (Right chest) History of bilateral mastectomy LUE restriction Family History Brother Family history of diabetes mellitus Father Family history of diabetes mellitus Mother Family history of diabetes mellitus Other No family history of adverse response to anesthesia Social History Smoking Status: Never smoker Tobacco Type: Cigarettes Cigarettes Per Day: Quit 1984; Second Hand Exposure: No; Do You Dip or Chew Tobacco: No; Tobacco Cessation Education Requested by Patient: No Hx Alcohol Use: No Hx Substance Use: No Preferred Language: Cantonese Ivorian Communication Ability: Effective Stock Patch Sawyer Required: No Beliefs That Will Affect Care: None Current Living Situation: Spouse Current Living Situation Comment: raised ranch home, stair lift , ramp in place Other Information That Helps Us Care for You: No Feels Safe at Home: Yes Safety Concerns: Feels Safe At This Time Assistive Devices: Cane, CPAP, Scooter/Electric Scooter and Walker Review of Systems Review of Systems: Unobtainable due to reduced consciousness Physical Exam Constitutional: + acute distress, + ill appearing, + mor bidly obese and + altered mental status Neck: trachea midline, no thyromegaly Respiratory: + respiratory distress, + labored breath ing and + tachypneic Auscultation: no crackles and no wheezes Cardiovascular: RRR, no murmur, no edema Gastrointestinal (Abdomen): Inspection/Auscultation: + abdomen distended Percussion/Palpation: + abdomen tender Musculoskeletal: Extremities: extremities normal to inspection Skin: no rashes, warm and dry Neurologic: Encephalopathic Lymphatic: no cervical lymphadenopathy Results & Data Results & Data Vital Signs (Past 12 Hours) Vital Signs Temp Pulse Pulse Resp BP BP Pulse Ox 01/07/24 11:57 98 01/07/24 11:30 72 40 H 94/54 L 98 01/07/24 11:13 74 26 H 99 01/07/24 11:13 99 01/07/24 11:06 76 99 01/07/24 11:00 100/64 01/07/24 10:54 77 26 H 99 01/07/24 10:50 96/68 L 01/07/24 10:39 77 26 H 108/63 99 01/07/24 10:38 36.9 C 80 24 117/69 99 01/07/24 10:38 36.9 C 77 26 H 117/69 99 01/07/24 10:30 77 28 H 119/63 01/07/24 10:21 79 28 H 114/65 100 01/07/24 10:18 78 28 H 114/65 98 01/07/24 10:15 81 01/07/24 10:10 117/69 O2 Del Method 01/07/24 11:57 Room Air 01/07/24 11:30 01/07/24 11:13 Room Air 01/07/24 11:13 Room Air 01/07/24 11:06 Room Air 01/07/24 11:00 01/07/24 10:54 Room Air 01/07/24 10:50 01/07/24 10:39 01/07/24 10:38 Room Air 01/07/24 10:38 Room Air 01/07/24 10:30 01/07/24 10:21 Room Air 01/07/24 10:18 Room Air 01/07/24 10:15 01/07/24 10:10 Critical Care Results & Data Vital Signs (Past 12 Hours) Vital Signs Temp Pulse Pulse Resp BP BP Pulse Ox 01/07/24 11:57 98 01/07/24 11:30 72 40 H 94/54 L 98 01/07/24 11:13 74 26 H 99 01/07/24 11:13 99 01/07/24 11:06 76 99 01/07/24 11:00 100/64 01/07/24 10:54 77 26 H 99 01/07/24 10:50 96/68 L 01/07/24 10:39 77 26 H 108/63 99 01/07/24 10:38 36.9 C 80 24 117/69 99 01/07/24 10:38 36.9 C 77 26 H 117/69 99 01/07/24 10:30 77 28 H 119/63 01/07/24 10:21 79 28 H 114/65 100 01/07/24 10:18 78 28 H 114/65 98 01/07/24 10:15 81 01/07/24 10:10 117/69 O2 Del Method 01/07/24 11:57 Room Air 01/07/24 11:30 01/07/24 11:13 Room Air 01/07/24 11:13 Room Air 01/07/24 11:06 Room Air 01/07/24 11:00 01/07/24 10:54 Room Air 01/07/24 10:50 01/07/24 10:39 01/07/24 10:38 Room Air 01/07/24 10:38 Room Air 01/07/24 10:30 01/07/24 10:21 Room Air 01/07/24 10:18 Room Air 01/07/24 10:15 01/07/24 10:10 Lab & Micro Results (Past 24 Hours) RBC 1.92 M/uL (4.20-5.40) L 01/07/24 WBC 12.37 K/ul (4.8-10.8) H 01/07/24 Hgb 5.9 g/dl (12.0-16.0) L* 01/07/24 Hct 20.0 % (37.0-47.0) L* 01/07/24 MCV 104.2 fL (80.0-100.0) H 01/07/24 MCH 30.7 pg (25.0-34.0) 01/07/24 MCHC 29.5 g/dL (32.0-36.0) L 01/07/24 RDW Standard Deviation 72.4 fL (36.4-46.3) H 01/07/24 RDW Coefficient of Variation 21.3 % (11.5-14.5) H 01/07/24 Plt Count 194 K/uL (130-400) 01/07/24 MPV 11.5 fL (9.4-12.4) 01/07/24 Nucleated Red Blood Cells % (auto) 2.7 % 01/06 Nucleated RBC Absolute Count (auto) 0.33 K/uL (0.00-0.12) H 01/07/24 Neutrophils (%) (Auto) 68.1 % 01/07/24 Lymphocytes (%) (Auto) 10.3 % 01/07/24 Monocytes # (Auto) 1.40 K/uL (0.11-0.59) H 01/07/24 Eosinophils # (Auto) 0.01 K/uL (0.00-0.50) 01/07/24 Immature Granulocyte % (Auto) 10.0 % 01/07/24 Neutrophils # (Auto) 8.41 K/uL (1.40-6.50) H 01/07/24 Lymphocytes # (Auto) 1.28 K/uL (1.20-3.40) 01/07/24 Monocytes # (Auto) 1.40 K/uL (0.11-0.59) H 01/07/24 Eosinophils # (Auto) 0.01 K/uL (0.00-0.50) 01/07/24 Basophils # (Auto) 0.03 K/uL (0.00-0.20) 01/07/24 Immature Granulocyte # (Auto) 1.24 K/uL (0.01-0.20) H 01/06 Polychromasia 2+ 01/07/24 Anisocytosis Present 01/07/24 Macrocytosis Present 01/07/24 Na 134 mmol/L (136-145) L 01/07/24 K 6.0 mmol/L (3.5-5.1) H 01/07/24 Cl 104 mmol/L (98-107) 01/07/24 CO2 13 mmol/L (21-32) L 01/07/24 Anion Gap 17 (3-11) H 01/07/24 BUN 19 mg/dl (6-23) 01/07/24 Creatinine 1.33 mg/dl (0.6-1.2) H 01/07/24 BUN/Creatinine Ratio 14.3 (10-20) 01/07/24 Glu 309 mg/dl (70-99(Fasting)) H* 01/07/24 Ca 8.7 mg/dl (8.6-10.3) 01/07/24 Total Bilirubin 3.1 mg/dl (0.2-1.0) H 01/07/24 AST 103 U/L (13-39) H 01/07/24 ALT 40 U/L (7-52) 01/07/24 Alkaline Phosphatase 88 U/L (34-104) 01/07/24 TP 6.0 gm/dl (6.0-8.3) 01/07/24 Albumin 3.2 gm/dl (3.4-5.0) L 01/07/24 Globulin 2.8 gm/dl (2.5-4.0) 01/07/24 Albumin/Globulin Ratio 1.1 (0.9-2) 01/07/24 Mg 2.2 mg/dl (1.7-2.4) 01/07/24 10:40 Calcium Level 8.7 mg/dl (8.6-10.3) 01/07/24 10:40 Prothromb Time International Ratio 1.1 (0.9-1.1) 01/07/24 11:0 2 Venous Blood pH 7.12 (7.36-7.41) L 01/07/24 12:43 Venous Blood Partial Pressure CO2 26 mmHg (38-50) L 01/07/24 12 :43 Venous Blood Partial Pressure O2 29 mmHg 01/07/24 12:43 Venous Blood HCO3 9 mmol/L 01/07/24 12:43 Venous Blood Base Excess -19.1 mEq/L 01/07/24 12:43 Venous Blood Oxygen Saturation < 60.0 % 01/07/24 12:43 Enrique Test NA 01/07/24 14:51 Diagnostic Findings (Past 24 Hours) Chest X-Ray 01/07/24 10:05 XR chest 1V portable HISTORY: 68 years-old Female weakness acute weakness COMPARISON: CTA chest 12/25/2023 TECHNIQUE: AP view the chest FINDINGS: Cardiac silhouette is enlarged. Unchanged right subclavian Oixpel-m-Ikry catheter. No pneumothorax, pleural effusion or overt pulmonary edema. Mild chronic interstitial coarsening. Bones appear grossly intact. Cervical spinal fusion hardware. Left upper quadrant endoscopy clips. IMPRESSION: Cardiomegaly with chronic interstitial coarsening. ACT 112: Negative or not required by law. The above report was generated using voice recognition software. It may contain grammatical, syntax or spelling errors. Electronically signed by: Pavel Morrissey M.D. 01/07/2024 11:58 AM Abdomen/Pelvis CT 01/07/24 10:[address] WITH IV CONTRAST CT DOSE: 1455.7 mGy.cm HISTORY: Acute generalized abdominal pain diffuse pain, vomit TECHNIQUE: Multiaxial CT images of the abdomen and pelvis were performed following the IV administration of 94 cc of Optiray, A dose lowering technique was utilized adhering to the principles of ALARA. COMPARISON STUDY: 12/25/2023 FINDINGS: Mild cardiomegaly. Trace pericardial effusion. Small pleural effusions with mild patchy round glass/consolidative opacities of the basal right lower lobe. No pneumoperitoneum. Spleen is enlarged, 15.6 cm. Hepatomegaly with hepatic steatosis. Cholecystectomy. Unremarkable pancreas and adrenal glands. Cysts of the right kidney measure up to approximately 5 cm. Possible 1.3 cm mural nodule involves a 4.8 cm cyst of the inferior pole right kidney. Small left renal cysts. 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 No hydronephrosis. Decompressed urinary bladder with Cueto catheter. Unchanged appearance of the uterus. Trace pelvic ascites. Atherosclerosis of the aorta. Retroaortic left renal vein. No pathologically enlarged lymph nodes. No bowel obstruction or bowel wall thickening. Colonic diverticulosis. Normal appendix. No acute fracture identified. IMPRESSION: 1. Small pleural effusions with mild right basilar opacities suggestive of pneumonia versus aspiration pneumonitis. 2. No bowel obstruction or bowel wall thickening. 3. Hepatosplenomegaly with hepatic steatosis. 4. Bilateral renal cysts with possible mural nodule involving a cyst of the inferior pole right kidney. Correlation with nonemergent follow-up renal ultrasound recommended. 5. Additional findings as above. ACT 112: Negative or not required by law. The above report was generated using voice recognition software. It may contain grammatical, syntax or spelling errors. Electronically signed by: Pavel Morrissey M.D. 01/07/2024 11:55 AM I & O Totals 24 Hours 01/06/24 01/07/24 01/08/24 06:59 06:59 05:59 Intake Total 2277.763 / 2277.763 Balance 2277.763 / 2277.763 Cumulative 01/07/24 09:51 thru 01/07/24 15:31 Intake Total 2277.763 Balance 2277.763 RT Ventilator Mngmt (Last Documented) Ventilator Ordered Settings Respiratory Rate 40 01/07/24 11:30 Ventilator - PT Measurements Respiratory Rate 40 Coding Level of Care Code 16319 CRITICAL CARE EA ADD 30M Diagnoses Lactic acidosis E87.20 Acute blood loss anemia D62 GI bleed K92.2
--- NOTE | 2024-01-07 15:40 | XRay Report ---
EXAM: Radiograph of the Chest 1 View INDICATION: Tube placement. TECHNIQUE: Frontal view of the chest. COMPARISON: 07/10/2021 FINDINGS: Lungs and pleural spaces: Stable mild pulmonary vascular congestion. No consolidation or pulmonary edema. No pleural effusion or pneumothorax. Heart: Stable large cardiac shadow. Mediastinum: Normal contour. Bones/joints: No fracture, erosion or dislocation. Soft tissues: No abnormality noted. No radiopaque foreign body noted. Vasculature: Stable ectatic aorta. Tubes, lines and devices: The endotracheal tube terminates 3.2 cm above the chato. Nasogastric tube below the diaphragm. The tip is not included in the image field. Left internal jugular central venous catheter tip in the mid superior vena cava. Right subclavian central venous port catheter terminates in the distal SVC. Upper abdomen: No abnormality noted. IMPRESSION: 1. Stable mild pulmonary vascular congestion. 2. Lines and tubes as above. ACT 112: Negative Electronically signed by Julita Nye 01-07-2024 3:40 PM
[2024-01-07 15:51] VITALS: BP 88/45; PULSE 58; RESP 24; O2SAT 92
[2024-01-07 16:05] LABS: Albumin Globulin Ratio 1.2 (0.9-2); BUN Creatinine Ratio 13.7 (10-20); Bilirubin,Total 4.4 mg/dl (0.2-1.0); Calcium 7.9 mg/dl (8.6-10.3); Creatinine Clr Calc Pharmacy 50.4 ml/min; Globulin 2.5 gm/dl (2.5-4.0); Potassium 6.4 mmol/L (3.5-5.1); Total Protein 5.5 gm/dl (6.0-8.3)
[2024-01-07] MEDS: CALCIUM CHLORIDE 10% 1,000 MG in DEXTROSE 5% 50 ML IV STA (16:07)
[2024-01-07 16:13] LABS: Hematocrit (blood only) 20.4 % (37.0-47.0); Hemoglobin 5.8 g/dl (12.0-16.0); White Blood Count 23.75 K/ul (4.8-10.8)
[2024-01-07 16:21] LABS: ALC (manual) 3.09 K/uL (1.2-3.4); ANC (manual) 16.86 K/uL (1.4-6.5); Anisocytosis Present; Echinocytes 1+; Lymphocytes # (manual) 3.09 K/uL (1.2-3.4); Lymphocytes % (manual) 13 %; Mean Corpuscular Hemoglobin 30.2 pg (25.0-34.0); Mean Corpuscular Hgb Conc 28.4 g/dL (32.0-36.0); Mean Corpuscular Volume 106.3 fL (80.0-100.0); Mean Platelet Volume 11.7 fL (9.4-12.4); Metamyelocytes # (manual) 0.95 K/uL (0-0); Metamyelocytes % (manual) 4 %; Monocytes # (manual) 1.19 K/uL (0.11-0.59); Monocytes % (manual) 5 %; Myelocytes # (manual) 1.66 K/uL (0-0); Myelocytes % (manual) 7 %; Neutrophils # (manual) 16.86 K/uL (1.40-6.50); Neutrophils % (manual) 71 %; Nucleated RBC # (auto) 1.47 K/uL (0.00-0.12); Nucleated RBC % (auto) 6.2 %; Platelet Count 144 K/uL (130-400); Polychromasia 2+; RDW Coefficient of Variation 21.2 % (11.5-14.5); RDW Standard Deviation 75.8 fL (36.4-46.3); Red Blood Count 1.92 M/uL (4.20-5.40)
[2024-01-07] MEDS ORDERED: 4.5GM X1 IV STA (16:25)
[2024-01-07 16:28] LABS: Fibrinogen 354 mg/dl (184-400)
[2024-01-07] MEDS ORDERED: ICU Protocol for HYPERglycemia SCH (16:30)
[2024-01-07] MEDS ORDERED: PIPERACILLIN/TAZOBACTAM 4.5 GM/100 ML BAG IV SCH (16:30)
--- NOTE | 2024-01-07 16:31 | Discharge Summary ---
Discharge Summary Date of Service January 07, 2024 Principal Dx & Hospital Course #1 = Principal Diagnosis (1) Hypotension: (2) Acute blood loss anemia: (3) Lactic acidosis: (4) Hyperglycemia: (5) Elevated troponin I level: 68-year-old female with history of CHF diastolic type, diabetes type 2, hypertension, asthma, obstructive sleep apnea on CPAP, PE on Coumadin, GERD, gastroparesis, left breast cancer status postsurgery, inflammatory polyarthritis on methotrexate, fibromyalgia, presenting with abdominal pain and weakness x 2 days. Hypotension, likely secondary to hypovolemia Acute blood loss anemia, possible recurrence of upper GI bleed Poor oral intake Admitted last week for upper GI bleed Status post EGD December 26, 2023 showing gastric polyp, status post cauterization and clipping Patient has not restarted aspirin or Coumadin at home Hemoglobin last week 8.1, currently 6.5 CT abd/pelvis: 1. Small pleural effusions with mild right basilar opacities suggestive of pneumonia versus aspiration pneumonitis. 2. No bowel obstruction or bowel wall thickening. 3. Hepatosplenomegaly with hepatic steatosis. 4. Bilateral renal cysts with possible mural nodule involving a cyst of the inferior pole right kidney. Correlation with nonemergent follow-up renal ultrasound recommended. 5. Additional findings as above. Received total of 2 L of IV NSS at the ER, subsequent Blood pressure systolic 100s 2 units packed RBCs ordered stat Protonix drip N.p.o. GI consult Lactic acidosis Likely secondary to hypotension Initial lactic acid 10.3, after 2 hours 13.5 Total of 2 L IV fluid bolus already given Repeat lactic acid at 4 PM Possible underlying infection? Chest x-ray no pneumonia UA does not indicate UTI, urine culture pending Blood cultures pending IV Zosyn every 8 hours ordered Hyperglycemia Diabetes type 2 Hold usual metformin, glargine, Jardiance, Ozempic Will order insulin sliding scale and pharmacy glycemic consult Mild troponin elevation Likely demand ischemia from hypotension, severe anemia Denies chest pain, cardiac symptoms Troponin 27, 38 Repeat troponin at 4 PM EKG pending Patient noted to be hypotensive, with altered mental status upon arrival to the ICU Patient intubated, placed on IV Levophed Per blood bank, patient tested positive for antibodies and will take numerous hours for blood products to be obtained with the patient Please refer to Dr. Lim, chief gauger notes for full details Decision made to transfer the patient to tertiary level of care Patient kindly accepted by ICU team at [facility] [place] via [facility] Patient's Chandrakant updated at the bedside He is agreeable and comfortable the plan of care Other chronic medical conditions: Congestive heart failure diastolic type-currently on the dry side Monitor volume status Hypertension-currently hypotensive, hold metoprolol, verapamil Asthma, obstructive sleep apnea on CPAP-not in exacerbation PE on Coumadin-INR 1.2, has not resume Coumadin at home, hold Coumadin History of GERD, gastroparesis-currently on Protonix drip Inflammatory polyarthritis, fibromyalgia-on weekly methotrexate History of left breast cancer status post surgery DVT prophylaxis SCDs for now CODE STATUS Full code, confirmed with patient Disposition Will need PT and OT evaluation when hemodynamically stable Notes For Next Care Provider Medication Changes From Visit Please refer to medical reconciliation Admission HPI Per Admitting Provider 68-year-old female with history of CHF diastolic type, diabetes type 2, hypertension, asthma, obstructive sleep apnea on CPAP, PE on Coumadin, GERD, gastroparesis, left breast cancer status postsurgery, inflammatory polyarthritis on methotrexate, fibromyalgia, presenting with abdominal pain and weakness x 2 days. Patient was recently admitted and discharged to [facility] a week ago for GI bleed requiring multiple units of packed red blood cells transfusion. She underwent an EGD which showed gastric polyp, status post cauterization and clipping. She was discharged to home and was advised to hold her aspirin and Coumadin until follow-up. At home, patient was doing well, denies hematochezia or melena. However 2 days ago, patient started to have diffuse abdominal pain, sharp, pressure, associated with nausea, and progressive weakness. No fever or chills, has mild coughBut no shortness of breath. Today, patient was found to be hypotensive on the field, systolic 80s. At the ER, patient received with a blood pressure of 117/69 heart rate 81, respiratory rate 28, satting 90% on room air, temperature 36.9. Hemoglobin 6.5, bicarb 12, potassium 5.9, blood glucose 350, troponin 27. EKG: Pending CT abdomen pelvis: 1. Small pleural effusions with mild right basilar opacities suggestive of pneumonia versus aspiration pneumonitis. 2. No bowel obstruction or bowel wall thickening. 3. Hepatosplenomegaly with hepatic steatosis. 4. Bilateral renal cysts with possible mural nodule involving a cyst of the inferior pole right kidney. Correlation with nonemergent follow-up renal ultrasound recommended. 5. Additional findings as above. Urinalysis: No bacteria seen, trace leukocyte Estrace, negative for nitrite Patient was given 2 L of IV NSS bolus. 2 units of packed RBCs ordered for transfusion. Sodium bicarb 50 mEq IV push given. 6 units of insulin NovoLog given. IV cefepime ordered as well On my exam, patient seen resting in bed, awake and alert but very weak, somewhat drowsy. She is answering questions appropriately. Reports persistent generalized abdominal pain, described as sharp, and pressure- like associate with nausea. Positive flatus No active shortness of breath, chest pain, palpitations. Admission Exam Per Admitting Provider General- oriented x 3, not in distress, speaks in sentences with no effort or accessory muscle use Very weak, somewhat drowsy Head- atraumatic Eyes- Pale conjunctivae,PERRL, EOMI, anicteric ENT- oropharynx clear Neck- supple, no JVD, no adenopathy, no thyromegaly; carotids +2/2, no bruits appreciated Lungs- clear to auscultation bilaterally, no rales/wheezes Heart- normal rate, regular rhythm; no murmur, no gallop, no rub appreciated Abdomen- Hypoactive bowel sounds, nondistended, soft, Mild tenderness on all quadrants Extremities- no pretibial edema, no calf tenderness; peripheral pulses intact Neuro- alert, oriented x 3; CN 2-12 grossly intact; motor 5/5 b ilaterally;sensation 100% on all extremities; no other gross focal neurologic deficits Skin- Positive pallor,warm & dry Updated Medication List Medication Instructions Recorded Confirmed Type aspirin 81 mg tablet,delayed 81 mg PO QAM 11/09/17 12/25/23 History release atorvastatin 20 mg tablet 20 mg PO QAM 11/09/17 12/25/23 History metoprolol tartrate 25 mg tablet 12.5 mg PO BIDM 11/09/17 12/25/23 History potassium citrate 10 mEq (1,080 See Rx Instructions .Route .COMPLEX 11/09/17 12/25/23 History mg) tablet,extended release warfarin 5 mg tablet 5 mg PO 2XWK 11/09/17 12/25/23 History magnesium chloride 64 mg 128 - 192 mg PO TID 01/08/19 12/25/23 History (magnesium chloride) tablet,delayed release medroxyprogesterone 10 mg tablet 10 mg PO QAM 02/13/19 12/25/23 History (Provera) ropinirole 0.5 mg tablet 0.5 mg PO HS PRN Restless Leg(S) 02/13/19 12/25/23 History escitalopram oxalate 20 mg tablet 20 mg PO QAM 08/27/20 12/25/23 History ferrous sulfate 325 mg (65 mg 325 mg PO DAILY 08/27/20 12/25/23 History iron) tablet furosemide 20 mg tablet 20 mg PO QAM Edema 08/27/20 12/25/23 History leucovorin calcium 5 mg tablet 5 mg PO WK 08/27/20 12/25/23 History methotrexate sodium 25 mg/mL 20 mg subcut UD 08/27/20 12/25/23 History injection solution verapamil 120 mg tablet,extended 120 mg PO TID 08/27/20 12/25/23 History release warfarin 5 mg tablet 7.5 mg PO 5XWK 08/27/20 12/25/23 History metformin 500 mg tablet,extended 2,000 mg PO HS 01/24/21 12/25/23 History release 24 hr montelukast 10 mg tablet 10 mg PO HS 01/24/21 12/25/23 History slobggihkzhd-qvtcnjic-kjqjem 1 tab PO QAM 01/24/21 12/25/23 History tablet (Multivitamin 50 Plus tablet) vitamin B complex 1 tab PO QAM 01/24/21 12/25/23 History ondansetron 4 mg disintegrating 4 mg PO Q8H PRN nausea and 02/09/21 12/25/23 Rx tablet vomiting #7 tabs albuterol sulfate 90 mcg/actuation 2 puff inhalation Q4H PRN Wheezing 07/10/21 12/25/23 History aerosol inhaler (Ventolin HFA) biotin 10 mg tablet 10 mg PO BID 07/10/21 12/25/23 History cyclosporine 0.05 % eye drops in a 1 drp ophthalmic (eye) Q12H 07/10/21 12/25/23 History dropperette (Restasis) vibegron 75 mg tablet (Gemtesa) 75 mg PO QAM 07/10/21 12/25/23 History bupropion HCl 150 mg 24 hr tablet, 150 mg PO QAM 09/28/23 12/25/23 History extended release insulin glargine 100 unit/mL (3 10 unit subcut HS 09/28/23 12/25/23 History mL) subcutaneous pen (Basaglar KwikPen U-100 Insulin) empagliflozin 25 mg tablet 25 mg PO DAILY 10/14/23 12/25/23 History (Jardiance) famotidine 40 mg tablet 40 mg PO HS 10/14/23 12/25/23 History fluticasone propionate 230 2 inh inhalation BID 10/14/23 12/25/23 History mcg-salmeterol 21 mcg/actuation HFA inhaler (Advair HFA) oxycodone 5 mg tablet 5 mg PO Q6H PRN pain #30 tabs 10/14/23 12/25/23 Rx tramadol 50 mg tablet 50 mg PO Q6H PRN pain, moderate 10/14/23 12/25/23 Rx #30 tabs levalbuterol tartrate 45 1 puff inhalation Q4 PRN Wheezing 12/25/23 12/25/23 History mcg/actuation aerosol inhaler semaglutide 2 mg/dose (8 mg/3 mL) 2 mg subcut WK 12/25/23 12/25/23 History subcutaneous pen injector (Ozempic) sodium bicarbonate 650 mg tablet 650 mg PO AMHS 12/25/23 12/25/23 History pantoprazole 40 mg tablet,delayed 40 mg PO QAM #30 tabs 12/31/23 Rx release Hospital Stay Data Consultations 01/07/24 12:28 ED Decision to Admit Stat 01/07/24 13:40 Consult Motion Picture Set Grip Routine 01/07/24 14:01 Consult Gastroenterology Stat 01/07/24 14:02 Consult General Surgery Stat 01/07/24 15:29 Burn CD for patient Stat Diagnostic Imagining Performed 01/07/24 10:13 CT Abd and Pelvis [CT abd pelvis IV con only] Stat ABDOMEN AND PELVIS CT WITH IV CONTRAST CT DOSE: 1455.7 mGy.cm HISTORY: Acute generalized abdominal pain diffuse pain, vomit TECHNIQUE: Multiaxial CT images of the abdomen and pelvis were performed following the IV administration of 94 cc of Optiray, A dose lowering technique was utilized adhering to the principles of ALARA. COMPARISON STUDY: 12/25/2023 FINDINGS: Mild cardiomegaly. Trace pericardial effusion. Small pleural effusions with mild patchy round glass/consolidative opacities of the basal right lower lobe. No pneumoperitoneum. Spleen is enlarged, 15.6 cm. Hepatomegaly with hepatic steatosis. Cholecystectomy. Unremarkable pancreas and adrenal glands. Cysts of the right kidney measure up to approximately 5 cm. Possible 1.3 cm mural nodule involves a 4.8 cm cyst of the inferior pole right kidney. Small left renal cysts. 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 No hydronephrosis. Decompressed urinary bladder with Cueto catheter. Unchanged appearance of the uterus. Trace pelvic ascites. Atherosclerosis of the aorta. Retroaortic left renal vein. No pathologically enlarged lymph nodes. No bowel obstruction or bowel wall thickening. Colonic diverticulosis. Normal appendix. No acute fracture identified. IMPRESSION: 1. Small pleural effusions with mild right basilar opacities suggestive of pneumonia versus aspiration pneumonitis. 2. No bowel obstruction or bowel wall thickening. 3. Hepatosplenomegaly with hepatic steatosis. 4. Bilateral renal cysts with possible mural nodule involving a cyst of the inferior pole right kidney. Correlation with nonemergent follow-up renal ultrasound recommended. 5. Additional findings as above. ACT 112: Negative or not required by law. The above report was generated using voice recognition software. It may contain grammatical, syntax or spelling errors. Electronically signed by: Pavel Morrissey M.D. 01/07/2024 11:55 AM Pending Results Patient Have Any Pending Studies at Discharge: Yes Discharge Instructions Given to Patient (Per Discharging Provider) PLEASE REFER TO DISCHARGE SUMMARY Total Time Total Time Spent Total Time Spent (In Minutes): 3 hours
--- NOTE | 2024-01-07 19:41 | Electrocardiogram Report ---
Test Reason : Blood Pressure : */* mmHG Vent. Rate : 68 BPM Atrial Rate : 68 BPM P-R Int : * ms QRS Dur : 122 ms QT Int : 456 ms P-R-T Axes : * -9 -4 degrees QTcB Int : 484 ms Normal sinus rhythm Right bundle branch block Abnormal ECG When compared with ECG of 25-Dec-2023 20:18, Vent. rate has decreased by 43 bpm Confirmed by Daniella Partida ([id number]) on 01/07/2024 7:41:29 PM Referred By: REFERRED SELF Confirmed By: Daniella Partida
== END 2024-01-07 17:08 | disposition short-term general hospital (02) | DRG 314 ==
LOC: ED 10:03 → 1E 12:32